=== PATIENT | female | born 1960 | race African-American/Black ===

== ENCOUNTER 2020-04-14 15:10 | Outpatient (CLI) | payer OTHER, SELFPAY ==
--- NOTE | ~2020-04-14 | MM_ITS ---
EXAMINATION: MM screening annie LT w susana HISTORY: Screening left mammogram, history of right mastectomy TECHNIQUE: Craniocaudal and mediolateral oblique 3-D tomosynthesis images were obtained and synthetic 2-D images were generated. CAD analysis was submitted and interpreted. COMPARISON: 01/23/2019, 11/23/2017, 11/30/2016 BREAST PARENCHYMAL COMPOSITION: The breasts are almost entirely fatty. FINDINGS: There are scattered stable calcifications of the left breast. Also seen are biopsy markers indicating areas of prior left breast biopsy. There is no evidence of suspicious mass, calcification, or architectural distortion to suggest malignancy in either breast. There has been no suspicious int erval change. IMPRESSION: 1. No mammographic evidence of malignancy. 2. Recommend routine screening mammography in one year. BI-RADS Category 2: Benign finding(s). Reviewed, dictated and finalized at location A.
--- NOTE | ~2020-04-14 | US_ITS ---
US thyroid INDICATION: Thyroid nodule follow-up TECHNIQUE: Real-time sonographic images of the thyroid gland were obtained. COMPARISON: 01/23/2019 FINDINGS: The right thyroid lobe measures 4.9 x 1.9 x 2.2 cm. The left thyroid lobe measures 4.6 x 1 .7 x 2.4 cm. There is an enlarging heterogeneous predominantly hypoechoic mass in the right lobe cira uring 1.6 x 1.4 x 0.9 cm compared with 1.3 x 1.2 x 0.7 cm on prior examination. This mass is solid, w ider than tall, ill-defined margins and no definite calcifications. There are additional nodules cira uring up to 6 mm in the right lobe and 1 cm in the left lobe which are stable and likely benign. IMPRESSION: 1. Enlargement of dominant hypoechoic mass of the right thyroid lobe measuring 1.6 cm, TR 4, moderat ann marie suspicious. Ultrasound-guided fine-needle aspiration biopsy recommended. Reviewed, dictated and finalized at location A. IMPRESSION: 1. Enlargement of dominant hypoechoic mass of the right thyroid lobe measuring 1.6 cm, TR 4, moderately suspicious. Ultrasound-guided fine-needle aspiration biopsy recommended.
== END 2020-04-14 15:11 | disposition home or self-care (01) ==
PROVIDERS: PCP Family Medicine Adolescent Medicine; Visit Provider Nurse Practitioner
DX: Z12.31 Encounter for screening mammogram for malignant neoplasm of breast (principal); E04.2 Nontoxic multinodular goiter
CPT/HCPCS: 76536; 77063; 77067

== ENCOUNTER → 2020-10-08 14:48 | Outpatient (CLI) | payer OTHER, SELFPAY ==
--- NOTE | ~2020-10-08 | US_ITS ---
EXAMINATION: US renal BI EXAM DATE: 10/08/2020 15:31 INDICATION: disorder of kidney and ureter . Abnormal lab. TECHNIQUE: Multiple grayscale and Doppler images of the kidneys were obtained (by a technologist who performed the scan) and subsequently reviewed. There is no prior study for comparison. FINDINGS: Right kidney: There is normal contour and echogenicity. It measures 9.7 x 3.7 x 5.0 centimeters. Th ere are no focal renal lesions identified. There is no hydronephrosis. Left kidney: There is normal contour and echogenicity. It measures 9.8 x 4.4 x 4.6 centimeters. The re are no focal renal lesions identified. There is no hydronephrosis. Bladder unremarkable. IMPRESSION: 1. Sonographically unremarkable kidneys. Reviewed, dictated and finalized at location B. 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
== END ==
PROVIDERS: PCP Family Medicine Adolescent Medicine; Visit Provider Internal Medicine Endocrinology, Diabetes & Metabolism
DX: N28.9 Disorder of kidney and ureter, unspecified (principal)
CPT/HCPCS: 76775

== ENCOUNTER → 2020-12-06 07:56 | Outpatient (CLI) | payer OTHER, SELFPAY ==
--- NOTE | ~2020-12-06 | US_ITS ---
US transvaginal DATE: 12/06/2020 08:35 INDICATION: Pelvic pain TECHNIQUE: Real-time imaging via transvaginal approach COMPARISON: None FINDINGS: The uterus measures 6.6 cm height. Central endometrial echo complex measures up to 9 mm AP dimension. No ovarian or adnexal mass lesion or abnormal pelvic free fluid collection is evident. IMPRESSION: No significant abnormality demonstrated Reviewed, dictated and finalized at Location A. Reviewed, dictated and finalized at location A. ICER
== END ==
PROVIDERS: PCP Family Medicine Adolescent Medicine; Visit Provider Nurse Practitioner
DX: R10.2 Pelvic and perineal pain (principal)
CPT/HCPCS: 76830

== ENCOUNTER → 2020-12-26 02:23 | Outpatient (CLI) | payer OTHER, SELFPAY ==
[2020-12-26 19:28] LABS: SARS-CoV-2 RNA PCR Negative
== END ==
PROVIDERS: PCP Family Medicine Adolescent Medicine; Visit Provider Obstetrics & Gynecology Gynecology
DX: Z01.812 Encounter for preprocedural laboratory examination (principal); Z20.822 Contact with and (suspected) exposure to COVID-19
CPT/HCPCS: C9803; U0003; U0005

== ENCOUNTER 2020-12-29 01:36 | Day surgery (SDC) | payer OTHER, SELFPAY ==
[2020-12-24 08:23] VITALS: BMI 40.4
--- NOTE | 2020-12-26 14:42 | WPDANESEPPF ---
Anes - Initial Pre Proc Eval Procedure: Operation Date: 12/29/20 07:30 Proposed Procedures p Hysteroscopy, Dilation and Curettage, Excision Vaginal Polyps - Brooke Osborn MD Date/Time: 12/26/20 14:42 Surgeon: Brooke Osborn MD Pre Op Diagnosis: thick endometrium, vaginal polyp Patient Data Age: 60 Gender: F Height: 1.66 m Weight: 112 kg Allergies Allergy/AdvReac Type Severity Reaction Status Date / Time No Known Allergies Allergy Mild Unverified 12/24/20 08:26 Home Medications Medication Instructions Recorded Confirmed Type bupropion HCl 300 mg PO DAILY 12/24/20 12/24/20 History ergocalciferol (vitamin D2) 1,250 mcg PO DAILY 12/24/20 12/24/20 History glimepiride 2 mg PO DAILY 12/24/20 12/24/20 History lisinopril 40 mg PO DAILY 12/24/20 12/24/20 History rosuvastatin 20 mg PO DAILY 12/24/20 12/24/20 History venlafaxine 150 mg PO DAILY 12/24/20 12/24/20 History Patient hx anesthesia problems: none Family hx anesthesia problems: none PMFSH Past Medical History Medical History (Updated 12/26/20 @ 14:42 by Jacinto Carreon DO) Anxiety Depression Diabetes type 2, controlled Hyperlipidemia Hypertension Family History Family History (Updated 12/06/16 @ 10:00 by DOCTOR UNKNOWN) Mother Family history of lung cancer Other Cerebrovascular accident Diabetes mellitus Family history of cardiovascular disease Hypertension Social History Social History Smoking packs per day: 0.5 Smoking cigarettes per day: 10.0 Years smoked: 20 Smoking pack-years: 10.00 Smoking status: Never smoker Smoking end date: 10/10/05 Alcohol intake: current Substance use: never Substance use type: does not use Living arrangements: alone Gender identity (if verbalized by the patient): Female Spiritual care concerns: No Anes - Eval Final PreProcedure Day of Procedure 12/26/20 14:42 Patient weight: morbidly obese Heart: regular rate and rhythm Lungs: clear to auscultation and normal air movement Airway: Mallampati scale class II Neurological: alert and oriented Last oral intake: >/= 8 hours ASA classification: III Emergent: no Anesthetic plan: proceed Anesthesia type and monitoring: general GIVS and standard monitoring Informed Consent: The patient's anesthetic plan and its attendant risks and benefits were discussed with the patient/family/POA. Questions were solicited and answers provided to the satisfaction of the patient/family/POA.
--- NOTE | 2020-12-29 05:54 | ECG_ITS ---
Measurements Intervals [place] Rate: 80 P: 40 HI: 211 QRS: -4 QRSD: 92 T: 66 QT: 373 QTc: 432 Interpretive Statements SINUS RHYTHM WITH FIRST DEGREE AV BLOCK LOW QRS VOLTAGE IN PRECORDIAL LEADS BORDERLINE R WAVE PROGRESSION, ANTERIOR LEADS BASELINE ARTIFACT- I, II, III, AVL ABNORMAL ECG Electronically Signed On 12-29-2020 7:57:22 CDT by Chuck Nava D.O.
[2020-12-29 07:00] VITALS: BP 152/87; PULSE 84; RESP 16; TEMP 36.3; O2SAT 100
[2020-12-29] MEDS: ACETAMINOPHEN 500 MG TABLET 1000 MG PO (07:03)
[2020-12-29] MEDS: LACTATED RINGERS 1,000 ML 30 ML IV CONT (07:04)
--- NOTE | 2020-12-29 07:15 | WPDHPUPDATE1 ---
History and Physical Update Update Date/Time: 12/29/20 07:15 History and Physical has been reviewed, including an updated exam of the patient. There are NO changes in the patient's condition. Risks, benefits, and alternatives have been discussed and questions answered. Patient agrees to proceed with procedure.
--- NOTE | 2020-12-29 07:16 | PM.HPGS ---
History of Present Illness History of Present Illness Consent: Risks, benefits, and alternatives have been discussed and questions answered. Patient agrees to proceed with procedure. Chief complaint: thick endometrium, vaginal polyp Narrative: Gena Pierre is a 60 year old female who was seen at her annual exam and was noted to have vaginal polyp on the left and right approximately fci into the vault. In addition the patient had pain on the right on exam so pelvic ultrasound was performed. The ultrasound showed no adnexal masses but did show the endometrial lining at 9mm. The patient has had no bleeding. Due to the location of the polyps it is recommended to remove them in the operating room due to the risk of bleeding. In addition we will evaluate the thickened endometrial lining with D&C hysteroscopy. Risks of infection, bleeding, perforation, and possible pathology were reviewed. Patient questions were answered and patient agrees to proceed. Review of Systems Review of Systems: Narrative: not repeated day of surgery; patient states no changes in status PMFSH Past Medical History Medical History (Updated 12/29/20 @ 07:21 by Brooke Osborn MD) Anxiety Depression Diabetes type 2, controlled Hyperlipidemia Hypertension Status post hysteroscopy 2004 Surgical History Surgical History (Updated 12/29/20 @ 07:19 by Brooke Osborn MD) S/P right mastectomy s/p chemo Family History Family History (Updated 12/06/16 @ 10:00 by DOCTOR UNKNOWN) Mother Family history of lung cancer Other Cerebrovascular accident Diabetes mellitus Family history of cardiovascular disease Hypertension Social History Social History Smoking packs per day: 0.5 Smoking cigarettes per day: 10.0 Years smoked: 20 Smoking pack-years: 10.00 Smoking status: Never smoker Smoking end date: 10/10/05 Alcohol intake: current Substance use: never Substance use type: does not use Living arrangements: alone Gender identity (if verbalized by the patient): Female Spiritual care concerns: No Meds Home Medications and Allergies Home Medications Medication Instructions Recorded Confirmed Type bupropion HCl 300 mg PO DAILY 12/24/20 12/24/20 History ergocalciferol (vitamin D2) 1,250 mcg PO DAILY 12/24/20 12/24/20 History glimepiride 2 mg PO DAILY 12/24/20 12/24/20 History lisinopril 40 mg PO DAILY 12/24/20 12/24/20 History rosuvastatin 20 mg PO DAILY 12/24/20 12/24/20 History venlafaxine 150 mg PO DAILY 12/24/20 12/24/20 History Allergies Allergy/AdvReac Type Severity Reaction Status Date / Time No Known Allergies Allergy Mild Unverified 12/24/20 08:26 Exam Const: General: healthy appearing and alert Orientation/consciousness: patient oriented x3 Resp: Effort & Inspection: normal respiratory effort Auscultation: clear to auscultation bilaterally Cardio: Rate: regular rate Rhythm: regular rhythm GI: GI Palp: Yes Soft to palpation, No Tenderness to palpation present (GI) and No Palpable mass present : External Female Exam: normal external appearance Speculum Exam - Vagina: normal appearance of the vagina, normal vaginal discharge and other (1.5 cm polyp on left and .5 cm polyp on right wall) Speculum Exam - Cervix: normal appearance of the cervix Bimanual exam- vagina & uterus: uterine size normal and consistency normal Bimanual Exam- Adnexa, other: normal adnexae and No adnexal tenderness (tender on right-mild) Neuro: General: patient oriented x3 Assessment and Plan Assessment and plan (1) Vaginal polyp: Code(s): N84.2 - Polyp of vagina Status: Acute Assessment and Plan: plan excision (2) Thickened endometrium: Code(s): R93.89 - Abnormal findings on diagnostic imaging of other specified body structures Status: Acute Assessment and Plan: plan D&C hysteroscopy
[2020-12-29 07:18] LABS: Glucose Point of Care 157 (65-105)
--- NOTE | 2020-12-29 07:50 | SUR.PREOP ---
BMP SPECIMEN HEMOLYZED; TEST WAIVED BY DR. LERMA. PT BEDSIDE GLUCOSE 157. 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
[2020-12-29 08:12] VITALS: BP 137/74; PULSE 88; RESP 16; O2SAT 92
--- NOTE | 2020-12-29 08:17 | P.OP_ITS ---
Procedure Note - Detailed Date of procedure: 12/29/20 Pre-op diagnosis: thick endometrium, vaginal polyp Post-op diagnosis: same Procedure performed: excision of vaginal polyps x 2; D&C hysteroscopy Description of procedure: The patient was taken to the operating room and placed in the dorsal lithotomy position under anesthesia. She was prepped and draped in usual sterile fashion. [place] speculum was placed in the vagina. The right vaginal polyp was grasped with a pickup and excised using Bovie cautery. The left vaginal polyp was grasped with forceps and excised using Bovie cautery. Good hemostasis was noted at both sites. The cervix was grasped on the anterior lip with a tenaculum. The sound was placed and not able to enter past 3cm. The os Finders are opened and used to open the internal cervical os. The cervix is serially dilated with Hegar. The uterus is sounded to 8cm. The hysteroscope was placed with no abnormalities noted. A medium sharp curette was used to sharply curette until a good uterine cry was noted in all areas. Minimal material was obtained consistent with the atrophic appearance. All instruments are removed and the patient is awakened from anesthesia. She was taken to recovery in stable condition. Sponge, needle, and instrument counts are correct per the OR staff. Anesthesia: MAC and local Surgeon: Brooke Osborn MD Estimated blood loss (mL): 5 Drains: No Packing: No Pathology: yes (polyps-larger from right; endometrial curettings) Complications: No immediate complications Condition: stable Disposition: PACU Findings: papillary polyp Right vaginal sidewall; flat polyp left vaginal sidewall; cervix very stenotic; no abnomalities on hysteroscopy
[2020-12-29 08:33] LABS: Glucose Point of Care 139 (65-105)
[2020-12-29 08:40] VITALS: BP 134/77; PULSE 83; RESP 16; O2SAT 95
[2020-12-29] MEDS: oxyCODONE HCL (*CRX) 5 MG TAB IR PO (08:40)
[2020-12-29 09:10] VITALS: BP 143/69; PULSE 79; RESP 16
== END 2020-12-29 09:17 | disposition home or self-care (01) ==
PROVIDERS: PCP Family Medicine Adolescent Medicine; Visit Provider Obstetrics & Gynecology Gynecology
PROC: 0U5B8ZZ Destruction of Endometrium, Via Natural or Artificial Opening Endoscopic (ICD-10-PCS; CPT 58563; principal; 2020-12-29 07:30)
DX: N84.2 Polyp of vagina (principal); I10 Essential (primary) hypertension; E78.5 Hyperlipidemia, unspecified; E11.9 Type 2 diabetes mellitus without complications; F41.8 Other specified anxiety disorders; Z87.891 Personal history of nicotine dependence; E66.01 Morbid (severe) obesity due to excess calories; Z68.39 Body mass index [BMI] 39.0-39.9, adult; Z79.84 Long term (current) use of oral hypoglycemic drugs
CPT/HCPCS: 58558; 57135; 36415; 82948; 88305; 93005; A9270; C9803; J2704; J3010; J7030; J7120; U0003; U0005

== ENCOUNTER → 2021-01-10 11:20 | Outpatient (CLI) | payer OTHER, SELFPAY ==
--- NOTE | ~2021-01-10 | US_ITS ---
EXAMINATION: US renal BI DATE: 01/10/2021 11:40 INDICATION: Chronic kidney disease stage III. TECHNIQUE: Multiple ultrasound grayscale images of the kidneys were obtained. COMPARISON: Ultrasound 10/08/2020 FINDINGS: The right kidney measures 9.0 x 4.2 x 5.0 cm. The left kidney measures 9.2 x 4.9 x 5.0 cm. The kidney s demonstrate normal parenchymal echogenicity. There is no hydronephrosis. The bladder is normal. IMPRESSION: 1. Normal kidneys. No hydronephrosis. Reviewed, dictated and finalized at location A.
== END ==
PROVIDERS: PCP Family Medicine Adolescent Medicine; Visit Provider Specialist
DX: N18.30 Chronic kidney disease, stage 3 unspecified (principal)
CPT/HCPCS: 76775

== ENCOUNTER → 2021-04-25 10:20 | Outpatient (CLI) | payer OTHER, SELFPAY ==
--- NOTE | ~2021-04-25 | MM_ITS ---
EXAMINATION: MM screening annie LT w susana HISTORY: Screening left mammogram, history of right mastectomy TECHNIQUE: Craniocaudal and mediolateral oblique 3-D tomosynthesis images were obtained and synthetic 2-D images were generated. CAD analysis was submitted and interpreted. COMPARISON: 04/14/2020, 01/23/2019, 11/23/2017 BREAST PARENCHYMAL COMPOSITION: The breasts are almost entirely fatty. FINDINGS: Scattered benign-appearing calcifications are present. There is no evidence of suspicious m ass, calcification, or architectural distortion to suggest malignancy in either breast. There has bee n no suspicious interval change. IMPRESSION: 1. No mammographic evidence of malignancy. 2. Recommend routine screening mammography in one year. BI-RADS Category 2: Benign finding(s). Reviewed, dictated and finalized at location A.
== END ==
PROVIDERS: PCP Family Medicine Adolescent Medicine; Visit Provider Nurse Practitioner
DX: Z12.31 Encounter for screening mammogram for malignant neoplasm of breast (principal)
CPT/HCPCS: 77063; 77067

== ENCOUNTER → 2022-05-01 07:50 | Outpatient (CLI) | payer OTHER, SELFPAY ==
--- NOTE | ~2022-05-01 | MM_ITS ---
EXAMINATION: MM screening annie LT w susana HISTORY: Screening TECHNIQUE: Craniocaudal and mediolateral oblique 3-D tomosynthesis images were obtained and synthetic 2-D images were generated. CAD analysis was submitted and interpreted. COMPARISON: Comparison to multiple prior studies sequentially, with oldest reviewed study dated 11/23. BREAST PARENCHYMAL COMPOSITION: Breast composed of scattered areas of fibroglandular density FINDINGS: Left breast asymmetries are unchanged. There are tissue markers from previous benign biopsi es. There is no evidence of suspicious mass, calcification, or architectural distortion to suggest ma lignancy in either breast. There has been no suspicious interval change. IMPRESSION: 1. No mammographic evidence of malignancy. 2. Recommend routine screening mammography in one year. BI-RADS Category 2: Benign finding(s). Reviewed, dictated and finalized at location A.
== END ==
PROVIDERS: PCP Family Medicine Adolescent Medicine; Visit Provider Nurse Practitioner
DX: Z12.31 Encounter for screening mammogram for malignant neoplasm of breast (principal)
CPT/HCPCS: 77063; 77067

== ENCOUNTER 2022-06-04 08:01 | Outpatient (CLI) | payer OTHER, SELFPAY ==
--- NOTE | ~2022-06-04 | NM_ITS ---
EXAMINATION: NM parathyroid w imaging DATE: 06/04/2022 12:17 INDICATION: Primary hyperparathyroidism. TECHNIQUE: 21.5 mCi Tc99m sestamibi was administered intravenously. Anterior images of the neck were obtained immediately and at 2 hours. SPECT images of the neck were obtained. COMPARISON: None. FINDINGS: There is no focus of persistent activity in the area of the thyroid or mediastinum to sugge st parathyroid adenoma. IMPRESSION: 1. No evidence of a parathyroid adenoma. Reviewed, dictated and finalized at location A.
== END 2022-06-04 08:02 | disposition home or self-care (01) ==
PROVIDERS: PCP Family Medicine Adolescent Medicine; Visit Provider Internal Medicine Nephrology
DX: E21.0 Primary hyperparathyroidism (principal)
CPT/HCPCS: 78070; A9500

== ENCOUNTER → 2022-09-10 15:00 | Outpatient (CLI) | payer OTHER, SELFPAY ==
--- NOTE | ~2022-09-10 | DEXA_ITS ---
Bone Density Report Name: LIAM VILLAFANA Age: 62 Sex: Female Ethnicity: Black Date of : 1960 Indication: postmenopausal; screening for osteoporosis; Referring Provider: Tami He Study: Bone densitometry was performed. Exam Date: September 10, 2022 Accession number: [id number] Bone Density: Region BMD T-score Z-score Classification AP Spine (L1-L4) 1.119 0.7 1.5 Normal Femoral Neck (Left) 0.741 -1.0 -0.3 Normal Total Hip (Left) 0.933 -0.1 0.3 Normal Femoral Neck (Right) 0.715 -1.2 -0.5 Osteopenia Total Hip (Right) 0.959 0.1 0.4 Normal Total Hip Mean 0.946 0.0 0.4 Normal World Health Organization criteria for BMD impression classify patients as: Normal (T-score at or above -1.0), Osteopenia (T-score between -1.0 and -2.5), or Osteoporosis (T-score at or below -2.5). 10-year Fracture Risk(1): Major Osteoporotic Fracture 3.2% Hip Fracture 0.2% Reported Risk Factors: [place] (Black), Neck BMD=0.715, BMI=39.1 (1) FRAX(R) Version 3.08. Fracture probability calculated for an untreated patient. Fracture probability may be lower if the patient has received treatment. Previous Exams: Region Exam Age BMD T-score BMD Change BMD Change Date g/cm2 vs Baseline vs Previous AP Spine(L1-L4) 09/10/2022 62 1.119 0.7 -0.132* -0.104* 01/23/2019 58 1.223 1.6 -0.029* -0.035* 11/15/2014 54 1.258 1.9 0.006 -0.012 08/21/2012 51 1.269 2.0 0.018 0.018 02/23/2008 47 1.251 1.9 Total Hip(Left) 09/10/2022 62 0.933 -0.1 -0.090* -0.094* 01/23/2019 58 1.027 0.7 0.004 -0.084* 11/15/2014 54 1.111 1.4 0.088* -0.004 08/21/2012 51 1.115 1.4 0.092* 0.092* 02/23/2008 47 1.023 0.7 Total Hip(Right) 09/10/2022 62 0.959 0.1 -0.052* -0.090* 01/23/2019 58 1.049 0.9 0.039* -0.058* 11/15/2014 54 1.107 1.4 0.097* 0.013 08/21/2012 51 1.094 1.2 0.084* 0.084* 02/23/2008 47 1.010 0.6 *Denotes significance at 95% confidence level, LSC for AP Spine = 0.022 g/cm2, LSC for Total Hip = 0.027 g/cm2 Clinical Information Provided by Patient: Has used the following medications: Vitamin D Patient maximum height was 65.5 Menopause Age: 48 No regular weight bearing exercise Does not regularly consume dairy products Onset of menses at age 10 Number
--- NOTE | ~2022-09-10 | US_ITS ---
US thyroid INDICATION: Nontoxic thyroid goiter TECHNIQUE: Real-time sonographic images of the thyroid gland were obtained. COMPARISON: Ultrasound dated 04/14/2020 FINDINGS: The right thyroid lobe measures 4.6 x 2.2 x 2.5 cm. The left thyroid lobe measures 5.2 x 2 x 2 cm. There is diffusely heterogeneous thyroid echotexture with bilateral thyroid nodules. Largest dominant nodule in the right lobe measures 1.9 x 1.5 x 1.8 cm is mixed solid and cystic, hypoechoic, wider than tall, smoothly marginated without internal echogenic foci, TR 3, mildly suspicious. This does not meet sonographic criteria for biopsy. Recommend follow-up ultrasound in 12 months. Isthmus m easures 9 mm. In the left lobe there is a solid hypoechoic mass which is wider than tall, irregular m argins measuring 10 x 7 x 8 mm, TR 4. This does not meet sonographic criteria for biopsy. Recommend f ollow-up ultrasound. IMPRESSION: 1. Multiple bilateral thyroid nodules which do not meet sonographic criteria for biopsy. Recommend f ollow-up ultrasound in 6-12 months to assess stability. 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 Multiple bilateral thyroid nodules which do not meet sonographic criteria f or biopsy. Recommend follow-up ultrasound in 6-12 months to assess stability.
== END ==
PROVIDERS: PCP Family Medicine Adolescent Medicine; Visit Provider Internal Medicine Endocrinology, Diabetes & Metabolism
DX: E21.0 Primary hyperparathyroidism (principal); E04.2 Nontoxic multinodular goiter; M85.851 Other specified disorders of bone density and structure, right thigh
CPT/HCPCS: 76536; 77080

== ENCOUNTER 2023-03-30 16:58 | Inpatient (IN) | payer OTHER, SELFPAY ==
[2023-03-30] VITALS (9 sets, daily range): BP systolic 157–187; BP diastolic 74–107; PULSE 91–109; RESP 15–21; TEMP 36.3–37.3; O2SAT 99–100; BMI 37.2
--- NOTE | ~2023-03-30 | CT_ITS ---
EXAMINATION: CT brain wo con DATE: 03/30/2023 19:07 INDICATION: fall, head trauma . TECHNIQUE: Computed tomography (CT) of the head was performed without intravenous contrast. The mA wa s adjusted according to patient size. Iterative reconstruction technique was employed. The dose-lengt h product was 605.33 mGy-cm. COMPARISON: None. FINDINGS: No acute intracranial hemorrhage or extra-axial fluid collection. No hydrocephalus, mass, or herniation. No acute ischemic infarct. Unremarkable dural venous sinus attenuation. No acute osseous abnormality. The aerated spaces are clear. Mild atrophy and moderate chronic white matter change. Atherosclerotic intracranial calcification. Ol d left basal ganglia lacunar infarct. IMPRESSION: No acute intracranial process. Reviewed, dictated and finalized at location K.
--- NOTE | ~2023-03-30 | XR_ITS ---
EXAMINATION: XR chest 2V Exam Date/Time: 03/30/2023 19:05 CDT HISTORY: falls, SAYS SHE HAS BEEN FALLING ALOT LATELY WITH LEG Comparison: . RESULT: Lines, tubes, and devices: Right axillary clips. Lungs and pleura: Clear. Cardiomediastinal silhouette: Unremarkable. Other: Mild anterior wedge deformity of multiple mid thoracic vertebral bodies. No acute upper abdom inal finding. Right mastectomy. IMPRESSION: No acute cardiopulmonary process. Very mild anterior wedge deformity of multiple mid thoracic vertebr al bodies, presumably chronic, unless accompanied by acute pain/tenderness. Reviewed, dictated and finalized at location K. IMPRESSION: No acute cardiopulmonary process. Very mild anterior wedge deformity of multipl e mid thoracic vertebral bodies, presumably chronic, unless accompanied by acut e pain/tenderness.
--- NOTE | ~2023-03-30 | XR_ITS ---
Portable chest x-ray Comparison: 04/01/2023 Clinical History: Acute renal sufficiency Findings: Lungs are clear, without focal consolidation or pleural effusion. Cardiomediastinal silho uette is stable. Bones and soft tissues are unremarkable. Impression: Normal chest. Reviewed, dictated and finalized at location . Impression: Normal chest.
--- NOTE | ~2023-03-30 | XR_ITS ---
XR chest port-a-cath/central DATE: 04/13/2023 16:33 INDICATION: Insertion of Duraflow permacath TECHNIQUE: Portable supine AP view on 04/13/2023 at 1610 hours COMPARISON: 04/13/2023 chest Port-A-Cath FINDINGS: Right internal jugular dual-lumen catheter, lower tip overlying superior vena cava. No evid ence of pneumothorax. There is cardiomegaly. Is pulmonary vascular congestion. Mild bilateral predominantly central pulmona ry infiltrates suggesting pulmonary edema. Mild prominence of the minor fissure suggesting subpleural edema. There is left lower lobe infiltrate or atelectasis, minimal right basilar infiltrate or atele ctasis. There is minimal if any pleural effusion. Surgical clips overlie the right axillary area; the right breast shadow is not seen. IMPRESSION: Right internal jugular Duraflow catheter placement, lower tip overlying superior vena cav a Cardiomegaly, congestive changes Reviewed, dictated and finalized at Location A. Reviewed, dictated and finalized at location A. IMPRESSION: Right internal jugular Duraflow catheter placement, lower tip overl osmin superior vena cava Cardiomegaly, congestive changes
--- NOTE | ~2023-03-30 | MR_ITS ---
EXAMINATION: MR shoulder LT wo con DATE: 03/31/2023 16:09 INDICATION: Left shoulder pain, weakness and decreased range of motion TECHNIQUE: Magnetic resonance imaging (MRI) of the left shoulder was performed without intravenous co ntrast. Sequences included axial PD-weighted FS FSE, coronal oblique PD-weighted FS FSE, coronal obli que T2-weighted FS FSE, sagittal PD-weighted FS FSE, and sagittal T1-weighted SE. COMPARISON: Left shoulder radiograph dated 03/30/2023 FINDINGS: Evaluation mildly limited by varying amounts of motion artifact or blurring on multiple sequences. Coracoacromial arch: The acromion undersurface is curved in morphology (type II). Small to moderate-sized anterior subacro mial spur at the acromial insertion of the otherwise normal coracoacromial ligament. Moderate acromio clavicular osteoarthritis. Rotator cuff: Mild supraspinatus tendinopathy without discrete tear. The subscapularis, infraspinatus and teres min or tendons are normal. There is subtle patchy increased fluid signal throughout the rotator cuff musc ulature, the deltoid muscle and at the short head of the biceps brachii. Biceps tendon, glenoid labrum and glenohumeral cartilage: Long head of the biceps tendon is normal. The glenoid labrum and glenohumeral cartilage are normal.. Fluid: Physiologic amount of fluid in the glenohumeral joint and biceps tendon sheath. No loose osteochondr al bodies. Small amount of fluid in the subacromial/subdeltoid bursa suboptimal due to mild bursitis or reactive fluid related to the adjacent muscular edema of the underlying rotator cuff musculature. Bones: Normal marrow signal with no edema, fracture or abnormal marrow replacing process. IMPRESSION: 1. Nonspecific subtle patchy increased fluid signal in the musculature of the right shoulder girdle w hich has a wide differential. The reported history of an extended period of being down post fall resu lting possibility of rhabdomyolysis. Differential would include post traumatic muscle strain, contusi on or other nonspecific myositis. 2. Mild supraspinatus tendinopathy without discrete tear. 3. Increased fluid in the subacromial/subdeltoid bursa which could be due to mild bursitis or reactiv e fluid related to the underlying myopathy. 4. Moderate acromioclavicular osteoarthritis. Reviewed, dictated and finalized at location A. IMPRESSION: 1. Nonspecific subtle patchy increased fluid signal in the musculature of the r ight shoulder girdle which has a wide differential. The reported history of an extended period of being down post fall resulting possibility of rhabdomyolysis . Differential would include post traumatic muscle strain, contusion or other n onspecific myositis. 2. Mild supraspinatus tendinopathy without discrete tear. 3. Increased fluid in the subacromial/subdeltoid bursa which could be due to mi ld bursitis or reactive fluid related to the underlying myopathy. 4. Moderate acromioclavicular osteoarthritis.
--- NOTE | ~2023-03-30 | MR_ITS ---
EXAMINATION: MR brain/brain stem wo con DATE: 04/10/2023 07:42 INDICATION: 8 hours of unconsciousness TECHNIQUE: Magnetic resonance imaging (MRI) of the brain and brainstem was performed without intraven ous contrast. Sequences included sagittal and axial T1-weighted SE, axial diffusion-weighted FS SE, a xial 3D SWAN, axial T2-weighted FLAIR, and axial T2-weighted FSE. Apparent diffusion coefficient (ADC ) maps were created. COMPARISON: Head CT dated 03/30/2023 FINDINGS: There are no areas of restricted diffusion to suggest acute infarction. No intracranial hemorrhage or abnormal intracranial mass lesion. There are scattered areas of nonspecific increased T2-weighted si gnal intensity in the cerebral and pontine white matter, predominantly involving the deep and periven tricular white matter. There are no intraparenchymal signal abnormalities seen on the other pulse seq uences. The ventricles are symmetric and normal in size. There are no abnormal extra-axial fluid flora ections. Flow voids are seen in the cerebral arteries on the T2-weighted sequences consistent with th eir expected patency. Visualized orbits and soft tissues are unremarkable. IMPRESSION: 1. Moderate scattered nonspecific periventricular predominant white matter T2 hyperintensity likely r elated to chronic small vessel ischemic disease. No other acute intracranial process. Reviewed, dictated and finalized at location A. IMPRESSION: 1. Moderate scattered nonspecific periventricular predominant white matter T2 h yperintensity likely related to chronic small vessel ischemic disease. No other acute intracranial process.
--- NOTE | ~2023-03-30 | US_ITS ---
US renal BI 03/31/2023 16:21 Procedure: Realtime transabdominal ultrasound of the kidneys and bladder. Indication: Acute renal insufficiency Comparison: 01/11/2020 Findings: Renal echotexture is normal bilaterally without hydronephrosis, contour deforming mass or r enal calculus. The right kidney measures 10.4 cm and left kidney measures 10 cm. Bladder is decompres sed by [place] catheter. Impression: 1: Unremarkable renal ultrasound. No stones, masses or hydronephrosis. Reviewed, dictated and finalized at location L. Impression: 1: Unremarkable renal ultrasound. No stones, masses or hydronephrosis.
--- NOTE | ~2023-03-30 | XR_ITS ---
EXAMINATION: XR fl guide central line place DATE: 04/03/2023 INDICATION: Hemodialysis catheter insertion TECHNIQUE: Single fluoroscopic image of the lateral chest was obtained during procedure performed by Dr. Man. Radiologist was not present for the imaging or procedure. The amount of fluoroscopy time us ed during this procedure was 0.1 minutes. COMPARISON: None. FINDINGS/IMPRESSION: RIGHT central venous access with a catheter or wire advanced to the right atrium. Reviewed, dictated and finalized at location A.
--- NOTE | ~2023-03-30 | XR_ITS ---
Portable chest x-ray Comparison: 04/02/2023 Clinical History: Line placement Findings: Right-sided central venous line is in satisfactory position. No pneumothorax. Probable pb cified right upper lobe granulomas. Lungs are otherwise clear, without focal consolidation or pleural effusion. Cardiomediastinal silhouette is stable. Bones and soft tissues are unremarkable. Impression: Right-sided support line in satisfactory position, as above. No pneumothorax. Essentially clear lungs. Reviewed, dictated and finalized at location M. Impression: Right-sided support line in satisfactory position, as above. No pneumothorax. Essentially clear lungs.
--- NOTE | ~2023-03-30 | XR_ITS ---
EXAMINATION: XR chest 1V portable 04/01/2023 08:57 INDICATION: Acute renal insufficiency PROCEDURE: AP portable chest COMPARISON: 03/31/2023 FINDINGS: The lungs are clear. The cardiomediastinal silhouette is within normal limits. There are no pleural effusions. There is no pneumothorax suspected. There are surgical clips consistent with right axillary lymph node dissection. IMPRESSION: 1: NO ACUTE CARDIOPULMONARY DISEASE. Reviewed, dictated and finalized at location []
--- NOTE | ~2023-03-30 | XR_ITS ---
EXAMINATION: XR fl guide central line place DATE: 04/13/2023 15:14 INDICATION: Central line placement. TECHNIQUE: 2 intraoperative fluoroscopic views of the chest were obtained. I was not present. Fluoros copy exposure time was 8 seconds. COMPARISON: Chest single view 04/03/2023 FINDINGS: There is a right internal jugular central venous catheter with tip at superior cavoatrial j unction. There are surgical clips in right axilla. IMPRESSION: 1. Central line tip at superior cavoatrial junction. Reviewed, dictated and finalized at location A.
--- NOTE | ~2023-03-30 | XR_ITS ---
EXAMINATION: XR chest 1V 03/31/2023 16:07 INDICATION: Acute renal insufficiency PROCEDURE: 2 view chest COMPARISON: 03/30/2023 FINDINGS: The lungs are clear. The cardiomediastinal silhouette is within normal limits. There are no pleural effusions. There is no pneumothorax suspected. There are surgical clips in the right axi lla. IMPRESSION: 1: NO ACUTE CARDIOPULMONARY DISEASE. Reviewed, dictated and finalized at location L.
--- NOTE | ~2023-03-30 | XR_ITS ---
EXAM: XR shoulder LT min 2V DATE: 03/30/2023 21:09 HISTORY: left pain/weakness . COMPARISON: None available. FINDINGS: Decreased mineralization. No fracture or dislocation. No lytic or blastic lesion. Moderate AC joint and mild glenohumeral joint osteoarthritis. No erosion or periosteal change. Soft tissues w ithin normal limits. IMPRESSION: No acute osseous finding in the left shoulder. Reviewed, dictated and finalized at location K.
--- NOTE | ~2023-03-30 | CT_ITS ---
EXAMINATION: CT cervical spine wo con DATE: 03/30/2023 19:23 INDICATION: fall TECHNIQUE: Computed tomography (CT) of the cervical spine was performed without intravenous contrast. Automated exposure control and iterative reconstruction technique were employed. The dose-length pro duct was 330.26 mGy-cm. COMPARISON: None. FINDINGS: Vertebral Body Alignment: Intact. Craniocervical and atlantoaxial alignment: Moderate degenerative change. Alignment intact. Osseous structures/fracture: No evidence of a lytic or blastic process in the visualized spine. No e vidence of acute fracture. . Cervical soft tissues: The paraspinal soft tissues planes are maintained. Degenerative changes: Degenerative changes, without severe neural foraminal or central canal narrowin g. IMPRESSION: No acute fracture or traumatic malalignment in the cervical spine. Multiple sub-6 mm pulmonary nodule s, recommend nonemergent outpatient low-dose noncontrast CT of the chest to evaluate the lungs in the ir entirety. Reviewed, dictated and finalized at location K. IMPRESSION: No acute fracture or traumatic malalignment in the cervical spine. Multiple sub -6 mm pulmonary nodules, recommend nonemergent outpatient low-dose noncontrast CT of the chest to evaluate the lungs in their entirety.
--- NOTE | 2023-03-30 17:52 | ECG_ITS ---
Measurements Intervals [place] Rate: 103 P: 44 SC: 184 QRS: 3 QRSD: 92 T: 80 QT: 325 QTc: 427 Interpretive Statements SINUS TACHYCARDIA POSSIBLE LEFT ATRIAL ENLARGEMENT [-0.1mV P-WAVE IN V1/V2] NONSPECIFIC ST & T-WAVE ABNORMALITY ABNORMAL RHYTHM ECG COMPARED TO ECG 12/29/2020 07:30:41 SINUS TACHYCARDIA NOW PRESENT T-WAVE ABNORMALITY NOW PRESENT Electronically Signed On 03-30-2023 20:01:56 CDT by Bethany Lugo M.D.
--- NOTE | 2023-03-30 18:10 | ED.WEAKNESS ---
HPI - Weakness General Chief complaint: Weakness Stated complaint: Unable to stand and walk. Time Seen by Provider: 03/30/23 18:10 History of Present Illness HPI Narrative: Patient is a 62-year-old female with a history of hypertension, diabetes, hyperlipidemia, CKD presenting after a couple of falls. Patient lives at home alone. Her family is at bedside who is assisting with the history. States that she had a fall 2 days ago and she did strike her head. States that she lost consciousness at this time. Patient then had another fall yesterday afternoon. States that she was leaning down to bulk picker some ice when she lost her balance. States that she fell to the floor and she was unable to get up due to weakness. States she was able to drag herself to her couch and was eventually able to send a text to her family approximately 18 hours after falling. Patient states that she feels very thirsty. She denies headache, vision changes, focal numbness or weakness, chest pain, shortness of breath, cough, abdominal pain, nausea or vomiting, diarrhea, dysuria, leg swelling. Related Data Home Medications Medication Instructions Recorded Confirmed labetalol 200 mg tablet 200 mg PO Q12H 08/26/22 03/30/23 Allergies Allergy/AdvReac Type Severity Reaction Status Date / Time niacin AdvReac Unknown flushing Verified 03/30/23 18:33 Review of Systems Review of Systems: All systems reviewed & are unremarkable except as noted in HPI and below PMFSH Past Medical History Medical History Anxiety Depression HX: breast cancer (2004) 2004 Hypertension Normal colonoscopy 07/20 Vaginal polyp Surgical History Surgical History History of hysteroscopy 2020 S/P right mastectomy s/p chemo Family History Family History Mother Family history of lung cancer Hypertension Grandparent Cerebrovascular accident Diabetes mellitus Hypertension Son Family history of cardiovascular disease Heart disease Hypertension Father Hypertension Social History Social History Smoking packs per day: 0.5 Smoking cigarettes per day: 10.0 Years smoked: 20 Smoking pack-years: 10.00 Smoking status: Former smoker Tobacco type: cigarettes Second hand tobacco smoke exposure: Yes Smoking end date: 10/10/05 Alcohol intake: never Alcohol use details: Very seldom Substance use: never Substance use type: does not use Lack of Transportation: No Lack of Food: Never True Current Housing: I Have Housing Concerned About Future Housing: No Difficulty Paying Gas/Electric Bills: No Difficulty Paying for Meds: No Currently Unemployed: No Education: High School Diploma/GED Difficulty w/ Childcare or Family Care: No Living arrangements: alone Occupation/Education: occupation Gender identity (if verbalized by the patient): Female Sexual Orientation (if Verbalized by the Patient): Straight or Heterosexual Spiritual care concerns: No Agree to blood products: Yes Exam Narrative: GENERAL: Well-appearing, well-nourished, and in no acute distress. Pleasant and cooperative HEAD: Normocephalic, atraumatic. EYES: PERRLA and EOMI. ENT: Nares clear, no rhinorrhea or epistaxis. Mucous membranes dry NECK: Supple. CHEST: Clear to auscultation. No respiratory distress. HEART: Tachycardic, regular rhythm, normal peripheral pulses ABDOMEN: Soft, nontender, nondistended EXTREMITIES: Normal range of motion. No edema. SKIN: Warm, dry, no rash. NEURO: No focal deficits. Alert and oriented x3. 5 out of 5 strength in all extremities, no sensory deficits, no facial droop, no dysarthria or aphasia PSYCH: Normal mood and affect. Course Vital Signs Vital signs: Vital Signs Tempera
[2023-03-30 18:35] LABS: Hemoglobin 14.4 g/dL (12.0-15.0); Mean Corpuscular Hemoglobin 28.8 pg (26-34); Mean Platelet Volume 10.4 fl (7.4-10.4); Platelet Count Result 287 k/mm3 (150-375); Red Cell Distribution Width 13.9 % (11.5-14.5); White Blood Count 21.6 K/mm3 (4.5-10.0)
[2023-03-30 18:48] LABS: Appearance Urine Cloudy (Clear); Bacteria Urine None Seen /hpf; Bilirubin Urine Negative (Negative); Blood Urine 3+ (Negative); Color Urine Dark Yellow (Yellow); Glucose Urine UA Trace mg/dL (Negative); Hyaline Casts Urine Present /lpf; Ketones Urine Trace mg/dL (Negative); Leukocyte Esterase Ur Trace LEU/UL (Negative); Nitrate Urine Negative (Negative); Protein Urine 3+ mg/dL (Negative); RBC Urine 0-2 /hpf (0-2); Specific Grav Ur 1.014 (1.001-1.035); Squamous Epithelial Cell Urine Few /hpf (Few); WBC Urine 0-5 /hpf; pH Urine 5.5 (5.0-9.0)
[2023-03-30 18:49] LABS: Add Urine Microscopic? YES
[2023-03-30] MEDS: SODIUM CHLORIDE 0.9% IV 1,000 ML 999 ML IV CONT ×2 (19:00→19:32)
[2023-03-30 19:05] LABS: Band Neutrophils Percent 2 % (0-6); Lymphocytes Absolute Manual 0.86 K/mm3 (1.1-4.5); Neutrophils Absolute Manual 20.73 K/mm3 (1.7-7.2); Neutrophils Percent Manual 94 % (46-73); Total Cells Counted 100
[2023-03-30 19:06] LABS: Platelet Estimate Adequate (Adequate); Schistocytes None Seen (NORMAL)
[2023-03-30 19:09] LABS: Alanine Aminotransferase 244 U/L (6-35); Albumin Level 4.6 g/dL (3.5-5.1); Alkaline Phosphatase 93 U/L (38-126); Anion Gap 12 mmol/L (8-16); Blood Urea Nitrogen 44 mg/dL (7-17); Calcium 11.5 mg/dL (8.4-10.2); Carbon Dioxide 19 mmol/L (22-30); Chloride 106 mmol/L (98-107); Estimated CRCL calculation 15 ml/min; Estimated Glomerular Filt Rate 13; Glucose 270 mg/dL (65-110); Potassium 4.4 mmol/L (3.4-5.0); Sodium 137 mmol/L (137-145)
[2023-03-30 19:18] LABS: Prothrombin Time 13.6 Seconds (11.1-14.7)
[2023-03-30 19:25] LABS: Lactic Acid Reflex 1.9 mmol/L (0.7-2.0)
[2023-03-30 19:28] LABS: Aspartate Amino Transferase 835 U/L (14-36)
[2023-03-30 19:28] LABS: Lipase 73 U/L (23-300); Magnesium 2.6 mg/dL (1.6-2.3)
[2023-03-30 19:45] LABS: Troponin I 0.055 ng/mL (0.000-0.034)
[2023-03-30] MEDS: LABETALOL HCL INJ 100 MG/20 ML VIAL 20 MG IV PUSH ×2 (19:50→20:51)
[2023-03-30 20:00] LABS: Creatine Kinase > 16000 U/L (30-135)
--- NOTE | 2023-03-30 22:10 | ADMGEN ---
This patient, Gena Pierre, was admitted to IMU Room 209-. Patient/family oriented to hospital policies and general routines including ID bracelet, bed and alarms, visiting hours, pain management, procedures, bathroom and other care routines, personal items, smoking policy, room service/diet, and visiting hours. Information on how to activate the Rapid Response Team has been discussed. Patient/Family are encouraged to report perceived risks to care and to ask questions if they do not understand what they are told or what they should do.
--- NOTE | 2023-03-30 22:11 | PM.IMHP ---
H&P: HPI History of Present Illness Date/Time: 03/30/23 22:11 Chief Complaint: Loss of consciousness and weakness Narrative: Patient is a 62-year-old female with past medical history of hypertension and diabetes coming in for loss of consciousness and weakness of 1 day duration. Patient said that on Tuesday patient had loss of consciousness. Patient remembers waking up in the morning and when she came to it was already at night. She does not remember any events leading to her loss of consciousness. She denies any headache, fever, chest pain, abdominal pain, bladder or bowel incontinence. She denies any history of seizures in the past. She does not remember any tonic clonic activity. Patient said that on Tuesday morning when she woke up she tried to reach for something but fell on the floor and was unable to get up. She used her arms to scoot on the floor and ask for help. Patient says she has diabetes but does not usually check her blood sugars. She does not recall any recent hypoglycemic episodes. She said she takes her blood pressure medications regularly although her blood pressure was elevated to 186 on initial presentation to the ER. She said she is still able to urinate without difficulty. She has no known focal deficits. In the ER patient had imaging of her head which was negative for any acute lesions. She had creatinine over 4 which is new, her last creatinine was 1.5 in December 2021. She denies any chest pain, numbness, focal deficits, or any known sick contacts. She denies any tobacco, alcohol or drug use. She said she stopped smoking about 20 years ago. Review of Systems Review of Systems: no fever or weight loss no vision changes, no eye discharge no throat pain, no hoarseness, no lymphadenopathy no chest pain, no palpitations no coughing, no wheezing no abdominal pain, no diarrhea, no nausea, no vomiting no dysuria, no vaginal discharge no leg swelling, no edema no suicidal or homicidal ideation PMFSH Past Medical History Medical History Anxiety Depression HX: breast cancer (2004) 2004 Hypertension Normal colonoscopy 07/20 Vaginal polyp Surgical History Surgical History History of hysteroscopy 2020 S/P right mastectomy s/p chemo Family History Family History Mother Family history of lung cancer Hypertension Grandparent Cerebrovascular accident Diabetes mellitus Hypertension Son Family history of cardiovascular disease Heart disease Hypertension Father Hypertension Social History Social History Smoking packs per day: 0.5 Smoking cigarettes per day: 10.0 Years smoked: 20 Smoking pack-years: 10.00 Smoking status: Never smoker Tobacco type: cigarettes Second hand tobacco smoke exposure: Yes Smoking end date: 10/10/05 Alcohol intake: current Alcohol use details: Very seldom Substance use: never Substance use type: does not use Living arrangements: alone Occupation/Education: occupation Gender identity (if verbalized by the patient): Female Sexual Orientation (if Verbalized by the Patient): Straight or Heterosexual Spiritual care concerns: No Agree to blood products: Yes Meds Home Medications and Allergies Home Medications Medication Instructions Recorded Confirmed Type labetalol 200 mg tablet 200 mg PO Q12H 08/26/22 03/30/23 History bupropion HCl 300 mg 24 hr tablet, 300 mg PO DAILY #90 tabs 12/06/22 03/30/23 Rx extended release verapamil 240 mg 24 hr 240 mg PO DAILY #90 caps 12/06/22 03/30/23 Rx capsule,extended release glimepiride 2 mg tablet 2 mg PO BID #180 tabs 01/27/23 03/30/23 Rx lisinopril 40 mg tablet 40 mg PO DAILY #90 tabs 02/28/23 03/30/23 Rx rosuvastatin 20 mg tablet 20 mg PO DAILY #90 tab
[2023-03-30 22:41] LABS: Troponin I 0.052 ng/mL (0.000-0.034)
[2023-03-30] MEDS: SODIUM CHLORIDE 0.9% IV 1,000 ML 100 ML IV CONT (23:02)
[2023-03-30] MEDS: HEPARIN SODIUM 5,000 UNITS/ML VIAL 5000 UNITS SUB-Q (23:02)
[2023-03-30] MEDS: LABETALOL HCL 100 MG TABLET 200 MG PO (23:16)
[2023-03-30 23:26] LABS: Anion Gap 11 mmol/L (8-16); Blood Urea Nitrogen 47 mg/dL (7-17); Calcium 10.7 mg/dL (8.4-10.2); Carbon Dioxide 21 mmol/L (22-30); Chloride 105 mmol/L (98-107); Estimated CRCL calculation 14 ml/min; Estimated Glomerular Filt Rate 12; Glucose 315 mg/dL (65-110); Magnesium 2.6 mg/dL (1.6-2.3); Potassium 4.4 mmol/L (3.4-5.0); Sodium 137 mmol/L (137-145)
[2023-03-30 23:44] LABS: Free T4 Free Thyroxine 1.19 ng/mL (0.78-2.19)
[2023-03-30 23:52] LABS: Creatine Kinase > 16000 U/L (30-135)
[2023-03-31] VITALS (14 sets, daily range): BP systolic 144–174; BP diastolic 68–76; PULSE 69–98; RESP 16–18; TEMP 36.2–36.6; O2SAT 100
[2023-03-31 01:33] LABS: Basophils Absolute Auto 0.1 K/mm3 (0.0-0.1); Basophils Percent Auto 0.3 % (0.2-1.2); Hematocrit 38.5 % (37.0-47.0); Hemoglobin 12.3 g/dL (12.0-15.0); Immature Granulocyte Absolute 0.08 K/mm3 (0.00-0.031); Immature Granulocyte Percent A 0.4 % (0-0.5); Lymphocytes Absolute Auto 1.72 K/mm3 (0.9-3.2); Lymphocytes Percent Auto 9.2 % (18.3-44.2); Mean Corpuscular HGB Conc 31.9 g/dl (32-36); Mean Corpuscular Hemoglobin 29.2 pg (26-34); Mean Corpuscular Volume 91.4 fl (80-100); Mean Platelet Volume 10.5 fl (7.4-10.4); Monocytes Absolute Auto 1.5 K/mm3 (0.1-0.6); Monocytes Percent Auto 8.2 % (2.6-8.5); Neutrophils Absolute Auto 15.3 K/mm3 (1.3-6.7); Neutrophils Percent Auto 81.9 % (45.5-73.1); Platelet Count Result 234 k/mm3 (150-375); Red Blood Count 4.21 M/mm3 (4.2-5.4); White Blood Count 18.7 K/mm3 (4.5-10.0)
[2023-03-31 01:45] LABS: Hemoglobin A1C 5.6 % (<5.7)
[2023-03-31 02:03] LABS: Troponin I 0.047 ng/mL (0.000-0.034)
[2023-03-31 08:14] LABS: Glucose Point of Care 174 mg/dl (65-105)
[2023-03-31 08:59] LABS: Alanine Aminotransferase 233 U/L (6-35); Albumin Level 3.6 g/dL (3.5-5.1); Alkaline Phosphatase 75 U/L (38-126); Anion Gap 8 mmol/L (8-16); Aspartate Amino Transferase 594 U/L (14-36); Bilirubin,Total 0.6 mg/dL (0.2-1.3); Blood Urea Nitrogen 52 mg/dL (7-17); Calcium 9.9 mg/dL (8.4-10.2); Carbon Dioxide 21 mmol/L (22-30); Chloride 109 mmol/L (98-107); Estimated CRCL calculation 12 ml/min; Estimated Glomerular Filt Rate 10; Glucose 162 mg/dL (65-110); Potassium 4.2 mmol/L (3.4-5.0); Sodium 138 mmol/L (137-145)
[2023-03-31] MEDS: HEPARIN SODIUM 5,000 UNITS/ML VIAL 5000 UNITS SUB-Q ×2 (09:04→20:42)
[2023-03-31] MEDS: LABETALOL HCL 100 MG TABLET 200 MG PO ×2 (09:04→20:42)
[2023-03-31] MEDS: SODIUM CHLORIDE 0.9% IV 1,000 ML 100 ML IV CONT (09:05)
[2023-03-31 12:20] LABS: Glucose Point of Care 205 mg/dl (65-105)
[2023-03-31] MEDS: INSULIN ASPART (*BKC) 100 UNITS/ML SUB-Q (12:21)
[2023-03-31] MEDS: VERAPAMIL HCL ER 240 MG TABLET.ER PO (12:21)
--- NOTE | 2023-03-31 13:27 | PM.IMPN ---
Progress Note: A&P Assessment and Plan (1) Rhabdomyolysis: Qualifiers: Rhabdomyolysis type: non-traumatic Qualified Code(s): M62.82 - Rhabdomyolysis Code(s): M62.82 - Rhabdomyolysis Status: Acute Assessment and Plan: Patient with prolonged loss of consciousness on Tuesday with fall on Tuesday resulting in inability to get up-lab tests show CPK of over 16,000 - continue hydration with normal saline -fall precaution -physical therapy consult (2) SAEID (acute kidney injury): Code(s): N17.9 - Acute kidney failure, unspecified Status: Acute Assessment and Plan: Patient with baseline creatinine of 1.5 on December 2021, now elevated to over 5 -has evidence of rhabdomyolysis with elevated CPK levels, will continue with IV fluid hydration -avoid nephrotoxins, will hold metformin as well as lisinopril -check ultrasound kidneys -insert [place] catheter to rule out obstruction - will check urine sodium and creatinine to check FENA Will consult nephrology (3) Loss of consciousness: Code(s): R40.20 - Unspecified coma Status: Acute Assessment and Plan: -patient with loss of consciousness on Tuesday, not associated with any headache, fever, bladder or bowel incontinence, tonic-clonic activity, chest pain. Patient denies any history of seizure disorder as well. -unknown if patient had hypoglycemic episode causing this, with the increase in levels due to acute SAEID. Will monitor blood glucose levels q.6 hours. -CT head negative for any acute lesions -patient's neurological exam is nonfocal (4) Shoulder pain, left: Code(s): M25.512 - Pain in left shoulder Status: Acute Assessment and Plan: x-ray is normal but patient has loss of range of motion and tenderness. Get an MRI of the left shoulder to rule out rotator cuff tear (5) Transaminitis: Code(s): R74.01 - Elevation of levels of liver transaminase levels Status: Acute Assessment and Plan: trending down. Etiology unclear. Likely secondary to rhabdomyolysis. Monitor CMP Plan Abnormal ct spine- multiple sub 6 mm pulmonary nodules- will need dedicated ct chest on a nonemergent basis Subjective Date/time seen: 03/31/23 13:27 Interval history: patient has no complaints at this time other than left shoulder pain Review of Systems Review of Systems: no fever or weight loss no vision changes, no eye discharge no throat pain, no hoarseness, no lymphadenopathy no chest pain, no palpitations no coughing, no wheezing no abdominal pain, no diarrhea, no nausea, no vomiting no dysuria, no vaginal discharge no leg swelling, no edema no suicidal or homicidal ideation Exam Narrative: general- awake, alert, oriented, no distress heent- perrl, no nystagmus, no throat swelling, no dicharge chest- clear breath sounds, no wheezes, rales, no crackles heart- s1, s2, regular rate and rhythm, no gallops or murmurs abdomen- soft, bowel sounds heard, no rebound or tenderness extremities- no edema or cyanosis, range of motion limited in left shoulder, tenderness at the deltoid region psych- no suicidal or homicidal ideation neuro- moves all extremities, no focal neurologic deficit, mentation intact Objective Data Vital Signs Vital Signs: Vital Signs - 24 hr 03/30/23 17:52 03/30/23 18:01 03/30/23 18:45 Temperature 99.2 F Pulse Rate 109 H 103 H 109 H Respiratory Rate 21 H 18 15 Blood Pressure 187/107 H Pulse Oximetry 99 100 100 Oxygen Delivery Room Air 03/30/23 21:33 03/30/23 22:00 03/30/23 22:30 Temperature Pulse Rate 91 96 96 Respiratory Rate 16 16 Blood Pressure 157/84 H Pulse Oximetry 100 100 Oxygen Delivery Room Air 03/30/23 21:48 03/30/23 23:16 03/30/23 23:30 Temperature 97.4 F L 97.4 F L Pulse Rate 95 100 95 Respiratory Rate 18 18 Blood Pressure 173/74 H 173/74 H Pulse Oximetry 100 100 Oxygen Delivery 03/31/23 00:00 03/31/23 02:03
--- NOTE | 2023-03-31 15:05 | PM.CNNEP ---
Assessment and Plan Assessment and plan (1) SAEID (acute kidney injury): Code(s): N17.9 - Acute kidney failure, unspecified Status: Acute Assessment and Plan: significant decline by admission labs likey secondary to rhabdomyolysis given elevated CPK on presentation agree with IVF hydration follow-up on renal ultrasound and urine studies holding THOM-I and metformin dependng on urine output and volume status, may need force diuresis remains at risk of BLUNGER/dialysis follow trend of repeat labs and UOP (2) Stage 3b chronic kidney disease: Code(s): N18.32 - Chronic kidney disease, stage 3b Status: Chronic Assessment and Plan: baseline creatinine runs ~ 1.6 - 1.9mg/dl based on outpatient evaluation, thought to be due to diabtes, hypertension, and possibly vascular disease follows with Dr. Colmenares for CKD management (3) Rhabdomyolysis: Qualifiers: Rhabdomyolysis type: non-traumatic Qualified Code(s): M62.82 - Rhabdomyolysis Code(s): M62.82 - Rhabdomyolysis Status: Acute Assessment and Plan: presumably due to prolonged down time on floor (~18 hours) following loss of consciousness follow trend of CPK continue IVF hydration as tolerated fall precautions (4) Loss of consciousness: Code(s): R40.20 - Unspecified coma Status: Acute Assessment and Plan: etiology? CT of head normal no focal deficits no reported seizure activity continue supportive therapy (5) Hypertension: Code(s): I10 - Essential (primary) hypertension Status: Chronic Assessment and Plan: reasonable control at this time THOM-I on hold follow trend of hemodynamics Long and extensive discussion (> 25 minutes) with patinent regarding her renal dysfunction (with the presumed cause being rhabdomyolysis) and current intervention/therapies in an effort to hopefully get her kidney function back to baseline. I will continue to follow the patient with you while she remains hospitalized and make further recommendations as deemed necessary. Thank you for allowing me to participate in the care of this patient. History of Present Illness Reason for Consult Consult date: 03/31/23 Chief Complaint Chief complaint: Weakness,UTI,Acute Hypercapnia History of Present Illness Narrative: The patient is a 62-year-old female with a past medical history as outlined below presented to [facility] Emergency room following an episode of loss of consciousness and associated weakness. Apparently, on Tuesday of this week, the patient had what she described as a loss of consciousness. The patient apparently remembers waking up in the morning but then the next thing she recalls is waking up again when was already in the evening. She does not remember the events leading to her passing out. She reports no headaches, fevers, chills, nausea, vomiting, chest pain, shortness of breath abdominal pain, bladder / bowel incontinence or any history of seizures. She does not recall any type of tonic-clonic activity either. When she did regain consciousness, she tried to reach for something then fell on the floor and was unable to get up. She subsequently crawled on the floor until she was able to get her cell phone and called/text family and friends for assistance. This subsequently led to her transfer to the emergency room for further assessment. Workup and evaluation in the emergency room demonstrated the patient to be hemodynamically stable (if not hypertensive ) and in no acute distress. Routine labs demonstrated a marked decline in her kidney function with a creatinine of 4.1 with no critical electrolyte abnormalities but with an elevated CPK consistent with rhabdomyolysis. Her head CT demonstrated no acute intracranial pathology. EKG and troponins were not consistent with any type of acute coronary syndrome. Given her acute kidney injury on to
--- NOTE | 2023-03-31 15:47 | PCOTNOTE ---
Attempted to see pt. for occupational therapy evaluation. Pt. away from room for MRI at this time.
[2023-03-31 16:14] LABS: Creatine Kinase > 16000 U/L (30-135)
[2023-03-31] MEDS: SODIUM CHLORIDE 0.9% IV 1,000 ML 300 ML IV CONT ×2 (16:43→21:50)
[2023-03-31] MEDS: ALBUMIN HUMAN 25% 25 GM/100 ML 100 ML IVPB (16:44)
[2023-03-31 17:06] LABS: Anion Gap 7 mmol/L (8-16); Blood Urea Nitrogen 58 mg/dL (7-17); Calcium 9.5 mg/dL (8.4-10.2); Carbon Dioxide 17 mmol/L (22-30); Chloride 111 mmol/L (98-107); Estimated CRCL calculation 11 ml/min; Estimated Glomerular Filt Rate 9; Glucose 155 mg/dL (65-110); Potassium 3.9 mmol/L (3.4-5.0); Sodium 135 mmol/L (137-145)
[2023-03-31 17:16] LABS: Glucose Point of Care 115 mg/dl (65-105)
--- NOTE | 2023-03-31 18:52 | PC.NURSE ---
[place] emptied this am, 0900, and 25 ml urine noted. [place] flushed, without results. Bladder scan obtained, with 17 ml of urine noted in bladder. Dr. Garcia notified. Nephrology consult obtained. Will continue to monitor closely.
[2023-03-31 19:01] LABS: Creatinine Urine 97.2 mg/dL
[2023-03-31 19:09] LABS: Sodium Urine Random 56 meq/L
[2023-03-31 20:20] LABS: Glucose Point of Care 174 mg/dl (65-105)
[2023-03-31] MEDS: SODIUM CHLORIDE 0.9% IV 1,000 ML 75 ML IV CONT (22:40)
--- NOTE | 2023-03-31 22:52 | PC.NURSE ---
Dr. Sow notified of no morning labs ordered for patient besides a CMP. Repeat CK and CBC ordered per MD. MD asked about fluid resuscitation and expressed concern about current rate of 300 mL/hr and received orders to discontinue fluids. Dr. Brambila notified and this RN received orders to decrease NS rate to 75 mL/hr and monitor for volume overload due to decreased urine output. If patient starts to decompensate, Dr. Brambila requested to be notified and will implement diuretic therapy. Will continue to monitor.
[2023-03-31 23:31] LABS: Ammonia < 9 umol/L (9-30)
[2023-03-31 23:31] LABS: Albumin Level 3.3 g/dL (3.5-5.1); Anion Gap 9 mmol/L (8-16); Blood Urea Nitrogen 62 mg/dL (7-17); Calcium 9.3 mg/dL (8.4-10.2); Carbon Dioxide 18 mmol/L (22-30); Chloride 109 mmol/L (98-107); Estimated CRCL calculation 10 ml/min; Estimated Glomerular Filt Rate 8; Glucose 131 mg/dL (65-110); Phosphorus 4.5 mg/dL (2.5-4.5); Potassium 4.1 mmol/L (3.4-5.0); Sodium 136 mmol/L (137-145)
[2023-04-01] VITALS (13 sets, daily range): BP systolic 144–170; BP diastolic 62–80; PULSE 63–91; RESP 17–21; TEMP 36.3–36.6; O2SAT 100
[2023-04-01 05:38] LABS: Hematocrit 36.7 % (37.0-47.0); Hemoglobin 11.6 g/dL (12.0-15.0); Mean Corpuscular HGB Conc 31.6 g/dl (32-36); Mean Corpuscular Hemoglobin 29.1 pg (26-34); Mean Platelet Volume 10.1 fl (7.4-10.4); Platelet Count Result 200 k/mm3 (150-375); Red Blood Count 3.99 M/mm3 (4.2-5.4); White Blood Count 13.7 K/mm3 (4.5-10.0)
[2023-04-01 05:48] LABS: Alanine Aminotransferase 206 U/L (6-35); Albumin Level 3.3 g/dL (3.5-5.1); Alkaline Phosphatase 63 U/L (38-126); Anion Gap 7 mmol/L (8-16); Aspartate Amino Transferase 498 U/L (14-36); Bilirubin,Total 0.6 mg/dL (0.2-1.3); Blood Urea Nitrogen 63 mg/dL (7-17); Calcium 9.6 mg/dL (8.4-10.2); Carbon Dioxide 19 mmol/L (22-30); Chloride 110 mmol/L (98-107); Estimated CRCL calculation 9 ml/min; Estimated Glomerular Filt Rate 7; Glucose 77 mg/dL (65-110); Potassium 4.4 mmol/L (3.4-5.0); Sodium 136 mmol/L (137-145)
[2023-04-01 08:41] LABS: Glucose Point of Care 78 mg/dl (65-105)
[2023-04-01 09:12] LABS: Creatine Kinase > 16000 U/L (30-135)
--- NOTE | 2023-04-01 10:10 | PM.IMPN ---
Progress Note: A&P Assessment and Plan (1) Rhabdomyolysis: Qualifiers: Rhabdomyolysis type: non-traumatic Qualified Code(s): M62.82 - Rhabdomyolysis Code(s): M62.82 - Rhabdomyolysis Status: Acute Assessment and Plan: - continue hydration with normal saline -fall precaution (2) SAEID (acute kidney injury): Code(s): N17.9 - Acute kidney failure, unspecified Status: Acute Assessment and Plan: Patient with baseline creatinine of 1.5 on December 2021, now elevated to over 6 -has evidence of rhabdomyolysis with elevated CPK levels, will continue with IV fluid hydration -avoid nephrotoxins, will hold metformin as well as lisinopril - ultrasound kidneys unremarkable - FENA suggestive of intrinsic renal pathology, likely ATN from rhabdomyolysis nephrology on board (3) Loss of consciousness: Code(s): R40.20 - Unspecified coma Status: Acute Assessment and Plan: -patient with loss of consciousness on Tuesday, not associated with any headache, fever, bladder or bowel incontinence, tonic-clonic activity, chest pain. Patient denies any history of seizure disorder as well. -unknown if patient had hypoglycemic episode causing this, with the increase in levels due to acute SAEID. Will monitor blood glucose levels q.6 hours. -CT head negative for any acute lesions -patient's neurological exam is nonfocal (4) Shoulder pain, left: Code(s): M25.512 - Pain in left shoulder Status: Acute Assessment and Plan: MRI left shoulder: 1. Nonspecific subtle patchy increased fluid signal in the musculature of the right shoulder girdle which has a wide differential. The reported history of an extended period of being down post fall resulting possibility of rhabdomyolysis. Differential would include post traumatic muscle strain, contusion or other nonspecific myositis. 2. Mild supraspinatus tendinopathy without discrete tear. 3. Increased fluid in the subacromial/subdeltoid bursa which could be due to mild bursitis or reactive fluid related to the underlying myopathy. 4. Moderate acromioclavicular osteoarthritis. continue pain control (5) Transaminitis: Code(s): R74.01 - Elevation of levels of liver transaminase levels Status: Acute Assessment and Plan: trending down. Etiology unclear. Likely secondary to rhabdomyolysis. Monitor CMP Plan Abnormal ct spine- multiple sub 6 mm pulmonary nodules- will need dedicated ct chest on a nonemergent basis Subjective Date/time seen: 04/01/23 10:10 Interval history: patient has no chest pain shortness of breath or any other symptoms Review of Systems Review of Systems: As per HPI. Exam Narrative: general- awake, alert, oriented, no distress heent- perrl, no nystagmus, no throat swelling, no dicharge chest- clear breath sounds, no wheezes, rales, no crackles heart- s1, s2, regular rate and rhythm, no gallops or murmurs abdomen- soft, bowel sounds heard, no rebound or tenderness extremities- no edema or cyanosis, range of motion limited in left shoulder, tenderness at the deltoid region psych- no suicidal or homicidal ideation neuro- moves all extremities, no focal neurologic deficit, mentation intact Objective Data Vital Signs Vital Signs: Vital Signs - 24 hr 03/31/23 12:00 03/31/23 12:00 03/31/23 12:00 Temperature 98 F Pulse Rate 84 83 Respiratory Rate 16 Blood Pressure 144/72 H Pulse Oximetry 100 Oxygen Delivery Room Air Fraction of Inspired Oxygen 03/31/23 14:00 03/31/23 16:00 03/31/23 16:00 Temperature 98 F Pulse Rate 78 78 80 Respiratory Rate 18 Blood Pressure 174/73 H Pulse Oximetry 100 Oxygen Delivery Fraction of Inspired Oxygen 03/31/23 20:39 03/31/23 20:42 03/31/23 20:00 Temperature 97.1 F L Pulse Rate 80 91 91 Respiratory Rate 18 18 Blood Pressure 150/68 H Pulse Oximetry 100 100 Oxygen Delivery Room Air Fract
[2023-04-01] MEDS: HEPARIN SODIUM 5,000 UNITS/ML VIAL 5000 UNITS SUB-Q ×2 (11:16→20:56)
[2023-04-01] MEDS: LABETALOL HCL 100 MG TABLET 200 MG PO ×2 (11:16→20:46)
[2023-04-01] MEDS: VERAPAMIL HCL ER 240 MG TABLET.ER PO (11:16)
[2023-04-01] MEDS: SODIUM CHLORIDE 0.9% IV 1,000 ML 100 ML IV CONT ×2 (11:18→20:56)
--- NOTE | 2023-04-01 12:08 | P.PNNP_ITS ---
Progress Note: A&P Assessment and Plan (1) SAEID (acute kidney injury): Code(s): N17.9 - Acute kidney failure, unspecified Status: Acute Assessment and Plan: * significant decline by admission labs (and ongoing worsening...) * likey secondary to rhabdomyolysis given elevated CPK and resultant ATN * continue with IVF hydration as tolerated * evaluation to date: * renal ultrasound okay * CPK remains quite elevated * urine electrolytes non-prenal * no evidence of infection * holding THOM-I and metformin * minimal urine output - will give a trial of IV diuretics today * remains at risk of LENS POLISHER HAND/dialysis * follow trend of repeat labs and UOP (2) Stage 3b chronic kidney disease: Code(s): N18.32 - Chronic kidney disease, stage 3b Status: Chronic Assessment and Plan: * baseline creatinine runs ~ 1.6 - 1.9mg/dl * based on outpatient evaluation, thought to be due to diabtes, hypertension, and possibly vascular disease * follows with Dr. Colmenares for CKD management (3) Rhabdomyolysis: Qualifiers: Rhabdomyolysis type: non-traumatic Qualified Code(s): M62.82 - Rhabdomyolysis Code(s): M62.82 - Rhabdomyolysis Status: Acute Assessment and Plan: * presumably due to prolonged down time on floor (~18 hours) following loss of consciousness * follow trend of CPK - remains quite elevated * continue IVF hydration but monitor respiratory/volume status * fall precautions (4) Loss of consciousness: Code(s): R40.20 - Unspecified coma Status: Acute Assessment and Plan: * etiology? * CT of head normal * no focal deficits * no reported seizure activity * EKG and troponins noted * continue supportive therapy (5) Hypertension: Code(s): I10 - Essential (primary) hypertension Status: Chronic Assessment and Plan: * reasonable control at this time * THOM-I on hold * follow trend of hemodynamics Long and extensive discussion (> 25 minutes) with patinent regarding her renal dysfunction (with the presumed cause being rhabdomyolysis) and current intervention/therapies in an effort to hopefully get her kidney function back to baseline; I also discussed with the patient the possible need for dialysis if her renal function continues to deteriorate or if she has issues with critical electrolytes, volume overload, uremia, or persistent metabolic acidosis; she appeared to voice understanding. Will continue to follow. Subjective Date/time seen: 04/01/23 12:08 Interval history: Follow-up for acute kidney injury/acute renal failure on chronic kidney disease and rhabdomyolysis. She appears to be in no apparent distress at the time of my visit; renal function continues to deteriorate in association with an elevated CPK (CPK does not appear to be down-trending); still not making much urine output but electrolytes and volume status stable. Exam Narrative: General: WD/WN AA female in NAD Heart: normal S1 and S2; no rub Lungs: clear to auscultation Abdomen: soft, nontender, nondistended, positive bowel sounds Extremities: no cyanosis or clubbing; no edema Skin: warm and dry Objective Data Vital Signs Vital Signs: Vital Signs Temp Pulse Resp BP Pulse Ox O2 Del Method FiO2 04/01/23 11:16 80 04/01/23 08:49 97.3 F L 85 20 170/75 H 100 04/01/23 04:00 85
--- NOTE | 2023-04-01 12:08 | PM.PNNEP ---
Progress Note: A&P Assessment and Plan (1) SAEID (acute kidney injury): Code(s): N17.9 - Acute kidney failure, unspecified Status: Acute Assessment and Plan: significant decline by admission labs (and ongoing worsening...) likey secondary to rhabdomyolysis given elevated CPK and resultant ATN continue with IVF hydration as tolerated evaluation to date: renal ultrasound okay CPK remains quite elevated urine electrolytes non-prenal no evidence of infection holding THOM-I and metformin minimal urine output - will give a trial of IV diuretics today remains at risk of WINCH STRIPPER/dialysis follow trend of repeat labs and UOP (2) Stage 3b chronic kidney disease: Code(s): N18.32 - Chronic kidney disease, stage 3b Status: Chronic Assessment and Plan: baseline creatinine runs ~ 1.6 - 1.9mg/dl based on outpatient evaluation, thought to be due to diabtes, hypertension, and possibly vascular disease follows with Dr. Colmenares for CKD management (3) Rhabdomyolysis: Qualifiers: Rhabdomyolysis type: non-traumatic Qualified Code(s): M62.82 - Rhabdomyolysis Code(s): M62.82 - Rhabdomyolysis Status: Acute Assessment and Plan: presumably due to prolonged down time on floor (~18 hours) following loss of consciousness follow trend of CPK - remains quite elevated continue IVF hydration but monitor respiratory/volume status fall precautions (4) Loss of consciousness: Code(s): R40.20 - Unspecified coma Status: Acute Assessment and Plan: etiology? CT of head normal no focal deficits no reported seizure activity EKG and troponins noted continue supportive therapy (5) Hypertension: Code(s): I10 - Essential (primary) hypertension Status: Chronic Assessment and Plan: reasonable control at this time THOM-I on hold follow trend of hemodynamics Long and extensive discussion (> 25 minutes) with patinent regarding her renal dysfunction (with the presumed cause being rhabdomyolysis) and current intervention/therapies in an effort to hopefully get her kidney function back to baseline; I also discussed with the patient the possible need for dialysis if her renal function continues to deteriorate or if she has issues with critical electrolytes, volume overload, uremia, or persistent metabolic acidosis; she appeared to voice understanding. Will continue to follow. Subjective Date/time seen: 04/01/23 12:08 Interval history: Follow-up for acute kidney injury/acute renal failure on chronic kidney disease and rhabdomyolysis. She appears to be in no apparent distress at the time of my visit; renal function continues to deteriorate in association with an elevated CPK (CPK does not appear to be down-trending); still not making much urine output but electrolytes and volume status stable. Exam Narrative: General: WD/WN AA female in NAD Heart: normal S1 and S2; no rub Lungs: clear to auscultation Abdomen: soft, nontender, nondistended, positive bowel sounds Extremities: no cyanosis or clubbing; no edema Skin: warm and dry Objective Data Vital Signs Vital Signs: Vital Signs Temp Pulse Resp BP Pulse Ox O2 Del Method FiO2 04/01/23 11:16 80 04/01/23 08:49 97.3 F L 85 20 170/75 H 100 04/01/23 04:00 85 04/01/23 00:00 81 04/01/23 00:13 81 100 Room Air 21 03/31/23 23:47 97.6 F 80 18 154/72 H 100 03/31/23 20:00 81 03/31/23 20:00 91 18 100 Room Air 03/31/23 20:42 91 03/31/23 20:39 97.1 F L 80 18 150/68 H 100 03/31/23 16:00 80 03/31/23 16:00 98 F 78 18 174/73 H 100 03/31/23 14:00 78 Intake/Output Intake/Output: Intake & Output 03/29/23 03/30/23 03/31/23 04/01/23 23:59 23:59 23:59 23:59 Intake Total 4150 1440 Output Total 100 100 250 Balance -100 4050 1190 Meds/Results Medications: Active Me
[2023-04-01 12:10] LABS: Glucose Point of Care 193 mg/dl (65-105)
--- NOTE | 2023-04-01 15:02 | PC.NURSE ---
This patient, Gena Pierre, was received from IMU on 04/01/23 at 1504. Patient/family oriented to unit policies and routines. Report received from Jovanna DUGGAN
--- NOTE | 2023-04-01 15:05 | PC.NURSE ---
This patient, Gena Pierre, was transferred to [[facility] ] on 04/01/23 at 14:53. Personal belongings sent with patient. Report given to [Jes ]. Appropriate documentation sent with patient.
[2023-04-01 17:12] LABS: Glucose Point of Care 145 mg/dl (65-105)
[2023-04-01] MEDS: INSULIN ASPART (*BKC) 100 UNITS/ML SUB-Q (17:15)
[2023-04-01] MEDS: BUMETANIDE INJ 1 MG/4 ML VIAL IV PUSH (17:15)
[2023-04-01 21:07] LABS: Glucose Point of Care 136 mg/dl (65-105)
[2023-04-02] VITALS (12 sets, daily range): BP systolic 150–169; BP diastolic 68–83; PULSE 61–90; RESP 16–21; TEMP 36.2–36.4; O2SAT 97–100
[2023-04-02 06:07] LABS: Alanine Aminotransferase 170 U/L (6-35); Alkaline Phosphatase 66 U/L (38-126); Anion Gap 9 mmol/L (8-16); Aspartate Amino Transferase 237 U/L (14-36); Bilirubin,Total 0.5 mg/dL (0.2-1.3); Blood Urea Nitrogen 70 mg/dL (7-17); Calcium 9.2 mg/dL (8.4-10.2); Carbon Dioxide 16 mmol/L (22-30); Chloride 109 mmol/L (98-107); Estimated CRCL calculation 7 ml/min; Estimated Glomerular Filt Rate 5; Glucose 100 mg/dL (65-110); Phosphorus 5.5 mg/dL (2.5-4.5); Potassium 4.4 mmol/L (3.4-5.0); Sodium 134 mmol/L (137-145)
[2023-04-02] MEDS: hydrALAZINE HCL 20 MG/ML VIAL IV PUSH (06:21)
[2023-04-02 07:27] LABS: Creatine Kinase > 16000 U/L (30-135)
[2023-04-02 08:42] LABS: Glucose Point of Care 96 mg/dl (65-105)
[2023-04-02] MEDS: VERAPAMIL HCL ER 240 MG TABLET.ER PO (08:44)
[2023-04-02] MEDS: HEPARIN SODIUM 5,000 UNITS/ML VIAL 5000 UNITS SUB-Q ×2 (08:44→21:18)
[2023-04-02] MEDS: LABETALOL HCL 100 MG TABLET 200 MG PO ×2 (08:44→21:18)
[2023-04-02] MEDS: SODIUM CHLORIDE 0.9% IV 1,000 ML 100 ML IV CONT (08:49)
--- NOTE | 2023-04-02 10:53 | PC.NURSE ---
Gave Dr. Brambila patient's sibling Adry phone number, sibling has questions for provider
[2023-04-02 12:05] LABS: Glucose Point of Care 159 mg/dl (65-105)
[2023-04-02] MEDS: INSULIN ASPART (*BKC) 100 UNITS/ML SUB-Q ×2 (12:09→17:37)
--- NOTE | 2023-04-02 12:26 | PM.IMPN ---
Progress Note: A&P Assessment and Plan (1) Rhabdomyolysis: Qualifiers: Rhabdomyolysis type: non-traumatic Qualified Code(s): M62.82 - Rhabdomyolysis Code(s): M62.82 - Rhabdomyolysis Status: Acute Assessment and Plan: - continue hydration with normal saline (2) SAEID (acute kidney injury): Code(s): N17.9 - Acute kidney failure, unspecified Status: Acute Assessment and Plan: Patient with baseline creatinine of 1.5 on December 2021, now elevated to over 6 -has evidence of rhabdomyolysis with elevated CPK levels, will continue with IV fluid hydration -avoid nephrotoxins, will hold metformin as well as lisinopril - ultrasound kidneys unremarkable - FENA suggestive of intrinsic renal pathology, likely ATN from rhabdomyolysis nephrology on board - 04/02/23 Creatinine 8.9 and in need of dialysis (3) Loss of consciousness: Code(s): R40.20 - Unspecified coma Status: Acute Assessment and Plan: -patient with loss of consciousness on Tuesday, not associated with any headache, fever, bladder or bowel incontinence, tonic-clonic activity, chest pain. Patient denies any history of seizure disorder as well. -unknown if patient had hypoglycemic episode causing this, with the increase in levels due to acute SAEID. Will monitor blood glucose levels q.6 hours. -CT head negative for any acute lesions -neuro nonfocal (4) Shoulder pain, left: Code(s): M25.512 - Pain in left shoulder Status: Acute Assessment and Plan: MRI left shoulder: 1. Nonspecific subtle patchy increased fluid signal in the musculature of the right shoulder girdle which has a wide differential. The reported history of an extended period of being down post fall resulting possibility of rhabdomyolysis. Differential would include post traumatic muscle strain, contusion or other nonspecific myositis. 2. Mild supraspinatus tendinopathy without discrete tear. 3. Increased fluid in the subacromial/subdeltoid bursa which could be due to mild bursitis or reactive fluid related to the underlying myopathy. 4. Moderate acromioclavicular osteoarthritis. continue analgiesics prn (5) Transaminitis: Code(s): R74.01 - Elevation of levels of liver transaminase levels Status: Acute Assessment and Plan: trending down. Etiology unclear. Likely secondary to rhabdomyolysis. Monitor CMP Plan Abnormal ct spine- multiple sub 6 mm pulmonary nodules- will need dedicated ct chest on a nonemergent basis Subjective Date/time seen: 04/02/23 12:26 Interval history: Poor appetite. Mild puffiness of extremities. Denied chest pain or shortness of breath. Denied GI or changes. Denied abnormal bleeding. Denied focal weakness or numbness. Does require assist for transfers. Experiencing generalized weakness. Review of Systems Review of Systems: All systems reviewed & are unremarkable except as noted in HPI and below Exam Narrative: HEENT: PERRL, sclerae nonicteric, pharyngeal mucosa pink and intact NECK: No JVD, adenopathy, or thyromegaly CHEST: Clear to auscultation. Normal effort. HEART: NL S1/S2, regular, no murmur ABDOMEN: BS+, soft, nontender, no mass, no bruits EXTREMITIES: Mild nonpitting edema of extremities NEUROLOGIC: CN intact and symmetric to inspection. MUSCULOSKELETAL: Tone and strength symmetric. PSYCH: Alert. Oriented to person, place, and time. Objective Data Vital Signs Vital Signs: Vital Signs - 24 hr 04/01/23 15:40 04/01/23 16:00 04/01/23 17:16 Temperature 97.4 F L Pulse Rate 79 80 Respiratory Rate 17 Blood Pressure 154/67 H 162/80 H Pulse Oximetry 100 Oxygen Delivery 04/01/23 20:46 04/01/23 22:15 04/01/23 20:00 Temperature 97.9 F Pulse Rate 68 65 Respiratory Rate 21 H Blood Pressure 144/62 H Pulse Oximetry 100 Oxygen Delivery Room Air 04/01/23 20:00 04/02/23 00:00 04/02/23 04:00 Temperature Pulse Rate
--- NOTE | 2023-04-02 12:32 | PM.PNNEP ---
Progress Note: A&P Assessment and Plan (1) SAEID (acute kidney injury): Code(s): N17.9 - Acute kidney failure, unspecified Status: Acute Assessment and Plan: significant decline by admission labs (and with ongoing worsening...) likey secondary to rhabdomyolysis given elevated CPK and resultant ATN continue with IVF hydration as tolerated - add bicarb to IVFs evaluation to date: renal ultrasound okay CPK remains quite elevated urine electrolytes non-prenal no evidence of infection holding THOM-I and metformin minimal urine output - no significant response to trial of IV diuretics yesterday follow trend of repeat labs and UOP given ongoing worsening of renal function with questionable signs of uremia and the developement of fluid retention, I think we should start dialysis sooner than later (see discussion below) (2) Stage 3b chronic kidney disease: Code(s): N18.32 - Chronic kidney disease, stage 3b Status: Chronic Assessment and Plan: baseline creatinine runs ~ 1.6 - 1.9mg/dl based on outpatient evaluation, thought to be due to diabtes, hypertension, and possibly vascular disease follows with Dr. Colmenares for CKD management (3) Rhabdomyolysis: Qualifiers: Rhabdomyolysis type: non-traumatic Qualified Code(s): M62.82 - Rhabdomyolysis Code(s): M62.82 - Rhabdomyolysis Status: Acute Assessment and Plan: presumably due to prolonged down time on floor (~18 hours) following loss of consciousness follow trend of CPK - remains quite elevated continue IVF hydration (will change to KVO) but monitor respiratory/volume status fall precautions (4) Loss of consciousness: Code(s): R40.20 - Unspecified coma Status: Acute Assessment and Plan: etiology? CT of head normal no focal deficits no reported seizure activity EKG and troponins noted continue supportive therapy (5) Hypertension: Code(s): I10 - Essential (primary) hypertension Status: Chronic Assessment and Plan: reasonable control at this time THOM-I on hold follow trend of hemodynamics Long and extensive discussion (> 25 minutes) with patient's sister (Adry) regarding the patient SAEID/ARF secondary to rhabdomyolysis and the lack of improvement with conservative therapy to date. She also informed me that the patient's mentation seems a bit off from baseline as well (possible uremia) in association with fluid retention as well. I discussed with her my concerns that I think the patient will likely need renal replacement therapy given her ongoing deterioration in kidney function (in association with acidosis, fluid retention, diminished urine output, and questionable uremia) and she seemed to voice understanding. No emergent indications for dialysis at this moment but will consult Surgery for HD catheter placement and initiate therapy after catheter is placed. Will continue to follow. Subjective Date/time seen: 04/02/23 12:32 Interval history: Follow-up for acute kidney injury/acute renal failure on chronic kidney disease and rhabdomyolysis. Unfortunately, renal function continues to deteriorate with no improvement in CPK; unresponsive to diuretic trial yesterday as urine output remains quite low; nursing and family report some apparent mental status issues (possible hallucinations) as well. Exam Narrative: General: WD/WN AA female in NAD Heart: normal S1 and S2; no rub Lungs: clear to auscultation Abdomen: soft, nontender, nondistended, positive bowel sounds Extremities: no cyanosis or clubbing; trace - 1+ edema Skin: warm and intact Objective Data Vital Signs Vital Signs: Vital Signs Temp Pulse Resp BP Pulse Ox O2 Del Method 04/02/23 12:00 69 04/02/23 08:50 Room Air 04/02/23 08:00 90 04/02/23 08:44 86 04/02/23 08:43 97.4 F L 88 16 154/70 H 98 04/02/23 06:00 97.6 F 87 20 169/
--- NOTE | 2023-04-02 12:32 | P.PNNP_ITS ---
Progress Note: A&P Assessment and Plan (1) SAEID (acute kidney injury): Code(s): N17.9 - Acute kidney failure, unspecified Status: Acute Assessment and Plan: * significant decline by admission labs (and with ongoing worsening...) * likey secondary to rhabdomyolysis given elevated CPK and resultant ATN * continue with IVF hydration as tolerated - add bicarb to IVFs * evaluation to date: * renal ultrasound okay * CPK remains quite elevated * urine electrolytes non-prenal * no evidence of infection * holding THOM-I and metformin * minimal urine output - no significant response to trial of IV diuretics yesterday * follow trend of repeat labs and UOP * given ongoing worsening of renal function with questionable signs of uremia and the developement of fluid retention, I think we should start dialysis sooner than later (see discussion below) (2) Stage 3b chronic kidney disease: Code(s): N18.32 - Chronic kidney disease, stage 3b Status: Chronic Assessment and Plan: * baseline creatinine runs ~ 1.6 - 1.9mg/dl * based on outpatient evaluation, thought to be due to diabtes, hypertension, and possibly vascular disease * follows with Dr. Colmenares for CKD management (3) Rhabdomyolysis: Qualifiers: Rhabdomyolysis type: non-traumatic Qualified Code(s): M62.82 - Rhabdomyolysis Code(s): M62.82 - Rhabdomyolysis Status: Acute Assessment and Plan: * presumably due to prolonged down time on floor (~18 hours) following loss of consciousness * follow trend of CPK - remains quite elevated * continue IVF hydration (will change to KVO) but monitor respiratory/volume status * fall precautions (4) Loss of consciousness: Code(s): R40.20 - Unspecified coma Status: Acute Assessment and Plan: * etiology? * CT of head normal * no focal deficits * no reported seizure activity * EKG and troponins noted * continue supportive therapy (5) Hypertension: Code(s): I10 - Essential (primary) hypertension Status: Chronic Assessment and Plan: * reasonable control at this time * THOM-I on hold * follow trend of hemodynamics Long and extensive discussion (> 25 minutes) with patient's sister (Adry) regarding the patient SAEID/ARF secondary to rhabdomyolysis and the lack of improvement with conservative therapy to date. She also informed me that the patient's mentation seems a bit off from baseline as well (possible uremia) in association with fluid retention as well. I discussed with her my concerns that I think the patient will likely need renal replacement therapy given her ongoing deterioration in kidney function (in association with acidosis, fluid retention, diminished urine output, and questionable uremia) and she seemed to voice understanding. No emergent indications for dialysis at this moment but will consult Surgery for HD catheter placement and initiate therapy after catheter is placed. Will continue to follow. Subjective Date/time seen: 04/02/23 12:32 Interval history: Follow-up for acute kidney injury/acute renal failure on chronic kidney disease and rhabdomyolysis. Unfortunately, renal function continues to deteriorate with no improvement in CPK; unresponsive to diuretic trial yesterday as urine output remains quite low; nursing and family report some apparent mental status issues (possible hallucinations) as well. Exam Narrative: General: WD/WN AA female in NAD Heart: normal S1 and S2; no rub Lungs: clear to auscultat
--- NOTE | 2023-04-02 12:48 | WPDCN ---
Assessment and Plan Assessment and plan (1) Rhabdomyolysis: Qualifiers: Rhabdomyolysis type: non-traumatic Qualified Code(s): M62.82 - Rhabdomyolysis Code(s): M62.82 - Rhabdomyolysis Status: Acute Assessment and Plan: Patient is undergoing treatment with hydration and supportive management. Unfortunately she has developed acute renal failure and needs hemodialysis access for least had temporary hemodialysis. We will plan on placement of a non tunneled temporary hemodialysis catheter later today or tomorrow. Risks, benefits, indications, and expected outcomes were discussed in detail with the patient and/or family. They understand and I have answered all other questions. They wished to proceed with surgery as outlined above. Specific risk of bleeding complications and iatrogenic pneumothorax was discussed with the patient and possible need for placement of a chest tube. She understands and agrees to proceed. (2) SAEID (acute kidney injury): Code(s): N17.9 - Acute kidney failure, unspecified Status: Acute Assessment and Plan: As above. HPI Data of Consult Date/Time: 04/02/23 12:48 Requesting Physician: Eliel Garcia MD Primary Care Provider: Monster Garza MD Consult Narrative Reason for consult: Acute renal failure, need for hemodialysis access Narrative: Gena Pierre is a 62 year old female who was admitted [facility] for rhabdomyolysis. This has caused her to go into acute renal failure. Creatinine has increased to 8 today. I have been asked to place a temporary hemodialysis catheter for access. She denies have any any issues with bleeding. Platelet count is normal. Denies prior hemodialysis catheter or central line in the upper chest or neck area. Denies having fractured her clavicle. Denies any breathing or lung problems. Review of Systems Review of Systems: The remainder of the review of systems to include constitutional, HEENT, cardiovascular, respiratory, GI, , integumentary, musculoskeletal, endocrine, immunologic, hematologic, psychiatric, and neurologic are all negative except for which is mentioned above in the HPI. [facility] Past Medical History Medical History Anxiety Depression HX: breast cancer (2004) 2004 Hypertension Normal colonoscopy 07/20 Vaginal polyp Surgical History Surgical History History of hysteroscopy 2020 S/P right mastectomy s/p chemo Family History Family History Mother Family history of lung cancer Hypertension Grandparent Cerebrovascular accident Diabetes mellitus Hypertension Son Family history of cardiovascular disease Heart disease Hypertension Father Hypertension Social History Social History Smoking packs per day: 0.5 Smoking cigarettes per day: 10.0 Years smoked: 20 Smoking pack-years: 10.00 Smoking status: Former smoker Tobacco type: cigarettes Second hand tobacco smoke exposure: Yes Smoking end date: 10/10/05 Alcohol intake: never Alcohol use details: Very seldom Substance use: never Substance use type: does not use Lack of Transportation: No Lack of Food: Never True Current Housing: I Have Housing Concerned About Future Housing: No Difficulty Paying Gas/Electric Bills: No Difficulty Paying for Meds: No Currently Unemployed: No Education: High School Diploma/GED Difficulty w/ Childcare or Family Care: No Living arrangements: alone Occupation/Education: occupation Gender identity (if verbalized by the patient): Female Sexual Orientation (if Verbalized by the Patient): Straight or Heterosexual Spiritual care concerns: No Agree to blood products: Yes Meds Home Medications and Allergies Home Medic
[2023-04-02] MEDS: SODIUM BICARBONATE 8.4% 75 MEQ in SODIUM CHLORIDE 0.45% 1,000 ML 30 MEQ IV CONT (13:18)
--- NOTE | 2023-04-02 14:45 | PC.NURSE ---
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 One will return later and try again. Pt agreeable
[2023-04-02 17:24] LABS: Hepatitis B Surface Antigen Negative (Negative)
[2023-04-02 17:30] LABS: Glucose Point of Care 114 mg/dl (65-105)
--- NOTE | 2023-04-02 19:36 | PC.NURSE ---
tried to contact Dr. Man through exchange, unable to get through. Left message and call back number with cell phone to clarify dose of heparin needed for dialysis cath insertion tomorrow
[2023-04-02 21:26] LABS: Glucose Point of Care 70 mg/dl (65-105)
[2023-04-02] MEDS: GLUCOSE ORAL GEL 15 GM OF GLUCSE IN 37.5 GM TUBE PO (22:16)
[2023-04-02 22:24] LABS: Glucose Point of Care 58 mg/dl (65-105)
[2023-04-02 22:38] LABS: Glucose Point of Care 81 mg/dl (65-105)
[2023-04-02 23:09] LABS: Glucose Point of Care 118 mg/dl (65-105)
[2023-04-03] VITALS (28 sets, daily range): BP systolic 146–184; BP diastolic 62–93; PULSE 79–98; RESP 16–21; TEMP 35.1–36.8; O2SAT 95–100
[2023-04-03 08:21] LABS: Glucose Point of Care 103 mg/dl (65-105)
[2023-04-03 11:57] LABS: Glucose Point of Care 98 mg/dl (65-105)
--- NOTE | 2023-04-03 12:04 | PM.IMPN ---
Progress Note: A&P Assessment and Plan (1) Rhabdomyolysis: Qualifiers: Rhabdomyolysis type: non-traumatic Qualified Code(s): M62.82 - Rhabdomyolysis Code(s): M62.82 - Rhabdomyolysis Status: Acute Assessment and Plan: - continue hydration with normal saline (2) SAEID (acute kidney injury): Code(s): N17.9 - Acute kidney failure, unspecified Status: Acute Assessment and Plan: Patient with baseline creatinine of 1.5 on December 2021, now elevated to over 6 -has evidence of rhabdomyolysis with elevated CPK levels, will continue with IV fluid hydration -avoid nephrotoxins, will hold metformin as well as lisinopril - ultrasound kidneys unremarkable - FENA suggestive of intrinsic renal pathology, likely ATN from rhabdomyolysis nephrology on board - 04/02/23 Creatinine 8.9 and in need of dialysis - 04/03/23 Dialysis catheter insertion at 2:30 PM (3) Loss of consciousness: Code(s): R40.20 - Unspecified coma Status: Acute Assessment and Plan: -patient with loss of consciousness on Tuesday, not associated with any headache, fever, bladder or bowel incontinence, tonic-clonic activity, chest pain. Patient denies any history of seizure disorder as well. -unknown if patient had hypoglycemic episode causing this, with the increase in levels due to acute SAEID. Will monitor blood glucose levels q.6 hours. -CT head negative for any acute lesions -neuro nonfocal (4) Shoulder pain, left: Code(s): M25.512 - Pain in left shoulder Status: Acute Assessment and Plan: MRI left shoulder: 1. Nonspecific subtle patchy increased fluid signal in the musculature of the right shoulder girdle which has a wide differential. The reported history of an extended period of being down post fall resulting possibility of rhabdomyolysis. Differential would include post traumatic muscle strain, contusion or other nonspecific myositis. 2. Mild supraspinatus tendinopathy without discrete tear. 3. Increased fluid in the subacromial/subdeltoid bursa which could be due to mild bursitis or reactive fluid related to the underlying myopathy. 4. Moderate acromioclavicular osteoarthritis. continue analgiesics prn, PT/OT (5) Transaminitis: Code(s): R74.01 - Elevation of levels of liver transaminase levels Status: Acute Assessment and Plan: Trending down. Etiology unclear. Likely secondary to rhabdomyolysis. Monitor CMP 04/03 labs late due to inability to obtain blood peripherally Plan Abnormal ct spine- multiple sub 6 mm pulmonary nodules- will need dedicated ct chest on a nonemergent basis Subjective Date/time seen: 04/03/23 12:04 Interval history: Only complaint is thirst. Generalized weakness. But did well with PT/OT today. Denied chest pain or shortness of breath. Denied abd pain. No abnl bleeding. No focal weakness. Review of Systems Review of Systems: All systems reviewed & are unremarkable except as noted in HPI and below Exam Narrative: HEENT: PERRL, sclerae nonicteric, pharyngeal mucosa pink and intact NECK: No JVD, adenopathy, or thyromegaly CHEST: Clear to auscultation. Normal effort. HEART: NL S1/S2, regular, no murmur ABDOMEN: BS+, soft, nontender, no mass, no bruits EXTREMITIES: Mild nonpitting edema of extremities NEUROLOGIC: CN intact and symmetric to inspection. MUSCULOSKELETAL: Tone and strength symmetric. PSYCH: Alert. Oriented to person, place, and time. Objective Data Vital Signs Vital Signs: Vital Signs - 24 hr 04/02/23 16:00 04/02/23 16:00 04/02/23 21:18 Temperature 97.6 F Pulse Rate 86 61 76 Respiratory Rate 16 Blood Pressure 150/68 H Pulse Oximetry 97 Oxygen Delivery 04/02/23 22:58 04/02/23 21:00 04/02/23 21:10 Temperature 97.2 F L Pulse Rate 70 Respiratory Rate 21 H Blood Pressure 151/79 H Pulse Oximetry 98 100 Oxygen Delivery Room Air Room Air 04/02/23 20:00 04/03/23 00
--- NOTE | 2023-04-03 12:04 | WPDANESEPP ---
Anes - Eval Pre Procedure Procedure: Insertion Dialysis Catheter Date/Time: 04/03/23 12:04 Surgeon: Donovan Pre Op Diagnosis: Weakness,UTI,Acute Hypercapnia Patient Data Age: 62 Gender: F Height: 1.65 m Weight: 117.4 kg Last Vital Signs Temp 97.3 F L 04/03/23 09:19 Pulse 90 04/03/23 09:30 Resp 17 04/03/23 09:19 BP 147/72 H 04/03/23 09:19 Pulse Ox 100 04/03/23 09:19 O2 Del Method Room Air 04/03/23 09:30 FiO2 21 04/01/23 00:13 Allergies Allergy/AdvReac Type Severity Reaction Status Date / Time niacin AdvReac Unknown flushing Verified 03/30/23 18:33 Home Medications Medication Instructions Recorded Confirmed Type labetalol 200 mg tablet 200 mg PO Q12H 08/26/22 03/30/23 History bupropion HCl 300 mg 24 hr tablet, 300 mg PO DAILY #90 tabs 12/06/22 03/30/23 Rx extended release verapamil 240 mg 24 hr 240 mg PO DAILY #90 caps 12/06/22 03/30/23 Rx capsule,extended release glimepiride 2 mg tablet 2 mg PO BID #180 tabs 01/27/23 03/30/23 Rx lisinopril 40 mg tablet 40 mg PO DAILY #90 tabs 02/28/23 03/30/23 Rx rosuvastatin 20 mg tablet 20 mg PO DAILY #90 tabs 02/28/23 03/30/23 Rx metformin 500 mg tablet,extended 500 mg PO DAILY #90 tabs 03/28/23 03/30/23 Rx release 24 hr sodium bicarbonate 650 mg tablet See Rx Instructions .Route 03/28/23 03/30/23 Rx .COMPLEX #180 tabs venlafaxine 150 mg 150 mg PO DAILY #90 caps 03/28/23 03/30/23 Rx capsule,extended release 24 hr Laboratory Tests 04/02/23 04/02/23 04/02/23 05:18 12:01 17:21 POC Capillary Glucose 159 H mg/dl 114 H mg/dl (65-105) (65-105) Hep Bs Antigen Negative (Negative) 04/02/23 04/02/23 04/02/23 21:14 22:12 22:30 POC Capillary Glucose 70 mg/dl 58 L* mg/dl 81 mg/dl (65-105) (65-105) (65-105) Hep Bs Antigen 04/02/23 04/03/23 04/03/23 23:04 08:11 11:51 POC Capillary Glucose 118 H mg/dl 103 mg/dl 98 mg/dl (65-105) (65-105) (65-105) Hep Bs Antigen ECG: ntervals? [place]? Rate: ? 103? P:? 44 [place]: ? 184? QRS:? 3 QRSD: ? 92 ? T:? 80 QT: ? 325? QTc:? 427? Interpretive Statements SINUS TACHYCARDIA POSSIBLE LEFT ATRIAL ENLARGEMENT? [-0.1mV P-WAVE IN V1/V2] NONSPECIFIC ST & T-WAVE ABNORMALITY ABNORMAL RHYTHM ECG COMPARED TO ECG 12/29/2020 07:30:41 SINUS TACHYCARDIA NOW PRESENT T-WAVE ABNORMALITY NOW PRESENT Electronically Signed On 03-30-2023 20:01:56 CDT by Bethany Lugo M.D. Dictated By:? Bethany Lugo MD? 03/30/232000 Signed By:? ? <Electronically signed by? Bethany Lugo MD in OV> 03/30/232001 Patient hx anesthesia problems: none Family hx anesthesia problems: none Results Review: All pre-operative results and documents have been reviewed as part of the pre-operative evaluation. [facility] Past Medical History Medical History Anxiety Depression HX: breast cancer (2004) 2004 Hypertension Normal colonoscopy 07/20 Vaginal polyp Surgical History Surgical History History of hysteroscopy 2020 S/P right mastectomy s/p chemo Family History Family History Mother Family history of lung cancer Hypertension Grandparent Cerebrovascular accident Diabetes mellitus Hypertension Son Family history of cardiovascular disease Heart disease Hypertension Father Hypertension Social History Social History Smoking packs per day: 0.5 Smoking cigarettes per day: 10.0 Years smoked: 20 Smoking pack-years: 10.00 Smoking status: Red
--- NOTE | 2023-04-03 12:43 | PM.PNNEP ---
Progress Note: A&P Assessment and Plan (1) SAEID (acute kidney injury): Code(s): N17.9 - Acute kidney failure, unspecified Status: Acute Assessment and Plan: significant decline by admission labs (and with ongoing worsening...) likey secondary to rhabdomyolysis given elevated CPK and resultant ATN continue with IVF hydration as tolerated - added bicarb to IVFs evaluation to date: renal ultrasound okay CPK remains quite elevated urine electrolytes non-prerenal no evidence of infection holding THOM-I and metformin minimal urine output - no significant response to trial of IV diuretics follow trend of repeat labs and UOP given ongoing worsening of renal function with questionable signs of uremia and the development of fluid retention, paln to start dialysis today following HD catheter placement will check AM labs that were unable to be done with dialysis today (2) Stage 3b chronic kidney disease: Code(s): N18.32 - Chronic kidney disease, stage 3b Status: Chronic Assessment and Plan: baseline creatinine runs ~ 1.6 - 1.9mg/dl based on outpatient evaluation, thought to be due to diabetes, hypertension, and possibly vascular disease follows with Dr. Colmenares for CKD management (3) Rhabdomyolysis: Qualifiers: Rhabdomyolysis type: non-traumatic Qualified Code(s): M62.82 - Rhabdomyolysis Code(s): M62.82 - Rhabdomyolysis Status: Acute Assessment and Plan: presumably due to prolonged down time on floor (~18 hours) following loss of consciousness follow trend of CPK - remains quite elevated continue IVF hydration (will change to KVO) but monitor respiratory/volume status fall precautions (4) Loss of consciousness: Code(s): R40.20 - Unspecified coma Status: Acute Assessment and Plan: etiology? CT of head normal no focal deficits no reported seizure activity EKG and troponins noted continue supportive therapy (5) Hypertension: Code(s): I10 - Essential (primary) hypertension Status: Chronic Assessment and Plan: reasonable control at this time THOM-I on hold follow trend of hemodynamics Will continue to follow Subjective Date/time seen: 04/03/23 12:43 Interval history: Follow-up for acute kidney injury/acute renal failure on chronic kidney disease and rhabdomyolysis. Waiting on planned HD catheter placement today followed by dialysis; unable to get AM labs done today; sitting up in chair in no apparent distress; only real major complaint is that she is thirsty (currently NPO); sister at bedside and we discussed the case; making a little bit more urine (but remains oliguric). Exam Narrative: General: WD/WN AA female in NAD Heart: normal S1 and S2; no rub Lungs: clear to auscultation Abdomen: soft, nontender, nondistended, positive bowel sounds Extremities: no cyanosis or clubbing; trace - 1+ edema Skin: no rash Objective Data Vital Signs Vital Signs: Vital Signs Temp Pulse Resp BP Pulse Ox O2 Del Method 04/03/23 12:00 83 04/03/23 09:30 Room Air 04/03/23 09:30 90 04/03/23 09:19 97.3 F L 88 17 147/72 H 100 04/03/23 08:00 87 04/03/23 06:00 97.4 F L 86 21 H 171/69 H 100 04/03/23 04:00 83 04/03/23 00:00 79 04/02/23 20:00 71 04/02/23 21:10 Room Air 04/02/23 21:00 97.2 F L 70 21 H 151/79 H 100 04/02/23 22:58 98 Room Air 04/02/23 21:18 76 04/02/23 16:00 61 04/02/23 16:00 97.6 F 86 16 150/68 H 97 Intake/Output Intake/Output: Intake & Output 03/31/23 04/01/23 04/02/23 04/03/23 23:59 23:59 23:59 23:59 Intake Total 4150 3410 2560 550 Output Total 100 325 300 200 Balance 4050 3085 2260 350 Meds/Results Medications: Active Medications Generic Name Dose Route Start Last Admin Trade Name Freq PRN Reason Stop Dose Admin Acetaminophen 650 mg
--- NOTE | 2023-04-03 12:43 | P.PNNP_ITS ---
Progress Note: A&P Assessment and Plan (1) SAEID (acute kidney injury): Code(s): N17.9 - Acute kidney failure, unspecified Status: Acute Assessment and Plan: * significant decline by admission labs (and with ongoing worsening...) * likey secondary to rhabdomyolysis given elevated CPK and resultant ATN * continue with IVF hydration as tolerated - added bicarb to IVFs * evaluation to date: * renal ultrasound okay * CPK remains quite elevated * urine electrolytes non-prerenal * no evidence of infection * holding THOM-I and metformin * minimal urine output - no significant response to trial of IV diuretics * follow trend of repeat labs and UOP * given ongoing worsening of renal function with questionable signs of uremia and the development of fluid retention, paln to start dialysis today following HD catheter placement * will check AM labs that were unable to be done with dialysis today (2) Stage 3b chronic kidney disease: Code(s): N18.32 - Chronic kidney disease, stage 3b Status: Chronic Assessment and Plan: * baseline creatinine runs ~ 1.6 - 1.9mg/dl * based on outpatient evaluation, thought to be due to diabetes, hypertension, and possibly vascular disease * follows with Dr. Colmenares for CKD management (3) Rhabdomyolysis: Qualifiers: Rhabdomyolysis type: non-traumatic Qualified Code(s): M62.82 - Rhabdomyolysis Code(s): M62.82 - Rhabdomyolysis Status: Acute Assessment and Plan: * presumably due to prolonged down time on floor (~18 hours) following loss of consciousness * follow trend of CPK - remains quite elevated * continue IVF hydration (will change to KVO) but monitor respiratory/volume status * fall precautions (4) Loss of consciousness: Code(s): R40.20 - Unspecified coma Status: Acute Assessment and Plan: * etiology? * CT of head normal * no focal deficits * no reported seizure activity * EKG and troponins noted * continue supportive therapy (5) Hypertension: Code(s): I10 - Essential (primary) hypertension Status: Chronic Assessment and Plan: * reasonable control at this time * THOM-I on hold * follow trend of hemodynamics Will continue to follow Subjective Date/time seen: 04/03/23 12:43 Interval history: Follow-up for acute kidney injury/acute renal failure on chronic kidney disease and rhabdomyolysis. Waiting on planned HD catheter placement today followed by dialysis; unable to get AM labs done today; sitting up in chair in no apparent distress; only real major complaint is that she is thirsty (currently NPO); sister at bedside and we discussed the case; making a little bit more urine (but remains oliguric). Exam Narrative: General: WD/WN AA female in NAD Heart: normal S1 and S2; no rub Lungs: clear to auscultation Abdomen: soft, nontender, nondistended, positive bowel sounds Extremities: no cyanosis or clubbing; trace - 1+ edema Skin: no rash Objective Data Vital Signs Vital Signs: Vital Signs Temp Pulse Resp BP Pulse Ox O2 Del Method 04/03/23 12:00 83 04/03/23 09:30 Room Air 04/03/23 09:30 90 04/03/23 09:19 97.3 F L 88 17 147/72 H 100 04/03/23 08:00 87 04/03/23 06:00 97.4 F L 86 21 H 171/69 H 100 04/03/23 04:00 83
--- NOTE | 2023-04-03 14:46 | P.PNAN_ITS ---
Anes - Eval Final PreProcedure Day of Procedure 04/03/23 14:46 Patient weight: morbidly obese Heart: regular rate and rhythm Lungs: clear to auscultation Neurological: alert and oriented Last oral intake: >/= 8 hours ASA classification: IV Emergent: no Anesthetic plan: proceed Anesthesia type and monitoring: general GIVS and standard monitoring Results Review: All pre-operative results and documents have been reviewed as part of the pre- operative evaluation. Informed Consent: The patient's anesthetic plan and its attendant risks and benefits were discussed with the patient/family/POA. Questions were solicited and answers provided to the satisfaction of the patient/family/POA.
[2023-04-03] MEDS: ceFAZolin 2 GM/D5W 50 ML 2 GM/50 ML BAG IVPB (14:53)
--- NOTE | 2023-04-03 14:55 | WPDHPUPDATE1 ---
History and Physical Update Update Date/Time: 04/03/23 14:55 History and Physical has been reviewed, including an updated exam of the patient. There are NO changes in the patient's condition. Risks, benefits, and alternatives have been discussed and questions answered. Patient agrees to proceed with procedure.
[2023-04-03] MEDS: LIDO 1%/EPINEPHRINE 1:100,000 50 ML VIAL INFILTRATE (15:17)
[2023-04-03] MEDS: BUPivacaine HCL 0.5% 10 ML AMP 30 ML INFILTRATE (15:20)
[2023-04-03] MEDS: SODIUM CHLORIDE 0.9% IV 500 ML 30 ML IV CONT (15:31)
--- NOTE | 2023-04-03 15:42 | P.OP_ITS ---
Procedure Note - Detailed Date of Procedure 04/03/23 Pre-op Diagnosis Weakness,UTI,Acute Hypercapnia, acute renal failure Post-op Diagnosis Same Procedure Performed Placement of right subclavian vein non tunneled Hen[place] hemodialysis catheter with intraoperative fluoroscopy Surgeon Siddharth Man MD Milk Delivery Driver Carlitos Mac, EMS COORDINATOR Anesthesia MAC Indications Patient is a 62-year-old female who was admitted to the hospital with rhabdomyolysis. Unfortunately she is has caused her to have acute renal failure. She is in need of placement of a hemodialysis catheter for urgent temporary hemodialysis. She presents now for placement of a Hen[place] hemodialysis catheter. Findings None significant. Description of Procedure After informed consent was obtained from the patient was then brought to the operating room she is placed in the supine position and then IV sedation was administered by anesthesia. The bilateral upper anterior neck and chest was then prepped and draped in usual sterile fashion. 1% lidocaine mixed with 0.5% Marcaine was injected just below the medial 3rd of the right clavicle. With the patient the head-down Trendelenburg position I then used a long 18gauge needle to cannulate the right subclavian vein on the 1st pass without any difficulty. There was prompt return of dark venous appearing blood. A guidewire was advanced through the needle into the right subclavian vein and subsequently down into the superior vena cava. Intraoperative fluoroscopy was then used to visualize the guidewire and it was in the proper position. I then enlarged the skin incision at the guidewire entrance site with a scalpel and then advanced dilators over the guidewire to enlarge to be non me. Lastly a non tunneled Hen[place] hemodialysis catheter with a 3rd pigtail port was advanced over the guidewire into the right subclavian vein and subsequently down into the superior vena cava. The guidewire was then removed leaving the catheter in place. The catheter was advanced to a distance 16cm in the tip at the skin level. I then secured the catheter placed some 3-0 nylon sutures at the skin. All 3 ports the catheter was then aspirated the darnell back blood easily and were flushed with heparinized saline solution. There was cleaned and a sterile dressing was applied. The patient tolerated the procedure well no complications. All sponges, needles, and instrument counts were correct at the end procedure. EBL was _ 10 __cc. The patient was awakened and taken to recovery in stable and satisfactory condition. Postprocedure chest x-ray is pending at time of this dictation. Implants Non tunneled Hen[place] hemodialysis catheter with 3rd pigtail port Estimated Blood Loss 10 Urine Output 0 Drains No Packing No Pathology None sent Complications No immediate complications Condition Stable Disposition PACU [facility] Billing Surgery - Charge Forward: Surgery Billing
[2023-04-03 15:54] LABS: Glucose Point of Care 103 mg/dl (65-105)
[2023-04-03 16:27] LABS: Glucose Point of Care 99 mg/dl (65-105)
[2023-04-03] MEDS: hydrALAZINE HCL 20 MG/ML VIAL IV PUSH (16:41)
[2023-04-03 19:05] LABS: Alanine Aminotransferase 137 U/L (6-35); Albumin Level 3.1 g/dL (3.5-5.1); Alkaline Phosphatase 68 U/L (38-126); Anion Gap 10 mmol/L (8-16); Aspartate Amino Transferase 121 U/L (14-36); Bilirubin,Total 0.4 mg/dL (0.2-1.3); Blood Urea Nitrogen 78 mg/dL (7-17); Calcium 9.7 mg/dL (8.4-10.2); Carbon Dioxide 15 mmol/L (22-30); Chloride 106 mmol/L (98-107); Estimated CRCL calculation 6 ml/min; Estimated Glomerular Filt Rate 4; Glucose 109 mg/dL (65-110); Phosphorus 5.4 mg/dL (2.5-4.5); Potassium 4.5 mmol/L (3.4-5.0); Sodium 131 mmol/L (137-145)
[2023-04-03 19:13] LABS: Creatine Kinase 7606 U/L (30-135)
[2023-04-03 20:35] LABS: Hepatitis B Surface Antigen Negative (Negative)
[2023-04-03 20:41] LABS: HAV RESULT Negative (Negative); Hepatitis B Core IgM Result Negative (Negative)
[2023-04-03 20:52] LABS: Hepatitis C Virus Antibody Negative (Negative)
[2023-04-03 20:54] LABS: Hepatitis B Surface Anti Res Negative
--- NOTE | 2023-04-03 21:35 | PC.NURSE ---
Patient back to room from dialysis at 2129
[2023-04-03] MEDS: HEPARIN SODIUM 5,000 UNITS/ML VIAL 5000 UNITS SUB-Q (21:45)
[2023-04-03] MEDS: LABETALOL HCL 100 MG TABLET 200 MG PO (21:45)
[2023-04-04] VITALS (21 sets, daily range): BP systolic 148–195; BP diastolic 65–101; PULSE 81–97; RESP 18–20; TEMP 36–36.7; O2SAT 95–98
[2023-04-04 05:48] LABS: Alanine Aminotransferase 103 U/L (6-35); Albumin Level 2.9 g/dL (3.5-5.1); Alkaline Phosphatase 57 U/L (38-126); Anion Gap 7 mmol/L (8-16); Aspartate Amino Transferase 89 U/L (14-36); Bilirubin,Total 0.5 mg/dL (0.2-1.3); Blood Urea Nitrogen 52 mg/dL (7-17); Calcium 8.9 mg/dL (8.4-10.2); Carbon Dioxide 22 mmol/L (22-30); Chloride 104 mmol/L (98-107); Estimated CRCL calculation 9 ml/min; Estimated Glomerular Filt Rate 6; Glucose 69 mg/dL (65-110); Phosphorus 4.5 mg/dL (2.5-4.5); Potassium 4.2 mmol/L (3.4-5.0); Sodium 133 mmol/L (137-145)
[2023-04-04 06:06] LABS: Creatine Kinase 4529 U/L (30-135)
[2023-04-04 08:34] LABS: Glucose Point of Care 128 mg/dl (65-105)
[2023-04-04] MEDS: SODIUM BICARBONATE 8.4% 75 MEQ in SODIUM CHLORIDE 0.45% 1,000 ML 30 MEQ IV CONT (09:06)
[2023-04-04] MEDS: HEPARIN SODIUM 5,000 UNITS/ML VIAL 5000 UNITS SUB-Q ×2 (09:07→21:41)
--- NOTE | 2023-04-04 09:55 | WPDANESPN ---
Anes - Prog Note Post-Op Date/Time: 04/04/23 09:55 Vital Signs: Last Vital Signs Temp 36.7 C 04/04/23 06:00 Pulse 94 04/04/23 06:00 Resp 20 04/04/23 06:00 BP 148/65 H 04/04/23 06:00 Pulse Ox 98 04/04/23 06:00 O2 Del Method Room Air 04/03/23 20:00 FiO2 21 04/01/23 00:13 Pain Score (VAS): 0 I/O: Intake & Output 04/03/23 04/04/23 04/04/23 23:59 07:59 15:59 Intake Total 340 1575 360 Output Total 1160 100 Balance -820 1475 360 Laboratory Tests 04/01/23 05:31 04/04/23 04:44 04/03/23 04/03/23 04/03/23 11:51 15:51 16:25 Sodium Potassium Chloride Carbon Dioxide Anion Gap BUN Creatinine Estim Creat Clear Calc Estimated GFR Glucose POC Capillary Glucose 98 103 99 Calcium Phosphorus Total Bilirubin AST ALT Alkaline Phosphatase Total Creatine Kinase Total Protein Albumin Hepatitis A IgM Ab Hep Bs Antigen Hep Bs Antibody Hep B Core Total Ab Hep B Core IgM Ab Hepatitis C Ab Screen 04/03/23 04/04/23 04/04/23 18:29 04:44 08:21 Sodium 131 L 133 L Potassium 4.5 4.2 Chloride 106 104 Carbon Dioxide 15 L 22 Anion Gap 10 7 L BUN 78 H 52 H D Creatinine 10.90 H 8.00 H Estim Creat Clear Calc 6 9 Estimated GFR 4 L 6 L Glucose 109 69 POC Capillary Glucose 128 H Calcium 9.7 8.9 Phosphorus 5.4 H 4.5 Total Bilirubin 0.4 0.5 AST 121 H 89 H ALT 137 H 103 H Alkaline Phosphatase 68 57 Total Creatine Kinase 7606 H 4529 H Total Protein 6.0 L 5.0 L Albumin 3.1 L 2.9 L Hepatitis A IgM Ab Negative Hep Bs Antigen Negative Hep Bs Antibody Negative Hep B Core Total Ab Pending Hep B Core IgM Ab Negative Hepatitis C Ab Screen Negative Patient Feedback: Patient satisfied with anesthetic care.
--- NOTE | 2023-04-04 09:59 | PCPTNOTE ---
The patient is out the room for dialysis at this time. Will continue per PT plan of care.
--- NOTE | 2023-04-04 10:30 | P.PNNP_ITS ---
Progress Note: A&P Assessment and Plan (1) SAEID (acute kidney injury): Code(s): N17.9 - Acute kidney failure, unspecified Status: Acute Assessment and Plan: * significant decline by admission labs (and with ongoing worsening...) * likey secondary to rhabdomyolysis given elevated CPK with bresultant ATN * continue with IVF hydration as tolerated - added bicarb to IVFs * evaluation to date: * renal ultrasound okay * CPK remains quite elevated * urine electrolytes non-prerenal * no evidence of infection * holding THOM-I and metformin * minimal urine output - no significant response to trial of IV diuretics * follow trend of repeat labs and UOP * given ongoing worsening of renal function with questionable signs of uremia and the development of fluid retention, initiated on hemodialysis * HD yesterday and today (2) Stage 3b chronic kidney disease: Code(s): N18.32 - Chronic kidney disease, stage 3b Status: Chronic Assessment and Plan: * baseline creatinine runs ~ 1.6 - 1.9mg/dl * based on outpatient evaluation, thought to be due to diabetes, hypertension, and possibly vascular disease * follows with Dr. Colmenares for CKD management (3) Rhabdomyolysis: Qualifiers: Rhabdomyolysis type: non-traumatic Qualified Code(s): M62.82 - Rhabd omyolysis Code(s): M62.82 - Rhabdomyolysis Status: Acute Assessment and Plan: * presumably due to prolonged down time on floor (~18 hours) following loss of consciousness * follow trend of CPK - remains quite elevated * fall precautions (4) Loss of consciousness: Code(s): R40.20 - Unspecified coma Status: Acute Assessment and Plan: * etiology? * CT of head normal * no focal deficits * no reported seizure activity * EKG and troponins noted * continue supportive therapy (5) Hypertension: Code(s): I10 - Essential (primary) hypertension Status: Chronic Assessment and Plan: * reasonable control at this time * THOM-I on hold * follow trend of hemodynamics Will continue to follow Subjective Date/time seen: 04/04/23 10:30 Interval history: Follow-up for acute kidney injury/acute renal failure on chronic kidney disease and rhabdomyolysis. S/P temporary HD catheter placement yesterday followed by dialysis -- tolerated both procedures reasonably well; tolerating dialysis at the time of my visit (seen at 10:20A) but HD catheter flow rates are poor at this time; no apparent distress noted. Exam Narrative: General: WD/WN AA female in NAD Heart: normal S1 and S2; no rub Lungs: clear to auscultation Abdomen: soft, nontender, nondistended, positive bowel sounds Extremities: no cyanosis or clubbing; trace edema Skin: no nodules Objective Data Vital Signs Vital Signs: Vital Signs Temp Pulse Resp BP Pulse Ox O2 Del Method FiO2 04/04/23 08:00 88 20 95 Room Air 21 04/04/23 11:33 98.0 F 90 20 194/92 H 96 04/04/23 11:27 90 195/97 H 04/04/23 11:20 88 193/101 H 04/04/23 11:00 88 189/94 H 04/04/23 10:40 85 195/97 H 04/04/23 10:20 85 194/90 H 04/04/23 10:00 85 189/93 H 04/04/23 09:40 83 178/90 H 04/04/23 11:06 88 04/04/23 09:31 86 185/90 H 04/04/23 09:22 98.0 F 86 20
--- NOTE | 2023-04-04 10:30 | PM.PNNEP ---
Progress Note: A&P Assessment and Plan (1) SAEID (acute kidney injury): Code(s): N17.9 - Acute kidney failure, unspecified Status: Acute Assessment and Plan: significant decline by admission labs (and with ongoing worsening...) likey secondary to rhabdomyolysis given elevated CPK with bresultant ATN continue with IVF hydration as tolerated - added bicarb to IVFs evaluation to date: renal ultrasound okay CPK remains quite elevated urine electrolytes non-prerenal no evidence of infection holding THOM-I and metformin minimal urine output - no significant response to trial of IV diuretics follow trend of repeat labs and UOP given ongoing worsening of renal function with questionable signs of uremia and the development of fluid retention, initiated on hemodialysis HD yesterday and today (2) Stage 3b chronic kidney disease: Code(s): N18.32 - Chronic kidney disease, stage 3b Status: Chronic Assessment and Plan: baseline creatinine runs ~ 1.6 - 1.9mg/dl based on outpatient evaluation, thought to be due to diabetes, hypertension, and possibly vascular disease follows with Dr. Colmenares for CKD management (3) Rhabdomyolysis: Qualifiers: Rhabdomyolysis type: non-traumatic Qualified Code(s): M62.82 - Rhabdomyolysis Code(s): M62.82 - Rhabdomyolysis Status: Acute Assessment and Plan: presumably due to prolonged down time on floor (~18 hours) following loss of consciousness follow trend of CPK - remains quite elevated fall precautions (4) Loss of consciousness: Code(s): R40.20 - Unspecified coma Status: Acute Assessment and Plan: etiology? CT of head normal no focal deficits no reported seizure activity EKG and troponins noted continue supportive therapy (5) Hypertension: Code(s): I10 - Essential (primary) hypertension Status: Chronic Assessment and Plan: reasonable control at this time THOM-I on hold follow trend of hemodynamics Will continue to follow Subjective Date/time seen: 04/04/23 10:30 Interval history: Follow-up for acute kidney injury/acute renal failure on chronic kidney disease and rhabdomyolysis. S/P temporary HD catheter placement yesterday followed by dialysis -- tolerated both procedures reasonably well; tolerating dialysis at the time of my visit (seen at 10:20A) but HD catheter flow rates are poor at this time; no apparent distress noted. Exam Narrative: General: WD/WN AA female in NAD Heart: normal S1 and S2; no rub Lungs: clear to auscultation Abdomen: soft, nontender, nondistended, positive bowel sounds Extremities: no cyanosis or clubbing; trace edema Skin: no nodules Objective Data Vital Signs Vital Signs: Vital Signs Temp Pulse Resp BP Pulse Ox O2 Del Method FiO2 04/04/23 08:00 88 20 95 Room Air 21 04/04/23 11:33 98.0 F 90 20 194/92 H 96 04/04/23 11:27 90 195/97 H 04/04/23 11:20 88 193/101 H 04/04/23 11:00 88 189/94 H 04/04/23 10:40 85 195/97 H 04/04/23 10:20 85 194/90 H 04/04/23 10:00 85 189/93 H 04/04/23 09:40 83 178/90 H 04/04/23 11:06 88 04/04/23 09:31 86 185/90 H 04/04/23 09:22 98.0 F 86 20 176/84 H 95 04/04/23 06:00 98.1 F 94 20 148/65 H 98 04/04/23 04:00 95 04/04/23 00:00 97 04/03/23 20:00 95 04/03/23 20:00 Room Air 04/03/23 21:46 98.3 F 97 16 153/79 H 95 04/03/23 21:45 97 04/03/23 21:31 98.1 F 98 17 183/83 H 04/03/23 21:01 95 181/93 H 04/03/23 20:40 94 175/86 H 04/03/23 20:20 96 183/89 H 04/03/23 20:00 94 182/85 H 04/03/23 19:40 98 176/90 H 04/03/23 19:20 98 184/87 H 04/03/23 19:00 96 172/85 H 04/03/23 18:40 94 172/83 H 04/03/23 18:20 92 176/83 H 04/03/23 17:57 90 182/87 H 04/03/23 17
--- NOTE | 2023-04-04 10:55 | PM.IMPN ---
Progress Note: A&P Assessment and Plan (1) Rhabdomyolysis: Qualifiers: Rhabdomyolysis type: non-traumatic Qualified Code(s): M62.82 - Rhabdomyolysis Code(s): M62.82 - Rhabdomyolysis Status: Acute Assessment and Plan: - continue hydration with normal saline (2) SAEID (acute kidney injury): Code(s): N17.9 - Acute kidney failure, unspecified Status: Acute Assessment and Plan: Worsening. patient with baseline creatinine of 1.5 on December 2021, now elevated to over 6 -has evidence of rhabdomyolysis with elevated CPK levels, will continue with IV fluid hydration -avoid nephrotoxins, will hold metformin as well as lisinopril - ultrasound kidneys unremarkable - FENA suggestive of intrinsic renal pathology, likely ATN from rhabdomyolysis nephrology on board -patient started on dialysis (3) Loss of consciousness: Code(s): R40.20 - Unspecified coma Status: Acute Assessment and Plan: -patient with loss of consciousness on Tuesday, not associated with any headache, fever, bladder or bowel incontinence, tonic-clonic activity, chest pain. Patient denies any history of seizure disorder as well. -unknown if patient had hypoglycemic episode causing this, with the increase in levels due to acute SAEID. Will monitor blood glucose levels q.6 hours. -CT head negative for any acute lesions -neuro nonfocal (4) Shoulder pain, left: Code(s): M25.512 - Pain in left shoulder Status: Acute Assessment and Plan: MRI left shoulder: 1. Nonspecific subtle patchy increased fluid signal in the musculature of the right shoulder girdle which has a wide differential. The reported history of an extended period of being down post fall resulting possibility of rhabdomyolysis. Differential would include post traumatic muscle strain, contusion or other nonspecific myositis. 2. Mild supraspinatus tendinopathy without discrete tear. 3. Increased fluid in the subacromial/subdeltoid bursa which could be due to mild bursitis or reactive fluid related to the underlying myopathy. 4. Moderate acromioclavicular osteoarthritis. continue analgiesics prn, PT/OT Plan Abnormal ct spine- multiple sub 6 mm pulmonary nodules- will need dedicated ct chest on a nonemergent basis Subjective Date/time seen: 04/04/23 10:55 Interval history: Stable Review of Systems Review of Systems: All systems reviewed & are unremarkable except as noted in HPI and below Exam Narrative: HEENT: PERRL, sclerae nonicteric, pharyngeal mucosa pink and intact NECK: No JVD, adenopathy, or thyromegaly CHEST: Clear to auscultation. Normal effort. HEART: NL S1/S2, regular, no murmur ABDOMEN: BS+, soft, nontender, no mass, no bruits EXTREMITIES: Mild nonpitting edema of extremities NEUROLOGIC: CN intact and symmetric to inspection. MUSCULOSKELETAL: Tone and strength symmetric. PSYCH: Alert. Oriented to person, place, and time. Objective Data Vital Signs Vital Signs: Vital Signs - 24 hr 04/03/23 12:00 04/03/23 15:31 04/03/23 15:45 Temperature 98.0 F Pulse Rate 83 98 87 Respiratory Rate 18 18 Blood Pressure 155/77 H 162/84 H Pulse Oximetry 100 100 Oxygen Delivery Room Air Room Air 04/03/23 16:00 04/03/23 16:05 04/03/23 16:32 Temperature Pulse Rate 84 87 86 Respiratory Rate 16 16 Blood Pressure 159/78 H 170/80 H Pulse Oximetry 98 98 Oxygen Delivery Room Air Room Air 04/03/23 16:36 04/03/23 17:24 04/03/23 17:49 Temperature 96.8 F L 97.6 F Pulse Rate 85 90 91 Respiratory Rate 16 16 Blood Pressure 177/79 H 146/62 H 178/83 H Pulse Oximetry 100 Oxygen Delivery 04/03/23 17:57 04/03/23 18:20 04/03/23 18:40 Temperature Pulse Rate 90 92 94 Respiratory Rate Blood Pressure 182/87 H 176/83 H 172/83 H Pulse Oximetry Oxygen Delivery 04/03/23 19:00 04/03/23 19:20 04/03/23 19:40 Temperature Pulse Rate 96 98 98 Respiratory Rate Blood Pres
[2023-04-04] MEDS: LABETALOL HCL 100 MG TABLET 200 MG PO ×2 (11:06→21:40)
[2023-04-04] MEDS: VERAPAMIL HCL ER 240 MG TABLET.ER PO (11:06)
--- NOTE | 2023-04-04 11:43 | PCOTNOTE ---
The patient treatment was not able to be completed on 04/04/2023 due to Patient having dialysis. Will plan to continue treatment per plan of care.
--- NOTE | 2023-04-04 12:11 | PM.PNGS ---
Progress Note: A&P Assessment and Plan (1) SAEID (acute kidney injury): Code(s): N17.9 - Acute kidney failure, unspecified Status: Acute Assessment and Plan: Status post placement of non tunneled temporary hemodialysis catheter. It worked very well last evening she got a full course of hemodialysis. Today they are having problems with flows and she was only able to get a half session in. Catheter is not appear to be changed position from the operating room. Wound looks okay and there was no bleeding. Will see with nephrology wants to have done Subjective Subjective Date/Time Seen: 04/04/23 12:11 Interval history: Patient currently in hemodialysis. She was able to have a full session of hemodialysis last evening after placement of the non tunneled temporary hemodialysis catheter. This morning she was only able to get half a treatment due to low flows the catheter. It is unclear why catheter is not working well. Is in good position in the distal superior vena cava. BUN is decreased from 70 down the 50. Creatinine is decreased from 10 down 8. She does feel better. Exam Skin: Other: Right upper anterior chest hemodialysis catheter non tunneled in place. No redness or drainage or bleeding. Catheter does not appear to be kinked at the skin. Objective Data Vital Signs Vital Signs: Vital Signs - 24 hr 04/03/23 15:31 04/03/23 15:45 04/03/23 16:00 Temperature 36.7 C Pulse Rate 98 87 84 Respiratory Rate 18 18 16 Blood Pressure 155/77 H 162/84 H 159/78 H Pulse Oximetry 100 100 98 Oxygen Delivery Room Air Room Air Room Air Fraction of Inspired Oxygen 04/03/23 16:05 04/03/23 16:32 04/03/23 16:36 Temperature 36.0 C L Pulse Rate 87 86 85 Respiratory Rate 16 16 Blood Pressure 170/80 H 177/79 H Pulse Oximetry 98 100 Oxygen Delivery Room Air Fraction of Inspired Oxygen 04/03/23 17:24 04/03/23 17:49 04/03/23 17:57 Temperature 36.4 C Pulse Rate 90 91 90 Respiratory Rate 16 Blood Pressure 146/62 H 178/83 H 182/87 H Pulse Oximetry Oxygen Delivery Fraction of Inspired Oxygen 04/03/23 18:20 04/03/23 18:40 04/03/23 19:00 Temperature Pulse Rate 92 94 96 Respiratory Rate Blood Pressure 176/83 H 172/83 H 172/85 H Pulse Oximetry Oxygen Delivery Fraction of Inspired Oxygen 04/03/23 19:20 04/03/23 19:40 04/03/23 20:00 Temperature Pulse Rate 98 98 94 Respiratory Rate Blood Pressure 184/87 H 176/90 H 182/85 H Pulse Oximetry Oxygen Delivery Fraction of Inspired Oxygen 04/03/23 20:20 04/03/23 20:40 04/03/23 21:01 Temperature Pulse Rate 96 94 95 Respiratory Rate Blood Pressure 183/89 H 175/86 H 181/93 H Pulse Oximetry Oxygen Delivery Fraction of Inspired Oxygen 04/03/23 21:31 04/03/23 21:45 04/03/23 21:46 Temperature 36.7 C 36.8 C Pulse Rate 98 97 97 Respiratory Rate 17 16 Blood Pressure 183/83 H 153/79 H Pulse Oximetry 95 Oxygen Delivery Fraction of Inspired Oxygen 04/03/23 20:00 04/03/23 20:00 04/04/23 00:00 Temperature Pulse Rate 95 97 Respiratory Rate Blood Pressure Pulse Oximetry Oxygen Delivery Room Air Fraction of Inspired Oxygen 04/04/23 04:00 04/04/23 06:00 04/04/23 09:22 Temperature 36.7 C 36.7 C Pulse Rate 95 94 86 Respiratory Rate 20 20 Blood Pressure 148/65 H 176/84 H Pulse Oximetry 98 95 Oxygen Delivery Fraction of Inspired Oxygen 04/04/23 09:31 04/04/23 11:06 04/04/23 09:40 Temperature Pulse Rate 86 88 83 Respiratory Rate Blood Pressure 185/90 H 178/90 H Pulse Oximetry Oxygen Delivery Fraction of Inspired Oxygen 04/04/23 10:00 04/04/23 10:20 04/04/23 10:40 Temperature Pulse Rate 85 85 85 Respiratory Rate Blood Pressure 189/93 H 194/90 H 195/97 H Pulse Oximetry Oxygen Delivery Fraction of Inspired Oxygen 04/04/23 08:00 Temperature Pulse Rate 88 Respiratory Rate 20 Bl
[2023-04-04 12:26] LABS: Glucose Point of Care 97 mg/dl (65-105)
[2023-04-04 17:34] LABS: Glucose Point of Care 91 mg/dl (65-105)
[2023-04-05] VITALS (11 sets, daily range): BP systolic 146–168; BP diastolic 62–80; PULSE 73–89; RESP 18; TEMP 36.1–36.4; O2SAT 97–100
[2023-04-05 05:44] LABS: Hematocrit 30.8 % (37.0-47.0); Hemoglobin 9.7 g/dL (12.0-15.0); Immature Platelet Fraction Pct 8.5 % (0.9-11.2); Mean Corpuscular HGB Conc 31.5 g/dl (32-36); Mean Corpuscular Hemoglobin 29.1 pg (26-34); Mean Corpuscular Volume 92.5 fl (80-100); Mean Platelet Volume 11.4 fl (7.4-10.4); Platelet Count Result 144 k/mm3 (150-375); Red Blood Count 3.33 M/mm3 (4.2-5.4); Red Cell Distribution Width 14.4 % (11.5-14.5); White Blood Count 8.7 K/mm3 (4.5-10.0)
[2023-04-05 05:55] LABS: Alanine Aminotransferase 64 U/L (6-35); Albumin Level 2.8 g/dL (3.5-5.1); Alkaline Phosphatase 47 U/L (38-126); Anion Gap 6 mmol/L (8-16); Aspartate Amino Transferase 68 U/L (14-36); Bilirubin,Total 0.6 mg/dL (0.2-1.3); Blood Urea Nitrogen 47 mg/dL (7-17); Calcium 9.1 mg/dL (8.4-10.2); Carbon Dioxide 25 mmol/L (22-30); Chloride 100 mmol/L (98-107); Creatine Kinase 1544 U/L (30-135); Estimated CRCL calculation 9 ml/min; Estimated Glomerular Filt Rate 7; Glucose 61 mg/dL (65-110); Phosphorus 4.8 mg/dL (2.5-4.5); Potassium 3.8 mmol/L (3.4-5.0); Sodium 131 mmol/L (137-145)
[2023-04-05] MEDS: GLUCOSE ORAL GEL 15 GM OF GLUCSE IN 37.5 GM TUBE PO (07:50)
[2023-04-05 07:51] LABS: Glucose Point of Care 60 mg/dl (65-105)
[2023-04-05] MEDS: hydrALAZINE HCL 25 MG TABLET PO ×4 (08:07→20:40)
[2023-04-05] MEDS: LABETALOL HCL 100 MG TABLET 200 MG PO ×2 (08:07→20:40)
[2023-04-05] MEDS: HEPARIN SODIUM 5,000 UNITS/ML VIAL 5000 UNITS SUB-Q ×2 (08:07→20:40)
[2023-04-05] MEDS: VERAPAMIL HCL ER 240 MG TABLET.ER PO (08:08)
[2023-04-05 08:22] LABS: Glucose Point of Care 110 mg/dl (65-105)
--- NOTE | 2023-04-05 09:31 | PM.PNGS ---
Progress Note: A&P Assessment and Plan (1) SAEID (acute kidney injury): Code(s): N17.9 - Acute kidney failure, unspecified Status: Acute Assessment and Plan: Creatinine seems to be slowly decreasing. Today is 7.4. This could be due to hemodialysis yesterday. The catheter seems to be malfunctioning to a certain extent as she was only able to get half of the treatment yesterday due to poor flows. Could try to pull back the catheter a little bit to see if it is into deep and causing obstruction with aspiration. The catheter did work the 1st night without any problems. If the patient needs longer hemodialysis on an outpatient basis then can place a new catheter on the left side or convert the existing 1 to a tunneled Perma catheter. Await nephrology evaluation and plans. Subjective Subjective Date/Time Seen: 04/05/23 09:31 Interval history: Patient is sitting up in chair. She states she feels pretty good. She does not know whether she is getting another and hemodialysis treatment today. Yesterday she was only able to give 1 have her hemodialysis treatment due to poor flows in the [place] hemodialysis catheter. She was able to get a full treatment the night before and the catheter worked fine. Exam Skin: Other: Right upper anterior chest wall catheter site is dry with some old blood on the dressing. There is no hematoma or redness. Objective Data Vital Signs Vital Signs: Vital Signs - 24 hr 04/04/23 11:06 04/04/23 09:40 04/04/23 10:00 Temperature Pulse Rate 88 83 85 Respiratory Rate Blood Pressure 178/90 H 189/93 H Pulse Oximetry Oxygen Delivery 04/04/23 10:20 04/04/23 10:40 04/04/23 11:00 Temperature Pulse Rate 85 85 88 Respiratory Rate Blood Pressure 194/90 H 195/97 H 189/94 H Pulse Oximetry Oxygen Delivery 04/04/23 11:20 04/04/23 11:27 04/04/23 11:33 Temperature 36.7 C Pulse Rate 88 90 90 Respiratory Rate 20 Blood Pressure 193/101 H 195/97 H 194/92 H Pulse Oximetry 96 Oxygen Delivery 04/04/23 12:00 04/04/23 16:00 04/04/23 20:14 Temperature 36.7 C Pulse Rate 87 81 82 Respiratory Rate 18 Blood Pressure 163/76 H Pulse Oximetry 96 Oxygen Delivery 04/04/23 21:40 04/04/23 20:00 04/05/23 05:19 Temperature 36.1 C L Pulse Rate 82 84 Respiratory Rate 18 Blood Pressure 168/80 H Pulse Oximetry 100 Oxygen Delivery Room Air 04/04/23 20:00 04/05/23 00:00 04/05/23 04:00 Temperature Pulse Rate 82 89 87 Respiratory Rate Blood Pressure Pulse Oximetry Oxygen Delivery Intake/Output Intake/Output: Intake & Output 04/02/23 04/03/23 04/04/23 04/05/23 23:59 23:59 23:59 23:59 Intake Total 2560 890 2665 510 Output Total 300 1360 755 300 Balance 2260 -470 1910 210 Meds/Results Medications: Active Medications Generic Name Dose Route Start Last Admin Trade Name Freq PRN Reason Stop Dose Admin Acetaminophen 650 mg 03/30/23 22:24 Acetaminophen 325 Mg Tablet PO Q4H PRN Mild Pain (1-3) or Fever Dextrose 12.5 gm 03/30/23 22:24 Dextrose 50% 25 Gm/50 Ml Syringe IV PUSH PRN PRN Hypoglycemia Protocol Fentanyl Citrate 25 mcg 04/03/23 14:35 Fentanyl Citrate Inj (*Crx) 100 Mcg/2 Ml Vial IV PUSH Q2M PRN Pain Fentanyl Citrate 25 mcg 04/03/23 14:47 Fentanyl Citrate Inj (*Crx) 100 Mcg/2 Ml Vial IV PUSH Q2M PRN Pain Glucagon 1 mg 03/30/23 22:24 Glucagon For Inj 1 Mg Vial IM PRN PRN Hypoglycemia Protocol Glucose 15 gm 03/30/23 22:24 04/05/23 07:50 Glucose Oral Gel 15 Gm Of Glucse In 37.5 Gm Tube PO 15 gm PRN PRN Administration Hypoglycemia Protocol Heparin Sodium (Porcine) 5,000 units 03/30/23 22:40 04/05/23 08:07 Heparin Sodium 5,000 Units/Ml Vial SUB-Q 5,000 units Q12HR RAVI Administration Hydralazine HCl 25 mg 04/05/23 09:00 04/05/23 08:07 Hydralazine Hcl 25
--- NOTE | 2023-04-05 09:40 | PM.IMPN ---
Progress Note: A&P Assessment and Plan (1) Rhabdomyolysis: Qualifiers: Rhabdomyolysis type: non-traumatic Qualified Code(s): M62.82 - Rhabdomyolysis Code(s): M62.82 - Rhabdomyolysis Status: Acute Assessment and Plan: - continue hydration with normal saline Patient now on hemodialysis (2) SAEID (acute kidney injury): Code(s): N17.9 - Acute kidney failure, unspecified Status: Acute Assessment and Plan: patient with baseline creatinine of 1.5 on December 2021 -has evidence of rhabdomyolysis with elevated CPK levels, will continue with IV fluid hydration -avoid nephrotoxins, will hold metformin as well as lisinopril - ultrasound kidneys unremarkable - FENA suggestive of intrinsic renal pathology, likely ATN from rhabdomyolysis nephrology on board -patient started on hemodialysis (3) Loss of consciousness: Code(s): R40.20 - Unspecified coma Status: Acute Assessment and Plan: -resolved -CT head negative for any acute lesions -neuro nonfocal (4) Shoulder pain, left: Code(s): M25.512 - Pain in left shoulder Status: Acute Assessment and Plan: MRI left shoulder: 1. Nonspecific subtle patchy increased fluid signal in the musculature of the right shoulder girdle which has a wide differential. The reported history of an extended period of being down post fall resulting possibility of rhabdomyolysis. Differential would include post traumatic muscle strain, contusion or other nonspecific myositis. 2. Mild supraspinatus tendinopathy without discrete tear. 3. Increased fluid in the subacromial/subdeltoid bursa which could be due to mild bursitis or reactive fluid related to the underlying myopathy. 4. Moderate acromioclavicular osteoarthritis. continue analgiesics prn, PT/OT Plan Abnormal ct spine- multiple sub 6 mm pulmonary nodules- will need dedicated ct chest on a nonemergent basis Subjective Date/time seen: 04/05/23 09:40 Interval history: Asymptomatic Review of Systems Review of Systems: All systems reviewed & are unremarkable except as noted in HPI and below Exam Narrative: HEENT: PERRL, sclerae nonicteric, pharyngeal mucosa pink and intact NECK: No JVD, adenopathy, or thyromegaly CHEST: Clear to auscultation. Normal effort. HEART: NL S1/S2, regular, no murmur ABDOMEN: BS+, soft, nontender, no mass, no bruits EXTREMITIES: Mild nonpitting edema of extremities NEUROLOGIC: CN intact and symmetric to inspection. MUSCULOSKELETAL: Tone and strength symmetric. PSYCH: Alert. Oriented to person, place, and time. Objective Data Vital Signs Vital Signs: Vital Signs - 24 hr 04/04/23 11:06 04/04/23 10:00 04/04/23 10:20 Temperature Pulse Rate 88 85 85 Respiratory Rate Blood Pressure 189/93 H 194/90 H Pulse Oximetry Oxygen Delivery 04/04/23 10:40 04/04/23 11:00 04/04/23 11:20 Temperature Pulse Rate 85 88 88 Respiratory Rate Blood Pressure 195/97 H 189/94 H 193/101 H Pulse Oximetry Oxygen Delivery 04/04/23 11:27 04/04/23 11:33 04/04/23 12:00 Temperature 98.0 F Pulse Rate 90 90 87 Respiratory Rate 20 Blood Pressure 195/97 H 194/92 H Pulse Oximetry 96 Oxygen Delivery 04/04/23 16:00 04/04/23 20:14 04/04/23 21:40 Temperature 98.1 F Pulse Rate 81 82 82 Respiratory Rate 18 Blood Pressure 163/76 H Pulse Oximetry 96 Oxygen Delivery 04/04/23 20:00 04/05/23 05:19 04/04/23 20:00 Temperature 97 F L Pulse Rate 84 82 Respiratory Rate 18 Blood Pressure 168/80 H Pulse Oximetry 100 Oxygen Delivery Room Air 04/05/23 00:00 04/05/23 04:00 Temperature Pulse Rate 89 87 Respiratory Rate Blood Pressure Pulse Oximetry Oxygen Delivery Intake/Output Intake/Output: Intake & Output 04/02/23 04/03/23 04/04/23 04/05/23 23:59 23:59 23:59 23:59 Intake Total 2560 / 2560 890 / 890 2665 / 2665 510 / 510 Output Total 300 / 300 136
--- NOTE | 2023-04-05 10:16 | P.PNNP_ITS ---
Progress Note: A&P Assessment and Plan (1) SAEID (acute kidney injury): Code(s): N17.9 - Acute kidney failure, unspecified Status: Acute Assessment and Plan: * significant decline by admission labs (and with ongoing worsening...) * likely secondary to rhabdomyolysis given elevated CPK with resultant ATN * evaluation to date: * renal ultrasound okay * CPK elevated on admission (but trending down now) * urine electrolytes non-prerenal * no evidence of infection * holding THOM-I and metformin * initially minimal urine output - no significant response to trial of IV diuretics * some improvement in UOP in the last 24 hours * follow trend of repeat labs and UOP * given ongoing worsening of renal function with questionable signs of uremia and the development of fluid retention, initiated on hemodialysis * HD yesterday but suboptimal treatment * plan HD today (depending on HD nurse availability and if no other urgent treatment needed today) versus tomorrow (2) Stage 3b chronic kidney disease: Code(s): N18.32 - Chronic kidney disease, stage 3b Status: Chronic Assessment and Plan: * baseline creatinine runs ~ 1.6 - 1.9mg/dl * based on outpatient evaluation, thought to be due to diabetes, hypertension, and possibly vascular disease * follows with Dr. Colmenares for CKD management (3) Rhabdomyolysis: Qualifiers: Rhabdomyolysis type: non-traumatic Qualified Code(s): M62.82 - Rhabdomyolysis Code(s): M62.82 - Rhabdomyolysis Status: Acute Assessment and Plan: * presumably due to prolonged down time on floor (~18 hours) following loss of consciousness * follow trend of CPK - remains quite elevated * fall precautions (4) Loss of consciousness: Code(s): R40.20 - Unspecified coma Status: Acute Assessment and Plan: * etiology? * CT of head normal * no focal deficits * no reported seizure activity * EKG and troponins noted * continue supportive therapy (5) Hypertension: Code(s): I10 - Essential (primary) hypertension Status: Chronic Assessment and Plan: * reasonable control at this time * THOM-I on hold * follow trend of hemodynamics Will continue to follow Subjective Date/time seen: 04/05/23 10:16 Interval history: Follow-up for acute kidney injury/acute renal failure on chronic kidney disease and rhabdomyolysis. Only received about an hour of dialysis yesterday due to suboptimal blood flows with dialysis catheter; however, she reports that she is feeling reasoably well; CPK levels trending down and appears to be making a bit more urine in the last 24 - 48 hours; no apparent distress noted at the time of my visit. Exam Narrative: General: WD/WN AA female in NAD Heart: normal S1 and S2; no rub Lungs: clear to auscultation Abdomen: soft, nontender, nondistended, positive bowel sounds Extremities: no cyanosis or clubbing; trace edema Skin: warm and dry Objective Data Vital Signs Vital Signs: Vital Signs Temp Pulse Resp BP Pulse Ox O2 Del Method 04/05/23 10:15 73 154/68 H 04/05/23 04:00 87 04/05/23 00:00 89 04/04/23 20:00 82 04/05/23 05:19 97 F L 84 18 168/80 H 100 04/04/23 20:00 Room Air 04/04/23 21:40 82 04/04/23 20:14 98.1 F 82 18 163/76 H 96
--- NOTE | 2023-04-05 10:16 | PM.PNNEP ---
Progress Note: A&P Assessment and Plan (1) SAEID (acute kidney injury): Code(s): N17.9 - Acute kidney failure, unspecified Status: Acute Assessment and Plan: significant decline by admission labs (and with ongoing worsening...) likely secondary to rhabdomyolysis given elevated CPK with resultant ATN evaluation to date: renal ultrasound okay CPK elevated on admission (but trending down now) urine electrolytes non-prerenal no evidence of infection holding THOM-I and metformin initially minimal urine output - no significant response to trial of IV diuretics some improvement in UOP in the last 24 hours follow trend of repeat labs and UOP given ongoing worsening of renal function with questionable signs of uremia and the development of fluid retention, initiated on hemodialysis HD yesterday but suboptimal treatment plan HD today (depending on HD nurse availability and if no other urgent treatment needed today) versus tomorrow (2) Stage 3b chronic kidney disease: Code(s): N18.32 - Chronic kidney disease, stage 3b Status: Chronic Assessment and Plan: baseline creatinine runs ~ 1.6 - 1.9mg/dl based on outpatient evaluation, thought to be due to diabetes, hypertension, and possibly vascular disease follows with Dr. Colmenares for CKD management (3) Rhabdomyolysis: Qualifiers: Rhabdomyolysis type: non-traumatic Qualified Code(s): M62.82 - Rhabdomyolysis Code(s): M62.82 - Rhabdomyolysis Status: Acute Assessment and Plan: presumably due to prolonged down time on floor (~18 hours) following loss of consciousness follow trend of CPK - remains quite elevated fall precautions (4) Loss of consciousness: Code(s): R40.20 - Unspecified coma Status: Acute Assessment and Plan: etiology? CT of head normal no focal deficits no reported seizure activity EKG and troponins noted continue supportive therapy (5) Hypertension: Code(s): I10 - Essential (primary) hypertension Status: Chronic Assessment and Plan: reasonable control at this time THOM-I on hold follow trend of hemodynamics Will continue to follow Subjective Date/time seen: 04/05/23 10:16 Interval history: Follow-up for acute kidney injury/acute renal failure on chronic kidney disease and rhabdomyolysis. Only received about an hour of dialysis yesterday due to suboptimal blood flows with dialysis catheter; however, she reports that she is feeling reasoably well; CPK levels trending down and appears to be making a bit more urine in the last 24 - 48 hours; no apparent distress noted at the time of my visit. Exam Narrative: General: WD/WN AA female in NAD Heart: normal S1 and S2; no rub Lungs: clear to auscultation Abdomen: soft, nontender, nondistended, positive bowel sounds Extremities: no cyanosis or clubbing; trace edema Skin: warm and dry Objective Data Vital Signs Vital Signs: Vital Signs Temp Pulse Resp BP Pulse Ox O2 Del Method 04/05/23 10:15 73 154/68 H 04/05/23 04:00 87 04/05/23 00:00 89 04/04/23 20:00 82 04/05/23 05:19 97 F L 84 18 168/80 H 100 04/04/23 20:00 Room Air 04/04/23 21:40 82 04/04/23 20:14 98.1 F 82 18 163/76 H 96 04/04/23 16:00 81 Intake/Output Intake/Output: Intake & Output 04/02/23 04/03/23 04/04/23 04/05/23 23:59 23:59 23:59 23:59 Intake Total 2560 890 2665 960 Output Total 300 1360 755 300 Balance 2260 -470 1910 660 Meds/Results Medications: Active Medications Generic Name Dose Route Start Last Admin Trade Name Freq PRN Reason Stop Dose Admin Acetaminophen 650 mg 03/30/23 22:24 Acetaminophen 325 Mg Tablet PO Q4H PRN Mild Pain (1-3) or Fever Dextrose 12.5 gm 03/30/23 22:24 Dextrose 50% 25 Gm/50 Ml Syringe IV PUSH PRN PRN Hypoglycemia Protocol Epoetin Isac-epbx 10,0
[2023-04-05 12:34] LABS: Glucose Point of Care 159 mg/dl (65-105)
[2023-04-05 17:39] LABS: Glucose Point of Care 106 mg/dl (65-105)
[2023-04-06] VITALS (26 sets, daily range): BP systolic 142–192; BP diastolic 62–92; PULSE 70–92; RESP 18–21; TEMP 36–36.9; O2SAT 92–100
[2023-04-06 05:58] LABS: Alanine Aminotransferase 44 U/L (6-35); Albumin Level 2.9 g/dL (3.5-5.1); Alkaline Phosphatase 62 U/L (38-126); Anion Gap 5 mmol/L (8-16); Aspartate Amino Transferase 52 U/L (14-36); Bilirubin,Total 0.5 mg/dL (0.2-1.3); Blood Urea Nitrogen 52 mg/dL (7-17); Calcium 9.5 mg/dL (8.4-10.2); Carbon Dioxide 26 mmol/L (22-30); Chloride 99 mmol/L (98-107); Creatine Kinase 896 U/L (30-135); Estimated CRCL calculation 8 ml/min; Estimated Glomerular Filt Rate 5; Glucose 84 mg/dL (65-110); Phosphorus 4.4 mg/dL (2.5-4.5); Potassium 3.8 mmol/L (3.4-5.0); Sodium 130 mmol/L (137-145)
[2023-04-06 08:24] LABS: Glucose Point of Care 98 mg/dl (65-105)
[2023-04-06] MEDS: LABETALOL HCL 100 MG TABLET 200 MG PO ×2 (08:49→21:10)
[2023-04-06] MEDS: VERAPAMIL HCL ER 240 MG TABLET.ER PO (08:50)
[2023-04-06] MEDS: hydrALAZINE HCL 25 MG TABLET PO ×4 (08:50→21:10)
[2023-04-06] MEDS: HEPARIN SODIUM 5,000 UNITS/ML VIAL 5000 UNITS SUB-Q ×2 (08:50→21:10)
--- NOTE | 2023-04-06 10:24 | PCPTNOTE ---
The patient treatment was not able to be completed this morning on 04/06/2023 due to patient out of room for dialysis. Will plan to continue treatment per plan of care.
[2023-04-06] MEDS: EPOETIN ALFA-EPBX 10,000 UNITS/ML VIAL 10000 UNITS IV PUSH (12:26)
--- NOTE | 2023-04-06 12:58 | P.PNNP_ITS ---
Progress Note: A&P Assessment and Plan (1) SAEID (acute kidney injury): Code(s): N17.9 - Acute kidney failure, unspecified Status: Acute Assessment and Plan: * significant decline as noted by admission labs * likely secondary to rhabdomyolysis given elevated CPK with resultant ATN * evaluation to date: * renal ultrasound okay * CPK elevated on admission (but trending down now) * urine electrolytes non-prerenal * no evidence of infection * holding THOM-I and metformin * initially minimal urine output - no significant response to trial of IV diuretics * some improvement in UOP in the last 24 - 48 hours * follow trend of repeat labs and UOP * given ongoing worsening of renal function with questionable signs of uremia and the development of fluid retention, initiated on hemodialysis * HD today (2) Stage 3b chronic kidney disease: Code(s): N18.32 - Chronic kidney disease, stage 3b Status: Chronic Assessment and Plan: * baseline creatinine runs ~ 1.6 - 1.9mg/dl * based on outpatient evaluation, thought to be due to diabetes, hypertension, and possibly vascular disease * follows with Dr. Colmenares for CKD management (3) Rhabdomyolysis: Qualifiers: Rhabdomyolysis type: non-traumatic Qualified Code(s): M62.82 - Rhabdomyolysis Code(s): M62.82 - Rhabdomyolysis Status: Acute Assessment and Plan: * presumably due to prolonged down time on floor (~18 hours) following loss of consciousness * follow trend of CPK - remains quite elevated * fall precautions (4) Loss of consciousness: Code(s): R40.20 - Unspecified coma Status: Acute Assessment and Plan: * etiology? * CT of head normal * no focal deficits * no reported seizure activity * EKG and troponins noted * continue supportive therapy (5) Hypertension: Code(s): I10 - Essential (primary) hypertension Status: Chronic Assessment and Plan: * reasonable control at this time * THOM-I on hold * follow trend of hemodynamics Will continue to follow Subjective Date/time seen: 04/06/23 12:58 Interval history: Follow-up for acute kidney injury/acute renal failure on chronic kidney disease and rhabdomyolysis. Tolerating hemodialysis treatment at the time of my visit (seen on HD at 12:48PM); better blood flows with HD catheter today (~ 300cc/min); she states she is feeling reasonably well; slow and steady improvement in urine output noted; no apparent distress voiced. Exam Narrative: General: WD/WN AA female in NAD Heart: normal S1 and S2; no rub Lungs: clear to auscultation Abdomen: soft, nontender, nondistended, positive bowel sounds Extremities: no cyanosis or clubbing; trace edema Skin: warm and intact Objective Data Vital Signs Vital Signs: Vital Signs Temp Pulse Resp BP Pulse Ox O2 Del Method 04/06/23 12:40 75 168/85 H 04/06/23 12:20 75 172/85 H 04/06/23 12:00 74 166/84 H 04/06/23 11:40 77 166/87 H 04/06/23 11:20 78 164/90 H 04/06/23 11:00 81 166/89 H 04/06/23 10:40 81 186/87 H 04/06/23 10:20 80 181/92 H 04/06/23 10:00 81 169/82 H 04/06/23 09:40 84 182/92 H 04/06/23 09:34 87 192/85 H 04/06/23 09:20 98.4 F 85 20 176/84 H 95
--- NOTE | 2023-04-06 12:58 | PM.PNNEP ---
Progress Note: A&P Assessment and Plan (1) SAEID (acute kidney injury): Code(s): N17.9 - Acute kidney failure, unspecified Status: Acute Assessment and Plan: significant decline as noted by admission labs likely secondary to rhabdomyolysis given elevated CPK with resultant ATN evaluation to date: renal ultrasound okay CPK elevated on admission (but trending down now) urine electrolytes non-prerenal no evidence of infection holding THOM-I and metformin initially minimal urine output - no significant response to trial of IV diuretics some improvement in UOP in the last 24 - 48 hours follow trend of repeat labs and UOP given ongoing worsening of renal function with questionable signs of uremia and the development of fluid retention, initiated on hemodialysis HD today (2) Stage 3b chronic kidney disease: Code(s): N18.32 - Chronic kidney disease, stage 3b Status: Chronic Assessment and Plan: baseline creatinine runs ~ 1.6 - 1.9mg/dl based on outpatient evaluation, thought to be due to diabetes, hypertension, and possibly vascular disease follows with Dr. Colmenares for CKD management (3) Rhabdomyolysis: Qualifiers: Rhabdomyolysis type: non-traumatic Qualified Code(s): M62.82 - Rhabdomyolysis Code(s): M62.82 - Rhabdomyolysis Status: Acute Assessment and Plan: presumably due to prolonged down time on floor (~18 hours) following loss of consciousness follow trend of CPK - remains quite elevated fall precautions (4) Loss of consciousness: Code(s): R40.20 - Unspecified coma Status: Acute Assessment and Plan: etiology? CT of head normal no focal deficits no reported seizure activity EKG and troponins noted continue supportive therapy (5) Hypertension: Code(s): I10 - Essential (primary) hypertension Status: Chronic Assessment and Plan: reasonable control at this time THOM-I on hold follow trend of hemodynamics Will continue to follow Subjective Date/time seen: 04/06/23 12:58 Interval history: Follow-up for acute kidney injury/acute renal failure on chronic kidney disease and rhabdomyolysis. Tolerating hemodialysis treatment at the time of my visit (seen on HD at 12:48PM); better blood flows with HD catheter today (~ 300cc/min); she states she is feeling reasonably well; slow and steady improvement in urine output noted; no apparent distress voiced. Exam Narrative: General: WD/WN AA female in NAD Heart: normal S1 and S2; no rub Lungs: clear to auscultation Abdomen: soft, nontender, nondistended, positive bowel sounds Extremities: no cyanosis or clubbing; trace edema Skin: warm and intact Objective Data Vital Signs Vital Signs: Vital Signs Temp Pulse Resp BP Pulse Ox O2 Del Method 04/06/23 12:40 75 168/85 H 04/06/23 12:20 75 172/85 H 04/06/23 12:00 74 166/84 H 04/06/23 11:40 77 166/87 H 04/06/23 11:20 78 164/90 H 04/06/23 11:00 81 166/89 H 04/06/23 10:40 81 186/87 H 04/06/23 10:20 80 181/92 H 04/06/23 10:00 81 169/82 H 04/06/23 09:40 84 182/92 H 04/06/23 09:34 87 192/85 H 04/06/23 09:20 98.4 F 85 20 176/84 H 95 04/06/23 08:00 89 04/06/23 08:00 Room Air 04/06/23 08:49 85 04/06/23 04:00 90 04/06/23 00:00 87 04/05/23 20:00 80 04/06/23 04:53 97.4 F L 92 18 167/77 H 92 04/05/23 20:40 83 04/05/23 20:00 Room Air 04/05/23 19:36 97.4 F L 83 18 155/70 H 97 04/05/23 16:00 81 04/05/23 13:56 97.6 F 82 18 146/62 H 100 Intake/Output Intake/Output: Intake & Output 04/03/23 04/04/23 04/05/23 04/06/23 23:59 23:59 23:59 23:59 Intake Total 890 2665 1520 610 Output Total 1360 755 550 300 Balance -470 1910 970 310 Meds/Results Medications: Active Medications Generic Name Dose Route Start
--- NOTE | 2023-04-06 13:29 | PCPTNOTE ---
Second attempt to see patient for PT, however patient was out of the room for dialysis.
--- NOTE | 2023-04-06 13:30 | PM.IMPN ---
Progress Note: A&P Assessment and Plan (1) Rhabdomyolysis: Qualifiers: Rhabdomyolysis type: non-traumatic Qualified Code(s): M62.82 - Rhabdomyolysis Code(s): M62.82 - Rhabdomyolysis Status: Acute Assessment and Plan: - patient now on hemodialysis (2) SAEID (acute kidney injury): Code(s): N17.9 - Acute kidney failure, unspecified Status: Acute Assessment and Plan: -patient with baseline creatinine of 1.5 on December 2021 - has evidence of rhabdomyolysis with elevated CPK levels - watch ck (3) Loss of consciousness: Code(s): R40.20 - Unspecified coma Status: Acute Assessment and Plan: -resolved -CT head negative for any acute lesions -neuro nonfocal (4) Shoulder pain, left: Code(s): M25.512 - Pain in left shoulder Status: Acute Assessment and Plan: MRI left shoulder: 1. Nonspecific subtle patchy increased fluid signal in the musculature of the right shoulder girdle which has a wide differential. The reported history of an extended period of being down post fall resulting possibility of rhabdomyolysis. Differential would include post traumatic muscle strain, contusion or other nonspecific myositis. 2. Mild supraspinatus tendinopathy without discrete tear. 3. Increased fluid in the subacromial/subdeltoid bursa which could be due to mild bursitis or reactive fluid related to the underlying myopathy. 4. Moderate acromioclavicular osteoarthritis. continue analgiesics prn, PT/OT Plan Abnormal ct spine- multiple sub 6 mm pulmonary nodules- will need dedicated ct chest on a nonemergent basis Subjective Date/time seen: 04/06/23 13:30 Interval history: Follow-up for acute kidney injury/acute renal failure on chronic kidney disease and rhabdomyolysis. Pt going for dialysis today Review of Systems Review of Systems: NO complaints Exam Narrative: HEENT: PERRL, sclerae nonicteric, pharyngeal mucosa pink and intact NECK: No JVD, adenopathy, or thyromegaly CHEST: Clear to auscultation. Normal effort. HEART: NL S1/S2, regular, no murmur ABDOMEN: BS+, soft, nontender, no mass, no bruits EXTREMITIES: Mild nonpitting edema of extremities NEUROLOGIC: CN intact and symmetric to inspection. MUSCULOSKELETAL: Tone and strength symmetric. PSYCH: Alert. Oriented to person, place, and time. Objective Data Vital Signs Vital Signs: Vital Signs - 24 hr 04/05/23 13:56 04/05/23 16:00 04/05/23 19:36 Temperature 36.4 C 36.3 C L Pulse Rate 82 81 83 Respiratory Rate 18 18 Blood Pressure 146/62 H 155/70 H Pulse Oximetry 100 97 Oxygen Delivery 04/05/23 20:00 04/05/23 20:40 04/06/23 04:53 Temperature 36.3 C L Pulse Rate 83 92 Respiratory Rate 18 Blood Pressure 167/77 H Pulse Oximetry 92 Oxygen Delivery Room Air 04/05/23 20:00 04/06/23 00:00 04/06/23 04:00 Temperature Pulse Rate 80 87 90 Respiratory Rate Blood Pressure Pulse Oximetry Oxygen Delivery 04/06/23 08:49 04/06/23 08:00 04/06/23 08:00 Temperature Pulse Rate 85 89 Respiratory Rate Blood Pressure Pulse Oximetry Oxygen Delivery Room Air 04/06/23 09:20 04/06/23 09:34 04/06/23 09:40 Temperature 36.9 C Pulse Rate 85 87 84 Respiratory Rate 20 Blood Pressure 176/84 H 192/85 H 182/92 H Pulse Oximetry 95 Oxygen Delivery 04/06/23 10:00 04/06/23 10:20 04/06/23 10:40 Temperature Pulse Rate 81 80 81 Respiratory Rate Blood Pressure 169/82 H 181/92 H 186/87 H Pulse Oximetry Oxygen Delivery 04/06/23 11:00 04/06/23 11:20 04/06/23 11:40 Temperature Pulse Rate 81 78 77 Respiratory Rate Blood Pressure 166/89 H 164/90 H 166/87 H Pulse Oximetry Oxygen Delivery 04/06/23 12:00 04/06/23 12:20 04/06/23 12:40 Temperature Pulse Rate 74 75 75 Respiratory Rate Blood Pressure 166/84 H 172/85 H 168/85 H Pulse Oximetry Oxygen Delivery 04/06/23
--- NOTE | 2023-04-06 13:57 | PCNWS ---
Weekly nutritional screen. Patient is tolerating current Renal dialysis diet with adequate intake 10-80%, improving the last 2 days. No weight loss reported. No nutritional needs at this time.
[2023-04-06 14:00] LABS: Glucose Point of Care 124 mg/dl (65-105)
--- NOTE | 2023-04-06 14:45 | PCOTNOTE ---
The patient treatment was not able to be completed on April 06 2023 due to Patient got back from dialysis and was on the phone with her family. Will plan to continue treatment per plan of care tomorrow.
[2023-04-06 16:58] LABS: Glucose Point of Care 96 mg/dl (65-105)
[2023-04-06] MEDS: ACETAMINOPHEN 325 MG TABLET 650 MG PO (21:10)
[2023-04-06 21:32] LABS: Glucose Point of Care 145 mg/dl (65-105)
[2023-04-07] VITALS (12 sets, daily range): BP systolic 141–187; BP diastolic 70–96; PULSE 71–94; RESP 18–21; TEMP 36.3–36.9; O2SAT 100
[2023-04-07 07:23] LABS: Anion Gap 4 mmol/L (8-16); Blood Urea Nitrogen 30 mg/dL (7-17); Calcium 9.3 mg/dL (8.4-10.2); Carbon Dioxide 27 mmol/L (22-30); Chloride 101 mmol/L (98-107); Creatine Kinase 541 U/L (30-135); Estimated CRCL calculation 11 ml/min; Estimated Glomerular Filt Rate 8; Glucose 93 mg/dL (65-110); Sodium 132 mmol/L (137-145)
[2023-04-07 08:32] LABS: Glucose Point of Care 108 mg/dl (65-105)
[2023-04-07] MEDS: LABETALOL HCL 100 MG TABLET 200 MG PO ×2 (09:33→20:24)
[2023-04-07] MEDS: VERAPAMIL HCL ER 240 MG TABLET.ER PO (09:33)
[2023-04-07] MEDS: hydrALAZINE HCL 25 MG TABLET PO ×3 (09:33→20:24)
[2023-04-07 09:34] LABS: Hematocrit 30.3 % (37.0-47.0); Hemoglobin 9.7 g/dL (12.0-15.0); Mean Corpuscular Hemoglobin 29.1 pg (26-34); Mean Platelet Volume 10.6 fl (7.4-10.4); Platelet Count Result 224 k/mm3 (150-375); Red Blood Count 3.33 M/mm3 (4.2-5.4); Red Cell Distribution Width 14.6 % (11.5-14.5); White Blood Count 9.4 K/mm3 (4.5-10.0)
[2023-04-07] MEDS: HEPARIN SODIUM 5,000 UNITS/ML VIAL 5000 UNITS SUB-Q ×2 (09:46→20:24)
[2023-04-07 11:35] LABS: Appearance Urine Clear (Clear); Bacteria Urine None Seen /hpf; Bilirubin Urine Negative (Negative); Blood Urine 3+ (Negative); Color Urine Yellow (Yellow); Glucose Urine UA Negative (Negative); Ketones Urine Negative (Negative); Leukocyte Esterase Ur 2+ LEU/UL (Negative); Need Manual Microscopic Reviewed; Nitrate Urine Negative (Negative); Non Pathogenic Casts 0-2; Protein Urine 1+ mg/dL (Negative); RBC Urine 21-50 /hpf (0-2); Specific Grav Ur 1.005 (1.001-1.035); Squamous Epithelial Cell Urine None seen /hpf (Few); Urobilinogen Urine 0.2 mg/dL (<2.0); pH Urine 7.5 (5.0-9.0)
[2023-04-07 11:47] LABS: Add Urine Microscopic? YES
[2023-04-07 12:02] LABS: Glucose Point of Care 172 mg/dl (65-105)
--- NOTE | 2023-04-07 12:08 | PM.IMPN ---
Progress Note: A&P Assessment and Plan (1) Rhabdomyolysis: Qualifiers: Rhabdomyolysis type: non-traumatic Qualified Code(s): M62.82 - Rhabdomyolysis Code(s): M62.82 - Rhabdomyolysis Status: Acute Assessment and Plan: - pt requiring emergent dialysis for severe SAEID - patient now on hemodialysis (2) SAEID (acute kidney injury): Code(s): N17.9 - Acute kidney failure, unspecified Status: Acute Assessment and Plan: -patient with baseline creatinine of 1.5 on December 2021 - has evidence of rhabdomyolysis with elevated CPK levels - watch kidney function daily - pt will catheter bag in situ - pt having dialysis next due on Tuesday - nephrology rounding (3) Loss of consciousness: Code(s): R40.20 - Unspecified coma Status: Acute Assessment and Plan: -resolved -CT head negative for any acute lesions -neuro nonfocal (4) Shoulder pain, left: Code(s): M25.512 - Pain in left shoulder Status: Acute Assessment and Plan: MRI left shoulder: 1. Nonspecific subtle patchy increased fluid signal in the musculature of the right shoulder girdle which has a wide differential. The reported history of an extended period of being down post fall resulting possibility of rhabdomyolysis. Differential would include post traumatic muscle strain, contusion or other nonspecific myositis. 2. Mild supraspinatus tendinopathy without discrete tear. 3. Increased fluid in the subacromial/subdeltoid bursa which could be due to mild bursitis or reactive fluid related to the underlying myopathy. 4. Moderate acromioclavicular osteoarthritis. continue analgiesics prn, PT/OT Plan Abnormal ct spine- multiple sub 6 mm pulmonary nodules- will need dedicated ct chest on a nonemergent basis Elevated wcc - likely stress reaction wcc has normalized since will order UA to rule out UTI Subjective Date/time seen: 04/07/23 12:08 Interval history: Follow-up for acute kidney injury/acute renal failure on chronic kidney disease and rhabdomyolysis. Pt going for dialysis on tuesday Pt is new patient to dialysis creat improving slowly creat around 6 No other specific complaints Review of Systems Review of Systems: No complaints All systems reviewed & are unremarkable except as noted in HPI and below Exam Narrative: HEENT: PERRL, sclerae nonicteric, pharyngeal mucosa pink and intact NECK: No JVD, adenopathy, or thyromegaly CHEST: Clear to auscultation. Normal effort. HEART: NL S1/S2, regular, no murmur ABDOMEN: BS+, soft, nontender, no mass, no bruits EXTREMITIES: Mild nonpitting edema of extremities NEUROLOGIC: CN intact and symmetric to inspection. MUSCULOSKELETAL: Tone and strength symmetric. PSYCH: Alert. Oriented to person, place, and time. Objective Data Vital Signs Vital Signs: Vital Signs - 24 hr 04/06/23 12:20 04/06/23 12:40 04/06/23 13:00 Temperature Pulse Rate 75 75 70 Respiratory Rate Blood Pressure 172/85 H 168/85 H 155/84 H Pulse Oximetry Oxygen Delivery 04/06/23 13:47 04/06/23 13:07 04/06/23 13:15 Temperature 36.7 C Pulse Rate 71 73 73 Respiratory Rate 18 18 Blood Pressure 142/62 H 167/82 H 163/81 H Pulse Oximetry 95 Oxygen Delivery 04/06/23 16:00 04/06/23 21:10 04/06/23 20:00 Temperature Pulse Rate 76 86 Respiratory Rate Blood Pressure Pulse Oximetry Oxygen Delivery Room Air 04/06/23 22:00 04/06/23 20:00 04/07/23 00:00 Temperature 36.4 C L Pulse Rate 82 84 87 Respiratory Rate 21 H Blood Pressure 153/76 H Pulse Oximetry 100 Oxygen Delivery 04/07/23 04:00 04/07/23 05:57 04/07/23 08:29 Temperature 36.3 C L Pulse Rate 89 89 92 Respiratory Rate 21 H Blood Pressure 153/79 H 159/96 H Pulse Oximetry 100 100 Oxygen Delivery 04/07/23 09:33 04/07/23 09:30 04/07/23 08:00 Temperature Pulse Rate 86 94 Respiratory Rate Blood Pressure Pu
--- NOTE | 2023-04-07 14:22 | P.PNNP_ITS ---
Progress Note: A&P Assessment and Plan (1) SAEID (acute kidney injury): Code(s): N17.9 - Acute kidney failure, unspecified Status: Acute Assessment and Plan: * significant decline as noted by admission labs * likely secondary to rhabdomyolysis given elevated CPK with resultant ATN * evaluation to date: * renal ultrasound okay * CPK elevated on admission (but trending down now) * urine electrolytes non-prerenal * no evidence of infection * holding THOM-I and metformin * initially minimal urine output - no significant response to trial of IV diuretics * improvement in UOP in the last 24 - 48 hours * follow trend of repeat labs and UOP * given ongoing worsening of renal function with questionable signs of uremia and the development of fluid retention, initiated on hemodialysis * hold HD today -- possible HD tomorrow depending on labs and UOP (2) Stage 3b chronic kidney disease: Code(s): N18.32 - Chronic kidney disease, stage 3b Status: Chronic Assessment and Plan: * baseline creatinine runs ~ 1.6 - 1.9mg/dl * based on outpatient evaluation, thought to be due to diabetes, hypertension, and possibly vascular disease * follows with Dr. Colmenares for CKD management (3) Rhabdomyolysis: Qualifiers: Rhabdomyolysis type: non-traumatic Qualified Code(s): M62.82 - Rhabdomyolysis Code(s): M62.82 - Rhabdomyolysis Status: Acute Assessment and Plan: * presumably due to prolonged down time on floor (~18 hours) following loss of consciousness * follow trend of CPK - improving * fall precautions (4) Loss of consciousness: Code(s): R40.20 - Unspecified coma Status: Acute Assessment and Plan: * etiology? * CT of head normal * no focal deficits * no reported seizure activity * EKG and troponins noted * continue supportive therapy (5) Hypertension: Code(s): I10 - Essential (primary) hypertension Status: Chronic Assessment and Plan: * reasonable control at this time * THOM-I on hold * follow trend of hemodynamics Will continue to follow Subjective Date/time seen: 04/07/23 14:22 Interval history: Follow-up for acute kidney injury/acute renal failure on chronic kidney disease and rhabdomyolysis. Tolerated dialysis treatment yesterday without any issues or problems; impro vement in urine output noted in the last 24 hours; no issues/events overnight or earlier this AM; CPK continues to down trend as well; no apparent distress voiced. Exam Narrative: General: WD/WN AA female in NAD Heart: normal S1 and S2; no rub Lungs: clear to auscultation Abdomen: soft, nontender, nondistended, positive bowel sounds Extremities: no cyanosis or clubbing; trace edema Skin: warm and intact Objective Data Vital Signs Vital Signs: Vital Signs Temp Pulse Resp BP Pulse Ox O2 Del Method 04/07/23 14:12 97.7 F 89 18 141/70 H 100 04/07/23 08:00 94 04/07/23 09:30 Room Air 04/07/23 09:33 86 04/07/23 08:29 92 159/96 H 100 04/07/23 05:57 97.4 F L 89 21 H 153/79 H 100 04/07/23 04:00 89 04/07/23 00:00 87 04/06/23 20:00 84 04/06/23 22:00 97.5 F L 82 21 H 153/76 H 100 04/06/23 20:00 Room Air 04/06/23 21:10 86
--- NOTE | 2023-04-07 14:22 | PM.PNNEP ---
Progress Note: A&P Assessment and Plan (1) SAEID (acute kidney injury): Code(s): N17.9 - Acute kidney failure, unspecified Status: Acute Assessment and Plan: significant decline as noted by admission labs likely secondary to rhabdomyolysis given elevated CPK with resultant ATN evaluation to date: renal ultrasound okay CPK elevated on admission (but trending down now) urine electrolytes non-prerenal no evidence of infection holding THOM-I and metformin initially minimal urine output - no significant response to trial of IV diuretics improvement in UOP in the last 24 - 48 hours follow trend of repeat labs and UOP given ongoing worsening of renal function with questionable signs of uremia and the development of fluid retention, initiated on hemodialysis hold HD today -- possible HD tomorrow depending on labs and UOP (2) Stage 3b chronic kidney disease: Code(s): N18.32 - Chronic kidney disease, stage 3b Status: Chronic Assessment and Plan: baseline creatinine runs ~ 1.6 - 1.9mg/dl based on outpatient evaluation, thought to be due to diabetes, hypertension, and possibly vascular disease follows with Dr. Colmenares for CKD management (3) Rhabdomyolysis: Qualifiers: Rhabdomyolysis type: non-traumatic Qualified Code(s): M62.82 - Rhabdomyolysis Code(s): M62.82 - Rhabdomyolysis Status: Acute Assessment and Plan: presumably due to prolonged down time on floor (~18 hours) following loss of consciousness follow trend of CPK - improving fall precautions (4) Loss of consciousness: Code(s): R40.20 - Unspecified coma Status: Acute Assessment and Plan: etiology? CT of head normal no focal deficits no reported seizure activity EKG and troponins noted continue supportive therapy (5) Hypertension: Code(s): I10 - Essential (primary) hypertension Status: Chronic Assessment and Plan: reasonable control at this time THOM-I on hold follow trend of hemodynamics Will continue to follow Subjective Date/time seen: 04/07/23 14:22 Interval history: Follow-up for acute kidney injury/acute renal failure on chronic kidney disease and rhabdomyolysis. Tolerated dialysis treatment yesterday without any issues or problems; improvement in urine output noted in the last 24 hours; no issues/events overnight or earlier this AM; CPK continues to down trend as well; no apparent distress voiced. Exam Narrative: General: WD/WN AA female in NAD Heart: normal S1 and S2; no rub Lungs: clear to auscultation Abdomen: soft, nontender, nondistended, positive bowel sounds Extremities: no cyanosis or clubbing; trace edema Skin: warm and intact Objective Data Vital Signs Vital Signs: Vital Signs Temp Pulse Resp BP Pulse Ox O2 Del Method 04/07/23 14:12 97.7 F 89 18 141/70 H 100 04/07/23 08:00 94 04/07/23 09:30 Room Air 04/07/23 09:33 86 04/07/23 08:29 92 159/96 H 100 04/07/23 05:57 97.4 F L 89 21 H 153/79 H 100 04/07/23 04:00 89 04/07/23 00:00 87 04/06/23 20:00 84 04/06/23 22:00 97.5 F L 82 21 H 153/76 H 100 04/06/23 20:00 Room Air 04/06/23 21:10 86 04/06/23 16:00 76 Intake/Output Intake/Output: Intake & Output 04/04/23 04/05/23 04/06/23 04/07/23 23:59 23:59 23:59 23:59 Intake Total 2665 1520 1700 1260 Output Total 755 550 750 300 Balance 1910 970 950 960 Meds/Results Medications: Active Medications Generic Name Dose Route Start Last Admin Trade Name Freq PRN Reason Stop Dose Admin Acetaminophen 650 mg 03/30/23 22:24 04/06/23 21:10 Acetaminophen 325 Mg Tablet PO 650 mg Q4H PRN Administration Mild Pain (1-3) or Fever Dextrose 12.5 gm 03/30/23 22:24 Dextrose 50% 25 Gm/50 Ml Syringe IV PUSH PRN PRN Hypoglycemia Protocol Fentanyl Citrate 25 mcg 04/03
[2023-04-07 17:23] LABS: Glucose Point of Care 113 mg/dl (65-105)
[2023-04-07 21:49] LABS: Glucose Point of Care 139 mg/dl (65-105)
[2023-04-08] VITALS (27 sets, daily range): BP systolic 141–210; BP diastolic 65–102; PULSE 84–95; RESP 16–21; TEMP 36–36.9; O2SAT 95–100
[2023-04-08 05:32] LABS: Hemoglobin 9.6 g/dL (12.0-15.0); Mean Corpuscular Hemoglobin 29.2 pg (26-34); Mean Corpuscular Volume 91.2 fl (80-100); Mean Platelet Volume 9.9 fl (7.4-10.4); Platelet Count Result 239 k/mm3 (150-375); Red Blood Count 3.29 M/mm3 (4.2-5.4); Red Cell Distribution Width 14.5 % (11.5-14.5); White Blood Count 10.9 K/mm3 (4.5-10.0)
[2023-04-08 05:37] LABS: Anion Gap 5 mmol/L (8-16); Blood Urea Nitrogen 36 mg/dL (7-17); Calcium 9.6 mg/dL (8.4-10.2); Carbon Dioxide 25 mmol/L (22-30); Chloride 101 mmol/L (98-107); Estimated CRCL calculation 9 ml/min; Estimated Glomerular Filt Rate 6; Glucose 103 mg/dL (65-110); Phosphorus 4.6 mg/dL (2.5-4.5); Potassium 3.9 mmol/L (3.4-5.0); Sodium 131 mmol/L (137-145)
[2023-04-08 06:27] LABS: Hepatitis B Core Ab Total Nonreactive (Nonreactive)
--- NOTE | 2023-04-08 08:03 | PM.IMPN ---
Progress Note: A&P Assessment and Plan (1) Rhabdomyolysis: Code(s): M62.82 - Rhabdomyolysis Status: Acute Assessment and Plan: - pt requiring emergent dialysis for severe SAEID - patient now on hemodialysis (2) SAEID (acute kidney injury): Code(s): N17.9 - Acute kidney failure, unspecified Status: Acute Assessment and Plan: -patient with baseline creatinine of 1.5 on December 2021 - has evidence of rhabdomyolysis with elevated CPK levels - watch kidney function daily - pt will catheter bag in situ - pt having dialysis next due on Tuesday - nephrology rounding (3) Loss of consciousness: Code(s): R40.20 - Unspecified coma Status: Acute Assessment and Plan: -resolved -CT head negative for any acute lesions -neuro nonfocal (4) Shoulder pain, left: Code(s): M25.512 - Pain in left shoulder Status: Acute Assessment and Plan: MRI left shoulder showed mild supraspinatus tendinopathy with swelling concerning for myopathy versus bursitis, likely secondary to rhabdomyolysis, also noted AC osteoarthritis Continue analgesics prn, PT/OT Plan Abnormal CT spine- multiple sub 6 mm pulmonary nodules- will need dedicated ct chest on a nonemergent basis Elevated leuk - likely stress reaction wcc has normalized since will order UA to rule out UTI, follow-up urine culture DVT prophylaxis with SCDs GI prophylaxis not indicated Code status full code Subjective Date/time seen: 04/08/23 08:03 Interval history: No overnight events noted. No chest pain or shortness of breath. No nausea, vomiting or diarrhea. No fevers or chills. Being dialyzed Tuesday, Tuesday, Tuesday. Review of Systems Review of Systems: 12 point review of systems was assessed and was negative except as noted in the HPI Exam Narrative: General: No acute distress, alert and oriented per baseline HEENT: Atraumatic, normocephalic, mucous membranes moist CV: Regular rate and rhythm, S1, S2 Lungs: Clear to auscultation bilaterally, no rales or crackles noted, no wheezes, good air entry Abdomen: Soft, nontender, nondistended Extremities: Normal to inspection Skin: No rashes noted, no lesions or wounds seen Psych: Euthymic, normal affect Objective Data Vital Signs Vital Signs: Vital Signs - 24 hr 04/07/23 08:29 04/07/23 09:33 04/07/23 09:30 Temperature Pulse Rate 92 86 Respiratory Rate Blood Pressure 159/96 H Pulse Oximetry 100 Oxygen Delivery Room Air 04/07/23 14:12 04/07/23 12:00 04/07/23 16:00 Temperature 97.7 F Pulse Rate 89 71 86 Respiratory Rate 18 Blood Pressure 141/70 H Pulse Oximetry 100 Oxygen Delivery 04/07/23 20:20 04/07/23 20:24 04/07/23 20:00 Temperature Pulse Rate 90 Respiratory Rate Blood Pressure 187/81 H Pulse Oximetry Oxygen Delivery Room Air 04/07/23 20:00 04/08/23 00:00 04/08/23 04:00 Temperature Pulse Rate 93 89 90 Respiratory Rate Blood Pressure Pulse Oximetry Oxygen Delivery 04/08/23 06:25 04/07/23 20:20 Temperature 98.4 F 98.4 F Pulse Rate 89 89 Respiratory Rate 21 H 21 H Blood Pressure 153/65 H 187/81 H Pulse Oximetry 100 100 Oxygen Delivery Intake/Output Intake/Output: Intake & Output 04/05/23 04/06/23 04/07/23 04/08/23 23:59 23:59 23:59 23:59 Intake Total 1520 1700 2580 400 Output Total 550 750 575 200 Balance 607 156 5045 200 Meds/Results Medications: Active Medications Generic Name Dose Route Start Last Admin Trade Name Freq PRN Reason Stop Dose Admin Acetaminophen 650 mg 03/30/23 22:24 04/06/23 21:10 Acetaminophen 325 Mg Tablet PO 650 mg Q4H PRN Administration Mild Pain (1-3) or Fever Dextrose 12.5 gm 03/30/23 22:24 Dextrose 50% 25 Gm/50 Ml Syringe IV PUSH PRN PRN Hypoglycemia Protocol Epoetin Isac-epbx 10,000 units 04/08/23 20:11 Epoetin Isac-Epbx 10,000 Units/Ml
[2023-04-08 08:21] LABS: Glucose Point of Care 103 mg/dl (65-105)
--- NOTE | 2023-04-08 09:35 | PCPTNOTE ---
Treatment not completed at this time due to patient out of the room for dialysis. Will check back in the PM per PT plan of care.
[2023-04-08] MEDS: EPOETIN ALFA-EPBX 10,000 UNITS/ML VIAL 10000 UNITS IV PUSH (10:17)
[2023-04-08] MEDS: LABETALOL HCL 100 MG TABLET 200 MG PO (11:18)
[2023-04-08] MEDS: hydrALAZINE HCL 25 MG TABLET PO ×3 (11:20→20:33)
[2023-04-08] MEDS: VERAPAMIL HCL ER 240 MG TABLET.ER PO (11:20)
--- NOTE | 2023-04-08 12:05 | PM.PNNEP ---
Progress Note: A&P Assessment and Plan (1) SAEID (acute kidney injury): Code(s): N17.9 - Acute kidney failure, unspecified Status: Acute Assessment and Plan: significant decline as noted by admission labs likely secondary to rhabdomyolysis given elevated CPK resulting in ATN evaluation to date: renal ultrasound okay CPK elevated on admission (but trending down now) urine electrolytes non-prerenal no evidence of infection holding THOM-I and metformin initially minimal urine output - no significant response to trial of IV diuretics improvement in UOP in the last 24 - 48 hours follow trend of repeat labs and UOP given ongoing worsening of renal function with questionable signs of uremia and the development of fluid retention, initiated on hemodialysis (on 04/03/23) HD today -- plan to hold HD over the weekend (2) Stage 3b chronic kidney disease: Code(s): N18.32 - Chronic kidney disease, stage 3b Status: Chronic Assessment and Plan: baseline creatinine runs ~ 1.6 - 1.9mg/dl based on outpatient evaluation, thought to be due to diabetes, hypertension, and possibly vascular disease follows with Dr. Colmenares for CKD management (3) Rhabdomyolysis: Code(s): M62.82 - Rhabdomyolysis Status: Acute Assessment and Plan: presumably due to prolonged down time on floor (~18 hours) following loss of consciousness follow trend of CPK - improving fall precautions (4) Loss of consciousness: Code(s): R40.20 - Unspecified coma Status: Acute Assessment and Plan: etiology? CT of head normal no focal deficits no reported seizure activity EKG and troponins noted continue supportive therapy (5) Hypertension: Code(s): I10 - Essential (primary) hypertension Status: Chronic Assessment and Plan: running high THOM-I on hold will increase labetalol dosage follow trend of hemodynamics Will continue to follow Subjective Date/time seen: 04/08/23 12:05 Interval history: Follow-up for acute kidney injury/acute renal failure on chronic kidney disease and rhabdomyolysis. Tolerating dialysis at the time of my visit (seen on HD at 11:55AM); increasing urine output noted in the last 24 - 48 hours; BP running high (although BP medications were held this AM due to planned HD treatment); no other acute issues/problems voiced; no events overnight or earlier this morning. Exam Narrative: General: WD/WN AA female in NAD Heart: normal S1 and S2; no rub Lungs: clear to auscultation Abdomen: soft, nontender, nondistended, positive bowel sounds Extremities: no cyanosis or clubbing; trace edema Skin: no rash Objective Data Vital Signs Vital Signs: Vital Signs Temp Pulse Resp BP Pulse Ox O2 Del Method 04/08/23 12:00 90 174/88 H 04/08/23 12:00 87 04/08/23 08:00 90 04/08/23 11:40 88 200/98 H 04/08/23 11:20 90 197/96 H 04/08/23 11:18 92 04/08/23 11:00 89 210/94 H 04/08/23 10:40 89 199/102 H 04/08/23 10:20 88 200/98 H 04/08/23 10:00 91 204/88 H 04/08/23 08:00 Room Air 04/08/23 09:40 88 187/92 H 04/08/23 09:20 87 184/96 H 04/08/23 09:00 87 193/96 H 04/08/23 08:46 87 190/93 H 04/08/23 08:41 98.1 F 90 20 191/89 H 04/07/23 20:20 98.4 F 89 21 H 187/81 H 100 04/08/23 06:25 98.4 F 89 21 H 153/65 H 100 04/08/23 04:00 90 04/08/23 00:00 89 04/07/23 20:00 93 04/07/23 20:00 Room Air 04/07/23 20:24 90 04/07/23 20:20 187/81 H 04/07/23 16:00 86 04/07/23 14:12 97.7 F 89 18 141/70 H 100 Intake/Output Intake/Output: Intake & Output 04/05/23 04/06/23 04/07/23 04/08/23 23:59 23:59 23:59 23:59 Intake Total 1520 1700 2580 400 Output Total 550 750 575 200 Balance 126 725 9819 200 Meds/Results Medications: Active Medications Generic
--- NOTE | 2023-04-08 12:05 | P.PNNP_ITS ---
Progress Note: A&P Assessment and Plan (1) SAEID (acute kidney injury): Code(s): N17.9 - Acute kidney failure, unspecified Status: Acute Assessment and Plan: * significant decline as noted by admission labs * likely secondary to rhabdomyolysis given elevated CPK resulting in ATN * evaluation to date: * renal ultrasound okay * CPK elevated on admission (but trending down now) * urine electrolytes non-prerenal * no evidence of infection * holding THOM-I and metformin * initially minimal urine output - no significant response to trial of IV diuretics * improvement in UOP in the last 24 - 48 hours * follow trend of repeat labs and UOP * given ongoing worsening of renal function with questionable signs of uremia a nd the development of fluid retention, initiated on hemodialysis (on 04/03/23) * HD today -- plan to hold HD over the weekend (2) Stage 3b chronic kidney disease: Code(s): N18.32 - Chronic kidney disease, stage 3b Status: Chronic Assessment and Plan: * baseline creatinine runs ~ 1.6 - 1.9mg/dl * based on outpatient evaluation, thought to be due to diabetes, hypertension, and possibly vascular disease * follows with Dr. Colmenares for CKD management (3) Rhabdomyolysis: Code(s): M62.82 - Rhabdomyolysis Status: Acute Assessment and Plan: * presumably due to prolonged down time on floor (~18 hours) following loss of consciousness * follow trend of CPK - improving * fall precautions (4) Loss of consciousness: Code(s): R40.20 - Unspecified coma Status: Acute Assessment and Plan: * etiology? * CT of head normal * no focal deficits * no reported seizure activity * EKG and troponins noted * continue supportive therapy (5) Hypertension: Code(s): I10 - Essential (primary) hypertension Status: Chronic Assessment and Plan: * running high * THOM-I on hold * will increase labetalol dosage * follow trend of hemodynamics Will continue to follow Subjective Date/time seen: 04/08/23 12:05 Interval history: Follow-up for acute kidney injury/acute renal failure on chronic kidney disease and rhabdomyolysis. Tolerating dialysis at the time of my visit (seen on HD at 11:55AM); increasing urine output noted in the last 24 - 48 hours; BP running high (although BP medications were held this AM due to planned HD treatment); no other acute issues/problems voiced; no events overnight or earlier this morning. Exam Narrative: General: WD/WN AA female in NAD Heart: normal S1 and S2; no rub Lungs: clear to auscultation Abdomen: soft, nontender, nondistended, positive bowel sounds Extremities: no cyanosis or clubbing; trace edema Skin: no rash Objective Data Vital Signs Vital Signs: Vital Signs Temp Pulse Resp BP Pulse Ox O2 Del Method 04/08/23 12:00 90 174/88 H 04/08/23 12:00 87 04/08/23 08:00 90 04/08/23 11:40 88 200/98 H 04/08/23 11:20 90 197/96 H 04/08/23 11:18 92 04/08/23 11:00 89 210/94 H 04/08/23 10:40 89 199/102 H 04/08/23 10:20 88 200/98 H 04/08/23 10:00 91 204/88 H 04/08/23 08:00 Room Air 04/08/23 09:40 88 187/92 H 04/08/23 09:20 87 184/96 H 04/08/23 09:00 87 193/96 H
--- NOTE | 2023-04-08 12:51 | PCOTNOTE ---
The patient treatment was not able to be completed on 04/08 due to patient being at dialysis. Will plan to continue treatment per plan of care.
[2023-04-08 13:16] LABS: Glucose Point of Care 128 mg/dl (65-105)
--- NOTE | 2023-04-08 13:30 | PCOTNOTE ---
Attempted to see Patient this afternoon. Patient was unavailable this A.M. due to being in dialysis. Patient has returned to her room and finished eating lunch. Patient refused to perform treatment this date due to feeling tired after having dialysis. Patient requested to start over in the morning and perform a shower.
[2023-04-08] MEDS: HEPARIN SODIUM 5,000 UNITS/ML VIAL 5000 UNITS SUB-Q ×2 (15:44→20:32)
[2023-04-08 16:54] LABS: Glucose Point of Care 126 mg/dl (65-105)
[2023-04-08] MEDS: LABETALOL HCL 100 MG TABLET 300 MG PO (20:32)
[2023-04-08 22:25] LABS: Glucose Point of Care 125 mg/dl (65-105)
[2023-04-09] VITALS (13 sets, daily range): BP systolic 100–169; BP diastolic 52–74; PULSE 64–98; RESP 16–18; TEMP 36.4–36.9; O2SAT 98–100
[2023-04-09 05:25] LABS: Albumin Level 2.9 g/dL (3.5-5.1); Anion Gap 5 mmol/L (8-16); Blood Urea Nitrogen 24 mg/dL (7-17); Calcium 9.3 mg/dL (8.4-10.2); Carbon Dioxide 26 mmol/L (22-30); Chloride 103 mmol/L (98-107); Estimated CRCL calculation 12 ml/min; Estimated Glomerular Filt Rate 9; Glucose 100 mg/dL (65-110); Phosphorus 3.9 mg/dL (2.5-4.5); Sodium 134 mmol/L (137-145)
--- NOTE | 2023-04-09 07:47 | PM.IMPN ---
Progress Note: A&P Assessment and Plan (1) Rhabdomyolysis: Code(s): M62.82 - Rhabdomyolysis Status: Acute Assessment and Plan: pt requiring emergent dialysis for severe SAEID patient now on hemodialysis improving, hold HD over weekend, reassess April 15 Urine output is increasing (2) SAEID (acute kidney injury): Code(s): N17.9 - Acute kidney failure, unspecified Status: Acute Assessment and Plan: patient with baseline creatinine of 1.5 on December 2021 has evidence of rhabdomyolysis with elevated CPK levels watch kidney function daily appreciate nephrology consultation (3) Loss of consciousness: Code(s): R40.20 - Unspecified coma Status: Acute Assessment and Plan: resolved CT head negative for any acute lesions neuro nonfocal (4) Shoulder pain, left: Code(s): M25.512 - Pain in left shoulder Status: Acute Assessment and Plan: MRI left shoulder showed mild supraspinatus tendinopathy with swelling concerning for myopathy versus bursitis, likely secondary to rhabdomyolysis, also noted AC osteoarthritis Continue analgesics prn, PT/OT Plan Abnormal CT spine - multiple sub 6 mm pulmonary nodules- will need dedicated ct chest on a nonemergent basis Elevated leuk - likely stress reaction, has normalized since will order UA to rule out UTI, urine cx neg DVT prophylaxis with SCDs GI prophylaxis not indicated Code status full code Subjective Date/time seen: 04/09/23 07:47 Interval history: No overnight events noted. No chest pain or shortness of breath. No nausea, vomiting or diarrhea. No fevers or chills. Patient states she feels great and is having more urine output. Being dialyzed Tuesday, Tuesday, Tuesday. Review of Systems Review of Systems: 12 point review of systems was assessed and was negative except as noted in the HPI Exam Narrative: General: No acute distress, alert and oriented per baseline HEENT: Atraumatic, normocephalic, mucous membranes moist CV: Regular rate and rhythm, S1, S2 Lungs: Clear to auscultation bilaterally, no rales or crackles noted, no wheezes, good air entry Abdomen: Soft, nontender, nondistended Extremities: Normal to inspection Skin: No rashes noted, no lesions or wounds seen Psych: Euthymic, normal affect Objective Data Vital Signs Vital Signs: Vital Signs - 24 hr 04/08/23 08:41 04/08/23 08:46 04/08/23 09:00 Temperature 98.1 F Pulse Rate 90 87 87 Respiratory Rate 20 Blood Pressure 191/89 H 190/93 H 193/96 H Pulse Oximetry Oxygen Delivery Fraction of Inspired Oxygen 04/08/23 09:20 04/08/23 09:40 04/08/23 08:00 Temperature Pulse Rate 87 88 Respiratory Rate Blood Pressure 184/96 H 187/92 H Pulse Oximetry Oxygen Delivery Room Air Fraction of Inspired Oxygen 04/08/23 10:00 04/08/23 10:20 04/08/23 10:40 Temperature Pulse Rate 91 88 89 Respiratory Rate Blood Pressure 204/88 H 200/98 H 199/102 H Pulse Oximetry Oxygen Delivery Fraction of Inspired Oxygen 04/08/23 11:00 04/08/23 11:18 04/08/23 11:20 Temperature Pulse Rate 89 92 90 Respiratory Rate Blood Pressure 210/94 H 197/96 H Pulse Oximetry Oxygen Delivery Fraction of Inspired Oxygen 04/08/23 11:40 04/08/23 08:00 04/08/23 12:00 Temperature Pulse Rate 88 90 87 Respiratory Rate Blood Pressure 200/98 H Pulse Oximetry Oxygen Delivery Fraction of Inspired Oxygen 04/08/23 12:00 04/08/23 12:20 04/08/23 12:39 Temperature Pulse Rate 90 91 88 Respiratory Rate Blood Pressure 174/88 H 191/96 H 197/89 H Pulse Oximetry Oxygen Delivery Fraction of Inspired Oxygen 04/08/23 12:40 04/08/23 14:29 04/08/23 15:42 Temperature 98.1 F 98.2 F Pulse Rate 89 88 93 Respiratory Rate 20 19 Blood Pressure 188/92 H 148/68 H 159/66 H Pulse Oximetry 99 Oxygen Delivery Fraction of Inspired Oxyg
[2023-04-09 08:23] LABS: Glucose Point of Care 100 mg/dl (65-105)
[2023-04-09 08:49] LABS: Alanine Aminotransferase 56 U/L (6-35); Albumin Level 2.9 g/dL (3.5-5.1); Alkaline Phosphatase 65 U/L (38-126); Anion Gap 6 mmol/L (8-16); Aspartate Amino Transferase 47 U/L (14-36); Bilirubin,Total 0.5 mg/dL (0.2-1.3); Blood Urea Nitrogen 25 mg/dL (7-17); Calcium 9.4 mg/dL (8.4-10.2); Carbon Dioxide 25 mmol/L (22-30); Chloride 103 mmol/L (98-107); Estimated CRCL calculation 11 ml/min; Estimated Glomerular Filt Rate 9; Glucose 97 mg/dL (65-110); Sodium 134 mmol/L (137-145)
[2023-04-09 08:58] LABS: Creatine Kinase 213 U/L (30-135)
[2023-04-09 09:16] LABS: Basophils Absolute Auto 0.1 K/mm3 (0.0-0.1); Basophils Percent Auto 0.5 % (0.2-1.2); Eosinophils Absolute Auto 0.5 K/mm3 (0-0.3); Eosinophils Percent Auto 4.2 % (0-4.4); Hematocrit 29.4 % (37.0-47.0); Hemoglobin 9.2 g/dL (12.0-15.0); Immature Granulocyte Percent A 0.9 % (0-0.5); Lymphocytes Absolute Auto 2.19 K/mm3 (0.9-3.2); Lymphocytes Percent Auto 18.7 % (18.3-44.2); Mean Corpuscular HGB Conc 31.3 g/dl (32-36); Mean Corpuscular Hemoglobin 29.1 pg (26-34); Mean Platelet Volume 10.3 fl (7.4-10.4); Monocytes Absolute Auto 1.5 K/mm3 (0.1-0.6); Monocytes Percent Auto 12.6 % (2.6-8.5); Neutrophils Absolute Auto 7.4 K/mm3 (1.3-6.7); Neutrophils Percent Auto 63.1 % (45.5-73.1); Nucleated Red Blood Cells Absolute Auto 0.1 K/mm3 (0.0-0.012); Nucleated Red Blood Cells Perc 0.5 % (0.0-0.2); Platelet Count Result 260 k/mm3 (150-375); Red Blood Count 3.16 M/mm3 (4.2-5.4); Red Cell Distribution Width 14.8 % (11.5-14.5); White Blood Count 11.7 K/mm3 (4.5-10.0)
[2023-04-09] MEDS: VERAPAMIL HCL ER 240 MG TABLET.ER PO (09:40)
[2023-04-09] MEDS: hydrALAZINE HCL 25 MG TABLET PO ×3 (09:40→20:42)
[2023-04-09] MEDS: LABETALOL HCL 100 MG TABLET 300 MG PO ×2 (09:41→20:42)
[2023-04-09] MEDS: HEPARIN SODIUM 5,000 UNITS/ML VIAL 5000 UNITS SUB-Q ×2 (09:41→20:42)
[2023-04-09 12:06] LABS: Glucose Point of Care 168 mg/dl (65-105)
--- NOTE | 2023-04-09 14:44 | P.PNNP_ITS ---
Progress Note: A&P Assessment and Plan (1) SAEID (acute kidney injury): Code(s): N17.9 - Acute kidney failure, unspecified Status: Acute Assessment and Plan: * significant decline as noted by admission labs * evaluation to date: * renal ultrasound okay * CPK elevated on admission (but trending down now) * urine electrolytes non-prerenal * no evidence of infection * Etiology unclear. She did have an elevated CK from lying on the floor for 12hours but all that happened within 24hours of admission so it is unlikely that her creatinine taya from 2-4.5 in [id number]. So I think that she might have had something else going on. Possibly she was dehydrated. She said she was not eating and drinking well for a few days before all that happened. * She had dialysis and the numbers are better now. She is making more urine and may have improvement in renal function. * Will check another creatinine tomorrow on Tuesday and decide about dialysis on on Tuesday. (2) Stage 3b chronic kidney disease: Code(s): N18.32 - Chronic kidney disease, stage 3b Status: Chronic Assessment and Plan: * baseline creatinine runs ~ 1.6 - 1.9mg/dl * based on outpatient evaluation, thought to be due to diabetes, hypertension, and possibly vascular disease * follows with Dr. Colmenares for CKD management (3) Rhabdomyolysis: Code(s): M62.82 - Rhabdomyolysis Status: Acute Assessment and Plan: * presumably due to prolonged down time on floor (~18 hours) following loss of consciousness * follow trend of CPK - improving * fall precautions (4) Loss of consciousness: Code(s): R40.20 - Unspecified coma Status: Acute Assessment and Plan: * etiology? * CT of head normal * no focal deficits * no reported seizure activity * EKG and troponins noted * Consider seizures etc.. She was completely unconscious for 8hours. * Check a MRI brain * continue supportive therapy (5) Hypertension: Code(s): I10 - Essential (primary) hypertension Status: Chronic Assessment and Plan: * Better today with a systolic between 101 40 * On labetalol Subjective Date/time seen: 04/09/23 14:44 Interval history: Patient is alert. She is feeling better. No aches or pains. She had dialysis yesterday and did well. Exam Narrative: General: WD/WN AA female in NAD Heart: normal S1 and S2; no rub or gallop Lungs: clear Abdomen: soft, nontender, nondistended, positive bowel sounds Extremities: no cyanosis or clubbing; trace edema Skin: no rash or subQ nodules Objective Data Vital Signs Vital Signs: Vital Signs - 24 hr 04/08/23 15:42 04/08/23 16:00 04/08/23 19:30 Temperature 98.5 F Pulse Rate 93 92 95 Respiratory Rate 16 Blood Pressure 159/66 H 156/70 H Pulse Oximetry 95 Oxygen Delivery Fraction of Inspired Oxygen 04/08/23 23:50 04/08/23 20:00 04/08/23 20:00 Temperature 98.5 F Pulse Rate 90 84 90 Respiratory Rate 16 16 Blood Pressure 141/66 H Pulse Oximetry 97 97 Oxygen Delivery Room Air Fraction of Inspired Oxygen 21 04/09/23 00:00 04/09/23 04:00 04/09/23 04:00 Temperature 98.5 F Pulse Rate 90 96 91 Respirator
--- NOTE | 2023-04-09 14:44 | PM.PNNEP ---
Progress Note: A&P Assessment and Plan (1) SAEID (acute kidney injury): Code(s): N17.9 - Acute kidney failure, unspecified Status: Acute Assessment and Plan: significant decline as noted by admission labs evaluation to date: renal ultrasound okay CPK elevated on admission (but trending down now) urine electrolytes non-prerenal no evidence of infection Etiology unclear. She did have an elevated CK from lying on the floor for 12hours but all that happened within 24hours of admission so it is unlikely that her creatinine taya from 2-4.5 in [id number]. So I think that she might have had something else going on. Possibly she was dehydrated. She said she was not eating and drinking well for a few days before all that happened. She had dialysis and the numbers are better now. She is making more urine and may have improvement in renal function. Will check another creatinine tomorrow on Tuesday and decide about dialysis on on Tuesday. (2) Stage 3b chronic kidney disease: Code(s): N18.32 - Chronic kidney disease, stage 3b Status: Chronic Assessment and Plan: baseline creatinine runs ~ 1.6 - 1.9mg/dl based on outpatient evaluation, thought to be due to diabetes, hypertension, and possibly vascular disease follows with Dr. Colmenares for CKD management (3) Rhabdomyolysis: Code(s): M62.82 - Rhabdomyolysis Status: Acute Assessment and Plan: presumably due to prolonged down time on floor (~18 hours) following loss of consciousness follow trend of CPK - improving fall precautions (4) Loss of consciousness: Code(s): R40.20 - Unspecified coma Status: Acute Assessment and Plan: etiology? CT of head normal no focal deficits no reported seizure activity EKG and troponins noted Consider seizures etc.. She was completely unconscious for 8hours. Check a MRI brain continue supportive therapy (5) Hypertension: Code(s): I10 - Essential (primary) hypertension Status: Chronic Assessment and Plan: Better today with a systolic between 101 40 On labetalol Subjective Date/time seen: 04/09/23 14:44 Interval history: Patient is alert. She is feeling better. No aches or pains. She had dialysis yesterday and did well. Exam Narrative: General: WD/WN AA female in NAD Heart: normal S1 and S2; no rub or gallop Lungs: clear Abdomen: soft, nontender, nondistended, positive bowel sounds Extremities: no cyanosis or clubbing; trace edema Skin: no rash or subQ nodules Objective Data Vital Signs Vital Signs: Vital Signs - 24 hr 04/08/23 15:42 04/08/23 16:00 04/08/23 19:30 Temperature 98.5 F Pulse Rate 93 92 95 Respiratory Rate 16 Blood Pressure 159/66 H 156/70 H Pulse Oximetry 95 Oxygen Delivery Fraction of Inspired Oxygen 04/08/23 23:50 04/08/23 20:00 04/08/23 20:00 Temperature 98.5 F Pulse Rate 90 84 90 Respiratory Rate 16 16 Blood Pressure 141/66 H Pulse Oximetry 97 97 Oxygen Delivery Room Air Fraction of Inspired Oxygen 21 04/09/23 00:00 04/09/23 04:00 04/09/23 04:00 Temperature 98.5 F Pulse Rate 90 96 91 Respiratory Rate 16 Blood Pressure 169/74 H Pulse Oximetry 98 Oxygen Delivery Fraction of Inspired Oxygen 04/09/23 09:38 04/09/23 09:41 04/09/23 08:00 Temperature 98.1 F Pulse Rate 98 92 95 Respiratory Rate 17 Blood Pressure 158/72 H Pulse Oximetry 99 Oxygen Delivery Fraction of Inspired Oxygen 04/09/23 09:40 04/09/23 11:10 04/09/23 12:00 Temperature 97.6 F Pulse Rate 83 75 Respiratory Rate 16 Blood Pressure 140/63 Pulse Oximetry 99 Oxygen Delivery Room Air Fraction of Inspired Oxygen 04/09/23 13:45 Temperature 97.7 F Pulse Rate 64 Respiratory Rate 17 Blood Pressure 100/52 L Pulse Oximetry 100 Oxygen Delivery Fraction of Inspired Oxygen Intake/Output Intake/Output: Intake &
[2023-04-09 17:42] LABS: Glucose Point of Care 145 mg/dl (65-105)
[2023-04-09 20:32] LABS: Glucose Point of Care 134 mg/dl (65-105)
[2023-04-10] VITALS (12 sets, daily range): BP systolic 99–176; BP diastolic 50–74; PULSE 64–90; RESP 14–18; TEMP 36.5–36.9; O2SAT 99–100
[2023-04-10 05:15] LABS: Basophils Absolute Auto 0.1 K/mm3 (0.0-0.1); Basophils Percent Auto 0.5 % (0.2-1.2); Eosinophils Absolute Auto 0.4 K/mm3 (0-0.3); Eosinophils Percent Auto 3.2 % (0-4.4); Hematocrit 27.3 % (37.0-47.0); Hemoglobin 8.7 g/dL (12.0-15.0); Immature Granulocyte Absolute 0.07 K/mm3 (0.00-0.031); Immature Granulocyte Percent A 0.6 % (0-0.5); Lymphocytes Absolute Auto 1.76 K/mm3 (0.9-3.2); Lymphocytes Percent Auto 13.9 % (18.3-44.2); Mean Corpuscular HGB Conc 31.9 g/dl (32-36); Mean Corpuscular Hemoglobin 29.6 pg (26-34); Mean Corpuscular Volume 92.9 fl (80-100); Mean Platelet Volume 9.7 fl (7.4-10.4); Monocytes Absolute Auto 1.4 K/mm3 (0.1-0.6); Monocytes Percent Auto 11.4 % (2.6-8.5); Neutrophils Absolute Auto 8.9 K/mm3 (1.3-6.7); Neutrophils Percent Auto 70.4 % (45.5-73.1); Nucleated Red Blood Cells Perc 0.2 % (0.0-0.2); Platelet Count Result 270 k/mm3 (150-375); Red Blood Count 2.94 M/mm3 (4.2-5.4); White Blood Count 12.6 K/mm3 (4.5-10.0)
[2023-04-10 05:30] LABS: Alanine Aminotransferase 33 U/L (6-35); Albumin Level 2.9 g/dL (3.5-5.1); Alkaline Phosphatase 65 U/L (38-126); Anion Gap 5 mmol/L (8-16); Aspartate Amino Transferase 32 U/L (14-36); Bilirubin,Total 0.5 mg/dL (0.2-1.3); Blood Urea Nitrogen 28 mg/dL (7-17); Calcium 9.7 mg/dL (8.4-10.2); Carbon Dioxide 28 mmol/L (22-30); Chloride 100 mmol/L (98-107); Estimated CRCL calculation 9 ml/min; Estimated Glomerular Filt Rate 7; Glucose 102 mg/dL (65-110); Potassium 4.2 mmol/L (3.4-5.0); Sodium 133 mmol/L (137-145)
[2023-04-10 08:07] LABS: Glucose Point of Care 110 mg/dl (65-105)
[2023-04-10] MEDS: LABETALOL HCL 100 MG TABLET 300 MG PO (08:39)
[2023-04-10] MEDS: HEPARIN SODIUM 5,000 UNITS/ML VIAL 5000 UNITS SUB-Q ×2 (08:40→20:34)
[2023-04-10] MEDS: VERAPAMIL HCL ER 240 MG TABLET.ER PO (08:40)
[2023-04-10] MEDS: hydrALAZINE HCL 25 MG TABLET PO ×2 (08:40→17:22)
--- NOTE | 2023-04-10 12:23 | P.PNNP_ITS ---
Progress Note: A&P Assessment and Plan (1) SAEID (acute kidney injury): Code(s): N17.9 - Acute kidney failure, unspecified Status: Acute Assessment and Plan: * Acute on chronic renal insufficiency. * evaluation to date: * renal ultrasound okay * CPK very high on admission and * urine electrolytes non-prerenal * no evidence of infection * Etiology unclear. She did have an elevated CK from lying on the floor for 12hours but all that happened within 24hours of admission so it is unlikely that her creatinine taya from 2-4.5 in [id number]. So I think that she might have had something else going on. Possibly she was dehydrated. She said she was not eating and drinking well for a few days before all that happened. * She had dialysis and the numbers are better now. She is making more urine and may have improvement in renal function. * CK has come down to 213. * check another tomorrow. * Will check another rfp tomorrow and Dr Brown can decide if she needs dialysis tomorrow or can wait. (2) Stage 3b chronic kidney disease: Code(s): N18.32 - Chronic kidney disease, stage 3b Status: Chronic Assessment and Plan: * baseline creatinine runs ~ 1.6 - 1.9mg/dl * based on outpatient evaluation, thought to be due to diabetes, hypertension, and possibly vascular disease (3) Rhabdomyolysis: Code(s): M62.82 - Rhabdomyolysis Status: Acute Assessment and Plan: * presumably due to prolonged down time on floor (~18 hours) following loss of consciousness * follow trend of CPK - improving * fall precautions (4) Loss of consciousness: Code(s): R40.20 - Unspecified coma Status: Acute Assessment and Plan: * etiology? * CT of head normal * no focal deficits * no reported seizure activity * Brain MRI is pending * EKG and troponins noted * continue supportive therapy (5) Hypertension: Code(s): I10 - Essential (primary) hypertension Status: Chronic Assessment and Plan: * Better today with a systolic between 100 and 160 * 99 this am * On labetalol Subjective Date/time seen: 04/10/23 12:23 Interval history: Patient is alert. She is up in a chair. Cousin is in the room. Patient and I discussed the case and I answered her questions. Exam Narrative: General: WD/WN AA female in NAD Heart: normal S1 and S2; no rub Lungs: clear bilaterally Abdomen: soft, nontender, nondistended, positive bowel sounds Extremities: no cyanosis or clubbing; trace edema Skin: no rash Objective Data Vital Signs Vital Signs: Vital Signs - 24 hr 04/09/23 13:45 04/09/23 16:00 04/09/23 17:06 Temperature 97.7 F 97.9 F Pulse Rate 64 67 78 Respiratory Rate 17 18 Blood Pressure 100/52 L 141/68 H Pulse Oximetry 100 100 Oxygen Delivery Fraction of Inspired Oxygen 04/09/23 19:56 04/09/23 20:00 04/09/23 20:00 Temperature 97.7 F Pulse Rate 85 86 86 Respiratory Rate 16 16 Blood Pressure 153/67 H Pulse Oximetry 99 99 Oxygen Delivery Room Air Fraction of Inspired Oxygen 21 04/09/23 23:53 04/10/23 00:00 04/10/23 04:00 Temperature 98.1 F 98.3 F Pulse Rate 87 87 89 Respiratory Rate 16 14
--- NOTE | 2023-04-10 12:23 | PM.PNNEP ---
Progress Note: A&P Assessment and Plan (1) SAEID (acute kidney injury): Code(s): N17.9 - Acute kidney failure, unspecified Status: Acute Assessment and Plan: Acute on chronic renal insufficiency. evaluation to date: renal ultrasound okay CPK very high on admission and urine electrolytes non-prerenal no evidence of infection Etiology unclear. She did have an elevated CK from lying on the floor for 12hours but all that happened within 24hours of admission so it is unlikely that her creatinine taya from 2-4.5 in [id number]. So I think that she might have had something else going on. Possibly she was dehydrated. She said she was not eating and drinking well for a few days before all that happened. She had dialysis and the numbers are better now. She is making more urine and may have improvement in renal function. CK has come down to 213. check another tomorrow. Will check another rfp tomorrow and Dr Brown can decide if she needs dialysis tomorrow or can wait. (2) Stage 3b chronic kidney disease: Code(s): N18.32 - Chronic kidney disease, stage 3b Status: Chronic Assessment and Plan: baseline creatinine runs ~ 1.6 - 1.9mg/dl based on outpatient evaluation, thought to be due to diabetes, hypertension, and possibly vascular disease (3) Rhabdomyolysis: Code(s): M62.82 - Rhabdomyolysis Status: Acute Assessment and Plan: presumably due to prolonged down time on floor (~18 hours) following loss of consciousness follow trend of CPK - improving fall precautions (4) Loss of consciousness: Code(s): R40.20 - Unspecified coma Status: Acute Assessment and Plan: etiology? CT of head normal no focal deficits no reported seizure activity Brain MRI is pending EKG and troponins noted continue supportive therapy (5) Hypertension: Code(s): I10 - Essential (primary) hypertension Status: Chronic Assessment and Plan: Better today with a systolic between 100 and 160 99 this am On labetalol Subjective Date/time seen: 04/10/23 12:23 Interval history: Patient is alert. She is up in a chair. Cousin is in the room. Patient and I discussed the case and I answered her questions. Exam Narrative: General: WD/WN AA female in NAD Heart: normal S1 and S2; no rub Lungs: clear bilaterally Abdomen: soft, nontender, nondistended, positive bowel sounds Extremities: no cyanosis or clubbing; trace edema Skin: no rash Objective Data Vital Signs Vital Signs: Vital Signs - 24 hr 04/09/23 13:45 04/09/23 16:00 04/09/23 17:06 Temperature 97.7 F 97.9 F Pulse Rate 64 67 78 Respiratory Rate 17 18 Blood Pressure 100/52 L 141/68 H Pulse Oximetry 100 100 Oxygen Delivery Fraction of Inspired Oxygen 04/09/23 19:56 04/09/23 20:00 04/09/23 20:00 Temperature 97.7 F Pulse Rate 85 86 86 Respiratory Rate 16 16 Blood Pressure 153/67 H Pulse Oximetry 99 99 Oxygen Delivery Room Air Fraction of Inspired Oxygen 21 04/09/23 23:53 04/10/23 00:00 04/10/23 04:00 Temperature 98.1 F 98.3 F Pulse Rate 87 87 89 Respiratory Rate 16 14 Blood Pressure 155/59 H 160/64 H Pulse Oximetry 98 100 Oxygen Delivery Fraction of Inspired Oxygen 04/10/23 04:00 04/10/23 07:41 04/10/23 08:39 Temperature 98.1 F Pulse Rate 90 89 80 Respiratory Rate 17 Blood Pressure 176/73 H Pulse Oximetry 99 Oxygen Delivery Fraction of Inspired Oxygen 04/10/23 08:00 04/10/23 08:45 Temperature Pulse Rate 88 Respiratory Rate Blood Pressure Pulse Oximetry Oxygen Delivery Room Air Fraction of Inspired Oxygen Intake/Output Intake/Output: Intake & Output 04/07/23 04/08/23 04/09/23 04/10/23 23:59 23:59 23:59 23:59 Intake Total 2670 2830 770 120 Output Total 570 700 425 750 Balance [phone] -751 Meds/Results Medications: Active Medications Gen
[2023-04-10 12:32] LABS: Glucose Point of Care 155 mg/dl (65-105)
--- NOTE | 2023-04-10 14:27 | WPDPN ---
Progress Note: A&P Assessment and Plan (1) Rhabdomyolysis: Code(s): M62.82 - Rhabdomyolysis Status: Acute Assessment and Plan: pt requiring emergent dialysis for severe SAEID patient now on hemodialysis improving, hold HD over weekend, reassess April 15 Urine output is increasing 04/10/2023 interval history: patient acute severe SAEID requiring HD and seen by life sciences teacher her uirne out put is improving, however her Scr is still elevated will need HD, currently sitting in the chair stats feeling much better her daughter present in the room, will continue PT/OT and monitor. (2) SAEID (acute kidney injury): Code(s): N17.9 - Acute kidney failure, unspecified Status: Acute Assessment and Plan: patient with baseline creatinine of 1.5 on December 2021 has evidence of rhabdomyolysis with elevated CPK levels watch kidney function daily appreciate nephrology consultation (3) Loss of consciousness: Code(s): R40.20 - Unspecified coma Status: Acute Assessment and Plan: resolved CT head negative for any acute lesions neuro nonfocal (4) Shoulder pain, left: Code(s): M25.512 - Pain in left shoulder Status: Acute Assessment and Plan: MRI left shoulder showed mild supraspinatus tendinopathy with swelling concerning for myopathy versus bursitis, likely secondary to rhabdomyolysis, also noted AC osteoarthritis Continue analgesics prn, PT/OT Plan Abnormal CT spine - multiple sub 6 mm pulmonary nodules- will need dedicated ct chest on a nonemergent basis Elevated leuk - likely stress reaction, has normalized since will order UA to rule out UTI, urine cx neg DVT prophylaxis with SCDs GI prophylaxis not indicated Code status full code Subjective Date/time seen: 04/10/23 14:27 Interval history: 04/10/2023 interval history: patient acute severe SAEID requiring HD and seen by life sciences teacher her uirne out put is improving, however her Scr is still elevated will need HD, currently sitting in the chair stats feeling much better her daughter present in the room, will continue PT/OT and monitor. Review of Systems Review of Systems: 12 point review of systems was assessed and was negative except as noted in the HPI Objective Data Vital Signs Vital Signs: Vital Signs - 24 hr 04/09/23 16:00 04/09/23 17:06 04/09/23 19:56 Temperature 97.9 F 97.7 F Pulse Rate 67 78 85 Respiratory Rate 18 16 Blood Pressure 141/68 H 153/67 H Pulse Oximetry 100 99 Oxygen Delivery Fraction of Inspired Oxygen 04/09/23 20:00 04/09/23 20:00 04/09/23 23:53 Temperature 98.1 F Pulse Rate 86 86 87 Respiratory Rate 16 16 Blood Pressure 155/59 H Pulse Oximetry 99 98 Oxygen Delivery Room Air Fraction of Inspired Oxygen 21 04/10/23 00:00 04/10/23 04:00 04/10/23 04:00 Temperature 98.3 F Pulse Rate 87 89 90 Respiratory Rate 14 Blood Pressure 160/64 H Pulse Oximetry 100 Oxygen Delivery Fraction of Inspired Oxygen 04/10/23 07:41 04/10/23 08:39 04/10/23 08:00 Temperature 98.1 F Pulse Rate 89 80 88 Respiratory Rate 17 Blood Pressure 176/73 H Pulse Oximetry 99 Oxygen Delivery Fraction of Inspired Oxygen 04/10/23 08:45 04/10/23 12:00 04/10/23 12:36 Temperature 97.7 F Pulse Rate 65 64 Respiratory Rate 18 Blood Pressure 99/50 L Pulse Oximetry 100 Oxygen Delivery Room Air Fraction of Inspired Oxygen Intake/Output Intake/Output: Intake & Output 04/07/23 04/08/23 04/09/23 04/10/23 23:59 23:59 23:59 23:59 Intake Total 2580 2830 770 360 Output Total 575 700 425 750 Balance 2004 8900 345 -390 Meds/Results Medications: Active Medications Generic Name Dose Route Start Last Admin Trade Name Freq PRN Reason Stop Dose Admin Acetaminophen 650 mg 03/30/23 22:24 04/06/23 21:10 Acetaminophen 325 Mg Tablet PO 650 mg Q4H PRN Administration Mild Pain (1-3) or Fever Dext
[2023-04-10 17:11] LABS: Glucose Point of Care 139 mg/dl (65-105)
[2023-04-10 20:32] LABS: Glucose Point of Care 158 mg/dl (65-105)
[2023-04-10] MEDS: LABETALOL HCL 100 MG TABLET PO (20:34)
[2023-04-11] VITALS (13 sets, daily range): BP systolic 141–157; BP diastolic 63–82; PULSE 73–93; RESP 16–17; TEMP 36.4–37; O2SAT 95–100
[2023-04-11 05:38] LABS: Basophils Absolute Auto 0.1 K/mm3 (0.0-0.1); Basophils Percent Auto 0.4 % (0.2-1.2); Eosinophils Absolute Auto 0.4 K/mm3 (0-0.3); Eosinophils Percent Auto 3.3 % (0-4.4); Hematocrit 27.5 % (37.0-47.0); Hemoglobin 8.6 g/dL (12.0-15.0); Immature Granulocyte Absolute 0.07 K/mm3 (0.00-0.031); Immature Granulocyte Percent A 0.5 % (0-0.5); Lymphocytes Absolute Auto 1.81 K/mm3 (0.9-3.2); Lymphocytes Percent Auto 13.7 % (18.3-44.2); Mean Corpuscular HGB Conc 31.3 g/dl (32-36); Mean Corpuscular Hemoglobin 29.1 pg (26-34); Mean Corpuscular Volume 92.9 fl (80-100); Mean Platelet Volume 9.6 fl (7.4-10.4); Monocytes Absolute Auto 1.5 K/mm3 (0.1-0.6); Neutrophils Absolute Auto 9.4 K/mm3 (1.3-6.7); Neutrophils Percent Auto 71.1 % (45.5-73.1); Nucleated Red Blood Cells Perc 0.2 % (0.0-0.2); Platelet Count Result 291 k/mm3 (150-375); Red Blood Count 2.96 M/mm3 (4.2-5.4); Red Cell Distribution Width 14.9 % (11.5-14.5); White Blood Count 13.2 K/mm3 (4.5-10.0)
[2023-04-11 05:53] LABS: Alanine Aminotransferase 28 U/L (6-35); Alkaline Phosphatase 56 U/L (38-126); Anion Gap 7 mmol/L (8-16); Aspartate Amino Transferase 27 U/L (14-36); Bilirubin,Total 0.7 mg/dL (0.2-1.3); Blood Urea Nitrogen 38 mg/dL (7-17); Calcium 9.3 mg/dL (8.4-10.2); Carbon Dioxide 26 mmol/L (22-30); Chloride 98 mmol/L (98-107); Estimated CRCL calculation 8 ml/min; Estimated Glomerular Filt Rate 6; Glucose 91 mg/dL (65-110); Phosphorus 5.2 mg/dL (2.5-4.5); Potassium 4.3 mmol/L (3.4-5.0); Sodium 131 mmol/L (137-145)
[2023-04-11 08:02] LABS: Glucose Point of Care 105 mg/dl (65-105)
[2023-04-11] MEDS: HEPARIN SODIUM 5,000 UNITS/ML VIAL 5000 UNITS SUB-Q ×2 (09:30→21:37)
[2023-04-11] MEDS: LABETALOL HCL 100 MG TABLET PO ×2 (09:30→21:37)
--- NOTE | 2023-04-11 09:31 | PCPTNOTE ---
Attempted to see patient for PT, however patient was leaving room to go to dialysis.
--- NOTE | 2023-04-11 10:33 | P.PNNP_ITS ---
Progress Note: A&P Assessment and Plan (1) SAEID (acute kidney injury): Code(s): N17.9 - Acute kidney failure, unspecified Status: Acute Assessment and Plan: * presumably due to rhabdomyolysis + prerenal factors leading to ATN * evaluation to date: * renal ultrasound okay * CPK very high on admission and * urine electrolytes non-prerenal * no evidence of infection * making more urine but renal function worsens in-between dialysis treatments * suspect she will need outpatient dialysis until her renal function recovers * consult Surgery for PermCath placement (2) Stage 3b chronic kidney disease: Code(s): N18.32 - Chronic kidney disease, stage 3b Status: Chronic Assessment and Plan: * baseline creatinine runs ~ 1.6 - 1.9mg/dl * based on outpatient evaluation, thought to be due to diabetes, hypertension, and possibly vascular disease (3) Rhabdomyolysis: Code(s): M62.82 - Rhabdomyolysis Status: Acute Assessment and Plan: * presumably due to prolonged down time on floor (~18 hours) following loss of consciousness * follow trend of CPK - improving * fall precautions (4) Loss of consciousness: Code(s): R40.20 - Unspecified coma Status: Acute Assessment and Plan: * etiology? * CT of head normal * no focal deficits * no reported seizure activity * Brain MRI results reviewed * EKG and troponins noted * continue supportive therapy (5) Anemia: Code(s): D64.9 - Anemia, unspecified Status: Acute Assessment and Plan: * presumably related to SAEID, CKD, and acute illness * Epogen with HD * follow trend of H/H (6) Hypertension: Code(s): I10 - Essential (primary) hypertension Status: Chronic Assessment and Plan: * reasonable control at this time * continue current medications * follow trend of hemodynamics Will continue to follow. Subjective Date/time seen: 04/11/23 10:35 Interval history: Follow-up for acute kidney injury/acute renal failure on chronic kidney disease and rhabdomyolysis. Continue to make reasonable urine output but BUN and creatinine continue to rise quite a bit in-between dialysis treatments; dialysis being attempted now but HD catheter not functioning very well so will try alteplase; no apparent distress noted; no issues/events overnight to report. Exam Narrative: General: WD/WN AA female in NAD Heart: normal S1 and S2; no rub Lungs: clear bilaterally Abdomen: soft, nontender, nondistended, positive bowel sounds Extremities: no cyanosis or clubbing; trace edema Skin: no rash Objective Data Vital Signs Vital Signs: Vital Signs Temp Pulse Resp BP Pulse Ox O2 Del Method FiO2 04/11/23 09:30 93 04/11/23 08:50 98.1 F 91 17 141/82 H 100 04/11/23 04:00 88 04/11/23 03:49 98.0 F 91 17 157/65 H 97 04/11/23 00:00 80 04/10/23 23:34 98.4 F 87 18 152/64 H 100 04/10/23 20:00 97.8 F 85 17 144/74 H 99 04/10/23 20:00 97.9 F 79 18 114/64 98 04/10/23 20:00 81 04/10/23 19:42 75 17 100 Room Air 21 04/10/23 17:13 98.0 F 75 17 137/72 100 04/10/23 16:00 69 04/10/23 12:36 97.7 F 64 18 99/50 L 100 04/10/23 12:00 65
--- NOTE | 2023-04-11 10:33 | PM.PNNEP ---
Progress Note: A&P Assessment and Plan (1) SAEID (acute kidney injury): Code(s): N17.9 - Acute kidney failure, unspecified Status: Acute Assessment and Plan: presumably due to rhabdomyolysis + prerenal factors leading to ATN evaluation to date: renal ultrasound okay CPK very high on admission and urine electrolytes non-prerenal no evidence of infection making more urine but renal function worsens in-between dialysis treatments suspect she will need outpatient dialysis until her renal function recovers consult Surgery for PermCath placement (2) Stage 3b chronic kidney disease: Code(s): N18.32 - Chronic kidney disease, stage 3b Status: Chronic Assessment and Plan: baseline creatinine runs ~ 1.6 - 1.9mg/dl based on outpatient evaluation, thought to be due to diabetes, hypertension, and possibly vascular disease (3) Rhabdomyolysis: Code(s): M62.82 - Rhabdomyolysis Status: Acute Assessment and Plan: presumably due to prolonged down time on floor (~18 hours) following loss of consciousness follow trend of CPK - improving fall precautions (4) Loss of consciousness: Code(s): R40.20 - Unspecified coma Status: Acute Assessment and Plan: etiology? CT of head normal no focal deficits no reported seizure activity Brain MRI results reviewed EKG and troponins noted continue supportive therapy (5) Anemia: Code(s): D64.9 - Anemia, unspecified Status: Acute Assessment and Plan: presumably related to SAEID, CKD, and acute illness Epogen with HD follow trend of H/H (6) Hypertension: Code(s): I10 - Essential (primary) hypertension Status: Chronic Assessment and Plan: reasonable control at this time continue current medications follow trend of hemodynamics Will continue to follow. Subjective Date/time seen: 04/11/23 10:35 Interval history: Follow-up for acute kidney injury/acute renal failure on chronic kidney disease and rhabdomyolysis. Continue to make reasonable urine output but BUN and creatinine continue to rise quite a bit in-between dialysis treatments; dialysis being attempted now but HD catheter not functioning very well so will try alteplase; no apparent distress noted; no issues/events overnight to report. Exam Narrative: General: WD/WN AA female in NAD Heart: normal S1 and S2; no rub Lungs: clear bilaterally Abdomen: soft, nontender, nondistended, positive bowel sounds Extremities: no cyanosis or clubbing; trace edema Skin: no rash Objective Data Vital Signs Vital Signs: Vital Signs Temp Pulse Resp BP Pulse Ox O2 Del Method FiO2 04/11/23 09:30 93 04/11/23 08:50 98.1 F 91 17 141/82 H 100 04/11/23 04:00 88 04/11/23 03:49 98.0 F 91 17 157/65 H 97 04/11/23 00:00 80 04/10/23 23:34 98.4 F 87 18 152/64 H 100 04/10/23 20:00 97.8 F 85 17 144/74 H 99 04/10/23 20:00 97.9 F 79 18 114/64 98 04/10/23 20:00 81 04/10/23 19:42 75 17 100 Room Air 21 04/10/23 17:13 98.0 F 75 17 137/72 100 04/10/23 16:00 69 04/10/23 12:36 97.7 F 64 18 99/50 L 100 04/10/23 12:00 65 Intake/Output Intake/Output: Intake & Output 04/08/23 04/09/23 04/10/23 04/11/23 23:59 23:59 23:59 23:59 Intake Total 2830 770 875 120 Output Total 062 777 7583 550 Balance 2130 327 -628 -867 Meds/Results Medications: Active Medications Generic Name Dose Route Start Last Admin Trade Name Freq PRN Reason Stop Dose Admin Acetaminophen 650 mg 03/30/23 22:24 04/06/23 21:10 Acetaminophen 325 Mg Tablet PO 650 mg Q4H PRN Administration Mild Pain (1-3) or Fever Dextrose 12.5 gm 03/30/23 22:24 Dextrose 50% 25 Gm/50 Ml Syringe IV PUSH PRN PRN Hypoglycemia Protocol Epoetin Isac-epbx 10,000 units 04/11/23 19:00 Epoetin Isac-Epbx 10,0
[2023-04-11] MEDS: ALTEPLASE 2 MG VIAL (CATHFLO) IV PUSH (11:13)
--- NOTE | 2023-04-11 11:40 | PC.NURSE ---
Per Dr. Silverman, keep patient NPO starting now for possible tunneled catheter procedure.
[2023-04-11] MEDS: VERAPAMIL HCL ER 240 MG TABLET.ER PO (12:19)
[2023-04-11 12:25] LABS: Glucose Point of Care 123 mg/dl (65-105)
--- NOTE | 2023-04-11 14:56 | PM.PNGS ---
Progress Note: A&P Assessment and Plan (1) Stage 3b chronic kidney disease: Code(s): N18.32 - Chronic kidney disease, stage 3b Status: Chronic Assessment and Plan: Patient in need of more permanent dialysis access. She had already eaten breakfast at 9:30 this AM, and anesthesia requires 6-8 hours of no solid food before IV sedation procedure. Will have to schedule this for Tuesday. Discussed with patient. Will make NPO after midnight tomorrow night and plan for Tunneled dialysis catheter placement and removal of Henok dialysis catheter on Tuesday. (2) Hypertension: Code(s): I10 - Essential (primary) hypertension Status: Chronic Subjective Subjective Date/Time Seen: 04/11/23 14:56 Interval history: Patient in need of tunneled dialysis catheter. Unfortunately patient had already eaten breakfast this morning. Exam Chest: Other: right sublcavian Henok dialysis catheter in place. Objective Data Vital Signs Vital Signs: Vital Signs - 24 hr 04/10/23 16:00 04/10/23 17:13 04/10/23 19:42 Temperature 36.7 C Pulse Rate 69 75 75 Respiratory Rate 17 17 Blood Pressure 137/72 Pulse Oximetry 100 100 Oxygen Delivery Room Air Fraction of Inspired Oxygen 21 04/10/23 20:00 04/10/23 20:00 04/10/23 20:00 Temperature 36.6 C 36.6 C Pulse Rate 81 79 85 Respiratory Rate 18 17 Blood Pressure 114/64 144/74 H Pulse Oximetry 98 99 Oxygen Delivery Fraction of Inspired Oxygen 04/10/23 23:34 04/11/23 00:00 04/11/23 03:49 Temperature 36.9 C 36.7 C Pulse Rate 87 80 91 Respiratory Rate 18 17 Blood Pressure 152/64 H 157/65 H Pulse Oximetry 100 97 Oxygen Delivery Fraction of Inspired Oxygen 04/11/23 04:00 04/11/23 08:50 04/11/23 09:30 Temperature 36.7 C Pulse Rate 88 91 93 Respiratory Rate 17 Blood Pressure 141/82 H Pulse Oximetry 100 Oxygen Delivery Fraction of Inspired Oxygen 04/11/23 12:30 Temperature 36.4 C L Pulse Rate 83 Respiratory Rate 16 Blood Pressure 149/79 H Pulse Oximetry 98 Oxygen Delivery Fraction of Inspired Oxygen Intake/Output Intake/Output: Intake & Output 04/08/23 04/09/23 04/10/2304/11/23 23:59 23:59 23:59 23:59 Intake Total 2830 770 875 360 Output Total 456 113 0856 550 Balance 2139 541 -902 -284 Meds/Results Medications: Active Medications Generic Name Dose Route Start Last Admin Trade Name Freq PRN Reason Stop Dose Admin Acetaminophen 650 mg 03/30/23 22:24 04/06/23 21:10 Acetaminophen 325 Mg Tablet PO 650 mg Q4H PRN Administration Mild Pain (1-3) or Fever Alteplase, Recombinant 2 mg 04/11/23 10:40 04/11/23 11:13 Alteplase 2 Mg Vial (Cathflo) IV PUSH 2 mg ONCE PRN Administration Line Occlusion Alteplase, Recombinant 2 mg 04/11/23 10:45 Alteplase 2 Mg Vial (Cathflo) IV PUSH ONCE PRN Line Occlusion Dextrose 12.5 gm 03/30/23 22:24 Dextrose 50% 25 Gm/50 Ml Syringe IV PUSH PRN PRN Hypoglycemia Protocol Epoetin Isac-epbx 10,000 units 04/11/23 19:00 Epoetin Isac-Epbx 10,000 Units/Ml Vial IV PUSH 04/11/23 19:01 ONCE ONE Fentanyl Citrate 25 mcg 04/03/23 14:35 Fentanyl Citrate Inj (*Crx) 100 Mcg/2 Ml Vial IV PUSH Q2M PRN Pain Fentanyl Citrate 25 mcg 04/03/23 14:47 Fentanyl Citrate Inj (*Crx) 100 Mcg/2 Ml Vial IV PUSH Q2M PRN Pain Glucagon 1 mg 03/30/23 22:24 Glucagon For Inj 1 Mg Vial IM PRN PRN Hypoglycemia Protocol Glucose 15 gm 03/30/23 22:24 04/05/23 07:50 Glucose Oral Gel 15 Gm Of Glucse In 37.5 Gm Tube PO 15 gm PRN PRN Administration Hypoglycemia Protocol Heparin Sodium (Porcine) 5,000 units 03/30/23 22:40 04/11/23 09:30 Heparin Sodium 5,000 Units/Ml Vial SUB-Q 5,000 units Q12HR RAVI Administration Hydralazine HCl 25 mg 04/10/23 17:00 04/11/23 11:41 Hydralazine Hcl 25 Mg Tablet PO Not Given
--- NOTE | 2023-04-11 15:09 | WPDPN ---
Progress Note: A&P Assessment and Plan (1) Rhabdomyolysis: Code(s): M62.82 - Rhabdomyolysis Status: Acute Assessment and Plan: pt requiring emergent dialysis for severe SAEID patient now on hemodialysis improving, hold HD over weekend, reassess April 15 Urine output is increasing 04/11/2023 interval history:?patient acute severe SAEID requiring HD and seen by civil celebrant her uirne out put is improving, however her Scr is still elevated will need HD, patient today patient ellen catherter is malfunctiong will need removal and replacement, seen by general surgeon patient ate today so unable to do it today and tomorrow is holiday, will have surgery on Tuesday, currently laying in the bed, stats feeling much better, and she is urinating, will continue PT/OT and monitor. (2) SAEID (acute kidney injury): Code(s): N17.9 - Acute kidney failure, unspecified Status: Acute Assessment and Plan: patient with baseline creatinine of 1.5 on December 2021 has evidence of rhabdomyolysis with elevated CPK levels watch kidney function daily appreciate nephrology consultation (3) Loss of consciousness: Code(s): R40.20 - Unspecified coma Status: Acute Assessment and Plan: resolved CT head negative for any acute lesions neuro nonfocal (4) Shoulder pain, left: Code(s): M25.512 - Pain in left shoulder Status: Acute Assessment and Plan: MRI left shoulder showed mild supraspinatus tendinopathy with swelling concerning for myopathy versus bursitis, likely secondary to rhabdomyolysis, also noted AC osteoarthritis Continue analgesics prn, PT/OT Plan Abnormal CT spine - multiple sub 6 mm pulmonary nodules- will need dedicated ct chest on a nonemergent basis Elevated leuk - likely stress reaction, has normalized since will order UA to rule out UTI, urine cx neg DVT prophylaxis with SCDs GI prophylaxis not indicated Code status full code Subjective Date/time seen: 04/11/23 15:09 Interval history: pt requiring emergent dialysis for severe SAEID patient now on hemodialysis improving, hold HD over weekend, reassess April 15 Urine output is increasing 04/11/2023 interval history:?patient acute severe SAEID requiring HD and seen by civil celebrant her uirne out put is improving, however her Scr is still elevated will need HD, patient today patient ellen catherter is malfunctiong will need removal and replacement, seen by general surgeon patient ate today so unable to do it today and tomorrow is , will have surgery on Tuesday, currently laying in the bed, stats feeling much better, and she is urinating, will continue PT/OT and monitor. Review of Systems Review of Systems: 12 point review of systems was assessed and was negative except as noted in the HPI Objective Data Vital Signs Vital Signs: Vital Signs - 24 hr 04/10/23 16:00 04/10/23 17:13 04/10/23 19:42 Temperature 98.0 F Pulse Rate 69 75 75 Respiratory Rate 17 17 Blood Pressure 137/72 Pulse Oximetry 100 100 Oxygen Delivery Room Air Fraction of Inspired Oxygen 21 04/10/23 20:00 04/10/23 20:00 04/10/23 20:00 Temperature 97.9 F 97.8 F Pulse Rate 81 79 85 Respiratory Rate 18 17 Blood Pressure 114/64 144/74 H Pulse Oximetry 98 99 Oxygen Delivery Fraction of Inspired Oxygen 04/10/23 23:34 04/11/23 00:00 04/11/23 03:49 Temperature 98.4 F 98.0 F Pulse Rate 87 80 91 Respiratory Rate 18 17 Blood Pressure 152/64 H 157/65 H Pulse Oximetry 100 97 Oxygen Delivery Fraction of Inspired Oxygen 04/11/23 04:00 04/11/23 08:50 04/11/23 09:30 Temperature 98.1 F Pulse Rate 88 91 93 Respiratory Rate 17 Blood Pressure 141/82 H Pulse Oximetry 100 Oxygen Delivery Fraction of Inspired Oxygen 04/11/23 12:30 Temperature 97.5 F L Pulse Rate 83 Respiratory Rate 16 Blood Pressure 149/79 H Pulse Oximetry 98 Oxygen Delivery
[2023-04-11 17:30] LABS: Glucose Point of Care 182 mg/dl (65-105)
[2023-04-11] MEDS: hydrALAZINE HCL 25 MG TABLET PO (18:07)
[2023-04-11 20:05] LABS: Glucose Point of Care 156 mg/dl (65-105)
[2023-04-12] VITALS (13 sets, daily range): BP systolic 141–161; BP diastolic 64–75; PULSE 73–93; RESP 16–18; TEMP 36.6–37; O2SAT 95–98
[2023-04-12 06:07] LABS: Basophils Percent Auto 0.3 % (0.2-1.2); Eosinophils Absolute Auto 0.4 K/mm3 (0-0.3); Eosinophils Percent Auto 3.2 % (0-4.4); Hematocrit 26.9 % (37.0-47.0); Hemoglobin 8.3 g/dL (12.0-15.0); Immature Granulocyte Absolute 0.05 K/mm3 (0.00-0.031); Immature Granulocyte Percent A 0.4 % (0-0.5); Lymphocytes Absolute Auto 1.53 K/mm3 (0.9-3.2); Lymphocytes Percent Auto 12.2 % (18.3-44.2); Mean Corpuscular HGB Conc 30.9 g/dl (32-36); Mean Corpuscular Hemoglobin 28.7 pg (26-34); Mean Corpuscular Volume 93.1 fl (80-100); Mean Platelet Volume 9.8 fl (7.4-10.4); Monocytes Absolute Auto 1.4 K/mm3 (0.1-0.6); Monocytes Percent Auto 10.8 % (2.6-8.5); Neutrophils Absolute Auto 9.2 K/mm3 (1.3-6.7); Neutrophils Percent Auto 73.1 % (45.5-73.1); Platelet Count Result 313 k/mm3 (150-375); Red Blood Count 2.89 M/mm3 (4.2-5.4); White Blood Count 12.6 K/mm3 (4.5-10.0)
[2023-04-12 06:21] LABS: Alanine Aminotransferase 25 U/L (6-35); Alkaline Phosphatase 75 U/L (38-126); Anion Gap 7 mmol/L (8-16); Aspartate Amino Transferase 23 U/L (14-36); Bilirubin,Total 0.6 mg/dL (0.2-1.3); Blood Urea Nitrogen 41 mg/dL (7-17); Calcium 9.4 mg/dL (8.4-10.2); Carbon Dioxide 24 mmol/L (22-30); Chloride 101 mmol/L (98-107); Estimated CRCL calculation 7 ml/min; Estimated Glomerular Filt Rate 5; Glucose 95 mg/dL (65-110); Phosphorus 4.7 mg/dL (2.5-4.5); Potassium 4.1 mmol/L (3.4-5.0); Sodium 132 mmol/L (137-145)
[2023-04-12 08:37] LABS: Glucose Point of Care 109 mg/dl (65-105)
[2023-04-12] MEDS: LABETALOL HCL 100 MG TABLET PO ×2 (09:05→20:40)
[2023-04-12] MEDS: hydrALAZINE HCL 25 MG TABLET PO ×2 (09:05→17:01)
[2023-04-12] MEDS: VERAPAMIL HCL ER 240 MG TABLET.ER PO (09:05)
[2023-04-12] MEDS: HEPARIN SODIUM 5,000 UNITS/ML VIAL 5000 UNITS SUB-Q ×2 (09:05→20:41)
--- NOTE | 2023-04-12 11:08 | P.PNNP_ITS ---
Progress Note: A&P Assessment and Plan (1) SAEID (acute kidney injury): Code(s): N17.9 - Acute kidney failure, unspecified Status: Acute Assessment and Plan: * presumably due to rhabdomyolysis + prerenal factors leading to ATN * evaluation to date: * renal ultrasound okay * CPK very high on admission and * urine electrolytes non-prerenal * no evidence of infection * making more urine but renal function worsens in-between dialysis treatments * suspect she will need outpatient dialysis until her renal function recovers * Surgery folowing for PermCath placement -- tentatively scheduled for tomorrow (2) Stage 3b chronic kidney disease: Code(s): N18.32 - Chronic kidney disease, stage 3b Status: Chronic Assessment and Plan: * baseline creatinine runs ~ 1.6 - 1.9mg/dl * based on outpatient evaluation, thought to be due to diabetes, hypertension, and possibly vascular disease (3) Rhabdomyolysis: Code(s): M62.82 - Rhabdomyolysis Status: Acute Assessment and Plan: * presumably due to prolonged down time on floor (~18 hours) following loss of consciousness * follow trend of CPK - improving * fall precautions (4) Loss of consciousness: Code(s): R40.20 - Unspecified coma Status: Acute Assessment and Plan: * etiology? * CT of head normal * no focal deficits * no reported seizure activity * Brain MRI results reviewed * EKG and troponins noted * continue supportive therapy (5) Anemia: Code(s): D64.9 - Anemia, unspecified Status: Acute Assessment and Plan: * presumably related to SAEID, CKD, and acute illness * Epogen with HD * follow trend of H/H (6) Hypertension: Code(s): I10 - Essential (primary) hypertension Status: Chronic Assessment and Plan: * reasonable control at this time * continue current medications * follow trend of hemodynamics Will continue to follow. Subjective Date/time seen: 04/12/23 11:08 Interval history: Follow-up for acute kidney injury/acute renal failure on chronic kidney disease and rhabdomyolysis. Unable to received dialysis treatment yesterday due to HD catheter dysfunction despite mulitple interventions by HD nurses including use of cathflo/activase; however, no critical electrolytes yesterday or today and contiues to make reasonable urine output at this time. Exam Narrative: General: WD/WN AA female in NAD Heart: normal S1 and S2; no rub Lungs: clear to ausculation Abdomen: soft, nontender, nondistended, positive bowel sounds Extremities: no cyanosis or clubbing; trace edema Skin: warm and dry Objective Data Vital Signs Vital Signs: Vital Signs Temp Pulse Resp BP Pulse Ox O2 Del Method 04/12/23 09:00 Room Air 04/12/23 09:00 92 04/12/23 09:05 92 04/12/23 09:01 92 161/75 H 97 04/12/23 04:00 88 04/12/23 00:00 85 04/11/23 20:00 81 04/12/23 04:00 98.6 F 93 18 155/70 H 98 04/11/23 23:33 97.9 F 87 17 156/63 H 95 04/11/23 21:37 82 04/11/23 19:49 98.6 F 82 16 151/67 H 97 04/11/23 16:00 73 04/11/23 12:00 82 04/11/23 17:07 98.1 F 76 17 148/66 H 99 04/11/23 12:30 97.5 F L 83 16 149/79 H 98
--- NOTE | 2023-04-12 11:08 | PM.PNNEP ---
Progress Note: A&P Assessment and Plan (1) SAEID (acute kidney injury): Code(s): N17.9 - Acute kidney failure, unspecified Status: Acute Assessment and Plan: presumably due to rhabdomyolysis + prerenal factors leading to ATN evaluation to date: renal ultrasound okay CPK very high on admission and urine electrolytes non-prerenal no evidence of infection making more urine but renal function worsens in-between dialysis treatments suspect she will need outpatient dialysis until her renal function recovers Surgery folowing for PermCath placement -- tentatively scheduled for tomorrow (2) Stage 3b chronic kidney disease: Code(s): N18.32 - Chronic kidney disease, stage 3b Status: Chronic Assessment and Plan: baseline creatinine runs ~ 1.6 - 1.9mg/dl based on outpatient evaluation, thought to be due to diabetes, hypertension, and possibly vascular disease (3) Rhabdomyolysis: Code(s): M62.82 - Rhabdomyolysis Status: Acute Assessment and Plan: presumably due to prolonged down time on floor (~18 hours) following loss of consciousness follow trend of CPK - improving fall precautions (4) Loss of consciousness: Code(s): R40.20 - Unspecified coma Status: Acute Assessment and Plan: etiology? CT of head normal no focal deficits no reported seizure activity Brain MRI results reviewed EKG and troponins noted continue supportive therapy (5) Anemia: Code(s): D64.9 - Anemia, unspecified Status: Acute Assessment and Plan: presumably related to SAEID, CKD, and acute illness Epogen with HD follow trend of H/H (6) Hypertension: Code(s): I10 - Essential (primary) hypertension Status: Chronic Assessment and Plan: reasonable control at this time continue current medications follow trend of hemodynamics Will continue to follow. Subjective Date/time seen: 04/12/23 11:08 Interval history: Follow-up for acute kidney injury/acute renal failure on chronic kidney disease and rhabdomyolysis. Unable to received dialysis treatment yesterday due to HD catheter dysfunction despite mulitple interventions by HD nurses including use of cathflo/activase; however, no critical electrolytes yesterday or today and contiues to make reasonable urine output at this time. Exam Narrative: General: WD/WN AA female in NAD Heart: normal S1 and S2; no rub Lungs: clear to ausculation Abdomen: soft, nontender, nondistended, positive bowel sounds Extremities: no cyanosis or clubbing; trace edema Skin: warm and dry Objective Data Vital Signs Vital Signs: Vital Signs Temp Pulse Resp BP Pulse Ox O2 Del Method 04/12/23 09:00 Room Air 04/12/23 09:00 92 04/12/23 09:05 92 04/12/23 09:01 92 161/75 H 97 04/12/23 04:00 88 04/12/23 00:00 85 04/11/23 20:00 81 04/12/23 04:00 98.6 F 93 18 155/70 H 98 04/11/23 23:33 97.9 F 87 17 156/63 H 95 04/11/23 21:37 82 04/11/23 19:49 98.6 F 82 16 151/67 H 97 04/11/23 16:00 73 04/11/23 12:00 82 04/11/23 17:07 98.1 F 76 17 148/66 H 99 04/11/23 12:30 97.5 F L 83 16 149/79 H 98 Intake/Output Intake/Output: Intake & Output 04/09/23 04/10/23 04/11/23 04/12/23 23:59 23:59 23:59 23:59 Intake Total 198 824 6681 270 Output Total 425 1150 1350 800 Balance 345 -275 350 -530 Meds/Results Medications: Active Medications Generic Name Dose Route Start Last Admin Trade Name Freq PRN Reason Stop Dose Admin Acetaminophen 650 mg 03/30/23 22:24 04/06/23 21:10 Acetaminophen 325 Mg Tablet PO 650 mg Q4H PRN Administration Mild Pain (1-3) or Fever Alteplase, Recombinant 2 mg 04/11/23 10:40 04/11/23 11:13 Alteplase 2 Mg Vial (Cathflo) IV PUSH 2 mg ONCE PRN Administration Line Occlusion Alteplase, Recombinant 2 mg 04/11/23 10:45
[2023-04-12 12:32] LABS: Glucose Point of Care 124 mg/dl (65-105)
--- NOTE | 2023-04-12 12:36 | WPDPN ---
Progress Note: A&P Assessment and Plan (1) Rhabdomyolysis: Code(s): M62.82 - Rhabdomyolysis Status: Acute Assessment and Plan: pt requiring emergent dialysis for severe SAEID patient now on hemodialysis improving, hold HD over weekend, reassess April 15 Urine output is increasing 04/12/2023 interval history:?patient acute severe SAEID requiring HD and seen by nurse manager her uirne out put is improving, however her Scr is still elevated will need HD, on 04/11 patient ellen catherter was malfunctioning will need removal and replacement, seen by general surgeon so unable to do it on 04/11 as patient had eaten, and tomorrow is holiday, will have surgery on Tuesday, currently laying in the bed, stats feeling much better, and she is urinating, her Scr is elevated but her potassium in close to normal, will continue PT/OT and monitor. (2) SAEID (acute kidney injury): Code(s): N17.9 - Acute kidney failure, unspecified Status: Acute Assessment and Plan: patient with baseline creatinine of 1.5 on December 2021 has evidence of rhabdomyolysis with elevated CPK levels watch kidney function daily appreciate nephrology consultation (3) Loss of consciousness: Code(s): R40.20 - Unspecified coma Status: Acute Assessment and Plan: resolved CT head negative for any acute lesions neuro nonfocal (4) Shoulder pain, left: Code(s): M25.512 - Pain in left shoulder Status: Acute Assessment and Plan: MRI left shoulder showed mild supraspinatus tendinopathy with swelling concerning for myopathy versus bursitis, likely secondary to rhabdomyolysis, also noted AC osteoarthritis Continue analgesics prn, PT/OT Plan Abnormal CT spine - multiple sub 6 mm pulmonary nodules- will need dedicated ct chest on a nonemergent basis Elevated leuk - likely stress reaction, has normalized since will order UA to rule out UTI, urine cx neg DVT prophylaxis with SCDs GI prophylaxis not indicated Code status full code Subjective Date/time seen: 04/12/23 12:36 Interval history: pt requiring emergent dialysis for severe SAEID patient now on hemodialysis improving, hold HD over weekend, reassess April 15 Urine output is increasing 04/12/2023 interval history:?patient acute severe SAEID requiring HD and seen by nurse manager her uirne out put is improving, however her Scr is still elevated will need HD, on 04/11 patient ellen catherter was malfunctioning will need removal and replacement, seen by general surgeon so unable to do it on 04/11 as patient had eaten, and tomorrow is holiday, will have surgery on Tuesday, currently laying in the bed, stats feeling much better, and she is urinating, her Scr is elevated but her potassium in close to normal, will continue PT/OT and monitor. Review of Systems Review of Systems: 12 point review of systems was assessed and was negative except as noted in the HPI All systems reviewed & are unremarkable except as noted in HPI and below Objective Data Vital Signs Vital Signs: Vital Signs - 24 hr 04/11/23 17:07 04/11/23 16:00 04/11/23 19:49 Temperature 98.1 F 98.6 F Pulse Rate 76 73 82 Respiratory Rate 17 16 Blood Pressure 148/66 H 151/67 H Pulse Oximetry 99 97 Oxygen Delivery 04/11/23 21:37 04/11/23 23:33 04/12/23 04:00 Temperature 97.9 F 98.6 F Pulse Rate 82 87 93 Respiratory Rate 17 18 Blood Pressure 156/63 H 155/70 H Pulse Oximetry 95 98 Oxygen Delivery 04/11/23 20:00 04/12/23 00:00 04/12/23 04:00 Temperature Pulse Rate 81 85 88 Respiratory Rate Blood Pressure Pulse Oximetry Oxygen Delivery 04/12/23 09:01 04/12/23 09:05 04/12/23 09:00 Temperature Pulse Rate 92 92 92 Respiratory Rate Blood Pressure 161/75 H Pulse Oximetry 97 Oxygen Delivery 04/12/23 09:00 Temperature Pulse Rate Respiratory Rate Blood Pressure Pulse Oximetry Oxygen Delivery
[2023-04-12 16:55] LABS: Glucose Point of Care 122 mg/dl (65-105)
[2023-04-12 21:29] LABS: Glucose Point of Care 158 mg/dl (65-105)
[2023-04-13] VITALS (33 sets, daily range): BP systolic 104–190; BP diastolic 52–95; PULSE 69–100; RESP 14–20; TEMP 36–36.7; O2SAT 91–100
[2023-04-13 05:02] LABS: Basophils Absolute Auto 0.1 K/mm3 (0.0-0.1); Basophils Percent Auto 0.4 % (0.2-1.2); Eosinophils Absolute Auto 0.3 K/mm3 (0-0.3); Eosinophils Percent Auto 2.4 % (0-4.4); Hemoglobin 8.6 g/dL (12.0-15.0); Immature Granulocyte Absolute 0.04 K/mm3 (0.00-0.031); Immature Granulocyte Percent A 0.3 % (0-0.5); Lymphocytes Absolute Auto 1.29 K/mm3 (0.9-3.2); Lymphocytes Percent Auto 10.2 % (18.3-44.2); Mean Corpuscular HGB Conc 31.9 g/dl (32-36); Mean Corpuscular Hemoglobin 29.5 pg (26-34); Mean Corpuscular Volume 92.5 fl (80-100); Mean Platelet Volume 9.3 fl (7.4-10.4); Monocytes Absolute Auto 1.4 K/mm3 (0.1-0.6); Monocytes Percent Auto 10.9 % (2.6-8.5); Neutrophils Absolute Auto 9.6 K/mm3 (1.3-6.7); Neutrophils Percent Auto 75.8 % (45.5-73.1); Platelet Count Result 325 k/mm3 (150-375); Red Blood Count 2.92 M/mm3 (4.2-5.4); White Blood Count 12.7 K/mm3 (4.5-10.0)
[2023-04-13 05:15] LABS: Alanine Aminotransferase 22 U/L (6-35); Albumin Level 3.1 g/dL (3.5-5.1); Alkaline Phosphatase 73 U/L (38-126); Anion Gap 8 mmol/L (8-16); Aspartate Amino Transferase 22 U/L (14-36); Bilirubin,Total 0.6 mg/dL (0.2-1.3); Blood Urea Nitrogen 47 mg/dL (7-17); Calcium 9.6 mg/dL (8.4-10.2); Carbon Dioxide 24 mmol/L (22-30); Chloride 101 mmol/L (98-107); Estimated CRCL calculation 7 ml/min; Estimated Glomerular Filt Rate 5; Glucose 112 mg/dL (65-110); Potassium 4.4 mmol/L (3.4-5.0); Sodium 133 mmol/L (137-145)
--- NOTE | 2023-04-13 07:59 | PCOTNOTE ---
The patient treatment was not able to be completed on this morning due to patient reported not being able to sleep and has a procedure around 3 (per patient report). Will plan to continue treatment per plan of care.
[2023-04-13 08:33] LABS: Glucose Point of Care 104 mg/dl (65-105)
[2023-04-13 09:05] LABS: Anti Glomerular Basement Memb <1.0 AI (<1.0)
[2023-04-13] MEDS: LABETALOL HCL 100 MG TABLET PO ×2 (10:37→23:29)
[2023-04-13] MEDS: VERAPAMIL HCL ER 240 MG TABLET.ER PO (10:38)
--- NOTE | 2023-04-13 10:50 | PCNWS ---
Weekly nutritional screen. Patient is tolerating current diet with adequate intake. No weight loss reported. NPO today for Henok catheter replacement. No nutritional needs at this time.
--- NOTE | 2023-04-13 11:17 | WPDPN ---
Progress Note: A&P Assessment and Plan (1) Rhabdomyolysis: Code(s): M62.82 - Rhabdomyolysis Status: Acute Assessment and Plan: pt requiring emergent dialysis for severe SAEID patient now on hemodialysis improving, hold HD over weekend, reassess April 15 Urine output is increasing 04/13/2023 interval history:?patient acute severe SAEID requiring HD and seen by seater grinder her uirne out put is improving, however her Scr is still elevated will need HD, on 04/11? patient ellen catherter was malfunctioning will need removal and replacement, seen by general surgeon was unable to do it on 04/11 as patient had eaten, and yesterday was holiday, Patient is scheduled have replacement of her dialysis catheter today and after that she will have HD today, currently she is sitting in the chair, ? stats feeling much better, and she is urinating, her Scr is elevated but her potassium in close to normal, will continue PT/OT and monitor. (2) SAEID (acute kidney injury): Code(s): N17.9 - Acute kidney failure, unspecified Status: Acute Assessment and Plan: patient with baseline creatinine of 1.5 on December 2021 has evidence of rhabdomyolysis with elevated CPK levels watch kidney function daily appreciate nephrology consultation (3) Loss of consciousness: Code(s): R40.20 - Unspecified coma Status: Acute Assessment and Plan: resolved CT head negative for any acute lesions neuro nonfocal (4) Shoulder pain, left: Code(s): M25.512 - Pain in left shoulder Status: Acute Assessment and Plan: MRI left shoulder showed mild supraspinatus tendinopathy with swelling concerning for myopathy versus bursitis, likely secondary to rhabdomyolysis, also noted AC osteoarthritis Continue analgesics prn, PT/OT Plan Abnormal CT spine - multiple sub 6 mm pulmonary nodules- will need dedicated ct chest on a nonemergent basis Elevated leuk - likely stress reaction, has normalized since will order UA to rule out UTI, urine cx neg DVT prophylaxis with SCDs GI prophylaxis not indicated Code status full code Subjective Date/time seen: 04/13/23 11:17 Interval history: Interval history: pt requiring emergent dialysis for severe SAEID patient now on hemodialysis improving, hold HD over weekend, reassess April 15 Urine output is increasing 04/13/2023 interval history:?patient acute severe SAEID requiring HD and seen by seater grinder her uirne out put is improving, however her Scr is still elevated will need HD, on 04/11? patient ellen brock was malfunctioning will need removal and replacement, seen by general surgeon was unable to do it on 04/11 as patient had eaten, and yesterday was holiday, Patient is scheduled have replacement of her dialysis catheter today and after that she will have HD today, currently she is sitting in the chair, ? stats feeling much better, and she is urinating, her Scr is elevated but her potassium in close to normal, will continue PT/OT and monitor. Review of Systems Review of Systems: 12 point review of systems was assessed and was negative except as noted in the HPI Exam Narrative: Morbidly obese Patient is comfortable, NAD HEENT: eyes are clear and none icteric LUNGS: Normal respiratory effort ABD: Distended Lower extremities: no edema SKIN: nonjaundiced Neuro: grossly intact. Objective Data Vital Signs Vital Signs: Vital Signs - 24 hr 04/12/23 12:00 04/12/23 16:00 04/12/23 17:01 Temperature Pulse Rate 73 78 83 Respiratory Rate Blood Pressure 141/67 H Pulse Oximetry Oxygen Delivery Fraction of Inspired Oxygen 04/12/23 16:05 04/12/23 20:06 04/12/23 20:40 Temperature 97.8 F 98.4 F Pulse Rate 83 89 90 Respiratory Rate 18 16 Blood Pressure 141/68 H 141/64 H Pulse Oximetry 98 95 Oxygen Delivery Fraction of Inspired Oxygen 04/12/23 20:00 04/12/23 22:59 04/13/23 00:00 Temper
[2023-04-13 11:47] LABS: Glucose Point of Care 107 mg/dl (65-105)
--- NOTE | 2023-04-13 12:47 | WPDHPUPDATE1 ---
History and Physical Update Update Date/Time: 04/13/23 12:47 History and Physical has been reviewed, including an updated exam of the patient. There are NO changes in the patient's condition. Risks, benefits, and alternatives have been discussed and questions answered. Patient agrees to proceed with procedure.
--- NOTE | 2023-04-13 13:23 | WPDANESEPPF ---
Anes - Initial Pre Proc Eval Procedure: Operation Date: 04/03/23 15:00 Proposed Procedures p Insertion Duraflow Permacath Dialysis - Siddharth Man MD Operation Date: 04/13/23 15:00 Proposed Procedures p Insertion Duraflow Permacath Dialysis Tunneled Dialysis Catheter - John Silverman DO Date/Time: 04/13/23 13:23 Surgeon: Eliel Garcia MD Pre Op Diagnosis: Weakness,UTI,Acute Hypercapnia Patient Data Age: 62 Gender: F Height: 1.65 m Weight: 121.9 kg Last Vital Signs Temp 36.3 C L 04/13/23 09:48 Pulse 78 04/13/23 12:00 Resp 18 04/13/23 09:48 BP 158/79 H 04/13/23 10:32 Pulse Ox 100 04/13/23 09:48 O2 Del Method Room Air 04/13/23 10:30 FiO2 21 04/12/23 22:59 Allergies Allergy/AdvReac Type Severity Reaction Status Date / Time niacin AdvReac Unknown flushing Verified 03/30/23 18:33 Home Medications Medication Instructions Recorded Confirmed Type labetalol 200 mg tablet 200 mg PO Q12H 08/26/22 03/30/23 History bupropion HCl 300 mg 24 hr tablet, 300 mg PO DAILY #90 tabs 12/06/22 03/30/23 Rx extended release verapamil 240 mg 24 hr 240 mg PO DAILY #90 caps 12/06/22 03/30/23 Rx capsule,extended release glimepiride 2 mg tablet 2 mg PO BID #180 tabs 01/27/23 03/30/23 Rx lisinopril 40 mg tablet 40 mg PO DAILY #90 tabs 02/28/23 03/30/23 Rx rosuvastatin 20 mg tablet 20 mg PO DAILY #90 tabs 02/28/23 03/30/23 Rx metformin 500 mg tablet,extended 500 mg PO DAILY #90 tabs 03/28/23 03/30/23 Rx release 24 hr sodium bicarbonate 650 mg tablet See Rx Instructions .Route 03/28/23 03/30/23 Rx .COMPLEX #180 tabs venlafaxine 150 mg 150 mg PO DAILY #90 caps 03/28/23 03/30/23 Rx capsule,extended release 24 hr Laboratory Tests 04/09/23 04/12/23 04/12/23 04:47 16:51 20:02 WBC RBC Hgb Hct MCV MCH MCHC RDW Plt Count MPV Immature Gran % (Auto) Neut % (Auto) Lymph % (Auto) Bonner % (Auto) Eos % (Auto) Baso % (Auto) Lymph # (Auto) Bonner # (Auto) Eos # (Auto) Baso # (Auto) Abs Immat Gran (auto) Absolute Neuts (auto) Absolute Nucleated RBC Nucleated RBC % Sodium Potassium Chloride Carbon Dioxide Anion Gap BUN Creatinine Estim Creat Clear Calc Estimated GFR Glucose POC Capillary Glucose 122 H mg/dl 158 H mg/dl (65-105) (65-105) Calcium Magnesium Total Bilirubin AST ALT Alkaline Phosphatase Total Protein Albumin Glomerular Base Memb Ab <1.0 AI (<1.0) 04/13/23 04/13/23 04/13/23 04:52 08:28 11:44 WBC 12.7 H K/mm3 (4.5-10.0) RBC 2.92 L M/mm3 (4.2-5.4) Hgb 8.6 L g/dL (12.0-15.0) Hct 27.0 L % (37.0-47.0) MCV 92.5 fl (80-100) MCH 29.5 pg (26-34) MCHC 31.9 L g/dl (32-36) RDW 15.0 H % (11.5-14.5) Plt Count 325 k/mm3 (150-375) MPV 9.3 fl (7.4-10.4) Immature Gran % (Auto) 0.3 % (0-0.5) Neut % (Auto) 75.8 H % (45.5-73.1) Lymph % (Auto) 10.2 L % (18.3-44.2) Bonner % (Auto) 10.9 H % (2.6-8.5) Eos % (Auto) 2.4 % (0-4.4) Baso % (Auto) 0.4 % (0.2-1.2) Lymph # (Auto) 1.29 K/mm3 (0.9-3.2) Bonner # (Auto) 1.4 H K/mm3 (0.1-0.6) Eos # (Auto) 0.3 K/mm3 (0-0.3) Baso # (Auto) 0.1 K/mm3 (0.0-0.1) Abs Immat Gran (auto) 0.04 H K/mm3 (0.00-0.031) Absolute Neuts (auto) 9.6 H K/mm3 (1.3-6.7) Absolute Nucleated RBC
[2023-04-13] MEDS: ceFAZolin 3 GM/D5W 100 ML 100 ML IVPB ×2 (14:36)
[2023-04-13] MEDS: LIDO 1%/EPINEPHRINE 1:100,000 20 ML VIAL INFILTRATE (14:44)
--- NOTE | 2023-04-13 15:18 | W.PM.PROC2 ---
Procedure Note - Detailed Date of Procedure 04/13/23 Pre-op Diagnosis Acute kidney injury, chronic kidney disease stage 3, rhabdomyolysis Post-op Diagnosis Same Procedure Performed 1. Right internal jugular tunneled dialysis catheter placement using ultrasound and fluoroscopic guidance 2. Removal of right subclavian Henok dialysis catheter Surgeon John Silverman, Anesthesia General and Local (1% lidocaine with epinephrine) Indications This is a 62-year-old woman with acute on chronic kidney failure. She has a history of hypertension and stage 3 chronic kidney disease. She recently had a fall and developed rhabdomyolysis which has contributed to worsening kidney function. She was initiated on hemodialysis with a right subclavian temporary Henok dialysis catheter. She now is in need of a tunneled dialysis catheter to continue hemodialysis at this time. Discussions were made with the patient about treatment options and decision was made to proceed with tunneled dialysis catheter placement with removal of right subclavian Henok dialysis catheter. Findings Ultrasound guidance was used to identify the right internal jugular vein. This was visualized as a compressible vessel just lateral to the pulsatile carotid artery. The vein was accessed under ultrasound guidance. Fluoroscopy was then used to guide advancement of the guidewire followed by the dilator and sheath. Once access was gained with a guidewire the subclavian temporary dialysis catheter was removed. Pressure was held for several minutes. A 15.5 Khmer 24 cm dual lumen hemodialysis catheter was then placed with the tip in the distal SVC. The final fluoroscopic images demonstrated the catheter in proper position with no kinks along its path. Description of Procedure Procedure as well as risks, benefits, and alternatives were discussed with patient. Written consent was obtained and placed in chart prior to procedure. Patient was brought back to surgical suite. Placed supine on operating table. Time-out was done confirm patient procedure. IV sedation was then administered by the Anesthesia Department. Her right chest and neck area was prepped and draped in sterile fashion using chlorhexidine prep. Patient was placed in Trendelenburg position. SonoSite ultrasound was used to identify the right internal jugular vein. It was visualized as a compressible vessel just lateral to the carotid artery. 1% lidocaine with epinephrine was infiltrated directly over the vessel under ultrasound guidance. An 18 gauge introducer needle was then advanced under ultrasound guidance directly into the right internal jugular vein. Dark nonpulsatile blood was aspirated. A 0.035 in guidewire was then advanced through the needle under fluoroscopic guidance. The guidewire was visualized advancing all the way down into the superior vena cava. The sutures were then removed on the right subclavian dialysis catheter and the catheter was gently removed and pressure was applied for several minutes. No bleeding was noted at the exit site and the tip of the catheter was intact. 1% lidocaine with epinephrine was then infiltrated on the right anterior chest and along the tract up to the guidewire insertion site. A 5 mm incision was made with a 15 blade scalpel. A small jessica incision was then also made at the insertion site at the neck. The tunneler was then advanced from the chest incision up to the neck incision and the catheter tubing was brought up through this tract. The dilator and sheath were then advanced over the guidewire under fluoroscopic visualization. The dilator and guidewire were then removed leaving the sheath in place. The catheter tubing was then advanced through the sheath under fluoroscopic guidance. The sheath was unsnapped and carefully peeled away. The catheter tubing was released underneath the neck incision. Fluoroscopy was used to confirm proper placement of the catheter tubing and no kinks al
[2023-04-13] MEDS: SODIUM CHLORIDE 0.9% IV 500 ML 30 ML IV CONT (15:22)
[2023-04-13 15:34] LABS: Glucose Point of Care 119 mg/dl (65-105)
[2023-04-13 17:03] LABS: Glucose Point of Care 109 mg/dl (65-105)
--- NOTE | 2023-04-13 19:54 | PC.NURSE ---
PT TO DIALYSIS PER BED. VOICES NO C/O
[2023-04-13 20:20] LABS: Glucose Point of Care 146 mg/dl (65-105)
[2023-04-13] MEDS: EPOETIN ALFA-EPBX 10,000 UNITS/ML VIAL 10000 UNITS IV PUSH (21:49)
--- NOTE | 2023-04-13 23:27 | PC.NURSE ---
BACK FROM DIALYSIS. VOICES NO C/O
[2023-04-13] MEDS: hydrALAZINE HCL 25 MG TABLET PO (23:34)
[2023-04-13] MEDS: HYDROcodone/acetaminophen (*CRX) 7.5-325 MG TABLET 1 TAB PO (23:38)
[2023-04-14] VITALS (25 sets, daily range): BP systolic 121–187; BP diastolic 57–98; PULSE 75–98; RESP 14–19; TEMP 36–36.9; O2SAT 93–99
[2023-04-14 05:08] LABS: Basophils Percent Auto 0.3 % (0.2-1.2); Eosinophils Absolute Auto 0.2 K/mm3 (0-0.3); Eosinophils Percent Auto 1.7 % (0-4.4); Hematocrit 27.9 % (37.0-47.0); Hemoglobin 8.9 g/dL (12.0-15.0); Immature Granulocyte Absolute 0.03 K/mm3 (0.00-0.031); Immature Granulocyte Percent A 0.3 % (0-0.5); Lymphocytes Absolute Auto 1.08 K/mm3 (0.9-3.2); Lymphocytes Percent Auto 9.4 % (18.3-44.2); Mean Corpuscular HGB Conc 31.9 g/dl (32-36); Mean Corpuscular Hemoglobin 29.5 pg (26-34); Mean Corpuscular Volume 92.4 fl (80-100); Mean Platelet Volume 9.2 fl (7.4-10.4); Monocytes Absolute Auto 1.4 K/mm3 (0.1-0.6); Monocytes Percent Auto 12.5 % (2.6-8.5); Neutrophils Absolute Auto 8.7 K/mm3 (1.3-6.7); Neutrophils Percent Auto 75.8 % (45.5-73.1); Platelet Count Result 293 k/mm3 (150-375); Red Blood Count 3.02 M/mm3 (4.2-5.4); Red Cell Distribution Width 15.1 % (11.5-14.5); White Blood Count 11.5 K/mm3 (4.5-10.0)
[2023-04-14 05:30] LABS: Alanine Aminotransferase 19 U/L (6-35); Albumin Level 3.2 g/dL (3.5-5.1); Alkaline Phosphatase 78 U/L (38-126); Anion Gap 7 mmol/L (8-16); Aspartate Amino Transferase 24 U/L (14-36); Bilirubin,Total 0.6 mg/dL (0.2-1.3); Blood Urea Nitrogen 30 mg/dL (7-17); Calcium 9.4 mg/dL (8.4-10.2); Carbon Dioxide 27 mmol/L (22-30); Chloride 104 mmol/L (98-107); Estimated CRCL calculation 9 ml/min; Estimated Glomerular Filt Rate 7; Glucose 109 mg/dL (65-110); Magnesium 1.9 mg/dL (1.6-2.3); Potassium 4.4 mmol/L (3.4-5.0); Sodium 138 mmol/L (137-145)
[2023-04-14 08:22] LABS: Glucose Point of Care 107 mg/dl (65-105)
[2023-04-14] MEDS: LABETALOL HCL 100 MG TABLET PO ×2 (08:45→20:47)
[2023-04-14] MEDS: VERAPAMIL HCL ER 240 MG TABLET.ER PO (08:45)
[2023-04-14] MEDS: hydrALAZINE HCL 25 MG TABLET PO (08:46)
--- NOTE | 2023-04-14 11:48 | PCPTNOTE ---
Patient refused treatment this session due to patient not feeling well this date.
[2023-04-14 12:15] LABS: Glucose Point of Care 207 mg/dl (65-105)
--- NOTE | 2023-04-14 12:25 | WPDPN ---
Progress Note: A&P Assessment and Plan (1) Rhabdomyolysis: Code(s): M62.82 - Rhabdomyolysis Status: Acute Assessment and Plan: pt requiring emergent dialysis for severe SAEID patient now on hemodialysis improving, hold HD over weekend, reassess April 15 Urine output is increasing 04/14/2023 interval history:?patient acute severe SAEID requiring HD and seen by ict security specialist her uirne out put is improving, however her Scr is still elevated will need HD, on 04/11? patient ellen catherter was malfunctioning will need removal and replacement, seen by general surgeon was unable to do it on 04/11 as patient had eaten, and yesterday was holiday, on04/13 Patient had replacement of her dialysis catheter and after that she will have HD, today patient stats feels little tired, patient is scheduled to have HD today, she is urinating, her Scr has improved after HD yesterday, will continue PT/OT and monitor. (2) SAEID (acute kidney injury): Code(s): N17.9 - Acute kidney failure, unspecified Status: Acute Assessment and Plan: patient with baseline creatinine of 1.5 on December 2021 has evidence of rhabdomyolysis with elevated CPK levels watch kidney function daily appreciate nephrology consultation (3) Loss of consciousness: Code(s): R40.20 - Unspecified coma Status: Acute Assessment and Plan: resolved CT head negative for any acute lesions neuro nonfocal (4) Shoulder pain, left: Code(s): M25.512 - Pain in left shoulder Status: Acute Assessment and Plan: MRI left shoulder showed mild supraspinatus tendinopathy with swelling concerning for myopathy versus bursitis, likely secondary to rhabdomyolysis, also noted AC osteoarthritis Continue analgesics prn, PT/OT Plan Abnormal CT spine - multiple sub 6 mm pulmonary nodules- will need dedicated ct chest on a nonemergent basis Elevated leuk - likely stress reaction, has normalized since will order UA to rule out UTI, urine cx neg DVT prophylaxis with SCDs GI prophylaxis not indicated Code status full code Subjective Date/time seen: 04/14/23 12:25 Interval history: Interval history: pt requiring emergent dialysis for severe SAEID patient now on hemodialysis improving, hold HD over weekend, reassess April 15 Urine output is increasing 04/14/2023 interval history:?patient acute severe SAEID requiring HD and seen by ict security specialist her uirne out put is improving, however her Scr is still elevated will need HD, on 04/11? patient ellen brock was malfunctioning will need removal and replacement, seen by general surgeon was unable to do it on 04/11 as patient had eaten, and yesterday was holiday, Patient had replacement of her dialysis catheter and after that she will have HD, today patient stats feels little tired, patient is scheduled to have HD today, she is urinating, her Scr has improved after HD yesterday, will continue PT/OT and monitor. Review of Systems Review of Systems: 12 point review of systems was assessed and was negative except as noted in the HPI Exam Narrative: Morbidly obese Patient is comfortable, NAD HEENT: eyes are clear and none icteric LUNGS: Normal respiratory effort ABD: Distended Lower extremities: no edema SKIN: nonjaundiced Neuro: grossly intact. Objective Data Vital Signs Vital Signs: Vital Signs - 24 hr 04/13/23 13:24 04/13/23 15:22 04/13/23 15:35 Temperature 97.0 F L Pulse Rate 76 69 72 Respiratory Rate 20 20 18 Blood Pressure 155/70 H 104/52 L 115/56 L Pulse Oximetry 98 96 95 Oxygen Delivery Room Air Simple Face Mask Simple Face Mask Oxygen Flow Rate 6 6 04/13/23 15:50 04/13/23 16:05 04/13/23 16:20 Temperature Pulse Rate 72 73 73 Respiratory Rate 16 16 16 Blood Pressure 128/62 133/57 L 128/63 Pulse Oximetry 98 98 92 Oxygen Delivery Simple Face Mask Room Air Room Air Oxygen Flow Rate 6 04/13/23 16:35 04/13/23
[2023-04-14] MEDS: INSULIN ASPART (*BKC) 100 UNITS/ML SUB-Q (12:52)
--- NOTE | 2023-04-14 14:03 | PCPTNOTE ---
Attempted to see patient for PT, however patient refused. Patient reported she is waiting to go to dialysis and that she doesn't feel like doing therapy today.
[2023-04-14 17:53] LABS: Glucose Point of Care 94 mg/dl (65-105)
--- NOTE | 2023-04-14 18:12 | P.PNNP_ITS ---
Progress Note: A&P Assessment and Plan (1) SAEID (acute kidney injury): Code(s): N17.9 - Acute kidney failure, unspecified Status: Acute Assessment and Plan: * presumably due to rhabdomyolysis + prerenal factors leading to ATN * evaluation to date: * renal ultrasound okay * CPK very high on admission and * urine electrolytes non-prerenal * no evidence of infection * making more urine but renal function worsens in-between dialysis treatments * she will need outpatient dialysis until her renal function recovers * s/p PermCath placement * HD today and continue T/T/S schedule (2) Stage 3b chronic kidney disease: Code(s): N18.32 - Chronic kidney disease, stage 3b Status: Chronic Assessment and Plan: * baseline creatinine runs ~ 1.6 - 1.9mg/dl * based on outpatient evaluation, thought to be due to diabetes, hypertension, and possibly vascular disease (3) Rhabdomyolysis: Code(s): M62.82 - Rhabdomyolysis Status: Acute Assessment and Plan: * presumably due to prolonged down time on floor (~18 hours) following loss of consciousness * follow trend of CPK - improving * fall precautions (4) Loss of consciousness: Code(s): R40.20 - Unspecified coma Status: Acute Assessment and Plan: * etiology? * CT of head normal * no focal deficits * no reported seizure activity * Brain MRI results reviewed * EKG and troponins noted * continue supportive therapy (5) Anemia: Code(s): D64.9 - Anemia, unspecified Status: Acute Assessment and Plan: * presumably related to SAEID, CKD, and acute illness * Epogen with HD * follow trend of H/H (6) Hypertension: Code(s): I10 - Essential (primary) hypertension Status: Chronic Assessment and Plan: * reasonable control at this time * continue current medications * follow trend of hemodynamics Not opposed to discharge tomorrow but I am not sure outpatient dialysis will take a new patient on Tuesday -- if this is the case, then would tentatively plan discharge on Tuesday following inpatient dialysis treatment. Will continue to follow. Subjective Date/time seen: 04/14/23 18:12 Interval history: Follow-up for acute kidney injury/acute renal failure on chronic kidney disease and rhabdomyolysis. Unable to see yesterday as was out of room and in OR for procedure; tolerated dialysis yesterday evening and tolerating dialysis at the time of my visit (seen on HD at 6:00PM); tolerated PermCath placement yesterday afternoon; no apparent distress; continues to make reasonable urine. Exam Narrative: General: WD/WN AA female in NAD Heart: normal S1 and S2; no rub Lungs: clear to ausculation Abdomen: soft, nontender, nondistended, positive bowel sounds Extremities: no cyanosis or clubbing; trace edema Skin: warm and intact Objective Data Vital Signs Vital Signs: Vital Signs Temp Pulse Resp BP Pulse Ox O2 Del Method 04/14/23 16:00 84 04/14/23 12:00 79 04/14/23 14:12 98.1 F 84 18 144/57 H 99 04/14/23 08:00 88 04/14/23 08:45 Room Air 04/14/23 10:47 97.6 F 75 18 121/58 L 98 04/14/23 08:47 90 14 157/80 H 97 04/14/23 08:45 90 04/14/23 04:00 98.1 F 96 18 162/72 H 97 04/14/23 04:00 95
--- NOTE | 2023-04-14 18:12 | PM.PNNEP ---
Progress Note: A&P Assessment and Plan (1) SAEID (acute kidney injury): Code(s): N17.9 - Acute kidney failure, unspecified Status: Acute Assessment and Plan: presumably due to rhabdomyolysis + prerenal factors leading to ATN evaluation to date: renal ultrasound okay CPK very high on admission and urine electrolytes non-prerenal no evidence of infection making more urine but renal function worsens in-between dialysis treatments she will need outpatient dialysis until her renal function recovers s/p PermCath placement HD today and continue T/T/S schedule (2) Stage 3b chronic kidney disease: Code(s): N18.32 - Chronic kidney disease, stage 3b Status: Chronic Assessment and Plan: baseline creatinine runs ~ 1.6 - 1.9mg/dl based on outpatient evaluation, thought to be due to diabetes, hypertension, and possibly vascular disease (3) Rhabdomyolysis: Code(s): M62.82 - Rhabdomyolysis Status: Acute Assessment and Plan: presumably due to prolonged down time on floor (~18 hours) following loss of consciousness follow trend of CPK - improving fall precautions (4) Loss of consciousness: Code(s): R40.20 - Unspecified coma Status: Acute Assessment and Plan: etiology? CT of head normal no focal deficits no reported seizure activity Brain MRI results reviewed EKG and troponins noted continue supportive therapy (5) Anemia: Code(s): D64.9 - Anemia, unspecified Status: Acute Assessment and Plan: presumably related to SAEID, CKD, and acute illness Epogen with HD follow trend of H/H (6) Hypertension: Code(s): I10 - Essential (primary) hypertension Status: Chronic Assessment and Plan: reasonable control at this time continue current medications follow trend of hemodynamics Not opposed to discharge tomorrow but I am not sure outpatient dialysis will take a new patient on Tuesday -- if this is the case, then would tentatively plan discharge on Tuesday following inpatient dialysis treatment. Will continue to follow. Subjective Date/time seen: 04/14/23 18:12 Interval history: Follow-up for acute kidney injury/acute renal failure on chronic kidney disease and rhabdomyolysis. Unable to see yesterday as was out of room and in OR for procedure; tolerated dialysis yesterday evening and tolerating dialysis at the time of my visit (seen on HD at 6:00PM); tolerated PermCath placement yesterday afternoon; no apparent distress; continues to make reasonable urine. Exam Narrative: General: WD/WN AA female in NAD Heart: normal S1 and S2; no rub Lungs: clear to ausculation Abdomen: soft, nontender, nondistended, positive bowel sounds Extremities: no cyanosis or clubbing; trace edema Skin: warm and intact Objective Data Vital Signs Vital Signs: Vital Signs Temp Pulse Resp BP Pulse Ox O2 Del Method 04/14/23 16:00 84 04/14/23 12:00 79 04/14/23 14:12 98.1 F 84 18 144/57 H 99 04/14/23 08:00 88 04/14/23 08:45 Room Air 04/14/23 10:47 97.6 F 75 18 121/58 L 98 04/14/23 08:47 90 14 157/80 H 97 04/14/23 08:45 90 04/14/23 04:00 98.1 F 96 18 162/72 H 97 04/14/23 04:00 95 04/14/23 00:00 94 04/14/23 01:32 98.2 F 98 19 158/68 H 93 04/13/23 23:39 97.3 F L 98 18 190/81 H 91 04/13/23 23:29 100 04/13/23 23:33 98.0 F 94 16 183/95 H 04/13/23 23:00 92 179/92 H 04/13/23 22:40 94 182/91 H 04/13/23 22:20 95 187/92 H 04/13/23 22:00 87 184/91 H 04/13/23 20:00 80 04/13/23 21:40 86 176/83 H 04/13/23 21:20 84 172/86 H 04/13/23 21:00 83 178/90 H 04/13/23 20:40 82 179/88 H 04/13/23 20:20 81 167/74 H 04/13/23 20:00 81 171/83 H 04/13/23 19:50 97.8 F 81 16 158/76 H 04/13/23 19:32 97.4 F L 78 18 150/70 H 97 0
[2023-04-14] MEDS: EPOETIN ALFA-EPBX 4,000 UNITS/ML VIAL 8000 UNITS IV PUSH (19:26)
[2023-04-14] MEDS: EPOETIN ALFA-EPBX 2,000 UNITS/ML VIAL 2000 UNITS IV PUSH (19:28)
--- NOTE | 2023-04-14 20:40 | PC.NURSE ---
Pt returned from dialysis
[2023-04-14 21:05] LABS: Glucose Point of Care 77 mg/dl (65-105)
[2023-04-15] VITALS: PULSE 94
[2023-04-15 04:00] VITALS: BP 160/71; PULSE 92; PULSE 95; RESP 17; TEMP 36.6; O2SAT 98
[2023-04-15 05:06] LABS: Basophils Percent Auto 0.4 % (0.2-1.2); Eosinophils Absolute Auto 0.3 K/mm3 (0-0.3); Eosinophils Percent Auto 2.9 % (0-4.4); Hematocrit 25.6 % (37.0-47.0); Immature Granulocyte Absolute 0.05 K/mm3 (0.00-0.031); Immature Granulocyte Percent A 0.5 % (0-0.5); Mean Corpuscular HGB Conc 31.3 g/dl (32-36); Mean Corpuscular Hemoglobin 29.4 pg (26-34); Mean Corpuscular Volume 94.1 fl (80-100); Mean Platelet Volume 9.4 fl (7.4-10.4); Monocytes Absolute Auto 1.5 K/mm3 (0.1-0.6); Monocytes Percent Auto 15.9 % (2.6-8.5); Neutrophils Absolute Auto 5.9 K/mm3 (1.3-6.7); Neutrophils Percent Auto 62.3 % (45.5-73.1); Platelet Count Result 279 k/mm3 (150-375); Red Blood Count 2.72 M/mm3 (4.2-5.4); Red Cell Distribution Width 15.2 % (11.5-14.5); White Blood Count 9.5 K/mm3 (4.5-10.0)
[2023-04-15 05:19] LABS: Alanine Aminotransferase 15 U/L (6-35); Alkaline Phosphatase 75 U/L (38-126); Anion Gap 4 mmol/L (8-16); Aspartate Amino Transferase 20 U/L (14-36); Bilirubin,Total 0.5 mg/dL (0.2-1.3); Blood Urea Nitrogen 16 mg/dL (7-17); Calcium 9.3 mg/dL (8.4-10.2); Carbon Dioxide 29 mmol/L (22-30); Chloride 106 mmol/L (98-107); Estimated CRCL calculation 15 ml/min; Estimated Glomerular Filt Rate 12; Glucose 108 mg/dL (65-110); Magnesium 1.9 mg/dL (1.6-2.3); Potassium 3.9 mmol/L (3.4-5.0); Sodium 139 mmol/L (137-145)
[2023-04-15 08:00] VITALS: PULSE 90
[2023-04-15 08:22] VITALS: BP 170/72; PULSE 88; RESP 16; TEMP 36.6; O2SAT 100
[2023-04-15 08:26] LABS: Glucose Point of Care 120 mg/dl (65-105)
[2023-04-15 09:12] VITALS: PULSE 95
[2023-04-15] MEDS: hydrALAZINE HCL 25 MG TABLET PO (09:12)
[2023-04-15] MEDS: LABETALOL HCL 100 MG TABLET PO (09:12)
[2023-04-15] MEDS: VERAPAMIL HCL ER 240 MG TABLET.ER PO (09:12)
--- NOTE | 2023-04-15 11:03 | P.PNNP_ITS ---
Progress Note: A&P Assessment and Plan (1) SAEID (acute kidney injury): Code(s): N17.9 - Acute kidney failure, unspecified Status: Acute Assessment and Plan: * presumably due to rhabdomyolysis + prerenal factors leading to ATN * evaluation to date: * renal ultrasound okay * CPK very high on admission and * urine electrolytes non-prerenal * no evidence of infection * LEX and AntiGBM-ab negative; ANCA pending * making more urine but renal function worsens in-between dialysis treatments * she will need outpatient dialysis until her renal function recovers * s/p PermCath placement * HD tomorrow and continue T/T/S schedule (as this will be her outpatient schedule) (2) Stage 3b chronic kidney disease: Code(s): N18.32 - Chronic kidney disease, stage 3b Status: Chronic Assessment and Plan: * baseline creatinine runs ~ 1.6 - 1.9mg/dl * based on outpatient evaluation, thought to be due to diabetes, hypertension, and possibly vascular disease (3) Rhabdomyolysis: Code(s): M62.82 - Rhabdomyolysis Status: Acute Assessment and Plan: * presumably due to prolonged down time on floor (~18 hours) following loss of consciousness * follow trend of CPK - improving/normalized * fall precautions (4) Loss of consciousness: Code(s): R40.20 - Unspecified coma Status: Acute Assessment and Plan: * etiology? * CT of head normal * no focal deficits * no reported seizure activity * Brain MRI results reviewed * EKG and troponins noted * continue supportive therapy (5) Anemia: Code(s): D64.9 - Anemia, unspecified Status: Acute Assessment and Plan: * presumably related to SAEID, CKD, and acute illness * Epogen with HD * follow trend of H/H (6) Hypertension: Code(s): I10 - Essential (primary) hypertension Status: Chronic Assessment and Plan: * reasonable control at this time * continue current medications * follow trend of hemodynamics Not opposed to discharge today if otherwise medically stable along with outpatient dialysis schedule finalized and able to get outpatient dialysis treatment on Tuesday. Will continue to follow. Subjective Date/time seen: 04/15/23 11:03 Interval history: Follow-up for acute kidney injury/acute renal failure on chronic kidney disease and rhabdomyolysis. Tolerated dialysis yesterday afternoon/evening without any issues or problems; no apparent distress noted at this time; no issues/events overnight or earlier this morning; continues to make reasonable urine in spite of rising creatinine in between dialysis treatments. Exam Narrative: General: WD/WN AA female in NAD Heart: normal S1 and S2; no rub Lungs: clear to ausculation Abdomen: soft, nontender, nondistended, positive bowel sounds Extremities: no cyanosis or clubbing; trace edema Skin: no rash or nodules Objective Data Vital Signs Vital Signs: Vital Signs Temp Pulse Resp BP Pulse Ox O2 Del Method 04/15/23 08:00 90 04/15/23 08:00 Room Air 04/15/23 09:50 Room Air 04/15/23 09:18 Room Air 04/15/23 09:12 95 04/15/23 08:22 97.9 F 88 16 170/72 H 100 04/15/23 04:00 98 F 95 17 160/71 H 98 04/15/23 04:00 92 04/15/23 00:00 94
--- NOTE | 2023-04-15 11:03 | PM.PNNEP ---
Progress Note: A&P Assessment and Plan (1) SAEID (acute kidney injury): Code(s): N17.9 - Acute kidney failure, unspecified Status: Acute Assessment and Plan: presumably due to rhabdomyolysis + prerenal factors leading to ATN evaluation to date: renal ultrasound okay CPK very high on admission and urine electrolytes non-prerenal no evidence of infection LEX and AntiGBM-ab negative; ANCA pending making more urine but renal function worsens in-between dialysis treatments she will need outpatient dialysis until her renal function recovers s/p PermCath placement HD tomorrow and continue T/T/S schedule (as this will be her outpatient schedule) (2) Stage 3b chronic kidney disease: Code(s): N18.32 - Chronic kidney disease, stage 3b Status: Chronic Assessment and Plan: baseline creatinine runs ~ 1.6 - 1.9mg/dl based on outpatient evaluation, thought to be due to diabetes, hypertension, and possibly vascular disease (3) Rhabdomyolysis: Code(s): M62.82 - Rhabdomyolysis Status: Acute Assessment and Plan: presumably due to prolonged down time on floor (~18 hours) following loss of consciousness follow trend of CPK - improving/normalized fall precautions (4) Loss of consciousness: Code(s): R40.20 - Unspecified coma Status: Acute Assessment and Plan: etiology? CT of head normal no focal deficits no reported seizure activity Brain MRI results reviewed EKG and troponins noted continue supportive therapy (5) Anemia: Code(s): D64.9 - Anemia, unspecified Status: Acute Assessment and Plan: presumably related to SAEID, CKD, and acute illness Epogen with HD follow trend of H/H (6) Hypertension: Code(s): I10 - Essential (primary) hypertension Status: Chronic Assessment and Plan: reasonable control at this time continue current medications follow trend of hemodynamics Not opposed to discharge today if otherwise medically stable along with outpatient dialysis schedule finalized and able to get outpatient dialysis treatment on Tuesday. Will continue to follow. Subjective Date/time seen: 04/15/23 11:03 Interval history: Follow-up for acute kidney injury/acute renal failure on chronic kidney disease and rhabdomyolysis. Tolerated dialysis yesterday afternoon/evening without any issues or problems; no apparent distress noted at this time; no issues/events overnight or earlier this morning; continues to make reasonable urine in spite of rising creatinine in between dialysis treatments. Exam Narrative: General: WD/WN AA female in NAD Heart: normal S1 and S2; no rub Lungs: clear to ausculation Abdomen: soft, nontender, nondistended, positive bowel sounds Extremities: no cyanosis or clubbing; trace edema Skin: no rash or nodules Objective Data Vital Signs Vital Signs: Vital Signs Temp Pulse Resp BP Pulse Ox O2 Del Method 04/15/23 08:00 90 04/15/23 08:00 Room Air 04/15/23 09:50 Room Air 04/15/23 09:18 Room Air 04/15/23 09:12 95 04/15/23 08:22 97.9 F 88 16 170/72 H 100 04/15/23 04:00 98 F 95 17 160/71 H 98 04/15/23 04:00 92 04/15/23 00:00 94 04/14/23 20:00 87 04/14/23 22:49 98.5 F 92 18 148/67 H 96 04/14/23 20:47 87 04/14/23 20:28 98.1 F 93 17 178/88 H 04/14/23 20:14 89 186/98 H 04/14/23 20:00 87 179/87 H 04/14/23 19:40 89 183/92 H 04/14/23 19:20 89 184/91 H 04/14/23 19:00 87 176/90 H 04/14/23 18:40 88 187/89 H 04/14/23 18:20 87 183/91 H 04/14/23 18:00 85 183/86 H 04/14/23 17:40 83 175/86 H 04/14/23 17:20 84 185/91 H 04/14/23 17:13 84 171/88 H 04/14/23 17:03 98.2 F 87 16 180/91 H 04/14/23 16:00 84 Intake/Output Intake/Output: Intake & Output 04/12/23 04/13/23 04/14/23 0
--- NOTE | 2023-04-15 11:19 | PM.DS ---
DS: Admitting Diagnosis Discharge Date 04/15/2023 Admitting Diagnosis Loss of consciousness and weakness DS: Discharge Diagnosis Discharge Diagnosis (1) Rhabdomyolysis: Code(s): M62.82 - Rhabdomyolysis Status: Acute Assessment and Plan: pt requiring emergent dialysis for severe SAEID patient now on hemodialysis improving, hold HD over weekend, reassess April 15 Urine output is increasing 04/14/2023 interval history:?patient acute severe SAEID requiring HD and seen by bakery and deli sales manager her uirne out put is improving, however her Scr is still elevated will need HD, on 04/11? patient ellen catherter was malfunctioning will need removal and replacement, seen by general surgeon was unable to do it on 04/11 as patient had eaten, and yesterday was holiday, Patient had replacement of her dialysis catheter and after that she will have HD, today patient stats feels little tired, patient is scheduled to have HD today, she is urinating, her Scr has improved after HD yesterday, will continue PT/OT and monitor. (2) SAEID (acute kidney injury): Code(s): N17.9 - Acute kidney failure, unspecified Status: Acute Assessment and Plan: patient with baseline creatinine of 1.5 on December 2021 has evidence of rhabdomyolysis with elevated CPK levels watch kidney function daily appreciate nephrology consultation (3) Loss of consciousness: Code(s): R40.20 - Unspecified coma Status: Acute Assessment and Plan: resolved CT head negative for any acute lesions neuro nonfocal (4) Shoulder pain, left: Code(s): M25.512 - Pain in left shoulder Status: Acute Assessment and Plan: MRI left shoulder showed mild supraspinatus tendinopathy with swelling concerning for myopathy versus bursitis, likely secondary to rhabdomyolysis, also noted AC osteoarthritis Continue analgesics prn, PT/OT Plan Abnormal CT spine - multiple sub 6 mm pulmonary nodules- will need dedicated ct chest on a nonemergent basis Elevated leuk - likely stress reaction, has normalized since will order UA to rule out UTI, urine cx neg DVT prophylaxis with SCDs GI prophylaxis not indicated Code status full code DS: Summary Hospital Course Reason for hospitalization: Loss of consciousness and weakness Narrative: Patient is a 62-year-old female with past medical history of hypertension and diabetes coming in for loss of consciousness and weakness of 1 day duration.? Patient said that on Tuesday patient had loss of consciousness.? Patient remembers waking up in the morning and when she came to it was already at night.? She does not remember any events leading to her loss of consciousness.? She denies any headache, fever, chest pain, abdominal pain, bladder or bowel incontinence.? She denies any history of seizures in the past.? She does not remember any tonic clonic activity.? Patient said that on Tuesday morning when she woke up she tried to reach for something but fell on the floor and was unable to get up.? She used her arms to scoot on the floor and ask for help. Patient says she has diabetes but does not usually check her blood sugars.? She does not recall any recent hypoglycemic episodes.? She said she takes her blood pressure medications regularly although her blood pressure was elevated to 186 on initial presentation to the ER.? She said she is still able to urinate without difficulty.? She has no known focal deficits. In the ER patient had imaging of her head which was negative for any acute lesions.? She had creatinine over 4 which is new, her last creatinine was 1.5 in December 2021.? She denies any chest pain, numbness, focal deficits, or any known sick contacts. She denies any tobacco, alcohol or drug use.? She said she stopped smoking about 20 years ago. Hospital Course: ?patient acute severe SAEID requiring HD and seen by bakery and deli sales manager her uirne out put is improving, however her Scr is still elevated will need
--- NOTE | 2023-04-15 11:31 | PCPTNOTE ---
On 04/15/23, the student, [Soraida Resendez], provided care and completed [facility] documentation on this patient. I have reviewed the student's documentation and agree with the findings.
[2023-04-15 12:06] LABS: Glucose Point of Care 164 mg/dl (65-105)
[2023-04-15 12:51] VITALS: BP 164/72; PULSE 84; RESP 16; TEMP 36.4; O2SAT 100
[2023-04-16 01:42] LABS: ANCA Screen Negative (Negative)
== END 2023-04-15 16:50 | disposition home or self-care (01) | DRG 674 ==
LOC: ANHED 20:12 → ANHIMU 21:15 → ANH2MED 04-01 14:55
PROVIDERS: Family Medicine; Hospitalist; Internal Medicine Nephrology; Student in an Organized Health Care Education/Training Program; Surgery; Admitting Provider Internal Medicine; Emergency Provider Emergency Medicine; PCP Family Medicine Adolescent Medicine; Visit Provider Family Medicine
PROC: 02HV33Z Insertion of Infusion Device into Superior Vena Cava, Percutaneous Approach (ICD-10-PCS; CPT 36908; principal; 2023-04-03 15:00)
PROC: 0JH63XZ Insertion of Tunneled Vascular Access Device into Chest Subcutaneous Tissue and Fascia, Percutaneous Approach (ICD-10-PCS; CPT 36908; principal; 2023-04-13 15:00)
DX: N17.0 Acute kidney failure with tubular necrosis (principal); M62.82 Rhabdomyolysis; T83.018A Breakdown (mechanical) of other urinary catheter, initial encounter; W19.XXXA Unspecified fall, initial encounter; R55 Syncope and collapse; E11.22 Type 2 diabetes mellitus with diabetic chronic kidney disease; E78.5 Hyperlipidemia, unspecified; F41.9 Anxiety disorder, unspecified; F32.A Depression, unspecified; I12.9 Hypertensive chronic kidney disease with stage 1 through stage 4 chronic kidney disease, or unspecified chronic kidney disease; M19.012 Primary osteoarthritis, left shoulder; M77.8 Other enthesopathies, not elsewhere classified; N18.32 Chronic kidney disease, stage 3b; R77.8 Other specified abnormalities of plasma proteins; R00.0 Tachycardia, unspecified; R91.8 Other nonspecific abnormal finding of lung field; R74.01 Elevation of levels of liver transaminase levels; R06.89 Other abnormalities of breathing; Z79.84 Long term (current) use of oral hypoglycemic drugs; Z85.3 Personal history of malignant neoplasm of breast; Z87.891 Personal history of nicotine dependence
CPT/HCPCS: 36415; 70450; 70551; 71045; 71046; 72125; 73030; 73221; 76775; 77001; 80048; 80053; 80069; 80074; 81001; 82140; 82550; 82570; 82948; 83036; 83520; 83605; 83690; 83735; 84100; 84300; 84439; 84484; 85025; 85027; 85055; 85610; 85730; 86036; 86038; 86704; 86706; 87040; 87086; 87340; 93005; 96374; 96375; 97110; 97116; 97161; 97164; 97165; 97530; 97535; 99285; A9270; C1750; C1752; G0257; J0360; J0690; J1644; J1815; J2001; J2250; J2704; J2997; J3010; J7030; J7040; P9047; Q5105

== ENCOUNTER 2023-04-18 00:14 | Inpatient (IN) | payer OTHER, SELFPAY ==
[2023-04-18] VITALS (26 sets, daily range): BP systolic 114–186; BP diastolic 55–87; PULSE 76–100; RESP 13–20; TEMP 36.2–37.2; O2SAT 96–100; BMI 40.5
--- NOTE | ~2023-04-18 | XR_ITS ---
Portable chest x-ray Comparison: 04/13/2023 Clinical History: Hypoglycemia Findings: Stable right-sided central venous line. There is small left pleural effusion with mild lef t basilar haziness. Right lung clear. Cardiomediastinal silhouette is stable. Bones and soft tissues are unremarkable. Impression: Small left pleural effusion with left basilar pulmonary edema/atelectasis versus pneumonia. Correlate clinically. Stable support line. Reviewed, dictated and finalized at location . Impression: Small left pleural effusion with left basilar pulmonary edema/atelectasis versu s pneumonia. Correlate clinically. Stable support line.
[2023-04-18 00:30] LABS: Glucose Point of Care 32 mg/dl (65-105)
[2023-04-18] MEDS: DEXTROSE 50% 25 GM/50 ML SYRINGE IV PUSH ×8 (00:32→23:12)
--- NOTE | 2023-04-18 00:33 | PC.NURSE ---
This RN administered 50% dextrose via IV per EDP verbal order read back by EDP Dr. Melton. Pt blood glucose read 31 on bedside glucose device.
--- NOTE | 2023-04-18 00:46 | ED.GENADULT ---
HPI - General Adult General Chief complaint: Recheck/Abnormal Lab/Rx Stated complaint: Low BG Time Seen by Provider: 04/18/23 00:24 Source: patient and family Mode of arrival: ambulatory Limitations: no limitations History of Present Illness HPI narrative: This is a 62-year-old female with PMH of ESRD, DM type II, recent SAEID, HTN, anemia who presents to the ED with chief complaint of low blood sugars. Patient was recently discharged 2 days ago from the hospital after having an SAEID that prompted emergent dialysis. She is now scheduled to run dialysis on Tuesdays, , Saturdays. States she went to her dialysis run yesterday. Patient states that Tuesday and Tuesday she was feeling fine. She states this morning she ate oatmeal and drink water. She had a nap in the afternoon and then woke up confused according to family members who are supplementing history. They report that her blood sugar at that time was 21. Reports EMS was called and she received some kind of fluids to help. Reports they were checking the blood sugars after this occurred and they kept going down despite her eating food. Denies chest pain, shortness of breath, fevers, chills, nausea, vomiting. Patient states that she is talking me she is feeling much better. States she has been taking her reguar dosing of glimepiride and metformin. She does not take insulin. States her previous A1c's were in the 6-7 range. Related Data Home Medications Medication Instructions Recorded Confirmed labetalol 200 mg tablet 200 mg PO Q12H 08/26/22 03/30/23 Allergies Allergy/AdvReac Type Severity Reaction Status Date / Time niacin AdvReac Unknown flushing Verified 03/30/23 18:33 PMFSH Past Medical History Medical History Anxiety Depression HX: breast cancer (2004) 2004 Hypertension Normal colonoscopy 07/20 Vaginal polyp Surgical History Surgical History History of hysteroscopy 2020 S/P right mastectomy s/p chemo Family History Family History Mother Family history of lung cancer Hypertension Grandparent Cerebrovascular accident Diabetes mellitus Hypertension Son Family history of cardiovascular disease Heart disease Hypertension Father Hypertension Social History Social History Smoking packs per day: 0.5 Smoking cigarettes per day: 10.0 Years smoked: 20 Smoking pack-years: 10.00 Smoking status: Former smoker Tobacco type: cigarettes Second hand tobacco smoke exposure: Yes Smoking end date: 10/10/05 Alcohol intake: never Alcohol use details: Very seldom Substance use: never Substance use type: does not use Lack of Transportation: No Lack of Food: Never True Current Housing: I Have Housing Concerned About Future Housing: No Difficulty Paying Gas/Electric Bills: No Difficulty Paying for Meds: No Currently Unemployed: No Education: High School Diploma/GED Difficulty w/ Childcare or Family Care: No Living arrangements: alone Occupation/Education: occupation Gender identity (if verbalized by the patient): Female Sexual Orientation (if Verbalized by the Patient): Straight or Heterosexual Spiritual care concerns: No Agree to blood products: Yes Exam Narrative: GENERAL: Well-appearing, well-nourished, and in no acute distress. Pleasant and conversational. HEAD: Normocephalic, atraumatic. EYES: PERRLA and EOMI. ENT: Nares clear, no rhinorrhea or epistaxis. Mucous membranes moist. Oropharynx without tonsillar hypertrophy exudate or other lesions. NECK: Supple. No adenopathy or masses. CHEST: HD cath in place in the right chest. No respiratory distress. Clear to auscultation. No wheezes rales or rhonchi HEART: Regular rate and rhythm. No murmur
--- NOTE | 2023-04-18 00:51 | ECG_ITS ---
Measurements Intervals [place] Rate: 89 P: 53 ND: 206 QRS: 26 QRSD: 97 T: 56 QT: 376 QTc: 459 Interpretive Statements SINUS RHYTHM NONSPECIFIC T-WAVE ABNORMALITY- HIGH LATERAL LEADS BASELINE ARTIFACT- V6 BORDERLINE ECG COMPARED TO ECG 03/30/2023 18:05:31 SINUS RHYTHM NOW PRESENT Electronically Signed On 04-18-2023 6:56:34 CDT by Chuck Nava D.O.
[2023-04-18 00:55] LABS: Glucose Point of Care 116 mg/dl (65-105)
[2023-04-18 00:58] LABS: Anion Gap 2 mmol/L (8-16); Blood Urea Nitrogen 22 mg/dL (7-17); Calcium 9.9 mg/dL (8.4-10.2); Carbon Dioxide 30 mmol/L (22-30); Chloride 104 mmol/L (98-107); Estimated CRCL calculation 12 ml/min; Estimated Glomerular Filt Rate 9; Glucose 32 mg/dL (65-110); Potassium 3.8 mmol/L (3.4-5.0); Sodium 136 mmol/L (137-145)
[2023-04-18 01:21] LABS: Alanine Aminotransferase 17 U/L (6-35); Albumin Level 3.5 g/dL (3.5-5.1); Alkaline Phosphatase 77 U/L (38-126); Aspartate Amino Transferase 25 U/L (14-36); Bilirubin,Total 0.5 mg/dL (0.2-1.3)
[2023-04-18 01:23] LABS: Basophils Absolute Auto 0.1 K/mm3 (0.0-0.1); Basophils Percent Auto 0.7 % (0.2-1.2); Eosinophils Absolute Auto 0.2 K/mm3 (0-0.3); Eosinophils Percent Auto 2.1 % (0-4.4); Hematocrit 27.5 % (37.0-47.0); Hemoglobin 8.4 g/dL (12.0-15.0); Immature Granulocyte Absolute 0.03 K/mm3 (0.00-0.031); Immature Granulocyte Percent A 0.3 % (0-0.5); Lymphocytes Absolute Auto 1.84 K/mm3 (0.9-3.2); Lymphocytes Percent Auto 17.2 % (18.3-44.2); Mean Corpuscular HGB Conc 30.5 g/dl (32-36); Mean Corpuscular Hemoglobin 29.5 pg (26-34); Mean Corpuscular Volume 96.5 fl (80-100); Monocytes Absolute Auto 1.3 K/mm3 (0.1-0.6); Neutrophils Absolute Auto 7.3 K/mm3 (1.3-6.7); Neutrophils Percent Auto 67.7 % (45.5-73.1); Platelet Count Result 351 k/mm3 (150-375); Red Blood Count 2.85 M/mm3 (4.2-5.4); Red Cell Distribution Width 15.5 % (11.5-14.5); White Blood Count 10.7 K/mm3 (4.5-10.0)
[2023-04-18 01:48] LABS: Glucose Point of Care 61 mg/dl (65-105)
[2023-04-18] MEDS: DEXTROSE 5%/0.9% SOD CHL 1,000 ML 100 ML IV CONT (01:56)
[2023-04-18 02:02] LABS: Appearance Urine Clear (Clear); Bacteria Urine None Seen /hpf; Bilirubin Urine Negative (Negative); Blood Urine Trace (Negative); Color Urine Yellow (Yellow); Glucose Urine UA Negative (Negative); Ketones Urine Negative (Negative); Leukocyte Esterase Ur Trace LEU/UL (Negative); Nitrate Urine Negative (Negative); Non Pathogenic Casts 0-2; Protein Urine 1+ mg/dL (Negative); RBC Urine 0-2 /hpf (0-2); Specific Grav Ur 1.005 (1.001-1.035); Squamous Epithelial Cell Urine None seen /hpf (Few)
[2023-04-18 02:08] LABS: Glucose Point of Care 41 mg/dl (65-105)
[2023-04-18 02:09] LABS: Add Urine Microscopic? YES
[2023-04-18 02:29] LABS: Glucose Point of Care 151 mg/dl (65-105)
--- NOTE | 2023-04-18 02:50 | PC.NURSE ---
discontinuing D5 and initiating D10 per hospitalist Dr. Weiner.
--- NOTE | 2023-04-18 02:50 | PM.IMHP ---
H&P: HPI History of Present Illness Date/Time: 04/18/23 02:50 Chief Complaint: Low blood sugars Narrative: 62-year-old female with a past medical history of essential hypertension, type 2 diabetes mellitus, and end-stage renal disease recently started on hemodialysis 04/03/2023 who presented to the ER with hypoglycemia. The patient has been admitted to the hospital 03/30/2023 through 04/15/2023 for acute on chronic renal failure due to rhabdomyolysis from fall and immobility after a fall. During the hospitalization she had a right subclavian non tunneled Henok catheter placed on the which was subsequently removed on the 13 of April and she had a and right internal jugular tunneled dialysis catheter placed. She was discharged home on the . She reports that she was feeling well and having no complaints. She went home with her cousin so that she could have some assistance for couple of days. She was planning to return home to her own home this week. However when she woke on the morning of the she was confused. Her cousin checked her Accu-Chek inter glucose was low. EMS was called. In the EMS gave her an amp of D50. She did eat something and her glucoses kept dropping. She could not eat enough to keep her glucoses up. She decided to come into the ER. Her glucose when EMS was at her house and was 21. She reports that she has not really been checking her blood sugars at home. She only intermittently checked on before her last hospitalization. Her A1c during her last hospitalization was 5.6%. She was not rate requiring her hypoglycemic agents while in the hospital. When she was discharged from the hospital her metformin and glimepiride were continued. She has skipped her dose of glimepiride and metformin when she had dialysis on Tuesday but took them that evening when she got home. She also took her morning doses on Tuesday. She went took a nap and when she got up is when she is hypoglycemic. She denies any nausea or vomiting. She was not aware that she was hypoglycemic in the only reason that she knew she was confused was because her cousin told her she was. She denies ever having hypoglycemic symptoms prior. She denies any sweating or fatigue. She does note that her legs have been more swollen recently. Her legs will improve if she keeps them elevated. She denies any shortness of breath chest pain or palpitations. She is still producing urine. She reports that most the time she feels as if she has to urinate more at night and has to get up multiple times a night to pee. She denies any dysuria or hematuria. She does not have as many episodes of having a urinate during the day. The patient does snore and has daytime fatigue. She has never had a sleep study. Review of Systems Review of Systems: 12 systems were reviewed with pertinent positives and negatives per HPI. Except as documented in the HPI, all other systems were reviewed and are negative. [facility] Past Medical History Medical History (Updated 04/18/23 @ 09:15 by Merle Weiner DO) Anxiety Breast cancer (~2004) Right breast Depression Diabetic peripheral neuropathy End-stage renal disease on hemodialysis Chronic kidney disease due to hypertension and diabetes with final insult kidneys with severe rhabdomyolysis March 2023. Started hemodialysis March 2023 Essential hypertension Normal colonoscopy 07/20 Obesity (BMI 30-39.9) Primary hyperparathyroidism (11/2020) Type 2 diabetes mellitus Vaginal polyp Vitamin D deficiency Surgical History Surgical History (Updated 04/18/23 @ 03:13 by Merle Weiner DO) History of hysteroscopy 2020 S/P dialysis catheter insertion Right IJ 04/13/2023 S/P right mastectomy s/p chemo Family History Family History (Updated 04/18/23 @ 09:06 by Merle Weiner DO) Mother Family history of lung cancer Hypertension Grandparent Cerebrovascular accident Diabetes mellitus Hypertension Son Family hi
[2023-04-18] MEDS: DEXTROSE 10% 1,000 ML 50 ML IV CONT (02:54)
[2023-04-18 03:06] LABS: Glucose Point of Care 89 mg/dl (65-105)
--- NOTE | 2023-04-18 03:21 | PC.NURSE ---
100mL of 5% dextrose with normal saline was infused to patient before discontinuing per hospitalist Dr. Weiner.
--- NOTE | 2023-04-18 04:00 | ADMGEN ---
This patient, Gena Pierre, was admitted to IMU Room 210-01. Patient/family oriented to hospital policies and general routines including ID bracelet, bed and alarms, visiting hours, pain management, procedures, bathroom and other care routines, personal items, smoking policy, room service/diet, and visiting hours. Information on how to activate the Rapid Response Team has been discussed. Patient/Family are encouraged to report perceived risks to care and to ask questions if they do not understand what they are told or what they should do.
[2023-04-18 04:09] LABS: Glucose Point of Care 54 mg/dl (65-105)
[2023-04-18 05:35] LABS: Glucose Point of Care 121 mg/dl (65-105)
[2023-04-18 05:35] LABS: Glucose Point of Care 54 mg/dl (65-105)
[2023-04-18] MEDS: GLUCAGON FOR INJ 1 MG VIAL IM ×2 (05:45→23:16)
[2023-04-18 06:07] LABS: Glucose Point of Care 114 mg/dl (65-105)
[2023-04-18 06:34] LABS: Glucose Point of Care 107 mg/dl (65-105)
[2023-04-18 07:51] LABS: Glucose Point of Care 74 mg/dl (65-105)
[2023-04-18] MEDS: HEPARIN SODIUM 5,000 UNITS/ML VIAL 5000 UNITS SUB-Q ×2 (08:54→20:03)
[2023-04-18] MEDS: VERAPAMIL HCL ER 240 MG TABLET.ER PO (08:54)
[2023-04-18] MEDS: buPROPion HCL XL (24 HR) 150 MG TABCR 300 MG PO (08:54)
[2023-04-18] MEDS: VENLAFAXINE HCL XR 75 MG CAP.ER.24H 150 MG PO (08:54)
[2023-04-18] MEDS: ROSUVASTATIN 10 MG TABLET 20 MG PO (08:54)
[2023-04-18] MEDS: LABETALOL HCL 100 MG TABLET PO ×2 (08:54→20:03)
[2023-04-18] MEDS: SODIUM BICARBONATE TAB 650 MG TABLET PO ×2 (08:54→17:52)
[2023-04-18 09:42] LABS: Glucose Point of Care 54 mg/dl (65-105)
--- NOTE | 2023-04-18 09:45 | PM.CNNEP ---
Assessment and Plan Assessment and plan (1) SAEID (acute kidney injury): Code(s): N17.9 - Acute kidney failure, unspecified Status: Acute Assessment and Plan: presumably due to rhabdomyolysis + prerenal factors leading to ATN previous evaluation noted: renal ultrasound okay urine electrolytes non-prerenal no evidence of infection negative serologies good urine output but renal function/creatinine rises/worsens in-between dialysis treatments continue T/T/S outpatient dialysis schedule follow trend of labs for possible renal recovery (2) Stage 3b chronic kidney disease: Code(s): N18.32 - Chronic kidney disease, stage 3b Status: Inactive Assessment and Plan: baseline creatinine runs ~ 1.6 - 1.9mg/dl based on outpatient evaluation, thought to be due to diabtes, hypertension, and possibly vascular disease (3) Hypoglycemia: Code(s): E16.2 - Hypoglycemia, unspecified Status: Acute Assessment and Plan: as noted on presentation presumably secondary to medications (metformin + glimepiride) was not taking these medications during last/recent hospitalization however, these meds were continued on discharge on dextrose IVFs follow accu-checks awaiting clearance of oral hypoglycemics (4) Hypertension: Qualifiers: Hypertension type: secondary to other renal disorders Qualified Code(s): I15.1 - Hypertension secondary to other renal disorders; N28.89 - Other specified disorders of kidney and ureter Code(s): I10 - Essential (primary) hypertension Status: Chronic Assessment and Plan: reasonable control at this time follow trend of hemodynamics (5) Anemia: Code(s): D64.9 - Anemia, unspecified Status: Acute Assessment and Plan: presumably related to SAEID and CKD Epogen with HD follow trend of H/H (6) Type 2 diabetes mellitus with diabetic chronic kidney disease: Code(s): E11.22 - Type 2 diabetes mellitus with diabetic chronic kidney disease Status: Chronic Assessment and Plan: reasonable control by last A1c glycemic control per hospitalists see #3 I will continue to follow the patient with you while she remains hospitalized and make further recommendations as deemed necessary. Thank you for allowing me to participate in the care of this patient. History of Present Illness Reason for Consult Consult date: 04/18/23 Reason for consult: acute renal failure (on chronic kidney disease [requiring dialysis]) Chief Complaint Chief complaint: Acute Hypoglycemia/Type II DM History of Present Illness Narrative: The patient is a 62-year-old female with a past medical history as outlined below who presented to [facility] Emergency room for further evaluation of hypoglycemia. The patient was just recently discharged from [facility] after being hospitalized for acute renal failure/acute kidney injury on top of her baseline chronic kidney disease thought to be secondary to severe/significant rhabdomyolysis that required initiation of renal replacement therapy /dialysis. Unfortunately, her renal function did not recover despite ongoing aggressive medical therapy /care and it was felt that recovery would eventually occur but she would require renal replacement therapy on discharge. Since her discharge, she had been doing reasonably well up until the day prior to admission when she woke up somewhat confused. Her cousin checked on her and noted that her blood sugar was quite low. Due to this, EMS was called and on their arrival that confirmed her hypoglycemia and she received an amp of D50. She did eat something however her blood sugar continued to remain low if not worsened. Despite ongoing attempts to optimize her blood sugar, all conservative therapy failed and she was subsequently brought to the emergency room for further assessment. Workup and evaluation in
--- NOTE | 2023-04-18 09:45 | P.CONNP_ITS ---
Assessment and Plan Assessment and plan (1) SAEID (acute kidney injury): Code(s): N17.9 - Acute kidney failure, unspecified Status: Acute Assessment and Plan: * presumably due to rhabdomyolysis + prerenal factors leading to ATN * previous evaluation noted: * renal ultrasound okay * urine electrolytes non-prerenal * no evidence of infection * negative serologies * good urine output but renal function/creatinine rises/worsens in-between dialysis treatments * continue T/T/S outpatient dialysis schedule * follow trend of labs for possible renal recovery (2) Stage 3b chronic kidney disease: Code(s): N18.32 - Chronic kidney disease, stage 3b Status: Inactive Assessment and Plan: * baseline creatinine runs ~ 1.6 - 1.9mg/dl * based on outpatient evaluation, thought to be due to diabtes, hypertension, and possibly vascular disease (3) Hypoglycemia: Code(s): E16.2 - Hypoglycemia, unspecified Status: Acute Assessment and Plan: * as noted on presentation * presumably secondary to medications (metformin + glimepiride) * was not taking these medications during last/recent hospitalization * however, these meds were continued on discharge * on dextrose IVFs * follow accu-checks * awaiting clearance of oral hypoglycemics (4) Hypertension: Qualifiers: Hypertension type: secondary to other renal disorders Qualified Code(s): I15.1 - Hypertension secondary to other renal disorders; N28.89 - Other specified disorders of kidney and ureter Code(s): I10 - Essential (primary) hypertension Status: Chronic Assessment and Plan: * reasonable control at this time * follow trend of hemodynamics (5) Anemia: Code(s): D64.9 - Anemia, unspecified Status: Acute Assessment and Plan: * presumably related to SAEID and CKD * Epogen with HD * follow trend of H/H (6) Type 2 diabetes mellitus with diabetic chronic kidney disease: Code(s): E11.22 - Type 2 diabetes mellitus with diabetic chronic kidney disease Status: Chronic Assessment and Plan: * reasonable control by last A1c * glycemic control per hospitalists * see #3 I will continue to follow the patient with you while she remains hospitalized and make further recommendations as deemed necessary. Thank you for allowing me to participate in the care of this patient. History of Present Illness Reason for Consult Consult date: 04/18/23 Reason for consult: acute renal failure (on chronic kidney disease [requiring dialysis]) Chief Complaint Chief complaint: Acute Hypoglycemia/Type II DM History of Present Illness Narrative: The patient is a 62-year-old female with a past medical history as outlined below who presented to [facility] Emergency room for further evaluation of hypoglycemia. The patient was just recently discharged from [facility] after being hospitalized for acute renal failure/acute kidney injury on top of her baseline chronic kidney disease thought to be secondary to severe/significant rhabdomyolysis that required initiation of renal replacement therapy /dialysis. Unfortunately, her renal function did not recover despite ongoing aggressive medical therapy /care and it was felt that recovery would eventually occur but she would require renal replacement therapy on discharge. Since her discharge, she had been doing reasonably well up until the day prior to admission when she woke up somewhat confused. Her cousin checked on her and noted that h
--- NOTE | 2023-04-18 09:47 | PM.IMPN ---
Progress Note: A&P Assessment and Plan (1) Hypoglycemia: Code(s): E16.2 - Hypoglycemia, unspecified Status: Acute Assessment and Plan: Patient presents with confusion due to severe hypoglycemia due to metformin and glimepiride in the setting of ESRD. She was hospitalized here 03/30-04/15 and was off these medications but were restarted at discharge. She took Amaryl BID for 2 days prior to admission resulting in the hypoglycemia. Patient started on D5 but advanced to D10 at 100mL/hr. Glucose soft but stable. Will continue q.1 hour Accu-Cheks until the patient's glucoses are persistently above 100 x 2 values. Then will change Accu-Cheks to q.2 hours in do a sequential distancing of Accu-Cheks based on glucoses. Given that the patient's hemoglobin A1c was 5.6 prior to her requiring hemodialysis she will not likely need to be continued on any hypoglycemic agents in the near future. It may take a few days for her to clear Amaryl. (2) Type 2 diabetes mellitus with diabetic chronic kidney disease: Code(s): E11.22 - Type 2 diabetes mellitus with diabetic chronic kidney disease Status: Acute Assessment and Plan: A1c 5.6. As above. Wean off D10 wean able. (3) Hypertension: Qualifiers: Hypertension type: secondary to other renal disorders Qualified Code(s): I15.1 - Hypertension secondary to other renal disorders; N28.89 - Other specified disorders of kidney and ureter Code(s): I10 - Essential (primary) hypertension Status: Chronic Assessment and Plan: Patient's blood pressure was reviewed on 04/18 Blood pressure elevated. Will resume hydralazine, Verapamil and Labetalol. She was not on lisnopril last admission but added at discharge. Will continue to follow. Resume lisinopril if BP requires (4) End-stage renal disease on hemodialysis: Code(s): N18.6 - End stage renal disease; Z99.2 - Dependence on renal dialysis Status: Acute Assessment and Plan: Patient is euvolemic clinically. She is on hemodialysis Tuesday- -Tuesday days. Consult nephrology for plan dialysis tomorrow. Subjective Date/time seen: 04/18/23 09:47 Interval history: 62yo female with ESRD, DM and HTN here for hypoglycemia. Patient took Amaryl b.i.d. on 04/16 and 04/17. She has been taking her lisinopril at home and her BP has been stable. She denies CP or SOB. No n/v. She is eating normally. HD is on //Tue. Exam Narrative: AF 98.2 176/77 100 18 99% ra Gen - NARD Chest - CTA bilaterally, nml RR. Tunneled HD catheter right upper chest CV - RRR S1/S2.Tele showing no significant dysrhythmias Abd - Soft, obese, NT, Positive BS Ext - No pedal edema Psych - Nml mood and affect Skin - Warm and dry Objective Data Vital Signs Vital Signs: Vital Signs - 24 hr 04/18/23 00:17 04/18/23 00:31 04/18/23 00:46 Temperature 97.4 F L Pulse Rate 97 94 92 Respiratory Rate 20 16 18 Blood Pressure 186/87 H 173/79 H 163/73 H Pulse Oximetry 97 100 100 Oxygen Delivery Room Air 04/18/23 01:01 04/18/23 01:16 04/18/23 01:31 Temperature Pulse Rate 91 86 86 Respiratory Rate 15 13 13 Blood Pressure 174/72 H 162/72 H 165/74 H Pulse Oximetry 100 100 100 Oxygen Delivery 04/18/23 02:00 04/18/23 02:15 04/18/23 02:30 Temperature Pulse Rate 89 92 93 Respiratory Rate 14 18 18 Blood Pressure Pulse Oximetry 100 100 100 Oxygen Delivery 04/18/23 02:45 04/18/23 03:00 04/18/23 04:09 Temperature 97.2 F L Pulse Rate 89 91 91 Respiratory Rate 18 17 20 Blood Pressure 174/73 H Pulse Oximetry 100 100 100 Oxygen Delivery 04/18/23 04:15 04/18/23 04:02 04/18/23 06:00 Temperature Pulse Rate 93 93 Respiratory Rate Blood Pressure Pulse Oximetry Oxygen Delivery Room Air 04/18/23 07:48 04/18/23 08:54 04/18/23 08:00 Temperature 98.2 F Pulse Rate 96 100 93 Respiratory Rate 18 Blood Pressure 176/77 H Pulse Oximetry 99
[2023-04-18 10:13] LABS: Glucose Point of Care 98 mg/dl (65-105)
[2023-04-18 11:02] LABS: Glucose Point of Care 92 mg/dl (65-105)
[2023-04-18 11:25] LABS: Glucose Point of Care 98 mg/dl (65-105)
[2023-04-18] MEDS: hydrALAZINE HCL 25 MG TABLET PO ×2 (12:10→17:52)
[2023-04-18 12:29] LABS: Glucose Point of Care 68 mg/dl (65-105)
[2023-04-18 12:40] LABS: Glucose Point of Care 85 mg/dl (65-105)
[2023-04-18 12:52] LABS: Glucose Point of Care 55 mg/dl (65-105)
[2023-04-18] MEDS: DEXTROSE 10% 1,000 ML 125 ML IV CONT ×2 (13:12→21:25)
[2023-04-18 14:10] LABS: Glucose Point of Care 72 mg/dl (65-105)
[2023-04-18 15:17] LABS: Glucose Point of Care 72 mg/dl (65-105)
[2023-04-18 16:18] LABS: Glucose Point of Care 76 mg/dl (65-105)
[2023-04-18 17:55] LABS: Glucose Point of Care 82 mg/dl (65-105)
[2023-04-18 19:56] LABS: Glucose Point of Care 68 mg/dl (65-105)
[2023-04-18 20:00] LABS: Glucose Point of Care 57 mg/dl (65-105)
[2023-04-18 21:29] LABS: Glucose Point of Care 133 mg/dl (65-105)
[2023-04-18 21:29] LABS: Glucose Point of Care 86 mg/dl (65-105)
[2023-04-18 22:05] LABS: Glucose Point of Care 66 mg/dl (65-105)
[2023-04-18 22:39] LABS: Glucose Point of Care 86 mg/dl (65-105)
[2023-04-18 23:41] LABS: Glucose Point of Care 63 mg/dl (65-105)
[2023-04-18 23:41] LABS: Glucose Point of Care 169 mg/dl (65-105)
[2023-04-19] VITALS (27 sets, daily range): BP systolic 141–191; BP diastolic 65–98; PULSE 83–102; RESP 16–20; TEMP 36–36.9; O2SAT 96–99
[2023-04-19 00:12] LABS: Glucose Point of Care 147 mg/dl (65-105)
[2023-04-19 01:07] LABS: Glucose Point of Care 112 mg/dl (65-105)
[2023-04-19 02:12] LABS: Glucose Point of Care 87 mg/dl (65-105)
[2023-04-19] MEDS: DEXTROSE 50% 25 GM/50 ML SYRINGE IV PUSH (03:04)
[2023-04-19 03:08] LABS: Glucose Point of Care 73 mg/dl (65-105)
[2023-04-19 04:04] LABS: Glucose Point of Care 118 mg/dl (65-105)
[2023-04-19 05:04] LABS: Glucose Point of Care 98 mg/dl (65-105)
[2023-04-19] MEDS: DEXTROSE 10% 1,000 ML 125 ML IV CONT ×2 (05:25→13:58)
[2023-04-19 06:08] LABS: Glucose Point of Care 72 mg/dl (65-105)
[2023-04-19 06:56] LABS: Glucose Point of Care 76 mg/dl (65-105)
[2023-04-19 07:03] LABS: Basophils Absolute Auto 0.1 K/mm3 (0.0-0.1); Basophils Percent Auto 0.5 % (0.2-1.2); Eosinophils Absolute Auto 0.4 K/mm3 (0-0.3); Eosinophils Percent Auto 3.7 % (0-4.4); Hematocrit 25.7 % (37.0-47.0); Hemoglobin 7.7 g/dL (12.0-15.0); Immature Granulocyte Absolute 0.03 K/mm3 (0.00-0.031); Immature Granulocyte Percent A 0.3 % (0-0.5); Lymphocytes Absolute Auto 1.82 K/mm3 (0.9-3.2); Lymphocytes Percent Auto 17.9 % (18.3-44.2); Mean Corpuscular Hemoglobin 29.1 pg (26-34); Mean Platelet Volume 9.3 fl (7.4-10.4); Monocytes Absolute Auto 1.2 K/mm3 (0.1-0.6); Monocytes Percent Auto 11.8 % (2.6-8.5); Neutrophils Absolute Auto 6.7 K/mm3 (1.3-6.7); Neutrophils Percent Auto 65.8 % (45.5-73.1); Platelet Count Result 312 k/mm3 (150-375); Red Blood Count 2.65 M/mm3 (4.2-5.4); Red Cell Distribution Width 15.5 % (11.5-14.5); White Blood Count 10.2 K/mm3 (4.5-10.0)
[2023-04-19 07:15] LABS: Alanine Aminotransferase 15 U/L (6-35); Albumin Level 3.2 g/dL (3.5-5.1); Alkaline Phosphatase 62 U/L (38-126); Anion Gap 6 mmol/L (8-16); Aspartate Amino Transferase 23 U/L (14-36); Bilirubin,Total 0.5 mg/dL (0.2-1.3); Blood Urea Nitrogen 23 mg/dL (7-17); Calcium 9.4 mg/dL (8.4-10.2); Carbon Dioxide 28 mmol/L (22-30); Chloride 99 mmol/L (98-107); Estimated CRCL calculation 10 ml/min; Estimated Glomerular Filt Rate 8; Glucose 85 mg/dL (65-110); Phosphorus 3.9 mg/dL (2.5-4.5); Potassium 3.5 mmol/L (3.4-5.0); Sodium 133 mmol/L (137-145)
[2023-04-19 07:51] LABS: Hepatitis B Surface Antigen Negative (Negative)
[2023-04-19 08:05] LABS: Glucose Point of Care 86 mg/dl (65-105)
[2023-04-19 08:06] LABS: Hepatitis B Surface Anti Res Negative
[2023-04-19] MEDS: SODIUM BICARBONATE TAB 650 MG TABLET PO (08:32)
[2023-04-19] MEDS: VENLAFAXINE HCL XR 75 MG CAP.ER.24H 150 MG PO (08:32)
[2023-04-19] MEDS: ROSUVASTATIN 10 MG TABLET 20 MG PO (08:32)
[2023-04-19] MEDS: buPROPion HCL XL (24 HR) 150 MG TABCR 300 MG PO (08:32)
--- NOTE | 2023-04-19 08:35 | PC.NURSE ---
Pt to dialysis via bed. D10 infusing
[2023-04-19 08:36] LABS: Glucose Point of Care 83 mg/dl (65-105)
--- NOTE | 2023-04-19 09:10 | PM.IMPN ---
Progress Note: A&P Assessment and Plan (1) Hypoglycemia: Code(s): E16.2 - Hypoglycemia, unspecified Status: Acute Assessment and Plan: Patient presents with confusion due to severe hypoglycemia due to metformin and glimepiride in the setting of ESRD. She was hospitalized here 03/30-04/15 and was off these medications but were restarted at discharge. She took Amaryl 2mg BID for 2 days prior to admission resulting in the hypoglycemia. Patient started on D5 but advanced to D10 at 100mL/hr. Glucose was soft but stable intially but D10 increased to 125mL/hr due to persistent hypoglycemia. She is receiving doses of Dextrose overnight. Will continue q.1 hour Accu-Cheks until the patient's glucoses are more stable. Given that the patient's hemoglobin A1c was 5.6 prior to her requiring hemodialysis she will not need to be continued on any hypoglycemic agents. It may take a few days for her to clear Amaryl. She is mildly confused when waking her up - repeat glucose ordered. (2) Type 2 diabetes mellitus with diabetic chronic kidney disease: Code(s): E11.22 - Type 2 diabetes mellitus with diabetic chronic kidney disease Status: Acute Assessment and Plan: A1c 5.6. As above. Wean off D10 wean able. (3) Hypertension: Qualifiers: Hypertension type: secondary to other renal disorders Qualified Code(s): I15.1 - Hypertension secondary to other renal disorders; N28.89 - Other specified disorders of kidney and ureter Code(s): I10 - Essential (primary) hypertension Status: Chronic Assessment and Plan: Patient's blood pressure was reviewed on 04/19 Blood pressure stable. We have resumed hydralazine, Verapamil and Labetalol. She was not on lisnopril last admission but added at discharge. Will continue to follow. Continue current medical regiment; resume lisinopril if BP requires (4) End-stage renal disease on hemodialysis: Code(s): N18.6 - End stage renal disease; Z99.2 - Dependence on renal dialysis Status: Acute Assessment and Plan: Patient is euvolemic clinically. She has hemodialysis Tuesday- -Tuesday. She is on 125mL/hr of IV fluids so need to watch fluid status carefully. Wean off IV fluids as glucose tolerates. Nephrology consulted and appreciate their input (5) Anemia: Code(s): D64.9 - Anemia, unspecified Status: Acute Assessment and Plan: Hemoglobin dropped to 7.7 today. This is probably dilutional from the IV fluids. She does have chronic anemia related to her end-stage renal disease. She is on EPO. No b12 or iron studies on the chart. Continue to monitor H&H. Transfuse as necessary. Check baseline anemia studies. Subjective Date/time seen: 04/19/23 09:10 Interval history: 62yo female with ESRD, DM and HTN here for hypoglycemia. She had a 'rough nite' last night due to frequent glucose checks and glucose dropping. She did receive dextrose 3x overnight. She is eating well. No chest pain or shortness of breath. She is currently undergoing hemodialysis. Exam Narrative: AF 98.4 148/70 90 20 96% ra Gen - NARD currently undergoing HD Chest - CTA bilaterally, nml RR. Tunneled HD catheter accessed in the right upper chest CV - RRR S1/S2.Tele showing no significant dysrhythmias Abd - Soft, obese, NT, Positive BS Ext - No pedal edema Psych - patient was awoken from sleep and she was confused momentarily. she quickly became oriented. Skin - Warm and dry Objective Data Vital Signs Vital Signs: Vital Signs - 24 hr 04/18/23 10:00 04/18/23 12:00 04/18/23 12:00 Temperature 98.8 F Pulse Rate 90 76 76 Respiratory Rate 14 Blood Pressure 114/55 L Pulse Oximetry 96 Oxygen Delivery 04/18/23 12:00 04/18/23 16:00 04/18/23 14:00 Temperature 98.9 F Pulse Rate 89 86 Respiratory Rate 14 Blood Pressure 144/62 H Pulse Oximetry 99 Oxygen Delivery Room Air 04/18/23 16:00 04/18/23 16
[2023-04-19 09:26] LABS: Glucose Point of Care 106 mg/dl (65-105)
[2023-04-19 10:05] LABS: Glucose Point of Care 109 mg/dl (65-105)
--- NOTE | 2023-04-19 10:10 | P.PNNP_ITS ---
Progress Note: A&P Assessment and Plan (1) SAEID (acute kidney injury): Code(s): N17.9 - Acute kidney failure, unspecified Status: Acute Assessment and Plan: * presumably due to rhabdomyolysis + prerenal factors leading to ATN * previous evaluation noted: * renal ultrasound okay * urine electrolytes non-prerenal * no evidence of infection * negative serologies * good urine output but renal function/creatinine rises/worsens in-between dialysis treatments * continue T/T/S outpatient dialysis schedule * follow trend of labs for possible renal recovery (2) Stage 3b chronic kidney disease: Code(s): N18.32 - Chronic kidney disease, stage 3b Status: Chronic Assessment and Plan: * baseline creatinine runs ~ 1.6 - 1.9mg/dl * based on outpatient evaluation, thought to be due to diabetes, hypertension, and possibly vascular disease (3) Hypoglycemia: Code(s): E16.2 - Hypoglycemia, unspecified Status: Acute Assessment and Plan: * as noted on presentation * presumably secondary to medications (metformin + glimepiride) * was not taking these medications during last/recent hospitalization * however, these meds were continued on discharge * on dextrose IVFs + IV pushes of dextrose * follow accu-checks * awaiting clearance of oral hypoglycemics * dialysis may help with this (4) Anemia: Code(s): D64.9 - Anemia, unspecified Status: Acute Assessment and Plan: * presumably related to SAEID and CKD * Epogen with HD * follow trend of H/H (5) Hypertension: Qualifiers: Hypertension type: secondary to other renal disorders Qualified Code(s): I15.1 - Hypertension secondary to other renal disorders; N28.89 - Other specified disorders of kidney and ureter Code(s): I10 - Essential (primary) hypertension Status: Chronic Assessment and Plan: * reasonable control at this time * continue current medications * follow trend of hemodynamics (6) Type 2 diabetes mellitus with diabetic chronic kidney disease: Code(s): E11.22 - Type 2 diabetes mellitus with diabetic chronic kidney disease Status: Chronic Assessment and Plan: * reasonable control by last A1c * glycemic control per hospitalists * see #3 Will continue to follow. Subjective Date/time seen: 04/19/23 10:10 Interval history: Follow-up for acute kidney injury on chronic kidney disease requiring hemodialysis. Tolerated dialysis treatment at the time of my visit (seen on HD at 10:00AM); ongoing issues with hypoglycemia overnight requiring IV pushes of IV dextrose; otherwise, no apparent distress noted. Exam Narrative: General: WD/WN AA female in NAD Heart: normal S1 and S2; no rub Lungs: clear to auscultation Abdomen: soft, nontender, nondistended, positive bowel sounds Extremities: no cyanosis or clubbing; no edema Skin: warm and dry Objective Data Vital Signs Vital Signs: Vital Signs Temp Pulse Resp BP Pulse Ox O2 Del Method 04/19/23 10:00 88 04/19/23 08:00 90 04/19/23 08:00 96 Room Air 04/19/23 08:00 98.4 F 90 20 148/70 H 96 04/19/23 06:00 88 04/19/23 04:00 88 04/19/23 04:00 Room Air 04/19/23 03:16 97.6 F 87 20 147/69 H 98 04/19/23 02:00 92
--- NOTE | 2023-04-19 10:10 | PM.PNNEP ---
Progress Note: A&P Assessment and Plan (1) SAEID (acute kidney injury): Code(s): N17.9 - Acute kidney failure, unspecified Status: Acute Assessment and Plan: presumably due to rhabdomyolysis + prerenal factors leading to ATN previous evaluation noted: renal ultrasound okay urine electrolytes non-prerenal no evidence of infection negative serologies good urine output but renal function/creatinine rises/worsens in-between dialysis treatments continue T/T/S outpatient dialysis schedule follow trend of labs for possible renal recovery (2) Stage 3b chronic kidney disease: Code(s): N18.32 - Chronic kidney disease, stage 3b Status: Chronic Assessment and Plan: baseline creatinine runs ~ 1.6 - 1.9mg/dl based on outpatient evaluation, thought to be due to diabetes, hypertension, and possibly vascular disease (3) Hypoglycemia: Code(s): E16.2 - Hypoglycemia, unspecified Status: Acute Assessment and Plan: as noted on presentation presumably secondary to medications (metformin + glimepiride) was not taking these medications during last/recent hospitalization however, these meds were continued on discharge on dextrose IVFs + IV pushes of dextrose follow accu-checks awaiting clearance of oral hypoglycemics dialysis may help with this (4) Anemia: Code(s): D64.9 - Anemia, unspecified Status: Acute Assessment and Plan: presumably related to SAEID and CKD Epogen with HD follow trend of H/H (5) Hypertension: Qualifiers: Hypertension type: secondary to other renal disorders Qualified Code(s): I15.1 - Hypertension secondary to other renal disorders; N28.89 - Other specified disorders of kidney and ureter Code(s): I10 - Essential (primary) hypertension Status: Chronic Assessment and Plan: reasonable control at this time continue current medications follow trend of hemodynamics (6) Type 2 diabetes mellitus with diabetic chronic kidney disease: Code(s): E11.22 - Type 2 diabetes mellitus with diabetic chronic kidney disease Status: Chronic Assessment and Plan: reasonable control by last A1c glycemic control per hospitalists see #3 Will continue to follow. Subjective Date/time seen: 04/19/23 10:10 Interval history: Follow-up for acute kidney injury on chronic kidney disease requiring hemodialysis. Tolerated dialysis treatment at the time of my visit (seen on HD at 10:00AM); ongoing issues with hypoglycemia overnight requiring IV pushes of IV dextrose; otherwise, no apparent distress noted. Exam Narrative: General: WD/WN AA female in NAD Heart: normal S1 and S2; no rub Lungs: clear to auscultation Abdomen: soft, nontender, nondistended, positive bowel sounds Extremities: no cyanosis or clubbing; no edema Skin: warm and dry Objective Data Vital Signs Vital Signs: Vital Signs Temp Pulse Resp BP Pulse Ox O2 Del Method 04/19/23 10:00 88 04/19/23 08:00 90 04/19/23 08:00 96 Room Air 04/19/23 08:00 98.4 F 90 20 148/70 H 96 04/19/23 06:00 88 04/19/23 04:00 88 04/19/23 04:00 Room Air 04/19/23 03:16 97.6 F 87 20 147/69 H 98 04/19/23 02:00 92 04/19/23 00:00 Room Air 04/19/23 00:00 88 04/18/23 23:47 97.6 F 88 20 153/71 H 99 04/18/23 22:00 91 04/18/23 20:00 Room Air 04/18/23 20:00 91 04/18/23 20:00 97.7 F 93 20 157/69 H 97 04/18/23 20:03 94 04/18/23 18:00 89 04/18/23 16:00 88 04/18/23 16:00 Room Air 04/18/23 14:00 86 04/18/23 16:00 98.9 F 89 14 144/62 H 99 Intake/Output Intake/Output: Intake & Output 04/16/23 04/17/23 04/18/23 04/19/23 23:59 23:59 23:59 23:59 Intake Total 2930 1240 Output Total 2300 1225 Balance 630 15 Meds/Results Medications: Active Medications Generic N
[2023-04-19] MEDS: EPOETIN ALFA-EPBX 2,000 UNITS/ML VIAL 2000 UNITS IV PUSH (11:28)
[2023-04-19] MEDS: EPOETIN ALFA-EPBX 4,000 UNITS/ML VIAL 8000 UNITS IV PUSH (11:28)
[2023-04-19 11:47] LABS: Glucose Point of Care 112 mg/dl (65-105)
--- NOTE | 2023-04-19 13:05 | PC.NURSE ---
Pt returned from dialysis via bed with D10 infusing. No issues noted
[2023-04-19 13:16] LABS: Glucose Point of Care 103 mg/dl (65-105)
[2023-04-19] MEDS: LABETALOL HCL 100 MG TABLET PO ×2 (13:54→20:38)
[2023-04-19] MEDS: VERAPAMIL HCL ER 240 MG TABLET.ER PO (13:54)
[2023-04-19] MEDS: hydrALAZINE HCL 25 MG TABLET PO ×2 (13:55→16:46)
[2023-04-19 14:27] LABS: Glucose Point of Care 126 mg/dl (65-105)
[2023-04-19 16:27] LABS: Glucose Point of Care 146 mg/dl (65-105)
[2023-04-19 18:09] LABS: Glucose Point of Care 181 mg/dl (65-105)
[2023-04-19 20:01] LABS: Glucose Point of Care 197 mg/dl (65-105)
[2023-04-19] MEDS: HEPARIN SODIUM 5,000 UNITS/ML VIAL 5000 UNITS SUB-Q (20:38)
[2023-04-20] VITALS (7 sets, daily range): BP systolic 137–180; BP diastolic 55–75; PULSE 66–98; RESP 16–20; TEMP 36.5–36.6; O2SAT 94–100
[2023-04-20 00:23] LABS: Glucose Point of Care 84 mg/dl (65-105)
[2023-04-20] MEDS: DEXTROSE 10% 1,000 ML 75 ML IV CONT (02:00)
[2023-04-20 04:20] LABS: Glucose Point of Care 102 mg/dl (65-105)
[2023-04-20 05:18] LABS: Hematocrit 25.6 % (37.0-47.0); Hemoglobin 7.8 g/dL (12.0-15.0); Mean Corpuscular HGB Conc 30.5 g/dl (32-36); Mean Corpuscular Hemoglobin 29.7 pg (26-34); Mean Corpuscular Volume 97.3 fl (80-100); Mean Platelet Volume 9.6 fl (7.4-10.4); Platelet Count Result 242 k/mm3 (150-375); Red Blood Count 2.63 M/mm3 (4.2-5.4); Red Cell Distribution Width 15.6 % (11.5-14.5); White Blood Count 7.8 K/mm3 (4.5-10.0)
[2023-04-20 05:36] LABS: Albumin Level 3.1 g/dL (3.5-5.1); Anion Gap 2 mmol/L (8-16); Blood Urea Nitrogen 13 mg/dL (7-17); Calcium 9.4 mg/dL (8.4-10.2); Carbon Dioxide 30 mmol/L (22-30); Chloride 106 mmol/L (98-107); Estimated CRCL calculation 16 ml/min; Estimated Glomerular Filt Rate 13; Glucose 101 mg/dL (65-110); Phosphorus 3.4 mg/dL (2.5-4.5); Sodium 138 mmol/L (137-145)
[2023-04-20 05:48] LABS: Iron 51 ug/dL (37-170)
[2023-04-20 05:58] LABS: Percent Iron Saturation 22 % (20-50)
[2023-04-20 06:39] LABS: Folic Acid 3.4 ng/mL (2.76->20)
[2023-04-20] MEDS: buPROPion HCL XL (24 HR) 150 MG TABCR 300 MG PO (08:42)
[2023-04-20] MEDS: LABETALOL HCL 100 MG TABLET PO (08:42)
[2023-04-20] MEDS: ROSUVASTATIN 20 MG TABLET PO (08:43)
[2023-04-20] MEDS: VENLAFAXINE HCL XR 75 MG CAP.ER.24H 150 MG PO (08:43)
[2023-04-20] MEDS: hydrALAZINE HCL 25 MG TABLET PO (08:43)
[2023-04-20] MEDS: HEPARIN SODIUM 5,000 UNITS/ML VIAL 5000 UNITS SUB-Q (08:43)
[2023-04-20] MEDS: VERAPAMIL HCL ER 240 MG TABLET.ER PO (08:43)
[2023-04-20 11:37] LABS: Glucose Point of Care 119 mg/dl (65-105)
[2023-04-20 12:15] LABS: Hemoglobin A1C 5.4 % (<5.7)
--- NOTE | 2023-04-20 12:34 | PM.PNNEP ---
Progress Note: A&P Assessment and Plan (1) SAEID (acute kidney injury): Code(s): N17.9 - Acute kidney failure, unspecified Status: Acute Assessment and Plan: presumably due to rhabdomyolysis + prerenal factors leading to ATN previous evaluation noted: renal ultrasound okay urine electrolytes non-prerenal no evidence of infection negative serologies good urine output but renal function/creatinine rises/worsens in-between dialysis treatments continue T/T/S outpatient dialysis schedule follow trend of labs for possible renal recovery (2) Stage 3b chronic kidney disease: Code(s): N18.32 - Chronic kidney disease, stage 3b Status: Chronic Assessment and Plan: baseline creatinine runs ~ 1.6 - 1.9mg/dl based on outpatient evaluation, thought to be due to diabetes, hypertension, and possibly vascular disease (3) Hypoglycemia: Code(s): E16.2 - Hypoglycemia, unspecified Status: Acute Assessment and Plan: as noted on presentation presumably secondary to medications (metformin + glimepiride) was not taking these medications during last/recent hospitalization however, these meds were continued on discharge s/p dextrose IVFs + IV pushes of dextrose follow accu-checks (4) Anemia: Code(s): D64.9 - Anemia, unspecified Status: Acute Assessment and Plan: presumably related to SAEID and CKD Epogen with HD follow trend of H/H (5) Hypertension: Qualifiers: Hypertension type: secondary to other renal disorders Qualified Code(s): I15.1 - Hypertension secondary to other renal disorders; N28.89 - Other specified disorders of kidney and ureter Code(s): I10 - Essential (primary) hypertension Status: Chronic Assessment and Plan: reasonable control at this time continue current medications follow trend of hemodynamics (6) Type 2 diabetes mellitus with diabetic chronic kidney disease: Code(s): E11.22 - Type 2 diabetes mellitus with diabetic chronic kidney disease Status: Chronic Assessment and Plan: reasonable control by last A1c glycemic control per hospitalists see #3 Will continue to follow. Subjective Date/time seen: 04/20/23 12:34 Interval history: Follow-up for acute kidney injury on chronic kidney disease requiring hemodialysis. Tolerated dialysis treatment yesterday without any issues or problems; blood sugars appear to be relatively stable off dextrose IVFs, no apparent issues/events overnight or earlier this AM. Exam Narrative: General: WD/WN AA female in NAD Heart: normal S1 and S2; no rub Lungs: clear to auscultation Abdomen: soft, nontender, nondistended, positive bowel sounds Extremities: no cyanosis or clubbing; no edema Skin: warm and intact Objective Data Vital Signs Vital Signs: Vital Signs Temp Pulse Resp BP Pulse Ox O2 Del Method 04/20/23 10:00 66 04/20/23 08:00 91 04/20/23 08:00 94 Room Air 04/20/23 08:42 94 04/20/23 08:00 98 F 91 16 180/55 H 100 04/20/23 06:00 91 04/20/23 04:00 Room Air 04/20/23 04:00 96 04/20/23 04:00 97.7 F 98 18 137/67 98 04/20/23 02:00 94 04/20/23 00:00 93 04/20/23 00:00 97.9 F 94 20 148/75 H 100 04/20/23 00:00 Room Air 04/19/23 20:00 Room Air 04/19/23 22:00 95 04/19/23 20:00 97 04/19/23 20:38 99 04/19/23 20:00 97 F L 100 20 160/67 H 99 04/19/23 18:00 102 H 04/19/23 16:00 96 04/19/23 16:00 99 Room Air 04/19/23 16:00 98.1 F 92 16 141/65 H 99 Intake/Output Intake/Output: Intake & Output 04/17/23 04/18/23 04/19/23 04/20/23 23:59 23:59 23:59 23:59 Intake Total 2930 2720 860 Output Total 2300 2075 2350 Balance 630 871 -6728 Meds/Results Medications: Active Medications Generic Name Dose Route Start Last Admin Trade Name Freq PRN Re
--- NOTE | 2023-04-20 12:34 | P.PNNP_ITS ---
Progress Note: A&P Assessment and Plan (1) SAEID (acute kidney injury): Code(s): N17.9 - Acute kidney failure, unspecified Status: Acute Assessment and Plan: * presumably due to rhabdomyolysis + prerenal factors leading to ATN * previous evaluation noted: * renal ultrasound okay * urine electrolytes non-prerenal * no evidence of infection * negative serologies * good urine output but renal function/creatinine rises/worsens in-between dialysis treatments * continue T/T/S outpatient dialysis schedule * follow trend of labs for possible renal recovery (2) Stage 3b chronic kidney disease: Code(s): N18.32 - Chronic kidney disease, stage 3b Status: Chronic Assessment and Plan: * baseline creatinine runs ~ 1.6 - 1.9mg/dl * based on outpatient evaluation, thought to be due to diabetes, hypertension, and possibly vascular disease (3) Hypoglycemia: Code(s): E16.2 - Hypoglycemia, unspecified Status: Acute Assessment and Plan: * as noted on presentation * presumably secondary to medications (metformin + glimepiride) * was not taking these medications during last/recent hospitalization * however, these meds were continued on discharge * s/p dextrose IVFs + IV pushes of dextrose * follow accu-checks (4) Anemia: Code(s): D64.9 - Anemia, unspecified Status: Acute Assessment and Plan: * presumably related to SAEID and CKD * Epogen with HD * follow trend of H/H (5) Hypertension: Qualifiers: Hypertension type: secondary to other renal disorders Qualified Code(s): I15.1 - Hypertension secondary to other renal disorders; N28.89 - Other specified disorders of kidney and ureter Code(s): I10 - Essential (primary) hypertension Status: Chronic Assessment and Plan: * reasonable control at this time * continue current medications * follow trend of hemodynamics (6) Type 2 diabetes mellitus with diabetic chronic kidney disease: Code(s): E11.22 - Type 2 diabetes mellitus with diabetic chronic kidney disease Status: Chronic Assessment and Plan: * reasonable control by last A1c * glycemic control per hospitalists * see #3 Will continue to follow. Subjective Date/time seen: 04/20/23 12:34 Interval history: Follow-up for acute kidney injury on chronic kidney disease requiring hemodialysis. Tolerated dialysis treatment yesterday without any issues or problems; blood sugars appear to be relatively stable off dextrose IVFs, no apparent issues/events overnight or earlier this AM. Exam Narrative: General: WD/WN AA female in NAD Heart: normal S1 and S2; no rub Lungs: clear to auscultation Abdomen: soft, nontender, nondistended, positive bowel sounds Extremities: no cyanosis or clubbing; no edema Skin: warm and intact Objective Data Vital Signs Vital Signs: Vital Signs Temp Pulse Resp BP Pulse Ox O2 Del Method 04/20/23 10:00 66 04/20/23 08:00 91 04/20/23 08:00 94 Room Air 04/20/23 08:42 94 04/20/23 08:00 98 F 91 16 180/55 H 100 04/20/23 06:00 91 04/20/23 04:00 Room Air 04/20/23 04:00 96 04/20/23 04:00 97.7 F 98 18 137/67 98 04/20/23 02:00 94 04/20/23 00:00 93 04/20/23 00:0
[2023-04-20 12:45] LABS: Glucose Point of Care 181 mg/dl (65-105)
[2023-04-20 14:15] LABS: Glucose Point of Care 158 mg/dl (65-105)
--- NOTE | 2023-04-20 15:11 | PM.DS ---
DS: Admitting Diagnosis Discharge Date 04/20/23 Admitting Diagnosis hypoglycemia DS: Discharge Diagnosis Discharge Diagnosis (1) Hypoglycemia: Code(s): E16.2 - Hypoglycemia, unspecified Status: Acute Assessment and Plan: Patient presents with confusion due to severe hypoglycemia due to metformin and glimepiride in the setting of ESRD. She was hospitalized here 03/30-04/15 and was off these medications but were restarted at discharge. She took Amaryl 2mg BID for 2 days prior to admission resulting in the hypoglycemia. Patient started on D5 but advanced to D10 at 100mL/hr. Glucose was soft but stable intially but D10 increased to 125mL/hr due to persistent hypoglycemia. She is receiving doses of Dextrose overnight. Will continue q.1 hour Accu-Cheks until the patient's glucoses are more stable. Given that the patient's hemoglobin A1c was 5.6 prior to her requiring hemodialysis she will not need to be continued on any hypoglycemic agents. It may take a few days for her to clear Amaryl. She is mildly confused when waking her up - repeat glucose ordered. (2) Type 2 diabetes mellitus with diabetic chronic kidney disease: Code(s): E11.22 - Type 2 diabetes mellitus with diabetic chronic kidney disease Status: Chronic Assessment and Plan: A1c 5.6. As above. Wean off D10 wean able. (3) Hypertension: Qualifiers: Hypertension type: secondary to other renal disorders Qualified Code(s): I15.1 - Hypertension secondary to other renal disorders; N28.89 - Other specified disorders of kidney and ureter Code(s): I10 - Essential (primary) hypertension Status: Chronic Assessment and Plan: Patient's blood pressure was reviewed on 04/19 Blood pressure stable. We have resumed hydralazine, Verapamil and Labetalol. She was not on lisnopril last admission but added at discharge. Will continue to follow. Continue current medical regiment; resume lisinopril if BP requires (4) End-stage renal disease on hemodialysis: Code(s): N18.6 - End stage renal disease; Z99.2 - Dependence on renal dialysis Status: Acute Assessment and Plan: Patient is euvolemic clinically. She has hemodialysis Tuesday- -Tuesday. She is on 125mL/hr of IV fluids so need to watch fluid status carefully. Wean off IV fluids as glucose tolerates. Nephrology consulted and appreciate their input (5) Anemia: Code(s): D64.9 - Anemia, unspecified Status: Acute Assessment and Plan: Hemoglobin dropped to 7.7 today. This is probably dilutional from the IV fluids. She does have chronic anemia related to her end-stage renal disease. She is on EPO. No b12 or iron studies on the chart. Continue to monitor H&H. Transfuse as necessary. Check baseline anemia studies. DS: Summary Hospital Course Hospital Course: 62yo female with ESRD, DM and HTN here for hypoglycemia. Patient was quite hypoglycemic after being on sulfonylureas. She required D10 administration for awhile. This able to be weaned off on her blood sugars remained stable. A1c was quite low, patient was discharged on no oral anti diabetic medications. Please see above and med rec for details. Time Spent with Patient Time attestation: Total time spent providing and/or coordinating discharge services: Exam Narrative: AF 98.4 148/70 90 20 96% ra Gen - NARD currently undergoing HD Chest - CTA bilaterally, nml RR. Tunneled HD catheter accessed in the right upper chest CV - RRR S1/S2.Tele showing no significant dysrhythmias Abd - Soft, obese, NT, Positive BS Ext - No pedal edema Psych - patient was awoken from sleep and she was confused momentarily. she quickly became oriented. Skin - Warm and dry DS: Data Data Completed and Pending Labs on day of discharge: Labs from last 24 hours 04/20/23 04/20/23 04/20/23 14:11 12:23 07:59 WBC RBC Hgb Hct MCV MCH MCHC RDW Plt
--- NOTE | 2023-04-25 14:19 | PC.NURSE ---
Received call from pt stating her fasting BS was 203. She states she is to keep it under 200. Spoke to Dr. Matthews regarding pt BS. Called and spoke with pt regarding keeping her BS below 200. Instructed pt that this is a usp goal for control. Keep following diet, take meds, follow up with Dr. Garza, and to call PCP as needed. Pt states agreement and understanding.
== END 2023-04-20 15:49 | disposition home or self-care (01) | DRG 639 ==
LOC: ANHED 03:10 → ANHIMU 03:49
PROVIDERS: Internal Medicine; Internal Medicine Nephrology; Admitting Provider Internal Medicine; Emergency Provider Physician Assistant; PCP Family Medicine Adolescent Medicine; Visit Provider Student in an Organized Health Care Education/Training Program
DX: E11.649 Type 2 diabetes mellitus with hypoglycemia without coma (principal); I12.9 Hypertensive chronic kidney disease with stage 1 through stage 4 chronic kidney disease, or unspecified chronic kidney disease; T38.3X5A Adverse effect of insulin and oral hypoglycemic [antidiabetic] drugs, initial encounter; N17.9 Acute kidney failure, unspecified; N18.32 Chronic kidney disease, stage 3b; E11.22 Type 2 diabetes mellitus with diabetic chronic kidney disease; E66.01 Morbid (severe) obesity due to excess calories; F41.9 Anxiety disorder, unspecified; F32.A Depression, unspecified; Z79.84 Long term (current) use of oral hypoglycemic drugs; Z68.39 Body mass index [BMI] 39.0-39.9, adult; Z85.3 Personal history of malignant neoplasm of breast; Z87.891 Personal history of nicotine dependence
CPT/HCPCS: 36415; 71045; 80048; 80053; 80069; 80076; 81001; 82607; 82728; 82746; 82948; 83036; 83540; 83550; 84100; 84443; 85025; 85027; 86706; 87086; 87340; 93005; 96361; 96365; 96366; 96372; 96374; 96375; 96376; 99285; A9270; G0257; G0378; J1610; J1644; J7030; J7042; Q5105

== ENCOUNTER 2024-05-02 17:21 | Inpatient (IN) | payer OTHER, SELFPAY ==
--- NOTE | ~2024-05-02 | US_ITS ---
EXAMINATION: US renal BI DATE: 05/02/2024 20:37 INDICATION: acute kidney injury TECHNIQUE: Multiple grayscale and Doppler ultrasound images of the kidneys were obtained. COMPARISON: 03/31/2023, 01/10/2021, 10/08/2020 FINDINGS: The right kidney measures 8.6 x 4.0 x 4.1 cm. The left kidney measures 6.7 x 4.6 x 4.4 cm. The kidney s demonstrate normal parenchymal echogenicity. There is no hydronephrosis. The bladder is normal. IMPRESSION: The left kidney measures smaller than in prior examinations, which may be an artifact of measurement or represent interval atrophy. Otherwise normal renal sonogram findings. Reviewed, dictated and finalized at location K. IMPRESSION: The left kidney measures smaller than in prior examinations, which may be an ar tifact of measurement or represent interval atrophy. Otherwise normal renal son ogram findings.
--- NOTE | 2024-05-02 16:00 | ADMGEN ---
This patient, Gena Pierre, was admitted to Medical Room 341-01. Patient/family oriented to hospital policies and general routines including ID bracelet, bed and alarms, visiting hours, pain management, procedures, bathroom and other care routines, personal items, smoking policy, room service/diet, and visiting hours. Information on how to activate the Rapid Response Team has been discussed. Patient/Family are encouraged to report perceived risks to care and to ask questions if they do not understand what they are told or what they should do.
--- NOTE | 2024-05-02 18:40 | PM.IMHP ---
H&P: HPI History of Present Illness Date/Time: 05/02/24 17:30 Chief Complaint: Acute kidney injury. Narrative: This is a very pleasant 63-year-old female with history of acute kidney injury related to rhabdomyolysis requiring temporary dialysis starting in March 2023, diet-controlled type 2 diabetes mellitus, hypertension, breast cancer, and anxiety who is being directly admitted from Dr. Colmenares's for further workup after she was found to have evidence of acute kidney injury on labs. The patient provides the following history. She recently vacationed to [facility] and returned 16 days ago. Two days later she developed URI symptoms to include sore throat and fever. Those symptoms improved however she then developed upper abdominal pain with nausea which seemed to be worse after eating. She had a couple episodes of emesis, some loose stools, and her appetite has not been great. She saw her primary care physician and was given a prescription for pantoprazole for suspected gastritis and a right upper quadrant abdominal ultrasound was ordered to rule out cholecystitis which has yet to be done. Today she had a follow-up appointment with Dr. Colmenares and was found to have a markedly elevated creatinine and she is being admitted in this setting for further evaluation. She has no complaints at the time my evaluation and denies current fever, syncope, near syncope, chest pain, shortness of breath, edema, decreased urine output, and dysuria. Review of Systems Review of Systems: 12 systems were reviewed and are negative except for as per HPI. [facility] Past Medical History Medical History (Updated 05/02/24 @ 23:54 by Kika Demarco PA-C) Anemia Anxiety Cancer of right breast (2004) Status post chemotherapy and mastectomy. Depression Diabetic peripheral neuropathy End-stage renal disease on hemodialysis Chronic kidney disease due to hypertension and diabetes with final insult kidneys with severe rhabdomyolysis March 2023. Essential hypertension Normal colonoscopy (07/2011) Obesity (BMI 30-39.9) Primary hyperparathyroidism (11/2020) Type 2 diabetes mellitus Vaginal polyp Vitamin D deficiency Surgical History Surgical History (Updated 05/02/24 @ 23:51 by Kika Demarco PA-C) History of hysteroscopy (2020) History of right mastectomy Family History Family History Mother Family history of lung cancer Hypertension Grandparent Cerebrovascular accident Diabetes mellitus Hypertension Son Family history of cardiovascular disease Heart disease Hypertension Father Unknown family medical history Social History Social History (Updated 05/02/24 @ 23:51 by Kika Demarco PA-C) Social History: Surrogate decision maker: Adry Smith (sister). Code status: Full code. Smoking packs per day: 0.5 Smoking cigarettes per day: 10.0 Years smoked: 20 Smoking pack-years: 10.00 Smoking status: Former smoker Second hand tobacco smoke exposure: Yes Alcohol intake: never Alcohol use details: Very seldom Substance use: never Substance use type: does not use Do You Feel Safe in your Home?: Yes Lack of Transportation: No Lack of Food: Never True Current Housing: I Have Housing Concerned About Future Housing: No Difficulty Paying Gas/Electric Bills: No Difficulty Paying for Meds: No Currently Unemployed: No Education: High School Diploma/GED Difficulty w/ Childcare or Family Care: No Additional living arrangements comments: Lives in [place]. Additional occupation/education comments: Retired. Sexual Orientation (if Verbalized by the Patient): Straight or Heterosexual Spiritual care concerns: No Agree to blood products: Yes Meds Home Medications and Allergies Home Medications Medication Instructions Recorded Confirmed Type carvedilol 12.5 mg tablet 12.5 mg PO Q12H 08/24/23 05/02/24 History sodium b
[2024-05-02 19:20] LABS: CRP < 0.5 mg/dL (<1.0)
[2024-05-02 19:34] LABS: Alanine Aminotransferase 10 U/L (6-35); Albumin Level 2.5 g/dL (3.5-5.1); Alkaline Phosphatase 109 U/L (38-126); Anion Gap 14 mmol/L (4-12); Aspartate Amino Transferase 18 U/L (14-36); Bilirubin,Total 0.6 mg/dL (0.2-1.3); Blood Urea Nitrogen 81 mg/dL (7-17); Calcium 8.5 mg/dL (8.4-10.2); Carbon Dioxide 19 mmol/L (22-30); Chloride 101 mmol/L (98-107); Estimated Glomerular Filt Rate 4; Glucose 120 mg/dL (65-110); Sodium 134 mmol/L (137-145)
--- NOTE | 2024-05-02 20:47 | PC.NURSE ---
Kika aware patient does not have IV access at this time, unable to place IV, patient hard stick, multiple nurses have attempted. Waiting for another nurse to attempt IV.
[2024-05-02 20:57] VITALS: BP 164/78; PULSE 70; RESP 16; TEMP 36.8; O2SAT 100
[2024-05-02 21:13] LABS: Glucose Point of Care 113 mg/dl (65-105)
[2024-05-02 22:21] LABS: Appearance Urine Cloudy (Clear); Bacteria Urine 1+ /hpf; Bilirubin Urine Negative (Negative); Blood Urine 1+ (Negative); Color Urine Yellow (Yellow); Glucose Urine UA 1+ mg/dL (Negative); Ketones Urine 1+ mg/dL (Negative); Leukocyte Esterase Ur Trace LEU/UL (Negative); Nitrate Urine Negative (Negative); Protein Urine 4+ mg/dL (Negative); RBC Urine 0-2 /hpf (0-2); Specific Grav Ur 1.017 (1.001-1.035); Squamous Epithelial Cell Urine Few /hpf (Few); Urobilinogen Urine 0.2 mg/dL (<2.0); WBC Urine 21-50 /hpf (0-3)
[2024-05-02 22:23] LABS: Potassium Urine Random 22.4 meq/L; Sodium Urine Random 46 meq/L
[2024-05-02 23:16] LABS: Eosinophil Urine None Seen % (None Seen); Urine Eos QC 2nd Tech Confirmed
[2024-05-03] VITALS (7 sets, daily range): BP systolic 71–166; BP diastolic 44–89; PULSE 68–79; RESP 16–18; TEMP 36.4–37; O2SAT 100
[2024-05-03 00:04] LABS: Creatine Kinase 97 U/L (30-135)
[2024-05-03 01:04] LABS: Erythrocyte Sedimentation Rate > 140 mm/hr (0-20)
[2024-05-03] MEDS: SODIUM CHLORIDE 0.9% IV 1,000 ML 150 ML IV CONT ×3 (07:25→22:48)
[2024-05-03 09:15] LABS: Hematocrit 29.8 % (37.0-47.0); Hemoglobin 9.3 g/dL (12.0-15.0); Mean Corpuscular HGB Conc 31.2 g/dl (32-36); Mean Corpuscular Hemoglobin 29.2 pg (26-34); Mean Corpuscular Volume 93.4 fl (80-100); Mean Platelet Volume 11.5 fl (7.4-10.4); Platelet Count Result 160 k/mm3 (150-375); Red Blood Count 3.19 M/mm3 (4.2-5.4); Red Cell Distribution Width 13.2 % (11.5-14.5)
[2024-05-03] MEDS: SODIUM BICARBONATE TAB 650 MG TABLET PO ×2 (09:19→17:21)
[2024-05-03 09:28] LABS: Alanine Aminotransferase 10 U/L (6-35); Albumin Level 2.3 g/dL (3.5-5.1); Alkaline Phosphatase 108 U/L (38-126); Anion Gap 13 mmol/L (4-12); Aspartate Amino Transferase 17 U/L (14-36); Bilirubin,Total 0.4 mg/dL (0.2-1.3); Blood Urea Nitrogen 76 mg/dL (7-17); Calcium 8.3 mg/dL (8.4-10.2); Carbon Dioxide 20 mmol/L (22-30); Chloride 100 mmol/L (98-107); Estimated CRCL calculation 5 ml/min; Estimated Glomerular Filt Rate 4; Glucose 80 mg/dL (65-110); Magnesium 1.5 mg/dL (1.6-2.3); Phosphorus 8.1 mg/dL (2.5-4.5); Sodium 133 mmol/L (137-145)
--- NOTE | 2024-05-03 11:38 | PM.CNNEP ---
Assessment and Plan Assessment and plan (1) Acute kidney injury: Code(s): N17.9 - Acute kidney failure, unspecified Status: Acute Assessment and Plan: Gena has acute kidney injury. Her baseline GFR was 11 and the GFR with this high creatinine is only 2. She has significant uremic symptoms. Urinalysis shows blood and white cells. Urine electrolytes are non pre renal. I am not sure her kidneys are good enough to drive her urine sodium down. CPK is normal Renal ultrasound shows small kidneys no hydro. I suspect that the patient had an upper respiratory infection and stopped eating then became dehydrated then developed lower GFR and she stopped eating because of the uremic symptoms which made the GFR drop even more. She does have substantial chronic kidney disease, but I am still hoping that if we give her IV fluids the GFR will improve enough for her to stay off dialysis. (2) Chronic kidney disease, stage 4 (severe): Code(s): N18.4 - Chronic kidney disease, stage 4 (severe) Status: Acute Assessment and Plan: The patient had an acute kidney injury several years ago due to rhabdomyolysis. She had a very slow recovery but eventually got off dialysis a couple of years ago. GFR had been stable in the teens. The patient will need a fistula down the line. Hopefully she can recover enough renal function to enable this to be done before she starts dialysis. (3) RUQ abdominal pain: Code(s): R10.11 - Right upper quadrant pain Status: Acute Assessment and Plan: This may be uremia. Follow this along as we hydrate (4) Diet-controlled type 2 diabetes mellitus: Code(s): E11.9 - Type 2 diabetes mellitus without complications Status: Acute Assessment and Plan: The patient is on Accu-Cheks (5) Secondary hyperparathyroidism, not elsewhere classified: Code(s): E21.1 - Secondary hyperparathyroidism, not elsewhere classified Status: Acute Assessment and Plan: Will check a phosphorus in the (6) Hypertension: Qualifiers: Hypertension type: secondary to other renal disorders Qualified Code(s): I15.1 - Hypertension secondary to other renal disorders; N28.89 - Other specified disorders of kidney and ureter Code(s): I10 - Essential (primary) hypertension Status: Chronic Assessment and Plan: Blood pressure is a little soft. She is off her blood pressure meds (7) Pure hypercholesterolemia, unspecified: Code(s): E78.00 - Pure hypercholesterolemia, unspecified Status: Acute Assessment and Plan: She has not been on a statin History of Present Illness Reason for Consult Consult date: 05/03/24 Chief Complaint Chief complaint: SAEID History of Present Illness Narrative: Gena is a very pleasant 63-year-old lady who has multiple medical problems including chronic kidney disease left over is from an episode of SAEID from rhabdomyolysis in the past, with a baseline GFR of around 15. She also has history of cancer of the breast status post chemo and mastectomy but no evidence of disease, depression, diabetes, hypertension, he vitamin-D deficiency, anxiety, anemia, renal osteodystrophy. The patient has been seeing me in the office since she had her last dialysis which was almost 2 years ago I believe. Her GFR has been in the teens since then. She dropped a little bit last visit in November so I sent her for a fistula but [facility] told her she was not insured with them and that is all that happened. I also asked her to sign up for a kidney transplant. She says that she went to [facility]. After she came back a few weeks ago the patient had URI symptoms. She saw her PCP and they just diagnosed upper respiratory infection and gave her symptomatic treatment. She got better after weak. One week later she started getting epigastric discomfort and nausea. This persisted until today. She visited the PCP 1 more time a couple
--- NOTE | 2024-05-03 15:07 | PM.IMPN ---
Progress Note: A&P Assessment and Plan (1) Acute kidney injury: Code(s): N17.9 - Acute kidney failure, unspecified Status: Acute Assessment and Plan: Patient presented as a direct admit from Dr. Colmenares's office for a creatinine of 12.9. Current creatinine 12.3 Nephrology currently on board Renal ultrasound shows normal kidneys Chronic kidney disease stage 4 Most likely related to dehydration Avoid nephrotoxic medications Renal adjust medications as appropriate (2) Diet-controlled type 2 diabetes mellitus: Code(s): E11.9 - Type 2 diabetes mellitus without complications Status: Acute Assessment and Plan: Glucose is stable at 80 A1c 6.0 05/02/2024 diet controlled Hypoglycemia protocol Trend glucose Adjust therapy as indicated (3) Hypertension: Qualifiers: Hypertension type: secondary to other renal disorders Qualified Code(s): I15.1 - Hypertension secondary to other renal disorders; N28.89 - Other specified disorders of kidney and ureter Code(s): I10 - Essential (primary) hypertension Status: Chronic Assessment and Plan: Current BP 165/77 No home medications Trend Blood pressure Adjust therapy as indicated (4) Chronic kidney disease, stage 4 (severe): Code(s): N18.4 - Chronic kidney disease, stage 4 (severe) Status: Acute Assessment and Plan: Creatinine elevated at 12.90 on arrival is current 12.30 Baseline creatinine 4.0-6.0 Continue to trend labs Nephrology consulted Avoid nephrotoxic medications Time Spent With Patient Time: 58 minutes Time with patient: Greater than 35 minutes Subjective Date/time seen: 05/03/24 15:07 Interval history: 05/02/24 17:30 This is a very pleasant 63-year-old female with history of acute kidney injury related to rhabdomyolysis requiring temporary dialysis starting in March 2023, diet-controlled type 2 diabetes mellitus, hypertension, breast cancer, and anxiety who is being directly admitted from Dr. Colmenares's for further workup after she was found to have evidence of acute kidney injury on labs. The patient provides the following history. She recently vacationed to [facility] and returned 16 days ago. Two days later she developed URI symptoms to include sore throat and fever. Those symptoms improved however she then developed upper abdominal pain with nausea which seemed to be worse after eating. She had a couple episodes of emesis, some loose stools, and her appetite has not been great. She saw her primary care physician and was given a prescription for pantoprazole for suspected gastritis and a right upper quadrant abdominal ultrasound was ordered to rule out cholecystitis which has yet to be done. Today she had a follow-up appointment with Dr. Colmenares and was found to have a markedly elevated creatinine and she is being admitted in this setting for further evaluation. She has no complaints at the time my evaluation and denies current fever, syncope, near syncope, chest pain, shortness of breath, edema, decreased urine output, and dysuria. 05/03/2024 0945 Patient states she is doing well today. She denies any current chest pain, shortness a breath, nausea, vomiting, diarrhea constipation. Creatinine slightly better at 12.30. Review of Systems Review of Systems: 12 systems were reviewed and are negative except for as per HPI. All systems reviewed & are unremarkable except as noted in HPI and below Exam Narrative: General: well-nourished, well-appearing 76-year-old female, sitting up in bed, comfortable, NARD Neuro: awake, alert and oriented x4, speech clear, no focal neuro deficits noted HEENMT: normocephalic, atraumatic, EOMI, sclerae anicteric, moist oral mucosa Respiratory: Clear to auscultation bilaterally without crackles, rhonchi or wheezes, nonlabored breathing Cardio: regular rate, regular rhythm with S1-S2 Abdomen: nondistended, normo
[2024-05-03] MEDS: POTASSIUM CHLORIDE 20 MEQ ER TABLET 40 MEQ PO ×2 (15:44→17:21)
[2024-05-03] MEDS: PANTOPRAZOLE 40 MG TABLET PO (15:44)
[2024-05-03 21:02] LABS: Glucose Point of Care 122 mg/dl (65-105)
[2024-05-04 03:59] LABS: Protein, Total 4.1 g/dL (6.1-8.1)
[2024-05-04 05:00] VITALS: BP 158/76; PULSE 78; RESP 16; TEMP 36.5; O2SAT 100
[2024-05-04] MEDS: SODIUM CHLORIDE 0.9% IV 1,000 ML 150 ML IV CONT (05:04)
[2024-05-04 06:49] LABS: Basophils Percent Auto 0.5 % (0.2-1.2); Eosinophils Absolute Auto 0.3 K/mm3 (0-0.3); Eosinophils Percent Auto 4.3 % (0-4.4); Hemoglobin 9.2 g/dL (12.0-15.0); Immature Granulocyte Absolute 0.02 K/mm3 (0.00-0.031); Immature Granulocyte Percent A 0.3 % (0-0.5); Lymphocytes Absolute Auto 1.63 K/mm3 (0.9-3.2); Lymphocytes Percent Auto 22.1 % (18.3-44.2); Mean Corpuscular HGB Conc 30.7 g/dl (32-36); Mean Corpuscular Hemoglobin 29.2 pg (26-34); Mean Corpuscular Volume 95.2 fl (80-100); Mean Platelet Volume 11.9 fl (7.4-10.4); Monocytes Absolute Auto 0.7 K/mm3 (0.1-0.6); Monocytes Percent Auto 9.9 % (2.6-8.5); Neutrophils Absolute Auto 4.6 K/mm3 (1.3-6.7); Neutrophils Percent Auto 62.9 % (45.5-73.1); Platelet Count Result 141 k/mm3 (150-375); Red Blood Count 3.15 M/mm3 (4.2-5.4); Red Cell Distribution Width 13.2 % (11.5-14.5); White Blood Count 7.4 K/mm3 (4.5-10.0)
[2024-05-04 06:54] LABS: Alanine Aminotransferase 9 U/L (6-35); Albumin Level 2.1 g/dL (3.5-5.1); Alkaline Phosphatase 95 U/L (38-126); Anion Gap 10 mmol/L (4-12); Aspartate Amino Transferase 18 U/L (14-36); Bilirubin,Total 0.3 mg/dL (0.2-1.3); Blood Urea Nitrogen 66 mg/dL (7-17); Carbon Dioxide 15 mmol/L (22-30); Chloride 108 mmol/L (98-107); Estimated CRCL calculation 6 ml/min; Estimated Glomerular Filt Rate 5; Glucose 75 mg/dL (65-110); Magnesium 1.6 mg/dL (1.6-2.3); Phosphorus 6.7 mg/dL (2.5-4.5); Sodium 133 mmol/L (137-145)
[2024-05-04 08:47] LABS: Glucose Point of Care 75 mg/dl (65-105)
[2024-05-04] MEDS: SODIUM BICARBONATE TAB 650 MG TABLET PO ×2 (09:27→16:57)
[2024-05-04] MEDS: PANTOPRAZOLE 40 MG TABLET PO (09:27)
[2024-05-04] MEDS: VENLAFAXINE HCL XR 75 MG CAP.ER.24H 150 MG PO (09:27)
--- NOTE | 2024-05-04 10:29 | PM.PNNEP ---
Progress Note: A&P Assessment and Plan (1) Acute kidney injury: Code(s): N17.9 - Acute kidney failure, unspecified Status: Acute Assessment and Plan: Gena has acute kidney injury. Her baseline GFR was 11 and the GFR with this high creatinine is only 2. She has significant uremic symptoms. Urinalysis shows blood and white cells. Urine electrolytes are non pre renal. I am not sure her kidneys are good enough to drive her urine sodium down. CPK is normal Renal ultrasound shows small kidneys no hydro. SAEID due to dehydration She is getting IV fluids. Her creatinine has come down to from 15 to 12 and now 10. Will continue IV fluids. I encouraged the patient to get up into a chair (2) Chronic kidney disease, stage 4 (severe): Code(s): N18.4 - Chronic kidney disease, stage 4 (severe) Status: Acute Assessment and Plan: The patient had an acute kidney injury several years ago due to rhabdomyolysis. She had a very slow recovery but eventually got off dialysis a couple of years ago. GFR had been stable in the teens. The patient will need a fistula down the line. Hopefully she can recover enough renal function to enable this to be done before she starts dialysis. (3) RUQ abdominal pain: Code(s): R10.11 - Right upper quadrant pain Status: Acute Assessment and Plan: This is much improved (4) Diet-controlled type 2 diabetes mellitus: Code(s): E11.9 - Type 2 diabetes mellitus without complications Status: Acute Assessment and Plan: The patient is on Accu-Cheks (5) Secondary hyperparathyroidism, not elsewhere classified: Code(s): E21.1 - Secondary hyperparathyroidism, not elsewhere classified Status: Acute Assessment and Plan: Phosphorus level is high. Will add calcium acetate. (6) Hypertension: Qualifiers: Hypertension type: secondary to other renal disorders Qualified Code(s): I15.1 - Hypertension secondary to other renal disorders; N28.89 - Other specified disorders of kidney and ureter Code(s): I10 - Essential (primary) hypertension Status: Chronic Assessment and Plan: Blood pressure drop with standing yesterday. Will do another orthostatic test today. (7) Pure hypercholesterolemia, unspecified: Code(s): E78.00 - Pure hypercholesterolemia, unspecified Status: Acute Assessment and Plan: She has not been on a statin Subjective Date/time seen: 05/04/24 10:29 Interval history: Gena is feeling better. belly is better, but KCL did make it a bit worse. Review of Systems Cardiovascular: Cardiovascular: Reports no additional cardiovascular complaints Respiratory: Respiratory: Reports no additional respiratory complaints Gastrointestinal: Gastrointestinal: Reports no additional gastrointestinal complaints Genitourinary: Genitourinary: Reports no additional female genitourinary complaints Exam Narrative: WDWN in NAD skin no rash head ncat lungs clear cor reg no rub abd BS+ nontender and soft ext no edema. Objective Data Vital Signs Vital Signs: Vital Signs - 24 hr 05/03/24 14:00 05/03/24 19:55 05/03/24 20:00 Temperature 98.6 F 97.5 F L Pulse Rate 79 76 Respiratory Rate 18 18 Blood Pressure 165/77 H 166/89 H Pulse Oximetry 100 100 Oxygen Delivery Room Air 05/04/24 05:00 Temperature 97.7 F Pulse Rate 78 Respiratory Rate 16 Blood Pressure 158/76 H Pulse Oximetry 100 Oxygen Delivery Intake/Output Intake/Output: Intake & Output 05/01/24 05/02/24 05/03/24 05/04/24 23:59 23:59 23:59 23:59 Intake Total 225 3680 1380 Output Total 300 1350 800 Balance -75 2330 580 Meds/Results Medications: Active Medications Generic Name Dose Route Start Last Admin Trade Name Freq PRN Reason Stop Dose Admin Acetaminophen 650 mg 05/02/24 18:35 Acetaminophen 325 Mg Tablet PO Q6H PRN Mild Pain (1-3) or Fever
[2024-05-04] MEDS: SODIUM CHLORIDE 0.9% IV 1,000 ML 100 ML IV CONT (11:49)
--- NOTE | 2024-05-04 12:07 | P.PNIM_ITS ---
Progress Note: A&P Assessment and Plan (1) SAEID (acute kidney injury): Code(s): N17.9 - Acute kidney failure, unspecified Status: Acute Plan SAEID on CKD Patient has history of CKD stage IV now patient is at the stage of end-stage renal disease Possible due to dehydration Continue normal saline IV per fitness plan coordinator Renal shown shows kidney atrophy Avoid nephrotoxin medication No sign of fluid overload Metabolic acidosis Sodium bicarbonate 15, trending down Resulting from acute renal failure Increase sodium bicarbonate 650 mg t.i.d. p.o. Hatchery Man on board, follow recommendation Hypokalemia Start potassium chloride 20 mEq b.i.d. p.o. Follow-up BMP Diet-controlled type 2 diabetes mellitus: Code(s): Type 2 diabetes mellitus without complications Status: Acute Assessment and Plan: * Glucose is stable at 80 * A1c 6.0 05/02/2024 * diet controlled * Hypoglycemia protocol * Trend glucose * Adjust therapy as indicated Uncontrolled hypertension No home medication Start amlodipine 10 mg daily p.o. Adjust medication accordingly Subjective Date/time seen: 05/04/24 12:07 Interval history: I saw examined patient today, patient feels better, patient denies short of breath, nausea, abdomen pain, dysuria. Blood pressure stable, afebrile, pulse ox 100% on room air Exam Narrative: GENERAL: Pleasant, in no acute distress. Well-nourished. - EYES: EOMI. Anicteric. - HENT: Moist mucous membranes. - LUNGS: Clear to auscultation bilateral ly, no wheezing, rhonchi, or rales. - CARDIOVASCULAR: Regular rate and rhyth m. No murmur. No JVD. - ABDOMEN: Soft, non-tender and non-dist ended. No palpable masses. - EXTREMITIES: No edema. Peripheral puls es 2+. Non-tender. - NEUROLOGIC: No focal neurological defi cits. CN II-XII grossly intact. - PSYCHIATRIC: Awake, Alert and oriented x 3. Appropriate mood and affect. - SKIN: No rashes or lesions. Warm. - LYMPH: No cervical lymphadenopathy. Objective Data Vital Signs Vital Signs: Vital Signs - 24 hr 05/03/24 14:00 05/03/24 19:55 05/03/24 20:00 Temperature 98.6 F 97.5 F L Pulse Rate 79 76 Respiratory Rate 18 18 Blood Pressure 165/77 H 166/89 H Pulse Oximetry 100 100 Oxygen Delivery Room Air 05/04/24 05:00 Temperature 97.7 F Pulse Rate 78 Respiratory Rate 16 Blood Pressure 158/76 H Pulse Oximetry 100 Oxygen Delivery Intake/Output Intake/Output: Intake & Output 05/01/24 05/02/24 05/03/24 05/04/24 23:59 23:59 23:59 23:59 Intake Total 225 3680 2368.3 Output Total 300 1350 800 Balance -75 2330 1568.3 Meds/Results Medications: Active Medications Generic Name Dose Route Start Last Admin Trade Name Freq PRN Reason Stop Dose Admin
--- NOTE | 2024-05-04 12:07 | PM.IMPN ---
Progress Note: A&P Assessment and Plan (1) SAEID (acute kidney injury): Code(s): N17.9 - Acute kidney failure, unspecified Status: Acute Plan SAEID on CKD Patient has history of CKD stage IV now patient is at the stage of end-stage renal disease Possible due to dehydration Continue normal saline IV per medical unit secretary Renal shown shows kidney atrophy Avoid nephrotoxin medication No sign of fluid overload Metabolic acidosis Sodium bicarbonate 15, trending down Resulting from acute renal failure Increase sodium bicarbonate 650 mg t.i.d. p.o. Sleeve Ironer on board, follow recommendation Hypokalemia Start potassium chloride 20 mEq b.i.d. p.o. Follow-up BMP Diet-controlled type 2 diabetes mellitus: Code(s): Type 2 diabetes mellitus without complications Status: Acute Assessment and Plan: Glucose is stable at 80 A1c 6.0 05/02/2024 diet controlled Hypoglycemia protocol Trend glucose Adjust therapy as indicated Uncontrolled hypertension No home medication Start amlodipine 10 mg daily p.o. Adjust medication accordingly Subjective Date/time seen: 05/04/24 12:07 Interval history: I saw examined patient today, patient feels better, patient denies short of breath, nausea, abdomen pain, dysuria. Blood pressure stable, afebrile, pulse ox 100% on room air Exam Narrative: GENERAL: Pleasant, in no acute distress. Well-nourished. - EYES: EOMI. Anicteric. - HENT: Moist mucous membranes. - LUNGS: Clear to auscultation bilaterally, no wheezing, rhonchi, or rales. - CARDIOVASCULAR: Regular rate and rhythm. No murmur. No JVD. - ABDOMEN: Soft, non-tender and non-distended. No palpable masses. - EXTREMITIES: No edema. Peripheral pulses 2+. Non-tender. - NEUROLOGIC: No focal neurological deficits. CN II-XII grossly intact. - PSYCHIATRIC: Awake, Alert and oriented x 3. Appropriate mood and affect. - SKIN: No rashes or lesions. Warm. - LYMPH: No cervical lymphadenopathy. Objective Data Vital Signs Vital Signs: Vital Signs - 24 hr 05/03/24 14:00 05/03/24 19:55 05/03/24 20:00 Temperature 98.6 F 97.5 F L Pulse Rate 79 76 Respiratory Rate 18 18 Blood Pressure 165/77 H 166/89 H Pulse Oximetry 100 100 Oxygen Delivery Room Air 05/04/24 05:00 Temperature 97.7 F Pulse Rate 78 Respiratory Rate 16 Blood Pressure 158/76 H Pulse Oximetry 100 Oxygen Delivery Intake/Output Intake/Output: Intake & Output 05/01/24 05/02/24 05/03/24 05/04/24 23:59 23:59 23:59 23:59 Intake Total 225 3680 2368.3 Output Total 300 1350 800 Balance -75 2330 1568.3 Meds/Results Medications: Active Medications Generic Name Dose Route Start Last Admin Trade Name Freq PRN Reason Stop Dose Admin Acetaminophen 650 mg 05/02/24 18:35 Acetaminophen 325 Mg Tablet PO Q6H PRN Mild Pain (1-3) or Fever Calcium Acetate 667 mg 05/04/24 13:00 Calcium Acetate 667 Mg Tablet PO TID RAVI Sodium Chloride 1,000 mls @ 100 mls/hr 05/02/24 18:35 05/04/24 11:49 Normal Saline Iv IV CONT 100 mls/hr .Q10H RAVI Administration Pantoprazole Sodium 40 mg 05/03/24 13:10 05/04/24 09:27 Pantoprazole 40 Mg Tablet PO 40 mg QAM RAVI Administration Sodium Bicarbonate 650 mg 05/03/24 09:00 05/04/24 09:27 Sodium Bicarbonate Tab 650 Mg Tablet PO 650 mg BID RAVI Administration Venlafaxine HCl 150 mg 05/04/24 08:00 05/04/24 09:27 Venlafaxine Hcl Xr 75 Mg Cap.Er.24h PO 150 mg DAILY@0800 RAVI Administration Radiology Results: ITS Impressions Renal Ultrasound 05/02/24 20:59 IMPRESSION: The left kidney measures smaller than in prior examinations, which may be an artifact of measurement or represent interval atrophy. Otherwise normal renal sonogram findings. Labs Labs: Laboratory Results - last 24 hr 05/03/24 05/03/24 05/04/24 00:10 19:59 05:26 WBC 7.4 RBC 3.15 L Hgb 9.2 L Hct 30.0 L MCV 95.2
[2024-05-04 12:13] LABS: Glucose Point of Care 189 mg/dl (65-105)
[2024-05-04 12:28] LABS: Anti Streptolysin O Screen <20 IU/mL (<200)
[2024-05-04] MEDS: CALCIUM ACETATE 667 MG TABLET PO ×2 (12:42→16:57)
[2024-05-04 14:14] VITALS: BP 152/79; PULSE 85; RESP 16; TEMP 36.2; O2SAT 100
[2024-05-04 15:08] LABS: Albumin 2.1 g/dL (3.8-4.8); Alpha 1 Globulin 0.2 g/dL (0.2-0.3); Alpha 2 Globulin 0.8 g/dL (0.5-0.9); Beta 1 Globulin 0.2 g/dL (0.4-0.6); Gamma Globulin 0.6 g/dL (0.8-1.7)
--- NOTE | 2024-05-04 17:03 | PC.NURSE ---
Noc Engineer spoke with Dr Castellanos will he was on the floor regarding pts positive orthostatics 05/03/2024. His order for Amlodipine will be decreased. See Mar
[2024-05-04 17:22] LABS: Glucose Point of Care 116 mg/dl (65-105)
[2024-05-04 17:24] VITALS: BP 173/77
[2024-05-04] MEDS: amLODIPine BESYLATE 5 MG TABLET PO (17:26)
[2024-05-04 17:59] LABS: Chloride Rand Ur 30 mmol/L (32-290); Chloride/Creatinine Rand Ur 21 (38-318); Creatinine Random Urine 145 mg/dL (20-275)
[2024-05-04 22:00] VITALS: BP 149/72; PULSE 87; RESP 20; TEMP 36.2; O2SAT 100
[2024-05-05] VITALS (9 sets, daily range): BP systolic 100–172; BP diastolic 57–98; PULSE 78–108; RESP 16–20; TEMP 36.1–36.4; O2SAT 100
[2024-05-05 06:07] LABS: Basophils Percent Auto 0.5 % (0.2-1.2); Eosinophils Absolute Auto 0.5 K/mm3 (0-0.3); Eosinophils Percent Auto 5.4 % (0-4.4); Hematocrit 30.9 % (37.0-47.0); Hemoglobin 9.4 g/dL (12.0-15.0); Immature Granulocyte Absolute 0.03 K/mm3 (0.00-0.031); Immature Granulocyte Percent A 0.4 % (0-0.5); Lymphocytes Absolute Auto 1.84 K/mm3 (0.9-3.2); Lymphocytes Percent Auto 21.9 % (18.3-44.2); Mean Corpuscular HGB Conc 30.4 g/dl (32-36); Mean Corpuscular Hemoglobin 29.1 pg (26-34); Mean Corpuscular Volume 95.7 fl (80-100); Mean Platelet Volume 11.4 fl (7.4-10.4); Monocytes Absolute Auto 0.9 K/mm3 (0.1-0.6); Monocytes Percent Auto 10.9 % (2.6-8.5); Neutrophils Absolute Auto 5.1 K/mm3 (1.3-6.7); Neutrophils Percent Auto 60.9 % (45.5-73.1); Platelet Count Result 149 k/mm3 (150-375); Red Blood Count 3.23 M/mm3 (4.2-5.4); Red Cell Distribution Width 13.2 % (11.5-14.5); White Blood Count 8.4 K/mm3 (4.5-10.0)
[2024-05-05 06:26] LABS: Albumin Level 1.9 g/dL (3.5-5.1); Anion Gap 10 mmol/L (4-12); Blood Urea Nitrogen 59 mg/dL (7-17); Calcium 8.9 mg/dL (8.4-10.2); Carbon Dioxide 16 mmol/L (22-30); Chloride 110 mmol/L (98-107); Estimated CRCL calculation 7 ml/min; Estimated Glomerular Filt Rate 5; Glucose 94 mg/dL (65-110); Phosphorus 6.1 mg/dL (2.5-4.5); Sodium 136 mmol/L (137-145)
[2024-05-05 06:37] LABS: Glucose Point of Care 155 mg/dl (65-105)
[2024-05-05 08:21] LABS: Glucose Point of Care 90 mg/dl (65-105)
[2024-05-05] MEDS: CALCIUM ACETATE 667 MG TABLET PO ×3 (08:44→18:08)
[2024-05-05] MEDS: SODIUM BICARBONATE TAB 650 MG TABLET PO (08:44)
[2024-05-05] MEDS: VENLAFAXINE HCL XR 75 MG CAP.ER.24H 150 MG PO (08:44)
[2024-05-05] MEDS: PANTOPRAZOLE 40 MG TABLET PO (08:44)
--- NOTE | 2024-05-05 09:22 | PM.PNNEP ---
Progress Note: A&P Assessment and Plan (1) Acute kidney injury: Code(s): N17.9 - Acute kidney failure, unspecified Status: Acute Assessment and Plan: Gena has acute kidney injury. Her baseline GFR was 11 and the GFR with this high creatinine is only 2. She has significant uremic symptoms. Urinalysis shows blood and white cells. Urine electrolytes are non pre renal. I am not sure her kidneys are good enough to drive her urine sodium down. CPK is normal Renal ultrasound shows small kidneys no hydro. SAEID due to dehydration She is getting IV fluids. The IV fluids time doubt last evening. Will restart some With a lower bicarb will add a little bicarb to the IV fluids because more saline will just dilute the bicarb. Her creatinine has come down to from 15 to 12 to 10 and now 9.3 Ideally the hope is to get the GFR back up to where it was before. The improvement is starting to plateau however. Hopefully we can at least get the GFR above 7.. Will continue IV fluids. (2) Chronic kidney disease, stage 4 (severe): Code(s): N18.4 - Chronic kidney disease, stage 4 (severe) Status: Acute Assessment and Plan: The patient had an acute kidney injury several years ago due to rhabdomyolysis. She had a very slow recovery but eventually got off dialysis a couple of years ago. GFR had been stable in the teens. The patient will need a fistula down the line. Hopefully she can recover enough renal function to enable this to be done before she starts dialysis. (3) RUQ abdominal pain: Code(s): R10.11 - Right upper quadrant pain Status: Acute Assessment and Plan: This is much improved (4) Diet-controlled type 2 diabetes mellitus: Code(s): E11.9 - Type 2 diabetes mellitus without complications Status: Acute Assessment and Plan: The patient is on Accu-Cheks (5) Secondary hyperparathyroidism, not elsewhere classified: Code(s): E21.1 - Secondary hyperparathyroidism, not elsewhere classified Status: Acute Assessment and Plan: Phosphorus level is 6.1. PhosLo added yesterday (6) Hypertension: Qualifiers: Hypertension type: secondary to other renal disorders Qualified Code(s): I15.1 - Hypertension secondary to other renal disorders; N28.89 - Other specified disorders of kidney and ureter Code(s): I10 - Essential (primary) hypertension Status: Chronic Assessment and Plan: Blood pressure still drops with standing. It started at 153 and dropped to 100 with standing. Will check B12 folate cortisol and SPEP to evaluate this. On amlodipine and with its long half life and minimal effect on the nervous system this seems like a good medicine for her. (7) Pure hypercholesterolemia, unspecified: Code(s): E78.00 - Pure hypercholesterolemia, unspecified Status: Acute Assessment and Plan: She has not been on a statin (8) Erythropoietin deficiency anemia: Code(s): D63.1 - Anemia in chronic kidney disease Status: Acute Assessment and Plan: Will been stable in the 9s Subjective Date/time seen: 05/05/24 09:22 Interval history: Patient slept okay. She is more hungry She denies shortness of breath or swelling Exam Narrative: WDWN in NAD skin no rash head ncat lungs clear cor reg no rub or gallop abd BS+ nontender and soft ext no edema or cyanosis. Objective Data Vital Signs Vital Signs: Vital Signs - 24 hr 05/04/24 14:14 05/04/24 17:24 05/04/24 20:00 Temperature 97.1 F L Pulse Rate 85 Respiratory Rate 16 Blood Pressure 152/79 H 173/77 H Pulse Oximetry 100 Oxygen Delivery Room Air 05/04/24 22:00 05/05/24 06:00 05/05/24 06:00 Temperature 97.2 F L 97.0 F L 97.0 F L Pulse Rate 87 89 89 Respiratory Rate 20 20 20 Blood Pressure 149/72 H 153/78 H 153/78 H Pulse Oximetry 100 100 100 Oxygen Delivery 05/05/24 06:05 05/05/24 06:10 T
--- NOTE | 2024-05-05 09:26 | PM.IMPN ---
Progress Note: A&P Assessment and Plan (1) SAEID (acute kidney injury): Code(s): N17.9 - Acute kidney failure, unspecified Status: Acute Plan SAEID on CKD History of stage IV CKD, kidney function is worse to the level of end-stage of renal disease Possible due to dehydration Continue normal saline IV per dock boss Renal shown shows kidney atrophy Avoid nephrotoxin medication No sign of fluid overload Creatinine is trending down slowly Metabolic acidosis Sodium bicarbonate 15, 05/04 Resulting from acute renal failure Increase sodium bicarbonate 650 mg t.i.d. p.o. Casino Enforcement Agent on board, follow recommendation bicarbonate carbonate is still low, start sodium bicarbonate IV per dock boss Hypokalemia Start potassium chloride 20 mEq b.i.d. p.o. Follow-up BMP Type 2 diabetes Stable Diet controlled Uncontrolled hypertension No home medication Start amlodipine 10 mg daily p.o. Adjust medication accordingly Subjective Date/time seen: 05/05/24 09:26 Interval history: I saw examined patient today, no new issue even over the night,, patient denies short of breath, nausea, abdomen pain, dysuria. Blood pressure stable, afebrile, pulse ox 100% on room air Exam Narrative: GENERAL: Pleasant, in no acute distress. Well-nourished. - EYES: EOMI. Anicteric. - HENT: Moist mucous membranes. - LUNGS: Clear to auscultation bilaterally, no wheezing, rhonchi, or rales. - CARDIOVASCULAR: Regular rate and rhythm. No murmur. No JVD. - ABDOMEN: Soft, non-tender and non-distended. No palpable masses. - EXTREMITIES: No edema. Peripheral pulses 2+. Non-tender. - NEUROLOGIC: No focal neurological deficits. CN II-XII grossly intact. - PSYCHIATRIC: Awake, Alert and oriented x 3. Appropriate mood and affect. - SKIN: No rashes or lesions. Warm. - LYMPH: No cervical lymphadenopathy. Objective Data Vital Signs Vital Signs: Vital Signs - 24 hr 05/04/24 14:14 05/04/24 17:24 05/04/24 20:00 Temperature 97.1 F L Pulse Rate 85 Respiratory Rate 16 Blood Pressure 152/79 H 173/77 H Pulse Oximetry 100 Oxygen Delivery Room Air 05/04/24 22:00 05/05/24 06:00 05/05/24 06:00 Temperature 97.2 F L 97.0 F L 97.0 F L Pulse Rate 87 89 89 Respiratory Rate 20 20 20 Blood Pressure 149/72 H 153/78 H 153/78 H Pulse Oximetry 100 100 100 Oxygen Delivery 05/05/24 06:05 05/05/24 06:10 Temperature 97.6 F 97.3 F L Pulse Rate 98 108 H Respiratory Rate 20 20 Blood Pressure 138/69 100/57 L Pulse Oximetry 100 100 Oxygen Delivery Intake/Output Intake/Output: Intake & Output 05/02/24 05/03/24 05/04/24 05/05/24 23:59 23:59 23:59 23:59 Intake Total 225 3680 2908.3 840 Output Total 300 1350 2600 2000 Balance -75 2330 308.3 -1160 Meds/Results Medications: Active Medications Generic Name Dose Route Start Last Admin Trade Name Freq PRN Reason Stop Dose Admin Acetaminophen 650 mg 05/02/24 18:35 Acetaminophen 325 Mg Tablet PO Q6H PRN Mild Pain (1-3) or Fever Amlodipine Besylate 5 mg 05/05/24 09:00 05/05/24 08:45 Amlodipine Besylate 5 Mg Tablet PO Not Given DAILY [facility] Calcium Acetate 667 mg 05/04/24 13:00 05/05/24 08:44 Calcium Acetate 667 Mg Tablet PO 667 mg TID [facility] Administration Sodium Bicarbonate 75 meq/ 1,075 mls @ 100 mls/hr 05/05/24 09:45 Sodium Chloride IV CONT .[id number] [facility] Miscellaneous Information 1 each 05/05/24 00:01 Iv Bicarb Drip Started. D/C Oral Tablets? XX 06/04/24 00:00 CLARIFY [facility] Pantoprazole Sodium 40 mg 05/03/24 13:10 05/05/24 08:44 Pantoprazole 40 Mg Tablet PO 40 mg QAM RAVI Administration Sodium Bicarbonate 650 mg 05/04/24 17:00 05/05/24 08:44 Sodium Bicarbonate Tab 650 Mg Tablet PO 650 mg TID RAVI Administration Venlafaxine HCl 150 mg 05/04/24 08:00 05/05/24 08:44 Venlafaxine Hcl Xr 75 Mg Cap.Er.24h PO 150 mg DAILY@0800 RAVI Administration Radiology Results: I
[2024-05-05] MEDS: SODIUM BICARBONATE 8.4% 75 MEQ in SODIUM CHLORIDE 0.45% 1,000 ML 100 MEQ IV CONT (10:24)
[2024-05-05] MEDS: POTASSIUM CHLORIDE 20 MEQ ER TABLET 40 MEQ PO (10:25)
[2024-05-05 12:07] LABS: Glucose Point of Care 83 mg/dl (65-105)
--- NOTE | 2024-05-05 13:36 | PC.NURSE ---
Verbal Ok to DC sodium bicarb tablets per Dr Castellanos. Pt is receiving IV Bicarb.
[2024-05-05 16:46] LABS: Glucose Point of Care 123 mg/dl (65-105)
--- NOTE | 2024-05-05 17:48 | PC.NURSE ---
Pt notiefied promotion writer of IV leaking. Two attempts were made to gain new access. Dr Castellanos notified by phone and order was placed for a midline. [place] notified
[2024-05-05] MEDS: POTASSIUM CHLORIDE 20 MEQ PACKET (FOR LIQUID) PO (18:08)
[2024-05-05 18:42] LABS: Creatinine, Random Urine 121 mg/dL (20-275); Total Protein/Creatinine Ratio 6347 mg/g creat (24-184)
[2024-05-06] VITALS (7 sets, daily range): BP systolic 100–150; BP diastolic 65–92; PULSE 80–127; RESP 20; TEMP 36.1–36.4; O2SAT 99–100
[2024-05-06] MEDS: SODIUM BICARBONATE 8.4% 75 MEQ in SODIUM CHLORIDE 0.45% 1,000 ML 100 MEQ IV CONT (03:02)
[2024-05-06 05:30] LABS: Glucose Point of Care 150 mg/dl (65-105)
[2024-05-06 06:44] LABS: Albumin Level 2.1 g/dL (3.5-5.1); Anion Gap 5 mmol/L (4-12); Blood Urea Nitrogen 51 mg/dL (7-17); Calcium 8.5 mg/dL (8.4-10.2); Carbon Dioxide 22 mmol/L (22-30); Chloride 111 mmol/L (98-107); Estimated CRCL calculation 8 ml/min; Estimated Glomerular Filt Rate 6; Glucose 80 mg/dL (65-110); Phosphorus 4.9 mg/dL (2.5-4.5); Sodium 138 mmol/L (137-145)
[2024-05-06 07:46] LABS: Folic Acid 5.3 ng/mL (2.76->20)
[2024-05-06 08:11] LABS: Glucose Point of Care 77 mg/dl (65-105)
[2024-05-06] MEDS: POTASSIUM CHLORIDE 20 MEQ ER TABLET PO ×2 (08:50→16:59)
[2024-05-06] MEDS: VENLAFAXINE HCL XR 75 MG CAP.ER.24H 150 MG PO (08:50)
[2024-05-06] MEDS: SODIUM CHLORIDE 0.9% IV 1,000 ML 75 ML IV CONT ×2 (08:50→20:36)
[2024-05-06] MEDS: amLODIPine BESYLATE 5 MG TABLET PO (08:50)
[2024-05-06] MEDS: PANTOPRAZOLE 40 MG TABLET PO (08:51)
[2024-05-06] MEDS: COSYNTROPIN 0.25 MG/ML VIAL IV PUSH (08:51)
--- NOTE | 2024-05-06 08:59 | PM.PNNEP ---
Progress Note: A&P Assessment and Plan (1) Acute kidney injury: Code(s): N17.9 - Acute kidney failure, unspecified Status: Acute Assessment and Plan: Gena has acute kidney injury. Her baseline GFR was 11 and the GFR with this high creatinine is only 2. She has significant uremic symptoms. Urinalysis shows blood and white cells. Urine electrolytes are non pre renal. I am not sure her kidneys are good enough to drive her urine sodium down. CPK is normal Renal ultrasound shows small kidneys no hydro. SAEID due to dehydration She is getting IV fluids. Her creatinine has improved to 8.3 so GFR is up to 6 Her bicarb is up to 22 Potassium is only 3 Will change fluids to normal saline at 75 and continue hydration She does not like the potassium chloride liquid so will switch back to pills. She did really take much potassium chloride yesterday so in changing the pills back will give her potassium supplements starting today. Taking away the bicarb in the fluid will help keep her potassium from dropping as well. Dr. Russell just changed her potassium to pills (2) Chronic kidney disease, stage 4 (severe): Code(s): N18.4 - Chronic kidney disease, stage 4 (severe) Status: Acute Assessment and Plan: The patient had an acute kidney injury several years ago due to rhabdomyolysis. She had a very slow recovery but eventually got off dialysis a couple of years ago. GFR had been stable in the teens. The patient will need a fistula down the line. I will have my office schedule her for I a consult at [facility] (3) RUQ abdominal pain: Code(s): R10.11 - Right upper quadrant pain Status: Acute Assessment and Plan: This is much improved (4) Diet-controlled type 2 diabetes mellitus: Code(s): E11.9 - Type 2 diabetes mellitus without complications Status: Acute Assessment and Plan: The patient is on Accu-Cheks (5) Secondary hyperparathyroidism, not elsewhere classified: Code(s): E21.1 - Secondary hyperparathyroidism, not elsewhere classified Status: Acute Assessment and Plan: Phosphorus level is down to 4.9 She is on a lot of pills so will cut out the calcium acetate and follow the phosphorus (6) Hypertension: Qualifiers: Hypertension type: secondary to other renal disorders Qualified Code(s): I15.1 - Hypertension secondary to other renal disorders; N28.89 - Other specified disorders of kidney and ureter Code(s): I10 - Essential (primary) hypertension Status: Chronic Assessment and Plan: Blood pressure is better this morning. Orthostatics are pending will continue same medications (7) Pure hypercholesterolemia, unspecified: Code(s): E78.00 - Pure hypercholesterolemia, unspecified Status: Acute Assessment and Plan: She has not been on a statin (8) Erythropoietin deficiency anemia: Code(s): D63.1 - Anemia in chronic kidney disease Status: Acute Assessment and Plan: Will been stable in the 9s Will check another tomorrow Subjective Date/time seen: 05/06/24 08:59 Interval history: Gena feels better. She is eating okay. Belly is better Exam Narrative: WDWN in NAD skin no rash or subQ nodules head ncat lungs clear to auscultation cor reg no rub or gallop abd BS+ nontender and soft ext no edema Objective Data Vital Signs Vital Signs: Vital Signs - 24 hr 05/05/24 09:45 05/05/24 09:45 05/05/24 09:46 Temperature Pulse Rate 83 78 106 H Respiratory Rate Blood Pressure 147/72 H 147/80 H 108/64 Pulse Oximetry Oxygen Delivery 05/05/24 15:00 05/05/24 22:00 05/05/24 22:00 Temperature 97.1 F L 97.4 F L 97.4 F L Pulse Rate 88 84 84 Respiratory Rate 16 20 20 Blood Pressure 172/82 H 167/87 H 167/87 H Pulse Oximetry 100 100 100 Oxygen Delivery 05/05/24 22:05 05/05/24 22:10 05/05/24 20:00 Temperature
--- NOTE | 2024-05-06 09:36 | PM.IMPN ---
Progress Note: A&P Assessment and Plan (1) SAEID (acute kidney injury): Code(s): N17.9 - Acute kidney failure, unspecified Status: Acute Plan SAEID on CKD History of stage IV CKD, kidney function is worse to the level of end-stage of renal disease Possible due to dehydration Continue normal saline IV per final coat sprayer Renal shown shows kidney atrophy Avoid nephrotoxin medication No sign of fluid overload Creatinine is trending down slowly Corn Picker considers dialysis catheter placement Metabolic acidosis Sodium bicarbonate 15, 05/04 Resulting from acute renal failure Increase sodium bicarbonate 650 mg t.i.d. p.o. Corn Picker on board, follow recommendation bicarbonate carbonate low, started sodium bicarbonate IV per final coat sprayer Bicarbonate 22 today, discontinue bicarbonate IV Hypokalemia Start potassium chloride 20 mEq b.i.d. p.o. Follow-up BMP Type 2 diabetes Stable Diet controlled Uncontrolled hypertension No home medication Start amlodipine 10 mg daily p.o. Adjust medication accordingly Subjective Date/time seen: 05/06/24 09:36 Interval history: I saw examined patient today, patient feels better today, denies chest pain shortness breast, abdomen pain, nausea vomiting focal weakness. Labs reviewed, metabolic acidosis is corrected, patient is afebrile, blood pressure stable Exam Narrative: GENERAL: Pleasant, in no acute distress. Well-nourished. - EYES: EOMI. Anicteric. - HENT: Moist mucous membranes. - LUNGS: Clear to auscultation bilaterally, no wheezing, rhonchi, or rales. - CARDIOVASCULAR: Regular rate and rhythm. No murmur. No JVD. - ABDOMEN: Soft, non-tender and non-distended. No palpable masses. - EXTREMITIES: No edema. Peripheral pulses 2+. Non-tender. - NEUROLOGIC: No focal neurological deficits. CN II-XII grossly intact. - PSYCHIATRIC: Awake, Alert and oriented x 3. Appropriate mood and affect. - SKIN: No rashes or lesions. Warm. - LYMPH: No cervical lymphadenopathy. Objective Data Vital Signs Vital Signs: Vital Signs - 24 hr 05/05/24 09:45 05/05/24 09:45 05/05/24 09:46 Temperature Pulse Rate 83 78 106 H Respiratory Rate Blood Pressure 147/72 H 147/80 H 108/64 Pulse Oximetry Oxygen Delivery 05/05/24 15:00 05/05/24 22:00 05/05/24 22:00 Temperature 97.1 F L 97.4 F L 97.4 F L Pulse Rate 88 84 84 Respiratory Rate 16 20 20 Blood Pressure 172/82 H 167/87 H 167/87 H Pulse Oximetry 100 100 100 Oxygen Delivery 05/05/24 22:05 05/05/24 22:10 05/05/24 20:00 Temperature 97.0 F L 97.2 F L Pulse Rate 93 96 Respiratory Rate 20 20 Blood Pressure 151/96 H 150/98 H Pulse Oximetry 100 100 Oxygen Delivery Room Air 05/06/24 06:00 Temperature 97.6 F Pulse Rate 87 Respiratory Rate 20 Blood Pressure 139/76 Pulse Oximetry 100 Oxygen Delivery Intake/Output Intake/Output: Intake & Output 05/03/24 05/04/24 05/05/24 05/06/24 23:59 23:59 23:59 23:59 Intake Total 3680 2908.3 2188.3 886.7 Output Total 1350 2600 3200 1800 Balance 2330 308.3 -1011.7 -913.3 Meds/Results Medications: Active Medications Generic Name Dose Route Start Last Admin Trade Name Freq PRN Reason Stop Dose Admin Acetaminophen 650 mg 05/02/24 18:35 Acetaminophen 325 Mg Tablet PO Q6H PRN Mild Pain (1-3) or Fever Amlodipine Besylate 5 mg 05/05/24 09:00 05/06/24 08:50 Amlodipine Besylate 5 Mg Tablet PO 5 mg DAILY RAVI Administration Sodium Chloride 1,000 mls @ 75 mls/hr 05/06/24 08:25 05/06/24 08:50 Normal Saline Iv IV CONT 75 mls/hr .[id number] RAVI Administration Pantoprazole Sodium 40 mg 05/03/24 13:10 05/06/24 08:51 Pantoprazole 40 Mg Tablet PO 40 mg QAM RAVI Administration Potassium Chloride 20 meq 05/06/24 09:00 05/06/24 08:50 Potassium Chloride 20 Meq Er Tablet PO 20 meq BID RAVI Administration Sodium Chloride 10 ml 05/06/24 14:00 Saline Lock Flush IV PUSH Q8HR RAVI
[2024-05-06] MEDS: POTASSIUM CHLORIDE 20 MEQ ER TABLET 40 MEQ PO (11:22)
[2024-05-06 11:31] LABS: Glucose Point of Care 130 mg/dl (65-105)
[2024-05-06] MEDS: SALINE LOCK FLUSH 10 ML IV PUSH ×2 (14:32→20:36)
[2024-05-06 16:45] LABS: Glucose Point of Care 144 mg/dl (65-105)
[2024-05-06 21:32] LABS: Glucose Point of Care 119 mg/dl (65-105)
[2024-05-07 05:34] LABS: Hematocrit 27.8 % (37.0-47.0); Hemoglobin 8.7 g/dL (12.0-15.0); Mean Corpuscular HGB Conc 31.3 g/dl (32-36); Mean Corpuscular Hemoglobin 29.6 pg (26-34); Mean Corpuscular Volume 94.6 fl (80-100); Mean Platelet Volume 11.3 fl (7.4-10.4); Platelet Count Result 150 k/mm3 (150-375); Red Blood Count 2.94 M/mm3 (4.2-5.4); Red Cell Distribution Width 13.7 % (11.5-14.5); White Blood Count 8.6 K/mm3 (4.5-10.0)
[2024-05-07 05:49] LABS: Albumin Level 2.1 g/dL (3.5-5.1); Anion Gap 5 mmol/L (4-12); Blood Urea Nitrogen 44 mg/dL (7-17); Calcium 8.5 mg/dL (8.4-10.2); Carbon Dioxide 20 mmol/L (22-30); Chloride 114 mmol/L (98-107); Estimated CRCL calculation 8 ml/min; Estimated Glomerular Filt Rate 7; Glucose 78 mg/dL (65-110); Phosphorus 4.3 mg/dL (2.5-4.5); Potassium 3.4 mmol/L (3.4-5.0); Sodium 139 mmol/L (137-145)
[2024-05-07 06:00] VITALS: BP 150/83; PULSE 90; RESP 20; TEMP 36.4; O2SAT 100
[2024-05-07] MEDS: SODIUM CHLORIDE 0.9% IV 1,000 ML 75 ML IV CONT ×2 (09:03→21:18)
[2024-05-07] MEDS: POTASSIUM CHLORIDE 20 MEQ ER TABLET PO ×2 (09:03→17:47)
[2024-05-07] MEDS: PANTOPRAZOLE 40 MG TABLET PO (09:03)
[2024-05-07] MEDS: amLODIPine BESYLATE 5 MG TABLET PO (09:03)
[2024-05-07] MEDS: VENLAFAXINE HCL XR 75 MG CAP.ER.24H 150 MG PO (09:04)
--- NOTE | 2024-05-07 09:31 | PM.IMPN ---
Progress Note: A&P Assessment and Plan (1) SAEID (acute kidney injury): Code(s): N17.9 - Acute kidney failure, unspecified Status: Acute Plan SAEID on CKD History of stage IV CKD, kidney function is worse to the level of end-stage of renal disease Possible due to dehydration Continue normal saline IV per bag hanger Renal shown shows kidney atrophy Avoid nephrotoxin medication No sign of fluid overload Creatinine is trending down slowly Metabolic acidosis Sodium bicarbonate 15, 05/04 Resulting from acute renal failure Increase sodium bicarbonate 650 mg t.i.d. p.o. 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 p.o. Follow-up BMP Corrected Type 2 diabetes Stable Diet controlled Uncontrolled hypertension No home medication Start amlodipine 10 mg daily p.o. Adjust medication accordingly We discharge patient tomorrow if condition continue to improve Subjective Date/time seen: 05/07/24 09:31 Interval history: I saw examined patient today, patient feels better today, denies chest pain shortness breast, abdomen pain, nausea vomiting focal weakness. Labs reviewed, kidney function continue to improve. Patient is afebrile, blood pressure stable Exam Narrative: GENERAL: Pleasant, in no acute distress. Well-nourished. - EYES: EOMI. Anicteric. - HENT: Moist mucous membranes. - LUNGS: Clear to auscultation bilaterally, no wheezing, rhonchi, or rales. - CARDIOVASCULAR: Regular rate and rhythm. No murmur. No JVD. - ABDOMEN: Soft, non-tender and non-distended. No palpable masses. - EXTREMITIES: No edema. Peripheral pulses 2+. Non-tender. - NEUROLOGIC: No focal neurological deficits. CN II-XII grossly intact. - PSYCHIATRIC: Awake, Alert and oriented x 3. Appropriate mood and affect. - SKIN: No rashes or lesions. Warm. - LYMPH: No cervical lymphadenopathy. Objective Data Vital Signs Vital Signs: Vital Signs - 24 hr 05/06/24 14:00 05/06/24 14:00 05/06/24 14:02 Temperature 97.5 F L 97.5 F L Pulse Rate 80 95 103 H Respiratory Rate 20 20 Blood Pressure 100/87 147/65 H 150/76 H Pulse Oximetry 100 99 Oxygen Delivery 07/28/24 14:04 05/06/24 20:00 05/06/24 22:00 Temperature 97.1 F L Pulse Rate 112 H 100 Respiratory Rate 20 Blood Pressure 132/87 150/85 H Pulse Oximetry 100 Oxygen Delivery Room Air 05/06/24 22:00 05/06/24 22:05 05/06/24 22:15 Temperature 97.1 F L 97.0 F L 97.0 F L Pulse Rate 100 100 127 H Respiratory Rate 20 20 20 Blood Pressure 150/85 H 150/92 H 139/91 H Pulse Oximetry 100 100 100 Oxygen Delivery 05/07/24 06:00 Temperature 97.5 F L Pulse Rate 90 Respiratory Rate 20 Blood Pressure 150/83 H Pulse Oximetry 100 Oxygen Delivery Intake/Output Intake/Output: Intake & Output 05/04/24 05/05/24 05/06/24 05/07/24 23:59 23:59 23:59 23:59 Intake Total 2908.3 2188.3 2999.2 1590 Output Total 2600 3200 3050 1400 Balance 308.3 -1011.7 -50.8 190 Meds/Results Medications: Active Medications Generic Name Dose Route Start Last Admin Trade Name Freq PRN Reason Stop Dose Admin Acetaminophen 650 mg 05/02/24 18:35 Acetaminophen 325 Mg Tablet PO Q6H PRN Mild Pain (1-3) or Fever Amlodipine Besylate 5 mg 05/05/24 09:00 05/07/24 09:03 Amlodipine Besylate 5 Mg Tablet PO 5 mg DAILY RAVI Administration Sodium Chloride 1,000 mls @ 75 mls/hr 05/06/24 08:25 05/07/24 09:03 Normal Saline Iv IV CONT 75 mls/hr .[id number] RAVI Administration Pantoprazole Sodium 40 mg 05/03/24 13:10 05/07/24 09:03 Pantoprazole 40 Mg Tablet PO 40 mg QAM RAVI Administration Potassium Chloride 20 meq 05/06/24 09:00 05/07/24 09:03 Potassium Chloride 20 Meq Er Tablet PO 20 meq BID RAVI Administration Sodium Chloride 10 ml 05/06/24 14:
[2024-05-07 10:11] VITALS: BP 158/81
[2024-05-07 10:13] VITALS: BP 142/89; BP 154/82
[2024-05-07] MEDS: ACETAMINOPHEN 325 MG TABLET 650 MG PO (12:31)
[2024-05-07] MEDS: SALINE LOCK FLUSH 10 ML IV PUSH ×2 (12:32→21:20)
--- NOTE | 2024-05-07 13:28 | PM.PNNEP ---
Progress Note: A&P Assessment and Plan (1) Acute kidney injury: Code(s): N17.9 - Acute kidney failure, unspecified Status: Acute Assessment and Plan: Gena has acute kidney injury. Her baseline GFR was 11 and the GFR with this high creatinine is only 2. She has significant uremic symptoms. Urinalysis shows blood and white cells. Urine electrolytes are non pre renal. I am not sure her kidneys are good enough to drive her urine sodium down. CPK is normal Renal ultrasound shows small kidneys no hydro. SAEID due to dehydration. She has been getting IV fluids. Her creatinine has improved to 7.5. GFR is up to 7 now he Her bicarb is up to 20 will add sodium bicarbonate. Potassium is up to 3.4 continue fluids 1 more day. If things like this or better then I think we can get her discharged. (2) Chronic kidney disease, stage 4 (severe): Code(s): N18.4 - Chronic kidney disease, stage 4 (severe) Status: Acute Assessment and Plan: The patient had an acute kidney injury several years ago due to rhabdomyolysis. She had a very slow recovery but eventually got off dialysis a couple of years ago. GFR had been stable in the teens. The patient will need a fistula down the line. I will have my office schedule her for a consult at [facility] (3) RUQ abdominal pain: Code(s): R10.11 - Right upper quadrant pain Status: Acute Assessment and Plan: This is much improved (4) Diet-controlled type 2 diabetes mellitus: Code(s): E11.9 - Type 2 diabetes mellitus without complications Status: Acute Assessment and Plan: The patient is on Accu-Cheks (5) Secondary hyperparathyroidism, not elsewhere classified: Code(s): E21.1 - Secondary hyperparathyroidism, not elsewhere classified Status: Acute Assessment and Plan: Phosphorus level is down to 4.3 She is on a lot of pills so will cut out the calcium acetate and follow the phosphorus Since the GFR is better she may not need the binders. (6) Hypertension: Qualifiers: Hypertension type: secondary to other renal disorders Qualified Code(s): I15.1 - Hypertension secondary to other renal disorders; N28.89 - Other specified disorders of kidney and ureter Code(s): I10 - Essential (primary) hypertension Status: Chronic Assessment and Plan: Blood pressure is better this morning. Orthostatics are pending will continue same medications (7) Pure hypercholesterolemia, unspecified: Code(s): E78.00 - Pure hypercholesterolemia, unspecified Status: Acute Assessment and Plan: She has not been on a statin (8) Erythropoietin deficiency anemia: Code(s): D63.1 - Anemia in chronic kidney disease Status: Acute Assessment and Plan: Will been Down a bit to 8.7. Will give a dose of EPO Subjective Date/time seen: 05/07/24 13:28 Interval history: Gena is feeling okay. No chest pain or shortness of breath. No nausea. Exam Narrative: WDWN in NAD skin no rash or subQ nodules head ncat lungs clear to auscultation cor reg no rub or gallop abd BS+ nontender and soft ext no edema or cyanosis Objective Data Vital Signs Vital Signs: Vital Signs - 24 hr 05/06/24 14:00 05/06/24 14:00 05/06/24 14:02 Temperature 97.5 F L 97.5 F L Pulse Rate 80 95 103 H Respiratory Rate 20 20 Blood Pressure 100/87 147/65 H 150/76 H Pulse Oximetry 100 99 Oxygen Delivery 05/06/24 14:04 05/06/24 20:00 05/06/24 22:00 Temperature 97.1 F L Pulse Rate 112 H 100 Respiratory Rate 20 Blood Pressure 132/87 150/85 H Pulse Oximetry 100 Oxygen Delivery Room Air 05/06/24 22:00 05/06/24 22:05 05/06/24 22:15 Temperature 97.1 F L 97.0 F L 97.0 F L Pulse Rate 100 100 127 H Respiratory Rate 20 20 20 Blood Pressure 150/85 H 150/92 H 139/91 H Pulse Oximetry 100 100 100 Oxygen Delivery
[2024-05-07 15:19] VITALS: BP 148/76; PULSE 98; RESP 18; TEMP 36.2; O2SAT 97
[2024-05-07] MEDS: EPOETIN ALFA-EPBX 10,000 UNITS/ML VIAL 10000 UNITS SUB-Q (16:22)
[2024-05-07] MEDS: SODIUM BICARBONATE TAB 650 MG TABLET 1300 MG PO (17:47)
[2024-05-07 18:23] LABS: Immunofixation, Serum Normal pattern.
[2024-05-07 21:28] VITALS: BP 151/83; PULSE 94; RESP 18; TEMP 36.2; O2SAT 100
[2024-05-08 01:49] LABS: Protein, Total 3.9 g/dL (6.1-8.1)
[2024-05-08 01:54] LABS: Glucose Point of Care 174 mg/dl (65-105)
[2024-05-08 06:00] VITALS: BP 153/81; PULSE 93; RESP 16; TEMP 36.4; O2SAT 100
[2024-05-08 07:22] LABS: Anion Gap 4 mmol/L (4-12); Blood Urea Nitrogen 38 mg/dL (7-17); Calcium 8.8 mg/dL (8.4-10.2); Carbon Dioxide 20 mmol/L (22-30); Chloride 115 mmol/L (98-107); Estimated CRCL calculation 9 ml/min; Estimated Glomerular Filt Rate 7; Glucose 79 mg/dL (65-110); Phosphorus 4.5 mg/dL (2.5-4.5); Potassium 3.4 mmol/L (3.4-5.0); Sodium 139 mmol/L (137-145)
[2024-05-08] MEDS: POTASSIUM CHLORIDE 20 MEQ ER TABLET PO (08:30)
[2024-05-08] MEDS: PANTOPRAZOLE 40 MG TABLET PO (08:30)
[2024-05-08] MEDS: VENLAFAXINE HCL XR 75 MG CAP.ER.24H 150 MG PO (08:30)
[2024-05-08] MEDS: amLODIPine BESYLATE 5 MG TABLET PO (08:30)
[2024-05-08] MEDS: SODIUM BICARBONATE TAB 650 MG TABLET 1300 MG PO (08:32)
--- NOTE | 2024-05-08 08:44 | P.PNIM_ITS ---
Progress Note: A&P Assessment and Plan (1) SAEID (acute kidney injury): Code(s): N17.9 - Acute kidney failure, unspecified Status: Acute Plan SAEID on CKD History of stage IV CKD, kidney function is worse to the level of end-stage of renal disease, creatinine 12.8 upon arrival in the ED Possible due to dehydration Continue normal saline IV per occupancy specialist Renal shown shows kidney atrophy Avoid nephrotoxin medication No sign of fluid overload Creatinine is trending down slowly creatinine 6.8 today Metabolic acidosis Sodium bicarbonate 15, 05/04 Resulting from acute renal failure Ged Instructor on board, follow recommendation bicarbonate carbonate low, started sodium bicarbonate IV per occupancy specialist Partially corrected, discontinue bicarbonate IV on sodium bicarbonate 1300 mg t.i.d. p.o. Hypokalemia Start potassium chloride 20 mEq b.i.d. p.o. Follow-up BMP Corrected Chronic anemia Stable Resulting from CKD No obvious GI bleeding Management per occupancy specialist Type 2 diabetes Stable Diet controlled Uncontrolled hypertension No home medication Start amlodipine mg daily p.o. Adjust medication accordingly per PCP in office Patient condition stable, occupancy specialist approved to discharge patient today Subjective Date/time seen: 05/08/24 08:44 Interval history: I saw examined patient today, patient feels comfortable, has no new issue or events over the night, she denies chest pain shortness breast, abdomen pain, n ausea vomiting focal weakness. Labs reviewed, kidney function continue to improve. Patient is afebrile, blood pressure stable Exam Narrative: GENERAL: Pleasant, in no acute distress. Well-nourished. - EYES: EOMI. Anicteric. - HENT: Moist mucous membranes. - LUNGS: Clear to auscultation bilateral ly, no wheezing, rhonchi, or rales. - CARDIOVASCULAR: Regular rate and rhyth m. No murmur. No JVD. - ABDOMEN: Soft, non-tender and non-dist ended. No palpable masses. - EXTREMITIES: No edema. Peripheral puls es 2+. Non-tender. - NEUROLOGIC: No focal neurological defi cits. CN II-XII grossly intact. - PSYCHIATRIC: Awake, Alert and oriented x 3. Appropriate mood and affect. - SKIN: No rashes or lesions. Warm. - LYMPH: No cervical lymphadenopathy. Objective Data Vital Signs Vital Signs: Vital Signs - 24 hr 05/07/24 10:11 05/07/24 10:13 05/07/24 10:13 Temperature Pulse Rate Respiratory Rate Blood Pressure 158/81 H 154/82 H 142/89 H Pulse Oximetry Oxygen Delivery 05/07/24 09:03 05/07/24 15:19 05/07/24 21:28 Temperature 97.2 F L 97.1 F L Pulse Rate 98 94 Respiratory Rate 18 18 Blood Pressure 148/76 H 151/83 H Pulse Oximetry 97 100 Oxygen Delivery Room Air 05/07/24 20:00 05/08/24 06:00 Temperature 97.6 F Pulse Rate 93 Respiratory Rate 16 Blood Pressure 153/81 H Pulse Oximetry 100
--- NOTE | 2024-05-08 08:44 | PM.IMPN ---
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 p.o. Hypokalemia Start potassium chloride 20 mEq b.i.d. p.o. Follow-up BMP Corrected Chronic anemia Stable Resulting from CKD No obvious GI bleeding Management per rubber chemist Type 2 diabetes Stable Diet controlled Uncontrolled hypertension No home medication Start amlodipine mg daily p.o. Adjust medication accordingly per PCP in office Patient condition stable, rubber chemist approved to discharge patient today Subjective Date/time seen: 05/08/24 08:44 Interval history: I saw examined patient today, patient feels comfortable, has no new issue or events over the night, she denies chest pain shortness breast, abdomen pain, nausea vomiting focal weakness. Labs reviewed, kidney function continue to improve. Patient is afebrile, blood pressure stable Exam Narrative: GENERAL: Pleasant, in no acute distress. Well-nourished. - EYES: EOMI. Anicteric. - HENT: Moist mucous membranes. - LUNGS: Clear to auscultation bilaterally, no wheezing, rhonchi, or rales. - CARDIOVASCULAR: Regular rate and rhythm. No murmur. No JVD. - ABDOMEN: Soft, non-tender and non-distended. No palpable masses. - EXTREMITIES: No edema. Peripheral pulses 2+. Non-tender. - NEUROLOGIC: No focal neurological deficits. CN II-XII grossly intact. - PSYCHIATRIC: Awake, Alert and oriented x 3. Appropriate mood and affect. - SKIN: No rashes or lesions. Warm. - LYMPH: No cervical lymphadenopathy. Objective Data Vital Signs Vital Signs: Vital Signs - 24 hr 05/07/24 10:11 05/07/24 10:13 05/07/24 10:13 Temperature Pulse Rate Respiratory Rate Blood Pressure 158/81 H 154/82 H 142/89 H Pulse Oximetry Oxygen Delivery 05/07/24 09:03 05/07/24 15:19 05/07/24 21:28 Temperature 97.2 F L 97.1 F L Pulse Rate 98 94 Respiratory Rate 18 18 Blood Pressure 148/76 H 151/83 H Pulse Oximetry 97 100 Oxygen Delivery Room Air 05/07/24 20:00 05/08/24 06:00 Temperature 97.6 F Pulse Rate 93 Respiratory Rate 16 Blood Pressure 153/81 H Pulse Oximetry 100 Oxygen Delivery Room Air Intake/Output Intake/Output: Intake & Output 05/05/24 05/06/24 05/07/24 05/08/24 23:59 23:59 23:59 23:59 Intake Total 2188.3 2999.2 3538.8 250 Output Total 3200 3050 3100 Balance -1011.7 -50.8 438.8 250 Meds/Results Medications: Active Medications Generic Name Dose Route Start Last Admin Trade Name Freq PRN Reason Stop Dose Admin Acetaminophen 650 mg 05/02/24 18:35 05/07/24 12:31 Acetaminophen 325 Mg Tablet PO 650 mg Q6H PRN Administration Mild Pain (1-3) or Fever Amlodipine Besylate 5 mg 05/05/24 09:00 05/08/24 08:30 Amlodipine Besylate 5 Mg Tablet PO 5 mg DAILY RAVI Administration Epoetin Isac-epbx 10,000 units 05/07/24 13:35 05/07/24 16:22 Epoetin Isac-Epbx 10,000 Units/Ml Vial SUB-Q 10,000 units MOWEFR@09 RAVI Administration Sodium Chloride 1,000 mls @ 75 mls/hr 05/06/24 08:25 05/07/24 21:18 Normal Saline Iv IV CONT 75 mls/hr .[id number] RAVI Administration Pantoprazole Sodium 40 mg 05/03/24 13:10 05/08/24 08:30 Pantoprazole 40 Mg Tablet PO 40 mg QAM RAVI
--- NOTE | 2024-05-08 09:03 | P.PNNP_ITS ---
Progress Note: A&P Assessment and Plan (1) Acute kidney injury: Code(s): N17.9 - Acute kidney failure, unspecified Status: Acute Assessment and Plan: * slow and steady improvement noted * as noted on outpatient and admission labs * GFR acutely dropped to 2cc/min with associated creatinine of 15 (on outpatient labs) * creatinine noted to 12.8mg/dl on admission * complicated by uremic symptoms * evaluation to date: * UA with blood and white cells * Urine electrolytes non pre renal * CPK normal * renal ultrasound shows small kidneys but hydro/obstruction * suspected etiology due to dehydration/volume depletion * improvement in creatinine noted with IVFs * continue supportive therapy (2) Chronic kidney disease, stage 4 (severe): Code(s): N18.4 - Chronic kidney disease, stage 4 (severe) Status: Chronic Assessment and Plan: * known advanced CKD due to left over from SAEID/ARF from severe rhabdomyolysis * had a very slow recovery but eventually got off dialysis a couple of years ago * GFR had been running in the high teens with creatinine in the range of 3.0 - 3.5mg/dl * will eventually need PSYCHIATRIC THERAPIST/dialysis in the near future * tentatively plan AVF as an outpatient (3) Hypertension: Qualifiers: Hypertension type: secondary to other renal disorders Qualified Code(s): I15.1 - Hypertension secondary to other renal disorders; N28.89 - Other specified disorders of kidney and ureter Code(s): I10 - Essential (primary) hypertension Status: Chronic Assessment and Plan: * reasonable control * given advanced CKD, would try to avoid overcontrol * follow trend of hemodynamics (4) Erythropoietin deficiency anemia: Code(s): D63.1 - Anemia in chronic kidney disease Status: Chronic Assessment and Plan: * presumably due to CKD * dosed with Epogen while hospitalized * follow trend of H/H (5) Diet-controlled type 2 diabetes mellitus: Code(s): E11.9 - Type 2 diabetes mellitus without complications Status: Chronic Assessment and Plan: * follow accu-cheks * glycemic control per hospitalists Not opposed to discharge from renal perspective - she can follow-up with Dr. Colmenares as scheduled Will continue to follow. Subjective Date/time seen: 05/08/24 09:03 Interval history: Follow-up for acute kidney injury on chronic kidney disease. Chart reviewed -- assuming care from Dr. Dedra; no apparent distress voiced at the time of my visit; renal function continues to slowly improve as noted by trend of labs; no other acute complaints to report; no events overnight or e arlier this morning. Exam Narrative: General: WD/WN female in NAD Heart: normal S1 and S2; no rub Lungs: clear to auscultation Abdomen: soft, nontender, nondistended, positive bowel sounds Extremities: no cyanosis or clubbing; no edema Skin: warm and dry Objective Data Vital Signs Vital Signs: Vital Signs Temp Pulse Resp BP Pulse Ox O2 Del Method 05/08/24 06:00 97.6 F 93 16 153/81 H 100 05/07/24 20:00 Room Air 05/07/24 21:28 97.1 F L 94 18 151/83 H 100 05/07/24 15:19 97.2 F L 98 18 148/76 H 97 05/07/24 10:13 142/89 H 05/07/24 10:13 154/82 H 05/07/24 10:11 158/81 H Intake/O
--- NOTE | 2024-05-08 09:03 | PM.PNNEP ---
Progress Note: A&P Assessment and Plan (1) Acute kidney injury: Code(s): N17.9 - Acute kidney failure, unspecified Status: Acute Assessment and Plan: slow and steady improvement noted as noted on outpatient and admission labs GFR acutely dropped to 2cc/min with associated creatinine of 15 (on outpatient labs) creatinine noted to 12.8mg/dl on admission complicated by uremic symptoms evaluation to date: UA with blood and white cells Urine electrolytes non pre renal CPK normal renal ultrasound shows small kidneys but hydro/obstruction suspected etiology due to dehydration/volume depletion improvement in creatinine noted with IVFs continue supportive therapy (2) Chronic kidney disease, stage 4 (severe): Code(s): N18.4 - Chronic kidney disease, stage 4 (severe) Status: Chronic Assessment and Plan: known advanced CKD due to left over from SAEID/ARF from severe rhabdomyolysis had a very slow recovery but eventually got off dialysis a couple of years ago GFR had been running in the high teens with creatinine in the range of 3.0 - 3.5mg/dl will eventually need SENIOR TRAINER/dialysis in the near future tentatively plan AVF as an outpatient (3) Hypertension: Qualifiers: Hypertension type: secondary to other renal disorders Qualified Code(s): I15.1 - Hypertension secondary to other renal disorders; N28.89 - Other specified disorders of kidney and ureter Code(s): I10 - Essential (primary) hypertension Status: Chronic Assessment and Plan: reasonable control given advanced CKD, would try to avoid overcontrol follow trend of hemodynamics (4) Erythropoietin deficiency anemia: Code(s): D63.1 - Anemia in chronic kidney disease Status: Chronic Assessment and Plan: presumably due to CKD dosed with Epogen while hospitalized follow trend of H/H (5) Diet-controlled type 2 diabetes mellitus: Code(s): E11.9 - Type 2 diabetes mellitus without complications Status: Chronic Assessment and Plan: follow accu-cheks glycemic control per hospitalists Not opposed to discharge from renal perspective - she can follow-up with Dr. Colmenares as scheduled Will continue to follow. Subjective Date/time seen: 05/08/24 09:03 Interval history: Follow-up for acute kidney injury on chronic kidney disease. Chart reviewed -- assuming care from Dr. Colmenares; no apparent distress voiced at the time of my visit; renal function continues to slowly improve as noted by trend of labs; no other acute complaints to report; no events overnight or earlier this morning. Exam Narrative: General: WD/WN female in NAD Heart: normal S1 and S2; no rub Lungs: clear to auscultation Abdomen: soft, nontender, nondistended, positive bowel sounds Extremities: no cyanosis or clubbing; no edema Skin: warm and dry Objective Data Vital Signs Vital Signs: Vital Signs Temp Pulse Resp BP Pulse Ox O2 Del Method 05/08/24 06:00 97.6 F 93 16 153/81 H 100 05/07/24 20:00 Room Air 05/07/24 21:28 97.1 F L 94 18 151/83 H 100 05/07/24 15:19 97.2 F L 98 18 148/76 H 97 05/07/24 10:13 142/89 H 05/07/24 10:13 154/82 H 05/07/24 10:11 158/81 H Intake/Output Intake/Output: Intake & Output 05/05/24 05/06/24 05/07/24 05/08/24 23:59 23:59 23:59 23:59 Intake Total 2188.3 2999.2 3538.8 490 Output Total 3200 3050 3100 Balance -1011.7 -50.8 438.8 490 Meds/Results Medications: Active Medications Generic Name Dose Route Start Last Admin Trade Name Freq PRN Reason Stop Dose Admin Acetaminophen 650 mg 05/02/24 18:35 05/07/24 12:31 Acetaminophen 325 Mg Tablet PO 650 mg Q6H PRN Administration Mild Pain (1-3) or Fever Amlodipine Besylate 5 mg 05/05/24 09:00 05/08/24 08:30 Amlodipine Besylate 5 Mg Tablet PO 5 mg DAILY RAVI Administration Epoetin
--- NOTE | 2024-05-08 09:46 | PM.DS ---
DS: Admitting Diagnosis Discharge Date 05/08 Admitting Diagnosis SAEID on CKD Chronic anemia Diabetes DS: Discharge Diagnosis Discharge Diagnosis (1) SAEID (acute kidney injury): Code(s): N17.9 - Acute kidney failure, unspecified Status: Acute DS: Summary Hospital Course Hospital Course: This is a very pleasant 63-year-old female with history of acute kidney injury related to rhabdomyolysis requiring temporary dialysis starting in March 2023, diet-controlled type 2 diabetes mellitus, hypertension, breast cancer, and anxiety who is being directly admitted from Dr. Colmenares'yaneli for further workup after she was found to have evidence of acute kidney injury on labs. The patient provides the following history. She recently vacationed to [facility] and returned 16 days ago. Two days later she developed URI symptoms to include sore throat and fever. Those symptoms improved however she then developed upper abdominal pain with nausea which seemed to be worse after eating. She had a couple episodes of emesis, some loose stools, and her appetite has not been great. The following med issues have been addressed during hospitalization SAEID on CKD History of stage IV CKD, kidney function is worse to the level of end-stage of renal disease, creatinine 12.8 upon arrival in the ED Possible due to dehydration Received normal saline IV per solar maintenance technician Renal shown shows kidney atrophy Avoid nephrotoxin medication No sign of fluid overload Creatinine is trending down slowly creatinine 6.8 today Metabolic acidosis Sodium bicarbonate 15, 05/04 Resulting from acute renal failure Baggage Screener on board, follow recommendation bicarbonate carbonate low, started sodium bicarbonate IV per solar maintenance technician Partially corrected, discontinue bicarbonate IV on sodium bicarbonate 1300 mg t.i.d. p.o. Hypokalemia Start potassium chloride 20 mEq b.i.d. p.o. Follow-up BMP Corrected Chronic anemia Stable Resulting from CKD No obvious GI bleeding Management per solar maintenance technician Type 2 diabetes Stable Diet controlled Uncontrolled hypertension No home medication Start amlodipine mg daily p.o. Adjust medication accordingly per PCP in office Patient condition stable, solar maintenance technician approved to discharge patient today Time Spent with Patient Time attestation: Total time spent providing and/or coordinating discharge services: Exam Narrative: GENERAL: Pleasant, in no acute distress. Well-nourished. - EYES: EOMI. Anicteric. - HENT: Moist mucous membranes. - LUNGS: Clear to auscultation bilaterally, no wheezing, rhonchi, or rales. - CARDIOVASCULAR: Regular rate and rhythm. No murmur. No JVD. - ABDOMEN: Soft, non-tender and non-distended. No palpable masses. - EXTREMITIES: No edema. Peripheral pulses 2+. Non-tender. - NEUROLOGIC: No focal neurological deficits. CN II-XII grossly intact. - PSYCHIATRIC: Awake, Alert and oriented x 3. Appropriate mood and affect. - SKIN: No rashes or lesions. Warm. - LYMPH: No cervical lymphadenopathy. DS: Data Data Completed and Pending Labs on day of discharge: Labs from last 24 hours 05/08/24 05/07/24 05/06/24 06:58 21:32 06:09 Sodium 139 Potassium 3.4 Chloride 115 H Carbon Dioxide 20 L Anion Gap 4 BUN 38 H Creatinine 6.80 H Estim Creat Clear Calc 9 Estimated GFR 7 L Glucose 79 POC Capillary Glucose 174 H Calcium 8.8 Phosphorus 4.5 Total Protein 3.9 L Albumin 2.0 L Abnorm Protein Band 1 Abnorm Protein Band 3 Serum Immunofixation 05/03/24 05/03/24 00:11 00:10 Sodium Potassium Chloride Carbon Dioxide Anion Gap BUN Creatinine Estim Creat Clear Calc Estimated GFR Glucose POC Capillary Glucose Calcium Phosphorus Total Protein Albumin Abnorm Protein Band 1 Not Reportable Abnorm Protein Band 3 Not Reportable Serum Immunofixation Normal pattern. Discharge Plan Discharge Atte
--- NOTE | 2024-05-08 10:06 | PC.NURSE ---
RN spoke with Dr Brambila outside patient's room and he okayed discharge for 341.
[2024-05-08] MEDS: NEOMYCIN/POLYMYXIN/BACITRACIN OINTMENT PACKET 1 PACKET (11:40)
[2024-05-09 09:29] LABS: Albumin 1.9 g/dL (3.8-4.8); Alpha 1 Globulin 0.2 g/dL (0.2-0.3); Alpha 2 Globulin 0.7 g/dL (0.5-0.9); Beta 1 Globulin 0.2 g/dL (0.4-0.6); Gamma Globulin 0.6 g/dL (0.8-1.7)
[2024-05-16 13:55] LABS: Add Urine Microscopic? YES
== END 2024-05-08 12:25 | disposition home or self-care (01) | DRG 640 ==
PROVIDERS: Internal Medicine Nephrology; Nurse Practitioner; Physician Assistant; Admitting Provider General Practice; PCP Family Medicine Adolescent Medicine; Visit Provider Hospitalist
DX: E86.0 Dehydration (principal); N18.6 End stage renal disease; N17.9 Acute kidney failure, unspecified; I12.0 Hypertensive chronic kidney disease with stage 5 chronic kidney disease or end stage renal disease; D63.1 Anemia in chronic kidney disease; E11.22 Type 2 diabetes mellitus with diabetic chronic kidney disease; E11.42 Type 2 diabetes mellitus with diabetic polyneuropathy; E78.00 Pure hypercholesterolemia, unspecified; E21.1 Secondary hyperparathyroidism, not elsewhere classified; E87.6 Hypokalemia; E55.9 Vitamin D deficiency, unspecified; F41.9 Anxiety disorder, unspecified; R80.9 Proteinuria, unspecified; Z85.3 Personal history of malignant neoplasm of breast; Z90.11 Acquired absence of right breast and nipple; Z92.21 Personal history of antineoplastic chemotherapy; Z87.891 Personal history of nicotine dependence
CPT/HCPCS: 36415; 36569; 76775; 80053; 80069; 81001; 82436; 82533; 82550; 82570; 82607; 82746; 82948; 83036; 83735; 84100; 84133; 84155; 84156; 84165; 84166; 84300; 85025; 85027; 85652; 85999; 86060; 86140; 86334; 87086; A9270; C1751; J0834; J7030; Q5105

== ENCOUNTER 2025-04-03 12:48 | Inpatient (IN) | payer MEDICARE, OTHER, SELFPAY ==
[2025-04-03] VITALS (27 sets, daily range): BP systolic 161–217; BP diastolic 67–119; PULSE 76–112; RESP 10–26; TEMP 36.8–36.9; O2SAT 95–100; BMI 28.8
--- NOTE | ~2025-04-03 | MR_ITS ---
EXAMINATION: MR brain/brain stem wo/w con DATE: 04/04/2025 11:55 INDICATION: New stroke seen on CT. TECHNIQUE: Magnetic resonance imaging (MRI) of the brain and brainstem was performed without and with 15 mL Multihance intravenous contrast. Sequences included sagittal and axial T1-weighted SE, axial d iffusion-weighted FS SE, axial 3D SWAN, axial T2-weighted FLAIR, and axial T2-weighted FSE. Postcontr ast axial and coronal T1-weighted SE was obtained. Apparent diffusion coefficient (ADC) maps were cre ated. COMPARISON: CT dated 04/03/2025 and brain MR dated 04/10/2023 FINDINGS: Small region of encephalomalacia in the right parietal occipital region consistent with sequela of ol d infarct. Mild serpiginous increased T1 signal along the region of encephalomalacia consistent with laminar necrosis. There is a small focus of restricted diffusion along the lateral margin of the margaux on of infarct suggesting recurrent acute infarct. Additional small focus of restricted diffusion cons istent acute lacunar infarct in the right thalamus. There are couple additional small old lacunar inf arcts in the left frontal lobe shin radiata. No intracranial hemorrhage, abnormal intracranial mass lesion or abnormally enhancing brain lesions. Moderate scattered areas of nonspecific increased T2-w eighted signal intensity in the cerebral white matter, predominantly involving the deep and periventr icular white matter. There are no intraparenchymal signal abnormalities seen on the other pulse seque nces. The ventricles are symmetric and normal in size. There are no abnormal extra-axial fluid collec tions. Flow voids are seen in the cerebral arteries on the T2-weighted sequences consistent with thei r expected patency. Small bilateral mastoid effusions. Visualized orbits and soft tissues are unremar kable. There is diffuse decreased T1 signal throughout the diploic space of the skull corresponding t o the increased sclerosis with innumerable tiny lytic lesions with [id number] appearance on prio r CT most suggestive of hyperparathyroidism or renal osteodystrophy. IMPRESSION: 1. Small acute infarcts at the right thalamus and in the right parieto-occipital region along the mar gins of a small region of encephalomalacia consistent with a prior, now chronic infarct. 2. Couple additional small old lacunar infarcts in the left frontal lobe white matter. 3. Moderate diffuse periventricular predominant nonspecific white matter T2 hyperintensity consistent with chronic small vessel ischemic disease. 4. Decreased T1 fat signal throughout the diploic space of the calvarium with corresponding solid and pepper appearance to the calvarium on prior CT most suggestive of sequela of hyperparathyroidism or renal osteodystrophy. Reviewed, dictated and finalized at location A. IMPRESSION: 1. Small acute infarcts at the right thalamus and in the right parieto-occipita l region along the margins of a small region of encephalomalacia consistent wit h a prior, now chronic infarct. 2. Couple additional small old lacunar infarcts in the left frontal lobe white matter. 3. Moderate diffuse periventricular predominant nonspecific white matter T2 hyp erintensity consistent with chronic small vessel ischemic disease. 4. Decreased T1 fat signal throughout the diploic space of the calvarium with c orresponding solid and pepper appearance to the calvarium on prior CT most sugg estive of sequela of hyperparathyroidism or renal osteodystrophy.
--- NOTE | ~2025-04-03 | MR_ITS ---
EXAMINATION: MRA brain wo con DATE: 04/05/2025 11:23 INDICATION: Brainstem stroke TECHNIQUE: Magnetic resonance angiography (MRA) of the brain was performed without intravenous contrast by the 3 D [id number] technique. COMPARISON: None. FINDINGS: Evaluation mildly limited by some motion artifact. There is normal flow related signal seen within th e vertebral, basilar and internal carotid arteries. The bilateral extracranial vertebral arteries are codominant. There is a moderate 50-70% stenosis of the intracranial right vertebral artery traverses following the takeoff of the right posterior inferior cerebellar artery. The intracranial left verte bral artery is diminutive following the takeoff of the significantly larger caliber left posterior in ferior cerebellar artery is unclear whether this is developmental or due to an additional moderate st enosis. Mild nonhemodynamically significant plaque along the bilateral carotid siphons. The basilar a rtery is small and gives rise to a tiny right P1 segment. It is unclear whether there is a diminutive contralateral left P1 segment. The majority of flow to the right posterior cerebral artery and the m ajority if not entire supply to the left posterior cerebral artery are supplied from the internal car otid arteries and patent bilateral posterior communicating arteries which are both significantly larg er than the basilar artery. Bilateral A1 segments are patent. There are no aneurysms identified. Franck w in the more peripheral cerebral arteries is symmetric. There is subtle increased signal in the ante rior left frontal lobe, the right thalamus and at the right parieto-occipital region corresponding to sites of restricted diffusion on prior MRI and consistent with luxury perfusion secondary to the inf arcts. IMPRESSION: 1. Moderate stenosis at the intracranial right vertebral artery and diminutive distal left vertebral artery and basilar artery, bladder to which could be developmental with majority vascular flow to the bilateral posterior cerebral arteries supplied via a significantly larger caliber patent bilateral p osterior commuting arteries. 2. Small region of flow to reperfusion associated with acute infarcts in the left frontal lobe, right thalamus and right parieto-occipital region. Reviewed, dictated and finalized at location A. IMPRESSION: 1. Moderate stenosis at the intracranial right vertebral artery and diminutive distal left vertebral artery and basilar artery, bladder to which could be deve lopmental with majority vascular flow to the bilateral posterior cerebral arter ies supplied via a significantly larger caliber patent bilateral posterior comm uting arteries. 2. Small region of flow to reperfusion associated with acute infarcts in the le ft frontal lobe, right thalamus and right parieto-occipital region.
--- NOTE | ~2025-04-03 | US_ITS ---
EXAM: RENAL ULTRASOUND HISTORY: SAEID superimposed on CKD COMPARISON: 05/02/2024 FINDINGS: RIGHT KIDNEY: 8.2 x 3.6 x 3.8 cm. The parenchyma of the right kidney is markedly increased in echogenicity. No hydronephrosis or renal calculi. LEFT KIDNEY: 8.0 x 5.5 x 3.8 cm No hydronephrosis or renal calculi. The parenchyma of the left kidney is markedly increased in echogenicity. BLADDER: The bladder is minimally distended, and otherwise unremarkable. IMPRESSION: No hydronephrosis or renal calculi. Findings suggesting medical renal disease. Reviewed, dictated and finalized at location A.
--- NOTE | ~2025-04-03 | CT_ITS ---
History: Altered mental status PROCEDURE: CT head without contrast. COMPARISON: 04/03/2025 TECHNIQUE: Axial imaging of the head performed from the skull base to the vertex without IV contrast. Sagittal a nd coronal reformations obtained. DLP: 681 mGy-cm FINDINGS: The ventricles are enlarged. The dilatation of the ventricles is proportional to the degree of sulcal prominence, not uncommon in the senescent brain. Redemonstration of decreased attenuation within the distribution of the right posterior cerebral verónica ry consistent with prior cerebral infarction, unchanged from prior. Decreased attenuation is identified within the periventricular white matter, likely secondary to micr ovascular ischemic disease, in a patient of this age. There is no mass, mass effect or midline shift. There is no abnormal extra-axial fluid collection or intracranial hemorrhage. Visualized paranasal sinuses are clear. Partial opacification of the left sided mastoid air cells. No acute displaced fractures within the overlying cranium. Impression: No acute intracranial hemorrhage or suspicious mass effect. Reviewed, dictated and finalized at location A. Impression: No acute intracranial hemorrhage or suspicious mass effect.
--- NOTE | ~2025-04-03 | CT_ITS ---
EXAMINATION: CT brain wo con DATE: 04/03/2025 13:40 INDICATION: Altered mental status. Falls. TECHNIQUE: Computed tomography (CT) of the head was performed without intravenous contrast. Sagittal and coronal reconstructions were performed. The mA was adjusted according to patient size. Iterative reconstruction technique was employed. The dose-length product was 681.00 mGy-cm. COMPARISON: head CT dated 03/30/2023 and MRI dated 04/10/2023 FINDINGS: No fracture. Moderate-sized region of encephalomalacia at the right parieto-occipital region consiste nt with sequela of old infarct. No acute intracranial hemorrhage, acute infarction or abnormal extra axial fluid collection. 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 Ventricles are normal and symmetric. No mass/mass effect. Small bi lateral mastoid effusions. The orbitsand paranasal sinuses normal. Salt and pepper appearance to the skull with numerous tiny lucent lesions which can be seen with hyperparathyroidism or renal osteodyst rophy. IMPRESSION: 1. No fracture or acute intracranial process. 2. Moderate-sized region of encephalomalacia in the right parieto-occipital region consistent with se quela of old infarct. 3. Moderate scattered nonspecific white matter hypoattenuation consistent with chronic small vessel i schemic disease. 4. Interval development of a salt and pepper appearance to the skull typical of hyperparathyroidism o r renal osteodystrophy. Reviewed, dictated and finalized at location A. IMPRESSION: 1. No fracture or acute intracranial process. 2. Moderate-sized region of encephalomalacia in the right parieto-occipital reg ion consistent with sequela of old infarct. 3. Moderate scattered nonspecific white matter hypoattenuation consistent with chronic small vessel ischemic disease. 4. Interval development of a salt and pepper appearance to the skull typical of hyperparathyroidism or renal osteodystrophy.
--- NOTE | ~2025-04-03 | XR_ITS ---
EXAM/PROCEDURE: XR chest 2V - 04/03/2025 13:39 CDT HISTORY: 64 years old Female with weakness TECHNIQUE: Two view(s) of the chest. COMPARISON: None available. FINDINGS: LUNGS/ PLEURA: No focal consolidation. No appreciable pneumothorax or large pleural effusion. HEART/ MEDIASTINUM: Heart appears normal in size. BONES: Degenerative changes. OTHER: Visualized upper abdomen is unremarkable. Surgical clips are seen in the right axilla. IMPRESSION: No acute process. Reviewed, dictated and finalized at location A. IMPRESSION: No acute process.
--- NOTE | ~2025-04-03 | XR_ITS ---
EXAM/ PROCEDURE: XR shoulder RT min 2V - 04/05/2025 11:12 CDT HISTORY: 64 years old Female with right shoulder pain COMPARISON: None available TECHNIQUE: Three view(s) FINDINGS/ IMPRESSION: There are no fractures or dislocations.Joint space narrowing, subchondral sclerosis, subchondral cyst formation and osteophyte formation, compatible with moderate to severe osteoarthritis, worse in the glenohumeral compartment. Surgical clips are seen. Reviewed, dictated and finalized at location A.
--- NOTE | ~2025-04-03 | XR_ITS ---
EXAMINATION: XR fl guide central line place DATE: 04/08/2025 15:45 INDICATION: Tunneled dialysis catheter placement TECHNIQUE: 4 fluoroscopic images of the right chest were obtained during procedure performed by Dr. Dominik bruno. Radiologist was not present for the imaging or procedure. The amount of fluoroscopy time used during this procedure was 0.6 minutes. Total DAP was 0.0822 mGym^2. COMPARISON: None. FINDINGS: Large-bore dual-lumen likely tunneled right internal jugular central venous catheter with distal tip projecting over the right atrium. There are multiple surgical clips the right axilla. Visualized port ion of the right lung are clear. IMPRESSION: 1. Fluoroscopy utilized during placement of a likely tunneled right internal jugular central venous c atheter with distal tip at the right atrium. See procedure note for further detail. Reviewed, dictated and finalized at location B. IMPRESSION: 1. Fluoroscopy utilized during placement of a likely tunneled right internal ju gular central venous catheter with distal tip at the right atrium. See procedur e note for further detail.
--- NOTE | ~2025-04-03 | US_ITS ---
CAROTID ULTRASOUND Ordering provider: Hilario Estevez MD History: . stroke . Comparison: None. Technique: Grayscale and color Doppler ultrasound examination of the carotid and vertebral artery sys tems bilaterally. Maximum peak systolic velocity (PSV) / end diastolic velocity (EDV) measurements we re obtained. FINDINGS: RIGHT: --COMMON CAROTID ARTERY: PSV is 62.5 cm/s. --EXTERNAL CAROTID ARTERY: PSV is 83.8 cm/s. --INTERNAL CAROTID ARTERY DISTAL: PSV is 66.9 cm/s. EDV is 24.1 cm/s. --VERTEBRAL ARTERY: . Antegrade flow with normal waveform. --SYSTOLIC ICA/CCA: 1.1 --ATHEROMATOUS DISEASE: Mild. LEFT: --COMMON CAROTID ARTERY: PSV is 50 cm/s. --EXTERNAL CAROTID ARTERY: PSV is 85.8 cm/s. --INTERNAL CAROTID ARTERY DISTAL: PSV is 58.1 cm/s. EDV is 16.2 cm/s. --VERTEBRAL ARTERY: Antegrade flow with normal waveform. --SYSTOLIC ICA/CCA: 1.2 --ATHEROMATOUS DISEASE: Mild. --OTHER: None. IMPRESSION: 1. No significant stenosis. 2. Antegrade flow demonstrated within both vertebral arteries. Reviewed, dictated and finalized at location A.
--- NOTE | ~2025-04-03 | XR_ITS ---
EXAMINATION: XR chest port-a-cath/central DATE: 04/08/2025 15:50 INDICATION: Tunneled dialysis catheter placement TECHNIQUE: frontal view of the chest was obtained. COMPARISON: Chest radiograph dated 04/03/2025 FINDINGS: Interval placement of a large-bore dual-lumen likely tunneled right internal jugular central venous c atheter with distal tip in the right atrium. Bandlike opacity medial left lower lung zone most consis tent with atelectasis. No other airspace opacities, pulmonary edema, pleural effusion or pneumothorax . Heart size is normal. IMPRESSION: 1. Likely tunneled right internal jugular central venous catheter with distal tip in the right atrium . 2. Bandlike opacity medial left lower lung zone and favor atelectasis over pneumonia. Reviewed, dictated and finalized at location B. IMPRESSION: 1. Likely tunneled right internal jugular central venous catheter with distal t ip in the right atrium. 2. Bandlike opacity medial left lower lung zone and favor atelectasis over pneu monia.
--- NOTE | 2025-04-03 12:57 | ECG_ITS ---
Test Date: 2025-04-03 13:16:21 Measurements Intervals [place] Rate: 106 P: 0 ID: 0 QRS: -5 QRSD: 96 T: 63 QT: 331 QTc: 441 Interpretive Statements SINUS TACHYCARDIA LEFT VENTRICULAR HYPERTROPHY WITH ST-T CHANGE ABNORMAL ECG No previous ECG available for comparison Electronically Signed On 04-03-2025 14:28:16 CDT by Chuck Nava D.O.
[2025-04-03 13:29] LABS: Hematocrit 31.0 % (37.0-47.0); Hemoglobin 9.2 g/dL (12.0-15.0); Immature Granulocyte Percent A 0.3 % (0-0.5); Lymphocytes Absolute Auto 1.26 K/mm3 (0.9-3.2); Mean Corpuscular HGB Conc 29.7 g/dl (32-36); Mean Corpuscular Hemoglobin 28.5 pg (26-34); Mean Corpuscular Volume 96.0 fl (80-100); Nucleated Red Blood Cells Absolute Auto 0.000 K/mm3 (0.0-0.012); Nucleated Red Blood Cells Perc 0.0 % (0.0-0.2); Platelet Count Result 203 k/mm3 (150-375); Red Blood Count 3.23 M/mm3 (4.2-5.4); White Blood Count 11.1 K/mm3 (4.5-10.0)
[2025-04-03 13:39] LABS: Alanine Aminotransferase 12 U/L (6-35); Albumin Level 3.7 g/dL (3.5-5.1); Alkaline Phosphatase 232 U/L (38-126); Anion Gap 11 mmol/L (4-12); Aspartate Amino Transferase 23 U/L (14-36); Bilirubin,Total 0.7 mg/dL (0.2-1.3); Blood Urea Nitrogen 39 mg/dL (7-17); Calcium 11.2 mg/dL (8.4-10.2); Carbon Dioxide 14 mmol/L (22-30); Chloride 117 mmol/L (98-107); Estimated CRCL calculation 6 ml/min; Estimated Glomerular Filt Rate 5; Glucose 128 mg/dL (65-110); Potassium 3.9 mmol/L (3.4-5.0); Sodium 142 mmol/L (137-145); Total Protein 7.1 g/dL (6.3-8.2)
[2025-04-03 14:03] LABS: Anisocytosis 1+; Hypochromasia 1+; Ovalocytes 1+; Schistocytes None Seen
[2025-04-03 14:11] LABS: Creatine Kinase 168 U/L (30-135)
[2025-04-03 14:50] LABS: Add Urine Microscopic? YES; Appearance Urine Clear (Clear); Glucose Urine UA Trace mg/dL (Negative); Leukocyte Esterase Ur Negative LEU/UL (Negative); Need Manual Microscopic Reviewed; Nitrate Urine Negative (Negative); Specific Grav Ur 1.016 (1.001-1.035)
--- NOTE | 2025-04-03 15:23 | ED_ITS ---
HPI - Fall General Chief Complaint: Fall Stated Complaint: increased falls, anxiety Time Seen by Provider: 04/03/25 13:16 History of Present Illness HPI Narrative: Patient is a 64-year-old female who presents ER after family became concerned that patient is having increasing number falls and is more weak and intermittently confused. Patient had a fall last night and had trouble getting up off the floor. She is a poor historian about her medical care. She does report she did not take her blood pressure medicine this morning. No chest pain or chest pressure. Reports previous fall has family concerned because of resulted in her being diagnosed with rhabdomyolysis as well as kidney failure and she required dialysis. She has not followed with her life science teacher and she is no longer on dialysis. Related Data Allergies Allergy/AdvReac Type Severity Reaction Status Date / Time No Known Allergies Allergy Verified 10/08/24 08:04 Review of Systems 2 Review of Systems: All systems reviewed & are unremarkable except as noted in HPI and below Constitutional: Constitutional: Reports no additional constitutional complaints ENT: Reports system reviewed and no additional complaints, except as documented Cardiovascular: Cardiovascular: Reports no additional cardiovascular complaints Respiratory: Respiratory: Reports no additional respiratory complaints Gastrointestinal: Gastrointestinal: Reports no additional gastrointestinal complaints Neurologic: Reports system reviewed and no additional complaints, except as documented [facility] Past Medical History Medical History Cancer of right breast (2004) Status post chemotherapy and mastectomy. Diabetic peripheral neuropathy Obesity (BMI 30-39.9) Essential hypertension End-stage renal disease on hemodialysis Chronic kidney disease due to hypertension and diabetes with final insult kidneys with severe rhabdomyolysis March 2023. Vitamin D deficiency Type 2 diabetes mellitus Anemia Normal colonoscopy (07/2011) Primary hyperparathyroidism (11/2020) Vaginal polyp Depression Anxiety Surgical History Surgical History History of right mastectomy History of hysteroscopy (2020) Family History Family History Mother Family history of lung cancer Hypertension Grandparent Cerebrovascular accident Diabetes mellitus Hypertension Son Family history of cardiovascular disease Heart disease Hypertension Father Unknown family medical history Social History Social History Social History: Surrogate decision maker: Adry Smith (sister). Code status: Full code. Smoking packs per day: 0.5 Smoking cigarettes per day: 10.0 Years smoked: 20 Smoking pack-years: 10.00 Smoking status: Former smoker Tobacco type: cigarettes Second hand tobacco smoke exposure: Yes Alcohol intake: never Alcohol use details: Very seldom Substance use: never Substance use type: does not use Do You Feel Safe in your Home?: Yes Lack of Transportation: No Lack of Food: Never True Current Housing: I Have Housing Concerned About Future Housing: No Difficulty Paying Gas/Electric Bills: No Difficulty Paying for Meds: No Currently Unemployed: No Education: High School Diploma/GED Difficulty w/ Childcare or Family Care: No Additional living arrangements comments: Lives in [place]. Additional occupation/education comments: Retired. Sexual Orientation (if Verbalized by the Patient): Straight or Heterosexual Spiritual care concerns: No Agree to blood products: Yes Exam 2 Narrative: GENERAL: Well-appearing, well-nourished, and in no acute distress. HEAD: Normocephalic, atraumatic ENT: Mucous membranes moist. NECK: Supple. CHEST: Clear to auscultation. No respiratory distress. HEART: Regular rate and rhythm. Normal peripheral pulses. ABDOMEN: Soft, nontender, nondistended. EXTREMITIES: Normal range of motion. No edema. SKIN: Warm, dry, no rash. NEURO: No focal deficits. Alert and oriented x3. PSYCH: Normal mood and affect. Course Course Emergency Course: Patient resting comfortably. Informed of lab and imaging results as were her sisters. Discussed case with Nephrology. Admit to hospitalist service. Concern patient's and has mobility issues related to this remote stroke with encephalomalacia. Also history is that patient's kidney significantly improved however patient clearly has advanced disease. Vital Signs Vital signs: Vital Signs Temperature 98.2 F 04/03/25 12:52 Pulse Rate 112 H 04/03/25 12:52 Respiratory Rate 13 04/03/25 12:52 Blood Pressure 205/102 H 04/03/25 12:52 Pulse Oximetry 100 04/03/25 12:52 Temperature 98.2 F 04/03/25 18:25 Pulse Rate 93 04/03/25 18:25 Respiratory Rate 18 04/03/25 18:25 Blood Pressure 187/90 H 04/03/25 18:25 Pulse Oximetry 100 04/03/25 18:25 Oxygen Delivery Room Air 04/03/25 18:51 MDM - Fall Lab Data 04/03/25 13:23 04/03/25 13:23 Labs: Lab Results 04/03/25 04/03/25 Range/Units 13:23 14:11 WBC 11.1 H (4.5-10.0) K/mm3 RBC 3.23 L (4.2-5.4) M/mm3 Hgb 9.2 L (12.0-15.0) g/dL Hct 31.0 L (37.0-47.0) % MCV 96.0 (80-100) fl MCH 28.5 (26-34) pg MCHC 29.7 L (32-36) g/dl RDW 14.5 (11.5-14.5) % Plt Count 203 (150-375) k/mm3 MPV 10.8 H (7.4-10.4) fl Immature Gran % (Auto) 0.3 (0-0.5) % Neut % (Auto) 79.6 H (45.5-73.1) % Lymph % (Auto) 11.4 L (18.3-44.2) % [place] % (Auto) 7.7 (2.6-8.5) % Eos % (Auto) 0.4 (0-4.4) % Baso % (Auto) 0.6 (0.2-1.2) % Lymph # (Auto) 1.26 (0.9-3.2) K/mm3 [place] # (Auto) 0.9 H (0.1-0.6) K/mm3 Eos # (Auto) 0.0 (0-0.3) K/mm3 Baso # (Auto) 0.1 (0.0-0.1) K/mm3 Abs Immat Gran (auto) 0.03 (0.00-0.031) K/mm3 Absolute Neuts (auto) 8.8 H (1.3-6.7) K/mm3 Absolute Nucleated RBC 0.000 (0.0-0.012) K/mm3 Band Neutrophils % Not Reportable Nucleated RBC % 0.0 (0.0-0.2) % Platelet Estimate Adequate (Adequate) Hypochromasia 1+ Anisocytosis 1+ Ovalocytes 1+ Schistocytes None seen Sodium 142 (137-145) mmol/L Potassium 3.9 (3.4-5.0) mmol/L Chloride 117 H (98-107) mmol/L Carbon Dioxide 14 L (22-30) mmol/L Anion Gap 11 (4-12) mmol/L BUN 39 H (7-17) mg/dL Creatinine 8.70 H (0.7-1.0) mg/dL Estim Creat Clear Calc 6 ml/min Estimated GFR 5 L (59 - ) Glucose 128 H (65-110) mg/dL Calcium 11.2 H (8.4-10.2) mg/dL Total Bilirubin 0.7 (0.2-1.3) mg/dL AST 23 (14-36) U/L ALT 12 (6-35) U/L Alkaline Phosphatase 232 H (38-126) U/L Total Creatine Kinase 168 H (30-135) U/L Total Protein 7.1 (6.3-8.2) g/dL Albumin 3.7 (3.5-5.1) g/dL Urine Color Yellow (Yellow) Urine Appearance Clear (Clear) Urine pH 6.0 (5.0-9.0) Ur Specific [place] 1.016 (1.001-1.035) Urine Protein 4+ H (Negative) mg/dL Urine Glucose (UA) Trace H (Negative) mg/dL Urine Ketones 1+ H (Negative) mg/dL Ur Blood (Man) 2+ H (Negative) Urine Nitrate Negative (Negative) Urine Bilirubin Negative (Negative) Urine Urobilinogen 1.0 (<2.0) mg/dL Add Ur Microanalysis Reviewed Leukocyte Esterase Rfl Negative (Negative) RAJI/UL Urine RBC 0-2 (0-2) /hpf Urine WBC 0-5 (0-3) /hpf Ur Squamous Epith Cells None seen (Few) /hpf Urine Bacteria None seen /hpf Urine Casts 11-20 Imaging Data Radiologist's impression: ITS Impressions Head CT 04/03/25 13:41 IMPRESSION: 1. No fracture or acute intracranial process. 2. Moderate-sized region of encephalomalacia in the right parieto-occipital region consistent with sequela of old infarct. 3. Moderate scattered nonspecific white matter hypoattenuation consistent with chronic small vessel ischemic disease. 4. Interval development of a salt and pepper appearance to the skull typical of hyperparathyroidism or renal osteodystrophy. Chest X-Ray 04/03/25 13:54 IMPRESSION: No acute process. ECG Data EKG #1: ECG completion date: 04/03/25 ECG completion time: 13:16 EKG Interpretation: tachycardia (106) and atrial fibrillation Discharge Plan Discharge Clinical Impression: Hypertension, uncontrolled, CKD (chronic kidney disease) Patient Disposition: Still a Patient Condition: Stable
--- NOTE | 2025-04-03 18:07 | PM.IMHP ---
H&P: HPI History of Present Illness Date/Time: 04/03/25 18:07 Chief Complaint: Frequent Falls, Generalized Weakness Narrative: 64 y/o F with PMH of CKD, SAEID requiring temporary dialysis, chronic anemia, type 2 diabetes, breast cancer s/p chemotherapy mastectomy, and hypertension presents here with frequent falls and generalized weakness. The patient presents here from home via EMS for further evaluation of frequent falls and generalized weakness. She reports this has been ongoing for the past week. Initially started with a slip which turned into a fall. Patient reports she had a big fall last night which is what prompted her to seek care. States she has tended to fall to the right resulting in her falling onto her right shoulder which she reports is tender. She reports her left knee tends to give her trouble and shakes she attributed this to arthritis. She denies any focal numbness, focal weakness, changes in vision, changes in speech, dizziness, headache, chest pain, palpitations, or shortness of breath. She does report she has been more forgetful lately, states her family may say its been going on for some time but she feels it has been worse in the last week. She has no known hx of stroke. She has a hx of rhabdomyolysis resulting in a significant SAEID requiring transient dialysis for a couple months. She has been off dialysis for approx 1 year. She last saw a property and equipment clerk in April of 2024, has no scheduled appt. She reports her urine output is unchanged. Initial VS at presentation: 98.2? F, HR 112, RR 13, 205/102, and 100% on RA. ED workup showed: No leukocytosis, hemoglobin 9.2 (9.2 in 2023), creatinine 8.7, BUN 39, GFR 5 (6.8, BUN 35 of, and GFR 9 in June of 2024), calcium 11.2 in the setting of normal a few min, CK 168, alk-phos 232, glucose 128. UA showed 4+ protein, trace glucose, 1+ ketones, 2+ blood. Head CT showed no fracture or acute intracranial process, moderate size region of encephalomalacia in the right parieto-occipital region consistent with sequela of old infarct, moderate scattered nonspecific white matter hypoattenuation consistent with chronic small-vessel ischemic disease, interval development of a salt and pepper appearance of the skull typical of hyperparathyroidism or renal osteodystrophy. EKG showed sinus tachycardia, LVH with ST-T change. Review of Systems Review of Systems: All systems reviewed & are unremarkable except as noted in HPI and below PMFSH Past Medical History Medical History Cancer of right breast (2004) Status post chemotherapy and mastectomy. Diabetic peripheral neuropathy Obesity (BMI 30-39.9) Essential hypertension End-stage renal disease on hemodialysis Chronic kidney disease due to hypertension and diabetes with final insult kidneys with severe rhabdomyolysis March 2023. Vitamin D deficiency Type 2 diabetes mellitus Anemia Normal colonoscopy (07/2011) Primary hyperparathyroidism (11/2020) Vaginal polyp Depression Anxiety Surgical History Surgical History History of right mastectomy History of hysteroscopy (2020) Family History Family History Mother Family history of lung cancer Hypertension Grandparent Cerebrovascular accident Diabetes mellitus Hypertension Son Family history of cardiovascular disease Heart disease Hypertension Father Unknown family medical history Social History Social History Social History: Surrogate decision maker: Adry Smith (sister). Code status: Full code. Smoking packs per day: 0.5 Smoking cigarettes per day: 10.0 Years smoked: 20 Smoking pack-years: 10.00 Smoking status: Former smoker Tobacco type: cigarettes Second hand tobacco smoke exposure: Yes Alcohol intake: never Alcohol use details: Very seldom Substance use: never Substance use type: does not use Do You Feel Safe in your Home?: Yes Lack of Transportation: No Lack of Food: Never True Current Housing: I Have Housing Concerned About Future Housing: No Difficulty Paying Gas/Electric Bills: No Difficulty Paying for Meds: No Currently Unemployed: No Education: High School Diploma/GED Difficulty w/ Childcare or Family Care: No Additional living arrangements comments: Lives in [place]. Additional occupation/education comments: Retired. Sexual Orientation (if Verbalized by the Patient): Straight or Heterosexual Spiritual care concerns: No Agree to blood products: Yes Meds Home Medications and Allergies Home Medications ?Medication ?Instructions ?Recorded ?Confirmed ?Type sodium bicarbonate 650 mg tablet 1,300 mg (2 x 650 mg) PO BIDPC #60 05/08/24 04/03/25 Rx tabs carvedilol 12.5 mg tablet 12.5 mg PO Q12H #180 tabs 08/01/24 04/03/25 Rx venlafaxine 150 mg See Rx Instructions .Route 12/04/24 04/03/25 Rx capsule,extended release 24 hr .COMPLEX #90 caps Allergies Allergy/AdvReac Type Severity Reaction Status Date / Time No Known Allergies Allergy Verified 10/08/24 08:04 Vital Signs Vital Signs - 24 hr 04/03/25 12:52 04/03/25 15:43 04/03/25 15:45 Temperature 98.2 F Pulse Rate 112 H 91 93 Respiratory Rate 13 15 10 L Blood Pressure 205/102 H Pulse Oximetry 100 04/03/25 15:47 04/03/25 16:00 04/03/25 16:02 Temperature Pulse Rate 94 92 93 Respiratory Rate 13 13 14 Blood Pressure 190/97 H 180/85 H Pulse Oximetry 04/03/25 16:18 04/03/25 16:20 04/03/25 16:30 Temperature Pulse Rate 103 H 91 88 Respiratory Rate 26 H 13 14 Blood Pressure 217/99 H Pulse Oximetry 100 100 100 04/03/25 16:32 04/03/25 16:45 04/03/25 16:48 Temperature Pulse Rate 89 94 93 Respiratory Rate 13 18 12 Blood Pressure 189/96 H 207/94 H Pulse Oximetry 100 100 100 04/03/25 16:52 04/03/25 17:00 04/03/25 17:02 Temperature Pulse Rate 93 93 92 Respiratory Rate 13 15 Blood Pressure 199/119 H Pulse Oximetry 100 100 04/03/25 17:15 04/03/25 17:17 04/03/25 17:18 Temperature Pulse Rate 91 90 89 Respiratory Rate 17 20 22 H Blood Pressure 189/81 H Pulse Oximetry 100 100 100 04/03/25 17:30 04/03/25 17:32 04/03/25 17:48 Temperature Pulse Rate 87 88 88 Respiratory Rate 14 18 18 Blood Pressure 183/91 H 193/87 H Pulse Oximetry 100 100 100 Exam Const: General: comfortable and no acute distress Other: , female, nontoxic appearance HENMT: Face/Nose/Sinus: Normal nares present Mouth: Yes moist mucous membranes Eyes: General: appearance normal, both eyes and all related structures Sclera: sclerae normal Pupils: Equal, round and reactive pupils present EOM: EOMs intact bilaterally Resp: Effort & Inspection: normal respiratory effort Auscultation: clear to auscultation bilaterally Cardio: Rate: regular rate Rhythm: regular rhythm Other: S1-S2 present without murmur, rub, ectopy GI: Other: Abdomen soft, nondistended, nontender. Normoactive bowel sounds in all quadrants. Skin: General skin exam: normal color and no rashes or lesions noted Wounds: no wounds Neuro: Speech: normal speech Motor exam (neuro): 5/5 motor strength present throughout Sensory Exam: normal sensation Other: A&O x4, no facial droop or dysarthria appreciated. No gaze palsy. Extrem: General: normal to inspection Psych: Mental Status: mental status grossly normal Affect: normal affect Other: Good insight and judgment, pleasant H&P: Results Labs Labs: Short CBC 04/03/25 Range/Units 13:23 WBC 11.1 H (4.5-10.0) K/mm3 Hgb 9.2 L (12.0-15.0) g/dL Hct 31.0 L (37.0-47.0) % Plt Count 203 (150-375) k/mm3 BMP 04/03/25 13:23 Sodium 142 Potassium 3.9 Chloride 117 H Carbon Dioxide 14 L BUN 39 H Creatinine 8.70 H Glucose 128 H Calcium 11.2 H Cardiac Enzymes 04/03/25 Range/Units 13:23 Total Creatine Kinase 168 H (30-135) U/L Liver Function 04/03/25 Range/Units 13:23 Total Bilirubin 0.7 (0.2-1.3) mg/dL AST 23 (14-36) U/L ALT 12 (6-35) U/L Alkaline Phosphatase 232 H (38-126) U/L Albumin 3.7 (3.5-5.1) g/dL Urine 04/03/25 Range/Units 14:11 Urine Color Yellow (Yellow) Urine Appearance Clear (Clear) Urine pH 6.0 (5.0-9.0) Ur Specific [place] 1.016 (1.001-1.035) Urine Protein 4+ H (Negative) mg/dL Urine Glucose (UA) Trace H (Negative) mg/dL Assessment and Plan Assessment and plan (1) Chronic kidney disease, stage 5: Code(s): N18.5 - Chronic kidney disease, stage 5 Status: Acute Assessment and Plan: - previous history of SAEID/rhabdomyolysis resulting in need for temporary dialysis. Per last Nephrology note in June of 2024, patient had been off dialysis. - creatinine 8.7, BUN 39, GFR 5. Previously 5.0, BUN 35, GFR 9 in June of 2024. - nephrology consulted - monitor electrolyte - renal diet - check renal ultrasound, CK, urine creatinine, urine sodium, total protein/creatinine, urea, Mag, phos - continue home sodium bicarbonate p.o. - trend renal function (2) Fall: Qualifiers: Encounter type: initial encounter Qualified Code(s): W19.XXXA - Unspecified fall, initial encounter Code(s): W19.XXXA - Unspecified fall, initial encounter Status: Acute Assessment and Plan: - reported frequent falls for the past week - new CVA seen on CT, not previously appreciated on brain MRI that was completed in April of 2023. Will check MR brain with/without to better assess. - PT/OT evaluation for rehab services - will hold off on care coordination consultation, await PT/OT recommendations - fall precaution - UA and CXR negative for findings for infection (3) Anemia: Qualifiers: Anemia type: due to chronic kidney disease Chronic kidney disease stage: stage 5 (GFR < 15), not on chronic dialysis Qualified Code(s): N18.5 - Chronic kidney disease, stage 5; D63.1 - Anemia in chronic kidney disease Code(s): D64.9 - Anemia, unspecified Status: Acute Assessment and Plan: - Hgb 9.2, previously 9.2 in June 2024 - Hx of CKD stage 4, anemia in setting of chronic disease - transfuse if <7 - trend CBC (4) Hypertension: Qualifiers: Hypertension type: secondary to other renal disorders Qualified Code(s): I15.1 - Hypertension secondary to other renal disorders; N28.89 - Other specified disorders of kidney and ureter Code(s): I10 - Essential (primary) hypertension Status: Chronic Assessment and Plan: - chronic, previously not well controlled. Arrived 205/102. Currently a /. - continue home medications: Carvedilol - monitor (5) Diet-controlled type 2 diabetes mellitus: Code(s): E11.9 - Type 2 diabetes mellitus without complications Status: Chronic Assessment and Plan: - not currently on any diabetic medications, diet controlled - initial glucose 128 - A1c 6.0 on 05/02/2024, update Plan Diet: Renal GI Prophylaxis: Not currently indicated DVT Prophylaxis: SCDs IV fluids: None Lines/Tubes: Peripheral IV Code Status: Full code Quality VTE Prophylaxis VTE prophylaxis: mechanical ordered Hospitalist MIPS Advance Care Plan I have confirmed that the patient's Advanced Care Plan is present, code status is documented, or surrogate decision maker is listed in patient medical record.: Yes Medication Reconciliation I have utilized all available resources to obtain, update and review the patients current medications (includes all prescriptions, OTC, herbals, cannabis, and nutritional supplements).: Yes
--- NOTE | 2025-04-03 18:22 | ADMGEN ---
This patient, Gena Pierre, was admitted to IMU Room 206-02 at 1753. Patient/family oriented to hospital policies and general routines including ID bracelet, bed and alarms, visiting hours, pain management, procedures, bathroom and other care routines, personal items, smoking policy, room service/diet, and visiting hours. Information on how to activate the Rapid Response Team has been discussed. Patient/Family are encouraged to report perceived risks to care and to ask questions if they do not understand what they are told or what they should do.
[2025-04-03] MEDS: SODIUM BICARBONATE TAB 650 MG TABLET 1300 MG PO (20:22)
[2025-04-04] VITALS (11 sets, daily range): BP systolic 143–179; BP diastolic 73–79; PULSE 75–87; RESP 16–18; TEMP 36.7–37; O2SAT 100
[2025-04-04 00:12] LABS: Urea Random Urine 332 MG/DL
[2025-04-04 02:20] LABS: Total Protein Urine Random > 600 mg/dL; Ur Ttl Prot Creatinine Ratio > 5.85 mg/mg (0-0.20)
[2025-04-04 02:55] LABS: Urine Eos QC 2nd Tech Confirmed
[2025-04-04 04:27] LABS: Hematocrit 26.9 % (37.0-47.0); Hemoglobin 8.0 g/dL (12.0-15.0); Immature Granulocyte Percent A 0.3 % (0-0.5); Lymphocytes Absolute Auto 1.86 K/mm3 (0.9-3.2); Mean Corpuscular HGB Conc 29.7 g/dl (32-36); Mean Corpuscular Hemoglobin 28.5 pg (26-34); Mean Corpuscular Volume 95.7 fl (80-100); Nucleated Red Blood Cells Absolute Auto 0.000 K/mm3 (0.0-0.012); Nucleated Red Blood Cells Perc 0.0 % (0.0-0.2); Platelet Count Result 177 k/mm3 (150-375); Red Blood Count 2.81 M/mm3 (4.2-5.4); White Blood Count 9.4 K/mm3 (4.5-10.0)
[2025-04-04 04:42] LABS: Alanine Aminotransferase 8 U/L (6-35); Albumin Level 3.1 g/dL (3.5-5.1); Alkaline Phosphatase 191 U/L (38-126); Anion Gap 9 mmol/L (4-12); Aspartate Amino Transferase 19 U/L (14-36); Bilirubin,Total 0.6 mg/dL (0.2-1.3); Blood Urea Nitrogen 40 mg/dL (7-17); Calcium 10.5 mg/dL (8.4-10.2); Carbon Dioxide 16 mmol/L (22-30); Chloride 114 mmol/L (98-107); Estimated CRCL calculation 7 ml/min; Estimated Glomerular Filt Rate 5; Glucose 92 mg/dL (65-110); Magnesium 2.2 mg/dL (1.6-2.3); Potassium 3.2 mmol/L (3.4-5.0); Sodium 139 mmol/L (137-145); Total Protein 6.0 g/dL (6.3-8.2)
[2025-04-04 08:35] LABS: Iron 60 ug/dL (37-170)
[2025-04-04 08:50] LABS: Percent Iron Saturation 35 % (20-50)
[2025-04-04] MEDS: VENLAFAXINE HCL XR 75 MG CAP.ER.24H 150 MG PO (09:01)
[2025-04-04] MEDS: SODIUM BICARBONATE TAB 650 MG TABLET 1300 MG PO ×2 (09:02→17:46)
[2025-04-04 09:13] LABS: Ferritin 516.00 ng/mL (11.1-264)
--- NOTE | 2025-04-04 11:37 | PC.NURSE ---
arrived back from MRI. Very weak, assist times 2 up with cane back to walker. Patient is forgetful and this forgetfulness appears to get in the way of how well she transitions from one position to the next including standing up. She questioned if she was in the right room also when she returned as well. Reassured her that she is infact in the right room.
--- NOTE | 2025-04-04 12:45 | P.CONNP_ITS ---
Assessment and Plan Assessment and plan (1) Stage 5 chronic kidney disease: Code(s): N18.5 - Chronic kidney disease, stage 5 Status: Acute Assessment and Plan: * suspect progression of disease rather than an acute insult * last creatinine was 5.0mg/dl (with a GFR of 9cc/min) in June 2024 * was scheduled for AV access placement in anticipation of SO[employer]EDER/hemodialysis but this never occurred due to insurance issues * she also did not follow-up with Dr. Colmenares after her June 2024 appointment... 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 several years ago * testing noted on this admission: * renal ultrasound c/w medical renal disease * urine eosinophils negative * nephrotic range proteinuria * urine electrolytes non-prerenal * no urgent need for SO[employer]ER/dialysis at this time but she will need in the near future * follow trend of repeat labs and UOP (2) Fall: Qualifiers: Encounter type: initial encounter Qualified Code(s): W19.XXXA - Unspecified fall, initial encounter Code(s): W19.XXXA - Unspecified fall, initial encounter Status: Acute Assessment and Plan: * frequent falls x 1 week prior to admission * CT of head noted: * no fracture or acute intracranial process * moderate-sized region of encephalomalacia in the right parieto-occipital region consistent with sequela of old infarct * moderate scattered nonspecific white matter hypoattenuation consistent with chronic small vessel ischemic disease * interval development of a salt and pepper appearance to the skull typical of hyperparathyroidism or renal osteodystrophy * MRI of brain ordered * consider Neurology consultation * fall precautions * PT/OT evaluation (3) Hypertension: Qualifiers: Hypertension type: secondary to other renal disorders Qualified Code(s): I15.1 - Hypertension secondary to other renal disorders; N28.89 - Other specified disorders of kidney and ureter Code(s): I10 - Essential (primary) hypertension Status: Chronic Assessment and Plan: * poor control on admission * resumed on home medications with improvement * given advanced CKD, would avoid over control of BP * follow trend of hemodynamics (4) Metabolic acidosis: Code(s): E87.20 - Acidosis, unspecified Status: Acute Assessment and Plan: * secondary to advanced CKD * on oral sodium bicarbonate to compensate (5) Anemia: Qualifiers: Anemia type: due to chronic kidney disease Chronic kidney disease stage: stage 5 (GFR < 15), not on chronic dialysis Qualified Code(s): N18.5 - Chronic kidney disease, stage 5; D63.1 - Anemia in chronic kidney disease Code(s): D64.9 - Anemia, unspecified Status: Acute Assessment and Plan: * likely related advanced CKD * anemia studies with adequate iron stores * consider empiric MARCO while hospitalized * PRBC transfusion per protocol * follow trend of H/H (6) Hypercalcemia: Code(s): E83.52 - Hypercalcemia Status: Acute Assessment and Plan: * elevated on admission but better currently * extensive outpatient work-up reviewed: * 24 hour urine immunofixation with assymetrical beta and gamma regions * 24hr urine calcium + creatinine suggestive of primary or secondary hyperparathyroidism * Vitamin A, THOM level, and PTHrp okay * Nuc Med Parathyroid scan negative * suspect a combination of primary mixed with secondary hyperparathyroidism * follow trend of calcium level (7) Diet-controlled type 2 diabetes mellitus: Code(s): E11.9 - Type 2 diabetes mellitus without complications Status: Chronic Assessment and Plan: * follow accu-cheks * not currently on any diabetic medications I will continue to follow the patient with you while he remains hospitalized and make further recommendations as deemed necessary. Thank you for allowing me to participate in the care of this patient. L History of Present Illness Reason for Consult Consult date: 04/04/25 Reason for consult: chronic renal failure Chief Complaint Chief complaint: uncontrolled htn,chronic kidney disease History of Present Illness Narrative: The patient is a 62-year-old female with a past medical history as outlined below who presented to [facility] Emergency room for frequent falls. The patient presents here from home via EMS for further evaluation of frequent falls and generalized weakness. She reports this has been ongoing for the past week. Initially started with a slip which turned into a fall. Patient reports she had a big fall last night which is what prompted her to seek care. States she has tended to fall to the right resulting in her falling onto her right shoulder which she reports is tender. She reports her left knee tends to give her trouble and shakes she attributed this to arthritis. She denies any focal numbness, focal weakness, changes in vision, changes in speech, dizziness, headache, chest pain, palpitations, or shortness of breath. She does report she has been more forgetful lately, states her family may say its been going on for some time but she feels it has been worse in the last week. She has no known hx of stroke. She presented to the ER for further assessment. Initial VS at presentation: 98.2? F, HR 112, RR 13, 205/102, and 100% on RA. ED workup showed: No leukocytosis, hemoglobin 9.2 (9.2 in 2023), creatinine 8.7, BUN 39, GFR 5 (6.8, BUN 35 of, and GFR 9 in June of 2024), calcium 11.2 in the setting of normal a few min, CK 168, alk-phos 232, glucose 128. UA showed 4+ protein, trace glucose, 1+ ketones, 2+ blood. Head CT showed no fracture or acute intracranial process, moderate size region of encephalomalacia in the right parieto-occipital region consistent with sequela of old infarct, moderate scattered nonspecific white matter hypoattenuation consistent with chronic small-vessel ischemic disease, interval development of a salt and pepper appearance of the skull typical of hyperparathyroidism or renal osteodystrophy. EKG showed sinus tachycardia, LVH with ST-T change. Renal consultation was requested due to her chronic kidney disease requiring renal replacement therapy/dialysis. The patient is well known to me as I took care of her during her previous hospitalizations which required the initiation of renal replacement therapy / dialysis thought to be secondary to her severe rhabdomyolysis. she recovered from this acute illness but had left over chronic kidney disease and is being managed by Dr. Colmenares. She last saw him in the office in June of 2024 and given the ongoing progressive decline in her kidney function, it was felt that she would eventually require renal replacement therapy again. She was referred for outpatient AV access placement but apparently this did not occur due to insurance issues. Furthermore, it would seem that she was lost to follow up with him in the office as well. Her labs on admission show evidence of disease progression of her kidney disease although she has no critical electrolyte abnormalities or evidence of volume overload but does have a mild metabolic acidosis which was present even in the past. Currently, at the time my visit, she appears in no acute distress.. Review of Systems 2 Review of Systems: As per HPI. [facility] Past Medical History Medical History (Updated 04/04/25 @ 18:39 by James Millan MD) Fall Acute right arterial ischemic stroke, MCA (middle cerebral artery) Chronic kidney disease, stage 5 Cancer of right breast (2004) Status post chemotherapy and mastectomy. Diabetic peripheral neuropathy Obesity (BMI 30-39.9) Essential hypertension End-stage renal disease on hemodialysis Chronic kidney disease due to hypertension and diabetes with final insult kidneys with severe rhabdomyolysis March 2023. Vitamin D deficiency Type 2 diabetes mellitus Anemia Normal colonoscopy (07/2011) Primary hyperparathyroidism (11/2020) Vaginal polyp Depression Anxiety Surgical History Surgical History History of right mastectomy History of hysteroscopy (2020) Family History Family History Mother Family history of lung cancer Hypertension Grandparent Cerebrovascular accident Diabetes mellitus Hypertension Son Family history of cardiovascular disease Heart disease Hypertension Father Unknown family medical history Social History Social History Social History: Surrogate decision maker: Adry Smith (sister). Code status: Full code. Smoking packs per day: 0.5 Smoking cigarettes per day: 10.0 Years smoked: 20 Smoking pack-years: 10.00 Smoking status: Former smoker Tobacco type: cigarettes Second hand tobacco smoke exposure: Yes Alcohol intake: never Alcohol use details: Very seldom Substance use: never Substance use type: does not use Do You Feel Safe in your Home?: Yes Lack of Transportation: No Lack of Food: Never True Current Housing: I Have Housing Concerned About Future Housing: No Difficulty Paying Gas/Electric Bills: No Difficulty Paying for Meds: No Currently Unemployed: No Education: High School Diploma/GED Difficulty w/ Childcare or Family Care: No Additional living arrangements comments: Lives in [place]. Additional occupation/education comments: Retired. Sexual Orientation (if Verbalized by the Patient): Straight or Heterosexual Spiritual care concerns: No Agree to blood products: Yes Meds Home Medications and Allergies Home Medications ?Medication ?Instructions ?Recorded ?Confirmed ?Type sodium bicarbonate 650 mg tablet 1,300 mg (2 x 650 mg) PO BIDPC #60 05/08/24 04/03/25 Rx tabs carvedilol 12.5 mg tablet 12.5 mg PO Q12H #180 tabs 08/01/24 04/03/25 Rx venlafaxine 150 mg See Rx Instructions .Route 12/04/24 04/03/25 Rx capsule,extended release 24 hr .COMPLEX #90 caps Allergies Allergy/AdvReac Type Severity Reaction Status Date / Time No Known Allergies Allergy Verified 10/08/24 08:04 Vital Signs Vital Signs Temp Pulse Resp BP Pulse Ox O2 Del Method FiO2 04/04/25 12:00 98.1 F 87 16 148/76 H 100 04/04/25 10:00 79 04/04/25 09:02 80 04/04/25 08:00 87 04/04/25 08:00 80 16 100 Room Air 21 04/04/25 08:00 98.6 F 77 16 173/77 H 100 04/04/25 06:00 75 04/04/25 04:00 98.1 F 78 16 179/79 H 100 04/04/25 04:00 85 04/04/25 04:00 Room Air 04/04/25 02:00 83 04/04/25 00:00 78 04/04/25 00:00 Room Air 04/03/25 23:51 98.3 F 84 16 161/67 H 100 04/03/25 22:00 83 04/03/25 22:00 167/83 H 04/03/25 21:23 80 20 95 Room Air 21 04/03/25 20:22 83 04/03/25 20:00 77 04/03/25 20:00 98.4 F 76 15 191/88 H 100 04/03/25 18:51 Room Air 04/03/25 18:25 98.2 F 93 18 187/90 H 100 04/03/25 17:48 88 18 193/87 H 100 04/03/25 17:32 88 18 183/91 H 100 04/03/25 17:30 87 14 100 Exam 2 Narrative: GENERAL APPEARANCE: elderly but well developed well nourished female in no acute distress HEENT: normocephalic, atraumatic, normal conjunctiva and sclera, nares patient NECK: no lymphadenopathy, thyromegaly, or JVD MOUTH: normal lips, teeth, and gums CARDIOVASCULAR: RRR, normal S1 and S2, no rub RESPIRATORY: clear to auscultation ABDOMEN: soft, nontender, nondistended, positive bowel sounds present EXTREMITIES: no evidence of cyanosis, clubbing, or edema NEUROLOGICAL: alert and oriented x 3; CN II - XII intact bilaterally; no focal deficits noted Results Lab Results 04/05/25 04:49 04/05/25 04:49 Lab results: Most recent lab results Calcium 10.5 mg/dL (8.4-10.2) H 04/04/25 04:17 Phosphorus 3.9 mg/dL (2.5-4.5) 04/04/25 04:17 Magnesium 2.2 mg/dL (1.6-2.3) 04/04/25 04:17 Urine Creatinine 102.5 mg/dL 04/03/25 23:52 Urine Creatinine 104.7 mg/dL 04/03/25 23:52
--- NOTE | 2025-04-04 16:23 | PM.IMPN ---
Progress Note: A&P Assessment and Plan (1) Chronic kidney disease, stage 5: Code(s): N18.5 - Chronic kidney disease, stage 5 Status: Acute Assessment and Plan: - previous history of SAEID/rhabdomyolysis resulting in need for temporary dialysis. Per last Nephrology note in June of 2024, patient had been off dialysis. - creatinine 8.7, BUN 39, GFR 5. Previously 5.0, BUN 35, GFR 9 in June of 2024. Cr 8.06, us renal normal patient noted she was once on dialysis about a year ago Nephrology consulted (2) Fall: Qualifiers: Encounter type: initial encounter Qualified Code(s): W19.XXXA - Unspecified fall, initial encounter Code(s): W19.XXXA - Unspecified fall, initial encounter Status: Acute Assessment and Plan: - reported frequent falls for the past week - new CVA seen on CT, not previously appreciated on brain MRI that was completed in April of 2023. Will check MR brain with/without to better assess. - PT/OT evaluation for rehab services - will hold off on care coordination consultation, await PT/OT recommendations - fall precaution - UA and CXR negative for findings for infection (3) Anemia: Qualifiers: Anemia type: due to chronic kidney disease Chronic kidney disease stage: stage 5 (GFR < 15), not on chronic dialysis Qualified Code(s): N18.5 - Chronic kidney disease, stage 5; D63.1 - Anemia in chronic kidney disease Code(s): D64.9 - Anemia, unspecified Status: Acute Assessment and Plan: - Hgb 9.2, previously 9.2 in June 2024 - Hx of CKD stage 4, anemia in setting of chronic disease - transfuse if <7 - trend CBC (4) Hypertension: Qualifiers: Hypertension type: secondary to other renal disorders Qualified Code(s): I15.1 - Hypertension secondary to other renal disorders; N28.89 - Other specified disorders of kidney and ureter Code(s): I10 - Essential (primary) hypertension Status: Chronic Assessment and Plan: - chronic, previously not well controlled. Arrived . Currently a 187/90. - continue home medications: Carvedilol - monitor (5) Diet-controlled type 2 diabetes mellitus: Code(s): E11.9 - Type 2 diabetes mellitus without complications Status: Chronic Assessment and Plan: - not currently on any diabetic medications, diet controlled - initial glucose 128 - A1c 6.0 on 05/02/2024, update Plan Acute stroke patient presented after a fall MRI showed acute right thalamus infarct Carotid doppler, ECHO , A1c adn lipid profile PT/OT/ST Neurology consulted Aspirin and Plavix ordered Diet: Renal DVT Prophylaxis: Sq heparin Code Status: Full code Subjective Date/time seen: 04/04/25 16:23 Interval history: Comfortable at bedside MRI brain showed acute stroke Review of Systems Review of Systems: All systems reviewed & are unremarkable except as noted in HPI and below Exam Const: General: comfortable and no acute distress Other: , female, nontoxic appearance HENMT: Face/Nose/Sinus: Normal nares present Mouth: Yes moist mucous membranes Eyes: General: appearance normal, both eyes and all related structures Sclera: sclerae normal Pupils: Equal, round and reactive pupils present EOM: EOMs intact bilaterally Resp: Effort & Inspection: normal respiratory effort Auscultation: clear to auscultation bilaterally Cardio: Rate: regular rate Rhythm: regular rhythm Other: S1-S2 present without murmur, rub, ectopy GI: Other: Abdomen soft, nondistended, nontender. Normoactive bowel sounds in all quadrants. Skin: General skin exam: normal color and no rashes or lesions noted Wounds: no wounds Neuro: Cranial nerves: Yes Equal, round and reactive pupils present Speech: normal speech Motor exam (neuro): 5/5 motor strength present throughout Sensory Exam: normal sensation Other: A&O x4, no facial droop or dysarthria appreciated. No gaze palsy. Extrem: General: normal to inspection Psych: Mental Status: mental status grossly normal Affect: normal affect Other: Good insight and judgment, pleasant Objective Data Vital Signs Vital Signs: Vital Signs - 24 hr 04/03/25 16:30 04/03/25 16:32 04/03/25 16:45 Temperature Pulse Rate 88 89 94 Respiratory Rate 14 13 18 Blood Pressure 189/96 H Pulse Oximetry 100 100 100 Oxygen Delivery Fraction of Inspired Oxygen 04/03/25 16:48 04/03/25 16:52 04/03/25 17:00 Temperature Pulse Rate 93 93 93 Respiratory Rate 12 13 Blood Pressure 207/94 H Pulse Oximetry 100 100 Oxygen Delivery Fraction of Inspired Oxygen 04/03/25 17:02 04/03/25 17:15 04/03/25 17:17 Temperature Pulse Rate 92 91 90 Respiratory Rate 15 17 20 Blood Pressure 199/119 H 189/81 H Pulse Oximetry 100 100 100 Oxygen Delivery Fraction of Inspired Oxygen 04/03/25 17:18 04/03/25 17:30 04/03/25 17:32 Temperature Pulse Rate 89 87 88 Respiratory Rate 22 H 14 18 Blood Pressure 183/91 H Pulse Oximetry 100 100 100 Oxygen Delivery Fraction of Inspired Oxygen 04/03/25 17:48 04/03/25 18:25 04/03/25 18:51 Temperature 98.2 F Pulse Rate 88 93 Respiratory Rate 18 18 Blood Pressure 193/87 H 187/90 H Pulse Oximetry 100 100 Oxygen Delivery Room Air Fraction of Inspired Oxygen 04/03/25 20:00 04/03/25 20:00 04/03/25 20:22 Temperature 98.4 F Pulse Rate 76 77 83 Respiratory Rate 15 Blood Pressure 191/88 H Pulse Oximetry 100 Oxygen Delivery Fraction of Inspired Oxygen 04/03/25 21:23 04/03/25 22:00 04/03/25 22:00 Temperature Pulse Rate 80 83 Respiratory Rate 20 Blood Pressure 167/83 H Pulse Oximetry 95 Oxygen Delivery Room Air Fraction of Inspired Oxygen 04/03/25 23:51 04/04/25 00:00 04/04/25 00:00 Temperature 98.3 F Pulse Rate 84 78 Respiratory Rate 16 Blood Pressure 161/67 H Pulse Oximetry 100 Oxygen Delivery Room Air Fraction of Inspired Oxygen 04/04/25 02:00 04/04/25 04:00 04/04/25 04:00 Temperature Pulse Rate 83 85 Respiratory Rate Blood Pressure Pulse Oximetry Oxygen Delivery Room Air Fraction of Inspired Oxygen 04/04/25 04:00 04/04/25 06:00 04/04/25 08:00 Temperature 98.1 F 98.6 F Pulse Rate 78 75 77 Respiratory Rate 16 16 Blood Pressure 179/79 H 173/77 H Pulse Oximetry 100 100 Oxygen Delivery Fraction of Inspired Oxygen 04/04/25 08:00 04/04/25 08:00 04/04/25 09:02 Temperature Pulse Rate 80 87 80 Respiratory Rate 16 Blood Pressure Pulse Oximetry 100 Oxygen Delivery Room Air Fraction of Inspired Oxygen 21 04/04/25 10:00 04/04/25 12:00 04/04/25 12:00 Temperature 98.1 F Pulse Rate 79 87 78 Respiratory Rate 16 Blood Pressure 148/76 H Pulse Oximetry 100 Oxygen Delivery Fraction of Inspired Oxygen 04/04/25 14:35 Temperature Pulse Rate Respiratory Rate Blood Pressure Pulse Oximetry Oxygen Delivery Room Air Fraction of Inspired Oxygen Intake/Output Intake/Output: Intake & Output 04/01/25 04/02/25 04/03/25 04/04/25 23:59 23:59 23:59 23:59 Intake Total 1320 Output Total 55 Balance -55 1320 Meds/Results Medications: Active Medications Generic Name Dose Route Start Last Admin Trade Name Freq PRN Reason Stop Dose Admin Acetaminophen 650 mg 04/03/25 16:59 Acetaminophen 325 Mg Tablet PO Q4H PRN Mild Pain (1-3) or Fever Hydrocodone Bitart/Acetaminophen 1 tab 04/03/25 16:59 Hydrocodone/Acetaminophen (*Crx) 5-325 Mg Tablet PO Q4H PRN Pain Rated 4-6 Carvedilol 12.5 mg 04/03/25 21:00 04/04/25 09:02 Carvedilol 12.5 Mg Tablet PO 12.5 mg Q12HR RAVI Administration Hydralazine HCl 10 mg 04/03/25 17:04 04/03/25 20:27 Hydralazine Hcl 20 Mg/Ml Vial IV PUSH 10 mg Q8H PRN Administration Blood Pressure - High Ondansetron HCl 4 mg 04/03/25 16:59 Ondansetron Inj 4 Mg/2 Ml Vial IV PUSH Q4H PRN Nausea Perflutren Lipid Microsphere 0 ml 04/04/25 16:22 Perflutren Lipid Microspheres 1.5 Ml Vial Diluted To 10 Ml Total Volume IV PUSH 04/07/25 16:22 ONCE PRN adequate visualization Protocol Sodium Bicarbonate 1,300 mg 04/03/25 18:50 04/04/25 09:02 Sodium Bicarbonate Tab 650 Mg Tablet PO 1,300 mg BIDPC RAVI Administration Trazodone HCl 50 mg 04/04/25 01:38 04/04/25 01:44 Trazodone Hcl 50 Mg Tablet PO 50 mg HS PRN Administration Insomnia Venlafaxine HCl 150 mg 04/04/25 09:00 04/04/25 09:01 Venlafaxine Hcl Xr 75 Mg Cap.Er.24h PO 150 mg DAILY RAVI Administration Radiology Results: ITS Impressions Head CT 04/03/25 13:41 IMPRESSION: 1. No fracture or acute intracranial process. 2. Moderate-sized region of encephalomalacia in the right parieto-occipital region consistent with sequela of old infarct. 3. Moderate scattered nonspecific white matter hypoattenuation consistent with chronic small vessel ischemic disease. 4. Interval development of a salt and pepper appearance to the skull typical of hyperparathyroidism or renal osteodystrophy. Chest X-Ray 04/03/25 13:54 IMPRESSION: No acute process. Renal Ultrasound 04/03/25 20:52 IMPRESSION: No hydronephrosis or renal calculi. Findings suggesting medical renal disease. Brain MRI 04/04/25 11:59 IMPRESSION: 1. Small acute infarcts at the right thalamus and in the right parieto-occipital region along the margins of a small region of encephalomalacia consistent with a prior, now chronic infarct. 2. Couple additional small old lacunar infarcts in the left frontal lobe white matter. 3. Moderate diffuse periventricular predominant nonspecific white matter T2 hyperintensity consistent with chronic small vessel ischemic disease. 4. Decreased T1 fat signal throughout the diploic space of the calvarium with corresponding solid and pepper appearance to the calvarium on prior CT most suggestive of sequela of hyperparathyroidism or renal osteodystrophy. Labs Labs: Laboratory Results - last 24 hr 04/03/25 04/03/25 04/03/25 19:48 23:52 23:52 WBC RBC Hgb Hct MCV MCH MCHC RDW Plt Count MPV Immature Gran % (Auto) Neut % (Auto) Lymph % (Auto) [place] % (Auto) Eos % (Auto) Baso % (Auto) Lymph # (Auto) [place] # (Auto) Eos # (Auto) Baso # (Auto) Abs Immat Gran (auto) Absolute Neuts (auto) Absolute Nucleated RBC Nucleated RBC % Sodium Potassium Chloride Carbon Dioxide Anion Gap BUN Creatinine Estim Creat Clear Calc Estimated GFR Glucose POC Capillary Glucose 142 H Calcium Phosphorus Magnesium Iron TIBC % Saturation Ferritin Total Bilirubin AST ALT Alkaline Phosphatase Total Protein Albumin Urine Eosinophils None seen U Random Total Protein > 600 Ur Random Sodium 79 Ur Random Urea 332 Urine Creatinine 104.7 102.5 Protein/Creat Ratio 2 > 5.85 H 04/04/25 04/04/25 04:16 04:17 WBC 9.4 RBC 2.81 L Hgb 8.0 L Hct 26.9 L MCV 95.7 MCH 28.5 MCHC 29.7 L RDW 14.4 Plt Count 177 MPV 11.2 H Immature Gran % (Auto) 0.3 Neut % (Auto) 68.5 Lymph % (Auto) 19.9 [place] % (Auto) 9.2 H Eos % (Auto) 1.4 Baso % (Auto) 0.7 Lymph # (Auto) 1.86 [place] # (Auto) 0.9 H Eos # (Auto) 0.1 Baso # (Auto) 0.1 Abs Immat Gran (auto) 0.03 Absolute Neuts (auto) 6.4 Absolute Nucleated RBC 0.000 Nucleated RBC % 0.0 Sodium 139 Potassium 3.2 L Chloride 114 H Carbon Dioxide 16 L Anion Gap 9 BUN 40 H Creatinine 8.06 H Estim Creat Clear Calc 7 Estimated GFR 5 L Glucose 92 POC Capillary Glucose Calcium 10.5 H Phosphorus 3.9 Magnesium 2.2 Iron 60 TIBC 171 L % Saturation 35 Ferritin 516.00 H Total Bilirubin 0.6 AST 19 ALT 8 Alkaline Phosphatase 191 H Total Protein 6.0 L Albumin 3.1 L Urine Eosinophils U Random Total Protein Ur Random Sodium Ur Random Urea Urine Creatinine Protein/Creat Ratio 2 Quality VTE Prophylaxis VTE prophylaxis: mechanical ordered
--- NOTE | 2025-04-04 18:30 | P.CONNEU_ITS ---
Assessment and Plan Assessment and plan (1) Acute right arterial ischemic stroke, MCA (middle cerebral artery): Code(s): I63.511 - Cerebral infarction due to unspecified occlusion or stenosis of right middle cerebral artery Status: Acute Assessment and Plan: The patient is a has a left homonymous hemianopsia. It is difficult to tell whether it is new or old. The infarct in the right parieto-occipital area does show some enhancement at the periphery of what could be an old infarct but there is a small infarct in the right thalamic area which probably is coincidental. At any rate the patient has been falling a lot and this could be on account of increasing the diabetic peripheral neuropathy and other metabolic problems that she faces. I have advised the patient that she cannot drive until there is improvement in the left homonymous hemianopsia. She should have a Joshua visual field by cleaning supervisor or dough cutting machine operator after discharge and follow it. Patient lives by herself and hence safety will be also an issue. (2) Rhabdomyolysis: Code(s): M62.82 - Rhabdomyolysis Status: Acute (3) Fall: Code(s): W19.XXXA - Unspecified fall, initial encounter Status: Acute Assessment and Plan: she will require physical therapy in view of the multiple falls. This could be on account of peripheral neuropathy and of course the left homonymous hemianopsia the duration of which is not entirely clear. The family has noted that she has been having increasing falls. Hence it could be the pre-existing condition that may also make her prone to fall. (4) Peripheral neuropathy: Code(s): G62.9 - Polyneuropathy, unspecified Status: Acute (5) Hypertension: Qualifiers: Hypertension type: secondary to other renal disorders Qualified Code(s): I15.1 - Hypertension secondary to other renal disorders; N28.89 - Other specified disorders of kidney and ureter Code(s): I10 - Essential (primary) hypertension Status: Chronic (6) Type 2 diabetes mellitus with diabetic chronic kidney disease: Code(s): E11.22 - Type 2 diabetes mellitus with diabetic chronic kidney disease Status: Chronic (7) Stage 5 chronic kidney disease: Code(s): N18.5 - Chronic kidney disease, stage 5 Status: Acute (8) Fall: Qualifiers: Encounter type: initial encounter Qualified Code(s): W19.XXXA - Unspecified fall, initial encounter Code(s): W19.XXXA - Unspecified fall, initial encounter Status: Acute Plan The patient has been evaluated by a property clerk and appropriate action will be taken since her creatinine has gone up significantly. CPK was slightly high. I will suggest a carotid Doppler study and MR angiogram of the head since he has kidney failure and who defer angiogram. The patient should be treated with dual antiplatelets and statin for now for. Time approximately 3 months and after that she can switch to a single anti-platelet. She should also eye examination and Joshua visual field charting after discharge and follow up studies depending upon the progress. She should not drive until the hemianopia improved. An echocardiogram is also recommended Consult date: 04/04/25 HPI: Gena Pierre is a 64 year old female with history of diabetes mellitus and a chronic kidney disease vented to the hospital with having had a fall and there was a lapse in her awareness but there was no eye witness account to what happened. family became concerned since he is having increasing number of falls and is more weak and intermittently confused. She had trouble getting up from the floor. The patient denies any headache or difficulty speech or swallowing. No history of prior stroke. She had a CT scan of brain done in the emergency room that did not shows a moderate-sized encephalomalacia in the right parieto-occipital region thought to be old infarct. In addition moderate scattered white matter changes were noted. An MRI of the brain was performed today which shows evidence of a recent stroke in right thalamus and right occipital parietal area. Patient denies any weakness in upper lower limbs. She has history of diabetes for more than 10 years. Review of Systems 2 Review of Systems: No diplopia or loss of vision. She denies any weakness in upper lower limbs. No other symptoms reported. [facility] Past Medical History Medical History (Updated 04/04/25 @ 18:39 by James Millan MD) Fall Acute right arterial ischemic stroke, MCA (middle cerebral artery) Chronic kidney disease, stage 5 Cancer of right breast (2004) Status post chemotherapy and mastectomy. Diabetic peripheral neuropathy Obesity (BMI 30-39.9) Essential hypertension End-stage renal disease on hemodialysis Chronic kidney disease due to hypertension and diabetes with final insult kidneys with severe rhabdomyolysis March 2023. Vitamin D deficiency Type 2 diabetes mellitus Anemia Normal colonoscopy (07/2011) Primary hyperparathyroidism (11/2020) Vaginal polyp Depression Anxiety Surgical History Surgical History History of right mastectomy History of hysteroscopy (2020) Family History Family History Mother Family history of lung cancer Hypertension Grandparent Cerebrovascular accident Diabetes mellitus Hypertension Son Family history of cardiovascular disease Heart disease Hypertension Father Unknown family medical history Social History Social History Social History: Surrogate decision maker: Adry Smith (sister). Code status: Full code. Smoking packs per day: 0.5 Smoking cigarettes per day: 10.0 Years smoked: 20 Smoking pack-years: 10.00 Smoking status: Former smoker Tobacco type: cigarettes Second hand tobacco smoke exposure: Yes Alcohol intake: never Alcohol use details: Very seldom Substance use: never Substance use type: does not use Do You Feel Safe in your Home?: Yes Lack of Transportation: No Lack of Food: Never True Current Housing: I Have Housing Concerned About Future Housing: No Difficulty Paying Gas/Electric Bills: No Difficulty Paying for Meds: No Currently Unemployed: No Education: High School Diploma/GED Difficulty w/ Childcare or Family Care: No Additional living arrangements comments: Lives in [place]. Additional occupation/education comments: Retired. Sexual Orientation (if Verbalized by the Patient): Straight or Heterosexual Spiritual care concerns: No Agree to blood products: Yes Meds Home Medications and Allergies Home Medications ?Medication ?Instructions ?Recorded ?Confirmed ?Type sodium bicarbonate 650 mg tablet 1,300 mg (2 x 650 mg) PO BIDPC #60 05/08/24 04/03/25 Rx tabs carvedilol 12.5 mg tablet 12.5 mg PO Q12H #180 tabs 08/01/24 04/03/25 Rx venlafaxine 150 mg See Rx Instructions .Route 12/04/24 04/03/25 Rx capsule,extended release 24 hr .COMPLEX #90 caps Allergies Allergy/AdvReac Type Severity Reaction Status Date / Time No Known Allergies Allergy Verified 10/08/24 08:04 Vital Signs Vital Signs - 24 hr 04/03/25 18:51 04/03/25 20:00 04/03/25 20:00 Temperature 98.4 F Pulse Rate 76 77 Respiratory Rate 15 Blood Pressure 191/88 H Pulse Oximetry 100 Oxygen Delivery Room Air Fraction of Inspired Oxygen 04/03/25 20:22 04/03/25 21:23 04/03/25 22:00 Temperature Pulse Rate 83 80 Respiratory Rate 20 Blood Pressure 167/83 H Pulse Oximetry 95 Oxygen Delivery Room Air Fraction of Inspired Oxygen 21 04/03/25 22:00 04/03/25 23:51 04/04/25 00:00 Temperature 98.3 F Pulse Rate 83 84 Respiratory Rate 16 Blood Pressure 161/67 H Pulse Oximetry 100 Oxygen Delivery Room Air Fraction of Inspired Oxygen 04/04/25 00:00 04/04/25 02:00 04/04/25 04:00 Temperature Pulse Rate 78 83 Respiratory Rate Blood Pressure Pulse Oximetry Oxygen Delivery Room Air Fraction of Inspired Oxygen 04/04/25 04:00 04/04/25 04:00 04/04/25 06:00 Temperature 98.1 F Pulse Rate 85 78 75 Respiratory Rate 16 Blood Pressure 179/79 H Pulse Oximetry 100 Oxygen Delivery Fraction of Inspired Oxygen 04/04/25 08:00 04/04/25 08:00 04/04/25 08:00 Temperature 98.6 F Pulse Rate 77 80 87 Respiratory Rate 16 16 Blood Pressure 173/77 H Pulse Oximetry 100 100 Oxygen Delivery Room Air Fraction of Inspired Oxygen 21 04/04/25 09:02 04/04/25 10:00 04/04/25 12:00 Temperature 98.1 F Pulse Rate 80 79 87 Respiratory Rate 16 Blood Pressure 148/76 H Pulse Oximetry 100 Oxygen Delivery Fraction of Inspired Oxygen 04/04/25 12:00 04/04/25 14:35 04/04/25 16:00 Temperature 98.2 F Pulse Rate 78 78 Respiratory Rate 18 Blood Pressure 163/76 H Pulse Oximetry 100 Oxygen Delivery Room Air Fraction of Inspired Oxygen Exam 2 Narrative: Fully conscious alert oriented to self time place and person. No aphasia or dysarthria. Examination head and neck shows no evidence of external trauma. Cranial nerves in your testing shows there is a left homonymous hemianopsia. This is only evident when each eye is were tested separately. There is no facial weakness. Facial sensation intact. Tongue was midline other cranials were normal limits. Motor system normal power and tone in both upper and lower limbs. Deep tendon reflexes were generally decreased in lower limbs and no asymmetry noted on the left or right side. No involuntary movements seen. No cogwheeling or tremor. Sensory examination is grossly unremarkable. no sensory loss in the face or trunk or Left right upper lower limbs when both sides were compared. Results Labs 04/04/25 04:17 04/04/25 04:17 Labs: Short CBC 04/04/25 Range/Units 04:17 WBC 9.4 (4.5-10.0) K/mm3 Hgb 8.0 L (12.0-15.0) g/dL Hct 26.9 L (37.0-47.0) % Plt Count 177 (150-375) k/mm3 BMP 04/04/25 04:17 Sodium 139 Potassium 3.2 L Chloride 114 H Carbon Dioxide 16 L BUN 40 H Creatinine 8.06 H Glucose 92 Calcium 10.5 H Liver Function 04/04/25 Range/Units 04:17 Total Bilirubin 0.6 (0.2-1.3) mg/dL AST 19 (14-36) U/L ALT 8 (6-35) U/L Alkaline Phosphatase 191 H (38-126) U/L Albumin 3.1 L (3.5-5.1) g/dL EXAMINATION: MR brain/brain stem wo/w con DATE: 04/04/2025 11:55 INDICATION: New stroke seen on CT. TECHNIQUE: Magnetic resonance imaging (MRI) of the brain and brainstem was performed without and with 15 mL Multihance intravenous contrast. Sequences included sagittal and axial T1-weighted SE, axial diffusion-weighted FS SE, axial 3D SWAN, axial T2-weighted FLAIR, and axial T2-weighted FSE. Postcontrast axial and coronal T1-weighted SE was obtained. Apparent diffusion coefficient (ADC) maps were created. COMPARISON: CT dated 04/03/2025 and brain MR dated 04/10/2023 FINDINGS: Small region of encephalomalacia in the right parietal occipital region consistent with sequela of old infarct. Mild serpiginous increased T1 signal along the region of encephalomalacia consistent with laminar necrosis. There is a small focus of restricted diffusion along the lateral margin of the region of infarct suggesting recurrent acute infarct. Additional small focus of restricted diffusion consistent acute lacunar infarct in the right thalamus. There are couple additional small old lacunar infarcts in the left frontal lobe shin radiata. No intracranial hemorrhage, abnormal intracranial mass lesion or abnormally enhancing brain lesions. Moderate scattered areas of nonspecific increased T2-weighted signal intensity in the cerebral white matter, predominantly involving the deep and periventricular white matter. There are no intraparenchymal signal abnormalities seen on the other pulse sequences. The ventricles are symmetric and normal in size. There are no abnormal extra-axial fluid collections. Flow voids are seen in the cerebral arteries on the T2- weighted sequences consistent with their expected patency. Small bilateral mastoid effusions. Visualized orbits and soft tissues are unremarkable. There is diffuse decreased T1 signal throughout the diploic space of the skull corresponding to the increased sclerosis with innumerable tiny lytic lesions with [id number] appearance on prior CT most suggestive of hyperparathyroidism or renal osteodystrophy. IMPRESSION: 1. Small acute infarcts at the right thalamus and in the right parieto-occipital region along the margins of a small region of encephalomalacia consistent with a prior, now chronic infarct. 2. Couple additional small old lacunar infarcts in the left frontal lobe white matter. 3. Moderate diffuse periventricular predominant nonspecific white matter T2 hyperintensity consistent with chronic small vessel ischemic disease. 4. Decreased T1 fat signal throughout the diploic space of the calvarium with corresponding solid and pepper appearance to the calvarium on prior CT most suggestive of sequela of hyperparathyroidism or renal osteodystrophy. Imaging Attestation: I personally reviewed and interpreted this imaging study as follows: ( MRI of the brain) My impression: small right thalamic infarct and area of infarct in the right parietal occipital area with some enhancement on DWI sequence around the edges Radiologist's impression: same as above
[2025-04-04 19:31] LABS: HDL Direct 42 mg/dL; Triglycerides 210 mg/dL (<150)
[2025-04-04 20:25] LABS: Cholesterol 379 mg/dL (0-200)
[2025-04-04 20:41] LABS: Vitamin B12 434.0 pg/mL (239-931)
[2025-04-05] VITALS (9 sets, daily range): BP systolic 133–165; BP diastolic 66–83; PULSE 70–90; RESP 16–18; TEMP 36.4–36.9; O2SAT 100
--- NOTE | 2025-04-05 | ECHO_ITS ---
Patient Info Name: Gena Pierre Age: 64 years : 1960 Gender: Female Ht: 65 in Wt: 178 lbs BSA: 1.95 m2 HR: 71 bpm BP: 133 / 66 mmHg Technical Quality: Fair Exam Date: 04/05/2025 3:13 PM Patient Status: I Admit Date: 04/05/2025 Exam Type: CA echo dop color flow w con Complete two-dimensional, color flow and Doppler transthoracic echocardiogram is performed with contrast to opacify the left ventricle and to improve the deliniation of the left ventricle endocardial borders. Staff Referring Physician: Dee Barnett Refractive Surgeon: Mackenzie Bernstein Attending Provider: Hilario Estevez Contrast/Agitated Saline Contrast/Ag. Saline: Definity Amount: 4.00 ml Administered By: Mackenzie Bernstein Existing IV Access: Yes IV Access Condition: evidence of infiltration New IV Access: Left and Inner Forearm Summary 1. Definity contrast administered improved wall motion interpretation. 2. Left ventricular chamber dimension is normal. 3. Left ventricular systolic function is normal, estimated at 55-60. 4. There is mild concentric increased left ventricular wall thickness. 5. The left ventricular diastolic function is grade I diastolic dysfunction. 6. E/e' 13 is mildly elevated. 7. Left atrial chamber dimension is mildly enlarged. 8. There is mild mitral valve regurgitation. Left Ventricle E/e' 13 is mildly elevated. Left ventricular chamber dimension is normal. Left ventricular systolic function is normal, estimated at 55-60. There is mild concentric increased left ventricular wall thickness. The left ventricular diastolic function is grade I diastolic dysfunction. Definity contrast administered improved wall motion interpretation. Right Ventricle Right ventricular chamber dimension is normal. Right ventricular systolic function is normal. Left Atria Left atrial chamber dimension is mildly enlarged. Right Atria Right atrial chamber dimension is normal. Aortic Valve The aortic valve is trileaflet. There is no aortic valve stenosis. There is no aortic valve regurgitation. Pulmonic Valve There is no pulmonic regurgitation. Mitral Valve There is no mitral valve stenosis. There is mild mitral valve regurgitation. Tricuspid Valve There is no tricuspid valve regurgitation. Pericardium/Pleural There is no pericardial effusion. Inferior Vena Cava Normal inferior vena cava with >50% collapse upon inspiration consistent with normal right atrial pressure, 5 mmHg. Aorta The aortic root size at the sinus of Valsalva is normal. Left Ventricular Outflow Tract Name Value Normal LVOT 2D LVOT Diameter 2.0 cm LVOT Doppler LVOT Peak Velocity 110 cm/s LVOT Peak Gradient 5 mmHg LVOT Mean Gradient 2 mmHg LVOT VTI 23 cm LVOT Stroke Volume 74 ml LVOT CO 5.3 l/min LVOT CI 2.7 l/min/m2 Pulmonic Valve Name Value Normal RVOT Doppler RVOT Peak Velocity 97 cm/s RVOT Peak Gradient 4 mmHg PV Doppler PV Peak Velocity 138 cm/s PV Peak Gradient 8 mmHg Mitral Valve Name Value Normal MV Diastolic Function MV E Peak Velocity 59 cm/s MV A Peak Velocity 105 cm/s MV E/A 0.6 MV Decel Time (PW) 317 ms MV Annular TDI MV E/e' (Septal) 13.8 MV E/e' (Lateral) 13.8 MV E/e' (Average) 13.8 Tricuspid Valve Name Value Normal Estimated PAP/RSVP RA Pressure 5 mmHg <=5 Aortic Valve Name Value Normal AV Doppler AV Peak Velocity 148 cm/s AV Peak Gradient 9 mmHg AV Area (Cont Eq Malcom) 2.4 cm2 AV DI (Malcom) 0.75 AV Regurgitation 2D LVOT Area 3.2 cm2 Ventricles Name Value Normal LV Dimensions 2D/MM IVS Diastolic Thickness (2D) 1.0 cm 0.6-1.0 LVID Diastole (2D) 4.2 cm 3.8-5.2 LVIW Diastolic Thickness (2D) 1.3 cm 0.6-0.9 LVID Systole (2D) 3.0 cm 2.2-3.5 LVOT Diameter 2.0 cm LV Mass (2D Cubed) 161.86 g 67.00-162.00 LV Mass Index (2D Cubed) 83 g/m2 43-95 Relative Wall Thickness (2D) 0.62 <=0.42 LV Fractional Shortening/Ejection Fraction 2D/MM LV Fractional Shortening (2D) 29 % 27-45 LV EF (2D Teichholz) 56 % LV Diastolic Volume (4C MOD) 131 ml LV EF (4C MOD) 56 % LV Diastolic Volume (2C MOD) 100 ml LV EF (2C MOD) 52 % LV Diastolic Volume (BP MOD) 116 ml 46-106 LV Diastolic Volume Index (BP MOD) 59 ml/m2 29-61 LV Systolic Volume (BP MOD) 52 ml 14-42 LV Systolic Volume Index (BP MOD) 27 ml/m2 8-24 LV EF (BP MOD) 55 % 54-74 LV Diastolic Length (4C) 8.5 cm LV Systolic Length (4C) 7.4 cm LV Stroke Volume (4C MOD) 74 ml Atria Name Value Normal LA Dimensions LA Volume (4C A-L) 49 ml RA Dimensions RA Systolic [place] Length (4C) 4.8 cm 2.2-2.8 RA Area (4C) 10.5 cm2 <=18.0 Report Signatures
[2025-04-05 04:55] LABS: Hematocrit 25.9 % (37.0-47.0); Hemoglobin 8.0 g/dL (12.0-15.0); Immature Granulocyte Percent A 0.2 % (0-0.5); Lymphocytes Absolute Auto 2.01 K/mm3 (0.9-3.2); Mean Corpuscular HGB Conc 30.9 g/dl (32-36); Mean Corpuscular Hemoglobin 29.1 pg (26-34); Mean Corpuscular Volume 94.2 fl (80-100); Nucleated Red Blood Cells Absolute Auto 0.000 K/mm3 (0.0-0.012); Nucleated Red Blood Cells Perc 0.0 % (0.0-0.2); Platelet Count Result 175 k/mm3 (150-375); Red Blood Count 2.75 M/mm3 (4.2-5.4); White Blood Count 8.6 K/mm3 (4.5-10.0)
[2025-04-05 05:08] LABS: Alanine Aminotransferase 8 U/L (6-35); Albumin Level 3.0 g/dL (3.5-5.1); Alkaline Phosphatase 195 U/L (38-126); Anion Gap 9 mmol/L (4-12); Aspartate Amino Transferase 18 U/L (14-36); Bilirubin,Total 0.4 mg/dL (0.2-1.3); Blood Urea Nitrogen 42 mg/dL (7-17); Calcium 10.3 mg/dL (8.4-10.2); Carbon Dioxide 17 mmol/L (22-30); Chloride 110 mmol/L (98-107); Estimated CRCL calculation 7 ml/min; Estimated Glomerular Filt Rate 5; Glucose 80 mg/dL (65-110); HDL Direct 40 mg/dL; Magnesium 2.4 mg/dL (1.6-2.3); Potassium 3.1 mmol/L (3.4-5.0); Sodium 136 mmol/L (137-145); Total Protein 5.8 g/dL (6.3-8.2); Triglycerides 203 mg/dL (<150)
[2025-04-05 05:14] LABS: Hemoglobin A1C 4.6 % (<5.7)
[2025-04-05 05:25] LABS: Cholesterol 353 mg/dL (0-200)
[2025-04-05] MEDS: VENLAFAXINE HCL XR 75 MG CAP.ER.24H 150 MG PO (08:46)
[2025-04-05] MEDS: SODIUM BICARBONATE TAB 650 MG TABLET 1300 MG PO ×2 (08:46→17:50)
[2025-04-05] MEDS: ATORVASTATIN 40 MG TABLET PO (08:46)
[2025-04-05] MEDS: CLOPIDOGREL BISULFATE 75 MG TABLET PO (08:46)
[2025-04-05] MEDS: ASPIRIN 81 MG ENTERIC TABLET PO (08:46)
--- NOTE | 2025-04-05 10:11 | P.PNNP_ITS ---
Progress Note: A&P Assessment and Plan (1) Stage 5 chronic kidney disease: Code(s): N18.5 - Chronic kidney disease, stage 5 Status: Acute Assessment and Plan: * suspect progression of disease rather than an acute insult * last creatinine was 5.0mg/dl (with a GFR of 9cc/min) in June 2024 * was scheduled for AV access placement in anticipation of [employer]/hemodialysis but this never occurred due to insurance issues * she also did not follow-up with Dr. Colmenares after her June 2024 appointment... 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 several years ago * testing noted on this admission: * renal ultrasound c/w medical renal disease * urine eosinophils negative * nephrotic range proteinuria * urine electrolytes non-prerenal * Long conversation with the patient. She does not have any nausea or vomiting. What happened on evening is unclear but it is hard to rule out that the very poor kidney function may have had something to do with this. Perhaps a wave of uremia? In any case, I see no reason to delay dialysis. The patient has been trying to get a fistula as an outpatient for a long time. And even if we did a fistula today it would be months before it would be ready to use and I am not comfortable waiting months to start dialysis so I think we ought to go ahead and put a tunneled dialysis catheter in and start dialysis once it is in. We discussed the risks benefits alternatives and process of dialysis. She remembers all of this because she was already on dialysis a couple of years ago. She agrees to proceed. * Will consult surgery for a tunneled dialysis catheter. * Will get hepatitis studies (2) Fall: Qualifiers: Encounter type: initial encounter Qualified Code(s): W19.XXXA - Unspecified fall, initial encounter Code(s): W19.XXXA - Unspecified fall, initial encounter Status: Acute Assessment and Plan: * frequent falls x 1 week prior to admission * CT of head noted: * no fracture or acute intracranial process * moderate-sized region of encephalomalacia in the right parieto-occipital region consistent with sequela of old infarct * moderate scattered nonspecific white matter hypoattenuation consistent with chronic small vessel ischemic disease * interval development of a salt and pepper appearance to the skull typical of hyperparathyroidism or renal osteodystrophy * MRI of brain ordered * Neurology consultation underway. * fall precautions * PT/OT evaluation * Will order a parathyroid hormone. * Will check a vitamin-D level. * Check a phosphorus level. (3) Hypertension: Qualifiers: Hypertension type: secondary to other renal disorders Qualified Code(s): I15.1 - Hypertension secondary to other renal disorders; N28.89 - Other specified disorders of kidney and ureter Code(s): I10 - Essential (primary) hypertension Status: Chronic Assessment and Plan: * poor control on admission * resumed on home medications with improvement * Currently on carvedilol and p.r.n. hydralazine. * Systolic in the 130s to 160s since yesterday at noon. Will follow going forward for trending. (4) Metabolic acidosis: Code(s): E87.20 - Acidosis, unspecified Status: Acute Assessment and Plan: * secondary to advanced CKD * on oral sodium bicarbonate 1300mg twice a day to compensate (5) Anemia: Qualifiers: Anemia type: due to chronic kidney disease Chronic kidney disease stage: stage 5 (GFR < 15), not on chronic dialysis Qualified Code(s): N18.5 - Chronic kidney disease, stage 5; D63.1 - Anemia in chronic kidney disease Code(s): D64.9 - Anemia, unspecified Status: Acute Assessment and Plan: * likely related advanced CKD * anemia studies with adequate iron stores * consider empiric MARCO while hospitalized. Will wait for blood pressure to drop a little bit more. * Hemoglobin the same today as yesterday at 8.0. (6) Hypercalcemia: Code(s): E83.52 - Hypercalcemia Status: Acute Assessment and Plan: * elevated on admission but better currently * extensive outpatient work-up reviewed: * 24 hour urine immunofixation with assymetrical beta and gamma regions * 24hr urine calcium + creatinine suggestive of primary or tertiary hyperparathyroidism * Vitamin A, THOM level, and PTHrp okay * Nuc Med Parathyroid scan negative * suspect a combination of primary mixed with secondary hyperparathyroidism * Calcium level is a little bit better. Consider starting cinacalcet will see what the PTH a (7) Diet-controlled type 2 diabetes mellitus: Code(s): E11.9 - Type 2 diabetes mellitus without complications Status: Chronic Assessment and Plan: * follow accu-cheks * not currently on any diabetic medications Subjective Date/time seen: 04/05/25 10:11 Interval history: Gena is feeling better today. No more lightheaded episodes. No nausea. She is eating pretty well. Review of Systems Cardiovascular: Cardiovascular: Reports no additional cardiovascular complaints Respiratory: Respiratory: Reports no additional respiratory complaints Gastrointestinal: Gastrointestinal: Reports no additional gastrointestinal complaints Genitourinary: Genitourinary: Reports no additional female genitourinary complaints Exam Narrative: WDWN in NAD skin no rash head ncat lungs clear cor reg no rub abd BS+ nontender and soft ext no edema. Objective Data Vital Signs Vital Signs: Vital Signs - 24 hr 04/04/25 12:00 04/04/25 12:00 04/04/25 14:35 Temperature 98.1 F Pulse Rate 87 78 Respiratory Rate 16 Blood Pressure 148/76 H Pulse Oximetry 100 Oxygen Delivery Room Air 04/04/25 16:00 04/04/25 16:00 04/04/25 20:00 Temperature 98.2 F 98.2 F Pulse Rate 78 86 84 Respiratory Rate 18 16 Blood Pressure 163/76 H 143/73 H Pulse Oximetry 100 100 Oxygen Delivery 04/04/25 20:00 04/04/25 21:28 04/05/25 00:00 Temperature 98.3 F Pulse Rate 83 82 87 Respiratory Rate 16 Blood Pressure 133/66 Pulse Oximetry 100 Oxygen Delivery 04/05/25 00:00 04/05/25 04:00 04/05/25 08:00 Temperature 97.5 F L Pulse Rate 83 78 79 Respiratory Rate 18 Blood Pressure 165/83 H Pulse Oximetry 100 Oxygen Delivery 04/05/25 08:46 Temperature Pulse Rate 81 Respiratory Rate Blood Pressure Pulse Oximetry Oxygen Delivery Intake/Output Intake/Output: Intake & Output 04/02/25 04/03/25 04/04/25 04/05/25 23:59 23:59 23:59 23:59 Intake Total 1440 440 Output Total 55 300 Balance -55 1440 140 Meds/Results Medications: Active Medications Generic Name Dose Route Start Last Admin Trade Name Freq PRN Reason Stop Dose Admin Acetaminophen 650 mg 04/03/25 16:59 Acetaminophen 325 Mg Tablet PO Q4H PRN Mild Pain (1-3) or Fever Hydrocodone Bitart/Acetaminophen 1 tab 04/03/25 16:59 Hydrocodone/Acetaminophen (*Crx) 5-325 Mg Tablet PO Q4H PRN Pain Rated 4-6 Aspirin 81 mg 04/05/25 09:00 04/05/25 08:46 Aspirin 81 Mg Enteric Tablet PO 81 mg QAM RAVI Administration Atorvastatin Calcium 40 mg 04/05/25 09:00 04/05/25 08:46 Atorvastatin 40 Mg Tablet PO 40 mg DAILY RAVI Administration Carvedilol 12.5 mg 04/03/25 21:00 04/05/25 08:46 Carvedilol 12.5 Mg Tablet PO 12.5 mg Q12HR RAVI Administration Clopidogrel Bisulfate 75 mg 04/05/25 09:00 04/05/25 08:46 Clopidogrel Bisulfate 75 Mg Tablet PO 75 mg QAM [facility] Administration Ergocalciferol 1,250 mcg 04/05/25 09:40 Ergocalciferol (Vitamin D2) 1,250 Mcg (50,000 Units) Capsule PO Fr@0900 [facility] Heparin Sodium (Porcine) 5,000 units 04/04/25 22:00 04/05/25 08:49 Heparin Sodium 5,000 Units/Ml Vial SUB-Q 5,000 units Q8HR RAVI Administration Hydralazine HCl 10 mg 04/03/25 17:04 04/03/25 20:27 Hydralazine Hcl 20 Mg/Ml Vial IV PUSH 10 mg Q8H PRN Administration Blood Pressure - High Ondansetron HCl 4 mg 04/03/25 16:59 Ondansetron Inj 4 Mg/2 Ml Vial IV PUSH Q4H PRN Nausea Perflutren Lipid Microsphere 0 ml 04/04/25 16:22 Perflutren Lipid Microspheres 1.5 Ml Vial Diluted To 10 Ml Total Volume IV PUSH 04/07/25 16:22 ONCE PRN adequate visualization Protocol Sodium Bicarbonate 1,300 mg 04/03/25 18:50 04/05/25 08:46 Sodium Bicarbonate Tab 650 Mg Tablet PO 1,300 mg BIDPC RAVI Administration Trazodone HCl 50 mg 04/04/25 01:38 04/04/25 01:44 Trazodone Hcl 50 Mg Tablet PO 50 mg HS PRN Administration Insomnia Venlafaxine HCl 150 mg 04/04/25 09:00 04/05/25 08:46 Venlafaxine Hcl Xr 75 Mg Cap.Er.24h PO 150 mg DAILY RAVI Administration Radiology Results: ITS Impressions Head CT 04/03/25 13:41 IMPRESSION: 1. No fracture or acute intracranial process. 2. Moderate-sized region of encephalomalacia in the right parieto-occipital region consistent with sequela of old infarct. 3. Moderate scattered nonspecific white matter hypoattenuation consistent with chronic small vessel ischemic disease. 4. Interval development of a salt and pepper appearance to the skull typical of hyperparathyroidism or renal osteodystrophy. Chest X-Ray 04/03/25 13:54 IMPRESSION: No acute process. Renal Ultrasound 04/03/25 20:52 IMPRESSION: No hydronephrosis or renal calculi. Findings suggesting medical renal disease. Brain MRI 04/04/25 11:59 IMPRESSION: 1. Small acute infarcts at the right thalamus and in the right parieto-occipital region along the margins of a small region of encephalomalacia consistent with a prior, now chronic infarct. 2. Couple additional small old lacunar infarcts in the left frontal lobe white matter. 3. Moderate diffuse periventricular predominant nonspecific white matter T2 hyperintensity consistent with chronic small vessel ischemic disease. 4. Decreased T1 fat signal throughout the diploic space of the calvarium with corresponding solid and pepper appearance to the calvarium on prior CT most suggestive of sequela of hyperparathyroidism or renal osteodystrophy. Labs Labs: Laboratory Results - last 24 hr 04/04/25 04/05/25 19:13 04:49 WBC 8.6 RBC 2.75 L Hgb 8.0 L Hct 25.9 L MCV 94.2 MCH 29.1 MCHC 30.9 L RDW 14.3 Plt Count 175 MPV 11.0 H Immature Gran % (Auto) 0.2 Neut % (Auto) 64.8 Lymph % (Auto) 23.3 [place] % (Auto) 8.7 H Eos % (Auto) 2.5 Baso % (Auto) 0.5 Lymph # (Auto) 2.01 [place] # (Auto) 0.8 H Eos # (Auto) 0.2 Baso # (Auto) 0.0 Abs Immat Gran (auto) 0.02 Absolute Neuts (auto) 5.6 Absolute Nucleated RBC 0.000 Nucleated RBC % 0.0 Sodium 136 L Potassium 3.1 L Chloride 110 H Carbon Dioxide 17 L Anion Gap 9 BUN 42 H Creatinine 7.86 H Estim Creat Clear Calc 7 Estimated GFR 5 L Glucose 80 Hemoglobin A1c 4.6 Calcium 10.3 H Magnesium 2.4 H Total Bilirubin 0.4 AST 18 ALT 8 Alkaline Phosphatase 195 H Total Protein 5.8 L Albumin 3.0 L Triglycerides 210 H 203 H Cholesterol 379 H 353 H LDL Cholesterol Direct 203 172 HDL Direct 42 40 Vitamin B12 434.0 Vitamin D 25-Hydroxy < 12.8 Folate 7.5
[2025-04-05] MEDS: ERGOCALCIFEROL (VITAMIN D2) 1,250 MCG (50,000 UNITS) CAPSULE 1250 MCG PO (10:18)
[2025-04-05 11:34] LABS: Parathyroid Intact 2436.0 pg/mL (14.5-75.2)
--- NOTE | 2025-04-05 12:39 | PM.CNGS ---
Assessment and Plan Assessment and plan (1) Chronic kidney disease, stage 5: Code(s): N18.5 - Chronic kidney disease, stage 5 Status: Acute Assessment and Plan: Patient has chronic kidney disease that previously required tunneled dialysis catheter 2 years ago. She was scheduled for AV fistula but due to insurance issues she was unable to obtain this. She had last seen Dr. Colmenares in his office in June 2024. She now has a creatinine level of 7.86, BUN 42, GFR 5. She is requiring tunneled dialysis catheter placement. She is scheduled for surgery with Dr. Silverman on Sunday 04/08 at 2:00 p.m. Patient can resume a renal dialysis diet. NPO diet at midnight Tuesday night before surgery. (2) Fall: Qualifiers: Encounter type: initial encounter Qualified Code(s): W19.XXXA - Unspecified fall, initial encounter Code(s): W19.XXXA - Unspecified fall, initial encounter Status: Acute Plan Discussed patient's case and plan of care with Dr. Silverman. History of Present Illness Consult details Consult date: 04/05/25 Reason for consult: other (Placement tunneled dialysis catheter) Requesting physician: Praful Colmenares MD Narrative: Patient is a 64-year-old female with history of CKD, previously on hemodialysis who we have been asked to see in surgical consultation for placement of a tunneled dialysis catheter. Patient 1st presented to the ED 04/03 after family expressed concern for increasing number of falls with associated weakness and intermittent confusion. Patient was last seen in Dr. Colmenares's office on 07/09/2024 and creatinine was 5.0. Dr. Colmenares has seen her today and suspects that her CKD is a progression of the disease rather than an acute insult. Upon admission her creatinine was 8.70, now down to 7.86. Estimated GFR is 5. CK was 168on 04/03/25.Patient previously had tunneled dialysis catheter placed by Dr. Silvreman on 04/13/2023 after having a fall on developing rhabdomyolysis which contributed to worsening kidney function. She had a tunneled dialysis catheter removed and was scheduled for AV access placement in anticipation of RT/hemodialysis but due to insurance issues she was unable to obtain this. Patient did not follow-up after June 2020 for appointment. She is now requiring tunneled dialysis catheter for management of stage 5 CKD. PMFSH Past Medical History Medical History (Updated 04/04/25 @ 18:39 by James Millan MD) Fall Acute right arterial ischemic stroke, MCA (middle cerebral artery) Chronic kidney disease, stage 5 Cancer of right breast (2004) Status post chemotherapy and mastectomy. Diabetic peripheral neuropathy Obesity (BMI 30-39.9) Essential hypertension End-stage renal disease on hemodialysis Chronic kidney disease due to hypertension and diabetes with final insult kidneys with severe rhabdomyolysis March 2023. Vitamin D deficiency Type 2 diabetes mellitus Anemia Normal colonoscopy (07/2011) Primary hyperparathyroidism (11/2020) Vaginal polyp Depression Anxiety Surgical History Surgical History History of right mastectomy History of hysteroscopy (2020) Family History Family History Mother Family history of lung cancer Hypertension Grandparent Cerebrovascular accident Diabetes mellitus Hypertension Son Family history of cardiovascular disease Heart disease Hypertension Father Unknown family medical history Social History Social History Social History: Surrogate decision maker: Adry Luis (sister). Code status: Full code. Smoking packs per day: 0.5 Smoking cigarettes per day: 10.0 Years smoked: 20 Smoking pack-years: 10.00 Smoking status: Former smoker Tobacco type: cigarettes Second hand tobacco smoke exposure: Yes Alcohol intake: never Alcohol use details: Very seldom Substance use: never Substance use type: does not use Do You Feel Safe in your Home?: Yes Lack of Transportation: No Lack of Food: Never True Current Housing: I Have Housing Concerned About Future Housing: No Difficulty Paying Gas/Electric Bills: No Difficulty Paying for Meds: No Currently Unemployed: No Education: High School Diploma/GED Difficulty w/ Childcare or Family Care: No Additional living arrangements comments: Lives in [place]. Additional occupation/education comments: Retired. Sexual Orientation (if Verbalized by the Patient): Straight or Heterosexual Spiritual care concerns: No Agree to blood products: Yes Meds Home Medications and Allergies Home Medications ?Medication ?Instructions ?Recorded ?Confirmed ?Type sodium bicarbonate 650 mg tablet 1,300 mg (2 x 650 mg) PO BIDPC #60 05/08/24 04/03/25 Rx tabs carvedilol 12.5 mg tablet 12.5 mg PO Q12H #180 tabs 08/01/24 04/03/25 Rx venlafaxine 150 mg See Rx Instructions .Route 12/04/24 04/03/25 Rx capsule,extended release 24 hr .COMPLEX #90 caps Allergies Allergy/AdvReac Type Severity Reaction Status Date / Time No Known Allergies Allergy Verified 10/08/24 08:04 Vital Signs Vital Signs - 24 hr 04/04/25 14:35 04/04/25 16:00 04/04/25 16:00 Temperature 98.2 F Pulse Rate 78 86 Respiratory Rate 18 Blood Pressure 163/76 H Pulse Oximetry 100 Oxygen Delivery Room Air 04/04/25 20:00 04/04/25 20:00 04/04/25 20:00 Temperature 98.2 F Pulse Rate 84 83 83 Respiratory Rate 16 Blood Pressure 143/73 H Pulse Oximetry 100 Oxygen Delivery Room Air 04/04/25 21:28 04/05/25 00:00 04/05/25 00:00 Temperature 98.3 F Pulse Rate 82 87 83 Respiratory Rate 16 Blood Pressure 133/66 Pulse Oximetry 100 Oxygen Delivery 04/05/25 04:00 04/05/25 08:00 04/05/25 08:46 Temperature 97.5 F L Pulse Rate 78 79 81 Respiratory Rate 18 Blood Pressure 165/83 H Pulse Oximetry 100 Oxygen Delivery Exam Const: General: comfortable and no acute distress HENMT: Mouth: Yes moist mucous membranes Eyes: General: appearance normal, both eyes and all related structures Neck: Neck: supple Resp: Effort & Inspection: normal respiratory effort Cardio: Rate: regular rate Skin: General skin exam: normal color and no rashes or lesions noted Neuro: Speech: normal speech Extrem: General: normal to inspection Psych: Mental Status: mental status grossly normal Results Labs 04/05/25 04:49 04/05/25 04:49 Labs: Abnormal lab results 04/04/25 04/05/25 04/05/25 Range/Units 19:13 04:34 04:49 RBC 2.75 L (4.2-5.4) M/mm3 Hgb 8.0 L (12.0-15.0) g/dL Hct 25.9 L (37.0-47.0) % MCHC 30.9 L (32-36) g/dl MPV 11.0 H (7.4-10.4) fl [place] % (Auto) 8.7 H (2.6-8.5) % [place] # (Auto) 0.8 H (0.1-0.6) K/mm3 Sodium 136 L (137-145) mmol/L Potassium 3.1 L (3.4-5.0) mmol/L Chloride 110 H (98-107) mmol/L Carbon Dioxide 17 L (22-30) mmol/L BUN 42 H (7-17) mg/dL Creatinine 7.86 H (0.7-1.0) mg/dL Estimated GFR 5 L (59 - ) Calcium 10.3 H (8.4-10.2) mg/dL Magnesium 2.4 H (1.6-2.3) mg/dL Alkaline Phosphatase 195 H (38-126) U/L Total Protein 5.8 L (6.3-8.2) g/dL Albumin 3.0 L (3.5-5.1) g/dL Triglycerides 210 H 203 H (<150) mg/dL Cholesterol 379 H 353 H (0-200) mg/dL PTH Intact 2436.0 H (14.5-75.2) pg/mL Diabetes panel 04/04/25 04/05/25 Range/Units 19:13 04:49 Sodium 136 L (137-145) mmol/L Potassium 3.1 L (3.4-5.0) mmol/L Chloride 110 H (98-107) mmol/L Carbon Dioxide 17 L (22-30) mmol/L BUN 42 H (7-17) mg/dL Creatinine 7.86 H (0.7-1.0) mg/dL Glucose 80 (65-110) mg/dL Hemoglobin A1c 4.6 (<5.7) % Calcium 10.3 H (8.4-10.2) mg/dL AST 18 (14-36) U/L ALT 8 (6-35) U/L Alkaline Phosphatase 195 H (38-126) U/L Total Protein 5.8 L (6.3-8.2) g/dL Albumin 3.0 L (3.5-5.1) g/dL Triglycerides 210 H 203 H (<150) mg/dL Calcium panel 04/05/25 Range/Units 04:49 Calcium 10.3 H (8.4-10.2) mg/dL Albumin 3.0 L (3.5-5.1) g/dL Pituitary panel 04/05/25 Range/Units 04:49 Sodium 136 L (137-145) mmol/L Potassium 3.1 L (3.4-5.0) mmol/L Chloride 110 H (98-107) mmol/L Carbon Dioxide 17 L (22-30) mmol/L BUN 42 H (7-17) mg/dL Creatinine 7.86 H (0.7-1.0) mg/dL Glucose 80 (65-110) mg/dL Calcium 10.3 H (8.4-10.2) mg/dL Adrenal panel 04/05/25 Range/Units 04:49 Sodium 136 L (137-145) mmol/L Potassium 3.1 L (3.4-5.0) mmol/L Chloride 110 H (98-107) mmol/L Carbon Dioxide 17 L (22-30) mmol/L BUN 42 H (7-17) mg/dL Creatinine 7.86 H (0.7-1.0) mg/dL Glucose 80 (65-110) mg/dL Calcium 10.3 H (8.4-10.2) mg/dL Total Bilirubin 0.4 (0.2-1.3) mg/dL AST 18 (14-36) U/L ALT 8 (6-35) U/L Alkaline Phosphatase 195 H (38-126) U/L Total Protein 5.8 L (6.3-8.2) g/dL Albumin 3.0 L (3.5-5.1) g/dL All other labs normal.
[2025-04-05 13:42] LABS: Hepatitis B Surface Antigen Negative (Negative)
[2025-04-05 14:01] LABS: Hepatitis B Surface Anti Res Positive
[2025-04-05] MEDS: PERFLUTREN LIPID MICROSPHERES 1.5 ML VIAL DILUTED TO 10 ML TOTAL VOLUME IV PUSH (15:50)
--- NOTE | 2025-04-05 16:14 | IVDEFINITY ---
Prior to administration of IV Definity the patient was educated on the risks and benefits of the imaging enhancing agent including potential adverse side effects. The patient verbalized understanding. Allergies were verified. No exclusion criteria were identified and at least one of the following inclusion criteria were met: 1) physician request, 2) patient technically difficult to image (per the [place] [employer] guidelines of two or more segments not discernable within the apical view), or 3) questionable left ventricular function. ?
--- NOTE | 2025-04-05 17:02 | PM.IMPN ---
Progress Note: A&P Assessment and Plan (1) Chronic kidney disease, stage 5: Code(s): N18.5 - Chronic kidney disease, stage 5 Status: Acute Assessment and Plan: - previous history of SAEID/rhabdomyolysis resulting in need for temporary dialysis. Per last Nephrology note in June of 2024 - creatinine 8.7, BUN 39, GFR 5. Previously 5.0, BUN 35, GFR 9 in June of 2024. Cr 8.06, us renal normal patient noted she was once on dialysis about a year ago GEn surgery consulted for dialysis catheter placement Nephrology following (2) Fall: Qualifiers: Encounter type: initial encounter Qualified Code(s): W19.XXXA - Unspecified fall, initial encounter Code(s): W19.XXXA - Unspecified fall, initial encounter Status: Acute Assessment and Plan: - reported frequent falls for the past week - new CVA seen on CT, not previously appreciated on brain MRI that was completed in April of 2023. Will check MR brain with/without to better assess. - PT/OT evaluation for rehab services - will hold off on care coordination consultation, await PT/OT recommendations - fall precaution - UA and CXR negative for findings for infection (3) Anemia: Qualifiers: Anemia type: due to chronic kidney disease Chronic kidney disease stage: stage 5 (GFR < 15), not on chronic dialysis Qualified Code(s): N18.5 - Chronic kidney disease, stage 5; D63.1 - Anemia in chronic kidney disease Code(s): D64.9 - Anemia, unspecified Status: Acute Assessment and Plan: - Hgb 9.2, previously 9.2 in June 2024 - Hx of CKD stage 4, anemia in setting of chronic disease - transfuse if <7 - trend CBC (4) Hypertension: Qualifiers: Hypertension type: secondary to other renal disorders Qualified Code(s): I15.1 - Hypertension secondary to other renal disorders; N28.89 - Other specified disorders of kidney and ureter Code(s): I10 - Essential (primary) hypertension Status: Chronic Assessment and Plan: - chronic, previously not well controlled. Arrived . Currently a 187/90. - continue home medications: Carvedilol - monitor (5) Diet-controlled type 2 diabetes mellitus: Code(s): E11.9 - Type 2 diabetes mellitus without complications Status: Chronic Assessment and Plan: - not currently on any diabetic medications, diet controlled - initial glucose 128 - A1c 6.0 on 05/02/2024, update Plan Acute stroke patient presented after a fall MRI showed acute right thalamus infarct ECHo showed EF 55-60% with grade I diastolic dysfunction MRA no significant stenosis A1c 4.6, LDL 172 PT/OT/ST Neurology following Aspirin and Plavix Vit D deficiency stared on replacement 50k units weeks x 8 weeks Monitor Diet: Renal DVT Prophylaxis: Sq heparin Code Status: Full code Subjective Date/time seen: 04/05/25 17:02 Interval history: Comfortable at bedside Review of Systems Review of Systems: All systems reviewed & are unremarkable except as noted in HPI and below Exam Const: General: comfortable and no acute distress Other: , female, nontoxic appearance HENMT: Face/Nose/Sinus: Normal nares present Mouth: Yes moist mucous membranes Eyes: General: appearance normal, both eyes and all related structures Sclera: sclerae normal Pupils: Equal, round and reactive pupils present EOM: EOMs intact bilaterally Resp: Effort & Inspection: normal respiratory effort Auscultation: clear to auscultation bilaterally Cardio: Rate: regular rate Rhythm: regular rhythm Other: S1-S2 present without murmur, rub, ectopy GI: Other: Abdomen soft, nondistended, nontender. Normoactive bowel sounds in all quadrants. Skin: General skin exam: normal color and no rashes or lesions noted Wounds: no wounds Neuro: Cranial nerves: Yes Equal, round and reactive pupils present Speech: normal speech Motor exam (neuro): 5/5 motor strength present throughout Sensory Exam: normal sensation Other: A&O x4, no facial droop or dysarthria appreciated. No gaze palsy. Extrem: General: normal to inspection Psych: Mental Status: mental status grossly normal Affect: normal affect Other: Good insight and judgment, pleasant Objective Data Vital Signs Vital Signs: Vital Signs - 24 hr 04/04/25 20:00 04/04/25 20:00 04/04/25 20:00 Temperature 98.2 F Pulse Rate 84 83 83 Respiratory Rate 16 Blood Pressure 143/73 H Pulse Oximetry 100 Oxygen Delivery Room Air 04/04/25 21:28 04/05/25 00:00 04/05/25 00:00 Temperature 98.3 F Pulse Rate 82 87 83 Respiratory Rate 16 Blood Pressure 133/66 Pulse Oximetry 100 Oxygen Delivery 04/05/25 04:00 04/05/25 08:00 04/05/25 08:00 Temperature 97.5 F L Pulse Rate 78 79 Respiratory Rate 18 Blood Pressure 165/83 H Pulse Oximetry 100 100 Oxygen Delivery Room Air 04/05/25 08:00 04/05/25 08:46 04/05/25 12:00 Temperature Pulse Rate 85 81 78 Respiratory Rate Blood Pressure Pulse Oximetry Oxygen Delivery 04/05/25 13:43 04/05/25 16:00 Temperature Pulse Rate 70 Respiratory Rate Blood Pressure Pulse Oximetry Oxygen Delivery Room Air Intake/Output Intake/Output: Intake & Output 04/02/25 04/03/25 04/04/25 04/05/25 23:59 23:59 23:59 23:59 Intake Total 1440 440 Output Total 55 600 Balance -55 1440 -160 Meds/Results Medications: Active Medications Generic Name Dose Route Start Last Admin Trade Name Freq PRN Reason Stop Dose Admin Acetaminophen 650 mg 04/03/25 16:59 Acetaminophen 325 Mg Tablet PO Q4H PRN Mild Pain (1-3) or Fever Hydrocodone Bitart/Acetaminophen 1 tab 04/03/25 16:59 Hydrocodone/Acetaminophen (*Crx) 5-325 Mg Tablet PO Q4H PRN Pain Rated 4-6 Aspirin 81 mg 04/05/25 09:00 04/05/25 08:46 Aspirin 81 Mg Enteric Tablet PO 81 mg QAM RAVI Administration Atorvastatin Calcium 40 mg 04/05/25 09:00 04/05/25 08:46 Atorvastatin 40 Mg Tablet PO 40 mg DAILY RAVI Administration Carvedilol 12.5 mg 04/03/25 21:00 04/05/25 08:46 Carvedilol 12.5 Mg Tablet PO 12.5 mg Q12HR RAVI Administration Clopidogrel Bisulfate 75 mg 04/05/25 09:00 04/05/25 08:46 Clopidogrel Bisulfate 75 Mg Tablet PO 75 mg QAM RAVI Administration Ergocalciferol 1,250 mcg 04/05/25 09:40 04/05/25 10:18 Ergocalciferol (Vitamin D2) 1,250 Mcg (50,000 Units) Capsule PO 1,250 mcg Fr@0900 RAVI Administration Heparin Sodium (Porcine) 5,000 units 04/04/25 22:00 04/05/25 08:49 Heparin Sodium 5,000 Units/Ml Vial SUB-Q 5,000 units Q8HR RAVI Administration Hydralazine HCl 10 mg 04/03/25 17:04 04/03/25 20:27 Hydralazine Hcl 20 Mg/Ml Vial IV PUSH 10 mg Q8H PRN Administration Blood Pressure - High Albumin Human 50 mls @ 999 mls/hr 04/05/25 10:20 Albutein IVPB 04/06/25 10:19 Q10M PRN HYPOTENSION Ondansetron HCl 4 mg 04/03/25 16:59 Ondansetron Inj 4 Mg/2 Ml Vial IV PUSH Q4H PRN Nausea Sodium Bicarbonate 1,300 mg 04/03/25 18:50 04/05/25 08:46 Sodium Bicarbonate Tab 650 Mg Tablet PO 1,300 mg BIDPC RAVI Administration Trazodone HCl 50 mg 04/04/25 01:38 04/04/25 01:44 Trazodone Hcl 50 Mg Tablet PO 50 mg HS PRN Administration Insomnia Venlafaxine HCl 150 mg 04/04/25 09:00 04/05/25 08:46 Venlafaxine Hcl Xr 75 Mg Cap.Er.24h PO 150 mg DAILY RAVI Administration Radiology Results: ITS Impressions Head CT 04/03/25 13:41 IMPRESSION: 1. No fracture or acute intracranial process. 2. Moderate-sized region of encephalomalacia in the right parieto-occipital region consistent with sequela of old infarct. 3. Moderate scattered nonspecific white matter hypoattenuation consistent with chronic small vessel ischemic disease. 4. Interval development of a salt and pepper appearance to the skull typical of hyperparathyroidism or renal osteodystrophy. Chest X-Ray 04/03/25 13:54 IMPRESSION: No acute process. Renal Ultrasound 04/03/25 20:52 IMPRESSION: No hydronephrosis or renal calculi. Findings suggesting medical renal disease. Brain MRI 04/04/25 11:59 IMPRESSION: 1. Small acute infarcts at the right thalamus and in the right parieto-occipital region along the margins of a small region of encephalomalacia consistent with a prior, now chronic infarct. 2. Couple additional small old lacunar infarcts in the left frontal lobe white matter. 3. Moderate diffuse periventricular predominant nonspecific white matter T2 hyperintensity consistent with chronic small vessel ischemic disease. 4. Decreased T1 fat signal throughout the diploic space of the calvarium with corresponding solid and pepper appearance to the calvarium on prior CT most suggestive of sequela of hyperparathyroidism or renal osteodystrophy. ADDENDUM: 04/05/25 1324 ADDENDUM: Note there is an additional small region of restricted diffusion consistent with acute infarct in the anterior left frontal lobe. Carotid Doppler Study 04/05/25 10:07 IMPRESSION: 1. No significant stenosis. 2. Antegrade flow demonstrated within both vertebral arteries. Brain MRA 04/05/25 13:04 IMPRESSION: 1. Moderate stenosis at the intracranial right vertebral artery and diminutive distal left vertebral artery and basilar artery, bladder to which could be developmental with majority vascular flow to the bilateral posterior cerebral arteries supplied via a significantly larger caliber patent bilateral posterior commuting arteries. 2. Small region of flow to reperfusion associated with acute infarcts in the left frontal lobe, right thalamus and right parieto-occipital region. Labs Labs: Laboratory Results - last 24 hr 04/04/25 04/05/25 04/05/25 19:13 04:34 04:48 WBC RBC Hgb Hct MCV MCH MCHC RDW Plt Count MPV Immature Gran % (Auto) Neut % (Auto) Lymph % (Auto) [place] % (Auto) Eos % (Auto) Baso % (Auto) Lymph # (Auto) [place] # (Auto) Eos # (Auto) Baso # (Auto) Abs Immat Gran (auto) Absolute Neuts (auto) Absolute Nucleated RBC Nucleated RBC % Sodium Potassium Chloride Carbon Dioxide Anion Gap BUN Creatinine Estim Creat Clear Calc Estimated GFR Glucose Hemoglobin A1c Calcium Magnesium Total Bilirubin AST ALT Alkaline Phosphatase Total Protein Albumin Triglycerides 210 H Cholesterol 379 H LDL Cholesterol Direct 203 HDL Direct 42 Vitamin B12 434.0 Vitamin D 25-Hydroxy < 12.8 < 12.8 Folate 7.5 PTH Intact 2436.0 H Hep Bs Antigen Negative Hep Bs Antibody Positive Hepatitis C Ab Screen Negative 04/05/25 04:49 WBC 8.6 RBC 2.75 L Hgb 8.0 L Hct 25.9 L MCV 94.2 MCH 29.1 MCHC 30.9 L RDW 14.3 Plt Count 175 MPV 11.0 H Immature Gran % (Auto) 0.2 Neut % (Auto) 64.8 Lymph % (Auto) 23.3 [place] % (Auto) 8.7 H Eos % (Auto) 2.5 Baso % (Auto) 0.5 Lymph # (Auto) 2.01 [place] # (Auto) 0.8 H Eos # (Auto) 0.2 Baso # (Auto) 0.0 Abs Immat Gran (auto) 0.02 Absolute Neuts (auto) 5.6 Absolute Nucleated RBC 0.000 Nucleated RBC % 0.0 Sodium 136 L Potassium 3.1 L Chloride 110 H Carbon Dioxide 17 L Anion Gap 9 BUN 42 H Creatinine 7.86 H Estim Creat Clear Calc 7 Estimated GFR 5 L Glucose 80 Hemoglobin A1c 4.6 Calcium 10.3 H Magnesium 2.4 H Total Bilirubin 0.4 AST 18 ALT 8 Alkaline Phosphatase 195 H Total Protein 5.8 L Albumin 3.0 L Triglycerides 203 H Cholesterol 353 H LDL Cholesterol Direct 172 HDL Direct 40 Vitamin B12 Vitamin D 25-Hydroxy Folate PTH Intact Hep Bs Antigen Hep Bs Antibody Hepatitis C Ab Screen Quality VTE Prophylaxis VTE prophylaxis: mechanical ordered
[2025-04-06] VITALS (10 sets, daily range): BP systolic 133–145; BP diastolic 62–73; PULSE 76–92; RESP 16–20; TEMP 36.7–37; O2SAT 97–100
[2025-04-06 05:10] LABS: Hematocrit 27.8 % (37.0-47.0); Hemoglobin 8.2 g/dL (12.0-15.0); Immature Granulocyte Percent A 0.6 % (0-0.5); Lymphocytes Absolute Auto 0.64 K/mm3 (0.9-3.2); Mean Corpuscular HGB Conc 29.5 g/dl (32-36); Mean Corpuscular Hemoglobin 28.6 pg (26-34); Mean Corpuscular Volume 96.9 fl (80-100); Nucleated Red Blood Cells Absolute Auto 0.000 K/mm3 (0.0-0.012); Nucleated Red Blood Cells Perc 0.0 % (0.0-0.2); Platelet Count Result 173 k/mm3 (150-375); Red Blood Count 2.87 M/mm3 (4.2-5.4); White Blood Count 7.2 K/mm3 (4.5-10.0)
[2025-04-06 05:27] LABS: Alanine Aminotransferase 9 U/L (6-35); Albumin Level 3.1 g/dL (3.5-5.1); Alkaline Phosphatase 190 U/L (38-126); Anion Gap 9 mmol/L (4-12); Aspartate Amino Transferase 20 U/L (14-36); Bilirubin,Total 0.4 mg/dL (0.2-1.3); Blood Urea Nitrogen 45 mg/dL (7-17); Calcium 9.7 mg/dL (8.4-10.2); Carbon Dioxide 18 mmol/L (22-30); Chloride 109 mmol/L (98-107); Estimated CRCL calculation 7 ml/min; Estimated Glomerular Filt Rate 5; Glucose 73 mg/dL (65-110); Magnesium 2.4 mg/dL (1.6-2.3); Potassium 2.9 mmol/L (3.4-5.0); Sodium 136 mmol/L (137-145); Total Protein 5.9 g/dL (6.3-8.2)
[2025-04-06] MEDS: VENLAFAXINE HCL XR 75 MG CAP.ER.24H 150 MG PO (09:05)
[2025-04-06] MEDS: ASPIRIN 81 MG ENTERIC TABLET PO (09:06)
[2025-04-06] MEDS: ATORVASTATIN 40 MG TABLET PO (09:06)
[2025-04-06] MEDS: SODIUM BICARBONATE TAB 650 MG TABLET 1300 MG PO ×2 (09:06→16:38)
[2025-04-06] MEDS: POTASSIUM CHLORIDE 20 MEQ ER TABLET 40 MEQ PO (09:06)
[2025-04-06] MEDS: CLOPIDOGREL BISULFATE 75 MG TABLET PO (09:07)
[2025-04-06] MEDS: ACETAMINOPHEN 325 MG TABLET 650 MG PO (09:07)
[2025-04-06] MEDS: ONDANSETRON INJ 4 MG/2 ML VIAL IV PUSH (09:16)
--- NOTE | 2025-04-06 09:30 | PC.NURSE ---
This RN gave report to ed RNMarie. Patient transferred to room 349 @ 0930.
--- NOTE | 2025-04-06 10:30 | P.PNNP_ITS ---
Progress Note: A&P Assessment and Plan (1) Stage 5 chronic kidney disease: Code(s): N18.5 - Chronic kidney disease, stage 5 Status: Acute Assessment and Plan: * suspect progression of disease rather than an acute insult * last creatinine was 5.0mg/dl (with a GFR of 9cc/min) in June 2024 * was scheduled for AV access placement in anticipation of [employer]/hemodialysis but this never occurred due to insurance issues * she also did not follow-up with Dr. Colmenares after her June 2024 appointment... 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 several years ago * testing noted on this admission: * renal ultrasound c/w medical renal disease * urine eosinophils negative * nephrotic range proteinuria * urine electrolytes non-prerenal * I do not think that the nausea was uremia necessarily but if it continues then it might make it more likely. * Will start pantoprazole * Surgery saw the patient and the tunneled dialysis catheter will happen on Tuesday. * hepatitis studies pending (2) Fall: Qualifiers: Encounter type: initial encounter Qualified Code(s): W19.XXXA - Unspecified fall, initial encounter Code(s): W19.XXXA - Unspecified fall, initial encounter Status: Acute Assessment and Plan: * frequent falls x 1 week prior to admission * CT of head noted: * no fracture or acute intracranial process * moderate-sized region of encephalomalacia in the right parieto-occipital region consistent with sequela of old infarct * moderate scattered nonspecific white matter hypoattenuation consistent with chronic small vessel ischemic disease * interval development of a salt and pepper appearance to the skull typical of hyperparathyroidism or renal osteodystrophy * MRI of brain noted. * Neurology consultation underway. * fall precautions * PT/OT evaluation * Treat with atorvastatin (3) Hypertension: Qualifiers: Hypertension type: secondary to other renal disorders Qualified Code(s): I15.1 - Hypertension secondary to other renal disorders; N28.89 - Other specified disorders of kidney and ureter Code(s): I10 - Essential (primary) hypertension Status: Chronic Assessment and Plan: * poor control on admission * resumed on home medications with improvement * Currently on carvedilol and p.r.n. hydralazine. * Systolic in the 130s to 160s since yesterday at noon. Will follow going forward for trending. (4) Metabolic acidosis: Code(s): E87.20 - Acidosis, unspecified Status: Acute Assessment and Plan: * secondary to advanced CKD * on oral sodium bicarbonate 1300mg twice a day to compensate (5) Anemia: Qualifiers: Anemia type: due to chronic kidney disease Chronic kidney disease stage: stage 5 (GFR < 15), not on chronic dialysis Qualified Code(s): N18.5 - Chronic kidney disease, stage 5; D63.1 - Anemia in chronic kidney disease Code(s): D64.9 - Anemia, unspecified Status: Acute Assessment and Plan: * likely related advanced CKD * anemia studies with adequate iron stores * consider empiric MARCO while hospitalized. Will wait for blood pressure to drop a little bit more. * Hemoglobin the same today as yesterday at 8.0. (6) Hypercalcemia: Code(s): E83.52 - Hypercalcemia Status: Acute Assessment and Plan: * elevated on admission but better currently * extensive outpatient work-up reviewed: * 24 hour urine immunofixation with assymetrical beta and gamma regions * 24hr urine calcium + creatinine suggestive of primary or tertiary hyperparathyroidism * Vitamin A, THOM level, and PTHrp okay * Nuc Med Parathyroid scan negative * suspect a combination of primary mixed with secondary hyperparathyroidism * Calcium level is a little bit better. Consider starting cinacalcet will see what the PTH a (7) Diet-controlled type 2 diabetes mellitus: Code(s): E11.9 - Type 2 diabetes mellitus without complications Status: Chronic Assessment and Plan: * follow accu-cheks * not currently on any diabetic medications (8) Renal osteodystrophy: Code(s): N25.0 - Renal osteodystrophy Status: Acute Assessment and Plan: PTH is very high. Vitamin-D is low. Calcium is generous. This may be tertiary hyperparathyroidism Will treat with vitamin-D and also with cinacalcet. Will see if we can get the PTH under better control with medicine alone Subjective Date/time seen: 04/06/25 10:30 Interval history: Gena had some nausea this morning. She was given ondansetron it feels better. No shortness of breath. No more dizzy/spacey episodes. Exam Narrative: WDWN in NAD skin no rash or subcu nodule head ncat lungs clear cor reg no rub or gallop abd BS+ nontender and soft ext no edema. Objective Data Vital Signs Vital Signs: Vital Signs - 24 hr 04/05/25 12:00 04/05/25 13:43 04/05/25 16:00 Temperature Pulse Rate 78 70 Respiratory Rate Blood Pressure Pulse Oximetry Oxygen Delivery Room Air 04/05/25 16:00 04/05/25 20:00 04/05/25 20:00 Temperature 97.7 F 98.4 F Pulse Rate 72 82 81 Respiratory Rate 18 16 Blood Pressure 159/66 H 156/68 H Pulse Oximetry 100 100 Oxygen Delivery 04/05/25 20:40 04/05/25 21:19 04/06/25 00:00 Temperature 98.6 F Pulse Rate 82 90 81 Respiratory Rate 16 16 Blood Pressure 142/68 H Pulse Oximetry 100 100 Oxygen Delivery Room Air 04/06/25 00:00 04/06/25 04:00 04/06/25 08:00 Temperature 98.1 F Pulse Rate 76 82 86 Respiratory Rate 16 Blood Pressure 145/67 H Pulse Oximetry 100 Oxygen Delivery 04/06/25 08:00 04/06/25 08:00 04/06/25 09:06 Temperature Pulse Rate 82 80 Respiratory Rate Blood Pressure Pulse Oximetry 100 Oxygen Delivery Room Air Intake/Output Intake/Output: Intake & Output 04/03/25 04/04/25 04/05/25 04/06/25 23:59 23:59 23:59 23:59 Intake Total 1440 1160 180 Output Total 55 1200 Balance -55 1440 -40 180 Meds/Results Medications: Active Medications Generic Name Dose Route Start Last Admin Trade Name Freq PRN Reason Stop Dose Admin Acetaminophen 650 mg 04/03/25 16:59 04/06/25 09:07 Acetaminophen 325 Mg Tablet PO 650 mg Q4H PRN Administration Mild Pain (1-3) or Fever Hydrocodone Bitart/Acetaminophen 1 tab 04/03/25 16:59 Hydrocodone/Acetaminophen (*Crx) 5-325 Mg Tablet PO Q4H PRN Pain Rated 4-6 Aspirin 81 mg 04/05/25 09:00 04/06/25 09:06 Aspirin 81 Mg Enteric Tablet PO 81 mg QAM [facility] Administration Atorvastatin Calcium 40 mg 04/05/25 09:00 04/06/25 09:06 Atorvastatin 40 Mg Tablet PO 40 mg DAILY RAVI Administration Carvedilol 12.5 mg 04/03/25 21:00 04/06/25 09:06 Carvedilol 12.5 Mg Tablet PO 12.5 mg Q12HR [facility] Administration Clopidogrel Bisulfate 75 mg 04/05/25 09:00 04/06/25 09:07 Clopidogrel Bisulfate 75 Mg Tablet PO 75 mg QAM [facility] Administration Docusate Sodium 100 mg 04/06/25 21:00 Docusate Sodium 100 Mg Capsule PO Q12HR [facility] Ergocalciferol 1,250 mcg 04/05/25 09:40 04/05/25 10:18 Ergocalciferol (Vitamin D2) 1,250 Mcg (50,000 Units) Capsule PO 1,250 mcg Fr@0900 [facility] Administration Heparin Sodium (Porcine) 5,000 units 04/04/25 22:00 04/05/25 08:49 Heparin Sodium 5,000 Units/Ml Vial SUB-Q 5,000 units Q8HR [facility] Administration Hydralazine HCl 10 mg 04/03/25 17:04 04/03/25 20:27 Hydralazine Hcl 20 Mg/Ml Vial IV PUSH 10 mg Q8H PRN Administration Blood Pressure - High Ondansetron HCl 4 mg 04/03/25 16:59 04/06/25 09:16 Ondansetron Inj 4 Mg/2 Ml Vial IV PUSH 4 mg Q4H PRN Administration Nausea Polyethylene Glycol 17 gm 04/06/25 09:25 04/06/25 09:29 Polyethylene Glycol 3350 17 Gm Powd.Pack PO 17 gm QAM RAVI Administration Sodium Bicarbonate 1,300 mg 04/03/25 18:50 04/06/25 09:06 Sodium Bicarbonate Tab 650 Mg Tablet PO 1,300 mg BIDPC RAVI Administration Trazodone HCl 50 mg 04/04/25 01:38 04/05/25 21:19 Trazodone Hcl 50 Mg Tablet PO 50 mg HS PRN Administration Insomnia Venlafaxine HCl 150 mg 04/04/25 09:00 04/06/25 09:05 Venlafaxine Hcl Xr 75 Mg Cap.Er.24h PO 150 mg DAILY RAVI Administration Radiology Results: ITS Impressions Head CT 04/03/25 13:41 IMPRESSION: 1. No fracture or acute intracranial process. 2. Moderate-sized region of encephalomalacia in the right parieto-occipital region consistent with sequela of old infarct. 3. Moderate scattered nonspecific white matter hypoattenuation consistent with chronic small vessel ischemic disease. 4. Interval development of a salt and pepper appearance to the skull typical of hyperparathyroidism or renal osteodystrophy. Chest X-Ray 04/03/25 13:54 IMPRESSION: No acute process. Renal Ultrasound 04/03/25 20:52 IMPRESSION: No hydronephrosis or renal calculi. Findings suggesting medical renal disease. Brain MRI 04/04/25 11:59 IMPRESSION: 1. Small acute infarcts at the right thalamus and in the right parieto-occipital region along the margins of a small region of encephalomalacia consistent with a prior, now chronic infarct. 2. Couple additional small old lacunar infarcts in the left frontal lobe white matter. 3. Moderate diffuse periventricular predominant nonspecific white matter T2 hyperintensity consistent with chronic small vessel ischemic disease. 4. Decreased T1 fat signal throughout the diploic space of the calvarium with corresponding solid and pepper appearance to the calvarium on prior CT most suggestive of sequela of hyperparathyroidism or renal osteodystrophy. ADDENDUM: 04/05/25 1324 ADDENDUM: Note there is an additional small region of restricted diffusion consistent with acute infarct in the anterior left frontal lobe. Carotid Doppler Study 04/05/25 10:07 IMPRESSION: 1. No significant stenosis. 2. Antegrade flow demonstrated within both vertebral arteries. Brain MRA 04/05/25 13:04 IMPRESSION: 1. Moderate stenosis at the intracranial right vertebral artery and diminutive distal left vertebral artery and basilar artery, bladder to which could be developmental with majority vascular flow to the bilateral posterior cerebral arteries supplied via a significantly larger caliber patent bilateral posterior commuting arteries. 2. Small region of flow to reperfusion associated with acute infarcts in the left frontal lobe, right thalamus and right parieto-occipital region. Labs Labs: Laboratory Results - last 24 hr 04/05/25 04/05/25 04/06/25 04:34 04:48 04:23 WBC 7.2 RBC 2.87 L Hgb 8.2 L Hct 27.8 L MCV 96.9 MCH 28.6 MCHC 29.5 L RDW 14.2 Plt Count 173 MPV 11.9 H Immature Gran % (Auto) 0.6 H Neut % (Auto) 80.8 H Lymph % (Auto) 8.9 L [place] % (Auto) 5.3 Eos % (Auto) 4.0 Baso % (Auto) 0.4 Lymph # (Auto) 0.64 L [place] # (Auto) 0.4 Eos # (Auto) 0.3 Baso # (Auto) 0.0 Abs Immat Gran (auto) 0.04 H Absolute Neuts (auto) 5.8 Absolute Nucleated RBC 0.000 Nucleated RBC % 0.0 Sodium 136 L Potassium 2.9 L Chloride 109 H Carbon Dioxide 18 L Anion Gap 9 BUN 45 H Creatinine 7.95 H Estim Creat Clear Calc 7 Estimated GFR 5 L Glucose 73 Calcium 9.7 Phosphorus 4.7 H Magnesium 2.4 H Total Bilirubin 0.4 AST 20 ALT 9 Alkaline Phosphatase 190 H Total Protein 5.9 L Albumin 3.1 L Vitamin D 25-Hydroxy < 12.8 PTH Intact 2436.0 H Hep Bs Antigen Negative Hep Bs Antibody Positive Hepatitis C Ab Screen Negative
[2025-04-06] MEDS: PANTOPRAZOLE SOD SESQUIHYDRATE 20 MG TAB PO (12:07)
--- NOTE | 2025-04-06 12:49 | PM.IMPN ---
Progress Note: A&P Assessment and Plan (1) Chronic kidney disease, stage 5: Code(s): N18.5 - Chronic kidney disease, stage 5 Status: Acute Assessment and Plan: - previous history of SAEID/rhabdomyolysis resulting in need for temporary dialysis. Per last Nephrology note in June of 2024 - creatinine 8.7, BUN 39, GFR 5. Previously 5.0, BUN 35, GFR 9 in June of 2024. Cr 8.2, us renal normal patient noted she was once on dialysis about a year ago GEn surgery consulted for dialysis catheter placement Nephrology following (2) Fall: Qualifiers: Encounter type: initial encounter Qualified Code(s): W19.XXXA - Unspecified fall, initial encounter Code(s): W19.XXXA - Unspecified fall, initial encounter Status: Acute Assessment and Plan: - reported frequent falls for the past week - new CVA seen on CT, not previously appreciated on brain MRI that was completed in April of 2023. Will check MR brain with/without to better assess. - PT/OT evaluation for rehab services - will hold off on care coordination consultation, await PT/OT recommendations - fall precaution - UA and CXR negative for findings for infection (3) Anemia: Qualifiers: Anemia type: due to chronic kidney disease Chronic kidney disease stage: stage 5 (GFR < 15), not on chronic dialysis Qualified Code(s): N18.5 - Chronic kidney disease, stage 5; D63.1 - Anemia in chronic kidney disease Code(s): D64.9 - Anemia, unspecified Status: Acute Assessment and Plan: - Hgb 9.2, previously 9.2 in June 2024 - Hx of CKD stage 4, anemia in setting of chronic disease - transfuse if <7 - trend CBC (4) Hypertension: Qualifiers: Hypertension type: secondary to other renal disorders Qualified Code(s): I15.1 - Hypertension secondary to other renal disorders; N28.89 - Other specified disorders of kidney and ureter Code(s): I10 - Essential (primary) hypertension Status: Chronic Assessment and Plan: - chronic, previously not well controlled. Arrived . Currently a 187/. - continue home medications: Carvedilol - monitor (5) Diet-controlled type 2 diabetes mellitus: Code(s): E11.9 - Type 2 diabetes mellitus without complications Status: Chronic Assessment and Plan: - not currently on any diabetic medications, diet controlled - initial glucose 128 - A1c 6.0 on 05/02/2024, update Plan Acute stroke patient presented after a fall MRI showed acute right thalamus infarct ECHo showed EF 55-60% with grade I diastolic dysfunction MRA no significant stenosis A1c 4.6, LDL 172 PT/OT/ST Neurology following Aspirin and Plavix Vit D deficiency stared on replacement 50k units weeks x 8 weeks Monitor Diet: Renal DVT Prophylaxis: Sq heparin Code Status: Full code Subjective Date/time seen: 04/06/25 12:49 Interval history: Comfortable at bedisde For dialysis catheter on Tuesday and possibel dialysis Review of Systems Review of Systems: All systems reviewed & are unremarkable except as noted in HPI and below Exam Const: General: comfortable and no acute distress Other: , female, nontoxic appearance HENMT: Face/Nose/Sinus: Normal nares present Mouth: Yes moist mucous membranes Eyes: General: appearance normal, both eyes and all related structures Sclera: sclerae normal Pupils: Equal, round and reactive pupils present EOM: EOMs intact bilaterally Resp: Effort & Inspection: normal respiratory effort Auscultation: clear to auscultation bilaterally Cardio: Rate: regular rate Rhythm: regular rhythm Other: S1-S2 present without murmur, rub, ectopy GI: Other: Abdomen soft, nondistended, nontender. Normoactive bowel sounds in all quadrants. Skin: General skin exam: normal color and no rashes or lesions noted Wounds: no wounds Neuro: Cranial nerves: Yes Equal, round and reactive pupils present Speech: normal speech Motor exam (neuro): 5/5 motor strength present throughout Sensory Exam: normal sensation Other: A&O x4, no facial droop or dysarthria appreciated. No gaze palsy. Extrem: General: normal to inspection Psych: Mental Status: mental status grossly normal Affect: normal affect Other: Good insight and judgment, pleasant Objective Data Vital Signs Vital Signs: Vital Signs - 24 hr 04/05/25 13:43 04/05/25 16:00 04/05/25 16:00 Temperature 97.7 F Pulse Rate 70 72 Respiratory Rate 18 Blood Pressure 159/66 H Pulse Oximetry 100 Oxygen Delivery Room Air 04/05/25 20:00 04/05/25 20:00 04/05/25 20:40 Temperature 98.4 F Pulse Rate 82 81 82 Respiratory Rate 16 16 Blood Pressure 156/68 H Pulse Oximetry 100 100 Oxygen Delivery Room Air 04/05/25 21:19 04/06/25 00:00 04/06/25 00:00 Temperature 98.6 F Pulse Rate 90 81 76 Respiratory Rate 16 Blood Pressure 142/68 H Pulse Oximetry 100 Oxygen Delivery 04/06/25 04:00 04/06/25 08:00 04/06/25 08:00 Temperature 98.1 F Pulse Rate 82 86 Respiratory Rate 16 Blood Pressure 145/67 H Pulse Oximetry 100 100 Oxygen Delivery Room Air 04/06/25 08:00 04/06/25 09:06 Temperature Pulse Rate 82 80 Respiratory Rate Blood Pressure Pulse Oximetry Oxygen Delivery Intake/Output Intake/Output: Intake & Output 04/03/25 04/04/25 04/05/25 04/06/25 23:59 23:59 23:59 23:59 Intake Total 1440 1160 420 Output Total 55 1200 Balance -55 1440 -40 420 Meds/Results Medications: Active Medications Generic Name Dose Route Start Last Admin Trade Name Freq PRN Reason Stop Dose Admin Acetaminophen 650 mg 04/03/25 16:59 04/06/25 09:07 Acetaminophen 325 Mg Tablet PO 650 mg Q4H PRN Administration Mild Pain (1-3) or Fever Hydrocodone Bitart/Acetaminophen 1 tab 04/03/25 16:59 Hydrocodone/Acetaminophen (*Crx) 5-325 Mg Tablet PO Q4H PRN Pain Rated 4-6 Aspirin 81 mg 04/05/25 09:00 04/06/25 09:06 Aspirin 81 Mg Enteric Tablet PO 81 mg QAM RAVI Administration Atorvastatin Calcium 40 mg 04/05/25 09:00 04/06/25 09:06 Atorvastatin 40 Mg Tablet PO 40 mg DAILY RAVI Administration Carvedilol 12.5 mg 04/03/25 21:00 04/06/25 09:06 Carvedilol 12.5 Mg Tablet PO 12.5 mg Q12HR RAVI Administration Cinacalcet 30 mg 04/06/25 17:00 Cinacalcet 30 Mg Tablet PO Q24H RAVI Clopidogrel Bisulfate 75 mg 04/05/25 09:00 04/06/25 09:07 Clopidogrel Bisulfate 75 Mg Tablet PO 75 mg QAM RAVI Administration Docusate Sodium 100 mg 04/06/25 21:00 Docusate Sodium 100 Mg Capsule PO Q12HR RAVI Ergocalciferol 1,250 mcg 04/05/25 09:40 04/05/25 10:18 Ergocalciferol (Vitamin D2) 1,250 Mcg (50,000 Units) Capsule PO 1,250 mcg Fr@0900 RAVI Administration Heparin Sodium (Porcine) 5,000 units 04/04/25 22:00 04/05/25 08:49 Heparin Sodium 5,000 Units/Ml Vial SUB-Q 5,000 units Q8HR RAVI Administration Hydralazine HCl 10 mg 04/03/25 17:04 04/03/25 20:27 Hydralazine Hcl 20 Mg/Ml Vial IV PUSH 10 mg Q8H PRN Administration Blood Pressure - High Ondansetron HCl 4 mg 04/03/25 16:59 04/06/25 09:16 Ondansetron Inj 4 Mg/2 Ml Vial IV PUSH 4 mg Q4H PRN Administration Nausea Pantoprazole Sodium 20 mg 04/06/25 10:35 04/06/25 12:07 Pantoprazole Sod Sesquihydrate 20 Mg Tab PO 20 mg QAM RAVI Administration Polyethylene Glycol 17 gm 04/06/25 09:25 04/06/25 09:29 Polyethylene Glycol 3350 17 Gm Powd.Pack PO 17 gm QAM RAVI Administration Sodium Bicarbonate 1,300 mg 04/03/25 18:50 04/06/25 09:06 Sodium Bicarbonate Tab 650 Mg Tablet PO 1,300 mg BIDPC RAVI Administration Trazodone HCl 50 mg 04/04/25 01:38 04/05/25 21:19 Trazodone Hcl 50 Mg Tablet PO 50 mg HS PRN Administration Insomnia Venlafaxine HCl 150 mg 04/04/25 09:00 04/06/25 09:05 Venlafaxine Hcl Xr 75 Mg Cap.Er.24h PO 150 mg DAILY RAVI Administration Radiology Results: ITS Impressions Head CT 04/03/25 13:41 IMPRESSION: 1. No fracture or acute intracranial process. 2. Moderate-sized region of encephalomalacia in the right parieto-occipital region consistent with sequela of old infarct. 3. Moderate scattered nonspecific white matter hypoattenuation consistent with chronic small vessel ischemic disease. 4. Interval development of a salt and pepper appearance to the skull typical of hyperparathyroidism or renal osteodystrophy. Chest X-Ray 04/03/25 13:54 IMPRESSION: No acute process. Renal Ultrasound 04/03/25 20:52 IMPRESSION: No hydronephrosis or renal calculi. Findings suggesting medical renal disease. Brain MRI 04/04/25 11:59 IMPRESSION: 1. Small acute infarcts at the right thalamus and in the right parieto-occipital region along the margins of a small region of encephalomalacia consistent with a prior, now chronic infarct. 2. Couple additional small old lacunar infarcts in the left frontal lobe white matter. 3. Moderate diffuse periventricular predominant nonspecific white matter T2 hyperintensity consistent with chronic small vessel ischemic disease. 4. Decreased T1 fat signal throughout the diploic space of the calvarium with corresponding solid and pepper appearance to the calvarium on prior CT most suggestive of sequela of hyperparathyroidism or renal osteodystrophy. ADDENDUM: 04/05/25 1324 ADDENDUM: Note there is an additional small region of restricted diffusion consistent with acute infarct in the anterior left frontal lobe. Carotid Doppler Study 04/05/25 10:07 IMPRESSION: 1. No significant stenosis. 2. Antegrade flow demonstrated within both vertebral arteries. Brain MRA 04/05/25 13:04 IMPRESSION: 1. Moderate stenosis at the intracranial right vertebral artery and diminutive distal left vertebral artery and basilar artery, bladder to which could be developmental with majority vascular flow to the bilateral posterior cerebral arteries supplied via a significantly larger caliber patent bilateral posterior commuting arteries. 2. Small region of flow to reperfusion associated with acute infarcts in the left frontal lobe, right thalamus and right parieto-occipital region. Labs Labs: Laboratory Results - last 24 hr 04/05/25 04/06/25 04:48 04:23 WBC 7.2 RBC 2.87 L Hgb 8.2 L Hct 27.8 L MCV 96.9 MCH 28.6 MCHC 29.5 L RDW 14.2 Plt Count 173 MPV 11.9 H Immature Gran % (Auto) 0.6 H Neut % (Auto) 80.8 H Lymph % (Auto) 8.9 L Sutton % (Auto) 5.3 Eos % (Auto) 4.0 Baso % (Auto) 0.4 Lymph # (Auto) 0.64 L [place] # (Auto) 0.4 Eos # (Auto) 0.3 Baso # (Auto) 0.0 Abs Immat Gran (auto) 0.04 H Absolute Neuts (auto) 5.8 Absolute Nucleated RBC 0.000 Nucleated RBC % 0.0 Sodium 136 L Potassium 2.9 L Chloride 109 H Carbon Dioxide 18 L Anion Gap 9 BUN 45 H Creatinine 7.95 H Estim Creat Clear Calc 7 Estimated GFR 5 L Glucose 73 Calcium 9.7 Phosphorus 4.7 H Magnesium 2.4 H Total Bilirubin 0.4 AST 20 ALT 9 Alkaline Phosphatase 190 H Total Protein 5.9 L Albumin 3.1 L Vitamin D 25-Hydroxy < 12.8 Hep Bs Antigen Negative Hep Bs Antibody Positive Hepatitis C Ab Screen Negative Quality VTE Prophylaxis VTE prophylaxis: mechanical ordered
--- NOTE | 2025-04-06 15:10 | P.CONGS_ITS ---
Assessment and Plan Assessment and plan (1) Stage 5 chronic kidney disease: Code(s): N18.5 - Chronic kidney disease, stage 5 Status: Acute Assessment and Plan: * Patient is in need of dialysis access. She has had a tunneled dialysis catheter in place in the past but this has since been removed. Will plan to proceed with tunneled dialysis catheter placement on Tuesday. Discussed that catheter placement can be more difficult due to prior access of these vessels. If there is any significant difficulty with cannulating either of the internal jugular veins, then she could require referral to a vascular surgeon for definitive access. I have discussed the procedure, risks, benefits, and alternatives. Questions were answered. Patient is currently on Plavix for her recent CVA. Will likely have to continue this with the slight increased risks of bleeding because risks of worsening infarct if Plavix were held would be far worse. (2) Type 2 diabetes mellitus with diabetic chronic kidney disease: Code(s): E11.22 - Type 2 diabetes mellitus with diabetic chronic kidney disease Status: Chronic (3) Acute right arterial ischemic stroke, MCA (middle cerebral artery): Code(s): I63.511 - Cerebral infarction due to unspecified occlusion or stenosis of right middle cerebral artery Status: Acute History of Present Illness Consult details Consult date: 04/06/25 Reason for consult: other (dialysis access) Requesting physician: Praful Colmenares MD Narrative: this is a 64-year-old woman who I am asked to see for placement of a tunneled dialysis catheter. She has worsening chronic renal failure and is in need of hemodialysis in the near future. She was admitted on 04/03/2025 for frequent falls and generalized weakness. She was found have evidence of CVA. She has chronic renal failure and has been on hemodialysis in the past. She was being evaluated for AV fistula placement but has not undergone the procedure yet. She will likely need hemodialysis sooner than it would take to heal from an AV fistula surgery. Dialysis catheter placement has been requested during this hospitalization. Review of Systems 2 Review of Systems: All systems reviewed & are unremarkable except as noted in HPI and below Eyes: Eyes: Denies change in vision ENT: Denies hearing loss, Denies neck pain and Denies sore throat Cardiovascular: Cardiovascular: Denies chest pain and Denies dyspnea Respiratory: Respiratory: Denies cough, Denies dyspnea and Denies wheezing Genitourinary: Genitourinary: Denies hematuria and Denies dysuria Musculoskeletal: Musculoskeletal: Denies arthralgias, Denies joint swelling and Denies neck pain Allergic/Immunologic: Allergic/Immunologic: Denies wheezing PMFSH Past Medical History Medical History (Updated 04/06/25 @ 10:35 by Praful Colmenares MD) Fall Acute right arterial ischemic stroke, MCA (middle cerebral artery) Chronic kidney disease, stage 5 Cancer of right breast (2004) Status post chemotherapy and mastectomy. Diabetic peripheral neuropathy Obesity (BMI 30-39.9) Essential hypertension End-stage renal disease on hemodialysis Chronic kidney disease due to hypertension and diabetes with final insult kidneys with severe rhabdomyolysis March 2023. Vitamin D deficiency Type 2 diabetes mellitus Anemia Normal colonoscopy (07/2011) Primary hyperparathyroidism (11/2020) Vaginal polyp Depression Anxiety Surgical History Surgical History History of right mastectomy History of hysteroscopy (2020) Family History Family History Mother Family history of lung cancer Hypertension Grandparent Cerebrovascular accident Diabetes mellitus Hypertension Son Family history of cardiovascular disease Heart disease Hypertension Father Unknown family medical history Social History Social History Social History: Surrogate decision maker: Adry Smith (sister). Code status: Full code. Smoking packs per day: 0.5 Smoking cigarettes per day: 10.0 Years smoked: 20 Smoking pack-years: 10.00 Smoking status: Former smoker Tobacco type: cigarettes Second hand tobacco smoke exposure: Yes Alcohol intake: never Alcohol use details: Very seldom Substance use: never Substance use type: does not use Do You Feel Safe in your Home?: Yes Lack of Transportation: No Lack of Food: Never True Current Housing: I Have Housing Concerned About Future Housing: No Difficulty Paying Gas/Electric Bills: No Difficulty Paying for Meds: No Currently Unemployed: No Education: High School Diploma/GED Difficulty w/ Childcare or Family Care: No Additional living arrangements comments: Lives in [place]. Additional occupation/education comments: Retired. Sexual Orientation (if Verbalized by the Patient): Straight or Heterosexual Spiritual care concerns: No Agree to blood products: Yes Meds Home Medications and Allergies Home Medications ?Medication ?Instructions ?Recorded ?Confirmed ?Type sodium bicarbonate 650 mg tablet 1,300 mg (2 x 650 mg) PO BIDPC #60 05/08/24 04/03/25 Rx tabs carvedilol 12.5 mg tablet 12.5 mg PO Q12H #180 tabs 08/01/24 04/03/25 Rx venlafaxine 150 mg See Rx Instructions .Route 12/04/24 04/03/25 Rx capsule,extended release 24 hr .COMPLEX #90 caps Allergies Allergy/AdvReac Type Severity Reaction Status Date / Time lactose AdvReac Mild Gastrointestinal Verified 04/06/25 13:09 Upset Vital Signs Vital Signs - 24 hr 04/05/25 16:00 04/05/25 16:00 04/05/25 20:00 Temperature 97.7 F 98.4 F Pulse Rate 70 72 82 Respiratory Rate 18 16 Blood Pressure 159/66 H 156/68 H Pulse Oximetry 100 100 Oxygen Delivery 04/05/25 20:00 04/05/25 20:40 04/05/25 21:19 Temperature Pulse Rate 81 82 90 Respiratory Rate 16 Blood Pressure Pulse Oximetry 100 Oxygen Delivery Room Air 04/06/25 00:00 04/06/25 00:00 04/06/25 04:00 Temperature 98.6 F Pulse Rate 81 76 82 Respiratory Rate 16 Blood Pressure 142/68 H Pulse Oximetry 100 Oxygen Delivery 04/06/25 08:00 04/06/25 08:00 04/06/25 08:00 Temperature 98.1 F Pulse Rate 86 82 Respiratory Rate 16 Blood Pressure 145/67 H Pulse Oximetry 100 100 Oxygen Delivery Room Air 04/06/25 09:06 04/06/25 12:00 Temperature Pulse Rate 80 80 Respiratory Rate Blood Pressure Pulse Oximetry Oxygen Delivery Exam 2 Const: General: alert; No acute distress Orientation/consciousness: patient oriented x3 Limitations: no limitations HENMT: Head: normocephalic and atraumatic Ears: hearing grossly normal bilaterally Face/Nose/Sinus: Normal external nose present and Normal nares present Mouth: Yes Normal oral and palatal mucosa present and Yes moist mucous membranes Eyes: General: appearance normal, both eyes and all related structures C onjunctivae: conjunctivae normal Sclera: sclerae normal Pupils: Equal, round and reactive pupils present EOM: EOMs intact bilaterally Neck: Neck: normal visual inspection, full ROM, no lymphadenopathy, supple and no JVD Lymphatic: no lymphadenopathy noted Chest: Chest palpation & inspection: normal inspection of the chest Resp: Effort & Inspection: normal respiratory effort and able to speak in complete sentences Auscultation: clear to auscultation bilaterally P ercussion: percussion normal Cardio: Jugular venous distension: no JVD Rate: regular rate Rhythm: r egular rhythm Heart sounds: S1 normal heart sound present and S2 normal heart sound present Peripheral pulses: Peripheral pulses 2+ throughout GI: Inspection: normal to inspection Auscultation: normal bowel sounds : General: Yes no CVA tenderness Back/Spine/Pelvis: Back: no CVA tenderness Skin: General skin exam: normal color and dry skin Neuro: General: patient oriented x3, gait normal, moves all extremities, no focal motor deficits and CN's II-XI intact bilaterally Cranial nerves: Yes Equal, round and reactive pupils present Speech: normal speech Extrem: General: normal to inspection and capillary refill normal Results Labs 04/06/25 04:23 04/06/25 04:23 Labs: Abnormal lab results 04/06/25 Range/Units 04:23 RBC 2.87 L (4.2-5.4) M/mm3 Hgb 8.2 L (12.0-15.0) g/dL Hct 27.8 L (37.0-47.0) % MCHC 29.5 L (32-36) g/dl MPV 11.9 H (7.4-10.4) fl Immature Gran % (Auto) 0.6 H (0-0.5) % Neut % (Auto) 80.8 H (45.5-73.1) % Lymph % (Auto) 8.9 L (18.3-44.2) % Lymph # (Auto) 0.64 L (0.9-3.2) K/mm3 Abs Immat Gran (auto) 0.04 H (0.00-0.031) K/mm3 Sodium 136 L (137-145) mmol/L Potassium 2.9 L (3.4-5.0) mmol/L Chloride 109 H (98-107) mmol/L Carbon Dioxide 18 L (22-30) mmol/L BUN 45 H (7-17) mg/dL Creatinine 7.95 H (0.7-1.0) mg/dL Estimated GFR 5 L (59 - ) Phosphorus 4.7 H (2.5-4.5) mg/dL Magnesium 2.4 H (1.6-2.3) mg/dL Alkaline Phosphatase 190 H (38-126) U/L Total Protein 5.9 L (6.3-8.2) g/dL Albumin 3.1 L (3.5-5.1) g/dL Diabetes panel 04/06/25 Range/Units 04:23 Sodium 136 L (137-145) mmol/L Potassium 2.9 L (3.4-5.0) mmol/L Chloride 109 H (98-107) mmol/L Carbon Dioxide 18 L (22-30) mmol/L BUN 45 H (7-17) mg/dL Creatinine 7.95 H (0.7-1.0) mg/dL Glucose 73 (65-110) mg/dL Calcium 9.7 (8.4-10.2) mg/dL AST 20 (14-36) U/L ALT 9 (6-35) U/L Alkaline Phosphatase 190 H (38-126) U/L Total Protein 5.9 L (6.3-8.2) g/dL Albumin 3.1 L (3.5-5.1) g/dL Calcium panel 04/06/25 Range/Units 04:23 Calcium 9.7 (8.4-10.2) mg/dL Phosphorus 4.7 H (2.5-4.5) mg/dL Albumin 3.1 L (3.5-5.1) g/dL Pituitary panel 04/06/25 Range/Units 04:23 Sodium 136 L (137-145) mmol/L Potassium 2.9 L (3.4-5.0) mmol/L Chloride 109 H (98-107) mmol/L Carbon Dioxide 18 L (22-30) mmol/L BUN 45 H (7-17) mg/dL Creatinine 7.95 H (0.7-1.0) mg/dL Glucose 73 (65-110) mg/dL Calcium 9.7 (8.4-10.2) mg/dL Adrenal panel 04/06/25 Range/Units 04:23 Sodium 136 L (137-145) mmol/L Potassium 2.9 L (3.4-5.0) mmol/L Chloride 109 H (98-107) mmol/L Carbon Dioxide 18 L (22-30) mmol/L BUN 45 H (7-17) mg/dL Creatinine 7.95 H (0.7-1.0) mg/dL Glucose 73 (65-110) mg/dL Calcium 9.7 (8.4-10.2) mg/dL Total Bilirubin 0.4 (0.2-1.3) mg/dL AST 20 (14-36) U/L ALT 9 (6-35) U/L Alkaline Phosphatase 190 H (38-126) U/L Total Protein 5.9 L (6.3-8.2) g/dL Albumin 3.1 L (3.5-5.1) g/dL All other labs normal. Imaging Additional studies: ITS Impressions Head CT 04/03/25 13:41 IMPRESSION: 1. No fracture or acute intracranial process. 2. Moderate-sized region of encephalomalacia in the right parieto-occipital region consistent with sequela of old infarct. 3. Moderate scattered nonspecific white matter hypoattenuation consistent with chronic small vessel ischemic disease. 4. Interval development of a salt and pepper appearance to the skull typical of hyperparathyroidism or renal osteodystrophy. Chest X-Ray 04/03/25 13:54 IMPRESSION: No acute process. Renal Ultrasound 04/03/25 20:52 IMPRESSION: No hydronephrosis or renal calculi. Findings suggesting medical renal disease. Brain MRI 04/04/25 11:59 IMPRESSION: 1. Small acute infarcts at the right thalamus and in the right parieto-occipital region along the margins of a small region of encephalomalacia consistent with a prior, now chronic infarct. 2. Couple additional small old lacunar infarcts in the left frontal lobe white matter. 3. Moderate diffuse periventricular predominant nonspecific white matter T2 hyperintensity consistent with chronic small vessel ischemic disease. 4. Decreased T1 fat signal throughout the diploic space of the calvarium with corresponding solid and pepper appearance to the calvarium on prior CT most suggestive of sequela of hyperparathyroidism or renal osteodystrophy. ADDENDUM: 04/05/25 [id number] ADDENDUM: Note there is an additional small region of restricted diffusion consistent with acute infarct in the anterior left frontal lobe. Carotid Doppler Study 04/05/25 10:07 IMPRESSION: 1. No significant stenosis. 2. Antegrade flow demonstrated within both vertebral arteries. Brain MRA 04/05/25 13:04 IMPRESSION: 1. Moderate stenosis at the intracranial right vertebral artery and diminutive distal left vertebral artery and basilar artery, bladder to which could be developmental with majority vascular flow to the bilateral posterior cerebral arteries supplied via a significantly larger caliber patent bilateral posterior commuting arteries. 2. Small region of flow to reperfusion associated with acute infarcts in the left frontal lobe, right thalamus and right parieto-occipital region.
[2025-04-06] MEDS: CINACALCET 30 MG TABLET PO (16:38)
[2025-04-06 17:54] LABS: Anion Gap 10 mmol/L (4-12); Blood Urea Nitrogen 48 mg/dL (7-17); Calcium 9.8 mg/dL (8.4-10.2); Carbon Dioxide 20 mmol/L (22-30); Chloride 107 mmol/L (98-107); Estimated CRCL calculation 7 ml/min; Estimated Glomerular Filt Rate 5; Glucose 97 mg/dL (65-110); Potassium 3.7 mmol/L (3.4-5.0); Sodium 137 mmol/L (137-145)
[2025-04-06] MEDS: DOCUSATE SODIUM 100 MG CAPSULE PO (21:22)
[2025-04-07] VITALS (10 sets, daily range): BP systolic 121–152; BP diastolic 74–88; PULSE 67–86; RESP 16–20; TEMP 36.6–37; O2SAT 100
[2025-04-07 07:16] LABS: Hematocrit 27.2 % (37.0-47.0); Hemoglobin 8.2 g/dL (12.0-15.0); Immature Granulocyte Percent A 0.8 % (0-0.5); Lymphocytes Absolute Auto 0.91 K/mm3 (0.9-3.2); Mean Corpuscular HGB Conc 30.1 g/dl (32-36); Mean Corpuscular Hemoglobin 29.2 pg (26-34); Mean Corpuscular Volume 96.8 fl (80-100); Nucleated Red Blood Cells Absolute Auto 0.000 K/mm3 (0.0-0.012); Nucleated Red Blood Cells Perc 0.0 % (0.0-0.2); Platelet Count Result 188 k/mm3 (150-375); Red Blood Count 2.81 M/mm3 (4.2-5.4); White Blood Count 6.4 K/mm3 (4.5-10.0)
[2025-04-07 07:29] LABS: Alanine Aminotransferase 8 U/L (6-35); Albumin Level 2.8 g/dL (3.5-5.1); Alkaline Phosphatase 183 U/L (38-126); Anion Gap 7 mmol/L (4-12); Aspartate Amino Transferase 18 U/L (14-36); Bilirubin,Total 0.3 mg/dL (0.2-1.3); Blood Urea Nitrogen 47 mg/dL (7-17); Calcium 9.1 mg/dL (8.4-10.2); Carbon Dioxide 21 mmol/L (22-30); Chloride 110 mmol/L (98-107); Estimated CRCL calculation 7 ml/min; Estimated Glomerular Filt Rate 5; Glucose 82 mg/dL (65-110); Magnesium 2.4 mg/dL (1.6-2.3); Potassium 3.6 mmol/L (3.4-5.0); Sodium 138 mmol/L (137-145); Total Protein 5.6 g/dL (6.3-8.2)
[2025-04-07] MEDS: SODIUM BICARBONATE TAB 650 MG TABLET 1300 MG PO ×2 (08:24→18:02)
[2025-04-07] MEDS: DOCUSATE SODIUM 100 MG CAPSULE PO ×2 (08:25→20:50)
[2025-04-07] MEDS: PANTOPRAZOLE SOD SESQUIHYDRATE 20 MG TAB PO (08:25)
[2025-04-07] MEDS: CLOPIDOGREL BISULFATE 75 MG TABLET PO (08:25)
[2025-04-07] MEDS: ASPIRIN 81 MG ENTERIC TABLET PO (08:25)
[2025-04-07] MEDS: ATORVASTATIN 40 MG TABLET PO (08:25)
[2025-04-07] MEDS: VENLAFAXINE HCL XR 75 MG CAP.ER.24H 150 MG PO (08:25)
--- NOTE | 2025-04-07 08:47 | P.PNNP_ITS ---
Progress Note: A&P Assessment and Plan (1) Stage 5 chronic kidney disease: Code(s): N18.5 - Chronic kidney disease, stage 5 Status: Acute Assessment and Plan: * suspect progression of disease rather than an acute insult * last creatinine was 5.0mg/dl (with a GFR of 9cc/min) in June 2024 * was scheduled for AV access placement in anticipation of [employer]/hemodialysis but this never occurred due to insurance issues * she also did not follow-up with Dr. Colmenares after her June 2024 appointment... 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 several years ago * testing noted on this admission: * renal ultrasound c/w medical renal disease * urine eosinophils negative * nephrotic range proteinuria * urine electrolytes non-prerenal * nausea is better * tunneled dialysis catheter tomorrow * hepatitis studies show immunity to hepatitis-B So far. Hepatitis-B core antibody is pending. (2) Fall: Qualifiers: Encounter type: initial encounter Qualified Code(s): W19.XXXA - Unspecified fall, initial encounter Code(s): W19.XXXA - Unspecified fall, initial encounter Status: Acute Assessment and Plan: * frequent falls x 1 week prior to admission * CT of head noted: * no fracture or acute intracranial process * moderate-sized region of encephalomalacia in the right parieto-occipital region consistent with sequela of old infarct * moderate scattered nonspecific white matter hypoattenuation consistent with chronic small vessel ischemic disease * interval development of a salt and pepper appearance to the skull typical of hyperparathyroidism or renal osteodystrophy * MRI of brain noted. * Neurology consultation underway. * fall precautions * PT/OT evaluation * Treating with atorvastatin (3) Hypertension: Qualifiers: Hypertension type: secondary to other renal disorders Qualified Code( s): I15.1 - Hypertension secondary to other renal disorders; N28.89 - Other specified disorders of kidney and ureter Code(s): I10 - Essential (primary) hypertension Status: Chronic Assessment and Plan: * poor control on admission * Systolic running in the 130s to 150s * Currently on carvedilol and p.r.n. hydralazine. * we can start lisinopril Tuesday since she is going to get dialysis starting tomorrow (4) Metabolic acidosis: Code(s): E87.20 - Acidosis, unspecified Status: Acute Assessment and Plan: * secondary to advanced CKD * CO2 is coming up. * on oral sodium bicarbonate 1300mg twice a day (5) Anemia: Qualifiers: Anemia type: due to chronic kidney disease Chronic kidney disease stage: stage 5 (GFR < 15), not on chronic dialysis Qualified Code(s): N18.5 - Chronic kidney disease, stage 5; D63.1 - Anemia in chronic kidney disease Code(s): D64.9 - Anemia, unspecified Status: Acute Assessment and Plan: * likely related advanced CKD * anemia studies with adequate iron stores Hemoglobin 8.2 today. * Will start Epogen tomorrow * (6) Hypercalcemia: Code(s): E83.52 - Hypercalcemia Status: Acute Assessment and Plan: * elevated on admission but better currently * extensive outpatient work-up reviewed: * 24 hour urine immunofixation with assymetrical beta and gamma regions * 24hr urine calcium + creatinine suggestive of primary or tertiary hyperparathyroidism * Vitamin A, THOM level, and PTHrp okay * Nuc Med Parathyroid scan negative * suspect a combination of primary mixed with secondary hyperparathyroidism * Calcium level is a little bit better. * with very high PTH will start cinacalcet today (7) Diet-controlled type 2 diabetes mellitus: Code(s): E11.9 - Type 2 diabetes mellitus without complications Status: Chronic Assessment and Plan: * follow accu-cheks * not currently on any diabetic medications (8) Renal osteodystrophy: Code(s): N25.0 - Renal osteodystrophy Status: Acute Assessment and Plan: PTH is very high. Vitamin-D is low. Calcium is generous. This may be tertiary hyperparathyroidism Will treat with vitamin-D and also with cinacalcet. Will see if we can get the PTH under better control with medicine alone Subjective Date/time seen: 04/07/25 08:47 Interval history: patient feels okay. Slept well last night Exam Narrative: WDWN in NAD skin no rash or subcu nodule head ncat lungs clear bilaterally cor reg no rub or gallop abd BS+ nontender and soft ext no edema or cyanosis Objective Data Vital Signs Vital Signs: Vital Signs - 24 hr 04/06/25 09:06 04/06/25 12:00 04/06/25 16:00 Temperature 98.2 F Pulse Rate 80 80 80 Respiratory Rate 16 Blood Pressure 133/62 Pulse Oximetry 100 Oxygen Delivery Fraction of Inspired Oxygen 04/06/25 16:00 04/06/25 20:00 04/06/25 20:00 Temperature Pulse Rate 81 92 Respiratory Rate Blood Pressure Pulse Oximetry Oxygen Delivery Room Air Fraction of Inspired Oxygen 04/06/25 20:12 04/06/25 21:22 04/06/25 22:17 Temperature 98.3 F Pulse Rate 79 79 88 Respiratory Rate 20 20 Blood Pressure 142/73 H Pulse Oximetry 97 100 Oxygen Delivery Room Air Fraction of Inspired Oxygen 21 04/07/25 00:00 04/07/25 04:00 04/07/25 06:00 Temperature 98.0 F Pulse Rate 82 78 79 Respiratory Rate 20 Blood Pressure 152/74 H Pulse Oximetry 100 Oxygen Delivery Fraction of Inspired Oxygen 04/07/25 08:24 04/07/25 08:36 Temperature Pulse Rate 74 Respiratory Rate Blood Pressure Pulse Oximetry Oxygen Delivery Room Air Fraction of Inspired Oxygen Intake/Output Intake/Output: Intake & Output 04/04/25 04/05/25 04/06/25 04/07/25 23:59 23:59 23:59 23:59 Intake Total 1440 1160 1020 400 Output Total 1200 Balance 1440 -40 1020 400 Meds/Results Medications: Active Medications Generic Name Dose Route Start Last Admin Trade Name Freq PRN Reason Stop Dose Admin Acetaminophen 650 mg 04/03/25 16:59 04/06/25 09:07 Acetaminophen 325 Mg Tablet PO 650 mg Q4H PRN Administration Mild Pain (1-3) or Fever Hydrocodone Bitart/Acetaminophen 1 tab 04/03/25 16:59 Hydrocodone/Acetaminophen (*Crx) 5-325 Mg Tablet PO Q4H PRN Pain Rated 4-6 Aspirin 81 mg 04/05/25 09:00 04/07/25 08:25 Aspirin 81 Mg Enteric Tablet PO 81 mg QAM RAVI Administration Atorvastatin Calcium 40 mg 04/05/25 09:00 04/07/25 08:25 Atorvastatin 40 Mg Tablet PO 40 mg DAILY RAVI Administration Carvedilol 12.5 mg 04/03/25 21:00 04/07/25 08:24 Carvedilol 12.5 Mg Tablet PO 12.5 mg Q12HR RAVI Administration Cinacalcet 30 mg 04/06/25 17:00 04/06/25 16:38 Cinacalcet 30 Mg Tablet PO 30 mg Q24H RAVI Administration Clopidogrel Bisulfate 75 mg 04/05/25 09:00 04/07/25 08:25 Clopidogrel Bisulfate 75 Mg Tablet PO 75 mg QAM RAVI Administration Docusate Sodium 100 mg 04/06/25 21:00 04/07/25 08:25 Docusate Sodium 100 Mg Capsule PO 100 mg Q12HR RAVI Administration Ergocalciferol 1,250 mcg 04/05/25 09:40 04/05/25 10:18 Ergocalciferol (Vitamin D2) 1,250 Mcg (50,000 Units) Capsule PO 1,250 mcg Fr@0900 [facility] Administration Heparin Sodium (Porcine) 5,000 units 04/04/25 22:00 04/05/25 08:49 Heparin Sodium 5,000 Units/Ml Vial SUB-Q 5,000 units Q8HR RAVI Administration Hydralazine HCl 10 mg 04/03/25 17:04 04/03/25 20:27 Hydralazine Hcl 20 Mg/Ml Vial IV PUSH 10 mg Q8H PRN Administration Blood Pressure - High Ondansetron HCl 4 mg 04/03/25 16:59 04/06/25 09:16 Ondansetron Inj 4 Mg/2 Ml Vial IV PUSH 4 mg Q4H PRN Administration Nausea Pantoprazole Sodium 20 mg 04/06/25 10:35 04/07/25 08:25 Pantoprazole Sod Sesquihydrate 20 Mg Tab PO 20 mg QAM RAVI Administration Polyethylene Glycol 17 gm 04/06/25 09:25 04/07/25 08:25 Polyethylene Glycol 3350 17 Gm Powd.Pack PO 17 gm QAM RAVI Administration Sodium Bicarbonate 1,300 mg 04/03/25 18:50 04/07/25 08:24 Sodium Bicarbonate Tab 650 Mg Tablet PO 1,300 mg BIDPC RAVI Administration Trazodone HCl 50 mg 04/04/25 01:38 04/06/25 21:29 Trazodone Hcl 50 Mg Tablet PO 50 mg HS PRN Administration Insomnia Venlafaxine HCl 150 mg 04/04/25 09:00 04/07/25 08:25 Venlafaxine Hcl Xr 75 Mg Cap.Er.24h PO 150 mg DAILY RAVI Administration Radiology Results: ITS Impressions Head CT 04/03/25 13:41 IMPRESSION: 1. No fracture or acute intracranial process. 2. Moderate-sized region of encephalomalacia in the right parieto-occipital region consistent with sequela of old infarct. 3. Moderate scattered nonspecific white matter hypoattenuation consistent with chronic small vessel ischemic disease. 4. Interval development of a salt and pepper appearance to the skull typical of hyperparathyroidism or renal osteodystrophy. Chest X-Ray 04/03/25 13:54 IMPRESSION: No acute process. Renal Ultrasound 04/03/25 20:52 IMPRESSION: No hydronephrosis or renal calculi. Findings suggesting medical renal disease. Brain MRI 04/04/25 11:59 IMPRESSION: 1. Small acute infarcts at the right thalamus and in the right parieto-occipital region along the margins of a small region of encephalomalacia consistent with a prior, now chronic infarct. 2. Couple additional small old lacunar infarcts in the left frontal lobe white matter. 3. Moderate diffuse periventricular predominant nonspecific white matter T2 hyperintensity consistent with chronic small vessel ischemic disease. 4. Decreased T1 fat signal throughout the diploic space of the calvarium with corresponding solid and pepper appearance to the calvarium on prior CT most suggestive of sequela of hyperparathyroidism or renal osteodystrophy. ADDENDUM: 04/05/25 1324 ADDENDUM: Note there is an additional small region of restricted diffusion consistent with acute infarct in the anterior left frontal lobe. Carotid Doppler Study 04/05/25 10:07 IMPRESSION: 1. No significant stenosis. 2. Antegrade flow demonstrated within both vertebral arteries. Brain MRA 04/05/25 13:04 IMPRESSION: 1. Moderate stenosis at the intracranial right vertebral artery and diminutive distal left vertebral artery and basilar artery, bladder to which could be developmental with majority vascular flow to the bilateral posterior cerebral arteries supplied via a significantly larger caliber patent bilateral posterior commuting arteries. 2. Small region of flow to reperfusion associated with acute infarcts in the left frontal lobe, right thalamus and right parieto-occipital region. Labs Labs: Laboratory Results - last 24 hr 04/06/25 04/07/25 17:29 07:06 WBC 6.4 RBC 2.81 L Hgb 8.2 L Hct 27.2 L MCV 96.8 MCH 29.2 MCHC 30.1 L RDW 14.4 Plt Count 188 MPV 11.2 H Immature Gran % (Auto) 0.8 H Neut % (Auto) 64.3 Lymph % (Auto) 14.3 L [place] % (Auto) 11.6 H Eos % (Auto) 8.2 H Baso % (Auto) 0.8 Lymph # (Auto) 0.91 [place] # (Auto) 0.7 H Eos # (Auto) 0.5 H Baso # (Auto) 0.1 Abs Immat Gran (auto) 0.05 H Absolute Neuts (auto) 4.1 Absolute Nucleated RBC 0.000 Nucleated RBC % 0.0 Sodium 137 138 Potassium 3.7 3.6 Chloride 107 110 H Carbon Dioxide 20 L 21 L Anion Gap 10 7 BUN 48 H 47 H Creatinine 7.90 H 8.23 H Estim Creat Clear Calc 7 7 Estimated GFR 5 L 5 L Glucose 97 82 Calcium 9.8 9.1 Phosphorus 3.9 Magnesium 2.4 H Total Bilirubin 0.3 AST 18 ALT 8 Alkaline Phosphatase 183 H Total Protein 5.6 L Albumin 2.8 L
--- NOTE | 2025-04-07 11:36 | P.PNIM_ITS ---
Progress Note: A&P Assessment and Plan (1) Chronic kidney disease, stage 5: Code(s): N18.5 - Chronic kidney disease, stage 5 Status: Acute Assessment and Plan: - previous history of SAEID/rhabdomyolysis resulting in need for temporary dialysis. Per last Nephrology note in June of 2024 - creatinine 8.7, BUN 39, GFR 5. Previously 5.0, BUN 35, GFR 9 in June of 2024. Cr 8.2, us renal normal patient noted she was once on dialysis about a year ago Gen surgery consulted for dialysis catheter placement Nephrology following (2) Fall: Qualifiers: Encounter type: initial encounter Qualified Code(s): W19.XXXA - Unspecified fall, initial encounter Code(s): W19.XXXA - Unspecified fall, initial encounter Status: Acute Assessment and Plan: - reported frequent falls for the past week - new CVA seen on CT, not previously appreciated on brain MRI that was completed in April of 2023. Will check MR brain with/without to better assess. - PT/OT evaluation for rehab services - will hold off on care coordination consultation, await PT/OT recommendations - fall precaution - UA and CXR negative for findings for infection (3) Anemia: Qualifiers: Anemia type: due to chronic kidney disease Chronic kidney disease stage: stage 5 (GFR < 15), not on chronic dialysis Qualified Code(s): N18.5 - Chronic kidney disease, stage 5; D63.1 - Anemia in chronic kidney disease Code(s): D64.9 - Anemia, unspecified Status: Acute Assessment and Plan: - Hgb 8.2, previously 9.2 in June 2024 - Hx of CKD stage 4, anemia in setting of chronic disease - transfuse if <7 - trend CBC (4) Hypertension: Qualifiers: Hypertension type: secondary to other renal disorders Qualified Code(s): I15.1 - Hypertension secondary to other renal disorders; N28.89 - Other specified disorders of kidney and ureter Code(s): I10 - Essential (primary) hypertension Status: Chronic Assessment and Plan: - chronic, previously not well controlled. Arrived . Currently a 187/. - continue home medications: Carvedilol - monitor (5) Diet-controlled type 2 diabetes mellitus: Code(s): E11.9 - Type 2 diabetes mellitus without complications Status: Chronic Assessment and Plan: - not currently on any diabetic medications, diet controlled - initial glucose 128 - A1c 6.0 on 05/02/2024, update Plan Acute stroke patient presented after a fall MRI showed acute right thalamus infarct ECHo showed EF 55-60% with grade I diastolic dysfunction MRA no significant stenosis A1c 4.6, LDL 172 PT/OT/ST Neurology following Aspirin, Plavix and Lipitor Vit D deficiency stared on replacement 50k units weeks x 8 weeks Monitor Diet: Renal DVT Prophylaxis: Sq heparin Code Status: Full code Subjective Date/time seen: 04/07/25 11:37 Interval history: Comfortable at bedside for dialysis catheter placement and dialysis tomorrow Review of Systems Review of Systems: All systems reviewed & are unremarkable except as noted in HPI and below Exam Const: General: comfortable and no acute distress Other: , female, nontoxic appearance HENMT: Face/Nose/Sinus: Normal nares present Mouth: Yes moist mucous membranes Eyes: General: appearance normal, both eyes and all related structures Sclera: sclerae normal Pupils: Equal, round and reactive pupils present EOM: EOMs intact bilaterally Resp: Effort & Inspection: normal respiratory effort Auscultation: clear to auscultation bilaterally Cardio: Rate: regular rate Rhythm: regular rhythm Other: S1-S2 present without murmur, rub, ectopy GI: Other: Abdomen soft, nondistended, nontender. Normoactive bowel sounds in all quadrants. Skin: General skin exam: normal color and no rashes or lesions noted Wounds: no wounds Neuro: Cranial nerves: Yes Equal, round and reactive pupils present Speech: normal speech Motor exam (neuro): 5/5 motor strength present throughout Sensory Exam: normal sensation Other: A&O x4, no facial droop or dysarthria appreciated. No gaze palsy. Extrem: General: normal to inspection Psych: Mental Status: mental status grossly normal Affect: normal affect Other: Good insight and judgment, pleasant Objective Data Vital Signs Vital Signs: Vital Signs - 24 hr 04/06/25 12:00 04/06/25 16:00 04/06/25 16:00 Temperature 98.2 F Pulse Rate 80 80 81 Respiratory Rate 16 Blood Pressure 133/62 Pulse Oximetry 100 Oxygen Delivery Fraction of Inspired Oxygen 04/06/25 20:00 04/06/25 20:00 04/06/25 20:12 Temperature Pulse Rate 92 79 Respiratory Rate 20 Blood Pressure Pulse Oximetry 97 Oxygen Delivery Room Air Room Air Fraction of Inspired Oxygen 21 04/06/25 21:22 04/06/25 22:17 04/07/25 00:00 Temperature 98.3 F Pulse Rate 79 88 82 Respiratory Rate 20 Blood Pressure 142/73 H Pulse Oximetry 100 Oxygen Delivery Fraction of Inspired Oxygen 04/07/25 04:00 04/07/25 06:00 04/07/25 08:24 Temperature 98.0 F Pulse Rate 78 79 74 Respiratory Rate 20 Blood Pressure 152/74 H Pulse Oximetry 100 Oxygen Delivery Fraction of Inspired Oxygen 04/07/25 08:36 Temperature Pulse Rate Respiratory Rate Blood Pressure Pulse Oximetry Oxygen Delivery Room Air Fraction of Inspired Oxygen Intake/Output Intake/Output: Intake & Output 04/04/25 04/05/25 04/06/25 04/07/25 23:59 23:59 23:59 23:59 Intake Total 1440 1160 1020 400 Output Total 1200 Balance 1440 -40 1020 400 Meds/Results Medications: Active Medications Generic Name Dose Route Start Last Admin Trade Name Freq PRN Reason Stop Dose Admin Acetaminophen 650 mg 04/03/25 16:59 04/06/25 09:07 Acetaminophen 325 Mg Tablet PO 650 mg Q4H PRN Administration Mild Pain (1-3) or Fever Hydrocodone Bitart/Acetaminophen 1 tab 04/03/25 16:59 Hydrocodone/Acetaminophen (*Crx) 5-325 Mg Tablet PO Q4H PRN Pain Rated 4-6 Aspirin 81 mg 04/05/25 09:00 04/07/25 08:25 Aspirin 81 Mg Enteric Tablet PO 81 mg QAM RAVI Administration Atorvastatin Calcium 40 mg 04/05/25 09:00 04/07/25 08:25 Atorvastatin 40 Mg Tablet PO 40 mg DAILY RAVI Administration Carvedilol 12.5 mg 04/03/25 21:00 04/07/25 08:24 Carvedilol 12.5 Mg Tablet PO 12.5 mg Q12HR RAVI Administration Cinacalcet 30 mg 04/06/25 17:00 04/06/25 16:38 Cinacalcet 30 Mg Tablet PO 30 mg Q24H RAVI Administration Clopidogrel Bisulfate 75 mg 04/05/25 09:00 04/07/25 08:25 Clopidogrel Bisulfate 75 Mg Tablet PO 75 mg QAM RAVI Administration Docusate Sodium 100 mg 04/06/25 21:00 04/07/25 08:25 Docusate Sodium 100 Mg Capsule PO 100 mg Q12HR RAVI Administration Epoetin Isac-epbx 10,000 units 04/08/25 09:00 Epoetin Isac-Epbx 10,000 Units/Ml Vial IV PUSH MOWEFR@09 RAVI Ergocalciferol 1,250 mcg 04/05/25 09:40 04/05/25 10:18 Ergocalciferol (Vitamin D2) 1,250 Mcg (50,000 Units) Capsule PO 1,250 mcg Fr@0900 RAVI Administration Heparin Sodium (Porcine) 5,000 units 04/04/25 22:00 04/05/25 08:49 Heparin Sodium 5,000 Units/Ml Vial SUB-Q 5,000 units Q8HR RAVI Administration Hydralazine HCl 10 mg 04/03/25 17:04 04/03/25 20:27 Hydralazine Hcl 20 Mg/Ml Vial IV PUSH 10 mg Q8H PRN Administration Blood Pressure - High Lisinopril 20 mg 04/09/25 09:00 Lisinopril 20 Mg Tablet PO QAM RAVI Ondansetron HCl 4 mg 04/03/25 16:59 04/06/25 09:16 Ondansetron Inj 4 Mg/2 Ml Vial IV PUSH 4 mg Q4H PRN Administration Nausea Pantoprazole Sodium 20 mg 04/06/25 10:35 04/07/25 08:25 Pantoprazole Sod Sesquihydrate 20 Mg Tab PO 20 mg QAM [facility] Administration Polyethylene Glycol 17 gm 04/06/25 09:25 04/07/25 08:25 Polyethylene Glycol 3350 17 Gm Powd.Pack PO 17 gm QAM [facility] Administration Sodium Bicarbonate 1,300 mg 04/03/25 18:50 04/07/25 08:24 Sodium Bicarbonate Tab 650 Mg Tablet PO 1,300 mg BIDPC RAVI Administration Trazodone HCl 50 mg 04/04/25 01:38 04/06/25 21:29 Trazodone Hcl 50 Mg Tablet PO 50 mg HS PRN Administration Insomnia Venlafaxine HCl 150 mg 04/04/25 09:00 04/07/25 08:25 Venlafaxine Hcl Xr 75 Mg Cap.Er.24h PO 150 mg DAILY RAVI Administration Radiology Results: ITS Impressions Head CT 04/03/25 13:41 IMPRESSION: 1. No fracture or acute intracranial process. 2. Moderate-sized region of encephalomalacia in the right parieto-occipital region consistent with sequela of old infarct. 3. Moderate scattered nonspecific white matter hypoattenuation consistent with chronic small vessel ischemic disease. 4. Interval development of a salt and pepper appearance to the skull typical of hyperparathyroidism or renal osteodystrophy. Chest X-Ray 04/03/25 13:54 IMPRESSION: No acute process. Renal Ultrasound 04/03/25 20:52 IMPRESSION: No hydronephrosis or renal calculi. Findings suggesting medical renal disease. Brain MRI 04/04/25 11:59 IMPRESSION: 1. Small acute infarcts at the right thalamus and in the right parieto-occipital region along the margins of a small region of encephalomalacia consistent with a prior, now chronic infarct. 2. Couple additional small old lacunar infarcts in the left frontal lobe white matter. 3. Moderate diffuse periventricular predominant nonspecific white matter T2 hyperintensity consistent with chronic small vessel ischemic disease. 4. Decreased T1 fat signal throughout the diploic space of the calvarium with corresponding solid and pepper appearance to the calvarium on prior CT most suggestive of sequela of hyperparathyroidism or renal osteodystrophy. ADDENDUM: 04/05/25 1324 ADDENDUM: Note there is an additional small region of restricted diffusion consistent with acute infarct in the anterior left frontal lobe. Carotid Doppler Study 04/05/25 10:07 IMPRESSION: 1. No significant stenosis. 2. Antegrade flow demonstrated within both vertebral arteries. Brain MRA 04/05/25 13:04 IMPRESSION: 1. Moderate stenosis at the intracranial right vertebral artery and diminutive distal left vertebral artery and basilar artery, bladder to which could be developmental with majority vascular flow to the bilateral posterior cerebral arteries supplied via a significantly larger caliber patent bilateral posterior commuting arteries. 2. Small region of flow to reperfusion associated with acute infarcts in the left frontal lobe, right thalamus and right parieto-occipital region. Labs Labs: Laboratory Results - last 24 hr 04/05/25 04/06/25 04/07/25 04:48 17:29 07:06 WBC 6.4 RBC 2.81 L Hgb 8.2 L Hct 27.2 L MCV 96.8 MCH 29.2 MCHC 30.1 L RDW 14.4 Plt Count 188 MPV 11.2 H Immature Gran % (Auto) 0.8 H Neut % (Auto) 64.3 Lymph % (Auto) 14.3 L [place] % (Auto) 11.6 H Eos % (Auto) 8.2 H Baso % (Auto) 0.8 Lymph # (Auto) 0.91 [place] # (Auto) 0.7 H Eos # (Auto) 0.5 H Baso # (Auto) 0.1 Abs Immat Gran (auto) 0.05 H Absolute Neuts (auto) 4.1 Absolute Nucleated RBC 0.000 Nucleated RBC % 0.0 Sodium 137 138 Potassium 3.7 3.6 Chloride 107 110 H Carbon Dioxide 20 L 21 L Anion Gap 10 7 BUN 48 H 47 H Creatinine 7.90 H 8.23 H Estim Creat Clear Calc 7 7 Estimated GFR 5 L 5 L Glucose 97 82 Calcium 9.8 9.1 Phosphorus 3.9 Magnesium 2.4 H Total Bilirubin 0.3 AST 18 ALT 8 Alkaline Phosphatase 183 H Total Protein 5.6 L Albumin 2.8 L Hep B Core Total Ab Non-reactive Quality VTE Prophylaxis VTE prophylaxis: mechanical ordered
[2025-04-07] MEDS: CINACALCET 30 MG TABLET PO (18:02)
[2025-04-08] VITALS (27 sets, daily range): BP systolic 137–201; BP diastolic 65–100; PULSE 69–98; RESP 12–20; TEMP 36.2–37; O2SAT 96–100
[2025-04-08 06:28] LABS: Hematocrit 27.3 % (37.0-47.0); Hemoglobin 8.2 g/dL (12.0-15.0); Immature Granulocyte Percent A 0.3 % (0-0.5); Lymphocytes Absolute Auto 1.48 K/mm3 (0.9-3.2); Mean Corpuscular HGB Conc 30.0 g/dl (32-36); Mean Corpuscular Hemoglobin 28.7 pg (26-34); Mean Corpuscular Volume 95.5 fl (80-100); Nucleated Red Blood Cells Absolute Auto 0.000 K/mm3 (0.0-0.012); Nucleated Red Blood Cells Perc 0.0 % (0.0-0.2); Platelet Count Result 205 k/mm3 (150-375); Red Blood Count 2.86 M/mm3 (4.2-5.4); White Blood Count 7.3 K/mm3 (4.5-10.0)
[2025-04-08 06:46] LABS: Alanine Aminotransferase 9 U/L (6-35); Albumin Level 2.9 g/dL (3.5-5.1); Alkaline Phosphatase 195 U/L (38-126); Anion Gap 7 mmol/L (4-12); Aspartate Amino Transferase 18 U/L (14-36); Bilirubin,Total 0.3 mg/dL (0.2-1.3); Blood Urea Nitrogen 53 mg/dL (7-17); Calcium 8.9 mg/dL (8.4-10.2); Carbon Dioxide 23 mmol/L (22-30); Chloride 108 mmol/L (98-107); Estimated CRCL calculation 7 ml/min; Estimated Glomerular Filt Rate 5; Glucose 81 mg/dL (65-110); Magnesium 2.3 mg/dL (1.6-2.3); Potassium 3.4 mmol/L (3.4-5.0); Sodium 138 mmol/L (137-145); Total Protein 5.7 g/dL (6.3-8.2)
--- NOTE | 2025-04-08 12:48 | PCOTNOTE ---
The patient treatment was not able to be completed. Patient out of the room. Will plan to continue treatment per plan of care.
--- NOTE | 2025-04-08 13:08 | PC.NURSE ---
Patient off of unit to surgery
--- NOTE | 2025-04-08 13:58 | PCOTNOTE ---
Patient out of the room at this time. Patient down having a port placed.
--- NOTE | 2025-04-08 14:08 | WPDHPUPDATE1 ---
History and Physical Update Update Date/Time: 04/08/25 14:08 History and Physical has been reviewed, including an updated exam of the patient. There are NO changes in the patient's condition. Risks, benefits, and alternatives have been discussed and questions answered. Patient agrees to proceed with procedure.
--- NOTE | 2025-04-08 14:23 | WPDANESEPPF ---
Anes - Initial Pre Proc Eval Procedure: Operation Date: 04/08/25 14:00 Proposed Procedures p Placement Tunneled Dialysis Catheter - John Silverman DO Date/Time: 04/08/25 14:23 Surgeon: Hilario Estevez MD Pre Op Diagnosis: uncontrolled htn,chronic kidney disease Patient Data Age: 64 Gender: F Height: 1.65 m Weight: 83.1 kg Last Vital Signs Temp 36.7 C 04/08/25 12:55 Pulse 80 04/08/25 12:55 Resp 16 04/08/25 12:55 BP 155/78 H 04/08/25 12:55 Pulse Ox 100 04/08/25 12:55 O2 Del Method Room Air 04/08/25 12:55 FiO2 21 04/06/25 20:12 Allergies Allergy/AdvReac Type Severity Reaction Status Date / Time lactose AdvReac Mild Gastrointestinal Verified 04/08/25 13:28 Upset Home Medications ?Medication ?Instructions ?Recorded ?Confirmed ?Type sodium bicarbonate 650 mg tablet 1,300 mg (2 x 650 mg) PO BIDPC #60 05/08/24 04/03/25 Rx tabs carvedilol 12.5 mg tablet 12.5 mg PO Q12H #180 tabs 08/01/24 04/03/25 Rx venlafaxine 150 mg See Rx Instructions .Route 12/04/24 04/03/25 Rx capsule,extended release 24 hr .COMPLEX #90 caps Laboratory Tests 04/08/25 04/08/25 04/08/25 05:22 05:23 13:23 WBC 7.3 K/mm3 (4.5-10.0) RBC 2.86 L M/mm3 (4.2-5.4) Hgb 8.2 L g/dL (12.0-15.0) Hct 27.3 L % (37.0-47.0) MCV 95.5 fl (80-100) MCH 28.7 pg (26-34) MCHC 30.0 L g/dl (32-36) RDW 14.5 % (11.5-14.5) Plt Count 205 k/mm3 (150-375) MPV 11.9 H fl (7.4-10.4) Immature Gran % (Auto) 0.3 % (0-0.5) Neut % (Auto) 58.2 % (45.5-73.1) Lymph % (Auto) 20.2 % (18.3-44.2) [place] % (Auto) 12.6 H % (2.6-8.5) Eos % (Auto) 7.9 H % (0-4.4) Baso % (Auto) 0.8 % (0.2-1.2) Lymph # (Auto) 1.48 K/mm3 (0.9-3.2) [place] # (Auto) 0.9 H K/mm3 (0.1-0.6) Eos # (Auto) 0.6 H K/mm3 (0-0.3) Baso # (Auto) 0.1 K/mm3 (0.0-0.1) Abs Immat Gran (auto) 0.02 K/mm3 (0.00-0.031) Absolute Neuts (auto) 4.3 K/mm3 (1.3-6.7) Absolute Nucleated RBC 0.000 K/mm3 (0.0-0.012) Nucleated RBC % 0.0 % (0.0-0.2) Sodium 138 mmol/L (137-145) Potassium 3.4 mmol/L (3.4-5.0) Chloride 108 H mmol/L (98-107) Carbon Dioxide 23 mmol/L (22-30) Anion Gap 7 mmol/L (4-12) BUN 53 H mg/dL (7-17) Creatinine 8.10 H mg/dL (0.7-1.0) Estim Creat Clear Calc 7 ml/min Estimated GFR 5 L (59 - ) Glucose 81 mg/dL (65-110) POC Capillary Glucose 70 mg/dl (65-105) Calcium 8.9 mg/dL (8.4-10.2) Magnesium 2.3 mg/dL (1.6-2.3) Total Bilirubin 0.3 mg/dL (0.2-1.3) AST 18 U/L (14-36) ALT 9 U/L (6-35) Alkaline Phosphatase 195 H U/L (38-126) Total Protein 5.7 L g/dL (6.3-8.2) Albumin 2.9 L g/dL (3.5-5.1) Patient hx anesthesia problems: none Family hx anesthesia problems: none Results Review: All pre-operative results and documents have been reviewed as part of the pre-operative evaluation. [facility] Past Medical History Medical History Fall Acute right arterial ischemic stroke, MCA (middle cerebral artery) Chronic kidney disease, stage 5 Cancer of right breast (2004) Status post chemotherapy and mastectomy. Diabetic peripheral neuropathy Obesity (BMI 30-39.9) Essential hypertension End-stage renal disease on hemodialysis Chronic kidney disease due to hypertension and diabetes with final insult kidneys with severe rhabdomyolysis March 2023. Vitamin D deficiency Type 2 diabetes mellitus Anemia Normal colonoscopy (07/2011) Primary hyperparathyroidism (11/2020) Vaginal polyp Depression Anxiety Surgical History Surgical History History of right mastectomy History of hysteroscopy (2020) Family History Family History Mother Family history of lung cancer Hypertension Grandparent Cerebrovascular accident Diabetes mellitus Hypertension Son Family history of cardiovascular disease Heart disease Hypertension Father Unknown family medical history Social History Social History Social History: Surrogate decision maker: Adry Smith (sister). Code status: Full code. Smoking packs per day: 0.5 Smoking cigarettes per day: 10.0 Years smoked: 20 Smoking pack-years: 10.00 Smoking status: Former smoker Tobacco type: cigarettes Second hand tobacco smoke exposure: Yes Alcohol intake: never Alcohol use details: Very seldom Substance use: never Substance use type: does not use Do You Feel Safe in your Home?: Yes Lack of Transportation: No Lack of Food: Never True Current Housing: I Have Housing Concerned About Future Housing: No Difficulty Paying Gas/Electric Bills: No Difficulty Paying for Meds: No Currently Unemployed: No Education: High School Diploma/GED Difficulty w/ Childcare or Family Care: No Additional living arrangements comments: Lives in [place]. Additional occupation/education comments: Retired. Sexual Orientation (if Verbalized by the Patient): Straight or Heterosexual Spiritual care concerns: No Agree to blood products: Yes Anes - Eval Final PreProcedure Day of Procedure 04/08/25 14:23 Patient weight: obese Heart: regular rate and rhythm Lungs: clear to auscultation Airway: Mallampati scale class II Neurological: alert and oriented Last oral intake: >/= 8 hours ASA classification: IV Emergent: no Anesthetic plan: proceed Anesthesia type and monitoring: general GIVS and standard monitoring Results Review: All pre-operative results and documents have been reviewed as part of the pre-operative evaluation. Informed Consent: The patient's anesthetic plan and its attendant risks and benefits were discussed with the patient/family/POA. Questions were solicited and answers provided to the satisfaction of the patient/family/POA.
--- NOTE | 2025-04-08 14:34 | P.PNIM_ITS ---
Progress Note: A&P Assessment and Plan (1) Chronic kidney disease, stage 5: Code(s): N18.5 - Chronic kidney disease, stage 5 Status: Acute Assessment and Plan: - previous history of SAEID/rhabdomyolysis resulting in need for temporary dialysis. Per last Nephrology note in June of 2024 - creatinine 8.7, BUN 39, GFR 5. Previously 5.0, BUN 35, GFR 9 in June of 2024. Cr 8.1, us renal normal patient noted she was once on dialysis about a year ago Gen surgery consulted for dialysis catheter placement Nephrology following (2) Fall: Qualifiers: Encounter type: initial encounter Qualified Code(s): W19.XXXA - Unspecified fall, initial encounter Code(s): W19.XXXA - Unspecified fall, initial encounter Status: Acute Assessment and Plan: - reported frequent falls for the past week - new CVA seen on CT, not previously appreciated on brain MRI that was completed in April of 2023. Will check MR brain with/without to better assess. - PT/OT evaluation for rehab services - will hold off on care coordination consultation, await PT/OT recommendations - fall precaution - UA and CXR negative for findings for infection (3) Anemia: Qualifiers: Anemia type: due to chronic kidney disease Chronic kidney disease stage: stage 5 (GFR < 15), not on chronic dialysis Qualified Code(s): N18.5 - Chronic kidney disease, stage 5; D63.1 - Anemia in chronic kidney disease Code(s): D64.9 - Anemia, unspecified Status: Acute Assessment and Plan: - Hgb 8.2, previously 9.2 in June 2024 - Hx of CKD stage 4, anemia in setting of chronic disease - transfuse if <7 - trend CBC (4) Hypertension: Qualifiers: Hypertension type: secondary to other renal disorders Qualified Code(s): I15.1 - Hypertension secondary to other renal disorders; N28.89 - Other specified disorders of kidney and ureter Code(s): I10 - Essential (primary) hypertension Status: Chronic Assessment and Plan: - chronic, previously not well controlled. Arrived . Currently a 187/90. - continue home medications: Carvedilol - monitor (5) Diet-controlled type 2 diabetes mellitus: Code(s): E11.9 - Type 2 diabetes mellitus without complications Status: Chronic Assessment and Plan: - not currently on any diabetic medications, diet controlled - initial glucose 128 - A1c 6.0 on 05/02/2024, update Plan Acute stroke patient presented after a fall MRI showed acute right thalamus infarct ECHo showed EF 55-60% with grade I diastolic dysfunction MRA no significant stenosis A1c 4.6, LDL 172 PT/OT/ST Neurology following Aspirin, Plavix and Lipitor Vit D deficiency stared on replacement 50k units weeks x 8 weeks, then maintenance Monitor Diet: Renal DVT Prophylaxis: Sq heparin Code Status: Full code Subjective Date/time seen: 04/08/25 14:34 Interval history: Comfortable at bedside for dialysis catheter placement and dialysis tomday Review of Systems Review of Systems: All systems reviewed & are unremarkable except as noted in HPI and below Exam Const: General: comfortable and no acute distress Other: , female, nontoxic appearance HENMT: Face/Nose/Sinus: Normal nares present Mouth: Yes moist mucous membr anes Eyes: General: appearance normal, both eyes and all related structures Sclera: sclerae normal Pupils: Equal, round and reactive pupils present EOM: EOMs intact bilaterally Resp: Effort & Inspection: normal respiratory effort Auscultation: clear to auscultation bilaterally Cardio: Rate: regular rate Rhythm: regular rhythm Other: S1-S2 present without murmur, rub, ectopy GI: Other: Abdomen soft, nondistended, nontender. Normoactive bowel sounds in all quadrants. Skin: General skin exam: normal color and no rashes or lesions noted Wounds: no wounds Neuro: Cranial nerves: Yes Equal, round and reactive pupils present Speech: normal speech Motor exam (neuro): 5/5 motor strength present throughout Sensory Exam: normal sensation Other: A&O x4, no facial droop or dysarthria appreciated. No gaze palsy. Extrem: General: normal to inspection Psych: Mental Status: mental status grossly normal Affect: normal affect Other: Good insight and judgment, pleasant Objective Data Vital Signs Vital Signs: Vital Signs - 24 hr 04/07/25 16:00 04/07/25 20:00 04/07/25 20:00 Temperature Pulse Rate 67 77 Respiratory Rate Blood Pressure Pulse Oximetry Oxygen Delivery Room Air 04/07/25 22:09 04/08/25 00:00 04/08/25 04:00 Temperature 98.6 F Pulse Rate 81 84 78 Respiratory Rate 20 Blood Pressure 152/88 H Pulse Oximetry 100 Oxygen Delivery 04/08/25 06:00 04/08/25 08:00 04/08/25 08:00 Temperature 98.6 F Pulse Rate 76 72 Respiratory Rate 18 Blood Pressure 137/65 Pulse Oximetry 100 Oxygen Delivery Room Air 04/08/25 12:00 04/08/25 12:55 Temperature 98.1 F Pulse Rate 83 80 Respiratory Rate 16 Blood Pressure 155/78 H Pulse Oximetry 100 Oxygen Delivery Room Air Intake/Output Intake/Output: Intake & Output 04/05/25 04/06/25 04/07/25 04/08/25 23:59 23:59 23:59 23:59 Intake Total 1160 1020 1520 Output Total 1200 400 550 Balance -40 1020 1120 -550 Meds/Results Medications: Active Medications Generic Name Dose Route Start Last Admin Trade Name Freq PRN Reason Stop Dose Admin Acetaminophen 650 mg 04/03/25 16:59 04/06/25 09:07 Acetaminophen 325 Mg Tablet PO 650 mg Q4H PRN Administration Mild Pain (1-3) or Fever Hydrocodone Bitart/Acetaminophen 1 tab 04/03/25 16:59 Hydrocodone/Acetaminophen (*Crx) 5-325 Mg Tablet PO Q4H PRN Pain Rated 4-6 Aspirin 81 mg 04/05/25 09:00 04/08/25 11:21 Aspirin 81 Mg Enteric Tablet PO Not Given QAM [facility] Atorvastatin Calcium 40 mg 04/05/25 09:00 04/08/25 11:21 Atorvastatin 40 Mg Tablet PO Not Given DAILY [facility] Carvedilol 12.5 mg 04/03/25 21:00 04/08/25 11:21 Carvedilol 12.5 Mg Tablet PO Not Given Q12HR [facility] Cinacalcet 30 mg 04/06/25 17:00 04/07/25 18:02 Cinacalcet 30 Mg Tablet PO 30 mg Q24H [facility] Administration Clopidogrel Bisulfate 75 mg 04/05/25 09:00 04/08/25 11:22 Clopidogrel Bisulfate 75 Mg Tablet PO Not Given QAM [facility] Docusate Sodium 100 mg 04/06/25 21:00 04/08/25 11:22 Docusate Sodium 100 Mg Capsule PO Not Given Q12HR [facility] Epoetin Isac-epbx 10,000 units 04/08/25 09:00 Epoetin Isac-Epbx 10,000 Units/Ml Vial IV PUSH MOWEFR@09 [facility] Ergocalciferol 1,250 mcg 04/05/25 09:40 04/05/25 10:18 Ergocalciferol (Vitamin D2) 1,250 Mcg (50,000 Units) Capsule PO 1,250 mcg Fr@0900 [facility] Administration Fentanyl Citrate 25 mcg 04/08/25 14:24 Fentanyl Citrate Inj (*Crx) 100 Mcg/2 Ml Vial IV PUSH Q2M PRN Pain Heparin Sodium (Porcine) 5,000 units 04/04/25 22:00 04/05/25 08:49 Heparin Sodium 5,000 Units/Ml Vial SUB-Q 5,000 units Q8HR [facility] Administration Hydralazine HCl 10 mg 04/03/25 17:04 04/03/25 20:27 Hydralazine Hcl 20 Mg/Ml Vial IV PUSH 10 mg Q8H PRN Administration Blood Pressure - High Cefazolin Sodium 2 gm in 50 mls @ 100 mls/hr 04/08/25 14:12 Ancef 2 Gm/D5w 50 Ml IVPB 04/08/25 14:41 ONCE ONE Sodium Chloride 500 mls @ 30 mls/hr 04/08/25 14:25 Normal Saline Iv IV CONT .[id number] [facility] Sodium Chloride 500 mls @ 30 mls/hr 04/08/25 14:25 Normal Saline Iv IV CONT .[id number] [facility] Lisinopril 20 mg 04/09/25 09:00 Lisinopril 20 Mg Tablet PO QAM [facility] Ondansetron HCl 4 mg 04/03/25 16:59 04/06/25 09:16 Ondansetron Inj 4 Mg/2 Ml Vial IV PUSH 4 mg Q4H PRN Administration Nausea Ondansetron HCl 4 mg 04/08/25 14:24 Ondansetron Inj 4 Mg/2 Ml Vial IV PUSH ONCE PRN Nausea Pantoprazole Sodium 20 mg 04/06/25 10:35 04/08/25 11:22 Pantoprazole Sod Sesquihydrate 20 Mg Tab PO Not Given QAM [facility] Polyethylene Glycol 17 gm 04/06/25 09:25 04/08/25 11:22 Polyethylene Glycol 3350 17 Gm Powd.Pack PO Not Given QAM [facility] Sodium Bicarbonate 1,300 mg 04/03/25 18:50 04/08/25 11:22 Sodium Bicarbonate Tab 650 Mg Tablet PO Not Given BIDPC [facility] Trazodone HCl 50 mg 04/04/25 01:38 04/07/25 20:50 Trazodone Hcl 50 Mg Tablet PO 50 mg HS PRN Administration Insomnia Venlafaxine HCl 150 mg 04/04/25 09:00 04/08/25 11:22 Venlafaxine Hcl Xr 75 Mg Cap.Er.24h PO Not Given DAILY [facility] Radiology Results: ITS Impressions Head CT 04/03/25 13:41 IMPRESSION: 1. No fracture or acute intracranial process. 2. Moderate-sized region of encephalomalacia in the right parieto-occipital region consistent with sequela of old infarct. 3. Moderate scattered nonspecific white matter hypoattenuation consistent with chronic small vessel ischemic disease. 4. Interval development of a salt and pepper appearance to the skull typical of hyperparathyroidism or renal osteodystrophy. Chest X-Ray 04/03/25 13:54 IMPRESSION: No acute process. Renal Ultrasound 04/03/25 20:52 IMPRESSION: No hydronephrosis or renal calculi. Findings suggesting medical renal disease. Brain MRI 04/04/25 11:59 IMPRESSION: 1. Small acute infarcts at the right thalamus and in the right parieto-occipital region along the margins of a small region of encephalomalacia consistent with a prior, now chronic infarct. 2. Couple additional small old lacunar infarcts in the left frontal lobe white matter. 3. Moderate diffuse periventricular predominant nonspecific white matter T2 hyperintensity consistent with chronic small vessel ischemic disease. 4. Decreased T1 fat signal throughout the diploic space of the calvarium with corresponding solid and pepper appearance to the calvarium on prior CT most suggestive of sequela of hyperparathyroidism or renal osteodystrophy. ADDENDUM: 04/05/25 1324 ADDENDUM: Note there is an additional small region of restricted diffusion consistent with acute infarct in the anterior left frontal lobe. Carotid Doppler Study 04/05/25 10:07 IMPRESSION: 1. No significant stenosis. 2. Antegrade flow demonstrated within both vertebral arteries. Brain MRA 04/05/25 13:04 IMPRESSION: 1. Moderate stenosis at the intracranial right vertebral artery and diminutive distal left vertebral artery and basilar artery, bladder to which could be developmental with majority vascular flow to the bilateral posterior cerebral arteries supplied via a significantly larger caliber patent bilateral posterior commuting arteries. 2. Small region of flow to reperfusion associated with acute infarcts in the left frontal lobe, right thalamus and right parieto-occipital region. Labs Labs: Laboratory Results - last 24 hr 04/08/25 04/08/25 04/08/25 05:22 05:23 13:23 WBC 7.3 RBC 2.86 L Hgb 8.2 L Hct 27.3 L MCV 95.5 MCH 28.7 MCHC 30.0 L RDW 14.5 Plt Count 205 MPV 11.9 H Immature Gran % (Auto) 0.3 Neut % (Auto) 58.2 Lymph % (Auto) 20.2 [place] % (Auto) 12.6 H Eos % (Auto) 7.9 H Baso % (Auto) 0.8 Lymph # (Auto) 1.48 [place] # (Auto) 0.9 H Eos # (Auto) 0.6 H Baso # (Auto) 0.1 Abs Immat Gran (auto) 0.02 Absolute Neuts (auto) 4.3 Absolute Nucleated RBC 0.000 Nucleated RBC % 0.0 Sodium 138 Potassium 3.4 Chloride 108 H Carbon Dioxide 23 Anion Gap 7 BUN 53 H Creatinine 8.10 H Estim Creat Clear Calc 7 Estimated GFR 5 L Glucose 81 POC Capillary Glucose 70 Calcium 8.9 Magnesium 2.3 Total Bilirubin 0.3 AST 18 ALT 9 Alkaline Phosphatase 195 H Total Protein 5.7 L Albumin 2.9 L Quality VTE Prophylaxis VTE prophylaxis: mechanical ordered
[2025-04-08] MEDS: HEPARIN SODIUM, PORCINE 10,000 UNITS/10 ML VIAL 4000 UNITS IRRIGATION (14:44)
[2025-04-08] MEDS: ceFAZolin 2 GM/D5W 50 ML 2 GM/50 ML BAG IVPB (14:44)
[2025-04-08 15:13] LABS: Vitamin B1. 9 nmol/L (8-30)
[2025-04-08] MEDS: LIDO 1%/EPINEPHRINE 1:100,000 50 ML VIAL 30 ML INFILTRATE (15:19)
[2025-04-08] MEDS: SODIUM CHLORIDE 0.9% IV 500 ML 30 ML IV CONT (15:37)
--- NOTE | 2025-04-08 15:37 | W.PM.PROC2 ---
Procedure Note - Detailed Date of Procedure 04/08/25 Pre-op Diagnosis Stage 5 chronic kidney disease Post-op Diagnosis Same Procedure Performed Right internal jugular tunneled dialysis catheter placement using ultrasound and fluoroscopic guidance Surgeon John Silverman, DO Anesthesia MAC and Local (1% lidocaine with epinephrine) Indications Stage 5 chronic kidney disease Findings SonoSite ultrasound was used to identify the right internal jugular vein. This was visualized as a compressible vessel just lateral to the pulsatile carotid artery. The right internal jugular vein was accessed with an 18 gauge introducer needle under ultrasound guidance. Dark nonpulsatile blood was aspirated. Fluoroscopy was then used to guide advancement of the guidewire followed by the dilators and sheath. The final fluoroscopic images demonstrated the catheter tip in the distal SVC and no kinks along its path. Description of Procedure Procedure as well as risks, benefits, and alternatives were discussed with patient. Written consent was obtained and placed in chart prior to procedure. Patient was brought back to surgical suite. Placed supine on operating table. Time-out was done confirm patient procedure. IV sedation was then administered by the Anesthesia Department. Her chest and neck area was prepped and draped in sterile fashion using chlorhexidine prep. Patient was placed in Trendelenburg position. SonoSite ultrasound was used to identify the right internal jugular vein. It was visualized as a compressible vessel just lateral to the carotid artery. 1% lidocaine with epinephrine was infiltrated directly over the vessel under ultrasound guidance. An 18 gauge introducer needle was then advanced under ultrasound guidance directly into the right internal jugular vein. Dark nonpulsatile blood was aspirated. A 0.035 in guidewire was then advanced through the needle under fluoroscopic guidance. The guidewire was visualized advancing all the way down into the superior vena cava. 1% lidocaine with epinephrine was then infiltrated on the right anterior chest and along the tract up to the guidewire insertion site. A 5 mm incision was made with a 15 blade scalpel. A small jessica incision was then also made at the insertion site at the neck. The tunneler was then advanced from the chest incision up to the neck incision and the catheter tubing was brought up through this tract. The dilator and sheath were then advanced over the guidewire under fluoroscopic visualization. The dilator and guidewire were then removed leaving the sheath in place. The catheter tubing was then advanced through the sheath under fluoroscopic guidance. The sheath was unsnapped and carefully peeled away. The catheter tubing was released underneath the neck incision. Fluoroscopy was used to confirm proper placement of the catheter tubing and no kinks along its path. The catheter was then hep-locked with Hep-Lock solution. The skin of the incisions was then approximated using 4-0 Monocryl subcuticular suture. Exofin glue was then applied at the neck incision and 2x2 gauze and Tegaderm drassing applied at the chest. The patient was then awakened from anesthesia and transferred to recovery. Implants 24 cm DuraFlow2 dialysis catheter Estimated Blood Loss 5 Urine Output 150 Complications No immediate complications Condition Stable Disposition Floor [facility] - Charge Forward: Surgery [facility]
--- NOTE | 2025-04-08 15:50 | PCPTNOTE ---
Pt is out for testing and then going to Dialysis.
--- NOTE | 2025-04-08 17:08 | PC.NURSE ---
RN received report from Megan DUGGAN in recovery via telephone in regards to patient's status. Patient will be transferred from surgery to dialysis.
--- NOTE | 2025-04-08 18:15 | P.PNNP_ITS ---
Progress Note: A&P Assessment and Plan (1) End stage renal disease: Code(s): N18.6 - End stage renal disease Status: Chronic Assessment and Plan: * due progression of disease * was scheduled for AV access placement in anticipation of [employer]/hemodialysis but this never occurred due to insurance issues * she also did not follow-up with Dr. Colmenares after her June 2024 appointment... 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 several years ago * testing noted on this admission: * renal ultrasound c/w medical renal disease * urine eosinophils negative * nephrotic range proteinuria * urine electrolytes non-prerenal * s/p tunneled HD catheter placement (04/08) * HD today (2) Acute cerebrovascular accident (CVA): Code(s): I63.9 - Cerebral infarction, unspecified Status: Acute Assessment and Plan: * etiology of falls(?) * as noted by MRI/MRA brain: * small acute infarcts at the right thalamus and in the right parieto- occipital region along the margins of a small region of encephalomalacia consistent with a prior, now chronic infarct * couple additional small old lacunar infarcts in the left frontal lobe white matter * moderate stenosis at the intracranial right vertebral artery and diminutive distal left vertebral artery and basilar artery, bladder to which could be developmental with majority vascular flow to the bilateral posterior cerebral arteries supplied via a significantly larger caliber patent bilateral posterior commuting arteries * small region of flow to reperfusion associated with acute infarcts in the left frontal lobe, right thalamus and right parieto-occipital region. * carotid dopplers: No significant stenosis. Antegrade flow demonstrated within both vertebral arteries. * head CT: No fracture or acute intracranial process. * on statin/plavix/ASA * Neurology following (3) Fall: Qualifiers: Encounter type: initial encounter Qualified Code(s): W19.XXXA - Unspecified fall, initial encounter Code(s): W19.XXXA - Unspecified fall, initial encounter Status: Acute Assessment and Plan: * frequent falls x 1 week prior to admission * CT of head noted: * no fracture or acute intracranial process * moderate-sized region of encephalomalacia in the right parieto-occipital region consistent with sequela of old infarct * moderate scattered nonspecific white matter hypoattenuation consistent with chronic small vessel ischemic disease * interval development of a salt and pepper appearance to the skull typical of hyperparathyroidism or renal osteodystrophy * MRI of brain noted as well * fall precautions * ongoing PT/OT (4) Hypertension: Qualifiers: Hypertension type: secondary to other renal disorders Qualified Code(s): I15.1 - Hypertension secondary to other renal disorders; N28.89 - Other specified disorders of kidney and ureter Code(s): I10 - Essential (primary) hypertension Status: Chronic Assessment and Plan: * poor control on admission * better control at this time * will start lisinopril tomorrow * follow trend of hemodynamics (5) Metabolic acidosis: Code(s): E87.20 - Acidosis, unspecified Status: Acute Assessment and Plan: * secondary to advanced CKD * CO2 improving with oral sodium bicarbonate therapy * dialysis should continue to correct * d/c oral sodium bicarbonate with dialysis initiation (6) Anemia: Qualifiers: Anemia type: due to chronic kidney disease Chronic kidney disease stage: stage 5 (GFR < 15), not on chronic dialysis Qualified Code(s): N18.5 - Chronic kidney disease, stage 5; D63.1 - Anemia in chronic kidney disease Code(s): D64.9 - Anemia, unspecified Status: Acute Assessment and Plan: * likely related advanced CKD * anemia studies with adequate iron stores * EPogen with dialysis * follow trend of H/H (7) Hypercalcemia: Code(s): E83.52 - Hypercalcemia Status: Acute Assessment and Plan: * elevated on admission but better currently * extensive outpatient work-up reviewed: * 24 hour urine immunofixation with assymetrical beta and gamma regions * 24hr urine calcium + creatinine suggestive of primary or tertiary hyperparathyroidism * Vitamin A, THOM level, and PTHrp okay * Nuc Med Parathyroid scan negative * suspect a combination of primary mixed with secondary hyperparathyroidism * given elevated PTH and associated renal osteodystrophy, started on sensipar and Vitamin D * follow trend (8) Diet-controlled type 2 diabetes mellitus: Code(s): E11.9 - Type 2 diabetes mellitus without complications Status: Chronic Assessment and Plan: * follow accu-cheks * not currently on any diabetic medications Will continue to follow. L Subjective Date/time seen: 04/08/25 18:15 Interval history: Follow-up for end stage renal disease on hemodialysis. Chart reviewed since last seen -- s/p tunneled HD catheter placement earlier this afternoon and tolerating dialysis treatment at the time of my visit (seen on HD at 6:05pm); no apparent distress noted; no events overnight or earlier this morning. Exam 2 Narrative: General: elderly but WD/WN female in NAD Heart: normal S1 and S2; no rub Lungs: clear to auscultation Abdomen: soft, nontender, nondistended, positive bowel sounds Extremities: no cyanosis or clubbing; no edema Skin: warm and dry Objective Data Vital Signs Vital Signs: Vital Signs Temp Pulse Resp BP Pulse Ox O2 Del Method O2 Flow Rate 04/08/25 18:15 69 201/97 H 04/08/25 18:00 70 184/70 H 04/08/25 17:45 73 200/93 H 04/08/25 17:31 75 194/100 H 04/08/25 17:22 97.9 F 81 16 197/97 H 04/08/25 16:50 71 14 172/77 H 97 Room Air 04/08/25 16:35 71 12 181/85 H 96 Room Air 04/08/25 16:20 71 14 182/85 H 100 Room Air 04/08/25 16:05 77 12 174/80 H 100 Room Air 04/08/25 15:50 74 12 154/78 H 100 Simple Face Mask 8 04/08/25 15:40 78 12 99 Simple Face Mask 8 04/08/25 15:37 97.1 F L 72 15 165/74 H 100 Simple Face Mask 6 04/08/25 12:55 98.1 F 80 16 155/78 H 100 Room Air 04/08/25 12:00 83 04/08/25 08:00 72 04/08/25 08:00 Room Air 04/08/25 06:00 98.6 F 76 18 137/65 100 04/08/25 04:00 78 04/08/25 00:00 84 04/07/25 22:09 98.6 F 81 20 152/88 H 100 04/07/25 20:00 77 04/07/25 20:00 Room Air Intake/Output Intake/Output: Intake & Output 04/05/25 04/06/25 04/07/25 04/08/25 23:59 23:59 23:59 23:59 Intake Total 1160 1020 1520 450 Output Total 1200 400 700 Balance -40 1020 1120 -250 Meds/Results Medications: Active Medications Generic Name Dose Route Start Last Admin Trade Name Freq PRN Reason Stop Dose Admin Acetaminophen 650 mg 04/03/25 16:59 04/06/25 09:07 Acetaminophen 325 Mg Tablet PO 650 mg Q4H PRN Administration Mild Pain (1-3) or Fever Hydrocodone Bitart/Acetaminophen 1 tab 04/03/25 16:59 Hydrocodone/Acetaminophen (*Crx) 5-325 Mg Tablet PO Q4H PRN Pain Rated 4-6 Aspirin 81 mg 04/05/25 09:00 04/08/25 11:21 Aspirin 81 Mg Enteric Tablet PO Not Given QAM [facility] Atorvastatin Calcium 40 mg 04/05/25 09:00 04/08/25 11:21 Atorvastatin 40 Mg Tablet PO Not Given DAILY [facility] Carvedilol 12.5 mg 04/03/25 21:00 04/08/25 11:21 Carvedilol 12.5 Mg Tablet PO Not Given Q12HR [facility] Cinacalcet 30 mg 04/06/25 17:00 04/08/25 16:49 Cinacalcet 30 Mg Tablet PO Not Given Q24H [facility] Clopidogrel Bisulfate 75 mg 04/05/25 09:00 04/08/25 11:22 Clopidogrel Bisulfate 75 Mg Tablet PO Not Given QAM [facility] Docusate Sodium 100 mg 04/06/25 21:00 04/08/25 11:22 Docusate Sodium 100 Mg Capsule PO Not Given Q12HR [facility] Epoetin Isac-epbx 10,000 units 04/08/25 09:00 04/08/25 18:23 Epoetin Isac-Epbx 10,000 Units/Ml Vial IV PUSH 10,000 units MOWEFR@09 [facility] Administration Ergocalciferol 1,250 mcg 04/05/25 09:40 04/05/25 10:18 Ergocalciferol (Vitamin D2) 1,250 Mcg (50,000 Units) Capsule PO 1,250 mcg Fr@0900 [facility] Administration Heparin Sodium (Porcine) 5,000 units 04/04/25 22:00 04/05/25 08:49 Heparin Sodium 5,000 Units/Ml Vial SUB-Q 5,000 units Q8HR [facility] Administration Hydralazine HCl 10 mg 04/03/25 17:04 04/03/25 20:27 Hydralazine Hcl 20 Mg/Ml Vial IV PUSH 10 mg Q8H PRN Administration Blood Pressure - High Lisinopril 20 mg 04/09/25 09:00 Lisinopril 20 Mg Tablet PO QAM [facility]AVI Ondansetron HCl 4 mg 04/03/25 16:59 04/06/25 09:16 Ondansetron Inj 4 Mg/2 Ml Vial IV PUSH 4 mg Q4H PRN Administration Nausea Pantoprazole Sodium 20 mg 04/06/25 10:35 04/08/25 11:22 Pantoprazole Sod Sesquihydrate 20 Mg Tab PO Not Given QAM [facility]I Polyethylene Glycol 17 gm 04/06/25 09:25 04/08/25 11:22 Polyethylene Glycol 3350 17 Gm Powd.Pack PO Not Given QAM RAVI Sodium Bicarbonate 1,300 mg 04/03/25 18:50 04/08/25 16:49 Sodium Bicarbonate Tab 650 Mg Tablet PO Not Given BIDPC RAVI Trazodone HCl 50 mg 04/04/25 01:38 04/07/25 20:50 Trazodone Hcl 50 Mg Tablet PO 50 mg HS PRN Administration Insomnia Venlafaxine HCl 150 mg 04/04/25 09:00 04/08/25 11:22 Venlafaxine Hcl Xr 75 Mg Cap.Er.24h PO Not Given DAILY [facility] Radiology Results: ITS Impressions Head CT 04/03/25 13:41 IMPRESSION: 1. No fracture or acute intracranial process. 2. Moderate-sized region of encephalomalacia in the right parieto-occipital region consistent with sequela of old infarct. 3. Moderate scattered nonspecific white matter hypoattenuation consistent with chronic small vessel ischemic disease. 4. Interval development of a salt and pepper appearance to the skull typical of hyperparathyroidism or renal osteodystrophy. Renal Ultrasound 04/03/25 20:52 IMPRESSION: No hydronephrosis or renal calculi. Findings suggesting medical renal disease. Brain MRI 04/04/25 11:59 IMPRESSION: 1. Small acute infarcts at the right thalamus and in the right parieto-occipital region along the margins of a small region of encephalomalacia consistent with a prior, now chronic infarct. 2. Couple additional small old lacunar infarcts in the left frontal lobe white matter. 3. Moderate diffuse periventricular predominant nonspecific white matter T2 hyperintensity consistent with chronic small vessel ischemic disease. 4. Decreased T1 fat signal throughout the diploic space of the calvarium with corresponding solid and pepper appearance to the calvarium on prior CT most suggestive of sequela of hyperparathyroidism or renal osteodystrophy. ADDENDUM: 04/05/25 1324 ADDENDUM: Note there is an additional small region of restricted diffusion consistent with acute infarct in the anterior left frontal lobe. Carotid Doppler Study 04/05/25 10:07 IMPRESSION: 1. No significant stenosis. 2. Antegrade flow demonstrated within both vertebral arteries. Brain MRA 04/05/25 13:04 IMPRESSION: 1. Moderate stenosis at the intracranial right vertebral artery and diminutive distal left vertebral artery and basilar artery, bladder to which could be developmental with majority vascular flow to the bilateral posterior cerebral arteries supplied via a significantly larger caliber patent bilateral posterior commuting arteries. 2. Small region of flow to reperfusion associated with acute infarcts in the left frontal lobe, right thalamus and right parieto-occipital region. Central Venous Line 04/08/25 16:00 IMPRESSION: 1. Fluoroscopy utilized during placement of a likely tunneled right internal jugular central venous catheter with distal tip at the right atrium. See procedure note for further detail. Chest X-Ray 04/08/25 16:02 IMPRESSION: 1. Likely tunneled right internal jugular central venous catheter with distal tip in the right atrium. 2. Bandlike opacity medial left lower lung zone and favor atelectasis over pneumonia. Labs Labs: Laboratory Tests 04/08/25 05:23 04/08/25 05:22 Calcium 8.9 Magnesium 2.3 Total Bilirubin 0.3 AST 18 ALT 9 Alkaline Phosphatase 195 H Total Protein 5.7 L Albumin 2.9 L
[2025-04-08] MEDS: EPOETIN ALFA-EPBX 10,000 UNITS/ML VIAL 10000 UNITS IV PUSH (18:23)
[2025-04-08] MEDS: DOCUSATE SODIUM 100 MG CAPSULE PO (21:03)
--- NOTE | 2025-04-08 22:30 | PC.NURSE ---
Pt having blood and serous fluid coming from new Dialysis site. Call placed to Dr Shore and new order to apply pressure received and monitor. ABD applied on top of current dressing and pressure applied to site for 15 min. ABd half saturated and then changed and will evaluate.
[2025-04-09] VITALS (24 sets, daily range): BP systolic 101–180; BP diastolic 56–92; PULSE 82–107; RESP 12–20; TEMP 36.3–37.2; O2SAT 96–100
[2025-04-09 05:40] LABS: Hematocrit 28.3 % (37.0-47.0); Hemoglobin 8.5 g/dL (12.0-15.0); Immature Granulocyte Percent A 0.4 % (0-0.5); Lymphocytes Absolute Auto 1.35 K/mm3 (0.9-3.2); Mean Corpuscular HGB Conc 30.0 g/dl (32-36); Mean Corpuscular Hemoglobin 28.5 pg (26-34); Mean Corpuscular Volume 95.0 fl (80-100); Nucleated Red Blood Cells Absolute Auto 0.000 K/mm3 (0.0-0.012); Nucleated Red Blood Cells Perc 0.0 % (0.0-0.2); Platelet Count Result 209 k/mm3 (150-375); Red Blood Count 2.98 M/mm3 (4.2-5.4); White Blood Count 8.1 K/mm3 (4.5-10.0)
--- NOTE | 2025-04-09 06:38 | PC.NURSE ---
Received patient from dialysis with a dialysis cath, Pt stable, with elevated blood pressure of 191/88. Hydralazine 10mg given PRN. Dressing saturated and bleeding noted from the site, MD made aware and ordered pressure dressing with ABD pad which was applied and improvement noted from the dressing site.
--- NOTE | 2025-04-09 07:33 | PC.NURSE ---
To dialysis via bed.
[2025-04-09 07:54] LABS: Alanine Aminotransferase 8 U/L (6-35); Albumin Level 2.9 g/dL (3.5-5.1); Alkaline Phosphatase 190 U/L (38-126); Anion Gap 8 mmol/L (4-12); Aspartate Amino Transferase 20 U/L (14-36); Bilirubin,Total 0.4 mg/dL (0.2-1.3); Blood Urea Nitrogen 32 mg/dL (7-17); Calcium 9.2 mg/dL (8.4-10.2); Carbon Dioxide 24 mmol/L (22-30); Chloride 106 mmol/L (98-107); Estimated CRCL calculation 10 ml/min; Estimated Glomerular Filt Rate 8; Glucose 91 mg/dL (65-110); Magnesium 2.0 mg/dL (1.6-2.3); Potassium 3.4 mmol/L (3.4-5.0); Sodium 138 mmol/L (137-145); Total Protein 5.7 g/dL (6.3-8.2)
--- NOTE | 2025-04-09 08:09 | P.PNIM_ITS ---
Progress Note: A&P Assessment and Plan (1) Chronic kidney disease, stage 5: Code(s): N18.5 - Chronic kidney disease, stage 5 Status: Acute Assessment and Plan: - previous history of SAEID/rhabdomyolysis resulting in need for temporary dialysis. Per last Nephrology note in June of 2024, patient had been off dialysis. - creatinine 8.7, BUN 39, GFR 5 on admission. Previously 5.0, BUN 35, GFR 9 in June of 2024. - monitor electrolyte - renal diet - continue home sodium bicarbonate p.o. 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 Removed prior to dialysis and bleeding has subsided. H/H remains stable. Continue to monitor. Surgery aware. Patient had dialysis today. Tolerated well. (2) Acute right arterial ischemic stroke, MCA (middle cerebral artery): Code(s): I63.511 - Cerebral infarction due to unspecified occlusion or stenosis of right middle cerebral artery Status: Acute Assessment and Plan: - Lipid panel: elevated - Carotid dopplers: No significant stenosis. Antegrade flow demonstrated within both vertebral arteries. - Head CT: No fracture or acute intracranial process. - MRI: Small acute infarcts at the right thalamus and in the right parieto- occipital region along the margins of a small region of encephalomalacia consistent with a prior, now chronic infarct. Couple additional small old lacunar infarcts in the left frontal lobe white matter. - MRA: Moderate stenosis at the intracranial right vertebral artery and diminutive distal left vertebral artery and basilar artery, bladder to which could be developmental with majority vascular flow to the bilateral posterior cerebral arteries supplied via a significantly larger caliber patent bilateral posterior commuting arteries. Small region of flow to reperfusion associated with acute infarcts in the left frontal lobe, right thalamus and right parieto- occipital region. - Echo: LVEF 55-60% with grade I diastolic dysfunction - High-intensity statin: Atorvastatin 40 mg daily - Dual antiplatelet: Plavix 75 mg and aspirin 81 mg daily - Monitor CBC, CMP, magnesium, troponin, and lipid profile - Monitor blood pressure, allow for permissive hypertension. - Telemetry monitoring - Monitor blood glucose - PT/OT eval and treat - Neurology consulted (3) Fall: Qualifiers: Encounter type: initial encounter Qualified Code(s): W19.XXXA - Unspecified fall, initial encounter Code(s): W19.XXXA - Unspecified fall, initial encounter Status: Acute Assessment and Plan: - reported frequent falls for the past week - new CVA see plan above. - Shoulder XR unremarkable - UA and CXR negative for findings for infection - PT/OT evaluation for rehab services, recommending SNF. Care coordination following. - fall precaution (4) Anemia: Qualifiers: Anemia type: due to chronic kidney disease Chronic kidney disease stage: stage 5 (GFR < 15), not on chronic dialysis Qualified Code(s): N18.5 - Chronic kidney disease, stage 5; D63.1 - Anemia in chronic kidney disease Code(s): D64.9 - Anemia, unspecified Status: Acute Assessment and Plan: - H/H remains stable - Hx of CKD stage 4, anemia in setting of chronic disease - transfuse if <7 - trend CBC Per RN patient developed bleeding overnight at the catheter site requiring pressure dressing. Removed prior to dialysis and bleeding has subsided. H/H remains stable. Continue to monitor. Surgery aware. (5) Hypertension: Qualifiers: Hypertension type: secondary to other renal disorders Qualified Code(s): I15.1 - Hypertension secondary to other renal disorders; N28.89 - Other specified disorders of kidney and ureter Code(s): I10 - Essential (primary) hypertension Status: Chronic Assessment and Plan: - chronic, previously not well controlled. Arrived 205/102. - continue home medications: Carvedilol 12.5 mg BID and PRN hydralazine - blood pressures 141/65. Continue to monitor (6) Diet-controlled type 2 diabetes mellitus: Code(s): E11.9 - Type 2 diabetes mellitus without complications Status: Chronic Assessment and Plan: - not currently on any diabetic medications, diet controlled - A1c 4.6 Time Spent With Patient Time with patient: 25 - 35 minutes Subjective Date/time seen: 04/09/25 08:09 Interval history: 64 year old female with past medical history of CKD, SAEID requiring temporary dialysis, chronic anemia, type 2 DM, breast cancer s/p chemotherapy mastectomy, and hypertension presents to the hospital with frequent falls and generalized weakness. Patient is pleasant sitting up comfortably in her chair working with therapy. She has no complaints at this time denying any chest pain, shortness a breath, palpitations, nausea/vomiting, and abdominal pain. She stated that she tolerated dialysis well. Discussed patient with her RN who states that she developed bleeding overnight in a pressure dressing was used on the dialysis catheter. This was removed prior to dialysis and no rebleeding has occurred. Patient's H&H remains stable. Review of Systems Review of Systems: All systems reviewed & are unremarkable except as noted in HPI and below Exam Narrative: AF HR 87 RR 12 SpO2 100 BP 141/65 General: female in no acute respiratory distress who is nontoxic appearing, lying semi recumbent in bed. HEENT: Normocephalic. Atraumatic. Extraocular movement intact. Sclera clear and anicteric. No facial asymmetry. Chest: Lungs are clear to auscultation bilaterally. No wheezes or crackles. Dialysis catheter in place with clean/dry/intact dressing. CV: Heart was regular rate and rhythm. S1-S2. No murmurs, gallops, or rubs. Abd: Abdomen was soft. Nontender. Nondistended. Positive bowel sounds. Ext: No clubbing, cyanosis, or edema. DP pulses bilaterally. Neuro: Patient is alert and oriented x4. Strength is 5/5 in both upper and lower extremities. Speech is clear. Objective Data Vital Signs Vital Signs: Vital Signs - 24 hr 04/08/25 12:00 04/08/25 12:55 04/08/25 15:37 Temperature 98.1 F 97.1 F L Pulse Rate 83 80 72 Respiratory Rate 16 15 Blood Pressure 155/78 H 165/74 H Pulse Oximetry 100 100 Oxygen Delivery Room Air Simple Face Mask Oxygen Flow Rate 6 Fraction of Inspired Oxygen 04/08/25 15:40 04/08/25 15:50 04/08/25 16:05 Temperature Pulse Rate 78 74 77 Respiratory Rate 12 12 12 Blood Pressure 154/78 H 174/80 H Pulse Oximetry 99 100 100 Oxygen Delivery Simple Face Mask Simple Face Mask Room Air Oxygen Flow Rate 8 8 Fraction of Inspired Oxygen 04/08/25 16:20 04/08/25 16:35 04/08/25 16:50 Temperature Pulse Rate 71 71 71 Respiratory Rate 14 12 14 Blood Pressure 182/85 H 181/85 H 172/77 H Pulse Oximetry 100 96 97 Oxygen Delivery Room Air Room Air Room Air Oxygen Flow Rate Fraction of Inspired Oxygen 04/08/25 17:22 04/08/25 17:31 04/08/25 17:45 Temperature 97.9 F Pulse Rate 81 75 73 Respiratory Rate 16 Blood Pressure 197/97 H 194/100 H 200/93 H Pulse Oximetry Oxygen Delivery Oxygen Flow Rate Fraction of Inspired Oxygen 04/08/25 18:00 04/08/25 18:15 04/08/25 18:30 Temperature Pulse Rate 70 69 69 Respiratory Rate Blood Pressure 184/70 H 201/97 H 198/91 H Pulse Oximetry Oxygen Delivery Oxygen Flow Rate Fraction of Inspired Oxygen 04/08/25 18:45 04/08/25 19:00 04/08/25 19:15 Temperature Pulse Rate 71 91 71 Respiratory Rate Blood Pressure 184/88 H 181/96 H 194/97 H Pulse Oximetry Oxygen Delivery Oxygen Flow Rate Fraction of Inspired Oxygen 04/08/25 19:30 04/08/25 19:39 04/08/25 19:50 Temperature 98.1 F Pulse Rate 71 73 82 Respiratory Rate 16 Blood Pressure 189/96 H 186/96 H 191/88 H Pulse Oximetry Oxygen Delivery Oxygen Flow Rate Fraction of Inspired Oxygen 04/08/25 20:00 04/08/25 22:24 04/09/25 00:00 Temperature 97.9 F Pulse Rate 98 81 97 Respiratory Rate 20 20 Blood Pressure 186/82 H Pulse Oximetry 100 100 Oxygen Delivery Room Air Oxygen Flow Rate Fraction of Inspired Oxygen 21 04/09/25 02:50 04/09/25 04:00 04/09/25 06:47 Temperature 98.8 F 99.0 F Pulse Rate 98 88 88 Respiratory Rate 20 20 Blood Pressure 146/74 H 144/65 H Pulse Oximetry 100 100 Oxygen Delivery Oxygen Flow Rate Fraction of Inspired Oxygen Intake/Output Intake/Output: Intake & Output 04/06/25 04/07/25 04/08/25 04/09/25 23:59 23:59 23:59 23:59 Intake Total 1020 1520 450 300 Output Total 400 700 Balance 1020 1120 -250 300 Meds/Results Medications: Active Medications Generic Name Dose Route Start Last Admin Trade Name Freq PRN Reason Stop Dose Admin Acetaminophen 650 mg 04/03/25 16:59 04/06/25 09:07 Acetaminophen 325 Mg Tablet PO 650 mg Q4H PRN Administration Mild Pain (1-3) or Fever Hydrocodone Bitart/Acetaminophen 1 tab 04/03/25 16:59 Hydrocodone/Acetaminophen (*Crx) 5-325 Mg Tablet PO Q4H PRN Pain Rated 4-6 Aspirin 81 mg 04/05/25 09:00 04/08/25 11:21 Aspirin 81 Mg Enteric Tablet PO Not Given QAM RAVI Atorvastatin Calcium 40 mg 04/05/25 09:00 04/08/25 11:21 Atorvastatin 40 Mg Tablet PO Not Given DAILY RAVI Carvedilol 12.5 mg 04/03/25 21:00 04/08/25 21:03 Carvedilol 12.5 Mg Tablet PO 12.5 mg Q12HR RAVI Administration Cinacalcet 30 mg 04/06/25 17:00 04/08/25 16:49 Cinacalcet 30 Mg Tablet PO Not Given Q24H RAVI Clopidogrel Bisulfate 75 mg 04/05/25 09:00 04/08/25 11:22 Clopidogrel Bisulfate 75 Mg Tablet PO Not Given QAM RAVI Docusate Sodium 100 mg 04/06/25 21:00 04/08/25 21:03 Docusate Sodium 100 Mg Capsule PO 100 mg Q12HR RAVI Administration Epoetin Isac-epbx 10,000 units 04/09/25 18:18 Epoetin Isac-Epbx 10,000 Units/Ml Vial IV PUSH 04/09/25 18:19 ONCE ONE Ergocalciferol 1,250 mcg 04/05/25 09:40 04/05/25 10:18 Ergocalciferol (Vitamin D2) 1,250 Mcg (50,000 Units) Capsule PO 1,250 mcg Fr@0900 RAIV Administration Heparin Sodium (Porcine) 5,000 units 04/04/25 22:00 04/08/25 21:08 Heparin Sodium 5,000 Units/Ml Vial SUB-Q 5,000 units Q8HR RAVI Administration Hydralazine HCl 10 mg 04/03/25 17:04 04/08/25 21:07 Hydralazine Hcl 20 Mg/Ml Vial IV PUSH 10 mg Q8H PRN Administration Blood Pressure - High Albumin Human 50 mls @ 999 mls/hr 04/09/25 06:15 Albutein IVPB 05/09/25 06:14 Q10M PRN HYPOTENSION Lisinopril 20 mg 04/09/25 09:00 Lisinopril 20 Mg Tablet PO QAM RAVI Ondansetron HCl 4 mg 04/03/25 16:59 04/06/25 09:16 Ondansetron Inj 4 Mg/2 Ml Vial IV PUSH 4 mg Q4H PRN Administration Nausea Pantoprazole Sodium 20 mg 04/06/25 10:35 04/08/25 11:22 Pantoprazole Sod Sesquihydrate 20 Mg Tab PO Not Given QAM RAVI Polyethylene Glycol 17 gm 04/06/25 09:25 04/08/25 11:22 Polyethylene Glycol 3350 17 Gm Powd.Pack PO Not Given QAM RAVI Sodium Bicarbonate 1,300 mg 04/03/25 18:50 04/08/25 16:49 Sodium Bicarbonate Tab 650 Mg Tablet PO Not Given BIDPC RAVI Trazodone HCl 50 mg 04/04/25 01:38 04/08/25 21:03 Trazodone Hcl 50 Mg Tablet PO 50 mg HS PRN Administration Insomnia Venlafaxine HCl 150 mg 04/04/25 09:00 04/08/25 11:22 Venlafaxine Hcl Xr 75 Mg Cap.Er.24h PO Not Given DAILY RAVI Radiology Results: ITS Impressions Head CT 04/03/25 13:41 IMPRESSION: 1. No fracture or acute intracranial process. 2. Moderate-sized region of encephalomalacia in the right parieto-occipital region consistent with sequela of old infarct. 3. Moderate scattered nonspecific white matter hypoattenuation consistent with chronic small vessel ischemic disease. 4. Interval development of a salt and pepper appearance to the skull typical of hyperparathyroidism or renal osteodystrophy. Renal Ultrasound 04/03/25 20:52 IMPRESSION: No hydronephrosis or renal calculi. Findings suggesting medical renal disease. Brain MRI 04/04/25 11:59 IMPRESSION: 1. Small acute infarcts at the right thalamus and in the right parieto-occipital region along the margins of a small region of encephalomalacia consistent with a prior, now chronic infarct. 2. Couple additional small old lacunar infarcts in the left frontal lobe white matter. 3. Moderate diffuse periventricular predominant nonspecific white matter T2 hyperintensity consistent with chronic small vessel ischemic disease. 4. Decreased T1 fat signal throughout the diploic space of the calvarium with corresponding solid and pepper appearance to the calvarium on prior CT most suggestive of sequela of hyperparathyroidism or renal osteodystrophy. ADDENDUM: 04/05/25 1324 ADDENDUM: Note there is an additional small region of restricted diffusion consistent with acute infarct in the anterior left frontal lobe. Carotid Doppler Study 04/05/25 10:07 IMPRESSION: 1. No significant stenosis. 2. Antegrade flow demonstrated within both vertebral arteries. Brain MRA 04/05/25 13:04 IMPRESSION: 1. Moderate stenosis at the intracranial right vertebral artery and diminutive distal left vertebral artery and basilar artery, bladder to which could be developmental with majority vascular flow to the bilateral posterior cerebral arteries supplied via a significantly larger caliber patent bilateral posterior commuting arteries. 2. Small region of flow to reperfusion associated with acute infarcts in the left frontal lobe, right thalamus and right parieto-occipital region. Central Venous Line 04/08/25 16:00 IMPRESSION: 1. Fluoroscopy utilized during placement of a likely tunneled right internal jugular central venous catheter with distal tip at the right atrium. See procedure note for further detail. Chest X-Ray 04/08/25 16:02 IMPRESSION: 1. Likely tunneled right internal jugular central venous catheter with distal tip in the right atrium. 2. Bandlike opacity medial left lower lung zone and favor atelectasis over pneumonia. Labs Labs: Laboratory Results - last 24 hr 04/04/25 04/08/25 04/08/25 19:13 13:23 16:00 WBC RBC Hgb Hct MCV MCH MCHC RDW Plt Count MPV Immature Gran % (Auto) Neut % (Auto) Lymph % (Auto) [place] % (Auto) Eos % (Auto) Baso % (Auto) Lymph # (Auto) [place] # (Auto) Eos # (Auto) Baso # (Auto) Abs Immat Gran (auto) Absolute Neuts (auto) Absolute Nucleated RBC Nucleated RBC % Sodium Potassium Chloride Carbon Dioxide Anion Gap BUN Creatinine Estim Creat Clear Calc Estimated GFR Glucose POC Capillary Glucose 70 71 Calcium Magnesium Total Bilirubin AST ALT Alkaline Phosphatase Total Protein Albumin Vitamin B1 9 04/09/25 05:13 WBC 8.1 RBC 2.98 L Hgb 8.5 L Hct 28.3 L MCV 95.0 MCH 28.5 MCHC 30.0 L RDW 14.2 Plt Count 209 MPV 11.3 H Immature Gran % (Auto) 0.4 Neut % (Auto) 64.4 Lymph % (Auto) 16.7 L [place] % (Auto) 13.8 H Eos % (Auto) 3.8 Baso % (Auto) 0.9 Lymph # (Auto) 1.35 [place] # (Auto) 1.1 H Eos # (Auto) 0.3 Baso # (Auto) 0.1 Abs Immat Gran (auto) 0.03 Absolute Neuts (auto) 5.2 Absolute Nucleated RBC 0.000 Nucleated RBC % 0.0 Sodium 138 Potassium 3.4 Chloride 106 Carbon Dioxide 24 Anion Gap 8 BUN 32 H D Creatinine 5.43 H Estim Creat Clear Calc 10 Estimated GFR 8 L Glucose 91 POC Capillary Glucose Calcium 9.2 Magnesium 2.0 Total Bilirubin 0.4 AST 20 ALT 8 Alkaline Phosphatase 190 H Total Protein 5.7 L Albumin 2.9 L Vitamin B1 Quality VTE Prophylaxis VTE prophylaxis: pharmacologic ordered
--- NOTE | 2025-04-09 08:51 | WPDANESPN ---
Anes - Prog Note Post-Op Date/Time: 04/09/25 08:51 Cardiovascular status: normal Respiratory status: normal Airway patency: baseline Mental status: baseline Post-Op hydration status: normal Vital Signs: Last Vital Signs Temp 36.4 C L 04/09/25 08:00 Pulse 83 04/09/25 08:30 Resp 14 04/09/25 08:00 BP 171/90 H 04/09/25 08:30 Pulse Ox 96 04/09/25 08:00 O2 Del Method Room Air 04/08/25 20:00 O2 Flow Rate 8 04/08/25 15:50 FiO2 21 04/08/25 20:00 Pain Score (VAS): 2 I/O: Intake & Output 04/08/25 04/09/25 04/09/25 23:59 07:59 15:59 Intake Total 400 300 Output Total 0 Balance 400 300 Laboratory Tests 04/09/25 05:13 04/09/25 05:13 04/04/25 04/08/25 04/08/25 19:13 13:23 16:00 WBC RBC Hgb Hct MCV MCH MCHC RDW Plt Count MPV Immature Gran % (Auto) Neut % (Auto) Lymph % (Auto) [place] % (Auto) Eos % (Auto) Baso % (Auto) Lymph # (Auto) [place] # (Auto) Eos # (Auto) Baso # (Auto) Abs Immat Gran (auto) Absolute Neuts (auto) Absolute Nucleated RBC Nucleated RBC % Sodium Potassium Chloride Carbon Dioxide Anion Gap BUN Creatinine Estim Creat Clear Calc Estimated GFR Glucose POC Capillary Glucose 70 71 Calcium Magnesium Total Bilirubin AST ALT Alkaline Phosphatase Total Protein Albumin Vitamin B1 9 04/09/25 05:13 WBC 8.1 RBC 2.98 L Hgb 8.5 L Hct 28.3 L MCV 95.0 MCH 28.5 MCHC 30.0 L RDW 14.2 Plt Count 209 MPV 11.3 H Immature Gran % (Auto) 0.4 Neut % (Auto) 64.4 Lymph % (Auto) 16.7 L [place] % (Auto) 13.8 H Eos % (Auto) 3.8 Baso % (Auto) 0.9 Lymph # (Auto) 1.35 [place] # (Auto) 1.1 H Eos # (Auto) 0.3 Baso # (Auto) 0.1 Abs Immat Gran (auto) 0.03 Absolute Neuts (auto) 5.2 Absolute Nucleated RBC 0.000 Nucleated RBC % 0.0 Sodium 138 Potassium 3.4 Chloride 106 Carbon Dioxide 24 Anion Gap 8 BUN 32 H D Creatinine 5.43 H Estim Creat Clear Calc 10 Estimated GFR 8 L Glucose 91 POC Capillary Glucose Calcium 9.2 Magnesium 2.0 Total Bilirubin 0.4 AST 20 ALT 8 Alkaline Phosphatase 190 H Total Protein 5.7 L Albumin 2.9 L Vitamin B1 Post-procedural complaints: none Patient Feedback: Patient satisfied with anesthetic care.
--- NOTE | 2025-04-09 09:45 | P.PNNP_ITS ---
Progress Note: A&P Assessment and Plan (1) End stage renal disease: Code(s): N18.6 - End stage renal disease Status: Chronic Assessment and Plan: * due progression of disease * was scheduled for AV access placement in anticipation of [employer]/hemodialysis but this never occurred due to insurance issues * she also did not follow-up with Dr. Colmenares after her June 2024 appointment... 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 several years ago * testing noted on this admission: * renal ultrasound c/w medical renal disease * urine eosinophils negative * nephrotic range proteinuria * urine electrolytes non-prerenal * s/p tunneled HD catheter placement (04/08) * HD yesterday * HD today (2) Acute cerebrovascular accident (CVA): Code(s): I63.9 - Cerebral infarction, unspecified Status: Acute Assessment and Plan: * etiology of falls(?) * as noted by MRI/MRA brain: * small acute infarcts at the right thalamus and in the right parieto- occipital region along the margins of a small region of encephalomalacia consistent with a prior, now chronic infarct * couple additional small old lacunar infarcts in the left frontal lobe white matter * moderate stenosis at the intracranial right vertebral artery and diminutive distal left vertebral artery and basilar artery, bladder to which could be developmental with majority vascular flow to the bilateral posterior cerebral arteries supplied via a significantly larger caliber patent bilateral posterior commuting arteries * small region of flow to reperfusion associated with acute infarcts in the left frontal lobe, right thalamus and right parieto-occipital region. * carotid dopplers: No significant stenosis. Antegrade flow demonstrated within both vertebral arteries. * head CT: No fracture or acute intracranial process. * on statin/plavix/ASA * Neurology following (3) Fall: Qualifiers: Encounter type: initial encounter Qualified Code(s): W19.XXXA - Unspecified fall, initial encounter Code(s): W19.XXXA - Unspecified fall, initial encounter Status: Acute Assessment and Plan: * frequent falls x 1 week prior to admission * CT of head noted: * no fracture or acute intracranial process * moderate-sized region of encephalomalacia in the right parieto-occipital region consistent with sequela of old infarct * moderate scattered nonspecific white matter hypoattenuation consistent with chronic small vessel ischemic disease * interval development of a salt and pepper appearance to the skull typical of hyperparathyroidism or renal osteodystrophy * MRI of brain noted as well * fall precautions * ongoing PT/OT (4) Hypertension: Qualifiers: Hypertension type: secondary to other renal disorders Qualified Code(s): I15.1 - Hypertension secondary to other renal disorders; N28.89 - Other specified disorders of kidney and ureter Code(s): I10 - Essential (primary) hypertension Status: Chronic Assessment and Plan: * poor control on admission * better control at this time * lisinopril added * follow trend of hemodynamics (5) Metabolic acidosis: Code(s): E87.20 - Acidosis, unspecified Status: Acute Assessment and Plan: * secondary to advanced CKD * CO2 improving with oral sodium bicarbonate therapy * dialysis should continue to correct/stabilize * d/c oral sodium bicarbonate with dialysis initiation (6) Anemia: Qualifiers: Anemia type: due to chronic kidney disease Chronic kidney disease stage: stage 5 (GFR < 15), not on chronic dialysis Qualified Code(s): N18.5 - Chronic kidney disease, stage 5; D63.1 - Anemia in chronic kidney disease Code(s): D64.9 - Anemia, unspecified Status: Acute Assessment and Plan: * likely related advanced CKD * anemia studies with adequate iron stores * EPogen with dialysis * follow trend of H/H (7) Hypercalcemia: Code(s): E83.52 - Hypercalcemia Status: Acute Assessment and Plan: * elevated on admission but better currently * extensive outpatient work-up reviewed: * 24 hour urine immunofixation with assymetrical beta and gamma regions * 24hr urine calcium + creatinine suggestive of primary or tertiary hyperparathyroidism * Vitamin A, THOM level, and PTHrp okay * Nuc Med Parathyroid scan negative * suspect a combination of primary mixed with secondary hyperparathyroidism * given elevated PTH and associated renal osteodystrophy, started on sensipar and Vitamin D * follow trend (8) Diet-controlled type 2 diabetes mellitus: Code(s): E11.9 - Type 2 diabetes mellitus without complications Status: Chronic Assessment and Plan: * follow accu-cheks * not currently on any diabetic medications Will continue to follow. L Subjective Date/time seen: 04/09/25 09:45 Interval history: Follow-up for chronic kidney disease with progression to end stage renal disease. Status post tunneled HD catheter placement yesterday afternoon followed by dialysis treatment -- tolerated both procedures reasonably well; tolerating dialysis treatment at the time of my visit (seen on HD at 9:35AM); no other acute issues or problems voiced; no events overnight or earlier this morning. Exam 2 Narrative: General: elderly but WD/WN female in NAD Heart: normal S1 and S2; no rub Lungs: clear to auscultation Abdomen: soft, nontender, nondistended, positive bowel sounds Extremities: no cyanosis or clubbing; no edema Skin: warm and intact Objective Data Vital Signs Vital Signs: Vital Signs Temp Pulse Resp BP Pulse Ox O2 Del Method O2 Flow Rate 04/09/25 09:45 88 167/89 H 04/09/25 09:30 83 101/90 04/09/25 09:15 85 180/85 H 04/09/25 09:00 86 163/90 H 04/09/25 08:45 83 160/88 H 04/09/25 08:30 83 171/90 H 04/09/25 08:08 86 157/81 H 04/09/25 08:00 16 97 Room Air 04/09/25 08:00 97.5 F L 86 14 157/81 H 96 04/09/25 06:47 99.0 F 88 20 144/65 H 100 04/09/25 04:00 88 04/09/25 02:50 98.8 F 98 20 146/74 H 100 04/09/25 00:00 97 04/08/25 22:24 97.9 F 81 20 186/82 H 100 04/08/25 20:00 98 20 100 Room Air 04/08/25 19:50 98.1 F 82 16 191/88 H 04/08/25 19:39 73 186/96 H 04/08/25 19:30 71 189/96 H 04/08/25 19:15 71 194/97 H 04/08/25 19:00 91 181/96 H 04/08/25 18:45 71 184/88 H 04/08/25 18:30 69 198/91 H 04/08/25 18:15 69 201/97 H 04/08/25 18:00 70 184/70 H 04/08/25 17:45 73 200/93 H 04/08/25 17:31 75 194/100 H 04/08/25 17:22 97.9 F 81 16 197/97 H 04/08/25 16:50 71 14 172/77 H 97 Room Air 04/08/25 16:35 71 12 181/85 H 96 Room Air 04/08/25 16:20 71 14 182/85 H 100 Room Air 04/08/25 16:05 77 12 174/80 H 100 Room Air 04/08/25 15:50 74 12 154/78 H 100 Simple Face Mask 8 04/08/25 15:40 78 12 99 Simple Face Mask 8 04/08/25 15:37 97.1 F L 72 15 165/74 H 100 Simple Face Mask 6 04/08/25 12:55 98.1 F 80 16 155/78 H 100 Room Air Intake/Output Intake/Output: Intake & Output 04/06/25 04/07/25 04/08/25 04/09/25 23:59 23:59 23:59 23:59 Intake Total 1020 1520 450 300 Output Total 400 700 0 Balance 1020 1120 -250 300 Meds/Results Medications: Active Medications Generic Name Dose Route Start Last Admin Trade Name Freq PRN Reason Stop Dose Admin Acetaminophen 650 mg 04/03/25 16:59 04/06/25 09:07 Acetaminophen 325 Mg Tablet PO 650 mg Q4H PRN Administration Mild Pain (1-3) or Fever Hydrocodone Bitart/Acetaminophen 1 tab 04/03/25 16:59 Hydrocodone/Acetaminophen (*Crx) 5-325 Mg Tablet PO Q4H PRN Pain Rated 4-6 Aspirin 81 mg 04/05/25 09:00 04/09/25 11:40 Aspirin 81 Mg Enteric Tablet PO Not Given QAM [facility] Atorvastatin Calcium 40 mg 04/05/25 09:00 04/09/25 11:22 Atorvastatin 40 Mg Tablet PO 40 mg DAILY RAVI Administration Carvedilol 12.5 mg 04/03/25 21:00 04/09/25 11:22 Carvedilol 12.5 Mg Tablet PO 12.5 mg Q12HR RAVI Administration Cinacalcet 30 mg 04/06/25 17:00 04/08/25 16:49 Cinacalcet 30 Mg Tablet PO Not Given Q24H RAVI Clopidogrel Bisulfate 75 mg 04/05/25 09:00 04/09/25 11:40 Clopidogrel Bisulfate 75 Mg Tablet PO Not Given QAM RAVI Docusate Sodium 100 mg 04/06/25 21:00 04/09/25 11:23 Docusate Sodium 100 Mg Capsule PO 100 mg Q12HR RAVI Administration Epoetin Isac-epbx 10,000 units 04/09/25 18:18 04/09/25 09:52 Epoetin Isac-Epbx 10,000 Units/Ml Vial IV PUSH 04/09/25 18:19 10,000 units ONCE ONE Administration Ergocalciferol 1,250 mcg 04/05/25 09:40 04/05/25 10:18 Ergocalciferol (Vitamin D2) 1,250 Mcg (50,000 Units) Capsule PO 1,250 mcg Fr@0900 RAVI Administration Heparin Sodium (Porcine) 5,000 units 04/09/25 21:00 Heparin Sodium 5,000 Units/Ml Vial SUB-Q Q12HR RAVI Hydralazine HCl 10 mg 04/03/25 17:04 04/08/25 21:07 Hydralazine Hcl 20 Mg/Ml Vial IV PUSH 10 mg Q8H PRN Administration Blood Pressure - High Albumin Human 50 mls @ 999 mls/hr 04/09/25 06:15 Albutein IVPB 05/09/25 06:14 Q10M PRN HYPOTENSION Lisinopril 20 mg 04/09/25 09:00 04/09/25 11:23 Lisinopril 20 Mg Tablet PO 20 mg QAM RAVI Administration Ondansetron HCl 4 mg 04/03/25 16:59 04/06/25 09:16 Ondansetron Inj 4 Mg/2 Ml Vial IV PUSH 4 mg Q4H PRN Administration Nausea Pantoprazole Sodium 20 mg 04/06/25 10:35 04/09/25 11:22 Pantoprazole Sod Sesquihydrate 20 Mg Tab PO 20 mg QAM RAVI Administration Polyethylene Glycol 17 gm 04/06/25 09:25 04/09/25 11:21 Polyethylene Glycol 3350 17 Gm Powd.Pack PO 17 gm QAM RAVI Administration Sodium Bicarbonate 1,300 mg 04/03/25 18:50 04/09/25 11:24 Sodium Bicarbonate Tab 650 Mg Tablet PO 1,300 mg BIDPC RAVI Administration Trazodone HCl 50 mg 04/04/25 01:38 04/08/25 21:03 Trazodone Hcl 50 Mg Tablet PO 50 mg HS PRN Administration Insomnia Venlafaxine HCl 150 mg 04/04/25 09:00 04/09/25 11:22 Venlafaxine Hcl Xr 75 Mg Cap.Er.24h PO 150 mg DAILY RAVI Administration Radiology Results: ITS Impressions Head CT 04/03/25 13:41 IMPRESSION: 1. No fracture or acute intracranial process. 2. Moderate-sized region of encephalomalacia in the right parieto-occipital region consistent with sequela of old infarct. 3. Moderate scattered nonspecific white matter hypoattenuation consistent with chronic small vessel ischemic disease. 4. Interval development of a salt and pepper appearance to the skull typical of hyperparathyroidism or renal osteodystrophy. Renal Ultrasound 04/03/25 20:52 IMPRESSION: No hydronephrosis or renal calculi. Findings suggesting medical renal disease. Brain MRI 04/04/25 11:59 IMPRESSION: 1. Small acute infarcts at the right thalamus and in the right parieto-occipital region along the margins of a small region of encephalomalacia consistent with a prior, now chronic infarct. 2. Couple additional small old lacunar infarcts in the left frontal lobe white matter. 3. Moderate diffuse periventricular predominant nonspecific white matter T2 hyperintensity consistent with chronic small vessel ischemic disease. 4. Decreased T1 fat signal throughout the diploic space of the calvarium with corresponding solid and pepper appearance to the calvarium on prior CT most suggestive of sequela of hyperparathyroidism or renal osteodystrophy. ADDENDUM: 04/05/25 1324 ADDENDUM: Note there is an additional small region of restricted diffusion consistent with acute infarct in the anterior left frontal lobe. Carotid Doppler Study 04/05/25 10:07 IMPRESSION: 1. No significant stenosis. 2. Antegrade flow demonstrated within both vertebral arteries. Brain MRA 04/05/25 13:04 IMPRESSION: 1. Moderate stenosis at the intracranial right vertebral artery and diminutive distal left vertebral artery and basilar artery, bladder to which could be developmental with majority vascular flow to the bilateral posterior cerebral arteries supplied via a significantly larger caliber patent bilateral posterior commuting arteries. 2. Small region of flow to reperfusion associated with acute infarcts in the left frontal lobe, right thalamus and right parieto-occipital region. Central Venous Line 04/08/25 16:00 IMPRESSION: 1. Fluoroscopy utilized during placement of a likely tunneled right internal jugular central venous catheter with distal tip at the right atrium. See procedure note for further detail. Chest X-Ray 04/08/25 16:02 IMPRESSION: 1. Likely tunneled right internal jugular central venous catheter with distal tip in the right atrium. 2. Bandlike opacity medial left lower lung zone and favor atelectasis over pneumonia. Labs Labs: Laboratory Tests 04/09/25 05:13 04/09/25 05:13 Calcium 9.2 Magnesium 2.0 Total Bilirubin 0.4 AST 20 ALT 8 Alkaline Phosphatase 190 H Total Protein 5.7 L Albumin 2.9 L
[2025-04-09] MEDS: EPOETIN ALFA-EPBX 10,000 UNITS/ML VIAL 10000 UNITS IV PUSH (09:52)
[2025-04-09] MEDS: SODIUM CHLORIDE 0.9% IV 1,000 ML 999 ML IV CONT (09:54)
--- NOTE | 2025-04-09 11:10 | PC.NURSE ---
Returned from dialysis via bed.
[2025-04-09] MEDS: VENLAFAXINE HCL XR 75 MG CAP.ER.24H 150 MG PO (11:22)
[2025-04-09] MEDS: PANTOPRAZOLE SOD SESQUIHYDRATE 20 MG TAB PO (11:22)
[2025-04-09] MEDS: ATORVASTATIN 40 MG TABLET PO (11:22)
[2025-04-09] MEDS: DOCUSATE SODIUM 100 MG CAPSULE PO ×2 (11:23→21:32)
[2025-04-09] MEDS: SODIUM BICARBONATE TAB 650 MG TABLET 1300 MG PO ×2 (11:24→17:13)
[2025-04-09 11:43] LABS: Vitamin B6. 9.5 ng/mL (2.1-21.7)
[2025-04-09] MEDS: CINACALCET 30 MG TABLET PO (16:40)
[2025-04-10] VITALS (24 sets, daily range): BP systolic 112–145; BP diastolic 52–72; PULSE 78–94; RESP 14–18; TEMP 36–37.2; O2SAT 100
[2025-04-10 07:43] LABS: Hematocrit 26.8 % (37.0-47.0); Hemoglobin 7.8 g/dL (12.0-15.0); Mean Corpuscular HGB Conc 29.1 g/dl (32-36); Mean Corpuscular Hemoglobin 29.3 pg (26-34); Mean Corpuscular Volume 100.8 fl (80-100); Platelet Count Result 198 k/mm3 (150-375); Red Blood Count 2.66 M/mm3 (4.2-5.4); White Blood Count 8.0 K/mm3 (4.5-10.0)
[2025-04-10 08:05] LABS: Albumin Level 2.9 g/dL (3.5-5.1); Anion Gap 6 mmol/L (4-12); Blood Urea Nitrogen 22 mg/dL (7-17); Calcium 9.4 mg/dL (8.4-10.2); Carbon Dioxide 27 mmol/L (22-30); Chloride 100 mmol/L (98-107); Estimated CRCL calculation 13 ml/min; Estimated Glomerular Filt Rate 10; Glucose 96 mg/dL (65-110); Potassium 3.7 mmol/L (3.4-5.0); Sodium 133 mmol/L (137-145)
[2025-04-10] MEDS: SODIUM CHLORIDE 0.9% IV 1,000 ML 999 ML IV CONT (08:12)
[2025-04-10] MEDS: EPOETIN ALFA-EPBX 10,000 UNITS/ML VIAL 10000 UNITS IV PUSH (08:12)
--- NOTE | 2025-04-10 10:13 | PCOTNOTE ---
Patient out of the room at this time. Patient is in dialysis.
--- NOTE | 2025-04-10 10:14 | P.PNNP_ITS ---
Progress Note: A&P Assessment and Plan (1) End stage renal disease: Code(s): N18.6 - End stage renal disease Status: Chronic Assessment and Plan: * due progression of disease * was scheduled for AV access placement in anticipation of [employer]/hemodialysis but this never occurred due to insurance issues * she also did not follow-up with Dr. Colmenares after her June 2024 appointment... 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 several years ago * testing noted on this admission: * renal ultrasound c/w medical renal disease * urine eosinophils negative * nephrotic range proteinuria * urine electrolytes non-prerenal * s/p tunneled HD catheter placement (04/08) * HD day before yesterday (04/08) * HD yesterday (04/09) * HD today (04/10) * outpatient dialysis schedule/unit being finalized (2) Acute cerebrovascular accident (CVA): Code(s): I63.9 - Cerebral infarction, unspecified Status: Acute Assessment and Plan: * etiology of falls(?) * as noted by MRI/MRA brain: * small acute infarcts at the right thalamus and in the right parieto- occipital region along the margins of a small region of encephalomalacia consistent with a prior, now chronic infarct * couple additional small old lacunar infarcts in the left frontal lobe white matter * moderate stenosis at the intracranial right vertebral artery and diminutive distal left vertebral artery and basilar artery, bladder to which could be developmental with majority vascular flow to the bilateral posterior cerebral arteries supplied via a significantly larger caliber patent bilateral posterior commuting arteries * small region of flow to reperfusion associated with acute infarcts in the left frontal lobe, right thalamus and right parieto-occipital region. * carotid dopplers: No significant stenosis. Antegrade flow demonstrated within both vertebral arteries. * head CT: No fracture or acute intracranial process. * on statin/plavix/ASA * Neurology following (3) Fall: Qualifiers: Encounter type: initial encounter Qualified Code(s): W19.XXXA - Unspecified fall, initial encounter Code(s): W19.XXXA - Unspecified fall, initial encounter Status: Acute Assessment and Plan: * frequent falls x 1 week prior to admission * CT of head noted: * no fracture or acute intracranial process * moderate-sized region of encephalomalacia in the right parieto-occipital region consistent with sequela of old infarct * moderate scattered nonspecific white matter hypoattenuation consistent with chronic small vessel ischemic disease * interval development of a salt and pepper appearance to the skull typical of hyperparathyroidism or renal osteodystrophy * MRI of brain noted as well * fall precautions * ongoing PT/OT (4) Hypertension: Qualifiers: Hypertension type: secondary to other renal disorders Qualified Code(s): I15.1 - Hypertension secondary to other renal disorders; N28.89 - Other specified disorders of kidney and ureter Code(s): I10 - Essential (primary) hypertension Status: Chronic Assessment and Plan: * poor control on admission * better control at this time * lisinopril added * follow trend of hemodynamics (5) Metabolic acidosis: Code(s): E87.20 - Acidosis, unspecified Status: Acute Assessment and Plan: * secondary to advanced CKD * CO2 improving with oral sodium bicarbonate therapy * dialysis should continue to correct/stabilize * d/c oral sodium bicarbonate with dialysis initiation (6) Anemia: Qualifiers: Anemia type: due to chronic kidney disease Chronic kidney disease stage: stage 5 (GFR < 15), not on chronic dialysis Qualified Code(s): N18.5 - Chronic kidney disease, stage 5; D63.1 - Anemia in chronic kidney disease Code(s): D64.9 - Anemia, unspecified Status: Acute Assessment and Plan: * likely related advanced CKD * anemia studies with adequate iron stores * Epogen with dialysis * follow trend of H/H (7) Hypercalcemia: Code(s): E83.52 - Hypercalcemia Status: Acute Assessment and Plan: * elevated on admission but better currently * extensive outpatient work-up reviewed: * 24 hour urine immunofixation with assymetrical beta and gamma regions * 24hr urine calcium + creatinine suggestive of primary or tertiary hyperparathyroidism * Vitamin A, THOM level, and PTHrp okay * Nuc Med Parathyroid scan negative * suspect a combination of primary mixed with secondary hyperparathyroidism * given elevated PTH and associated renal osteodystrophy, started on sensipar and Vitamin D * follow trend (8) Diet-controlled type 2 diabetes mellitus: Code(s): E11.9 - Type 2 diabetes mellitus without complications Status: Chronic Assessment and Plan: * follow accu-cheks * not currently on any diabetic medications Will continue to follow. L Subjective Date/time seen: 04/10/25 10:14 Interval history: Follow-up for end stage renal disease on hemodialysis. Tolerating dialysis at the time of my visit (seen on HD at 10:05AM) -- tolerated dialysis yesterday as well as the day before without any issues or problems; no apparent distress noted when seen; no other acute complaints voiced. Exam 2 Narrative: General: elderly but WD/WN female in NAD Heart: normal S1 and S2; no rub Lungs: clear to auscultation Abdomen: soft, nontender, nondistended, positive bowel sounds Extremities: no cyanosis or clubbing; no edema Skin: no rash Objective Data Vital Signs Vital Signs: Vital Signs Temp Pulse Resp BP Pulse Ox O2 Del Method 04/10/25 10:00 88 139/72 04/10/25 09:45 89 144/67 H 04/10/25 09:30 84 127/72 04/10/25 09:15 85 132/66 04/10/25 09:00 80 132/68 04/10/25 08:45 80 140/60 04/10/25 08:30 86 145/70 H 04/10/25 08:15 79 140/68 04/10/25 08:00 83 04/10/25 08:00 Room Air 04/10/25 08:00 78 126/63 04/10/25 07:48 82 125/64 04/10/25 07:40 99.0 F 85 14 122/63 100 04/10/25 04:00 79 04/10/25 00:00 84 04/09/25 21:20 97.3 F L 88 16 111/56 L 97 04/09/25 20:00 89 04/09/25 20:00 Room Air Intake/Output Intake/Output: Intake & Output 04/07/25 04/08/25 04/09/25 04/10/25 23:59 23:59 23:59 23:59 Intake Total 1520 450 660 0 Output Total 400 700 200 500 Balance 1120 -250 460 -500 Meds/Results Medications: Active Medications Generic Name Dose Route Start Last Admin Trade Name Freq PRN Reason Stop Dose Admin Acetaminophen 650 mg 04/03/25 16:59 04/06/25 09:07 Acetaminophen 325 Mg Tablet PO 650 mg Q4H PRN Administration Mild Pain (1-3) or Fever Hydrocodone Bitart/Acetaminophen 1 tab 04/03/25 16:59 Hydrocodone/Acetaminophen (*Crx) 5-325 Mg Tablet PO Q4H PRN Pain Rated 4-6 Aspirin 81 mg 04/05/25 09:00 04/10/25 11:38 Aspirin 81 Mg Enteric Tablet PO 81 mg QAM RAVI Administration Atorvastatin Calcium 40 mg 04/05/25 09:00 04/10/25 11:38 Atorvastatin 40 Mg Tablet PO 40 mg DAILY RAVI Administration Carvedilol 12.5 mg 04/03/25 21:00 04/10/25 11:38 Carvedilol 12.5 Mg Tablet PO 12.5 mg Q12HR RAVI Administration Cinacalcet 30 mg 04/06/25 17:00 04/09/25 16:40 Cinacalcet 30 Mg Tablet PO 30 mg Q24H RAVI Administration Clopidogrel Bisulfate 75 mg 04/05/25 09:00 04/10/25 11:38 Clopidogrel Bisulfate 75 Mg Tablet PO 75 mg QAM [facility] Administration Docusate Sodium 100 mg 04/06/25 21:00 04/10/25 11:39 Docusate Sodium 100 Mg Capsule PO 100 mg Q12HR RAVI Administration Epoetin Isac-epbx 10,000 units 04/10/25 18:13 04/10/25 08:12 Epoetin Isac-Epbx 10,000 Units/Ml Vial IV PUSH 04/10/25 18:14 10,000 units ONCE ONE Administration Ergocalciferol 1,250 mcg 04/05/25 09:40 04/05/25 10:18 Ergocalciferol (Vitamin D2) 1,250 Mcg (50,000 Units) Capsule PO 1,250 mcg Fr@0900 [facility] Administration Heparin Sodium (Porcine) 5,000 units 04/09/25 21:00 04/10/25 11:48 Heparin Sodium 5,000 Units/Ml Vial SUB-Q Not Given Q12HR [facility] Hydralazine HCl 10 mg 04/03/25 17:04 04/08/25 21:07 Hydralazine Hcl 20 Mg/Ml Vial IV PUSH 10 mg Q8H PRN Administration Blood Pressure - High Albumin Human 50 mls @ 999 mls/hr 04/09/25 06:15 Albutein IVPB 05/09/25 06:14 Q10M PRN HYPOTENSION Lisinopril 20 mg 04/09/25 09:00 04/10/25 11:38 Lisinopril 20 Mg Tablet PO 20 mg QAM RAVI Administration Ondansetron HCl 4 mg 04/03/25 16:59 04/06/25 09:16 Ondansetron Inj 4 Mg/2 Ml Vial IV PUSH 4 mg Q4H PRN Administration Nausea Pantoprazole Sodium 20 mg 04/06/25 10:35 04/10/25 11:39 Pantoprazole Sod Sesquihydrate 20 Mg Tab PO 20 mg QAM [facility]AVI Administration Polyethylene Glycol 17 gm 04/06/25 09:25 04/10/25 11:38 Polyethylene Glycol 3350 17 Gm Powd.Pack PO 17 gm QAM RAVI Administration Sodium Bicarbonate 1,300 mg 04/03/25 18:50 04/10/25 11:38 Sodium Bicarbonate Tab 650 Mg Tablet PO 1,300 mg BIDPC RAVI Administration Trazodone HCl 50 mg 04/04/25 01:38 04/09/25 21:32 Trazodone Hcl 50 Mg Tablet PO 50 mg HS PRN Administration Insomnia Venlafaxine HCl 150 mg 04/04/25 09:00 04/10/25 11:38 Venlafaxine Hcl Xr 75 Mg Cap.Er.24h PO 150 mg DAILY RAVI Administration Radiology Results: ITS Impressions Head CT 04/03/25 13:41 IMPRESSION: 1. No fracture or acute intracranial process. 2. Moderate-sized region of encephalomalacia in the right parieto-occipital region consistent with sequela of old infarct. 3. Moderate scattered nonspecific white matter hypoattenuation consistent with chronic small vessel ischemic disease. 4. Interval development of a salt and pepper appearance to the skull typical of hyperparathyroidism or renal osteodystrophy. Renal Ultrasound 04/03/25 20:52 IMPRESSION: No hydronephrosis or renal calculi. Findings suggesting medical renal disease. Brain MRI 04/04/25 11:59 IMPRESSION: 1. Small acute infarcts at the right thalamus and in the right parieto-occipital region along the margins of a small region of encephalomalacia consistent with a prior, now chronic infarct. 2. Couple additional small old lacunar infarcts in the left frontal lobe white matter. 3. Moderate diffuse periventricular predominant nonspecific white matter T2 hyperintensity consistent with chronic small vessel ischemic disease. 4. Decreased T1 fat signal throughout the diploic space of the calvarium with corresponding solid and pepper appearance to the calvarium on prior CT most suggestive of sequela of hyperparathyroidism or renal osteodystrophy. ADDENDUM: 04/05/25 1324 ADDENDUM: Note there is an additional small region of restricted diffusion consistent with acute infarct in the anterior left frontal lobe. Carotid Doppler Study 04/05/25 10:07 IMPRESSION: 1. No significant stenosis. 2. Antegrade flow demonstrated within both vertebral arteries. Brain MRA 04/05/25 13:04 IMPRESSION: 1. Moderate stenosis at the intracranial right vertebral artery and diminutive distal left vertebral artery and basilar artery, bladder to which could be developmental with majority vascular flow to the bilateral posterior cerebral arteries supplied via a significantly larger caliber patent bilateral posterior commuting arteries. 2. Small region of flow to reperfusion associated with acute infarcts in the left frontal lobe, right thalamus and right parieto-occipital region. Central Venous Line 04/08/25 16:00 IMPRESSION: 1. Fluoroscopy utilized during placement of a likely tunneled right internal jugular central venous catheter with distal tip at the right atrium. See procedure note for further detail. Chest X-Ray 04/08/25 16:02 IMPRESSION: 1. Likely tunneled right internal jugular central venous catheter with distal tip in the right atrium. 2. Bandlike opacity medial left lower lung zone and favor atelectasis over pneumonia. Labs Labs: Laboratory Tests 04/10/25 07:36 04/10/25 07:36 Calcium 9.4 Phosphorus 4.0 Albumin 2.9 L
[2025-04-10] MEDS: SODIUM BICARBONATE TAB 650 MG TABLET 1300 MG PO (11:38)
[2025-04-10] MEDS: VENLAFAXINE HCL XR 75 MG CAP.ER.24H 150 MG PO (11:38)
[2025-04-10] MEDS: ASPIRIN 81 MG ENTERIC TABLET PO (11:38)
[2025-04-10] MEDS: ATORVASTATIN 40 MG TABLET PO (11:38)
[2025-04-10] MEDS: CLOPIDOGREL BISULFATE 75 MG TABLET PO (11:38)
[2025-04-10] MEDS: DOCUSATE SODIUM 100 MG CAPSULE PO ×2 (11:39→21:06)
[2025-04-10] MEDS: PANTOPRAZOLE SOD SESQUIHYDRATE 20 MG TAB PO (11:39)
--- NOTE | 2025-04-10 12:09 | P.PNIM_ITS ---
Progress Note: A&P Assessment and Plan (1) Chronic kidney disease, stage 5: Code(s): N18.5 - Chronic kidney disease, stage 5 Status: Acute Assessment and Plan: - previous history of SAEID/rhabdomyolysis resulting in need for temporary dialysis. Per last Nephrology note in June of 2024, patient had been off dialysis. - creatinine 8.7, BUN 39, GFR 5 on admission. Previously 5.0, BUN 35, GFR 9 in June of 2024. - monitor electrolyte - renal diet - continue home sodium bicarbonate p.o. 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 Removed prior to dialysis and bleeding has subsided. H/H remains stable. Continue to monitor. Surgery aware. Patient had dialysis today. Tolerated well. will get another session on Tuesday -insurance coverage start on Tuesday for dialysis working with care coordination (2) Acute right arterial ischemic stroke, MCA (middle cerebral artery): Code(s): I63.511 - Cerebral infarction due to unspecified occlusion or stenosis of right middle cerebral artery Status: Acute Assessment and Plan: - Lipid panel: elevated - Carotid dopplers: No significant stenosis. Antegrade flow demonstrated within both vertebral arteries. - Head CT: No fracture or acute intracranial process. - MRI: Small acute infarcts at the right thalamus and in the right parieto- occipital region along the margins of a small region of encephalomalacia consistent with a prior, now chronic infarct. Couple additional small old lacunar infarcts in the left frontal lobe white matter. - MRA: Moderate stenosis at the intracranial right vertebral artery and diminutive distal left vertebral artery and basilar artery, bladder to which could be developmental with majority vascular flow to the bilateral posterior cerebral arteries supplied via a significantly larger caliber patent bilateral posterior commuting arteries. Small region of flow to reperfusion associated with acute infarcts in the left frontal lobe, right thalamus and right parieto- occipital region. - Echo: LVEF 55-60% with grade I diastolic dysfunction - High-intensity statin: Atorvastatin 40 mg daily - Dual antiplatelet: Plavix 75 mg and aspirin 81 mg daily - Monitor CBC, CMP, magnesium, troponin, and lipid profile - Monitor blood pressure, allow for permissive hypertension. - Telemetry monitoring - Monitor blood glucose - PT/OT eval and treat - Neurology consulted neurology was consulted neurologically stable so far (3) Fall: Qualifiers: Encounter type: initial encounter Qualified Code(s): W19.XXXA - Unspecified fall, initial encounter Code(s): W19.XXXA - Unspecified fall, initial encounter Status: Acute Assessment and Plan: - reported frequent falls for the past week - new CVA see plan above. - Shoulder XR unremarkable - UA and CXR negative for findings for infection - PT/OT evaluation for rehab services, recommending SNF. Care coordination following. - fall precaution (4) Anemia: Qualifiers: Anemia type: due to chronic kidney disease Chronic kidney disease stage: stage 5 (GFR < 15), not on chronic dialysis Qualified Code(s): N18.5 - Chronic kidney disease, stage 5; D63.1 - Anemia in chronic kidney disease Code(s): D64.9 - Anemia, unspecified Status: Acute Assessment and Plan: - H/H remains stable - Hx of CKD stage 4, anemia in setting of chronic disease - transfuse if <7 - trend CBC Per RN patient developed bleeding overnight at the catheter site requiring pressure dressing. Removed prior to dialysis and bleeding has subsided. H/H remains stable. Continue to monitor. Surgery aware. (5) Hypertension: Qualifiers: Hypertension type: secondary to other renal disorders Qualified Code(s): I15.1 - Hypertension secondary to other renal disorders; N28.89 - Other specified disorders of kidney and ureter Code(s): I10 - Essential (primary) hypertension Status: Chronic Assessment and Plan: - chronic, previously not well controlled. Arrived 205/102. - continue home medications: Carvedilol 12.5 mg BID and PRN hydralazine - blood pressures 141/65. Continue to monitor (6) Diet-controlled type 2 diabetes mellitus: Code(s): E11.9 - Type 2 diabetes mellitus without complications Status: Chronic Assessment and Plan: - not currently on any diabetic medications, diet controlled - A1c 4.6 Time Spent With Patient Time with patient: 25 - 35 minutes Subjective Date/time seen: 04/10/25 12:09 Interval history: 64 year old female with past medical history of CKD, SAEID requiring temporary dialysis, chronic anemia, type 2 DM, breast cancer s/p chemotherapy mastectomy, and hypertension presents to the hospital with frequent falls and generalized weakness. Patient is pleasant, in bed, just returned from dialysis. She has no complaints at this time denying any chest pain, shortness a breath, palpitations, nausea/vomiting, and abdominal pain. She tolerated dialysis well. Patient's H&H remains stable. Review of Systems Review of Systems: All systems reviewed & are unremarkable except as noted in HPI and below Exam Narrative: AF HR 87 RR 12 SpO2 100 BP 141/65 General: female in no acute respiratory distress who is nontoxic appearing, lying semi recumbent in bed. HEENT: Normocephalic. Atraumatic. Extraocular movement intact. Sclera clear and anicteric. No facial asymmetry. Chest: Lungs are clear to auscultation bilaterally. No wheezes or crackles. Dialysis catheter in place with clean/dry/intact dressing. CV: Heart was regular rate and rhythm. S1-S2. No murmurs, gallops, or rubs. Abd: Abdomen was soft. Nontender. Nondistended. Positive bowel sounds. Ext: No clubbing, cyanosis, or edema. DP pulses bilaterally. Neuro: Patient is alert and oriented x4. Strength is 5/5 in both upper and lower extremities. Speech is clear. Const: General: comfortable and no acute distress Other: , female, nontoxic appearance HENMT: Face/Nose/Sinus: Normal nares present Mouth: Yes moist mucous membranes Eyes: General: appearance normal, both eyes and all related structures Sclera: sclerae normal Pupils: Equal, round and reactive pupils present EOM: EOMs intact bilaterally Resp: Effort & Inspection: normal respiratory effort Auscultation: clear to auscultation bilaterally Cardio: Rate: regular rate Rhythm: regular rhythm Other: S1-S2 present without murmur, rub, ectopy GI: Other: Abdomen soft, nondistended, nontender. Normoactive bowel sounds in all quadrants. Skin: General skin exam: normal color and no rashes or lesions noted Wounds: no wounds Neuro: Cranial nerves: Yes Equal, round and reactive pupils present Speech: normal speech Motor exam (neuro): 5/5 motor strength present throughout Sensory Exam: normal sensation Other: A&O x4, no facial droop or dysarthria appreciated. No gaze palsy. Extrem: General: normal to inspection Psych: Mental Status: mental status grossly normal Affect: normal affect Other: Good insight and judgment, pleasant Objective Data Vital Signs Vital Signs: Vital Signs - 24 hr 04/09/25 14:00 04/09/25 14:47 04/09/25 16:05 Temperature 97.4 F L 97.4 F L Pulse Rate 87 87 82 Respiratory Rate 12 12 Blood Pressure 141/65 H 141/65 H Pulse Oximetry 100 100 Oxygen Delivery 04/09/25 20:00 04/09/25 20:00 04/09/25 21:20 Temperature 97.3 F L Pulse Rate 89 88 Respiratory Rate 16 Blood Pressure 111/56 L Pulse Oximetry 97 Oxygen Delivery Room Air 04/10/25 00:00 04/10/25 04:00 04/10/25 07:40 Temperature 99.0 F Pulse Rate 84 79 85 Respiratory Rate 14 Blood Pressure 122/63 Pulse Oximetry 100 Oxygen Delivery 04/10/25 07:48 04/10/25 08:00 04/10/25 08:15 Temperature Pulse Rate 82 78 79 Respiratory Rate Blood Pressure 125/64 126/63 140/68 Pulse Oximetry Oxygen Delivery 04/10/25 08:30 04/10/25 08:45 04/10/25 09:00 Temperature Pulse Rate 86 80 80 Respiratory Rate Blood Pressure 145/70 H 140/60 132/68 Pulse Oximetry Oxygen Delivery 04/10/25 09:15 04/10/25 09:30 04/10/25 09:45 Temperature Pulse Rate 85 84 89 Respiratory Rate Blood Pressure 132/66 127/72 144/67 H Pulse Oximetry Oxygen Delivery 04/10/25 10:00 04/10/25 10:18 04/10/25 10:34 Temperature Pulse Rate 88 88 82 Respiratory Rate Blood Pressure 139/72 141/53 H 141/52 H Pulse Oximetry Oxygen Delivery 04/10/25 10:49 04/10/25 11:00 04/10/25 11:38 Temperature 98.6 F Pulse Rate 87 85 89 Respiratory Rate 16 Blood Pressure 130/71 122/63 Pulse Oximetry 100 Oxygen Delivery Intake/Output Intake/Output: Intake & Output 04/07/25 04/08/25 04/09/25 04/10/25 23:59 23:59 23:59 23:59 Intake Total 1520 450 660 Output Total 400 700 200 500 Balance 1120 -250 460 -500 Meds/Results Medications: Active Medications Generic Name Dose Route Start Last Admin Trade Name Freq PRN Reason Stop Dose Admin Acetaminophen 650 mg 04/03/25 16:59 04/06/25 09:07 Acetaminophen 325 Mg Tablet PO 650 mg Q4H PRN Administration Mild Pain (1-3) or Fever Hydrocodone Bitart/Acetaminophen 1 tab 04/03/25 16:59 Hydrocodone/Acetaminophen (*Crx) 5-325 Mg Tablet PO Q4H PRN Pain Rated 4-6 Aspirin 81 mg 04/05/25 09:00 04/10/25 11:38 Aspirin 81 Mg Enteric Tablet PO 81 mg QAM RAVI Administration Atorvastatin Calcium 40 mg 04/05/25 09:00 04/10/25 11:38 Atorvastatin 40 Mg Tablet PO 40 mg DAILY RVAI Administration Carvedilol 12.5 mg 04/03/25 21:00 04/10/25 11:38 Carvedilol 12.5 Mg Tablet PO 12.5 mg Q12HR RAVI Administration Cinacalcet 30 mg 04/06/25 17:00 04/09/25 16:40 Cinacalcet 30 Mg Tablet PO 30 mg Q24H RAVI Administration Clopidogrel Bisulfate 75 mg 04/05/25 09:00 04/10/25 11:38 Clopidogrel Bisulfate 75 Mg Tablet PO 75 mg QAM RAVI Administration Docusate Sodium 100 mg 04/06/25 21:00 04/10/25 11:39 Docusate Sodium 100 Mg Capsule PO 100 mg Q12HR RAVI Administration Epoetin Isac-epbx 10,000 units 04/10/25 18:13 04/10/25 08:12 Epoetin Isac-Epbx 10,000 Units/Ml Vial IV PUSH 04/10/25 18:14 10,000 units ONCE ONE Administration Ergocalciferol 1,250 mcg 04/05/25 09:40 04/05/25 10:18 Ergocalciferol (Vitamin D2) 1,250 Mcg (50,000 Units) Capsule PO 1,250 mcg Fr@0900 RAVI Administration Heparin Sodium (Porcine) 5,000 units 04/09/25 21:00 04/10/25 11:48 Heparin Sodium 5,000 Units/Ml Vial SUB-Q Not Given Q12HR RAVI Hydralazine HCl 10 mg 04/03/25 17:04 04/08/25 21:07 Hydralazine Hcl 20 Mg/Ml Vial IV PUSH 10 mg Q8H PRN Administration Blood Pressure - High Albumin Human 50 mls @ 999 mls/hr 04/09/25 06:15 Albutein IVPB 05/09/25 06:14 Q10M PRN HYPOTENSION Lisinopril 20 mg 04/09/25 09:00 04/10/25 11:38 Lisinopril 20 Mg Tablet PO 20 mg QAM RAVI Administration Ondansetron HCl 4 mg 04/03/25 16:59 04/06/25 09:16 Ondansetron Inj 4 Mg/2 Ml Vial IV PUSH 4 mg Q4H PRN Administration Nausea Pantoprazole Sodium 20 mg 04/06/25 10:35 04/10/25 11:39 Pantoprazole Sod Sesquihydrate 20 Mg Tab PO 20 mg QAM RAVI Administration Polyethylene Glycol 17 gm 04/06/25 09:25 04/10/25 11:38 Polyethylene Glycol 3350 17 Gm Powd.Pack PO 17 gm QAM RAVI Administration Sodium Bicarbonate 1,300 mg 04/03/25 18:50 04/10/25 11:38 Sodium Bicarbonate Tab 650 Mg Tablet PO 1,300 mg BIDPC RAVI Administration Trazodone HCl 50 mg 04/04/25 01:38 04/09/25 21:32 Trazodone Hcl 50 Mg Tablet PO 50 mg HS PRN Administration Insomnia Venlafaxine HCl 150 mg 04/04/25 09:00 04/10/25 11:38 Venlafaxine Hcl Xr 75 Mg Cap.Er.24h PO 150 mg DAILY RAVI Administration Radiology Results: ITS Impressions Head CT 04/03/25 13:41 IMPRESSION: 1. No fracture or acute intracranial process. 2. Moderate-sized region of encephalomalacia in the right parieto-occipital region consistent with sequela of old infarct. 3. Moderate scattered nonspecific white matter hypoattenuation consistent with chronic small vessel ischemic disease. 4. Interval development of a salt and pepper appearance to the skull typical of hyperparathyroidism or renal osteodystrophy. Renal Ultrasound 04/03/25 20:52 IMPRESSION: No hydronephrosis or renal calculi. Findings suggesting medical renal disease. Brain MRI 04/04/25 11:59 IMPRESSION: 1. Small acute infarcts at the right thalamus and in the right parieto-occipital region along the margins of a small region of encephalomalacia consistent with a prior, now chronic infarct. 2. Couple additional small old lacunar infarcts in the left frontal lobe white matter. 3. Moderate diffuse periventricular predominant nonspecific white matter T2 hyperintensity consistent with chronic small vessel ischemic disease. 4. Decreased T1 fat signal throughout the diploic space of the calvarium with corresponding solid and pepper appearance to the calvarium on prior CT most suggestive of sequela of hyperparathyroidism or renal osteodystrophy. ADDENDUM: 04/05/25 1324 ADDENDUM: Note there is an additional small region of restricted diffusion consistent with acute infarct in the anterior left frontal lobe. Carotid Doppler Study 04/05/25 10:07 IMPRESSION: 1. No significant stenosis. 2. Antegrade flow demonstrated within both vertebral arteries. Brain MRA 04/05/25 13:04 IMPRESSION: 1. Moderate stenosis at the intracranial right vertebral artery and diminutive distal left vertebral artery and basilar artery, bladder to which could be developmental with majority vascular flow to the bilateral posterior cerebral arteries supplied via a significantly larger caliber patent bilateral posterior commuting arteries. 2. Small region of flow to reperfusion associated with acute infarcts in the left frontal lobe, right thalamus and right parieto-occipital region. Central Venous Line 04/08/25 16:00 IMPRESSION: 1. Fluoroscopy utilized during placement of a likely tunneled right internal jugular central venous catheter with distal tip at the right atrium. See procedure note for further detail. Chest X-Ray 04/08/25 16:02 IMPRESSION: 1. Likely tunneled right internal jugular central venous catheter with distal tip in the right atrium. 2. Bandlike opacity medial left lower lung zone and favor atelectasis over pneumonia. Labs Labs: Laboratory Results - last 24 hr 04/10/25 07:36 WBC 8.0 RBC 2.66 L Hgb 7.8 L Hct 26.8 L MCV 100.8 H D MCH 29.3 MCHC 29.1 L RDW 14.6 H Plt Count 198 MPV 10.9 H Sodium 133 L Potassium 3.7 Chloride 100 Carbon Dioxide 27 Anion Gap 6 BUN 22 H D Creatinine 4.49 H Estim Creat Clear Calc 13 Estimated GFR 10 L Glucose 96 Calcium 9.4 Phosphorus 4.0 Albumin 2.9 L Quality VTE Prophylaxis VTE prophylaxis: pharmacologic ordered
--- NOTE | 2025-04-10 13:04 | PCNWS ---
Weekly nutritional screen. Patient is tolerating current renal diet with varied intake, 10-80%. No weight loss reported. No nutritional needs at this time. Awaiting placement.
--- NOTE | 2025-04-10 15:33 | PCCCNOTE ---
1533-Adry Smith called and gained an update on the requested information of where the pt was to be discharged-[facility] and no orders noted to release from IP status today. CM updated.-jesus
[2025-04-10] MEDS: CINACALCET 30 MG TABLET PO (17:29)
[2025-04-11] VITALS (8 sets, daily range): BP systolic 136–151; BP diastolic 57–78; PULSE 81–99; RESP 12–20; TEMP 36.5–36.8; O2SAT 98–100
[2025-04-11] MEDS: CLOPIDOGREL BISULFATE 75 MG TABLET PO (08:18)
[2025-04-11] MEDS: DOCUSATE SODIUM 100 MG CAPSULE PO ×2 (08:18→20:42)
[2025-04-11] MEDS: ATORVASTATIN 40 MG TABLET PO (08:18)
[2025-04-11] MEDS: ASPIRIN 81 MG ENTERIC TABLET PO (08:19)
[2025-04-11] MEDS: VENLAFAXINE HCL XR 75 MG CAP.ER.24H 150 MG PO (08:19)
[2025-04-11] MEDS: PANTOPRAZOLE SOD SESQUIHYDRATE 20 MG TAB PO (08:19)
[2025-04-11 08:27] LABS: Hematocrit 25.5 % (37.0-47.0); Hemoglobin 7.6 g/dL (12.0-15.0); Mean Corpuscular HGB Conc 29.8 g/dl (32-36); Mean Corpuscular Hemoglobin 29.0 pg (26-34); Mean Corpuscular Volume 97.3 fl (80-100); Platelet Count Result 213 k/mm3 (150-375); Red Blood Count 2.62 M/mm3 (4.2-5.4); White Blood Count 7.1 K/mm3 (4.5-10.0)
[2025-04-11 08:42] LABS: Alanine Aminotransferase 8 U/L (6-35); Albumin Level 3.0 g/dL (3.5-5.1); Alkaline Phosphatase 176 U/L (38-126); Anion Gap 5 mmol/L (4-12); Aspartate Amino Transferase 22 U/L (14-36); Bilirubin,Total 0.5 mg/dL (0.2-1.3); Blood Urea Nitrogen 13 mg/dL (7-17); Calcium 9.2 mg/dL (8.4-10.2); Carbon Dioxide 30 mmol/L (22-30); Chloride 101 mmol/L (98-107); Estimated CRCL calculation 13 ml/min; Estimated Glomerular Filt Rate 11; Glucose 75 mg/dL (65-110); Potassium 3.5 mmol/L (3.4-5.0); Sodium 136 mmol/L (137-145); Total Protein 5.7 g/dL (6.3-8.2)
--- NOTE | 2025-04-11 11:40 | P.PNNP_ITS ---
Progress Note: A&P Assessment and Plan (1) End stage renal disease: Code(s): N18.6 - End stage renal disease Status: Chronic Assessment and Plan: * due progression of disease * was scheduled for AV access placement in anticipation of CADDY/hemodialysis but this never occurred due to insurance issues * she also did not follow-up with Dr. Colmenares after her June 2024 appointment... 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 several years ago * testing noted on this admission: * renal ultrasound c/w medical renal disease * urine eosinophils negative * nephrotic range proteinuria * urine electrolytes non-prerenal * s/p tunneled HD catheter placement (04/08) * HD 04/08, 04/09, and 04/10 * plan next HD session of 04/12 * outpatient dialysis schedule/unit being finalized (2) Acute cerebrovascular accident (CVA): Code(s): I63.9 - Cerebral infarction, unspecified Status: Acute Assessment and Plan: * etiology of falls(?) * as noted by MRI/MRA brain: * small acute infarcts at the right thalamus and in the right parieto- occipital region along the margins of a small region of encephalomalacia consistent with a prior, now chronic infarct * couple additional small old lacunar infarcts in the left frontal lobe white matter * moderate stenosis at the intracranial right vertebral artery and diminutive distal left vertebral artery and basilar artery, bladder to which could be developmental with majority vascular flow to the bilateral posterior cerebral arteries supplied via a significantly larger caliber patent bilateral posterior commuting arteries * small region of flow to reperfusion associated with acute infarcts in the left frontal lobe, right thalamus and right parieto-occipital region. * carotid dopplers: No significant stenosis. Antegrade flow demonstrated within both vertebral arteries. * head CT: No fracture or acute intracranial process. * on statin/plavix/ASA * Neurology following (3) Fall: Qualifiers: Encounter type: initial encounter Qualified Code(s): W19.XXXA - Unspecified fall, initial encounter Code(s): W19.XXXA - Unspecified fall, initial encounter Status: Acute Assessment and Plan: * frequent falls x 1 week prior to admission * CT of head noted: * no fracture or acute intracranial process * moderate-sized region of encephalomalacia in the right parieto-occipital region consistent with sequela of old infarct * moderate scattered nonspecific white matter hypoattenuation consistent with chronic small vessel ischemic disease * interval development of a salt and pepper appearance to the skull typical of hyperparathyroidism or renal osteodystrophy * MRI of brain noted as well * fall precautions * ongoing PT/OT (4) Hypertension: Qualifiers: Hypertension type: secondary to other renal disorders Qualified Code(s): I15.1 - Hypertension secondary to other renal disorders; N28.89 - Other specified disorders of kidney and ureter Code(s): I10 - Essential (primary) hypertension Status: Chronic Assessment and Plan: * poor control on admission * better control at this time * lisinopril added * follow trend of hemodynamics (5) Metabolic acidosis: Code(s): E87.20 - Acidosis, unspecified Status: Acute Assessment and Plan: * secondary to advanced CKD * CO2 improving with oral sodium bicarbonate therapy * dialysis should continue to correct/stabilize * d/c oral sodium bicarbonate with dialysis initiation (6) Anemia: Qualifiers: Anemia type: due to chronic kidney disease Chronic kidney disease stage: stage 5 (GFR < 15), not on chronic dialysis Qualified Code(s): N18.5 - Chronic kidney disease, stage 5; D63.1 - Anemia in chronic kidney disease Code(s): D64.9 - Anemia, unspecified Status: Acute Assessment and Plan: * likely related advanced CKD * anemia studies with adequate iron stores * Epogen with dialysis * follow trend of H/H (7) Hypercalcemia: Code(s): E83.52 - Hypercalcemia Status: Acute Assessment and Plan: * elevated on admission but better currently * extensive outpatient work-up reviewed: * 24 hour urine immunofixation with assymetrical beta and gamma regions * 24hr urine calcium + creatinine suggestive of primary or tertiary hyperparathyroidism * Vitamin A, THOM level, and PTHrp okay * Nuc Med Parathyroid scan negative * suspect a combination of primary mixed with secondary hyperparathyroidism * given elevated PTH and associated renal osteodystrophy, started on sensipar and Vitamin D * follow trend (8) Diet-controlled type 2 diabetes mellitus: Code(s): E11.9 - Type 2 diabetes mellitus without complications Status: Chronic Assessment and Plan: * follow accu-cheks * not currently on any diabetic medications Will continue to follow. L Subjective Date/time seen: 04/11/25 11:40 Interval history: Follow-up for end stage renal disease on hemodialysis. Tolerated dialysis treatments for the last 3 days without any issue of problems; no apparent distress noted at the time of my visit; feels reasonably well; no other events overnight or earlier this morning. Exam 2 Narrative: General: elderly but WD/WN female in NAD Heart: normal S1 and S2; no rub Lungs: clear to auscultation Abdomen: soft, nontender, nondistended, positive bowel sounds Extremities: no cyanosis or clubbing; no edema Skin: no nodules Objective Data Vital Signs Vital Signs: Vital Signs Temp Pulse Resp BP Pulse Ox O2 Del Method 04/11/25 11:35 98.0 F 99 12 148/76 H 100 04/11/25 08:18 85 04/11/25 08:00 82 04/11/25 08:00 Room Air 04/11/25 06:00 98.3 F 86 18 136/57 L 99 04/11/25 04:00 81 04/11/25 00:00 91 04/10/25 22:00 98.3 F 80 18 145/57 H 100 04/10/25 21:05 89 04/10/25 20:00 94 04/10/25 20:00 Room Air Intake/Output Intake/Output: Intake & Output 04/08/25 04/09/25 04/10/25 04/11/25 23:59 23:59 23:59 23:59 Intake Total 450 660 360 15 Output Total 700 200 500 0 Balance -250 460 -140 15 Meds/Results Medications: Active Medications Generic Name Dose Route Start Last Admin Trade Name Freq PRN Reason Stop Dose Admin Acetaminophen 650 mg 04/03/25 16:59 04/06/25 09:07 Acetaminophen 325 Mg Tablet PO 650 mg Q4H PRN Administration Mild Pain (1-3) or Fever Hydrocodone Bitart/Acetaminophen 1 tab 04/03/25 16:59 Hydrocodone/Acetaminophen (*Crx) 5-325 Mg Tablet PO Q4H PRN Pain Rated 4-6 Aspirin 81 mg 04/05/25 09:00 04/11/25 08:19 Aspirin 81 Mg Enteric Tablet PO 81 mg QAM RAVI Administration Atorvastatin Calcium 40 mg 04/05/25 09:00 04/11/25 08:18 Atorvastatin 40 Mg Tablet PO 40 mg DAILY RAVI Administration Carvedilol 12.5 mg 04/03/25 21:00 04/11/25 08:18 Carvedilol 12.5 Mg Tablet PO 12.5 mg Q12HR RAVI Administration Cinacalcet 30 mg 04/06/25 17:00 04/10/25 17:29 Cinacalcet 30 Mg Tablet PO 30 mg Q24H RAVI Administration Clopidogrel Bisulfate 75 mg 04/05/25 09:00 04/11/25 08:18 Clopidogrel Bisulfate 75 Mg Tablet PO 75 mg QAM RAVI Administration Docusate Sodium 100 mg 04/06/25 21:00 04/11/25 08:18 Docusate Sodium 100 Mg Capsule PO 100 mg Q12HR RAVI Administration Ergocalciferol 1,250 mcg 04/05/25 09:40 04/05/25 10:18 Ergocalciferol (Vitamin D2) 1,250 Mcg (50,000 Units) Capsule PO 1,250 mcg Fr@0900 [facility] Administration Heparin Sodium (Porcine) 5,000 units 04/09/25 21:00 04/11/25 08:19 Heparin Sodium 5,000 Units/Ml Vial SUB-Q 5,000 units Q12HR RAVI Administration Hydralazine HCl 10 mg 04/03/25 17:04 04/08/25 21:07 Hydralazine Hcl 20 Mg/Ml Vial IV PUSH 10 mg Q8H PRN Administration Blood Pressure - High Albumin Human 50 mls @ 999 mls/hr 04/09/25 06:15 Albutein IVPB 05/09/25 06:14 Q10M PRN HYPOTENSION Lisinopril 20 mg 04/09/25 09:00 04/11/25 08:19 Lisinopril 20 Mg Tablet PO 20 mg QAM [facility] Administration Ondansetron HCl 4 mg 04/03/25 16:59 04/06/25 09:16 Ondansetron Inj 4 Mg/2 Ml Vial IV PUSH 4 mg Q4H PRN Administration Nausea Pantoprazole Sodium 20 mg 04/06/25 10:35 04/11/25 08:19 Pantoprazole Sod Sesquihydrate 20 Mg Tab PO 20 mg QAM [facility] Administration Polyethylene Glycol 17 gm 04/06/25 09:25 04/11/25 08:19 Polyethylene Glycol 3350 17 Gm Powd.Pack PO 17 gm QAM [facility] Administration Trazodone HCl 50 mg 04/04/25 01:38 04/09/25 21:32 Trazodone Hcl 50 Mg Tablet PO 50 mg HS PRN Administration Insomnia Venlafaxine HCl 150 mg 04/04/25 09:00 04/11/25 08:19 Venlafaxine Hcl Xr 75 Mg Cap.Er.24h PO 150 mg DAILY RAVI Administration Radiology Results: ITS Impressions Renal Ultrasound 04/03/25 20:52 IMPRESSION: No hydronephrosis or renal calculi. Findings suggesting medical renal disease. Brain MRI 04/04/25 11:59 IMPRESSION: 1. Small acute infarcts at the right thalamus and in the right parieto-occipital region along the margins of a small region of encephalomalacia consistent with a prior, now chronic infarct. 2. Couple additional small old lacunar infarcts in the left frontal lobe white matter. 3. Moderate diffuse periventricular predominant nonspecific white matter T2 hyperintensity consistent with chronic small vessel ischemic disease. 4. Decreased T1 fat signal throughout the diploic space of the calvarium with corresponding solid and pepper appearance to the calvarium on prior CT most suggestive of sequela of hyperparathyroidism or renal osteodystrophy. ADDENDUM: 04/05/25 1324 ADDENDUM: Note there is an additional small region of restricted diffusion consistent with acute infarct in the anterior left frontal lobe. Carotid Doppler Study 04/05/25 10:07 IMPRESSION: 1. No significant stenosis. 2. Antegrade flow demonstrated within both vertebral arteries. Brain MRA 04/05/25 13:04 IMPRESSION: 1. Moderate stenosis at the intracranial right vertebral artery and diminutive distal left vertebral artery and basilar artery, bladder to which could be developmental with majority vascular flow to the bilateral posterior cerebral arteries supplied via a significantly larger caliber patent bilateral posterior commuting arteries. 2. Small region of flow to reperfusion associated with acute infarcts in the left frontal lobe, right thalamus and right parieto-occipital region. Central Venous Line 04/08/25 16:00 IMPRESSION: 1. Fluoroscopy utilized during placement of a likely tunneled right internal jugular central venous catheter with distal tip at the right atrium. See procedure note for further detail. Chest X-Ray 04/08/25 16:02 IMPRESSION: 1. Likely tunneled right internal jugular central venous catheter with distal tip in the right atrium. 2. Bandlike opacity medial left lower lung zone and favor atelectasis over pneumonia. Head CT 04/11/25 15:43 Impression: No acute intracranial hemorrhage or suspicious mass effect. Labs Labs: Laboratory Tests 04/11/25 07:43 04/11/25 07:43 Calcium 9.2 Total Bilirubin 0.5 AST 22 ALT 8 Alkaline Phosphatase 176 H Total Protein 5.7 L Albumin 3.0 L
--- NOTE | 2025-04-11 12:21 | P.PNIM_ITS ---
Progress Note: A&P Assessment and Plan (1) Chronic kidney disease, stage 5: Code(s): N18.5 - Chronic kidney disease, stage 5 <Georgette Cui APRN - Last Filed: 04/11/25 15:35> Status: Acute <Georgette Cui APRN - Last Filed: 04/11/25 15:35> Assessment and Plan: - previous history of SAEID/rhabdomyolysis resulting in need for temporary dialysis. Per last Nephrology note in June of 2024, patient had been off dialysis. - creatinine 8.7, BUN 39, GFR 5 on admission. Previously 5.0, BUN 35, GFR 9 in June of 2024. - monitor electrolyte - renal diet - continue home sodium bicarbonate p.o. 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 Removed prior to dialysis and bleeding has subsided. H/H remains stable. Continue to monitor. Surgery aware. Patient had dialysis today. Tolerated well. will get another session on Tuesday -insurance coverage start on Tuesday for dialysis working with care coordination 04/11: Dialysis plan for tomorrow, Tuesday04/13/25. Port sight appears normal without concerns for infection., no bleeding. <Georgette Cui APRN - Last Filed: 04/11/25 15:35> - previous history of SAEID/rhabdomyolysis resulting in need for temporary dialysis. Per last Nephrology note in June of 2024, patient had been off dialysis. - creatinine 8.7, BUN 39, GFR 5 on admission. Previously 5.0, BUN 35, GFR 9 in June of 2024. - monitor electrolyte - renal diet - continue home sodium bicarbonate p.o. 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 Removed prior to dialysis and bleeding has subsided. H/H remains stable. Continue to monitor. Surgery aware. Patient had dialysis today. Tolerated well. will get another session on Tuesday -insurance coverage start on Tuesday for dialysis working with care coordination 04/11: Dialysis plan for tomorrow, Tuesday04/13/25. Port sight appears normal without concerns for infection. <Adam Anglin, Student - Last Filed: 04/11/25 15:22> (2) Acute right arterial ischemic stroke, MCA (middle cerebral artery): Code(s): I63.511 - Cerebral infarction due to unspecified occlusion or stenosis of right middle cerebral artery <Georgette Cui APRN - Last Filed: 04/11/25 15:35> Status: Acute <Georgette Cui APRN - Last Filed: 04/11/25 15:35> Assessment and Plan: - Lipid panel: elevated - Carotid dopplers: No significant stenosis. Antegrade flow demonstrated within both vertebral arteries. - Head CT: No fracture or acute intracranial process. - MRI: Small acute infarcts at the right thalamus and in the right parieto- occipital region along the margins of a small region of encephalomalacia consistent with a prior, now chronic infarct. Couple additional small old lacunar infarcts in the left frontal lobe white matter. - MRA: Moderate stenosis at the intracranial right vertebral artery and diminutive distal left vertebral artery and basilar artery, bladder to which could be developmental with majority vascular flow to the bilateral posterior cerebral arteries supplied via a significantly larger caliber patent bilateral posterior commuting arteries. Small region of flow to reperfusion associated with acute infarcts in the left frontal lobe, right thalamus and right parieto- occipital region. - Echo: LVEF 55-60% with grade I diastolic dysfunction - High-intensity statin: Atorvastatin 40 mg daily - Dual antiplatelet: Plavix 75 mg and aspirin 81 mg daily - Monitor CBC, CMP, magnesium, troponin, and lipid profile - Monitor blood pressure, allow for permissive hypertension. - Telemetry monitoring - Monitor blood glucose - PT/OT eval and treat - Neurology consulted neurology was consulted neurologically stable so far 04/11: intermittent concerns for AMS. Ordered stat Head CT w/o will call Neurology to re visit this pt <Georgette Cui, TRAFFIC PERSONNEL SUPERVISOR - Last Filed: 04/11/25 15:35> - Lipid panel: elevated - Carotid dopplers: No significant stenosis. Antegrade flow demonstrated within both vertebral arteries. - Head CT: No fracture or acute intracranial process. - MRI: Small acute infarcts at the right thalamus and in the right parieto- occipital region along the margins of a small region of encephalomalacia consistent with a prior, now chronic infarct. Couple additional small old lacunar infarcts in the left frontal lobe white matter. - MRA: Moderate stenosis at the intracranial right vertebral artery and diminutive distal left vertebral artery and basilar artery, bladder to which could be developmental with majority vascular flow to the bilateral posterior cerebral arteries supplied via a significantly larger caliber patent bilateral posterior commuting arteries. Small region of flow to reperfusion associated with acute infarcts in the left frontal lobe, right thalamus and right parieto- occipital region. - Echo: LVEF 55-60% with grade I diastolic dysfunction - High-intensity statin: Atorvastatin 40 mg daily - Dual antiplatelet: Plavix 75 mg and aspirin 81 mg daily - Monitor CBC, CMP, magnesium, troponin, and lipid profile - Monitor blood pressure, allow for permissive hypertension. - Telemetry monitoring - Monitor blood glucose - PT/OT eval and treat - Neurology consulted neurology was consulted neurologically stable so far 04/11: intermittent concerns for AMS. See HPI for further detail. Ordered stat Head CT w/o Possible Neurology consult <Aquilino Becerra - Last Filed: 04/11/25 15:22> (3) Fall: Qualifiers: Encounter type: initial encounter Qualified Code(s): W19.XXXA - Unspecified fall, initial encounter <Georgette Cui TRAFFIC PERSONNEL SUPERVISOR - Last Filed: 04/11/25 15:35> Code(s): W19.XXXA - Unspecified fall, initial encounter <Georgette Cui TRAFFIC PERSONNEL SUPERVISOR - Last Filed: 04/11/25 15:35> Status: Acute <Georgette Cui TRAFFIC PERSONNEL SUPERVISOR - Last Filed: 04/11/25 15:35> Assessment and Plan: - reported frequent falls for the past week - new CVA see plan above. - Shoulder XR unremarkable - UA and CXR negative for findings for infection - PT/OT evaluation for rehab services, recommending SNF. Care coordination following. - fall precaution <Georgette Cui TRAFFIC PERSONNEL SUPERVISOR - Last Filed: 04/11/25 15:35> - reported frequent falls for the past week - new CVA see plan above. - Shoulder XR unremarkable - UA and CXR negative for findings for infection - PT/OT evaluation for rehab services, recommending SNF. Care coordination following. - fall precaution 04/11: continue Fall precautions Continue PT/OT <Aquilino Becerra - Last Filed: 04/11/25 15:22> (4) Anemia: Qualifiers: Anemia type: due to chronic kidney disease Chronic kidney disease stage: stage 5 (GFR < 15), not on chronic dialysis Qualified Code(s): N18.5 - Chronic kidney disease, stage 5; D63.1 - Anemia in chronic kidney di sease <Georgette Cui TRAFFIC PERSONNEL SUPERVISOR - Last Filed: 04/11/25 15:35> Code(s): D64.9 - Anemia, unspecified <Georgette Cui TRAFFIC PERSONNEL SUPERVISOR - Last Filed: 04/11/25 15:35> Status: Acute <Georgette Cui TRAFFIC PERSONNEL SUPERVISOR - Last Filed: 04/11/25 15:35> Assessment and Plan: - H/H remains stable - Hx of CKD stage 4, anemia in setting of chronic disease - transfuse if <7 - trend CBC Per RN patient developed bleeding overnight at the catheter site requiring pressure dressing. Removed prior to dialysis and bleeding has subsided. H/H remains stable. Continue to monitor. Surgery aware. <Georgette Cui TRAFFIC PERSONNEL SUPERVISOR - Last Filed: 04/11/25 15:35> - H/H remains stable - Hx of CKD stage 4, anemia in setting of chronic disease - transfuse if <7 - trend CBC Per RN patient developed bleeding overnight at the catheter site requiring pressure dressing. Removed prior to dialysis and bleeding has subsided. H/H remains stable. Continue to monitor. Surgery aware. 7/3: H/H is 7.6/25.5. Transfusion if <7 continue to trend CBC <Adam Anglin, Student - Last Filed: 04/11/25 15:22> (5) Hypertension: Qualifiers: Hypertension type: secondary to other renal disorders Qualified Code(s): I15.1 - Hypertension secondary to other renal disorders; N28.89 - Other specified disorders of kidney and ureter <Georgette Cui APRN - Last Filed: 04/11/25 15:35> Code(s): I10 - Essential (primary) hypertension <Georgette Cui TRAFFIC PERSONNEL SUPERVISOR - Last Filed: 04/11/25 15:35> Status: Chronic <Georgette Cui TRAFFIC PERSONNEL SUPERVISOR - Last Filed: 04/11/25 15:35> Assessment and Plan: - chronic, previously not well controlled. Arrived 205/102. - continue home medications: Carvedilol 12.5 mg BID and PRN hydralazine - blood pressures 141/65. Continue to monitor <Georgette Cui APRN - Last Filed: 04/11/25 15:35> - chronic, previously not well controlled. Arrived 205/102. - continue home medications: Carvedilol 12.5 mg BID and PRN hydralazine - blood pressures 141/65. Continue to monitor 04/11: 136/57 today. Continue to monitor <Adam Anglin, Student - Last Filed: 04/11/25 15:22> (6) Diet-controlled type 2 diabetes mellitus: Code(s): E11.9 - Type 2 diabetes mellitus without complications <Georgette Cui TRAFFIC PERSONNEL SUPERVISOR - Last Filed: 04/11/25 15:35> Status: Chronic <Georgette Cui TRAFFIC PERSONNEL SUPERVISOR - Last Filed: 04/11/25 15:35> Assessment and Plan: - not currently on any diabetic medications, diet controlled - A1c 4.6 <Georgette Cui TRAFFIC PERSONNEL SUPERVISOR - Last Filed: 04/11/25 15:35> Time Spent With Patient Time with patient: 25 - 35 minutes <Georgette Cui TRAFFIC PERSONNEL SUPERVISOR - Last Filed: 04/11/25 15:35> Subjective Date/time seen: 04/11/25 12:21 <Georgette Cui TRAFFIC PERSONNEL SUPERVISOR - Last Filed: 04/11/25 15:35> Interval history: Follow-up for end stage renal disease on hemodialysis. Tolerating dialysis at the time of my visit (seen on HD at 10:05AM) -- tolerated dialysis yesterday as well as the day before without any issues or problems; no apparent distress noted when seen; no other acute complaints voiced. <Georgette Cui TRAFFIC PERSONNEL SUPERVISOR - Last Filed: 04/11/25 15:35> Follow-up for end stage renal disease on hemodialysis. Tolerating dialysis at the time of my visit (seen on HD at 10:05AM) -- tolerated dialysis yesterday as well as the day before without any issues or problems; no apparent distress noted when seen; no other acute complaints voiced. 04/11: Patient was seen at approx. 1330 today. A&O to person, place, and time. tolerating dialysis and plan is for another treatment tomorrow (04/12/25). Noted worsened fatigue since admission and starting dialysis but that her fatigue levels have remained the same. Pt does not feel fatigue has worsened since admission. Endorses decrease in appetite. Denies chest pain, dyspnea, N/V, abdominal pain, lightheaded, changes in vision, dizziness, pain or abnormalities with urination or bowel movements. On exam, patient is seated, slouched and has head hanging forward. Patient states she can hold up her head (this was demonstrated by her) and does not feel weak, but continues to stay in this position. Patient was seen again at approx 1430. at this time patient was unable to answer questions appropriately and responded with incoherent words. Recent concerns for intermittent changes in mental status. Noticeable weakness with trunk stability & L>R upper extremities while seated. <Adam Anglin, Student - Last Filed: 04/11/25 15:22> Review of Systems Review of Systems: All systems reviewed & are unremarkable except as noted in HPI and below <Georgette Cui APRN - Last Filed: 04/11/25 15:35> Exam Narrative: AF HR 87 RR 12 SpO2 100 BP 141/65 General: female in no acute respiratory distress who is nontoxic appearing, lying semi recumbent in bed. HEENT: Normocephalic. Atraumatic. Extraocular movement intact. Sclera clear and anicteric. No facial asymmetry. Chest: Lungs are clear to auscultation bilaterally. No wheezes or crackles. Dialysis catheter in place with clean/dry/intact dressing. CV: Heart was regular rate and rhythm. S1-S2. No murmurs, gallops, or rubs. Abd: Abdomen was soft. Nontender. Nondistended. Positive bowel sounds. Ext: No clubbing, cyanosis, or edema. DP pulses bilaterally. Neuro: Patient is alert and oriented x4. Strength is 5/5 in both upper and lower extremities. Speech is clear. <Georgette Cui APRN - Last Filed: 04/11/25 15:35> Const: General: comfortable and no acute distress <Georgette Cui APRN - Last Filed: 04/11/25 15:35> Other: , female, nontoxic appearance <Georgette Cui APRN - Last Filed: 04/11/25 15:35> HENMT: Face/Nose/Sinus: Normal nares present <Georgette Goldman SeeRAJENDRAN - Last Filed: 04/11/25 15:35> Mouth: Yes moist mucous membranes <Georgette Jones See TRAFFIC PERSONNEL SUPERVISOR - Last Filed: 04/11/25 15:35> Eyes: General: appearance normal, both eyes and all related structures <Georgette Goldman See TRAFFIC PERSONNEL SUPERVISOR - Last Filed: 04/11/25 15:35> Sclera: sclerae normal <Georgettejoselo Goldman See TRAFFIC PERSONNEL SUPERVISOR - Last Filed: 04/11/25 15:35> Pupils: Equal, round and reactive pupils present <Georgette Cui TRAFFIC PERSONNEL SUPERVISOR - Last Filed: 04/11/25 15:35> EOM: EOMs intact bilaterally <Georgettejoselo Goldman See TRAFFIC PERSONNEL SUPERVISOR - Last Filed: 04/11/25 15:35> Resp: Effort & Inspection: normal respiratory effort <Georgette Goldman See TRAFFIC PERSONNEL SUPERVISOR - Last Filed: 04/11/25 15:35> Auscultation: clear to auscultation bilaterally <Georgette Jones See TRAFFIC PERSONNEL SUPERVISOR - Last Filed: 04/11/25 15:35> Cardio: Rate: regular rate <Georgette Goldman See TRAFFIC PERSONNEL SUPERVISOR - Last Filed: 04/11/25 15:35> Rhythm: regular rhythm <Georgette Jones See TRAFFIC PERSONNEL SUPERVISOR - Last Filed: 04/11/25 15:35> Other: S1-S2 present without murmur, rub, ectopy <Georgette Goldman See TRAFFIC PERSONNEL SUPERVISOR - Last Filed: 04/11/25 15:35> GI: Other: Abdomen soft, nondistended, nontender. Normoactive bowel sounds in all quadrants. <Georgette Goldman See TRAFFIC PERSONNEL SUPERVISOR - Last Filed: 04/11/25 15:35> Skin: General skin exam: normal color and no rashes or lesions noted <Georgette Cui TRAFFIC PERSONNEL SUPERVISOR - Last Filed: 04/11/25 15:35> Wounds: no wounds <Georgette Cui TRAFFIC PERSONNEL SUPERVISOR - Last Filed: 04/11/25 15:35> Neuro: Cranial nerves: Yes Equal, round and reactive pupils present <Georgette Cui APRN - Last Filed: 04/11/25 15:35> Speech: normal speech <Georgette Cui APRN - Last Filed: 04/11/25 15:35> Motor exam (neuro): 5/5 motor strength present throughout <Georgette Cui APRN - Last Filed: 04/11/25 15:35> Sensory Exam: normal sensation <Georgette Cui APRN - Last Filed: 04/11/25 15:35> Other: A&O x4, no facial droop or dysarthria appreciated. No gaze palsy. <Georgette Cui APRN - Last Filed: 04/11/25 15:35> Extrem: General: normal to inspection <Georgette Cui APRN - Last Filed: 04/11/25 15:35> Psych: Mental Status: mental status grossly normal <Georgette Cui APRN - Last Filed: 04/11/25 15:35> Affect: normal affect <Georgette Cui APRN - Last Filed: 04/11/25 15:35> Other: Good insight and judgment, pleasant <Georgette Cui APRN - Last Filed: 04/11/25 15:35> Objective Data Vital Signs Vital Signs: Vital Signs - 24 hr 04/10/25 14:00 04/10/25 16:00 04/10/25 20:00 Temperature 96.8 F L Pulse Rate 94 91 Respiratory Rate 16 Blood Pressure 112/65 Pulse Oximetry 100 Oxygen Delivery Room Air 04/10/25 20:00 04/10/25 21:05 04/10/25 22:00 Temperature 98.3 F Pulse Rate 94 89 80 Respiratory Rate 18 Blood Pressure 145/57 H Pulse Oximetry 100 Oxygen Delivery 04/11/25 00:00 04/11/25 04:00 04/11/25 06:00 Temperature 98.3 F Pulse Rate 91 81 86 Respiratory Rate 18 Blood Pressure 136/57 L Pulse Oximetry 99 Oxygen Delivery 04/11/25 08:00 04/11/25 08:00 04/11/25 08:18 Temperature Pulse Rate 82 85 Respiratory Rate Blood Pressure Pulse Oximetry Oxygen Delivery Room Air <Georgette Cui APRN - Last Filed: 04/11/25 15:35> Intake/Output Intake/Output: Intake & Output 04/08/25 04/09/25 04/10/25 04/11/25 23:59 23:59 23:59 23:59 Intake Total 450 660 360 15 Output Total 700 200 500 0 Balance -250 460 -140 15 <Georgette Cui, TRAFFIC PERSONNEL SUPERVISOR - Last Filed: 04/11/25 15:35> Meds/Results Medications: Active Medications Generic Name Dose Route Start Last Admin Trade Name Freq PRN Reason Stop Dose Admin Acetaminophen 650 mg 04/03/25 16:59 04/06/25 09:07 Acetaminophen 325 Mg Tablet PO 650 mg Q4H PRN Administration Mild Pain (1-3) or Fever Hydrocodone Bitart/Acetaminophen 1 tab 04/03/25 16:59 Hydrocodone/Acetaminophen (*Crx) 5-325 Mg Tablet PO Q4H PRN Pain Rated 4-6 Aspirin 81 mg 04/05/25 09:00 04/11/25 08:19 Aspirin 81 Mg Enteric Tablet PO 81 mg QAM RAVI Administration Atorvastatin Calcium 40 mg 04/05/25 09:00 04/11/25 08:18 Atorvastatin 40 Mg Tablet PO 40 mg DAILY RAVI Administration Carvedilol 12.5 mg 04/03/25 21:00 04/11/25 08:18 Carvedilol 12.5 Mg Tablet PO 12.5 mg Q12HR RAVI Administration Cinacalcet 30 mg 04/06/25 17:00 04/10/25 17:29 Cinacalcet 30 Mg Tablet PO 30 mg Q24H RAVI Administration Clopidogrel Bisulfate 75 mg 04/05/25 09:00 04/11/25 08:18 Clopidogrel Bisulfate 75 Mg Tablet PO 75 mg QAM RAVI Administration Docusate Sodium 100 mg 04/06/25 21:00 04/11/25 08:18 Docusate Sodium 100 Mg Capsule PO 100 mg Q12HR RAVI Administration Ergocalciferol 1,250 mcg 04/05/25 09:40 04/05/25 10:18 Ergocalciferol (Vitamin D2) 1,250 Mcg (50,000 Units) Capsule PO 1,250 mcg Fr@0900 RAVI Administration Heparin Sodium (Porcine) 5,000 units 04/09/25 21:00 04/11/25 08:19 Heparin Sodium 5,000 Units/Ml Vial SUB-Q 5,000 units Q12HR RAVI Administration Hydralazine HCl 10 mg 04/03/25 17:04 04/08/25 21:07 Hydralazine Hcl 20 Mg/Ml Vial IV PUSH 10 mg Q8H PRN Administration Blood Pressure - High Albumin Human 50 mls @ 999 mls/hr 04/09/25 06:15 Albutein IVPB 05/09/25 06:14 Q10M PRN HYPOTENSION Lisinopril 20 mg 04/09/25 09:00 04/11/25 08:19 Lisinopril 20 Mg Tablet PO 20 mg QAM RAVI Administration Ondansetron HCl 4 mg 04/03/25 16:59 04/06/25 09:16 Ondansetron Inj 4 Mg/2 Ml Vial IV PUSH 4 mg Q4H PRN Administration Nausea Pantoprazole Sodium 20 mg 04/06/25 10:35 04/11/25 08:19 Pantoprazole Sod Sesquihydrate 20 Mg Tab PO 20 mg QAM RAVI Administration Polyethylene Glycol 17 gm 04/06/25 09:25 04/11/25 08:19 Polyethylene Glycol 3350 17 Gm Powd.Pack PO 17 gm QAM RAVI Administration Trazodone HCl 50 mg 04/04/25 01:38 04/09/25 21:32 Trazodone Hcl 50 Mg Tablet PO 50 mg HS PRN Administration Insomnia Venlafaxine HCl 150 mg 04/04/25 09:00 04/11/25 08:19 Venlafaxine Hcl Xr 75 Mg Cap.Er.24h PO 150 mg DAILY RAVI Administration <Georgette Cui, TRAFFIC PERSONNEL SUPERVISOR - Last Filed: 04/11/25 15:35> Radiology Results: ITS Impressions Head CT 04/03/25 13:41 IMPRESSION: 1. No fracture or acute intracranial process. 2. Moderate-sized region of encephalomalacia in the right parieto-occipital region consistent with sequela of old infarct. 3. Moderate scattered nonspecific white matter hypoattenuation consistent with chronic small vessel ischemic disease. 4. Interval development of a salt and pepper appearance to the skull typical of hyperparathyroidism or renal osteodystrophy. Renal Ultrasound 04/03/25 20:52 IMPRESSION: No hydronephrosis or renal calculi. Findings suggesting medical renal disease. Brain MRI 04/04/25 11:59 IMPRESSION: 1. Small acute infarcts at the right thalamus and in the right parieto-occipital region along the margins of a small region of encephalomalacia consistent with a prior, now chronic infarct. 2. Couple additional small old lacunar infarcts in the left frontal lobe white matter. 3. Moderate diffuse periventricular predominant nonspecific white matter T2 hyperintensity consistent with chronic small vessel ischemic disease. 4. Decreased T1 fat signal throughout the diploic space of the calvarium with co rresponding solid and pepper appearance to the calvarium on prior CT most suggestive of sequela of hyperparathyroidism or renal osteodystrophy. ADDENDUM: 04/05/25 1324 ADDENDUM: Note there is an additional small region of restricted diffusion consistent with acute infarct in the anterior left frontal lobe. Carotid Doppler Study 04/05/25 10:07 IMPRESSION: 1. No significant stenosis. 2. Antegrade flow demonstrated within both vertebral arteries. Brain MRA 04/05/25 13:04 IMPRESSION: 1. Moderate stenosis at the intracranial right vertebral artery and diminutive distal left vertebral artery and basilar artery, bladder to which could be developmental with majority vascular flow to the bilateral posterior cerebral arteries supplied via a significantly larger caliber patent bilateral posterior commuting arteries. 2. Small region of flow to reperfusion associated with acute infarcts in the left frontal lobe, right thalamus and right parieto-occipital region. Central Venous Line 04/08/25 16:00 IMPRESSION: 1. Fluoroscopy utilized during placement of a likely tunneled right internal jugular central venous catheter with distal tip at the right atrium. See procedure note for further detail. Chest X-Ray 04/08/25 16:02 IMPRESSION: 1. Likely tunneled right internal jugular central venous catheter with distal tip in the right atrium. 2. Bandlike opacity medial left lower lung zone and favor atelectasis over pneumonia. <Georgette Cui, TRAFFIC PERSONNEL SUPERVISOR - Last Filed: 04/11/25 15:35> Labs Labs: Laboratory Results - last 24 hr 04/11/25 07:43 WBC 7.1 RBC 2.62 L Hgb 7.6 L Hct 25.5 L MCV 97.3 MCH 29.0 MCHC 29.8 L RDW 14.6 H Plt Count 213 MPV 10.9 H Sodium 136 L Potassium 3.5 Chloride 101 Carbon Dioxide 30 Anion Gap 5 BUN 13 D Creatinine 4.12 H Estim Creat Clear Calc 13 Estimated GFR 11 L Glucose 75 Calcium 9.2 Total Bilirubin 0.5 AST 22 ALT 8 Alkaline Phosphatase 176 H Total Protein 5.7 L Albumin 3.0 L <Georgette Cui APRN - Last Filed: 04/11/25 15:35> Quality VTE Prophylaxis VTE prophylaxis: pharmacologic ordered <Georgette Cui APRN - Last Filed: 04/11/25 15:35>
--- NOTE | 2025-04-11 15:07 | PCOTNOTE ---
Attempted to see Patient at this time. Patient having increased confusion, difficulty expressing herself, Patient seems to be having increased Left side weakness with less awareness on this side. Patient refused to participate in any tasks at this time. RNEZ notified and aware. RN verbalized she spoke with the doctor about Patient's activity.
[2025-04-11] MEDS: LORazepam INJ (*CRX) 2 MG/ML VIAL 0.5 MG IV PUSH (15:24)
[2025-04-12] VITALS (23 sets, daily range): BP systolic 138–178; BP diastolic 64–85; PULSE 76–92; RESP 14–20; TEMP 36.4–37.1; O2SAT 99–100
[2025-04-12 08:18] LABS: Hematocrit 24.4 % (37.0-47.0); Hemoglobin 7.4 g/dL (12.0-15.0); Mean Corpuscular HGB Conc 30.3 g/dl (32-36); Mean Corpuscular Hemoglobin 29.5 pg (26-34); Mean Corpuscular Volume 97.2 fl (80-100); Platelet Count Result 231 k/mm3 (150-375); Red Blood Count 2.51 M/mm3 (4.2-5.4); White Blood Count 7.4 K/mm3 (4.5-10.0)
[2025-04-12] MEDS: SODIUM CHLORIDE 0.9% IV 1,000 ML 999 ML IV CONT (08:35)
[2025-04-12] MEDS: EPOETIN ALFA-EPBX 20,000 UNITS/ML VIAL 20000 UNITS IV PUSH (08:35)
[2025-04-12] MEDS: DOCUSATE SODIUM 100 MG CAPSULE PO ×2 (11:06→20:47)
[2025-04-12] MEDS: ATORVASTATIN 40 MG TABLET PO (11:06)
[2025-04-12] MEDS: CLOPIDOGREL BISULFATE 75 MG TABLET PO (11:06)
[2025-04-12] MEDS: ASPIRIN 81 MG ENTERIC TABLET PO (11:06)
[2025-04-12] MEDS: VENLAFAXINE HCL XR 75 MG CAP.ER.24H 150 MG PO (11:07)
[2025-04-12] MEDS: PANTOPRAZOLE SOD SESQUIHYDRATE 20 MG TAB PO (11:07)
[2025-04-12] MEDS: ERGOCALCIFEROL (VITAMIN D2) 1,250 MCG (50,000 UNITS) CAPSULE 1250 MCG PO (11:12)
--- NOTE | 2025-04-12 11:45 | P.PNIM_ITS ---
Progress Note: A&P Assessment and Plan (1) Chronic kidney disease, stage 5: Code(s): N18.5 - Chronic kidney disease, stage 5 Status: Acute Assessment and Plan: - previous history of SAEID/rhabdomyolysis resulting in need for temporary dialysis. Per last Nephrology note in June of 2024, patient had been off dialysis. - creatinine 8.7, BUN 39, GFR 5 on admission. Previously 5.0, BUN 35, GFR 9 in June of 2024. - monitor electrolyte - renal diet - continue home sodium bicarbonate p.o. 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 Removed prior to dialysis and bleeding has subsided. H/H remains stable. Continue to monitor. Surgery aware. Patient had dialysis today. Tolerated well. will get another session on Tuesday -insurance coverage start on Tuesday for dialysis working with care coordination 04/11: Dialysis plan for tomorrow, Tuesday04/13/25. Port sight appears normal without concerns for infection., no bleeding. 04/12 dialysis this morning. doing better after treatment, less fatigued, alert, oriented. (2) Acute right arterial ischemic stroke, MCA (middle cerebral artery): Code(s): I63.511 - Cerebral infarction due to unspecified occlusion or stenosis of right middle cerebral artery Status: Acute Assessment and Plan: - Lipid panel: elevated - Carotid dopplers: No significant stenosis. Antegrade flow demonstrated within both vertebral arteries. - Head CT: No fracture or acute intracranial process. - MRI: Small acute infarcts at the right thalamus and in the right parieto- occipital region along the margins of a small region of encephalomalacia consistent with a prior, now chronic infarct. Couple additional small old lacunar infarcts in the left frontal lobe white matter. - MRA: Moderate stenosis at the intracranial right vertebral artery and diminutive distal left vertebral artery and basilar artery, bladder to which could be developmental with majority vascular flow to the bilateral posterior cerebral arteries supplied via a significantly larger caliber patent bilateral posterior commuting arteries. Small region of flow to reperfusion associated with acute infarcts in the left frontal lobe, right thalamus and right parieto- occipital region. - Echo: LVEF 55-60% with grade I diastolic dysfunction - High-intensity statin: Atorvastatin 40 mg daily - Dual antiplatelet: Plavix 75 mg and aspirin 81 mg daily - Monitor CBC, CMP, magnesium, troponin, and lipid profile - Monitor blood pressure, allow for permissive hypertension. - Telemetry monitoring - Monitor blood glucose - PT/OT eval and treat - Neurology consulted neurology was consulted neurologically stable so far 04/11: intermittent concerns for AMS. Ordered stat Head CT w/o 04/12- head CT yesterday- No acute intracranial hemorrhage or suspicious mass effect. this morning pt is alert and oriented and appropriate. no neurological deficit. (3) Fall: Qualifiers: Encounter type: initial encounter Qualified Code(s): W19.XXXA - Unspecified fall, initial encounter Code(s): W19.XXXA - Unspecified fall, initial encounter Status: Acute Assessment and Plan: - reported frequent falls for the past week - new CVA see plan above. - Shoulder XR unremarkable - UA and CXR negative for findings for infection - PT/OT evaluation for rehab services, recommending SNF. Care coordination following. - fall precaution 04/11: continue Fall precautions Continue PT/OT (4) Anemia: Qualifiers: Anemia type: due to chronic kidney disease Chronic kidney disease stage: stage 5 (GFR < 15), not on chronic dialysis Qualified Code(s): N18.5 - Chronic kidney disease, stage 5; D63.1 - Anemia in chronic kidney disease Code(s): D64.9 - Anemia, unspecified Status: Acute Assessment and Plan: - H/H remains stable - Hx of CKD stage 4, anemia in setting of chronic disease - transfuse if <7 - trend CBC Per RN patient developed bleeding overnight at the catheter site requiring pressure dressing. Removed prior to dialysis and bleeding has subsided. H/H remains stable. Continue to monitor. Surgery aware. 04/11: H/H is 7.6/25.5. Transfusion if <7 continue to trend CBC 04/12-stable (5) Hypertension: Qualifiers: Hypertension type: secondary to other renal disorders Qualified Code(s): I15.1 - Hypertension secondary to other renal disorders; N28.89 - Other specified disorders of kidney and ureter Code(s): I10 - Essential (primary) hypertension Status: Chronic Assessment and Plan: - chronic, previously not well controlled. Arrived 205/102. - continue home medications: Carvedilol 12.5 mg BID and PRN hydralazine - blood pressures 141/65. Continue to monitor reviewed and stable Continue to monitor (6) Diet-controlled type 2 diabetes mellitus: Code(s): E11.9 - Type 2 diabetes mellitus without complications Status: Chronic Assessment and Plan: - not currently on any diabetic medications, diet controlled - A1c 4.6 Time Spent With Patient Time with patient: 25 - 35 minutes Subjective Date/time seen: 04/12/25 11:45 Interval history: Follow-up for end stage renal disease on hemodialysis. Tolerating dialysis at the time of my visit (seen on HD at 10:05AM) -- tolerated dialysis yesterday as well as the day before without any issues or problems; no apparent distress noted when seen; no other acute complaints voiced. 04/11: Patient was seen at approx. 1330 today. A&O to person, place, and time. tolerating dialysis and plan is for another treatment tomorrow (04/12/25). Noted worsened fatigue since admission and starting dialysis but that her fatigue levels have remained the same. Pt does not feel fatigue has worsened since admission. Endorses decrease in appetite. Denies chest pain, dyspnea, N/V, abdominal pain, lightheaded, changes in vision, dizziness, pain or abnormalities with urination or bowel movements. On exam, patient is seated, slouched and has head hanging forward. Patient states she can hold up her head (this was demonstrated by her) and does not feel weak, but continues to stay in this position. Patient was seen again at approx 1430. at this time patient was unable to answer questions appropriately and responded with incoherent words. Recent concerns for intermittent changes in mental status. Noticeable weakness with trunk stability & L>R upper extremities while seated. / pt is alert today and appropriate. doensot remember that she was confused yesterday. eating ok, just came back from dialysis. Review of Systems Review of Systems: All systems reviewed & are unremarkable except as noted in HPI and below Exam Narrative: General: female in no acute respiratory distress who is nontoxic appearing, lying semi recumbent in bed. HEENT: Normocephalic. Atraumatic. Extraocular movement intact. Sclera clear and anicteric. No facial asymmetry. Chest: Lungs are clear to auscultation bilaterally. No wheezes or crackles. Dialysis catheter in place with clean/dry/intact dressing. CV: Heart was regular rate and rhythm. S1-S2. No murmurs, gallops, or rubs. Abd: Abdomen was soft. Nontender. Nondistended. Positive bowel sounds. Ext: No clubbing, cyanosis, or edema. DP pulses bilaterally. Neuro: Patient is alert and oriented x4. Strength is 5/5 in both upper and lower extremities. Speech is clear. Const: General: comfortable and no acute distress Other: , female, nontoxic appearance HENMT: Face/Nose/Sinus: Normal nares present Mouth: Yes moist mucous membranes Eyes: General: appearance normal, both eyes and all related structures Sclera: sclerae normal Pupils: Equal, round and reactive pupils present EOM: EOMs intact bilaterally Resp: Effort & Inspection: normal respiratory effort Auscultation: clear to auscultation bilaterally Cardio: Rate: regular rate Rhythm: regular rhythm Other: S1-S2 present without murmur, rub, ectopy GI: Other: Abdomen soft, nondistended, nontender. Normoactive bowel sounds in all quadrants. Skin: General skin exam: normal color and no rashes or lesions noted Wounds: no wounds Neuro: Cranial nerves: Yes Equal, round and reactive pupils present Speech: normal speech Motor exam (neuro): 5/5 motor strength present throughout Sensory Exam: normal sensation Other: A&O x4, no facial droop or dysarthria appreciated. No gaze palsy. Extrem: General: normal to inspection Psych: Mental Status: mental status grossly normal Affect: normal affect Other: Good insight and judgment, pleasant Objective Data Vital Signs Vital Signs: Vital Signs - 24 hr 04/11/25 16:35 04/11/25 19:45 04/11/25 20:00 Temperature 98.0 F Pulse Rate 99 90 Respiratory Rate 12 20 Blood Pressure 148/76 H Pulse Oximetry 100 98 Oxygen Delivery Room Air Room Air Fraction of Inspired Oxygen 21 04/11/25 22:00 04/12/25 06:00 04/12/25 07:00 Temperature 97.7 F 97.5 F L 98.4 F Pulse Rate 99 86 83 Respiratory Rate 20 20 14 Blood Pressure 151/78 H 148/66 H 155/73 H Pulse Oximetry 100 100 99 Oxygen Delivery Fraction of Inspired Oxygen 04/12/25 07:12 04/12/25 07:27 04/12/25 07:45 Temperature Pulse Rate 81 80 77 Respiratory Rate Blood Pressure 156/80 H 167/85 H 154/75 H Pulse Oximetry Oxygen Delivery Fraction of Inspired Oxygen 04/12/25 08:00 04/12/25 08:15 04/12/25 08:30 Temperature Pulse Rate 80 80 78 Respiratory Rate Blood Pressure 149/72 H 147/81 H 150/82 H Pulse Oximetry Oxygen Delivery Fraction of Inspired Oxygen 04/12/25 08:45 04/12/25 09:00 04/12/25 09:15 Temperature Pulse Rate 78 76 76 Respiratory Rate Blood Pressure 138/74 161/72 H 170/84 H Pulse Oximetry Oxygen Delivery Fraction of Inspired Oxygen 04/12/25 09:30 04/12/25 09:45 04/12/25 10:00 Temperature Pulse Rate 82 92 78 Respiratory Rate Blood Pressure 148/64 H 149/80 H 169/74 H Pulse Oximetry Oxygen Delivery Fraction of Inspired Oxygen 04/12/25 10:15 04/12/25 10:30 04/12/25 10:43 Temperature Pulse Rate 79 79 85 Respiratory Rate Blood Pressure 158/70 H 158/70 H 158/79 H Pulse Oximetry Oxygen Delivery Fraction of Inspired Oxygen 04/12/25 10:53 04/12/25 11:06 Temperature 98.1 F Pulse Rate 89 80 Respiratory Rate 14 Blood Pressure 178/81 H Pulse Oximetry 99 Oxygen Delivery Fraction of Inspired Oxygen Intake/Output Intake/Output: Intake & Output 04/09/25 04/10/25 04/11/25 04/12/25 23:59 23:59 23:59 23:59 Intake Total 660 360 15 200 Output Total 200 500 0 1000 Balance 460 -140 15 -800 Meds/Results Medications: Active Medications Generic Name Dose Route Start Last Admin Trade Name Freq PRN Reason Stop Dose Admin Acetaminophen 650 mg 04/03/25 16:59 04/06/25 09:07 Acetaminophen 325 Mg Tablet PO 650 mg Q4H PRN Administration Mild Pain (1-3) or Fever Hydrocodone Bitart/Acetaminophen 1 tab 04/03/25 16:59 Hydrocodone/Acetaminophen (*Crx) 5-325 Mg Tablet PO Q4H PRN Pain Rated 4-6 Aspirin 81 mg 04/05/25 09:00 04/12/25 11:06 Aspirin 81 Mg Enteric Tablet PO 81 mg QAM RAVI Administration Atorvastatin Calcium 40 mg 04/05/25 09:00 04/12/25 11:06 Atorvastatin 40 Mg Tablet PO 40 mg DAILY [facility] Administration Carvedilol 12.5 mg 04/03/25 21:00 04/12/25 11:06 Carvedilol 12.5 Mg Tablet PO 12.5 mg Q12HR RAVI Administration Cinacalcet 30 mg 04/06/25 17:00 04/11/25 18:22 Cinacalcet 30 Mg Tablet PO Not Given Q24H [facility] Clopidogrel Bisulfate 75 mg 04/05/25 09:00 04/12/25 11:06 Clopidogrel Bisulfate 75 Mg Tablet PO 75 mg QAM [facility] Administration Docusate Sodium 100 mg 04/06/25 21:00 04/12/25 11:06 Docusate Sodium 100 Mg Capsule PO 100 mg Q12HR RAVI Administration Ergocalciferol 1,250 mcg 04/05/25 09:40 04/12/25 11:12 Ergocalciferol (Vitamin D2) 1,250 Mcg (50,000 Units) Capsule PO 1,250 mcg Fr@0900 RAVI Administration Heparin Sodium (Porcine) 5,000 units 04/09/25 21:00 04/12/25 11:07 Heparin Sodium 5,000 Units/Ml Vial SUB-Q Not Given Q12HR RAVI Hydralazine HCl 10 mg 04/03/25 17:04 04/08/25 21:07 Hydralazine Hcl 20 Mg/Ml Vial IV PUSH 10 mg Q8H PRN Administration Blood Pressure - High Albumin Human 50 mls @ 999 mls/hr 04/09/25 06:15 Albutein IVPB 05/09/25 06:14 Q10M PRN HYPOTENSION Lisinopril 20 mg 04/09/25 09:00 04/12/25 11:07 Lisinopril 20 Mg Tablet PO 20 mg QAM RAVI Administration Ondansetron HCl 4 mg 04/03/25 16:59 04/06/25 09:16 Ondansetron Inj 4 Mg/2 Ml Vial IV PUSH 4 mg Q4H PRN Administration Nausea Pantoprazole Sodium 20 mg 04/06/25 10:35 04/12/25 11:07 Pantoprazole Sod Sesquihydrate 20 Mg Tab PO 20 mg QAM RAVI Administration Polyethylene Glycol 17 gm 04/06/25 09:25 04/12/25 11:07 Polyethylene Glycol 3350 17 Gm Powd.Pack PO 17 gm QAM RAVI Administration Trazodone HCl 50 mg 04/04/25 01:38 04/09/25 21:32 Trazodone Hcl 50 Mg Tablet PO 50 mg HS PRN Administration Insomnia Venlafaxine HCl 150 mg 04/04/25 09:00 04/12/25 11:07 Venlafaxine Hcl Xr 75 Mg Cap.Er.24h PO 150 mg DAILY RAVI Administration Radiology Results: ITS Impressions Renal Ultrasound 04/03/25 20:52 IMPRESSION: No hydronephrosis or renal calculi. Findings suggesting medical renal disease. Brain MRI 04/04/25 11:59 IMPRESSION: 1. Small acute infarcts at the right thalamus and in the right parieto-occipital region along the margins of a small region of encephalomalacia consistent with a prior, now chronic infarct. 2. Couple additional small old lacunar infarcts in the left frontal lobe white matter. 3. Moderate diffuse periventricular predominant nonspecific white matter T2 hyperintensity consistent with chronic small vessel ischemic disease. 4. Decreased T1 fat signal throughout the diploic space of the calvarium with corresponding solid and pepper appearance to the calvarium on prior CT most suggestive of sequela of hyperparathyroidism or renal osteodystrophy. ADDENDUM: 04/05/25 1324 ADDENDUM: Note there is an additional small region of restricted diffusion consistent with acute infarct in the anterior left frontal lobe. Carotid Doppler Study 04/05/25 10:07 IMPRESSION: 1. No significant stenosis. 2. Antegrade flow demonstrated within both vertebral arteries. Brain MRA 04/05/25 13:04 IMPRESSION: 1. Moderate stenosis at the intracranial right vertebral artery and diminutive distal left vertebral artery and basilar artery, bladder to which could be developmental with majority vascular flow to the bilateral posterior cerebral arteries supplied via a significantly larger caliber patent bilateral posterior commuting arteries. 2. Small region of flow to reperfusion associated with acute infarcts in the left frontal lobe, right thalamus and right parieto-occipital region. Central Venous Line 04/08/25 16:00 IMPRESSION: 1. Fluoroscopy utilized during placement of a likely tunneled right internal jugular central venous catheter with distal tip at the right atrium. See procedure note for further detail. Chest X-Ray 04/08/25 16:02 IMPRESSION: 1. Likely tunneled right internal jugular central venous catheter with distal tip in the right atrium. 2. Bandlike opacity medial left lower lung zone and favor atelectasis over pneumonia. Head CT 04/11/25 15:43 Impression: No acute intracranial hemorrhage or suspicious mass effect. Labs Labs: Laboratory Results - last 24 hr 04/12/25 07:52 WBC 7.4 RBC 2.51 L Hgb 7.4 L Hct 24.4 L MCV 97.2 MCH 29.5 MCHC 30.3 L RDW 14.2 Plt Count 231 MPV 10.8 H Quality VTE Prophylaxis VTE prophylaxis: pharmacologic ordered
--- NOTE | 2025-04-12 11:46 | P.PNNP_ITS ---
Progress Note: A&P Assessment and Plan (1) End stage renal disease: Code(s): N18.6 - End stage renal disease Status: Chronic Assessment and Plan: * due progression of disease * was scheduled for AV access placement in anticipation of SENIOR CUSTOMER SERVICE REPRESENTATIVE/hemodialysis but this never occurred due to insurance issues * she also did not follow-up with Dr. Colmenares after her June 2024 appointment... 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 several years ago * testing noted on this admission: * renal ultrasound c/w medical renal disease * urine eosinophils negative * nephrotic range proteinuria * urine electrolytes non-prerenal * s/p tunneled HD catheter placement (04/08) * HD 04/08, 04/09, and 04/10 * HD today * outpatient dialysis schedule/unit being finalized (2) Acute cerebrovascular accident (CVA): Code(s): I63.9 - Cerebral infarction, unspecified Status: Acute Assessment and Plan: * etiology of falls(?) * as noted by MRI/MRA brain: * small acute infarcts at the right thalamus and in the right parieto- occipital region along the margins of a small region of encephalomalacia consistent with a prior, now chronic infarct * couple additional small old lacunar infarcts in the left frontal lobe white matter * moderate stenosis at the intracranial right vertebral artery and diminutive distal left vertebral artery and basilar artery, bladder to which could be developmental with majority vascular flow to the bilateral posterior cerebral arteries supplied via a significantly larger caliber patent bilateral posterior commuting arteries * small region of flow to reperfusion associated with acute infarcts in the left frontal lobe, right thalamus and right parieto-occipital region. * carotid dopplers: No significant stenosis. Antegrade flow demonstrated within both vertebral arteries. * head CT: No fracture or acute intracranial process. * on statin/plavix/ASA * Neurology following (3) Fall: Qualifiers: Encounter type: initial encounter Qualified Code(s): W19.XXXA - Unspecified fall, initial encounter Code(s): W19.XXXA - Unspecified fall, initial encounter Status: Acute Assessment and Plan: * frequent falls x 1 week prior to admission * CT of head noted: * no fracture or acute intracranial process * moderate-sized region of encephalomalacia in the right parieto-occipital region consistent with sequela of old infarct * moderate scattered nonspecific white matter hypoattenuation consistent with chronic small vessel ischemic disease * interval development of a salt and pepper appearance to the skull typical of hyperparathyroidism or renal osteodystrophy * MRI of brain noted as well * fall precautions * ongoing PT/OT (4) Hypertension: Qualifiers: Hypertension type: secondary to other renal disorders Qualified Code(s): I15.1 - Hypertension secondary to other renal disorders; N28.89 - Other specified disorders of kidney and ureter Code(s): I10 - Essential (primary) hypertension Status: Chronic Assessment and Plan: * poor control on admission * better control at this time * lisinopril added * follow trend of hemodynamics (5) Metabolic acidosis: Code(s): E87.20 - Acidosis, unspecified Status: Acute Assessment and Plan: * secondary to advanced CKD * CO2 improving with oral sodium bicarbonate therapy * dialysis should continue to correct/stabilize * d/c oral sodium bicarbonate with dialysis initiation (6) Anemia: Qualifiers: Anemia type: due to chronic kidney disease Chronic kidney disease st age: stage 5 (GFR < 15), not on chronic dialysis Qualified Code(s): N18.5 - Chronic kidney disease, stage 5; D63.1 - Anemia in chronic kidney disease Code(s): D64.9 - Anemia, unspecified Status: Acute Assessment and Plan: * likely related advanced CKD * anemia studies with adequate iron stores * Epogen with dialysis * follow trend of H/H (7) Hypercalcemia: Code(s): E83.52 - Hypercalcemia Status: Acute Assessment and Plan: * elevated on admission but better currently * extensive outpatient work-up reviewed: * 24 hour urine immunofixation with assymetrical beta and gamma regions * 24hr urine calcium + creatinine suggestive of primary or tertiary hyperparathyroidism * Vitamin A, THOM level, and PTHrp okay * Nuc Med Parathyroid scan negative * suspect a combination of primary mixed with secondary hyperparathyroidism * given elevated PTH and associated renal osteodystrophy, started on sensipar and Vitamin D * follow trend (8) Diet-controlled type 2 diabetes mellitus: Code(s): E11.9 - Type 2 diabetes mellitus without complications Status: Chronic Assessment and Plan: * follow accu-cheks * not currently on any diabetic medications Not opposed to discharge from renal perspective if otherwise medically stable and outpatient dialysis unit & schedule has been finalized. Will continue to follow. Subjective Date/time seen: 04/12/25 11:46 Interval history: Follow-up for end stage renal disease on hemodialysis. Tolerated dialysis treatment earlier this morning without any issue or problems; fluctuating mental status noted yesterday afternoon but seems to be back to baseline at the time of my visit (repeat CT of head negative yesterday as well); no apparent distress or other acute complaints voiced when seen. Exam Narrative: General: elderly but WD/WN female in NAD Heart: normal S1 and S2; no rub Lungs: clear to auscultation Abdomen: soft, nontender, nondistended, positive bowel sounds Extremities: no cyanosis or clubbing; no edema Skin: warm and dry Objective Data Vital Signs Vital Signs: Vital Signs Temp Pulse Resp BP Pulse Ox O2 Del Method FiO2 04/12/25 11:06 80 Room Air 04/12/25 10:53 98.1 F 89 14 178/81 H 99 04/12/25 10:43 85 158/79 H 04/12/25 10:30 79 158/70 H 04/12/25 10:15 79 158/70 H 04/12/25 10:00 78 169/74 H 04/12/25 09:45 92 149/80 H 04/12/25 09:30 82 148/64 H 04/12/25 09:15 76 170/84 H 04/12/25 09:00 76 161/72 H 04/12/25 08:45 78 138/74 04/12/25 08:30 78 150/82 H 04/12/25 08:15 80 147/81 H 04/12/25 08:00 80 149/72 H 04/12/25 07:45 77 154/75 H 04/12/25 07:27 80 167/85 H 04/12/25 07:12 81 156/80 H 04/12/25 07:00 98.4 F 83 14 155/73 H 99 04/12/25 06:00 97.5 F L 86 20 148/66 H 100 04/11/25 22:00 97.7 F 99 20 151/78 H 100 04/11/25 20:00 Room Air 04/11/25 19:45 90 20 98 Room Air 21 Intake/Output Intake/Output: Intake & Output 04/09/25 04/10/25 04/11/25 04/12/25 23:59 23:59 23:59 23:59 Intake Total 660 360 15 311 Output Total 200 500 0 1000 Balance 460 -140 15 -689 Meds/Results Medications: Active Medications Generic Name Dose Route Start Last Admin Trade Name Freq PRN Reason Stop Dose Admin Acetaminophen 650 mg 04/03/25 16:59 04/06/25 09:07 Acetaminophen 325 Mg Tablet PO 650 mg Q4H PRN Administration Mild Pain (1-3) or Fever Hydrocodone Bitart/Acetaminophen 1 tab 04/03/25 16:59 Hydrocodone/Acetaminophen (*Crx) 5-325 Mg Tablet PO Q4H PRN Pain Rated 4-6 Aspirin 81 mg 04/05/25 09:00 04/12/25 11:06 Aspirin 81 Mg Enteric Tablet PO 81 mg QAM RAVI Administration Atorvastatin Calcium 40 mg 04/05/25 09:00 04/12/25 11:06 Atorvastatin 40 Mg Tablet PO 40 mg DAILY RAVI Administration Carvedilol 12.5 mg 04/03/25 21:00 04/12/25 11:06 Carvedilol 12.5 Mg Tablet PO 12.5 mg Q12HR RAVI Administration Cinacalcet 30 mg 04/06/25 17:00 04/11/25 18:22 Cinacalcet 30 Mg Tablet PO Not Given Q24H RAVI Clopidogrel Bisulfate 75 mg 04/05/25 09:00 04/12/25 11:06 Clopidogrel Bisulfate 75 Mg Tablet PO 75 mg QAM RAVI Administration Docusate Sodium 100 mg 04/06/25 21:00 04/12/25 11:06 Docusate Sodium 100 Mg Capsule PO 100 mg Q12HR RAVI Administration Ergocalciferol 1,250 mcg 04/05/25 09:40 04/12/25 11:12 Ergocalciferol (Vitamin D2) 1,250 Mcg (50,000 Units) Capsule PO 1,250 mcg Fr@0900 RAVI Administration Heparin Sodium (Porcine) 5,000 units 04/09/25 21:00 04/12/25 11:07 Heparin Sodium 5,000 Units/Ml Vial SUB-Q Not Given Q12HR RAVI Hydralazine HCl 10 mg 04/03/25 17:04 04/08/25 21:07 Hydralazine Hcl 20 Mg/Ml Vial IV PUSH 10 mg Q8H PRN Administration Blood Pressure - High Albumin Human 50 mls @ 999 mls/hr 04/09/25 06:15 Albutein IVPB 05/09/25 06:14 Q10M PRN HYPOTENSION Lisinopril 20 mg 04/09/25 09:00 04/12/25 11:07 Lisinopril 20 Mg Tablet PO 20 mg QAM RAVI Administration Miscellaneous Information 1 each 04/12/25 00:01 Please Renew [place]. Per [employer] Procedure, It Will Discontinue If Not Renewed XX 05/12/25 00:00 CLARIFY RAVI Ondansetron HCl 4 mg 04/03/25 16:59 04/06/25 09:16 Ondansetron Inj 4 Mg/2 Ml Vial IV PUSH 4 mg Q4H PRN Administration Nausea Pantoprazole Sodium 20 mg 04/06/25 10:35 04/12/25 11:07 Pantoprazole Sod Sesquihydrate 20 Mg Tab PO 20 mg QAM RAVI Administration Polyethylene Glycol 17 gm 04/06/25 09:25 04/12/25 11:07 Polyethylene Glycol 3350 17 Gm Powd.Pack PO 17 gm QAM RAVI Administration Trazodone HCl 50 mg 04/04/25 01:38 04/09/25 21:32 Trazodone Hcl 50 Mg Tablet PO 50 mg HS PRN Administration Insomnia Venlafaxine HCl 150 mg 04/04/25 09:00 04/12/25 11:07 Venlafaxine Hcl Xr 75 Mg Cap.Er.24h PO 150 mg DAILY RAVI Administration Radiology Results: ITS Impressions Renal Ultrasound 04/03/25 20:52 IMPRESSION: No hydronephrosis or renal calculi. Findings suggesting medical renal disease. Brain MRI 04/04/25 11:59 IMPRESSION: 1. Small acute infarcts at the right thalamus and in the right parieto-occipital region along the margins of a small region of encephalomalacia consistent with a prior, now chronic infarct. 2. Couple additional small old lacunar infarcts in the left frontal lobe white matter. 3. Moderate diffuse periventricular predominant nonspecific white matter T2 hyperintensity consistent with chronic small vessel ischemic disease. 4. Decreased T1 fat signal throughout the diploic space of the calvarium with corresponding solid and pepper appearance to the calvarium on prior CT most sug gestive of sequela of hyperparathyroidism or renal osteodystrophy. ADDENDUM: 04/05/25 1324 ADDENDUM: Note there is an additional small region of restricted diffusion consistent with acute infarct in the anterior left frontal lobe. Carotid Doppler Study 04/05/25 10:07 IMPRESSION: 1. No significant stenosis. 2. Antegrade flow demonstrated within both vertebral arteries. Brain MRA 04/05/25 13:04 IMPRESSION: 1. Moderate stenosis at the intracranial right vertebral artery and diminutive distal left vertebral artery and basilar artery, bladder to which could be developmental with majority vascular flow to the bilateral posterior cerebral arteries supplied via a significantly larger caliber patent bilateral posterior commuting arteries. 2. Small region of flow to reperfusion associated with acute infarcts in the left frontal lobe, right thalamus and right parieto-occipital region. Central Venous Line 04/08/25 16:00 IMPRESSION: 1. Fluoroscopy utilized during placement of a likely tunneled right internal jugular central venous catheter with distal tip at the right atrium. See procedure note for further detail. Chest X-Ray 04/08/25 16:02 IMPRESSION: 1. Likely tunneled right internal jugular central venous catheter with distal tip in the right atrium. 2. Bandlike opacity medial left lower lung zone and favor atelectasis over pneumonia. Head CT 04/11/25 15:43 Impression: No acute intracranial hemorrhage or suspicious mass effect. Labs Labs: Laboratory Results - last 24 hr 04/12/25 04/12/25 07:52 14:19 WBC 7.4 RBC 2.51 L Hgb 7.4 L Hct 24.4 L MCV 97.2 MCH 29.5 MCHC 30.3 L RDW 14.2 Plt Count 231 MPV 10.8 H Sodium 137 Potassium 3.8 Chloride 103 Carbon Dioxide 30 Anion Gap 4 BUN 4 L D Creatinine 2.54 H Estim Creat Clear Calc 21 Estimated GFR 19 L Glucose 88 Calcium 10.3 H Phosphorus 2.5 Albumin 3.2 L
[2025-04-12 14:47] LABS: Albumin Level 3.2 g/dL (3.5-5.1); Anion Gap 4 mmol/L (4-12); Blood Urea Nitrogen 4 mg/dL (7-17); Calcium 10.3 mg/dL (8.4-10.2); Carbon Dioxide 30 mmol/L (22-30); Chloride 103 mmol/L (98-107); Estimated CRCL calculation 21 ml/min; Estimated Glomerular Filt Rate 19; Glucose 88 mg/dL (65-110); Potassium 3.8 mmol/L (3.4-5.0); Sodium 137 mmol/L (137-145)
[2025-04-12] MEDS: CINACALCET 30 MG TABLET PO (17:54)
[2025-04-13 04:50] VITALS: BP 154/61; PULSE 76; RESP 18; TEMP 36.8; O2SAT 100
[2025-04-13 09:03] VITALS: PULSE 83
[2025-04-13] MEDS: CLOPIDOGREL BISULFATE 75 MG TABLET PO (09:03)
[2025-04-13] MEDS: ASPIRIN 81 MG ENTERIC TABLET PO (09:03)
[2025-04-13] MEDS: PANTOPRAZOLE SOD SESQUIHYDRATE 20 MG TAB PO (09:03)
[2025-04-13] MEDS: VENLAFAXINE HCL XR 75 MG CAP.ER.24H 150 MG PO (09:03)
[2025-04-13] MEDS: ATORVASTATIN 40 MG TABLET PO (09:03)
[2025-04-13] MEDS: DOCUSATE SODIUM 100 MG CAPSULE PO (09:03)
--- NOTE | 2025-04-13 12:12 | P.DS_ITS ---
DS: Admitting Diagnosis Discharge Date 04/13 Admitting Diagnosis weakness, saeid/ckd DS: Discharge Diagnosis Discharge Diagnosis (1) Chronic kidney disease, stage 5: Code(s): N18.5 - Chronic kidney disease, stage 5 Status: Acute (2) Acute right arterial ischemic stroke, MCA (middle cerebral artery): Code(s): I63.511 - Cerebral infarction due to unspecified occlusion or stenosis of right middle cerebral artery Status: Acute (3) Fall: Qualifiers: Encounter type: initial encounter Qualified Code(s): W19.XXXA - Unspecified fall, initial encounter Code(s): W19.XXXA - Unspecified fall, initial encounter Status: Acute (4) Anemia: Qualifiers: Anemia type: due to chronic kidney disease Chronic kidney disease stage: stage 5 (GFR < 15), not on chronic dialysis Qualified Code(s): N18.5 - Chronic kidney disease, stage 5; D63.1 - Anemia in chronic kidney disease Code(s): D64.9 - Anemia, unspecified Status: Acute (5) Hypertension: Qualifiers: Hypertension type: secondary to other renal disorders Qualified Code(s): I15.1 - Hypertension secondary to other renal disorders; N28.89 - Other specified disorders of kidney and ureter Code(s): I10 - Essential (primary) hypertension Status: Chronic (6) Diet-controlled type 2 diabetes mellitus: Code(s): E11.9 - Type 2 diabetes mellitus without complications Status: Chronic DS: Summary Hospital Course Hospital Course: 64 year old female with past medical history of CKD, SAEID requiring temporary dialysis, chronic anemia, type 2 DM, breast cancer s/p chemotherapy mastectomy, and hypertension presents to the hospital with frequent falls and generalized weakness. # CKD stage 5 - previous history of SAEID/rhabdomyolysis resulting in need for temporary dialysis. Per last Nephrology note in June of 2024, patient had been off dialysis. - creatinine 8.7, BUN 39, GFR 5 on admission. Previously 5.0, BUN 35, GFR 9 in S eptember of 2023. known advanced CKD due to left overs from severe SAEID/ARF from severe rhabdomyolysis several years ago renal US c/w medical renal disease urine eosinophils negative nephrotic range proteinuria urine electrolytes non-prerenal - Surgery consulted s/p right internal jugular tunneled dialysis catheter placement using US and fluoroscopic guidance (inserted on 04/08) -patient developed bleeding overnight at the catheter site requiring pressure dressing. Surgery was aware. Pressure dressing, heparin SQ was held. Bleeding stopped and pt had no issues since. Dressing is now c/d/i. NO erythema noted to site. Patient had dialysis tuesday Tolerated well. Next session is for tuesday. # Acute right arterial ischemic stroke, MCA (middle cerebral artery): - Lipid panel: elevated - Carotid dopplers: No significant stenosis. Antegrade flow demonstrated within both vertebral arteries. - Head CT: No fracture or acute intracranial process. - MRI: Small acute infarcts at the right thalamus and in the right parieto- occipital region along the margins of a small region of encephalomalacia consistent with a prior, now chronic infarct. Couple additional small old lacunar infarcts in the left frontal lobe white matter. - MRA: Moderate stenosis at the intracranial right vertebral artery and diminutive distal left vertebral artery and basilar artery, bladder to which could be developmental with majority vascular flow to the bilateral posterior cerebral arteries supplied via a significantly larger caliber patent bilateral posterior commuting arteries. Small region of flow to reperfusion associated with acute infarcts in the left frontal lobe, right thalamus and right parieto- occipital region. - Echo: LVEF 55-60% with grade I diastolic dysfunction - High-intensity statin: Atorvastatin 40 mg daily - Dual antiplatelet: Plavix 75 mg and aspirin 81 mg daily - Neurology consulted 04/11: intermittent concerns for AMS. Ordered stat Head CT completed 04/12- head CT yesterday- No acute intracranial hemorrhage or suspicious mass effect. this morning pt is alert and oriented and appropriate. no neurological deficit. 04/13 pt is alert and appropriate today. # anemia - H/H remains stable - Hx of CKD stage 4, anemia in setting of chronic disease - transfuse if <7 - trend CBC Per RN patient developed bleeding overnight at the catheter site requiring pressure dressing. Removed prior to dialysis and bleeding has subsided. H/H remains stable. Continue to monitor. Surgery aware. 04/11: H/H is 7.6/25.5. Transfusion if <7 continue to trend CBC 04/12-stable # t2dm Diet-controlled type 2 diabetes mellitus - not currently on any diabetic medications, diet controlled - A1c 4.6 # HTN - chronic, previously not well controlled. Arrived 205/102. - continue home medications: Carvedilol 12.5 mg BID - added lisinopril per nephrology - blood pressures 141/65. Continue to monitor - continue BP regimen Status at Discharge Functional status at discharge: wheelchair bound Overall status at discharge: patient is progressing back to baseline Time Spent with Patient Time attestation: Total time spent providing and/or coordinating discharge services: Time spent: Greater than 30 minutes Exam Narrative: General: female in no acute respiratory distress who is nontoxic appearing, lying semi recumbent in bed. HEENT: Normocephalic. Atraumatic. Extraocular movement intact. Sclera clear and anicteric. No facial asymmetry. Chest: Lungs are clear to auscultation bilaterally. No wheezes or crackles. Dialysis catheter in place with clean/dry/intact dressing. CV: Heart was regular rate and rhythm. S1-S2. No murmurs, gallops, or rubs. Abd: Abdomen was soft. Nontender. Nondistended. Positive bowel sounds. Ext: No clubbing, cyanosis, or edema. DP pulses bilaterally. Neuro: Patient is alert and oriented x4. Strength is 5/5 in both upper and lower extremities. Speech is clear. she is at times forgetful but a lot more alert today Const: General: comfortable and no acute distress Other: , female, nontoxic appearance HENMT: Face/Nose/Sinus: Normal nares present Mouth: Yes moist mucous membranes Eyes: General: appearance normal, both eyes and all related structures Sclera: sclerae normal Pupils: Equal, round and reactive pupils present EOM: EOMs intact bilaterally Resp: Effort & Inspection: normal respiratory effort Auscultation: clear to auscultation bilaterally Cardio: Rate: regular rate Rhythm: regular rhythm Other: S1-S2 present without murmur, rub, ectopy GI: Other: Abdomen soft, nondistended, nontender. Normoactive bowel sounds in all quadrants. Skin: General skin exam: normal color and no rashes or lesions noted Wounds: no wounds Neuro: Cranial nerves: Yes Equal, round and reactive pupils present Speech: normal speech Motor exam (neuro): 5/5 motor strength present throughout Sensory Exam: normal sensation Other: A&O x4, no facial droop or dysarthria appreciated. No gaze palsy. Extrem: General: normal to inspection Psych: Mental Status: mental status grossly normal Affect: normal affect Other: Good insight and judgment, pleasant DS: Data Data Completed and Pending Completed studies during hospitalization: chest xray, head ct, brain. carotid Doppler Labs on day of discharge: Labs from last 24 hours 04/12/25 14:19 Sodium 137 Potassium 3.8 Chloride 103 Carbon Dioxide 30 Anion Gap 4 BUN 4 L D Creatinine 2.54 H Estim Creat Clear Calc 21 Estimated GFR 19 L Glucose 88 Calcium 10.3 H Phosphorus 2.5 Albumin 3.2 L Discharge Plan Discharge Attending physician on discharge: Devon Holguin Consulting providers: Shirley rBambila; James Millan Discharging Clinician: Georgette Cui Patient Disposition: SNF Activity: may shower and other - see discharge instructions Diet: renal Discharge Instructions: Pt has Tunneled dialysis catheter. she is going to shower, it needs to be well covered. Pt is to have a dialysis session on tuesday. close f/u with nephrology. Patient Language: Thai Stand Alone Forms: General Discharge Information Discharge Medications: New atorvastatin 40 mg Tablet 40 mg PO DAILY Qty: 30 0RF clopidogrel 75 mg Tablet 75 mg PO QAM Qty: 30 0RF aspirin 81 mg Tablet,Delayed Release (Dr/Ec) 81 mg PO QAM Qty: 30 0RF cinacalcet [Sensipar] 30 mg Tablet 30 mg PO Q24H Qty: 30 0RF lisinopril 20 mg Tablet 20 mg PO QAM Qty: 30 0RF Continued sodium bicarbonate 650 mg Tablet 1,300 mg PO BIDPC Qty: 60 0RF carvedilol 12.5 mg tablet 12.5 mg PO Q12H Qty: 180 3RF Rx Instructions: must administer with a meal/food venlafaxine 150 mg capsule,extended release 24hr See Rx Instructions .ROUTE .COMPLEX Qty: 90 1RF Dose Instruction: TAKE 1 CAPSULE BY MOUTH DAILY Rx Instructions: TAKE 1 CAPSULE BY MOUTH DAILY Date of admission: 04/05/25 12:18 Primary Care Provider: Monster Garza Admitting Provider: Hilario Estevez Attending physician on admission: Jones,Lady L. Condition: Stable Quality VTE Prophylaxis VTE prophylaxis: pharmacologic ordered Hospitalist MIPS Heart Failure (Exclusion) Patient has history of Heart Transplant or Left Ventricular Assistive Device?: No IF YES, STOP HERE Heart Failure (Qualifier) Patient has current or prior documentation of LVEF less than or equal to 40%, or mod/servere depressed LVSF?: No IF NO, STOP HERE
[2025-04-13 13:50] LABS: SARS-CoV-2 RNA PCR Negative (Negative)
== END 2025-04-13 15:00 | DRG 673 ==
LOC: ANHED 14:04 → ANHIMU 17:34 → ANH3MED 04-06 09:35
PROVIDERS: Internal Medicine Nephrology; Psychiatry & Neurology Neurology; Student in an Organized Health Care Education/Training Program; Surgery; Admitting Provider Internal Medicine; Emergency Provider Emergency Medicine; PCP Family Medicine Adolescent Medicine; Visit Provider Nurse Practitioner
PROC: 0JH63XZ Insertion of Tunneled Vascular Access Device into Chest Subcutaneous Tissue and Fascia, Percutaneous Approach (ICD-10-PCS; CPT 36908; principal; 2025-04-08 14:00)
DX: I12.0 Hypertensive chronic kidney disease with stage 5 chronic kidney disease or end stage renal disease (principal); I63.9 Cerebral infarction, unspecified; N17.9 Acute kidney failure, unspecified; E87.21 Acute metabolic acidosis; M62.82 Rhabdomyolysis; N25.81 Secondary hyperparathyroidism of renal origin; N18.5 Chronic kidney disease, stage 5; E11.22 Type 2 diabetes mellitus with diabetic chronic kidney disease; E11.42 Type 2 diabetes mellitus with diabetic polyneuropathy; W19.XXXA Unspecified fall, initial encounter; D63.1 Anemia in chronic kidney disease; F41.9 Anxiety disorder, unspecified; N25.0 Renal osteodystrophy; E83.52 Hypercalcemia; Z85.3 Personal history of malignant neoplasm of breast; Z87.891 Personal history of nicotine dependence; Z86.73 Personal history of transient ischemic attack (TIA), and cerebral infarction without residual deficits; Z99.2 Dependence on renal dialysis
CPT/HCPCS: 36415; 70450; 70544; 70553; 71046; 73030; 76775; 77001; 80048; 80053; 80061; 80069; 81001; 82306; 82550; 82570; 82607; 82728; 82746; 82948; 83036; 83540; 83550; 83735; 83970; 84100; 84156; 84207; 84300; 84425; 84540; 85025; 85027; 85999; 86704; 86706; 86803; 87340; 87635; 92523; 93005; 93880; 96372; 96374; 96375; 97110; 97116; 97161; 97167; 97530; 97535; 99285; A9270; A9577; C1750; C8929; G0257; G0378; J0360; J0690; J1644; J2003; J2004; J2060; J2405; J2704; J3010; J7030; J7040; Q5105; Q9957

== ENCOUNTER 2025-04-19 12:47 | Emergency (ER) | payer MEDICARE, SELFPAY ==
--- NOTE | ~2025-04-19 | XR_ITS ---
EXAM/PROCEDURE: XR chest 2V - 04/19/2025 14:00 CDT HISTORY: 64 years old Female with syncope TECHNIQUE: Two view(s) of the chest. COMPARISON: None available. FINDINGS: LUNGS/ PLEURA: No focal consolidation. No appreciable pneumothorax or large pleural effusion. HEART/ MEDIASTINUM: Heart appears normal in size. BONES: Degenerative changes. OTHER: Visualized upper abdomen is unremarkable. Tip of the dialysis catheter is in the midright atri um. Postsurgical changes are seen in the right axilla IMPRESSION: No acute process. Reviewed, dictated and finalized at location A. IMPRESSION: No acute process.
--- OUTSIDE RECORDS SUMMARY | 2025-04-19 12:50 | XMS_ITS | Referral Summary ---
Author Organization [facility] Office [address] [place] [id number] Care Team Providers Care Irrigating Pump Operator Name Role Phone Monster Garza MD Primary Care Prov ider Allergies No known active allergies Medications carvediloL (COREG) 12.5 mg tablet Take 1 tablet (12.5 mg total) by mouth 2 (two) times a day 06/26/2024 Active sodium bicarbonate 650 mg tablet Take 1 tablet (650 mg total) by mouth 2 (two) times a day 05/24/2024 Active venlafaxine XR (EFFEXOR-XR) 150 mg 24 hr capsule Take 1 capsule (150 mg total) by mouth daily Active Active Problems Problem Noted Date Diagnosed Date CKD (chronic kidney disease) stage 5, GFR less than 15 ml/min 07/10/2024 Assessment & Plan (07/10/2024 10:56 AM CDT): As patient, right-hand dominant, is requiring permanent dialysis access, with a history of breast cancer status post right breast mastectomy, mild to moderate right upper extremity edema, will proceed with creation of left AV fistula versus graft. Risks of the procedure including but not limited to bleeding, infection, nerve injury, stroke, OR, communicated the patient with full understanding. She wished to proceed Social History Tobacco Use Types Packs/Day Years Used Date Smoking Tobacco: Former Cigarettes 2 - 1970 Smokeless Tobacco: Never Tobacco Cessation:Counseling Given: Not Answered AUDIT-C Answer Date Recorded Q1: How often do you have a drink containing alc ohol? Never 07/11/2024 Average Number of Drinks Not on file 024 Frequency of Binge Drinking Not on file 11/2023 Personal Safety Answer Date Recorded Have you ever been in or are you currently in a harmful physical or emotional relationship or is someone making you feel afraid or unsafe? Denies 07/11/2024 Comments Unknown Sex and Gender Information Value Date Recorded Sex Assigned at Not on file Legal Sex Female 8:20 AM CDT Gender Identity Not on file Sexual Orientation Not on file Last Filed Vital Signs Vital Sign Reading Time Taken Comments Blood Pressure 166/84 07/12/2024 12:53 PM CDT lt lower arm Pulse 87 07/12/2024 12:53 PM CDT Temperature 36.8 C (98.3 F) 07/12/2024 12:53 PM CDT Respiratory Rate 14 07/12/2024 12:5 3 PM CDT Oxygen Saturation 100% 07/12/2024 12: 53 PM CDT Inhaled Oxygen Concentration - - Weight 100.5 kg (221 lb 9.6 oz) 07/12/2024 12:53 PM CDT Height 165.1 cm (5' 5) 07/12/2024 12:5 3 PM CDT Body Mass Index 36.88 07/12/2024 12:53 PM CDT Plan of Treatment Not on file Insurance [facility] [place] Care Teams Irrigating Pump Operator Relationship Specialty Start Date End Date Monster Garza MD [address] [place] [address] PCP - General Family Medicine 12/16/23
--- OUTSIDE RECORDS SUMMARY | 2025-04-19 12:50 | XMS_ITS | Clinical Summary ---
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 Gender Identity Not on file Sexual Orientation Not on file Plan of Treatment Health Maintenance Due Date Last Done Comments Colorectal Cancer Screening Colonoscopy (10 Years) 1959 Hepatitis C 1977 DTaP, Tdap and Td Vaccines ( 1 - Tdap) 1978 Mammogram Screening 1999 Pneumococcal Vaccine: 50+ Years (1 of 1 - PCV) 2009 Zoster Vaccines (1 of 2) 2009 COVID-19 Vaccine (4 - 2023-2 5 season) 2024 08/19/2022, 02/06/2021, 01/09/2021 Dexa Scan (General) 2024 RSV Immunization or 60+ Years (1 - 1-dose 75+ series) 2034 Meningococcal B Vaccine Aged Out No l onger eligible based on patient's age to complete this topic Meningococcal Vaccine Aged Out No clarisa lance eligible based on patient's age to complete this topic RSV Immunizations Under 20 Months Aged Out No longer eligible b ased on patient's age to complete this topic Insurance [facility] Care Teams Ranch Supervisor Relationship Specialty Start Date End Date Monster Garza MD [address] [address] PCP - General FAMILY PRACTICE 11/01/23
--- OUTSIDE RECORDS SUMMARY | 2025-04-19 12:50 | XMS_ITS | Clinical Summary ---
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 Gender Identity Not on file Sexual Orientation Not on file Plan of Treatment Health Maintenance Due Date Last Done Comments DEXA Bone Density 1959 Hepatitis C Virus (HCV) Screening 1959 TdaP Immunization 1959 Pap Smear 1980 Cervical Cancer Screening (CCS) 1989 HPV/Cotest 1989 Colonoscopy 2004 Colorectal Cancer Screening 2004 Cologuard 2009 Immunochemical Fecal Occult Blood 2009 Mammogram 2009 Pneumococcal Immunization (5 0+ years) (1 of 1 - PCV) 2009 Zoster Immunization (1 of 2) 2009 Influenza Immunization (#1) 2024 SARS-COV-2 Immunization ( season) 2024 02/06/2021, 01/09/2021 Respiratory Syncytial Virus (RSV) Immunization (Adult) (1 - 1-dose 75+ series) 2034 Hepatitis B Immunization Aged Out No longer eligible based on patient's age to complete this topic Meningococcal Immunization (ACWY) Aged Out No longer eligible b ased on patient's age to complete this topic Pneumococcal Immunization Combined Aged Out No longer eligible b ased on patient's age to complete this topic Rotavirus Immunization Aged Out No lo nger eligible based on patient's age to complete this topic
--- OUTSIDE RECORDS SUMMARY | 2025-04-19 12:50 | XMS_ITS | Clinical Summary ---
Author Organization [facility] Address [address] [facility] [place] [address] Care Team Providers Care Emerging Solutions Executive Name Role Phone Monster Garza MD Primary Care Provider + Source Comments [facility],non-owned Affiliates and Associated Physician Practices is amultiple site organization consisting of ambulatory clinics and hospital sitesin [place], [place], [place] and [place]. This disclosure is being madepursuant to the Care Everywhere program and may not contain all information available regarding this patient. Last updated 18.[facility] [employer] Allergies No known active allergies Social History Tobacco Use Types Packs/Day Years Used Date Smoking Tobacco: Never Assessed Comments Unknown Sex and Gender Information Value Date Recorded Sex Assigned at Not on file Legal Sex Female 9:52 AM CDT Gender Identity Not on file Sexual Orientation Not on file Plan of Treatment Health Maintenance Due Date Last Done Comments BONE DENSITY TESTING 1959 COLOGUARD (AGES 45-75) - COL ON CA SCREENING 1959 COLON MONITORING 1959 COLONOSCOPY - COLON CA SCREENING 1959 CT COLONOGRAPHY - COLON CA SCREENING 1959 Colorectal Cancer Screening 1959 FIT - COLON CA SCREENING 1959 FLEX SIG - COLON CA SCREENING 1959 MAMMOGRAM 1959 HIV SCREENING 1974 DTAP/TDAP/TD VACCINES (1 - Tdap) 1978 PNEUMOCOCCAL VACCINE 50+ (1 of 2 - PCV) 1978 HEPATITIS B VACCINE (1 of 3 - Risk Dialysis 4-dose series) 1979 PAP SMEAR 1980 ZOSTER VACCINE (1 of 2) 2009 COVID-19 VACCINE (2023-2 5 season) 2024 DEPRESSION SCREENING 10/10/2024 INFLUENZA VACCINE (#1) 2025 LIPID TESTING 06/02/2028 06/02/2023 Respiratory Syncytial Virus (RSV) Vaccine Pt: or over 60 yrs (1 - 1-dose 75+ series) 2034 HEPATITIS C SCREENING Completed 06/02/2023 HIB VACCINE Aged Out No longer eligi ble based on patient's age to complete this topic HPV VACCINE Aged Out No longer eligi ble based on patient's age to complete this topic MENINGOCOCCAL (Group B) VACC INE SHARED DECISION-MAKING Aged Out No longer eligibl e based on patient's age to complete this topic MENINGOCOCCAL GROUPS A/C/Y/W VACCINE Aged Out No longer eligible b ased on patient's age to complete this topic Insurance [facility] Care Teams Emerging Solutions Executive Relationship Specialty Start Date End Date Monster Garza MD [address] [place] [address] [address] [place] [address] PCP - General 12/30/20
--- OUTSIDE RECORDS SUMMARY | 2025-04-19 12:50 | XMS_ITS | Clinical Summary ---
Author Organization [facility] Address [address] [place] [address] Phone Care Team Providers Care Magician/Illusionist Name Role Phone Monster Rocha MD Primary Care Provider +1- [phone] Allergies No known active allergies Medications metFORMIN XR 500 MG 24 hr tablet Take 500 mg by mouth 1 (one) time each day 01/04/2022 Active buPROPion XL (WELLBUTRIN XL) 300 MG 24 hr tablet Take 300 mg by mouth 1 (one) time each day 11/16/2021 Active glimepiride (AMARYL) 2 MG tablet Take 2 mg by mouth 2 (two) times a day 12/01/2021 Active rosuvastatin (CRESTOR) 20 MG tablet Take 20 mg by mouth 1 (one) time each day 11/15/2021 Active venlafaxine XR (EFFEXOR-XR) 150 MG 24 hr capsule Take 150 mg by mouth 1 (one) time each day 01/04/2022 Active verapamil ER (VERELAN) 240 MG 24 hr capsule Take 240 mg by mouth 1 (one) time each day 11/17/2021 Active lisinopril (PRINIVIL) 40 MG tablet Take 40 mg by mouth 1 (one) time each day 11/07/2021 Active cloNIDine (CATAPRES) 0.1 MG tablet Take 1 tablet (0.1 mg total) by mouth every night 30 tablet 2 03/09/2022 Active labetalol (NORMODYNE) 200 MG tablet Take 1 tablet (200 mg total) by mouth in the morning and 1 tablet (200 mg total) in the evening. 60 tablet 11 08/12/2022 Active Active Problems Problem Noted Date Diagnosed Date Chronic kidney disease stage 3B 01/11/2022 Hypercalcemia 01/11/2022 Resolved Problems Problem Noted Date Diagnosed Date Resolved Date Nonspecific abnormal results of function study of kidney 10/09/2020 01/11/2022 Family History Medical History Relation Comments Kidney disease Neg Hx Social History Tobacco Use Types Packs/Day Years Used Date Smoking Tobacco: Former Smokeless Tobacco: Never Tobacco Cessation:Counseling Given: Not Answered Alcohol Use Standard Drinks/Week Comments Yes 0 (1 standard drink = 0.6 oz pur e alcohol) occasionally Comments Unknown Sex and Gender Information Value Date Recorded Sex Assigned at Not on file Legal Sex Female 8:00 AM MST Gender Identity Not on file Sexual Orientation Not on file Last Filed Vital Signs Vital Sign Reading Time Taken Comments Blood Pressure 142/70 08/12/2022 10:43 AM CDT Pulse 72 08/12/2022 10:43 AM CDT Temperature 35.9 C (96.6 F) 08/12/2022 10:43 AM CDT Respiratory Rate - - Oxygen Saturation - - Inhaled Oxygen Concentration - - Weight 109 kg (241 lb) 08/12/2022 10:43 AM CDT Height 165.1 cm (5' 5) 08/12/2022 10:43 AM CDT Body Mass Index 40.1 08/12/2022 10:43 AM CDT Plan of Treatment Health Maintenance Due Date Last Done Comments Pneumococcal PPSV23/PCV13 65 + Years / Low and Medium Risk (1 of 2 - PCV) 2009 Influenza Vaccine (#1) 2025 Insurance [facility] [address] Care Teams Magician/Illusionist Relationship Specialty Start Date End Date Monster Rocha MD [address] [address] PCP - General Family Medicine 08/19/20
--- OUTSIDE RECORDS SUMMARY | 2025-04-19 12:50 | XMS_ITS | Clinical Summary ---
Author Organization [facility] [address] [place] [address] Care Team Providers Care Outbound Call Center Representative Name Role Phone Monster Garza MD Primary [...] limited to bleeding, infection, nerve injury, stroke, [place], communicated the patient with full understanding. She wished to proceed Surgical History Surgery Date Site/Laterality Comments MASTECTOMY 10/10/2003 - 10/09/2004 Right OTHER SURGICAL HISTORY 08/10/2023 - 2023 Removal RIJ permacath OTHER SURGICAL HISTORY RIJ permacath placement Medical History Medical History Date Comments Breast cancer (HCC) 2003 Right Diabetes mellitus (HCC) Hypertension Chronic kidney disease (CKD) , stage V (HCC) 07/11/2024 Not yet on dialysis. GERD (gastroesophageal reflux disease) Type 2 diabetes mellitus (HCC) P er pt states is controlled, and takes no meds for. History of chemotherapy 2003 Last menstrual period (LMP) > 10 days ago 2003 History of renal dialysis Pt sta ingrid required temporary dialysis in the past, but was able to remain off for about a year. Family History Medical History Relation Name Comments Diabetes Maternal Grandmother COPD Mother Cancer Mother Cancer Mother's Sister Relation Name Status Comments Father Maternal Grandmother Mother Mother's Sister Social History Tobacco Use Types Packs/Day Years Used Date Smoking Tobacco: Former Cigarettes - 1969 Smokeless Tobacco: Never Tobacco Cessation:Counseling Given: Not Answered AUDIT-C Answer Date Recorded Q1: How often do you have a drink containing alc ohol? Never 07/11/2024 Average Number of Drinks Not on file Frequency of Binge Drinking Not on file [...] on file Sexual Orientation Not on file Obstetrics History Last Filed Vital Signs Vital Sign Reading [...] 07/12/2024 12:53 PM CDT Plan of Treatment Health Maintenance Due Date Last Done Comments Breast Cancer Screening-Mammogram 1959 Cervical Cancer Screening 1959 Colon Cancer Screening-Colonoscopy 1959 Depression Screening 1959 Hepatitis C Screening 1959 Osteoporosis Screening-Bone Density Scan 1959 DTaP/Tdap/Td Vaccine (1 - Tdap) 1970 Hepatitis B Screening 1977 Pneumococcal vaccine 65+ (1 of 1 - PCV) 2009 Zoster Vaccine (1 of 2) 2009 Covid-19 Vaccine ( - season) 2024 08/19/2022, 02/06/2021, 01/09/2021 Well Visit 65+ 2024 Influenza Vaccine (Season Ended) 2025 08/19/20, 09/11/2013 Fall Risk Assessment 07/11/2025 07/11/2024 Insurance [id number] [employer] [address] [place] [id number] [facility] [employer] Care Teams Outbound Call Center Representative Relationship Specialty Start Date End Date Monster Garza MD [address] [place] [address] PCP - General Family Medicine 12/16/23
[2025-04-19 12:51] VITALS: BP 120/65; PULSE 80; RESP 16; TEMP 37; O2SAT 100
--- NOTE | 2025-04-19 12:51 | ECG_ITS ---
Test Date: 2025-04-19 13:22:41 Measurements Intervals [place] Rate: 76 P: 48 MA: 198 QRS: -5 QRSD: 108 T: 51 QT: 406 QTc: 459 Interpretive Statements SINUS RHYTHM MINIMAL VOLTAGE CRITERIA FOR LVH, CONSIDER NORMAL VARIANT [MEETS CRITERIA IN ONE OF: R(aVL), S(V1), R(V5), R(V5/V6)+S(V1)] Compared to ECG 04/03/2025 13:16:21 Sinus tachycardia no longer present ST (T wave) deviation no longer present Electronically Signed On 04-19-2025 22:32:37 CDT by Miguelangel Argueta M.D.
[2025-04-19 14:02] LABS: Hematocrit 29.1 % (37.0-47.0); Hemoglobin 8.8 g/dL (12.0-15.0); Immature Granulocyte Percent A 0.5 % (0-0.5); Lymphocytes Absolute Auto 1.25 K/mm3 (0.9-3.2); Mean Corpuscular HGB Conc 30.2 g/dl (32-36); Mean Corpuscular Hemoglobin 29.1 pg (26-34); Mean Corpuscular Volume 96.4 fl (80-100); Nucleated Red Blood Cells Absolute Auto 0.000 K/mm3 (0.0-0.012); Nucleated Red Blood Cells Perc 0.0 % (0.0-0.2); Platelet Count Result 208 k/mm3 (150-375); Red Blood Count 3.02 M/mm3 (4.2-5.4); White Blood Count 7.4 K/mm3 (4.5-10.0)
[2025-04-19 14:23] LABS: Alanine Aminotransferase 13 U/L (6-35); Albumin Level 3.4 g/dL (3.5-5.1); Alkaline Phosphatase 245 U/L (38-126); Anion Gap 9 mmol/L (4-12); Aspartate Amino Transferase 32 U/L (14-36); Bilirubin,Total 1.0 mg/dL (0.2-1.3); Blood Urea Nitrogen 22 mg/dL (7-17); Calcium 9.1 mg/dL (8.4-10.2); Carbon Dioxide 30 mmol/L (22-30); Chloride 94 mmol/L (98-107); Estimated Glomerular Filt Rate 5; Glucose 100 mg/dL (65-110); Potassium 3.5 mmol/L (3.4-5.0); Sodium 133 mmol/L (137-145); Total Protein 6.5 g/dL (6.3-8.2)
--- OUTSIDE RECORDS SUMMARY | 2025-04-19 14:50 | XMS_ITS | Clinical Summary ---
Author Organization [facility] Address [address] [place] [address] Care Team Providers Care Private Inquiry Agent Name Role Phone Monster Garza MD Primary Care Provider + Source Comments [facility],non-owned Affiliates and Associated Physician Practices is amultiple site organization consisting of ambulatory clinics and hospital sitesin [place], [place], [place] and [place]. This disclosure is being madepursuant to the Care Everywhere program and may not contain all information available regarding this patient. Last updated 18.[facility] Allergies No known active allergies Social History [...] patient's age to complete this topic Insurance [facility] Care Teams Private Inquiry Agent Relationship Specialty Start Date End Date Monster Garza MD [address] [place] [address] [address] [place] [address] PCP - General 12/30/20
--- OUTSIDE RECORDS SUMMARY | 2025-04-19 14:50 | XMS_ITS | Data Portability ---
Author Organization [place] [facility] Address [address] [place] [address] Assessment Encounter Date Assessment Date Assessment LastModified by Organization Details LastModified Time 06/01/2023 06/01/2023 Patient sent to ER due to: Severe MEDICAL Complexity (out-patient management NOT appropriate) with potential Life or body function threat Medical System involved: Other Not available 06/01/2023 11:16:35 Plan of Treatment Reminders Order Date Submit Date Provider Last Modified By Organization Details Last Modified Time Details Appointments None recorded. Lab None recorded. Referral None recorded. Procedures None recorded. Surgeries None recorded. Imaging None recorded. Medication Orders ondansetron 8 mg disintegrat ing tablet 2022 023 [email or web address] Not available 17:25:58 ondansetron 8 mg disintegrat ing tablet 2022 023 [email or web address] Not available 12:20:18 Patient TargetsNo targets recorded. Patient Instructions Encounter Date Encounter Id Patient Instructions Last Modified By Organization Details Last Modified Time 06/01/2023 [id number] A healthy lifestyle: care instructions [email or web address] Not available 06/01/2023 12:20:18 GO TO ER IMMEDIATELY You have presented with a condition that would be best served by proceeding immediately to an emergency room (ER). Please proceed there now without delay. 62 y/o female w/ pmhx of diabetes, high cholesterol, hypertensive disorder, and hx of kidney failure presents 7 days of vomiting, hypotension with 4 drugs anti-hypertensive regime, normal EKG, better with zofran, but still needing additional work up to access for other causes of her present symptoms. VITALS: Pulse : 76 bpm T : 97.8 F (36.56 C) RR : 16 O2Sat : 99 % BP : First: 79 / 51 Second: 88 / 58 Not available 06/01/2023 11:35:40 Reason for Referral None Reported. Results Created Date Observation Date Name Description Value Unit Range Abnormal Flag Note LastModifiedBy Organization Detail LastModifiedTime 06/01/20 elect huber diogr am No observ ation record ed. [email or web address] Not Available 05/11 11:40:58 Result Notes None recorded. Problems Name Problem SNOMED Code Status Onset Date Resolution Date Notes Provider Name and Address Organization Details Recorded Time Hypertensive disorder 32432469 Active 2022 COURTNEY Oakley - [facility] 10:54:02 Hypercholestero lemia 90714419 Active 2022 RadhaCOURTNEY Vides - .[facility] 10:54:26 Diabetes mellitus 76366238 Active 2022 COURTNEY Oakley - .[facility] 10:55:12 Notes:hx of kidney failure Problem Notes None recorded. Procedures Surgical History Date Name Laterality Status Provider Name and Address Organization Details Recorded Time 023 Electrocardiogram ( EKG / ECG) completed Radha VALDEZ [facility] 06/01/2023 11:34:18 023 . Sent To ER completed Radha VALDEZ [facility] 06/01/2023 11:09:29 Imaging Results None recorded. Procedure Notes None recorded. Medical Equipment None Reported. Allergies No known drug allergies Medications Name Sig Start Date Stop Date Status Note LastModified by Organization Details LastModified Time venlafaxin e ER 150 mg capsule,ex tended release 24 hr Take 1 capsule every day by oral route. active venlafaxi ne hydrochlo ride ER 150mg Not Available Not Available Not Available hydralazin e 25 mg tablet Take 1 tablet twice a day by oral route. active Not Available Not Available No t Available ondansetro n 8 mg disinte[address] ting tablet Place 1 tablet on the tongue and allow to dissolve once every 8 hours as needed 2022 active Not Available Not Available Not Avai lable bupropion HCl XL 300 mg 24 hr tablet, extended release Take 1 tablet every day by oral route. active Not Available Not Available No t Available sodium bicarbonat e active Not Available Not Available Not Available lisinopril active Not Available Not Av ailable Not Available verapamil active Not Available Not Kelly ilable Not Available labetalol active Not Available Not Kelly ilable Not Available rosuvastat in active Not Available Not Available Not Available Vitals Date Recorded Heart rate Body temperature Respiratory rate Oxygen saturation Oxygen saturation in Arterial blood by Pulse oximetry Body height Body mass index (BMI) Body weight Systolic And Diastolic Systolic And Diastolic Provider Name and Address Organization Details Last Updated DateTime 3 76 /min 97.8 [degF] 16 /min 99 % 99 % 166.37 cm 37.7 kg/m2 846056. 25 g 79/51 mm[Hg] 88/58 mm[Hg] Radha Lewis [place] - .[facility] 3 11:05:20 Social History None recorded. Functional Status None recorded. Mental Status None recorded. Family History Nothing Reported. Medical History No medical history recorded. Gynecological HistoryNo gynecological history recorded. Obstetrics History GPAL:G 0 P 0 0 0 0 Past Encounters Encounter ID Performer Location Encounter Start Date Encounter Closed Date Diagnosis/Indication Diagnosis SNOMED-CT Code Diagnosis ICD10 Code Diagnosis Note [id number] Omar Suleiman [facility] [address] [place] [address] 06/01/2023 10:28:44 06/01/2023 11:36:20 Nausea and vomiting 72996895 R11.2 Low blood pressure 02537 003 I95.9 Health Concerns Section Related Observation LastModified by Organization Detai ls LastModified Time None Recorded Concern Status LastModified by Organization Details LastModified Time None Recorded Advance Directives Directive None Recorded Payers Insurance Date Sequence Insurance Name Policy Number Policy Doran Covered Member ID Doran Member ID Guarantor Name 07/15/2023 1 [employer] (O) [place]ON[place] Gena Pierre [id number] Gena Pierre Notes Date Note Type Note Provider Name and Address Organization Details Recorded Time 06/01/2023 text/html Syncope - cmdReported bypatient.Patient presents for an episode ofsyncope which happened(3 days ago) Pertinent findings:No shortness of breath; No headache; No fever; No diarrhea; No heavy menses;(+) nausea/vomiting;(+ ) dizziness with standing up Chronic conditions considered and addressed:DM (diabetes mellitus); HTN (hypertension)Vomi ting (without diarrhea) - cmdReported bypatient.Patient presents with:Vomiting (without diarrhea) which began(7 days ago) Menstrual history:not menstruating Pertinent findings:No fever; No sweats; No headache; No vomiting blood; No diarrhea; No bloody stool; No possible ingestion of tainted food; No recent travel; No sick contacts; No prior abdominal surgery; No dysuria; No flank pain; No chest pain; No shortness of breath Chronic conditions considered and addressed:DM (diabetes mellitus); HTN (hypertension) 62 y/o female w/ pmhx of kidney failure, hypertensive disorder, high cholesterol, and diabetes ran out of verapamil, skipped about 3 days - started having nausea, falling over, dizziness when standing up, fainting 2-3 times (last time earlier today), coughing. Notes vomiting once a day for the past 7 days after eating. Pt vomited in-office. Denies diarrhea, recent travel, or sick contacts. No hx of heart attacks. COURTNEY Vazquez - .[facility] 06/01/2023 14:05:46 OBGyn Episode No OBEpisode recorded.
--- OUTSIDE RECORDS SUMMARY | 2025-04-19 14:50 | XMS_ITS | Clinical Summary ---
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
--- OUTSIDE RECORDS SUMMARY | 2025-04-19 14:50 | XMS_ITS | Clinical Summary ---
Author Organization [facility] [address] [place] [address] Care Team Providers Care Extension Service Specialist In Charge Name Role Phone Monster Garza MD Primary [...] limited to bleeding, infection, nerve injury, stroke, [place], communicated the patient with full understanding. She [...] 09/11/2013 Fall Risk Assessment 07/11/2025 07/11/2024 Insurance Care Teams Extension Service Specialist In Charge Relationship Specialty Start Date End Date Monster Garza MD [address] [place] [address] PCP - General Family Medicine 12/16/23
--- OUTSIDE RECORDS SUMMARY | 2025-04-19 14:50 | XMS_ITS | Clinical Summary ---
Author Organization [facility] Care Team Providers Care Reconciliation Machine Operator Name Role Phone Unavailable Primary Care Provider Unavailabl e Social History Tobacco Use Types Packs/Day Years Used Date Smoking Tobacco: Never Assessed Comments Unknown Sex and Gender Information Value Date Recorded Sex Assigned at Not on file Legal Sex Female 3:08 PM EGG TRAYER Gender Identity Not on file Sexual Orientation [...]
--- OUTSIDE RECORDS SUMMARY | 2025-04-19 14:50 | XMS_ITS | Clinical Summary ---
Author Organization [facility] Address [address] [place] [address] Phone Care Team Providers Care Foxpro Developer Name Role Phone Monster Rocha MD Primary Care Provider +1- [phone] Allergies No known active allergies Medications metFORMIN [...] PCV) 2009 Influenza Vaccine (#1) 2025 Insurance [facility] Care Teams Foxpro Developer Relationship Specialty Start Date End Date Monster Rocha MD [address] [address] PCP - General Family Medicine 08/19/20
--- OUTSIDE RECORDS SUMMARY | 2025-04-19 14:50 | XMS_ITS | Referral Summary ---
Author Organization [facility] [address] [place] [address] Care Team Providers Care Cloud Engineer Name Role Phone Monster Garza MD Primary [...] limited to bleeding, infection, nerve injury, stroke, [place], communicated the patient with full understanding. She [...] Plan of Treatment Not on file Insurance [facility] [employer] [place] Care Teams Cloud Engineer Relationship Specialty Start Date End Date Monster Garza MD [address] [place] [address] PCP - General Family Medicine 12/16/23
--- NOTE | 2025-04-19 15:21 | ED_ITS ---
HPI - General Adult General Chief complaint: Syncope Stated complaint: syncope? Time Seen by Provider: 04/19/25 13:15 History of Present Illness HPI narrative: This is a 64-year-old female with a recent stroke resulting severely decreased cognitive function and left-sided weakness and neglect presenting for a possible syncopal episode. She had gone to her dialysis unit today and while where she all a her eyes rolled back in her head and she started to slide on the wheelchair. She did not fall to the ground. They then sent her to the ER for evaluation. Adry Luis (cousin / power of structural biologist) is at bedside. We discussed goals of care and given the patient's very poor quality of life, significantly decreased cognitive status, and neurologic deficits. Family notes that her cognitive status is continuing to decline since initial stroke in late March. She no longer has the mental status to converse with them normally they do not feel that this is family member that they grew up with. The power of structural biologist does not believe that she would want aggressive medical care to prolong her life. Patient has been made comfort measures. Related Data Allergies Allergy/AdvReac Type Severity Reaction Status Date / Time lactose AdvReac Mild Gastrointestinal Verified 04/08/25 13:28 Upset PMFSH Past Medical History Medical History Fall Acute right arterial ischemic stroke, MCA (middle cerebral artery) Chronic kidney disease, stage 5 Cancer of right breast (2004) Status post chemotherapy and mastectomy. Diabetic peripheral neuropathy Obesity (BMI 30-39.9) Essential hypertension End-stage renal disease on hemodialysis Chronic kidney disease due to hypertension and diabetes with final insult kidneys with severe rhabdomyolysis March 2023. Vitamin D deficiency Type 2 diabetes mellitus Anemia Normal colonoscopy (07/2011) Primary hyperparathyroidism (11/2020) Vaginal polyp Depression Anxiety Surgical History Surgical History History of right mastectomy History of hysteroscopy (2020) Family History Family History Mother Family history of lung cancer Hypertension Grandparent Cerebrovascular accident Diabetes mellitus Hypertension Son Family history of cardiovascular disease Heart disease Hypertension Father Unknown family medical history Social History Social History Social History: Surrogate decision maker: Adry Smith (sister). Code status: Full code. Smoking packs per day: 0.5 Smoking cigarettes per day: 10.0 Years smoked: 20 Smoking pack-years: 10.00 Smoking status: Former smoker Tobacco type: cigarettes Second hand tobacco smoke exposure: Yes Alcohol intake: never Alcohol use details: Very seldom Substance use: never Substance use type: does not use Do You Feel Safe in your Home?: Yes Lack of Transportation: No Lack of Food: Never True Current Housing: I Have Housing Concerned About Future Housing: No Difficulty Paying Gas/Electric Bills: No Difficulty Paying for Meds: No Currently Unemployed: No Education: High School Diploma/GED Difficulty w/ Childcare or Family Care: No Additional living arrangements comments: Lives in [place]. Additional occupation/education comments: Retired. Sexual Orientation (if Verbalized by the Patient): Straight or Heterosexual Spiritual care concerns: No Agree to blood products: Yes Exam 2 Narrative: APPEARANCE: No apparent distress. A&O times 1-2, answers are inconsistent with poor insight into her condition Head: atraumatic. EYES: EOMI, left eye is blind NOSE: Atraumatic NECK: Trachea midline RESPIRATORY: No increased rate of breathing CTAB CARDIOVASCULAR: RRR, no peripheral edema ABDOMINAL: Non-distended MUSCULOSKELETAl: No obvious deformities NEURO: Alert. Left-sided neglect, left-sided weakness of the left arm left leg, right arm and right leg with normal function SKIN:: Warm, dry. Normal color PSYCHIATRIC: Normal affect Course Vital Signs Vital signs: Vital Signs Temperature 98.6 F 04/19/25 12:51 Pulse Rate 80 04/19/25 12:51 Respiratory Rate 16 04/19/25 12:51 Blood Pressure 120/65 04/19/25 12:51 Pulse Oximetry 100 04/19/25 12:51 Oxygen Delivery Room Air 04/19/25 12:51 Temperature 98.6 F 04/19/25 12:51 Pulse Rate 80 04/19/25 12:51 Respiratory Rate 16 04/19/25 12:51 Blood Pressure 120/65 04/19/25 12:51 Pulse Oximetry 100 04/19/25 12:51 Oxygen Delivery Room Air 04/19/25 12:51 Medical Decision Making MDM Narrative Medical decision making narrative: -Course: 64-year-old female with severe showed symptoms presenting after a syncopal event. Goals of breath care were discussed with the family and power structural biologist. They do not want aggressive treatment. We discussed hospice care and had a that is what they are leaning towards although they wish to discuss things more with family for arriving tomorrow. Patient will be discharged back to the [facility]. They can return if they wish to pursue more medical care. Screening lab work was ordered per nursing protocol. Read demonstrated her end- stage renal disease. No emergent need for dialysis and she can obtain dialysis at her appointment on Tuesday. She should return if she develops any new or worsening symptoms and they would like to treat them. -DDX includes but is not limited to: Cardiac syncope, dehydration sepsis pneumonia UTI CVA Vital Signs Vital Signs: Vital Signs Temperature 98.6 F 04/19/25 12:51 Pulse Rate 80 04/19/25 12:51 Respiratory Rate 16 04/19/25 12:51 Blood Pressure 120/65 04/19/25 12:51 Pulse Oximetry 100 04/19/25 12:51 Oxygen Delivery Room Air 04/19/25 12:51 Temperature 98.6 F 04/19/25 12:51 Pulse Rate 80 04/19/25 12:51 Respiratory Rate 16 04/19/25 12:51 Blood Pressure 120/65 04/19/25 12:51 Pulse Oximetry 100 04/19/25 12:51 Oxygen Delivery Room Air 04/19/25 12:51 Lab Data 04/19/25 13:51 04/19/25 13:51 Labs: Lab Results 04/19/25 Range/Units 13:51 WBC 7.4 (4.5-10.0) K/mm3 RBC 3.02 L (4.2-5.4) M/mm3 Hgb 8.8 L (12.0-15.0) g/dL Hct 29.1 L (37.0-47.0) % MCV 96.4 (80-100) fl MCH 29.1 (26-34) pg MCHC 30.2 L (32-36) g/dl RDW 14.9 H (11.5-14.5) % Plt Count 208 (150-375) k/mm3 MPV 10.7 H (7.4-10.4) fl Immature Gran % (Auto) 0.5 (0-0.5) % Neut % (Auto) 67.0 (45.5-73.1) % Lymph % (Auto) 16.8 L (18.3-44.2) % [place] % (Auto) 12.0 H (2.6-8.5) % Eos % (Auto) 2.8 (0-4.4) % Baso % (Auto) 0.9 (0.2-1.2) % Lymph # (Auto) 1.25 (0.9-3.2) K/mm3 [place] # (Auto) 0.9 H (0.1-0.6) K/mm3 Eos # (Auto) 0.2 (0-0.3) K/mm3 Baso # (Auto) 0.1 (0.0-0.1) K/mm3 Abs Immat Gran (auto) 0.04 H (0.00-0.031) K/mm3 Absolute Neuts (auto) 5.0 (1.3-6.7) K/mm3 Absolute Nucleated RBC 0.000 (0.0-0.012) K/mm3 Nucleated RBC % 0.0 (0.0-0.2) % Sodium 133 L (137-145) mmol/L Potassium 3.5 (3.4-5.0) mmol/L Chloride 94 L (98-107) mmol/L Carbon Dioxide 30 (22-30) mmol/L Anion Gap 9 (4-12) mmol/L BUN 22 H D (7-17) mg/dL Creatinine 7.75 H (0.7-1.0) mg/dL Estim Creat Clear Calc Not Reportable Estimated GFR 5 L (59 - ) Glucose 100 (65-110) mg/dL Calcium 9.1 (8.4-10.2) mg/dL Total Bilirubin 1.0 (0.2-1.3) mg/dL AST 32 (14-36) U/L ALT 13 (6-35) U/L Alkaline Phosphatase 245 H (38-126) U/L Total Protein 6.5 (6.3-8.2) g/dL Albumin 3.4 L (3.5-5.1) g/dL Discharge Plan Discharge Clinical Impression: Syncope, CVA (cerebral vascular accident), Hemiplegia Patient Disposition: Home Condition: Stable Instructions: Antibiotic Form, Syncope (DC) Additional Instructions: Gena was seen in the ED after syncopal event. After discussing matters with her family and power of structural biologist they do not want to a pursue aggressive care. They would like to pursue hospice measures. They will discuss this further with her family tomorrow. If she develops any new or worsening symptoms or they would like further medical treatment they should return to the ED for re- evaluation. Patient Language: Citizen Of [place] Prescriptions: No Action atorvastatin 40 mg Tablet 40 mg PO DAILY Qty: 30 0RF clopidogrel 75 mg Tablet 75 mg PO QAM Qty: 30 0RF aspirin 81 mg Tablet,Delayed Release (Dr/Ec) 81 mg PO QAM Qty: 30 0RF cinacalcet [Sensipar] 30 mg Tablet 30 mg PO Q24H Qty: 30 0RF lisinopril 20 mg Tablet 20 mg PO QAM Qty: 30 0RF sodium bicarbonate 650 mg Tablet 1,300 mg PO BIDPC Qty: 60 0RF carvedilol 12.5 mg tablet 12.5 mg PO Q12H Qty: 180 3RF Rx Instructions: must administer with a meal/food venlafaxine 150 mg capsule,extended release 24hr See Rx Instructions .ROUTE .COMPLEX Qty: 90 1RF Dose Instruction: TAKE 1 CAPSULE BY MOUTH DAILY Rx Instructions: TAKE 1 CAPSULE BY MOUTH DAILY Follow-up/Referrals: Monster Garza MD [Primary Care Provider] -
--- NOTE | 2025-04-19 18:34 | PCCCNOTE ---
Called to the ED to speak with pt and family about hospice care. Pt niece is her POA and is at bedside. Pt resides at [facility] rehab at this time. The decision was made to send pt back to [facility] until the family can decide if they are ready for hospice or not. I gave them the list of Hospice providers. No further questions at this time.
== END 2025-04-19 16:55 ==
PROVIDERS: Emergency Medicine; Emergency Provider Emergency Medicine; PCP Family Medicine Adolescent Medicine
DX: R55 Syncope and collapse (principal); I69.354 Hemiplegia and hemiparesis following cerebral infarction affecting left non-dominant side; I69.319 Unspecified symptoms and signs involving cognitive functions following cerebral infarction; E11.22 Type 2 diabetes mellitus with diabetic chronic kidney disease; I12.0 Hypertensive chronic kidney disease with stage 5 chronic kidney disease or end stage renal disease; N18.6 End stage renal disease; Z99.2 Dependence on renal dialysis; E11.42 Type 2 diabetes mellitus with diabetic polyneuropathy; E21.3 Hyperparathyroidism, unspecified; E55.9 Vitamin D deficiency, unspecified; F41.9 Anxiety disorder, unspecified; F32.A Depression, unspecified; Z85.3 Personal history of malignant neoplasm of breast; Z92.21 Personal history of antineoplastic chemotherapy; Z87.891 Personal history of nicotine dependence; Z90.11 Acquired absence of right breast and nipple; Z79.82 Long term (current) use of aspirin; Z79.899 Other long term (current) drug therapy; Z79.02 Long term (current) use of antithrombotics/antiplatelets
CPT/HCPCS: 36415; 71046; 80053; 85025; 93005; 99284

== ENCOUNTER 2025-04-27 18:45 | Emergency (ER) | payer MEDICARE, SELFPAY ==
--- NOTE | ~2025-04-27 | CT_ITS ---
CT head without contrast Indication: Status post fall COMPARISON: 04/11/2025 Technique: Serial scans were obtained through the brain without the administration of contrast. Dose reduction technique was used on this scan by utilizing automated exposure control and iterative recon struction technique. The dose-length product (DLP) was 605.33 mGy-cm. Findings: Suspected tiny amount of acute subarachnoid hemorrhage in the superior left frontal lobe re gion.. Stable focal encephalomalacia at the right parietal lobe. The ventricles and subarachnoid spac es are dilated, consistent with mild atrophy. Low attenuation regions are seen within the periventri cular white matter bilaterally, likely representing changes from chronic microvascular ischemic disea se. There is no evidence of edema, mass effect or midline shift. The visualized paranasal sinuses a nd mastoid air cells are clear. Impression: Suspected tiny amount of acute subarachnoid hemorrhage in the superior left frontal lobe region. Stable encephalomalacia right parietal lobe. Atrophy and chronic white matter changes, as above. Reviewed, dictated and finalized at location . Impression: Suspected tiny amount of acute subarachnoid hemorrhage in the superior left fro ntal lobe region. Stable encephalomalacia right parietal lobe. Atrophy and chronic white matter changes, as above.
--- OUTSIDE RECORDS SUMMARY | 2025-04-27 18:47 | XMS_ITS | Clinical Summary ---
Author Organization [facility] [address] [place] [id number] Care Team Providers Care Financial Aid Advisor Name Role Phone Monster Garza MD Primary [...] limited to bleeding, infection, nerve injury, stroke, CA, communicated the patient with full understanding. She wished to proceed Encounters Date Type Department Care Team Description 04/25/2025 Telephone [facility] [address] [facility] [address] [place] [address] [place] [address] Gurwinder Centeno MD PhD from Last 3 Months Surgical History Surgery Date Site/Laterality Comments MASTECTOMY [...] Vaccine (1 of 2) 2009 Covid-19 Vaccine (4 - season) 2024 08/19/2022, 02/06/2021, 01/09/2021 Well Visit 65+ 2024 Influenza Vaccine (#1) 2025 08/19/2022, 2012 Fall Risk Assessment 07/11/2025 07/11/2024 Insurance [facility] Care Teams Financial Aid Advisor Relationship Specialty Start Date End Date Monster Garza MD [address] [place] [address] PCP - General Family Medicine 12/16/23
--- OUTSIDE RECORDS SUMMARY | 2025-04-27 18:47 | XMS_ITS | Clinical Summary ---
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
--- OUTSIDE RECORDS SUMMARY | 2025-04-27 18:47 | XMS_ITS ---
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 Ordering Clinician Indication Dosage Frequency Signature (SIG) Comments Components Mircera 04-19 18:08: 52 Yes [id number] Number of Repeats Allowed: Frequency: MARCO dosing, every two weeks Venofer 04-19 18:08: 24 Yes [id number] Number of Repeats Allowed: Frequency: One time a weekDosesO rdered: Maintenanc e Dose 50 Milligram Route: Intravenou s Oxygen 04-10 20:03: 16 Yes [id number] Number of Repeats Allowed: Frequency: As needed ondansetron hydrochlori de 04-10 20:02: 56 Yes [id number] Number of Repeats Allowed: Frequency: Every 4 hours as needed Insta-Gluco se 04-10 20:02: 26 Yes [id number] Number of Repeats Allowed: Frequency: Every 30 minutes as needed diphenhydra mine hydrochlori de 04-10 20:01: 27 Yes [id number] Number of Repeats Allowed: Frequency: Every 30 minutes as needed Antacid Extra Strength 04-10 19:49: 53 Yes [id number] Number of Repeats Allowed: Frequency: Every 4 hours as needed acetaminoph en 04-10 19:49: 20 Yes [id number] Number of Repeats Allowed: Frequency: Every 4 hours as needed heparin sodium, porcine 04-10 19:48: 04 Yes [id number] Number of Repeats Allowed: Frequency: Every Dialysis TreatmentD osesOrdere d: Hourly Dose 500 Units/Hr 1:1000 Units/mLRo devante: Intravenou s heparin sodium, porcine 04-10 19:48: 04 Yes [id number] Number of Repeats Allowed: Frequency: Every Dialysis TreatmentD osesOrdere d: Loading Dose 1000 Units 1:1000 Units/mLRo devante: Intravenou s Problems This patient has no known problems. Procedures Procedure Date / Time Performed Performing Clinician Chelita ce Details Central Venous Catheter (CVC) 2023-04-15 05:00:00 Access Site Chest (Left) Access Use Start Date 2023-04-15 05:00:0 0 Access Use End Date 2023-05-10 05:00:00 Central Venous Catheter (CVC)2023-04-13 05:00:00 Access Site Chest (Right) Access Use Start Date 2023-04-13 05:00:0 0 DIALYSIS TREATMENT INFORMATION Conventional Hemodialysis Date Type Treatment Start Date Treatment End Date Pre-Treatment Vitals Post-Treatment Vitals Weight Gain BFR DFR Actual UF Dialysis Access April 26, 2025 In-Ce nter Hemod ialys is Treat ment 2025-04-26 T17:48:30. 000Z 2025-04-26 T21:18:30. 000Z BP Sitting (Pre-Dialysis) 118/60 mmHg BP Sitting (Post-D ialysis ) 137/ 69 mmHg Sitting Heart Rate Pre-Dialysis 78 BPM Sitting H eart Rate Post-Dialysis 66 BPM Temperature Pre-Dialysis 97.8 degF Temperature Post -Dialysis 97.1 degF April 24, 2025 In-Center Hemodialysis Treatment 8843-04-22C07:06:12.000Z 3330-89-73W28:36:37.000Z BP Sitting (Pre-Dialysis) 127/49 mmHg BP Sitting (Post-Dialysis) 167/88 mmHg Concurrent Access: falseCentral Venous Catheter (CVC) Chest (Right) Arterial Sitting Heart Rate Pre-Dialysis 65 BPM Sitting H eart Rate Post-Dialysis 74 BPM Temperature Pre-Dialysis 97.5 degF Temperature Post -Dialysis 97.6 degF April 22, 2025 In-Center Hemodialysis Treatment 6718-21-45V25:52:49.000Z 0621-38-24Y95:22:49.000Z BP Sitting (Pre-Dialysis) 150/77 mmHg BP Sitting (Post-Dialysis) 193/89 mmHg Concurrent Access: falseCentral Venous Catheter (CVC) Chest (Right) Arterial Sitting Heart Rate Pre-Dialysis 76 BPM Sitting H eart Rate Post-Dialysis 75 BPM Temperature Pre-Dialysis 97.2 degF Temperature Post -Dialysis 97.7 degF April 17, 2025 In-Center Hemodialysis Treatment 7822-90-80Z28:43:34.000Z 6989-78-66F04:13:34.000Z BP Sitting (Pre-Dialysis) 142/77 mmHg BP Sitting (Post-Dialysis) 186/71 mmHg Concurrent Access: falseCentral Venous Catheter (CVC) Chest (Right) Arterial Sitting Heart Rate Pre-Dialysis 77 BPM Sitting H eart Rate Post-Dialysis 75 BPM Temperature Pre-Dialysis 97.3 degF Temperature Post -Dialysis 97.2 degF April 15, 2025 In-Center Hemodialysis Treatment [id number]:58:01.000Z 4402-56-06B06:25:31.000Z BP Sitting (Pre-Dialysis) 143/80 mmHg BP Sitting (Post-Dialysis) 160/87 mmHg Concurrent Access: falseCentral Venous Catheter (CVC) Chest (Right) Arterial Sitting Heart Rate Pre-Dialysis 82 BPM Sitting H eart Rate Post-Dialysis 87 BPM Temperature Pre-Dialysis 97.9 degF Temperature Post -Dialysis 98.2 degF August 02, 2023 In-Center Hemodialysis Treatment 9400-23-54F92:36:05.000Z 6464-63-00Y19:26:55.000Z BP Sitting (Pre-Dialysis) 184/98 mmHg BP Sitting (Post-Dialysis) 162/100 mmHg Concurrent Access: falseCentral Venous Catheter (CVC) Chest (Right) Arterial BP Standing (Pre-Dialysis) 157/92 mmHg BP Standing (P ost-Dialysis) 144/89 mmHg Sitting Heart Rate Pre-Dialysis 84 BPM Sitting Heart Rate Post-Dialysis 78 BPM Standing Heart Rate Pre-Dialysis 95 BPM Standing Heart Rate Post-Dialysis 88 BPM Temperature Pre-Dialysis 98.1 degF Temperature Post -Dialysis 97.8 degF July 28, 2023 In-Center Hemodialysis Treatment 7013-70-97Y31:14:59.000Z 7252-71-60C03:44:34.000Z BP Sitting (Pre-Dialysis) 177/90 mmHg BP Sitting (Post-Dialysis) 157/89 mmHg Concurrent Access: falseCentral Venous Catheter (CVC) Chest (Right) Arterial BP Standing (Pre-Dialysis) 123/68 mmHg BP Standing (P ost-Dialysis) 148/70 mmHg Sitting Heart Rate Pre-Dialysis 89 BPM Sitting Heart Rate Post-Dialysis 82 BPM Standing Heart Rate Pre-Dialysis 102 BPM Standing Heart Rate Post-Dialysis 96 BPM Temperature Pre-Dialysis 97 degF Temperature Post -Dialysis 97.6 degF July 26, 2023 In-Center Hemodialysis Treatment 6125-10-07I63:04:00.000Z 7201-76-27O78:38:49.000Z BP Sitting (Pre-Dialysis) 169/86 mmHg BP Sitting (Post-Dialysis) 172/85 mmHg Concurrent Access: falseCentral Venous Catheter (CVC) Chest (Right) Arterial BP Standing (Pre-Dialysis) 159/85 mmHg BP Standing (P ost-Dialysis) 136/104 mmHg Sitting Heart Rate Pre-Dialysis 83 BPM Sitting Heart Rate Post-Dialysis 78 BPM Standing Heart Rate Pre-Dialysis 94 BPM Standing Heart Rate Post-Dialysis 99 BPM Temperature Pre-Dialysis 98.2 degF Temperature Post -Dialysis 98 degF July 23, 2023 In-Center Hemodialysis Treatment 2548-73-86L77:11:38.000Z 6563-11-42P84:41:38.000Z BP Sitting (Pre-Dialysis) 239/107 mmHg BP Sitting (Post-Dialysis) 175/88 mmHg Concurrent Access: falseCentral Venous Catheter (CVC) Chest (Right) Arterial BP Standing (Pre-Dialysis) 226/108 mmHg BP Standing (P ost-Dialysis) 121/93 mmHg Sitting Heart Rate Pre-Dialysis 117 BPM Sitting Heart Rate Post-Dialysis 107 BPM Standing Heart Rate Pre-Dialysis 129 BPM Standing Heart Rate Post-Dialysis 145 BPM Temperature Pre-Dialysis 98.2 degF Temperature Post -Dialysis 97.3 degF July 21, 2023 In-Center Hemodialysis Treatment 2828-59-03N58:14:34.000Z 2769-24-86Q05:44:09.000Z BP Sitting (Pre-Dialysis) 177/67 mmHg BP Sitting (Post-Dialysis) 153/81 mmHg Concurrent Access: falseCentral Venous Catheter (CVC) Chest (Right) Arterial Sitting Heart Rate Pre-Dialysis 128 BPM BP Standing (Post-Dialysis) 143/91 mmHg Temperature Pre-Dialysis 97.5 degF Sitting Heart Ra te Post-Dialysis 105 BPM Standing Heart Rate Post-Felecia lysis 115 BPM Temperature Post-Dialysis 97 .2 degF July 19, 2023 In-Center Hemodialysis Treatment 8679-57-23Z74:13:00.000Z 6590-79-48A41:48:17.000Z BP Sitting (Pre-Dialysis) 186/96 mmHg BP Sitting (Post-Dialysis) 152/86 mmHg Concurrent Access: falseCentral Venous Catheter (CVC) Chest (Right) Arterial BP Standing (Pre-Dialysis) 175/91 mmHg BP Standing (P ost-Dialysis) 146/81 mmHg Sitting Heart Rate Pre-Dialysis 114 BPM Sitting Heart Rate Post-Dialysis 105 BPM Standing Heart Rate Pre-Dialysis 120 BPM Standing Heart Rate Post-Dialysis 119 BPM Temperature Pre-Dialysis 98.1 degF Temperature Post -Dialysis 97.6 degF July 16, 2023 In-Center Hemodialysis Treatment 0082-79-00A68:01:00.000Z 2073-68-30O13:39:19.000Z BP Sitting (Pre-Dialysis) 197/103 mmHg BP Sitting (Post-Dialysis) 176/93 mmHg Concurrent Access: falseCentral Venous Catheter (CVC) Chest (Right) Arterial BP Standing (Pre-Dialysis) 173/105 mmHg BP Standing (P ost-Dialysis) 156/82 mmHg Sitting Heart Rate Pre-Dialysis 111 BPM Sitting Heart Rate Post-Dialysis 107 BPM Standing Heart Rate Pre-Dialysis 130 BPM Standing Heart Rate Post-Dialysis 121 BPM Temperature Pre-Dialysis 97.9 degF Temperature Post -Dialysis 98 degF July 14, 2023 In-Center Hemodialysis Treatment 4185-27-71U02:40:59.000Z 8502-05-69W43:10:59.000Z BP Sitting (Pre-Dialysis) 200/101 mmHg BP Sitting (Post-Dialysis) 197/70 mmHg Concurrent Access: falseCentral Venous Catheter (CVC) Chest (Right) Arterial BP Standing (Pre-Dialysis) 182/103 mmHg BP Standing (P ost-Dialysis) 133/81 mmHg Sitting Heart Rate Pre-Dialysis 115 BPM Sitting Heart Rate Post-Dialysis 106 BPM Standing Heart Rate Pre-Dialysis 132 BPM Standing Heart Rate Post-Dialysis 127 BPM Temperature Pre-Dialysis 97.7 degF Temperature Post -Dialysis 97.6 degF July 12, 2023 In-Center Hemodialysis Treatment 9929-09-24B86:33:00.000Z 0122-02-72N10:02:58.000Z BP Sitting (Pre-Dialysis) 180/94 mmHg BP Sitting (Post-Dialysis) 158/99 mmHg Concurrent Access: falseCentral Venous Catheter (CVC) Chest (Right) ArterialCentral Venous Catheter (CVC) Chest (Left) Venous BP Standing (Pre-Dialysis) 167/88 mmHg BP Standing (P ost-Dialysis) 147/77 mmHg Sitting Heart Rate Pre-Dialysis 113 BPM Sitting Heart Rate Post-Dialysis 110 BPM Standing Heart Rate Pre-Dialysis 123 BPM Standing Heart Rate Post-Dialysis 119 BPM Temperature Pre-Dialysis 97.9 degF Temperature Post -Dialysis 98 degF May 10, 2023 In-Center Hemodialysis Treatment 7431-91-24E39:15:00.000Z 7372-89-28T03:51:26.000Z BP Sitting (Pre-Dialysis) 134/63 mmHg BP Sitting (Post-Dialysis) 108/58 mmHg Concurrent Access: falseCentral Venous Catheter (CVC) Chest (Right) ArterialCentral Venous Catheter (CVC) Chest (Left) Venous BP Standing (Pre-Dialysis) 112/54 mmHg Sitti ng Heart Rate Post-Dialysis 76 BPM Sitting Heart Rate Pre-Dialysis 81 BPM Temperatu re Post-Dialysis 97.8 degF Standing Heart Rate Pre-Dialysis 83 BPM Temperature Pre-Dialysis 97.6 degF May 07, 2023 In-Center Hemodialysis Treatment 5070-44-95J39:02:00.000Z 5057-38-53C70:16:36.000Z BP Sitting (Pre-Dialysis) 128/58 mmHg BP Sitting (Post-Dialysis) 142/66 mmHg Concurrent Access: falseCentral Venous Catheter (CVC) Chest (Right) ArterialCentral Venous Catheter (CVC) Chest (Left) Venous Sitting Heart Rate Pre-Dialysis 75 BPM BP Standing (Post-Dialysis) 103/59 mmHg Temperature Pre-Dialysis 97.2 degF Sitting Heart Ra te Post-Dialysis 80 BPM Standing Heart Rate Post-Felecia lysis 83 BPM Temperature Post-Dialysis 97 .6 degF May 05, 2023 In-Center Hemodialysis Treatment 1372-77-30Y19:25:00.000Z 0071-16-59Y15:57:36.000Z BP Sitting (Pre-Dialysis) 161/78 mmHg BP Sitting (Post-Dialysis) 134/72 mmHg Concurrent Access: falseCentral Venous Catheter (CVC) Chest (Right) ArterialCentral Venous Catheter (CVC) Chest (Left) Venous BP Standing (Pre-Dialysis) 112/58 mmHg BP Standing (P ost-Dialysis) 107/59 mmHg Sitting Heart Rate Pre-Dialysis 87 BPM Sitting Heart Rate Post-Dialysis 82 BPM Standing Heart Rate Pre-Dialysis 92 BPM Standing Heart Rate Post-Dialysis 92 BPM Temperature Pre-Dialysis 97.6 degF Temperature Post -Dialysis 97.8 degF May 03, 2023 In-Center Hemodialysis Treatment 9578-12-42V71:50:00.000Z 7307-07-69W14:22:20.000Z BP Sitting (Pre-Dialysis) 142/68 mmHg BP Sitting (Post-Dialysis) 128/65 mmHg Concurrent Access: falseCentral Venous Catheter (CVC) Chest (Right) ArterialCentral Venous Catheter (CVC) Chest (Left) Venous BP Standing (Pre-Dialysis) 121/52 mmHg BP Standing (P ost-Dialysis) 99/72 mmHg Sitting Heart Rate Pre-Dialysis 86 BPM Sitting Heart Rate Post-Dialysis 76 BPM Standing Heart Rate Pre-Dialysis 86 BPM Standing Heart Rate Post-Dialysis 79 BPM Temperature Pre-Dialysis 97.8 degF Temperature Post -Dialysis 97.3 degF April 30, 2023 In-Center Hemodialysis Treatment 0772-37-80O52:54:00.000Z 2040-83-33P86:40:49.000Z BP Sitting (Pre-Dialysis) 181/94 mmHg BP Sitting (Post-Dialysis) 185/90 mmHg Concurrent Access: falseCentral Venous Catheter (CVC) Chest (Right) ArterialCentral Venous Catheter (CVC) Chest (Left) Venous BP Standing (Pre-Dialysis) 172/90 mmHg BP Standing (P ost-Dialysis) 168/94 mmHg Sitting Heart Rate Pre-Dialysis 97 BPM Sitting Heart Rate Post-Dialysis 88 BPM Standing Heart Rate Pre-Dialysis 103 BPM Standing Heart Rate Post-Dialysis 98 BPM Temperature Pre-Dialysis 98 degF Temperature Post -Dialysis 97.1 degF April 28, 2023 In-Center Hemodialysis Treatment 0489-84-22J66:09:35.000Z 2985-22-70C32:54:35.000Z BP Sitting (Pre-Dialysis) 156/81 mmHg BP Sitting (Post-Dialysis) 142/72 mmHg Concurrent Access: falseCentral Venous Catheter (CVC) Chest (Right) ArterialCentral Venous Catheter (CVC) Chest (Left) Venous BP Standing (Pre-Dialysis) 130/72 mmHg BP Standing (P ost-Dialysis) 122/69 mmHg Sitting Heart Rate Pre-Dialysis 98 BPM Sitting Heart Rate Post-Dialysis 75 BPM Standing Heart Rate Pre-Dialysis 99 BPM Standing Heart Rate Post-Dialysis 83 BPM Temperature Pre-Dialysis 98.3 degF Temperature Post -Dialysis 97.2 degF April 26, 2023 In-Center Hemodialysis Treatment 6883-67-58V55:04:00.000Z 3568-07-32Z54:46:33.000Z BP Sitting (Pre-Dialysis) 168/81 mmHg BP Sitting (Post-Dialysis) 154/73 mmHg Concurrent Access: falseCentral Venous Catheter (CVC) Chest (Right) ArterialCentral Venous Catheter (CVC) Chest (Left) Venous BP Standing (Pre-Dialysis) 150/78 mmHg BP Standing (P ost-Dialysis) 111/59 mmHg Sitting Heart Rate Pre-Dialysis 96 BPM Sitting Heart Rate Post-Dialysis 80 BPM Standing Heart Rate Pre-Dialysis 97 BPM Standing Heart Rate Post-Dialysis 81 BPM Temperature Pre-Dialysis 98.1 degF Temperature Post -Dialysis 98 degF April 23, 2023 In-Center Hemodialysis Treatment [id number]:59:18.000Z 6300-84-37D20:59:18.000Z BP Sitting (Pre-Dialysis) 161/75 mmHg BP Sitting (Post-Dialysis) 169/76 mmHg Concurrent Access: falseCentral Venous Catheter (CVC) Chest (Right) ArterialCentral Venous Catheter (CVC) Chest (Left) Venous BP Standing (Pre-Dialysis) 155/63 mmHg BP Standing (P ost-Dialysis) 167/78 mmHg Sitting Heart Rate Pre-Dialysis 89 BPM Sitting Heart Rate Post-Dialysis 76 BPM Standing Heart Rate Pre-Dialysis 91 BPM Standing Heart Rate Post-Dialysis 76 BPM Temperature Pre-Dialysis 97.4 degF Temperature Post -Dialysis 97.6 degF April 21, 2023 In-Center Hemodialysis Treatment 0133-57-52J86:53:01.000Z 7964-88-47Z72:47:00.000Z BP Sitting (Pre-Dialysis) 187/89 mmHg BP Sitting (Post-Dialysis) 169/73 mmHg Concurrent Access: falseCentral Venous Catheter (CVC) Chest (Right) ArterialCentral Venous Catheter (CVC) Chest (Left) Venous BP Standing (Pre-Dialysis) 195/96 mmHg BP Standing (P ost-Dialysis) 98/64 mmHg Sitting Heart Rate Pre-Dialysis 106 BPM Sitting Heart Rate Post-Dialysis 96 BPM Standing Heart Rate Pre-Dialysis 107 BPM Standing Heart Rate Post-Dialysis 99 BPM Temperature Pre-Dialysis 97.9 degF Temperature Post -Dialysis 97.6 degF April 16, 2023 In-Center Hemodialysis Treatment [id number]:03:00.000Z 3199-52-65R18:35:27.000Z BP Sitting (Pre-Dialysis) 231/104 mmHg BP Sitting (Post-Dialysis) 177/86 mmHg Concurrent Access: falseCentral Venous Catheter (CVC) Chest (Left) ArterialCentral Venous Catheter (CVC) Chest (Right) Venous BP Standing (Pre-Dialysis) 191/113 mmHg BP Standing (P ost-Dialysis) 154/90 mmHg Sitting Heart Rate Pre-Dialysis 101 BPM Sitting Heart Rate Post-Dialysis 84 BPM Standing Heart Rate Pre-Dialysis 103 BPM Standing Heart Rate Post-Dialysis 99 BPM Temperature Pre-Dialysis 97.9 degF Temperature Post -Dialysis 97.6 degF DIALYSIS ORDER Dialysis Procedure Orders Type of Dialysis Procedure Order Order Date/Time Observations In-Center Hemodialysis Treatment April Target Weight 76.5 kg Dialysate Flow Rate 500 mL/min Blood Flow Rate 400 mL/min Treatment Time 210 min(total) Max UF Rate 13 mL/kg/hr Base Sodium Dialysate Base Sodium 138 mE q/L dialysate_temp 37 C BiCarb Dialysate BiCarbonate 38 meq/L Access Concurrent No Arterial Access Central Venous [place] [facility] (CVC) (Chest (Right)) Venous Access Central Venous [place] [address] (CVC) (Chest (Right)) Dialyzer Eulalia Toney 15H 126 4 treatment_bath_[email or web address] Dialysate Bath Potassium Potassium 3 mEq /L Dialysate Bath Calcium Calcium 2.5 mEq/L Results Adequacy Description Draw Date Result/Unit Status Ref Range Result Comments Creatinine [Mass/volume] in Serum or Plasma 2025-04-25 13:01:30 F Recollect - Shipping temp out of range,Recollect - Shipping temp out of range Total Kt/V 2025-04-16 21:09:54 1.6 F PRESCRIBED DAYS/WEEK 2025-04-16 21:09:54 3 Day/Wk F VT (KT/V TX VOL) 2025-04-16 21:09:54 34.9 L F nPCR 2025-04-16 21:09:54 0.28 G/KG/D F Std Renal KT/V 2025-04-16 21:09:54 N/A F VM (KT/V MEAN VOL) 2025-04-16 21:09:54 34.9 F TBW (Hernandez) 2025-04-16 21:09:54 34.47 Liters F DIALYZER FLOW-QD 2025-04-16 21:09:54 500 mL/min F eKt/V 2025-04-16 21:09:54 1.35 F TOTAL HOURS/WEEK DIALYSIS 2025-04-16 21:09:54 3 hrs F stdKt/V (DIAL) 2025-04-16 21:09:54 N/A F PATIENT AGE 2025-04-16 21:09:54 64 Years F Dialyzer CHING 2025-04-16 21:09:54 1264 Calc F BSA ANIRUDH 2025-04-16 21:09:54 1.9 sq m F stdKT/V Total 2025-04-16 21:09:54 N/A F WEIGHT - POST DAY 1 2025-04-16 21:09:54 76.7 kg F URR% 2025-04-16 21:09:54 78 % F CURRENT KRU 2025-04-16 21:09:54 F Unable to calculate: Post BUN lab result is unknown WEIGHT (KG) 2025-04-16 21:09:54 83 kg F spKt/V 2025-04-16 21:09:54 1.6 F KT/V PRESCRIBED 2025-04-16 21:09:54 1.87 F HEIGHT IN INCHES 2025-04-16 21:09:54 65 Inches F Residual kt/v 2025-04-16 21:09:54 F Unable to calculate: Post BUN lab result is unknown BLOOD FLOW-QWB 2025-04-16 21:09:54 399 F WEIGHT - PRE DAY 1 2025-04-16 21:09:54 77.3 kg F LENGTH OF DIALYSIS 2025-04-16 21:09:54 207 min F AMPUTATE FACTOR 2025-04-16 21:09:54 0 F Urea nitrogen [Mass/volume] in Serum or Plasma --post dialysis 2025-04-16 20:59:17 5 mg/dL F 9.0-23.0 CRE CLR UR/BSA 2025-04-16 17:12:07 0 mL/min F 75.0-115.0 BUN/CREAT 2025-04-16 17:12:07 3.1 Calc F 8.2-46.0 Urea nitrogen [Mass/volume] in Serum or Plasma 2025-04-16 17:11:21 23 mg/dL F 9.0-23.0 Creatinine [Mass/volume] in Serum or Plasma 2025-04-16 17:11:21 7.37 mg/dL F 0.55-1.02 BODY WEIGHT (LBS) 2025-04-15 21:30:57 182 lbs F Anemia Description Draw Date Result/Unit Status Ref Range Result Comments IRON SATURATION 2025-04-17 07:18:06 18 % F 16.0-46.0 TIBC 2025-04-17 07:18:06 182 ug/dL F 250.0-425.0 Iron binding capacity.unsaturated [Mass/volume] in Serum or Plasma 2025-04-17 07:08:48 149 ug/dL F 80.0-375.0 Iron [Mass/volume] in Serum or Plasma 2025-04-17 07:08:48 33 ug/dL F 50.0-170.0 Ferritin [Mass/volume] in Serum or Plasma 2025-04-16 22:25:21 551 ng/mL F 10.0-291.0 HCT CALC HGBX3 2025-04-16 20:24:07 29.1 % F 37.0-47.0 Hemoglobin [Mass/volume] in Blood 2025-04-16 20:23:15 9.7 g/dL F 12.0-16.0 FluidBP Description Draw Date Result/Unit Status Ref Range Result Comments Sodium [Moles/volume] in Serum or Plasma 2025-04-17 07:08:48 144 mEq/L F 136.0-145.0 General Description Draw Date Result/Unit Status Ref Range Result Comments Chloride [Moles/volume] in Serum or Plasma 2025-04-17 07:08:48 103 mEq/L F 98.0-107.0 Aluminum [Mass/volume] in Serum or Plasma 2025-04-16 18:24:45 10 ug/L F 0.0-9.0 Alanine aminotransferase [Enzymatic activity/volume] in Serum or Plasma 2025-04-16 17:11:21 7 U/L F 10.0-49.0 MineralBone Disorder Description Draw Date Result/Unit Status Ref Range Result Comments CA CORRECTED 2025-04-17 07:19:27 9.5 mg/dL F CA/PHOS PRODUCT 2025-04-17 07:18:06 40.9 Calc F 21.0-53.0 CA*PO4 CORRCTD 2025-04-17 07:18:06 41.6 Calc F 21.0-53.0 Calcium [Mass/volume] in Serum or Plasma 2025-04-17 07:08:48 9.3 mg/dL F 8.7-10.4 Parathyrin.intact [Mass/volume] in Serum or Plasma 2025-04-16 22:25:21 1851 pg/mL F 18.0-80.0 Phosphate [Mass/volume] in Serum or Plasma 2025-04-16 17:11:21 4.4 mg/dL F 2.4-5.1 Nutrition Description Draw Date Result/Unit Status Ref Range Result Comments Potassium [Moles/volume] in Serum or Plasma 2025-04-25 13:01:30 F Recollect - Shipping temp out of range,Recollect - Shipping temp out of range Potassium [Moles/volume] in Serum or Plasma 2025-04-17 07:08:48 4.2 mEq/L F 3.5-5.1 Bicarbonate [Moles/volume] in Serum or Plasma 2025-04-16 17:11:21 26 mEq/L F 20.0-31.0 Albumin [Mass/volume] in Serum or Plasma by Bromocresol green (BCG) dye binding method 2025-04-16 17:11:21 3.8 g/dL F 3.2-4.8 Encounters No encounter information to report Immunizations Ordered Immunization Name Filled Immunization Name Date Status Comments Refusal Reason TST-PPD intradermal 2025-04-17 18:01:00 Pneumococcal conjugate PCV20, polysaccharide [id number] conjugate, adjuvant, PF 2025-04-17 18:00:00 pneumococcal polysaccharide PPV23 2023-08-02 17:35:00 Hep B, adult 2023-07-28 18:48:00 Hepatitis B Vaccination 2023-05-17 05:00:00 TST-PPD intradermal 2023-04-26 18:49:00 Covid-19 Vaccination 2022-08-19 06:00:00 Influenza Vaccination 2022-08-19 06:00:00 Covid-19 Vaccination 2021-02-06 05:00:00 Covid-19 Vaccination 2021-01-09 05:00:00 Plan of Treatment Planned Activity Provider Planned Date Details Commen ts Future Scheduled Test [facility] 2025-10-10 06:00:00 Aluminum [Mass/volume] in Serum or Plasma [code = 5574-9] [facility] [place] 2025-05-10 06:26:55 Ferritin [Mass/volume] in Serum or Plasma [code = 2276-4] [facility] [place] 2025-05-10 05:00:00 Parathyrin.intact [Mass/volume] in Serum or Plasma [code = 2731-8] [facility] 2025-05-10 05:00:00 Alanine aminotransferase [Enzymatic activity/volume] in Serum or Plasma [code = 1742-6] [facility] [place] 2025-04-28 05:00:00 Hemoglobin [Mass/volume] in Blood [code = 718-7] [facility] [place] 2025-05-10 05:00:00 Albumin [Mass/volume] in Serum or Plasma by Bromocresol green (BCG) dye binding method [code = 54007-7] Diagnostic Test Pending [facility] 2025-04-16 18:12:28 Potassium [Moles/volume] in Serum or Plasma [code = 2823-3] [facility] [place] 2025-05-10 05:00:00 Sodium [Moles/volume] in Serum or Plasma [code = 2951-2] Diagnostic Test Pending [facility] 2025-04-21 05:00:00 Creatinine [Mass/volume] in Serum or Plasma [code = 2160-0] Diagnostic Test Pending [facility] 2025-04-19 15:27:12 In-Center Hemodialysis Treatment [code = SJM543] Medication [facility] Colmenares 2025-05-01 05:00:00 Tubersol [code = 479890]
--- OUTSIDE RECORDS SUMMARY | 2025-04-27 18:47 | XMS_ITS | Clinical Summary ---
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
--- OUTSIDE RECORDS SUMMARY | 2025-04-27 18:47 | XMS_ITS | Clinical Summary ---
Author Organization [facility] Address [address] [place] [address] Care Team Providers Care Senior Net Developer Name Role Phone Monster Garza MD Primary Care Provider + Source Comments [facility],non-owned Affiliates and Associated Physician Practices is amultiple site organization consisting of ambulatory clinics and hospital sitesin [place], [place], [place] and [place]. This disclosure is being madepursuant to the Care Everywhere program and may not contain all information available regarding this patient. Last updated 18.[facility] [employer] Allergies No known active allergies Social History [...] patient's age to complete this topic Insurance [facility] Care Teams Senior Net Developer Relationship Specialty Start Date End Date Monster Garza MD [address] [place] [address] [address] [place] [address] PCP - General 12/30/20
--- OUTSIDE RECORDS SUMMARY | 2025-04-27 18:47 | XMS_ITS | Data Portability ---
Author Organization [place] - .[facility] [place] Address [address] [place] [address] Assessment Encounter Date Assessment Date Assessment LastModified [...] By Organization Details Last Modified Time 06/01/2023 [id number] A healthy lifestyle: care instructions [email or web address] Not available 06/01/2023 12:20:18 GO TO ER [...] Address Organization Details Recorded Time Hypertensive disorder 79006189 Active 2022 COURTNEY Oakley - .[facility] 10:54:02 Hypercholestero lemia 39857082 Active 2022 RadhaCOURTNEY Vides - .[facility] 10:54:26 Diabetes mellitus 18357448 Active 2022 COURTNEY Oakley - .[facility] 10:55:12 Notes:hx of kidney failure Problem Notes None recorded. Procedures Surgical History Date Name Laterality Status Provider Name and Address Organization Details Recorded Time 023 Electrocardiogram ( EKG / ECG) completed Radha VALDEZ [facility] 06/01/2023 11:34:18 023 . Sent To ER completed Radha VALDEZ [facility] 06/01/2023 11:09:29 Imaging Results None recorded. Procedure [...] % 99 % 166.37 cm 37.7 kg/m2 977702. 25 g 79/51 mm[Hg] 88/58 mm[Hg] Radha Lewis [place] - .[facility] 3 11:05:20 Social History None recorded. Functional Status None recorded. Mental Status None recorded. Family History Nothing Reported. Medical History No medical history recorded. Gynecological HistoryNo gynecological history recorded. Obstetrics History GPAL:G 0 P 0 0 0 0 Past Encounters Encounter ID Performer Location Encounter Start Date Encounter Closed Date Diagnosis/Indication Diagnosis SNOMED-CT Code Diagnosis ICD10 Code Diagnosis Note [id number] Omar Suleiman [facility] [address] [place] [address] 06/01/2023 10:28:44 06/01/2023 11:36:20 Nausea and vomiting 11343081 R11.2 Low blood pressure 02285 003 I95.9 Health Concerns Section Related Observation LastModified by Organization Detai ls LastModified Time None Recorded Concern Status LastModified by Organization Details LastModified Time None Recorded Advance Directives Directive None Recorded Payers Insurance Date Sequence Insurance Name Policy Number Policy Doran Covered Member ID Doran Member ID Guarantor Name 07/15/2023 1 [employer] (O) [employer] Gena Pierre [id number] Gena Pierre Notes Date Note Type Note [...] sick contacts. No hx of heart attacks. CORUTNEY Vazquez - .[facility] 06/01/2023 14:05:46 OBGyn Episode No OBEpisode recorded.
--- OUTSIDE RECORDS SUMMARY | 2025-04-27 18:47 | XMS_ITS | Clinical Summary ---
Author Organization [facility] Address [address] [place] [address] Phone Care Team Providers Care Water Pump Assembler Name Role Phone Monster Rocha MD Primary Care Provider +1- [phone] Allergies No known active allergies Medications metFORMIN [...] PCV) 2009 Influenza Vaccine (#1) 2025 Insurance [facility] Care Teams Water Pump Assembler Relationship Specialty Start Date End Date Monster Rocha MD [address] [address] PCP - General Family Medicine 08/19/20
--- OUTSIDE RECORDS SUMMARY | 2025-04-27 18:47 | XMS_ITS | Referral Summary ---
Author Organization [facility] [address] [place] [address] Care Team Providers Care Fire Supervisor Name Role Phone Monster Garza MD Primary Care Prov ider Encounters Date Type Department Care Team Description 04/25/2025 Telephone [facility] Surgery [address] [facility] 12th [place] [address] [place] [phone] Gurwinder Centeno MD PhD from Last 3 Months Allergies No known active allergies Medications carvediloL [...] limited to bleeding, infection, nerve injury, stroke, [place], communicated the patient with full understanding. She wished to proceed Social History Tobacco Use Types Packs/Day Years Used Date Smoking Tobacco: Former Cigarettes 2 - 1969 Smokeless Tobacco: Never Tobacco Cessation:Counseling [...] Plan of Treatment Not on file Insurance [address] [place] [address] [employer] MED[employer]ARE [facility] Care Teams Fire Supervisor Relationship Specialty Start Date End Date Monster Garza MD [address] [place] [address] PCP - General Family Medicine 12/16/23
[2025-04-27 18:50] VITALS: BP 115/61; PULSE 103; RESP 20; TEMP 36.6; O2SAT 100
[2025-04-27 20:31] VITALS: BP 132/71; PULSE 107; RESP 18; O2SAT 100
--- NOTE | 2025-04-27 21:05 | ED_ITS ---
HPI - Fall General Chief Complaint: Fall Stated Complaint: fall, HI Time Seen by Provider: 04/27/25 20:33 Source: patient, family and RN notes reviewed Mode of arrival: EMS Limitations: no limitations History of Present Illness HPI Narrative: 64 y/o AAF in the ED via EMS from [place] s/p fall out of bed. Pt hit her head on a bedside table, no LOC per EMS or pt. Pt A+OX2-3, aware of herself and year. Pt on Plavix and 81mg ASA currently and at rehab/[place] s/p previous CVA. Pt has previous left-sided weakness from old stroke. Pt denies VILLANUEVA, vision issues, dizziness, CP, SOB. Pt endorses left shoulder pain, but states it is chronic. Related Data Allergies Allergy/AdvReac Type Severity Reaction Status Date / Time lactose AdvReac Mild Gastrointestinal Verified 04/27/25 20:35 Upset Review of Systems 2 Review of Systems: CONSTITUTIONAL: Denies fever, chills, or sweats. EYES: Denies visual changes, redness, or discharge. ENT: Denies rhinorrhea, congestion, sore throat, or otalgia. CARDIOVASCULAR: Denies chest pain, palpitations, or edema. RESPIRATORY: Denies cough or dyspnea. GASTROINTESTINAL: Denies abdominal pain, nausea, vomiting, or diarrhea. GENITOURINARY: Denies dysuria or hematuria. SKIN: Denies rash or itching. MUSCULOSKELETAL: Endorses left shoulder pain, states it is chronic. Denies back pain, joint pain, or myalgia. NEUROLOGIC: Denies headache, numbness, or weakness. PSYCHIATRIC: Denies anxiety or depression. [facility] Past Medical History Medical History Fall Acute right arterial ischemic stroke, MCA (middle cerebral artery) Chronic kidney disease, stage 5 Cancer of right breast (2004) Status post chemotherapy and mastectomy. Diabetic peripheral neuropathy Obesity (BMI 30-39.9) Essential hypertension End-stage renal disease on hemodialysis Chronic kidney disease due to hypertension and diabetes with final insult kidneys with severe rhabdomyolysis March 2023. Vitamin D deficiency Type 2 diabetes mellitus Anemia Normal colonoscopy (07/2011) Primary hyperparathyroidism (11/2020) Vaginal polyp Depression Anxiety Surgical History Surgical History History of right mastectomy History of hysteroscopy (2020) Family History Family History Mother Family history of lung cancer Hypertension Grandparent Cerebrovascular accident Diabetes mellitus Hypertension Son Family history of cardiovascular disease Heart disease Hypertension Father Unknown family medical history Social History Social History Social History: Surrogate decision maker: Adry Smith (sister). Code status: Full code. Smoking packs per day: 0.5 Smoking cigarettes per day: 10.0 Years smoked: 20 Smoking pack-years: 10.00 Smoking status: Former smoker Tobacco type: cigarettes Second hand tobacco smoke exposure: Yes Alcohol intake: never Alcohol use details: Very seldom Substance use: never Substance use type: does not use Do You Feel Safe in your Home?: Yes Lack of Transportation: No Lack of Food: Never True Current Housing: I Have Housing Concerned About Future Housing: No Difficulty Paying Gas/Electric Bills: No Difficulty Paying for Meds: No Currently Unemployed: No Education: High School Diploma/GED Difficulty w/ Childcare or Family Care: No Additional living arrangements comments: Lives in [place]. Additional occupation/education comments: Retired. Sexual Orientation (if Verbalized by the Patient): Straight or Heterosexual Spiritual care concerns: No Agree to blood products: Yes Exam 2 Const: General: healthy appearing, no acute distress, alert and confusion N utritional Appearance: well nourished Limitations: altered mental status HENMT: Head: normal to inspection Ears: external ears normal F jordan/Nose/Sinus: Normal external nose present Face and sinus: normal facial exam Mouth: Yes Normal oral and palatal mucosa present Eyes: Pupils: Equal, round and reactive pupils present EOM: EOMs intact bilaterally Neck: Neck: normal visual inspection Chest: Chest palpation & inspection: normal inspection of the chest Resp: Effort & Inspection: normal respiratory effort Auscultation: clear to auscultation bilaterally Cardio: Rate: regular rate Rhythm: regular rhythm GI: Auscultation: normal bowel sounds : General: Yes bladder normal to palpation Back/Spine/Pelvis: Back: no CVA tenderness Skin: General skin exam: normal color Rashes: no rashes Wounds: no wounds Neuro: General: moves all extremities Speech: normal speech Extrem: General: normal to inspection Other: Left-sided weakness Psych: Mental Status: mental status grossly normal Affect: normal affect Attitude: cooperative Course Vital Signs Vital signs: Vital Signs Temperature 36.6 C 04/27/25 18:50 Pulse Rate 103 H 04/27/25 18:50 Respiratory Rate 20 04/27/25 18:50 Blood Pressure 115/61 04/27/25 18:50 Pulse Oximetry 100 04/27/25 18:50 Oxygen Delivery Room Air 04/27/25 18:50 Temperature 36.7 C 04/27/25 23:43 Pulse Rate 87 04/27/25 23:43 Respiratory Rate 18 04/27/25 23:43 Blood Pressure 102/57 L 04/27/25 23:43 Pulse Oximetry 99 04/27/25 23:43 Oxygen Delivery Room Air 04/27/25 20:31 MDM - Fall MDM Narrative Medical decision making narrative: Currently in Rehab for CVA treatment, [facility] in [place]. Has not been home since. Noted acute subarachnoid hemorrhage on CT per radiologist read. After discussion with Adry, patient's sibling, and patient, patient be transferred to [facility] Emergency Room for further care. [facility] access line contacted, spoke with Dr. Walter and patient was accepted. Consent obtained over the phone from sister Adry, and patient will be transferred by ALS ambulance. Differential Diagnosis Differential diagnosis: Likely syncope, concussion with loss of consciousness, concussion without loss of consciousness and other (Subarachnoid hemorrhage) Medical Records Attestation: I reviewed the patient's medical records. Lab Data 04/27/25 21:45 04/27/25 21:45 Labs: Lab Results 04/27/25 Range/Units 21:45 WBC 11.8 H (4.5-10.0) K/mm3 RBC 2.94 L (4.2-5.4) M/mm3 Hgb 8.5 L (12.0-15.0) g/dL Hct 27.9 L (37.0-47.0) % MCV 94.9 (80-100) fl MCH 28.9 (26-34) pg MCHC 30.5 L (32-36) g/dl RDW 14.3 (11.5-14.5) % Plt Count 331 D (150-375) k/mm3 MPV 10.7 H (7.4-10.4) fl Immature Gran % (Auto) 0.3 (0-0.5) % Neut % (Auto) 70.9 (45.5-73.1) % Lymph % (Auto) 14.8 L (18.3-44.2) % [place] % (Auto) 10.4 H (2.6-8.5) % Eos % (Auto) 2.8 (0-4.4) % Baso % (Auto) 0.8 (0.2-1.2) % Lymph # (Auto) 1.75 (0.9-3.2) K/mm3 [place] # (Auto) 1.2 H (0.1-0.6) K/mm3 Eos # (Auto) 0.3 (0-0.3) K/mm3 Baso # (Auto) 0.1 (0.0-0.1) K/mm3 Abs Immat Gran (auto) 0.04 H (0.00-0.031) K/mm3 Absolute Neuts (auto) 8.4 H (1.3-6.7) K/mm3 Absolute Nucleated RBC 0.000 (0.0-0.012) K/mm3 Nucleated RBC % 0.0 (0.0-0.2) % Sodium 130 L (137-145) mmol/L Potassium 3.3 L (3.4-5.0) mmol/L Chloride 93 L (98-107) mmol/L Carbon Dioxide 30 (22-30) mmol/L Anion Gap 7 (4-12) mmol/L BUN 16 (7-17) mg/dL Creatinine 6.01 H (0.7-1.0) mg/dL Estim Creat Clear Calc 9 ml/min Estimated GFR 7 L (59 - ) Glucose 104 (65-110) mg/dL Calcium 8.7 (8.4-10.2) mg/dL Total Bilirubin 0.6 (0.2-1.3) mg/dL AST 44 H (14-36) U/L ALT 28 (6-35) U/L Alkaline Phosphatase 215 H (38-126) U/L Total Protein 6.2 L (6.3-8.2) g/dL Albumin 3.3 L (3.5-5.1) g/dL Imaging Data Radiologist's impression: ITS Impressions Head CT 04/27/25 20:24 Impression: Suspected tiny amount of acute subarachnoid hemorrhage in the superior left frontal lobe region. Stable encephalomalacia right parietal lobe. Atrophy and chronic white matter changes, as above. Discharge Plan Discharge Clinical Impression: Subarachnoid hemorrhage following injury Patient Disposition: Acute Care Hospital Condition: Serious Patient Language: Algerian Prescriptions: No Action atorvastatin 40 mg Tablet 40 mg PO DAILY Qty: 30 0RF clopidogrel 75 mg Tablet 75 mg PO QAM Qty: 30 0RF aspirin 81 mg Tablet,Delayed Release (Dr/Ec) 81 mg PO QAM Qty: 30 0RF cinacalcet [Sensipar] 30 mg Tablet 30 mg PO Q24H Qty: 30 0RF lisinopril 20 mg Tablet 20 mg PO QAM Qty: 30 0RF sodium bicarbonate 650 mg Tablet 1,300 mg PO BIDPC Qty: 60 0RF carvedilol 12.5 mg tablet 12.5 mg PO Q12H Qty: 180 3RF Rx Instructions: must administer with a meal/food venlafaxine 150 mg capsule,extended release 24hr See Rx Instructions .ROUTE .COMPLEX Qty: 90 1RF Dose Instruction: TAKE 1 CAPSULE BY MOUTH DAILY Rx Instructions: TAKE 1 CAPSULE BY MOUTH DAILY Follow-up/Referrals: Monster Garza MD [Primary Care Provider] -
--- OUTSIDE RECORDS SUMMARY | 2025-04-27 21:29 | XMS_ITS | Clinical Summary ---
Author Organization [facility] Address [address] [place] [address] Care Team Providers Care Project Leader Name Role Phone Monster Garza MD Primary Care Provider +1- [phone] Social History Tobacco Use Types Packs/Day Years Used Date Smoking Tobacco: Never Assessed Comments Unknown Sex and Gender Information Value Date Recorded Sex Assigned at Not on file Legal Sex Female 9:33 AM TROMMEL TENDER Gender Identity Not on file Sexual Orientation [...] Insurance [facility] Care Teams Project Leader Relationship Specialty Start Date End Date Monster Garza MD [address] [address] PCP - General FAMILY PRACTICE 11/01/23
--- OUTSIDE RECORDS SUMMARY | 2025-04-27 21:29 | XMS_ITS | Clinical Summary ---
Author Organization [facility] Address [address] [place] [address] Care Team Providers Care Aircraft Motor Mechanic Name Role Phone Monster Garza MD Primary Care Provider + Source Comments [facility],non-owned Affiliates and Associated Physician Practices is amultiple site organization consisting of ambulatory clinics and hospital sitesin [place], [place], [place] and [place]. This disclosure is being madepursuant to the Care Everywhere program and may not contain all information available regarding this patient. Last updated 18.[facility] [facility] Allergies No known active allergies Social History [...] patient's age to complete this topic Insurance [facility] Address: [address] [address] Care Teams Aircraft Motor Mechanic Relationship Specialty Start Date End Date Monster Garza MD [address] [place] [address] [address] [place] [address] PCP - General 12/30/20
--- OUTSIDE RECORDS SUMMARY | 2025-04-27 21:29 | XMS_ITS | Clinical Summary ---
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
--- OUTSIDE RECORDS SUMMARY | 2025-04-27 21:29 | XMS_ITS | Clinical Summary ---
Author Organization [facility] Address [address] [place] [address] Phone Care Team Providers Care Sexual Assault Nurse Name Role Phone Monster Rocha MD Primary Care Provider +1- [phone] Allergies No known active allergies Medications metFORMIN [...] PCV) 2009 Influenza Vaccine (#1) 2025 Insurance [facility] Care Teams Sexual Assault Nurse Relationship Specialty Start Date End Date Monster Rocha MD [address] [address] PCP - General Family Medicine 08/19/20
--- OUTSIDE RECORDS SUMMARY | 2025-04-27 21:29 | XMS_ITS | Clinical Summary ---
Author Organization [facility] [address] [place] [address] Care Team Providers Care Language Pathologist Name Role Phone Monster Garza MD Primary [...] limited to bleeding, infection, nerve injury, stroke, [place], communicated the patient with full understanding. She wished to proceed Encounters Date Type Department Care Team Description 04/25/[address] [facility] Surgery [address] [facility] [address]th [place] [address] [place] [address] Gurwinder Centeno MD PhD from [...] 2012 Fall Risk Assessment 07/11/2025 07/11/2024 Insurance [facility] Care Teams Language Pathologist Relationship Specialty Start Date End Date Monster Garza MD [address] [place] [address] PCP - General Family Medicine 12/16/23
--- OUTSIDE RECORDS SUMMARY | 2025-04-27 21:29 | XMS_ITS | Referral Summary ---
Author Organization [facility] [address] [place] [address] Care Team Providers Care Blower Insulator Name Role Phone Monster Garza MD Primary Care Prov ider Encounters Date Type Department Care Team Description 04/25/2025 Telephone [facility] Surgery [address] [facility] 12th [place] [address] [place] [phone] Gurwinder Centeno MD PhD from Last 3 [...] limited to bleeding, infection, nerve injury, stroke, [place], communicated the patient with full understanding. She [...] Treatment Not on file Insurance [address] [place] [address] [employer] MED[employer]ARE [employer] [facility] Care Teams Blower Insulator Relationship Specialty Start Date End Date Monster Garza MD [address] [place] [address] PCP - General Family Medicine 12/16/23
[2025-04-27 21:47] VITALS: BP 119/67; PULSE 99; RESP 18; O2SAT 100
[2025-04-27 21:50] LABS: Hematocrit 27.9 % (37.0-47.0); Hemoglobin 8.5 g/dL (12.0-15.0); Immature Granulocyte Percent A 0.3 % (0-0.5); Lymphocytes Absolute Auto 1.75 K/mm3 (0.9-3.2); Mean Corpuscular HGB Conc 30.5 g/dl (32-36); Mean Corpuscular Hemoglobin 28.9 pg (26-34); Mean Corpuscular Volume 94.9 fl (80-100); Nucleated Red Blood Cells Absolute Auto 0.000 K/mm3 (0.0-0.012); Nucleated Red Blood Cells Perc 0.0 % (0.0-0.2); Platelet Count Result 331 k/mm3 (150-375); Red Blood Count 2.94 M/mm3 (4.2-5.4); White Blood Count 11.8 K/mm3 (4.5-10.0)
--- NOTE | 2025-04-27 22:02 | PC.NURSE ---
Called [facility] to inform them that pt will be transferred to [facility]
[2025-04-27 22:05] LABS: Alanine Aminotransferase 28 U/L (6-35); Albumin Level 3.3 g/dL (3.5-5.1); Alkaline Phosphatase 215 U/L (38-126); Anion Gap 7 mmol/L (4-12); Aspartate Amino Transferase 44 U/L (14-36); Bilirubin,Total 0.6 mg/dL (0.2-1.3); Blood Urea Nitrogen 16 mg/dL (7-17); Calcium 8.7 mg/dL (8.4-10.2); Carbon Dioxide 30 mmol/L (22-30); Chloride 93 mmol/L (98-107); Estimated CRCL calculation 9 ml/min; Estimated Glomerular Filt Rate 7; Glucose 104 mg/dL (65-110); Potassium 3.3 mmol/L (3.4-5.0); Sodium 130 mmol/L (137-145); Total Protein 6.2 g/dL (6.3-8.2)
[2025-04-27 23:01] VITALS: BP 128/73; PULSE 94; RESP 18; TEMP 36.7; O2SAT 100
[2025-04-27 23:43] VITALS: BP 102/57; PULSE 87; RESP 18; TEMP 36.7; O2SAT 99
== END 2025-04-27 23:45 | disposition short-term general hospital (02) ==
LOC: ANHED 21:28
PROVIDERS: Emergency Provider Registered Nurse Emergency; PCP Family Medicine Adolescent Medicine
DX: S06.6X0A Traumatic subarachnoid hemorrhage without loss of consciousness, initial encounter (principal); I69.354 Hemiplegia and hemiparesis following cerebral infarction affecting left non-dominant side; E11.22 Type 2 diabetes mellitus with diabetic chronic kidney disease; I12.0 Hypertensive chronic kidney disease with stage 5 chronic kidney disease or end stage renal disease; N18.6 End stage renal disease; Z99.2 Dependence on renal dialysis; Z85.3 Personal history of malignant neoplasm of breast; E11.42 Type 2 diabetes mellitus with diabetic polyneuropathy; E55.9 Vitamin D deficiency, unspecified; E21.0 Primary hyperparathyroidism; F41.9 Anxiety disorder, unspecified; F32.A Depression, unspecified; Z87.891 Personal history of nicotine dependence; Z90.11 Acquired absence of right breast and nipple; Z79.02 Long term (current) use of antithrombotics/antiplatelets; Z79.82 Long term (current) use of aspirin; Z79.899 Other long term (current) drug therapy; W06.XXXA Fall from bed, initial encounter
CPT/HCPCS: 36415; 70450; 80053; 85025; 99285

== ENCOUNTER 2025-09-10 11:51 | Emergency (ER) | payer MEDICARE, MEDICAID, SELFPAY ==
--- OUTSIDE RECORDS SUMMARY | 2025-09-08 15:38 | XMS_ITS | Encounter Summary ---
Author Organization [facility] Healthcare Address [address] [place] [address] Care Team Providers Care Benefits Counselor Name Role Phone Monster Garza MD Primary Care Prov ider Encounter Details Date Type Department Care Team (Latest Contact Info) Description 2025 3:38 PM COMMUNICATIONS TOWER TECHNICIAN - 2025 11:59 PM COMMUNICATIONS TOWER TECHNICIAN Hospital Encounter [address] [id number] Discharge Disposition: Discharge to home or self care Social History Tobacco Use Types Packs/Day Years Used Date Smoking Tobacco: Former Cigarettes 2 - 1969 Smokeless Tobacco: Never AUDIT-C Answer Date Recorded Q1: How often [...] on file Sexual Orientation Not on file documented as of this encounter Medications at Time of Discharge carvediloL (COREG) 12.5 mg tablet Take 1 tablet (12.5 mg total) by mouth 2 (two) times a day 06/26/2024 sodium bicarbonate 650 mg tablet Take 1 tablet (650 mg total) by mouth 2 (two) times a day 05/24/2024 venlafaxine XR (EFFEXOR-XR) 150 mg 24 hr capsule Take 1 capsule (150 mg total) by mouth daily documented as of this encounter Discharge Disposition Disposition Code Departure Means Destination Discharge to home or self care documented in this encounter Plan of Treatment Not on file documented as of this encounter Procedures Procedure Name Priority Date/Time Associated Diagnosis Comments EGFR Routine 2025 1:39 PM COMMUNICATIONS TOWER TECHNICIAN DIFFERENTIAL AUTO Routine 2025 1:3 9 PM COMMUNICATIONS TOWER TECHNICIAN CBC WITH AUTO DIFFERENTIAL Routine 2025 1:39 PM COMMUNICATIONS TOWER TECHNICIAN COMPREHENSIVE METABOLIC PANEL Routine 2025 1:39 PM COMMUNICATIONS TOWER TECHNICIAN documented in this encounter Results * (ABNORMAL) eGFR (2025 1:39 PM COMMUNICATIONS TOWER TECHNICIAN) eGFR 4(L) >=60 mL/min/1. 73 m2 Comment: Interpretive Data Reference Interval Normal >/= 90 mL/min/1.73m2 Mildly decreased* 60 - 89 mL/min/1.73m2 Mildly to moderately decreased 45 - 59 mL/min/1.73m2 Moderately to severely decreased 30 - 44 mL/min/1.73m2 Severely decreased 15 - 29 mL/min/1.73m2 Kidney Failure < 15 mL/min/1.73m2 *Relative to young adult level Estimated glomerular filtration rate is determined by the 2020 CKD-EPI equation recommended by the National Kid[employer] Foundation (A Unifying Approach to GFR Estimation: Recommendations of the NKF-ASK Task Force on Reassessing the Inclusion of Race in Diagnosing Kidney Disease, JASN 2020). The CKD-EPI equation should not be used for patients with unstable renal function and has not been validated in children and those over 70. Current interpretive data was last reviewed 2021. Blood 2025 1:39 PM COMMUNICATIONS TOWER TECHNICIAN 2025 4:54 PM COMMUNICATIONS TOWER TECHNICIAN us Caitie Castro DO LAB BLOOD ORDERABLES F inal Result DOUGIE [address] [facility] Department [place] [address] * (ABNORMAL) Differential, auto (2025 1:39 PM COMMUNICATIONS TOWER TECHNICIAN) Neutrophil abs 5.75 1.50 - 6.50 K/cumm Imm gran abs 0.03 0.00 - 0.10 K/cumm [facility] Lymphocyte abs 2.12 0.80 - 3.30 K/cumm [facility] Monocyte abs 0.90(H) 0.20 - 0.80 K/cumm [facility] Eosinophil abs 0.55(H) 0.00 - 0.50 K/cumm [facility] Basophil abs 0.08 0.00 - 0.10 K/cumm [facility] Neutrophil pct 61.1 % [facility] Comment: Interpretive Data Percent cell count reference ranges are not reported, since discordance with absolute values may lead to misinterpretation of CBC data. Current Interpretive Data was last revised on 2018. Imm gran pct 0.3 % [facility] Comment: Interpretive Data Percent cell count reference ranges are not reported, since discordance with absolute values may lead to misinterpretation of CBC data. Current Interpretive Data was last revised on 2018. Lymphocyte pct 22.5 % [facility] Comment: Interpretive Data Percent cell count reference ranges are not reported, since discordance with absolute values may lead to misinterpretation of CBC data. Current Interpretive Data was last revised on 2018. Monocyte pct 9.5 % [facility] Comment: Interpretive Data Percent cell count reference ranges are not reported, since discordance with absolute values may lead to misinterpretation of CBC data. Current Interpretive Data was last revised on 2018. Eosinophil pct 5.8 % [facility] Comment: Interpretive Data Percent cell count reference ranges are not reported, since discordance with absolute values may lead to misinterpretation of CBC data. Current Interpretive Data was last revised on 2018. Basophil pct 0.8 % [facility] Comment: Interpretive Data Percent cell count reference ranges are not reported, since discordance with absolute values may lead to misinterpretation of CBC data. Current Interpretive Data was last revised on 2018. Blood 2025 1:39 PM COMMUNICATIONS TOWER TECHNICIAN 2025 4:54 PM COMMUNICATIONS TOWER TECHNICIAN Caitie Castro LAB BLOOD ORDERABLES F inal Result Performing Organization Address [facility] Co de Phone Number DOUGIE GARCIA [phone] [place] [address] * (ABNORMAL) CBC with auto differential (2025 1:39 PM COMMUNICATIONS TOWER TECHNICIAN) Pathologist [facility] WBC 9.43 3.80 - 9.90 K/cumm Hgb 12.2 11.9 - 15.5 g/dL [facility] Hct 39.6 35.6 - 45.5 % [facility] Plt 369 150 - 400 K/cumm [facility] MPV 10.0 9.1 - 12.3 fL [facility] RBC 4.24 3.90 - 5.20 M/cumm [facility] MCV 93.4 81.3 - 96.4 fL [facility] MCH 28.8 27.1 - 33.3 pg [facility] MCHC 30.8(L) 32.3 - 35.7 g/dL [facility] RDW CV 15.5(H) 11.1 - 14.9 % [facility] RDW SD 52.5(H) 35.7 - 48.1 fL [facility] NRBC abs 0.00 0.00 - 0.01 K/cumm [facility] Blood 2025 1:39 PM COMMUNICATIONS TOWER TECHNICIAN 2025 4:54 PM COMMUNICATIONS TOWER TECHNICIAN Caitie Guevarayaneli Gloria LAB BLOOD ORDERABLES F inal Result Performing Organization Address [facility] Co de Phone Number DOUGIE GARCIA [address] [place] [address] * (ABNORMAL) Comprehensive metabolic panel (2025 1:39 PM COMMUNICATIONS TOWER TECHNICIAN) Pathologist [facility] Sodium 141 135 - 145 mmol/L Potassium, pl 5.2(H) 3.3 - 4.9 mmol/L [facility] Chloride 95(L) 97 - 110 mmol/L [facility] CO2 25 22 - 32 mmol/L [facility] Anion gap 21(H) 2 - 15 mmol/L [facility] BUN 63(H) 6 - 25 mg/dL [facility] Creatinine 8.93(H) 0.60 - 1.10 mg/dL [facility] Glucose 94 70 - 199 mg/dL [facility] Comment: Interpretive Data Fasting glucose >/= 126 mg/dl is diagnostic for diabetes. Fasting is defined as no caloric intake for at least 8 hours. Fasting glucose between 100 mg/dl to 125 mg/dl is diagnostic of prediabetes. In a patient with classic symptoms of hyperglycemia or hyperglycemic crisis, a random glucose >/= 200 mg/dl is diagnostic for diabetes. In the absence of unequivocal hyperglycemia, results should be confirmed by repeat testing. The classification and Diagnosis of Diabetes Diabetes Care 2021; 46: S19-S40. Current interpretive data was last revised 2022. Calcium 9.8 8.5 - 10.3 mg/dL [facility] Bilirubin, total 0.3 0.1 - 1.2 mg/dL [facility] Protein, pl 6.5 6.5 - 8.5 g/dL [facility] Albumin 3.7 3.5 - 5.0 g/dL [facility] Alk phos 159(H) 40 - 130 Units/L [facility] ALT 10 7 - 45 Units/L [facility] AST 15 10 - 45 Units/L [facility] Blood 2025 1:39 PM COMMUNICATIONS TOWER TECHNICIAN 2025 4:54 PM COMMUNICATIONS TOWER TECHNICIAN Caitie Castro DO LAB BLOOD ORDERABLES F inal Result DOUGIE [address] Department of Laboratories [place], [place] [id number] documented in this encounter Visit Diagnoses Not on filedocumented in this encounter Care Teams Benefits Counselor Relationship Specialty Start Date End Date Monster Garza MD PCP - General Family Medicine 12/16/23 documented as of this encounter
--- NOTE | ~2025-09-10 | CT_ITS ---
EXAMINATION: CT brain wo con DATE: 09/10/2025 13:31 INDICATION: Altered mental status TECHNIQUE: Computed tomography (CT) of the head was performed without intravenous contrast. The dose-length product was 529.67 mGy-cm. Automated exposure control and iterative reconstruction technique were employed. COMPARISON: CT dated 04/27/2025 FINDINGS: There is a large chronic right parietal infarction. There is a chronic left frontal lobe infarction. There are scattered severe periventricular and subcortical white matter changes, most likely related to small vessel ischemic disease (microangiopathy). No ventriculomegaly or midline shift. There is intracranial atherosclerosis. There is mucosal thickening of the maxillary, ethmoid, sphenoid and frontal sinuses. Mastoids are pneumatized. No depressed skull fractures. IMPRESSION: 1. No acute intracranial abnormality. 2: Chronic left frontal and right parietal lobe infarctions. 3: Pansinusitis. 4: Chronic age-related findings. Reviewed, dictated and finalized at location I. 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
--- NOTE | ~2025-09-10 | XR_ITS ---
EXAMINATION: XR chest 1V portable 09/10/2025 14:44 INDICATION: Cough. Altered mental status. PROCEDURE: AP portable chest COMPARISON: 04/19/2025 FINDINGS: Subtle opacification right apex obscured by overlying osseous structures and central venous catheter. Cannot exclude underlying pneumonia. The cardiomediastinal silhouette is within normal limits. There are no pleural effusions. There is no pneumothorax suspected. Central venous catheter tips in the SVC. IMPRESSION: 1: Possible right upper lobe airspace disease, suspicious for pneumonia. Reviewed, dictated and finalized at location I. COORDINATOR
--- NOTE | 2025-09-10 11:47 | ECG_ITS ---
Test Date: 2025-09-10 12:05:50 Measurements Intervals [place] Rate: 79 P: 39 RI: 188 QRS: -11 QRSD: 83 T: 52 QT: 366 QTc: 422 Interpretive Statements SINUS RHYTHM POSSIBLE ANTERIOR MYOCARDIAL INFARCTION , OF INDETERMINATE AGE BASELINE ARTIFACT- I, III, AVR, AVL, AVF, V2 ABNORMAL ECG No previous ECG available for comparison Electronically Signed On 09-10-2025 12:49:28 [employer] by Chuck Nava D.O.
[2025-09-10 11:48] VITALS: BP 142/80; PULSE 80; RESP 16; TEMP 36.7; O2SAT 100
[2025-09-10 12:17] LABS: Hematocrit 37.6 % (37.0-47.0); Hemoglobin 11.8 g/dL (12.0-15.0); Immature Granulocyte Percent A 0.2 % (0-0.5); Lymphocytes Absolute Auto 2.17 K/mm3 (0.9-3.2); Mean Corpuscular HGB Conc 31.4 g/dl (32-36); Mean Corpuscular Hemoglobin 29.1 pg (26-34); Mean Corpuscular Volume 92.6 fl (80-100); Nucleated Red Blood Cells Absolute Auto 0.000 K/mm3 (0.0-0.012); Nucleated Red Blood Cells Perc 0.0 % (0.0-0.2); Platelet Count Result 351 k/mm3 (150-375); Red Blood Count 4.06 M/mm3 (4.2-5.4); White Blood Count 9.5 K/mm3 (4.5-10.0)
[2025-09-10 12:28] LABS: Alanine Aminotransferase 9 U/L (6-35); Albumin Level 4.1 g/dL (3.5-5.1); Alkaline Phosphatase 135 U/L (38-126); Anion Gap 7 mmol/L (4-12); Aspartate Amino Transferase 22 U/L (14-36); Bilirubin,Total 0.6 mg/dL (0.2-1.3); Blood Urea Nitrogen 47 mg/dL (7-17); Calcium 10.8 mg/dL (8.4-10.2); Carbon Dioxide 30 mmol/L (22-30); Chloride 98 mmol/L (98-107); Estimated Glomerular Filt Rate 5; Glucose 87 mg/dL (65-110); Potassium 5.5 mmol/L (3.4-5.0); Sodium 135 mmol/L (137-145); Total Protein 7.8 g/dL (6.3-8.2)
[2025-09-10 12:33] LABS: INR 1.1; Prothrombin Time 13.9 Seconds (11.1-14.7)
[2025-09-10 12:34] LABS: Partial Thromboplastin Time 31.1 Seconds (22.3-36.8)
[2025-09-10 12:42] LABS: Add Urine Microscopic? YES; Appearance Urine Clear (Clear); Glucose Urine UA Negative (Negative); Leukocyte Esterase Ur 3+ LEU/UL (Negative); Nitrate Urine Negative (Negative); Non Pathogenic Casts 0-2; Specific Grav Ur 1.008 (1.001-1.035)
[2025-09-10 13:19] VITALS: PULSE 81; RESP 14; O2SAT 99
--- NOTE | 2025-09-10 13:23 | PC.NURSE ---
pt to CT at this time
[2025-09-10 13:45] VITALS: PULSE 81; RESP 16; O2SAT 97
[2025-09-10] MEDS: cefTRIAXone 1 GM in SODIUM CHLORIDE 0.9% IV 50 ML 100 ML IVPB (13:45)
--- NOTE | 2025-09-10 13:49 | PC.NURSE ---
Update provided to pt. nurse at [facility].
--- OUTSIDE RECORDS SUMMARY | 2025-09-10 14:06 | XMS_ITS | Clinical Summary ---
Author Organization [facility] Address [facility] [place] [address] Care Team Providers Care Cabinet Assembler Name Role Phone Monster Garza MD Primary Care Provider [phone] Social History Tobacco Use Types Packs/Day Years Used Date Smoking Tobacco: Never Assessed Comments Unknown Sex and Gender Information Value Date Recorded Sex Assigned at Not on file Legal Sex Female 9:33 AM NEGOTIATOR Gender Identity Not on file Sexual Orientation Not on file Plan of Treatment Health Maintenance Due Date Last Done Comments Colorectal Cancer Screening Colonoscopy (10 Years) 1959 Hepatitis C 1977 DTaP, Tdap and Td Vaccines ( 1 - Tdap) 1978 Mammogram Screening 1999 Pneumococcal Vaccine: 50+ Years (1 of 1 - PCV) 2009 Zoster Vaccines (1 of 2) 2009 Dexa Scan (General) 2024 COVID-19 Vaccine (4 - 2024-2 6 season) 2025 08/19/2022, 02/06/2021, 01/09/2021 Influenza Adult (#1) 2025 08/19/2022 RSV Immunization or 60+ Years (1 - 1-dose 75+ series) 2034 Hepatitis A Vaccines Aged Out No long er eligible based on patient's age to complete this topic Meningococcal B Vaccine Aged Out No l onger eligible based on patient's age to complete this topic Meningococcal Vaccine Aged Out No clarisa lance eligible based on patient's age to complete this topic RSV Immunizations Under 20 Months Aged Out No longer eligible b ased on patient's age to complete this topic Insurance [facility] Care Teams Cabinet Assembler Relationship Specialty Start Date End Date Monster Garza MD [address] [facility] [address] [place] [address] PCP - General FAMILY PRACTICE 11/01/23
--- OUTSIDE RECORDS SUMMARY | 2025-09-10 14:06 | XMS_ITS | Clinical Summary ---
Author Organization [facility] Address [address] [address] Care Team Providers Care Shank Sorter Name Role Phone Monster Garza MD Primary Care Provider + Source Comments [facility],non-owned Affiliates and Associated Physician Practices is amultiple site organization consisting of ambulatory clinics and hospital sitesin [place] and [place]. This disclosure is being madepursuant to the Care Everywhere program and may not contain all information available regarding this patient. Last updated 18.[facility] Allergies Active Allergy Reactions Criticality Noted Date Comments Lactose GI Discomfort Low 04/27/2025 Medications * Be aware that medications may not be up to date on this document. Alwaysverify current medications with the patient. OneTouch Verio test strip Use 1 (one) strip 4 times daily 3 Active acetaminophen (Tylenol) 325 MG tablet Take 2 (two) tablets by mouth every 6 hours as needed Maximum allowable Acetaminophen amount = 4 Grams (4000 mg) / 24 hours. 5 Active aspirin (Aspirin) 81 MG chew tablet Take 1 (one) tablet by mouth once daily (chew and swallow) 5 Active venlafaxine XR 24hr (Effexor XR) 150 MG capsule Take 1 (one) capsule by mouth daily with dinner 5 Active atorvastatin (Lipitor) 40 MG tablet Take 1 (one) tablet by mouth at bedtime 5 Active carvedilol (Coreg) 12.5 MG tablet Take 1 (one) tablet by mouth 2 times daily with morning and evening meal 5 Active folic acid (Folvite) 1 MG tablet Take 1 (one) tablet by mouth once daily 5 Active cinacalcet (Sensipar) 30 MG tablet Take 1 (one) tablet by mouth daily with breakfast 5 Active clopidogrel (plaVIX) 75 MG tablet Take 1 (one) tablet by mouth once daily 5 Active Active Problems Problem Noted Date Diagnosed Date Secondary hyperparathyroidism 08/07/2025 Cerebrovascular accident (CV A) due to embolism of right middle cerebral artery 05/08/2025 Assessment & Plan (05/13/2025 9:27 PM CDT): Encephalopathy Syncope with abnormal neurologic exam / Acute encephalopathy: Likely related to underlying cerebrovascular disease; improving with supportive care. Continue frequent neuro checks and delirium precautions. Acute Ischemic Stroke (Right MCA territory) with additional small embolic infarcts (bilateral hemispheres)-MRI (04/28): Subacute infarct in right frontoparietal lobes (R MCA). Multiple chvcd-sf-[id number] small infarcts in left centrum semiovale and shin radiata (embolic pattern). CTA Head/Neck: Multifocal, severe intracranial arterial stenoses involving bilateral anterior, middle, posterior cerebral arteries and vertebrobasilar system. 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 RADHA: LVEF 55%, mild MR/AR, no MIL thrombus or intracardiac shunt. NSGY consulted--no discrete brain mass; no indication for biopsy. Current Management: s/p RADHA (normal) and loop recorder placement. Continue dual antiplatelet therapy (DAPT) per Neurology recommendation. Continue atorvastatin 40 mg daily.Monitor telemetry for arrhythmia; review loop recorder data when available. Concern for metastatic lesions in the brain and osseous metastases involving calvarium, axial, and appendicular skeleton. PET Scan: -Focal FDG activity in the right frontal region--suspicious for metastasis. -NSGY consulted for possible brain mass--no discrete lesion on MRI; no indication for biopsy. -Bulky uterus with possible fibroid and intense metabolic activity--suspicious for malignancy. -No FDG-avid lesion in the right mastectomy bed; no FDG-avid lymph nodes. CTA Head/Neck: -Skeletal lesions could also be from hyperparathyroidism. She has h/o breast cancer about 20 years ago. -CSF, Cytology (A): - Specimen consists of RBCs, lymphocytes and monocytes. Assessment & Plan (05/12/2025 3:01 PM CDT): Encephalopathy Syncope with abnormal neurologic exam / Acute encephalopathy: Likely related to underlying cerebrovascular disease; improving with supportive care. Continue frequent neuro checks and delirium precautions. Acute Ischemic Stroke (Right MCA territory) with additional small embolic infarcts (bilateral hemispheres)-MRI (04/28): Subacute infarct in right frontoparietal lobes (R MCA). Multiple wdrgp-ug-hhtfofwp small infarcts in left centrum semiovale and shin radiata (embolic pattern). CTA Head/Neck: Multifocal, severe intracranial arterial stenoses involving bilateral anterior, middle, posterior cerebral arteries and vertebrobasilar system. 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 RADHA: LVEF 55%, mild MR/AR, no MIL thrombus or intracardiac shunt. NSGY consulted--no discrete brain mass; no indication for biopsy. Current Management: s/p RADHA (normal) and loop recorder placement. Continue dual antiplatelet therapy (DAPT) per Neurology recommendation. Continue atorvastatin 40 mg daily.Monitor telemetry for arrhythmia; review loop recorder data when available. Concern for metastatic lesions in the brain and osseous metastases involving calvarium, axial, and appendicular skeleton. PET Scan: -Focal FDG activity in the right frontal region--suspicious for metastasis. -NSGY consulted for possible brain mass--no discrete lesion on MRI; no indication for biopsy. -Bulky uterus with possible fibroid and intense metabolic activity--suspicious for malignancy. -No FDG-avid lesion in the right mastectomy bed; no FDG-avid lymph nodes. CTA Head/Neck: -Skeletal lesions could also be from hyperparathyroidism. She has h/o breast cancer about 20 years ago. -CSF, Cytology (A): - Specimen consists of RBCs, lymphocytes and monocytes. Assessment & Plan (05/11/2025 4:41 PM CDT): Encephalopathy Syncope with abnormal neurologic exam / Acute encephalopathy: Likely related to underlying cerebrovascular disease; improving with supportive care. Continue frequent neuro checks and delirium precautions. Acute Ischemic Stroke (Right MCA territory) with additional small embolic infarcts (bilateral hemispheres)-MRI (04/28): Subacute infarct in right frontoparietal lobes (R MCA). Multiple xruga-ij-rlrfpiam small infarcts in left centrum semiovale and shin radiata (embolic pattern). CTA Head/Neck: Multifocal, severe intracranial arterial stenoses involving bilateral anterior, middle, posterior cerebral arteries and vertebrobasilar system. 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 RADHA: LVEF 55%, mild MR/AR, no MIL thrombus or intracardiac shunt. NSGY consulted--no discrete brain mass; no indication for biopsy. Current Management: s/p RADHA and loop recorder placement. Continue dual antiplatelet therapy (DAPT) per Neurology recommendation. Continue atorvastatin 40 mg daily.Monitor telemetry for arrhythmia; review loop recorder data when available. Concern for metastatic lesions in the brain and osseous metastases involving calvarium, axial, and appendicular skeleton. PET Scan: -Focal FDG activity in the right frontal region--suspicious for metastasis. -NSGY consulted for possible brain mass--no discrete lesion on MRI; no indication for biopsy. -Bulky uterus with possible fibroid and intense metabolic activity--suspicious for malignancy. -No FDG-avid lesion in the right mastectomy bed; no FDG-avid lymph nodes. CTA Head/Neck: -Skeletal lesions could also be from hyperparathyroidism. She has h/o breast cancer about 20 years ago. -CSF, Cytology (A): - Specimen consists of RBCs, lymphocytes and monocytes. Assessment & Plan (05/10/2025 8:50 PM CDT): Encephalopathy Syncope with abnormal neurologic exam / Acute encephalopathy: Likely related to underlying cerebrovascular disease; improving with supportive care. Continue frequent neuro checks and delirium precautions. Acute Ischemic Stroke (Right MCA territory) with additional small embolic infarcts (bilateral hemispheres)-MRI (04/28): Subacute infarct in right frontoparietal lobes (R MCA). Multiple srygt-ii-pdebcrjk small infarcts in left centrum semiovale and shin radiata (embolic pattern). CTA Head/Neck: Multifocal, severe intracranial arterial stenoses involving bilateral anterior, middle, posterior cerebral arteries and vertebrobasilar system. 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 RADHA: LVEF 55%, mild MR/AR, no MIL thrombus or intracardiac shunt. NSGY consulted--no discrete brain mass; no indication for biopsy. Current Management: s/p RADHA and loop recorder placement. Continue dual antiplatelet therapy (DAPT) per Neurology recommendation. Continue atorvastatin 40 mg daily.Monitor telemetry for arrhythmia; review loop recorder data when available. Concern for metastatic lesions in the brain and osseous metastases involving calvarium, axial, and appendicular skeleton. PET Scan: -Focal FDG activity in the right frontal region--suspicious for metastasis. -NSGY consulted for possible brain mass--no discrete lesion on MRI; no indication for biopsy. -Bulky uterus with possible fibroid and intense metabolic activity--suspicious for malignancy. -No FDG-avid lesion in the right mastectomy bed; no FDG-avid lymph nodes. CTA Head/Neck: -Skeletal lesions could also be from hyperparathyroidism. She has h/o breast cancer about 20 years ago. -CSF, Cytology (A): - Specimen consists of RBCs, lymphocytes and monocytes. Assessment & Plan (05/09/2025 7:34 PM CDT): Encephalopathy / Stroke Workup to Date: MRI Brain (04/28/25): -Subacute infarction in the right frontoparietal lobes (R MCA territory) with some restricted diffusion concerning for acute infarction. -Multiple cehbw-vy-rlwxxzfg small infarcts scattered in the left centrum semiovale and shin radiata, concerning for embolic stroke. -CT Head and Neck with multifocal irregular up to severe stenosis of the bilateral anterior, middle and posterior cerebral arteries, more pronounced in the right MCA, and up to severe irregular stenosis of the V4 segments of the vertebral arteries and the entire basilar artery. There was concern for CHILD ADOLESCENT PSYCHIATRIST vasculitis, however LP CSF studies are not c/w vasculitis. Rheumatology evaluated and signed off NSGY consulted for possible brain mass--no discrete lesion on MRI; no indication for biopsy. Additional Studies / Interventions: TTE: EF 55%, no intracardiac shunt. LEX negative; ANCA <1:20, PR3 = 0, MPO = 0; SPEP negative Neurology/Stroke Team recommended: - RADHA and Loop recorder; contacted cardiology and scheduled RADHA for tomorrow - Continue DAPT in the meantime -Continue atorvastatin 40 mg daily. Concern for metastatic lesions in the brain and osseous metastases involving calvarium, axial, and appendicular skeleton. PET Scan: -Focal FDG activity in the right frontal region--suspicious for metastasis. -NSGY consulted for possible brain mass--no discrete lesion on MRI; no indication for biopsy. -Bulky uterus with possible fibroid and intense metabolic activity--suspicious for malignancy. -No FDG-avid lesion in the right mastectomy bed; no FDG-avid lymph nodes. CTA Head/Neck: -Skeletal lesions could also be from hyperparathyroidism. She has h/o breast cancer about 20 years ago. -CSF cytology pending Assessment & Plan (05/08/2025 8:39 PM CDT): Encephalopathy / Stroke Workup to Date: MRI Brain (04/28/25): -Subacute infarction in the right frontoparietal lobes (R MCA territory) with some restricted diffusion concerning for acute infarction. -Multiple jpkpj-af-duynxvby small infarcts scattered in the left centrum semiovale and shin radiata, concerning for embolic stroke. -CT Head and Neck with multifocal irregular up to severe stenosis of the bilateral anterior, middle and posterior cerebral arteries, more pronounced in the right MCA, and up to severe irregular stenosis of the V4 segments of the vertebral arteries and the entire basilar artery. There was concern for CHILD ADOLESCENT PSYCHIATRIST vasculitis, however LP CSF studies. Rheumatology evaluated and signed off NSGY consulted for possible brain mass--no discrete lesion on MRI; no indication for biopsy. Additional Studies / Interventions: TTE: EF 55%, no intracardiac shunt. LEX negative; ANCA <1:20, PR3 = 0, MPO = 0. Neurology/Stroke Team today recommended: - RADHA and Loop recorder - Continue DAPT in the meantime -Continue atorvastatin 40 mg daily. Concern for metastatic lesions in the brain and osseous metastases involving calvarium, axial, and appendicular skeleton. PET Scan: -Focal FDG activity in the right frontal region--suspicious for metastasis. -Bulky uterus with possible fibroid and intense metabolic activity--suspicious for malignancy. -No FDG-avid lesion in the right mastectomy bed; no FDG-avid lymph nodes. CTA Head/Neck: -Skeletal lesions could also be from hyperparathyroidism. She has h/o breast cancer about 20 years ago. Acute ischemic left MCA stroke 05/08/2025 Assessment & Plan (05/13/2025 9:27 PM CDT): Encephalopathy Syncope with abnormal neurologic exam / Acute encephalopathy: Likely related to underlying cerebrovascular disease; improving with supportive care. Continue frequent neuro checks and delirium precautions. Acute Ischemic Stroke (Right MCA territory) with additional small embolic infarcts (bilateral hemispheres)-MRI (04/28): Subacute infarct in right frontoparietal lobes (R MCA). Multiple kutvo-fn-bbhmqcqh small infarcts in left centrum semiovale and shin radiata (embolic pattern). CTA Head/Neck: Multifocal, severe intracranial arterial stenoses involving bilateral anterior, middle, posterior cerebral arteries and vertebrobasilar system. 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 RADHA: LVEF 55%, mild MR/AR, no MIL thrombus or intracardiac shunt. NSGY consulted--no discrete brain mass; no indication for biopsy. Current Management: s/p RADHA (normal) and loop recorder placement. Continue dual antiplatelet therapy (DAPT) per Neurology recommendation. Continue atorvastatin 40 mg daily.Monitor telemetry for arrhythmia; review loop recorder data when available. Concern for metastatic lesions in the brain and osseous metastases involving calvarium, axial, and appendicular skeleton. PET Scan: -Focal FDG activity in the right frontal region--suspicious for metastasis. -NSGY consulted for possible brain mass--no discrete lesion on MRI; no indication for biopsy. -Bulky uterus with possible fibroid and intense metabolic activity--suspicious for malignancy. -No FDG-avid lesion in the right mastectomy bed; no FDG-avid lymph nodes. CTA Head/Neck: -Skeletal lesions could also be from hyperparathyroidism. She has h/o breast cancer about 20 years ago. -CSF, Cytology (A): - Specimen consists of RBCs, lymphocytes and monocytes. Assessment & Plan (05/12/2025 3:01 PM CDT): Encephalopathy Syncope with abnormal neurologic exam / Acute encephalopathy: Likely related to underlying cerebrovascular disease; improving with supportive care. Continue frequent neuro checks and delirium precautions. Acute Ischemic Stroke (Right MCA territory) with additional small embolic infarcts (bilateral hemispheres)-MRI (04/28): Subacute infarct in right frontoparietal lobes (R MCA). Multiple yqmjz-uu-nnroaxdd small infarcts in left centrum semiovale and shin radiata (embolic pattern). CTA Head/Neck: Multifocal, severe intracranial arterial stenoses involving bilateral anterior, middle, posterior cerebral arteries and vertebrobasilar system. 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 RADHA: LVEF 55%, mild MR/AR, no MIL thrombus or intracardiac shunt. NSGY consulted--no discrete brain mass; no indication for biopsy. Current Management: s/p RADHA (normal) and loop recorder placement. Continue dual antiplatelet therapy (DAPT) per Neurology recommendation. Continue atorvastatin 40 mg daily.Monitor telemetry for arrhythmia; review loop recorder data when available. Concern for metastatic lesions in the brain and osseous metastases involving calvarium, axial, and appendicular skeleton. PET Scan: -Focal FDG activity in the right frontal region--suspicious for metastasis. -NSGY consulted for possible brain mass--no discrete lesion on MRI; no indication for biopsy. -Bulky uterus with possible fibroid and intense metabolic activity--suspicious for malignancy. -No FDG-avid lesion in the right mastectomy bed; no FDG-avid lymph nodes. CTA Head/Neck: -Skeletal lesions could also be from hyperparathyroidism. She has h/o breast cancer about 20 years ago. -CSF, Cytology (A): - Specimen consists of RBCs, lymphocytes and monocytes. Assessment & Plan (05/11/2025 4:41 PM CDT): Encephalopathy Syncope with abnormal neurologic exam / Acute encephalopathy: Likely related to underlying cerebrovascular disease; improving with supportive care. Continue frequent neuro checks and delirium precautions. Acute Ischemic Stroke (Right MCA territory) with additional small embolic infarcts (bilateral hemispheres)-MRI (04/28): Subacute infarct in right frontoparietal lobes (R MCA). Multiple jywoi-vo-hkrvipgj small infarcts in left centrum semiovale and shin radiata (embolic pattern). CTA Head/Neck: Multifocal, severe intracranial arterial stenoses involving bilateral anterior, middle, posterior cerebral arteries and vertebrobasilar system. 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 RADHA: LVEF 55%, mild MR/AR, no MIL thrombus or intracardiac shunt. NSGY consulted--no discrete brain mass; no indication for biopsy. Current Management: s/p RADHA and loop recorder placement. Continue dual antiplatelet therapy (DAPT) per Neurology recommendation. Continue atorvastatin 40 mg daily.Monitor telemetry for arrhythmia; review loop recorder data when available. Concern for metastatic lesions in the brain and osseous metastases involving calvarium, axial, and appendicular skeleton. PET Scan: -Focal FDG activity in the right frontal region--suspicious for metastasis. -NSGY consulted for possible brain mass--no discrete lesion on MRI; no indication for biopsy. -Bulky uterus with possible fibroid and intense metabolic activity--suspicious for malignancy. -No FDG-avid lesion in the right mastectomy bed; no FDG-avid lymph nodes. CTA Head/Neck: -Skeletal lesions could also be from hyperparathyroidism. She has h/o breast cancer about 20 years ago. -CSF, Cytology (A): - Specimen consists of RBCs, lymphocytes and monocytes. Assessment & Plan (05/10/2025 8:50 PM CDT): Encephalopathy Syncope with abnormal neurologic exam / Acute encephalopathy: Likely related to underlying cerebrovascular disease; improving with supportive care. Continue frequent neuro checks and delirium precautions. Acute Ischemic Stroke (Right MCA territory) with additional small embolic infarcts (bilateral hemispheres)-MRI (04/28): Subacute infarct in right frontoparietal lobes (R MCA). Multiple zgjfx-vm-gaqcwqhw small infarcts in left centrum semiovale and shin radiata (embolic pattern). CTA Head/Neck: Multifocal, severe intracranial arterial stenoses involving bilateral anterior, middle, posterior cerebral arteries and vertebrobasilar system. 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 RADHA: LVEF 55%, mild MR/AR, no MIL thrombus or intracardiac shunt. NSGY consulted--no discrete brain mass; no indication for biopsy. Current Management: s/p RADHA and loop recorder placement. Continue dual antiplatelet therapy (DAPT) per Neurology recommendation. Continue atorvastatin 40 mg daily.Monitor telemetry for arrhythmia; review loop recorder data when available. Concern for metastatic lesions in the brain and osseous metastases involving calvarium, axial, and appendicular skeleton. PET Scan: -Focal FDG activity in the right frontal region--suspicious for metastasis. -NSGY consulted for possible brain mass--no discrete lesion on MRI; no indication for biopsy. -Bulky uterus with possible fibroid and intense metabolic activity--suspicious for malignancy. -No FDG-avid lesion in the right mastectomy bed; no FDG-avid lymph nodes. CTA Head/Neck: -Skeletal lesions could also be from hyperparathyroidism. She has h/o breast cancer about 20 years ago. -CSF, Cytology (A): - Specimen consists of RBCs, lymphocytes and monocytes. Assessment & Plan (05/09/2025 7:34 PM CDT): Encephalopathy / Stroke Workup to Date: MRI Brain (04/28/25): -Subacute infarction in the right frontoparietal lobes (R MCA territory) with some restricted diffusion concerning for acute infarction. -Multiple wnycs-vg-lcgvlmte small infarcts scattered in the left centrum semiovale and shin radiata, concerning for embolic stroke. -CT Head and Neck with multifocal irregular up to severe stenosis of the bilateral anterior, middle and posterior cerebral arteries, more pronounced in the right MCA, and up to severe irregular stenosis of the V4 segments of the vertebral arteries and the entire basilar artery. There was concern for CHILD ADOLESCENT PSYCHIATRIST vasculitis, however LP CSF studies are not c/w vasculitis. Rheumatology evaluated and signed off NSGY consulted for possible brain mass--no discrete lesion on MRI; no indication for biopsy. Additional Studies / Interventions: TTE: EF 55%, no intracardiac shunt. LEX negative; ANCA <1:20, PR3 = 0, MPO = 0; SPEP negative Neurology/Stroke Team recommended: - RADHA and Loop recorder; contacted cardiology and scheduled RADHA for tomorrow - Continue DAPT in the meantime -Continue atorvastatin 40 mg daily. Concern for metastatic lesions in the brain and osseous metastases involving calvarium, axial, and appendicular skeleton. PET Scan: -Focal FDG activity in the right frontal region--suspicious for metastasis. -NSGY consulted for possible brain mass--no discrete lesion on MRI; no indication for biopsy. -Bulky uterus with possible fibroid and intense metabolic activity--suspicious for malignancy. -No FDG-avid lesion in the right mastectomy bed; no FDG-avid lymph nodes. CTA Head/Neck: -Skeletal lesions could also be from hyperparathyroidism. She has h/o breast cancer about 20 years ago. -CSF cytology pending Assessment & Plan (05/08/2025 8:39 PM CDT): Encephalopathy / Stroke Workup to Date: MRI Brain (04/28/25): -Subacute infarction in the right frontoparietal lobes (R MCA territory) with some restricted diffusion concerning for acute infarction. -Multiple kqnyf-re-ewhuieyi small infarcts scattered in the left centrum semiovale and shin radiata, concerning for embolic stroke. -CT Head and Neck with multifocal irregular up to severe stenosis of the bilateral anterior, middle and posterior cerebral arteries, more pronounced in the right MCA, and up to severe irregular stenosis of the V4 segments of the vertebral arteries and the entire basilar artery. There was concern for CHILD ADOLESCENT PSYCHIATRIST vasculitis, however LP CSF studies. Rheumatology evaluated and signed off NSGY consulted for possible brain mass--no discrete lesion on MRI; no indication for biopsy. Additional Studies / Interventions: TTE: EF 55%, no intracardiac shunt. LEX negative; ANCA <1:20, PR3 = 0, MPO = 0. Neurology/Stroke Team today recommended: - RADHA and Loop recorder - Continue DAPT in the meantime -Continue atorvastatin 40 mg daily. Concern for metastatic lesions in the brain and osseous metastases involving calvarium, axial, and appendicular skeleton. PET Scan: -Focal FDG activity in the right frontal region--suspicious for metastasis. -Bulky uterus with possible fibroid and intense metabolic activity--suspicious for malignancy. -No FDG-avid lesion in the right mastectomy bed; no FDG-avid lymph nodes. CTA Head/Neck: -Skeletal lesions could also be from hyperparathyroidism. She has h/o breast cancer about 20 years ago. Vaginal bleeding 05/04/2025 Assessment & Plan (05/07/2025 9:11 PM CDT): Admitted with Hgb 6.8 g/dL, normocytic (normal MCV). Differential diagnosis included iron deficiency, B12/folate deficiency, and hemolysis. Ferritin elevated at 1497 with normal iron levels, suggestive of anemia of chronic disease. Plan: Transfused 2 units PRBC. Patient hemodynamically stable; continue monitoring with CBC every 24 hours. Nursing noted vaginal bleeding; patient is postmenopausal. PET scan concerning for uterine mass. TVUS performed on 05/07. OBGYN evaluated on 05/06 and attempted bedside endometrial biopsy (EMB), but procedure aborted due to resistance at internal os and patient intolerance to further advancement. Assessment & Plan (05/06/2025 3:34 PM CDT): Pt has Hgb of 6.8, normal MCV. Deferential diagnosis including iron deficiency, b12, b9, and hemolytic. Ct was negative for bleeding -Ferritin 1497 with normal iron, likely indicated anemia of chronic disease Plan: - two blood units has been transfused - Patient HDS. CTM with q24 CBC - Patient noted to have vaginal bleeding by nursing. Pt is post menopausal. - Obtain TVUS (PET noted c/f uterine mass), OBGYN consulted - tentative plans to evaluate today, poss endometrial biopsy Assessment & Plan (05/05/2025 12:11 PM CDT): Pt has Hgb of 6.8, normal MCV. Deferential diagnosis including iron deficiency, b12, b9, and hemolytic. Ct was negative for bleeding -Ferritin 1497 with normal iron, likely indicated anemia of chronic disease Plan: - two blood units has been transfused - Patient HDS. CTM with q24 CBC - Patient noted to have vaginal bleeding by nursing. Pt is post menopausal. - Obtain TVUS (PET noted c/f uterine mass), will d/w OBGYN once TVUS results or if having significant bleeding Assessment & Plan (05/04/2025 1:17 PM CDT): Pt has Hgb of 6.8, normal MCV. Deferential diagnosis including iron deficiency, b12, b9, and hemolytic. Ct was negative for bleeding -Ferritin 1497 with normal iron, likely indicated anemia of chronic disease Plan: - two blood units has been transfused - Patient HDS. CTM with q24 CBC - Patient noted to have vaginal bleeding by nursing. - Obtain TVUS and OBGYN consulted, no response at this time. Uterine mass 05/04/2025 Assessment & Plan (06/20/2025 1:28 PM CDT): Referral to MFM and pt provided with the scheduling phone number Assessment & Plan (05/13/2025 9:27 PM CDT): Encephalopathy Syncope with abnormal neurologic exam / Acute encephalopathy: Likely related to underlying cerebrovascular disease; improving with supportive care. Continue frequent neuro checks and delirium precautions. Acute Ischemic Stroke (Right MCA territory) with additional small embolic infarcts (bilateral hemispheres)-MRI (04/28): Subacute infarct in right frontoparietal lobes (R MCA). Multiple swtov-mv-vfumqagm small infarcts in left centrum semiovale and shin radiata (embolic pattern). CTA Head/Neck: Multifocal, severe intracranial arterial stenoses involving bilateral anterior, middle, posterior cerebral arteries and vertebrobasilar system. 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 RADHA: LVEF 55%, mild MR/AR, no MIL thrombus or intracardiac shunt. NSGY consulted--no discrete brain mass; no indication for biopsy. Current Management: s/p RADHA (normal) and loop recorder placement. Continue dual antiplatelet therapy (DAPT) per Neurology recommendation. Continue atorvastatin 40 mg daily.Monitor telemetry for arrhythmia; review loop recorder data when available. Concern for metastatic lesions in the brain and osseous metastases involving calvarium, axial, and appendicular skeleton. PET Scan: -Focal FDG activity in the right frontal region--suspicious for metastasis. -NSGY consulted for possible brain mass--no discrete lesion on MRI; no indication for biopsy. -Bulky uterus with possible fibroid and intense metabolic activity--suspicious for malignancy. -No FDG-avid lesion in the right mastectomy bed; no FDG-avid lymph nodes. CTA Head/Neck: -Skeletal lesions could also be from hyperparathyroidism. She has h/o breast cancer about 20 years ago. -CSF, Cytology (A): - Specimen consists of RBCs, lymphocytes and monocytes. Assessment & Plan (05/12/2025 3:01 PM CDT): Encephalopathy Syncope with abnormal neurologic exam / Acute encephalopathy: Likely related to underlying cerebrovascular disease; improving with supportive care. Continue frequent neuro checks and delirium precautions. Acute Ischemic Stroke (Right MCA territory) with additional small embolic infarcts (bilateral hemispheres)-MRI (04/28): Subacute infarct in right frontoparietal lobes (R MCA). Multiple yiozm-ul-tvdxbhzn small infarcts in left centrum semiovale and shin radiata (embolic pattern). CTA Head/Neck: Multifocal, severe intracranial arterial stenoses involving bilateral anterior, middle, posterior cerebral arteries and vertebrobasilar system. 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 RADHA: LVEF 55%, mild MR/AR, no MIL thrombus or intracardiac shunt. NSGY consulted--no discrete brain mass; no indication for biopsy. Current Management: s/p RADHA (normal) and loop recorder placement. Continue dual antiplatelet therapy (DAPT) per Neurology recommendation. Continue atorvastatin 40 mg daily.Monitor telemetry for arrhythmia; review loop recorder data when available. Concern for metastatic lesions in the brain and osseous metastases involving calvarium, axial, and appendicular skeleton. PET Scan: -Focal FDG activity in the right frontal region--suspicious for metastasis. -NSGY consulted for possible brain mass--no discrete lesion on MRI; no indication for biopsy. -Bulky uterus with possible fibroid and intense metabolic activity--suspicious for malignancy. -No FDG-avid lesion in the right mastectomy bed; no FDG-avid lymph nodes. CTA Head/Neck: -Skeletal lesions could also be from hyperparathyroidism. She has h/o breast cancer about 20 years ago. -CSF, Cytology (A): - Specimen consists of RBCs, lymphocytes and monocytes. Assessment & Plan (05/11/2025 4:41 PM CDT): Encephalopathy Syncope with abnormal neurologic exam / Acute encephalopathy: Likely related to underlying cerebrovascular disease; improving with supportive care. Continue frequent neuro checks and delirium precautions. Acute Ischemic Stroke (Right MCA territory) with additional small embolic infarcts (bilateral hemispheres)-MRI (04/28): Subacute infarct in right frontoparietal lobes (R MCA). Multiple sntrs-lq-dijycekt small infarcts in left centrum semiovale and shin radiata (embolic pattern). CTA Head/Neck: Multifocal, severe intracranial arterial stenoses involving bilateral anterior, middle, posterior cerebral arteries and vertebrobasilar system. 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 RADHA: LVEF 55%, mild MR/AR, no MIL thrombus or intracardiac shunt. NSGY consulted--no discrete brain mass; no indication for biopsy. Current Management: s/p RADHA and loop recorder placement. Continue dual antiplatelet therapy (DAPT) per Neurology recommendation. Continue atorvastatin 40 mg daily.Monitor telemetry for arrhythmia; review loop recorder data when available. Concern for metastatic lesions in the brain and osseous metastases involving calvarium, axial, and appendicular skeleton. PET Scan: -Focal FDG activity in the right frontal region--suspicious for metastasis. -NSGY consulted for possible brain mass--no discrete lesion on MRI; no indication for biopsy. -Bulky uterus with possible fibroid and intense metabolic activity--suspicious for malignancy. -No FDG-avid lesion in the right mastectomy bed; no FDG-avid lymph nodes. CTA Head/Neck: -Skeletal lesions could also be from hyperparathyroidism. She has h/o breast cancer about 20 years ago. -CSF, Cytology (A): - Specimen consists of RBCs, lymphocytes and monocytes. Assessment & Plan (05/10/2025 8:50 PM CDT): Encephalopathy Syncope with abnormal neurologic exam / Acute encephalopathy: Likely related to underlying cerebrovascular disease; improving with supportive care. Continue frequent neuro checks and delirium precautions. Acute Ischemic Stroke (Right MCA territory) with additional small embolic infarcts (bilateral hemispheres)-MRI (04/28): Subacute infarct in right frontoparietal lobes (R MCA). Multiple mvbny-zr-znbhjuhb small infarcts in left centrum semiovale and shin radiata (embolic pattern). CTA Head/Neck: Multifocal, severe intracranial arterial stenoses involving bilateral anterior, middle, posterior cerebral arteries and vertebrobasilar system. 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 RADHA: LVEF 55%, mild MR/AR, no MIL thrombus or intracardiac shunt. NSGY consulted--no discrete brain mass; no indication for biopsy. Current Management: s/p RADHA and loop recorder placement. Continue dual antiplatelet therapy (DAPT) per Neurology recommendation. Continue atorvastatin 40 mg daily.Monitor telemetry for arrhythmia; review loop recorder data when available. Concern for metastatic lesions in the brain and osseous metastases involving calvarium, axial, and appendicular skeleton. PET Scan: -Focal FDG activity in the right frontal region--suspicious for metastasis. -NSGY consulted for possible brain mass--no discrete lesion on MRI; no indication for biopsy. -Bulky uterus with possible fibroid and intense metabolic activity--suspicious for malignancy. -No FDG-avid lesion in the right mastectomy bed; no FDG-avid lymph nodes. CTA Head/Neck: -Skeletal lesions could also be from hyperparathyroidism. She has h/o breast cancer about 20 years ago. -CSF, Cytology (A): - Specimen consists of RBCs, lymphocytes and monocytes. Assessment & Plan (05/09/2025 7:34 PM CDT): Encephalopathy / Stroke Workup to Date: MRI Brain (04/28/25): -Subacute infarction in the right frontoparietal lobes (R MCA territory) with some restricted diffusion concerning for acute infarction. -Multiple inbcq-pl-fvxfzuhf small infarcts scattered in the left centrum semiovale and shin radiata, concerning for embolic stroke. -CT Head and Neck with multifocal irregular up to severe stenosis of the bilateral anterior, middle and posterior cerebral arteries, more pronounced in the right MCA, and up to severe irregular stenosis of the V4 segments of the vertebral arteries and the entire basilar artery. There was concern for CHILD ADOLESCENT PSYCHIATRIST vasculitis, however LP CSF studies are not c/w vasculitis. Rheumatology evaluated and signed off NSGY consulted for possible brain mass--no discrete lesion on MRI; no indication for biopsy. Additional Studies / Interventions: TTE: EF 55%, no intracardiac shunt. LEX negative; ANCA <1:20, PR3 = 0, MPO = 0; SPEP negative Neurology/Stroke Team recommended: - RADHA and Loop recorder; contacted cardiology and scheduled RADHA for tomorrow - Continue DAPT in the meantime -Continue atorvastatin 40 mg daily. Concern for metastatic lesions in the brain and osseous metastases involving calvarium, axial, and appendicular skeleton. PET Scan: -Focal FDG activity in the right frontal region--suspicious for metastasis. -NSGY consulted for possible brain mass--no discrete lesion on MRI; no indication for biopsy. -Bulky uterus with possible fibroid and intense metabolic activity--suspicious for malignancy. -No FDG-avid lesion in the right mastectomy bed; no FDG-avid lymph nodes. CTA Head/Neck: -Skeletal lesions could also be from hyperparathyroidism. She has h/o breast cancer about 20 years ago. -CSF cytology pending Assessment & Plan (05/08/2025 8:39 PM CDT): Encephalopathy / Stroke Workup to Date: MRI Brain (04/28/25): -Subacute infarction in the right frontoparietal lobes (R MCA territory) with some restricted diffusion concerning for acute infarction. -Multiple zotcc-jj-ksfsrplx small infarcts scattered in the left centrum semiovale and shin radiata, concerning for embolic stroke. -CT Head and Neck with multifocal irregular up to severe stenosis of the bilateral anterior, middle and posterior cerebral arteries, more pronounced in the right MCA, and up to severe irregular stenosis of the V4 segments of the vertebral arteries and the entire basilar artery. There was concern for CHILD ADOLESCENT PSYCHIATRIST vasculitis, however LP CSF studies. Rheumatology evaluated and signed off NSGY consulted for possible brain mass--no discrete lesion on MRI; no indication for biopsy. Additional Studies / Interventions: TTE: EF 55%, no intracardiac shunt. LEX negative; ANCA <1:20, PR3 = 0, MPO = 0. Neurology/Stroke Team today recommended: - RADHA and Loop recorder - Continue DAPT in the meantime -Continue atorvastatin 40 mg daily. Concern for metastatic lesions in the brain and osseous metastases involving calvarium, axial, and appendicular skeleton. PET Scan: -Focal FDG activity in the right frontal region--suspicious for metastasis. -Bulky uterus with possible fibroid and intense metabolic activity--suspicious for malignancy. -No FDG-avid lesion in the right mastectomy bed; no FDG-avid lymph nodes. CTA Head/Neck: -Skeletal lesions could also be from hyperparathyroidism. She has h/o breast cancer about 20 years ago. Assessment & Plan (05/07/2025 9:11 PM CDT): Admitted with Hgb 6.8 g/dL, normocytic (normal MCV). Differential diagnosis included iron deficiency, B12/folate deficiency, and hemolysis. Ferritin elevated at 1497 with normal iron levels, suggestive of anemia of chronic disease. Plan: Transfused 2 units PRBC. Patient hemodynamically stable; continue monitoring with CBC every 24 hours. Nursing noted vaginal bleeding; patient is postmenopausal. PET scan concerning for uterine mass. TVUS performed on 05/07. OBGYN evaluated on 05/06 and attempted bedside endometrial biopsy (EMB), but procedure aborted due to resistance at internal os and patient intolerance to further advancement. Assessment & Plan (05/06/2025 3:34 PM CDT): Pt has Hgb of 6.8, normal MCV. Deferential diagnosis including iron deficiency, b12, b9, and hemolytic. Ct was negative for bleeding -Ferritin 1497 with normal iron, likely indicated anemia of chronic disease Plan: - two blood units has been transfused - Patient HDS. CTM with q24 CBC - Patient noted to have vaginal bleeding by nursing. Pt is post menopausal. - Obtain TVUS (PET noted c/f uterine mass), OBGYN consulted - tentative plans to evaluate today, poss endometrial biopsy Assessment & Plan (05/05/2025 12:11 PM CDT): Pt has Hgb of 6.8, normal MCV. Deferential diagnosis including iron deficiency, b12, b9, and hemolytic. Ct was negative for bleeding -Ferritin 1497 with normal iron, likely indicated anemia of chronic disease Plan: - two blood units has been transfused - Patient HDS. CTM with q24 CBC - Patient noted to have vaginal bleeding by nursing. Pt is post menopausal. - Obtain TVUS (PET noted c/f uterine mass), will d/w OBGYN once TVUS results or if having significant bleeding Assessment & Plan (05/04/2025 1:17 PM CDT): Pt has Hgb of 6.8, normal MCV. Deferential diagnosis including iron deficiency, b12, b9, and hemolytic. Ct was negative for bleeding -Ferritin 1497 with normal iron, likely indicated anemia of chronic disease Plan: - two blood units has been transfused - Patient HDS. CTM with q24 CBC - Patient noted to have vaginal bleeding by nursing. - Obtain TVUS and OBGYN consulted, no response at this time. Hypocalcemia 05/01/2025 Assessment & Plan (05/07/2025 9:11 PM CDT): Labs: PTH 1633.6 pg/mL; TSH 1.328 IU/mL. Imaging: CT CAP (04/28/25): 1.7 cm discrete nodule posterior to the right lobe of the thyroid--possible thyroid vs parathyroid adenoma. Thyroid Ultrasound: 1.4 cm hypoechoic lesion in the posterior lateral aspect of the left thyroid and 1.6 cm hypoechoic lesion posterior to the right thyroid, most consistent with parathyroid adenomas. Calcium: Within normal limits when adjusted, but ionized calcium is low (hypocalcemic). Plan: SPEP negative (patient is anuric, so UPEP not feasible). Continue home cinacalcet. Start vitamin D 50,000 units weekly for 6 weeks. Sestamibi Scan: Suggestive of two parathyroid adenomas. ENT consulted; will discuss with parathyroid specialists. No urgent surgical intervention indicated at this time. Awaiting goals of care discussion given concurrent malignancy and vasculitis workup. Will re-engage ENT if decision made to pursue surgery. Assessment & Plan (05/06/2025 3:34 PM CDT): -PTH level 1633.6 and TSH level 1.328 -CT CAP 04/28/25: 1.7 cm discrete nodule posterior to the R lobe of the thyroid, could potentially represent thyroid vs parathyroid adenoma -Thyroid US: Shows 1.4 cm hypoechoic lesion in the posterior lateral aspect of the left thyroid and a 1.6 cm hypoechoic lesion posterior to the right thyroid most consistent with parathyroid adenomas. -Calcium WNL when adjusted, however hypocalcemic with ical. Plan: -Obtain SPEP, patient anuric so will unable to get UPEP -Continue home cinacalcet -Start on vitamin D 48480 units q7 days for 6 weeks. -Sestamibi scan-shows potential 2 adenomas present, consulted ENT - will d/w parathyroid specialists but no urgent operative intervention. Pending goals of care in background of malignancy and vasculitis workup. Reach out to ENT if decision made to pursue surgery. Assessment & Plan (05/05/2025 12:11 PM CDT): -PTH level 1633.6 and TSH level 1.328 -CT CAP 04/28/25: 1.7 cm discrete nodule posterior to the R lobe of the thyroid, could potentially represent thyroid vs parathyroid adenoma -Thyroid US: Shows 1.4 cm hypoechoic lesion in the posterior lateral aspect of the left thyroid and a 1.6 cm hypoechoic lesion posterior to the right thyroid most consistent with parathyroid adenomas. -Calcium WNL when adjusted, however hypocalcemic with ical. Plan: -Obtain SPEP, patient anuric so will unable to get UPEP -Continue home cinacalcet -Start on vitamin D 18254 units q7 days for 6 weeks. -Sestamibi scan-shows potential 2 adenomas present, consulted ENT - will d/w parathyroid specialists but no urgent operative intervention. Pending goals of care in background of malignancy and vasculitis workup. Reach out to ENT if decision made to pursue surgery. Assessment & Plan (05/04/2025 1:51 PM CDT): -PTH level 1633.6 and TSH level 1.328 -CT CAP 04/28/25: 1.7 cm discrete nodule posterior to the R lobe of the thyroid, could potentially represent thyroid vs parathyroid adenoma -Thyroid US: Shows 1.4 cm hypoechoic lesion in the posterior lateral aspect of the left thyroid and a 1.6 cm hypoechoic lesion posterior to the right thyroid most consistent with parathyroid adenomas. -Calcium WNL when adjusted, however hypocalcemic with ical. Plan: -Obtain SPEP, patient anuric so will unable to get UPEP -Continue home cinacalcet -Start on vitamin D 99727 units q7 days for 6 weeks. -Sestamibi scan-shows potential 2 adenomas present, Will consult ENT, appreciate recs Assessment & Plan (05/03/2025 11:14 AM CDT): -PTH level 1633.6 and TSH level 1.328 -CT CAP 04/28/25: 1.7 cm discrete nodule posterior to the R lobe of the thyroid, could potentially represent thyroid vs parathyroid adenoma -Thyroid US: Shows 1.4 cm hypoechoic lesion in the posterior lateral aspect of the left thyroid and a 1.6 cm hypoechoic lesion posterior to the right thyroid most consistent with parathyroid adenomas. -Calcium WNL when adjusted, however hypocalcemic with ical. Plan: -Obtain SPEP, patient anuric so will unable to get UPEP -Continue home cinacalcet -Start on vitamin D 70979 units q7 days for 6 weeks. -Sestamibi scan pending read Assessment & Plan (05/02/2025 1:40 PM CDT): -PTH level 1633.6 and TSH level 1.328 -CT CAP 04/28/25: 1.7 cm discrete nodule posterior to the R lobe of the thyroid, could potentially represent thyroid vs parathyroid adenoma -Thyroid US: Shows 1.4 cm hypoechoic lesion in the posterior lateral aspect of the left thyroid and a 1.6 cm hypoechoic lesion posterior to the right thyroid most consistent with parathyroid adenomas. -Calcium WNL when adjusted, however hypocalcemic with ical. Plan: -Obtain SPEP, patient anuric so will unable to get UPEP -Continue home cinacalcet -Start on vitamin D 73429 units q7 days for 6 weeks. -Sestamibi scan ordered Assessment & Plan (05/01/2025 3:32 PM CDT): -PTH level 1633.6 and TSH level 1.328 -CT CAP 04/28/25: 1.7 cm discrete nodule posterior to the R lobe of the thyroid, could potentially represent thyroid vs parathyroid adenoma -Thyroid US: Shows 1.4 cm hypoechoic lesion in the posterior lateral aspect of the left thyroid and a 1.6 cm hypoechoic lesion posterior to the right thyroid most consistent with parathyroid adenomas. -Calcium WNL when adjusted, however hypocalcemic with ical. Plan: -Obtain SPEP, patient anuric so will unable to get UPEP -Continue home cinacalcet -Start on vitamin D 67699 units q7 days for 6 weeks. -Sestamibi scan ordered Syncope with abnormal neurologic examination Assessment & Plan (05/13/2025 9:27 PM CDT): Encephalopathy Syncope with abnormal neurologic exam / Acute encephalopathy: Likely related to underlying cerebrovascular disease; improving with supportive care. Continue frequent neuro checks and delirium precautions. Acute Ischemic Stroke (Right MCA territory) with additional small embolic infarcts (bilateral hemispheres)-MRI (04/28): Subacute infarct in right frontoparietal lobes (R MCA). Multiple vjupz-hh-usvzpbfj small infarcts in left centrum semiovale and shin radiata (embolic pattern). CTA Head/Neck: Multifocal, severe intracranial arterial stenoses involving bilateral anterior, middle, posterior cerebral arteries and vertebrobasilar system. 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 RADHA: LVEF 55%, mild MR/AR, no MIL thrombus or intracardiac shunt. NSGY consulted--no discrete brain mass; no indication for biopsy. Current Management: s/p RADHA (normal) and loop recorder placement. Continue dual antiplatelet therapy (DAPT) per Neurology recommendation. Continue atorvastatin 40 mg daily.Monitor telemetry for arrhythmia; review loop recorder data when available. Concern for metastatic lesions in the brain and osseous metastases involving calvarium, axial, and appendicular skeleton. PET Scan: -Focal FDG activity in the right frontal region--suspicious for metastasis. -NSGY consulted for possible brain mass--no discrete lesion on MRI; no indication for biopsy. -Bulky uterus with possible fibroid and intense metabolic activity--suspicious for malignancy. -No FDG-avid lesion in the right mastectomy bed; no FDG-avid lymph nodes. CTA Head/Neck: -Skeletal lesions could also be from hyperparathyroidism. She has h/o breast cancer about 20 years ago. -CSF, Cytology (A): - Specimen consists of RBCs, lymphocytes and monocytes. Assessment & Plan (05/12/2025 3:01 PM CDT): Encephalopathy Syncope with abnormal neurologic exam / Acute encephalopathy: Likely related to underlying cerebrovascular disease; improving with supportive care. Continue frequent neuro checks and delirium precautions. Acute Ischemic Stroke (Right MCA territory) with additional small embolic infarcts (bilateral hemispheres)-MRI (04/28): Subacute infarct in right frontoparietal lobes (R MCA). Multiple faayp-[id number]-fdtuxlxp small infarcts in left centrum semiovale and shin radiata (embolic pattern). CTA Head/Neck: Multifocal, severe intracranial arterial stenoses involving bilateral anterior, middle, posterior cerebral arteries and vertebrobasilar system. 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 RADHA: LVEF 55%, mild MR/AR, no MIL thrombus or intracardiac shunt. NSGY consulted--no discrete brain mass; no indication for biopsy. Current Management: s/p RADHA (normal) and loop recorder placement. Continue dual antiplatelet therapy (DAPT) per Neurology recommendation. Continue atorvastatin 40 mg daily.Monitor telemetry for arrhythmia; review loop recorder data when available. Concern for metastatic lesions in the brain and osseous metastases involving calvarium, axial, and appendicular skeleton. PET Scan: -Focal FDG activity in the right frontal region--suspicious for metastasis. -NSGY consulted for possible brain mass--no discrete lesion on MRI; no indication for biopsy. -Bulky uterus with possible fibroid and intense metabolic activity--suspicious for malignancy. -No FDG-avid lesion in the right mastectomy bed; no FDG-avid lymph nodes. CTA Head/Neck: -Skeletal lesions could also be from hyperparathyroidism. She has h/o breast cancer about 20 years ago. -CSF, Cytology (A): - Specimen consists of RBCs, lymphocytes and monocytes. Assessment & Plan (05/11/2025 4:41 PM CDT): Encephalopathy Syncope with abnormal neurologic exam / Acute encephalopathy: Likely related to underlying cerebrovascular disease; improving with supportive care. Continue frequent neuro checks and delirium precautions. Acute Ischemic Stroke (Right MCA territory) with additional small embolic infarcts (bilateral hemispheres)-MRI (04/28): Subacute infarct in right frontoparietal lobes (R MCA). Multiple kecov-[id number] small infarcts in left centrum semiovale and shin radiata (embolic pattern). CTA Head/Neck: Multifocal, severe intracranial arterial stenoses involving bilateral anterior, middle, posterior cerebral arteries and vertebrobasilar system. 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 RADHA: LVEF 55%, mild MR/AR, no MIL thrombus or intracardiac shunt. NSGY consulted--no discrete brain mass; no indication for biopsy. Current Management: s/p RADHA and loop recorder placement. Continue dual antiplatelet therapy (DAPT) per Neurology recommendation. Continue atorvastatin 40 mg daily.Monitor telemetry for arrhythmia; review loop recorder data when available. Concern for metastatic lesions in the brain and osseous metastases involving calvarium, axial, and appendicular skeleton. PET Scan: -Focal FDG activity in the right frontal region--suspicious for metastasis. -NSGY consulted for possible brain mass--no discrete lesion on MRI; no indication for biopsy. -Bulky uterus with possible fibroid and intense metabolic activity--suspicious for malignancy. -No FDG-avid lesion in the right mastectomy bed; no FDG-avid lymph nodes. CTA Head/Neck: -Skeletal lesions could also be from hyperparathyroidism. She has h/o breast cancer about 20 years ago. -CSF, Cytology (A): - Specimen consists of RBCs, lymphocytes and monocytes. Assessment & Plan (05/10/2025 8:50 PM CDT): Encephalopathy Syncope with abnormal neurologic exam / Acute encephalopathy: Likely related to underlying cerebrovascular disease; improving with supportive care. Continue frequent neuro checks and delirium precautions. Acute Ischemic Stroke (Right MCA territory) with additional small embolic infarcts (bilateral hemispheres)-MRI (04/28): Subacute infarct in right frontoparietal lobes (R MCA). Multiple wozpw-[id number] small infarcts in left centrum semiovale and shin radiata (embolic pattern). CTA Head/Neck: Multifocal, severe intracranial arterial stenoses involving bilateral anterior, middle, posterior cerebral arteries and vertebrobasilar system. 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 RADHA: LVEF 55%, mild MR/AR, no MIL thrombus or intracardiac shunt. NSGY consulted--no discrete brain mass; no indication for biopsy. Current Management: s/p RADHA and loop recorder placement. Continue dual antiplatelet therapy (DAPT) per Neurology recommendation. Continue atorvastatin 40 mg daily.Monitor telemetry for arrhythmia; review loop recorder data when available. Concern for metastatic lesions in the brain and osseous metastases involving calvarium, axial, and appendicular skeleton. PET Scan: -Focal FDG activity in the right frontal region--suspicious for metastasis. -NSGY consulted for possible brain mass--no discrete lesion on MRI; no indication for biopsy. -Bulky uterus with possible fibroid and intense metabolic activity--suspicious for malignancy. -No FDG-avid lesion in the right mastectomy bed; no FDG-avid lymph nodes. CTA Head/Neck: -Skeletal lesions could also be from hyperparathyroidism. She has h/o breast cancer about 20 years ago. -CSF, Cytology (A): - Specimen consists of RBCs, lymphocytes and monocytes. Assessment & Plan (05/09/2025 7:34 PM CDT): Encephalopathy / Stroke Workup to Date: MRI Brain (04/28/25): -Subacute infarction in the right frontoparietal lobes (R MCA territory) with some restricted diffusion concerning for acute infarction. -Multiple txwfv-vu-wwjzgnab small infarcts scattered in the left centrum semiovale and shin radiata, concerning for embolic stroke. -CT Head and Neck with multifocal irregular up to severe stenosis of the bilateral anterior, middle and posterior cerebral arteries, more pronounced in the right MCA, and up to severe irregular stenosis of the V4 segments of the vertebral arteries and the entire basilar artery. There was concern for CHILD ADOLESCENT PSYCHIATRIST vasculitis, however LP CSF studies are not c/w vasculitis. Rheumatology evaluated and signed off NSGY consulted for possible brain mass--no discrete lesion on MRI; no indication for biopsy. Additional Studies / Interventions: TTE: EF 55%, no intracardiac shunt. LEX negative; ANCA <1:20, PR3 = 0, MPO = 0; SPEP negative Neurology/Stroke Team recommended: - RADHA and Loop recorder; contacted cardiology and scheduled RADHA for tomorrow - Continue DAPT in the meantime -Continue atorvastatin 40 mg daily. Concern for metastatic lesions in the brain and osseous metastases involving calvarium, axial, and appendicular skeleton. PET Scan: -Focal FDG activity in the right frontal region--suspicious for metastasis. -NSGY consulted for possible brain mass--no discrete lesion on MRI; no indication for biopsy. -Bulky uterus with possible fibroid and intense metabolic activity--suspicious for malignancy. -No FDG-avid lesion in the right mastectomy bed; no FDG-avid lymph nodes. CTA Head/Neck: -Skeletal lesions could also be from hyperparathyroidism. She has h/o breast cancer about 20 years ago. -CSF cytology pending Assessment & Plan (05/08/2025 8:39 PM CDT): Encephalopathy / Stroke Workup to Date: MRI Brain (04/28/25): -Subacute infarction in the right frontoparietal lobes (R MCA territory) with some restricted diffusion concerning for acute infarction. -Multiple jmeth-ce-ccmgeqlv small infarcts scattered in the left centrum semiovale and shin radiata, concerning for embolic stroke. -CT Head and Neck with multifocal irregular up to severe stenosis of the bilateral anterior, middle and posterior cerebral arteries, more pronounced in the right MCA, and up to severe irregular stenosis of the V4 segments of the vertebral arteries and the entire basilar artery. There was concern for CHILD ADOLESCENT PSYCHIATRIST vasculitis, however LP CSF studies. Rheumatology evaluated and signed off NSGY consulted for possible brain mass--no discrete lesion on MRI; no indication for biopsy. Additional Studies / Interventions: TTE: EF 55%, no intracardiac shunt. LEX negative; ANCA <1:20, PR3 = 0, MPO = 0. Neurology/Stroke Team today recommended: - RADHA and Loop recorder - Continue DAPT in the meantime -Continue atorvastatin 40 mg daily. Concern for metastatic lesions in the brain and osseous metastases involving calvarium, axial, and appendicular skeleton. PET Scan: -Focal FDG activity in the right frontal region--suspicious for metastasis. -Bulky uterus with possible fibroid and intense metabolic activity--suspicious for malignancy. -No FDG-avid lesion in the right mastectomy bed; no FDG-avid lymph nodes. CTA Head/Neck: -Skeletal lesions could also be from hyperparathyroidism. She has h/o breast cancer about 20 years ago. Assessment & Plan (05/07/2025 9:11 PM CDT): Encephalopathy / Stroke Workup to Date: Infectious/Metabolic: HIV negative, RPR negative, B12 and TSH within normal limits. MRI Brain (04/28/25): -Subacute infarction in the right frontoparietal lobes (R MCA territory) with some restricted diffusion concerning for acute infarction. -Multiple tivut-tx-pcbypqkt small infarcts scattered in the left centrum semiovale and shin radiata, concerning for embolic stroke. -Concern for metastatic lesions in the brain and osseous metastases involving calvarium, axial, and appendicular skeleton. PET Scan: -Focal FDG activity in the right frontal region--suspicious for metastasis. -Bulky uterus with possible fibroid and intense metabolic activity--suspicious for malignancy. -No FDG-avid lesion in the right mastectomy bed; no FDG-avid lymph nodes. CTA Head/Neck: -Multifocal, irregular stenosis (up to severe) of bilateral anterior, middle, and posterior cerebral arteries--most pronounced in the right MCA. 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 Additional Studies / Interventions: TTE: EF 55%, no intracardiac shunt. LEX negative; ANCA <1:20, PR3 = 0, MPO = 0. LP performed by Neuroradiology on 05/07; CSF studies pending. NSGY consulted for possible brain mass--no discrete lesion on MRI; no indication for biopsy. Records requested from [facility]; no relevant data received. Plan: Resume aspirin 81 mg daily and clopidogrel 75 mg daily after 6 hours post-LP (05/07). Continue atorvastatin 40 mg daily. Vasculitis workup in progress; appreciate Rheumatology recommendations. Goals of Care documented in ACP note. Neurology to determine need for DSA or further evaluation following LP results. Assessment & Plan (05/06/2025 3:34 PM CDT): -Ordered further encephalopathy workup: HIV-neg, RPR-neg, B12, WNL, TSH WNL -MRI brain 04/28/25: shows subacute infarction of the R frontoparietal lobs in R MCA territory, some concern for acute infarction due to restricted diffusion. Multiple acute to subacute small foci of infarction scattered within the L centrum semiovale and the L shin radiata. Concerning for embolic stroke -Concern for metastatic lesions noted in the brain and osseous metastasis involving calvarium and axial + appendicular skeleton-- PET scan ordered -PET scan: Focal areas of FDG activity in the R frontal region, suspicious for metastasis, bulky uterus with possible fibroid within the R lateral aspect with an intense increased metabolic activity, suspicious for malignancy. No FDG avid lesion in the R mastectomy bed to suggest local recurrence, no lymph nodes FDG active. -CTA shows multifocal irregular up to severe stenosis of the bilateral anterior, middle and posterior cerebral arteries, more pronounced in the R MCA and up to severe irregular stenosis in the V4 segments of the verteral arteries and the entire basilar artery. 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 Plan: -Obtained records from [facility], no relevant materials were provided unfortunately. -GOC as seen on ACP note -Neurology consulted, appreciate recs -- unsuccessful attempt bedside LP 05/02 - stroke service will follow up once LP performed by radiology to determine need for DSA or additional workup -NSGY consulted due to brain mass, not concerned for brain mass as not seen in MRI, no obvious lesion to biopsy. -TTE ordered for embolic workup-No shunt, EF of 55% -Hold home aspirin 81 mg daily and plavix 75 mg daily for potential LP on 05/07 with radiology -Continue atorvastatin 40 mg daily -Vasculitis workup still pending, appreciate rheum recs. -LEX neg -ANCA<1:20, PR3-0, MPO-0 Assessment & Plan (05/05/2025 12:11 PM CDT): -Ordered further encephalopathy workup: HIV-neg, RPR-neg, B12, WNL, TSH WNL -MRI brain 04/28/25: shows subacute infarction of the R frontoparietal lobs in R MCA territory, some concern for acute infarction due to restricted diffusion. Multiple acute to subacute small foci of infarction scattered within the L centrum semiovale and the L shin radiata. Concerning for embolic stroke -Concern for metastatic lesions noted in the brain and osseous metastasis involving calvarium and axial + appendicular skeleton-- PET scan ordered -PET scan: Focal areas of FDG activity in the R frontal region, suspicious for metastasis, bulky uterus with possible fibroid within the R lateral aspect with an intense increased metabolic activity, suspicious for malignancy. No FDG avid lesion in the R mastectomy bed to suggest local recurrence, no lymph nodes FDG active. -CTA shows multifocal irregular up to severe stenosis of the bilateral anterior, middle and posterior cerebral arteries, more pronounced in the R MCA and up to severe irregular stenosis in the V4 segments of the verteral arteries and the entire basilar artery. 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 Plan: -Obtained records from [facility], no relevant materials were provided unfortunately. -GOC as seen on ACP note -Neurology consulted, appreciate recs -- unsuccessful attempt bedside LP 05/02 - stroke service will follow up once LP performed by radiology to determine need for DSA or additional workup -NSGY consulted due to brain mass, not concerned for brain mass as not seen in MRI, no obvious lesion to biopsy. -TTE ordered for embolic workup-No shunt, EF of 55% -Hold home aspirin 81 mg daily and plavix 75 mg daily for potential LP on 05/06 vs 05/07 with radiology -Continue atorvastatin 40 mg daily -Vasculitis workup still pending, appreciate rheum recs. -LEX neg -ANCA<1:20, PR3-0, MPO-0 Assessment & Plan (05/04/2025 1:17 PM CDT): -Ordered further encephalopathy workup: HIV-neg, RPR-neg, B12, WNL, TSH WNL -MRI brain 04/28/25: shows subacute infarction of the R frontoparietal lobs in R MCA territory, some concern for acute infarction due to restricted diffusion. Multiple acute to subacute small foci of infarction scattered within the L centrum semiovale and the L shin radiata. Concerning for embolic stroke -Concern for metastatic lesions noted in the brain and osseous metastasis involving calvarium and axial + appendicular skeleton-- PET scan ordered -PET scan: Focal areas of FDG activity in the R frontal region, suspicious for metastasis, bulky uterus with possible fibroid within the R lateral aspect with an intense increased metabolic activity, suspicious for malignancy. No FDG avid lesion in the R mastectomy bed to suggest local recurrence, no lymph nodes FDG active. -CTA shows multifocal irregular up to severe stenosis of the bilateral anterior, middle and posterior cerebral arteries, more pronounced in the R MCA and up to severe irregular stenosis in the V4 segments of the verteral arteries and the entire basilar artery. 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 Plan: -Obtained records from [facility], no relevant materials were provided unfortunately. -GOC as seen on ACP note -Neurology consulted, appreciate recs -NSGY consulted due to brain mass, not concerned for brain mass as not seen in MRI, no obvious lesion to biopsy. -TTE ordered for embolic workup-No shunt, EF of 55% -Hold home aspirin 81 mg daily and plavix 75 mg daily for potential LP on 05/06 vs 05/07 with radiology -Continue atorvastatin 40 mg daily -Vasculitis workup still pending, appreciate rheum recs. -LEX neg -ANCA<1:20, PR3-0, MPO-0 Assessment & Plan (05/03/2025 11:14 AM CDT): -Ordered further encephalopathy workup: HIV-neg, RPR-neg, B12, WNL, TSH WNL -MRI brain 04/28/25: shows subacute infarction of the R frontoparietal lobs in R MCA territory, some concern for acute infarction due to restricted diffusion. Multiple acute to subacute small foci of infarction scattered within the L centrum semiovale and the L shin radiata. Concerning for embolic stroke -Concern for metastatic lesions noted in the brain and osseous metastasis involving calvarium and axial + appendicular skeleton-- PET scan ordered -PET scan: Focal areas of FDG activity in the R frontal region, suspicious for metastasis, bulky uterus with possible fibroid within the R lateral aspect with an intense increased metabolic activity, suspicious for malignancy. No FDG avid lesion in the R mastectomy bed to suggest local recurrence, no lymph nodes FDG active. -CTA shows multifocal irregular up to severe stenosis of the bilateral anterior, middle and posterior cerebral arteries, more pronounced in the R MCA and up to severe irregular stenosis in the V4 segments of the verteral arteries and the entire basilar artery. 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 Plan: -Obtained records from [facility], no relevant materials were provided unfortunately. -Will have GOC discussion with patient and POA this PM. -Neurology consulted, appreciate recs -NSGY consulted due to brain mass, not concerned for brain mass as not seen in MRI, no obvious lesion to biopsy. -TTE ordered for embolic workup -Hold home aspirin 81 mg daily and plavix 75 mg daily for potential LP on 05/02 -Continue atorvastatin 40 mg daily -Vasculitis workup still pending, will consult Rheumatology at this time. Assessment & Plan (05/02/2025 1:40 PM CDT): -Ordered further encephalopathy workup: HIV-neg, RPR-neg, B12, WNL, TSH WNL -MRI brain 04/28/25: shows subacute infarction of the R frontoparietal lobs in R MCA territory, some concern for acute infarction due to restricted diffusion. Multiple acute to subacute small foci of infarction scattered within the L centrum semiovale and the L shin radiata. Concerning for embolic stroke -Concern for metastatic lesions noted in the brain and osseous metastasis involving calvarium and axial + appendicular skeleton-- PET scan ordered -PET scan: Focal areas of FDG activity in the R frontal region, suspicious for metastasis, bulky uterus with possible fibroid within the R lateral aspect with an intense increased metabolic activity, suspicious for malignancy. No FDG avid lesion in the R mastectomy bed to suggest local recurrence, no lymph nodes FDG active. -CTA shows multifocal irregular up to severe stenosis of the bilateral anterior, middle and posterior cerebral arteries, more pronounced in the R MCA and up to severe irregular stenosis in the V4 segments of the verteral arteries and the entire basilar artery. 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 Plan: -Obtained records from [facility], no relevant materials were provided unfortunately. -Will have [facility] discussion with patient and POA this PM. -Neurology consulted, appreciate recs -NSGY consulted due to brain mass, not concerned for brain mass as not seen in MRI, no obvious lesion to biopsy. -TTE ordered for embolic workup -Hold home aspirin 81 mg daily and plavix 75 mg daily for potential LP on 05/02 -Continue atorvastatin 40 mg daily -Vasculitis workup still pending, will consult Rheumatology at this time. Assessment & Plan (05/01/2025 3:32 PM CDT): -Ordered further encephalopathy workup: HIV-neg, RPR-neg, B12, WNL, TSH WNL -MRI brain 04/28/25: shows subacute infarction of the R frontoparietal lobs in R MCA territory, some concern for acute infarction due to restricted diffusion. Multiple acute to subacute small foci of infarction scattered within the L centrum semiovale and the L shin radiata. Concerning for embolic stroke -Concern for metastatic lesions noted in the brain and osseous metastasis involving calvarium and axial + appendicular skeleton-- PET scan ordered -PET scan: Focal areas of FDG activity in the R frontal region, suspicious for metastasis, bulky uterus with possible fibroid within the R lateral aspect with an intense increased metabolic activity, suspicious for malignancy. No FDG avid lesion in the R mastectomy bed to suggest local recurrence, no lymph nodes FDG active. Plan: -Will attempt to obtain records from [facility] to further clarify patient's breast cancer Hx -Will defer palliative consultation as etiology of lytic lesions are unknown at this time. Will discuss with POA this PM -Neurology consulted, appreciate recs -NSGY consulted due to brain mass, not concerned for brain mass as not seen in MRI, no obvious lesion to biopsy. -TTE ordered for embolic workup -Hold home aspirin 81 mg daily and plavix 75 mg daily for potential LP on 05/02 -Continue atorvastatin 40 mg daily Trauma 04/29/2025 Assessment & Plan (05/13/2025 9:27 PM CDT): -Presented as an OSH transfer s/p unwitnessed fall at rehab facility for small SAH. No concern for SAH on repeat imaging here. -Non acute T9 compression fracture s/p recurrent falls -Upright spine plain films ordered-shows no subluxation -Orthopedic spine consulted, appreciate recs -No surgical interventions recommended by trauma and orthopedics Plan: -Pain control -PT/OT evaluation- SNF Assessment & Plan (05/12/2025 3:01 PM CDT): -Presented as an OSH transfer s/p unwitnessed fall at rehab facility for small SAH. No concern for SAH on repeat imaging here. -Non acute T9 compression fracture s/p recurrent falls -Upright spine plain films ordered-shows no subluxation -Orthopedic spine consulted, appreciate recs -No surgical interventions recommended by trauma and orthopedics Plan: -Pain control -PT/OT evaluation- SNF Assessment & Plan (05/11/2025 4:41 PM CDT): -Presented as an OSH transfer s/p unwitnessed fall at rehab facility for small SAH. No concern for SAH on repeat imaging here. -Non acute T9 compression fracture s/p recurrent falls -Upright spine plain films ordered-shows no subluxation -Orthopedic spine consulted, appreciate recs -No surgical interventions recommended by trauma and orthopedics Plan: -Pain control -PT/OT evaluation- SNF Assessment & Plan (05/10/2025 8:50 PM CDT): -Presented as an OSH transfer s/p unwitnessed fall at rehab facility for small SAH. No concern for SAH on repeat imaging here. -Non acute T9 compression fracture s/p recurrent falls -Upright spine plain films ordered-shows no subluxation -Orthopedic spine consulted, appreciate recs -No surgical interventions recommended by trauma and orthopedics Plan: -Pain control -PT/OT evaluation- SNF Assessment & Plan (05/09/2025 7:34 PM CDT): -Presented as an OSH transfer s/p unwitnessed fall at rehab facility for small SAH. No concern for SAH on repeat imaging here. -Non acute T9 compression fracture s/p recurrent falls -Upright spine plain films ordered-shows no subluxation -Orthopedic spine consulted, appreciate recs -No surgical interventions recommended by trauma and orthopedics Plan: -Pain control -PT/OT evaluation- SNF Assessment & Plan (05/08/2025 7:15 PM CDT): -Presented as an OSH transfer s/p unwitnessed fall at rehab facility for small SAH. No concern for SAH on repeat imaging here. -Non acute T9 compression fracture s/p recurrent falls -Upright spine plain films ordered-shows no subluxation -Orthopedic spine consulted, appreciate recs -No surgical interventions recommended by trauma and orthopedics Plan: -Pain control -PT/OT evaluation- SNF Assessment & Plan (05/07/2025 9:11 PM CDT): -Presented as an OSH transfer s/p unwitnessed fall at rehab facility for small SAH. No concern for SAH on repeat imaging here. -Non acute T9 compression fracture s/p recurrent falls -Upright spine plain films ordered-shows no subluxation -Orthopedic spine consulted, appreciate recs -No surgical interventions recommended by trauma and orthopedics Plan: -Pain control -PT/OT evaluation- SNF Assessment & Plan (05/06/2025 3:34 PM CDT): -Presented as an OSH transfer s/p unwitnessed fall at rehab facility for small SAH. No concern for SAH on repeat imaging here. -No surgical interventions recommended by trauma and orthopedics Plan: -Pain control -PT/OT evaluation- SNF Assessment & Plan (05/05/2025 12:11 PM CDT): -Presented as an OSH transfer s/p unwitnessed fall at rehab facility for small SAH. No concern for SAH on repeat imaging here. -No surgical interventions recommended by trauma and orthopedics Plan: -Pain control -PT/OT evaluation- SNF Assessment & Plan (05/04/2025 1:17 PM CDT): -Presented as an OSH transfer s/p unwitnessed fall at rehab facility for small SAH. No concern for SAH on repeat imaging here. -No surgical interventions recommended by trauma and orthopedics Plan: -Pain control -PT/OT evaluation-Recommends multidisciplinary therapy Assessment & Plan (05/03/2025 11:14 AM CDT): -Presented as an OSH transfer s/p unwitnessed fall at rehab facility for small SAH. No concern for SAH on repeat imaging here. -No surgical interventions recommended by trauma and orthopedics Plan: -Pain control -PT/OT evaluation-Recommends multidisciplinary therapy Assessment & Plan (05/02/2025 1:40 PM CDT): -Presented as an OSH transfer s/p unwitnessed fall at rehab facility for small SAH. No concern for SAH on repeat imaging here. -No surgical interventions recommended by trauma and orthopedics Plan: -Pain control -PT/OT evaluation-Recommends multidisciplinary therapy Assessment & Plan (05/01/2025 3:32 PM CDT): -Presented as an OSH transfer s/p unwitnessed fall at rehab facility for small SAH. No concern for SAH on repeat imaging here. -No surgical interventions recommended by trauma and orthopedics Plan: -Pain control -PT/OT evaluation-Recommends multidisciplinary therapy Assessment & Plan (04/30/2025 10:30 AM CDT): -Presented as an OSH transfer s/p unwitnessed fall at rehab facility for small SAH. No concern for SAH on repeat imaging here. -No surgical interventions recommended by trauma and orthopedics Plan: -OK to resume antiplatelet agents per surgical consultants -Pain control -PT/OT evaluation-Recommends multidisciplinary therapy Assessment & Plan (04/29/2025 3:05 PM CDT): -Presented as an OSH transfer s/p unwitnessed fall at rehab facility for small SAH. No concern for SAH on repeat imaging here. -No surgical interventions recommended by trauma and orthopedics Plan: -OK to resume antiplatelet agents per surgical consultants -Pain control -PT/OT evaluation-Recommends multidisciplinary therapy Assessment & Plan (04/29/2025 2:22 PM CDT): -Presented as an OSH transfer s/p unwitnessed fall at rehab facility for small SAH. No concern for SAH on repeat imaging here. -No surgical interventions recommended by trauma and orthopedics Plan: -OK to resume antiplatelet agents per surgical consultants -Pain control -PT/OT evaluation Acute encephalopathy 04/29/2025 Assessment & Plan (05/13/2025 9:27 PM CDT): Encephalopathy Syncope with abnormal neurologic exam / Acute encephalopathy: Likely related to underlying cerebrovascular disease; improving with supportive care. Continue frequent neuro checks and delirium precautions. Acute Ischemic Stroke (Right MCA territory) with additional small embolic infarcts (bilateral hemispheres)-MRI (04/28): Subacute infarct in right frontoparietal lobes (R MCA). Multiple lqrss-sl-[id number] small infarcts in left centrum semiovale and shin radiata (embolic pattern). CTA Head/Neck: Multifocal, severe intracranial arterial stenoses involving bilateral anterior, middle, posterior cerebral arteries and vertebrobasilar system. 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 RADHA: LVEF 55%, mild MR/AR, no MIL thrombus or intracardiac shunt. NSGY consulted--no discrete brain mass; no indication for biopsy. Current Management: s/p RADHA (normal) and loop recorder placement. Continue dual antiplatelet therapy (DAPT) per Neurology recommendation. Continue atorvastatin 40 mg daily.Monitor telemetry for arrhythmia; review loop recorder data when available. Concern for metastatic lesions in the brain and osseous metastases involving calvarium, axial, and appendicular skeleton. PET Scan: -Focal FDG activity in the right frontal region--suspicious for metastasis. -NSGY consulted for possible brain mass--no discrete lesion on MRI; no indication for biopsy. -Bulky uterus with possible fibroid and intense metabolic activity--suspicious for malignancy. -No FDG-avid lesion in the right mastectomy bed; no FDG-avid lymph nodes. CTA Head/Neck: -Skeletal lesions could also be from hyperparathyroidism. She has h/o breast cancer about 20 years ago. -CSF, Cytology (A): - Specimen consists of RBCs, lymphocytes and monocytes. Assessment & Plan (05/12/2025 3:01 PM CDT): Encephalopathy Syncope with abnormal neurologic exam / Acute encephalopathy: Likely related to underlying cerebrovascular disease; improving with supportive care. Continue frequent neuro checks and delirium precautions. Acute Ischemic Stroke (Right MCA territory) with additional small embolic infarcts (bilateral hemispheres)-MRI (04/28): Subacute infarct in right frontoparietal lobes (R MCA). Multiple oluaf-zq-vbpazzlx small infarcts in left centrum semiovale and shin radiata (embolic pattern). CTA Head/Neck: Multifocal, severe intracranial arterial stenoses involving bilateral anterior, middle, posterior cerebral arteries and vertebrobasilar system. 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 RADHA: LVEF 55%, mild MR/AR, no MIL thrombus or intracardiac shunt. NSGY consulted--no discrete brain mass; no indication for biopsy. Current Management: s/p RADHA (normal) and loop recorder placement. Continue dual antiplatelet therapy (DAPT) per Neurology recommendation. Continue atorvastatin 40 mg daily.Monitor telemetry for arrhythmia; review loop recorder data when available. Concern for metastatic lesions in the brain and osseous metastases involving calvarium, axial, and appendicular skeleton. PET Scan: -Focal FDG activity in the right frontal region--suspicious for metastasis. -NSGY consulted for possible brain mass--no discrete lesion on MRI; no indication for biopsy. -Bulky uterus with possible fibroid and intense metabolic activity--suspicious for malignancy. -No FDG-avid lesion in the right mastectomy bed; no FDG-avid lymph nodes. CTA Head/Neck: -Skeletal lesions could also be from hyperparathyroidism. She has h/o breast cancer about 20 years ago. -CSF, Cytology (A): - Specimen consists of RBCs, lymphocytes and monocytes. Assessment & Plan (05/11/2025 4:41 PM CDT): Encephalopathy Syncope with abnormal neurologic exam / Acute encephalopathy: Likely related to underlying cerebrovascular disease; improving with supportive care. Continue frequent neuro checks and delirium precautions. Acute Ischemic Stroke (Right MCA territory) with additional small embolic infarcts (bilateral hemispheres)-MRI (04/28): Subacute infarct in right frontoparietal lobes (R MCA). Multiple mdamd-ic-knlbolei small infarcts in left centrum semiovale and shin radiata (embolic pattern). CTA Head/Neck: Multifocal, severe intracranial arterial stenoses involving bilateral anterior, middle, posterior cerebral arteries and vertebrobasilar system. 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 RADHA: LVEF 55%, mild MR/AR, no MIL thrombus or intracardiac shunt. NSGY consulted--no discrete brain mass; no indication for biopsy. Current Management: s/p RADHA and loop recorder placement. Continue dual antiplatelet therapy (DAPT) per Neurology recommendation. Continue atorvastatin 40 mg daily.Monitor telemetry for arrhythmia; review loop recorder data when available. Concern for metastatic lesions in the brain and osseous metastases involving calvarium, axial, and appendicular skeleton. PET Scan: -Focal FDG activity in the right frontal region--suspicious for metastasis. -NSGY consulted for possible brain mass--no discrete lesion on MRI; no indication for biopsy. -Bulky uterus with possible fibroid and intense metabolic activity--suspicious for malignancy. -No FDG-avid lesion in the right mastectomy bed; no FDG-avid lymph nodes. CTA Head/Neck: -Skeletal lesions could also be from hyperparathyroidism. She has h/o breast cancer about 20 years ago. -CSF, Cytology (A): - Specimen consists of RBCs, lymphocytes and monocytes. Assessment & Plan (05/10/2025 8:50 PM CDT): Encephalopathy Syncope with abnormal neurologic exam / Acute encephalopathy: Likely related to underlying cerebrovascular disease; improving with supportive care. Continue frequent neuro checks and delirium precautions. Acute Ischemic Stroke (Right MCA territory) with additional small embolic infarcts (bilateral hemispheres)-MRI (04/28): Subacute infarct in right frontoparietal lobes (R MCA). Multiple nlrrv-yr-xxqhgmrw small infarcts in left centrum semiovale and shin radiata (embolic pattern). CTA Head/Neck: Multifocal, severe intracranial arterial stenoses involving bilateral anterior, middle, posterior cerebral arteries and vertebrobasilar system. 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 RADHA: LVEF 55%, mild MR/AR, no MIL thrombus or intracardiac shunt. NSGY consulted--no discrete brain mass; no indication for biopsy. Current Management: s/p RADHA and loop recorder placement. Continue dual antiplatelet therapy (DAPT) per Neurology recommendation. Continue atorvastatin 40 mg daily.Monitor telemetry for arrhythmia; review loop recorder data when available. Concern for metastatic lesions in the brain and osseous metastases involving calvarium, axial, and appendicular skeleton. PET Scan: -Focal FDG activity in the right frontal region--suspicious for metastasis. -NSGY consulted for possible brain mass--no discrete lesion on MRI; no indication for biopsy. -Bulky uterus with possible fibroid and intense metabolic activity--suspicious for malignancy. -No FDG-avid lesion in the right mastectomy bed; no FDG-avid lymph nodes. CTA Head/Neck: -Skeletal lesions could also be from hyperparathyroidism. She has h/o breast cancer about 20 years ago. -CSF, Cytology (A): - Specimen consists of RBCs, lymphocytes and monocytes. Assessment & Plan (05/09/2025 7:34 PM CDT): Encephalopathy / Stroke Workup to Date: MRI Brain (04/28/25): -Subacute infarction in the right frontoparietal lobes (R MCA territory) with some restricted diffusion concerning for acute infarction. -Multiple yqanv-dc-spizxnjh small infarcts scattered in the left centrum semiovale and shin radiata, concerning for embolic stroke. -CT Head and Neck with multifocal irregular up to severe stenosis of the bilateral anterior, middle and posterior cerebral arteries, more pronounced in the right MCA, and up to severe irregular stenosis of the V4 segments of the vertebral arteries and the entire basilar artery. There was concern for CHILD ADOLESCENT PSYCHIATRIST vasculitis, however LP CSF studies are not c/w vasculitis. Rheumatology evaluated and signed off NSGY consulted for possible brain mass--no discrete lesion on MRI; no indication for biopsy. Additional Studies / Interventions: TTE: EF 55%, no intracardiac shunt. LEX negative; ANCA <1:20, PR3 = 0, MPO = 0; SPEP negative Neurology/Stroke Team recommended: - RADHA and Loop recorder; contacted cardiology and scheduled RADHA for tomorrow - Continue DAPT in the meantime -Continue atorvastatin 40 mg daily. Concern for metastatic lesions in the brain and osseous metastases involving calvarium, axial, and appendicular skeleton. PET Scan: -Focal FDG activity in the right frontal region--suspicious for metastasis. -NSGY consulted for possible brain mass--no discrete lesion on MRI; no indication for biopsy. -Bulky uterus with possible fibroid and intense metabolic activity--suspicious for malignancy. -No FDG-avid lesion in the right mastectomy bed; no FDG-avid lymph nodes. CTA Head/Neck: -Skeletal lesions could also be from hyperparathyroidism. She has h/o breast cancer about 20 years ago. -CSF cytology pending Assessment & Plan (05/08/2025 8:39 PM CDT): Encephalopathy / Stroke Workup to Date: MRI Brain (04/28/25): -Subacute infarction in the right frontoparietal lobes (R MCA territory) with some restricted diffusion concerning for acute infarction. -Multiple rtkgp-ef-tauvvuov small infarcts scattered in the left centrum semiovale and shin radiata, concerning for embolic stroke. -CT Head and Neck with multifocal irregular up to severe stenosis of the bilateral anterior, middle and posterior cerebral arteries, more pronounced in the right MCA, and up to severe irregular stenosis of the V4 segments of the vertebral arteries and the entire basilar artery. There was concern for CHILD ADOLESCENT PSYCHIATRIST vasculitis, however LP CSF studies. Rheumatology evaluated and signed off NSGY consulted for possible brain mass--no discrete lesion on MRI; no indication for biopsy. Additional Studies / Interventions: TTE: EF 55%, no intracardiac shunt. LEX negative; ANCA <1:20, PR3 = 0, MPO = 0. Neurology/Stroke Team today recommended: - RADHA and Loop recorder - Continue DAPT in the meantime -Continue atorvastatin 40 mg daily. Concern for metastatic lesions in the brain and osseous metastases involving calvarium, axial, and appendicular skeleton. PET Scan: -Focal FDG activity in the right frontal region--suspicious for metastasis. -Bulky uterus with possible fibroid and intense metabolic activity--suspicious for malignancy. -No FDG-avid lesion in the right mastectomy bed; no FDG-avid lymph nodes. CTA Head/Neck: -Skeletal lesions could also be from hyperparathyroidism. She has h/o breast cancer about 20 years ago. Assessment & Plan (05/07/2025 9:11 PM CDT): Encephalopathy / Stroke Workup to Date: Infectious/Metabolic: HIV negative, RPR negative, B12 and TSH within normal limits. MRI Brain (04/28/25): -Subacute infarction in the right frontoparietal lobes (R MCA territory) with some restricted diffusion concerning for acute infarction. -Multiple vetdl-tb-rrhbmzed small infarcts scattered in the left centrum semiovale and shin radiata, concerning for embolic stroke. -Concern for metastatic lesions in the brain and osseous metastases involving calvarium, axial, and appendicular skeleton. PET Scan: -Focal FDG activity in the right frontal region--suspicious for metastasis. -Bulky uterus with possible fibroid and intense metabolic activity--suspicious for malignancy. -No FDG-avid lesion in the right mastectomy bed; no FDG-avid lymph nodes. CTA Head/Neck: -Multifocal, irregular stenosis (up to severe) of bilateral anterior, middle, and posterior cerebral arteries--most pronounced in the right MCA. 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 Additional Studies / Interventions: TTE: EF 55%, no intracardiac shunt. LEX negative; ANCA <1:20, PR3 = 0, MPO = 0. LP performed by Neuroradiology on 05/07; CSF studies pending. NSGY consulted for possible brain mass--no discrete lesion on MRI; no indication for biopsy. Records requested from [facility]; no relevant data received. Plan: Resume aspirin 81 mg daily and clopidogrel 75 mg daily after 6 hours post-LP (05/07). Continue atorvastatin 40 mg daily. Vasculitis workup in progress; appreciate Rheumatology recommendations. Goals of Care documented in ACP note. Neurology to determine need for DSA or further evaluation following LP results. Assessment & Plan (05/06/2025 3:34 PM CDT): -Ordered further encephalopathy workup: HIV-neg, RPR-neg, B12, WNL, TSH WNL -MRI brain 04/28/25: shows subacute infarction of the R frontoparietal lobs in R MCA territory, some concern for acute infarction due to restricted diffusion. Multiple acute to subacute small foci of infarction scattered within the L centrum semiovale and the L shin radiata. Concerning for embolic stroke -Concern for metastatic lesions noted in the brain and osseous metastasis involving calvarium and axial + appendicular skeleton-- PET scan ordered -PET scan: Focal areas of FDG activity in the R frontal region, suspicious for metastasis, bulky uterus with possible fibroid within the R lateral aspect with an intense increased metabolic activity, suspicious for malignancy. No FDG avid lesion in the R mastectomy bed to suggest local recurrence, no lymph nodes FDG active. -CTA shows multifocal irregular up to severe stenosis of the bilateral anterior, middle and posterior cerebral arteries, more pronounced in the R MCA and up to severe irregular stenosis in the V4 segments of the verteral arteries and the entire basilar artery. 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 Plan: -Obtained records from [facility], no relevant materials were provided unfortunately. -GOC as seen on ACP note -Neurology consulted, appreciate recs -- unsuccessful attempt bedside LP 05/02 - stroke service will follow up once LP performed by radiology to determine need for DSA or additional workup -NSGY consulted due to brain mass, not concerned for brain mass as not seen in MRI, no obvious lesion to biopsy. -TTE ordered for embolic workup-No shunt, EF of 55% -Hold home aspirin 81 mg daily and plavix 75 mg daily for potential LP on 05/07 with radiology -Continue atorvastatin 40 mg daily -Vasculitis workup still pending, appreciate rheum recs. -LEX neg -ANCA<1:20, PR3-0, MPO-0 Assessment & Plan (05/05/2025 12:11 PM CDT): -Ordered further encephalopathy workup: HIV-neg, RPR-neg, B12, WNL, TSH WNL -MRI brain 04/28/25: shows subacute infarction of the R frontoparietal lobs in R MCA territory, some concern for acute infarction due to restricted diffusion. Multiple acute to subacute small foci of infarction scattered within the L centrum semiovale and the L shin radiata. Concerning for embolic stroke -Concern for metastatic lesions noted in the brain and osseous metastasis involving calvarium and axial + appendicular skeleton-- PET scan ordered -PET scan: Focal areas of FDG activity in the R frontal region, suspicious for metastasis, bulky uterus with possible fibroid within the R lateral aspect with an intense increased metabolic activity, suspicious for malignancy. No FDG avid lesion in the R mastectomy bed to suggest local recurrence, no lymph nodes FDG active. -CTA shows multifocal irregular up to severe stenosis of the bilateral anterior, middle and posterior cerebral arteries, more pronounced in the R MCA and up to severe irregular stenosis in the V4 segments of the verteral arteries and the entire basilar artery. 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 Plan: -Obtained records from [facility], no relevant materials were provided unfortunately. -GOC as seen on ACP note -Neurology consulted, appreciate recs -- unsuccessful attempt bedside LP 05/02 - stroke service will follow up once LP performed by radiology to determine need for DSA or additional workup -NSGY consulted due to brain mass, not concerned for brain mass as not seen in MRI, no obvious lesion to biopsy. -TTE ordered for embolic workup-No shunt, EF of 55% -Hold home aspirin 81 mg daily and plavix 75 mg daily for potential LP on 05/06 vs 05/07 with radiology -Continue atorvastatin 40 mg daily -Vasculitis workup still pending, appreciate rheum recs. -LEX neg -ANCA<1:20, PR3-0, MPO-0 Assessment & Plan (05/04/2025 1:17 PM CDT): -Ordered further encephalopathy workup: HIV-neg, RPR-neg, B12, WNL, TSH WNL -MRI brain 04/28/25: shows subacute infarction of the R frontoparietal lobs in R MCA territory, some concern for acute infarction due to restricted diffusion. Multiple acute to subacute small foci of infarction scattered within the L centrum semiovale and the L shin radiata. Concerning for embolic stroke -Concern for metastatic lesions noted in the brain and osseous metastasis involving calvarium and axial + appendicular skeleton-- PET scan ordered -PET scan: Focal areas of FDG activity in the R frontal region, suspicious for metastasis, bulky uterus with possible fibroid within the R lateral aspect with an intense increased metabolic activity, suspicious for malignancy. No FDG avid lesion in the R mastectomy bed to suggest local recurrence, no lymph nodes FDG active. -CTA shows multifocal irregular up to severe stenosis of the bilateral anterior, middle and posterior cerebral arteries, more pronounced in the R MCA and up to severe irregular stenosis in the V4 segments of the verteral arteries and the entire basilar artery. 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 Plan: -Obtained records from [facility], no relevant materials were provided unfortunately. -GOC as seen on ACP note -Neurology consulted, appreciate recs -NSGY consulted due to brain mass, not concerned for brain mass as not seen in MRI, no obvious lesion to biopsy. -TTE ordered for embolic workup-No shunt, EF of 55% -Hold home aspirin 81 mg daily and plavix 75 mg daily for potential LP on 05/06 vs 05/07 with radiology -Continue atorvastatin 40 mg daily -Vasculitis workup still pending, appreciate rheum recs. -LEX neg -ANCA<1:20, PR3-0, MPO-0 Assessment & Plan (05/03/2025 11:14 AM CDT): -Ordered further encephalopathy workup: HIV-neg, RPR-neg, B12, WNL, TSH WNL -MRI brain 04/28/25: shows subacute infarction of the R frontoparietal lobs in R MCA territory, some concern for acute infarction due to restricted diffusion. Multiple acute to subacute small foci of infarction scattered within the L centrum semiovale and the L shin radiata. Concerning for embolic stroke -Concern for metastatic lesions noted in the brain and osseous metastasis involving calvarium and axial + appendicular skeleton-- PET scan ordered -PET scan: Focal areas of FDG activity in the R frontal region, suspicious for metastasis, bulky uterus with possible fibroid within the R lateral aspect with an intense increased metabolic activity, suspicious for malignancy. No FDG avid lesion in the R mastectomy bed to suggest local recurrence, no lymph nodes FDG active. -CTA shows multifocal irregular up to severe stenosis of the bilateral anterior, middle and posterior cerebral arteries, more pronounced in the R MCA and up to severe irregular stenosis in the V4 segments of the verteral arteries and the entire basilar artery. 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 Plan: -Obtained records from [facility], no relevant materials were provided unfortunately. -Will have GOC discussion with patient and POA this PM. -Neurology consulted, appreciate recs -NSGY consulted due to brain mass, not concerned for brain mass as not seen in MRI, no obvious lesion to biopsy. -TTE ordered for embolic workup -Hold home aspirin 81 mg daily and plavix 75 mg daily for potential LP on 05/02 -Continue atorvastatin 40 mg daily -Vasculitis workup still pending, will consult Rheumatology at this time. Assessment & Plan (05/02/2025 1:40 PM CDT): -Ordered further encephalopathy workup: HIV-neg, RPR-neg, B12, WNL, TSH WNL -MRI brain 04/28/25: shows subacute infarction of the R frontoparietal lobs in R MCA territory, some concern for acute infarction due to restricted diffusion. Multiple acute to subacute small foci of infarction scattered within the L centrum semiovale and the L shin radiata. Concerning for embolic stroke -Concern for metastatic lesions noted in the brain and osseous metastasis involving calvarium and axial + appendicular skeleton-- PET scan ordered -PET scan: Focal areas of FDG activity in the R frontal region, suspicious for metastasis, bulky uterus with possible fibroid within the R lateral aspect with an intense increased metabolic activity, suspicious for malignancy. No FDG avid lesion in the R mastectomy bed to suggest local recurrence, no lymph nodes FDG active. -CTA shows multifocal irregular up to severe stenosis of the bilateral anterior, middle and posterior cerebral arteries, more pronounced in the R MCA and up to severe irregular stenosis in the V4 segments of the verteral arteries and the entire basilar artery. 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 Plan: -Obtained records from [facility], no relevant materials were provided unfortunately. -Will have [facility] discussion with patient and POA this PM. -Neurology consulted, appreciate recs -NSGY consulted due to brain mass, not concerned for brain mass as not seen in MRI, no obvious lesion to biopsy. -TTE ordered for embolic workup -Hold home aspirin 81 mg daily and plavix 75 mg daily for potential LP on 05/02 -Continue atorvastatin 40 mg daily -Vasculitis workup still pending, will consult Rheumatology at this time. Assessment & Plan (05/01/2025 3:32 PM CDT): -Ordered further encephalopathy workup: HIV-neg, RPR-neg, B12, WNL, TSH WNL -MRI brain 04/28/25: shows subacute infarction of the R frontoparietal lobs in R MCA territory, some concern for acute infarction due to restricted diffusion. Multiple acute to subacute small foci of infarction scattered within the L centrum semiovale and the L shin radiata. Concerning for embolic stroke -Concern for metastatic lesions noted in the brain and osseous metastasis involving calvarium and axial + appendicular skeleton-- PET scan ordered -PET scan: Focal areas of FDG activity in the R frontal region, suspicious for metastasis, bulky uterus with possible fibroid within the R lateral aspect with an intense increased metabolic activity, suspicious for malignancy. No FDG avid lesion in the R mastectomy bed to suggest local recurrence, no lymph nodes FDG active. Plan: -Will attempt to obtain records from [facility] to further clarify patient's breast cancer Hx -Will defer palliative consultation as etiology of lytic lesions are unknown at this time. Will discuss with POA this PM -Neurology consulted, appreciate recs -NSGY consulted due to brain mass, not concerned for brain mass as not seen in MRI, no obvious lesion to biopsy. -TTE ordered for embolic workup -Hold home aspirin 81 mg daily and plavix 75 mg daily for potential LP on 05/02 -Continue atorvastatin 40 mg daily Assessment & Plan (04/30/2025 11:43 AM CDT): -Ordered further encephalopathy workup: HIV-neg, RPR-neg, B12, WNL, TSH WNL -MRI brain 04/28/25: shows subacute infarction of the R frontoparietal lobs in R MCA territory, some concern for acute infarction due to restricted diffusion. Multiple acute to subacute small foci of infarction scattered within the L centrum semiovale and the L shin radiata. Concerning for embolic stroke -Concern for metastatic lesions noted in the brain and osseous metastasis involving calvarium and axial + appendicular skeleton-- PET scan ordered -PTH level 1633.6 and TSH level 1.328 -CT CAP 04/28/25: 1.7 cm discrete nodule posterior to the R lobe of the thyroid, could potentially represent thyroid vs parathyroid adenoma Plan: -US of neck ordered -PET scan ordered -Will attempt to obtain records from [facility] to further clarify patient's breast cancer Hx -Will defer palliative consultation as etiology of lytic lesions are unknown at this time -Obtain SPEP, patient anuric so will unable to get UPEP -Neurology consulted, appreciate recs -TTE ordered -Restart home aspirin 81 mg daily and plavix 75 mg daily -Continue atorvastatin 40 mg daily -Continue home cinacalcet -Start on vitamin D 69531 units q7 days for 6 weeks. Assessment & Plan (04/29/2025 3:06 PM CDT): -Ordered further encephalopathy workup: HIV-neg, RPR-neg, B12, WNL, TSH WNL -MRI brain 04/28/25: shows subacute infarction of the R frontoparietal lobs in R MCA territory, some concern for acute infarction due to restricted diffusion. Multiple acute to subacute small foci of infarction scattered within the L centrum semiovale and the L shin radiata. Concerning for embolic stroke -Concern for metastatic lesions noted in the brain and osseous metastasis involving calvarium and axial + appendicular skeleton-- PET scan ordered -PTH level 1633.6 and TSH level 1.328 -CT CAP 04/28/25: 1.7 cm discrete nodule posterior to the R lobe of the thyroid, could potentially represent thyroid vs parathyroid adenoma Plan: -US of neck ordered -PET scan ordered Will attempt to obtain records from [facility] to further clarify patient's breast cancer Hx -Will defer palliative consultation as etiology of lytic lesions are unknown at this time -Obtain SPEP/UPEP -Neurology consulted, appreciate recs -TTE ordered -Restart home aspirin 81 mg daily and plavix 75 mg daily -Continue atorvastatin 40 mg daily Assessment & Plan (04/29/2025 2:23 PM CDT): -Ordered further encephalopathy workup: HIV, RPR >F/u B12 >TSH WNL -Restart home aspirin 81 mg daily and plavix 75 mg daily (may be able to transition to aspirin monotherapy for secondary stroke prevention as prior stroke was ~1 month ago) -Continue atorvastatin 40 mg daily -Concern for metastatic lesions noted in the brain and osseous metastasis involving calvarium and axial + appendicular skeleton-- ordered MRI brain wwo contrast tumor protocol and consider PET/CT scan for further evaluation >Will attempt to obtain records from [facility] to further clarify patient's breast cancer Hx >Consider inpatient oncology consultation -Consult palliative care tomorrow for further GOC discussion (see ACP note) History of ischemic right MCA stroke 04/29/2025 Assessment & Plan (05/07/2025 9:11 PM CDT): Encephalopathy / Stroke Workup to Date: Infectious/Metabolic: HIV negative, RPR negative, B12 and TSH within normal limits. MRI Brain (04/28/25): -Subacute infarction in the right frontoparietal lobes (R MCA territory) with some restricted diffusion concerning for acute infarction. -Multiple [id number] small infarcts scattered in the left centrum semiovale and shin radiata, concerning for embolic stroke. -Concern for metastatic lesions in the brain and osseous metastases involving calvarium, axial, and appendicular skeleton. PET Scan: -Focal FDG activity in the right frontal region--suspicious for metastasis. -Bulky uterus with possible fibroid and intense metabolic activity--suspicious for malignancy. -No FDG-avid lesion in the right mastectomy bed; no FDG-avid lymph nodes. CTA Head/Neck: -Multifocal, irregular stenosis (up to severe) of bilateral anterior, middle, and posterior cerebral arteries--most pronounced in the right MCA. 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 Additional Studies / Interventions: TTE: EF 55%, no intracardiac shunt. LEX negative; ANCA <1:20, PR3 = 0, MPO = 0. LP performed by Neuroradiology on 05/07; CSF studies pending. NSGY consulted for possible brain mass--no discrete lesion on MRI; no indication for biopsy. Records requested from [facility]; no relevant data received. Plan: Resume aspirin 81 mg daily and clopidogrel 75 mg daily after 6 hours post-LP (05/07). Continue atorvastatin 40 mg daily. Vasculitis workup in progress; appreciate Rheumatology recommendations. Goals of Care documented in ACP note. Neurology to determine need for DSA or further evaluation following LP results. Assessment & Plan (05/06/2025 3:34 PM CDT): -Ordered further encephalopathy workup: HIV-neg, RPR-neg, B12, WNL, TSH WNL -MRI brain 04/28/25: shows subacute infarction of the R frontoparietal lobs in R MCA territory, some concern for acute infarction due to restricted diffusion. Multiple acute to subacute small foci of infarction scattered within the L centrum semiovale and the L shin radiata. Concerning for embolic stroke -Concern for metastatic lesions noted in the brain and osseous metastasis involving calvarium and axial + appendicular skeleton-- PET scan ordered -PET scan: Focal areas of FDG activity in the R frontal region, suspicious for metastasis, bulky uterus with possible fibroid within the R lateral aspect with an intense increased metabolic activity, suspicious for malignancy. No FDG avid lesion in the R mastectomy bed to suggest local recurrence, no lymph nodes FDG active. -CTA shows multifocal irregular up to severe stenosis of the bilateral anterior, middle and posterior cerebral arteries, more pronounced in the R MCA and up to severe irregular stenosis in the V4 segments of the verteral arteries and the entire basilar artery. 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 Plan: -Obtained records from [facility], no relevant materials were provided unfortunately. -GOC as seen on ACP note -Neurology consulted, appreciate recs -- unsuccessful attempt bedside LP 05/02 - stroke service will follow up once LP performed by radiology to determine need for DSA or additional workup -NSGY consulted due to brain mass, not concerned for brain mass as not seen in MRI, no obvious lesion to biopsy. -TTE ordered for embolic workup-No shunt, EF of 55% -Hold home aspirin 81 mg daily and plavix 75 mg daily for potential LP on 05/07 with radiology -Continue atorvastatin 40 mg daily -Vasculitis workup still pending, appreciate rheum recs. -LEX neg -ANCA<1:20, PR3-0, MPO-0 Assessment & Plan (05/05/2025 12:11 PM CDT): -Ordered further encephalopathy workup: HIV-neg, RPR-neg, B12, WNL, TSH WNL -MRI brain 04/28/25: shows subacute infarction of the R frontoparietal lobs in R MCA territory, some concern for acute infarction due to restricted diffusion. Multiple acute to subacute small foci of infarction scattered within the L centrum semiovale and the L shin radiata. Concerning for embolic stroke -Concern for metastatic lesions noted in the brain and osseous metastasis involving calvarium and axial + appendicular skeleton-- PET scan ordered -PET scan: Focal areas of FDG activity in the R frontal region, suspicious for metastasis, bulky uterus with possible fibroid within the R lateral aspect with an intense increased metabolic activity, suspicious for malignancy. No FDG avid lesion in the R mastectomy bed to suggest local recurrence, no lymph nodes FDG active. -CTA shows multifocal irregular up to severe stenosis of the bilateral anterior, middle and posterior cerebral arteries, more pronounced in the R MCA and up to severe irregular stenosis in the V4 segments of the verteral arteries and the entire basilar artery. 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 Plan: -Obtained records from [facility], no relevant materials were provided unfortunately. -GOC as seen on ACP note -Neurology consulted, appreciate recs -- unsuccessful attempt bedside LP 05/02 - stroke service will follow up once LP performed by radiology to determine need for DSA or additional workup -NSGY consulted due to brain mass, not concerned for brain mass as not seen in MRI, no obvious lesion to biopsy. -TTE ordered for embolic workup-No shunt, EF of 55% -Hold home aspirin 81 mg daily and plavix 75 mg daily for potential LP on 05/06 vs 05/07 with radiology -Continue atorvastatin 40 mg daily -Vasculitis workup still pending, appreciate rheum recs. -LEX neg -ANCA<1:20, PR3-0, MPO-0 Assessment & Plan (05/04/2025 1:17 PM CDT): -Ordered further encephalopathy workup: HIV-neg, RPR-neg, B12, WNL, TSH WNL -MRI brain 04/28/25: shows subacute infarction of the R frontoparietal lobs in R MCA territory, some concern for acute infarction due to restricted diffusion. Multiple acute to subacute small foci of infarction scattered within the L centrum semiovale and the L shin radiata. Concerning for embolic stroke -Concern for metastatic lesions noted in the brain and osseous metastasis involving calvarium and axial + appendicular skeleton-- PET scan ordered -PET scan: Focal areas of FDG activity in the R frontal region, suspicious for metastasis, bulky uterus with possible fibroid within the R lateral aspect with an intense increased metabolic activity, suspicious for malignancy. No FDG avid lesion in the R mastectomy bed to suggest local recurrence, no lymph nodes FDG active. -CTA shows multifocal irregular up to severe stenosis of the bilateral anterior, middle and posterior cerebral arteries, more pronounced in the R MCA and up to severe irregular stenosis in the V4 segments of the verteral arteries and the entire basilar artery. 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 Plan: -Obtained records from [facility], no relevant materials were provided unfortunately. -GOC as seen on ACP note -Neurology consulted, appreciate recs -NSGY consulted due to brain mass, not concerned for brain mass as not seen in MRI, no obvious lesion to biopsy. -TTE ordered for embolic workup-No shunt, EF of 55% -Hold home aspirin 81 mg daily and plavix 75 mg daily for potential LP on 05/06 vs 05/07 with radiology -Continue atorvastatin 40 mg daily -Vasculitis workup still pending, appreciate rheum recs. -LEX neg -ANCA<1:20, PR3-0, MPO-0 Assessment & Plan (05/03/2025 11:14 AM CDT): -Ordered further encephalopathy workup: HIV-neg, RPR-neg, B12, WNL, TSH WNL -MRI brain 04/28/25: shows subacute infarction of the R frontoparietal lobs in R MCA territory, some concern for acute infarction due to restricted diffusion. Multiple acute to subacute small foci of infarction scattered within the L centrum semiovale and the L shin radiata. Concerning for embolic stroke -Concern for metastatic lesions noted in the brain and osseous metastasis involving calvarium and axial + appendicular skeleton-- PET scan ordered -PET scan: Focal areas of FDG activity in the R frontal region, suspicious for metastasis, bulky uterus with possible fibroid within the R lateral aspect with an intense increased metabolic activity, suspicious for malignancy. No FDG avid lesion in the R mastectomy bed to suggest local recurrence, no lymph nodes FDG active. -CTA shows multifocal irregular up to severe stenosis of the bilateral anterior, middle and posterior cerebral arteries, more pronounced in the R MCA and up to severe irregular stenosis in the V4 segments of the verteral arteries and the entire basilar artery. 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 Plan: -Obtained records from [facility], no relevant materials were provided unfortunately. -Will have GOC discussion with patient and POA this PM. -Neurology consulted, appreciate recs -NSGY consulted due to brain mass, not concerned for brain mass as not seen in MRI, no obvious lesion to biopsy. -TTE ordered for embolic workup -Hold home aspirin 81 mg daily and plavix 75 mg daily for potential LP on 05/02 -Continue atorvastatin 40 mg daily -Vasculitis workup still pending, will consult Rheumatology at this time. Assessment & Plan (05/02/2025 1:40 PM CDT): -Ordered further encephalopathy workup: HIV-neg, RPR-neg, B12, WNL, TSH WNL -MRI brain 04/28/25: shows subacute infarction of the R frontoparietal lobs in R MCA territory, some concern for acute infarction due to restricted diffusion. Multiple acute to subacute small foci of infarction scattered within the L centrum semiovale and the L shin radiata. Concerning for embolic stroke -Concern for metastatic lesions noted in the brain and osseous metastasis involving calvarium and axial + appendicular skeleton-- PET scan ordered -PET scan: Focal areas of FDG activity in the R frontal region, suspicious for metastasis, bulky uterus with possible fibroid within the R lateral aspect with an intense increased metabolic activity, suspicious for malignancy. No FDG avid lesion in the R mastectomy bed to suggest local recurrence, no lymph nodes FDG active. -CTA shows multifocal irregular up to severe stenosis of the bilateral anterior, middle and posterior cerebral arteries, more pronounced in the R MCA and up to severe irregular stenosis in the V4 segments of the verteral arteries and the entire basilar artery. 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 Plan: -Obtained records from [facility], no relevant materials were provided unfortunately. -Will have GOC discussion with patient and POA this PM. -Neurology consulted, appreciate recs -NSGY consulted due to brain mass, not concerned for brain mass as not seen in MRI, no obvious lesion to biopsy. -TTE ordered for embolic workup -Hold home aspirin 81 mg daily and plavix 75 mg daily for potential LP on 05/02 -Continue atorvastatin 40 mg daily -Vasculitis workup still pending, will consult Rheumatology at this time. Assessment & Plan (05/01/2025 3:32 PM CDT): -Ordered further encephalopathy workup: HIV-neg, RPR-neg, B12, WNL, TSH WNL -MRI brain 04/28/25: shows subacute infarction of the R frontoparietal lobs in R MCA territory, some concern for acute infarction due to restricted diffusion. Multiple acute to subacute small foci of infarction scattered within the L centrum semiovale and the L shin radiata. Concerning for embolic stroke -Concern for metastatic lesions noted in the brain and osseous metastasis involving calvarium and axial + appendicular skeleton-- PET scan ordered -PET scan: Focal areas of FDG activity in the R frontal region, suspicious for metastasis, bulky uterus with possible fibroid within the R lateral aspect with an intense increased metabolic activity, suspicious for malignancy. No FDG avid lesion in the R mastectomy bed to suggest local recurrence, no lymph nodes FDG active. Plan: -Will attempt to obtain records from [facility] to further clarify patient's breast cancer Hx -Will defer palliative consultation as etiology of lytic lesions are unknown at this time. Will discuss with POA this PM -Neurology consulted, appreciate recs -NSGY consulted due to brain mass, not concerned for brain mass as not seen in MRI, no obvious lesion to biopsy. -TTE ordered for embolic workup -Hold home aspirin 81 mg daily and plavix 75 mg daily for potential LP on 05/02 -Continue atorvastatin 40 mg daily Assessment & Plan (04/30/2025 11:43 AM CDT): -Ordered further encephalopathy workup: HIV-neg, RPR-neg, B12, WNL, TSH WNL -MRI brain 04/28/25: shows subacute infarction of the R frontoparietal lobs in R MCA territory, some concern for acute infarction due to restricted diffusion. Multiple acute to subacute small foci of infarction scattered within the L centrum semiovale and the L shin radiata. Concerning for embolic stroke -Concern for metastatic lesions noted in the brain and osseous metastasis involving calvarium and axial + appendicular skeleton-- PET scan ordered -PTH level 1633.6 and TSH level 1.328 -CT CAP 04/28/25: 1.7 cm discrete nodule posterior to the R lobe of the thyroid, could potentially represent thyroid vs parathyroid adenoma Plan: -US of neck ordered -PET scan ordered -Will attempt to obtain records from [facility] to further clarify patient's breast cancer Hx -Will defer palliative consultation as etiology of lytic lesions are unknown at this time -Obtain SPEP, patient anuric so will unable to get UPEP -Neurology consulted, appreciate recs -TTE ordered -Restart home aspirin 81 mg daily and plavix 75 mg daily -Continue atorvastatin 40 mg daily -Continue home cinacalcet -Start on vitamin D 28015 units q7 days for 6 weeks. Assessment & Plan (04/29/2025 3:06 PM CDT): -Ordered further encephalopathy workup: HIV-neg, RPR-neg, B12, WNL, TSH WNL -MRI brain 04/28/25: shows subacute infarction of the R frontoparietal lobs in R MCA territory, some concern for acute infarction due to restricted diffusion. Multiple acute to subacute small foci of infarction scattered within the L centrum semiovale and the L shin radiata. Concerning for embolic stroke -Concern for metastatic lesions noted in the brain and osseous metastasis involving calvarium and axial + appendicular skeleton-- PET scan ordered -PTH level 1633.6 and TSH level 1.328 -CT CAP 04/28/25: 1.7 cm discrete nodule posterior to the R lobe of the thyroid, could potentially represent thyroid vs parathyroid adenoma Plan: -US of neck ordered -PET scan ordered Will attempt to obtain records from [facility] to further clarify patient's breast cancer Hx -Will defer palliative consultation as etiology of lytic lesions are unknown at this time -Obtain SPEP/UPEP -Neurology consulted, appreciate recs -TTE ordered -Restart home aspirin 81 mg daily and plavix 75 mg daily -Continue atorvastatin 40 mg daily Malignant neoplasm of right breast 04/29/2025 Assessment & Plan (05/07/2025 9:11 PM CDT): Encephalopathy / Stroke Workup to Date: Infectious/Metabolic: HIV negative, RPR negative, B12 and TSH within normal limits. MRI Brain (04/28/25): -Subacute infarction in the right frontoparietal lobes (R MCA territory) with some restricted diffusion concerning for acute infarction. -Multiple [id number] small infarcts scattered in the left centrum semiovale and shin radiata, concerning for embolic stroke. -Concern for metastatic lesions in the brain and osseous metastases involving calvarium, axial, and appendicular skeleton. PET Scan: -Focal FDG activity in the right frontal region--suspicious for metastasis. -Bulky uterus with possible fibroid and intense metabolic activity--suspicious for malignancy. -No FDG-avid lesion in the right mastectomy bed; no FDG-avid lymph nodes. CTA Head/Neck: -Multifocal, irregular stenosis (up to severe) of bilateral anterior, middle, and posterior cerebral arteries--most pronounced in the right MCA. 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 Additional Studies / Interventions: TTE: EF 55%, no intracardiac shunt. LEX negative; ANCA <1:20, PR3 = 0, MPO = 0. LP performed by Neuroradiology on 05/07; CSF studies pending. NSGY consulted for possible brain mass--no discrete lesion on MRI; no indication for biopsy. Records requested from [facility]; no relevant data received. Plan: Resume aspirin 81 mg daily and clopidogrel 75 mg daily after 6 hours post-LP (05/07). Continue atorvastatin 40 mg daily. Vasculitis workup in progress; appreciate Rheumatology recommendations. Goals of Care documented in ACP note. Neurology to determine need for DSA or further evaluation following LP results. Assessment & Plan (05/06/2025 3:34 PM CDT): -Ordered further encephalopathy workup: HIV-neg, RPR-neg, B12, WNL, TSH WNL -MRI brain 04/28/25: shows subacute infarction of the R frontoparietal lobs in R MCA territory, some concern for acute infarction due to restricted diffusion. Multiple acute to subacute small foci of infarction scattered within the L centrum semiovale and the L shin radiata. Concerning for embolic stroke -Concern for metastatic lesions noted in the brain and osseous metastasis involving calvarium and axial + appendicular skeleton-- PET scan ordered -PET scan: Focal areas of FDG activity in the R frontal region, suspicious for metastasis, bulky uterus with possible fibroid within the R lateral aspect with an intense increased metabolic activity, suspicious for malignancy. No FDG avid lesion in the R mastectomy bed to suggest local recurrence, no lymph nodes FDG active. -CTA shows multifocal irregular up to severe stenosis of the bilateral anterior, middle and posterior cerebral arteries, more pronounced in the R MCA and up to severe irregular stenosis in the V4 segments of the verteral arteries and the entire basilar artery. 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 Plan: -Obtained records from [facility], no relevant materials were provided unfortunately. -GOC as seen on ACP note -Neurology consulted, appreciate recs -- unsuccessful attempt bedside LP 05/02 - stroke service will follow up once LP performed by radiology to determine need for DSA or additional workup -NSGY consulted due to brain mass, not concerned for brain mass as not seen in MRI, no obvious lesion to biopsy. -TTE ordered for embolic workup-No shunt, EF of 55% -Hold home aspirin 81 mg daily and plavix 75 mg daily for potential LP on 05/07 with radiology -Continue atorvastatin 40 mg daily -Vasculitis workup still pending, appreciate rheum recs. -LEX neg -ANCA<1:20, PR3-0, MPO-0 Assessment & Plan (05/05/2025 12:11 PM CDT): -Ordered further encephalopathy workup: HIV-neg, RPR-neg, B12, WNL, TSH WNL -MRI brain 04/28/25: shows subacute infarction of the R frontoparietal lobs in R MCA territory, some concern for acute infarction due to restricted diffusion. Multiple acute to subacute small foci of infarction scattered within the L centrum semiovale and the L shin radiata. Concerning for embolic stroke -Concern for metastatic lesions noted in the brain and osseous metastasis involving calvarium and axial + appendicular skeleton-- PET scan ordered -PET scan: Focal areas of FDG activity in the R frontal region, suspicious for metastasis, bulky uterus with possible fibroid within the R lateral aspect with an intense increased metabolic activity, suspicious for malignancy. No FDG avid lesion in the R mastectomy bed to suggest local recurrence, no lymph nodes FDG active. -CTA shows multifocal irregular up to severe stenosis of the bilateral anterior, middle and posterior cerebral arteries, more pronounced in the R MCA and up to severe irregular stenosis in the V4 segments of the verteral arteries and the entire basilar artery. 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 Plan: -Obtained records from [facility], no relevant materials were provided unfortunately. -GOC as seen on ACP note -Neurology consulted, appreciate recs -- unsuccessful attempt bedside LP 05/02 - stroke service will follow up once LP performed by radiology to determine need for DSA or additional workup -NSGY consulted due to brain mass, not concerned for brain mass as not seen in MRI, no obvious lesion to biopsy. -TTE ordered for embolic workup-No shunt, EF of 55% -Hold home aspirin 81 mg daily and plavix 75 mg daily for potential LP on 05/06 vs 05/07 with radiology -Continue atorvastatin 40 mg daily -Vasculitis workup still pending, appreciate rheum recs. -LEX neg -ANCA<1:20, PR3-0, MPO-0 Assessment & Plan (05/04/2025 1:17 PM CDT): -Ordered further encephalopathy workup: HIV-neg, RPR-neg, B12, WNL, TSH WNL -MRI brain 04/28/25: shows subacute infarction of the R frontoparietal lobs in R MCA territory, some concern for acute infarction due to restricted diffusion. Multiple acute to subacute small foci of infarction scattered within the L centrum semiovale and the L shin radiata. Concerning for embolic stroke -Concern for metastatic lesions noted in the brain and osseous metastasis involving calvarium and axial + appendicular skeleton-- PET scan ordered -PET scan: Focal areas of FDG activity in the R frontal region, suspicious for metastasis, bulky uterus with possible fibroid within the R lateral aspect with an intense increased metabolic activity, suspicious for malignancy. No FDG avid lesion in the R mastectomy bed to suggest local recurrence, no lymph nodes FDG active. -CTA shows multifocal irregular up to severe stenosis of the bilateral anterior, middle and posterior cerebral arteries, more pronounced in the R MCA and up to severe irregular stenosis in the V4 segments of the verteral arteries and the entire basilar artery. 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 Plan: -Obtained records from [facility], no relevant materials were provided unfortunately. -GOC as seen on ACP note -Neurology consulted, appreciate recs -NSGY consulted due to brain mass, not concerned for brain mass as not seen in MRI, no obvious lesion to biopsy. -TTE ordered for embolic workup-No shunt, EF of 55% -Hold home aspirin 81 mg daily and plavix 75 mg daily for potential LP on 05/06 vs 05/07 with radiology -Continue atorvastatin 40 mg daily -Vasculitis workup still pending, appreciate rheum recs. -LEX neg -ANCA<1:20, PR3-0, MPO-0 Assessment & Plan (05/03/2025 11:14 AM CDT): -Ordered further encephalopathy workup: HIV-neg, RPR-neg, B12, WNL, TSH WNL -MRI brain 04/28/25: shows subacute infarction of the R frontoparietal lobs in R MCA territory, some concern for acute infarction due to restricted diffusion. Multiple acute to subacute small foci of infarction scattered within the L centrum semiovale and the L shin radiata. Concerning for embolic stroke -Concern for metastatic lesions noted in the brain and osseous metastasis involving calvarium and axial + appendicular skeleton-- PET scan ordered -PET scan: Focal areas of FDG activity in the R frontal region, suspicious for metastasis, bulky uterus with possible fibroid within the R lateral aspect with an intense increased metabolic activity, suspicious for malignancy. No FDG avid lesion in the R mastectomy bed to suggest local recurrence, no lymph nodes FDG active. -CTA shows multifocal irregular up to severe stenosis of the bilateral anterior, middle and posterior cerebral arteries, more pronounced in the R MCA and up to severe irregular stenosis in the V4 segments of the verteral arteries and the entire basilar artery. 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 Plan: -Obtained records from [facility], no relevant materials were provided unfortunately. -Will have [facility] discussion with patient and POA this PM. -Neurology consulted, appreciate recs -NSGY consulted due to brain mass, not concerned for brain mass as not seen in MRI, no obvious lesion to biopsy. -TTE ordered for embolic workup -Hold home aspirin 81 mg daily and plavix 75 mg daily for potential LP on 05/02 -Continue atorvastatin 40 mg daily -Vasculitis workup still pending, will consult Rheumatology at this time. Assessment & Plan (05/02/2025 1:40 PM CDT): -Ordered further encephalopathy workup: HIV-neg, RPR-neg, B12, WNL, TSH WNL -MRI brain 04/28/25: shows subacute infarction of the R frontoparietal lobs in R MCA territory, some concern for acute infarction due to restricted diffusion. Multiple acute to subacute small foci of infarction scattered within the L centrum semiovale and the L shin radiata. Concerning for embolic stroke -Concern for metastatic lesions noted in the brain and osseous metastasis involving calvarium and axial + appendicular skeleton-- PET scan ordered -PET scan: Focal areas of FDG activity in the R frontal region, suspicious for metastasis, bulky uterus with possible fibroid within the R lateral aspect with an intense increased metabolic activity, suspicious for malignancy. No FDG avid lesion in the R mastectomy bed to suggest local recurrence, no lymph nodes FDG active. -CTA shows multifocal irregular up to severe stenosis of the bilateral anterior, middle and posterior cerebral arteries, more pronounced in the R MCA and up to severe irregular stenosis in the V4 segments of the verteral arteries and the entire basilar artery. 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 Plan: -Obtained records from [facility], no relevant materials were provided unfortunately. -Will have C discussion with patient and POA this PM. -Neurology consulted, appreciate recs -NSGY consulted due to brain mass, not concerned for brain mass as not seen in MRI, no obvious lesion to biopsy. -TTE ordered for embolic workup -Hold home aspirin 81 mg daily and plavix 75 mg daily for potential LP on 05/02 -Continue atorvastatin 40 mg daily -Vasculitis workup still pending, will consult Rheumatology at this time. Assessment & Plan (05/01/2025 3:32 PM CDT): -Ordered further encephalopathy workup: HIV-neg, RPR-neg, B12, WNL, TSH WNL -MRI brain 04/28/25: shows subacute infarction of the R frontoparietal lobs in R MCA territory, some concern for acute infarction due to restricted diffusion. Multiple acute to subacute small foci of infarction scattered within the L centrum semiovale and the L shin radiata. Concerning for embolic stroke -Concern for metastatic lesions noted in the brain and osseous metastasis involving calvarium and axial + appendicular skeleton-- PET scan ordered -PET scan: Focal areas of FDG activity in the R frontal region, suspicious for metastasis, bulky uterus with possible fibroid within the R lateral aspect with an intense increased metabolic activity, suspicious for malignancy. No FDG avid lesion in the R mastectomy bed to suggest local recurrence, no lymph nodes FDG active. Plan: -Will attempt to obtain records from [facility] to further clarify patient's breast cancer Hx -Will defer palliative consultation as etiology of lytic lesions are unknown at this time. Will discuss with POA this PM -Neurology consulted, appreciate recs -NSGY consulted due to brain mass, not concerned for brain mass as not seen in MRI, no obvious lesion to biopsy. -TTE ordered for embolic workup -Hold home aspirin 81 mg daily and plavix 75 mg daily for potential LP on 05/02 -Continue atorvastatin 40 mg daily Assessment & Plan (04/30/2025 11:43 AM CDT): -Ordered further encephalopathy workup: HIV-neg, RPR-neg, B12, WNL, TSH WNL -MRI brain 04/28/25: shows subacute infarction of the R frontoparietal lobs in R MCA territory, some concern for acute infarction due to restricted diffusion. Multiple acute to subacute small foci of infarction scattered within the L centrum semiovale and the L shin radiata. Concerning for embolic stroke -Concern for metastatic lesions noted in the brain and osseous metastasis involving calvarium and axial + appendicular skeleton-- PET scan ordered -PTH level 1633.6 and TSH level 1.328 -CT CAP 04/28/25: 1.7 cm discrete nodule posterior to the R lobe of the thyroid, could potentially represent thyroid vs parathyroid adenoma Plan: -US of neck ordered -PET scan ordered -Will attempt to obtain records from [facility] to further clarify patient's breast cancer Hx -Will defer palliative consultation as etiology of lytic lesions are unknown at this time -Obtain SPEP, patient anuric so will unable to get UPEP -Neurology consulted, appreciate recs -TTE ordered -Restart home aspirin 81 mg daily and plavix 75 mg daily -Continue atorvastatin 40 mg daily -Continue home cinacalcet -Start on vitamin D 37113 units q7 days for 6 weeks. Assessment & Plan (04/29/2025 3:06 PM CDT): -Ordered further encephalopathy workup: HIV-neg, RPR-neg, B12, WNL, TSH WNL -MRI brain 04/28/25: shows subacute infarction of the R frontoparietal lobs in R MCA territory, some concern for acute infarction due to restricted diffusion. Multiple acute to subacute small foci of infarction scattered within the L centrum semiovale and the L shin radiata. Concerning for embolic stroke -Concern for metastatic lesions noted in the brain and osseous metastasis involving calvarium and axial + appendicular skeleton-- PET scan ordered -PTH level 1633.6 and TSH level 1.328 -CT CAP 04/28/25: 1.7 cm discrete nodule posterior to the R lobe of the thyroid, could potentially represent thyroid vs parathyroid adenoma Plan: -US of neck ordered -PET scan ordered Will attempt to obtain records from [facility] to further clarify patient's breast cancer Hx -Will defer palliative consultation as etiology of lytic lesions are unknown at this time -Obtain SPEP/UPEP -Neurology consulted, appreciate recs -TTE ordered -Restart home aspirin 81 mg daily and plavix 75 mg daily -Continue atorvastatin 40 mg daily Assessment & Plan (04/29/2025 2:25 PM CDT): -Ordered further encephalopathy workup: HIV, RPR >F/u B12 >TSH WNL -Restart home aspirin 81 mg daily and plavix 75 mg daily (may be able to transition to aspirin monotherapy for secondary stroke prevention as prior stroke was ~1 month ago) -Continue atorvastatin 40 mg daily -Concern for metastatic lesions noted in the brain and osseous metastasis involving calvarium and axial + appendicular skeleton-- ordered MRI brain wwo contrast tumor protocol and consider PET/CT scan for further evaluation >Will attempt to obtain records from [facility] to further clarify patient's breast cancer Hx >Consider inpatient oncology consultation -Consult palliative care tomorrow for further GOC discussion (see ACP note) Falls, initial encounter 04/29/2025 Assessment & Plan (05/13/2025 9:27 PM CDT): -Presented as an OSH transfer s/p unwitnessed fall at rehab facility for small SAH. No concern for SAH on repeat imaging here. -Non acute T9 compression fracture s/p recurrent falls -Upright spine plain films ordered-shows no subluxation -Orthopedic spine consulted, appreciate recs -No surgical interventions recommended by trauma and orthopedics Plan: -Pain control -PT/OT evaluation- SNF Assessment & Plan (05/12/2025 3:01 PM CDT): -Presented as an OSH transfer s/p unwitnessed fall at rehab facility for small SAH. No concern for SAH on repeat imaging here. -Non acute T9 compression fracture s/p recurrent falls -Upright spine plain films ordered-shows no subluxation -Orthopedic spine consulted, appreciate recs -No surgical interventions recommended by trauma and orthopedics Plan: -Pain control -PT/OT evaluation- SNF Assessment & Plan (05/11/2025 4:41 PM CDT): -Presented as an OSH transfer s/p unwitnessed fall at rehab facility for small SAH. No concern for SAH on repeat imaging here. -Non acute T9 compression fracture s/p recurrent falls -Upright spine plain films ordered-shows no subluxation -Orthopedic spine consulted, appreciate recs -No surgical interventions recommended by trauma and orthopedics Plan: -Pain control -PT/OT evaluation- SNF Assessment & Plan (05/10/2025 8:50 PM CDT): -Presented as an OSH transfer s/p unwitnessed fall at rehab facility for small SAH. No concern for SAH on repeat imaging here. -Non acute T9 compression fracture s/p recurrent falls -Upright spine plain films ordered-shows no subluxation -Orthopedic spine consulted, appreciate recs -No surgical interventions recommended by trauma and orthopedics Plan: -Pain control -PT/OT evaluation- SNF Assessment & Plan (05/09/2025 7:34 PM CDT): -Presented as an OSH transfer s/p unwitnessed fall at rehab facility for small SAH. No concern for SAH on repeat imaging here. -Non acute T9 compression fracture s/p recurrent falls -Upright spine plain films ordered-shows no subluxation -Orthopedic spine consulted, appreciate recs -No surgical interventions recommended by trauma and orthopedics Plan: -Pain control -PT/OT evaluation- SNF Assessment & Plan (05/08/2025 7:15 PM CDT): -Presented as an OSH transfer s/p unwitnessed fall at rehab facility for small SAH. No concern for SAH on repeat imaging here. -Non acute T9 compression fracture s/p recurrent falls -Upright spine plain films ordered-shows no subluxation -Orthopedic spine consulted, appreciate recs -No surgical interventions recommended by trauma and orthopedics Plan: -Pain control -PT/OT evaluation- SNF Assessment & Plan (05/07/2025 9:11 PM CDT): -Presented as an OSH transfer s/p unwitnessed fall at rehab facility for small SAH. No concern for SAH on repeat imaging here. -Non acute T9 compression fracture s/p recurrent falls -Upright spine plain films ordered-shows no subluxation -Orthopedic spine consulted, appreciate recs -No surgical interventions recommended by trauma and orthopedics Plan: -Pain control -PT/OT evaluation- SNF Assessment & Plan (05/06/2025 3:34 PM CDT): -Presented as an OSH transfer s/p unwitnessed fall at rehab facility for small SAH. No concern for SAH on repeat imaging here. -No surgical interventions recommended by trauma and orthopedics Plan: -Pain control -PT/OT evaluation- SNF Assessment & Plan (05/05/2025 12:11 PM CDT): -Presented as an OSH transfer s/p unwitnessed fall at rehab facility for small SAH. No concern for SAH on repeat imaging here. -No surgical interventions recommended by trauma and orthopedics Plan: -Pain control -PT/OT evaluation- SNF Assessment & Plan (05/04/2025 1:17 PM CDT): -Presented as an OSH transfer s/p unwitnessed fall at rehab facility for small SAH. No concern for SAH on repeat imaging here. -No surgical interventions recommended by trauma and orthopedics Plan: -Pain control -PT/OT evaluation-Recommends multidisciplinary therapy Assessment & Plan (05/03/2025 11:14 AM CDT): -Presented as an OSH transfer s/p unwitnessed fall at rehab facility for small SAH. No concern for SAH on repeat imaging here. -No surgical interventions recommended by trauma and orthopedics Plan: -Pain control -PT/OT evaluation-Recommends multidisciplinary therapy Assessment & Plan (05/02/2025 1:40 PM CDT): -Presented as an OSH transfer s/p unwitnessed fall at rehab facility for small SAH. No concern for SAH on repeat imaging here. -No surgical interventions recommended by trauma and orthopedics Plan: -Pain control -PT/OT evaluation-Recommends multidisciplinary therapy Assessment & Plan (05/01/2025 3:32 PM CDT): -Presented as an OSH transfer s/p unwitnessed fall at rehab facility for small SAH. No concern for SAH on repeat imaging here. -No surgical interventions recommended by trauma and orthopedics Plan: -Pain control -PT/OT evaluation-Recommends multidisciplinary therapy Assessment & Plan (04/30/2025 10:30 AM CDT): -Presented as an OSH transfer s/p unwitnessed fall at rehab facility for small SAH. No concern for SAH on repeat imaging here. -No surgical interventions recommended by trauma and orthopedics Plan: -OK to resume antiplatelet agents per surgical consultants -Pain control -PT/OT evaluation-Recommends multidisciplinary therapy Assessment & Plan (04/29/2025 3:05 PM CDT): -Presented as an OSH transfer s/p unwitnessed fall at rehab facility for small SAH. No concern for SAH on repeat imaging here. -No surgical interventions recommended by trauma and orthopedics Plan: -OK to resume antiplatelet agents per surgical consultants -Pain control -PT/OT evaluation-Recommends multidisciplinary therapy Closed wedge compression fracture of T9 vertebra 04/29/2025 Assessment & Plan (05/13/2025 9:27 PM CDT): -Presented as an OSH transfer s/p unwitnessed fall at rehab facility for small SAH. No concern for SAH on repeat imaging here. -Non acute T9 compression fracture s/p recurrent falls -Upright spine plain films ordered-shows no subluxation -Orthopedic spine consulted, appreciate recs -No surgical interventions recommended by trauma and orthopedics Plan: -Pain control -PT/OT evaluation- SNF Assessment & Plan (05/12/2025 3:01 PM CDT): -Presented as an OSH transfer s/p unwitnessed fall at rehab facility for small SAH. No concern for SAH on repeat imaging here. -Non acute T9 compression fracture s/p recurrent falls -Upright spine plain films ordered-shows no subluxation -Orthopedic spine consulted, appreciate recs -No surgical interventions recommended by trauma and orthopedics Plan: -Pain control -PT/OT evaluation- SNF Assessment & Plan (05/11/2025 4:41 PM CDT): -Presented as an OSH transfer s/p unwitnessed fall at rehab facility for small SAH. No concern for SAH on repeat imaging here. -Non acute T9 compression fracture s/p recurrent falls -Upright spine plain films ordered-shows no subluxation -Orthopedic spine consulted, appreciate recs -No surgical interventions recommended by trauma and orthopedics Plan: -Pain control -PT/OT evaluation- SNF Assessment & Plan (05/10/2025 8:50 PM CDT): -Presented as an OSH transfer s/p unwitnessed fall at rehab facility for small SAH. No concern for SAH on repeat imaging here. -Non acute T9 compression fracture s/p recurrent falls -Upright spine plain films ordered-shows no subluxation -Orthopedic spine consulted, appreciate recs -No surgical interventions recommended by trauma and orthopedics Plan: -Pain control -PT/OT evaluation- SNF Assessment & Plan (05/09/2025 7:34 PM CDT): -Presented as an OSH transfer s/p unwitnessed fall at rehab facility for small SAH. No concern for SAH on repeat imaging here. -Non acute T9 compression fracture s/p recurrent falls -Upright spine plain films ordered-shows no subluxation -Orthopedic spine consulted, appreciate recs -No surgical interventions recommended by trauma and orthopedics Plan: -Pain control -PT/OT evaluation- SNF Assessment & Plan (05/08/2025 7:15 PM CDT): -Presented as an OSH transfer s/p unwitnessed fall at rehab facility for small SAH. No concern for SAH on repeat imaging here. -Non acute T9 compression fracture s/p recurrent falls -Upright spine plain films ordered-shows no subluxation -Orthopedic spine consulted, appreciate recs -No surgical interventions recommended by trauma and orthopedics Plan: -Pain control -PT/OT evaluation- SNF Assessment & Plan (05/07/2025 9:11 PM CDT): -Presented as an OSH transfer s/p unwitnessed fall at rehab facility for small SAH. No concern for SAH on repeat imaging here. -Non acute T9 compression fracture s/p recurrent falls -Upright spine plain films ordered-shows no subluxation -Orthopedic spine consulted, appreciate recs -No surgical interventions recommended by trauma and orthopedics Plan: -Pain control -PT/OT evaluation- SNF Assessment & Plan (05/06/2025 3:34 PM CDT): -Non acute T9 compression fracture s/p recurrent falls -Orthopedic spine consulted, appreciate recs Plan: -Activity as tolerated -Okay for anticoagulation from spine perspective -Upright spine plain films ordered-shows no subluxation -PT/OT - SNF Assessment & Plan (05/05/2025 12:11 PM CDT): -Non acute T9 compression fracture s/p recurrent falls -Orthopedic spine consulted, appreciate recs Plan: -Activity as tolerated -Okay for anticoagulation from spine perspective -Upright spine plain films ordered-shows no subluxation -PT/OT - SNF Assessment & Plan (05/04/2025 1:17 PM CDT): -Non acute T9 compression fracture s/p recurrent falls -Orthopedic spine consulted, appreciate recs Plan: -Activity as tolerated -Okay for anticoagulation from spine perspective -Upright spine plain films ordered-shows no subluxation -PT/OT Assessment & Plan (05/03/2025 11:14 AM CDT): -Non acute T9 compression fracture s/p recurrent falls -Orthopedic spine consulted, appreciate recs Plan: -Activity as tolerated -Okay for anticoagulation from spine perspective -Upright spine plain films ordered-shows no subluxation -PT/OT Assessment & Plan (05/02/2025 1:40 PM CDT): -Non acute T9 compression fracture s/p recurrent falls -Orthopedic spine consulted, appreciate recs Plan: -Activity as tolerated -Okay for anticoagulation from spine perspective -Upright spine plain films ordered-shows no subluxation -PT/OT Assessment & Plan (05/01/2025 3:32 PM CDT): -Non acute T9 compression fracture s/p recurrent falls -Orthopedic spine consulted, appreciate recs Plan: -Activity as tolerated -Okay for anticoagulation from spine perspective -Upright spine plain films ordered-awaiting final reads -PT/OT Assessment & Plan (04/30/2025 11:34 AM CDT): -Non acute T9 compression fracture s/p recurrent falls -Orthopedic spine consulted, appreciate recs Plan: -Activity as tolerated -Okay for anticoagulation -Upright spine plain films ordered-awaiting final reads -PT/OT Assessment & Plan (04/29/2025 3:05 PM CDT): -Non acute T9 compression fracture s/p recurrent falls -Orthopedic spine consulted, appreciate recs Plan: -Activity as tolerated -Okay for anticoagulation -Upright spine plain films ordered -PT/OT Thyroid nodule 04/29/2025 Assessment & Plan (05/07/2025 9:11 PM CDT): Labs: PTH 1633.6 pg/mL; TSH 1.328 IU/mL. Imaging: CT CAP (04/28/25): 1.7 cm discrete nodule posterior to the right lobe of the thyroid--possible thyroid vs parathyroid adenoma. Thyroid Ultrasound: 1.4 cm hypoechoic lesion in the posterior lateral aspect of the left thyroid and 1.6 cm hypoechoic lesion posterior to the right thyroid, most consistent with parathyroid adenomas. Calcium: Within normal limits when adjusted, but ionized calcium is low (hypocalcemic). Plan: SPEP negative (patient is anuric, so UPEP not feasible). Continue home cinacalcet. Start vitamin D 50,000 units weekly for 6 weeks. Sestamibi Scan: Suggestive of two parathyroid adenomas. ENT consulted; will discuss with parathyroid specialists. No urgent surgical intervention indicated at this time. Awaiting goals of care discussion given concurrent malignancy and vasculitis workup. Will re-engage ENT if decision made to pursue surgery. Assessment & Plan (05/06/2025 3:34 PM CDT): -PTH level 1633.6 and TSH level 1.328 -CT CAP 04/28/25: 1.7 cm discrete nodule posterior to the R lobe of the thyroid, could potentially represent thyroid vs parathyroid adenoma -Thyroid US: Shows 1.4 cm hypoechoic lesion in the posterior lateral aspect of the left thyroid and a 1.6 cm hypoechoic lesion posterior to the right thyroid most consistent with parathyroid adenomas. -Calcium WNL when adjusted, however hypocalcemic with ical. Plan: -Obtain SPEP, patient anuric so will unable to get UPEP -Continue home cinacalcet -Start on vitamin D 97533 units q7 days for 6 weeks. -Sestamibi scan-shows potential 2 adenomas present, consulted ENT - will d/w parathyroid specialists but no urgent operative intervention. Pending goals of care in background of malignancy and vasculitis workup. Reach out to ENT if decision made to pursue surgery. Assessment & Plan (05/05/2025 12:11 PM CDT): -PTH level 1633.6 and TSH level 1.328 -CT CAP 04/28/25: 1.7 cm discrete nodule posterior to the R lobe of the thyroid, could potentially represent thyroid vs parathyroid adenoma -Thyroid US: Shows 1.4 cm hypoechoic lesion in the posterior lateral aspect of the left thyroid and a 1.6 cm hypoechoic lesion posterior to the right thyroid most consistent with parathyroid adenomas. -Calcium WNL when adjusted, however hypocalcemic with ical. Plan: -Obtain SPEP, patient anuric so will unable to get UPEP -Continue home cinacalcet -Start on vitamin D 70112 units q7 days for 6 weeks. -Sestamibi scan-shows potential 2 adenomas present, consulted ENT - will d/w parathyroid specialists but no urgent operative intervention. Pending goals of care in background of malignancy and vasculitis workup. Reach out to ENT if decision made to pursue surgery. Assessment & Plan (05/04/2025 1:51 PM CDT): -PTH level 1633.6 and TSH level 1.328 -CT CAP 04/28/25: 1.7 cm discrete nodule posterior to the R lobe of the thyroid, could potentially represent thyroid vs parathyroid adenoma -Thyroid US: Shows 1.4 cm hypoechoic lesion in the posterior lateral aspect of the left thyroid and a 1.6 cm hypoechoic lesion posterior to the right thyroid most consistent with parathyroid adenomas. -Calcium WNL when adjusted, however hypocalcemic with ical. Plan: -Obtain SPEP, patient anuric so will unable to get UPEP -Continue home cinacalcet -Start on vitamin D 16155 units q7 days for 6 weeks. -Sestamibi scan-shows potential 2 adenomas present, Will consult ENT, appreciate recs Assessment & Plan (05/03/2025 11:14 AM CDT): -PTH level 1633.6 and TSH level 1.328 -CT CAP 04/28/25: 1.7 cm discrete nodule posterior to the R lobe of the thyroid, could potentially represent thyroid vs parathyroid adenoma -Thyroid US: Shows 1.4 cm hypoechoic lesion in the posterior lateral aspect of the left thyroid and a 1.6 cm hypoechoic lesion posterior to the right thyroid most consistent with parathyroid adenomas. -Calcium WNL when adjusted, however hypocalcemic with ical. Plan: -Obtain SPEP, patient anuric so will unable to get UPEP -Continue home cinacalcet -Start on vitamin D 29768 units q7 days for 6 weeks. -Sestamibi scan pending read Assessment & Plan (05/02/2025 1:40 PM CDT): -PTH level 1633.6 and TSH level 1.328 -CT CAP 04/28/25: 1.7 cm discrete nodule posterior to the R lobe of the thyroid, could potentially represent thyroid vs parathyroid adenoma -Thyroid US: Shows 1.4 cm hypoechoic lesion in the posterior lateral aspect of the left thyroid and a 1.6 cm hypoechoic lesion posterior to the right thyroid most consistent with parathyroid adenomas. -Calcium WNL when adjusted, however hypocalcemic with ical. Plan: -Obtain SPEP, patient anuric so will unable to get UPEP -Continue home cinacalcet -Start on vitamin D 36557 units q7 days for 6 weeks. -Sestamibi scan ordered Assessment & Plan (05/01/2025 3:32 PM CDT): -PTH level 1633.6 and TSH level 1.328 -CT CAP 04/28/25: 1.7 cm discrete nodule posterior to the R lobe of the thyroid, could potentially represent thyroid vs parathyroid adenoma -Thyroid US: Shows 1.4 cm hypoechoic lesion in the posterior lateral aspect of the left thyroid and a 1.6 cm hypoechoic lesion posterior to the right thyroid most consistent with parathyroid adenomas. -Calcium WNL when adjusted, however hypocalcemic with ical. Plan: -Obtain SPEP, patient anuric so will unable to get UPEP -Continue home cinacalcet -Start on vitamin D 47108 units q7 days for 6 weeks. -Sestamibi scan ordered Assessment & Plan (04/30/2025 11:43 AM CDT): -Ordered further encephalopathy workup: HIV-neg, RPR-neg, B12, WNL, TSH WNL -MRI brain 04/28/25: shows subacute infarction of the R frontoparietal lobs in R MCA territory, some concern for acute infarction due to restricted diffusion. Multiple acute to subacute small foci of infarction scattered within the L centrum semiovale and the L shin radiata. Concerning for embolic stroke -Concern for metastatic lesions noted in the brain and osseous metastasis involving calvarium and axial + appendicular skeleton-- PET scan ordered -PTH level 1633.6 and TSH level 1.328 -CT CAP 04/28/25: 1.7 cm discrete nodule posterior to the R lobe of the thyroid, could potentially represent thyroid vs parathyroid adenoma Plan: -US of neck ordered -PET scan ordered -Will attempt to obtain records from [facility] to further clarify patient's breast cancer Hx -Will defer palliative consultation as etiology of lytic lesions are unknown at this time -Obtain SPEP, patient anuric so will unable to get UPEP -Neurology consulted, appreciate recs -TTE ordered -Restart home aspirin 81 mg daily and plavix 75 mg daily -Continue atorvastatin 40 mg daily -Continue home cinacalcet -Start on vitamin D 03251 units q7 days for 6 weeks. Assessment & Plan (04/29/2025 3:06 PM CDT): -Ordered further encephalopathy workup: HIV-neg, RPR-neg, B12, WNL, TSH WNL -MRI brain 04/28/25: shows subacute infarction of the R frontoparietal lobs in R MCA territory, some concern for acute infarction due to restricted diffusion. Multiple acute to subacute small foci of infarction scattered within the L centrum semiovale and the L shin radiata. Concerning for embolic stroke -Concern for metastatic lesions noted in the brain and osseous metastasis involving calvarium and axial + appendicular skeleton-- PET scan ordered -PTH level 1633.6 and TSH level 1.328 -CT CAP 04/28/25: 1.7 cm discrete nodule posterior to the R lobe of the thyroid, could potentially represent thyroid vs parathyroid adenoma Plan: -US of neck ordered -PET scan ordered Will attempt to obtain records from [facility] to further clarify patient's breast cancer Hx -Will defer palliative consultation as etiology of lytic lesions are unknown at this time -Obtain SPEP/UPEP -Neurology consulted, appreciate recs -TTE ordered -Restart home aspirin 81 mg daily and plavix 75 mg daily -Continue atorvastatin 40 mg daily Hyperparathyroidism due to e nd stage renal disease on dialysis 04/29/2025 Assessment & Plan (05/13/2025 9:27 PM CDT): Labs: PTH 1633.6 pg/mL; TSH 1.328 IU/mL. Imaging: CT CAP (04/28/25): 1.7 cm discrete nodule posterior to the right lobe of the thyroid--possible thyroid vs parathyroid adenoma. Thyroid Ultrasound: 1.4 cm hypoechoic lesion in the posterior lateral aspect of the left thyroid and 1.6 cm hypoechoic lesion posterior to the right thyroid, most consistent with parathyroid adenomas. Calcium: Within normal limits when adjusted, but ionized calcium is low (hypocalcemic). Plan: SPEP negative (patient is anuric, so UPEP not feasible). Continue home cinacalcet. Continue vitamin D 50,000 units weekly for 6 weeks. Sestamibi Scan: Suggestive of two parathyroid adenomas. ENT consulted; will discuss with parathyroid specialists. No urgent surgical intervention indicated at this time. Follow up as OP Assessment & Plan (05/12/2025 3:01 PM CDT): Labs: PTH 1633.6 pg/mL; TSH 1.328 IU/mL. Imaging: CT CAP (04/28/25): 1.7 cm discrete nodule posterior to the right lobe of the thyroid--possible thyroid vs parathyroid adenoma. Thyroid Ultrasound: 1.4 cm hypoechoic lesion in the posterior lateral aspect of the left thyroid and 1.6 cm hypoechoic lesion posterior to the right thyroid, most consistent with parathyroid adenomas. Calcium: Within normal limits when adjusted, but ionized calcium is low (hypocalcemic). Plan: SPEP negative (patient is anuric, so UPEP not feasible). Continue home cinacalcet. Continue vitamin D 50,000 units weekly for 6 weeks. Sestamibi Scan: Suggestive of two parathyroid adenomas. ENT consulted; will discuss with parathyroid specialists. No urgent surgical intervention indicated at this time. Follow up as OP Assessment & Plan (05/11/2025 4:41 PM CDT): Labs: PTH 1633.6 pg/mL; TSH 1.328 IU/mL. Imaging: CT CAP (04/28/25): 1.7 cm discrete nodule posterior to the right lobe of the thyroid--possible thyroid vs parathyroid adenoma. Thyroid Ultrasound: 1.4 cm hypoechoic lesion in the posterior lateral aspect of the left thyroid and 1.6 cm hypoechoic lesion posterior to the right thyroid, most consistent with parathyroid adenomas. Calcium: Within normal limits when adjusted, but ionized calcium is low (hypocalcemic). Plan: SPEP negative (patient is anuric, so UPEP not feasible). Continue home cinacalcet. Continue vitamin D 50,000 units weekly for 6 weeks. Sestamibi Scan: Suggestive of two parathyroid adenomas. ENT consulted; will discuss with parathyroid specialists. No urgent surgical intervention indicated at this time. Follow up as OP Assessment & Plan (05/10/2025 8:50 PM CDT): Labs: PTH 1633.6 pg/mL; TSH 1.328 IU/mL. Imaging: CT CAP (04/28/25): 1.7 cm discrete nodule posterior to the right lobe of the thyroid--possible thyroid vs parathyroid adenoma. Thyroid Ultrasound: 1.4 cm hypoechoic lesion in the posterior lateral aspect of the left thyroid and 1.6 cm hypoechoic lesion posterior to the right thyroid, most consistent with parathyroid adenomas. Calcium: Within normal limits when adjusted, but ionized calcium is low (hypocalcemic). Plan: SPEP negative (patient is anuric, so UPEP not feasible). Continue home cinacalcet. Continue vitamin D 50,000 units weekly for 6 weeks. Sestamibi Scan: Suggestive of two parathyroid adenomas. ENT consulted; will discuss with parathyroid specialists. No urgent surgical intervention indicated at this time. Follow up as OP Assessment & Plan (05/09/2025 7:34 PM CDT): Labs: PTH 1633.6 pg/mL; TSH 1.328 IU/mL. Imaging: CT CAP (04/28/25): 1.7 cm discrete nodule posterior to the right lobe of the thyroid--possible thyroid vs parathyroid adenoma. Thyroid Ultrasound: 1.4 cm hypoechoic lesion in the posterior lateral aspect of the left thyroid and 1.6 cm hypoechoic lesion posterior to the right thyroid, most consistent with parathyroid adenomas. Calcium: Within normal limits when adjusted, but ionized calcium is low (hypocalcemic). Plan: SPEP negative (patient is anuric, so UPEP not feasible). Continue home cinacalcet. Continue vitamin D 50,000 units weekly for 6 weeks. Sestamibi Scan: Suggestive of two parathyroid adenomas. ENT consulted; will discuss with parathyroid specialists. No urgent surgical intervention indicated at this time. Awaiting goals of care discussion given concurrent malignancy and vasculitis workup. Will re-engage ENT if decision made to pursue surgery. Assessment & Plan (05/08/2025 8:39 PM CDT): Labs: PTH 1633.6 pg/mL; TSH 1.328 IU/mL. Imaging: CT CAP (04/28/25): 1.7 cm discrete nodule posterior to the right lobe of the thyroid--possible thyroid vs parathyroid adenoma. Thyroid Ultrasound: 1.4 cm hypoechoic lesion in the posterior lateral aspect of the left thyroid and 1.6 cm hypoechoic lesion posterior to the right thyroid, most consistent with parathyroid adenomas. Calcium: Within normal limits when adjusted, but ionized calcium is low (hypocalcemic). Plan: SPEP negative (patient is anuric, so UPEP not feasible). Continue home cinacalcet. Start vitamin D 50,000 units weekly for 6 weeks. Sestamibi Scan: Suggestive of two parathyroid adenomas. ENT consulted; will discuss with parathyroid specialists. No urgent surgical intervention indicated at this time. Awaiting goals of care discussion given concurrent malignancy and vasculitis workup. Will re-engage ENT if decision made to pursue surgery. Assessment & Plan (05/07/2025 9:11 PM CDT): Labs: PTH 1633.6 pg/mL; TSH 1.328 IU/mL. Imaging: CT CAP (04/28/25): 1.7 cm discrete nodule posterior to the right lobe of the thyroid--possible thyroid vs parathyroid adenoma. Thyroid Ultrasound: 1.4 cm hypoechoic lesion in the posterior lateral aspect of the left thyroid and 1.6 cm hypoechoic lesion posterior to the right thyroid, most consistent with parathyroid adenomas. Calcium: Within normal limits when adjusted, but ionized calcium is low (hypocalcemic). Plan: SPEP negative (patient is anuric, so UPEP not feasible). Continue home cinacalcet. Start vitamin D 50,000 units weekly for 6 weeks. Sestamibi Scan: Suggestive of two parathyroid adenomas. ENT consulted; will discuss with parathyroid specialists. No urgent surgical intervention indicated at this time. Awaiting goals of care discussion given concurrent malignancy and vasculitis workup. Will re-engage ENT if decision made to pursue surgery. Assessment & Plan (05/06/2025 3:34 PM CDT): -PTH level 1633.6 and TSH level 1.328 -CT CAP 04/28/25: 1.7 cm discrete nodule posterior to the R lobe of the thyroid, could potentially represent thyroid vs parathyroid adenoma -Thyroid US: Shows 1.4 cm hypoechoic lesion in the posterior lateral aspect of the left thyroid and a 1.6 cm hypoechoic lesion posterior to the right thyroid most consistent with parathyroid adenomas. -Calcium WNL when adjusted, however hypocalcemic with ical. Plan: -Obtain SPEP, patient anuric so will unable to get UPEP -Continue home cinacalcet -Start on vitamin D 63460 units q7 days for 6 weeks. -Sestamibi scan-shows potential 2 adenomas present, consulted ENT - will d/w parathyroid specialists but no urgent operative intervention. Pending goals of care in background of malignancy and vasculitis workup. Reach out to ENT if decision made to pursue surgery. Assessment & Plan (05/05/2025 12:11 PM CDT): -PTH level 1633.6 and TSH level 1.328 -CT CAP 04/28/25: 1.7 cm discrete nodule posterior to the R lobe of the thyroid, could potentially represent thyroid vs parathyroid adenoma -Thyroid US: Shows 1.4 cm hypoechoic lesion in the posterior lateral aspect of the left thyroid and a 1.6 cm hypoechoic lesion posterior to the right thyroid most consistent with parathyroid adenomas. -Calcium WNL when adjusted, however hypocalcemic with ical. Plan: -Obtain SPEP, patient anuric so will unable to get UPEP -Continue home cinacalcet -Start on vitamin D 19396 units q7 days for 6 weeks. -Sestamibi scan-shows potential 2 adenomas present, consulted ENT - will d/w parathyroid specialists but no urgent operative intervention. Pending goals of care in background of malignancy and vasculitis workup. Reach out to ENT if decision made to pursue surgery. Assessment & Plan (05/04/2025 1:51 PM CDT): -PTH level 1633.6 and TSH level 1.328 -CT CAP 04/28/25: 1.7 cm discrete nodule posterior to the R lobe of the thyroid, could potentially represent thyroid vs parathyroid adenoma -Thyroid US: Shows 1.4 cm hypoechoic lesion in the posterior lateral aspect of the left thyroid and a 1.6 cm hypoechoic lesion posterior to the right thyroid most consistent with parathyroid adenomas. -Calcium WNL when adjusted, however hypocalcemic with ical. Plan: -Obtain SPEP, patient anuric so will unable to get UPEP -Continue home cinacalcet -Start on vitamin D 09859 units q7 days for 6 weeks. -Sestamibi scan-shows potential 2 adenomas present, Will consult ENT, appreciate recs Assessment & Plan (05/03/2025 11:14 AM CDT): -PTH level 1633.6 and TSH level 1.328 -CT CAP 04/28/25: 1.7 cm discrete nodule posterior to the R lobe of the thyroid, could potentially represent thyroid vs parathyroid adenoma -Thyroid US: Shows 1.4 cm hypoechoic lesion in the posterior lateral aspect of the left thyroid and a 1.6 cm hypoechoic lesion posterior to the right thyroid most consistent with parathyroid adenomas. -Calcium WNL when adjusted, however hypocalcemic with ical. Plan: -Obtain SPEP, patient anuric so will unable to get UPEP -Continue home cinacalcet -Start on vitamin D 93271 units q7 days for 6 weeks. -Sestamibi scan pending read Assessment & Plan (05/02/2025 1:40 PM CDT): -PTH level 1633.6 and TSH level 1.328 -CT CAP 04/28/25: 1.7 cm discrete nodule posterior to the R lobe of the thyroid, could potentially represent thyroid vs parathyroid adenoma -Thyroid US: Shows 1.4 cm hypoechoic lesion in the posterior lateral aspect of the left thyroid and a 1.6 cm hypoechoic lesion posterior to the right thyroid most consistent with parathyroid adenomas. -Calcium WNL when adjusted, however hypocalcemic with ical. Plan: -Obtain SPEP, patient anuric so will unable to get UPEP -Continue home cinacalcet -Start on vitamin D 87501 units q7 days for 6 weeks. -Sestamibi scan ordered Assessment & Plan (05/01/2025 3:32 PM CDT): -PTH level 1633.6 and TSH level 1.328 -CT CAP 04/28/25: 1.7 cm discrete nodule posterior to the R lobe of the thyroid, could potentially represent thyroid vs parathyroid adenoma -Thyroid US: Shows 1.4 cm hypoechoic lesion in the posterior lateral aspect of the left thyroid and a 1.6 cm hypoechoic lesion posterior to the right thyroid most consistent with parathyroid adenomas. -Calcium WNL when adjusted, however hypocalcemic with ical. Plan: -Obtain SPEP, patient anuric so will unable to get UPEP -Continue home cinacalcet -Start on vitamin D 25167 units q7 days for 6 weeks. -Sestamibi scan ordered Assessment & Plan (04/30/2025 11:43 AM CDT): -Ordered further encephalopathy workup: HIV-neg, RPR-neg, B12, WNL, TSH WNL -MRI brain 04/28/25: shows subacute infarction of the R frontoparietal lobs in R MCA territory, some concern for acute infarction due to restricted diffusion. Multiple acute to subacute small foci of infarction scattered within the L centrum semiovale and the L shin radiata. Concerning for embolic stroke -Concern for metastatic lesions noted in the brain and osseous metastasis involving calvarium and axial + appendicular skeleton-- PET scan ordered -PTH level 1633.6 and TSH level 1.328 -CT CAP 04/28/25: 1.7 cm discrete nodule posterior to the R lobe of the thyroid, could potentially represent thyroid vs parathyroid adenoma Plan: -US of neck ordered -PET scan ordered -Will attempt to obtain records from [facility] to further clarify patient's breast cancer Hx -Will defer palliative consultation as etiology of lytic lesions are unknown at this time -Obtain SPEP, patient anuric so will unable to get UPEP -Neurology consulted, appreciate recs -TTE ordered -Restart home aspirin 81 mg daily and plavix 75 mg daily -Continue atorvastatin 40 mg daily -Continue home cinacalcet -Start on vitamin D 84930 units q7 days for 6 weeks. Assessment & Plan (04/29/2025 3:06 PM CDT): -Ordered further encephalopathy workup: HIV-neg, RPR-neg, B12, WNL, TSH WNL -MRI brain 04/28/25: shows subacute infarction of the R frontoparietal lobs in R MCA territory, some concern for acute infarction due to restricted diffusion. Multiple acute to subacute small foci of infarction scattered within the L centrum semiovale and the L shin radiata. Concerning for embolic stroke -Concern for metastatic lesions noted in the brain and osseous metastasis involving calvarium and axial + appendicular skeleton-- PET scan ordered -PTH level 1633.6 and TSH level 1.328 -CT CAP 04/28/25: 1.7 cm discrete nodule posterior to the R lobe of the thyroid, could potentially represent thyroid vs parathyroid adenoma Plan: -US of neck ordered -PET scan ordered Will attempt to obtain records from [facility] to further clarify patient's breast cancer Hx -Will defer palliative consultation as etiology of lytic lesions are unknown at this time -Obtain SPEP/UPEP -Neurology consulted, appreciate recs -TTE ordered -Restart home aspirin 81 mg daily and plavix 75 mg daily -Continue atorvastatin 40 mg daily ESRD (end stage renal disease) 04/29/2025 Assessment & Plan (05/13/2025 9:27 PM CDT): -nephro followed for HD MWF -Holding home sodium bicarb 1300 mg BID given mild alkalosis that was POA -Continue home cinacalcet 30 mg daily -Access: [facility] tunneled dialysis line Assessment & Plan (05/12/2025 3:01 PM CDT): -nephro following for HD MWF -Holding home sodium bicarb 1300 mg BID given mild alkalosis that was POA -Continue home cinacalcet 30 mg daily -Access: [facility] tunneled dialysis line Assessment & Plan (05/11/2025 4:41 PM CDT): -nephro following for HD MWF -Holding home sodium bicarb 1300 mg BID given mild alkalosis that was POA -Continue home cinacalcet 30 mg daily -Access: [facility] tunneled dialysis line Assessment & Plan (05/10/2025 8:50 PM CDT): -nephro following for HD MWF -Holding home sodium bicarb 1300 mg BID given mild alkalosis that was POA -Continue home cinacalcet 30 mg daily -Access: [facility] tunneled dialysis line Assessment & Plan (05/09/2025 7:34 PM CDT): -nephro following for HD MWF -Holding home sodium bicarb 1300 mg BID given mild alkalosis that was POA -Continue home cinacalcet 30 mg daily -Access: [facility] tunneled dialysis line Assessment & Plan (05/08/2025 7:15 PM CDT): -nephro following for HD MWF -Hold home sodium bicarb 1300 mg BID given mild alkalosis that was POA -Continue home cinacalcet 30 mg daily -Access: [facility] tunneled dialysis line Assessment & Plan (05/07/2025 9:11 PM CDT): -nephro following for HD MWF -Hold home sodium bicarb 1300 mg BID given mild alkalosis that was POA -Continue home cinacalcet 30 mg daily -Access: [facility] tunneled dialysis line Assessment & Plan (05/06/2025 3:34 PM CDT): -Consulted nephro for HD MWF -Hold home sodium bicarb 1300 mg BID given mild alkalosis that was POA -Continue home cinacalcet 30 mg daily -Access: [facility] tunneled dialysis line Assessment & Plan (05/05/2025 12:11 PM CDT): -Consulted nephro for HD MWF -Hold home sodium bicarb 1300 mg BID given mild alkalosis that was POA -Continue home cinacalcet 30 mg daily -Access: [facility] tunneled dialysis line Assessment & Plan (05/04/2025 1:17 PM CDT): [facility] Quick Recap - Optional: Managed by nephrology -Consulted nephro to resume HD MWF (last HD session Thursday 04/26 per rehab facility) >No urgent HD needs at this time, plan on regular MWF time -Hold home sodium bicarb 1300 mg BID given mild alkalosis that has developed -Continue home cinacalcet 30 mg daily -CTM daily RFP -Access: [facility] tunneled dialysis line Assessment & Plan (05/03/2025 11:14 AM CDT): [facility] Quick Recap - Optional: Managed by nephrology -Consulted nephro to resume HD MWF (last HD session Thursday 04/26 per rehab facility) >No urgent HD needs at this time, plan on regular MWF time -Hold home sodium bicarb 1300 mg BID given mild alkalosis that has developed -Continue home cinacalcet 30 mg daily -CTM daily RFP -Access: [facility] tunneled dialysis line Assessment & Plan (05/02/2025 1:40 PM CDT): [facility] Quick Recap - Optional: Managed by nephrology -Consulted nephro to resume HD MWF (last HD session Thursday 04/26 per rehab facility) >No urgent HD needs at this time, plan on regular MWF time -Hold home sodium bicarb 1300 mg BID given mild alkalosis that has developed -Continue home cinacalcet 30 mg daily -CTM daily RFP -Access: [facility] tunneled dialysis line Assessment & Plan (05/01/2025 2:51 PM CDT): [facility] Quick Recap - Optional: Managed by nephrology -Consulted nephro to resume HD MWF (last HD session Thursday 04/26 per rehab facility) >No urgent HD needs at this time, plan on regular MWF time -Hold home sodium bicarb 1300 mg BID given mild alkalosis that has developed -Continue home cinacalcet 30 mg daily -CTM daily RFP -Access: [facility] tunneled dialysis line Assessment & Plan (04/30/2025 11:34 AM CDT): [facility] Quick Recap - Optional: Managed by nephrology -Consulted nephro to resume HD MWF (last HD session Thursday 04/26 per rehab facility) >No urgent HD needs at this time, plan on regular MWF time -Hold home sodium bicarb 1300 mg BID given mild alkalosis that has developed -Continue home cinacalcet 30 mg daily -CTM daily RFP -Access: [facility] tunneled dialysis line Assessment & Plan (04/29/2025 3:05 PM CDT): [facility] Quick Recap - Optional: Managed by nephrology -Consulted nephro to resume HD MWF (last HD session Thursday 04/26 per rehab facility) >No urgent HD needs at this time, plan on regular MWF time -Hold home sodium bicarb 1300 mg BID given mild alkalosis that has developed -Continue home cinacalcet 30 mg daily -CTM daily RFP -Access: [facility] tunneled dialysis line Assessment & Plan (04/29/2025 2:52 PM CDT): [facility] Quick Recap - Optional: Managed by nephrology -Consulted nephro to resume HD MWF (last HD session Thursday 04/26 per rehab facility) >No urgent HD needs at this time -Hold home sodium bicarb 1300 mg BID given mild alkalosis that has developed -Continue home cinacalcet 30 mg daily -CTM daily RFP Primary hypertension 04/29/2025 Assessment & Plan (05/13/2025 9:27 PM CDT): Home Regimen: Carvedilol (Coreg) 12.5 mg BID Plan: Resumed carvedilol 12.5 mg BID. Assessment & Plan (05/12/2025 3:01 PM CDT): Home Regimen: Carvedilol (Coreg) 12.5 mg BID; lisinopril 20 mg daily (uncertain). Plan: Resumed carvedilol 12.5 mg BID. Verify home use of lisinopril before resuming. Assessment & Plan (05/11/2025 4:41 PM CDT): Home Regimen: Carvedilol (Coreg) 12.5 mg BID; lisinopril 20 mg daily (uncertain). Plan: Resumed carvedilol 12.5 mg BID. Verify home use of lisinopril before resuming. Assessment & Plan (05/10/2025 8:50 PM CDT): Home Regimen: Carvedilol (Coreg) 12.5 mg BID; lisinopril 20 mg daily (uncertain). Plan: Resumed carvedilol 12.5 mg BID. Verify home use of lisinopril before resuming. Assessment & Plan (05/09/2025 7:34 PM CDT): Home Regimen: Carvedilol (Coreg) 12.5 mg BID; lisinopril 20 mg daily (uncertain). Plan: Resumed carvedilol 12.5 mg BID. Verify home use of lisinopril before resuming. Assessment & Plan (05/08/2025 7:15 PM CDT): Home Regimen: Carvedilol (Coreg) 12.5 mg BID; lisinopril 20 mg daily (uncertain). Plan: Resumed carvedilol 12.5 mg BID. Verify home use of lisinopril before resuming. Assessment & Plan (05/07/2025 9:11 PM CDT): Home Regimen: Carvedilol (Coreg) 12.5 mg BID; lisinopril 20 mg daily (uncertain). Plan: Resumed carvedilol 12.5 mg BID. Verify home use of lisinopril before resuming. Assessment & Plan (05/06/2025 3:34 PM CDT): -Home regimen: lisinopril 20 mg daily?, coreg 12.5 mg BID Plan: -Resume coreg 12.5 mg BID, will evaluate if patient was on lisinopril Assessment & Plan (05/05/2025 12:11 PM CDT): -Home regimen: lisinopril 20 mg daily?, coreg 12.5 mg BID Plan: -Resume coreg 12.5 mg BID, will evaluate if patient was on lisinopril Assessment & Plan (05/04/2025 1:17 PM CDT): -Home regimen: lisinopril 20 mg daily?, coreg 12.5 mg BID Plan: -Resume coreg 12.5 mg BID, will evaluate if patient was on lisinopril Assessment & Plan (05/03/2025 11:14 AM CDT): -Home regimen: lisinopril 20 mg daily?, coreg 12.5 mg BID Plan: -Resume coreg 12.5 mg BID, will evaluate if patient was on lisinopril Assessment & Plan (05/02/2025 1:40 PM CDT): -Home regimen: lisinopril 20 mg daily?, coreg 12.5 mg BID Plan: -Resume coreg 12.5 mg BID, will evaluate if patient was on lisinopril Assessment & Plan (05/01/2025 2:51 PM CDT): -Home regimen: lisinopril 20 mg daily?, coreg 12.5 mg BID Plan: -Resume coreg 12.5 mg BID, will evaluate if patient was on lisinopril Assessment & Plan (04/30/2025 10:30 AM CDT): -Home regimen: lisinopril 20 mg daily?, coreg 12.5 mg BID Plan: -Resume coreg 12.5 mg BID, will evaluate if patient was on lisinopril Assessment & Plan (04/29/2025 3:08 PM CDT): -Home regimen: lisinopril 20 mg daily?, coreg 12.5 mg BID Plan: -Resume coreg 12.5 mg BID, will evaluate if patient was on lisinopril Assessment & Plan (04/29/2025 2:53 PM CDT): -Home regimen: lisinopril 20 mg daily, coreg 12.5 mg BID Plan: -Resume coreg 12.5 mg BID -Hold home lisinopril in setting of normotension, consider restarting tomorrow Type 2 diabetes mellitus with unspecified compli cations 04/29/2025 Assessment & Plan (05/13/2025 9:27 PM CDT): -hypoglycemia--spontaneous likely secondary to decreased p.o. intake in the context of ESRD; intermittent snacks and encourage 3 meals a day and avoid insulin; hypoglycemia workup ordered; hypoglycemia protocol reviewed with RN; hypoglycemia improved with treatment; continue to monitor Accu-Cheks Last A1c 4.5 (04/29/25), diet controlled Assessment & Plan (05/12/2025 3:01 PM CDT): -hypoglycemia--spontaneous likely secondary to decreased p.o. intake in the context of ESRD; intermittent snacks and encourage 3 meals a day and avoid insulin; hypoglycemia workup ordered; hypoglycemia protocol reviewed with RN; hypoglycemia improved with treatment; continue to monitor Accu-Cheks Last A1c 4.5 (04/29/25), diet controlled Assessment & Plan (05/11/2025 4:42 PM CDT): -hypoglycemia--spontaneous likely secondary to decreased p.o. intake in the context of ESRD; intermittent snacks and encourage 3 meals a day and avoid insulin; hypoglycemia workup ordered; hypoglycemia protocol reviewed with RN; hypoglycemia improved with treatment; continue to monitor Accu-Cheks Last A1c 4.5 (04/29/25), diet controlled Assessment & Plan (05/10/2025 8:50 PM CDT): -Last A1c 4.5 (04/29/25), diet controlled Assessment & Plan (05/09/2025 7:34 PM CDT): -Last A1c 4.5 (04/29/25), diet controlled Assessment & Plan (05/08/2025 7:15 PM CDT): -Last A1c 4.5 (04/29/25), diet controlled Assessment & Plan (05/07/2025 9:11 PM CDT): -Last A1c 4.5 (04/29/25), diet controlled Assessment & Plan (05/06/2025 3:34 PM CDT): -Last A1c 4.5 (04/29/25), diet controlled Assessment & Plan (05/05/2025 12:11 PM CDT): -Last A1c 4.5 (04/29/25), diet controlled Assessment & Plan (05/04/2025 1:17 PM CDT): -Last A1c 4.5 (04/29/25) -No reported home diabetic medications per rehab facility -CTM sugar on daily labs Assessment & Plan (05/03/2025 11:14 AM CDT): -Last A1c 4.5 (04/29/25) -No reported home diabetic medications per rehab facility -CTM sugar on daily labs Assessment & Plan (05/02/2025 1:40 PM CDT): -Last A1c 4.5 (04/29/25) -No reported home diabetic medications per rehab facility -CTM sugar on daily labs Assessment & Plan (05/01/2025 2:51 PM CDT): -Last A1c 4.5 (04/29/25) -No reported home diabetic medications per rehab facility -CTM sugar on daily labs Assessment & Plan (04/30/2025 10:30 AM CDT): -Last A1c 4.5 (04/29/25) -No reported home diabetic medications per rehab facility -CTM sugar on daily labs Assessment & Plan (04/29/2025 3:05 PM CDT): -Last A1c 4.5 (04/29/25) -No reported home diabetic medications per rehab facility -CTM sugar on daily labs Assessment & Plan (04/29/2025 2:57 PM CDT): Pt mentioned she has diabetes but mentioned that she does not take any medication for it. Plan: - monitor basal blood glucose and consider insulin SS if needed Anemia of chronic disease 04/28/2025 Assessment & Plan (05/13/2025 9:27 PM CDT): Admitted with Hgb 6.8 g/dL, normocytic (normal MCV). HB is 7.3 today Differential diagnosis included iron deficiency, B12/folate deficiency, and hemolysis. Ferritin elevated at 1497 with normal iron levels, suggestive of anemia of chronic disease. S/O transfusion with 2 units PRBC. Patient hemodynamically stable. Nursing noted vaginal bleeding; patient is postmenopausal. Gynecology evaluation as noted above PET scan concerning for uterine mass. TVUS performed on 05/07. OBGYN evaluated on 05/06 and attempted bedside endometrial biopsy (EMB), but procedure aborted due to resistance at internal os and patient intolerance to further advancement. Pursue as OP after discussion with the family on 05/08/2025. Discussed with Gynecology service on 05/10/2025; follow up as OP after rehab--appointment scheduled Assessment & Plan (05/12/2025 3:01 PM CDT): Admitted with Hgb 6.8 g/dL, normocytic (normal MCV). HB is 8.5 today Differential diagnosis included iron deficiency, B12/folate deficiency, and hemolysis. Ferritin elevated at 1497 with normal iron levels, suggestive of anemia of chronic disease. S/O transfusion with 2 units PRBC. Patient hemodynamically stable. Nursing noted vaginal bleeding; patient is postmenopausal. PET scan concerning for uterine mass. TVUS performed on 05/07. OBGYN evaluated on 05/06 and attempted bedside endometrial biopsy (EMB), but procedure aborted due to resistance at internal os and patient intolerance to further advancement. Pursue as OP after discussion with the family on 05/08/2025. Discussed with Gynecology service on 05/10/2025; follow up as OP after rehab Assessment & Plan (05/11/2025 4:41 PM CDT): Admitted with Hgb 6.8 g/dL, normocytic (normal MCV). HB is 8.5 today Differential diagnosis included iron deficiency, B12/folate deficiency, and hemolysis. Ferritin elevated at 1497 with normal iron levels, suggestive of anemia of chronic disease. S/O transfusion with 2 units PRBC. Patient hemodynamically stable. Nursing noted vaginal bleeding; patient is postmenopausal. PET scan concerning for uterine mass. TVUS performed on 05/07. OBGYN evaluated on 05/06 and attempted bedside endometrial biopsy (EMB), but procedure aborted due to resistance at internal os and patient intolerance to further advancement. Pursue as OP after discussion with the family on 05/08/2025. Discussed with Gynecology service on 05/10/2025; follow up as OP after rehab Assessment & Plan (05/10/2025 8:50 PM CDT): Admitted with Hgb 6.8 g/dL, normocytic (normal MCV). HB is 8.5 today Differential diagnosis included iron deficiency, B12/folate deficiency, and hemolysis. Ferritin elevated at 1497 with normal iron levels, suggestive of anemia of chronic disease. S/O transfusion with 2 units PRBC. Patient hemodynamically stable. Nursing noted vaginal bleeding; patient is postmenopausal. PET scan concerning for uterine mass. TVUS performed on 05/07. OBGYN evaluated on 05/06 and attempted bedside endometrial biopsy (EMB), but procedure aborted due to resistance at internal os and patient intolerance to further advancement. Pursue as OP after discussion with the family on 05/08/2025. Discussed with Gynecology service on 05/10/2025; follow up as OP after rehab Assessment & Plan (05/09/2025 7:34 PM CDT): Admitted with Hgb 6.8 g/dL, normocytic (normal MCV). HB is 8.5 today Differential diagnosis included iron deficiency, B12/folate deficiency, and hemolysis. Ferritin elevated at 1497 with normal iron levels, suggestive of anemia of chronic disease. S/O transfusion with 2 units PRBC. Patient hemodynamically stable. Nursing noted vaginal bleeding; patient is postmenopausal. PET scan concerning for uterine mass. TVUS performed on 05/07. OBGYN evaluated on 05/06 and attempted bedside endometrial biopsy (EMB), but procedure aborted due to resistance at internal os and patient intolerance to further advancement. Pursue as OP after discussion with the family on 05/08/2025 Assessment & Plan (05/08/2025 8:39 PM CDT): Admitted with Hgb 6.8 g/dL, normocytic (normal MCV). Differential diagnosis included iron deficiency, B12/folate deficiency, and hemolysis. Ferritin elevated at 1497 with normal iron levels, suggestive of anemia of chronic disease. Plan: Transfused 2 units PRBC. Patient hemodynamically stable; continue monitoring with CBC every 24 hours. Nursing noted vaginal bleeding; patient is postmenopausal. PET scan concerning for uterine mass. TVUS performed on 05/07. OBGYN evaluated on 05/06 and attempted bedside endometrial biopsy (EMB), but procedure aborted due to resistance at internal os and patient intolerance to further advancement. Pursue as OP after discussion with the family today Assessment & Plan (05/07/2025 9:11 PM CDT): Admitted with Hgb 6.8 g/dL, normocytic (normal MCV). Differential diagnosis included iron deficiency, B12/folate deficiency, and hemolysis. Ferritin elevated at 1497 with normal iron levels, suggestive of anemia of chronic disease. Plan: Transfused 2 units PRBC. Patient hemodynamically stable; continue monitoring with CBC every 24 hours. Nursing noted vaginal bleeding; patient is postmenopausal. PET scan concerning for uterine mass. TVUS performed on 05/07. OBGYN evaluated on 05/06 and attempted bedside endometrial biopsy (EMB), but procedure aborted due to resistance at internal os and patient intolerance to further advancement. Assessment & Plan (05/06/2025 3:34 PM CDT): Pt has Hgb of 6.8, normal MCV. Deferential diagnosis including iron deficiency, b12, b9, and hemolytic. Ct was negative for bleeding -Ferritin 1497 with normal iron, likely indicated anemia of chronic disease Plan: - two blood units has been transfused - Patient HDS. CTM with q24 CBC - Patient noted to have vaginal bleeding by nursing. Pt is post menopausal. - Obtain TVUS (PET noted c/f uterine mass), OBGYN consulted - tentative plans to evaluate today, poss endometrial biopsy Assessment & Plan (05/05/2025 12:11 PM CDT): Pt has Hgb of 6.8, normal MCV. Deferential diagnosis including iron deficiency, b12, b9, and hemolytic. Ct was negative for bleeding -Ferritin 1497 with normal iron, likely indicated anemia of chronic disease Plan: - two blood units has been transfused - Patient HDS. CTM with q24 CBC - Patient noted to have vaginal bleeding by nursing. Pt is post menopausal. - Obtain TVUS (PET noted c/f uterine mass), will d/w OBGYN once TVUS results or if having significant bleeding Assessment & Plan (05/04/2025 1:17 PM CDT): Pt has Hgb of 6.8, normal MCV. Deferential diagnosis including iron deficiency, b12, b9, and hemolytic. Ct was negative for bleeding -Ferritin 1497 with normal iron, likely indicated anemia of chronic disease Plan: - two blood units has been transfused - Patient HDS. CTM with q24 CBC - Patient noted to have vaginal bleeding by nursing. - Obtain TVUS and OBGYN consulted, no response at this time. Assessment & Plan (05/03/2025 11:14 AM CDT): Pt has Hgb of 6.8, normal MCV. Deferential diagnosis including iron deficiency, b12, b9, and hemolytic. Ct was negative for bleeding -Ferritin 1497 with normal iron, likely indicated anemia of chronic disease Plan: - two blood units has been transfused - Patient HDS. CTM with q24 CBC Assessment & Plan (05/02/2025 1:40 PM CDT): Pt has Hgb of 6.8, normal MCV. Deferential diagnosis including iron deficiency, b12, b9, and hemolytic. Ct was negative for bleeding -Ferritin 1497 with normal iron, likely indicated anemia of chronic disease Plan: - two blood units has been transfused - Patient HDS. CTM with q24 CBC Assessment & Plan (05/01/2025 2:51 PM CDT): Pt has Hgb of 6.8, normal MCV. Deferential diagnosis including iron deficiency, b12, b9, and hemolytic. Ct was negative for bleeding -Ferritin 1497 with normal iron, likely indicated anemia of chronic disease Plan: - two blood units has been transfused - Patient HDS. CTM with q24 CBC Assessment & Plan (04/30/2025 2:47 PM CDT): Pt has Hgb of 6.8, normal MCV. Deferential diagnosis including iron deficiency, b12, b9, and hemolytic. Ct was negative for bleeding -Ferritin 1497 with normal iron, likely indicated anemia of chronic disease Plan: - two blood units has been transfused - Patient HDS. CTM with q24 CBC Assessment & Plan (04/29/2025 3:05 PM CDT): Pt has Hgb of 6.8, normal MCV. Deferential diagnosis including iron deficiency, b12, b9, and hemolytic. Ct was negative for bleeding -Ferritin 1497 with normal iron, likely indicated anemia of chronic disease Plan: - two blood units has been transfused - patient HDS. CTM with q12hr CBC, if stable can go to daily CBCs Assessment & Plan (04/28/2025 9:06 AM CDT): Pt has Hgb of 6,8, normal MCV. Deferential diagnosis including iron deficiency, b12, b9, and hemolytic. Ct was negative for bleeding Plan: - two blood units has been transfused - iron, ferritin, TIBC, b12, b9, haptoglobin, LDH labs ordered Encounters Date Type Department Care Team Description 09/03/2025 Telephone [facility]ALUATION UNIT [address] [place] [address] Bethany Juarez Appointment 08/07/2025 10:15 AM CDT [facility] [address] [place] [phone] Carlitos Hobson MD Secondary hyperparathyroidism (HCC) (Primary Dx) 08/07/2025 Telephone [facility] [address] [place] [phone] Carlitos Hobson MD Question 07/19/2025 Telephone [facility] - ENT [address] [place] [phone] Chandrakant Marcum MD Referral 06/20/2025 9:30 AM CDT Office Visit [facility] - Neurology [address] [place] [phone] Debi Carmen PA-C Cerebrovascular accident (CVA), unspecified mechanism (HCC) (Primary Dx); Uterine mass; Benign essential HTN from Last 3 Months Immunizations Immunization Administration Dates Next Due COVID PFIZER BIVALENT 12Y+ 30mcg/0.3ML 2 Covid Pfizer primary monoval ent 12+ yr 0.3mL Purple cap 02/06/2021,01/09/2021 INFLUENZA VACCINE 2021 INFLUENZA VACCINE, CELL CULT URE, QUADR. (FLUCELVAX QUADRIVALENT; 6MO+) (CCIIV4) 08/19/2022 PNEUMOCOCCAL PCV20 CONJ VAC IM 04/17/2025 TDAP (7yrs+) 04/28/2025 Social History Tobacco Use Types Packs/Day Years Used Date Smoking Tobacco: Never Smokeless Tobacco: Never Tobacco Cessation:Counseling Given: Not Answered Alcohol Use Standard Drinks/Week Comments Not Currently 0 (1 standard drink = 0.6 oz pur e alcohol) AUDIT-C Answer Date Recorded Q1: How often do you have a drink containing alcohol? Never 04/30/2025 Q2: How many drinks containi ng alcohol do you have on a typical day when you are drinking? Patient does not drink Q3: How often do you have si x or more drinks on one occasion? Never 04/30/2025 Overall Financial Resource Strain (CARDIA) Answe r Date Recorded How hard is it for you to pa y for the very basics like food, housing, medical care, and heating? Not hard at all 04/30/2025 [facility] - Occupational Stress Questionnaire Answer Date Recorded Do you feel stress - tense, restless, nervous, or anxious, or unable to sleep at night because your mind is troubled all the time - these days? Not at all 04/30/2025 Hunger Vital Sign Answer Date Recorded Within the past 12 months, y ou worried that your food would run out before you got the money to buy more. Never true 04/30/20 25 Within the past 12 months, t he food you bought just didn't last and you didn't have money to get more. Never true 04/30/2025 PRAPARE - Transportation Answer Date Re corded In the past 12 months, has l ack of transportation kept you from medical appointments or from getting medications? No 04/10 In the past 12 months, has l ack of transportation kept you from meetings, work, or from getting things needed for daily living? No 04/30/2025 Housing Stability Vital Sign Answer Estiven e Recorded In the last 12 months, was t here a time when you were not able to pay the mortgage or rent on time? No 04/30/2025 In the past 12 months, how m any times have you moved where you were living? 0 04/30/2025 At any time in the past 12 m [facility], were you homeless or living in a m[facility] (including now)? No 04/30/2025 Comments Unknown Sex and Gender Information Value Date Recorded Sex Assigned at Not on file Legal Sex Female 9:52 AM CDT Gender Identity Not on file Sexual Orientation Not on file Last Filed Vital Signs Vital Sign Reading Time Taken Comments Blood Pressure 133/82 08/07/2025 10:46 AM CDT Pulse 81 08/07/2025 10:46 AM CDT Temperature 36.5 C (97.7 F) 06/20/2025 10:16 AM CDT Respiratory Rate 16 05/13/2025 5:11 AM CDT Oxygen Saturation 98% 06/20/2025 10:16 AM CDT Inhaled Oxygen Concentration - - Weight 78 kg (172 lb) 08/07/2025 10:46 AM CDT Height 165.1 cm (5' 5) 08/07/2025 10:46 AM CDT Body Mass Index 28.62 08/07/2025 10:46 AM CDT Plan of Treatment Upcoming Encounters Date Type Department Care Team (Late st Contact Info) Description 09/26/2025 1:00 AM 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, [address] [phone] 10/31/2025 1:00 AM VEGETABLE PREPARER Clinical Support [facility] - Cardiology [address] [facility], [address] [phone] 11/21/2025 10:30 AM VEGETABLE PREPARER Office Visit [facility] Neurology [address] [facility], [place] [phone] Debi Carmen PA-C [address] [facility] [address] [place] [phone] 12/05/2025 1:00 AM 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, [address] [phone] 01/09/2026 1:00 AM CDT Clinical Support [facility] [address] [facility], [address] [phone] 02/13/2026 1:00 AM CDT Clinical Support [facility] Card[facility] [address], [facility] [address] [place] [address] 03/20/2026 1:00 AM CDT Clinical Support [facility] - [facility]iology [address] [facility], [facility] [address] [place] [phone] Health Maintenance Due Date Last Done Comments BONE DENSITY TESTING 1959 COLOGUARD (AGES 45-75) - COLON CA SCREENING 1959 COLON MONITORING 1959 COLONOSCOPY - COLON CA SCREENING 1959 CT COLONOGRAPHY - COLON CA SCREENING 1959 Colorectal Cancer Screening 1959 FIT - COLON CA SCREENING 1959 FLEX SIG - COLON CA SCREENING 1959 MAMMOGRAM 1959 MEDICARE AWV 12 MONTHS 1959 HEPATITIS B VACCINE (1 of 3 - Risk Dialysis 4-dose series) 1979 Respiratory Syncytial Virus (RSV) Vaccine Pt: or over 60 yrs (1 - Risk 50-74 years 1-dose series) 2009 ZOSTER VACCINE (1 of 2) 2009 DEPRESSION SCREENING 10/10/2024 DIABETES RETINOPATHY SCREENING 04/29/2025 DIABETES-FOOT EXAM WITH MONOFILAMENT 04/29/2025 COVID-19 VACCINE (4 - 2024-2 6 season) 2025 08/19/2022, 02/06/2021, 01/09/2021 INFLUENZA VACCINE (#1) 2025 , 2021 DIABETES-HGB A1C 10/30/2025 04/29/2025 DTAP/TDAP/TD VACCINES (2 - T d or Tdap) 04/28/2035 04/28/2025 PNEUMOCOCCAL VACCINE 50+ Completed 04/17/2025 HEPATITIS C SCREENING Completed 05/03/2025 Cervical Cancer Screening Discontinued PAP SMEAR Discontinued 05/06/2025 PAP with HPV Discontinued 05/06/2025 HIB VACCINE Aged Out No longer eligi ble based on patient's age to complete this topic HPV VACCINE Aged Out No longer eligi ble based on patient's age to complete this topic MENINGOCOCCAL (Group B) VACCINE SHARED DECISION-MAKING Aged Out No longer eligible based on patient's age to complete this topic MENINGOCOCCAL GROUPS A/C/Y/W VACCINE Aged Out No longer eligible based on patient's age to complete this topic Medical Devices Implanted Type Area Recreation Specialist Device Identifier Shelf Expiration Date Model / Serial / Lot Rcdr Crd Linq Ii Ins - [id number] Implanted:Qty: 1 on 05/10/2025 by Maryann Roa MD at [facility] [employer] [id number] 09/07/2026 [id number] / [id number] / [id number] Procedures Procedure Name Priority Date/Time Associated Diagnosis Comments PAP IMAGE-GUIDED W HPV+CT/NG+TRICH STAT 05/06/2025 3:32 PM CDT Vaginal bleeding Uterine mass HPV PANEL STAT 05/06/2025 3:32 PM CDT Vaginal bleeding Uterine mass HEPATITIS C AB SCREEN RFLX NAAT QUANT Routine 05/03/2025 4:28 PM CDT HEMOGLOBIN A1C Routine 04/29/2025 1:15 AM CDT Type 2 diabetes mellitus with other specified complication, 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) from Last 3 Months or Most Recently Relevant to Health Maintenance Results * PAP IMAGE-GUIDED W HPV+CT/NG+TRICH (05/06/2025 3:32 PM CDT) Case Report Gynecologic Cytology Report Case: [id number] Authorizing Provider: Gary Carballo DO Collected: 05/06/2025 03:32 PM Ordering Location: [address] Received: 05/07/2025 12:40 PM First Screen: Amrit Patino CT(ASCP) Specimen: THINPREP - IMAGE GUIDED, Cervix 05/08/2025 11:10 AM CDT [facility] LMP post menopausal 11:10 AM CDT [facility] Menstrual Status Postmenopausal 04/11 11:10 AM CDT [facility] Specimen Adequacy Satisfactory for evaluation, endocervical/trans formation zone component present. 05/08/2025 11:10 AM CDT [facility] Categorization Negative for intraepithelial lesion or malignancy. 05/08/2025 11:10 AM CDT [facility] Interpretation LAST DIPPER Negative for intraepithelial lesion or malignancy. 05/08/2025 11:10 AM CDT [facility] at 1110 CDT Other Inflammation present. 05/08/2025 11:10 AM CDT [facility] Pap Footnote The Pap Smear is a screening test. False positive and false negative results occur. Negative results do not preclude abnormalities, thus clinical correlation is required. This specimen was evaluated by the [employer] along with an additional manual rescreening by a laundry washer and/or pathologist. 05/08/2025 11:10 AM CDT [facility] Embedded Images 11:10 AM CDT [facility] Pathology/Cytolo gy PART OF UTERINE CERVIX / Unknown 05/06/2025 3:32 PM CDT 05/07/2025 12:40 PM CDT Gary Carballo DO LAB - PATHOLOGY/CYTOLOGY ORDERA BLES Final Result Performing Organization Address City/State/[facility] Co de Phone Number [facility] [address] [phone] * HPV PANEL (05/06/2025 3:32 PM CDT) High Risk HPV 16 NEGATIVE NEGATIVE 05/08/2025 5:32 AM CDT [facility] High Risk HPV 18 NEGATIVE NEGATIVE 05/08/2025 5:32 AM CDT [facility] High Risk HPV Other NEGATIVE NEGATIVE 05/08/2025 5:32 AM CDT [facility] Pathology/Cytolo gy PART OF UTERINE CERVIX / Unknown 05/06/2025 3:32 PM CDT 05/07/2025 2:05 PM CDT Narrative [facility] - 05/08/2025 5:32 AM CDT This test performed by Qualitative real-time Polymerase Chain Reaction (PCR). A negative result does not preclude the presence of HPV infection because results depend on adequate specimen collection, absence of inhibitors and sufficient DNA to be detected. Results should be interpreted in conjunction with other available laboratory and clinical data. This test amplifies DNA of HPV16, HPV18 and twelve other high risk types (31, 33, 35, 39, 45, 51, 52, 56, 58, 59, 66, 68) without differentiation. Gary Carballo DO LAB - MICROBIOLOGY ORDERABLES F inal Result [facility] [address] [place] [address], [facility] [phone] * HEPATITIS C AB SCREEN RFLX NAAT QUANT (05/03/2025 4:28 PM CDT) Pathologist [facility] Hepatitis C Antibody Non-react nancy Non-reac tive 05/03/2025 6:39 PM CDT [facility] Comment:Hepatitis C Antibody screen indicates no serologic evidence of past or current infection with Hepatitis C Virus. Patients with unexplained liver disease who are immunocompromised or suspected of having acute Hepatitis C infection may benefit from Nucleic Acid Test (DUSTIN) for Hepatitis C Viral RNA to confirm Hepatitis C status. Blood BLOOD SPECIMEN / Unknown Lab Venipuncture / Unknown 05/03/2025 4:28 PM CDT 05/03/2025 5:45 PM CDT Ayla Inman MD LAB - CHEMISTRY ORD ERABLES Final Result [facility] [address] [place] [address], [place] [phone] * HEMOGLOBIN A1C (04/29/2025 1:15 AM CDT) Hemoglobin A1c 4.5 <=5.6 % 04/29/2025 8:27 AM CDT [facility] Estimated Average Glucose 82 mg/dL 04/29/2025 8:27 AM CDT [facility] Comment: HbA1c Interpretation: Normal : < 5.7% Pre-diabetes: 5.7-6.4% Diabetes: Equal to or greater than 6.5% Test results diagnostic of diabetes should be repeated for confirmation. Treatment target values recommended by ADA and other clinical organizations should be used to evaluate metabolic control in patients. Reference: [place] Diabetes Association, Standards of Care in Diabetes -2020 In patients 70 years and older consider HbA1c target range of 7.0-7.5% (Reference: Yo Steinberg et al. JAMDA. 2012) The Sebia assay for the measurement of HbA1c is a National Glycohemoglobin Standardization Program (NGSP) certified method. Blood BLOOD SPECIMEN / Unknown Lab Venipuncture / Unknown 04/29/2025 1:15 AM CDT 04/29/2025 1:54 AM CDT Ayla Inman MD LAB - CHEMISTRY ORD ERABLES Final Result [facility] [address] [place] [address], [facility] [phone] from Last 3 Months or Most Recently Relevant to Health Maintenance Insurance MEDICARE Advance Directives * LIMITED RESUSCITATION-PRIOR AND AFTER ARREST (Latest Code Status on File) Date Activated Date Inactivated Comments 04/28/2025 6:24 AM 05/13/2025 6:07 PM Question Answer Comments Limited Resuscitation: No Chest Compress ionNo Intubation, No Invasive Ventilation Care Teams Shank Sorter Relationship Specialty Start Date End Date Monster Garza MD [address] [address] PCP - General 12/30/20
--- OUTSIDE RECORDS SUMMARY | 2025-09-10 14:06 | XMS_ITS | Clinical Summary ---
Author Organization [facility] [address] [place] [address] Care Team Providers Care Telegraph Operator Name Role Phone Monster Garza MD [...] limited to bleeding, infection, nerve injury, stroke, MD, communicated the patient with full understanding. She wished to proceed Encounters Date Type Department Care Team Description 2025 3:38 PM AIRPLANE PILOT CHIEF - 2025 11:59 PM AIRPLANE PILOT CHIEF Hospital Encounter [address] [address] Discharge Disposition: Discharge to home or self care 07/19/2025 Telephone [facility] [address] [facility] [address] [place] [address] [place] [address] Gurwinder Centeno MD PhD 07/18/2025 Telephone [facility] [address] [facility] [address]th [place] [address] [place] [address] Gurwinder Centeno MD PhD from Last 3 Months Surgical History Surgery Date Site/Laterality Comments MASTECTOMY 10/10/2003 - 10/09/2004 Right OTHER SURGICAL HISTORY 08/10/2023 - 2023 Removal RIJ permacath OTHER SURGICAL HISTORY RIJ permacath placement Medical History Medical History Date Comments Breast cancer (HCC) 2003 Right Diabetes mellitus Hypertension Chronic kidney disease (CKD) , stage V (HCC) 07/11/2024 Not yet on dialysis. GERD (gastroesophageal reflux disease) Type 2 diabetes mellitus Per pt states is controlled, and takes no [...] Last Done Comments Breast Cancer Screening-Mammogram 1959 Colon Cancer Screening-Colonoscopy 1959 Depression Screening 1959 Hepatitis C Screening 1959 Osteoporosis Screening-Bone Density Scan 1959 DTaP/Tdap/Td Vaccine (1 - Tdap) 1970 Hepatitis B Screening 1977 Pneumococcal vaccine 65+ (1 of 1 - PCV) 2009 Zoster Vaccine (1 of 2) 2009 Well Visit 65+ 2024 Covid-19 Vaccine ( season) 2025 08/19/2022, 02/06/2021, 01/09/2021 Influenza Vaccine (#1) 2025 08/19/2022, 2012 Fall Risk Assessment 07/11/2025 07/11/2024 Procedures Procedure Name Priority Date/Time Associated Diagnosis Comments EGFR Routine 2025 1:39 PM AIRPLANE PILOT CHIEF DIFFERENTIAL AUTO Routine 2025 1:3 9 PM AIRPLANE PILOT CHIEF CBC WITH AUTO DIFFERENTIAL Routine 2025 1:39 PM AIRPLANE PILOT CHIEF COMPREHENSIVE METABOLIC PANEL Routine 2025 1:39 PM AIRPLANE PILOT CHIEF from Last 3 Months Results * (ABNORMAL) eGFR (2025 1:39 PM AIRPLANE PILOT CHIEF) [facility] Signature eGFR 4(L) >=60 mL/min/1. 73 m2 Comment: [...] last reviewed 2021. Blood 2025 1:39 PM AIRPLANE PILOT CHIEF 2025 4:54 PM AIRPLANE PILOT CHIEF us Caitie Srinivasan Castro DO LAB BLOOD ORDERABLES F inal Result [facility] [address] [address] [place] [address] * (ABNORMAL) Differential, auto (2025 1:39 PM AIRPLANE PILOT CHIEF) Neutrophil abs 5.75 1.50 - 6.50 K/cumm Imm gran abs 0.03 0.00 - 0.10 K/cumm [facility] Lymphocyte abs 2.12 0.80 - 3.30 K/cumm [facility] Monocyte abs 0.90(H) 0.20 - 0.80 K/cumm [facility] Eosinophil abs 0.55(H) 0.00 - 0.50 K/cumm [facility] Basophil abs 0.08 0.00 - 0.10 K/cumm [facility] Neutrophil pct 61.1 % [facility] Comment: Interpretive Data Percent cell count reference ranges are not reported, since discordance with absolute values may lead to misinterpretation of CBC data. Current Interpretive Data was last revised on 2018. Imm gran pct 0.3 % [facility] Comment: Interpretive Data Percent cell count reference ranges are not reported, since discordance with absolute values may lead to misinterpretation of CBC data. Current Interpretive Data was last revised on 2018. Lymphocyte pct 22.5 % [facility] Comment: Interpretive Data Percent cell count reference ranges are not reported, since discordance with absolute values may lead to misinterpretation of CBC data. Current Interpretive Data was last revised on 2018. Monocyte pct 9.5 % [facility] Comment: Interpretive Data Percent cell count reference ranges are not reported, since discordance with absolute values may lead to misinterpretation of CBC data. Current Interpretive Data was last revised on 2018. Eosinophil pct 5.8 % [facility] Comment: Interpretive Data Percent cell count reference ranges are not reported, since discordance with absolute values may lead to misinterpretation of CBC data. Current Interpretive Data was last revised on 2018. Basophil pct 0.8 % [facility] Comment: Interpretive Data Percent cell count reference ranges are not reported, since discordance with absolute values may lead to misinterpretation of CBC data. Current Interpretive Data was last revised on 2018. Blood 2025 1:39 PM AIRPLANE PILOT CHIEF 2025 4:54 PM AIRPLANE PILOT CHIEF us Caitie Castro DO LAB BLOOD ORDERABLES F inal Result [facility] [address] [place] [address] * (ABNORMAL) CBC with auto differential (2025 1:39 PM AIRPLANE PILOT CHIEF) WBC 9.43 3.80 - 9.90 K/cumm Hgb 12.2 11.9 - 15.5 g/dL [facility] Hct 39.6 35.6 - 45.5 % [facility] Plt 369 150 - 400 K/cumm [facility] MPV 10.0 9.1 - 12.3 fL [facility] RBC 4.24 3.90 - 5.20 M/cumm [facility] MCV 93.4 81.3 - 96.4 fL [facility] MCH 28.8 27.1 - 33.3 pg [facility] MCHC 30.8(L) 32.3 - 35.7 g/dL [facility] RDW CV 15.5(H) 11.1 - 14.9 % [facility] RDW SD 52.5(H) 35.7 - 48.1 fL [facility] NRBC abs 0.00 0.00 - 0.01 K/cumm [facility] Blood 2025 1:39 PM AIRPLANE PILOT CHIEF 2025 4:54 PM AIRPLANE PILOT CHIEF us Caitie Castro DO LAB BLOOD ORDERABLES F inal Result [facility] [address] [place] [address] * (ABNORMAL) Comprehensive metabolic panel (2025 1:39 PM AIRPLANE PILOT CHIEF) Sodium 141 135 - 145 mmol/L Potassium, pl 5.2(H) 3.3 - 4.9 mmol/L [facility] Chloride 95(L) 97 - 110 mmol/L [facility] CO2 25 22 - 32 mmol/L [facility] Anion gap 21(H) 2 - 15 mmol/L [facility] BUN 63(H) 6 - 25 mg/dL [facility] Creatinine 8.93(H) 0.60 - 1.10 mg/dL [facility] Glucose 94 70 - 199 mg/dL [facility] Comment: Interpretive Data Fasting glucose >/= 126 [...] classification and Diagnosis of Diabetes Diabetes Care 202; 46: S19-S40. Current interpretive data was last [...] Units/L [facility] Blood 2025 1:39 PM AIRPLANE PILOT CHIEF 2025 4:54 PM AIRPLANE PILOT CHIEF us Caitie Srinivasan Castro DO LAB BLOOD ORDERABLES F inal Result [facility] [address] [place] [address] from Last 3 Months Insurance MEDICARE Care Teams Telegraph Operator Relationship Specialty Start Date End Date Monster Garza MD PCP - General Family Medicine 12/16/23
--- OUTSIDE RECORDS SUMMARY | 2025-09-10 14:06 | XMS_ITS | Clinical Summary ---
Author Organization [facility] Care Team Providers Care Corporate Planner Name Role Phone Unavailable Primary Care Provider Unavailabl e Social History Tobacco Use Types Packs/Day Years Used Date Smoking Tobacco: Never Assessed Comments Unknown Sex and Gender Information Value Date Recorded Sex Assigned at Not on file Legal Sex Female 3:08 PM ONLINE PROJECT MANAGER Gender Identity Not on file Sexual Orientation Not on file Plan of Treatment Health Maintenance Due Date Last Done Comments Hepatitis C Virus (HCV) Screening 1959 TdaP Immunization 1959 Pap Smear 1980 Cervical Cancer Screening (CCS) 1989 HPV/Cotest 1989 Cologuard 2004 Colonoscopy 2004 Colorectal Cancer Screening 2004 Immunochemical Fecal Occult Blood 2004 Pneumococcal Immunization (5 0+ years) (1 of 1 - PCV) 2009 Zoster Immunization (1 of 2) 2009 Influenza Immunization (#1) 2025 SARS-COV-2 Immunization ( season) 2025 02/06/2021, 01/09/2021 Respiratory Syncytial Virus (RSV) Immunization (Adult) (1 - 1-dose 75+ series) 2034 Hepatitis B Immunization Aged Out No longer eligible based on patient's age to complete this topic Human Papillomavirus (HPV) Immunization Aged Out No longer eligible b ased on patient's age to complete this topic Meningococcal Immunization (ACWY) Aged Out No longer eligible b ased on patient's age to complete this topic Rotavirus Immunization Aged Out No lo nger eligible based on patient's age to complete this topic
--- OUTSIDE RECORDS SUMMARY | 2025-09-10 14:07 | XMS_ITS | Clinical Summary ---
Author Organization [facility] Address [address] [place] [phone] Phone Care Team Providers Care Silver Recovery Operator Name Role Phone Monster Rocha MD Primary Care Provider [phone] Allergies No known active allergies Medications metFORMIN [...] PCV) 2009 Influenza Vaccine (#1) 2025 Insurance [facility] Care Teams Silver Recovery Operator Relationship Specialty Start Date End Date Monster Rocha MD [address] [address] PCP - General Family Medicine 08/19/20
--- OUTSIDE RECORDS SUMMARY | 2025-09-10 14:07 | XMS_ITS ---
Author Organization [facility] Address [address] [place] [address] Care Team Providers Care Senior Management Consultant Name Role Phone Monster Garza MD Primary Care Provider + Active Problems Problem Noted Date Diagnosed Date [...] in right frontoparietal lobes (R MCA). Multiple hivgt-dm-nzyczghs small infarcts in left centrum semiovale and shin radiata (embolic pattern). CTA Head/Neck: Multifocal, severe intracranial arterial stenoses involving bilateral anterior, middle, posterior cerebral arteries and vertebrobasilar system. Concern for PSYCHIATRIC RN vasculitis--LP and CSF studies not consistent; Rheumatology [...] in right frontoparietal lobes (R MCA). Multiple uaufn-xe-uesxoydz small infarcts in left centrum semiovale and shin radiata (embolic pattern). CTA Head/Neck: Multifocal, severe intracranial arterial stenoses involving bilateral anterior, middle, posterior cerebral arteries and vertebrobasilar system. Concern for PSYCHIATRIC RN vasculitis--LP and CSF studies not consistent; Rheumatology [...] in right frontoparietal lobes (R MCA). Multiple cqcjz-yx-rabugvoj small infarcts in left centrum semiovale and shin radiata (embolic pattern). CTA Head/Neck: Multifocal, severe intracranial arterial stenoses involving bilateral anterior, middle, posterior cerebral arteries and vertebrobasilar system. Concern for PSYCHIATRIC RN vasculitis--LP and CSF studies not consistent; Rheumatology [...] in right frontoparietal lobes (R MCA). Multiple babgb-dn-egagzbmx small infarcts in left centrum semiovale and shin radiata (embolic pattern). CTA Head/Neck: Multifocal, severe intracranial arterial stenoses involving bilateral anterior, middle, posterior cerebral arteries and vertebrobasilar system. Concern for PSYCHIATRIC RN vasculitis--LP and CSF studies not consistent; Rheumatology [...] restricted diffusion concerning for acute infarction. -Multiple cdegn-co-zjejferw small infarcts scattered in the left centrum [...] entire basilar artery. There was concern for PSYCHIATRIC RN vasculitis, however LP CSF studies are not [...] restricted diffusion concerning for acute infarction. -Multiple jcsnh-aa-fvrsenpr small infarcts scattered in the left centrum [...] entire basilar artery. There was concern for PSYCHIATRIC RN vasculitis, however LP CSF studies. Rheumatology evaluated [...] in right frontoparietal lobes (R MCA). Multiple rbxvj-hh-yefljbna small infarcts in left centrum semiovale and shin radiata (embolic pattern). CTA Head/Neck: Multifocal, severe intracranial arterial stenoses involving bilateral anterior, middle, posterior cerebral arteries and vertebrobasilar system. Concern for PSYCHIATRIC RN vasculitis--LP and CSF studies not consistent; Rheumatology [...] in right frontoparietal lobes (R MCA). Multiple xiorm-if-qllfhemb small infarcts in left centrum semiovale and shin radiata (embolic pattern). CTA Head/Neck: Multifocal, severe intracranial arterial stenoses involving bilateral anterior, middle, posterior cerebral arteries and vertebrobasilar system. Concern for PSYCHIATRIC RN vasculitis--LP and CSF studies not consistent; Rheumatology [...] in right frontoparietal lobes (R MCA). Multiple mubcv-ek-xajvcocd small infarcts in left centrum semiovale and shin radiata (embolic pattern). CTA Head/Neck: Multifocal, severe intracranial arterial stenoses involving bilateral anterior, middle, posterior cerebral arteries and vertebrobasilar system. Concern for PSYCHIATRIC RN vasculitis--LP and CSF studies not consistent; Rheumatology [...] in right frontoparietal lobes (R MCA). Multiple cknrf-vo-nbllspot small infarcts in left centrum semiovale and shin radiata (embolic pattern). CTA Head/Neck: Multifocal, severe intracranial arterial stenoses involving bilateral anterior, middle, posterior cerebral arteries and vertebrobasilar system. Concern for PSYCHIATRIC RN vasculitis--LP and CSF studies not consistent; Rheumatology [...] restricted diffusion concerning for acute infarction. -Multiple suajy-ac-tyfcfmsy small infarcts scattered in the left centrum [...] entire basilar artery. There was concern for PSYCHIATRIC RN vasculitis, however LP CSF studies are not [...] restricted diffusion concerning for acute infarction. -Multiple xuixx-fm-zyuhtbbt small infarcts scattered in the left centrum [...] entire basilar artery. There was concern for PSYCHIATRIC RN vasculitis, however LP CSF studies. Rheumatology evaluated [...] in right frontoparietal lobes (R MCA). Multiple upmet-sp-yqabhgbz small infarcts in left centrum semiovale and shin radiata (embolic pattern). CTA Head/Neck: Multifocal, severe intracranial arterial stenoses involving bilateral anterior, middle, posterior cerebral arteries and vertebrobasilar system. Concern for PSYCHIATRIC RN vasculitis--LP and CSF studies not consistent; Rheumatology [...] in right frontoparietal lobes (R MCA). Multiple eueks-vl-tbsejrsp small infarcts in left centrum semiovale and shin radiata (embolic pattern). CTA Head/Neck: Multifocal, severe intracranial arterial stenoses involving bilateral anterior, middle, posterior cerebral arteries and vertebrobasilar system. Concern for PSYCHIATRIC RN vasculitis--LP and CSF studies not consistent; Rheumatology [...] in right frontoparietal lobes (R MCA). Multiple hdpco-vy-rqqsyyzg small infarcts in left centrum semiovale and shin radiata (embolic pattern). CTA Head/Neck: Multifocal, severe intracranial arterial stenoses involving bilateral anterior, middle, posterior cerebral arteries and vertebrobasilar system. Concern for PSYCHIATRIC RN vasculitis--LP and CSF studies not consistent; Rheumatology [...] in right frontoparietal lobes (R MCA). Multiple ezmyd-in-scdzobyr small infarcts in left centrum semiovale and shin radiata (embolic pattern). CTA Head/Neck: Multifocal, severe intracranial arterial stenoses involving bilateral anterior, middle, posterior cerebral arteries and vertebrobasilar system. Concern for PSYCHIATRIC RN vasculitis--LP and CSF studies not consistent; Rheumatology [...] restricted diffusion concerning for acute infarction. -Multiple chxoo-yb-mkspnrer small infarcts scattered in the left centrum [...] entire basilar artery. There was concern for PSYCHIATRIC RN vasculitis, however LP CSF studies are not [...] restricted diffusion concerning for acute infarction. -Multiple ezjob-al-rtsdkafh small infarcts scattered in the left centrum [...] entire basilar artery. There was concern for PSYCHIATRIC RN vasculitis, however LP CSF studies. Rheumatology evaluated [...] -Continue home cinacalcet -Start on vitamin D 87712 units q7 days for 6 weeks. -Sestamibi [...] -Continue home cinacalcet -Start on vitamin D 10351 units q7 days for 6 weeks. -Sestamibi [...] -Continue home cinacalcet -Start on vitamin D 40840 units q7 days for 6 weeks. -Sestamibi [...] -Continue home cinacalcet -Start on vitamin D 34416 units q7 days for 6 weeks. -Sestamibi [...] -Continue home cinacalcet -Start on vitamin D 63158 units q7 days for 6 weeks. -Sestamibi [...] -Continue home cinacalcet -Start on vitamin D 42309 units q7 days for 6 weeks. -Sestamibi [...] in right frontoparietal lobes (R MCA). Multiple xgqkv-hd-dywsydan small infarcts in left centrum semiovale and shin radiata (embolic pattern). CTA Head/Neck: Multifocal, severe intracranial arterial stenoses involving bilateral anterior, middle, posterior cerebral arteries and vertebrobasilar system. Concern for PSYCHIATRIC RN vasculitis--LP and CSF studies not consistent; Rheumatology [...] in right frontoparietal lobes (R MCA). Multiple fpbfy-pq-iorjznyf small infarcts in left centrum semiovale and shin radiata (embolic pattern). CTA Head/Neck: Multifocal, severe intracranial arterial stenoses involving bilateral anterior, middle, posterior cerebral arteries and vertebrobasilar system. Concern for PSYCHIATRIC RN vasculitis--LP and CSF studies not consistent; Rheumatology [...] in right frontoparietal lobes (R MCA). Multiple kmnuk-vs-etdswbyo small infarcts in left centrum semiovale and shin radiata (embolic pattern). CTA Head/Neck: Multifocal, severe intracranial arterial stenoses involving bilateral anterior, middle, posterior cerebral arteries and vertebrobasilar system. Concern for PSYCHIATRIC RN vasculitis--LP and CSF studies not consistent; Rheumatology [...] in right frontoparietal lobes (R MCA). Multiple ummmi-mg-qldsgalp small infarcts in left centrum semiovale and shin radiata (embolic pattern). CTA Head/Neck: Multifocal, severe intracranial arterial stenoses involving bilateral anterior, middle, posterior cerebral arteries and vertebrobasilar system. Concern for PSYCHIATRIC RN vasculitis--LP and CSF studies not consistent; Rheumatology [...] restricted diffusion concerning for acute infarction. -Multiple lqizx-ng-cowuthck small infarcts scattered in the left centrum [...] entire basilar artery. There was concern for PSYCHIATRIC RN vasculitis, however LP CSF studies are not [...] restricted diffusion concerning for acute infarction. -Multiple yalit-ph-zxcimavw small infarcts scattered in the left centrum [...] entire basilar artery. There was concern for PSYCHIATRIC RN vasculitis, however LP CSF studies. Rheumatology evaluated [...] restricted diffusion concerning for acute infarction. -Multiple gvpsl-xq-fuzhkenw small infarcts scattered in the left centrum [...] and entire basilar artery. 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 Additional Studies / Interventions: TTE: EF 55%, no intracardiac shunt. LEX negative; ANCA <1:20, PR3 = 0, MPO = 0. LP performed by Neuroradiology on 05/07; CSF studies pending. NSGY consulted for possible brain mass--no discrete lesion on MRI; no indication for biopsy. Records requested from [facility]; no relevant data received. Plan: Resume [...] the entire basilar artery. Concern for potential PSYCHIATRIC RN vasculitis. Plan: -Obtained records from [facility], no relevant materials were provided unfortunately. [...] the entire basilar artery. Concern for potential PSYCHIATRIC RN vasculitis. Plan: -Obtained records from [facility], no relevant materials were provided unfortunately. [...] the entire basilar artery. Concern for potential PSYCHIATRIC RN vasculitis. Plan: -Obtained records from [facility], no relevant materials were provided unfortunately. [...] the entire basilar artery. Concern for potential PSYCHIATRIC RN vasculitis. Plan: -Obtained records from [facility], no relevant materials were provided unfortunately. [...] the entire basilar artery. Concern for potential PSYCHIATRIC RN vasculitis. Plan: -Obtained records from [facility], no relevant materials were provided unfortunately. [...] in right frontoparietal lobes (R MCA). Multiple whtcw-wf-mytlfmoh small infarcts in left centrum semiovale and shin radiata (embolic pattern). CTA Head/Neck: Multifocal, severe intracranial arterial stenoses involving bilateral anterior, middle, posterior cerebral arteries and vertebrobasilar system. Concern for PSYCHIATRIC RN vasculitis--LP and CSF studies not consistent; Rheumatology [...] in right frontoparietal lobes (R MCA). Multiple uigkk-wa-okbiozaf small infarcts in left centrum semiovale and shin radiata (embolic pattern). CTA Head/Neck: Multifocal, severe intracranial arterial stenoses involving bilateral anterior, middle, posterior cerebral arteries and vertebrobasilar system. Concern for PSYCHIATRIC RN vasculitis--LP and CSF studies not consistent; Rheumatology [...] in right frontoparietal lobes (R MCA). Multiple aqqys-ce-oygnecka small infarcts in left centrum semiovale and shin radiata (embolic pattern). CTA Head/Neck: Multifocal, severe intracranial arterial stenoses involving bilateral anterior, middle, posterior cerebral arteries and vertebrobasilar system. Concern for PSYCHIATRIC RN vasculitis--LP and CSF studies not consistent; Rheumatology [...] in right frontoparietal lobes (R MCA). Multiple ovlmy-kw-kdqhfzcu small infarcts in left centrum semiovale and shin radiata (embolic pattern). CTA Head/Neck: Multifocal, severe intracranial arterial stenoses involving bilateral anterior, middle, posterior cerebral arteries and vertebrobasilar system. Concern for PSYCHIATRIC RN vasculitis--LP and CSF studies not consistent; Rheumatology [...] restricted diffusion concerning for acute infarction. -Multiple cnewh-ah-cglcpduk small infarcts scattered in the left centrum [...] entire basilar artery. There was concern for PSYCHIATRIC RN vasculitis, however LP CSF studies are not [...] restricted diffusion concerning for acute infarction. -Multiple drttk-li-mexhxirr small infarcts scattered in the left centrum [...] entire basilar artery. There was concern for PSYCHIATRIC RN vasculitis, however LP CSF studies. Rheumatology evaluated [...] restricted diffusion concerning for acute infarction. -Multiple xhnlq-xy-ezsijese small infarcts scattered in the left centrum [...] and entire basilar artery. 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 Additional Studies / Interventions: TTE: EF 55%, no intracardiac shunt. LEX negative; ANCA <1:20, PR3 = 0, MPO = 0. LP performed by Neuroradiology on 05/07; CSF studies pending. NSGY consulted for possible brain mass--no discrete lesion on MRI; no indication for biopsy. Records requested from [facility]; no relevant data received. Plan: Resume [...] the entire basilar artery. Concern for potential PSYCHIATRIC RN vasculitis. Plan: -Obtained records from [facility], no relevant materials were provided unfortunately. [...] the entire basilar artery. Concern for potential PSYCHIATRIC RN vasculitis. Plan: -Obtained records from [facility], no relevant materials were provided unfortunately. [...] the entire basilar artery. Concern for potential PSYCHIATRIC RN vasculitis. Plan: -Obtained records from [facility], no relevant materials were provided unfortunately. [...] the entire basilar artery. Concern for potential PSYCHIATRIC RN vasculitis. Plan: -Obtained records from [facility], no relevant materials were provided unfortunately. -Will have [facility] discussion with patient and POA this PM. [...] the entire basilar artery. Concern for potential PSYCHIATRIC RN vasculitis. Plan: -Obtained records from [facility], no relevant materials were provided unfortunately. [...] Plan: -Will attempt to obtain records from [facility] to further clarify patient's breast cancer [...] 75 mg daily for potential LP on 7/24 -Continue atorvastatin 40 mg daily Assessment & [...] -Continue home cinacalcet -Start on vitamin D 42044 units q7 days for 6 weeks. Assessment [...] axial + appendicular skeleton-- ordered MRI brain o contrast tumor protocol and consider PET/CT scan for further evaluation >Will attempt to obtain records from [facility] to further clarify patient's breast cancer [...] restricted diffusion concerning for acute infarction. -Multiple mmsez-yx-ivphfmeh small infarcts scattered in the left centrum [...] and entire basilar artery. 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 Additional Studies / Interventions: TTE: EF 55%, no intracardiac shunt. LEX negative; ANCA <1:20, PR3 = 0, MPO = 0. LP performed by Neuroradiology on 05/07; CSF studies pending. NSGY consulted for possible brain mass--no discrete lesion on MRI; no indication for biopsy. Records requested from [facility]; no relevant data received. Plan: Resume [...] the entire basilar artery. Concern for potential PSYCHIATRIC RN vasculitis. Plan: -Obtained records from [facility], no relevant materials were provided unfortunately. [...] the entire basilar artery. Concern for potential PSYCHIATRIC RN vasculitis. Plan: -Obtained records from [facility], no relevant materials were provided unfortunately. [...] the entire basilar artery. Concern for potential PSYCHIATRIC RN vasculitis. Plan: -Obtained records from [facility], no relevant materials were provided unfortunately. [...] the entire basilar artery. Concern for potential PSYCHIATRIC RN vasculitis. Plan: -Obtained records from [facility], no relevant materials were provided unfortunately. -Will have [facility] discussion with patient and POA this PM. [...] the entire basilar artery. Concern for potential PSYCHIATRIC RN vasculitis. Plan: -Obtained records from [facility], no relevant materials were provided unfortunately. -Will have [facility] discussion with patient and POA this PM. [...] -Continue home cinacalcet -Start on vitamin D 91436 units q7 days for 6 weeks. Assessment [...] restricted diffusion concerning for acute infarction. -Multiple hnmpw-nj-qzwiguca small infarcts scattered in the left centrum [...] and entire basilar artery. 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 Additional Studies / Interventions: TTE: EF 55%, no intracardiac shunt. LEX negative; ANCA <1:20, PR3 = 0, MPO = 0. LP performed by Neuroradiology on 05/07; CSF studies pending. NSGY consulted for possible brain mass--no discrete lesion on MRI; no indication for biopsy. Records requested from [facility]; no relevant data received. Plan: Resume [...] the entire basilar artery. Concern for potential PSYCHIATRIC RN vasculitis. Plan: -Obtained records from [facility], no relevant materials were provided unfortunately. [...] the entire basilar artery. Concern for potential PSYCHIATRIC RN vasculitis. Plan: -Obtained records from [facility], no relevant materials were provided unfortunately. [...] the L centrum semiovale and the L hsin radiata. Concerning for embolic stroke -Concern for [...] the entire basilar artery. Concern for potential PSYCHIATRIC RN vasculitis. Plan: -Obtained records from [facility], no relevant materials were provided unfortunately. [...] the entire basilar artery. Concern for potential PSYCHIATRIC RN vasculitis. Plan: -Obtained records from [facility], no relevant materials were provided unfortunately. [...] the entire basilar artery. Concern for potential PSYCHIATRIC RN vasculitis. Plan: -Obtained records from [facility], no relevant materials were provided unfortunately. -Will have [facility] discussion with patient and POA this PM. [...] -Continue home cinacalcet -Start on vitamin D 56290 units q7 days for 6 weeks. Assessment [...] -Continue home cinacalcet -Start on vitamin D 72726 units q7 days for 6 weeks. -Sestamibi [...] -Continue home cinacalcet -Start on vitamin D 49671 units q7 days for 6 weeks. -Sestamibi [...] -Continue home cinacalcet -Start on vitamin D 91028 units q7 days for 6 weeks. -Sestamibi [...] -Continue home cinacalcet -Start on vitamin D 61786 units q7 days for 6 weeks. -Sestamibi [...] -Continue home cinacalcet -Start on vitamin D 25816 units q7 days for 6 weeks. -Sestamibi [...] -Continue home cinacalcet -Start on vitamin D 25310 units q7 days for 6 weeks. -Sestamibi [...] 1633.6 and TSH level 1.328 -CT CAP 7/20/25: 1.7 cm discrete nodule posterior to the [...] -Continue home cinacalcet -Start on vitamin D 12311 units q7 days for 6 weeks. Assessment [...] -Continue home cinacalcet -Start on vitamin D 58165 units q7 days for 6 weeks. -Sestamibi [...] -Continue home cinacalcet -Start on vitamin D 53430 units q7 days for 6 weeks. -Sestamibi [...] -Continue home cinacalcet -Start on vitamin D 85088 units q7 days for 6 weeks. -Sestamibi [...] -Continue home cinacalcet -Start on vitamin D 85244 units q7 days for 6 weeks. -Sestamibi [...] -Continue home cinacalcet -Start on vitamin D 59302 units q7 days for 6 weeks. -Sestamibi [...] -Continue home cinacalcet -Start on vitamin D 31434 units q7 days for 6 weeks. -Sestamibi [...] -Continue home cinacalcet -Start on vitamin D 15532 units q7 days for 6 weeks. Assessment [...] Assessment & Plan (05/04/2025 1:17 PM CDT): [facility] Quick Recap - Optional: [...] Assessment & Plan (05/03/2025 11:14 AM CDT): [facility] Quick Recap - Optional: Managed by nephrology [...] Assessment & Plan (05/02/2025 1:40 PM CDT): [facility] Quick Recap - Optional: Managed by nephrology [...] Assessment & Plan (05/01/2025 2:51 PM CDT): [facility] Quick Recap - Optional: Managed by nephrology [...] Assessment & Plan (04/30/2025 11:34 AM CDT): [facility] Quick Recap - Optional: Managed by nephrology [...] Assessment & Plan (04/29/2025 3:05 PM CDT): [facility] Quick Recap - Optional: Managed by nephrology [...] Assessment & Plan (04/29/2025 2:52 PM CDT): [facility] Quick Recap - Optional: Managed by nephrology [...] TIBC, b12, b9, haptoglobin, LDH labs ordered Current Treatment and Therapy Plans No current plan information found. Past Treatment and Therapy Plans No past plan information found. Lifetime Dose Tracking * Chemical Lifetime Dose Automatic Entry Manual Entr y Dose Length Product 583 mGy-cm 583 mGy-cm 0 mGy-cm
--- OUTSIDE RECORDS SUMMARY | 2025-09-10 14:07 | XMS_ITS ---
Author Organization [facility] ([facility]) Address [address] [place] [id number] Care Team Providers Care Title I Assistant Name Role Phone Unavailable Unavailable Unavailable Allergies, Adverse Reactions, Alerts Allergy Name Allergy Type Status Severity Reaction(s) Onset Date Inactive Date Treating Clinician Comments Niacin Allergy Active Sensitivity 2023-04 20:31:1 7 Medications Ordered Medication Name Filled Medication Name Start Date Stop Date Current Medication? Ordering Clinician Indication Dosage Frequency Signature (SIG) Comments Components Mircera 2024-10 06:00: 00 Yes [id number] Number of Repeats Allowed: Frequency: MARCO dosing, every two weeks calcitriol 2024-10 01:18: 17 Yes [id number] Number of Repeats Allowed: Frequency: Three times a week Normal Saline Solution 0.9% NaCl 2024-10 0 21:09: 19 Yes [id number] Number of Repeats Allowed: Frequency: As needed ONS [facility] 2024-10 0 05:00: 00 Yes [id number] Number of Repeats Allowed: Frequency: Every Dialysis Treatment Venofer 07-04 05:00: 00 Yes [id number] Number of Repeats Allowed: Frequency: One time a weekDosesO rdered: Maintenanc e Dose 50 Milligram Route: Intravenou s heparin sodium, porcine 05-01 19:33: 08 Yes [id number] Number of Repeats Allowed: Frequency: Every Dialysis TreatmentD osesOrdere d: Hourly Dose 500 Units/Hr 1:1000 Units/mLRo nome: Intravenou s Oxygen 04-10 20:03: 16 Yes [id number] Number of Repeats Allowed: Frequency: As needed ondansetron hydrochlori de 04-10 20:02: 56 Yes [id number] Number of Repeats Allowed: Frequency: Every 4 hours as needed Insta-Gluco se 04-10 20:02: 26 Yes [id number] Number of Repeats Allowed: Frequency: Every 30 minutes as needed diphenhydra mine hydrochlori de 04-10 20:01: 27 Yes [id number] Number of Repeats Allowed: Frequency: Every 30 minutes as needed Antacid Extra Strength 04-10 19:49: 53 Yes [id number] Number of Repeats Allowed: Frequency: Every 4 hours as needed acetaminoph en 04-10 19:49: 20 Yes [id number] Number of Repeats Allowed: Frequency: Every 4 hours as needed heparin sodium, porcine 04-10 19:48: 04 Yes [id number] Number of Repeats Allowed: Frequency: Every Dialysis TreatmentD osesOrdere d: Loading Dose 1000 Units 1:1000 Units/mLRo nome: Intravenou s Problems This patient has no [...] Gain BFR DFR Actual [facility]F Dialysis Access Decem 2024 In-Ce nter Hemod ialys is Treat ment 2025-09-09 T18:51:14. 000Z 2025-09-09 T22:20:49. 000Z BP Sitting (Pre-Dialysis) 175/94 mmHg BP Sitting (Post-D ialysis ) 192/ 102 mmHg Sitting Heart Rate Pre-Dialysis 84 BPM Sitting H eart Rate Post-Dialysis 82 BPM Temperature Pre-Dialysis 97.6 degF Temperature Post -Dialysis 98 degF September 06, 2025 In-Center Hemodialysis Treatment 6879-38-23D20:22:53.000Z 0339-56-92A33:48:43.000Z BP Sitting (Pre-Dialysis) 168/89 mmHg BP Sitting (Post-Dialysis) 165/96 mmHg Concurrent Access: falseCentral Venous Catheter (CVC) Chest (Right) Arterial Sitting Heart Rate Pre-Dialysis 81 BPM Sitting H eart Rate Post-Dialysis 89 BPM Temperature Pre-Dialysis 97.3 degF Temperature Post -Dialysis 98.2 degF September 04, 2025 In-Center Hemodialysis Treatment 8871-12-41V48:41:25.000Z 5136-29-72N79:23:05.000Z BP Sitting (Pre-Dialysis) 174/101 mmHg BP Sitting (Post-Dialysis) 197/104 mmHg Concurrent Access: falseCentral Venous Catheter (CVC) Chest (Right) Arterial Sitting Heart Rate Pre-Dialysis 78 BPM Sitting H eart Rate Post-Dialysis 81 BPM Temperature Pre-Dialysis 97.6 degF Temperature Post -Dialysis 98.2 degF September 02, 2025 In-Center Hemodialysis Treatment 0794-71-26A62:04:00.000Z 4763-95-34A95:25:06.000Z BP Sitting (Pre-Dialysis) 187/96 mmHg BP Sitting (Post-Dialysis) 197/81 mmHg Concurrent Access: falseCentral Venous Catheter (CVC) Chest (Right) Arterial Sitting Heart Rate Pre-Dialysis 73 BPM Sitting H eart Rate Post-Dialysis 75 BPM Temperature Pre-Dialysis 97.8 degF Temperature Post -Dialysis 97.8 degF August 30, 2025 In-Center Hemodialysis Treatment 4769-25-10F69:41:00.000Z 6025-65-32B16:09:59.000Z BP Sitting (Pre-Dialysis) 155/82 mmHg BP Sitting (Post-Dialysis) 167/99 mmHg Concurrent Access: falseCentral Venous Catheter (CVC) Chest (Right) Arterial Sitting Heart Rate Pre-Dialysis 79 BPM Sitting H eart Rate Post-Dialysis 79 BPM Temperature Pre-Dialysis 97 degF Temperature Post -Dialysis 97.6 degF August 28, 2025 In-Center Hemodialysis Treatment 9933-26-67M50:41:00.000Z 0341-30-16C46:06:37.000Z BP Sitting (Pre-Dialysis) 174/95 mmHg BP Sitting (Post-Dialysis) 165/98 mmHg Concurrent Access: falseCentral Venous Catheter (CVC) Chest (Right) Arterial Sitting Heart Rate Pre-Dialysis 76 BPM Sitting H eart Rate Post-Dialysis 80 BPM Temperature Pre-Dialysis 97.3 degF Temperature Post -Dialysis 97.6 degF August 26, 2025 In-Center Hemodialysis Treatment 1563-74-57T55:56:00.000Z 3085-66-30G24:25:44.000Z BP Sitting (Pre-Dialysis) 181/88 mmHg BP Sitting (Post-Dialysis) 188/118 mmHg Concurrent Access: falseCentral Venous Catheter (CVC) Chest (Right) Arterial Sitting Heart Rate Pre-Dialysis 68 BPM Sitting H eart Rate Post-Dialysis 75 BPM Temperature Pre-Dialysis 97.2 degF Temperature Post -Dialysis 97.5 degF August 23, 2025 In-Center Hemodialysis Treatment 6284-88-67J44:30:00.000Z 2320-85-11P78:07:00.000Z BP Sitting (Pre-Dialysis) 175/90 mmHg BP Sitting (Post-Dialysis) 163/107 mmHg Concurrent Access: falseCentral Venous Catheter (CVC) Chest (Right) Arterial Sitting Heart Rate Pre-Dialysis 77 BPM Sitting H eart Rate Post-Dialysis 82 BPM Temperature Pre-Dialysis 97.5 degF Temperature Post -Dialysis 97.1 degF August 21, 2025 In-Center Hemodialysis Treatment 3538-75-24M99:07:00.000Z 5280-96-66V35:27:58.000Z BP Sitting (Pre-Dialysis) 202/105 mmHg BP Sitting (Post-Dialysis) 203/110 mmHg Concurrent Access: falseCentral Venous Catheter (CVC) Chest (Right) Arterial Sitting Heart Rate Pre-Dialysis 71 BPM Sitting H eart Rate Post-Dialysis 76 BPM Temperature Pre-Dialysis 97.7 degF August 19, 2025 In-Center Hemodialysis Treatment 8807-85-79G09:34:00.000Z 4725-42-96W58:10:56.000Z BP Sitting (Pre-Dialysis) 168/92 mmHg BP Sitting (Post-Dialysis) 165/96 mmHg Concurrent Access: falseCentral Venous Catheter (CVC) Chest (Right) Arterial Sitting Heart Rate Pre-Dialysis 77 BPM Sitting H eart Rate Post-Dialysis 85 BPM Temperature Pre-Dialysis 98 degF Temperature Post -Dialysis 97.4 degF August 16, 2025 In-Center Hemodialysis Treatment 4803-06-98S50:06:50.000Z 4028-30-87Q63:43:55.000Z BP Sitting (Pre-Dialysis) 143/74 mmHg BP Sitting (Post-Dialysis) 153/85 mmHg Concurrent Access: falseCentral Venous Catheter (CVC) Chest (Right) Arterial Sitting Heart Rate Pre-Dialysis 77 BPM Sitting H eart Rate Post-Dialysis 73 BPM Temperature Pre-Dialysis 97.2 degF Temperature Post -Dialysis 97.6 degF August 14, 2025 In-Center Hemodialysis Treatment 0838-25-88P93:56:06.000Z 1678-31-53Y68:29:01.000Z BP Sitting (Pre-Dialysis) 144/69 mmHg BP Sitting (Post-Dialysis) 174/81 mmHg Concurrent Access: falseCentral Venous Catheter (CVC) Chest (Right) Arterial Sitting Heart Rate Pre-Dialysis 76 BPM Sitting H eart Rate Post-Dialysis 70 BPM Temperature Pre-Dialysis 97.5 degF Temperature Post -Dialysis 97.5 degF August 12, 2025 In-Center Hemodialysis Treatment 9704-64-73U60:58:25.000Z 5806-36-14W43:28:25.000Z BP Sitting (Pre-Dialysis) 152/85 mmHg BP Sitting (Post-Dialysis) 156/76 mmHg Concurrent Access: falseCentral Venous Catheter (CVC) Chest (Right) Arterial Sitting Heart Rate Pre-Dialysis 76 BPM Sitting H eart Rate Post-Dialysis 77 BPM Temperature Pre-Dialysis 97.6 degF Temperature Post -Dialysis 97.4 degF August 09, 2025 In-Center Hemodialysis Treatment 3386-40-96V91:02:31.000Z 2512-01-06C85:39:11.000Z BP Sitting (Pre-Dialysis) 160/87 mmHg BP Sitting (Post-Dialysis) 163/100 mmHg Concurrent Access: falseCentral Venous Catheter (CVC) Chest (Right) Arterial Sitting Heart Rate Pre-Dialysis 80 BPM Sitting H eart Rate Post-Dialysis 86 BPM Temperature Pre-Dialysis 97.9 degF Temperature Post -Dialysis 97.6 degF August 07, 2025 In-Center Hemodialysis Treatment 3935-12-58D06:31:00.000Z 7964-47-83M79:04:54.000Z BP Sitting (Pre-Dialysis) 175/107 mmHg BP Sitting (Post-Dialysis) 196/86 mmHg Concurrent Access: falseCentral Venous Catheter (CVC) Chest (Right) Arterial Sitting Heart Rate Pre-Dialysis 74 BPM Sitting H eart Rate Post-Dialysis 77 BPM Temperature Pre-Dialysis 98 degF Temperature Post -Dialysis 97.5 degF August 05, 2025 In-Center Hemodialysis Treatment 2140-48-41W49:51:46.000Z 8197-97-27J56:13:01.000Z BP Sitting (Pre-Dialysis) 163/85 mmHg BP Sitting (Post-Dialysis) 164/66 mmHg Concurrent Access: falseCentral Venous Catheter (CVC) Chest (Right) Arterial Sitting Heart Rate Pre-Dialysis 73 BPM Sitting H eart Rate Post-Dialysis 75 BPM Temperature Pre-Dialysis 97.7 degF Temperature Post -Dialysis 97.6 degF August 02, 2025 In-Center Hemodialysis Treatment 7583-43-04S62:28:46.000Z 9538-59-00S02:55:00.000Z BP Sitting (Pre-Dialysis) 170/84 mmHg BP Sitting (Post-Dialysis) 154/98 mmHg Concurrent Access: falseCentral Venous Catheter (CVC) Chest (Right) Arterial Sitting Heart Rate Pre-Dialysis 70 BPM Sitting H eart Rate Post-Dialysis 76 BPM Temperature Pre-Dialysis 97.9 degF Temperature Post -Dialysis 97.4 degF July 31, 2025 In-Center Hemodialysis Treatment 9773-35-15L13:35:21.000Z 3511-05-79D31:08:16.000Z BP Sitting (Pre-Dialysis) 172/97 mmHg BP Sitting (Post-Dialysis) 175/92 mmHg Concurrent Access: falseCentral Venous Catheter (CVC) Chest (Right) Arterial Sitting Heart Rate Pre-Dialysis 74 BPM Sitting H eart Rate Post-Dialysis 86 BPM Temperature Pre-Dialysis 97.5 degF Temperature Post -Dialysis 98.2 degF July 29, 2025 In-Center Hemodialysis Treatment 2106-80-66F84:58:01.000Z 3869-19-91D83:25:56.000Z BP Sitting (Pre-Dialysis) 185/99 mmHg BP Sitting (Post-Dialysis) 168/130 mmHg Concurrent Access: falseCentral Venous Catheter (CVC) Chest (Right) Arterial Sitting Heart Rate Pre-Dialysis 71 BPM Sitting H eart Rate Post-Dialysis 89 BPM Temperature Pre-Dialysis 98 degF Temperature Post -Dialysis 97.7 degF July 26, 2025 In-Center Hemodialysis Treatment 4644-05-75U37:53:03.000Z 8379-67-49O42:46:23.000Z BP Sitting (Pre-Dialysis) 172/86 mmHg BP Sitting (Post-Dialysis) 171/92 mmHg Concurrent Access: falseCentral Venous Catheter (CVC) Chest (Right) Arterial Sitting Heart Rate Pre-Dialysis 73 BPM Sitting H eart Rate Post-Dialysis 83 BPM Temperature Pre-Dialysis 97.5 degF Temperature Post -Dialysis 97.2 degF July 24, 2025 In-Center Hemodialysis Treatment 7835-14-52R44:20:01.000Z 6310-29-27D03:50:01.000Z BP Sitting (Pre-Dialysis) 153/89 mmHg BP Sitting (Post-Dialysis) 190/94 mmHg Concurrent Access: falseCentral Venous Catheter (CVC) Chest (Right) Arterial Sitting Heart Rate Pre-Dialysis 73 BPM Sitting H eart Rate Post-Dialysis 74 BPM Temperature Pre-Dialysis 97.9 degF Temperature Post -Dialysis 97.3 degF July 22, 2025 In-Center Hemodialysis Treatment 6479-75-59D78:50:56.000Z 5469-66-37D58:29:41.000Z BP Sitting (Pre-Dialysis) 129/71 mmHg BP Sitting (Post-Dialysis) 133/76 mmHg Concurrent Access: falseCentral Venous Catheter (CVC) Chest (Right) Arterial Sitting Heart Rate Pre-Dialysis 81 BPM Sitting H eart Rate Post-Dialysis 85 BPM Temperature Pre-Dialysis 97.3 degF Temperature Post -Dialysis 97.2 degF July 19, 2025 In-Center Hemodialysis Treatment 4055-12-20T54:29:35.000Z 9596-69-12Z81:04:35.000Z BP Sitting (Pre-Dialysis) 123/72 mmHg BP Sitting (Post-Dialysis) 145/82 mmHg Concurrent Access: falseCentral Venous Catheter (CVC) Chest (Right) Arterial Sitting Heart Rate Pre-Dialysis 76 BPM Sitting H eart Rate Post-Dialysis 81 BPM Temperature Pre-Dialysis 98 degF Temperature Post -Dialysis 98 degF July 17, 2025 In-Center Hemodialysis Treatment 8595-29-48P22:51:00.000Z 1811-45-76O63:21:50.000Z BP Sitting (Pre-Dialysis) 149/79 mmHg BP Sitting (Post-Dialysis) 157/91 mmHg Concurrent Access: falseCentral Venous Catheter (CVC) Chest (Right) Arterial Sitting Heart Rate Pre-Dialysis 82 BPM Sitting H eart Rate Post-Dialysis 82 BPM Temperature Pre-Dialysis 97.5 degF Temperature Post -Dialysis 97.9 degF July 15, 2025 In-Center Hemodialysis Treatment 2754-38-65N02:32:44.000Z 4634-89-87A67:11:04.000Z BP Sitting (Pre-Dialysis) 141/77 mmHg BP Sitting (Post-Dialysis) 157/92 mmHg Concurrent Access: falseCentral Venous Catheter (CVC) Chest (Right) Arterial Sitting Heart Rate Pre-Dialysis 79 BPM Sitting H eart Rate Post-Dialysis 88 BPM Temperature Pre-Dialysis 97.5 degF Temperature Post -Dialysis 97.6 degF July 12, 2025 In-Center Hemodialysis Treatment 2574-22-93A40:05:21.000Z 3397-31-96V03:35:21.000Z BP Sitting (Pre-Dialysis) 137/57 mmHg BP Sitting (Post-Dialysis) 169/86 mmHg Concurrent Access: falseCentral Venous Catheter (CVC) Chest (Right) Arterial Sitting Heart Rate Pre-Dialysis 82 BPM Sitting H eart Rate Post-Dialysis 92 BPM Temperature Pre-Dialysis 97.6 degF Temperature Post -Dialysis 98.2 degF July 10, 2025 In-Center Hemodialysis Treatment 1511-88-59L98:44:59.000Z 8462-66-25U82:14:34.000Z BP Sitting (Pre-Dialysis) 189/97 mmHg BP Sitting (Post-Dialysis) 139/97 mmHg Concurrent Access: falseCentral Venous Catheter (CVC) Chest (Right) Arterial Sitting Heart Rate Pre-Dialysis 77 BPM Sitting H eart Rate Post-Dialysis 98 BPM Temperature Pre-Dialysis 97.1 degF Temperature Post -Dialysis 98.1 degF July 08, 2025 In-Center Hemodialysis Treatment 1162-76-37F08:21:22.000Z 4707-38-46R60:57:37.000Z BP Sitting (Pre-Dialysis) 143/86 mmHg BP Sitting (Post-Dialysis) 156/91 mmHg Concurrent Access: falseCentral Venous Catheter (CVC) Chest (Right) Arterial Sitting Heart Rate Pre-Dialysis 81 BPM Sitting H eart Rate Post-Dialysis 87 BPM Temperature Pre-Dialysis 97.4 degF Temperature Post -Dialysis 97.7 degF July 05, 2025 In-Center Hemodialysis Treatment 3316-86-79R73:33:45.000Z 9543-01-09Z42:02:30.000Z BP Sitting (Pre-Dialysis) 153/85 mmHg BP Sitting (Post-Dialysis) 161/69 mmHg Concurrent Access: falseCentral Venous Catheter (CVC) Chest (Right) Arterial Sitting Heart Rate Pre-Dialysis 88 BPM Sitting H eart Rate Post-Dialysis 90 BPM Temperature Pre-Dialysis 98.3 degF Temperature Post -Dialysis 97.6 degF July 03, 2025 In-Center Hemodialysis Treatment 5397-38-60R26:41:56.000Z 6167-30-27P39:14:26.000Z BP Sitting (Pre-Dialysis) 171/92 mmHg BP Sitting (Post-Dialysis) 192/117 mmHg Concurrent Access: falseCentral Venous Catheter (CVC) Chest (Right) Arterial Sitting Heart Rate Pre-Dialysis 83 BPM Sitting H eart Rate Post-Dialysis 82 BPM Temperature Pre-Dialysis 97.6 degF Temperature Post -Dialysis 97.7 degF July 01, 2025 In-Center Hemodialysis Treatment 4986-55-26O58:42:58.000Z 2577-09-28F59:12:33.000Z BP Sitting (Pre-Dialysis) 151/83 mmHg BP Sitting (Post-Dialysis) 169/85 mmHg Concurrent Access: falseCentral Venous Catheter (CVC) Chest (Right) Arterial Sitting Heart Rate Pre-Dialysis 74 BPM Sitting H eart Rate Post-Dialysis 87 BPM Temperature Pre-Dialysis 97.5 degF Temperature Post -Dialysis 97.3 degF June 28, 2025 In-Center Hemodialysis Treatment 6735-06-23X42:02:06.000Z 5450-09-56P41:58:21.000Z BP Sitting (Pre-Dialysis) 151/81 mmHg BP Sitting (Post-Dialysis) 187/103 mmHg Concurrent Access: falseCentral Venous Catheter (CVC) Chest (Right) Arterial Sitting Heart Rate Pre-Dialysis 84 BPM Sitting H eart Rate Post-Dialysis 86 BPM Temperature Pre-Dialysis 97.4 degF Temperature Post -Dialysis 97.5 degF June 26, 2025 In-Center Hemodialysis Treatment 4501-34-00S20:46:05.000Z 6950-46-83Y48:31:05.000Z BP Sitting (Pre-Dialysis) 185/81 mmHg BP Sitting (Post-Dialysis) 17/77 mmHg Concurrent Access: falseCentral Venous Catheter (CVC) Chest (Right) Arterial Sitting Heart Rate Pre-Dialysis 81 BPM Sitting H eart Rate Post-Dialysis 87 BPM Temperature Pre-Dialysis 97.5 degF Temperature Post -Dialysis 97.6 degF June 24, 2025 In-Center Hemodialysis Treatment 2180-04-29Z13:16:34.000Z 0698-89-21W10:34:29.000Z BP Sitting (Pre-Dialysis) 151/72 mmHg BP Sitting (Post-Dialysis) 159/85 mmHg Concurrent Access: falseCentral Venous Catheter (CVC) Chest (Right) Arterial Sitting Heart Rate Pre-Dialysis 82 BPM Sitting H eart Rate Post-Dialysis 74 BPM Temperature Pre-Dialysis 97.6 degF Temperature Post -Dialysis 97.8 degF June 21, 2025 In-Center Hemodialysis Treatment 3437-55-48A44:41:32.000Z 7065-28-40R03:09:27.000Z BP Sitting (Pre-Dialysis) 159/81 mmHg BP Sitting (Post-Dialysis) 145/67 mmHg Concurrent Access: falseCentral Venous Catheter (CVC) Chest (Right) Arterial Sitting Heart Rate Pre-Dialysis 82 BPM Sitting H eart Rate Post-Dialysis 80 BPM Temperature Pre-Dialysis 97.5 degF Temperature Post -Dialysis 97.2 degF June 19, 2025 In-Center Hemodialysis Treatment 1753-13-56F32:45:11.000Z 6873-53-31W45:15:11.000Z BP Sitting (Pre-Dialysis) 139/69 mmHg BP Sitting (Post-Dialysis) 180/99 mmHg Concurrent Access: falseCentral Venous Catheter (CVC) Chest (Right) Arterial Sitting Heart Rate Pre-Dialysis 78 BPM Sitting H eart Rate Post-Dialysis 69 BPM Temperature Pre-Dialysis 98.1 degF Temperature Post -Dialysis 97.5 degF June 17, 2025 In-Center Hemodialysis Treatment 2882-67-49H61:35:46.000Z 7235-95-78N46:08:41.000Z BP Sitting (Pre-Dialysis) 131/75 mmHg BP Sitting (Post-Dialysis) 173/91 mmHg Concurrent Access: falseCentral Venous Catheter (CVC) Chest (Right) Arterial Sitting Heart Rate Pre-Dialysis 79 BPM Sitting H eart Rate Post-Dialysis 69 BPM Temperature Pre-Dialysis 98.1 degF Temperature Post -Dialysis 97.1 degF June 14, 2025 In-Center Hemodialysis Treatment 5956-30-45R19:42:15.000Z 0463-41-50X16:24:45.000Z BP Sitting (Pre-Dialysis) 156/82 mmHg BP Sitting (Post-Dialysis) 186/100 mmHg Concurrent Access: falseCentral Venous Catheter (CVC) Chest (Right) Arterial Sitting Heart Rate Pre-Dialysis 77 BPM Sitting H eart Rate Post-Dialysis 81 BPM Temperature Pre-Dialysis 97.2 degF Temperature Post -Dialysis 98 degF June 10, 2025 In-Center Hemodialysis Treatment 9207-90-81T80:24:31.000Z 9117-53-40H86:44:06.000Z BP Sitting (Pre-Dialysis) 145/76 mmHg BP Sitting (Post-Dialysis) 173/87 mmHg Concurrent Access: falseCentral Venous Catheter (CVC) Chest (Right) Arterial Sitting Heart Rate Pre-Dialysis 86 BPM Sitting H eart Rate Post-Dialysis 78 BPM Temperature Pre-Dialysis 97.4 degF Temperature Post -Dialysis 97.6 degF June 07, 2025 In-Center Hemodialysis Treatment 3713-62-68E65:53:34.000Z 5635-20-18T76:23:09.000Z BP Sitting (Pre-Dialysis) 153/88 mmHg BP Sitting (Post-Dialysis) 152/82 mmHg Concurrent Access: falseCentral Venous Catheter (CVC) Chest (Right) Arterial Sitting Heart Rate Pre-Dialysis 82 BPM Sitting H eart Rate Post-Dialysis 85 BPM Temperature Pre-Dialysis 97.1 degF Temperature Post -Dialysis 98 degF June 05, 2025 In-Center Hemodialysis Treatment 8836-29-50I21:43:19.000Z 9106-72-15W25:13:19.000Z BP Sitting (Pre-Dialysis) 122/65 mmHg BP Sitting (Post-Dialysis) 169/92 mmHg Concurrent Access: falseCentral Venous Catheter (CVC) Chest (Right) Arterial Sitting Heart Rate Pre-Dialysis 81 BPM Sitting H eart Rate Post-Dialysis 76 BPM Temperature Pre-Dialysis 98 degF Temperature Post -Dialysis 97.3 degF June 03, 2025 In-Center Hemodialysis Treatment 9038-99-44X26:59:29.000Z 3404-31-68U30:31:09.000Z BP Sitting (Pre-Dialysis) 170/86 mmHg BP Sitting (Post-Dialysis) 165/99 mmHg Concurrent Access: falseCentral Venous Catheter (CVC) Chest (Right) Arterial Sitting Heart Rate Pre-Dialysis 78 BPM Sitting H eart Rate Post-Dialysis 85 BPM Temperature Pre-Dialysis 97.9 degF Temperature Post -Dialysis 97.7 degF May 31, 2025 In-Center Hemodialysis Treatment 1787-36-76T79:44:00.000Z 0814-12-29M82:15:21.000Z BP Sitting (Pre-Dialysis) 129/76 mmHg BP Sitting (Post-Dialysis) 165/91 mmHg Concurrent Access: falseCentral Venous Catheter (CVC) Chest (Right) Arterial Sitting Heart Rate Pre-Dialysis 80 BPM Sitting H eart Rate Post-Dialysis 83 BPM Temperature Pre-Dialysis 97.5 degF Temperature Post -Dialysis 97 degF May 29, 2025 [facility] [facility] Treatment 2218-39-11V64:05:52.000Z 5246-43-07X31:38:47.000Z BP Sitting (Pre-Dialysis) 105/51 mmHg BP Sitting (Post-Dialysis) 121/74 mmHg Concurrent Access: falseCentral Venous Catheter (CVC) Chest (Right) Arterial Sitting Heart Rate Pre-Dialysis 87 BPM Sitting H eart Rate Post-Dialysis 78 BPM Temperature Pre-Dialysis 97.8 degF Temperature Post -Dialysis 97.8 degF May 27, 2025 In-Center Hemodialysis Treatment 6776-12-54R04:02:27.000Z 1754-24-68E52:32:02.000Z BP Sitting (Pre-Dialysis) 143/80 mmHg BP Sitting (Post-Dialysis) 183/96 mmHg Concurrent Access: falseCentral Venous Catheter (CVC) Chest (Right) Arterial Sitting Heart Rate Pre-Dialysis 79 BPM Sitting H eart Rate Post-Dialysis 80 BPM Temperature Pre-Dialysis 97.9 degF Temperature Post -Dialysis 97.2 degF May 24, 2025 In-Center Hemodialysis Treatment 6467-93-37R72:54:05.000Z 7833-99-22K67:30:45.000Z BP Sitting (Pre-Dialysis) 121/61 mmHg BP Sitting (Post-Dialysis) 157/95 mmHg Concurrent Access: falseCentral Venous Catheter (CVC) Chest (Right) Arterial Sitting Heart Rate Pre-Dialysis 90 BPM Sitting H eart Rate Post-Dialysis 89 BPM Temperature Pre-Dialysis 97.5 degF Temperature Post -Dialysis 97.4 degF May 22, 2025 In-Center Hemodialysis Treatment 7310-34-18W50:42:51.000Z 1814-94-68Q05:12:26.000Z BP Sitting (Pre-Dialysis) 155/89 mmHg BP Sitting (Post-Dialysis) 164/91 mmHg Concurrent Access: falseCentral Venous Catheter (CVC) Chest (Right) Arterial Sitting Heart Rate Pre-Dialysis 93 BPM Sitting H eart Rate Post-Dialysis 90 BPM Temperature Pre-Dialysis 97.8 degF Temperature Post -Dialysis 97.6 degF May 20, 2025 In-Center Hemodialysis Treatment 5199-41-69Q55:16:26.000Z 5990-24-35P59:46:26.000Z BP Sitting (Pre-Dialysis) 145/69 mmHg BP Sitting (Post-Dialysis) 196/95 mmHg Concurrent Access: falseCentral Venous Catheter (CVC) Chest (Right) Arterial Sitting Heart Rate Pre-Dialysis 71 BPM Sitting H eart Rate Post-Dialysis 88 BPM Temperature Pre-Dialysis 97.8 degF Temperature Post -Dialysis 97.8 degF May 17, 2025 In-Center Hemodialysis Treatment 8548-91-35X95:40:55.000Z 9001-94-02H37:25:55.000Z BP Sitting (Pre-Dialysis) 125/56 mmHg BP Sitting (Post-Dialysis) 144/74 mmHg Concurrent Access: falseCentral Venous Catheter (CVC) Chest (Right) Arterial Sitting Heart Rate Pre-Dialysis 93 BPM Sitting H eart Rate Post-Dialysis 83 BPM Temperature Pre-Dialysis 97.2 degF Temperature Post -Dialysis 97.2 degF May 15, 2025 In-Center Hemodialysis Treatment 5786-60-10Y38:32:25.000Z 5642-74-21E91:59:05.000Z BP Sitting (Pre-Dialysis) 130/72 mmHg BP Sitting (Post-Dialysis) 171/87 mmHg Concurrent Access: falseCentral Venous Catheter (CVC) Chest (Right) Arterial Sitting Heart Rate Pre-Dialysis 98 BPM Sitting H eart Rate Post-Dialysis 92 BPM Temperature Pre-Dialysis 97.2 degF Temperature Post -Dialysis 97 degF April 26, 2025 In-Center Hemodialysis Treatment 7822-82-44U58:48:30.000Z 8107-54-38K86:18:30.000Z BP Sitting (Pre-Dialysis) 118/60 mmHg BP Sitting (Post-Dialysis) 137/69 mmHg Concurrent Access: falseCentral Venous Catheter (CVC) Chest (Right) Arterial Sitting Heart Rate Pre-Dialysis 78 BPM Sitting H eart Rate Post-Dialysis 66 BPM Temperature Pre-Dialysis 97.8 degF Temperature Post -Dialysis 97.1 degF April 24, 2025 In-Center Hemodialysis Treatment 9667-77-78T82:06:12.000Z 6267-61-88A67:36:37.000Z BP Sitting (Pre-Dialysis) 127/49 mmHg BP Sitting (Post-Dialysis) 167/88 mmHg Concurrent Access: falseCentral Venous Catheter (CVC) Chest (Right) Arterial Sitting Heart Rate Pre-Dialysis 65 BPM Sitting H eart Rate Post-Dialysis 74 BPM Temperature Pre-Dialysis 97.5 degF Temperature Post -Dialysis 97.6 degF April 22, 2025 In-Center Hemodialysis Treatment 3327-36-21D22:52:49.000Z 6972-54-70L34:22:49.000Z BP Sitting (Pre-Dialysis) 150/77 mmHg BP Sitting (Post-Dialysis) 193/89 mmHg Concurrent Access: falseCentral Venous Catheter (CVC) Chest (Right) Arterial Sitting Heart Rate Pre-Dialysis 76 BPM Sitting H eart Rate Post-Dialysis 75 BPM Temperature Pre-Dialysis 97.2 degF Temperature Post -Dialysis 97.7 degF April 17, 2025 In-Center Hemodialysis Treatment 6846-68-16X97:43:34.000Z 4268-74-13Y49:13:34.000Z BP Sitting (Pre-Dialysis) 142/77 mmHg BP Sitting (Post-Dialysis) 186/71 mmHg Concurrent Access: falseCentral Venous Catheter (CVC) Chest (Right) Arterial Sitting Heart Rate Pre-Dialysis 77 BPM Sitting H eart Rate Post-Dialysis 75 BPM Temperature Pre-Dialysis 97.3 degF Temperature Post -Dialysis 97.2 degF April 15, 2025 In-Center Hemodialysis Treatment [id number]:58:01.000Z [id number]:25:31.000Z BP Sitting (Pre-Dialysis) 143/80 mmHg BP Sitting (Post-Dialysis) 160/87 mmHg Concurrent Access: falseCentral Venous Catheter (CVC) Chest (Right) Arterial Sitting Heart Rate Pre-Dialysis 82 BPM Sitting H eart Rate Post-Dialysis 87 BPM Temperature Pre-Dialysis 97.9 degF Temperature Post -Dialysis 98.2 degF August 02, 2023 In-Center Hemodialysis Treatment [id number]:36:05.000Z 2218-88-45U00:26:55.000Z BP Sitting (Pre-Dialysis) 184/98 mmHg BP Sitting [...] degF July 28, 2023 In-Center Hemodialysis Treatment 6614-07-11Q44:14:59.000Z 6885-15-77O35:44:34.000Z BP Sitting (Pre-Dialysis) 177/90 mmHg BP Sitting [...] degF July 26, 2023 In-Center Hemodialysis Treatment 7139-48-93Y33:04:00.000Z 3958-25-47Z52:38:49.000Z BP Sitting (Pre-Dialysis) 169/86 mmHg BP Sitting [...] degF July 23, 2023 In-Center Hemodialysis Treatment 0245-16-59J19:11:38.000Z 9497-26-09L85:41:38.000Z BP Sitting (Pre-Dialysis) 239/107 mmHg BP Sitting [...] degF July 21, 2023 In-Center Hemodialysis Treatment 7898-77-60Z54:14:34.000Z 8005-04-54T91:44:09.000Z BP Sitting (Pre-Dialysis) 177/67 mmHg BP Sitting (Post-Dialysis) 153/81 mmHg Concurrent Access: falseCentral Venous Catheter (CVC) Chest (Right) Arterial Sitting Heart Rate Pre-Dialysis 128 BPM BP Standing (Post-Dialysis) 143/91 mmHg Temperature Pre-Dialysis 97.5 degF Sitting Heart Ra te Post-Dialysis 105 BPM Standing Heart Rate Post-Felecia lysis 115 BPM Temperature Post-Dialysis 97 .2 degF July 19, 2023 In-Center Hemodialysis Treatment [id number]:13:00.000Z 9439-20-92M47:48:17.000Z BP Sitting (Pre-Dialysis) 186/96 mmHg BP Sitting [...] degF July 16, 2023 In-Center Hemodialysis Treatment 7693-14-46D20:01:00.000Z 7218-33-30N38:39:19.000Z BP Sitting (Pre-Dialysis) 197/103 mmHg BP Sitting [...] degF July 14, 2023 In-Center Hemodialysis Treatment 1939-67-19E79:40:59.000Z 2370-45-61G15:10:59.000Z BP Sitting (Pre-Dialysis) 200/101 mmHg BP Sitting [...] degF July 12, 2023 In-Center Hemodialysis Treatment 2025-01-86G34:33:00.000Z 3294-29-30O99:02:58.000Z BP Sitting (Pre-Dialysis) 180/94 mmHg BP Sitting [...] degF May 10, 2023 In-Center Hemodialysis Treatment 4153-59-79J95:15:00.000Z 2318-24-20E51:51:26.000Z BP Sitting (Pre-Dialysis) 134/63 mmHg BP Sitting [...] degF May 07, 2023 In-Center Hemodialysis Treatment 9197-32-48N69:02:00.000Z 5269-98-12Y06:16:36.000Z BP Sitting (Pre-Dialysis) 128/58 mmHg BP Sitting [...] degF May 05, 2023 In-Center Hemodialysis Treatment 6927-33-14H52:25:00.000Z 5748-09-96A07:57:36.000Z BP Sitting (Pre-Dialysis) 161/78 mmHg BP Sitting [...] degF May 03, 2023 In-Center Hemodialysis Treatment [id number]:50:00.000Z 7861-22-99G54:22:20.000Z BP Sitting (Pre-Dialysis) 142/68 mmHg BP Sitting [...] degF April 30, 2023 In-Center Hemodialysis Treatment 9902-13-10U69:54:00.000Z 3257-02-56W94:40:49.000Z BP Sitting (Pre-Dialysis) 181/94 mmHg BP Sitting [...] degF April 28, 2023 In-Center Hemodialysis Treatment 5290-86-78Q49:09:35.000Z 9954-49-66V80:54:35.000Z BP Sitting (Pre-Dialysis) 156/81 mmHg BP Sitting [...] degF April 26, 2023 In-Center Hemodialysis Treatment [id number]:04:00.000Z 2667-88-20C07:46:33.000Z BP Sitting (Pre-Dialysis) 168/81 mmHg BP Sitting [...] degF April 23, 2023 In-Center Hemodialysis Treatment 6724-37-03V49:59:18.000Z 9914-23-48J27:59:18.000Z BP Sitting (Pre-Dialysis) 161/75 mmHg BP Sitting [...] degF April 21, 2023 In-Center Hemodialysis Treatment 8706-24-63P43:53:01.000Z 3854-52-61X84:47:00.000Z BP Sitting (Pre-Dialysis) 187/89 mmHg BP Sitting [...] degF April 16, 2023 In-Center Hemodialysis Treatment [id number]:03:00.000Z [id number]:35:27.000Z BP Sitting (Pre-Dialysis) 231/104 mmHg BP Sitting [...] Order Order Date/Time Observations In-Center Hemodialysis Treatment [facility] 2024 Target Weight 76.5 kg Dialysate Flow Rate 500 mL/min Blood Flow Rate 400 mL/min Treatment Time 210 min(total) Max UF Rate 13 mL/kg/hr dialysate_temp 37 C BiCarb Dialysate BiCarbonate 38 meq/L Access Concurrent No Arterial Access Central Venous [place] [facility] (CVC) (Chest (Right)) Venous Access Central Venous [place] [address] (CVC) (Chest (Right)) Dialyzer Nipro Elisio 15H 126 4 [email or web address] Dialysate Bath Potassium Potassium 3 mEq /L Dialysate Bath Calcium Calcium 2.5 mEq/L Results Adequacy Description Draw Date Result/Unit Status Ref Range Result Comments Creatinine [Mass/volume] in Serum or Plasma 2025-09-03 18:32:16 8.96 mg/dL F 0.55-1.02 Creatinine [Mass/volume] in Serum or Plasma 2025-08-28 18:43:19 8.48 mg/dL F 0.55-1.02 VT (KT/V TX VOL) 2025-08-20 23:09:06 27.4 L F PATIENT AGE 2025-08-20 23:09:06 64 Years F PRESCRIBED DAYS/WEEK 2025-08-20 23:09:06 3 Day/Wk F Residual kt/v 2025-08-20 23:09:06 F Dialyzer CHING 2025-08-20 23:09:06 1264 Calc F WEIGHT - POST DAY 1 2025-08-20 23:09:06 79.9 kg F DIALYZER FLOW-QD 2025-08-20 23:09:06 500 mL/min F nPCR 2025-08-20 23:09:06 0.9 G/KG/D F BLOOD FLOW-QWB 2025-08-20 23:09:06 399 F stdKt/V (DIAL) 2025-08-20 23:09:06 N/A F TOTAL HOURS/WEEK DIALYSIS 2025-08-20 23:09:06 10 hrs F spKt/V 2025-08-20 23:09:06 2.08 F CURRENT KRU 2025-08-20 23:09:06 F HEIGHT IN INCHES 2025-08-20 23:09:06 65 Inches F stdKT/V Total 2025-08-20 23:09:06 N/A F AMPUTATE FACTOR 2025-08-20 23:09:06 0 F Total Kt/V 2025-08-20 23:09:06 2.08 F TBW (Hernandez) 2025-08-20 23:09:06 35.26 Liters F URR% 2025-08-20 23:09:06 85 % F VM (KT/V MEAN VOL) 2025-08-20 23:09:06 32.4 F WEIGHT (KG) 2025-08-20 23:09:06 75 kg F WEIGHT - PRE DAY 1 2025-08-20 23:09:06 79.9 kg F LENGTH OF DIALYSIS 2025-08-20 23:09:06 212 min F BSA ANIRUDH 2025-08-20 23:09:06 1.82 sq m F KT/V PRESCRIBED 2025-08-20 23:09:06 2.03 F eKt/V 2025-08-20 23:09:06 1.75 F Std Renal KT/V 2025-08-20 23:09:06 N/A F Creatinine [Mass/volume] in Serum or Plasma 2025-08-20 23:07:24 7.89 mg/dL F 0.55-1.02 Urea nitrogen [Mass/volume] in Serum or Plasma 2025-08-20 23:07:24 55 mg/dL F 9.0-23.0 Urea nitrogen [Mass/volume] in Serum or Plasma --post dialysis 2025-08-20 21:52:17 8 mg/dL F 9.0-23.0 Creatinine [Mass/volume] in Serum or Plasma 2025-08-13 19:18:14 8.87 mg/dL F 0.55-1.02 Creatinine [Mass/volume] in Serum or Plasma 2025-08-07 02:34:19 8.01 mg/dL F 0.55-1.02 Creatinine [Mass/volume] in Serum or Plasma 2025-07-30 20:25:15 8.35 mg/dL F 0.55-1.02 eKt/V 2025-07-23 18:06:13 1.41 F Residual kt/v 2025-07-23 18:06:13 F Unable to calculate: Post BUN lab result is unknown KT/V PRESCRIBED 2025-07-23 18:06:13 2.04 F HEIGHT IN INCHES 2025-07-23 18:06:13 65 Inches F TBW (Hernandez) 2025-07-23 18:06:13 34.24 Liters F stdKt/V (DIAL) 2025-07-23 18:06:13 N/A F nPCR 2025-07-23 18:06:13 0.87 G/KG/D F WEIGHT - PRE DAY 1 2025-07-23 18:06:13 76.4 kg F Std Renal KT/V 2025-07-23 18:06:13 N/A F BSA ANIRUDH 2025-07-23 18:06:13 1.81 sq m F stdKT/V Total 2025-07-23 18:06:13 N/A F URR% 2025-07-23 18:06:13 78 % F TOTAL HOURS/WEEK DIALYSIS 2025-07-23 18:06:13 10 hrs F LENGTH OF DIALYSIS 2025-07-23 18:06:13 212 min F BLOOD FLOW-QWB 2025-07-23 18:06:13 399 F VM (KT/V MEAN VOL) 2025-07-23 18:06:13 34.1 F WEIGHT - POST DAY 1 2025-07-23 18:06:13 75.8 kg F AMPUTATE FACTOR 2025-07-23 18:06:13 0 F VT (KT/V TX VOL) 2025-07-23 18:06:13 34.3 L F PRESCRIBED DAYS/WEEK 2025-07-23 18:06:13 3 Day/Wk F DIALYZER FLOW-QD 2025-07-23 18:06:13 500 mL/min F CURRENT KRU 2025-07-23 18:06:13 F Unable to calculate: Post BUN lab result is unknown WEIGHT (KG) 2025-07-23 18:06:13 74 kg F spKt/V 2025-07-23 18:06:13 1.66 F PATIENT AGE 2025-07-23 18:06:13 64 Years F Total Kt/V 2025-07-23 18:06:13 1.66 F Dialyzer CHING 2025-07-23 18:06:13 1264 Calc F Urea nitrogen [Mass/volume] in Serum or Plasma --post dialysis 2025-07-23 18:04:19 12 mg/dL F 9.0-23.0 Creatinine [Mass/volume] in Serum or Plasma 2025-07-23 16:16:14 9.72 mg/dL F 0.55-1.02 Urea nitrogen [Mass/volume] in Serum or Plasma 2025-07-23 16:16:14 55 mg/dL F 9.0-23.0 Creatinine [Mass/volume] in Serum or Plasma 2025-07-16 14:48:11 7.82 mg/dL F 0.55-1.02 Creatinine [Mass/volume] in Serum or Plasma 2025-07-09 14:20:14 8.31 mg/dL F 0.55-1.02 BSA ANIRUDH 2025-07-02 14:42:17 1.82 sq m F CRE CLR UR/BSA 2025-07-02 14:42:17 0 mL/min F 75.0-115.0 Creatinine [Mass/volume] in Serum or Plasma 2025-07-02 14:41:26 7.67 mg/dL F 0.55-1.02 BODY WEIGHT (LBS) 2025-07-01 20:58:38 164 lbs F HEIGHT IN INCHES 2025-07-01 20:58:38 65 Inches F Creatinine [Mass/volume] in Serum or Plasma 2025-06-25 17:20:26 7.23 mg/dL F 0.55-1.02 spKt/V 2025-06-18 18:53:26 1.62 F WEIGHT - POST DAY 1 2025-06-18 18:53:26 73.6 kg F stdKt/V (DIAL) 2025-06-18 18:53:26 N/A F Residual kt/v 2025-06-18 18:53:26 F PATIENT AGE 2025-06-18 18:53:26 64 Years F BSA ANIRUDH 2025-06-18 18:53:26 1.81 sq m F PRESCRIBED DAYS/WEEK 2025-06-18 18:53:26 3 Day/Wk F LENGTH OF DIALYSIS 2025-06-18 18:53:26 212 min F TOTAL HOURS/WEEK DIALYSIS 2025-06-18 18:53:26 6 hrs F CURRENT KRU 2025-06-18 18:53:26 F HEIGHT IN INCHES 2025-06-18 18:53:26 65 Inches F VT (KT/V TX VOL) 2025-06-18 18:53:26 35.2 L F TBW (Hernandez) 2025-06-18 18:53:26 33.7 Liters F Total Kt/V 2025-06-18 18:53:26 1.62 F stdKT/V Total 2025-06-18 18:53:26 N/A F BLOOD FLOW-QWB 2025-06-18 18:53:26 399 F WEIGHT (KG) 2025-06-18 18:53:26 74 kg F Std Renal KT/V 2025-06-18 18:53:26 N/A F VM (KT/V MEAN VOL) 2025-06-18 18:53:26 34 F Dialyzer CHING 2025-06-18 18:53:26 1264 Calc F nPCR 2025-06-18 18:53:26 0.51 G/KG/D F eKt/V 2025-06-18 18:53:26 1.37 F DIALYZER FLOW-QD 2025-06-18 18:53:26 500 mL/min F URR% 2025-06-18 18:53:26 77 % F WEIGHT - PRE DAY 1 2025-06-18 18:53:26 75.1 kg F AMPUTATE FACTOR 2025-06-18 18:53:26 0 F KT/V PRESCRIBED 2025-06-18 18:53:26 2.04 F Creatinine [Mass/volume] in Serum or Plasma 2025-06-18 18:51:25 7.7 mg/dL F 0.55-1.02 Urea nitrogen [Mass/volume] in Serum or Plasma 2025-06-18 18:51:25 30 mg/dL F 9.0-23.0 Urea nitrogen [Mass/volume] in Serum or Plasma --post dialysis 2025-06-18 17:40:26 7 mg/dL F 9.0-23.0 Creatinine [Mass/volume] in Serum or Plasma Anemia Description Draw Date Result/Unit Status Ref Range Result Comments IRON SATURATION 2025-09-04 00:31:35 15 % F 16.0-46.0 TIBC 2025-09-04 00:31:35 249 ug/dL F 250.0-425.0 Iron [Mass/volume] in Serum or Plasma 2025-09-04 00:26:06 37 ug/dL F 50.0-170.0 Iron binding capacity.unsaturated [Mass/volume] in Serum or Plasma 2025-09-04 00:26:06 212 ug/dL F 80.0-375.0 HCT CALC HGBX3 2025-09-03 20:39:10 34.5 % F 37.0-47.0 Hemoglobin [Mass/volume] in Blood 2025-09-03 20:38:06 11.5 g/dL F 12.0-16.0 Ferritin [Mass/volume] in Serum or Plasma 2025-09-03 19:57:19 274 ng/mL F 7.0-271.0 HCT CALC HGBX3 2025-08-20 19:29:10 31.8 % F 37.0-47.0 Hemoglobin [Mass/volume] in Blood 2025-08-20 19:28:13 10.6 g/dL F 12.0-16.0 HCT CALC HGBX3 2025-08-06 19:52:11 30.9 % F 37.0-47.0 Hemoglobin [Mass/volume] in Blood 2025-08-06 19:51:11 10.3 g/dL F 12.0-16.0 HCT CALC HGBX3 2025-07-23 15:18:13 30.3 % F 37.0-47.0 Hemoglobin [Mass/volume] in Blood 2025-07-23 15:17:15 10.1 g/dL F 12.0-16.0 IRON SATURATION 2025-07-02 23:07:49 15 % F 16.0-46.0 TIBC 2025-07-02 23:07:49 234 ug/dL F 250.0-425.0 Iron [Mass/volume] in Serum or Plasma 2025-07-02 22:57:22 35 ug/dL F 50.0-170.0 Iron binding capacity.unsaturated [Mass/volume] in Serum or Plasma 2025-07-02 22:57:22 199 ug/dL F 80.0-375.0 HCT CALC HGBX3 2025-07-02 15:16:06 26.1 % F 37.0-47.0 Hemoglobin [Mass/volume] in Blood 2025-07-02 15:15:13 8.7 g/dL F 12.0-16.0 Ferritin [Mass/volume] in Serum or Plasma 2025-07-02 15:08:25 483 ng/mL F 7.0-271.0 HCT CALC HGBX3 2025-06-18 22:45:22 25.8 % F 37.0-47.0 Hemoglobin [Mass/volume] in Blood 2025-06-18 22:44:19 8.6 g/dL F 12.0-16.0 FluidBP Description Draw Date Result/Unit Status Ref Range Result Comments Sodium [Moles/volume] in Serum or Plasma 2025-09-04 00:26:06 139 mEq/L F 136.0-145.0 Sodium [Moles/volume] in Serum or Plasma 2025-08-07 06:01:32 143 mEq/L F 136.0-145.0 Sodium [Moles/volume] in Serum or Plasma 2025-07-02 22:57:22 143 mEq/L F 136.0-145.0 General Description Draw Date Result/Unit Status Ref Range Result Comments Alanine aminotransferase [Enzymatic activity/volume] in Serum or Plasma 2025-09-03 18:32:16 10 U/L F 10.0-49.0 Alanine aminotransferase [Enzymatic activity/volume] in Serum or Plasma 2025-08-07 02:34:19 7 U/L F 10.0-49.0 Alanine aminotransferase [Enzymatic activity/volume] in Serum or Plasma 2025-07-02 14:41:26 13 U/L F 10.0-49.0 MineralBone Disorder Description Draw Date Result/Unit Status Ref Range Result Comments CA CORRECTED 2025-08-21 05:52:56 10 mg/dL F CA*PO4 CORRCTD 2025-08-21 05:49:38 59.1 Calc F 21.0-53.0 CA/PHOS PRODUCT 2025-08-21 05:49:38 57.2 Calc F 21.0-53.0 Calcium [Mass/volume] in Serum or Plasma 2025-08-21 05:32:07 9.7 mg/dL F 8.7-10.4 Phosphate [Mass/volume] in Serum or Plasma 2025-08-20 23:07:26 5.9 mg/dL F 2.4-5.1 Parathyrin.intact [Mass/volume] in Serum or Plasma 2025-08-20 21:05:14 1623 pg/mL F 18.0-80.0 CA CORRECTED 2025-08-07 06:04:36 10.1 mg/dL F Calcium [Mass/volume] in Serum or Plasma 2025-08-07 06:01:32 9.8 mg/dL F 8.7-10.4 CA CORRECTED 2025-07-24 02:01:57 10.5 mg/dL F CA*PO4 CORRCTD 2025-07-24 01:32:40 57.5 Calc F 21.0-53.0 CA/PHOS PRODUCT 2025-07-24 01:32:40 54.5 Calc F 21.0-53.0 Calcium [Mass/volume] in Serum or Plasma 2025-07-24 01:16:55 9.9 mg/dL F 8.7-10.4 Parathyrin.intact [Mass/volume] in Serum or Plasma 2025-07-23 19:33:15 2713 pg/mL F 18.0-80.0 Phosphate [Mass/volume] in Serum or Plasma 2025-07-23 16:16:14 5.5 mg/dL F 2.4-5.1 CA CORRECTED 2025-06-19 07:38:53 9.8 mg/dL F CA*PO4 CORRCTD 2025-06-19 07:36:16 34.2 Calc F 21.0-53.0 CA/PHOS PRODUCT 2025-06-19 07:36:16 32.6 Calc F 21.0-53.0 Calcium [Mass/volume] in Serum or Plasma 2025-06-19 07:03:46 9.3 mg/dL F 8.7-10.4 Parathyrin.intact [Mass/volume] in Serum or Plasma 2025-06-18 20:46:22 1230 pg/mL F 18.0-80.0 Phosphate [Mass/volume] in Serum or Plasma 2025-06-18 18:51:25 3.5 mg/dL F 2.4-5.1 Nutrition Description Draw Date Result/Unit Status Ref Range Result Comments Potassium [Moles/volume] in Serum or Plasma 2025-09-04 00:26:06 5.6 mEq/L F 3.5-5.1 Bicarbonate [Moles/volume] in Serum or Plasma 2025-09-03 18:32:16 25 mEq/L F 20.0-31.0 Albumin [Mass/volume] in Serum or Plasma by Bromocresol green (BCG) dye binding method 2025-09-03 18:32:16 3.8 g/dL F 3.2-4.8 Potassium [Moles/volume] in Serum or Plasma 2025-08-21 05:32:07 6.1 mEq/L F 3.5-5.1 Potassium [Moles/volume] in Serum or Plasma 2025-08-07 06:01:32 5.7 mEq/L F 3.5-5.1 Bicarbonate [Moles/volume] in Serum or Plasma 2025-08-07 02:34:19 27 mEq/L F 20.0-31.0 Albumin [Mass/volume] in Serum or Plasma by Bromocresol green (BCG) dye binding method 2025-08-07 02:34:19 3.6 g/dL F 3.2-4.8 Potassium [Moles/volume] in Serum or Plasma 2025-07-24 01:16:55 4.2 mEq/L F 3.5-5.1 Potassium [Moles/volume] in Serum or Plasma 2025-07-02 22:57:22 4.7 mEq/L F 3.5-5.1 Bicarbonate [Moles/volume] in Serum or Plasma 2025-07-02 14:41:26 29 mEq/L F 20.0-31.0 Albumin [Mass/volume] in Serum or Plasma by Bromocresol green (BCG) dye binding method 2025-07-02 14:41:26 3.3 g/dL F 3.2-4.8 Potassium [Moles/volume] in Serum or Plasma 2025-06-19 07:03:46 3.6 mEq/L F 3.5-5.1 Encounters No encounter information to report Immunizations Ordered Immunization Name Filled Immunization Name Date Status Comments Refusal Reason Influenza Vaccination 2025-06-24 05:00:00 TST-PPD intradermal 2025-05-15 16:47:31 TST-PPD intradermal 2025-04-17 18:01:00 Pneumococcal conjugate PCV20, polysaccharide [id number] conjugate, adjuvant, PF 2025-04-17 18:00:00 pneumococcal polysaccharide PPV23 2023-08-02 17:35:00 Hep B, adult 2023-07-28 18:48:00 Hepatitis B Vaccination 2023-05-17 05:00:00 TST-PPD intradermal 2023-04-26 18:49:00 Covid-19 Vaccination 2022-08-19 06:00:00 Influenza Vaccination 2022-08-19 06:00:00 Covid-19 Vaccination 2021-02-06 05:00:00 Covid-19 Vaccination 2021-01-09 05:00:00 Plan of Treatment Planned Activity Provider Planned Date Details Commen ts Future Scheduled Test Praful Colmenares 2025-10-10 06:00:00 Aluminum [Mass/volume] in Serum or Plasma [code = 5574-9] Diagnostic Test Pending Praful Colmenares 2025-08-10 05:00:00 Ferritin [Mass/volume] in Serum or Plasma [code = 2276-4] Diagnostic Test Pending Praful Colmenares 2025-05-10 05:00:00 Sodium [Moles/volume] in Serum or Plasma [code = 2951-2] Diagnostic Test Pending Praful Colmenares 2025-06-15 18:29:20 Bicarbonate [Moles/volume] in Serum or Plasma [code = 1963-8] Diagnostic Test Pending Praful Jonescell 2025-05-10 05:00:00 Albumin [Mass/volume] in Serum or Plasma by Bromocresol green (BCG) dye binding method [code = 96066-5] Diagnostic Test Pending Praful [facility]cell 2025-04-28 05:00:00 Hemoglobin [Mass/volume] in Blood [code = 718-7] [facility] [place] [facility]25-[facility]-10 05:00:00 Parathyrin.intact [Mass/volume] in Serum or Plasma [code = 2731-8] Diagnostic Test Pending Praful enrike [facility] 2025-05-10 05:00:00 Alanine aminotransferase [Enzymatic activity/volume] in Serum or Plasma [code = 1742-6] [facility] [place] 2025-04-21 05:00:00 Creatinine [Mass/volume] in Serum or Plasma [code = 2160-0] Diagnostic Test Pending Praful Arley [place] 2025-04-16 18:12:28 Potassium [Moles/volume] in Serum or Plasma [code = 2823-3] [facility]16:41 In-Center Hemodialysis Treatment [code = IZN851] [facility] Diet Calorie 30 kcal/kg Fluid Value 1000 mL/d Phosphorus Value 900 mg/d Potassium Value 3000 mg/d Protein Value 1.2 gm/kg Sodium Value 2000 mg/d Calculated Weight 67 kg dietary_diet_modification Carb Controlle d;
--- NOTE | 2025-09-10 15:19 | PC.NURSE ---
This RN spoke with pt. POA. Update provided. All questions answered.
--- NOTE | 2025-09-10 15:37 | PC.NURSE ---
[facility] called to transport pt back to facility ETA 35-40 mins.
[2025-09-10] MEDS: AZITHROMYCIN 500 MG TABLET PO (15:51)
--- NOTE | 2025-09-10 15:55 | ED.AMS ---
HPI - Altered Mental Status General Chief Complaint: Altered Mental Status Stated Complaint: ams Time Seen by Provider: 09/10/25 12:21 History of Present Illness HPI narrative: Patient presents here with potential altered mental status, she is a dialysis patient and last got dialysis yesterday, to me she is denying any complaints. Related Data Allergies Allergy/AdvReac Type Severity Reaction Status Date / Time lactose AdvReac Mild Gastrointestinal Verified 04/27/25 20:35 Upset Review of Systems Review of Systems: All systems reviewed & are unremarkable except as noted in HPI and below PMFSH Past Medical History Medical History Fall Acute right arterial ischemic stroke, MCA (middle cerebral artery) Chronic kidney disease, stage 5 Cancer of right breast (2004) Status post chemotherapy and mastectomy. Diabetic peripheral neuropathy Obesity (BMI 30-39.9) Essential hypertension End-stage renal disease on hemodialysis Chronic kidney disease due to hypertension and diabetes with final insult kidneys with severe rhabdomyolysis March 2023. Vitamin D deficiency Type 2 diabetes mellitus Anemia Normal colonoscopy (07/2011) Primary hyperparathyroidism (11/2020) Vaginal polyp Depression Anxiety Surgical History Surgical History History of right mastectomy History of hysteroscopy (2020) Family History Family History Mother Family history of lung cancer Hypertension Grandparent Cerebrovascular accident Diabetes mellitus Hypertension Son Family history of cardiovascular disease Heart disease Hypertension Father Unknown family medical history Social History Social History Social History: Surrogate decision maker: Adry Smith (sister). Code status: Full code. Smoking packs per day: 0.5 Smoking cigarettes per day: 10.0 Years smoked: 20 Smoking pack-years: 10.00 Smoking status: Former smoker Tobacco type: cigarettes Second hand tobacco smoke exposure: Yes Alcohol intake: never Alcohol use details: Very seldom Substance use: never Substance use type: does not use Lack of Transportation: No Lack of Food: Never True Current Housing: I Have Housing Concerned About Future Housing: No Difficulty Paying Gas/Electric Bills: No Difficulty Paying for Meds: No Currently Unemployed: No Education: High School Diploma/GED Difficulty w/ Childcare or Family Care: No Additional living arrangements comments: Lives in [place]. Additional occupation/education comments: Retired. Sexual Orientation (if Verbalized by the Patient): Straight or Heterosexual Spiritual care concerns: No Agree to blood products: Yes Exam Narrative: EXAMINATION OF ORGAN SYSTEMS/BODY AREAS: Constitutional: Vital signs per nursing GENERAL:[No acute distress, non-toxic appearing.] HEAD: Normal with no signs of head trauma. EYES: EOMI, conjunctiva normal ENT: Hearing grossly intact LUNGS: Nonlabored breathing. Coughing frequently. HEART: [Regular rate and rhythm] ABD: [Soft], [nontender to palpation] EXT: Normal range of motion SKIN: [No rashes or lesions.] NEURO: [Alert. No gross focal sensory or strength deficits.] PSYCH: Normal affect Course Vital Signs Vital signs: Vital Signs Temperature 98.1 F 09/10/25 11:48 Pulse Rate 80 09/10/25 11:48 Respiratory Rate 16 09/10/25 11:48 Blood Pressure 142/80 H 09/10/25 11:48 Pulse Oximetry 100 09/10/25 11:48 Oxygen Delivery Room Air 09/10/25 11:48 Temperature 98.1 F 09/10/25 11:48 Pulse Rate 81 09/10/25 13:45 Respiratory Rate 16 09/10/25 13:45 Blood Pressure 142/80 H 09/10/25 11:48 Pulse Oximetry 97 09/10/25 13:45 Oxygen Delivery Room Air 09/10/25 11:59 MDM MDM Narrative Medical decision making narrative: 65-year-old female ESRD on dialysis presenting here with potential altered mental status, although at baseline she is confused per long term. She is unable to tell me her name or why she is here but she does deny chest pain, shortness of breath, nausea vomiting, headache, or anything else. She is coughing while I am in the room but in no respiratory distress and vital signs are normal. Infectious workup was initiated along with blood work, this shows a good baseline labs, chest x-ray does show possible pneumonia, so I will start her on antibiotics, CT head is unremarkable. Stable for discharge back to her long term with return precautions and follow-up to PCP. Differential Diagnosis Differential Diagnosis: Infection, CVA, dementia Lab Data 09/10/25 12:07 09/10/25 12:07 Labs: Lab Results 09/10/25 09/10/25 Range/Units 12:07 12:27 WBC 9.5 (4.5-10.0) K/mm3 RBC 4.06 L (4.2-5.4) M/mm3 Hgb 11.8 L D (12.0-15.0) g/dL Hct 37.6 (37.0-47.0) % MCV 92.6 (80-100) fl MCH 29.1 (26-34) pg MCHC 31.4 L (32-36) g/dl RDW 15.5 H (11.5-14.5) % Plt Count 351 (150-375) k/mm3 MPV 9.5 (7.4-10.4) fl Immature Gran % (Auto) 0.2 (0-0.5) % Neut % (Auto) 60.5 (45.5-73.1) % Lymph % (Auto) 22.9 (18.3-44.2) % [place] % (Auto) 10.4 H (2.6-8.5) % Eos % (Auto) 5.1 H (0-4.4) % Baso % (Auto) 0.9 (0.2-1.2) % Lymph # (Auto) 2.17 (0.9-3.2) K/mm3 [place] # (Auto) 1.0 H (0.1-0.6) K/mm3 Eos # (Auto) 0.5 H (0-0.3) K/mm3 Baso # (Auto) 0.1 (0.0-0.1) K/mm3 Abs Immat Gran (auto) 0.02 (0.00-0.031) K/mm3 Absolute Neuts (auto) 5.7 (1.3-6.7) K/mm3 Absolute Nucleated RBC 0.000 (0.0-0.012) K/mm3 Nucleated RBC % 0.0 (0.0-0.2) % PT 13.9 (11.1-14.7) Seconds INR 1.1 APTT 31.1 (22.3-36.8) Seconds Sodium 135 L (137-145) mmol/L Potassium 5.5 H (3.4-5.0) mmol/L Chloride 98 (98-107) mmol/L Carbon Dioxide 30 (22-30) mmol/L Anion Gap 7 (4-12) mmol/L BUN 47 H D (7-17) mg/dL Creatinine 8.48 H (0.7-1.0) mg/dL Estim Creat Clear Calc Not Reportable Estimated GFR 5 L (59 - ) Glucose 87 (65-110) mg/dL Calcium 10.8 H (8.4-10.2) mg/dL Total Bilirubin 0.6 (0.2-1.3) mg/dL AST 22 (14-36) U/L ALT 9 (6-35) U/L Alkaline Phosphatase 135 H (38-126) U/L Total Protein 7.8 (6.3-8.2) g/dL Albumin 4.1 (3.5-5.1) g/dL Urine Color Yellow (Yellow) Urine Appearance Clear (Clear) Urine pH 8.5 (5.0-9.0) Ur Specific [place] 1.008 (1.001-1.035) Urine Protein 3+ H (Negative) mg/dL Urine Glucose (UA) Negative (Negative) mg/dL Urine Ketones Negative (Negative) mg/dL Ur Blood (Man) Trace (Negative) Urine Nitrate Negative (Negative) Urine Bilirubin Negative (Negative) Urine Urobilinogen 0.2 (<2.0) mg/dL Leukocyte Esterase Rfl 3+ H (Negative) RAJI/UL Urine RBC 0-2 (0-2) /hpf Urine WBC 51-100 H (0-3) /hpf Ur Squamous Epith Cells None seen (Few) /hpf Urine Bacteria None seen /hpf Urine Casts 0-2 Imaging Data Radiologist's impression: ITS Impressions Head CT 09/10/25 13:38 IMPRESSION: 1. No acute intracranial abnormality. 2: Chronic left frontal and right parietal lobe infarctions. 3: Pansinusitis. 4: Chronic age-related findings. Chest X-Ray 09/10/25 14:45 IMPRESSION: 1: Possible right upper lobe airspace disease, suspicious for pneumonia. Discharge Plan Discharge Clinical Impression: Pneumonia, AMS (altered mental status) Patient Disposition: NH Shelter/Asst Living Condition: Stable Instructions: Antibiotic Form, Altered Mental Status (ED), Pneumonia (ED) Additional Instructions: Please follow up with your doctor; take the antibiotics as prescribed. You can always return for any further issues. Patient Language: Irish Prescriptions: New azithromycin 250 mg tablet 250 mg PO DAILY 4 Days Qty: 4 0RF Rx Instructions: start on day 2 of therapy amoxicillin-pot clavulanate 875-125 mg tablet 1 tablet PO Q12H Qty: 10 0RF No Action atorvastatin 40 mg Tablet 40 mg PO DAILY Qty: 30 0RF clopidogrel 75 mg Tablet 75 mg PO QAM Qty: 30 0RF aspirin 81 mg Tablet,Delayed Release (Dr/Ec) 81 mg PO QAM Qty: 30 0RF cinacalcet [Sensipar] 30 mg Tablet 30 mg PO Q24H Qty: 30 0RF lisinopril 20 mg Tablet 20 mg PO QAM Qty: 30 0RF sodium bicarbonate 650 mg Tablet 1,300 mg PO BIDPC Qty: 60 0RF carvedilol 12.5 mg tablet 12.5 mg PO Q12H Qty: 180 3RF Rx Instructions: must administer with a meal/food venlafaxine 150 mg capsule,extended release 24hr See Rx Instructions .ROUTE .COMPLEX Qty: 90 1RF Dose Instruction: TAKE 1 CAPSULE BY MOUTH DAILY Rx Instructions: TAKE 1 CAPSULE BY MOUTH DAILY Follow-up/Referrals: Monster Garza MD [Primary Care Provider, Family Practice]
--- NOTE | 2025-09-10 16:26 | PC.NURSE ---
Report called to SANEDR Wolf at [facility].
== END 2025-09-10 16:30 ==
PROVIDERS: Emergency Provider Emergency Medicine; PCP Family Medicine Adolescent Medicine
DX: J18.9 Pneumonia, unspecified organism (principal); R41.82 Altered mental status, unspecified; E11.22 Type 2 diabetes mellitus with diabetic chronic kidney disease; I12.0 Hypertensive chronic kidney disease with stage 5 chronic kidney disease or end stage renal disease; N18.6 End stage renal disease; Z99.2 Dependence on renal dialysis; E11.42 Type 2 diabetes mellitus with diabetic polyneuropathy; E55.9 Vitamin D deficiency, unspecified; E21.0 Primary hyperparathyroidism; F32.A Depression, unspecified; F41.9 Anxiety disorder, unspecified; Z85.3 Personal history of malignant neoplasm of breast; Z87.891 Personal history of nicotine dependence; Z86.73 Personal history of transient ischemic attack (TIA), and cerebral infarction without residual deficits; Z90.11 Acquired absence of right breast and nipple; J32.4 Chronic pansinusitis; R94.31 Abnormal electrocardiogram [ECG] [EKG]; Z79.82 Long term (current) use of aspirin; Z79.02 Long term (current) use of antithrombotics/antiplatelets; Z79.899 Other long term (current) drug therapy
CPT/HCPCS: 36415; 70450; 71045; 80053; 81001; 85025; 85610; 85730; 87086; 93005; 96365; 99284; J0696

== ENCOUNTER 2025-09-16 14:48 | Emergency (ER) | payer MEDICARE, MEDICAID, SELFPAY ==
[2025-09-16 14:53] VITALS: BP 140/88; PULSE 88; RESP 16; TEMP 36.8; O2SAT 95
--- NOTE | 2025-09-16 14:54 | ECG_ITS ---
Test Date: 2025-09-16 15:00:36 Measurements Intervals [place] Rate: 87 P: 47 MO: 191 QRS: -17 QRSD: 75 T: 60 QT: 363 QTc: 437 Interpretive Statements SINUS RHYTHM POSSIBLE LEFT ATRIAL ENLARGEMENT ANTEROSEPTAL MYOCARDIAL INFARCTION , PROBABLY OLD BORDERLINE ST-T WAVE ABNORMALITY- HIGH LATERAL LEADS BASELINE ARTIFACT- I, II, AVR, AVL, AVF, V1-V6 ABNORMAL ECG Compared to ECG 09/10/2025 12:05:50 No significant changes Electronically Signed On 09-16-2025 15:15:20 NEUROLOGY PHYSICIAN ASSISTANT by Chuck Nava D.O.
[2025-09-16 15:00] VITALS: PULSE 89
[2025-09-16 15:14] LABS: Hematocrit 39.0 % (37.0-47.0); Hemoglobin 12.5 g/dL (12.0-15.0); Immature Granulocyte Percent A 0.4 % (0-0.5); Lymphocytes Absolute Auto 1.46 K/mm3 (0.9-3.2); Mean Corpuscular HGB Conc 32.1 g/dl (32-36); Mean Corpuscular Hemoglobin 28.9 pg (26-34); Mean Corpuscular Volume 90.1 fl (80-100); Nucleated Red Blood Cells Absolute Auto 0.000 K/mm3 (0.0-0.012); Nucleated Red Blood Cells Perc 0.0 % (0.0-0.2); Platelet Count Result 278 k/mm3 (150-375); Red Blood Count 4.33 M/mm3 (4.2-5.4); White Blood Count 8.5 K/mm3 (4.5-10.0)
[2025-09-16 15:37] LABS: Alanine Aminotransferase 18 U/L (6-35); Albumin Level 4.1 g/dL (3.5-5.1); Alkaline Phosphatase 144 U/L (38-126); Anion Gap 9 mmol/L (4-12); Aspartate Amino Transferase 34 U/L (14-36); Bilirubin,Total 0.8 mg/dL (0.2-1.3); Blood Urea Nitrogen 32 mg/dL (7-17); Calcium 10.4 mg/dL (8.4-10.2); Carbon Dioxide 29 mmol/L (22-30); Chloride 96 mmol/L (98-107); Estimated CRCL calculation 8 ml/min; Estimated Glomerular Filt Rate 6; Glucose 137 mg/dL (65-110); Potassium 3.9 mmol/L (3.4-5.0); Sodium 134 mmol/L (137-145); Total Protein 7.8 g/dL (6.3-8.2)
--- NOTE | 2025-09-16 15:44 | ED_ITS ---
HPI - Altered Mental Status General Chief Complaint: Altered Mental Status Stated Complaint: momentary LOC Time Seen by Provider: 09/16/25 14:54 History of Present Illness HPI narrative: Patient presents here reportedly had a loss of consciousness while she was getting dialysis done, to me she is denying any complaints whatsoever. Related Data Allergies Allergy/AdvReac Type Severity Reaction Status Date / Time lactose AdvReac Mild Gastrointestinal Verified 04/27/25 20:35 Upset Review of Systems 2 Review of Systems: All systems reviewed & are unremarkable except as noted in HPI and below PMFSH Past Medical History Medical History Fall Acute right arterial ischemic stroke, MCA (middle cerebral artery) Chronic kidney disease, stage 5 Cancer of right breast (2004) Status post chemotherapy and mastectomy. Diabetic peripheral neuropathy Obesity (BMI 30-39.9) Essential hypertension End-stage renal disease on hemodialysis Chronic kidney disease due to hypertension and diabetes with final insult kidneys with severe rhabdomyolysis March 2023. Vitamin D deficiency Type 2 diabetes mellitus Anemia Normal colonoscopy (07/2011) Primary hyperparathyroidism (11/2020) Vaginal polyp Depression Anxiety Surgical History Surgical History History of right mastectomy History of hysteroscopy (2020) Family History Family History Mother Family history of lung cancer Hypertension Grandparent Cerebrovascular accident Diabetes mellitus Hypertension Son Family history of cardiovascular disease Heart disease Hypertension Father Unknown family medical history Social History Social History Social History: Surrogate decision maker: Adry Smith (sister). Code status: Full code. Smoking packs per day: 0.5 Smoking cigarettes per day: 10.0 Years smoked: 20 Smoking pack-years: 10.00 Smoking status: Former smoker Tobacco type: cigarettes Second hand tobacco smoke exposure: Yes Alcohol intake: never Alcohol use details: Very seldom Substance use: never Substance use type: does not use Lack of Transportation: No Lack of Food: Never True Current Housing: I Have Housing Concerned About Future Housing: No Difficulty Paying Gas/Electric Bills: No Difficulty Paying for Meds: No Currently Unemployed: No Education: High School Diploma/GED Difficulty w/ Childcare or Family Care: No Additional living arrangements comments: Lives in [place]. Additional occupation/education comments: Retired. Sexual Orientation (if Verbalized by the Patient): Straight or Heterosexual Spiritual care concerns: No Agree to blood products: Yes Exam 2 Narrative: EXAMINATION OF ORGAN SYSTEMS/BODY AREAS: Constitutional: Vital signs per nursing GENERAL:[No acute distress, non-toxic appearing.] HEAD: Normal with no signs of head trauma. EYES: EOMI, conjunctiva normal ENT: Hearing grossly intact LUNGS: Nonlabored breathing. HEART: [Regular rate and rhythm] ABD: [Soft], [nontender to palpation] EXT: Normal range of motion SKIN: [No rashes or lesions.] NEURO: [Alert. No gross focal sensory or strength deficits.] PSYCH: Normal affect Course Vital Signs Vital signs: Vital Signs Temperature 98.3 F 09/16/25 14:53 Pulse Rate 88 09/16/25 14:53 Respiratory Rate 16 09/16/25 14:53 Blood Pressure 140/88 09/16/25 14:53 Pulse Oximetry 95 09/16/25 14:53 Oxygen Delivery Room Air 09/16/25 14:53 Temperature 98.3 F 09/16/25 14:53 Pulse Rate 85 09/16/25 15:45 Respiratory Rate 16 09/16/25 15:45 Blood Pressure 130/75 09/16/25 15:45 Pulse Oximetry 100 09/16/25 15:45 Oxygen Delivery Room Air 09/16/25 14:53 MDM MDM Narrative Medical decision making narrative: Patient presenting here with possible after mental status she versus loss of consciousness while at dialysis. On exam she is very well appearing, vital signs normal, she is answering questions appropriately, and O x1 which is around her baseline and how I had seen her while she was here week ago. Labs within her baseline limits EKG - 12-Lead: Performed at 1500. Interpreted by me. [Sinus rhythm]. Rate 87. [Normal] axis. CT-interval [normal]. QRS duration [normal]. QTc [normal]. [No ST segment elevation or depression]. [T-wave normal]. Impression: No EKG evidence of acute ischemia or dysrhythmia. She has been observed here for several hours without any further issues. Stable for discharge with follow-up to PCP return precautions Differential Diagnosis Differential Diagnosis: Seizure, ischemia or arrhythmia, syncope, etc. Lab Data 09/16/25 15:08 09/16/25 15:08 Labs: Lab Results 09/16/25 09/16/25 Range/Units 14:59 15:08 WBC 8.5 (4.5-10.0) K/mm3 RBC 4.33 (4.2-5.4) M/mm3 Hgb 12.5 (12.0-15.0) g/dL Hct 39.0 (37.0-47.0) % MCV 90.1 (80-100) fl MCH 28.9 (26-34) pg MCHC 32.1 (32-36) g/dl RDW 14.8 H (11.5-14.5) % Plt Count 278 (150-375) k/mm3 MPV 10.0 (7.4-10.4) fl Immature Gran % (Auto) 0.4 (0-0.5) % Neut % (Auto) 71.6 (45.5-73.1) % Lymph % (Auto) 17.1 L (18.3-44.2) % [place] % (Auto) 7.4 (2.6-8.5) % Eos % (Auto) 2.9 (0-4.4) % Baso % (Auto) 0.6 (0.2-1.2) % Lymph # (Auto) 1.46 (0.9-3.2) K/mm3 [place] # (Auto) 0.6 (0.1-0.6) K/mm3 Eos # (Auto) 0.3 (0-0.3) K/mm3 Baso # (Auto) 0.1 (0.0-0.1) K/mm3 Abs Immat Gran (auto) 0.03 (0.00-0.031) K/mm3 Absolute Neuts (auto) 6.1 (1.3-6.7) K/mm3 Absolute Nucleated RBC 0.000 (0.0-0.012) K/mm3 Nucleated RBC % 0.0 (0.0-0.2) % Sodium 134 L (137-145) mmol/L Potassium 3.9 (3.4-5.0) mmol/L Chloride 96 L (98-107) mmol/L Carbon Dioxide 29 (22-30) mmol/L Anion Gap 9 (4-12) mmol/L BUN 32 H D (7-17) mg/dL Creatinine 6.43 H (0.7-1.0) mg/dL Estim Creat Clear Calc 8 ml/min Estimated GFR 6 L (59 - ) Glucose 137 H (65-110) mg/dL POC Capillary Glucose 127 H (65-105) mg/dl Calcium 10.4 H (8.4-10.2) mg/dL Total Bilirubin 0.8 (0.2-1.3) mg/dL AST 34 (14-36) U/L ALT 18 (6-35) U/L Alkaline Phosphatase 144 H (38-126) U/L Total Protein 7.8 (6.3-8.2) g/dL Albumin 4.1 (3.5-5.1) g/dL Discharge Plan Discharge Clinical Impression: Transient alteration of awareness Patient Disposition: NH Penitentiary/Asst Living Condition: Stable Instructions: Syncope (ED) Additional Instructions: Your workup today did not show anything out of the ordinary, thankfully. Please follow-up with your regular doctors and if your symptoms return or worsen, please come back to the emergency room. Patient Language: Danish Prescriptions: No Action atorvastatin 40 mg Tablet 40 mg PO DAILY Qty: 30 0RF clopidogrel 75 mg Tablet 75 mg PO QAM Qty: 30 0RF aspirin 81 mg Tablet,Delayed Release (Dr/Ec) 81 mg PO QAM Qty: 30 0RF cinacalcet [Sensipar] 30 mg Tablet 30 mg PO Q24H Qty: 30 0RF lisinopril 20 mg Tablet 20 mg PO QAM Qty: 30 0RF sodium bicarbonate 650 mg Tablet 1,300 mg PO BIDPC Qty: 60 0RF azithromycin 250 mg tablet 250 mg PO DAILY 4 Days Qty: 4 0RF Rx Instructions: start on day 2 of therapy amoxicillin-pot clavulanate 875-125 mg tablet 1 tablet PO Q12H Qty: 10 0RF carvedilol 12.5 mg tablet 12.5 mg PO Q12H Qty: 180 3RF Rx Instructions: must administer with a meal/food venlafaxine 150 mg capsule,extended release 24hr See Rx Instructions .ROUTE .COMPLEX Qty: 90 1RF Dose Instruction: TAKE 1 CAPSULE BY MOUTH DAILY Rx Instructions: TAKE 1 CAPSULE BY MOUTH DAILY Follow-up/Referrals: Monster Garza MD [Primary Care Provider, Family Practice]
[2025-09-16 15:45] VITALS: BP 130/75; PULSE 85; RESP 16; O2SAT 100
--- NOTE | 2025-09-18 02:07 | PC.NURSE ---
Pt's wheelchair and gait belt found in hallway, along with envelopes containing $4. Phone call placed to [employer] to have someone pickle maker in the morning. Items given to security.
== END 2025-09-16 16:30 ==
LOC: ANHED 15:46
PROVIDERS: Emergency Provider Emergency Medicine; PCP Family Medicine Adolescent Medicine
DX: R40.4 Transient alteration of awareness (principal); I12.0 Hypertensive chronic kidney disease with stage 5 chronic kidney disease or end stage renal disease; E11.22 Type 2 diabetes mellitus with diabetic chronic kidney disease; N18.6 End stage renal disease; Z99.2 Dependence on renal dialysis; E11.42 Type 2 diabetes mellitus with diabetic polyneuropathy; D64.9 Anemia, unspecified; E21.3 Hyperparathyroidism, unspecified; F41.9 Anxiety disorder, unspecified; F32.A Depression, unspecified; Z85.3 Personal history of malignant neoplasm of breast; Z79.82 Long term (current) use of aspirin; Z79.899 Other long term (current) drug therapy; Z79.02 Long term (current) use of antithrombotics/antiplatelets; Z92.21 Personal history of antineoplastic chemotherapy; Z92.3 Personal history of irradiation; Z86.73 Personal history of transient ischemic attack (TIA), and cerebral infarction without residual deficits; Z90.11 Acquired absence of right breast and nipple; R94.31 Abnormal electrocardiogram [ECG] [EKG]
CPT/HCPCS: 36415; 80053; 82948; 85025; 93005; 99283

== ENCOUNTER 2025-10-01 18:24 | Inpatient (IN) | payer MEDICARE, MEDICAID, SELFPAY ==
--- OUTSIDE RECORDS SUMMARY | 2025-09-19 22:05 | XMS_ITS | Encounter Summary ---
Author Organization [facility] Address [address] [place] [address] Care Team Providers Care Clinical Mental Health Counselor Name Role Phone Monster Garza MD Primary Care Provider + Reason for Referral * Evaluate (Routine) - Open Specialty Diagnoses / Procedures Referred By Contact Referred To Contact ENT-Otolaryngology Diagnoses Secondary hyperparathyroidism (HCC) Cherelle Islas DO [address] [place] [address] Phone: tel:[phone] fax:[phone] [facility] [address] [place] [phone] Phone: tel: fax: Referral ID Status Reason Start Date Expiration Date V isits Requested Visits Authorized [id number] Open Specialty Services Required 09/30/2025 09/30/2026 1 1 AL HUMANE AGENT SUPERVISOR * Evaluate & Treat (Routine) - Closed Specialty Diagnoses / Procedures Referred By Rodrigo leon Referred To Contact Nephrology Diagnoses Secondary hyperparathyroidism (HCC) Columba Blanc MD [address] [place] [address] Phone: tel: fax: [facility] [address] [place] [phone] Phone: tel: fax: Referral ID Status Reason Start Date Expiration Date V isits Requested Visits Authorized [id number] Closed Specialty Services Required 09/24/2025 09/24/2026 1 1 AL HUMANE AGENT SUPERVISOR * Evaluate (Routine) - Open Specialty Diagnoses / Procedures Referred By Contact Referred To Contact ENT-Otolaryngology Diagnoses Secondary hyperparathyroidism (HCC) Columba Blanc MD [address] [place] [address] Phone: tel:[phone] fax:[phone] [facility] [address] [place] [phone] Phone: tel: fax: Referral ID Status Reason Start Date Expiration Date V isits Requested Visits Authorized [id number] Open Specialty Services Required 09/24/2025 09/24/2026 1 1 AL HUMANE AGENT SUPERVISOR Reason for Visit * Auth/Cert Specialty Diagnoses / Procedures Referred By Contac t Referred To Contact Diagnoses ischemic stroke Referral ID Status Reason Start Date Expiration Date Visits Re quested Visits Authorized [id number] 1 1 Encounter Details Date Type Department Care Team (Latest Contact Info) Description 09/19/2025 10:05 PM ANIMAL HUMANE AGENT SUPERVISOR - 09/30/2025 9:43 PM ANIMAL HUMANE AGENT SUPERVISOR Hospital Encounter [facility] [address] [place] [id number] Tae Fisehr MD [facility] [place] [address] Columba Blanc MD [address] [place] [address] Cherelle Islas DO [address] [place] [address] Neurology Discharge Disposition: Detention Facility Social History Tobacco Use Types Packs/Day Years Used Date Smoking Tobacco: Never Smokeless Tobacco: Never Alcohol Use Standard Drinks/Week Comments Not Currently [...] and heating? Not hard at all 04/30/2025 [facility] - Occupational Stress Questionnaire Answer Date Recorded [...] any time in the past 12 m [facility], were you homeless or living in a nursing home (including now)? No 04/30/2025 Comments Unknown Sex and Gender Information Value Date Recorded Sex Assigned at Not on file Legal Sex Female 9:52 AM CDT Gender Identity Not on file Sexual Orientation Not on file documented as of this encounter Last Filed Vital Signs Vital Sign Reading Time Taken Comments Blood Pressure 115/76 09/30/2025 8:48 PM ANIMAL HUMANE AGENT SUPERVISOR Pulse 103 09/30/2025 8:48 PM ANIMAL HUMANE AGENT SUPERVISOR Temperature 36.5 C (97.7 F) 09/30/2025 8:48 PM ANIMAL HUMANE AGENT SUPERVISOR Respiratory Rate 16 09/30/2025 8:48 PM ANIMAL HUMANE AGENT SUPERVISOR Oxygen Saturation 99% 09/30/2025 9:12 PM ANIMAL HUMANE AGENT SUPERVISOR Inhaled Oxygen Concentration - - Weight 70 kg (154 lb 6.4 oz) 09/29/2025 11:05 AM ANIMAL HUMANE AGENT SUPERVISOR Height 165.1 cm (5' 5) 09/20/2025 8:00 AM ANIMAL HUMANE AGENT SUPERVISOR Body Mass Index 25.69 09/20/2025 8:00 AM ANIMAL HUMANE AGENT SUPERVISOR documented in this encounter Functional Status * Is person deaf or have serious hearing difficulty? Answer Date of Assessment Author No 04/30/2025 3:07 PM Abril Gaona RN * Is person blind or have serious difficulty seeing? Answer Date of Assessment Author No 04/30/2025 3:07 PM Abril Gaona RN * Does person have serious difficulty walking/climbing stairs? Answer Date of Assessment Author Yes 04/30/2025 3:07 PM Abril Gaona RN * Does person have difficulty dressing/bathing? Answer Date of Assessment Author Yes 04/30/2025 3:07 PM Abril Gaona RN * Does person have difficulty doing errands alone? Answer Date of Assessment Author Yes 04/30/2025 3:07 PM Abril Gaona RN documented as of this encounter Mental Status * Does person have difficulty concentrating/remembering/making decisions? Answer Entry Date Author Yes 04/30/2025 3:07 PM Abril Gaona RN documented in this encounter Discharge Summaries * Cherelle Islas DO - 09/30/2025 1:23 PM CST Images from the original note were not included. [facility] Internal Medicine Discharge Summary Name: Gena Pierre Room/Bed: 9915/1 : 1960 65 year old PCP: Monster Garza MD Admit Date/Time: 09/19/2025 10:05 PM LOS: 11 Date of discharge: 09/30/25 Code status at time of discharge: NO CPR(DNR) NO INTUBATION Patient condition at time of discharge: Stable Discharge Diagnosis History of ischemic right MCA stroke (POA: Yes) ESRD (end stage renal disease) (HCC) (POA: Yes) Primary hypertension (POA: Yes) Type 2 diabetes mellitus with unspecified complications (HCC) (POA: Yes) Secondary hyperparathyroidism (HCC) (POA: Yes) Ischemic stroke (HCC) (POA: Yes) Hx of major depression (POA: Yes) Hospital Course Gena Pierre is a 65-year-old female with a history of end-stage renal disease on hemodialysis, type 2 diabetes mellitus, hypertension, prior right MCA ischemic stroke, hyperparathyroidism, and breast cancer, who was admitted for acute altered mental status and aphasia. On presentation, she was noted to have severe expressive and receptive aphasia, confusion, and chronic left-sided weakness. Initial workup included non-contrast head CT, which showed chronic infarcts but no acute hemorrhage, andMRI brain, which revealed a new left frontal subcortical infarct with evidence of chronic small vessel ischemic changes and prior right parietal infarct. 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 Diagnostic cerebral angiogram showed multiple alternating areas of moderate to severe stenosis with a beading pattern in both anterior and posterior circulations. Rheumatology was consulted, and after multidisciplinary discussion and review of prior negative vasculitis workup, the etiology was determined to be most consistent with multifocal intracranial atherosclerosis rather than primary QUALITY MANAGEMENT NURSE vasculitis; repeat lumbar puncture was not pursued. For secondary stroke prevention, clopidogrel was discontinued and she was transitioned to ticagrelor in addition to aspirin. Atorvastatin was increased to high-intensity dosing. Blood pressure was managed with carvedilol, and amlodipine was discontinued due to adequate control. During her admission, she continued her chronic hemodialysis schedule, with nephrology following for volume and electrolyte management. ENT evaluation and sestamibi scan were recommended for outpatient workup of hyperparathyroidism, ENT outpatient referral placed. At discharge, she was transferred to a senior living facility with a right IJ tunneled dialysis catheter in place, on a regimen of aspirin, ticagrelor, atorvastatin, carvedilol, cinacalcet, and venlafaxine, with ongoing needs for hemodialysis, multidisciplinary rehabilitation, and nutritional support. Problem List/Plan of Care at Time of Discharge History of ischemic right MCA stroke Present on Admission: Yes Ischemic stroke (HCC) Present on Admission: Yes -Initially admitted to stroke team found to have ischemic stroke, continue aspirin 81mg, Brilinta 90 mg started this admission, Lipitor increased from 40 to 80 mg -PT OT recommending SNF ESRD (end stage renal disease) (HCC) Present on Admission: Yes Secondary hyperparathyroidism (HCC) Present on Admission: Yes -Nephrology following for maintenance dialysis Primary hypertension Present on Admission: Yes -Continue Coreg 25 mg twice daily Type 2 diabetes mellitus with unspecified complications (HCC) Present on Admission: Yes -A1c 4.5 -Discontinue Accu-Cheks and sliding scale insulin, will monitor glucose on daily labs Hx of major depression Present on Admission: Yes -Continue home Effexor Severe protein-calorie malnutrition (HCC) Present on Admission: Not yet determined - Nutrition consulted and followed throughout admission Follow-up Summary Future Appointments October 31, 2025 1:00 AM (Arrive by 12:45 AM) Appointment with YULIYA SOTO at [facility] - Cardiology ([phone]) [facility] [address] November 21, 2025 10:30 AM (Arrive by 10:15 AM) Appointment with Debi Carmen at [facility] Physician [facility] - Neurology ([phone]) [address] [address] December 05, 2025 1:00 AM (Arrive by 12:45 AM) Appointment with YULIYA SOTO at [facility] - Cardiology ([phone]) [id number] [facility] [address] January 09, 2026 1:00 AM (Arrive by 12:45 AM) Appointment with YULIYA SMITHLINK at [facility] - Cardiology ([phone]) [address] [facility] [facility] [address] February 13, 2026 1:00 AM (Arrive by 12:45 AM) Appointment with [facility] MARCO CARELINK at [facility] - Cardiology ([phone]) [address] [facility] [place] [address] [facility] [address] March 20, 2026 1:00 AM (Arrive by 12:45 AM) Appointment with [facility] MARCO CARELINK at [facility] Cardiology ([phone]) [address] [facility] [place] [address] [facility] [address] As directed Outpatient Referral: Ref to ENT Otolaryngology - [facility] As directed Outpatient Referral: Ref to Nephrology - [facility] Medication Updates: Plavix transition to Brilinta Atorvastatin increased to 80 mg, Coreg increased to 25 mg, cinacalcet increased to 60 mg Post discharge follow up tasks/Incidental Findings: Follow-up with ENT as an outpatient for workup for possible parathyroidectomy Discharge Destination: Facility. Diet: Current Diet Order Start 09/26/25 0845 DIET RENAL Question Answer Comment Tray Type: SELF SELECT Feeding Instructions ASSIST W/MEALS Sodium (Amount): 2300 MG SODIUM Phosphorus (MG): 1500MG PHOSPHORUS Potassium (MG): 2000MG POTASSIUM 09/24/25 1100 DIETARY NUTRITION SUPPLEMENTS Question Answer Comment Frequency: ONCE DAILY LUNCH Supplement: NEPRO (RENAL SUPPLEMENT) Activity Orders/Mobility Devices at time of discharge: As tolerated Respiratory Device/Setting at Time of Discharge: On Room Air Lines at time of discharge: Puncture Site Radial (Active) Date/Time: 09/20/25 1028 Placed by: Amandeep Hong Orientation: Right Puncture Site Location: Radial Puncture Type: Arterial Number of days: 10 Hemodialysis Tunneled Catheter Subclavian (Active) No placement date or time found. Dialysis Tunneled Catheter Location: Subclavian Hemodialysis Cath Orientation: Right Number of days: Wound Care Instructions: N/A Puncture Site Radial (Active) Date/Time: 09/20/25 1028 Placed by: Amandeep Hong Orientation: Right Puncture Site Location: Radial Puncture Type: Arterial Assessments 09/20/2025 7:27 AM 09/24/2025 8:08 PM Site Assessment WDL WDL Dressing Status -- Clean, Dry, Intact No associated orders. Emergency Contacts: Extended Emergency Contact Information Primary Emergency Contact: Adry Smith Mobile Relation: Cousin Shotgun Shell Reprinting Unit Operator needed? No Secondary Emergency Contact: Alberta Pierre Mobile Relation: Sister Shotgun Shell Reprinting Unit Operator needed? No Discharge Medications Allergies[1] Medication List START taking these medications ticagrelor 90 MG tablet Commonly known as: Brilinta Take 1 (one) tablet by mouth 2 times daily CHANGE how you take these medications atorvastatin 80 MG tablet Commonly known as: Lipitor Take 1 (one) tablet by mouth at bedtime What changed: medication strength how much to take carvedilol 25 MG tablet Commonly known as: Coreg Take 1 (one) tablet by mouth 2 times daily with morning and evening meal What changed: medication strength how much to take cinacalcet 30 MG tablet Commonly known as: Sensipar Take 2 (two) tablets by mouth daily with breakfast What changed: how much to take CONTINUE taking these medications acetaminophen 325 MG tablet Commonly known as: Tylenol Take 2 (two) tablets by mouth every 6 hours as needed Maximum allowable Acetaminophen amount = 4 Grams (4000 mg) / 24 hours. aspirin 81 MG chew tablet Commonly known as: Aspirin Take 1 (one) tablet by mouth once daily (chew and swallow) folic acid 1 MG tablet Commonly known as: Folvite Take 1 (one) tablet by mouth once daily OneTouch Verio test strip Generic drug: blood glucose venlafaxine XR 24hr 150 MG capsule Commonly known as: Effexor XR Take 1 (one) capsule by mouth daily with dinner STOP taking these medications amLODIPine 2.5 MG tablet Commonly known as: Norvasc clopidogrel 75 MG tablet Commonly known as: plaVIX Where to Get Your Medications Information about where to get these medications is not yet available Ask your nurse or doctor about these medications atorvastatin 80 MG tablet carvedilol 25 MG tablet cinacalcet 30 MG tablet ticagrelor 90 MG tablet Physical Exam Recent Vitals: Temp: [97.7 ??F (36.5 ??C)-99 ??F (37.2 ??C)] 97.7 ??F (36.5 ??C) Pulse: [96-121] 121 Resp: [20] 20 BP: (101-118)/(65-83) 113/83 Weight change: Intake/Output Summary (Last 24 hours) at 09/30/2025 1323 Last data filed at 09/29/2025 1800 Gross per 24 hour Intake 100 ml Output -- Net 100 ml Physical Exam: General: NAD, calm HEENT: EOMI; anicteric CV: normal S1, S2; RRR; no m/r/g Pulm: CTAB; no wheezes or crackles Abd: Soft, non-distended, non-tender Neuro: Severe aphasia, does follow commands and answers yes/no questions appropriately Extremities: no LE edema bilaterally Skin: Intact, no rashes, no lesions, no erythema Radiology XR Abdomen Kub Portable Result Date: 09/21/2025 PROCEDURE: XR ABDOMEN KUB PORTABLE, DATE/TIME OF EXAM: 09/20/2025 11:44 PM, LOCATION [facility] INDICATION: I63.9: Ischemic stroke (HCC) ADDITIONAL CLINICAL INFORMATION: Ordering Provider Reason For Exam: NGT placement Technologist Note: Additional: COMPARISON: None. Impression: Nasogastric tube is in the stomach. The visualized bowel gas pattern is normal. The visualized lung bases are clear. No displaced fracture. > Interpreting Provider: Venancio Varela MD on 09/21/2025 11:57 PM IR Carotid Cerebral Angiogram Result Date: 09/20/2025 DATE/TIME OF EXAM: 09/20/2025 10:00 AM Procedure: Diagnostic Catheter Cerebral Angiogram ComparisonStudy: Brain and neck MRA from 09/19/2025 History: 65 yo woman admitted for an acute infarct in left frontal lobe. CTA shows severe multiple areas of stenosis in anterior and posterior circulation. Plan cerebral angiogram for evaluation of severe intracranial vasculopathy. Manual Arts Therapy Teacher: Dr. Jack Casino Floorperson(s): Idris Blanc MD; Santo Hong MD. Vessels: Ultrasound Guided Access of Radial Artery Right Radial Artery Angiogram Left Vertebral Artery Angiogram: Cerebral Left Internal Carotid Artery Angiogram: Cerebral Left External Carotid Artery Angiogram: Cerebral Right Internal Carotid Artery Angiogram: Cerebral Right External Carotid Artery Angiogram: Cerebral Right Subclavian Artery Angiogram: Cerebral Anesthesia: I, Dr. Jack, was present for the entire duration of the procedure. Moderate sedation on this adult patient was ordered by the control tower radio operator, administered intravenously in my presence, and monitored by the procedure nurse as an independent trained observer who was present throughout the procedure. The following parameters were monitored: oxygen saturation, heart rate, blood pressure, and response to care. Intra- service sedation start time was 10:25 and end time was 11:20 during which I was present. Total physician intra-service sedation time was 55 minutes. For details on sedation patient evaluation, please review the evaluation in [facility]. For details on monitored clinical parameters during the intra-service sedation time, please review the procedure nurse documentation in [facility]. Procedural detail: The risks, benefits, and alternatives to procedure were discussed in detail with the patient and his/her family. These included but were not limited to the risk of blood loss, vessel injury, stroke, renal injury, and contrast allergy. The patient was brought to the biplane angiography suite where he/she underwent prep and drape procedures. Limited ultrasound of the right radial artery demonstrated a patent vessel. A roy scale image was documented. The right radial artery was accessed using a micropuncture needle. Following a series of exchanges, a 5 [place] 11 cm Glidesheath slender was placed in the radial artery. A radial angiogram was performed through the sheath. Aspasmolytic cocktail containing 3000u heparin, 2.5mg verapamil, and 200mcg of nitroglycerin was admi nistered. A 5 [place] [employer] Glidecath Rosas 2 diagnostic catheter along with a 0.035 Glidewire was navigated into the aortic arch. The catheter was used to select the brachiocephalic trunk followed by theright common carotid artery, then a roadmap was obtained with subsequent selection of right internal and external artery, and cerebral angiograms were obtained. The catheter was returned to the arch and used to select the left common carotid artery followed by the left internal carotid artery and acerebral angiogram was obtained. The catheter was returned to the left common carotid artery and then used to select the left external carotid artery and a cerebral angiogram was obtained. The catheter then was returned to the arch and used to select the left vertebral artery which have a origin from the arch and a cerebral angiogram was obtained. The catheter was used to select the brachiocephalic trunk followed by the right subclavian artery and a cerebral angiogram was obtained. All catheters and sheaths were removed from the arterial system. Hemostasis was achieved using a [employer] radial band closure device. Hemostasis was immediate at the end of the closure procedure. The right radial artery pulse was palpable at the end of the closure procedure. The patient tolerated the procedure without immediate complications. She was returned to the recovery area in hemodynamically stable condition and neurologically unchanged. The estimated blood loss was less than 10 mL. A total of 20 minutes of fluoroscopic time and 130 ml of Isovue-300 contrast were utilized for the study. Findings: - Left Vertebral artery It reveals a distal V2 - V3 segments with normal course and caliber. The V4 segment has a proximal segment with normal course and caliber, but there is visualization of alternating areas of severe stenosis in distal segment of V4 segment. The left vertebral artery ends in PICA which also has alternating areas of moderate stenosis in its proximal segments, the distal segments have a normal course and caliber. - Left Internal Carotid Artery It reveals a normal course and caliber of the intracranial segments. There is visualization of a prominent caliber posterior communicating artery suggestive of a ELECTRIC RANGE SERVICER variant. The middle cerebral artery has a diffuse decrease caliber of its horizontal segment causing moderate stenosis, the superior and inferior division have somethere is visualization of alternating areas of moderate and severe stenosis following a beading pattern. The anterior cerebral artery has a diffuse decrease caliber of its A1 segment causing moderatestenosis. Cortical branches of the A2 segments such as frontopolar, pericallosal, callosomarginal have alternating areas of moderate and severe stenosis following a beading pattern. The venous phase shows a normal drainage. - Left External Carotid Artery, cerebral angiogram. It reveals a normal course and caliber of the distal branches of middle meningeal artery, occipital and superficial temporal artery. - Right Internal Carotid Artery. It reveals a normal course and caliber of the intracranial segments. There is visualization of a prominent caliber posterior communicating artery suggestive of a ELECTRIC RANGE SERVICER variant. The middle cerebral artery has a normal course and caliber, the rest of the segments have alternating areas of moderate stenosis following a beading pattern. The anterior cerebral artery has a normal course and caliber of its A1 segment, the rest of its segments have alternating areas of moderate and severe stenosis following a beading pattern. The venous phase shows a normal drainage. - Right External Carotid Artery. It reveals a normal course and caliber of the distal branches of middle meningeal artery, occipital and superficial temporal artery. -Right Vertebral artery. It reveals a V4 segment with a distal moderate stenosis. There is not further visualization of the vertebrobasilar junction or basilar artery due due to contrast washout however we cant rule out severe stenosis or occlusion as a selective angiogram of the right vertebra; artery was ot performed. Impression: - Multiple alternating areas of moderate to severe stenosis affecting anterior and posterior circulation following a beading pattern. This could represent severe intracranial atherosclerosis or QUALITY MANAGEMENT NURSE vasculitis, recommend clinical correlation. > Dictated by Special Education Tutor I, MD Nickie have personally reviewed and interpreted this examination/study. > Interpreting Provider: Omar Jack MD on 09/20/2025 3:49 PM XR Chest 1Vw Result Date: 09/20/2025 PROCEDURE: XR CHEST 1VW, DATE/TIME OF EXAM: 09/20/2025 9:10 AM, LOCATION [facility] INDICATION: N18.6: ESRD (end stage renal disease) ([facility]) ADDITIONAL CLINICAL INFORMATION: OrderingProvider Reason For Exam: check tunneled HD cather placement Technologist Note: Additional: COMPARISON: Chest radiograph 04/28/2025 FINDINGS/IMPRESSION: *Right chest wall tunneled hemodialysis catheter with tip terminating in the right atrium *A loop recorder is seen overlying the left lower chest/upper abdomen There is no focal consolidation, pleural effusion, or pneumothorax.Normal pulmonary vasc ulature.The cardiomediastinal silhouette is normal. There is no acute displaced fracture of the bony thorax. > Dictated by Vargas Bach M.D., (cardiac cath lab radiology technologist). > Dictated by Special Education Tutor I, Ghulam Boykin MD have personally reviewed and interpreted this examination/study. > Interpreting Provider: Ghulam Boykin MD on 09/20/2025 11:[address] HEAD WO CONTRAST Result Date: 09/20/2025 PROCEDURE: CT HEAD WO CONTRAST, DATE/TIME OF EXAM: 09/19/2025 11:52 PM, LOCATION [facility] INDICATION: I63.9: Ischemic stroke ([facility]) G93.40: Acute encephalopathy ADDITIONAL CLINICALINFORMATION: Ordering Provider Reason For Exam: cva Technologist Note: Additional: TECHNIQUE: CT ofthe head was performed without contrast according to standard protocol. COMPARISON: CT head 04/30/2025 FINDINGS: No acute intracranial hemorrhage or intra- or extra-axial fluid collections are identified. There is mild cerebral volume loss with associated ex vacuo ventricular dilatation. The basal cisterns are patent. No mass effect or midline shift is seen. Chronic infarct in the right ELECTRIC RANGE SERVICER territo ry. Additional encephalomalacia in the left shin radiata appears new since 04/30/2025. The roy-white matter differentiation otherwise appears normal. Periventricular white matter hypoattenuation kenna nonspecific finding that may be indicative of chronic small vessel ischemic disease. There is atherosclerotic calcification of the carotid siphons. The visualized portions of the orbits, paranasal sinuses, and mastoids appear normal. No acute calvarial fracture is identified. IMPRESSION: 1.No CT evidence of acute hemorrhage, herniation, or large territorial infarct. 2.Please note CT is insensitive to small infarcts particularly in the posterior fossa, if there is continued clinical concern MRI can be obtained. 3.Encephalomalacia in the left shin radiata is new new since 04/30/2025. 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 > Dictated by Alberto David MD, (cardiac cath lab radiology technologist). > Dictated by Alberto David MD 09/19/2025 11:56 PM > Dictated by Special Education Tutor I, Tra Russell MD have personally reviewed and interpreted this examination/study. > InterpretingProvider: Tra Russell MD on 09/20/2025 12:15 AM MRI Angio Neck Wo Contrast Result Date: 09/19/[address] [address] EXAMINATION: MRA head without contrast, MRA neck without contrast [id number] EXAM DATE/TIME: 09/19/2025 3:29 PM REASON FOR EXAM: stroke, altered mental status COMPARISON: Brain MRI 09/18/2025 TECHNIQUE: 3-D ntic-cq-kpsvqr imaging was obtained of the intracranial arterial vasculature without the use of contrast agent. Subsequent 3-D rotational MIP reconstructions of the anterior and posterior circulations are created on separate workstation for review. Additionally, 2D xzba-mp-rbovna imaging obtained of the cervical arterial vasculature. Subsequent 3-D rotational MIP reconstructions of the left and right carotid circulations are created on separate workstation for review. Nocontrast utilized for this study. 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 The superior aspect of the intracranial left vertebral artery also appears occluded. Moderate focal stenosis of the right intracranial vertebral artery. There is nonvisualization of an anteriorleft MCA M2 branch. Remaining left MCA vasculature beyond the M1-M2 bifurcation also appears attenuated. No aneurysm is identified. Neck: No high-grade stenosis or proximal vessel occlusion. IMPRESSION: 1. 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 The superior aspect of the left intracranial vertebral artery also appears occluded. 2. Nonvisualization of an anterior left MCA M2 branch as well as attenuated appearance of the remaining left MCA vasculature beyond the M1-M2 bifurcation. 3. Given impression 1 and 2 above, interventional neurology consultation is recommended. 4. Moderate focal stenosis of the right intracranial vertebral artery. 5. No high-grade stenosis or proximalvessel occlusion in the neck. Impression 1-3 were sent to hospitalist on-call by Dr. Douglas via [employer] Its Kind [employer] at 09/19/2025 6:54 PM (central time). Referred By: Interpreted By: Micheal Douglas MD, 09/19/2025 6:42 PM MRI Angio Brain Art Bill Wo Cont Result Date: 09/19/[address] [address] EXAMINATION: MRA head without contrast, MRA neck without contrast [id number] EXAM DATE/TIME: 09/19/2025 3:29 PM REASON FOR EXAM: stroke, altered mental status COMPARISON: Brain MRI 09/18/2025 TECHNIQUE: 3-D pwwp-vp-qkzufe imaging was obtained of the intracranial arterial vasculature without the use of contrast agent. Subsequent 3-D rotational MIP reconstructions of the anterior and posterior circulations are created on separate workstation for review. Additionally, 2D bnjv-ig-cxkure imaging obtained of the cervical arterial vasculature. Subsequent 3-D rotational MIP reconstructions of the left and right carotid circulations are created on separate workstation for review. Nocontrast utilized for this study. 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 The superior aspect of the intracranial left vertebral artery also appears occluded. Moderate focal stenosis of the right intracranial vertebral artery. There is nonvisualization of an anteriorleft MCA M2 branch. Remaining left MCA vasculature beyond the M1-M2 bifurcation also appears attenuated. No aneurysm is identified. Neck: No high-grade stenosis or proximal vessel occlusion. IMPRESSION: 1. 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 The superior aspect of the left intracranial vertebral artery also appears occluded. 2. Nonvisualization of an anterior left MCA M2 branch as well as attenuated appearance of the remaining left MCA vasculature beyond the M1-M2 bifurcation. 3. Given impression 1 and 2 above, interventional neurology consultation is recommended. 4. Moderate focal stenosis of the right intracranial vertebral artery. 5. No high-grade stenosis or proximalvessel occlusion in the neck. Impression 1-3 were sent to hospitalist on-call by Dr. Douglas via [employer] at 09/19/2025 6:54 PM (central time). Referred By: Interpreted By: Micheal Douglas MD, 09/19/2025 6:42 PM Notable Labs Laboratory Data Recent Labs Component Name 09/28/25184609/27/25182709/26/251822 WBC 10.6 8.0 8.2 HGB 13.6 13.0 12.0 HCT 42.1 40.6 37.2 PLTCOUNT 220 217 250 MCV 92.3 91.0 89.9 Recent Labs Component Name 05/02/25 0100 04/28/25 0940 04/28/25 0029 PT 13.8 14.0 13.7 INR 1.1 1.1 1.1 PTT 75.9* - 30.1 Recent Labs Component Name 09/28/25184609/27/25182709/26/251822 NA 132* 134* 138 POTASSIUM 5.1* 4.3 4.2 CL 98 97* 99 CO2 13* 21* 23 BUN 35* 15 32* CREATININE 8.15* 5.55* 8.82* Recent Labs Component Name 09/28/25184609/27/25182709/26/25 1823 09/21/25 0436 09/20/25 0412 05/13/25 0720 05/12/25 0623 CALCIUM 10.1 9.9 9.9 - 10.7* 10.7* 7.7* 7.8* PHOS - - - - 6.6* 3.2 3.3 - = values in this interval not displayed. Recent Labs Component Name 09/20/25 0412 05/13/25 0720 05/12/25 0623 05/01/25 0032 04/30/25 0044 PROT 7.0 - - - 5.6* ALB 3.5 2.1* 2.2* - 2.7* ALKPHOS 114 - - - - AST 14 - - - - ALT 13 - - - - TBILI 0.5 - - - - - = values in this interval not displayed. No results for input(s): MOE HEATON in the last 20754 hours. Microbiology Results (Displays last 21 days for this encounter ONLY) No results found for the last 504 hours. Patient Discharge Instructions Discharge Instructions NOTE TO FACILITY -Plavix stopped and transitioned to Brilinta for secondary prevention of further strokes -Amlodipine discontinued as it was not needed for blood pressure control -Please ensure patient has transportation to the below appointments if she still at your facility Future Appointments October 31, 2025 1:00 AM (Arrive by 12:45 AM) Appointment with [facility] CARELINK at [facility] - Cardiology ([phone]) [address] [address] November 21, 2025 10:30 AM (Arrive by 10:15 AM) Appointment with Debi Carmen at [facility] - Neurology ([phone]) [address] [facility] [address] December 05, 2025 1:00 AM (Arrive by 12:45 AM) Appointment with [facility] CARELINK at [facility] - Cardiology ([phone]) [address] [address] January 09, 2026 1:00 AM (Arrive by 12:45 AM) Appointment with [facility] CARELINK at [facility] - Cardiology ([phone]) [address] [address] February 13, 2026 1:00 AM (Arrive by 12:45 AM) Appointment with [facility] at [facility] - Cardiology ([phone]) [address] [facility], [place] [address] [facility] [address] March 20, 2026 1:00 AM (Arrive by 12:45 AM) Appointment with [facility] at [facility] - Cardiology ([phone]) [address] [facility], [place] [address] [facility] [address] As directed Outpatient Referral: Ref to ENT Otolaryngology - [facility] As directed Outpatient Referral: Ref to Nephrology - [facility] Acute Ischemic Stroke Disease Education: An acute ischemic injury to the brain is the most common type of stroke. A part of the brain stops receiving blood flow and oxygen for some period of time, which leads to brain injury. Each part of the brain controls a specific part of the body. The brain has 2 major sides, the rightside controls the left side of the body and the left side controls the right side of the body. During the hospital admission, there are tests that are done to best find out the cause of the stroke. After the cause of stroke has been discovered, appropriate medications are usually recommended to help reduce the risk of another stroke, which is called ???secondary stroke prevention.?? Pharmacological Management There are multiple medications used to help prevent stroke recurrence. The following is prescribed for secondary stroke prevention: Aspirin is used to help prevent blockages from forming by preventing cells called platelets (which can cause clots) from coming together. Side effects include bleeding in any area of the body, headache, fever, ringing in your ears, confusion, hallucinations, rapid breathing, seizure. , @BRILINTA@, and Atorvastatin also known as Lipitor, is used to help decrease cholesterol. Side effects include muscle pain, tenderness and weakness. Non-Pharmacological Management We encourage a balanced diet, with more whole foods, vegetables, and fruits for complete nutrition,and minimizing packaged foods as much as possible. We encourage good management of blood sugar, if you have diabetes. We also encourage moderate amounts of exercise within your limits. Staying active 3-4 days a week for 30 minutes or more can be beneficial for mood and overall well-being. We encourage complete smoking cessation, as smoking is a large risk factor for stroke. If you wouldlike resources please see the following: Free resources on how to quit: https://smokefree.gov/ Email Cancercenter@health.[facility] for more information. Personalized smoking cessation consultations are available. [place] residents have access to free online support: https://quityes.org/?utm_source=[employer]_search -Traffic&utm_medium=paidmedia&utm_campaign=ExperiencedHelp&utm_content=flagship& utm_ term=il--&gad_source=5&gclid=VBNu[id number] _BwE [facility] has a smoking cessation program: https://www.[facility].net/practice/[facility]/nzxtwcs-sceogwzde-otzdupn s/ [place] offering free ???quit kits:?? https://dss.mo.gov/mhd/participants/pages/quitsmoke.htm https://health.mo.gov/living/wellness/tobacco/smokingandtobacco/tobaccocontrol.p hp Follow up Plan The plan after discharge is to follow up in stroke clinic. You will be discharged to prison facility Further Resources If you have any questions or concerns, please do not hesitate to call the [facility] Stroke Clinic phone number: [phone] Website: https://www.Aframe/Qompiumucare/services/neurology/rbyrnn-egeqbg-opdoxmopj For more information regarding ischemic strokes, please find this website: https://www.stroke.org/en/about-stroke/ixcjc-ud-gvnbku/hpyrcyzm-kgbpeh-zslzp I spent 45 minutes in addition to direct patient care summarizing this patient's hospital stay, reviewing and updating the inpatient problem list, reviewing discharge medications, instructions, discussing discharge care planand discharge follow up labs/studies/doctor visits with the patient and or POA/family. Cherelle Islas DO [facility] 09/30/2025 1:23 PM [1] Allergies Allergen Reactions ??? Lactose GI Discomfort AL HUMANE AGENT SUPERVISOR AL HUMANE AGENT SUPERVISOR documented in this encounter Discharge Instructions * Discharge Instructions* Cherelle Islas DO - 09/22/2025 9:11 PM ANIMAL HUMANE AGENT SUPERVISOR NOTE TO FACILITY -Plavix stopped and transitioned to Brilinta for secondary prevention of further strokes -Amlodipine discontinued as it was not needed for blood pressure control -Please ensure patient has transportation to the below appointments if she still at your facility Future Appointments October 31, 2025 1:00 AM (Arrive by 12:45 AM) Appointment with [facility] at [facility] - Cardiology ([phone]) [address] [facility] [address] [facility] [address] November 21, 2025 10:30 AM (Arrive by 10:15 AM) Appointment with Debi Camren at [facility] - Neurology ([phone]) [address] [facility], [facility] [address] December 05, 2025 1:00 AM (Arrive by 12:45 AM) Appointment with [facility] at [facility] - Cardiology ([phone]) [address] [facility], [facility] [address] [facility] [address] January 09, 2026 1:00 AM (Arrive by 12:45 AM) Appointment with [facility] at [facility] - Cardiology ([phone]) [address] [facility], [facility] [address] [facility] [address] February 13, 2026 1:00 AM (Arrive by 12:45 AM) Appointment with [facility] at [facility] - Cardiology ([phone]) [address] [facility], [facility] [address] [facility] [address] March 20, 2026 1:00 AM (Arrive by 12:45 AM) Appointment with [facility] at [facility] - Cardiology ([phone]) [address] [facility], [facility] [address] [facility] [address] As directed Outpatient Referral: Ref to ENT Otolaryngology - [facility] As directed Outpatient Referral: Ref to Nephrology - [facility] Acute Ischemic Stroke Disease Education: An acute ischemic injury to the brain is the most common type of stroke. A part of the brain stops receiving blood flow and oxygen for some period of time, which leads to brain injury. Each part of the brain controls a specific part of the body. The brain has 2 major sides, the rightside controls the left side of the body and the left side controls the right side of the body. During the hospital admission, there are tests that are done to best find out the cause of the stroke. After the cause of stroke has been discovered, appropriate medications are usually recommended to help reduce the risk of another stroke, which is called ???secondary stroke prevention.?? Pharmacological Management There are multiple medications used to help prevent stroke recurrence. The following is prescribed for secondary stroke prevention: Aspirin is used to help prevent blockages from forming by preventing cells called platelets (which can cause clots) from coming together. Side effects include bleeding in any area of the body, headache, fever, ringing in your ears, confusion, hallucinations, rapid breathing, seizure. , @BRILINTA@, and Atorvastatin also known as Lipitor, is used to help decrease cholesterol. Side effects include muscle pain, tenderness and weakness. Non-Pharmacological Management We encourage a balanced diet, with more whole foods, vegetables, and fruits for complete nutrition,and minimizing packaged foods as much as possible. We encourage good management of blood sugar, if you have diabetes. We also encourage moderate amounts of exercise within your limits. Staying active 3-4 days a week for 30 minutes or more can be beneficial for mood and overall well-being. We encourage complete smoking cessation, as smoking is a large risk factor for stroke. If you wouldlike resources please see the following: Free resources on how to quit: https://smokefree.gov/ Email Cancercenter@health.[facility] for more information. Personalized smoking cessation consultations are available. [place] residents have access to free online support: https://quityes.org/?utm_source=[employer]_search -Traffic&utm_medium=paidmedia&utm_campaign=ExperiencedHelp&utm_content=flagship& utm_ term=il--&gad_source=5&gclid=R[id number] _BwE [facility] has a smoking cessation program: https://www.[facility].net/practice/[facility]/fnsnjji-zafyjyqof-xpdruwc s/ [place] offering free ???quit kits:?? https://dss.mo.gov/mhd/participants/pages/quitsmoke.htm https://health.mo.gov/living/wellness/tobacco/smokingandtobacco/tobaccocontrol.p hp Follow up Plan The plan after discharge is to follow up in stroke clinic. You will be discharged to prison facility Further Resources If you have any questions or concerns, please do not hesitate to call the [facility] Stroke Clinic phone number: [phone] Website: https://www.The V[employer] Net/Qompiumucare/services/neurology/evrsms-fbyilj-vjnesakka For more information regarding ischemic strokes, please find this website: https://www.stroke.org/en/about-stroke/rqdzs-ud-cmnqik/omhffdei-cwumyt-qamew AL HUMANE AGENT SUPERVISOR AL HUMANE AGENT SUPERVISOR AL HUMANE AGENT SUPERVISOR AL HUMANE AGENT SUPERVISOR documented in this encounter Medications at Time of Discharge acetaminophen (Tylenol) 325 MG tablet Take 2 (two) tablets by mouth every 6 hours as needed Maximum allowable Acetaminophen amount = 4 Grams (4000 mg) / 24 hours. 05/13/2025 aspirin (Aspirin) 81 MG chew tablet Take 1 (one) tablet by mouth once daily (chew and swallow) 05/14/2025 atorvastatin (Lipitor) 80 MG tablet Take 1 (one) tablet by mouth at bedtime 09/23/2025 carvedilol (Coreg) 25 MG tablet Take 1 (one) tablet by mouth 2 times daily with morning and evening meal 09/23/2025 cinacalcet (Sensipar) 30 MG tablet Take 2 (two) tablets by mouth daily with breakfast 09/30/2025 folic acid (Folvite) 1 MG tablet Take 1 (one) tablet by mouth once daily 05/14/2025 OneTouch Verio test strip Use 1 (one) strip 4 times daily 04/28/2023 ticagrelor (Brilinta) 90 MG tablet Take 1 (one) tablet by mouth 2 times daily 09/30/2025 venlafaxine XR 24hr (Effexor XR) 150 MG capsule Take 1 (one) capsule by mouth daily with dinner 05/13/2025 documented as of this encounter Progress Notes * Bonnie Marsh, MALGORZATA - 09/30/2025 2:12 PM CST Facility Transfer Note Level of Care: Actual level of care at discharge: Mcfp - Skilled Facility Facility Name: (include name of person confirming admission): [facility] - Confirmed by facility of admissions [facility] [phone] [place] Made Aware of Special Needs (if applicable): behavioral pediatrician Call Report to:[phone] Fax D/C Orders to:[phone] Transportation (company and number): [email or web address] Certificate of Medical Necessity rationale: FALL RISK, GAIT 0 FEET Date/time of transfer: 09/30/2025 3PM. Accepting MD and contact #: Daniel Completed and Signed [id number] (if applicable): N/A Family/Other Notified of Transfer (name/phone): Extended Emergency Contact Information Primary Emergency Contact: Adry Smith Mobile Relation: Cousin Shotgun Shell Reprinting Unit Operator needed? No Secondary Emergency Contact: Alberta Pierre Mobile Relation: Sister Shotgun Shell Reprinting Unit Operator needed? No Authorization Skilled Care: Authorization for Transportation: Verified Qualifying Stay(Skilled Only): YES Comments: SW met with pt at bedside to discuss dc planning. Pt choice is to go to [facility] for SNF. SW spoke to pt cousin (Adry Smith [phone]) regarding discharge planning. 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 SW has faxed over appropriate paper work including: DC to Facility Orders, and IP After Visit Summary. DC packet has also been made containing the same information, and information concerning facility bed. SW will continue to follow until final dc. Name/Phone number: Bonnie MALGORZATA Marsh [phone] AL HUMANE AGENT SUPERVISOR * Marcus Casas - 09/30/2025 2:11 PM CST Patient Discharge Transportation Arrangements: To: [facility] Date: 09/30/2025 Time: 4:15PM Ambulance Co:[facility] Trip #: [id number] The Medical Necessity for Non-Emergent Ambulance Transportation form has been completed and is available to print with Facility Transfer paperwork. AL HUMANE AGENT SUPERVISOR * Cassie oBo RD/NIKO - 09/30/2025 12:11 PM CST BRIEF SYNOPSIS: Nutrition Risk Identified and meets criteria for Severe Protein Calorie malnutrition. Malnutrition Etiology Malnutrition in the context of: chronic disease (09/30/25 1200) Malnutrition Severity: Severe Protein Calorie (09/30/25 1200) Dietary Intake: Dietary Intake Evaluation Energy Intake: < 75% of estimated energy requirement for > 1 month Weight Change: Weight change Unintended weight change: Severe weight loss Weight Loss: > 10% x 6 months Fat Loss: Muscle Loss: Body mass index is 25.69 kg/m??. GI Concerns: None Nutrition Plan: Current diet order: Renal Standard Current supplement order: Nepro once daily Tube Feeding Recommendations -- if appropriate: Nepro at 55 ml/hr. Provides 2376 kcal, 107 g protein, 213 g carbohydrate, 960 ml free water. +50 ml q 6 hrs free water flush or per MD if on IVF +100 ml q 4 hrs free water flush or per MD if not on additional fluids \ Start at 20ml/hr and increase by 10ml/hr q 4 hrs until at goal Recommendation to Physician: +Code for severe malnutrition, present on admission (E43), please add to active problem list and physician note. + Recommend rechecking serum phosphorus in setting of ESRD. Discharge Needs: Nutritional Supplement at Discharge: Yes CLINICAL NUTRITION ASSESSMENT: Pt scheduled for reassessment. Pt on a renal diet and continues to have poor PO intake at 0% x 48 hrs. 1 Ensure clear documented. Pt on HD. Labs reviewed: elevated K (5.1). Need updated phos check. 1BM this AM. Pt does meet ASPEn criteria for malnutrition at this time. RD will continue to monitor. Med/Surg History and Clinical Diagnoses: Gena Pierre is a 65-year-old female with past medical history of CVA, DM2, ESRD on HD, hyperparathyroidism who presents to the ED for the above. Patient unable to provide any history. When asked her name probably later. RN reports patient has been waxing and waning in her ability to communicate, she was able to state her name and when she does dialysis. Height: 165.1 cm (5' 5) BMI: Body mass index is 25.69 kg/m??. BMI Range: Overweight IBW/lb (Calculated) Female: 125 Recent Weights/Methods 04/28/2025 2018 04/29/2025 0250 05/06/2025 0924 06/20/2025 1016 08/07/2025 1046 09/20/2025 0800 09/29/2025 0713 09/29/2025 1105 Weight: -- 90.7 kg (200 lb) -- 73.5 kg (162 lb) 78 kg (172 lb) 78 kg (172 lb) 71.5 kg (157 lb 9.6 oz) 70 kg (154 lb 6.4 oz) Weight Method : Bed scale Bed scale Other (Comment) -- -- -- Bed scale Bed scale Unintentional weight change: Per EMR, pt has had a 23% wt loss x 5 months which is considered significant. Unintended weight change: Severe weight loss Weight Loss: > 10% x 6 months PO INTAKE Current diet order: Renal Standard Nutrition recommendation: agree with current nutrition order Food Allergies: Other (Comments) (lactose) Last Percent Meal Eaten (%): 0 % (09/30/25 1106) 48 hr PO INTAKE Percent Meal Eaten (%) Av.2 % Min: 0 % Max: 25 % Current supplement order: Nepro once daily Date/Time Dietary Supplement Name Liquid Supplement Consumed (mL) Non-Liquid Supplement Consumed (%) 09/28/25 1409 Ensure Clear 0 ML -- 09/28/25 1850 Ensure Clear 250 ML -- Pain affecting intake: No Chewing/Swallowing: None GI Concerns: None Stools: Unmeasured Stool Occurrence: 1 (09/30/25301) Stool Appearance : Loose (09/30/25301) Skin/Wound: radial puncture site Estimated Needs: KCAL: 4447-1404 (30-35 kcal/kg ABW) Protein (g): 94g (1.2 g/kg ABW) Fluid (ml): (urine output + 500-1000 ml/day) Needs based on: Kcal/kg- (Comment) (ABW of 78kg ESRD on HD) Recommended Access Route: PO Labs: Recent Labs Component Name 09/28/25184609/27/25182709/26/25182209/21/256 09/20/25411 NA 132* 134* 138 - 140 140 POTASSIUM 5.1* 4.3 4.2 - 3.7 3.7 CO2 13* 21* 23 - 29 29 BUN 35* 15 32* - 43* 43* CREATININE 8.15* 5.55* 8.82* - 9.14* 9.14* GLUCOSE 118* 134* 154* - 69* 69* CALCIUM 10.1 9.9 9.9 - 10.7* 10.7* ALT - - - - 13 ALKPHOS - - - - 114 AST - - - - 14 EGFR 5* 8* 5* - 4* 4* - = values in this interval not displayed. Recent Labs Component Name 09/20/2541105/13/2571905/12/25 06 PHOS 6.6* 3.2 3.3 Recent Labs Component Name 09/20/2541105/13/25 0720 05/12/25 0623 MAGNESIUM 2.2 1.9 1.8 Recent Labs Component Name 09/28/25184609/27/25182709/26/251822 HGB 13.6 13.0 12.0 HCT 42.1 40.6 37.2 Recent Labs Component Name 09/20/2541104/29/25 0115 HGBA1C 5.0 4.5 Patient Vitals for the past 30 hrs: Glucose Bedside (mg/dL) 09/29/25 1700 115 mg/dL 09/29/25 1200 146 mg/dL MEDICATIONS FOR CURRENT ENCOUNTER: SCHEDULED MEDICATIONS: Or 0.9% NaCl injection 3 mL, Intracatheter, q8h aspirin chew tablet 81 mg, Oral, QDAY aspirin suppository 300 mg, Rectal, QDAY atorvastatin (Lipitor) tablet 80 mg, Oral, AT BEDTIME carvedilol (Coreg) tablet 25 mg, Oral, BID WC cinacalcet (Sensipar) tablet 60 mg, Oral, QDAY heparin injection 1,000 Units, Intracatheter, post-Dialysis once heparin injection 5,000 Units, Subcutaneous, q8h senna-docusate (Senokot-S) tablet 1 tablet, Oral, QDAY ticagrelor (Brilinta) tablet 90 mg, Oral, BID venlafaxine XR 24hr (Effexor XR) capsule 150 mg, Oral, QDAY WITH DINNER CONTINUOUS MEDICATIONS: PRN MEDICATIONS: Or Or 0.9% NaCl injection 1-10 mL, Intracatheter, PRN acetaminophen (Tylenol) tablet 650 mg, Oral, q6h PRN dextrose IV 12.5 g, Intravenous, PRN dextrose IV 25 g, Intravenous, PRN glucose (Diabetic Use) oral gel, Oral, PRN ondansetron (disintegrating) (Zofran ODT) tablet 4 mg, Oral, q6h PRN ondansetron (Zofran) injection 4 mg, Intravenous, q6h PRN polyethylene glycol 3350 (Miralax) packet 17 g, Oral, QDAY PRN Nutrition Diagnostic Statement: Inadequate protein-energy intake related to:: decreased ability to consume or tolerate adequate food and/or fluids due to illness as evidenced by:: estimated intake insufficient to meet requirements Nutrition Diagnostic Statement Progress: Nutrition problem continues Nutrition Intervention: Medical Food Supplements: Nutrition Diagnostic Statement (2): Malnutrition Nutrition Goal Progress: New goal established Nutrition Intervention: Meals and snacks:;Medical Food Supplements: Education needed: Cardiac Diet Education Provided: Not appropriate (09/24/25 1000) Monitoring: GI, PO intake, WT, labs, medications Monitor per nutrition guidelines. Risk Level: At Risk for Malnutrition Evaluation: Nutrition Goal: Total intake will meet estimated nutrient needs Nutrition Goal Timeframe: Throughout stay Nutrition Goal Progress: Continue with current goal Nutrition Goal: Total intake will meet estimated nutrient needs Nutrition Goal Timeframe: Throughout stay Cassie Boo MS, RD/GERALDON, LD Ascom [phone] AL HUMANE AGENT SUPERVISOR * Aditi Chan SLP - 09/30/2025 10:51 AM CST [facility] Speech/Language Treatment Patient: Gena Pierre [facility] Record Number: [id number] Date of : 1960 Age: [age] year old PPE: gloves Impressions: Pt was seen for therapy re: expressive and receptive language function. Pt continues to produce minimal spontaneous speech and auditory comprehension is impaired for even simple commands. Will continue speech therapy for swallow/speech/language/communicative function. Discharge Recommendation: Patient will benefit from multidisciplinary inpatient therapies. Speech therapy is recommended to improve swallow and communicative function. Subjective: What matters most to this patient? Unable to verbalize goals Mental Status: Alert and responsive Pain: Patient has no indicated pain. Follow-up for pain: No follow-up for pain indicated and patient agreed to proceed with treatment Objective: Expressive Language Automatic speech: Severe impairment, pt is unable to produce any automatic speech Repetition: Vowels: 0/3; Pt occasionally imitated some single words, such as bye Conversational language: Limited to single word, perseverative responses Writing: DNT Receptive Language Simple yes/no ?s: 3/7; Pt mostly perseverates on yes 1-step directives: 2/5 Reading: DNT Speech No impairment Assessment: Behavioral: Alert, Cooperative Speech: No impairment Language: Severe deficits Education: Patient instructed in recommedations and indicated understanding. Goals: Short Term Goals: Patient to demonstrate no clinical signs/symptoms of aspiration or difficulty swallowing with recommended diet. Patient to demonstrate use of strategies for improved expressive communication. Skill Training Program Coordinator Goal(s): Patient to discharge to appropriate next level of inpatient care. If patient is discharged from the facility, this note serves as a discharge note if further speech therapy visits did not occur. AL HUMANE AGENT SUPERVISOR * Alicja Diaz - 09/30/2025 10:29 AM CST Updated progress notes sent to patient's Outpatient Hemodialysis Dialysis center. 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 The patient presented with confusion, expressive aphasia and chronic left-sided weakness from prior stroke in 2024. In ED, blood pressure was 122/69 mmHg, labs were significant for serum sodium 140 mmol/L, potassium-3.7 mmol/L, CO2-29 mmol/L, BUN-43 mg/dL and creatinine- 9.40 mg/dL. CT head was negative for any evidence of acute hemorrhage, herniation or large territorial infarct. 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 INTERVAL HISTORY: - Patient seen on Nursing counter while on restraints. - Got HD session yesterday ( according to Holiday schedule) with UF of 1 L without any intra dialytic hypotension. - No acute event over last 24 hours. ASSESSMENT # ESRD on maintenance hemodialysis MWF -Access: R-IJ Permcath -Last HD on 09/29 -[id number] mmol/L -Electrolytes: Na-139 mmol/L, K-5.1 mmol/L -Volume Status: Euvolemic # Chronic kidney disease-mineral and bone disorder (CKD-MBD) -Ca-10.1 mg/dl, P-6.6 mg/dl -Alb-3.5 g/dl -PTH-1836.5 pg/ml -Vitamin D-17.8 ng/ml -On Sensipar 60 mg daily # Anemia of chronic kidney disease -Hb-12.1 g/dl-at goal -Ferritin-1497 ng/ml, TSAT-84% -Transfuse if Hb < 7 g/dl -No need for MARCO or iron for now # Hypertension -BP-111/65 mmHg -Home medications: Carvedilol 12.5 mg twice daily -Monitor blood pressure, resume home antihypertensives and advance doses as necessary RECOMMENDATIONS - Nephrology following patient HD requirements. - Next HD on 09/30 according to Holiday schedule MWF patients if inpatient. Please refer to the initial nephrology consult note for additional information. Hospital Medications: Medications[1] Medications[2] Physical Exam: Vitals: 09/29/25 1303 09/29/25 1405 09/29/25 1747 09/29/25 2106 BP: 84/45 101/74 118/75 111/65 Pulse: (!) 112 96 103 (!) 115 Resp: 18 20 Temp: 99 ??F (37.2 ??C) SpO2: 98% Weight: Height: Intake/Output Summary (Last 24 hours) at 09/30/2025 0905 Last data filed at 09/29/2025 1800 Gross per 24 hour Intake 100 ml Output 1000 ml Net -900 ml Constitutional: Appearance: Normal appearance. Comments: awake Rate and Rhythm: Normal rate. Heart sounds: Normal heart sounds. Pulmonary: Effort: Pulmonary effort is normal. Breath sounds: Normal breath sounds. Abdominal: Palpations: Abdomen is soft. Musculoskeletal: Right lower leg: No edema. Left lower leg: No edema. Neurological: looks confused during examination. Dialysis access: R-IJ Permcath LABS: Recent Labs Component Name 09/28/25 1847 12/182709/26/25 1823 NA 132* 134* 138 POTASSIUM 5.1* 4.3 4.2 CL 98 97* 99 CO2 13* 21* 23 BUN 35* 15 32* CREATININE 8.15* 5.55* 8.82* Recent Labs Component Name 09/28/25 18409/27/25 1828 09/26/25 1823 09/21/25 0436 09/20/25 0412 05/13/25 0720 05/12/25 0623 CALCIUM 10.1 9.9 9.9 - 10.7* 10.7* 7.7* 7.8* PHOS - - - - 6.6* 3.2 3.3 - = values in this interval not displayed. Recent Labs Component Name 09/20/2541104/29/25 0115 PTHINTACT 1,836.5* 1,633.6* Recent Labs Component Name 09/28/25184609/27/25182709/26/25 182 WBC 10.6 8.0 8.2 HGB 13.6 13.0 12.0 Recent Labs Component Name 04/28/25 0940 IRON 99 TIBC 118* FERRITIN 1,497* Kathy Alvarez MD Nephrology Fellow [1] 0.9% NaCl 3 mL Intracatheter q8h aspirin 81 mg Oral QDAY Or aspirin 300 mg Rectal QDAY atorvastatin 80 mg Oral AT BEDTIME carvedilol 25 mg Oral BID WC cinacalcet 60 mg Oral QDAY heparin 1,000 Units Intracatheter post-Dialysis once heparin 5,000 Units Subcutaneous q8h senna-docusate 1 tablet Oral QDAY ticagrelor 90 mg Oral BID venlafaxine XR 24hr 150 mg Oral QDAY WITH DINNER [2] Cosigned by Jo-Ann Matias MD at 09/30/2025 2:36 PM ANIMAL HUMANE AGENT SUPERVISOR AL HUMANE AGENT SUPERVISOR AL HUMANE AGENT SUPERVISOR Associated attestation - Jo-Ann Matias MD - 09/30/2025 2:36 PM ANIMAL HUMANE AGENT SUPERVISOR I have seen and examined the patient with house-staff on rounds I agree with the house-staff note with the additions/modificiations listed below. Patient sitting at nursing station as needed monitoring for pulling lines out On exam NAD, covered TDC for risk of dislodgement Jo-Ann Matias MD * Queta Renee RN - 09/30/2025 1:42 AM CST Problem: Neurosensory - Adult Goal: Achieves stable or improved neurological status Description: INTERVENTIONS Outcome: Progressing Problem: Respiratory - Adult Goal: Achieves optimal ventilation and oxygenation Description: INTERVENTIONS: Outcome: Progressing Problem: Cardiovascular - Adult Goal: Maintains optimal cardiac output and hemodynamic stability Description: INTERVENTIONS: Outcome: Progressing Problem: Skin/Tissue Integrity - Adult Goal: Skin integrity remains intact Description: INTERVENTIONS: Outcome: Progressing Problem: Neurovascular Musculoskeletal - Adult Goal: Return mobility to safest level of function Description: INTERVENTIONS: Outcome: Progressing Problem: Gastrointestinal - Adult Goal: Minimal or absence of nausea and vomiting Description: INTERVENTIONS: Outcome: Progressing Goal: Maintains or returns to baseline bowel function Description: INTERVENTIONS: Outcome: Progressing Goal: Maintains adequate nutritional intake Description: INTERVENTIONS: Outcome: Progressing Problem: Genitourinary - Adult Goal: Maintains or returns to baseline genitourinary function Description: INTERVENTIONS: Outcome: Progressing Problem: Infection - Adult Goal: Infections are decreased or avoided Description: INTERVENTIONS: Outcome: Progressing Problem: Metabolic/Fluid and Electrolytes - Adult Goal: Electrolytes maintained within normal limits Description: INTERVENTIONS: Outcome: Progressing Problem: Hematologic - Adult Goal: Maintains hematologic stability Description: INTERVENTIONS: Outcome: Progressing Problem: Hemodynamic Status/Cardiac Output Goal: Patient has stable vital signs and fluid balance Outcome: Progressing Problem: Fluid and Electrolyte Imbalance Goal: Fluid and electrolyte balance are achieved/maintained Outcome: Progressing Problem: Infection Goal: Signs and symptoms of infections are decreased or avoided Outcome: Progressing Problem: Fall Risk Goal: Fall risk and fall related injury risk are minimized (interventions related to the fall risk can be found in the flowsheet documentation) Outcome: Progressing AL HUMANE AGENT SUPERVISOR * Mike Rock MD - 09/29/2025 5:28 PM CST NEPHROLOGY ATTENDING PROGRESS NOTE Hospital Day: 10 Brief History: Gena Pierre is a 65 year old female w ESKD on HD MWF via R-IJ Permcath, hypertension, type 2 diabetes mellitus, right-sided breast cancer, compression fraction of T9 vertebra, thyroid nodule, syncope, uterine mass, CVA, who presented with code stroke. CT without acute changes. Subjective/Interval Change: S/p HD toay, no new complaints. Waiting for placement. Medications[1] Examination: BP 101/74 Pulse 96 Temp 98.1 ??F (36.7 ??C) (Axillary) Resp 18 Ht 1.651 m (5' 5) Wt 70 kg (154 lb 6.4 oz) SpO2 91% General: Alert, cooperative, no distress Neck: No JVD Heart: Regular rate and rhythm Lung: Clear to auscultation bilaterally. Abd: Soft, non-tender. Skin: Skin color normal. No rashes or lesions. Ext: No edema Data: Recent Labs Component Name 09/28/25 1847 09/27/25 1828 09/26/25 1823 WBC 10.6 8.0 8.2 HGB 13.6 13.0 12.0 HCT 42.1 40.6 37.2 PLTCOUNT 220 217 250 Recent Labs Component Name 09/28/25 1847 09/21/25 0436 09/20/25 0412 POTASSIUM 5.1* - 3.7 3.7 CO2 13* - 29 29 BUN 35* - 43* 43* CREATININE 8.15* - 9.14* 9.14* CALCIUM 10.1 - 10.7* 10.7* ALT - - 13 AST - - 14 GLUCOSE 118* - 69* 69* - = values in this interval not displayed. The above studies were independently reviewed by me. Assessment/Plan # ESRD on HD Access R IJ TDC Euvolemic on exam. S/p HD this morning. Plan to cont HD on Tue// for holiday schedule this week. # Anemia of CKD Hb 13, no EPO indicated # CKD-MBD # Tertiary hyperparathyroidism Ca 9.9, improving. Cont sensipar 60mg daily Mike Rock MD, 09/29/2025 at 5:28 PM [1] Current Facility-Administered Medications Medication 0.9% NaCl injection 3 mL And 0.9% NaCl injection 1-10 mL acetaminophen (Tylenol) tablet 650 mg aspirin chew tablet 81 mg Or aspirin suppository 300 mg atorvastatin (Lipitor) tablet 80 mg carvedilol (Coreg) tablet 25 mg cinacalcet (Sensipar) tablet 60 mg dextrose IV 12.5 g Or dextrose IV 25 g glucose (Diabetic Use) oral gel heparin injection 1,000 Units heparin injection 5,000 Units ondansetron (disintegrating) (Zofran ODT) tablet 4 mg Or ondansetron (Zofran) injection 4 mg polyethylene glycol 3350 (Miralax) packet 17 g senna-docusate (Senokot-S) tablet 1 tablet ticagrelor (Brilinta) tablet 90 mg venlafaxine XR 24hr (Effexor XR) capsule 150 mg AL HUMANE AGENT SUPERVISOR * Radha Bañuelos RN - 09/29/2025 12:07 PM CST Post-HD Treatment Note: Hemodialysis Progress Note TX Duration: 3.5hrs Status of Access: cvc is patent Status of Dressing: CDI Total UF volume Removed: 1L UF Goal Met: yes Patient tolerance to TX: well Medications administered: Heparin locked lumens Patient Orientation: freddy- pt is aphasic Treatment Complications: none Labs Drawn: no Post-tx vitals: T: 98.1 P: 102 R: 18 BP:96/70 SpO2: 100 Time Report given: 1040 Report given to: Hillary DUGGAN AL HUMANE AGENT SUPERVISOR * Radha Bañuelos RN - 09/29/2025 8:54 AM CST Hemodialysis Pre Treatment Note Hepatitis B Status:Negative 09/21/25 Admitting Diagnosis:Aphasia DATE OF SIGNED DIALYSIS CONSENT: 09/21/25 ORDERED LENGTH OF TREATMENT: 3.5hrs LABS REVIEWED: yes PRE-TREATMENT VITALS: BP: 111/72 HR: 91 RR: 18 SPO2: 100 TEMP: 98.2 UF GOAL: 1L PATIENT ORIENTATION: freddy- pt is aphasic TYPE/LOCATION OF ACCESS:R subclavian cvc DATE OF LAST CVC DRESSING CHANGE: 09/23/25 CVC Caps changed:na PATIENT EDCUATION: yes AL HUMANE AGENT SUPERVISOR * Radha Bañuelos RN - 09/29/2025 8:53 AM CST Problem: Hemodynamic Status/Cardiac Output Goal: Patient has stable vital signs and fluid balance Outcome: Progressing Problem: Fluid and Electrolyte Imbalance Goal: Fluid and electrolyte balance are achieved/maintained Outcome: Progressing Problem: Infection Goal: Signs and symptoms of infections are decreased or avoided Outcome: Progressing AL HUMANE AGENT SUPERVISOR * Cherelle Islas DO - 09/29/2025 7:58 AM CST Images from the original note were not included. [facility] Internal Medicine Progress Note Name: Gena Pierre Room/Bed: [facility] : 1960 65 year old PCP: Monster Garza MD Admit Date/Time: 09/19/2025 10:05 PM LOS: 10 Subjective Patient seen in dialysis, resting comfortably. When asked if she is in pain says no. Objective Temp: [97.7 ??F (36.5 ??C)-99 ??F (37.2 ??C)] 97.7 ??F (36.5 ??C) Pulse: [87-95] 95 Resp: [16-18] 18 BP: (91-114)/(56-77) 106/77 Weight change: Intake/Output Summary (Last 24 hours) at 09/29/2025 0758 Last data filed at 09/28/2025 1850 Gross per 24 hour Intake 700 ml Output -- Net 700 ml Physical Exam: General: NAD, calm HEENT: EOMI; anicteric, normal neck ROM CV: normal S1, S2; RRR; no m/r/g Pulm: CTAB; no wheezes or crackles Abd: Soft, non-distended, non-tender Neuro: Severe aphasia, does follow commands and answers yes/no questions appropriately Extremities: no LE edema bilaterally Skin: Intact, no rashes, no lesions, no erythema Assessment and Plan History of ischemic right MCA stroke Present on Admission: Yes Ischemic stroke (HCC) Present on Admission: Yes -Initially admitted to stroke team found to have ischemic stroke, continue aspirin 81mg, Brilinta 90 mg started this admission, Lipitor increased from 40 to 80 mg -PT OT recommending SNF ESRD (end stage renal disease) (HCC) Present on Admission: Yes Secondary hyperparathyroidism (HCC) Present on Admission: Yes -Nephrology following for maintenance dialysis Primary hypertension Present on Admission: Yes -Continue Coreg 25 mg twice daily Type 2 diabetes mellitus with unspecified complications (HCC) Present on Admission: Yes -A1c 4.5 -Discontinue Accu-Cheks and sliding scale insulin, will monitor glucose on daily labs Hx of major depression Present on Admission: Yes -Continue home Effexor Hospital Acquired Infection Risk Review: Hemodialysis Tunneled Catheter Subclavian (Active) No placement date or time found. Dialysis Tunneled Catheter Location: Subclavian Hemodialysis Cath Orientation: Right Number of days: Incidental findings requiring follow up: N/a Diet: DIETARY NUTRITION SUPPLEMENTS DIET RENAL DVT Prophylaxis: Heparin (DVT Prophylaxis Dose) Code Status: NO CPR(DNR) NO INTUBATION Electronically Signed By: Cherelle Islas DO 09/29/2025 7:58 AM AL HUMANE AGENT SUPERVISOR * Hillary Montalvo RN - 09/29/2025 7:05 AM CST Pt left unit for dialysis 0705 Returned from dialysis 1125 AL HUMANE AGENT SUPERVISOR AL HUMANE AGENT SUPERVISOR * Gilmar Carr RN - 09/29/2025 2:00 AM CST Problem: Neurosensory - Adult Goal: Achieves stable or improved neurological status Description: INTERVENTIONS Outcome: Progressing Problem: Neurosensory - Adult Goal: Remains free of injury related to seizures activity Description: INTERVENTIONS: Outcome: Progressing Problem: Neurosensory - Adult Goal: Achieves maximal functionality and self care Description: INTERVENTIONS: Outcome: Progressing Problem: Respiratory - Adult Goal: Achieves optimal ventilation and oxygenation Description: INTERVENTIONS: Outcome: Progressing Problem: Cardiovascular - Adult Goal: Maintains optimal cardiac output and hemodynamic stability Description: INTERVENTIONS: Outcome: Progressing Problem: Skin/Tissue Integrity - Adult Goal: Skin integrity remains intact Description: INTERVENTIONS: Outcome: Progressing Problem: Fall Risk Goal: Fall risk and fall related injury risk are minimized (interventions related to the fall risk can be found in the flowsheet documentation) Outcome: Progressing AL HUMANE AGENT SUPERVISOR * Losi Ruiz RN - 09/28/2025 2:05 PM CST Problem: Neurosensory - Adult Goal: Achieves stable or improved neurological status Description: INTERVENTIONS Outcome: Progressing Goal: Remains free of injury related to seizures activity Description: INTERVENTIONS: Outcome: Progressing Goal: Achieves maximal functionality and self care Description: INTERVENTIONS: Outcome: Progressing Problem: Skin/Tissue Integrity - Adult Goal: Skin integrity remains intact Description: INTERVENTIONS: Outcome: Progressing Problem: Neurovascular Musculoskeletal - Adult Goal: Return mobility to safest level of function Description: INTERVENTIONS: Outcome: Progressing Goal: Maintain proper alignment of affected body part Description: INTERVENTIONS: Outcome: Progressing Problem: Hematologic - Adult Goal: Maintains hematologic stability Description: INTERVENTIONS: Outcome: Progressing AL HUMANE AGENT SUPERVISOR * Mike Rock MD - 09/28/2025 1:10 PM CST NEPHROLOGY ATTENDING PROGRESS NOTE Hospital Day: 9 Brief History: Gena Pierre is a 65 year old female w ESKD on HD MWF via R-IJ Permcath, hypertension, type 2 diabetes mellitus, right-sided breast cancer, compression fraction of T9 vertebra, thyroid nodule, syncope, uterine mass, CVA, who presented with code stroke. CT without acute changes. Subjective/Interval Change: S/p HD yesterday, no new complaints. Waiting for placement. Medications[1] Examination: BP 110/71 (BP Location: Left arm, Patient Position: Lying) Pulse 88 Temp 97.5 ??F (36.4 ??C) (Axillary) Resp 16 Ht 1.651 m (5' 5) Wt 78 kg (172 lb) SpO2 98% General: Alert, no distress Neck: No JVD Heart: Regular rate and rhythm, S1, S2 normal, no murmur, click, rub or gallop. Lung: Clear to auscultation bilaterally. Ext: No edema I/O ? / 1000ml Data: Recent Labs Component Name 09/27/25 1828 09/26/25 18209/25/25 1849 WBC 8.0 8.2 11.4* HGB 13.0 12.0 12.1 HCT 40.6 37.2 37.8 PLTCOUNT 217 250 252 Recent Labs Component Name 09/27/25 1828 09/21/25 0436 09/20/25 0412 POTASSIUM 4.3 - 3.7 3.7 CO2 21* - 29 29 BUN 15 - 43* 43* CREATININE 5.55* - 9.14* 9.14* CALCIUM 9.9 - 10.7* 10.7* ALT - - 13 AST - - 14 GLUCOSE 134* - 69* 69* - = values in this interval not displayed. The above studies were independently reviewed by me. Assessment/Plan # ESRD on HD Access R IJ TDC Euvolemic on exam Plan to cont HD on Tue// for holiday schedule next week. # Anemia of CKD Hb 13, no EPO indicated # CKD-MBD # Tertiary hyperparathyroidism Ca 9.9, improving. Cont sensipar 60mg daily Mike Rock MD, 09/28/2025 at 1:10 PM [1] Current Facility-Administered Medications Medication 0.9% NaCl injection 3 mL And 0.9% NaCl injection 1-10 mL acetaminophen (Tylenol) tablet 650 mg aspirin chew tablet 81 mg Or aspirin suppository 300 mg atorvastatin (Lipitor) tablet 80 mg carvedilol (Coreg) tablet 25 mg cinacalcet (Sensipar) tablet 60 mg dextrose IV 12.5 g Or dextrose IV 25 g glucose (Diabetic Use) oral gel heparin injection 1,000 Units heparin injection 5,000 Units ondansetron (disintegrating) (Zofran ODT) tablet 4 mg Or ondansetron (Zofran) injection 4 mg polyethylene glycol 3350 (Miralax) packet 17 g senna-docusate (Senokot-S) tablet 1 tablet ticagrelor (Brilinta) tablet 90 mg venlafaxine XR 24hr (Effexor XR) capsule 150 mg AL HUMANE AGENT SUPERVISOR * Lacie Islase, DO - 09/28/2025 8:21 AM CST Images from the original note were not included. [facility] Internal Medicine Progress Note Name: Gena Pierre Room/Bed: 9915 : 1960 65 year old PCP: Monster Garza MD Admit Date/Time: 09/19/2025 10:05 PM LOS: 9 Subjective Patient answers most yes/no questions appropriately. She denies pain today. Will trial off restraints today. Patient is pleasant and not agitated. Objective Temp: [97.5 ??F (36.4 ??C)-98.2 ??F (36.8 ??C)] 97.5 ??F (36.4 ??C) Pulse: [86-111] 88 Resp: [14-17] 16 BP: (84-112)/(60-74) 110/71 Weight change: Intake/Output Summary (Last 24 hours) at 09/28/2025 0821 Last data filed at 09/28/2025 0806 Gross per 24 hour Intake 150 ml Output 1000 ml Net -850 ml Physical Exam: General: NAD, calm HEENT: EOMI; anicteric, normal neck ROM CV: normal S1, S2; RRR; no m/r/g Pulm: CTAB; no wheezes or crackles Abd: Soft, non-distended, non-tender Neuro: Severe aphasia, does follow commands and answers yes/no questions appropriately Extremities: no LE edema bilaterally Skin: Intact, no rashes, no lesions, no erythema Assessment and Plan History of ischemic right MCA stroke Present on Admission: Yes Ischemic stroke (HCC) Present on Admission: Yes -Initially admitted to stroke team found to have ischemic stroke, continue aspirin 81mg, Brilinta 90 mg started this admission, Lipitor increased from 40 to 80 mg -PT OT recommending SNF ESRD (end stage renal disease) (HCC) Present on Admission: Yes Secondary hyperparathyroidism (HCC) Present on Admission: Yes -Nephrology following for maintenance dialysis Primary hypertension Present on Admission: Yes -Continue Coreg 25 mg twice daily Type 2 diabetes mellitus with unspecified complications (HCC) Present on Admission: Yes -A1c 4.5 -Discontinue Accu-Cheks and sliding scale insulin, will monitor glucose on daily labs Hx of major depression Present on Admission: Yes -Continue home [facility] Acquired Infection Risk Review: Hemodialysis Tunneled Catheter Subclavian (Active) No placement date or time found. Dialysis Tunneled Catheter Location: Subclavian Hemodialysis Cath Orientation: Right Number of days: Incidental findings requiring follow up: N/a Diet: DIETARY NUTRITION SUPPLEMENTS DIET RENAL DVT Prophylaxis: Heparin (DVT Prophylaxis Dose) Code Status: NO CPR(DNR) NO INTUBATION Electronically Signed By: Cherelle Islas DO 09/28/2025 8:21 AM AL HUMANE AGENT SUPERVISOR * Marlin Jeter RN - 09/28/2025 2:32 AM CST Problem: Neurosensory - Adult Goal: Achieves stable or improved neurological status Description: INTERVENTIONS Outcome: Progressing Goal: Remains free of injury related to seizures activity Description: INTERVENTIONS: Outcome: Progressing Goal: Achieves maximal functionality and self care Description: INTERVENTIONS: Outcome: Progressing Problem: Respiratory - Adult Goal: Achieves optimal ventilation and oxygenation Description: INTERVENTIONS: Outcome: Progressing Problem: Cardiovascular - Adult Goal: Maintains optimal cardiac output and hemodynamic stability Description: INTERVENTIONS: Outcome: Progressing Goal: Absence of cardiac dysrhythmias or at baseline Description: INTERVENTIONS: Outcome: Progressing Problem: Skin/Tissue Integrity - Adult Goal: Skin integrity remains intact Description: INTERVENTIONS: Outcome: Progressing Goal: Incisions, wounds, or drain sites healing without S/S of infection Description: INFECTIONS: Outcome: Progressing Goal: Oral mucous membranes remain intact Description: INTERVENTIONS: Outcome: Progressing Problem: Neurovascular Musculoskeletal - Adult Goal: Return mobility to safest level of function Description: INTERVENTIONS: Outcome: Progressing Goal: Maintain proper alignment of affected body part Description: INTERVENTIONS: Outcome: Progressing Goal: Return ADL status to a safe level of function Description: INTERVENTIONS: Outcome: Progressing Goal: Absence or reduction of edema Description: INTERVENTIONS Outcome: Progressing Goal: Maintains or improves tissue perfusion Description: INTERVENTIONS Outcome: Progressing Problem: Gastrointestinal - Adult Goal: Minimal or absence of nausea and vomiting Description: INTERVENTIONS: Outcome: Progressing Goal: Maintains or returns to baseline bowel function Description: INTERVENTIONS: Outcome: Progressing Goal: Maintains adequate nutritional intake Description: INTERVENTIONS: Outcome: Progressing Problem: Genitourinary - Adult Goal: Maintains or returns to baseline genitourinary function Description: INTERVENTIONS: Outcome: Progressing Goal: Urinary catheter remains patent Description: INTERVENTIONS: Outcome: Progressing Problem: Infection - Adult Goal: Infections are decreased or avoided Description: INTERVENTIONS: Outcome: Progressing Problem: Metabolic/Fluid and Electrolytes - Adult Goal: Electrolytes maintained within normal limits Description: INTERVENTIONS: Outcome: Progressing Goal: Hemodynamic stability and optimal renal function maintained Description: INTERVENTIONS: Outcome: Progressing Goal: Glucose maintained within prescribed range Description: INTERVENTIONS: Outcome: Progressing Problem: Hematologic - Adult Goal: Maintains hematologic stability Description: INTERVENTIONS: Outcome: Progressing Problem: Activity Tolerance Goal: STG - Pt will demonstrate increased activity tolerance to complete grooming activity Outcome: Progressing Problem: Nutrient: Inadequate protein-energy intake Goal: Total intake will meet estimated nutrient needs Outcome: Progressing Problem: Transfers Goal: LTG - Patient will transfer from one surface to another Outcome: Progressing Problem: Restraint Safety Goal: Free from restraint(s) Description: INTERVENTIONS: Outcome: Progressing Goal: Remains free of injury from restraints Description: INTERVENTIONS: Outcome: Progressing Problem: Communication/Dysarthria Goal: LTG - Patient will improve expressive language skills to allow for communication of wants andneeds in daily activities Outcome: Progressing Goal: LTG - Patient will improve receptive language skills to allow for completion of daily activities Outcome: Progressing Problem: Swallowing Goal: LTG - Patient will tolerate the least restrictive diet consistency to allow for safe consumption of daily meals Outcome: Progressing Problem: Hemodynamic Status/Cardiac Output Goal: Patient has stable vital signs and fluid balance Outcome: Progressing Problem: Fluid and Electrolyte Imbalance Goal: Fluid and electrolyte balance are achieved/maintained Outcome: Progressing Problem: Infection Goal: Signs and symptoms of infections are decreased or avoided Outcome: Progressing Problem: Fall Risk Goal: Fall risk and fall related injury risk are minimized (interventions related to the fall risk can be found in the flowsheet documentation) Outcome: Progressing Problem: Coping Goal: Patient/Healthcare Agent able to verbalize concerns and demonstrate effective coping strategies Description: INTERVENTIONS Outcome: Progressing Problem: Decision Making Goal: Patient/Healthcare Agent able to effectively weigh alternatives and participate in decision making related to treatment and care. Description: INTERVENTIONS Outcome: Progressing Problem: Behavior Goal: Pt/Family maintain appropriate behavior and adhere to behavioral management agreement, if implemented Description: INTERVENTIONS Outcome: Progressing AL HUMANE AGENT SUPERVISOR * Grand LakeBonnie romeroMALGORZATA - 09/27/2025 4:14 PM CST Social Work Progress Note [facility]charge [facility] Transportation: Transportation at discharge: Ambulance Anticipated Discharge Date: 09/30/2025 Contacts: Extended Emergency Contact Information Primary Emergency Contact: Adry Smith Mobile Relation: Cousin Shotgun Shell Reprinting Unit Operator needed? No Secondary Emergency Contact: Alberta Pierre Mobile Relation: Sister Shotgun Shell Reprinting Unit Operator needed? No Comments: Pt continues to have mitten restraints. SW spoke to [facility] transfer coordinator Dolores and pt's facility nurse nurse [phone] who stated they are unsure if they can admit pt with mittens or if there is a 24 hour restraint free policy. They stated they would call SW back once they has an answer from management. Per MDR, pt is appropriate for next level of care. Name/Phone number: Bonnie Marsh PILOT SUPERVISOR [phone] AL HUMANE AGENT SUPERVISOR * Cherelle Islas DO - 09/27/2025 2:09 PM CST Images from the original note were not included. [facility] Internal Medicine Progress Note Name: Gena Pierre Room/Bed: [facility] : 1960 65 year old PCP: Monster Garza MD Admit Date/Time: 09/19/2025 10:05 PM LOS: 8 Subjective Patient answers most yes/no questions appropriately. She denies having much of an appetite and denies any pain today. Patient is quite pleasant and cooperative however whenever her mittens are removed she does have a tendency to try to pull out her dialysis catheter, will continue to try to remove mittens as able. Objective Temp: [97.7 ??F (36.5 ??C)-98.8 ??F (37.1 ??C)] 97.7 ??F (36.5 ??C) Pulse: [76-111] 96 Resp: [14-18] 17 BP: (84-117)/(57-74) 91/61 Weight change: Intake/Output Summary (Last 24 hours) at 09/27/2025 1410 Last data filed at 09/27/2025 1115 Gross per 24 hour Intake 200 ml Output 1000 ml Net -800 ml Physical Exam: General: NAD, calm HEENT: EOMI; anicteric, normal neck ROM CV: normal S1, S2; RRR; no m/r/g Pulm: CTAB; no wheezes or crackles Abd: Soft, non-distended, non-tender Neuro: Severe aphasia, does follow commands and shakes and nods head appropriately to questions Extremities: no LE edema bilaterally Skin: Intact, no rashes, no lesions, no erythema Assessment and Plan History of ischemic right MCA stroke Present on Admission: Yes Ischemic stroke (HCC) Present on Admission: Yes - Initially admitted to stroke team found to have ischemic stroke, continue aspirin 81mg, Brilinta 90 mg started this admission, Lipitor increased from 40 to 80 mg -PT OT recommending SNF ESRD (end stage renal disease) (HCC) Present on Admission: Yes Secondary hyperparathyroidism (HCC) Present on Admission: Yes -Nephrology following for maintenance dialysis Primary hypertension Present on Admission: Yes - Continue Coreg 25 mg twice daily Type 2 diabetes mellitus with unspecified complications (HCC) Present on Admission: Yes -A1c 4.5 -Discontinue Accu-Cheks and sliding scale insulin, will monitor glucose on daily labs Hx of major depression Present on Admission: Yes -Continue home Effexor Hospital Acquired Infection Risk Review: Hemodialysis Tunneled Catheter Subclavian (Active) No placement date or time found. Dialysis Tunneled Catheter Location: Subclavian Hemodialysis Cath Orientation: Right Number of days: Incidental findings requiring follow up: N/a Diet: DIETARY NUTRITION SUPPLEMENTS DIET RENAL DVT Prophylaxis: Heparin (DVT Prophylaxis Dose) Code Status: NO CPR(DNR) NO INTUBATION Electronically Signed By: Cherelle Islas DO 09/27/2025 2:10 PM AL HUMANE AGENT SUPERVISOR * Renetta Croft RN - 09/27/2025 1:38 PM CST Care Coordination Progress Note Expected Discharge Date: 09/30/2025 Discharge Plan: SW working on SNF placement. Pt still requiring soft restraints / mittens to prevent her from pulling at her dialysis line. CM will continue to follow for discharge planning. Family Support (Name and Phone): Extended Emergency Contact Information Primary Emergency Contact: Adry Smith Mobile Relation: Cousin Shotgun Shell Reprinting Unit Operator needed? No Secondary Emergency Contact: Alberta Pierre Mobile Relation: Sister Shotgun Shell Reprinting Unit Operator needed? No Transportation at Discharge: Ambulance: READMISSION RISK SCORE is 17.9 at 1:38 PM 09/27/2025.: Name: Renetta Croft RN AL HUMANE AGENT SUPERVISOR * Peace Randhawa RN - 09/27/2025 12:34 PM CST Talked to pt's sister Alberta and gave updates on pt's care and LTC referrals [facility] as the third option and I let Alberta know that I'll give those referrals to pillowcase turner. AL HUMANE AGENT SUPERVISOR * Ele Damon RN - 09/27/2025 11:20 AM CST Post-HD Treatment Note: Hemodialysis Progress Note TX Duration: 3.5 hrs Status of Access: capped Status of Dressing: CDI Total UF volume Removed: 1L UF Goal Met: yes Patient tolerance to TX: tolerated well Medications administered: no Patient Orientation: oriented to self Treatment Complications: access lines reversed Labs Drawn: no Post-tx vitals: T: 97.7 P: 96 R: 17 BP:91/61 SpO2: 100 RA Time Report given: 1100 Report given to: Mariela DUGGAN AL HUMANE AGENT SUPERVISOR AL HUMANE AGENT SUPERVISOR * Alicja Diaz - 09/27/2025 10:57 AM CST Patient's OP HD clinic will be operating for the next 2 weeks on their holiday schedule. Patient's OP HD schedule will be adjusted. When discharging please be considerate. Lorraine Arcos Fri [place] Kidney Navigator Office:[phone] Ascom: [phone] AL HUMANE AGENT SUPERVISOR * Jennifer Catalan, PT - 09/27/2025 8:56 AM CST [facility] Department of Physical Medicine & Rehabilitation Progress Note Patient: Gena Pierre Med Record Number: [id number] Date of : 1960 Age: [age] year old 09/27/25 0800 Missed Visit Missed Visit Procedure Off Floor Patient off the floor Dialysis AL HUMANE AGENT SUPERVISOR * Ele Damon RN - 09/27/2025 7:45 AM CST Hemodialysis Pre Treatment Note Hepatitis B Status:negative/immune 09/21/25 Admitting Diagnosis:stroke DATE OF SIGNED DIALYSIS CONSENT: 09/21/25 ORDERED LENGTH OF TREATMENT: 3.5 hrs LABS REVIEWED: yes PRE-TREATMENT VITALS: BP: 107/57 HR: 86 RR: 16 SPO2: 100 RA TEMP: 97.7 ax UF GOAL: 1L PATIENT ORIENTATION: oriented to self/confused/non verbal TYPE/LOCATION OF ACCESS:Rt subclavian DATE OF LAST CVC DRESSING CHANGE 09/26/25 CVC Caps changed:today post tx PATIENT EDCUATION: yes AL HUMANE AGENT SUPERVISOR * Ele Damon RN - 09/27/2025 7:43 AM CST Problem: Hemodynamic Status/Cardiac Output Goal: Patient has stable vital signs and fluid balance Outcome: Progressing Problem: Fluid and Electrolyte Imbalance Goal: Fluid and electrolyte balance are achieved/maintained Outcome: Progressing AL HUMANE AGENT SUPERVISOR * Caitlyn Gilbert RN - 09/27/2025 2:16 AM CST Problem: Neurosensory - Adult Goal: Achieves stable or improved neurological status Description: INTERVENTIONS Outcome: Progressing Problem: Neurosensory - Adult Goal: Achieves maximal functionality and self care Description: INTERVENTIONS: Outcome: Progressing Problem: Cardiovascular - Adult Goal: Maintains optimal cardiac output and hemodynamic stability Description: INTERVENTIONS: Outcome: Progressing Problem: Skin/Tissue Integrity - Adult Goal: Skin integrity remains intact Description: INTERVENTIONS: Outcome: Progressing Problem: Neurovascular Musculoskeletal - Adult Goal: Return mobility to safest level of function Description: INTERVENTIONS: Outcome: Progressing Problem: Neurovascular Musculoskeletal - Adult Goal: Return ADL status to a safe level of function Description: INTERVENTIONS: Outcome: Progressing Problem: Genitourinary - Adult Goal: Maintains or returns to baseline genitourinary function Description: INTERVENTIONS: Outcome: Progressing Problem: Infection - Adult Goal: Infections are decreased or avoided Description: INTERVENTIONS: Outcome: Progressing Problem: Metabolic/Fluid and Electrolytes - Adult Goal: Glucose maintained within prescribed range Description: INTERVENTIONS: Outcome: Progressing Problem: Hematologic - Adult Goal: Maintains hematologic stability Description: INTERVENTIONS: Outcome: Progressing Problem: Restraint Safety Goal: Free from restraint(s) Description: INTERVENTIONS: Outcome: Progressing Problem: Fall Risk Goal: Fall risk and fall related injury risk are minimized (interventions related to the fall risk can be found in the flowsheet documentation) Outcome: Progressing AL HUMANE AGENT SUPERVISOR * Yamel Huddleston SLP - 09/26/2025 3:33 PM CST [facility] Speech/Language Treatment Patient: Gena Pierre [facility] Record Number: [id number] Date of : 1960 Age: [age] year old PPE: gloves Impressions: Pt was seen for therapy re: expressive language function. Pt's responses were more accurate when pt was given phonemic cues along with gestures. Pt continues to produce minimal spontaneous speech. Will continue speech therapy for swallow/speech/language/communicative function. Discharge Recommendation: Patient will benefit from multidisciplinary inpatient therapies. Speech therapy is recommended to improve swallow and communicative function. Subjective: What matters most to this patient? Pt produced minimal spontaneous speech. Mental Status: Alert and responsive Pain: Patient has no indicated pain. Follow-up for pain: No follow-up for pain indicated and patient agreed to proceed with treatment Objective: Patient will demonstrate ability to name common objects with cues, complete phrases and produce rote speech tasks. Assessment: Patient did not name pictured objects spontaneously but with phonemic cues, pt named 7/12 items. Pt's accuracy also increased when pt was given visual and verbal cues (e.g. gestured function of objects; verbal description of items). Perseverative responses were noted throughout therapy s ession. Pt answered some yes/no questions with verbalizations. Pt completed common phrases with multiple cues 3/6 trials. Pt also completed rote speech tasks (counting aloud 1-10; stating the days ofthe week) with cues. Encouraged pt to attempt verbal descriptions or use of similar words during word-finding difficulties. Education: Patient instructed in recommedations and indicated understanding. Goals: Short Term Goals: Patient to demonstrate no clinical signs/symptoms of aspiration or difficulty swallowing with recommended diet. Patient to demonstrate use of strategies for improved expressive communication. Skill Training Program Coordinator Goal(s): Patient to discharge to appropriate next level of inpatient care. If patient is discharged from the facility, this note serves as a discharge note if further speech therapy visits did not occur. AL HUMANE AGENT SUPERVISOR * Kathy Sebastian MD - 09/26/2025 11:20 AM CST [facility] Nephrology Progress Note Brief Hospital Course: Gena Pierre is a 65 year old female w/ PMH significant for ESKD on HD MWF via R-IJ Permcath, hypertension, type 2 diabetes mellitus, right-sided breast cancer, compression fraction of T9 vertebra, thyroid nodule, syncope, uterine mass, 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 The patient presented with confusion, expressive aphasia and chronic left-sided weakness from prior stroke in 2024. In ED, blood pressure was 122/69 mmHg, labs were significant for serum sodium 140 mmol/L, potassium-3.7 mmol/L, CO2-29 mmol/L, BUN-43 mg/dL and creatinine- 9.40 mg/dL. CT head was negative for any evidence of acute hemorrhage, herniation or large territorial infarct. 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 INTERVAL HISTORY: - Patient seen in room while on bed without any oxygen and taking breakfast. - Got HD session yesterday with UF of 600 ml due to intra dialytic hypotension. - No acute event over last 24 hours. ASSESSMENT # ESRD on maintenance hemodialysis [facility] -Access: R-IJ Permcath -Last HD on 09/25 -Arpq-dhec-AW4-25 mmol/L -Electrolytes: Na-139 mmol/L, K-3.8 mmol/L -Volume Status: Euvolemic # Chronic kidney disease-mineral and bone disorder (CKD-MBD) -Ca-10.0 mg/dl, P-6.6 mg/dl -Alb-3.5 g/dl -PTH-1836.5 pg/ml -Vitamin D-17.8 ng/ml -On Sensipar 60 mg daily as outpatient # Anemia of chronic kidney disease -Hb-12.1 g/dl-at goal -Ferritin-1497 ng/ml, TSAT-84% -Transfuse if Hb < 7 g/dl -No need for MARCO or iron for now # Hypertension -BP-110/70 mmHg -Home medications: Carvedilol 12.5 mg twice daily -Monitor blood pressure, resume home antihypertensives and advance doses as necessary RECOMMENDATIONS - Nephrology following patient HD requirements. - Resume back on Cinacalcit 60 mg once day - Next HD on 09/27 according to [facility] schedule. Please refer to the initial nephrology consult note for additional information. Hospital Medications: Medications[1] Medications[2] Physical Exam: Vitals: 09/25/25 1939 09/25/25 2338 09/26/25 0412 09/26/25 0809 BP: 113/68 101/61 103/71 110/70 Pulse: 91 99 108 104 Resp: Temp: 99.3 ??F (37.4 ??C) 99.1 ??F (37.3 ??C) 99.5 ??F (37.5 ??C) 99 ??F (37.2 ??C) SpO2: 97% 95% 100% 99% Weight: Height: Intake/Output Summary (Last 24 hours) at 09/26/2025 1121 Last data filed at 09/25/2025 1855 Gross per 24 hour Intake 120 ml Output 600 ml Net -480 ml Constitutional: Appearance: Normal appearance. Comments: awake Rate and Rhythm: Normal rate. Heart sounds: Normal heart sounds. Pulmonary: Effort: Pulmonary effort is normal. Breath sounds: Normal breath sounds. Abdominal: Palpations: Abdomen is soft. Musculoskeletal: Right lower leg: No edema. Left lower leg: No edema. Neurological: looks confused during examination. Dialysis access: R-IJ Permcath LABS: Recent Labs Component Name 09/25/25184809/24/25183609/24/258 NA 139 139 137 POTASSIUM 3.8 4.1 4.0 CL 99 98 99 CO2 24 BUN 16 29* 20 CREATININE 5.50* 8.57* 6.62* Recent Labs Component Name 09/25/25 18409/24/25 18309/24/25 0358 09/21/25 0436 09/20/25 0412 05/13/25 0720 05/12/25 0623 CALCIUM 10.0 10.4* 10.5* - 10.7* 10.7* 7.7* 7.8* PHOS - - - - 6.6* 3.2 3.3 - = values in this interval not displayed. Recent Labs Component Name 09/20/25 04104/29/25 0115 PTHINTACT 1,836.5* 1,633.6* Recent Labs Component Name 09/25/25184809/24/25 18309/24/25 0358 WBC 11.4* 9.3 9.7 HGB 12.1 12.2 12.1 Recent Labs Component Name 04/28/25 0940 IRON 99 TIBC 118* FERRITIN 1,497* Kathy Alvarez MD Nephrology Fellow [1] 0.9% NaCl 3 mL Intracatheter q8h aspirin 81 mg Oral QDAY Or aspirin 300 mg Rectal QDAY atorvastatin 80 mg Oral AT BEDTIME carvedilol 25 mg Oral BID WC cinacalcet 60 mg Oral QDAY heparin 1,000 Units Intracatheter post-Dialysis once heparin 5,000 Units Subcutaneous q8h senna-docusate 1 tablet Oral QDAY ticagrelor 90 mg Oral BID venlafaxine XR 24hr 150 mg Oral QDAY WITH DINNER [2] Cosigned by Mike Rock MD at 09/27/2025 6:31 AM ANIMAL HUMANE AGENT SUPERVISOR AL HUMANE AGENT SUPERVISOR AL HUMANE AGENT SUPERVISOR Associated attestation - Mike Rock MD - 09/27/2025 6:31 AM ANIMAL HUMANE AGENT SUPERVISOR Nephrology Attending Physician I have seen and examined the patient with house-staff on round. I agree with the house-staff note. 09/26/2025 Mike Rock MD Division of Nephrology * Beatrice Thompson, GUI - 09/26/2025 8:40 AM CST [facility] Physical Medicine and Rehabilitation Occupational Therapy Progress Note Patient: Gena Pierre Med Record Number: [id number] Date of : 1960 Age: [age] year old Co-tx with PT 2/2 skilled assist required to progress functional mobility PPE worn by staff: gloves;mask - procedural PPE worn by patient: gown - patient, clean;socks - clean Recommendations: Discharge OT Discharge Recommendations: Patient would benefit from multidisciplinary therapy This recommendation is made due to ongoing OT functional needs: address functional deficits Nurse and Physical Therapist (co-tx) contacted regarding patient status and/or discharge plan. Activity Level: as tolerated SUBJECTIVE: Subjective: Patient presents with aphasia. Agreeable to therapy. PATIENT GOALS / WHAT MATTERS MOST TO THE PATIENT: Patient's Primary Concern: Patient does not state. Pain Assessment: Pain Assessment Pain Scale/Observation: No/denies pain OBJECTIVE: At start of therapy session, patient found in bed and with no alarm General Appearance: NAD Vitals: (*Assess the 3 levels of oxygen saturations both for room air and 02 unless rest on room air is 88% or less). Rest BP: 111/54 (73) HR: 99 Sp02 Sp02 99% Room Air Observations: No s/s distress noted. Mental Status/Cognition: Orientation Level: Disoriented to Place;Disoriented to Situation;Disoriented to Time Attention Span: Difficulty attending to directions Memory: Decreased recall of recent events;Decreased short term memory;Decreased recall of biographical information Following Commands: Follows one step commands consistently (Patient requires tactile and demonstrative cueing 2/2 aphasia.) Safety Judgement: Decreased awareness of need for safety Awareness of Errors: Decreased awareness of deficits;Assistance required to identify errors made;Assistance required to correct errors made Problem Solving: Assistance required to identify errors made;Assistance required to generate solutions;Assistance required to implement solutions Mobility: a gait belt and non-slip socks were used for all out of bed activity this date. Bed Mobility: Supine to Sit: Minimal Assistance with HOB in semi-fowlers position Sit to Supine: Activity Does Not Occur (In bedside chair at end of session.) Transfers: Sit to Stand: Minimal Assistance Stand to Sit: Minimal Assistance Bed to Chair: Minimal Assistance to Right;X 2;Requires Verbal Cues for Safety;Requires Physical Cues for Safety Type of Transfer: Other (Comment) (Stand-step) Transfer Device: Gait belt (B DATA GOVERNANCE CONSULTANT) Functional Ambulation: Patient ambulated 3-4 steps to bedside chair with minimal assist x 2 using B DATA GOVERNANCE CONSULTANT. Balance: Balance Scales/Tests Used: Sitting: Static/Dynamic;Standing: Static/Dynamic Sitting - Static: Good -;Fair +;With Both Upper Extremity's Support Sitting - Dynamic: Good - Standing - Static: Fair +;With Both Upper Extremity's Support Standing - Dynamic: Fair;With Both Upper Extremity's Support Activities of Daily Living: Feeding: Minimal Assistance (Patient requires set-up and cueing to participate in eating breakfast.Therapist assist with positioning and opening containers. Patient requries maximal cueing to attendto L side of body.) Oral Facial Hygiene: Moderate Assistance (Maximal cues to wash L side of face. Patient uses RUE to wash face. Patient declines [id number] to wash face using LUE.) Lower Body Dressing: Maximal Assistance (Requires demonstration and cueing throughout task to don alberto socks.) ACTIVITY TOLERANCE: Activity Tolerance: Requires rest breaks Modified Seminary: Current Modified Seminary Score: 5 AM-PAC 6 Clicks Daily Activity Raw Score:: 12 TREATMENT/INTERVENTIONS: ADL training Cognitive retraining Functional transfer training Endurance training Bed mobility Energy conservation Safety awareness EDUCATION: While performing OT, Patient was instructed in:functional mobility training, self-care training, cognitive retraining, energy conservation, safety awareness/fall precautions , discharge planning, use of call light Presented to patient who demonstrates Questionable understanding of instructions given. INFORMED CONSENT TO TREATMENT: Plan of care is discussed but patient with questionable understanding. ASSESSMENT: Patient continues to benefit from skilled Occupational Therapy to achieve the following functional goals. Short Term Goals: Goal Formation With patient Cognition: 1 step commands and 50% of the time Patient will increase orientation to person, place, time, and situation Patient will perform grooming at edge of bed and with minimal assist Patient will perform supine to/from sit with standby assist (Updated, 09/26) Patient will transfer sit to stand with standby assist (Updated, 09/26) Senior Care Goal(s): Patient to discharge to appropriate next level of inpatient care Plan: Patient continues to benefit from skilled therapy services., Goals updated this date. If patient is discharged from the facility, this note serves as a discharge summary if further occupational therapy visits did not occur. Refer to filed flowsheet for further details. Following therapy session, patient left in patient bedside chair , with waffle seat cushion in place, with chair alarm on and positioned under patient's buttocks , with call light within reach, with Maxwell DUGGAN aware, with fall mats in place, all lines/tubes intact. AL HUMANE AGENT SUPERVISOR * Cherelle Islas DO - 09/26/2025 8:35 AM CST Images from the original note were not included. [facility] Internal Medicine Progress Note Name: Gena Pierre Room/Bed: 9915 : 1960 65 year old PCP: Monster Garza MD Admit Date/Time: 09/19/2025 10:05 PM LOS: 7 Subjective Patient under the dressing over her dialysis catheter several times overnight for which restraints (mittens) were replaced. Will trial off restraints today if possible. Objective Temp: [97.4 ??F (36.3 ??C)-99.5 ??F (37.5 ??C)] 99.5 ??F (37.5 ??C) Pulse: [80-108] 108 Resp: [16-20] 16 BP: (72-113)/(58-72) 103/71 Weight change: Intake/Output Summary (Last 24 hours) at 09/26/2025 0835 Last data filed at 09/25/2025 1855 Gross per 24 hour Intake 120 ml Output 600 ml Net -480 ml Physical Exam: General: NAD, calm HEENT: EOMI; anicteric, normal neck ROM CV: normal S1, S2; RRR; no m/r/g Pulm: CTAB; no wheezes or crackles Abd: Soft, non-distended, non-tender Neuro: Severe aphasia, does follow commands and shakes and nods head appropriately to questions Extremities: no LE edema bilaterally Skin: Intact, no rashes, no lesions, no erythema Assessment and Plan History of ischemic right MCA stroke Present on Admission: Yes Ischemic stroke (HCC) Present on Admission: Yes - Initially admitted to stroke team found to have ischemic stroke, continue aspirin 81mg, Brilinta 90 mg started this admission, Lipitor increased from 40 to 80 mg -PT OT recommending SNF ESRD (end stage renal disease) (HCC) Present on Admission: Yes Secondary hyperparathyroidism (HCC) Present on Admission: Yes -Nephrology following for maintenance dialysis Primary hypertension Present on Admission: Yes - Continue Coreg 25 mg twice daily Type 2 diabetes mellitus with unspecified complications (HCC) Present on Admission: Yes -A1c 4.5 -Discontinue Accu-Cheks and sliding scale insulin, will monitor glucose on daily labs Hx of major depression Present on Admission: Yes -Continue home Effexor Hospital Acquired Infection Risk Review: Hemodialysis Tunneled Catheter Subclavian (Active) No placement date or time found. Dialysis Tunneled Catheter Location: Subclavian Hemodialysis Cath Orientation: Right Number of days: Incidental findings requiring follow up: N/a Diet: DIETARY NUTRITION SUPPLEMENTS DIET RENAL DVT Prophylaxis: Heparin (DVT Prophylaxis Dose) Code Status: NO CPR(DNR) NO INTUBATION Electronically Signed By: Cherelle Islas DO 09/26/2025 8:35 AM AL HUMANE AGENT SUPERVISOR * Pepito Garcia, COMMUNITY PHARMACIST - 09/26/2025 8:02 AM CST [facility] Physical Therapy Progress Note Patient: Gena Pierre Med Record Number: [id number] Date of : 1960 Age: [age] year old Co-treat/co-eval was performed with Occupational Therapy to optimize patient performance and outcomes as requires assist of a second skilled clinician due to complex mobility needs. The co-treatment benefits the patient by providing quality treatments through interdisciplinary methods. PPE worn by staff: gloves;mask - procedural PPE worn by patient: gown - patient, clean;socks - clean Recommendations: Discharge PT Discharge Recommendations: Patient would benefit from multidisciplinary therapy This recommendation is made due to ongoing PT functional needs: address functional deficits Recommended Transportation Method: Stretcher/Ambulance Patient is being recommended for post acute care, therefore DME recommendations will be made at thenext level of care. SUBJECTIVE: Subjective: Pt agreeable to PT with aphasia; Answers yes/no questions Pain Assessment: Pain Assessment Pain Scale/Observation: No/denies pain PRECAUTIONS: Weight Bearing Status: (no restrictions) Activity Level: Activity as Tolerated Other Precautions: Alberto Mittens OBJECTIVE: At start of therapy session, patient found in bed and with bed alarm on General Appearance: 65 y/o F Vitals: (*Assess the 3 levels of oxygen saturations both for room air and 02 unless rest on room air is 88% or less). Rest BP: 111/54 (73) HR: 99 Sp02 99% Room Air Observations: Patient on RA. No signs or symptoms of distress with activity/positional change. Patient denying SOB/lightheadedness/dizziness throughout session. Mental Status/Cognition: Level of Consciousness-Adult: (alert) Orientation Level: Disoriented to Place;Disoriented to Situation;Disoriented to Time (A&O x1; pt with aphasia) Cognition: (cooperative, follows commands) Attention Span: Difficulty attending to directions;Attends with cues to redirect Memory: Decreased recall of recent events Following Commands: Follows one step commands consistently (Patient requires tactile and demonstrative cueing 2/2 aphasia) Safety Judgement: Decreased awareness of need for safety Awareness of Errors: Decreased awareness of deficits Problem Solving: Assistance required to generate solutions;Assistance required to identify errors made;Assistance required to implement solutions Mobility: A gait belt and non-slip socks were used for all out of bed activity this date. Bed Mobility: Supine to Sit: Minimal Assistance with HOB in high fowlers position Sit to Supine: Activity Does Not Occur (pt in chair post session) Transfers: Sit to Stand: Minimal Assistance Stand to Sit: Minimal Assistance Bed to Chair: Minimal Assistance to Right;X 2;Requires Verbal Cues for Safety;Requires Physical Cues for Safety Type of Transfer: Other (Comment) (stand step; pt took 3-4 small lateral steps to the chair) Transfer Device: Gait belt (B DATA GOVERNANCE CONSULTANT) Gait: Weight Bearing Status: (no restrictions) Distance Ambulated (ft): 0 FEET Balance: Balance Scales/Tests Used: Sitting: Static/Dynamic;Standing: Static/Dynamic Sitting - Static: Good -;With Both Upper Extremity's Support Sitting - Dynamic: Good - Standing - Static: Fair +;With Both Upper Extremity's Support Standing - Dynamic: Fair;With Both Upper Extremity's Support ACTIVITY TOLERANCE: Activity Tolerance: Requires rest breaks TREATMENT/INTERVENTIONS: coordination exercises, bed mobility training, and transfer training Modified Seminary: Current Modified Dona Score: 5 AM-PAC 6 Clicks Mobility Raw Score:: 8 EDUCATION: While performing PT, Patient was instructed in:functional mobility training, safety awareness/fall precautions , stroke education and precautions, use of call light Presented to patient who demonstrates Fair understanding of instructions given. ASSESSMENT: Patient would benefit from additional Physical Therapy sessions to achieve the following functionalgoals to enhance independence. Short Term Goals: Goal Formation Patient unable to participate in goal formulation Patient will perform bed mobility with moderate assist Patient will be able to sit edge of bed for 10 minutes with standby assist Skill Training Program Coordinator Goal(s): Patient to discharge to appropriate next level of inpatient care. INFORMED CONSENT TO TREATMENT: Plan of care including recommended therapy, goals and frequency, discussed with patient who understands and agrees to proceed. Equipment Issued: gait belt Plan: Patient continues to benefit from skilled therapy services., Continue with goals as established. If patient is discharged from the facility, this note serves as a discharge summary if further physical therapy visits did not occur. Refer to filed flowsheet for further details. Education provided to patient for Call Don't Fall for fall prevention with safe mobility within room/hallway with RN/PCT staff. Following therapy session, patient left in patient bedside chair , in patient bedside chair withoutpurewick, with waffle seat cushion in place, with chair alarm on and positioned under patient's buttocks , with call light within reach, with RN in room, with RNMaxwell aware, with therapy cues visible on white board, with fall mats in place. AL HUMANE AGENT SUPERVISOR * Caitlyn Gilbert RN - 09/26/2025 1:39 AM CST Problem: Neurosensory - Adult Goal: Achieves stable or improved neurological status Description: INTERVENTIONS Outcome: Progressing Problem: Neurosensory - Adult Goal: Achieves maximal functionality and self care Description: INTERVENTIONS: Outcome: Progressing Problem: Cardiovascular - Adult Goal: Maintains optimal cardiac output and hemodynamic stability Description: INTERVENTIONS: Outcome: Progressing Problem: Skin/Tissue Integrity - Adult Goal: Skin integrity remains intact Description: INTERVENTIONS: Outcome: Progressing Problem: Skin/Tissue Integrity - Adult Goal: Incisions, wounds, or drain sites healing without S/S of infection Description: INFECTIONS: Outcome: Progressing Problem: Neurovascular Musculoskeletal - Adult Goal: Return mobility to safest level of function Description: INTERVENTIONS: Outcome: Progressing Problem: Neurovascular Musculoskeletal - Adult Goal: Return ADL status to a safe level of function Description: INTERVENTIONS: Outcome: Progressing Problem: Genitourinary - Adult Goal: Maintains or returns to baseline genitourinary function Description: INTERVENTIONS: Outcome: Progressing Problem: Infection - Adult Goal: Infections are decreased or avoided Description: INTERVENTIONS: Outcome: Progressing Problem: Metabolic/Fluid and Electrolytes - Adult Goal: Electrolytes maintained within normal limits Description: INTERVENTIONS: Outcome: Progressing Problem: Metabolic/Fluid and Electrolytes - Adult Goal: Glucose maintained within prescribed range Description: INTERVENTIONS: Outcome: Progressing Problem: Hematologic - Adult Goal: Maintains hematologic stability Description: INTERVENTIONS: Outcome: Progressing Problem: Activity Tolerance Goal: STG - Pt will demonstrate increased activity tolerance to complete grooming activity Outcome: Progressing Problem: Restraint Safety Goal: Free from restraint(s) Description: INTERVENTIONS: Outcome: Progressing Problem: Restraint Safety Goal: Remains free of injury from restraints Description: INTERVENTIONS: Outcome: Progressing Problem: Infection Goal: Signs and symptoms of infections are decreased or avoided Outcome: Progressing Problem: Fall Risk Goal: Fall risk and fall related injury risk are minimized (interventions related to the fall risk can be found in the flowsheet documentation) Outcome: Progressing Problem: Decision Making Goal: Patient/Healthcare Agent able to effectively weigh alternatives and participate in decision making related to treatment and care. Description: INTERVENTIONS Outcome: Progressing Problem: Behavior Goal: Pt/Family maintain appropriate behavior and adhere to behavioral management agreement, if implemented Description: INTERVENTIONS Outcome: Progressing AL HUMANE AGENT SUPERVISOR * Jada Aguila RN - 09/25/2025 5:56 PM CST Hemodialysis Progress Note Duration: 3.5 hours Access: CVC Rt IJ Total UF volume: BVP:60.1 Medications administered: none Post-HD Treatment Note: Blood returned, CVC lines flushed and capped. Pt hypotensive during tx, Physicist [place] aware. Pt pulled off CVC dressing twice. Dressing changed again 1715 Primary nurse aware. Post-tx vitals: T:97.9 P:81 R:20 BP:99/61 SpO2:100% Report given to:Laz DUGGAN AL HUMANE AGENT SUPERVISOR * Bonnie Marsh MSW - 09/25/2025 4:05 PM CST Social Work Progress Note Discharge Plan Disposition: SNF Transportation: Transportation at discharge: Ambulance Anticipated Discharge Date: 09/28/2025 Contacts: Extended Emergency Contact Information Primary Emergency Contact: LuisAdry Mobile Relation: Cousin Shotgun Shell Reprinting Unit Operator needed? No Secondary Emergency Contact: Alberta Pierre Mobile Relation: Sister Shotgun Shell Reprinting Unit Operator needed? No Comments: Per MDR, pt is appropriate for next level of care. Restraints removed 09/25/2025. Pt has no accepting facilities at this time. SW sent update clinicals to pending referrals. Name/Phone number: MALGORZATA Almanza [phone] AL HUMANE AGENT SUPERVISOR * Mike Rock MD - 09/25/2025 2:30 PM CST NEPHROLOGY ATTENDING PROGRESS NOTE Hospital Day: 6 Brief History: Gena Pierre is a 65 year old female w ESKD on HD MWF via R-IJ Permcath, hypertension, type 2 diabetes mellitus, right-sided breast cancer, compression fraction of T9 vertebra, thyroid nodule, syncope, uterine mass, CVA, who presented with code stroke. CT without acute changes. Subjective/Interval Change: Today she was lying down comfortably, no new complaints. Waiting for placement according to the primary team. Medications[1] Examination: BP 96/71 (Patient Position: Lying) Pulse 83 Temp 98.2 ??F (36.8 ??C) (Oral) Resp 20 Ht 1.651 m (5' 5) Wt 78 kg (172 lb) SpO2 100% General: Alert, no distress Neck: No JVD Heart: Regular rate and rhythm, S1, S2 normal, no murmur, click, rub or gallop. Lung: Clear to auscultation bilaterally. Ext: No edema Data: Recent Labs Component Name 09/24/25 1837 09/24/25 0358 09/22/25 2339 WBC 9.3 9.7 14.1* HGB 12.2 12.1 10.2* HCT 37.9 37.7 32.0* PLTCOUNT 349 341 349 Recent Labs Component Name 09/24/25 1837 09/21/25 0436 09/20/25 0412 POTASSIUM 4.1 - 3.7 3.7 CO2 26 - 29 29 BUN 29* - 43* 43* CREATININE 8.57* - 9.14* 9.14* CALCIUM 10.4* - 10.7* 10.7* ALT - - 13 AST - - 14 GLUCOSE 131* - 69* 69* - = values in this interval not displayed. The above studies were independently reviewed by me. Assessment/Plan # ESRD on HD Access R IJ TDC Euvolemic on exam Plan to cont HD on M/W/F while in the hospital # Anemia of CKD Hb 12.2, no EPO indicated # CKD-MBD # Tertiary hyperparathyroidism Ca 10.4 today. Cont sensipar 60mg daily Mike Rock MD, 09/25/2025 at 2:30 PM [1] Current Facility-Administered Medications Medication 0.9% NaCl injection 3 mL And 0.9% NaCl injection 1-10 mL acetaminophen (Tylenol) tablet 650 mg aspirin chew tablet 81 mg Or aspirin suppository 300 mg atorvastatin (Lipitor) tablet 80 mg carvedilol (Coreg) tablet 25 mg cinacalcet (Sensipar) tablet 60 mg dextrose IV 12.5 g Or dextrose IV 25 g glucose (Diabetic Use) oral gel heparin injection 1,000 Units heparin injection 5,000 Units labetalol (Normodyne; Trandate) injection 10 mg Or hydrALAZINE (Apresoline) injection 10 mg insulin aspart (NovoLOG) pen 0-12 Units ondansetron (disintegrating) (Zofran ODT) tablet 4 mg Or ondansetron (Zofran) injection 4 mg polyethylene glycol 3350 (Miralax) packet 17 g senna-docusate (Senokot-S) tablet 1 tablet ticagrelor (Brilinta) tablet 90 mg venlafaxine XR 24hr (Effexor XR) capsule 150 mg AL HUMANE AGENT SUPERVISOR * Aditi Chan SLP - 09/25/2025 1:45 PM CST [facility] Department of Physical Medicine & Rehabilitation Progress Note Patient: Gena Pierre Med Record Number: [id number] Date of : 1960 Age: [age] year old 09/25/25 1345 Missed Visit Missed Visit Procedure Off Floor Patient off the floor Dialysis Speech-Language Pathologist AL HUMANE AGENT SUPERVISOR * Jada Aguila RN - 09/25/2025 1:35 PM CST Problem: Hemodynamic Status/Cardiac Output Goal: Patient has stable vital signs and fluid balance Outcome: Progressing Problem: Fluid and Electrolyte Imbalance Goal: Fluid and electrolyte balance are achieved/maintained Outcome: Progressing Problem: Infection Goal: Signs and symptoms of infections are decreased or avoided Outcome: Progressing AL HUMANE AGENT SUPERVISOR * Dee Giraldo, PT - 09/25/2025 1:25 PM CST [facility] Department of Physical Medicine & Rehabilitation Progress Note Patient: Gena Pierre Med Record Number: [id number] Date of : 1960 Age: [age] year old 09/25/25 1325 Missed Visit Missed Visit Procedure Off Floor Patient off the floor Dialysis Pt approached for therapy session, however is off the floor at dialysis at this time. Will attempt back for therapy 09/26 as able. AL HUMANE AGENT SUPERVISOR * Cherelle Islas, - 09/25/2025 1:00 PM CST Images from the original note were not included. [facility] Internal Medicine Progress Note Name: Gena Pierre Room/Bed: [facility] : 1960 65 year old PCP: Monster Garza MD Admit Date/Time: 09/19/2025 10:05 PM LOS: 6 Subjective Patient is alert, she does shake her head yes and no appropriately to questions and follows commands. Discussed that I would like to remove her restraints today for which she nodded and I discussed that if they were removed she needs to not touch her dialysis catheter, will trial off restraints today. Objective Temp: [97.4 ??F (36.3 ??C)-99.1 ??F (37.3 ??C)] 97.4 ??F (36.3 ??C) Pulse: [80-103] 80 Resp: [14-18] 18 BP: (93-125)/(51-74) 112/70 Weight change: Intake/Output Summary (Last 24 hours) at 09/25/2025 1301 Last data filed at 09/24/2025 1816 Gross per 24 hour Intake 120 ml Output 1 ml Net 119 ml Physical Exam: General: NAD, calm HEENT: EOMI; anicteric, normal neck ROM CV: normal S1, S2; RRR; no m/r/g Pulm: CTAB; no wheezes or crackles Abd: Soft, non-distended, non-tender Neuro: Severe aphasia, does follow commands and shakes and nods head appropriately to questions Extremities: no LE edema bilaterally Skin: Intact, no rashes, no lesions, no erythema Assessment and Plan History of ischemic right MCA stroke Present on Admission: Yes Ischemic stroke (HCC) Present on Admission: Yes - Initially admitted to stroke team found to have ischemic stroke, continue aspirin 81mg, Brilinta 90 mg started this admission, Lipitor increased from 40 to 80 mg -PT OT recommending SNF ESRD (end stage renal disease) (HCC) Present on Admission: Yes Secondary hyperparathyroidism (HCC) Present on Admission: Yes -Nephrology following for maintenance dialysis Primary hypertension Present on Admission: Yes - Continue Coreg 25 mg twice daily Type 2 diabetes mellitus with unspecified complications (HCC) Present on Admission: Yes -A1c 4.5 -Discontinue Accu-Cheks and sliding scale insulin, will monitor glucose on daily labs Hx of major depression Present on Admission: Yes -Continue home Effexor Hospital Acquired Infection Risk Review: Hemodialysis Tunneled Catheter Subclavian (Active) No placement date or time found. Dialysis Tunneled Catheter Location: Subclavian Hemodialysis Cath Orientation: Right Number of days: Incidental findings requiring follow up: N/a Diet: DIET CARDIAC DIETARY NUTRITION SUPPLEMENTS DVT Prophylaxis: Heparin (DVT Prophylaxis Dose) Code Status: NO CPR(DNR) NO INTUBATION Electronically Signed By: Cherelle Islas DO 09/25/2025 1:01 PM AL HUMANE AGENT SUPERVISOR * Gilmar Carr RN - 09/24/2025 9:25 PM CST Problem: Restraint Safety Goal: Free from restraint(s) Description: INTERVENTIONS: Outcome: Progressing Problem: Genitourinary - Adult Goal: Urinary catheter remains patent Description: INTERVENTIONS: Outcome: Progressing Problem: Genitourinary - Adult Goal: Maintains or returns to baseline genitourinary function Description: INTERVENTIONS: Outcome: Progressing Problem: Gastrointestinal - Adult Goal: Maintains adequate nutritional intake Description: INTERVENTIONS: Outcome: Progressing Problem: Gastrointestinal - Adult Goal: Maintains or returns to baseline bowel function Description: INTERVENTIONS: Outcome: Progressing Problem: Gastrointestinal - Adult Goal: Minimal or absence of nausea and vomiting Description: INTERVENTIONS: Outcome: Progressing Problem: Skin/Tissue Integrity - Adult Goal: Oral mucous membranes remain intact Description: INTERVENTIONS: Outcome: Progressing Problem: Skin/Tissue Integrity - Adult Goal: Skin integrity remains intact Description: INTERVENTIONS: Outcome: Progressing Problem: Restraint Safety Goal: Remains free of injury from restraints Description: INTERVENTIONS: Outcome: Progressing AL HUMANE AGENT SUPERVISOR * Velma Salcedo MD - 09/24/2025 5:45 PM CST Images from the original note were not included. [facility] Stroke Progress Note Gena Pierre Age: [age] year old Date of : 1960 Date of Admission: 09/19/2025 Hospital Day: 5 Admission history and Hospital course: Gena Pierre is a 65 year old female with past medical history of CVA, DM2, ESRD on HD, hyperparathyroidism who presents to the ED for the above. Patient unable to provide any history. When asked hername probably later. RN reports patient has been waxing and waning in her ability to communicate,she was able to state her name and when she does dialysis. This has been goingon since 08/31 when she had a UTI. RN is questioning whether patient is altered vs uncooperative. Family at bedside earlier reportedly state patient A&O x 4 a week ago. Family and patient reporting in ED dislike toward current rehab facility and do not want to go back there. head without contrast did not show any intracranial bleed. EEG has been normal at OSH. MRI shows a small focus of left frontal lobe subcortical infarct. Echo done in April had shown normal EF, without any evidence of PFO, or left atrial thrombus. Loop recorder in place. MRA showing patchy multifocal stenosis -possibly secondary to atherosclerosis versus vasculitis versus vasospasm. DSA was performed and was concerning for possible QUALITY MANAGEMENT NURSE vasculitis- versus multifocal atherosclerosis. Discussed with rheumatology given extensive prior workup for vasculitis which was all negative, determining that patient's presentation is more likely business development representative of multifocal atherosclerosis. Patient stable to discharge back to SNF today however patient has restraints and needs to be off restraints for 24 hours for SNF and needs a plan to protect his HD cathetar. Subjective (today) Overnight: NGT placement, pulled out and replaced, now in soft restraints and mittens. Patient remained afebrile (Tm Temp (24hrs), Av.4 ??F (36.9 ??C), Min:98.2 ??F (36.8 ??C), Max:98.9 ??F (37.2??C) ) with blood pressures ranging from Systolic (24hrs), Av , Min:104 , Max:134 Nurse concern: None Objective Intake & Output Intake/Output Summary (Last 24 hours) at 09/24/2025 1746 Last data filed at 09/24/2025 1425 Gross per 24 hour Intake 240 ml Output 1 ml Net 239 ml last BM: Unmeasured Stool Occurrence: 1 Exam: General Appearance: Laying in bed, in not acute distress. Mental status: Awake, A&Ox0 Language: Severe aphasia, not responding to questions, intermittently responds to commands such as wiggling her toes or squeezing her fingers Speech: Unable to assess Visual rodriguez: CN II: visual rodriguez grossly intact Neglect: No visual or tactile neglect noted CN 3 - 12:CN III, IV, : PERRLA, EOMI CN V: Responds to touch of V1-3,CN VII: Facial movements symmetric and Notable for left UMN Weakness,Hearing grossly intact to voice, CN IX, X: Pallet elevates symmetrically, CN XI: head turn and shoulder shrug intact based on observation,CN XII: Tongue midline without fasciculations or atrophy and Unable to examine Motor: No tone or movement abnormalities noted Objective strength: Unable to follow commands, moving all extremities to gravity without issue. Muscle Stretch Reflexes BI TRI BR PAT ACH TOES Right 2+ 2+ 2+ 2+ 2+ Down Left 2+ 2+ 2+ 2+ 2+ Down Sensory Responds to light touch in all extremities. Cerebellar Unable to Assess Gait Deferred Investigations Objective Last NIH NIH Total: 9 (09/24/2025 7:34 AM) Assessment Interval: Shift (09/24/2025 7:34 AM) Level of Consciousness: 0 (09/24/2025 11:57 AM) LOC: Questions (Month and Age): 2 (09/24/2025 7:34 AM) LOC: Commands (opens/closes, eyes/fists): 1 (09/24/2025 7:34 AM) Best Gaze: 0 (09/24/2025 7:34 AM) Visual: 0 (09/24/2025 7:34 AM) Facial Palsy: 0 (09/24/2025 7:34 AM) Motor Arm Function - Right: 1 (09/24/2025 7:34 AM) Motor Arm Function - Left: 0 (09/24/2025 7:34 AM) Motor Leg - Right: 0 (09/24/2025 7:34 AM) Motor Leg - Left: 0 (09/24/2025 7:34 AM) Limb Ataxia: 0 (09/24/2025 7:34 AM) Sensory: 1 (09/24/2025 7:34 AM) Best Language: 2 (09/24/2025 7:34 AM) Dysarthria: 2 (09/24/2025 7:34 AM) Extinction and Inattention: 0 (09/24/2025 7:34 AM) Ancillary tests: Brain Imaging: CT Head CT HEAD WO CONTRAST 09/19/2025 Narrative PROCEDURE: CT HEAD WO CONTRAST, DATE/TIME OF EXAM: 09/19/2025 11:52 PM, LOCATION [facility] INDICATION: I63.9: Ischemic stroke (HCC) G93.40: Acute encephalopathy ADDITIONAL CLINICAL INFORMATION: Ordering Provider Reason For Exam: cva Technologist Note: Additional: TECHNIQUE: CT of the head was performed without contrast according to standard protocol. COMPARISON: CT head 04/30/2025 FINDINGS: No acute intracranial hemorrhage or intra- or extra-axial fluid collections are identified. There is mild cerebral volume loss with associated ex vacuo ventricular dilatation. The basal cisterns are patent. No mass effect or midline shift is seen. Chronic infarct in the right ELECTRIC RANGE SERVICER territory. Additional encephalomalacia in the left shin radiata appears new since 04/30/2025. The roy-white matter differentiation otherwise appears normal. Periventricular white matter hypoattenuation is a nonspecific finding that may be indicative of chronic small vessel ischemic disease. There is atherosclerotic calcification of the carotid siphons. The visualized portions of the orbits, paranasal sinuses, and mastoids appear normal. No acute calvarial fracture is identified. Impression : 1.No CT evidence of acute hemorrhage, herniation, or large territorial infarct. 2.Please note CT is insensitive to small infarcts particularly in the posterior fossa, if there is continued clinical concern MRI can be obtained. 3.Encephalomalacia in the left shin radiata is new new since 04/30/2025. 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 > Dictated by Alberto David MD, (cardiac cath lab radiology technologist). > Dictated by Alberto David MD 09/19/2025 11:56 PM > Dictated by Special Education Tutor I, Tra Russell MD have personally reviewed and interpreted this examination/study. > Interpreting Provider: Tra Russell MD on 09/20/2025 12:[address] HEAD WO CONTRAST 09/17 FINDINGS: Periventricular and subcortical white matter hypodensities are seen, which likely represent sequelae of chronic microvascular change. Chronic infarct/encephalomalacia in the right parietal lobe. Chronic infarct/encephalomalacia in the left frontal lobe. No acute intracranial hemorrhage or CT evidence of acute-subacute, large territory infarct. There is no evidence of hydrocephalus, extraaxial fluid collection, mass effect or midline shift. There is no acute displaced calvarial fracture. Right maxillary sinus mucosal thickening, otherwise visualized paranasal sinuses and mastoid air cells are clear. MRI Angio, Brain/Neck 09/19/2025 IMPRESSION: 1. 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 The superior aspect of the left intracranial vertebral artery also appears occluded. 2. Nonvisualization of an anterior left MCA M2 branch as well as attenuated appearance of the remaining left MCA vasculature beyond the M1-M2 bifurcation. 3. Given impression 1 and 2 above, interventional neurology consultation is recommended. 4. Moderate focal stenosis of the right intracranial vertebral artery. 5. No high-grade stenosis or proximal vessel occlusion in the neck. MRI Brain MRI Brain Wo Contrast 09/18/2025 Narrative [facility] [address], [place] [address] Examination: MRI BRAIN WO CON, 09/18/2025 7:41 AM. Technique: Multiplanar multisequence magnetic resonance images of the brain were obtained without intravenous contrast. Clinical history: AMS, hx CVA Comparison: CT head 09/17/2025 Findings: There is focal ovoid restricted diffusion within the subcortical white matter of the left frontal lobe that may be represent an acute infarct. Suggestion of some cortical sparing which is somewhat atypical, therefore recommend MRI brain exam with contrast follow-up in 4-6 weeks unless symptoms warrant sooner characterization. Curvilinear susceptibility along the cortical margin of the right parietal convexity as evidence for cortical laminar necrosis. Scattered subcortical and periventricular white matter T2 FLAIR hyperintensities that are nonspecific but most commonly seen in setting of chronic small vessel ischemic change. Sellar, callosal, pineal, and craniovertebral junction regions appear within normal limits. There is no extra-axial collection. Basal cisterns appear normal. The proximal intracranial arterial flow voids have a normal appearance. Orbital contents appear normal. Paranasal sinuses are well aerated. Trace left mastoid air cell fluid. The right mastoid air cells are well aerated. Impression IMPRESSION: 1. Focal ovoid restricted diffusion within the subcortical white matter of the left frontal lobe that may represent an acute infarct. Suggestion of some cortical sparing which is somewhat atypical, therefore recommend MRI brain exam with contrast follow-up in 4-6 weeks unless symptoms warrant sooner characterization. 2. Mild chronic small vessel ischemic change. 3. 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 Ordered By: DALJIT VELAZCO Interpreted By: Jarod Vega MD, 09/18/2025 9:02 AM Findings delivered to Dr. Esquivel via [employer] secure messaging at the time of dictation. Cerebral Angiogram DATE/TIME OF EXAM: 09/20/2025 10:00 AM Procedure: Diagnostic Catheter Cerebral Angiogram Findings: - Left Vertebral artery It reveals a distal V2 - V3 segments with normal course and caliber. The V4 segment has a proximal segment with normal course and caliber, but there is visualization of alternating areas of severe stenosis in distal segment of V4 segment. The left vertebral artery ends in PICA which also has alternating areas of moderate stenosis in its proximal segments, the distal segments have a normal course and caliber. - Left Internal Carotid Artery It reveals a normal course and caliber of the intracranial segments. There is visualization of a prominent caliber posterior communicating artery suggestive of a ELECTRIC RANGE SERVICER variant. The middle cerebral artery has a diffuse decrease caliber of its horizontal segment causing moderate stenosis, the superior and inferior division have some there is visualization of alternating areas of moderate and severe stenosis following a beading pattern. The anterior cerebral artery has a diffuse decrease caliber of its A1 segment causing moderate stenosis. Cortical branches of the A2 segments such as frontopolar, pericallosal, callosomarginal have alternating areas of moderate and severe stenosis following a beading pattern. The venous phase shows a normal drainage. - Left External Carotid Artery, cerebral angiogram. It reveals a normal course and caliber of the distal branches of middle meningeal artery, occipital and superficial temporal artery. - Right Internal Carotid Artery. It reveals a normal course and caliber of the intracranial segments. There is visualization of a prominent caliber posterior communicating artery suggestive of a ELECTRIC RANGE SERVICER variant. The middle cerebral artery has a normal course and caliber, the rest of the segments have alternating areas of moderate stenosis following a beading pattern. The anterior cerebral artery has a normal course and caliber of its A1 segment, the rest of its segments have alternating areas of moderate and severe stenosis following a beading pattern. The venous phase shows a normal drainage. - Right External Carotid Artery. It reveals a normal course and caliber of the distal branches of middle meningeal artery, occipital and superficial temporal artery. -Right Vertebral artery. It reveals a V4 segment with a distal moderate stenosis. There is not further visualization of the vertebrobasilar junction or basilar artery due due to contrast washout however we cant rule out severe stenosis or occlusion as a selective angiogram of the right vertebra; artery was ot performed. Impression: - Multiple alternating areas of moderate to severe stenosis affecting anterior and posterior circulation following a beading pattern. This could represent severe intracranial atherosclerosis or QUALITY MANAGEMENT NURSE vasculitis, recommend clinical correlation. Cardiac: TTE/RADHA LVEF < 30%: []Yes [x]No (Value:60-65%) Akinesia or Hypokinesia: []Yes [x]No Patent Foramen [place]: []Yes [x]No Comments: ECHO RADHA COMPLETE 05/10/2025 Narrative Summary * Left ventricular systolic function is normal with an estimated ejection fraction of 60-65% by visual estimate. * Intact interatrial septum visualized by 2D and color Doppler imaging. * Agitated saline contrast study at rest and with Valsalva is negative for a shunt. * The left atrial appendage is normal in shape with normal velocity, and there is no thrombus. Patient Info Name: Gena Pierre Age: 64 years : 1960 Gender: Female Ht: 66 in Wt: 200 lb BSA: 2.09 m2 HR: 112 bpm BP: 136 / 79 mmHg Heart Rhythm: Tachycardia Exam Date: 05/10/2025 9:20 AM Patient Status: I/P Study Site: [facility] Primary Location: [facility] EStudy Info Technical Quality: Adequate Exam Type: ECHO RADHA COMPLETE Indications R55 - Syncope with abnormal neurologic examination R29.90 - Syncope with abnormal neurologic examination Contrast/Agitated Saline Contrast / Saline: Agitated Saline Amount: 10.00 ml Reaction to Contrast: no * A transesophageal echocardiogram is performed. Staff Referring Physician: Chintan Caro Ordering Provider: Chintan Caro Attending Physician: Chintan Caro Fellow: Mary Graham Mammography Tech: Rachel Jordan Performing Physician: Maryann Roa MD Mammography Tech: Mary Graham Complications * There were no complications prior to, during or in recovery from the transesophageal echocardiogram. Medications * The posterior pharynx was sprayed with Cetacaine spray and the patient was administered viscous Xylocaine 2% by mouth. * The patient was premedicated with 3.00 mg intravenous Versed. * The patient was premedicated with 75.00 mcg intravenous Fentanyl. Procedure Details The patient arrived in a fasting state after obtaining informed consent. The transesophageal probe was passed without difficulty into the posterior pharynx, mid-esophagus, distal esophagus, and gastric fundus. Imaging was performed at multiple levels. The patient tolerated the procedure well and there were no complications. The patient was transferred out of the examination area in satisfactory condition. Left Ventricle The left ventricle is normal in size. Left ventricular systolic function is normal with an estimated ejection fraction of 60-65% by visual estimate. Right Ventricle Right ventricular chamber dimension is normal in size. Right ventricular systolic function is normal. Ventricular Septum Intact interventricular septum visualized by 2D and color Doppler and agitated saline imaging. Left Atrium The left atrium is normal in size. There is no thrombus visualized in the left atrium. Right Atrium The right atrium is normal in size. An infusion catheter is seen in the right atrium. Atrial Septum Intact interatrial septum visualized by 2D and color Doppler imaging. Agitated saline contrast study at rest and with Valsalva is negative for a shunt. Atrial Appendage The left atrial appendage is normal in shape with normal velocity, and there is no thrombus. Aortic Valve The aortic valve is trileaflet. There is no aortic valve regurgitation. There is no aortic valve stenosis. Mitral Valve Mitral valve is structurally and functionally normal to two-dimensional, color flow Doppler and Doppler interrogation. There is mild mitral valve regurgitation. Tricuspid Valve The tricuspid valve is structurally and functionally normal by two-dimensional, color flow Doppler and Doppler interrogation. There is no tricuspid valve regurgitation. Pulmonary Veins Pulmonary veins are normal by two-dimensional and color flow imaging. Doppler velocity profiles are normal indicating no obstruction of flow, normal left-sided filling pressures. Aorta Minimal plaque in the ascending aorta, aortic arch and descending aorta. Report Signatures Finalized by Maryann Roa MD on 05/10/2025 05:18 PM Reviewed by Fellow Mary Graham on 05/10/2025 04:43 PM Lumbar Puncture Latest Reference Range & Units 05/07/25 12:06 Tube Number TUBE 4 Color CSF COLORLESS Appearance CSF CLEAR Nucleated Cells CSF <=5 x10E6/L 4 RBC CSF 0 - 5 x10E6/L 614 (H) Xanthochromia CSF ABSENT ABSENT Glucose,CSF-STAT 40 - 70 mg/dL 43 Albumin CSF 8.4 - 34.2 mg/dL 14.2 Tlghj-[id number]-Bcqhkwft CSF 0.0 - 5.4 mg/dL 2.4 Beta-Globulin CSF 0.0 - 8.1 mg/dL 3.1 Gamma Globulin CSF 0.0 - 5.4 mg/dL 2.1 Alpha-1 Globulin CSF 0.0 - 3.1 mg/dL 1.3 Angiotensin-Converting Enzyme CSF 0.0 - 2.5 U/L 0.6 IgA CSF 0.0 - 0.7 mg/dL 0.2 Prealbumin CSF 0.0 - 3.1 mg/dL 1.1 Cryptococcus Antigen CSF Negative Negative Protein CSF 15.0 - 45.0 mg/dL 15 - 45 mg/dL 24.2 35 (H): Data is abnormally high Rheumatology Labs Latest Reference Range & Units 05/01/25 00:32 05/07/25 12:06 LEX IgG None Detected None Detected Myelin Basic Protein 0.00 - 5.50 ng/mL 55.00 (H) ANCA Pattern None Detected None Detected ANCA Titer <1:20 <1:20 Myeloperoxidase Antibody 0 - 19 AU/mL 0 Rheumatoid Factor Screen Negative Negative Rheumatoid Factor <30 IU/mL <15 Serine Proteinase 3 IgG 0 - 19 AU/mL 0 (H): Data is abnormally high 09/21-CRP slightly elevated at 0.8 EKG (has Loop Recorder) Date: N/A Sinusal: []Yes [x]No Atrial Fibrillation: []Yes [x]No Telemetry Atrial Fibrillation: []Yes [x]No Labs: Lipid Profile Home Statin use: [x]Yes []No Recent Labs Component Name 09/20/25 0412 CHOL 232* HDL 65 LDLCALC 148* TRIG 95 Endocrinology: T2DM previously diagnosed? [x]Yes []No Wireless Glucose WB/POC (mg/dL) Date/Time Value 09/24/2025 04:04 PM 132 (H) 09/24/2025 12:16 PM 218 (H) 09/24/2025 09:28 AM 116 (H) 09/23/2025 08:29 PM 107 (H) Recent Labs Component Name 09/20/25 0412 04/29/25 0115 HGBA1C 5.0 4.5 Cardiac Enzymes Recent Labs Component Name 09/20/25 0542 09/20/25 0412 TROPIHS 13 13 Recent Labs Component Name 09/20/25 0542 09/20/25 0412 TROPIHS 13 13 Troponin Curve: []Yes [x]No Assessment Gena Pierre is a 65 year old female presenting for confusion, expressive aphasia, chronic left sided weakness from prior stroke in 2024. She has severe intracranial atherosclerosis. She is on DAPT. ESRD on dialysis. CT head without contrast did not show any intracranial bleed. EEG has been normal at OSH. MRI shows a small focus of left frontal lobe subcortical infarct. Echo done in April had shown normal EF, without any evidence of PFO, or left atrial thrombus. Loop recorder in place. MRA showing patchy multifocal stenosis -possibly secondary to atherosclerosis versus vasculitis versus vasospasm. DSA showing alternating areas of severe stenosis in anterior and posterior circulation following a beading pattern-which could be due to vasculitis versus multifocal or atherosclerosis. Discussedwith rheumatology today, given patient's extensive prior workup including prior LP-and comorbid medical conditions including diabetes, hypertension and end-stage renal disease-multifocal atherosclerosis is far more likely than vasculitis, and thus repeat LP is not needed to rule out QUALITY MANAGEMENT NURSE vasculitis. Stroke Type: Ischemic Stroke Mechanism: ICAD Plan Plan: Further workup : Stroke workup complete. Needs plan to remove restraints for 24 hours and to protect her HD catheterso that patient does not pull it and SNF transfer. [facility] today Secondary stroke prevention: Aspirin 81mg Start Brilinta 90 mg Hyperlipidemia: Atorvastatin 80 mg (increased from home 40 mg) (LDL = 148) SBP goal (short term): < 220 To be achieved with: Labetalol 10 mg IV PRN (HR>70), Hydralazine 10 mg IV PRN (HR<70) SBP goal (alf): <120 +/- 10 To be achieved with: Home Coreg 25 mg DVT PPX: Heparin Recovery Plan: Swallow Evaluation/Diet: DIET CARDIAC DIETARY NUTRITION SUPPLEMENTS PT/OT evaluation:PT Discharge Recommendations Recommended Transportation Method: Stretcher/Ambulance PT Discharge Recommendations: Patient would benefit from multidisciplinary therapy Placement: Pending discharge to SNF-family declining returning back to previous patient's previous senior living facility as a did not think it was a good fit for patient, and are hoping to find a new facility -pending social work assistance Checklist: Code Code Status: NO CPR(DNR) NO INTUBATION Access Hemodialysis catheter Bowel Regimen Miralax PRN, Sennakot daily Specialities involved Stroke, Nephrology, Rheumatology Patient/Family updated Cousin and POA updated by phone Additional Hospital Problems: History of ischemic right MCA stroke Present on Admission: Yes Ischemic stroke (HCC) Present on Admission: Yes Primary hypertension Present on Admission: Yes -see above ESRD (end stage renal disease) (HCC) Present on Admission: Yes Secondary hyperparathyroidism (HCC) Present on Admission: Yes ESRD on HD - hemodialysis catheter placement confirmed with CXR 09/20 - dialysis schedule MWF - last dialysis 09/21 Hyperparathyroidism - Vitamin D low (19.9) -DC'd vitamin D supplementation per nephrology due to hypercalcemia, nephrology recommending SestaMIBI scan -Started on send Salit 60 mg daily -Recommending ENT consult for possible 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 Type 2 diabetes mellitus with unspecified complications (HCC) Present on Admission: Yes On SSI Hx of major depression Present on Admission: Yes -Continue home venlafaxine Patient seen and discussed with Attending Physician, Dr. Jayashree Salcedo MD Neurology Resident 09/24/2025 Cosigned by Columba Blanc MD at 09/25/2025 7:19 PM ANIMAL HUMANE AGENT SUPERVISOR AL HUMANE AGENT SUPERVISOR AL HUMANE AGENT SUPERVISOR * Belle White MD - 09/24/2025 4:52 PM CST Patient seen and examined at bedside. Has aphasia present on admission. Tolerating diet,VSS, discussed with nursing, no active issues. Labs changed to PM. AL HUMANE AGENT SUPERVISOR * Zakia Perez, GERALDO/LD - 09/24/2025 10:38 AM CST BRIEF SYNOPSIS: Nutrition Risk Identified and evaluation in progress Nutrition Plan: Current diet order: Cardiac Standard -- will modify to 1:1 assist and non-select meals in setting of AMS +Nepro (425 kcals, 19 g protein, 38 g carbohydrate) once/daily -- appropriate for lactose-intolerance Recommendation to Physician: + Monitor renal lytes (potassium and phosphorus) due to hx of ESRD -- if elevated above normal limits, consider nutrient restricts per specific abnormality CLINICAL NUTRITION ASSESSMENT: Pt scheduled for reassessment. Disoriented x 4 per recent forest products gatherer. Not appropriate for in depth interview. PO intake appears poor since diet advancement; observing 1-2 meals consumed per dayin past 72 hrs. Pt needs updated scaled weight. No recent GI issues noted per charting -- last BM ye sterday. Labs: abnormal Phos levels on 09/20. Recommend rechecking serum phosphorus in setting of ESRD. Nephrology following for inpatient iHD. Will modify diet order to above and send oral nutrition supplement to aid with optimal PO intake during admit. Med/Surg History and Clinical Diagnoses: Gena Pierre is a 65-year-old female with past medical history of CVA, DM2, ESRD on HD, hyperparathyroidism who presents to the ED for the above. Patient unable to provide any history. When asked her name probably later. RN reports patient has been waxing and waning in her ability to communicate, she was able to state her name and when she does dialysis. Height: 165.1 cm (5' 5) BMI: Body mass index is 28.62 kg/m??. BMI Range: Overweight IBW/lb (Calculated) Female: 125 Recent Weights/Methods 04/28/2025 2018 04/29/2025 0250 05/06/2025 0924 06/20/2025 1016 08/07/2025 1046 09/20/2025 0800 Weight: -- 90.7 kg (200 lb) -- 73.5 kg (162 lb) 78 kg (172 lb) 78 kg (172 lb) Weight Method : Bed scale Bed scale Other (Comment) -- -- -- Weight comments: reviewed -- noted 14% weight loss in 5 months, which could be considered significant. However, weight changes cannot be validated due to hx of ESRD on HD. PO INTAKE Current diet order: Cardiac Standard Nutrition recommendation: alter/change nutrition order Food Allergies: Other (Comments) (lactose) Last Percent Meal Eaten (%): 50 % (09/24/25 0800) 48 hr PO INTAKE Percent Meal Eaten (%) Av.5 % Min: 0 % Max: 100 % None Pain affecting intake: No Chewing/Swallowing: None GI Concerns: None Stools: Unmeasured Stool Occurrence: 1 (09/23/25 0000) Skin/Wound: radial puncture site Estimated Needs: KCAL: 5422-3510 (30-35 kcal/kg ABW) Protein (g): 94g (1.2 g/kg ABW) Fluid (ml): (urine output + 500-1000 ml/day) Needs based on: Kcal/kg- (Comment) (ABW of 78kg ESRD on HD) Recommended Access Route: PO Labs: Recent Labs Component Name 09/24/25 0358 09/22/25 2339 09/22/25 0437 09/21/25 0436 09/20/25 0412 NA 137 136 136 - 140 140 POTASSIUM 4.0 3.9 4.4 - 3.7 3.7 CO2 24 24 28 - 29 29 BUN 20 37* 24 - 43* 43* CREATININE 6.62* 8.90* 6.87* - 9.14* 9.14* GLUCOSE 96 139* 113* - 69* 69* CALCIUM 10.5* 10.1 11.7* - 10.7* 10.7* ALT - - - - 13 ALKPHOS - - - - 114 AST - - - - 14 EGFR 6* 5* 6* - 4* 4* - = values in this interval not displayed. Recent Labs Component Name 09/20/25 0412 05/13/25 0720 05/12/25 0623 PHOS 6.6* 3.2 3.3 Recent Labs Component Name 09/20/25 0412 05/13/25 0720 05/12/25 0623 MAGNESIUM 2.2 1.9 1.8 Recent Labs Component Name 09/24/25 0358 09/22/25 2339 09/22/25 0437 HGB 12.1 10.2* 11.5* HCT 37.7 32.0* 36.1 Recent Labs Component Name 09/20/2541104/29/25 0115 HGBA1C 5.0 4.5 Patient Vitals for the past 30 hrs: Glucose Bedside (mg/dL) 09/23/25 1700 113 mg/dL 09/23/25 1100 89 mg/dL MEDICATIONS FOR CURRENT ENCOUNTER: SCHEDULED MEDICATIONS: Or 0.9% NaCl injection 3 mL, Intracatheter, q8h aspirin chew tablet 81 mg, Oral, QDAY aspirin suppository 300 mg, Rectal, QDAY atorvastatin (Lipitor) tablet 80 mg, Oral, AT BEDTIME carvedilol (Coreg) tablet 25 mg, Oral, BID WC heparin injection 1,000 Units, Intracatheter, post-Dialysis once heparin injection 5,000 Units, Subcutaneous, q8h insulin aspart (NovoLOG) pen 0-12 Units, Subcutaneous, TID WC senna-docusate (Senokot-S) tablet 1 tablet, Oral, QDAY ticagrelor (Brilinta) tablet 90 mg, Oral, BID venlafaxine XR 24hr (Effexor XR) capsule 150 mg, Oral, QDAY WITH DINNER [START ON 09/25/2025] cinacalcet (Sensipar) tablet 60 mg, Oral, QDAY CONTINUOUS MEDICATIONS: PRN MEDICATIONS: Or Or Or 0.9% NaCl injection 1-10 mL, Intracatheter, PRN acetaminophen (Tylenol) tablet 650 mg, Oral, q6h PRN dextrose IV 12.5 g, Intravenous, PRN dextrose IV 25 g, Intravenous, PRN glucose (Diabetic Use) oral gel, Oral, PRN hydrALAZINE (Apresoline) injection 10 mg, Intravenous, q20 min PRN labetalol (Normodyne; Trandate) injection 10 mg, Intravenous, q15 min PRN ondansetron (disintegrating) (Zofran ODT) tablet 4 mg, Oral, q6h PRN ondansetron (Zofran) injection 4 mg, Intravenous, q6h PRN polyethylene glycol 3350 (Miralax) packet 17 g, Oral, QDAY PRN Nutrition Diagnostic Statement: Inadequate protein-energy intake related to:: decreased ability to consume or tolerate adequate food and/or fluids due to illness as evidenced by:: estimated intake insufficient to meet requirements Nutrition Diagnostic Statement Progress: Nutrition problem continues Nutrition Intervention: Medical Food Supplements: Education needed: Cardiac Diet Education Provided: Not appropriate (09/24/25 1000) Monitoring: Diet advancement--PO intake I/Os BMs and GI symptoms Weight Labs Medications Evaluation: Nutrition Goal: Total intake will meet estimated nutrient needs Nutrition Goal Timeframe: Throughout stay Nutrition Goal Progress: Progressing toward goal Cassie Boo MS, RD/RDN, LD Ascom [id number] AL HUMANE AGENT SUPERVISOR * Kathy Sebastian MD - 09/24/2025 10:17 AM CST [facility] Nephrology Progress Note Brief Hospital Course: Gena Pierre is a 65 year old female w/ PMH significant for ESKD on HD MWF via R-IJ Permcath, hypertension, type 2 diabetes mellitus, right-sided breast cancer, compression fraction of T9 vertebra, thyroid nodule, syncope, uterine mass, 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 The patient presented with confusion, expressive aphasia and chronic left-sided weakness from prior stroke in 2024. In ED, blood pressure was 122/69 mmHg, labs were significant for serum sodium 140 mmol/L, potassium-3.7 mmol/L, CO2-29 mmol/L, BUN-43 mg/dL and creatinine- 9.40 mg/dL. CT head was negative for any evidence of acute hemorrhage, herniation or large territorial infarct. 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 INTERVAL HISTORY: - Patient seen in room while on bed without any oxygen and while on restrains. - Got HD session yesterday with UF of 1L without any hypotension. - No acute event over last 24 hours. ASSESSMENT # ESRD on maintenance hemodialysis [facility] -Access: R-IJ Permcath -Last HD on 09/23 -[id number] mmol/L -Electrolytes: Na-137 mmol/L, K-4.0 mmol/L -Volume Status: Euvolemic # Chronic kidney disease-mineral and bone disorder (CKD-MBD) -Ca-11.7 mg/dl, P-6.6 mg/dl -Alb-3.5 g/dl -PTH-1836.5 pg/ml -Vitamin D-17.8 ng/ml -On Sensipar 30 mg daily as outpatient # Anemia of chronic kidney disease -Hb-11.4 g/dl-at goal -Ferritin-1497 ng/ml, TSAT-84% -Transfuse if Hb < 7 g/dl -No need for MARCO or iron for now # Hypertension -BP-124/64 mmHg -Home medications: Carvedilol 12.5 mg twice daily -Monitor blood pressure, resume home antihypertensives and advance doses as necessary RECOMMENDATIONS - Nephrology following patient HD requirements. - Resume back on Cinacalcit 60 mg once day - Next HD on 09/25 according to [facility] schedule. Please refer to the initial nephrology consult note for additional information. Hospital Medications: Medications[1] Medications[2] Physical Exam: Vitals: 09/23/25 2031 09/24/25 0110 09/24/25 0440 09/24/25 0930 BP: 120/67 134/75 122/72 116/74 Pulse: 91 77 89 102 Resp: 18 18 18 16 Temp: 98.9 ??F (37.2 ??C) 98.4 ??F (36.9 ??C) 98.3 ??F (36.8 ??C) 98.2 ??F (36.8 ??C) SpO2: 100% 100% 100% 100% Weight: Height: Intake/Output Summary (Last 24 hours) at 09/24/2025 1018 Last data filed at 09/24/2025 0542 Gross per 24 hour Intake 480 ml Output 1000 ml Net -520 ml Constitutional: Appearance: Normal appearance. Comments: awake Rate and Rhythm: Normal rate. Heart sounds: Normal heart sounds. Pulmonary: Effort: Pulmonary effort is normal. Breath sounds: Normal breath sounds. Abdominal: Palpations: Abdomen is soft. Musculoskeletal: Right lower leg: No edema. Left lower leg: No edema. Neurological: Mental Status: She is disoriented. Dialysis access: R-IJ Permcath LABS: Recent Labs Component Name 09/24/2535709/22/25233809/22/25436 NA 137 136 136 POTASSIUM 4.0 3.9 4.4 CL 99 97* 97* CO2 24 24 28 BUN 20 37* 24 CREATININE 6.62* 8.90* 6.87* Recent Labs Component Name 09/24/2535709/22/25233809/22/257 09/21/25 0436 09/20/252 05/13/25 0720 05/12/25 0623 CALCIUM 10.5* 10.1 11.7* - 10.7* 10.7* 7.7* 7.8* PHOS - - - - 6.6* 3.2 3.3 - = values in this interval not displayed. Recent Labs Component Name 09/20/2541104/29/25 0115 PTHINTACT 1,836.5* 1,633.6* Recent Labs Component Name 09/24/2535709/22/25233809/22/25436 WBC 9.7 14.1* 12.2* HGB 12.1 10.2* 11.5* Recent Labs Component Name 04/28/25 0940 IRON 99 TIBC 118* FERRITIN 1,497* Kathy Alvarez MD Nephrology Fellow [1] 0.9% NaCl 3 mL Intracatheter q8h aspirin 81 mg Oral QDAY Or aspirin 300 mg Rectal QDAY atorvastatin 80 mg Oral AT BEDTIME carvedilol 25 mg Oral BID [START ON 09/25/2025] cinacalcet 60 mg Oral QDAY heparin 1,000 Units Intracatheter post-Dialysis once heparin 5,000 Units Subcutaneous q8h insulin aspart 0-12 Units Subcutaneous TID senna-docusate 1 tablet Oral QDAY ticagrelor 90 mg Oral BID venlafaxine XR 24hr 150 mg Oral QDAY WITH DINNER [2] Cosigned by Mike Rock MD at 09/24/2025 7:35 PM ANIMAL HUMANE AGENT SUPERVISOR AL HUMANE AGENT SUPERVISOR AL HUMANE AGENT SUPERVISOR Associated attestation - Mike Rock MD - 09/24/2025 7:35 PM ANIMAL HUMANE AGENT SUPERVISOR Nephrology Attending Physician I have seen and examined the patient with house-staff on round. I agree with the house-staff note. ESRD on HD s/p HD yesterday w 1L. Today pt says she is OK, was not eating lunch though the tray wasin front of her. R IJ TDC, no edema. Increase Cinacalcet back to 60mg. 09/24/25 Mike Rock MD Division of Nephrology * Columba Blanc MD - 09/24/2025 8:31 AM CST Images from the original note were not included. I have seen and examined the patient with the Resident and I agree with the findings and plan of care as documented by the Resident. Please refer to the Resident's note for plans of active problems not discussed in this note. Date of Service: 09/24/2025 Columba Blanc MD, PhD Multidisciplinary rounds were held at 9am and the patient's care and recovery plan were reviewed and developed with the assembled team. 65F with a hx of ICAD and hx of prior stroke. She has been on ASA and Plavix. Now with new aphasia and infarction on CT and evidence of medium and small vessel beading. Vasculitis workup in 04/2025 was negative. Rheum re-consulted and low concern for vasculitis. She has mixed aphasia with mild preservation in comprehension and she is able to follow one-step commands. Stroke mechanism: ICAD - continue ASA + Brillinta - high intensity statin - PT/OT/AUTOMOTIVE BRAKE SPECIALIST eval - Dispo pending Problem List History of ischemic right MCA stroke (POA: Yes) ESRD (end stage renal disease) (HCC) (POA: Yes) Primary hypertension (POA: Yes) Type 2 diabetes mellitus with unspecified complications (HCC) (POA: Yes) Secondary hyperparathyroidism (HCC) (POA: Yes) Ischemic stroke (HCC) (POA: Yes) Hx of major depression (POA: Yes) See Resident note for the remaining problem specific plan. 5 MEDICATIONS FOR CURRENT ENCOUNTER: SCHEDULED MEDICATIONS: Or 0.9% NaCl injection 3 mL, Intracatheter, q8h aspirin chew tablet 81 mg, Oral, QDAY aspirin suppository 300 mg, Rectal, QDAY atorvastatin (Lipitor) tablet 80 mg, Oral, AT BEDTIME carvedilol (Coreg) tablet 25 mg, Oral, BID WC cinacalcet (Sensipar) tablet 30 mg, Oral, QDAY heparin injection 1,000 Units, Intracatheter, post-Dialysis once heparin injection 5,000 Units, Subcutaneous, q8h insulin aspart (NovoLOG) pen 0-12 Units, Subcutaneous, TID senna-docusate (Senokot-S) tablet 1 tablet, Oral, QDAY ticagrelor (Brilinta) tablet 90 mg, Oral, BID venlafaxine XR 24hr (Effexor XR) capsule 150 mg, Oral, QDAY WITH DINNER CONTINUOUS MEDICATIONS: PRN MEDICATIONS: Or Or Or 0.9% NaCl injection 1-10 mL, Intracatheter, PRN acetaminophen (Tylenol) tablet 650 mg, Oral, q6h PRN dextrose IV 12.5 g, Intravenous, PRN dextrose IV 25 g, Intravenous, PRN glucose (Diabetic Use) oral gel, Oral, PRN hydrALAZINE (Apresoline) injection 10 mg, Intravenous, q20 min PRN labetalol (Normodyne; Trandate) injection 10 mg, Intravenous, q15 min PRN ondansetron (disintegrating) (Zofran ODT) tablet 4 mg, Oral, q6h PRN ondansetron (Zofran) injection 4 mg, Intravenous, q6h PRN polyethylene glycol 3350 (Miralax) packet 17 g, Oral, QDAY PRN Patient Vitals for the past 24 hrs: Temp Pulse Resp BP 09/24/25 0440 98.3 ??F (36.8 ??C) 89 18 122/72 09/24/25 0110 98.4 ??F (36.9 ??C) 77 18 134/75 09/23/25 2031 98.9 ??F (37.2 ??C) 91 18 120/67 09/23/25 1621 98.2 ??F (36.8 ??C) 82 -- 130/69 09/23/25 1135 98.1 ??F (36.7 ??C) 82 18 109/65 09/23/25 1115 -- 86 18 98/72 09/23/25 1100 -- 89 18 99/66 09/23/25 1045 -- 91 18 89/64 09/23/25 1030 -- 98 18 85/64 09/23/25 1015 -- 98 18 97/65 09/23/25 1000 -- 94 18 95/63 09/23/25 0945 -- 96 18 103/67 09/23/25 0930 -- 101 18 102/68 09/23/25 0915 -- 92 18 99/67 09/23/25 0900 -- 89 18 101/70 09/23/25 0845 -- 93 18 119/60 Recent Labs Component Name 09/24/25 0358 09/22/25 2339 09/22/25 0437 09/21/25 0436 09/20/25 0412 05/13/25 0720 05/12/25 0623 NA 137 136 136 - 140 140 131* 128* CL 99 97* 97* - 95* 95* 98 94* CO2 24 24 28 - 29 29 24 29 BUN 20 37* 24 - 43* 43* 26 16 CREATININE 6.62* 8.90* 6.87* - 9.14* 9.14* 7.05* 5.41* CALCIUM 10.5* 10.1 11.7* - 10.7* 10.7* 7.7* 7.8* PHOS - - - - 6.6* 3.2 3.3 - = values in this interval not displayed. Recent Labs Component Name 09/24/25 0358 09/22/25 2339 09/22/25 0437 WBC 9.7 14.1* 12.2* RBC 4.18 3.52* 4.05 HGB 12.1 10.2* 11.5* HCT 37.7 32.0* 36.1 Recent Labs Component Name 09/20/25 0412 CHOL 232* TRIG 95 HDL 65 LDLCALC 148* Recent Labs Component Name 09/20/25 0412 04/29/25 0115 HGBA1C 5.0 4.5 EAG 97 82 Recent Labs Component Name 09/24/258 09/22/25233809/22/25 0437 PLTCOUNT [phone] AL HUMANE AGENT SUPERVISOR * Velma Salcedo MD - 09/23/2025 5:03 PM CST Images from the original note were not included. [facility] Stroke Progress Note Gena Pierre Age: [age] year old Date of : 1960 Date of Admission: 09/19/2025 Hospital Day: 4 Admission history and Hospital course: Gena Pierre is a 65 year old female with past medical history of CVA, DM2, ESRD on HD, hyperparathyroidism who presents to the ED for the above. Patient unable to provide any history. When asked hername probably later. RN reports patient has been waxing and waning in her ability to communicate,she was able to state her name and when she does dialysis. This has been goingon since 08/31 when she had a UTI. RN is questioning whether patient is altered vs uncooperative. Family at bedside earlier reportedly state patient A&O x 4 a week ago. Family and patient reporting in ED dislike toward current rehab facility and do not want to go back there. head without contrast did not show any intracranial bleed. EEG has been normal at OSH. MRI shows a small focus of left frontal lobe subcortical infarct. Echo done in April had shown normal EF, without any evidence of PFO, or left atrial thrombus. Loop recorder in place. MRA showing patchy multifocal stenosis -possibly secondary to atherosclerosis versus vasculitis versus vasospasm. DSA was performed and was concerning for possible QUALITY MANAGEMENT NURSE vasculitis- versus multifocal atherosclerosis. Discussed with rheumatology given extensive prior workup for vasculitis which was all negative, determining that patient's presentation is more likely business development representative of multifocal atherosclerosis. Patient stable to discharge back to SNF today however patient has restraints and needs to be off restraints for 24 hours for SNF and needs a plan to protect his HD cathetar. Subjective (today) Overnight: NGT placement, pulled out and replaced, now in soft restraints and mittens. Patient remained afebrile (Tm Temp (24hrs), Av.3 ??F (36.8 ??C), Min:98.1 ??F (36.7 ??C), Max:99.1 ??F (37.3??C) ) with blood pressures ranging from Systolic (24hrs), Av , Min:85 , Max:130 Nurse concern: None Objective Intake & Output Intake/Output Summary (Last 24 hours) at 09/23/2025 1711 Last data filed at 09/23/2025 1237 Gross per 24 hour Intake 480 ml Output 1000 ml Net -520 ml last BM: Unmeasured Stool Occurrence: 1 Exam: General Appearance: Laying in bed, in not acute distress. Mental status: Awake, A&Ox0 Language: Severe aphasia, not responding to questions, intermittently responds to commands such as wiggling her toes or squeezing her fingers Speech: Unable to assess Visual rodriguez: CN II: visual rodriguez grossly intact Neglect: No visual or tactile neglect noted CN 3 - 12:CN III, IV, : PERRLA, EOMI CN V: Responds to touch of V1-3,CN VII: Facial movements symmetric and Notable for left UMN Weakness,Hearing grossly intact to voice, CN IX, X: Pallet elevates symmetrically, CN XI: head turn and shoulder shrug intact based on observation,CN XII: Tongue midline without fasciculations or atrophy and Unable to examine Motor: No tone or movement abnormalities noted Objective strength: Unable to follow commands, moving all extremities to gravity without issue. Muscle Stretch Reflexes BI TRI BR PAT ACH TOES Right 2+ 2+ 2+ 2+ 2+ Down Left 2+ 2+ 2+ 2+ 2+ Down Sensory Responds to light touch in all extremities. Cerebellar Unable to Assess Gait Deferred Investigations Objective Last NIH NIH Total: 12 (09/23/2025 7:07 AM) Assessment Interval: Shift (09/23/2025 7:07 AM) Level of Consciousness: 0 (09/23/2025 7:07 AM) LOC: Questions (Month and Age): 2 (09/23/2025 7:07 AM) LOC: Commands (opens/closes, eyes/fists): 1 (09/23/2025 7:07 AM) Best Gaze: 0 (09/23/2025 7:07 AM) Visual: 0 (09/23/2025 7:07 AM) Facial Palsy: 0 (09/23/2025 7:07 AM) Motor Arm Function - Right: 0 (09/23/2025 7:07 AM) Motor Arm Function - Left: 0 (09/23/2025 7:07 AM) Motor Leg - Right: 1 (09/23/2025 7:07 AM) Motor Leg - Left: 1 (09/23/2025 7:07 AM) Limb Ataxia: 2 (09/23/2025 7:07 AM) Sensory: 1 (09/23/2025 7:07 AM) Best Language: 2 (09/23/2025 7:07 AM) Dysarthria: 2 (09/23/2025 7:07 AM) Extinction and Inattention: 0 (09/23/2025 7:07 AM) Ancillary tests: Brain Imaging: CT Head CT HEAD WO CONTRAST 09/19/2025 Narrative PROCEDURE: CT HEAD WO CONTRAST, DATE/TIME OF EXAM: 09/19/2025 11:52 PM, LOCATION [facility] INDICATION: I63.9: Ischemic stroke (HCC) G93.40: Acute encephalopathy ADDITIONAL CLINICAL INFORMATION: Ordering Provider Reason For Exam: cva Technologist Note: Additional: TECHNIQUE: CT of the head was performed without contrast according to standard protocol. COMPARISON: CT head 04/30/2025 FINDINGS: No acute intracranial hemorrhage or intra- or extra-axial fluid collections are identified. There is mild cerebral volume loss with associated ex vacuo ventricular dilatation. The basal cisterns are patent. No mass effect or midline shift is seen. Chronic infarct in the right ELECTRIC RANGE SERVICER territory. Additional encephalomalacia in the left shin radiata appears new since 04/30/2025. The roy-white matter differentiation otherwise appears normal. Periventricular white matter hypoattenuation is a nonspecific finding that may be indicative of chronic small vessel ischemic disease. There is atherosclerotic calcification of the carotid siphons. The visualized portions of the orbits, paranasal sinuses, and mastoids appear normal. No acute calvarial fracture is identified. Impression : 1.No CT evidence of acute hemorrhage, herniation, or large territorial infarct. 2.Please note CT is insensitive to small infarcts particularly in the posterior fossa, if there is continued clinical concern MRI can be obtained. 3.Encephalomalacia in the left shin radiata is new new since 04/30/2025. 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 > Dictated by Alberto David MD, (cardiac cath lab radiology technologist). > Dictated by Alberto David MD 09/19/2025 11:56 PM > Dictated by Special Education Tutor I, Tra Russell MD have personally reviewed and interpreted this examination/study. > Interpreting Provider: Tra Russell MD on 09/20/2025 12:[address] HEAD WO CONTRAST 09/17 FINDINGS: Periventricular and subcortical white matter hypodensities are seen, which likely represent sequelae of chronic microvascular change. Chronic infarct/encephalomalacia in the right parietal lobe. Chronic infarct/encephalomalacia in the left frontal lobe. No acute intracranial hemorrhage or CT evidence of acute-subacute, large territory infarct. There is no evidence of hydrocephalus, extraaxial fluid collection, mass effect or midline shift. There is no acute displaced calvarial fracture. Right maxillary sinus mucosal thickening, otherwise visualized paranasal sinuses and mastoid air cells are clear. MRI Angio, Brain/Neck 09/19/2025 IMPRESSION: 1. 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 The superior aspect of the left intracranial vertebral artery also appears occluded. 2. Nonvisualization of an anterior left MCA M2 branch as well as attenuated appearance of the remaining left MCA vasculature beyond the M1-M2 bifurcation. 3. Given impression 1 and 2 above, interventional neurology consultation is recommended. 4. Moderate focal stenosis of the right intracranial vertebral artery. 5. No high-grade stenosis or proximal vessel occlusion in the neck. MRI Brain MRI Brain Wo Contrast 09/18/2025 Narrative [facility] [address], [place] [address] Examination: MRI BRAIN WO CON, 09/18/2025 7:41 AM. Technique: Multiplanar multisequence magnetic resonance images of the brain were obtained without intravenous contrast. Clinical history: AMS, hx CVA Comparison: CT head 09/17/2025 Findings: There is focal ovoid restricted diffusion within the subcortical white matter of the left frontal lobe that may be represent an acute infarct. Suggestion of some cortical sparing which is somewhat atypical, therefore recommend MRI brain exam with contrast follow-up in 4-6 weeks unless symptoms warrant sooner characterization. Curvilinear susceptibility along the cortical margin of the right parietal convexity as evidence for cortical laminar necrosis. Scattered subcortical and periventricular white matter T2 FLAIR hyperintensities that are nonspecific but most commonly seen in setting of chronic small vessel ischemic change. Sellar, callosal, pineal, and craniovertebral junction regions appear within normal limits. There is no extra-axial collection. Basal cisterns appear normal. The proximal intracranial arterial flow voids have a normal appearance. Orbital contents appear normal. Paranasal sinuses are well aerated. Trace left mastoid air cell fluid. The right mastoid air cells are well aerated. Impression IMPRESSION: 1. Focal ovoid restricted diffusion within the subcortical white matter of the left frontal lobe that may represent an acute infarct. Suggestion of some cortical sparing which is somewhat atypical, therefore recommend MRI brain exam with contrast follow-up in 4-6 weeks unless symptoms warrant sooner characterization. 2. Mild chronic small vessel ischemic change. 3. 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 Ordered By: DALJIT VELAZCO Interpreted By: Jarod Vega MD, 09/18/2025 9:02 AM Findings delivered to Dr. Esquivel via [employer] secure messaging at the time of dictation. Cerebral Angiogram DATE/TIME OF EXAM: 09/20/2025 10:00 AM Procedure: Diagnostic Catheter Cerebral Angiogram Findings: - Left Vertebral artery It reveals a distal V2 - V3 segments with normal course and caliber. The V4 segment has a proximal segment with normal course and caliber, but there is visualization of alternating areas of severe stenosis in distal segment of V4 segment. The left vertebral artery ends in PICA which also has alternating areas of moderate stenosis in its proximal segments, the distal segments have a normal course and caliber. - Left Internal Carotid Artery It reveals a normal course and caliber of the intracranial segments. There is visualization of a prominent caliber posterior communicating artery suggestive of a ELECTRIC RANGE SERVICER variant. The middle cerebral artery has a diffuse decrease caliber of its horizontal segment causing moderate stenosis, the superior and inferior division have some there is visualization of alternating areas of moderate and severe stenosis following a beading pattern. The anterior cerebral artery has a diffuse decrease caliber of its A1 segment causing moderate stenosis. Cortical branches of the A2 segments such as frontopolar, pericallosal, callosomarginal have alternating areas of moderate and severe stenosis following a beading pattern. The venous phase shows a normal drainage. - Left External Carotid Artery, cerebral angiogram. It reveals a normal course and caliber of the distal branches of middle meningeal artery, occipital and superficial temporal artery. - Right Internal Carotid Artery. It reveals a normal course and caliber of the intracranial segments. There is visualization of a prominent caliber posterior communicating artery suggestive of a ELECTRIC RANGE SERVICER variant. The middle cerebral artery has a normal course and caliber, the rest of the segments have alternating areas of moderate stenosis following a beading pattern. The anterior cerebral artery has a normal course and caliber of its A1 segment, the rest of its segments have alternating areas of moderate and severe stenosis following a beading pattern. The venous phase shows a normal drainage. - Right External Carotid Artery. It reveals a normal course and caliber of the distal branches of middle meningeal artery, occipital and superficial temporal artery. -Right Vertebral artery. It reveals a V4 segment with a distal moderate stenosis. There is not further visualization of the vertebrobasilar junction or basilar artery due due to contrast washout however we cant rule out severe stenosis or occlusion as a selective angiogram of the right vertebra; artery was ot performed. Impression: - Multiple alternating areas of moderate to severe stenosis affecting anterior and posterior circulation following a beading pattern. This could represent severe intracranial atherosclerosis or QUALITY MANAGEMENT NURSE vasculitis, recommend clinical correlation. Cardiac: TTE/RADHA LVEF < 30%: []Yes [x]No (Value:60-65%) Akinesia or Hypokinesia: []Yes [x]No Patent Foramen [place]: []Yes [x]No Comments: ECHO RADHA COMPLETE 05/10/2025 Narrative Summary * Left ventricular systolic function is normal with an estimated ejection fraction of 60-65% by visual estimate. * Intact interatrial septum visualized by 2D and color Doppler imaging. * Agitated saline contrast study at rest and with Valsalva is negative for a shunt. * The left atrial appendage is normal in shape with normal velocity, and there is no thrombus. Patient Info Name: Gena Pierre Age: 64 years : 1960 Gender: Female Ht: 66 in Wt: 200 lb BSA: 2.09 m2 HR: 112 bpm BP: 136 / 79 mmHg Heart Rhythm: Tachycardia Exam Date: 05/10/2025 9:20 AM Patient Status: I/P Study Site: [facility] Primary Location: [facility] EStudy Info Technical Quality: Adequate Exam Type: ECHO RADHA COMPLETE Indications R55 - Syncope with abnormal neurologic examination R29.90 - Syncope with abnormal neurologic examination Contrast/Agitated Saline Contrast / Saline: Agitated Saline Amount: 10.00 ml Reaction to Contrast: no * A transesophageal echocardiogram is performed. Staff Referring Physician: Chintan Caro Ordering Provider: Chintan Caro Attending Physician: Chintan Caro Fellow: Mary Graham Mammography Tech: Rachel Jordan Performing Physician: Maryann Roa MD Mammography Tech: Mary Graham Complications * There were no complications prior to, during or in recovery from the transesophageal echocardiogram. Medications * The posterior pharynx was sprayed with Cetacaine spray and the patient was administered viscous Xylocaine 2% by mouth. * The patient was premedicated with 3.00 mg intravenous Versed. * The patient was premedicated with 75.00 mcg intravenous Fentanyl. Procedure Details The patient arrived in a fasting state after obtaining informed consent. The transesophageal probe was passed without difficulty into the posterior pharynx, mid-esophagus, distal esophagus, and gastric fundus. Imaging was performed at multiple levels. The patient tolerated the procedure well and there were no complications. The patient was transferred out of the examination area in satisfactory condition. Left Ventricle The left ventricle is normal in size. Left ventricular systolic function is normal with an estimated ejection fraction of 60-65% by visual estimate. Right Ventricle Right ventricular chamber dimension is normal in size. Right ventricular systolic function is normal. Ventricular Septum Intact interventricular septum visualized by 2D and color Doppler and agitated saline imaging. Left Atrium The left atrium is normal in size. There is no thrombus visualized in the left atrium. Right Atrium The right atrium is normal in size. An infusion catheter is seen in the right atrium. Atrial Septum Intact interatrial septum visualized by 2D and color Doppler imaging. Agitated saline contrast study at rest and with Valsalva is negative for a shunt. Atrial Appendage The left atrial appendage is normal in shape with normal velocity, and there is no thrombus. Aortic Valve The aortic valve is trileaflet. There is no aortic valve regurgitation. There is no aortic valve stenosis. Mitral Valve Mitral valve is structurally and functionally normal to two-dimensional, color flow Doppler and Doppler interrogation. There is mild mitral valve regurgitation. Tricuspid Valve The tricuspid valve is structurally and functionally normal by two-dimensional, color flow Doppler and Doppler interrogation. There is no tricuspid valve regurgitation. Pulmonary Veins Pulmonary veins are normal by two-dimensional and color flow imaging. Doppler velocity profiles are normal indicating no obstruction of flow, normal left-sided filling pressures. Aorta Minimal plaque in the ascending aorta, aortic arch and descending aorta. Report Signatures Finalized by Maryann Roa MD on 05/10/2025 05:18 PM Reviewed by Fellow Mary Graham on 05/10/2025 04:43 PM Lumbar Puncture Latest Reference Range & Units 05/07/25 12:06 Tube Number TUBE 4 Color CSF COLORLESS Appearance CSF CLEAR Nucleated Cells CSF <=5 x10E6/L 4 RBC CSF 0 - 5 x10E6/L 614 (H) Xanthochromia CSF ABSENT ABSENT Glucose,CSF-STAT 40 - 70 mg/dL 43 Albumin CSF 8.4 - 34.2 mg/dL 14.2 Glyei-4-Pyytyosp CSF 0.0 - 5.4 mg/dL 2.4 Beta-Globulin CSF 0.0 - 8.1 mg/dL 3.1 Gamma Globulin CSF 0.0 - 5.4 mg/dL 2.1 Alpha-1 Globulin CSF 0.0 - 3.1 mg/dL 1.3 Angiotensin-Converting Enzyme CSF 0.0 - 2.5 U/L 0.6 IgA CSF 0.0 - 0.7 mg/dL 0.2 Prealbumin CSF 0.0 - 3.1 mg/dL 1.1 Cryptococcus Antigen CSF Negative Negative Protein CSF 15.0 - 45.0 mg/dL 15 - 45 mg/dL 24.2 35 (H): Data is abnormally high Rheumatology Labs Latest Reference Range & Units 05/01/25 00:32 05/07/25 12:06 LEX IgG None Detected None Detected Myelin Basic Protein 0.00 - 5.50 ng/mL 55.00 (H) ANCA Pattern None Detected None Detected ANCA Titer <1:20 <1:20 Myeloperoxidase Antibody 0 - 19 AU/mL 0 Rheumatoid Factor Screen Negative Negative Rheumatoid Factor <30 IU/mL <15 Serine Proteinase 3 IgG 0 - 19 AU/mL 0 (H): Data is abnormally high 09/21-CRP slightly elevated at 0.8 EKG (has Loop Recorder) Date: N/A Sinusal: []Yes [x]No Atrial Fibrillation: []Yes [x]No Telemetry Atrial Fibrillation: []Yes [x]No Labs: Lipid Profile Home Statin use: [x]Yes []No Recent Labs Component Name 09/20/25 0412 CHOL 232* HDL 65 LDLCALC 148* TRIG 95 Endocrinology: T2DM previously diagnosed? [x]Yes []No Wireless Glucose WB/POC (mg/dL) Date/Time Value 09/23/2025 04:23 PM 113 (H) 09/23/2025 12:31 PM 89 09/22/2025 10:06 PM 200 (H) 09/22/2025 09:09 PM 64 (L) Recent Labs Component Name 09/20/25 0412 04/29/25 0115 HGBA1C 5.0 4.5 Cardiac Enzymes Recent Labs Component Name 09/20/25 0542 09/20/25 0412 TROPIHS 13 13 Recent Labs Component Name 09/20/25 0542 09/20/25 0412 TROPIHS 13 13 Troponin Curve: []Yes [x]No Assessment Gena Pierre is a 65 year old female presenting for confusion, expressive aphasia, chronic left sided weakness from prior stroke in 2024. She has severe intracranial atherosclerosis. She is on DAPT. ESRD on dialysis. CT head without contrast did not show any intracranial bleed. EEG has been normal at OSH. MRI shows a small focus of left frontal lobe subcortical infarct. Echo done in April had shown normal EF, without any evidence of PFO, or left atrial thrombus. Loop recorder in place. MRA showing patchy multifocal stenosis -possibly secondary to atherosclerosis versus vasculitis versus vasospasm. DSA showing alternating areas of severe stenosis in anterior and posterior circulation following a beading pattern-which could be due to vasculitis versus multifocal or atherosclerosis. Discussedwith rheumatology today, given patient's extensive prior workup including prior LP-and comorbid medical conditions including diabetes, hypertension and end-stage renal disease-multifocal atherosclerosis is far more likely than vasculitis, and thus repeat LP is not needed to rule out QUALITY MANAGEMENT NURSE vasculitis. Stroke Type: Ischemic Stroke Mechanism: ICAD Plan Plan: Further workup : Stroke workup complete. Needs plan to remove restraints for 24 hours and to protect her HD catheterso that patient does not pull it and SNF transfer. Will plan on transferring to [facility] in the meantime Secondary stroke prevention: Aspirin 81mg Start Brilinta 90 mg Hyperlipidemia: Atorvastatin 80 mg (increased from home 40 mg) (LDL = 148) SBP goal (short term): < 220 To be achieved with: Labetalol 10 mg IV PRN (HR>70), Hydralazine 10 mg IV PRN (HR<70) SBP goal (alf): <120 +/- 10 To be achieved with: Home Coreg 25 mg DVT PPX: Heparin Recovery Plan: Swallow Evaluation/Diet: DIET CARDIAC PT/OT evaluation:PT Discharge Recommendations Recommended Transportation Method: Stretcher/Ambulance PT Discharge Recommendations: Patient would benefit from multidisciplinary therapy Placement: Pending discharge to SNF-family declining returning back to previous patient's previous senior living facility as a did not think it was a good fit for patient, and are hoping to find a new facility -pending social work assistance Checklist: Code Code Status: NO CPR(DNR) NO INTUBATION Access Hemodialysis catheter Bowel Regimen Miralax PRN, Sennakot daily Specialities involved Stroke, Nephrology, Rheumatology Patient/Family updated Cousin and POA updated by phone Additional Hospital Problems: History of ischemic right MCA stroke Present on Admission: Yes Ischemic stroke (HCC) Present on Admission: Yes Primary hypertension Present on Admission: Yes -see above ESRD (end stage renal disease) (HCC) Present on Admission: Yes Secondary hyperparathyroidism (HCC) Present on Admission: Yes ESRD on HD - hemodialysis catheter placement confirmed with CXR 09/20 - dialysis schedule MWF - last dialysis 09/21 Hyperparathyroidism - Vitamin D low (19.9) -DC'd vitamin D supplementation per nephrology due to hypercalcemia, nephrology recommending SestaMIBI scan -Started on send Salit 60 mg daily -Recommending ENT consult for possible 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 Type 2 diabetes mellitus with unspecified complications (HCC) Present on Admission: Yes On SSI Hx of major depression Present on Admission: Yes -Continue home venlafaxine Patient seen and discussed with Attending Physician, Dr. Jayashree Salcedo MD Neurology Resident 09/23/2025 Cosigned by Columba Blanc MD at 09/25/2025 7:19 PM ANIMAL HUMANE AGENT SUPERVISOR AL HUMANE AGENT SUPERVISOR AL HUMANE AGENT SUPERVISOR AL HUMANE AGENT SUPERVISOR * Velma Salcedo MD - 09/23/2025 4:49 PM CST [facility] Transfer Checklist: Reasons for Transfer to [facility] Patient was awaiting SNF transfer however has mittens on which needs to be off for 24 hours in order for her to be able to go back to her SNF. Will need a plan to remove those restraints and to protect her HD catheter Pertinent PMH: 65 year old female with hx of previous stroke on DAPT (ASA+Plavix) currently admitted with L frontal lobe ischemic stroke. Stroke workup is complete. Mechanism of her stroke is ICAD and failed DAPT. Patient was switched to ASA+Brilinta. On appropriate secondary stroke prevention with DAPT and atorva statin. Vasculitis workup in 04/2025 was negative. Rheum re-consulted and low concern for vasculitis. Home Meds Being Held: None ABx Indications/End Date: None Consult Teams Past and Present: Rheumatology, Nephrology Pending Workup: None Things to Watch: None Disposition Place and Date: SNF when the patient is off restraints for 24 hours To Address Prior to DC: Plan for removing restraints and protecting HD cathetar Follow Up Appointments: (Already arranged and need to arranged) Cardiology - 09/26/25 Neurology - 11/21/25 Needs to be arranged - Nephrology concerned for hypercalcemia and recommending SestaMIBI scan and ENT for outpatient workup of overactive parathyroid glands To Address after DC (F/U etc): None Velma Salcedo MD Neurology Resident AL HUMANE AGENT SUPERVISOR * Danis Mckeon - 09/23/2025 3:12 PM CST introduced pastoral care to patient. Pt was minimally verbal, but indicated that she was doing okay. Finish Repair Worker offered further pastoral care, pt said, That's all. That's all. Finish Repair Worker assured patient that pastoral care is available 02/05. Danis Mckeon CPE Apn Ascom # [phone] On-call Ascom # [phone] AL HUMANE AGENT SUPERVISOR * Ann Lombardi SLP - 09/23/2025 2:03 PM CST [facility] Department of Physical Medicine & Rehabilitation Progress Note Patient: Gena Pierre Med Record Number: [id number] Date of : 1960 Age: [age] year old 09/23/25 1403 Missed Visit Missed Visit Refused (Pt orally defensive when presented with PO trials.) AL HUMANE AGENT SUPERVISOR * Radha Hansen RN - 09/23/2025 11:40 AM CST Hemodialysis Complete Time: 3.5 hours Access: Tunneled HD CVC - RIJ UF: 1,000 ml Blood Processed: 63.3 L Medications: CVC lumens locked with heparin dwell Tolerated: Well, VSS, no c/o with txmt Problem: Hemodynamic Status/Cardiac Output Goal: Patient has stable vital signs and fluid balance Outcome: Progressing Problem: Fluid and Electrolyte Imbalance Goal: Fluid and electrolyte balance are achieved/maintained Outcome: Progressing Problem: Infection Goal: Signs and symptoms of infections are decreased or avoided Outcome: Progressing AL HUMANE AGENT SUPERVISOR * Alicja Diaz - 09/23/2025 10:29 AM CST Updated progress notes sent to patient's Outpatient Hemodialysis Dialysis center. 09/23/2025 2:17 PM Attempted to meet with patient in patient's room. Patient was only able to shake her head when asked if she understood me after introducing my self. Will try back at a later time Alicja Diaz [facility] As[facility]: [phone] Office: [phone] AL HUMANE AGENT SUPERVISOR AL HUMANE AGENT SUPERVISOR * Tylor Covarrubias LCSW - 09/23/2025 9:03 AM CST New Facility Placement Referrals initiated: Continued Care and Services - Admitted Since 09/19/2025 Destination Service Provider Request Status Services Address Referrals Phone Referrals Fax Patient Preferred [facility] Pending - Request Sent Primary: [facility] [address] [facility] [id number] [phone] -- [facility] Pending - Request Sent Primary: [facility] [address] [facility] [phone] -- [facility] Detention Pending - Request Sent Primary: Detention [phone] [facility] [phone] -- Current Availability last updated by Dolores Emanuel on 04/18/2025 1151 All 120 beds are dual certified for Medicare and Medicaid. We take both short- term and long-term patients. Dialysis/Infusion Service Provider Request Status Services Address Referrals Phone Referrals Fax Patient Preferred [facility] Hemodialysis Accepted Primary: Hemodialysis [address] [phone] -- SW met with patient at bedside to confirm that patient was previously with [facility] a LTC resident. SW discussed referrals being sent to other facilities pending determination. Planned DC to return to facility at discharge with family to eventually manage transition to a different LTC. PINA LVM with admissions at patients facility requesting a call back to discuss patients return. Social Work Brien Covarrubias, MPH, BLOW MACHINE TENDER [employer] P: [phone] AL HUMANE AGENT SUPERVISOR * Columba Blanc MD - 09/23/2025 7:33 AM CST Images from the original note were not included. I have seen and examined the patient with the Resident and I agree with the findings and plan of care as documented by the Resident. Please refer to the Resident's note for plans of active problems not discussed in this note. Date of Service: 09/23/2025 Columba Blanc MD, PhD Multidisciplinary rounds were held at 9am and the patient's care and recovery plan were reviewed and developed with the assembled team. 65F with a hx of ICAD and hx of prior stroke. She has been on ASA and Plavix. Now with new aphasia and infarction on CT and evidence of medium and small vessel beading. Vasculitis workup in 04/2025 was negative. Rheum re-consulted and low concern for vasculitis. She has mixed aphasia with mild preservation in comprehension and she is able to follow one-step commands. Stroke mechanism: ICAD - continue ASA + Brillinta - high intensity statin - PT/OT/AUTOMOTIVE BRAKE SPECIALIST eval - Dispo pending Problem List History of ischemic right MCA stroke (POA: Yes) ESRD (end stage renal disease) (HCC) (POA: Yes) Primary hypertension (POA: Yes) Type 2 diabetes mellitus with unspecified complications (HCC) (POA: Yes) Secondary hyperparathyroidism (HCC) (POA: Yes) Ischemic stroke (HCC) (POA: Yes) Hx of major depression (POA: Yes) See Resident note for the remaining problem specific plan. 4 MEDICATIONS FOR CURRENT ENCOUNTER: SCHEDULED MEDICATIONS: Or 0.9% NaCl injection 3 mL, Intracatheter, q8h aspirin chew tablet 81 mg, Oral, QDAY aspirin suppository 300 mg, Rectal, QDAY atorvastatin (Lipitor) tablet 80 mg, Oral, AT BEDTIME carvedilol (Coreg) tablet 25 mg, Oral, BID heparin injection 1,000 Units, Intracatheter, post-Dialysis once heparin injection 5,000 Units, Subcutaneous, q8h insulin aspart (NovoLOG) pen 0-12 Units, Subcutaneous, TID senna-docusate (Senokot-S) tablet 1 tablet, Oral, QDAY ticagrelor (Brilinta) tablet 90 mg, Oral, BID venlafaxine XR 24hr (Effexor XR) capsule 150 mg, Oral, QDAY WITH DINNER [START ON 09/24/2025] cinacalcet (Sensipar) tablet 30 mg, Oral, QDAY CONTINUOUS MEDICATIONS: PRN MEDICATIONS: Or Or Or 0.9% NaCl injection 1-10 mL, Intracatheter, PRN acetaminophen (Tylenol) tablet 650 mg, Oral, q6h PRN dextrose IV 12.5 g, Intravenous, PRN dextrose IV 25 g, Intravenous, PRN glucose (Diabetic Use) oral gel, Oral, PRN hydrALAZINE (Apresoline) injection 10 mg, Intravenous, q20 min PRN labetalol (Normodyne; Trandate) injection 10 mg, Intravenous, q15 min PRN ondansetron (disintegrating) (Zofran ODT) tablet 4 mg, Oral, q6h PRN ondansetron (Zofran) injection 4 mg, Intravenous, q6h PRN polyethylene glycol 3350 (Miralax) packet 17 g, Oral, QDAY PRN Patient Vitals for the past 24 hrs: Temp Pulse Resp BP 09/23/25 1621 98.2 ??F (36.8 ??C) 82 -- 130/69 09/23/25 1135 98.1 ??F (36.7 ??C) 82 18 109/65 09/23/25 1115 -- 86 18 98/72 09/23/25 1100 -- 89 18 99/66 09/23/25 1045 -- 91 18 89/64 09/23/25 1030 -- 98 18 85/64 09/23/25 1015 -- 98 18 97/65 09/23/25 1000 -- 94 18 95/63 09/23/25 0945 -- 96 18 103/67 09/23/25 0930 -- 101 18 102/68 09/23/25 0915 -- 92 18 99/67 09/23/25 0900 -- 89 18 101/70 09/23/25 0845 -- 93 18 119/60 09/23/25 0830 -- 80 18 116/68 09/23/25 0815 -- 76 18 116/67 09/23/25 0800 -- 75 18 115/74 09/23/25 0745 -- 77 18 125/72 09/23/25 0730 98.2 ??F (36.8 ??C) 82 18 103/66 09/23/25 0429 98.1 ??F (36.7 ??C) 84 -- 102/70 09/23/25 0214 98.3 ??F (36.8 ??C) 83 18 100/64 09/22/252111 99.1 ??F (37.3 ??C) 79 18 117/66 09/22/252110 -- 79 -- 11766 Recent Labs Component Name 09/22/25233809/22/2543609/21/256 09/20/25 0412 05/13/25 0720 05/12/25 0623 NA 136 136 140 140 140 131* 128* CL 97* 97* 96* 95* 95* 98 94* CO2 24 28 27 29 29 24 29 BUN 37* 24 51* 43* 43* 26 16 CREATININE 8.90* 6.87* 11.29* 9.14* 9.14* 7.05* 5.41* CALCIUM 10.1 11.7* 11.0* 10.7* 10.7* 7.7* 7.8* PHOS - - - 6.6* 3.2 3.3 Recent Labs Component Name 09/22/25233809/22/2543609/20/25 041 WBC 14.1* 12.2* 8.8 8.8 RBC 3.52* 4.05 4.01 4.01 HGB 10.2* 11.5* 11.4* 11.4* HCT 32.0* 36.1 35.5 35.5 Recent Labs Component Name 09/20/25411 CHOL 232* TRIG 95 HDL 65 LDLCALC 148* Recent Labs Component Name 09/20/25 0412 04/29/25 0115 HGBA1C 5.0 4.5 EAG 97 82 Recent Labs Component Name 09/22/25 2339 09/22/25 0437 09/20/25 0412 PLTCOUNT 349 [phone] AL HUMANE AGENT SUPERVISOR * Radha Hansen RN - 09/23/2025 6:30 AM CST REPORT BEFORE DIALYSIS Diagnosis (SAEID/CRF): ESRD Non-Renal Diagnosis: Ischemic Stroke Hep B Status: 09/21/25 Consent Signed: 09/21/25 Isolation: No active isolations Allergies: Allergies[1] Code Status: No CPR - No Intubation Orientation Status: A&Ox Self, responds to stimuli On telemetry/rhythm: NSR Oxygen: RA Need for pain medications: No Blood pressure issues: No On any drips: No Is patient diabetic: ACHS Any labs to draw: No Any other procedures today: No Any concerns about this patient: Pulling at lines Any medications to be given with dialysis: None Due date of next Central Line Dressing change: 09/29 Access: Tunneled HD CVC - RIJ [1] Allergies Allergen Reactions Lactose GI Discomfort AL HUMANE AGENT SUPERVISOR * Miller Olson RN - 09/23/2025 2:09 AM CST Problem: Swallowing Goal: LTG - Patient will tolerate the least restrictive diet consistency to allow for safe consumption of daily meals Outcome: Progressing Problem: Communication/Dysarthria Goal: LTG - Patient will improve expressive language skills to allow for communication of wants andneeds in daily activities Outcome: Progressing Goal: LTG - Patient will improve receptive language skills to allow for completion of daily activities Outcome: Progressing Problem: Transfers Goal: LTG - Patient will transfer from one surface to another Outcome: Progressing Problem: Respiratory - Adult Goal: Achieves optimal ventilation and oxygenation Description: INTERVENTIONS: Outcome: Progressing AL HUMANE AGENT SUPERVISOR * Lidia Martinez RN - 09/22/2025 5:22 PM CST Care Coordination Progress Note Expected Discharge Date: 09/21/2025 Discharge Plan: LTC. Patient not medically ready for discharge. Pt family request referrals to be send to [facility] per URBAN Price. Referral sent. Pt pending safe discharge plan. CM will continue to follow for any discharge needs. Continued Care and Services - Admitted Since 09/19/2025 Destination Service Provider Request Status Services Address Referrals Phone Referrals Fax Patient Preferred [facility] Pending - Request Sent Primary: [facility] [address] [facility] [address] [phone] -- [facility] Pending - Request Sent Primary: [facility] [address] [facility] [phone] -- Dialysis/Infusion Service Provider Request Status Services Address Referrals Phone Referrals Fax Patient Preferred [facility] Hemodialysis Accepted Primary: Hemodialysis [address] [phone] -- Family Support (Name and Phone): Extended Emergency Contact Information Primary Emergency Contact: Adry Smith Mobile Relation: Cousin Shotgun Shell Reprinting Unit Operator needed? No Secondary Emergency Contact: Alberta Pierre Mobile Relation: Sister Shotgun Shell Reprinting Unit Operator needed? No Transportation at Discharge: : READMISSION RISK SCORE is 17.8 at 5:24 PM 09/22/2025.: Lidia VALENZUELA, RN Weekend Home Help Aide AL HUMANE AGENT SUPERVISOR * Dk Bhardwaj MD - 09/22/2025 4:58 PM CST [facility] Rheumatology Consult Follow-up Interval History: Patient evaluated at bedside today with sister present. At the same time neurology was present and case was discussed. Alerted both neurology team as well as family at bedside that concern for primary QUALITY MANAGEMENT NURSE vasculitis was low. Patient this a.m. was alert and oriented x 0, following commands but only r eplying yes or no answers. Current Medications: Medications[1] Allergies: Lactose Physical Exam: BP 161/99 (BP Location: Left arm, Patient Position: Lying) Pulse 83 Temp 98 ??F (36.7 ??C) (Oral) Resp 20 Ht 1.651 m (5' 5) Wt 78 kg (172 lb) SpO2 100% GENERAL: NAD HEENT/NECK: White sclerae. Ext ears wnl. No oropharyngeal lesions. No palpable masses. CHEST/LUNGS: Normal work of breathing, CTAB. CARDIOVASCULAR: Regular rhythm, crisp S1/S2, no M/R/G. Ext WWP. No PEARL. ABDOMEN: S/ND/NT. SKIN/NAILS: No rashes on exposed skin. PSYCH: Alert, appropriately interactive. NEURO: Responds to commands and tracks around the room however alert and oriented x 0. Muscle strength over bilateral arms is 4 out of 5, left leg 4 out of 5, right leg 3 out of 5, MSK: No synovitis, dactylitis, or enthesitis. Labs: Reviewed, including those as noted below Recent Labs Component Name 09/22/25 0437 09/20/25 0412 05/13/25 0720 05/12/25 0623 05/11/25 0626 WBC 12.2* 8.8 8.8 7.6 7.4 11.8* HGB 11.5* 11.4* 11.4* 7.3* 7.3* 7.8* Recent Labs Component Name 09/22/25 0437 09/21/25 0436 09/20/25 0412 NA 136 140 140 140 CL 97* 96* 95* 95* CO2 28 27 29 29 BUN 24 51* 43* 43* CREATININE 6.87* 11.29* 9.14* 9.14* Recent Labs Component Name 09/20/25 0412 AST 14 ALT 13 ALKPHOS 114 TBILI 0.5 Latest Reference Range & Units 05/01/25 00:32 05/07/25 12:06 LEX IgG None Detected None Detected Myelin Basic Protein 0.00 - 5.50 ng/mL 55.00 (H) ANCA Pattern None Detected None Detected ANCA Titer <1:20 <1:20 Myeloperoxidase Antibody 0 - 19 AU/mL 0 Rheumatoid Factor Screen Negative Negative Rheumatoid Factor <30 IU/mL <15 Serine Proteinase 3 IgG 0 - 19 AU/mL 0 (H): Data is abnormally high Latest Reference Range & Units 05/07/25 12:06 Tube Number TUBE 4 Color CSF COLORLESS Appearance CSF CLEAR Nucleated Cells CSF <=5 x10E6/L 4 RBC CSF 0 - 5 x10E6/L 614 (H) Xanthochromia CSF ABSENT ABSENT Glucose,CSF-STAT 40 - 70 mg/dL 43 Albumin CSF 8.4 - 34.2 mg/dL 14.2 Eqief-8-Apgzpuuj CSF 0.0 - 5.4 mg/dL 2.4 Beta-Globulin CSF 0.0 - 8.1 mg/dL 3.1 Gamma Globulin CSF 0.0 - 5.4 mg/dL 2.1 Alpha-1 Globulin CSF 0.0 - 3.1 mg/dL 1.3 Angiotensin-Converting Enzyme CSF 0.0 - 2.5 U/L 0.6 IgA CSF 0.0 - 0.7 mg/dL 0.2 Prealbumin CSF 0.0 - 3.1 mg/dL 1.1 Cryptococcus Antigen CSF Negative Negative Protein CSF 15.0 - 45.0 mg/dL 15 - 45 mg/dL 24.2 35 (H): Data is abnormally high Other Studies: IR Carotid Cerebral Angiogram Result Date: 09/20/2025 Impression: - Multiple alternating areas of moderate to severe stenosis affecting anterior and posterior circulation following a beading pattern. This could represent severe intracranial atherosclerosis or QUALITY MANAGEMENT NURSE vasculitis, recommend clinical correlation. > Dictated by Special Education Tutor I, MD Nickie have personally reviewed and interpreted this examination/study. > Interpreting Provider: Omar Jack MD on 09/20/2025 3:[address] HEAD WO CONTRAST Result Date: 09/20/2025 IMPRESSION: 1.No CT evidence of acute hemorrhage, herniation, or large territorial infarct. 2.Please note CT is insensitive to small infarcts particularly in the posterior fossa, if there is continued clinical concern MRI can be obtained. 3.Encephalomalacia in the left shin radiata is new new since 04/30/2025. 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 > Dictated by Alberto David MD, (cardiac cath lab radiology technologist). > Dictated by Alberto David MD 09/19/2025 11:56 PM > Dictated by Special Education Tutor I, Tra Russell MD have personally reviewed and interpreted this examination/study. > InterpretingProvider: Tra Russell MD on 09/20/2025 12:15 AM MRI Angio Neck Wo Contrast Result Date: 09/19/2025 IMPRESSION: 1. 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 The superior aspect of the left intracranial vertebral artery also appears occluded. 2. Nonvisualization of an anterior left MCA M2 branch as well as attenuated appearance of the remaining left MCA vasculature beyond the M1-M2 bifurcation. 3. Given impression 1 and 2 above, interventional neurology consultation is recommended. 4. Moderate focal stenosis of the right intracranial vertebral artery. 5. No high-grade stenosis or proximalvessel occlusion in the neck. Impression 1-3 were sent to hospitalist on-call by Dr. Douglas via [employer] at 09/19/2025 6:54 PM (central time). Referred By: Interpreted By: Micheal Douglas MD, 09/19/2025 6:42 PM MRI Angio Brain Art Bill Wo Cont Result Date: 09/19/2025 IMPRESSION: 1. 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 The superior aspect of the left intracranial vertebral artery also appears occluded. 2. Nonvisualization of an anterior left MCA M2 branch as well as attenuated appearance of the remaining left MCA vasculature beyond the M1-M2 bifurcation. 3. Given impression 1 and 2 above, interventional neurology consultation is recommended. 4. Moderate focal stenosis of the right intracranial vertebral artery. 5. No high-grade stenosis or proximalvessel occlusion in the neck. Impression 1-3 were sent to hospitalist on-call by Dr. Douglas via [employer] at 09/19/2025 6:54 PM (central time). Referred By: Interpreted By: Micheal Douglas MD, 09/19/2025 6:42 PM MRI Brain Wo Contrast Result Date: 09/18/2025 IMPRESSION: 1. Focal ovoid restricted diffusion within the subcortical white matter of the left frontal lobe that may represent an acute infarct. Suggestion of some cortical sparing which is somewhatatypical, therefore recommend MRI brain exam with contrast follow-up in 4-6 weeks unless symptoms warrant sooner characterization. 2. Mild chronic small vessel ischemic change. 3. 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 Ordered By: DALJIT VELAZCO Interpreted By: Jarod Vega MD, 09/18/2025 9:02 AM Findings delivered toDr. Esquivel via [employer] secure messaging at the time of dictation. CT Head Wo Contrast Result Date: 09/17/2025 IMPRESSION: 1. No acute intracranial findings. If there is persistent clinical concern for acute ischemia, brain MRI is more sensitive. 2. Chronic microvascular change and multifocal chronic infarct/encephalomalacia as above. Referred By: Interpreted By: Micheal Douglas MD, 09/17/2025 7:39 PM Assessment: #. Concern for QUALITY MANAGEMENT NURSE vasculitis Differential: Severe atherosclerosis versus primary QUALITY MANAGEMENT NURSE vasculitis -This patient with risk factors for vasculopathies including longstanding history of diabetes, hypertension, end-stage renal disease requiring HD, hyperlipidemia. Because of this longstanding historyof atherosclerosis with prior normal lumbar puncture the pretest probability for primary QUALITY MANAGEMENT NURSE vasculitis is low. Case discussed today with neurology that patient's presentation can be attributed to severe atherosclerosis and that lumbar puncture would not be needed to rule out primary QUALITY MANAGEMENT NURSE vasculitis. SUMMARY OF RECOMMENDATIONS - Presentation due to severe atherosclerosis Rheumatology will sign off. Please contact the rheumatology fellow on-call with questions. This patient was seen and staffed with attending Dr. Shea. Dk Garland MD Rheumatology Fellow [facility] [1] Current Facility-Administered Medications Medication Dose Route Frequency Provider Last Rate Last Admin 0.9% NaCl injection 3 mL 3 mL Intracatheter q8h Sahara Garcia MD 3 mL at 09/22/25 1408 And 0.9% NaCl injection 1-10 mL 1-10 mL Intracatheter PRN Sahara Garcia MD acetaminophen (Tylenol) tablet 650 mg 650 mg Oral q6h PRN Sahara Garcia MD aspirin chew tablet 81 mg 81 mg Oral QDAY Kimberley Mukherjee MD 81 mg at 09/22/25 0903 Or aspirin suppository 300 mg 300 mg Rectal QDAY Kimberley Mukherjee MD atorvastatin (Lipitor) tablet 80 mg 80 mg Oral AT BEDTIME Kimberley Mukherjee MD 80 mg at 09/21/252054 carvedilol (Coreg) tablet 25 mg 25 mg Oral BID WC Kimberley Mukherjee MD 25 mg at 09/22/25 09 cinacalcet (Sensipar) tablet 60 mg 60 mg Oral QDAY Kathy Sebastian MD 60 mg at 09/22/25 1218 dextrose IV 12.5 g 12.5 g Intravenous PRN Sahara Garcia MD 12.5 g at 09/20/25 1602 Or dextrose IV 25 g 25 g Intravenous PRN Sahara Garcia MD glucose (Diabetic Use) oral gel Oral PRN Sahara Garcia MD heparin injection 5,000 Units 5,000 Units Subcutaneous q8h Kimberley Mukherjee MD 5,000 Units at 09/22/251417 labetalol (Normodyne; Trandate) injection 10 mg 10 mg Intravenous q15 min PRN Sahara Garcia MD Or hydrALAZINE (Apresoline) injection 10 mg 10 mg Intravenous q20 min PRN Sahara Garcia MD insulin aspart (NovoLOG) pen 0-12 Units 0-12 Units Subcutaneous TID Sahara Garcia MD ondansetron (disintegrating) (Zofran ODT) tablet 4 mg 4 mg Oral q6h PRN Sahara Garcia MD Or ondansetron (Zofran) injection 4 mg 4 mg Intravenous q6h PRN Sahara Garcia MD polyethylene glycol 3350 (Miralax) packet 17 g 17 g Oral QDAY PRN Kimberley Mukherjee MD senna-docusate (Senokot-S) tablet 1 tablet 1 tablet Oral QDAY Kimberley Mukherjee MD 1 tablet at 09/22/25902 ticagrelor (Brilinta) tablet 90 mg 90 mg Oral BID Cecelia Byers MD 90 mg at 09/22/25 141 venlafaxine XR 24hr (Effexor XR) capsule 150 mg 150 mg Oral QDAY WITH DINNER Kimberley Mukherjee MD 150 mg at 12/13/25 2055 Cosigned by Daniel Shea MD at 09/22/2025 9:44 PM ANIMAL HUMANE AGENT SUPERVISOR AL HUMANE AGENT SUPERVISOR AL HUMANE AGENT SUPERVISOR Associated attestation - Daniel Shea MD - 09/22/2025 9:44 PM ANIMAL HUMANE AGENT SUPERVISOR Rheumatology Attending Attestation: I have seen and examined the patient with the fellow and I agree with the findings and plan of careas documented by the fellow. The patient has known severe atherosclerosis which is the most likely etiology of the patient's recurrent strokes. The neurology team asked us if the patient may have comorbid primary angiitis of theCNS, which is a very rare disease. Our suspicion is low, especially considering unremarkable CSF analysis from May 2025. We advised that next step in ruling out primary angiitis of the QUALITY MANAGEMENT NURSE would require repeat LP with CSF analysis. After discussion with neurology team, given that our pretest probabilities for primary angiitis of the QUALITY MANAGEMENT NURSE are low, we decided that risk:benefit ratio for lumbar puncture at this time does not support the procedure. If CSF were to be obtained and concerning for QUALITY MANAGEMENT NURSE in flammation, the subsequent diagnostic study would be a brain biopsy, and again risk:benefit ratio would be challenging and overall patient prognosis would be poor regardless of therapy. After multidisciplinary discussion, lumbar puncture will not be pursued at this time. Rheumatology team will signoff for now. Today???s evaluation to inform management recommendations included review of other providers??? documentation, review of diagnostic studies, reviewing separately obtained history, performing a medically appropriate evaluation, communicating with other health caregivers non medical, documenting clinical information in the health record, independently interpreting results, counseling regarding the patient's medical problems and management plan, and care coordination. Time for these services on the date of encounter: 50+ minutes. Date of Service: 09/22/25. Daniel Shea MD, FACP, FACR Director, Rheumatology Fellowship Program Department of Internal Medicine [facility] * Milena Terry RN - 09/22/2025 3:52 PM CST CM at bedside for discharge planning. Met with patient and sister, Alberta, who is also her financially POA. Cousin, Adry, is not present but is patient's medical POA. Patient currently lives at [facility] but would like to live in LTC at [facility]. CM let them know we are able to put in referrals for this but when she is medically ready, she would need to go back to [facility] and family will need to follow up on the referral. Patient is not medically appropriate for the next level of care as she is restrained and has a mitten to the right hand. Referral placed to: [facility]. Milena Terry RN Weekend Care Coordination AL HUMANE AGENT SUPERVISOR * Kimberley Mukherjee MD - 09/22/2025 1:32 PM CST [facility] Transfer Checklist: Reasons for Transfer to [facility]: Pending Placement to Facility. Anticipating D/C on 09/25 Brief Hospital Course: Gena Pierre is a 65 year old female with past medical history of CVA, DM2, ESRD on HD, hyperparathyroidism who presents to the ED for the above. Patient unable to provide any history. RN reports patient has been waxing and waning in her ability to communicate, she was able to state her name and when she does dialysis. This has been goingon since 08/31 when she had a UTI. Head without contrast did not show any intracranial bleed. EEG has been normal at OSH. MRI shows a small focus of left frontal lobe subcortical infarct. Echo done in April had shown normal EF, without any evidence of PFO, or left atrial thrombus. Loop recorder in place. MRA showing patchy multifocal stenosis -possibly secondary to atherosclerosis versus vasculitis versus vasospasm. DSA was performed and was concerning forpossible QUALITY MANAGEMENT NURSE vasculitis-versus multifocal atherosclerosis. Discussed with rheumatology given extensive prior workup for vasculitis which was all negative, determining that patient's presentation is more likely business development representative of multifocal atherosclerosis. Patient stable to discharge back to SNF today but awaiting placement. Notably labs were notable for hypercalcemia-nephrology continuing workup and recommending a ENT consult. Wound care instructions (if applicable) N/A Home Meds Being Held/Why (if any): none Follow-up Tasks (to be completed prior to/for discharge, e.g. labs, imaging, follow-ups): Stroke workup complete needs ENT consult per Nephrology recs for hypercalcemia Nephrology considering SestaMIBI scan Patient is currently in restraints due to pulling at hemodialysis catheter line- would recommend attempting to DC restraints when safe to help facilitate discharge to facility Pt has follow up with vascular neurology in November Your team's Preferred Contact Information for any potential follow up questions: [facility] [id number] Consultants that need to be Informed Prior to Discharge (especially for follow up appointment scheduling, please include any contact info): Nephrology ENT Checklist Items: [x] Patient and/or family notified of potential transfer to [facility] [x] Patient added to [facility] Transfer List [x] Routine labs updated to 2199 [x] Any specialty specific discharge instructions (wound care, weight bearing status, follow up, etc...) have been typed into the After Visit Summary (AVS) Section of the discharge tab AL HUMANE AGENT SUPERVISOR * Kathy Sebastian MD - 09/22/2025 8:22 AM CST [facility] Nephrology Progress Note Brief Hospital Course: Gena Pierre is a 65 year old female w/ PMH significant for ESKD on HD MWF via R-IJ Permcath, hypertension, type 2 diabetes mellitus, right-sided breast cancer, compression fraction of T9 vertebra, thyroid nodule, syncope, uterine mass, 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 The patient presented with confusion, expressive aphasia and chronic left-sided weakness from prior stroke in 2024. In ED, blood pressure was 122/69 mmHg, labs were significant for serum sodium 140 mmol/L, potassium-3.7 mmol/L, CO2-29 mmol/L, BUN-43 mg/dL and creatinine- 9.40 mg/dL. CT head was negative for any evidence of acute hemorrhage, herniation or large territorial infarct. 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 INTERVAL HISTORY: - Patient seen in room. - Got HD session yesterday with UF of 1L without any hypotension. - No acute event over last 24 hours. ASSESSMENT # ESRD on maintenance hemodialysis [facility] -Access: R-IJ Permcath -Last HD on 09/21 -Vpib-rilv-SY3-28 mmol/L -Electrolytes: Na-136 mmol/L, K-4.4 mmol/L -Volume Status: Euvolemic # Chronic kidney disease-mineral and bone disorder (CKD-MBD) -Ca-11.7 mg/dl, P-6.6 mg/dl -Alb-3.5 g/dl -PTH-1836.5 pg/ml -Vitamin D-17.8 ng/ml -On Sensipar 30 mg daily as outpatient # Anemia of chronic kidney disease -Hb-11.4 g/dl-at goal -Ferritin-1497 ng/ml, TSAT-84% -Transfuse if Hb < 7 g/dl -No need for MARCO or iron for now # Hypertension -BP-124/64 mmHg -Home medications: Carvedilol 12.5 mg twice daily -Monitor blood pressure, resume home antihypertensives and advance doses as necessary RECOMMENDATIONS - nephrology rec to work up for Hypercalcemia. - Get Serum protein Electrophoresis, Serum Free Light Chains. - Stop Vitamin D, sestamibi scan. - Started on Cinacalcit 60 mg once daily - get ENT on board for possible 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. - Will follow daily for iHD assessment. - Next HD on 09/23 according to [facility] schedule. Please refer to the initial nephrology consult note for additional information. Hospital Medications: Medications[1] Medications[2] Physical Exam: Vitals: 09/21/25 1858 09/21/25 1916 09/21/25 2033 09/22/25 0039 BP: 91/59 99/64 134/73 124/64 Pulse: 108 106 101 85 Resp: 20 Temp: 98.4 ??F (36.9 ??C) 98.7 ??F (37.1 ??C) 98.5 ??F (36.9 ??C) SpO2: 100% 100% 100% Weight: Height: Intake/Output Summary (Last 24 hours) at 09/22/2025 0822 Last data filed at 09/22/2025 0330 Gross per 24 hour Intake -- Output 1001 ml Net -1001 ml Constitutional: Appearance: Normal appearance. Comments: Drowsy, arousable with verbal stimuli, disoriented Cardiovascular: Rate and Rhythm: Normal rate. Heart sounds: Normal heart sounds. Pulmonary: Effort: Pulmonary effort is normal. Breath sounds: Normal breath sounds. Abdominal: Palpations: Abdomen is soft. Musculoskeletal: Right lower leg: No edema. Left lower leg: No edema. Neurological: Mental Status: She is disoriented. Dialysis access: R-IJ Permcath LABS: Recent Labs Component Name 09/22/2543609/21/2543509/20/25411 NA 136 140 140 140 POTASSIUM 4.4 4.7* 3.7 3.7 CL 97* 96* 95* 95* CO2 28 27 29 29 BUN 24 51* 43* 43* CREATININE 6.87* 11.29* 9.14* 9.14* Recent Labs Component Name 09/22/2543609/21/2543509/20/2541105/13/25 0720 05/12/25 0623 CALCIUM 11.7* 11.0* 10.7* 10.7* 7.7* 7.8* PHOS - - 6.6* 3.2 3.3 Recent Labs Component Name 09/20/2541104/29/25 0115 PTHINTACT 1,836.5* 1,633.6* Recent Labs Component Name 09/22/2543609/20/2541105/13/25 0720 WBC 12.2* 8.8 8.8 7.6 HGB 11.5* 11.4* 11.4* 7.3* Recent Labs Component Name 04/28/25 0940 IRON 99 TIBC 118* FERRITIN 1,497* Kathy Alvarez MD Nephrology Fellow [1] 0.9% NaCl 3 mL Intracatheter q8h aspirin 81 mg Oral QDAY Or aspirin 300 mg Rectal QDAY atorvastatin 80 mg Oral AT BEDTIME carvedilol 25 mg Oral BID WC heparin 5,000 Units Subcutaneous q8h insulin aspart 0-12 Units Subcutaneous TID WC senna-docusate 1 tablet Oral QDAY venlafaxine XR 24hr 150 mg Oral QDAY WITH DINNER vitamin D3 5,000 Units Oral QDAY [2] Cosigned by Sierra Benson MD at 09/22/2025 8:46 PM ANIMAL HUMANE AGENT SUPERVISOR AL HUMANE AGENT SUPERVISOR AL HUMANE AGENT SUPERVISOR AL HUMANE AGENT SUPERVISOR AL HUMANE AGENT SUPERVISOR Associated attestation - Sierra Benson MD - 09/22/2025 8:46 PM ANIMAL HUMANE AGENT SUPERVISOR The patient was seen and examined with the house staff. Please see further details in the house staff note. I have reviewed the house staff note and agree with its contents and plan of care in addition to what I note below: Hypercalcemia could be contributing to mental status changes , however it is mild . Likely tertiary hyperparathyroidism, D/C vit D and initiate Cinacalcit , SestaMIBI scan R/O other causes of hypercalcemia ENT for parathyroidectomy Could mental status changes is paraneoplastic ? * Columba Blanc MD - 09/22/2025 8:18 AM CST Images from the original note were not included. I have seen and examined the patient with the Resident and I agree with the findings and plan of care as documented by the Resident. Please refer to the Resident's note for plans of active problems not discussed in this note. Date of Service: 09/22/2025 Columba Blanc MD, PhD 65F with a hx of ICAD and hx of prior stroke. She has been on ASA and Plavix. Now with new aphasia and infarction on CT and evidence of medium and small vessel beading. Vasculitis workup in 04/2025 was negative. Rheum re-consulted and low concern for vasculitis. Stroke mechanism: ICAD - resume DAPT with switch to ASA + Brillinta - PT/OT/AUTOMOTIVE BRAKE SPECIALIST eval - Dispo pending Problem List History of ischemic right MCA stroke (POA: Yes) ESRD (end stage renal disease) (HCC) (POA: Yes) Primary hypertension (POA: Yes) Type 2 diabetes mellitus with unspecified complications (HCC) (POA: Yes) Secondary hyperparathyroidism (HCC) (POA: Yes) Ischemic stroke (HCC) (POA: Yes) Hx of major depression (POA: Yes) See Resident note for the remaining problem specific plan. 3 MEDICATIONS FOR CURRENT ENCOUNTER: SCHEDULED MEDICATIONS: Or 0.9% NaCl injection 3 mL, Intracatheter, q8h aspirin chew tablet 81 mg, Oral, QDAY aspirin suppository 300 mg, Rectal, QDAY atorvastatin (Lipitor) tablet 80 mg, Oral, AT BEDTIME carvedilol (Coreg) tablet 25 mg, Oral, BID WC heparin injection 5,000 Units, Subcutaneous, q8h insulin aspart (NovoLOG) pen 0-12 Units, Subcutaneous, TID WC senna-docusate (Senokot-S) tablet 1 tablet, Oral, QDAY venlafaxine XR 24hr (Effexor XR) capsule 150 mg, Oral, QDAY WITH DINNER vitamin D3 (Cholecalciferol) tablet 5,000 Units, Oral, QDAY CONTINUOUS MEDICATIONS: PRN MEDICATIONS: Or Or Or 0.9% NaCl injection 1-10 mL, Intracatheter, PRN acetaminophen (Tylenol) tablet 650 mg, Oral, q6h PRN dextrose IV 12.5 g, Intravenous, PRN dextrose IV 25 g, Intravenous, PRN glucose (Diabetic Use) oral gel, Oral, PRN hydrALAZINE (Apresoline) injection 10 mg, Intravenous, q20 min PRN labetalol (Normodyne; Trandate) injection 10 mg, Intravenous, q15 min PRN ondansetron (disintegrating) (Zofran ODT) tablet 4 mg, Oral, q6h PRN ondansetron (Zofran) injection 4 mg, Intravenous, q6h PRN polyethylene glycol 3350 (Miralax) packet 17 g, Oral, QDAY PRN Patient Vitals for the past 24 hrs: Temp Pulse Resp BP 09/22/25 0039 98.5 ??F (36.9 ??C) 85 -- 124/64 09/21/25 2033 98.7 ??F (37.1 ??C) 101 -- 134/73 09/21/25 1916 98.4 ??F (36.9 ??C) 106 20 99/64 09/21/25 1858 -- 108 -- 91/59 09/21/25 184 -- (!) 112 -- 95/63 09/21/25 1828 -- 108 -- 96/69 09/21/25 181 -- (!) 112 -- 100/69 09/21/25 1758 -- (!) 115 -- 105/71 09/21/25 1743 -- (!) 110 -- 109/70 09/21/25 1728 -- (!) 111 -- 92/70 09/21/25 1713 -- (!) 115 -- 112/79 09/21/25 1658 -- (!) 112 -- 113/76 09/21/25 1649 -- (!) 113 -- 110/75 09/21/25 1643 -- (!) 112 -- 87/73 09/21/25 1628 -- (!) 114 -- 104/71 09/21/25 1613 -- 106 -- 138/90 09/21/25 1558 -- 103 -- 133/77 09/21/25 1543 -- 94 -- 141/75 09/21/25 1516 98.4 ??F (36.9 ??C) 96 -- 149/77 Recent Labs Component Name 09/22/25 0437 09/21/25 0436 09/20/25 0412 05/13/25 0720 05/12/25 0623 NA 136 140 140 140 131* 128* CL 97* 96* 95* 95* 98 94* CO2 28 27 29 29 24 29 BUN 24 51* 43* 43* 26 16 CREATININE 6.87* 11.29* 9.14* 9.14* 7.05* 5.41* CALCIUM 11.7* 11.0* 10.7* 10.7* 7.7* 7.8* PHOS - - 6.6* 3.2 3.3 Recent Labs Component Name 09/22/2543609/20/2541105/13/25 0720 WBC 12.2* 8.8 8.8 7.6 RBC 4.05 4.01 4.01 2.51* HGB 11.5* 11.4* 11.4* 7.3* HCT 36.1 35.5 35.5 22.6* Recent Labs Component Name 09/20/25411 CHOL 232* TRIG 95 HDL 65 LDLCALC 148* Recent Labs Component Name 09/20/2541104/29/25 0115 HGBA1C 5.0 4.5 EAG 97 82 Recent Labs Component Name 09/22/2543609/20/2541105/13/25 0720 PLTCOUNT 349 [id number] AL HUMANE AGENT SUPERVISOR AL HUMANE AGENT SUPERVISOR * Kimberley Mukherjee MD - 09/22/2025 7:28 AM CST Images from the original note were not included. [facility] Stroke Progress Note Gena Pierre Age: [age] year old Date of : 1960 Date of Admission: 09/19/2025 Hospital Day: 3 Admission history and Hospital course: Gena Pierre is a 65 year old female with past medical history of CVA, DM2, ESRD on HD, hyperparathyroidism who presents to the ED for the above. Patient unable to provide any history. When asked hername probably later. RN reports patient has been waxing and waning in her ability to communicate,she was able to state her name and when she does dialysis. This has been goingon since 08/31 when she had a UTI. RN is questioning whether patient is altered vs uncooperative. Family at bedside earlier reportedly state patient A&O x 4 a week ago. Family and patient reporting in ED dislike toward current rehab facility and do not want to go back there. head without contrast did not show any intracranial bleed. EEG has been normal at OSH. MRI shows a small focus of left frontal lobe subcortical infarct. Echo done in April had shown normal EF, without any evidence of PFO, or left atrial thrombus. Loop recorder in place. MRA showing patchy multifocal stenosis -possibly secondary to atherosclerosis versus vasculitis versus vasospasm. DSA was performed and was concerning for possible QUALITY MANAGEMENT NURSE vasculitis- versus multifocal atherosclerosis. Discussed with rheumatology given extensive prior workup for vasculitis which was all negative, determining that patient's presentation is more likely business development representative of multifocal atherosclerosis. Patient stable to discharge back to SNF today but awaiting placement. Subjective (today) Overnight: NGT placement, pulled out and replaced, now in soft restraints and mittens. Patient remained afebrile (Tm Temp (24hrs), Av.2 ??F (36.8 ??C), Min:97 ??F (36.1 ??C), Max:98.7 ??F (37.1 ??C) ) with blood pressures ranging from Systolic (24hrs), Av , Min:87 , Max:169 Nurse concern: None Objective Intake & Output Intake/Output Summary (Last 24 hours) at 09/22/2025 0728 Last data filed at 09/22/2025 0330 Gross per 24 hour Intake -- Output 1001 ml Net -1001 ml last BM: Exam: General Appearance: Laying in bed, in not acute distress. Mental status: Awake, A&Ox0 Language: Severe aphasia, not responding to questions, intermittently responds to commands such as wiggling her toes or squeezing her fingers Speech: Unable to assess Visual rodriguez: CN II: visual rodriguez grossly intact Neglect: No visual or tactile neglect noted CN 3 - 12:CN III, IV, : PERRLA, EOMI CN V: Responds to touch of V1-3,CN VII: Facial movements symmetric and Notable for left UMN Weakness,Hearing grossly intact to voice, CN IX, X: Pallet elevates symmetrically, CN XI: head turn and shoulder shrug intact based on observation,CN XII: Tongue midline without fasciculations or atrophy and Unable to examine Motor: No tone or movement abnormalities noted Objective strength: Unable to follow commands, moving all extremities to gravity without issue. Muscle Stretch Reflexes BI TRI BR PAT ACH TOES Right 2+ 2+ 2+ 2+ 2+ Down Left 2+ 2+ 2+ 2+ 2+ Down Sensory Responds to light touch in all extremities. Cerebellar Unable to Assess Gait Deferred Investigations Objective Last NIH NIH Total: 12 (09/22/2025 7:16 AM) Assessment Interval: Shift (09/22/2025 7:16 AM) Level of Consciousness: 0 (09/22/2025 7:16 AM) LOC: Questions (Month and Age): 2 (09/22/2025 7:16 AM) LOC: Commands (opens/closes, eyes/fists): 1 (09/22/2025 7:16 AM) Best Gaze: 0 (09/22/2025 7:16 AM) Visual: 0 (09/22/2025 7:16 AM) Facial Palsy: 0 (09/22/2025 7:16 AM) Motor Arm Function - Right: 0 (09/22/2025 7:16 AM) Motor Arm Function - Left: 0 (09/22/2025 7:16 AM) Motor Leg - Right: 1 (09/22/2025 7:16 AM) Motor Leg - Left: 1 (09/22/2025 7:16 AM) Limb Ataxia: 2 (09/22/2025 7:16 AM) Sensory: 1 (09/22/2025 7:16 AM) Best Language: 2 (09/22/2025 7:16 AM) Dysarthria: 2 (09/22/2025 7:16 AM) Extinction and Inattention: 0 (09/22/2025 7:16 AM) Ancillary tests: Brain Imaging: CT Head CT HEAD WO CONTRAST 09/19/2025 Narrative PROCEDURE: CT HEAD WO CONTRAST, DATE/TIME OF EXAM: 09/19/2025 11:52 PM, LOCATION [facility] INDICATION: I63.9: Ischemic stroke (HCC) G93.40: Acute encephalopathy ADDITIONAL CLINICAL INFORMATION: Ordering Provider Reason For Exam: cva Technologist Note: Additional: TECHNIQUE: CT of the head was performed without contrast according to standard protocol. COMPARISON: CT head 04/30/2025 FINDINGS: No acute intracranial hemorrhage or intra- or extra-axial fluid collections are identified. There is mild cerebral volume loss with associated ex vacuo ventricular dilatation. The basal cisterns are patent. No mass effect or midline shift is seen. Chronic infarct in the right ELECTRIC RANGE SERVICER territory. Additional encephalomalacia in the left shin radiata appears new since 04/30/2025. The roy-white matter differentiation otherwise appears normal. Periventricular white matter hypoattenuation is a nonspecific finding that may be indicative of chronic small vessel ischemic disease. There is atherosclerotic calcification of the carotid siphons. The visualized portions of the orbits, paranasal sinuses, and mastoids appear normal. No acute calvarial fracture is identified. Impression : 1.No CT evidence of acute hemorrhage, herniation, or large territorial infarct. 2.Please note CT is insensitive to small infarcts particularly in the posterior fossa, if there is continued clinical concern MRI can be obtained. 3.Encephalomalacia in the left shin radiata is new new since 04/30/2025. 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 > Dictated by Alberto David MD, (cardiac cath lab radiology technologist). > Dictated by Alberto David MD 09/19/2025 11:56 PM > Dictated by Special Education Tutor I, Tra Russell MD have personally reviewed and interpreted this examination/study. > Interpreting Provider: Tra Russell MD on 09/20/2025 12:[address] HEAD WO CONTRAST 09/17 FINDINGS: Periventricular and subcortical white matter hypodensities are seen, which likely represent sequelae of chronic microvascular change. Chronic infarct/encephalomalacia in the right parietal lobe. Chronic infarct/encephalomalacia in the left frontal lobe. No acute intracranial hemorrhage or CT evidence of acute-subacute, large territory infarct. There is no evidence of hydrocephalus, extraaxial fluid collection, mass effect or midline shift. There is no acute displaced calvarial fracture. Right maxillary sinus mucosal thickening, otherwise visualized paranasal sinuses and mastoid air cells are clear. MRI Angio, Brain/Neck 09/19/2025 IMPRESSION: 1. 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 The superior aspect of the left intracranial vertebral artery also appears occluded. 2. Nonvisualization of an anterior left MCA M2 branch as well as attenuated appearance of the remaining left MCA vasculature beyond the M1-M2 bifurcation. 3. Given impression 1 and 2 above, interventional neurology consultation is recommended. 4. Moderate focal stenosis of the right intracranial vertebral artery. 5. No high-grade stenosis or proximal vessel occlusion in the neck. MRI Brain MRI Brain Wo Contrast 09/18/2025 Narrative [facility] [address], [place] [address] Examination: MRI BRAIN WO CON, 09/18/2025 7:41 AM. Technique: Multiplanar multisequence magnetic resonance images of the brain were obtained without intravenous contrast. Clinical history: AMS, hx CVA Comparison: CT head 09/17/2025 Findings: There is focal ovoid restricted diffusion within the subcortical white matter of the left frontal lobe that may be represent an acute infarct. Suggestion of some cortical sparing which is somewhat atypical, therefore recommend MRI brain exam with contrast follow-up in 4-6 weeks unless symptoms warrant sooner characterization. Curvilinear susceptibility along the cortical margin of the right parietal convexity as evidence for cortical laminar necrosis. Scattered subcortical and periventricular white matter T2 FLAIR hyperintensities that are nonspecific but most commonly seen in setting of chronic small vessel ischemic change. Sellar, callosal, pineal, and craniovertebral junction regions appear within normal limits. There is no extra-axial collection. Basal cisterns appear normal. The proximal intracranial arterial flow voids have a normal appearance. Orbital contents appear normal. Paranasal sinuses are well aerated. Trace left mastoid air cell fluid. The right mastoid air cells are well aerated. Impression IMPRESSION: 1. Focal ovoid restricted diffusion within the subcortical white matter of the left frontal lobe that may represent an acute infarct. Suggestion of some cortical sparing which is somewhat atypical, therefore recommend MRI brain exam with contrast follow-up in 4-6 weeks unless symptoms warrant sooner characterization. 2. Mild chronic small vessel ischemic change. 3. 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 Ordered By: DALJIT VELAZCO Interpreted By: Jarod Vega MD, 09/18/2025 9:02 AM Findings delivered to Dr. Esquivel via [employer] secure messaging at the time of dictation. Cerebral Angiogram DATE/TIME OF EXAM: 09/20/2025 10:00 AM Procedure: Diagnostic Catheter Cerebral Angiogram Findings: - Left Vertebral artery It reveals a distal V2 - V3 segments with normal course and caliber. The V4 segment has a proximal segment with normal course and caliber, but there is visualization of alternating areas of severe stenosis in distal segment of V4 segment. The left vertebral artery ends in PICA which also has alternating areas of moderate stenosis in its proximal segments, the distal segments have a normal course and caliber. - Left Internal Carotid Artery It reveals a normal course and caliber of the intracranial segments. There is visualization of a prominent caliber posterior communicating artery suggestive of a ELECTRIC RANGE SERVICER variant. The middle cerebral artery has a diffuse decrease caliber of its horizontal segment causing moderate stenosis, the superior and inferior division have some there is visualization of alternating areas of moderate and severe stenosis following a beading pattern. The anterior cerebral artery has a diffuse decrease caliber of its A1 segment causing moderate stenosis. Cortical branches of the A2 segments such as frontopolar, pericallosal, callosomarginal have alternating areas of moderate and severe stenosis following a beading pattern. The venous phase shows a normal drainage. - Left External Carotid Artery, cerebral angiogram. It reveals a normal course and caliber of the distal branches of middle meningeal artery, occipital and superficial temporal artery. - Right Internal Carotid Artery. It reveals a normal course and caliber of the intracranial segments. There is visualization of a prominent caliber posterior communicating artery suggestive of a ELECTRIC RANGE SERVICER variant. The middle cerebral artery has a normal course and caliber, the rest of the segments have alternating areas of moderate stenosis following a beading pattern. The anterior cerebral artery has a normal course and caliber of its A1 segment, the rest of its segments have alternating areas of moderate and severe stenosis following a beading pattern. The venous phase shows a normal drainage. - Right External Carotid Artery. It reveals a normal course and caliber of the distal branches of middle meningeal artery, occipital and superficial temporal artery. -Right Vertebral artery. It reveals a V4 segment with a distal moderate stenosis. There is not further visualization of the vertebrobasilar junction or basilar artery due due to contrast washout however we cant rule out severe stenosis or occlusion as a selective angiogram of the right vertebra; artery was ot performed. Impression: - Multiple alternating areas of moderate to severe stenosis affecting anterior and posterior circulation following a beading pattern. This could represent severe intracranial atherosclerosis or QUALITY MANAGEMENT NURSE vasculitis, recommend clinical correlation. Cardiac: TTE/RADHA LVEF < 30%: []Yes [x]No (Value:60-65%) Akinesia or Hypokinesia: []Yes [x]No Patent Foramen [place]: []Yes [x]No Comments: ECHO RADHA COMPLETE 05/10/2025 Narrative Summary * Left ventricular systolic function is normal with an estimated ejection fraction of 60-65% by visual estimate. * Intact interatrial septum visualized by 2D and color Doppler imaging. * Agitated saline contrast study at rest and with Valsalva is negative for a shunt. * The left atrial appendage is normal in shape with normal velocity, and there is no thrombus. Patient Info Name: Gena Pierre Age: 64 years : 1960 Gender: Female Ht: 66 in Wt: 200 lb BSA: 2.09 m2 HR: 112 bpm BP: 136 / 79 mmHg Heart Rhythm: Tachycardia Exam Date: 05/10/2025 9:20 AM Patient Status: I/P Study Site: [facility] Primary Location: [facility] EStudy Info Technical Quality: Adequate Exam Type: ECHO RADHA COMPLETE Indications R55 - Syncope with abnormal neurologic examination R29.90 - Syncope with abnormal neurologic examination Contrast/Agitated Saline Contrast / Saline: Agitated Saline Amount: 10.00 ml Reaction to Contrast: no * A transesophageal echocardiogram is performed. Staff Referring Physician: Chintan Caro Ordering Provider: Chintan Caro Attending Physician: Chintan Caro Fellow: Mary Graham Mammography Tech: Rachel Jordan Performing Physician: Maryann Roa MD Mammography Tech: Mary Graham Complications * There were no complications prior to, during or in recovery from the transesophageal echocardiogram. Medications * The posterior pharynx was sprayed with Cetacaine spray and the patient was administered viscous Xylocaine 2% by mouth. * The patient was premedicated with 3.00 mg intravenous Versed. * The patient was premedicated with 75.00 mcg intravenous Fentanyl. Procedure Details The patient arrived in a fasting state after obtaining informed consent. The transesophageal probe was passed without difficulty into the posterior pharynx, mid-esophagus, distal esophagus, and gastric fundus. Imaging was performed at multiple levels. The patient tolerated the procedure well and there were no complications. The patient was transferred out of the examination area in satisfactory condition. Left Ventricle The left ventricle is normal in size. Left ventricular systolic function is normal with an estimated ejection fraction of 60-65% by visual estimate. Right Ventricle Right ventricular chamber dimension is normal in size. Right ventricular systolic function is normal. Ventricular Septum Intact interventricular septum visualized by 2D and color Doppler and agitated saline imaging. Left Atrium The left atrium is normal in size. There is no thrombus visualized in the left atrium. Right Atrium The right atrium is normal in size. An infusion catheter is seen in the right atrium. Atrial Septum Intact interatrial septum visualized by 2D and color Doppler imaging. Agitated saline contrast study at rest and with Valsalva is negative for a shunt. Atrial Appendage The left atrial appendage is normal in shape with normal velocity, and there is no thrombus. Aortic Valve The aortic valve is trileaflet. There is no aortic valve regurgitation. There is no aortic valve stenosis. Mitral Valve Mitral valve is structurally and functionally normal to two-dimensional, color flow Doppler and Doppler interrogation. There is mild mitral valve regurgitation. Tricuspid Valve The tricuspid valve is structurally and functionally normal by two-dimensional, color flow Doppler and Doppler interrogation. There is no tricuspid valve regurgitation. Pulmonary Veins Pulmonary veins are normal by two-dimensional and color flow imaging. Doppler velocity profiles are normal indicating no obstruction of flow, normal left-sided filling pressures. Aorta Minimal plaque in the ascending aorta, aortic arch and descending aorta. Report Signatures Finalized by Maryann Roa MD on 05/10/2025 05:18 PM Reviewed by Fellow Mary Graham on 05/10/2025 04:43 PM Lumbar Puncture Latest Reference Range & Units 05/07/25 12:06 Tube Number TUBE 4 Color CSF COLORLESS Appearance CSF CLEAR Nucleated Cells CSF <=5 x10E6/L 4 RBC CSF 0 - 5 x10E6/L 614 (H) Xanthochromia CSF ABSENT ABSENT Glucose,CSF-STAT 40 - 70 mg/dL 43 Albumin CSF 8.4 - 34.2 mg/dL 14.2 Kiyst-2-Upcsondh CSF 0.0 - 5.4 mg/dL 2.4 Beta-Globulin CSF 0.0 - 8.1 mg/dL 3.1 Gamma Globulin CSF 0.0 - 5.4 mg/dL 2.1 Alpha-1 Globulin CSF 0.0 - 3.1 mg/dL 1.3 Angiotensin-Converting Enzyme CSF 0.0 - 2.5 U/L 0.6 IgA CSF 0.0 - 0.7 mg/dL 0.2 Prealbumin CSF 0.0 - 3.1 mg/dL 1.1 Cryptococcus Antigen CSF Negative Negative Protein CSF 15.0 - 45.0 mg/dL 15 - 45 mg/dL 24.2 35 (H): Data is abnormally high Rheumatology Labs Latest Reference Range & Units 05/01/25 00:32 05/07/25 12:06 LEX IgG None Detected None Detected Myelin Basic Protein 0.00 - 5.50 ng/mL 55.00 (H) ANCA Pattern None Detected None Detected ANCA Titer <1:20 <1:20 Myeloperoxidase Antibody 0 - 19 AU/mL 0 Rheumatoid Factor Screen Negative Negative Rheumatoid Factor <30 IU/mL <15 Serine Proteinase 3 IgG 0 - 19 AU/mL 0 (H): Data is abnormally high 09/21-CRP slightly elevated at 0.8 EKG (has Loop Recorder) Date: N/A Sinusal: []Yes [x]No Atrial Fibrillation: []Yes [x]No Telemetry Atrial Fibrillation: []Yes [x]No Labs: Lipid Profile Home Statin use: [x]Yes []No Recent Labs Component Name 09/20/25 0412 CHOL 232* HDL 65 LDLCALC 148* TRIG 95 Endocrinology: T2DM previously diagnosed? [x]Yes []No Wireless Glucose WB/POC (mg/dL) Date/Time Value 09/21/2025 08:34 PM 117 (H) 09/21/2025 12:23 PM 103 (H) 09/21/2025 07:46 AM 98 Recent Labs Component Name 09/20/25 0412 04/29/25 0115 HGBA1C 5.0 4.5 Cardiac Enzymes Recent Labs Component Name 09/20/25 0542 09/20/25 0412 TROPIHS 13 13 Recent Labs Component Name 09/20/25 0542 09/20/25 0412 TROPIHS 13 13 Troponin Curve: []Yes [x]No Assessment Gena Pierre is a 65 year old female presenting for confusion, expressive aphasia, chronic left sided weakness from prior stroke in 2024. She has severe intracranial atherosclerosis. She is on DAPT. ESRD on dialysis. CT head without contrast did not show any intracranial bleed. EEG has been normal at OSH. MRI shows a small focus of left frontal lobe subcortical infarct. Echo done in April had shown normal EF, without any evidence of PFO, or left atrial thrombus. Loop recorder in place. MRA showing patchy multifocal stenosis -possibly secondary to atherosclerosis versus vasculitis versus vasospasm. DSA showing alternating areas of severe stenosis in anterior and posterior circulation following a beading pattern-which could be due to vasculitis versus multifocal or atherosclerosis. Discussedwith rheumatology today, given patient's extensive prior workup including prior LP-and comorbid medical conditions including diabetes, hypertension and end-stage renal disease-multifocal atherosclerosis is far more likely than vasculitis, and thus repeat LP is not needed to rule out QUALITY MANAGEMENT NURSE vasculitis. Stroke Type: Ischemic Stroke Mechanism: Large Artery/flow failure vs Vasculitis Plan Plan: Further workup : Workup complete Secondary stroke prevention: Aspirin 81mg Start Brilinta 90 mg Hyperlipidemia: Atorvastatin 80 mg (increased from home 40 mg) (LDL = 148) SBP goal (short term): < 220 To be achieved with: Labetalol 10 mg IV PRN (HR>70), Hydralazine 10 mg IV PRN (HR<70) SBP goal (alf): <120 +/- 10 To be achieved with: Home Coreg 25 mg DVT PPX: Heparin Recovery Plan: Swallow Evaluation/Diet: DIET CARDIAC PT/OT evaluation:PT Discharge Recommendations Recommended Transportation Method: Stretcher/Ambulance PT Discharge Recommendations: Patient would benefit from multidisciplinary therapy Placement: Pending discharge to SNF-family declining returning back to previous patient's previous senior living facility as a did not think it was a good fit for patient, and are hoping to find a new facility -pending social work assistance Checklist: Code Code Status: NO CPR(DNR) NO INTUBATION Access Hemodialysis catheter Bowel Regimen Miralax PRN, Sennakot daily Specialities involved Stroke, Nephrology, Rheumatology Patient/Family updated Cousin and POA updated by phone Additional Hospital Problems: History of ischemic right MCA stroke Present on Admission: Yes Ischemic stroke (HCC) Present on Admission: Yes Primary hypertension Present on Admission: Yes -see above ESRD (end stage renal disease) (HCC) Present on Admission: Yes Secondary hyperparathyroidism (HCC) Present on Admission: Yes ESRD on HD - hemodialysis catheter placement confirmed with CXR 09/20 - dialysis schedule MWF - last dialysis 09/21 Hyperparathyroidism - Vitamin D low (19.9) -DC'd vitamin D supplementation per nephrology due to hypercalcemia, nephrology recommending SestaMIBI scan -Started on send Salit 60 mg daily -Recommending ENT consult for possible 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 Type 2 diabetes mellitus with unspecified complications (HCC) Present on Admission: Yes On SSI Hx of major depression Present on Admission: Yes -Continue home venlafaxine Hospital course and plan was discussed with patient /family. Patient seen and discussed with Attending Physician, Dr. Blanc Written in collaboration with Nasreen Avendano, MS3 [facility] This note was dictated using speech recognition software. Minor errors in micro photographer may be present. Please notify if questions arise. Kimberley Mukherjee MD Neurology Resident 09/22/2025 Cosigned by Columba Blanc MD at 09/23/2025 2:38 PM ANIMAL HUMANE AGENT SUPERVISOR AL HUMANE AGENT SUPERVISOR AL HUMANE AGENT SUPERVISOR * Brooke Hong RN - 09/21/2025 7:30 PM CST Post-HD Treatment Note: Hemodialysis Progress Note TX Duration: 3 hours.5 minutes Status of Access: heparin locked Status of Dressing: clean, dry and intact Total UF volume Removed: 1L UF Goal Met: yes Patient tolerance to TX: well Medications administered: none Patient Orientation: x0 Treatment Complications: patient pulled off CVC dressing twice. Had to end treatment with 25 minutes left due to constant TMP alarms, able to return blood Labs Drawn: no Post-tx vitals: T: 98.4 P: 106 R: 20 BP:99/64 SpO2: 100 Time Report given: 1934 Report given to: Miller DUGGAN AL HUMANE AGENT SUPERVISOR * Sasha Villalba RN - 09/21/2025 4:26 PM CST Patient pulled out IV and tried to pull out dialysis line. New dressing placed and IV site bandaged. Patient placed in Bilateral mitts and wrist. Patient did not arrive to in restraints. URBAN Baez AL HUMANE AGENT SUPERVISOR * Sasha Villalba RN - 09/21/2025 3:33 PM CST REPORT BEFORE DIALYSIS Diagnosis (SAEID/CKF): CKF Non-Renal Diagnosis: Ischemic Stroke Isolation:No active isolations Does patient have signs or symptoms of respiratory infection (fever, cough, shortness of breath): No Allergies:Allergies[1] Code Status:NO CPR(DNR) NO INTUBATION Orientation Status: A&O x0 On telemetry/Rhythm: Oxygen: room air Given any medications: See MAR Need for pain medications: See MAR Blood pressure issues: No On any drips: No Is patient diabetic: Yes Any labs to draw: No Any other procedures today: No Any concerns about this patient: No Any medications to be given with dialysis: no Due date of next Central Line Dressing change: 09/28/25 Primary RN: URBAN Moeller [1] Allergies Allergen Reactions Lactose GI Discomfort AL HUMANE AGENT SUPERVISOR * Sunni Robles RN - 09/21/2025 10:54 AM CST Present in room to find patients NG tube removed and L mitten lying in the bed. Stroke team notified and awaiting orders. AL HUMANE AGENT SUPERVISOR * Aditi Chan SLP - 09/21/2025 9:22 AM CST [facility] Bedside Swallow Assessment Patient: Gena Pierre Med Record Number: [id number] Date of : 1960 Age: [age] year old Problem List[1] Past Medical History[2] In addition to the 1:1 evaluation of the patient, additional eval time was spent completing the chart review prior to the assessment, completing the multidisciplinary plan of care and education plan post evaluation and communicating results of the eval to other treatment team members. PPE: PPE worn by staff: gloves Impressions: Pt accepted trials of ice chips, purees by spoon, cracker and water with small cough following one sip of thin liquids. All other trials were without overt s/s aspiration. Recommend pt advance to a regular consistency diet w/ strict adherence to swallow guidelines. ST will continue to monitor pt's tolerance for recommended diet. ST also to follow-up for further cognitive-communication assessment given acute deficits. Recommendations: Diet Liquids Recommendation: Thin/ Thin (0) Diet Solids Recommendation: Regular/Regular (7) Recommended Form of Meds: As Tolerated Compensatory Swallowing Strategies: 90 Degrees elevation for all oral intake Recommended Tests/Consults: None Discharge Recommendations: TBD pending medical status Speech therapy is recommended for further assessment of speech/language/cognition. SUBJECTIVE: What matters most to this patient?: No goals stated Pain Assessment: Pain Assessment Pain Scale/Observation: 0-10 Pain Rating Score #1: 0 OBJECTIVE: Level of Consciousness: alert Orientation Level: disoriented x 4 Positioning: Upright in bed R UE soft mitt, L UE soft mitt, R UE soft wrist restraint, and L UE soft wrist restraint in place Respiratory Status: Room air Oral/Motor: Dentition: Normal Oral Hygiene : Within Functional Limits Labial/Facial: Within Functional Limits Vocal Quality: Within Functional Limits Oral Motor Coordination: Impaired (Pt does not follow commands for assessment) Controls Secretions: Yes Swallow Trials: Ice chips: Presentation: Spoon-Assisted Oral: Within Functional Limits Pharyngeal: Within Functional LImits; Apparently strong and timely laryngeal elevation Thin Liquid: Presentation: Straw-Assisted Oral: Within Functional Limits Pharyngeal: (Prompt dry cough X1) Puree: Presentation: Spoon-Assisted Oral: Within Functional Limits Pharyngeal: Within Functional LImits; Apparently strong and timely laryngeal elevation Solid: Presentation: Assisted Oral: Within Normal Limits Pharyngeal: Within Functional Limits; Apparently strong and timely laryngeal elevation Assessment: Risk For Aspiration: Mild Primary Diagnostic Impression - Oral: No dysphagia Primary Diagnostic Impression - Pharyngeal: Mild (vs functional swallow overall) Education/Interventions: While performing AUTOMOTIVE BRAKE SPECIALIST, Patient instructed in: results of swallow evaluation, goals of treatment , and diet/liquid recommendations. Patient demonstrated Questionable understanding of instructions given. Physician and Nurse contacted regarding results of swallow evaluation and recommendations. Guidelines were posted on Pt's whiteboard and head of bed: n/a INFORMED CONSENT TO TREATMENT: Plan of care including recommended therapy, goals and frequency, discussed with patient who understands and agrees to proceed. Short Term Goals Patient will tolerate recommended food and liquid consistencies without clinical signs of aspiration. Senior Care Goal (s): Patient to discharge to appropriate next level of inpatient care. Plan: Dysphagia tx, cognitive-communication assessment as indicated 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) ESRD (end stage renal disease) (HCC) Primary hypertension Type 2 diabetes mellitus with unspecified complications (HCC) Hypocalcemia Syncope with abnormal neurologic examination Vaginal bleeding Uterine mass Cerebrovascular accident (CVA) due to embolism of right middle cerebral artery (HCC) Acute ischemic left MCA stroke (HCC) Secondary hyperparathyroidism (HCC) Ischemic stroke (HCC) Hx of major depression [2] Past Medical History: Diagnosis Date Acute renal failure Anemia CKD (chronic kidney disease) DM (diabetes mellitus), type 2 (HCC) HTN (hypertension) AL HUMANE AGENT SUPERVISOR * Columba Blanc MD - 09/21/2025 8:49 AM CST Images from the original note were not included. I have seen and examined the patient with the Resident and I agree with the findings and plan of care as documented by the Resident. Please refer to the Resident's note for plans of active problems not discussed in this note. Date of Service: 09/21/2025 Columba Blanc MD, PhD 65F with a hx of ICAD and hx of prior stroke. She has been on asa/clopidogrel. Now with new aphasiaand infarction on CT and evidence of medium and small vessel beading. Rheum consulted. - pending LP - if CSF testing is unrevealing will resume DAPT with switch to Brillinta - PT/OT/AUTOMOTIVE BRAKE SPECIALIST eval Problem List History of ischemic right MCA stroke (POA: Yes) ESRD (end stage renal disease) (HCC) (POA: Yes) Primary hypertension (POA: Yes) Type 2 diabetes mellitus with unspecified complications (HCC) (POA: Yes) Secondary hyperparathyroidism (HCC) (POA: Yes) Ischemic stroke (HCC) (POA: Yes) Hx of major depression (POA: Yes) See Resident note for the remaining problem specific plan. 2 MEDICATIONS FOR CURRENT ENCOUNTER: SCHEDULED MEDICATIONS: Or 0.9% NaCl injection 3 mL, Intracatheter, q8h aspirin chew tablet 81 mg, Enteral Tube, QDAY aspirin suppository 300 mg, Rectal, QDAY atorvastatin (Lipitor) tablet 80 mg, Enteral Tube, AT BEDTIME carvedilol (Coreg) tablet 12.5 mg, Enteral Tube, BID WC heparin injection 5,000 Units, Subcutaneous, q8h insulin aspart (NovoLOG) pen 0-12 Units, Subcutaneous, TID WC senna-docusate (Senokot-S) tablet 1 tablet, Enteral Tube, QDAY venlafaxine XR 24hr (Effexor XR) capsule 150 mg, Oral, QDAY WITH DINNER CONTINUOUS MEDICATIONS: PRN MEDICATIONS: Or Or Or 0.9% NaCl injection 1-10 mL, Intracatheter, PRN acetaminophen (Tylenol) tablet 650 mg, Oral, q6h PRN dextrose IV 12.5 g, Intravenous, PRN dextrose IV 25 g, Intravenous, PRN glucose (Diabetic Use) oral gel, Oral, PRN hydrALAZINE (Apresoline) injection 10 mg, Intravenous, q20 min PRN labetalol (Normodyne; Trandate) injection 10 mg, Intravenous, q15 min PRN ondansetron (disintegrating) (Zofran ODT) tablet 4 mg, Oral, q6h PRN ondansetron (Zofran) injection 4 mg, Intravenous, q6h PRN polyethylene glycol 3350 (Miralax) packet 17 g, Oral, QDAY PRN Patient Vitals for the past 24 hrs: Temp Pulse Resp BP 09/21/25 0749 97 ??F (36.1 ??C) 89 -- 169/80 09/21/25 0415 97.8 ??F (36.6 ??C) 85 19 143/72 09/21/25 0011 97.4 ??F (36.3 ??C) 89 19 138/73 09/20/25 1957 98 ??F (36.7 ??C) 71 19 139/73 09/20/25 1554 97.8 ??F (36.6 ??C) 74 18 139/74 09/20/25 1300 -- 75 16 132/69 09/20/25 1230 -- 77 12 139/76 09/20/25 1215 -- 74 15 170/76 09/20/25 1200 -- 78 14 144/71 09/20/25 1145 -- 81 12 143/70 09/20/25 1130 98 ??F (36.7 ??C) 80 17 143/74 09/20/25 1050 -- -- 18 -- 09/20/25 1045 -- -- 15 -- 09/20/25 1035 -- -- 14 -- 09/20/25 1030 -- -- 18 -- 09/20/25 1029 -- -- 14 -- 09/20/25 1020 -- -- 18 -- 09/20/25 1015 -- -- 19 -- Recent Labs Component Name 09/21/25 0436 09/20/25 0412 05/13/25 0720 05/12/25 0623 NA 140 140 140 131* 128* CL 96* 95* 95* 98 94* CO2 27 29 29 24 29 BUN 51* 43* 43* 26 16 CREATININE 11.29* 9.14* 9.14* 7.05* 5.41* CALCIUM 11.0* 10.7* 10.7* 7.7* 7.8* PHOS - 6.6* 3.2 3.3 Recent Labs Component Name 09/20/25 0412 05/13/25 0720 05/12/25 0623 WBC 8.8 8.8 7.6 7.4 RBC 4.01 4.01 2.51* 2.47* HGB 11.4* 11.4* 7.3* 7.3* HCT 35.5 35.5 22.6* 22.8* Recent Labs Component Name 09/20/25 041 CHOL 232* TRIG 95 HDL 65 LDLCALC 148* Recent Labs Component Name 09/20/25 0412 04/29/25 0115 HGBA1C 5.0 4.5 EAG 97 82 Recent Labs Component Name 09/20/25 0412 05/13/25 0720 05/12/25 0623 PLTCOUNT [id number] AL HUMANE AGENT SUPERVISOR AL HUMANE AGENT SUPERVISOR * Kimberley Mukherjee MD - 09/21/2025 8:33 AM CST Images from the original note were not included. [facility] Stroke Progress Note Gena Pierre Age: [age] year old Date of : 1960 Date of Admission: 09/19/2025 Hospital Day: 2 Admission history and Hospital course: Gena Pierre is a 65 year old female with past medical history of CVA, DM2, ESRD on HD, hyperparathyroidism who presents to the ED for the above. Patient unable to provide any history. When asked hername probably later. RN reports patient has been waxing and waning in her ability to communicate,she was able to state her name and when she does dialysis. This has been goingon since 08/31 when she had a UTI. RN is questioning whether patient is altered vs uncooperative. Family at bedside earlier reportedly state patient A&O x 4 a week ago. Family and patient reporting in ED dislike toward current rehab facility and do not want to go back there. head without contrast did not show any intracranial bleed. EEG has been normal at OSH. MRI shows a small focus of left frontal lobe subcortical infarct. Echo done in April had shown normal EF, without any evidence of PFO, or left atrial thrombus. Loop recorder in place. MRA showing patchy multifocal stenosis -possibly secondary to atherosclerosis versus vasculitis versus vasospasm. DSA was performed and was concerning for possible QUALITY MANAGEMENT NURSE vasculitis- pending upcomming LP. Subjective (today) Overnight: NGT placement, pulled out and replaced, now in soft restraints and mittens. Patient remained afebrile (Tm Temp (24hrs), Av.7 ??F (36.5 ??C), Min:97 ??F (36.1 ??C), Max:98 ??F (36.7 ??C) ) with blood pressures ranging from Systolic (24hrs), Av , Min:132 , Max:170 Nurse concern: None Objective Intake & Output Intake/Output Summary (Last 24 hours) at 09/21/2025 0836 Last data filed at 09/20/2025 1555 Gross per 24 hour Intake 18 ml Output 9 ml Net 9 ml last BM: Exam: General Appearance: Laying in bed, in not acute distress. Mental status: Awake, A&Ox0 Language: Severe aphasia, not responding to questions, intermittently responds to commands such as wiggling her toes or squeezing her fingers Speech: Unable to assess Visual rodriguez: CN II: visual rodriguez grossly intact Neglect: No visual or tactile neglect noted CN 3 - 12:CN III, IV, : PERRLA, EOMI CN V: Responds to touch of V1-3,CN VII: Facial movements symmetric and Notable for left UMN Weakness,Hearing grossly intact to voice, CN IX, X: Pallet elevates symmetrically, CN XI: head turn and shoulder shrug intact based on observation,CN XII: Tongue midline without fasciculations or atrophy and Unable to examine Motor: No tone or movement abnormalities noted Objective strength: Unable to follow commands, moving all extremities to gravity without issue. Muscle Stretch Reflexes BI TRI BR PAT ACH TOES Right 2+ 2+ 2+ 2+ 2+ Down Left 2+ 2+ 2+ 2+ 2+ Down Sensory Responds to light touch in all extremities. Cerebellar Unable to Assess Gait Deferred Investigations Objective Last NIH NIH Total: 12 (09/21/2025 8:00 AM) Assessment Interval: Shift (09/21/2025 8:00 AM) Level of Consciousness: 0 (09/21/2025 8:00 AM) LOC: Questions (Month and Age): 2 (09/21/2025 8:00 AM) LOC: Commands (opens/closes, eyes/fists): 1 (09/21/2025 8:00 AM) Best Gaze: 0 (09/21/2025 8:00 AM) Visual: 0 (09/21/2025 8:00 AM) Facial Palsy: 0 (09/21/2025 8:00 AM) Motor Arm Function - Right: 0 (09/21/2025 8:00 AM) Motor Arm Function - Left: 0 (09/21/2025 8:00 AM) Motor Leg - Right: 1 (09/21/2025 8:00 AM) Motor Leg - Left: 1 (09/21/2025 8:00 AM) Limb Ataxia: 2 (09/21/2025 8:00 AM) Sensory: 1 (09/21/2025 8:00 AM) Best Language: 2 (09/21/2025 8:00 AM) Dysarthria: 2 (09/21/2025 8:00 AM) Extinction and Inattention: 0 (09/21/2025 8:00 AM) Ancillary tests: Brain Imaging: CT Head CT HEAD WO CONTRAST 09/19/2025 Narrative PROCEDURE: CT HEAD WO CONTRAST, DATE/TIME OF EXAM: 09/19/2025 11:52 PM, LOCATION [facility] INDICATION: I63.9: Ischemic stroke (HCC) G93.40: Acute encephalopathy ADDITIONAL CLINICAL INFORMATION: Ordering Provider Reason For Exam: cva Technologist Note: Additional: TECHNIQUE: CT of the head was performed without contrast according to standard protocol. COMPARISON: CT head 04/30/2025 FINDINGS: No acute intracranial hemorrhage or intra- or extra-axial fluid collections are identified. There is mild cerebral volume loss with associated ex vacuo ventricular dilatation. The basal cisterns are patent. No mass effect or midline shift is seen. Chronic infarct in the right ELECTRIC RANGE SERVICER territory. Additional encephalomalacia in the left shin radiata appears new since 04/30/2025. The roy-white matter differentiation otherwise appears normal. Periventricular white matter hypoattenuation is a nonspecific finding that may be indicative of chronic small vessel ischemic disease. There is atherosclerotic calcification of the carotid siphons. The visualized portions of the orbits, paranasal sinuses, and mastoids appear normal. No acute calvarial fracture is identified. Impression : 1.No CT evidence of acute hemorrhage, herniation, or large territorial infarct. 2.Please note CT is insensitive to small infarcts particularly in the posterior fossa, if there is continued clinical concern MRI can be obtained. 3.Encephalomalacia in the left shin radiata is new new since 04/30/2025. 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 > Dictated by Alberto David MD, (cardiac cath lab radiology technologist). > Dictated by Alberto David MD 09/19/2025 11:56 PM > Dictated by Special Education Tutor I, Tra Russell MD have personally reviewed and interpreted this examination/study. > Interpreting Provider: Tra Russell MD on 09/20/2025 12:[address] HEAD WO CONTRAST 09/17 FINDINGS: Periventricular and subcortical white matter hypodensities are seen, which likely represent sequelae of chronic microvascular change. Chronic infarct/encephalomalacia in the right parietal lobe. Chronic infarct/encephalomalacia in the left frontal lobe. No acute intracranial hemorrhage or CT evidence of acute-subacute, large territory infarct. There is no evidence of hydrocephalus, extraaxial fluid collection, mass effect or midline shift. There is no acute displaced calvarial fracture. Right maxillary sinus mucosal thickening, otherwise visualized paranasal sinuses and mastoid air cells are clear. MRI Angio, Brain/Neck 09/19/2025 IMPRESSION: 1. 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 The superior aspect of the left intracranial vertebral artery also appears occluded. 2. Nonvisualization of an anterior left MCA M2 branch as well as attenuated appearance of the remaining left MCA vasculature beyond the M1-M2 bifurcation. 3. Given impression 1 and 2 above, interventional neurology consultation is recommended. 4. Moderate focal stenosis of the right intracranial vertebral artery. 5. No high-grade stenosis or proximal vessel occlusion in the neck. MRI Brain MRI Brain Wo Contrast 09/18/[address] [address] Examination: MRI BRAIN WO CON, 09/18/2025 7:41 AM. Technique: Multiplanar multisequence magnetic resonance images of the brain were obtained without intravenous contrast. Clinical history: AMS, hx CVA Comparison: CT head 09/17/2025 Findings: There is focal ovoid restricted diffusion within the subcortical white matter of the left frontal lobe that may be represent an acute infarct. Suggestion of some cortical sparing which is somewhat atypical, therefore recommend MRI brain exam with contrast follow-up in 4-6 weeks unless symptoms warrant sooner characterization. Curvilinear susceptibility along the cortical margin of the right parietal convexity as evidence for cortical laminar necrosis. Scattered subcortical and periventricular white matter T2 FLAIR hyperintensities that are nonspecific but most commonly seen in setting of chronic small vessel ischemic change. Sellar, callosal, pineal, and craniovertebral junction regions appear within normal limits. There is no extra-axial collection. Basal cisterns appear normal. The proximal intracranial arterial flow voids have a normal appearance. Orbital contents appear normal. Paranasal sinuses are well aerated. Trace left mastoid air cell fluid. The right mastoid air cells are well aerated. Impression IMPRESSION: 1. Focal ovoid restricted diffusion within the subcortical white matter of the left frontal lobe that may represent an acute infarct. Suggestion of some cortical sparing which is somewhat atypical, therefore recommend MRI brain exam with contrast follow-up in 4-6 weeks unless symptoms warrant sooner characterization. 2. Mild chronic small vessel ischemic change. 3. 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 Ordered By: DALJIT VELAZCO Interpreted By: Jarod Vega MD, 09/18/2025 9:02 AM Findings delivered to Dr. Esquivel via [employer] secure messaging at the time of dictation. Cerebral Angiogram DATE/TIME OF EXAM: 09/20/2025 10:00 AM Procedure: Diagnostic Catheter Cerebral Angiogram Findings: - Left Vertebral artery It reveals a distal V2 - V3 segments with normal course and caliber. The V4 segment has a proximal segment with normal course and caliber, but there is visualization of alternating areas of severe stenosis in distal segment of V4 segment. The left vertebral artery ends in PICA which also has alternating areas of moderate stenosis in its proximal segments, the distal segments have a normal course and caliber. - Left Internal Carotid Artery It reveals a normal course and caliber of the intracranial segments. There is visualization of a prominent caliber posterior communicating artery suggestive of a ELECTRIC RANGE SERVICER variant. The middle cerebral artery has a diffuse decrease caliber of its horizontal segment causing moderate stenosis, the superior and inferior division have some there is visualization of alternating areas of moderate and severe stenosis following a beading pattern. The anterior cerebral artery has a diffuse decrease caliber of its A1 segment causing moderate stenosis. Cortical branches of the A2 segments such as frontopolar, pericallosal, callosomarginal have alternating areas of moderate and severe stenosis following a beading pattern. The venous phase shows a normal drainage. - Left External Carotid Artery, cerebral angiogram. It reveals a normal course and caliber of the distal branches of middle meningeal artery, occipital and superficial temporal artery. - Right Internal Carotid Artery. It reveals a normal course and caliber of the intracranial segments. There is visualization of a prominent caliber posterior communicating artery suggestive of a ELECTRIC RANGE SERVICER variant. The middle cerebral artery has a normal course and caliber, the rest of the segments have alternating areas of moderate stenosis following a beading pattern. The anterior cerebral artery has a normal course and caliber of its A1 segment, the rest of its segments have alternating areas of moderate and severe stenosis following a beading pattern. The venous phase shows a normal drainage. - Right External Carotid Artery. It reveals a normal course and caliber of the distal branches of middle meningeal artery, occipital and superficial temporal artery. -Right Vertebral artery. It reveals a V4 segment with a distal moderate stenosis. There is not further visualization of the vertebrobasilar junction or basilar artery due due to contrast washout however we cant rule out severe stenosis or occlusion as a selective angiogram of the right vertebra; artery was ot performed. Impression: - Multiple alternating areas of moderate to severe stenosis affecting anterior and posterior circulation following a beading pattern. This could represent severe intracranial atherosclerosis or QUALITY MANAGEMENT NURSE vasculitis, recommend clinical correlation. Cardiac: TTE/RADHA LVEF < 30%: []Yes [x]No (Value:60-65%) Akinesia or Hypokinesia: []Yes [x]No Patent Foramen [place]: []Yes [x]No Comments: ECHO RADHA COMPLETE 05/10/2025 Narrative Summary * Left ventricular systolic function is normal with an estimated ejection fraction of 60-65% by visual estimate. * Intact interatrial septum visualized by 2D and color Doppler imaging. * Agitated saline contrast study at rest and with Valsalva is negative for a shunt. * The left atrial appendage is normal in shape with normal velocity, and there is no thrombus. Patient Info Name: Gena Pierre Age: 64 years : 1960 Gender: Female Ht: 66 in Wt: 200 lb BSA: 2.09 m2 HR: 112 bpm BP: 136 / 79 mmHg Heart Rhythm: Tachycardia Exam Date: 05/10/2025 9:20 AM Patient Status: I/P Study Site: [facility] Primary Location: [facility] EStudy Info Technical Quality: Adequate Exam Type: ECHO RADHA COMPLETE Indications R55 - Syncope with abnormal neurologic examination R29.90 - Syncope with abnormal neurologic examination Contrast/Agitated Saline Contrast / Saline: Agitated Saline Amount: 10.00 ml Reaction to Contrast: no * A transesophageal echocardiogram is performed. Staff Referring Physician: Chintan Caro Ordering Provider: Chintan Caro Attending Physician: Chintan Caro Fellow: Mary Graham Mammography Tech: Rachel Jordan Performing Physician: Maryann Roa MD Mammography Tech: Mary Graham Complications * There were no complications prior to, during or in recovery from the transesophageal echocardiogram. Medications * The posterior pharynx was sprayed with Cetacaine spray and the patient was administered viscous Xylocaine 2% by mouth. * The patient was premedicated with 3.00 mg intravenous Versed. * The patient was premedicated with 75.00 mcg intravenous Fentanyl. Procedure Details The patient arrived in a fasting state after obtaining informed consent. The transesophageal probe was passed without difficulty into the posterior pharynx, mid-esophagus, distal esophagus, and gastric fundus. Imaging was performed at multiple levels. The patient tolerated the procedure well and there were no complications. The patient was transferred out of the examination area in satisfactory condition. Left Ventricle The left ventricle is normal in size. Left ventricular systolic function is normal with an estimated ejection fraction of 60-65% by visual estimate. Right Ventricle Right ventricular chamber dimension is normal in size. Right ventricular systolic function is normal. Ventricular Septum Intact interventricular septum visualized by 2D and color Doppler and agitated saline imaging. Left Atrium The left atrium is normal in size. There is no thrombus visualized in the left atrium. Right Atrium The right atrium is normal in size. An infusion catheter is seen in the right atrium. Atrial Septum Intact interatrial septum visualized by 2D and color Doppler imaging. Agitated saline contrast study at rest and with Valsalva is negative for a shunt. Atrial Appendage The left atrial appendage is normal in shape with normal velocity, and there is no thrombus. Aortic Valve The aortic valve is trileaflet. There is no aortic valve regurgitation. There is no aortic valve stenosis. Mitral Valve Mitral valve is structurally and functionally normal to two-dimensional, color flow Doppler and Doppler interrogation. There is mild mitral valve regurgitation. Tricuspid Valve The tricuspid valve is structurally and functionally normal by two-dimensional, color flow Doppler and Doppler interrogation. There is no tricuspid valve regurgitation. Pulmonary Veins Pulmonary veins are normal by two-dimensional and color flow imaging. Doppler velocity profiles are normal indicating no obstruction of flow, normal left-sided filling pressures. Aorta Minimal plaque in the ascending aorta, aortic arch and descending aorta. Report Signatures Finalized by Maryann Roa MD on 05/10/2025 05:18 PM Reviewed by Fellow Mary Graham on 05/10/2025 04:43 PM Lumbar Puncture Latest Reference Range & Units 05/07/25 12:06 Tube Number TUBE 4 Color CSF COLORLESS Appearance CSF CLEAR Nucleated Cells CSF <=5 x10E6/L 4 RBC CSF 0 - 5 x10E6/L 614 (H) Xanthochromia CSF ABSENT ABSENT Glucose,CSF-STAT 40 - 70 mg/dL 43 Albumin CSF 8.4 - 34.2 mg/dL 14.2 Tryon-4-Qrqnarne CSF 0.0 - 5.4 mg/dL 2.4 Beta-Globulin CSF 0.0 - 8.1 mg/dL 3.1 Gamma Globulin CSF 0.0 - 5.4 mg/dL 2.1 Alpha-1 Globulin CSF 0.0 - 3.1 mg/dL 1.3 Angiotensin-Converting Enzyme CSF 0.0 - 2.5 U/L 0.6 IgA CSF 0.0 - 0.7 mg/dL 0.2 Prealbumin CSF 0.0 - 3.1 mg/dL 1.1 Cryptococcus Antigen CSF Negative Negative Protein CSF 15.0 - 45.0 mg/dL 15 - 45 mg/dL 24.2 35 (H): Data is abnormally high Rheumatology Labs Latest Reference Range & Units 05/01/25 00:32 05/07/25 12:06 LEX IgG None Detected None Detected Myelin Basic Protein 0.00 - 5.50 ng/mL 55.00 (H) ANCA Pattern None Detected None Detected ANCA Titer <1:20 <1:20 Myeloperoxidase Antibody 0 - 19 AU/mL 0 Rheumatoid Factor Screen Negative Negative Rheumatoid Factor <30 IU/mL <15 Serine Proteinase 3 IgG 0 - 19 AU/mL 0 (H): Data is abnormally high EKG (has Loop Recorder) Date: N/A Sinusal: []Yes [x]No Atrial Fibrillation: []Yes [x]No Telemetry Atrial Fibrillation: []Yes [x]No Labs: Lipid Profile Home Statin use: [x]Yes []No Recent Labs Component Name 09/20/25 0412 CHOL 232* HDL 65 LDLCALC 148* TRIG 95 Endocrinology: T2DM previously diagnosed? [x]Yes []No Wireless Glucose WB/POC (mg/dL) Date/Time Value 09/21/2025 07:46 AM 98 09/20/2025 11:06 PM 71 09/20/2025 09:07 PM 62 (L) 09/20/2025 06:24 PM 95 09/20/2025 04:21 PM 133 (H) 09/20/2025 03:51 PM 68 (L) Recent Labs Component Name 09/20/25 0412 04/29/25 0115 HGBA1C 5.0 4.5 Cardiac Enzymes Recent Labs Component Name 09/20/25 0542 09/20/25 0412 TROPIHS 13 13 Recent Labs Component Name 09/20/25 0542 09/20/25 0412 TROPIHS 13 13 Troponin Curve: []Yes []No Assessment Gena Pierre is a 65 year old female presenting for confusion, expressive aphasia, chronic left sided weakness from prior stroke in 2024. She has severe intracranial atherosclerosis. She is on DAPT. ESRD on dialysis. CT head without contrast did not show any intracranial bleed. EEG has been normal at OSH. MRI shows a small focus of left frontal lobe subcortical infarct. Echo done in April had shown normal EF, without any evidence of PFO, or left atrial thrombus. Loop recorder in place. MRA showing patchy multifocal stenosis -possibly secondary to atherosclerosis versus vasculitis versus vasospasm. DSA showing alternating areas of severe stenosis in anterior and posterior circulation following a beading pattern. Stroke Type: Ischemic Stroke Mechanism: Large Artery/flow failure vs Vasculitis Plan Plan: Further workup : TTE and Telemetry LP on Tuesday Vasculitis labs ordered/pending- Rheumatology consulted, appreciate recommendations Secondary stroke prevention: Aspirin 81mg Start Brilinta 90 mg after LP Hyperlipidemia: Atorvastatin 80 mg (increased from home 40 mg) (LDL = 148) SBP goal (short term): < 220 To be achieved with: Labetalol 10 mg IV PRN (HR>70), Hydralazine 10 mg IV PRN (HR<70) SBP goal (rat exterminator): <120 +/- 10 To be achieved with: Home Coreg 25 mg (increased from 12.5 on 09/21) DVT PPX: Heparin Recovery Plan: Swallow Evaluation/Diet: DIET CARDIAC PT/OT evaluation:PT Discharge Recommendations Recommended Transportation Method: Stretcher/Ambulance PT Discharge Recommendations: Patient would benefit from multidisciplinary therapy Pending Placement: Pending Checklist: Code Code Status: NO CPR(DNR) NO INTUBATION Access Hemodialysis catheter Bowel Regimen Miralax PRN, Sennakot daily Specialities involved Stroke, Nephrology, IR Patient/Family updated Cousin and POA updated by phone Additional Hospital Problems: History of ischemic right MCA stroke Present on Admission: Yes Ischemic stroke (HCC) Present on Admission: Yes Primary hypertension Present on Admission: Yes -see above ESRD (end stage renal disease) (HCC) Present on Admission: Yes Secondary hyperparathyroidism (HCC) Present on Admission: Yes ESRD on HD - hemodialysis catheter placement confirmed with CXR 09/20 - dialysis schedule MWF - per nephrology no dialysis F 09/20 Hyperparathyroidism - Nephrology recommending PTHrp, Vitamin D, Ionized Calcium (ordered) - Vitamin D low (19.9) - supplement D3 5000 units Type 2 diabetes mellitus with unspecified complications (HCC) Present on Admission: Yes On SSI Hx of major depression Present on Admission: Yes -Continue home venlafaxine Hospital course and plan was discussed with patient /family. Patient seen and discussed with Attending Physician, Dr. Blanc Written in collaboration with Nasreen Avendano, MS3 [facility] This note was dictated using speech recognition software. Minor errors in micro photographer may be present. Please notify if questions arise. Kimberley Mukherjee MD Neurology Resident 09/21/2025 Cosigned by Columba Blanc MD at 09/21/2025 1:37 PM ANIMAL HUMANE AGENT SUPERVISOR AL HUMANE AGENT SUPERVISOR AL HUMANE AGENT SUPERVISOR AL HUMANE AGENT SUPERVISOR * Carla Vasquez RN - 09/21/2025 12:01 AM CST Ngt inserted per order. Pt unable to redirect on need for ngt with multiple attempts. Wrist restraints applied per order. Patient was able to pull out ngt. Received order for wrist restraints and mittens per order and applied. Cousin Adry on chart notified. Patient without understanding on need for ngt despite education. Ngt applied per order. Bedside Rn notified. Awaiting kub per order to check placement. AL HUMANE AGENT SUPERVISOR * Miller Olson RN - 09/20/2025 8:16 PM CST Problem: Neurosensory - Adult Goal: Achieves stable or improved neurological status Description: INTERVENTIONS Outcome: Progressing Goal: Remains free of injury related to seizures activity Description: INTERVENTIONS: Outcome: Progressing Goal: Achieves maximal functionality and self care Description: INTERVENTIONS: Outcome: Progressing Problem: Skin/Tissue Integrity - Adult Goal: Skin integrity remains intact Description: INTERVENTIONS: Outcome: Progressing Goal: Incisions, wounds, or drain sites healing without S/S of infection Description: INFECTIONS: Outcome: Progressing Goal: Oral mucous membranes remain intact Description: INTERVENTIONS: Outcome: Progressing Problem: Nutrient: Inadequate protein-energy intake Goal: Total intake will meet estimated nutrient needs Outcome: Progressing Problem: Transfers Goal: LTG - Patient will transfer from one surface to another Outcome: Progressing AL HUMANE AGENT SUPERVISOR * Alicja Diaz - 09/20/2025 3:06 PM CST I am aware of this patient's admission, I will be following this dialysis patient for any needs while an inpatient, and keeping their clinic informed of their progress while admitted. Records were forwarded to the clinic for their review. Spoke with Ravinder at [facility] and she was able to confirm patient's OP HD schedule [facility] Days: MWF Time: 115pm Doctor: Dr Colmenares Alicja Diaz [facility] Ascom: [phone] Office: [phone] AL HUMANE AGENT SUPERVISOR * Tylor Covarrubias LCSW - 09/20/2025 1:34 PM CST Care Coordination Initial Assessment Expected Discharge Date: 09/21/2025 Expected Discharge Disposition: SNF vs return to LTC Transportation at Discharge: EMS Prior Level of Care: LTC in [facility] Comments: Lives with: n/a patient is a resident of a LTC facility. Physical Limitations: Patient transitioned from her home address in March following stroke. Home is a 3 story home which patient could no longer navigate following CVA deficits. Requires Assistance With: all ADLS Preferred Pharmacy: [facility] [address] [phone] READMISSION RISK SCORE is 15.5 at 4:01 PM 09/20/2025. Patient was in medical imaging when bedside visit was attempted. Patient sister Krysta was at bedside and SW provided sister with business card. PINA outreached listed contact Adry [phone] who completed assessment with PINA. Family requesting that patient return to facility at discharge unless patient requires an additional level of care prior to returning. Family Support (name and phone): Extended Emergency Contact Information Primary Emergency Contact: Adry Smith Mobile Relation: Cousin Shotgun Shell Reprinting Unit Operator needed? No Patient or business development representative requests care coordination reach out to family or caregiver listed above regarding discharge planning and at time of discharge? Yes Stock Clerk Referral: No Will continue to follow. For any questions or needs please contact: Home Help Aide/Social Work Name/Phone number: Tylor Covarrubias LCSW AL HUMANE AGENT SUPERVISOR * Yamel Huddleston SLP - 09/20/2025 1:23 PM CST [facility] Department of Physical Medicine & Rehabilitation Speech Therapy Progress Note Patient: Gena Pierre Med Record Number: [id number] Date of : 1960 Age: [age] year old 09/20/25 1323 Missed Visit Missed Visit Procedure Off Floor (Pt in OR) AL HUMANE AGENT SUPERVISOR * Oneida Jonas RN - 09/20/2025 11:21 AM CST Interventional Radiology Nursing - End Procedure Note Sedation: Versed: 2 mg, Fentanyl: 100 mcg Sedation start time: 1025 hours Procedure start time: 1027 hours Procedure end time:1120 hours Additional drugs: Radial access cocktail (through intraarterial sheath): 3000 units Heparin, 2.5 mgVerapamil,300 mcg Nitroglycerin Contrast: 130 mL of Isovue-300 Fluoroscopy time: ____ min AL HUMANE AGENT SUPERVISOR * Yamel Huddleston SLP - 09/20/2025 10:12 AM CST [facility] Department of Physical Medicine & Rehabilitation Speech Therapy Progress Note Patient: Gena Pierre Med Record Number: [id number] Date of : 1960 Age: [age] year old 09/20/25 1012 Missed Visit Patient off the floor Medical Imaging AL HUMANE AGENT SUPERVISOR * Oneida Jonas RN - 09/20/2025 9:51 AM CST All medications and fluids verified prior to transfer to sterile field. Consent verified with RUPAL Nelson prior to start of procedure. AL HUMANE AGENT SUPERVISOR AL HUMANE AGENT SUPERVISOR * Nasreen Avendano - 09/20/2025 8:57 AM CST Images from the original note were not included. [facility] Stroke Progress Note Gena Pierre Age: [age] year old Date of : 1960 Date of Admission: 09/19/2025 Hospital Day: 1 This note is for teaching purposes only, please see resident note. Admission history and Hospital course: Gena Pierre is a 65 year old female with PMHx of CVA (04/2025, R MCA territory, ischemic, embolic), DM2, ESRD on HD, and hyperparathyroidism admitted for difficulty with communication. Began 08/31 during which time she had a UTI which they originally thought may have been the cause but then continued after UTI resolution. Per family before this she was A&Ox4. NIHSS on arrival 09/19 at 10:00 pm = 7. Not a TNK or MT candidate given timeline. Imaging on concerning for acute L frontal lobe infarct (L MCA Territory). 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 Repeat CTH on 09/19 showed no evidence of acute hemorrhage. 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 Of note patient has history of R MCA territory stroke 04/2025 characterized at the time as embolic of undetermined source. TTE at the time showed normal ejection fraction (~60%). DSA performed 09/20 with concerns for vasculitis. Subjective (today) Overnight: Pulled at hemodialysis catheter, otherwise no events. Patient remained afebrile (Tm Temp(24hrs), Av.2 ??F (36.8 ??C), Min:98 ??F (36.7 ??C), Max:98.5 ??F (36.9 ??C) ) with blood pressures ranging from Systolic (24hrs), Av , Min:115 , Max:131 Nurse concern: Hemodialysis catheter placement. Objective Intake & Output Intake/Output Summary (Last 24 hours) at 09/20/2025 0909 Last data filed at 09/20/2025 0838 Gross per 24 hour Intake 0 ml Output 0 ml Net 0 ml last BM: Exam: General Appearance: Laying in bed, in not acute distress. Mental status: Asleep, but arouses to voice, A&Ox0 Language: Severe aphasia, answers all questions with [id number] to indicate no Speech: Unable to assess Visual rodriguez: Unable to assess due to patient unwilling or unable to open eyes , Neglect: Unable to assess due to above CN 3 - 12:CN III, IV, : unable to assess due to above. CN V: Responds to touch of V1-3,CN VII: Facial movements symmetric and Notable for left UMN Weakness,Hearing grossly intact to voice, CN IX, X: Unable to Examine,due to aboveCN XI: head turn and shoulder shrug intact based on observation,CN XII: Unable to examine due to above Motor: No tone or movement abnormalities noted Objective strength: Unable to follow commands, moving all extremities to gravity without issue. Muscle Stretch Reflexes BI TRI BR PAT ACH TOES Right 2+ 2+ 2+ 2+ 2+ Down Left 2+ 2+ 2+ 2+ 2+ Down Sensory Responds to light touch in all extremities. Cerebellar Unable to Assess due to above Gait Deferred Investigations Objective Last NIH NIH Total: 13 (09/20/2025 7:27 AM) Assessment Interval: Shift (09/20/2025 7:27 AM) Level of Consciousness: 2 (09/20/2025 7:27 AM) LOC: Questions (Month and Age): 2 (09/20/2025 7:27 AM) LOC: Commands (opens/closes, eyes/fists): 1 (09/20/2025 7:27 AM) Best Gaze: 1 (09/20/2025 7:27 AM) Visual: 1 (09/20/2025 7:27 AM) Facial Palsy: 0 (09/20/2025 7:27 AM) Motor Arm Function - Right: 0 (09/20/2025 7:27 AM) Motor Arm Function - Left: 0 (09/20/2025 7:27 AM) Motor Leg - Right: 0 (09/20/2025 7:27 AM) Motor Leg - Left: 0 (09/20/2025 7:27 AM) Limb Ataxia: 2 (09/20/2025 7:27 AM) Sensory: 0 (09/20/2025 7:27 AM) Best Language: 2 (09/20/2025 7:27 AM) Dysarthria: 2 (09/20/2025 7:27 AM) Extinction and Inattention: 0 (09/20/2025 7:27 AM) Ancillary tests: Brain Imaging: CT Head CT HEAD WO CONTRAST 09/19/2025 Narrative PROCEDURE: CT HEAD WO CONTRAST, DATE/TIME OF EXAM: 09/19/2025 11:52 PM, LOCATION [facility] INDICATION: I63.9: Ischemic stroke (HCC) G93.40: Acute encephalopathy ADDITIONAL CLINICAL INFORMATION: Ordering Provider Reason For Exam: cva Technologist Note: Additional: TECHNIQUE: CT of the head was performed without contrast according to standard protocol. COMPARISON: CT head 04/30/2025 FINDINGS: No acute intracranial hemorrhage or intra- or extra-axial fluid collections are identified. There is mild cerebral volume loss with associated ex vacuo ventricular dilatation. The basal cisterns are patent. No mass effect or midline shift is seen. Chronic infarct in the right ELECTRIC RANGE SERVICER territory. Additional encephalomalacia in the left shin radiata appears new since 04/30/2025. The roy-white matter differentiation otherwise appears normal. Periventricular white matter hypoattenuation is a nonspecific finding that may be indicative of chronic small vessel ischemic disease. There is atherosclerotic calcification of the carotid siphons. The visualized portions of the orbits, paranasal sinuses, and mastoids appear normal. No acute calvarial fracture is identified. Impression : 1.No CT evidence of acute hemorrhage, herniation, or large territorial infarct. 2.Please note CT is insensitive to small infarcts particularly in the posterior fossa, if there is continued clinical concern MRI can be obtained. 3.Encephalomalacia in the left shin radiata is new new since 04/30/2025. 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 > Dictated by Alberto David MD, (cardiac cath lab radiology technologist). > Dictated by Alberto David MD 09/19/2025 11:56 PM > Dictated by Special Education Tutor I, Tra Russell MD have personally reviewed and interpreted this examination/study. > Interpreting Provider: Tra Russell MD on 09/20/2025 12:[address] HEAD WO CONTRAST 09/17 FINDINGS: Periventricular and subcortical white matter hypodensities are seen, which likely represent sequelae of chronic microvascular change. Chronic infarct/encephalomalacia in the right parietal lobe. Chronic infarct/encephalomalacia in the left frontal lobe. No acute intracranial hemorrhage or CT evidence of acute-subacute, large territory infarct. There is no evidence of hydrocephalus, extraaxial fluid collection, mass effect or midline shift. There is no acute displaced calvarial fracture. Right maxillary sinus mucosal thickening, otherwise visualized paranasal sinuses and mastoid air cells are clear. MRI Angio, Brain/Neck 09/19/2025 IMPRESSION: 1. 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 The superior aspect of the left intracranial vertebral artery also appears occluded. 2. Nonvisualization of an anterior left MCA M2 branch as well as attenuated appearance of the remaining left MCA vasculature beyond the M1-M2 bifurcation. 3. Given impression 1 and 2 above, interventional neurology consultation is recommended. 4. Moderate focal stenosis of the right intracranial vertebral artery. 5. No high-grade stenosis or proximal vessel occlusion in the neck. MRI Brain MRI Brain Wo Contrast 09/18/2025 Narrative [facility] [address], [place] [address] Examination: MRI BRAIN WO CON, 09/18/2025 7:41 AM. Technique: Multiplanar multisequence magnetic resonance images of the brain were obtained without intravenous contrast. Clinical history: AMS, hx CVA Comparison: CT head 09/17/2025 Findings: There is focal ovoid restricted diffusion within the subcortical white matter of the left frontal lobe that may be represent an acute infarct. Suggestion of some cortical sparing which is somewhat atypical, therefore recommend MRI brain exam with contrast follow-up in 4-6 weeks unless symptoms warrant sooner characterization. Curvilinear susceptibility along the cortical margin of the right parietal convexity as evidence for cortical laminar necrosis. Scattered subcortical and periventricular white matter T2 FLAIR hyperintensities that are nonspecific but most commonly seen in setting of chronic small vessel ischemic change. Sellar, callosal, pineal, and craniovertebral junction regions appear within normal limits. There is no extra-axial collection. Basal cisterns appear normal. The proximal intracranial arterial flow voids have a normal appearance. Orbital contents appear normal. Paranasal sinuses are well aerated. Trace left mastoid air cell fluid. The right mastoid air cells are well aerated. Impression IMPRESSION: 1. Focal ovoid restricted diffusion within the subcortical white matter of the left frontal lobe that may represent an acute infarct. Suggestion of some cortical sparing which is somewhat atypical, therefore recommend MRI brain exam with contrast follow-up in 4-6 weeks unless symptoms warrant sooner characterization. 2. Mild chronic small vessel ischemic change. 3. 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 Ordered By: DALJIT VELAZCO Interpreted By: Jarod Vega MD, 09/18/2025 9:02 AM Findings delivered to Dr. Esquivel via [employer] secure messaging at the time of dictation. Cardiac: TTE/RADHA LVEF < 30%: []Yes [x]No (Value:60-65%) Akinesia or Hypokinesia: []Yes [x]No Patent Foramen Ovale: []Yes [x]No Comments: ECHO RADHA COMPLETE 05/10/2025 Narrative Summary * Left ventricular systolic function is normal with an estimated ejection fraction of 60-65% by visual estimate. * Intact interatrial septum visualized by 2D and color Doppler imaging. * Agitated saline contrast study at rest and with Valsalva is negative for a shunt. * The left atrial appendage is normal in shape with normal velocity, and there is no thrombus. Patient Info Name: Gena Pierre Age: 64 years : 1960 Gender: Female Ht: 66 in Wt: 200 lb BSA: 2.09 m2 HR: 112 bpm BP: 136 / 79 mmHg Heart Rhythm: Tachycardia Exam Date: 05/10/2025 9:20 AM Patient Status: I/P Study Site: [facility] Primary Location: [facility] EStudy Info Technical Quality: Adequate Exam Type: ECHO RADHA COMPLETE Indications R55 - Syncope with abnormal neurologic examination R29.90 - Syncope with abnormal neurologic examination Contrast/Agitated Saline Contrast / Saline: Agitated Saline Amount: 10.00 ml Reaction to Contrast: no * A transesophageal echocardiogram is performed. Staff Referring Physician: Chintan Caro Ordering Provider: Chintan Caro Attending Physician: Chintan Caro Fellow: Mary Graham Mammography Tech: Rachel Jordan Performing Physician: Maryann Roa MD Mammography Tech: Mary Graham Complications * There were no complications prior to, during or in recovery from the transesophageal echocardiogram. Medications * The posterior pharynx was sprayed with Cetacaine spray and the patient was administered viscous Xylocaine 2% by mouth. * The patient was premedicated with 3.00 mg intravenous Versed. * The patient was premedicated with 75.00 mcg intravenous Fentanyl. Procedure Details The patient arrived in a fasting state after obtaining informed consent. The transesophageal probe was passed without difficulty into the posterior pharynx, mid-esophagus, distal esophagus, and gastric fundus. Imaging was performed at multiple levels. The patient tolerated the procedure well and there were no complications. The patient was transferred out of the examination area in satisfactory condition. Left Ventricle The left ventricle is normal in size. Left ventricular systolic function is normal with an estimated ejection fraction of 60-65% by visual estimate. Right Ventricle Right ventricular chamber dimension is normal in size. Right ventricular systolic function is normal. Ventricular Septum Intact interventricular septum visualized by 2D and color Doppler and agitated saline imaging. Left Atrium The left atrium is normal in size. There is no thrombus visualized in the left atrium. Right Atrium The right atrium is normal in size. An infusion catheter is seen in the right atrium. Atrial Septum Intact interatrial septum visualized by 2D and color Doppler imaging. Agitated saline contrast study at rest and with Valsalva is negative for a shunt. Atrial Appendage The left atrial appendage is normal in shape with normal velocity, and there is no thrombus. Aortic Valve The aortic valve is trileaflet. There is no aortic valve regurgitation. There is no aortic valve stenosis. Mitral Valve Mitral valve is structurally and functionally normal to two-dimensional, color flow Doppler and Doppler interrogation. There is mild mitral valve regurgitation. Tricuspid Valve The tricuspid valve is structurally and functionally normal by two-dimensional, color flow Doppler and Doppler interrogation. There is no tricuspid valve regurgitation. Pulmonary Veins Pulmonary veins are normal by two-dimensional and color flow imaging. Doppler velocity profiles are normal indicating no obstruction of flow, normal left-sided filling pressures. Aorta Minimal plaque in the ascending aorta, aortic arch and descending aorta. Report Signatures Finalized by Maryann Roa MD on 05/10/2025 05:18 PM Reviewed by Fellow Mary Graham on 05/10/2025 04:43 PM EKG (has Loop Recorder) Date: N/A Sinusal: []Yes [x]No Atrial Fibrillation: []Yes [x]No Telemetry Atrial Fibrillation: []Yes [x]No Labs: Lipid Profile Home Statin use: [x]Yes []No Recent Labs Component Name 09/20/25 0412 CHOL 232* HDL 65 LDLCALC 148* TRIG 95 Endocrinology: T2DM previously diagnosed? [x]Yes []No Wireless Glucose WB/POC (mg/dL) Date/Time Value 09/20/2025 08:09 AM 84 Recent Labs Component Name 04/29/25 0115 HGBA1C 4.5 Cardiac Enzymes Recent Labs Component Name 09/20/25 0542 09/20/25 0412 TROPIHS 13 13 Recent Labs Component Name 09/20/25 0542 09/20/25 0412 TROPIHS 13 13 Troponin Curve: []Yes []No Assessment Gena Pierre is a 65 year old female presenting for confusion, expressive aphasia, and chronic leftsided weakness with L facial droop from prior R MCA stroke, taking DAPT at home. History of ESRD onHD. MRI showed left frontal lobe infarct. Underwent DSA showing concerns for vasculitis. Stroke Type: Ischemic Stroke Mechanism: Vasculitis v. Cardioembolic v. Large Artery/flow failure Plan Plan: Further workup : TTE today to reassess heart function Lumbar Puncture Tuesday, > 48 hours off Plavix Vasculitis work up (CRP, ESR< ANCA, SSA/SSB, LEX) Secondary stroke prevention: Aspirin 81mg Start Brilinta 90 mg after LP Hyperlipidemia: Atorvastatin 80 mg (increased from home 40 mg) (LDL = 148) SBP goal (short term): < 220 To be achieved with: Labetalol 10 mg IV PRN (HR>70), Hydralazine 10 mg IV PRN (HR<70) SBP goal (alf): <120 +/- 10 To be achieved with: Home Coreg 12.5 mg DVT PPX: Heparin Recovery Plan: Swallow Evaluation/Diet: DIET NPO Except: NO EXCEPTIONS, SIPS WITH MEDS PT/OT evaluation: Pending Placement: Pending Checklist: Code Code Status: NO CPR(DNR) NO INTUBATION Access Hemodialysis catheter Bowel Regimen Miralax PRN, Sennakot daily Specialities involved Stroke, Nephrology Patient/Family updated Cousin and POA updated by phone Additional Hospital Problems: ESRD on HD - hemodialysis catheter placement confirmed with CXR 09/20 - dialysis schedule MWF - per nephrology no dialysis F 09/20 - history of hypotension/syncope during dialysis, likely secondary to flow failure Hyperparathyroidism - Nephrology recommending PTHrp, Vitamin D, Ionized Calcium (ordered) T2DM - HgbA1c = 5.0 History of ischemic right MCA stroke Present on Admission: Yes Ischemic stroke (HCC) Present on Admission: Yes Primary hypertension Present on Admission: Yes ESRD (end stage renal disease) (HCC) Present on Admission: Yes Type 2 diabetes mellitus with unspecified complications (HCC) Present on Admission: Yes Secondary hyperparathyroidism (HCC) Present on Admission: Yes Hx of major depression Present on Admission: Yes Hospital course and plan was discussed with patient /family. Patient seen and discussed with Attending Physician, Dr. Jayashree Avendano, MS3 [facility] [employer] Cosigned by Columba Blanc MD at 09/23/2025 2:37 PM ANIMAL HUMANE AGENT SUPERVISOR AL HUMANE AGENT SUPERVISOR AL HUMANE AGENT SUPERVISOR AL HUMANE AGENT SUPERVISOR AL HUMANE AGENT SUPERVISOR * Bethany Bundy, PT - 09/20/2025 8:40 AM CST [facility] Physical Therapy Initial Evaluation Note Patient: Gena Pierre Med Record Number: [id number] Date of : 1960 Age: [age] year old PPE worn by staff: gloves PPE worn by patient: gown - patient, clean;socks - clean Co-eval with OT due to unknown tolerance or functional abilities of patient. Recommendations: Discharge PT Discharge Recommendations: Patient would benefit from multidisciplinary therapy This recommendation is made due to ongoing PT functional needs: address functional deficits Recommended Transportation Method: Stretcher/Ambulance In addition to the 1:1 evaluation of the patient, additional eval time was spent completing the chart review prior to the assessment, completing the multidisciplinary plan of care and education plan post evaluation and communicating results of the eval to other treatment team members. Patient is being recommended for post acute care, therefore DME recommendations will be made at thenext level of care. Nurse and Occupational Therapist contacted regarding patient status and/or discharge plan. Consult Specifics: Evaluation and Treat PRECAUTIONS: Weight Bearing Status: (no restrictions) Activity Level: Activity as Tolerated DIAGNOSIS: Problem List[1] Past Medical History[2] SUBJECTIVE: Subjective: Pt with aphasia PATIENT GOALS / WHAT MATTERS MOST TO THE PATIENT: Patient's Primary Concern: none stated Home Situation: Additional Information (PT): pt with aphasia and unable to provide PLOF and home setup; no family present at bedside Prior Level of Functioning: Pain Assessment: Pain Assessment Pain Scale/Observation: Critical Care Pain Observation Tool OBJECTIVE: At start of therapy session, patient found in bed and with bed alarm on. General Appearance: female supine in bed in NAD LDAs: Floor: HD site Edema: no edema noted in bilateral lower extremities Vitals: (*Assess the 3 levels of oxygen saturations both for room air and 02 unless rest on room air is 88% or less). Rest BP: 140/81 (98) HR: 79 Sp02 Sp02 100% Room Air Observations: Vitals monitored throughout session. Pt without any SOB, dizziness, or signs/symptomsof distress. RN notified and aware at end of session. Mental Status/Cognition: Level of Consciousness-Adult: (oriented to self, disoriented to placed, situation and time) Cognition: Unable to follow commands;Poor attention or concentration Attention Span: Difficulty attending to directions Memory: (unable to assess 2/2 to aphasia) Following Commands: (follows < 25% of simple commands with repetition) Safety Judgement: Decreased awareness of need for safety Awareness of Errors: Decreased awareness of deficits;Assistance required to identify errors made;Assistance required to correct errors made Problem Solving: Assistance required to generate solutions;Assistance required to identify errors made;Assistance required to implement solutions ROM: RLE: unable to formally assess 2/2 to command follow, observed to be WFL LLE: unable to formally assess 2/2 to command follow, observed to be WFL Strength: RLE:unable to formally assess 2/2 to command follow, pt spontaneously moves BLE against gravity LLE: unable to formally assess 2/2 to command follow, pt spontaneously moves BLE against gravity Tone: RLE: no abnormal tone noted LLE: no abnormal tone noted Coordination: RLE: not tested LLE: not tested Sensation: RLE: unable to formally assess d/t command follow LLE: unable to formally assess d/t command follow Mobility: A gait belt and non-slip socks were used for all out of bed activity this date. Bed Mobility: Rolling: Maximal Assistance to Right;Maximal Assistance to Left Supine to Sit: Maximum Assistance;X 2;Requires Verbal Cues for Technique;Requires Physical Cues forTechnique with HOB in semi-fowlers position Sit to Supine: Moderate Assistance;Requires Verbal Cues for Technique;Requires Physical Cues for Technique Transfers: Sit to Stand: Activity Does Not Occur (pt impulsively lays back down during session) Gait: Weight Bearing Status: (no restrictions) Distance Ambulated (ft): 0 FEET (deferred as no attempt at standing made this session) Comments: Pt sat at EOB for ~45 sec with SBA for safety. Pt with limited willingness to participatewith therapy this date and impulsively laid back down and brought legs back into bed. Pt with limited command follow and inconsistent following of instructions Balance: Balance Scales/Tests Used: Sitting: Static/Dynamic Sitting - Static: Fair - Sitting - Dynamic: Poor + ACTIVITY TOLERANCE: Activity Tolerance: Tolerates sitting less than 5 minutes (~45 seconds sitting) TREATMENT/INTERVENTIONS: evaluation, bed mobility training, balance activities, monitoring of vitals, and cognitive stimulation Modified Seminary: Current Modified Seminary Score: 5 AM-PAC 6 Clicks Mobility Raw Score:: 8 EDUCATION: While performing PT, Patient was instructed in:functional mobility training, cognitive retraining, energy conservation, safety awareness/fall precautions , use of call light Presented to patient who demonstrates Questionable understanding of instructions given. INFORMED CONSENT TO TREATMENT: Plan of care is discussed but patient with questionable understanding. ASSESSMENT: Patient would benefit from additional Physical Therapy sessions to achieve the following functionalgoals to enhance independence. Short Term Goals: Goal Formation Patient unable to participate in goal formulation Patient will perform bed mobility with moderate assist Patient will be able to sit edge of bed for 10 minutes with standby assist Senior Care Goal(s): Patient to discharge to appropriate next level of inpatient care. Equipment Issued: none Plan: Gait training Transfer training Stair training Assistive device training Endurance training Bed mobility training Balance training Energy conservation techniques Safety awareness Home exercise program training wheelchair mobility If patient is discharged from the facility, this note serves as a discharge summary if further physical therapy visits did not occur. Refer to filed flowsheet for further details. Following therapy session, patient left in bed, with bed alarm on , with call light within reach, with RNFrieda aware, with therapy cues visible on white board, with fall mats in place, all lines/tubes intact. 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) ESRD (end stage renal disease) (HCC) Primary hypertension Type 2 diabetes mellitus with unspecified complications (HCC) Hypocalcemia Syncope with abnormal neurologic examination Vaginal bleeding Uterine mass Cerebrovascular accident (CVA) due to embolism of right middle cerebral artery (HCC) Acute ischemic left MCA stroke (HCC) Secondary hyperparathyroidism (HCC) Ischemic stroke (HCC) Hx of major depression [2] Past Medical History: Diagnosis Date Acute renal failure Anemia CKD (chronic kidney disease) DM (diabetes mellitus), type 2 (HCC) HTN (hypertension) AL HUMANE AGENT SUPERVISOR * Johnny Oscar - 09/20/2025 8:39 AM CST [facility] Occupational Therapy Initial Evaluation Note Patient: Gena Pierre Med Record Number: [id number] Date of : 1960 Age: [age] year old PPE worn by staff: gloves PPE worn by patient: gown - patient, clean;socks - clean Co-Eval with PT d/t medical complexity and treatment efficacy Recommendations: Discharge OT Discharge Recommendations: Patient would benefit from multidisciplinary therapy This recommendation is made due to ongoing OT functional needs: address functional deficits;addresscare for self in the home In addition to the 1:1 evaluation of the patient, additional eval time was spent completing the chart review prior to the assessment, completing the multidisciplinary plan of care and education plan post evaluation and communicating results of the eval to other treatment team members. Nurse contacted regarding patient status and/or discharge plan. Consult Specifics: Evaluation and Treat Activity Level: as tolerated DIAGNOSIS: Problem List[1] Past Medical History[2] SUBJECTIVE: Subjective: Pt aphasic this date and minimally verbal. Pt intermittently responds to questions/commands w one word answers and gestures. PATIENT GOALS / WHAT MATTERS MOST TO THE PATIENT: Patient's Primary Concern: Sleeping Home Situation: Additional Information (OT): pt with aphasia and unable to provide PLOF and home setup; no family present at bedside Pain Assessment: Pain Assessment Pain Scale/Observation: Critical Care Pain Observation Tool - 0 OBJECTIVE: At start of therapy session, patient found in bed General Appearance: 65 y/o F found in NAD LDA: Floor: IVs: Peripheral line Edema: No edema noted Vitals: Rest BP: 140/81 (98) HR: 79 Sp02 100% Room Air Observations: No s/s or c/o SOB, dizziness, or light-headedness during mobility and tx. Mental Status/Cognition: Pt A&O x1 to self. Pt presents with poor safety awareness and poor insight to deficits. Pt able to follow less than 25% of 1 step commands with tactile cueing and increased time. Pt intermittently participatory in conversation this date with gestures and one word answers. Perception: Inattention/Neglect: Appears intact Initiation: Cues to initiate tasks Motor Planning: Appears intact Mobility: A gait belt and non-slip socks were used for all out of bed activity this date. Bed Mobility: Rolling: Maximal Assistance to Right;Maximal Assistance to Left Supine to Sit: Maximum Assistance;X 2;Requires Verbal Cues for Technique;Requires Physical Cues forTechnique with HOB in semi-fowlers position Sit to Supine: Moderate Assistance;Requires Verbal Cues for Technique;Requires Physical Cues for Technique Transfers: Sit to Stand: Activity Does Not Occur (pt impulsively lays back down during session) Balance: Balance Scales/Tests Used: Sitting: Static/Dynamic Sitting - Static: Fair - Sitting - Dynamic: Poor + ACTIVITY TOLERANCE: Activity Tolerance: Tolerates sitting less than 5 minutes Modified Seminary: Current Modified Seminary Score: 5 AM-PAC 6 Clicks Daily Activity Raw Score:: 11 TREATMENT / EDUCATION / INTERVENTIONS: While performing OT, Patient was instructed in:functional mobility training, safety awareness/fall precautions , discharge planning, use of call light Presented to patient who demonstrates Questionable understanding of instructions given. INFORMED CONSENT TO TREATMENT: Plan of care is discussed but patient with questionable understanding. ASSESSMENT: Functional performance limited due to: limited activities of daily living, decreased functional mobility, decreased functional balance, decreased cognition , decreased safety awareness, and decreasedendurance and activity tolerance. Patient continues to benefit from skilled Occupational Therapy toachieve the following functional goals. Short Term Goals: Goal Formation With patient Cognition: 1 step commands and 50% of the time Patient will increase orientation to person, place, time, and situation Patient will perform grooming at edge of bed and with minimal assist Patient will perform supine to/from sit with maximal assist Patient will transfer sit to stand with maximal assist Senior Care Goal(s): Patient to discharge to appropriate next level of inpatient care. Plan: Patient continues to benefit from skilled therapy services. If patient is discharged from the facility, this note serves as a discharge summary if further occupational therapy visits did not occur. Refer to filed flowsheet for further details. Following therapy session, patient left in bed, with call light within reach, with RN in room. 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) ESRD (end stage renal disease) (HCC) Primary hypertension Type 2 diabetes mellitus with unspecified complications (HCC) Hypocalcemia Syncope with abnormal neurologic examination Vaginal bleeding Uterine mass Cerebrovascular accident (CVA) due to embolism of right middle cerebral artery (HCC) Acute ischemic left MCA stroke (HCC) Secondary hyperparathyroidism (HCC) Ischemic stroke (HCC) Hx of major depression [2] Past Medical History: Diagnosis Date Acute renal failure Anemia CKD (chronic kidney disease) DM (diabetes mellitus), type 2 (HCC) HTN (hypertension) Cosigned by Sofie Mclean OT at 09/20/2025 3:14 PM ANIMAL HUMANE AGENT SUPERVISOR AL HUMANE AGENT SUPERVISOR AL HUMANE AGENT SUPERVISOR * Kimberley Mukherjee MD - 09/20/2025 7:29 AM CST Images from the original note were not included. [facility] Stroke Progress Note Gena Pierre Age: [age] year old Date of : 1960 Date of Admission: 09/19/2025 Hospital Day: 1 Admission history and Hospital course: Gena Pierre is a 65-year-old woman with past medical history of CVA, DM2, ESRD on HD, hyperparathyroidism who presents to the ED for the above. Patient unable to provide any history. When asked her name probably later. RN reports patient has been waxing and waning in her ability to communicate, she was able to state her name and when she does dialysis. This has been goingon since 08/31 when she had a UTI. RN is questioning whether patient is altered vs uncooperative. Family at bedside earlier reportedly state patient A&O x 4 a week ago. Family and patient reporting in ED dislike toward current rehab facility and do not want to go back there. Subjective (today) Overnight: Patient had no acute events occur overnight. Patient remained afebrile (Tm Temp (24hrs),Av.2 ??F (36.8 ??C), Min:98 ??F (36.7 ??C), Max:98.5 ??F (36.9 ??C) ) with blood pressures ranging from Systolic (24hrs), Av , Min:115 , Max:131 Nurse concern: Overnight patient pulled the dressing for her hemodialysis catheter, there is a concern that the hemodialysis catheter might be misplaced so checking with IR to ensure it is still usable for hemodialysis. Objective Intake & Output Intake/Output Summary (Last 24 hours) at 09/20/2025 0951 Last data filed at 09/20/2025 0838 Gross per 24 hour Intake 0 ml Output 0 ml Net 0 ml last BM: Exam: General Appearance: Laying in bed, Asleep HD catheter in place Mental status: Asleep, but arouses to touch-but quickly returns to sleep, unable to properly assessorientation says uh-uh for all questions Language: Response to all question with uh-uh intermittently responding to commands such as wiggling her toes or squeezing her fingers Speech: Unable to assess Visual rodriguez: ,CN II: visual rodriguez grossly intact Neglect: No visual or tactile neglect noted CN 3 - 12:CN III, IV, : PERRLA,,CN VII: Facial movements symmetric ,Hearing grossly intact to voice, CN IX, X: Pallet elevates symmetrically,CN XI: head turn and shoulder shrug intact bilaterally,CN XII: Tongue midline without fasciculations or atrophy Motor: No tone or movement abnormalities noted Objective strength: Moves all 4 extremities against gravity-conservation coordinator strength is weak (but possibly confounded by poor effort) Sensory Grossly intact to light touch Cerebellar Unable to assess Gait Deferred Investigations Objective Last NIH NIH Total: 13 (09/20/2025 7:27 AM) Assessment Interval: Shift (09/20/2025 7:27 AM) Level of Consciousness: 2 (09/20/2025 7:27 AM) LOC: Questions (Month and Age): 2 (09/20/2025 7:27 AM) LOC: Commands (opens/closes, eyes/fists): 1 (09/20/2025 7:27 AM) Best Gaze: 1 (09/20/2025 7:27 AM) Visual: 1 (09/20/2025 7:27 AM) Facial Palsy: 0 (09/20/2025 7:27 AM) Motor Arm Function - Right: 0 (09/20/2025 7:27 AM) Motor Arm Function - Left: 0 (09/20/2025 7:27 AM) Motor Leg - Right: 0 (09/20/2025 7:27 AM) Motor Leg - Left: 0 (09/20/2025 7:27 AM) Limb Ataxia: 2 (09/20/2025 7:27 AM) Sensory: 0 (09/20/2025 7:27 AM) Best Language: 2 (09/20/2025 7:27 AM) Dysarthria: 2 (09/20/2025 7:27 AM) Extinction and Inattention: 0 (09/20/2025 7:27 AM) Ancillary tests: Brain Imaging: CT Head CT HEAD WO CONTRAST 09/19/2025 FINDINGS: No acute intracranial hemorrhage or intra- or extra-axial fluid collections are identified. There is mild cerebral volume loss with associated ex vacuo ventricular dilatation. The basal cisterns are patent. No mass effect or midline shift is seen. Chronic infarct in the right ELECTRIC RANGE SERVICER territory. Additional encephalomalacia in the left shin radiata appears new since 04/30/2025. The roy-white matter differentiation otherwise appears normal. Periventricular white matter hypoattenuation is a nonspecific finding that may be indicative of chronic small vessel ischemic disease. There is atherosclerotic calcification of the carotid siphons. The visualized portions of the orbits, paranasal sinuses, and mastoids appear normal. No acute calvarial fracture is identified. Impression 1.No CT evidence of acute hemorrhage, herniation, or large territorial infarct. 2.Please note CT is insensitive to small infarcts particularly in the posterior fossa, if there is continued clinical concern MRI can be obtained. 3.Encephalomalacia in the left shin radiata is new new since 04/30/2025. 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 > Dictated by Alberto David MD, (cardiac cath lab radiology technologist). > Interpreting Provider: Tra Russell MD on 09/20/2025 12:15 AM CTA Head and Neck Extracranial Stenosis: []Yes [x]No (Value:[...]) Intracranial Stenosis: [x]Yes []No (Value:[...]) Impression: 04/30/25 3. Multifocal irregular up to severe stenosis of the bilateral anterior, middle and posterior cerebral arteries, more pronounced in the right MCA, and up to severe irregular stenosis of the V4 segments of the vertebral arteries and the entire basilar artery. Given the only minimal atherosclerotic disease and good patency of the large neck arteries, these findings may represent QUALITY MANAGEMENT NURSE vasculitis, vasculopathy or reversible cerebral vasoconstriction syndrome. Please correlate clinically. A conventional DSA catheter angiogram may be considered to further evaluate. MRI Brain MRI Brain Wo Contrast 09/18/2025 Narrative [facility] [address], [place] [address] Examination: MRI BRAIN WO CON, 09/18/2025 7:41 AM. Technique: Multiplanar multisequence magnetic resonance images of the brain were obtained without intravenous contrast. Clinical history: AMS, hx CVA Comparison: CT head 09/17/2025 Findings: There is focal ovoid restricted diffusion within the subcortical white matter of the left frontal lobe that may be represent an acute infarct. Suggestion of some cortical sparing which is somewhat atypical, therefore recommend MRI brain exam with contrast follow-up in 4-6 weeks unless symptoms warrant sooner characterization. Curvilinear susceptibility along the cortical margin of the right parietal convexity as evidence for cortical laminar necrosis. Scattered subcortical and periventricular white matter T2 FLAIR hyperintensities that are nonspecific but most commonly seen in setting of chronic small vessel ischemic change. Sellar, callosal, pineal, and craniovertebral junction regions appear within normal limits. There is no extra-axial collection. Basal cisterns appear normal. The proximal intracranial arterial flow voids have a normal appearance. Orbital contents appear normal. Paranasal sinuses are well aerated. Trace left mastoid air cell fluid. The right mastoid air cells are well aerated. Impression IMPRESSION: 1. Focal ovoid restricted diffusion within the subcortical white matter of the left frontal lobe that may represent an acute infarct. Suggestion of some cortical sparing which is somewhat atypical, therefore recommend MRI brain exam with contrast follow-up in 4-6 weeks unless symptoms warrant sooner characterization. 2. Mild chronic small vessel ischemic change. 3. 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 Ordered By: DALJIT VELAZCO Interpreted By: Jarod Vega MD, 09/18/2025 9:02 AM Findings delivered to Dr. Esquivel via [employer] secure messaging at the time of dictation. 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 The superior aspect of the intracranial left vertebral artery also appears occluded. Moderate focal stenosis of the right intracranial vertebral artery. There is nonvisualization of an anterior left MCA M2 branch. Remaining left MCA vasculature beyond the M1-M2 bifurcation also appears attenuated. No aneurysm is identified. Neck: No high-grade stenosis or proximal vessel occlusion Duplex Carotids and Vertebrals No results found for this or any previous visit from the past 30 days. Cardiac: TTE/RADHA LVEF < 30%: []Yes [x]No (Value:[...]) Akinesia or Hypokinesia: []Yes [x]No Patent Foramen Ovale: []Yes [x]No (Value:[...]) Comments: ECHO RADHA COMPLETE 05/10/2025 Narrative Summary * Left ventricular systolic function is normal with an estimated ejection fraction of 60-65% by visual estimate. * Intact interatrial septum visualized by 2D and color Doppler imaging. * Agitated saline contrast study at rest and with Valsalva is negative for a shunt. * The left atrial appendage is normal in shape with normal velocity, and there is no thrombus. EKG Date: 04/29 Sinusal: [x]Yes []No Atrial Fibrillation: []Yes [x]No Telemetry Atrial Fibrillation: []Yes []No Labs: Lipid Profile Home Statin use: [x]Yes []No Recent Labs Component Name 09/20/25 0412 CHOL 232* HDL 65 LDLCALC 148* TRIG 95 Endocrinology: T2DM previously diagnosed? []Yes []No Wireless Glucose WB/POC (mg/dL) Date/Time Value 09/20/2025 08:09 AM 84 Recent Labs Component Name 09/20/25 0412 04/29/25 0115 HGBA1C 5.0 4.5 Cardiac Enzymes Recent Labs Component Name 09/20/25 0542 09/20/25 0412 TROPIHS 13 13 Recent Labs Component Name 09/20/25 0542 09/20/25 0412 TROPIHS 13 13 Troponin Curve: []Yes [x]No Assessment Gena Pierre is a 65 year old female presenting for confusion, expressive aphasia, chronic left sided weakness from prior stroke in 2024. She has severe intracranial atherosclerosis. She is on DAPT. ESRD on dialysis. CT head without contrast did not show any intracranial bleed. EEG has been normalat OSH. MRI shows a small focus of left frontal lobe subcortical infarct. Echo done in April had shown normal EF, without any evidence of PFO, or left atrial thrombus. Loop recorder in place. MRA showing patchy multifocal stenosis -possibly secondary to atherosclerosis versus vasculitis versus vasospasm. Stroke Type: Ischemic Stroke Mechanism (As per TOAST Classification): Large Artery / flow failure Plan Plan: Further workup : TTE and Telemetry DSA planned for today Will also consider LP based on DSA results Vasculitis labs ordered/pending Secondary stroke prevention: Plavix 75mg, Aspirin 81mg Hyperlipidemia medication: Atorvastatin 80 SBP goal (short term): < 220 To be achieved with: Labetalol 10 mg IV PRN (HR>70), Hydralazine 10 mg IV PRN (HR<70) SBP goal (alf): <130/90 To be achieved with: Home Coreg DVT PPX: Heparin Recovery Plan: Swallow Evaluation/Diet: DIET NPO Except: NO EXCEPTIONS, SIPS WITH MEDS PT/OT evaluation:PT Discharge Recommendations Recommended Transportation Method: Stretcher/Ambulance PT Discharge Recommendations: Patient would benefit from multidisciplinary therapy Placement:pendng Checklist: Code Code Status: NO CPR(DNR) NO INTUBATION Access Hemodialysis catheter Bowel Regimen Miralax QD PRN/Sennakot daily Specialities involved Stroke team, Nephrology, IR Patient/Family updated Cousin and POA updated By phone Additional Hospital Problems: History of ischemic right MCA stroke Present on Admission: Yes Ischemic stroke (HCC) Present on Admission: Yes Primary hypertension Present on Admission: Yes -see above ESRD (end stage renal disease) (HCC) Present on Admission: Yes Secondary hyperparathyroidism (HCC) Present on Admission: Yes -HD per nephrology Type 2 diabetes mellitus with unspecified complications (HCC) Present on Admission: Yes On SSI Hx of major depression Present on Admission: Yes -Continue home venlafaxine Hospital course and plan was discussed with patient /family. Patient seen and discussed with Stroke fellow Tramaine De La Cruz This note was dictated using speech recognition software. Minor errors in micro photographer may be present. Please notify if questions arise. Kimberley Mukherjee MD Neurology Resident 09/20/2025 Cosigned by Tae Fisher MD at 09/25/2025 10:04 AM ANIMAL HUMANE AGENT SUPERVISOR AL HUMANE AGENT SUPERVISOR AL HUMANE AGENT SUPERVISOR AL HUMANE AGENT SUPERVISOR AL HUMANE AGENT SUPERVISOR * Miller Olson RN - 09/20/2025 4:24 AM CST Problem: Neurosensory - Adult Goal: Achieves stable or improved neurological status Description: INTERVENTIONS Outcome: Progressing Goal: Remains free of injury related to seizures activity Description: INTERVENTIONS: Outcome: Progressing Goal: Achieves maximal functionality and self care Description: INTERVENTIONS: Outcome: Progressing Problem: Skin/Tissue Integrity - Adult Goal: Skin integrity remains intact Description: INTERVENTIONS: Outcome: Progressing Goal: Incisions, wounds, or drain sites healing without S/S of infection Description: INFECTIONS: Outcome: Progressing Goal: Oral mucous membranes remain intact Description: INTERVENTIONS: Outcome: Progressing Problem: Gastrointestinal - Adult Goal: Minimal or absence of nausea and vomiting Description: INTERVENTIONS: Outcome: Progressing Goal: Maintains or returns to baseline bowel function Description: INTERVENTIONS: Outcome: Progressing Goal: Maintains adequate nutritional intake Description: INTERVENTIONS: Outcome: Progressing Problem: Metabolic/Fluid and Electrolytes - Adult Goal: Electrolytes maintained within normal limits Description: INTERVENTIONS: Outcome: Progressing Goal: Hemodynamic stability and optimal renal function maintained Description: INTERVENTIONS: Outcome: Progressing Goal: Glucose maintained within prescribed range Description: INTERVENTIONS: Outcome: Progressing AL HUMANE AGENT SUPERVISOR documented in this encounter H&P Notes * Amandeep Hong MD - 09/20/2025 9:35 AM CST Neuro Intervention H & P Patient Name: Gena Pierre Age: [age] year old Reason for Angiogram: Evaluation of severe ICAD v History: The patient is a 65 year old female presenting with 2 weeks history of aphasia. Brain MR showed a new acute infarct in left frontal lobe. CTA brain and neck from 04/30/25 showed multiple areas of severe stenosis in MCA/ANDREA and basilar arteries. She has been on DAPT but continues having strokes. Physical Examination: Mental Status: Awake, Language: Severe fluency and comprehension impairment. CN: Pupils RTL both sides, right subtle UMN facial palsy Motor: Able to move arms and legs spontaneously. Preference for left extremities. Labs Cr p INR p Plt p Sedation Risk Assessment Any oral intake after midnight? No Time of last oral intake: 09/19/2025 Previous adverse reaction to conscious sedation or other types of anesthesia? No Aspiration risk? No History of substance abuse? No Possibility of ? No History of stridor, snoring, disturbed sleep or obstructive sleep apnea? No History of oropharyngeal surgery? No History of chronic analgesic drugs? No History of gastric outlet obstruction, intestinal obstruction or hiatal hernia? No Mallampati III Pre-procedure mRS (modified dona score)- 4 ASA physical status classification: ASA 3 - Patient with moderate systemic disease with functional limitations Sedation Plan: Moderate sedation The risks and benefits for the procedure were explained in detail to poa (cousing). The risk of contrast reaction, damage to the femoral artery, and stroke were specifically mentioned. Written informed consent was obtained. Assessment/Plan 65 yo woman admitted for an acute infarct in left frontal lobe. CTA shows severe multiple areas of stenosis in anterior and posterior circulation. Plan cerebral angiogram for evaluation of severe intracranial vasculopathy. Discussed with Vascular and Neuro-intervention attending Dr. Guero Bernstein MD 09/20/2025 9:35 AM Cosigned by Omar Jack MD at 09/20/2025 9:50 AM ANIMAL HUMANE AGENT SUPERVISOR AL HUMANE AGENT SUPERVISOR AL HUMANE AGENT SUPERVISOR * Sahara Garcia MD - 09/19/2025 10:19 PM CST Images from the original note were not included. [facility] Stroke History and Physical Gena Pierre Age: [age] year old Date of : 1960 Date of Admission: 09/19/2025 Hospital Day: 0 Subjective History of Present Illness Patient unable to communicate HPI per OSH Gena Pierre is a 65-year-old female with past medical history of CVA, DM2, ESRD on HD, hyperparathyroidism who presents to the ED for the above. Patient unable to provide any history. When asked her name probably later. RN reports patient has been waxing and waning in her ability to communicate, she was able to state her name and when she does dialysis. This has been goingon since 08/31 whenshe had a UTI. RN is questioning whether patient is altered vs uncooperative. Family at bedside earlier reportedly state patient A&O x 4 a week ago. Family and patient reporting in ED dislike toward current rehab facility and do not want to go back there. Past Medical history: Anxiety disorder, unspecified Breast cancer ([facility]) Right side mastectomy Chronic kidney disease, unspecified CVA (cerebral vascular accident) ([facility]) 2024 Dependence on renal dialysis Dysphagia Hypercalcemia Hyperparathyroidism, unspecified ([facility]) Type 2 diabetes mellitus without complications ([facility]) Past Surgical history: Past Surgical History[1] Current medications: Current Outpatient Medications Medication Instructions acetaminophen (TYLENOL) 650 mg, Oral, EVERY 6 HOURS PRN, Maximum allowable Acetaminophen amount = 4Grams (4000 mg) / 24 hours. aspirin (ASPIRIN) 81 mg, Oral, DAILY, (chew and swallow) atorvastatin (LIPITOR) 40 mg, Oral, AT BEDTIME carvedilol (COREG) 12.5 mg, Oral, 2 TIMES DAILY WITH MEALS cinacalcet (SENSIPAR) 30 mg, Oral, DAILY WITH BREAKFAST clopidogrel (PLAVIX) 75 mg, Oral, DAILY folic acid (FOLVITE) 1 mg, Oral, DAILY OneTouch Verio test strip 1 strip, 4 TIMES DAILY venlafaxine XR 24hr (EFFEXOR XR) 150 mg, Oral, DAILY WITH DINNER Allergy Allergies[2] Family History Family History[3] Social History Social History[4] Review of Systems Unable to assess Objective No data found. Exam: Mental status: Awake, alert, Follows commands. Oriented x 0 Language: Fluency intact, comprehension intact, repetition intact. Speech: Intact Visual rodriguez: Intact bilaterally to confrontation. Neglect: No appreciable visual or tactile neglect noted. CN 3 - 12: left facial, chronic Motor: Tone/bulk/Abnormal movements: None. Objective strength: Proximal Upper Distal Upper Proximal Lower Distal Lower Right 5/5 5/5 5/5 5/5 Left 4/5 4/5 4/5 4/5 Sensory LT: unable to assess PP: intact Cerebellar FNF Right Intact Left Intact Gait Deferred Ischemic Stroke Documentation NIHSS Stroke Scale: Interval: Baseline Time: 1030 pm Person Administering Scale: Sahara Garcia MD 1a Level of consciousness 0 = Alert; keenly responsive. 1b LOC questions 2 = Aphasic and stuporous patients who do not comprehend the questions. 1c LOC commands 0 = Performs both tasks correctly. 2 Best gaze 0 = Normal. 3 Visual 0 = No visual loss. 4 Facial Palsy 1 = Minor paralysis (flattened nasolabial fold, asymmetry on smiling). 5a Motor Left Arm 1 = Drift; limb holds 90 (or 45) degrees, but drifts down before full 10 seconds;does not hit bed or other support. 5b Motor Right Arm 0 = No drift; limb holds 90 (or 45) degrees for full 10 seconds. 6a Motor Left Leg 1 = Drift; leg falls by the end of the 5-second period but does not hit the bed. 6b Motor Right Leg 0 = No drift; leg holds 30 degree position for full 5 seconds. 7 Limb Ataxia 0 = Absent. 8 Sensory 0 = Normal; no sensory loss. 9 Best Language 2 = Severe aphasia; all communication is through fragmentary expression; great needfor inference, questioning, and guessing by the listener. Range of information that can be exchanged is limited; listener carries burden of communication. 10 Dysarthria 0 = Normal. 11 Extinction/Inattention 0 = No abnormality. Total - 7 Hospital Problems on Admission: Present on Admission: Ischemic stroke ([facility]) ESRD (end stage renal disease) ([facility]) History of ischemic right MCA stroke Primary hypertension Secondary hyperparathyroidism ([facility]) Type 2 diabetes mellitus with unspecified complications ([facility]) MRI Angio Neck Wo Contrast Result Date: 09/19/2025 IMPRESSION: 1. 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 The superior aspect of the left intracranial vertebral artery also appears occluded. 2. Nonvisualization of an anterior left MCA M2 branch as well as attenuated appearance of the remaining left MCA vasculature beyond the M1-M2 bifurcation. 3. Given impression 1 and 2 above, interventional neurology consultation is recommended. 4. Moderate focal stenosis of the right intracranial vertebral artery. 5. No high-grade stenosis or proximalvessel occlusion in the neck. Impression 1-3 were sent to hospitalist on-call by Dr. Douglas via [employer] at 09/19/2025 6:54 PM (central time). Referred By: Interpreted By: Micheal Douglas MD, 09/19/2025 6:42 PM MRI Angio Brain Art Bill Wo Cont Result Date: 09/19/2025 IMPRESSION: 1. 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 The superior aspect of the left intracranial vertebral artery also appears occluded. 2. Nonvisualization of an anterior left MCA M2 branch as well as attenuated appearance of the remaining left MCA vasculature beyond the M1-M2 bifurcation. 3. Given impression 1 and 2 above, interventional neurology consultation is recommended. 4. Moderate focal stenosis of the right intracranial vertebral artery. 5. No high-grade stenosis or proximalvessel occlusion in the neck. Impression 1-3 were sent to hospitalist on-call by Dr. Douglas via [employer] at 09/19/2025 6:54 PM (central time). Referred By: Interpreted By: Micheal Douglas MD, 09/19/2025 6:42 PM MRI Brain Wo Contrast Result Date: 09/18/2025 IMPRESSION: 1. Focal ovoid restricted diffusion within the subcortical white matter of the left frontal lobe that may represent an acute infarct. Suggestion of some cortical sparing which is somewhatatypical, therefore recommend MRI brain exam with contrast follow-up in 4-6 weeks unless symptoms warrant sooner characterization. 2. Mild chronic small vessel ischemic change. 3. 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 Ordered By: DALJIT VELAZCO Interpreted By: Jarod Vega MD, 09/18/2025 9:02 AM Findings delivered toDr. Esquivel via [employer] secure messaging at the time of dictation. CT Head Wo Contrast Result Date: 09/17/2025 IMPRESSION: 1. No acute intracranial findings. If there is persistent clinical concern for acute ischemia, brain MRI is more sensitive. 2. Chronic microvascular change and multifocal chronic infarct/encephalomalacia as above. Referred By: Interpreted By: Micheal Douglas MD, 09/17/2025 7:39 PM XR Chest 1Vw Portable Result Date: 09/17/2025 IMPRESSION: No acute findings. Ordered By: TRINIDAD MEI Interpreted By: Charbel Izquierdo MD, 09/17/2025 6:45 PM Assessment Gena Pierre is a 65 year old female presenting for confusion, expressive aphasia, chronic left sided weakness from prior stroke in 2024. She has severe intracranial atherosclerosis. She is on DAPT. ESRD on dialysis. CT head without contrast did not show any intracranial bleed. EEG has been normalat OSH. MRI shows a small focus of left frontal lobe subcortical infarct. Echo done in April had shown normal EF, without any evidence of PFO, or left atrial thrombus. Loop recorder in place. Stroke Type: Ischemic Stroke Mechanism (As per TOAST Classification): Large Artery / flow failure Plan Left frontal subcortical infarct Stroke Workup; active - Admit to Inpatient - CTH - TTE and Telemetry; if TTE negative, consider RADHA - HbA1C, Lipid Panel, Cardiac Enzymes - UA and UDS - NPO until passes swallow - q4h vitals and neurological checks - PT OT - speech therapy Blood Pressure Goals: Short term BP goal: Stroke/TIA without tnk < 220/120 To be achieved with: PRN: IV hydralazine 10 mg q20m (if HR <60bpm) or IV labetalol 10 mg q15m (if HR >60bpm) terminal worker BP goal: Normotension SBP 120 +/- 10 mmHg ESRD On HD MWF HTN Continue coreg 12.5 BID Core Measures tnk administration: no Anti-thrombotic: asa plavix Statin: y DVT prophylaxis: scd Swallow Evaluation: pending PT/OT Evaluation: pending Smoking cessation; will application counselor: pending Individual Modifiable Risk Factors Hypertension: yes Hyperlipidemia: yes Diabetes: yes Atrial Fibrillation: no Tobacco: no Sahara Garcia MD Neurology Resident. [facility]. [1] Past Surgical History: Procedure Laterality Date ELECTROPHYSIOLOGIC STUDY N/A 05/10/2025 N/A; Loop Recorder Implant ENDOMETRIAL BIOPSY 05/06/2025 [2] Allergies Allergen Reactions Lactose GI Discomfort [3] No family history on file. [4] Social History Socioeconomic History Marital status: Single Tobacco Use Smoking status: Never Smokeless tobacco: Never Vaping Use Vaping status: Never Used Substance and Sexual Activity Alcohol use: Not Currently Drug use: Never Cosigned by Tae Fisher MD at 09/20/2025 9:26 AM ANIMAL HUMANE AGENT SUPERVISOR AL HUMANE AGENT SUPERVISOR AL HUMANE AGENT SUPERVISOR Associated attestation - Tae Fisher MD - 09/20/2025 9:26 AM ANIMAL HUMANE AGENT SUPERVISOR I have seen and examined the patient with the resident and I agree with the findings and plan of care as documented by the reisident. Date of Service: 09/20/2025 Tae Fisher MD Multidisciplinary rounds were held at 9am and the patient's care and recovery plan were reviewed and developed with the assembled team. Gena Pierre is a 65 year old female with a hx of ICAD and hx of prior stroke. She has been on asa/clopidogrel. Now with new aphasia and infarction on CT. Switching clopidogrel to Brillinta. Cath angio for consideration of intracranial stenting. Problem List History of ischemic right MCA stroke (POA: Yes) ESRD (end stage renal disease) (HCC) (POA: Yes) Primary hypertension (POA: Yes) Type 2 diabetes mellitus with unspecified complications (HCC) (POA: Yes) Secondary hyperparathyroidism (HCC) (POA: Yes) Ischemic stroke (HCC) (POA: Yes) Hx of major depression (POA: Yes) See Resident note for the remaining problem specific plan. 1 MEDICATIONS FOR CURRENT ENCOUNTER: SCHEDULED MEDICATIONS: 0.9% NaCl injection 3 mL, Intracatheter, q8h aspirin chew tablet 81 mg, Oral, QDAY atorvastatin (Lipitor) tablet 80 mg, Oral, AT BEDTIME carvedilol (Coreg) tablet 12.5 mg, Oral, BID WC heparin injection 5,000 Units, Subcutaneous, q8h insulin aspart (NovoLOG) pen 0-12 Units, Subcutaneous, TID WC senna-docusate (Senokot-S) tablet 1 tablet, Oral, QDAY ticagrelor (Brilinta) tablet 90 mg, Oral, BID venlafaxine XR 24hr (Effexor XR) capsule 150 mg, Oral, QDAY WITH DINNER CONTINUOUS MEDICATIONS: PRN MEDICATIONS: Or Or Or 0.9% NaCl injection 1-10 mL, Intracatheter, PRN acetaminophen (Tylenol) tablet 650 mg, Oral, q6h PRN dextrose IV 12.5 g, Intravenous, PRN dextrose IV 25 g, Intravenous, PRN glucose (Diabetic Use) oral gel, Oral, PRN hydrALAZINE (Apresoline) injection 10 mg, Intravenous, q20 min PRN labetalol (Normodyne; Trandate) injection 10 mg, Intravenous, q15 min PRN ondansetron (disintegrating) (Zofran ODT) tablet 4 mg, Oral, q6h PRN ondansetron (Zofran) injection 4 mg, Intravenous, q6h PRN polyethylene glycol 3350 (Miralax) packet 17 g, Oral, QDAY PRN Patient Vitals for the past 24 hrs: Temp Pulse Resp BP 09/20/25 0345 98.1 ??F (36.7 ??C) 85 18 131/66 09/20/25 0014 98.5 ??F (36.9 ??C) 85 19 115/58 09/19/25 2219 98 ??F (36.7 ??C) 83 18 122/69 Recent Labs Component Name 09/20/2541105/13/2571905/12/25 0623 NA 140 140 131* 128* CL 95* 95* 98 94* CO2 29 29 24 29 BUN 43* 43* 26 16 CREATININE 9.14* 9.14* 7.05* 5.41* CALCIUM 10.7* 10.7* 7.7* 7.8* PHOS 6.6* 3.2 3.3 Recent Labs Component Name 09/20/2541105/13/25 0720 05/12/25 0623 WBC 8.8 8.8 7.6 7.4 RBC 4.01 4.01 2.51* 2.47* HGB 11.4* 11.4* 7.3* 7.3* HCT 35.5 35.5 22.6* 22.8* Recent Labs Component Name 09/20/25411 CHOL 232* TRIG 95 HDL 65 LDLCALC 148* Recent Labs Component Name 09/20/25 0412 04/29/25 0115 HGBA1C 5.0 4.5 EAG 97 82 Recent Labs Component Name 09/20/25 0412 05/13/25 0720 05/12/25 0623 PLTCOUNT 312 312 232 207 documented in this encounter Procedure Notes * Mike Rock MD - 09/27/2025 8:12 PM CST Procedure: Hemodialysis Indication: ESRD. This patient was seen and examined by me during dialysis today at 9:40am. BP 103/71. No edema. Tolerating the treatment well. Date of service: 09/27/2025 Mike Rock MD Division of Nephrology AL HUMANE AGENT SUPERVISOR * Mike Rock MD - 09/23/2025 2:55 PM CST Procedure: Hemodialysis Indication: ESRD. This patient was seen and examined by me during dialysis today at 9:35am. BP 102/60, trace edema, no complaints. Tolerated UF 1L/d. Serum Ca improved from 11.7 to 10.1 by Cinacalcet 60mg once. Ok to reduce Cinacalcet to 30mg daily. Date of service: 09/23/2025 Mike Rock MD Division of Nephrology AL HUMANE AGENT SUPERVISOR * Sierra Benson MD - 09/21/2025 3:17 PM CST Procedure: Hemodialysis Indication: ESRD. This patient was seen and examined by me during dialysis today. 09/21/2025 Rt IJ TDC Alert but no meaningful communication . No UF Restrains 3 k bath , Qb 350 ml/min , Qd 700ml/min AL HUMANE AGENT SUPERVISOR documented in this encounter Consult Notes * Mary Oleary LCSW - 09/29/2025 2:45 PM CSTAssociated Order(s): IP CONSULT TO CASE MANAGEMENT FOR ABUSE No signs of abuse. Consult addressed by SW on 09-29-25. Mary Oleary LCSW, PILOT SUPERVISOR Care Coordination Stock Clerk AL HUMANE AGENT SUPERVISOR * Mary Oleary LCSW - 09/29/2025 2:37 PM CSTAssociated Order(s): IP CONSULT TO DIE MAKER TRIM Consult addressed. No abuse noted. Patient is from the [facility] and she is to return on disposition. Patient admitted on 09-19-25 and SW answering EASI consult placed on 09/28 and answered on 09-29. Per medical team which has seen and worked with patients, patient is aphasic.No suspected abuse noted. Mary Oleary LCSW, PILOT SUPERVISOR Care Coordination Stock Clerk AL HUMANE AGENT SUPERVISOR * Dk Bhardwaj MD - 09/20/2025 3:36 PM CSTAssociated Order(s): IP CONSULT TO RHEUMATOLOGY Rheumatology Inpatient Consultation Note Patient: Gena Pierre ( , 1960, 65 year old female) Encounter Date: 09/19/2025 Consult requested by: Dr. Blanc Primary service: Stroke Reason for Admission: AMS Reason for Consultation: QUALITY MANAGEMENT NURSE vasculitis Subjective History of Present Illness: Ms. Pierre is a 64 year old with past medical history of breast cancer, hypertension, diabetes who we were consulted for evaluation of potential QUALITY MANAGEMENT NURSE vasculitis. Patient is altered and minimally responsive however sister is at bedside to provide additional history. According to recollection per sister her disease course for started around 1999 when she was diagnosed with breast cancer. She received chemo and radiation and surgery and told she was in remission. She had been following with oncology according to sister until around 2014 where she was lost to follow-up. 2014: This is the best estimated time that the sister cannot state when this patient developed hypertension and diabetes. According to nephrology notes they reference that her hypertension initially had poor control however her diabetes initially had better control with A1c's ranging from 8-9. According to sister she has been compliant with medications however unclear compliance with follow-up. 2022: From nephrology notes at this time and sisters history it appears that patient had worsening kidney function and severe decline in kidney function requiring dialysis initiation at this time. Per nephrology notes it appears that she had had decline in kidney function over the course of 2021 aswell. According to sister's history she stated that she was hospitalized at this time for a potential stroke however did not have any residual deficits and was at her appropriate baseline mentation at this time. She was maintained on Tuesday dialysis schedule for her ESRD. 04/2025: At this time according to sister patient had presented with strokelike symptoms including confusion and weakness and presented with a fall where she hit her head. Outside hospital read of CT head was concerning for subacute hemorrhage as well as potential lytic bone lesions and transferred to [facility]. MRI showed findings concerning for subacute strokes and neurology was consulted CT and PET scans were performed. And CTA revealed multifocal irregular stenosis, severe, of bilateral anterior middle and posterior cerebral arteries concerning for QUALITY MANAGEMENT NURSE vasculitis or vasculopathy. Rheumatology was consulted at that time with lumbar puncture performed by neuroradiology and CSF studies were benign. PET scan showed increased foci in the brain concerning for metastatic lesions however these findings were discordant with the MRI and reviewed by neurosurgery who stated there was no appropriate area to pursue biopsy. PET scan also revealed concern for a uterine mass for which the SENIOR IT BUSINESS ANALYST team was consulted and attempted bedside endometrial biopsy however this was aborted due to resistance. Transvaginal ultrasound was performed and showed hyperechoic lesion from the right side of the uterus and gynecology team after reviewing these findings evaluated for outpatient follow-up. Patient was discharged to a skillednursing facility for follow-up of medical conditions with vascular neurology follow-up and to follow-up with her own breast oncologist. Patient presents here today after reported conversation with sister at outside hospital revealed new worsening altered mental status where previously the patient had been alert and oriented x 3 she was now alert and oriented x 0. The patient's sister alerted her senior living facility to bring her into the outside hospital and she was then transferred to this facility. According to patient's sister there were no reported systemic symptoms while she was at senior living facility including fevers, chills, weight loss, abdominal pain, or any other associated symptoms and at the primary reason there was concern was this altered mental status. In the emergency room vitals were stable and lab work was unremarkable except for elevated creatinine in the setting of ESRD. Home Medications: Medications[1] Adverse Drug Reactions: Allergies[2] Past Medical History: Past Medical History[3] Past Surgical History: Past Surgical History[4] Immunization History: Immunization History Administered Date(s) Administered ??? COVID PFIZER BIVALENT 12Y+ 30mcg/0.3ML 08/19/2022 ??? Covid Pfizer primary monovalent 12+ yr 0.3mL Purple cap 01/09/2021, 02/06/2021 ??? INFLUENZA VACCINE 2021 ??? INFLUENZA VACCINE, CELL CULTURE, QUADR. (FLUCELVAX QUADRIVALENT; 6MO+) (CCIIV4) 08/19/2022 ??? PNEUMOCOCCAL PCV20 CONJ VAC IM 04/17/2025 ??? TDAP (7yrs+) 04/28/2025 Social History: Social History[5] Family History: Family History[6] Patient Care Team: Monster Garza MD Patient Care Team: Monster Garza MD as PCP - General Objective Physical Exam BP 132/69 Pulse 75 Temp 98 ??F (36.7 ??C) (Oral) Resp 16 Ht 1.651 m (5' 5) Wt 78 kg (172lb) SpO2 100% BMI 28.62 kg/m?? GENERAL: NAD HEENT/NECK: White sclerae. Ext ears wnl. No oropharyngeal lesions. No palpable masses. CHEST/LUNGS: Normal work of breathing, CTAB. CARDIOVASCULAR: Regular rhythm, crisp S1/S2, no M/R/G. Ext WWP. No PEARL. ABDOMEN: S/ND/NT. SKIN/NAILS: No rashes on exposed skin. PSYCH: Alert, appropriately interactive. NEURO: Responds to commands and tracks around the room however alert and oriented x 0. Muscle strength over bilateral arms is 4 out of 5, left leg 4 out of 5, right leg 3 out of 5, MSK: No synovitis, dactylitis, or enthesitis. Labs: Reviewed, including those as noted below Results for orders placed or performed during the hospital encounter of 09/19/25 (from the past 14 weeks) BASIC METABOLIC PANEL (CALCIUM TOTAL) Result Value Ref Range BUN 43 (H) 7 - 26 mg/dL Creatinine 9.14 (H) 0.56 - 0.96 mg/dL Sodium 140 136 - 145 mmol/L Potassium 3.7 3.5 - 4.5 mmol/L Chloride 95 (L) 98 - 107 mmol/L CO2 29 22 - 29 mmol/L Glucose 69 (L) 70 - 99 mg/dL Calcium 10.7 (H) 8.4 - 10.2 mg/dL Anion Gap 16 6 - 16 BUN/Creatinine Ratio 5 (L) 7 - 23 Osmolality Calculated 299 (H) 275 - 295 mOsm/kg eGFR by CKD-EPI 4 (L) >=90 mL/min/1.73 m2 CBC W/O DIFFERENTIAL Result Value Ref Range WBC 8.8 4.0 - 10.7 x10E9/L RBC Count 4.01 3.90 - 5.20 x10E12/L Hemoglobin 11.4 (L) 11.9 - 15.8 g/dL Hematocrit 35.5 34.8 - 46.1 % MCV 88.5 80.0 - 98.0 fL MCH 28.4 26.7 - 33.6 pg MCHC 32.1 31.7 - 36.3 g/dL RDW-CV 14.9 (H) 11.3 - 14.8 % Platelet Count 312 150 - 420 x10E9/L MPV 10.5 7.8 - 11.4 fL TROPONIN-I HIGH SENSITIVE BASELINE + 1HR Result Value Ref Range Troponin I High Sensitive 13 <=14 ng/L LIPID PROFILE Result Value Ref Range Cholesterol Total 232 (H) <200 mg/dL HDL 65 >40 mg/dL LDL Calculated 148 (H) <100 mg/dL Triglycerides 95 <150 mg/dL HEMOGLOBIN A1C Result Value Ref Range Hemoglobin A1c 5.0 <=5.6 % Estimated Average Glucose 97 mg/dL COMPREHENSIVE METABOLIC PANEL Result Value Ref Range BUN 43 (H) 7 - 26 mg/dL Creatinine 9.14 (H) 0.56 - 0.96 mg/dL Sodium 140 136 - 145 mmol/L Potassium 3.7 3.5 - 4.5 mmol/L Chloride 95 (L) 98 - 107 mmol/L CO2 29 22 - 29 mmol/L Glucose 69 (L) 70 - 99 mg/dL Calcium 10.7 (H) 8.4 - 10.2 mg/dL Protein Total 7.0 6.0 - 8.3 g/dL Albumin 3.5 3.4 - 5.0 g/dL Bilirubin Total 0.5 0.2 - 1.2 mg/dL Alkaline Phosphatase 114 40 - 150 U/L ALT 13 5 - 55 U/L AST 14 5 - 34 U/L Anion Gap 16 6 - 16 BUN/Creatinine Ratio 5 (L) 7 - 23 Osmolality Calculated 299 (H) 275 - 295 mOsm/kg Albumin/Globulin Ratio 1.0 (L) 1.1 - 2.3 eGFR by CKD-EPI 4 (L) >=90 mL/min/1.73 m2 CBC W AUTO DIFFERENTIAL Result Value Ref Range WBC 8.8 4.0 - 10.7 x10E9/L RBC Count 4.01 3.90 - 5.20 x10E12/L Hemoglobin 11.4 (L) 11.9 - 15.8 g/dL Hematocrit 35.5 34.8 - 46.1 % MCV 88.5 80.0 - 98.0 fL MCH 28.4 26.7 - 33.6 pg MCHC 32.1 31.7 - 36.3 g/dL RDW-CV 14.9 (H) 11.3 - 14.8 % Platelet Count 312 150 - 420 x10E9/L MPV 10.5 7.8 - 11.4 fL Neutrophil % 55.8 41.0 - 74.0 % Lymphocyte % 29.5 17.0 - 47.0 % Monocyte % 10.7 3.0 - 11.0 % Eosinophil % 2.8 0.0 - 7.0 % Basophil % 0.9 0.0 - 1.6 % Immature Granulocytes % 0.3 0.0 - 1.0 % Neutrophil Absolute 4.91 1.60 - 7.50 x10E9/L Lymphocyte Absolute 2.60 1.00 - 4.40 x10E9/L Monocyte Absolute 0.94 0.15 - 1.00 x10E9/L Eosinophil Absolute 0.25 0.00 - 0.60 x10E9/L Basophil Absolute 0.08 0.00 - 0.13 x10E9/L MAGNESIUM BLOOD Result Value Ref Range Magnesium 2.2 1.6 - 2.6 mg/dL PHOSPHORUS BLOOD Result Value Ref Range Phosphorus 6.6 (H) 2.9 - 5.1 mg/dL PTH INTACT W/O CALCIUM Result Value Ref Range PTH Intact 1,836.5 (H) 8.0 - 77.0 pg/mL TROPONIN-I HIGH SENSITIVE REFLEX 1HOUR Result Value Ref Range Troponin I High Sensitive 13 <=14 ng/L Delta Troponin I HS 0 <6 ng/L GLUCOSE - POINT OF CARE Result Value Ref Range Glucose WB/POC 84 70 - 99 mg/dL Specimen Type Arterial/Capillary Latest Reference Range & Units 05/01/25 00:32 05/07/25 12:06 LEX IgG None Detected None Detected Myelin Basic Protein 0.00 - 5.50 ng/mL 55.00 (H) ANCA Pattern None Detected None Detected ANCA Titer <1:20 <1:20 Myeloperoxidase Antibody 0 - 19 AU/mL 0 Rheumatoid Factor Screen Negative Negative Rheumatoid Factor <30 IU/mL <15 Serine Proteinase 3 IgG 0 - 19 AU/mL 0 (H): Data is abnormally high Latest Reference Range & Units 05/07/25 12:06 Tube Number TUBE 4 Color CSF COLORLESS Appearance CSF CLEAR Nucleated Cells CSF <=5 x10E6/L 4 RBC CSF 0 - 5 x10E6/L 614 (H) Xanthochromia CSF ABSENT ABSENT Glucose,CSF-STAT 40 - 70 mg/dL 43 Albumin CSF 8.4 - 34.2 mg/dL 14.2 Gemmu-1-Nskqewck CSF 0.0 - 5.4 mg/dL 2.4 Beta-Globulin CSF 0.0 - 8.1 mg/dL 3.1 Gamma Globulin CSF 0.0 - 5.4 mg/dL 2.1 Alpha-1 Globulin CSF 0.0 - 3.1 mg/dL 1.3 Angiotensin-Converting Enzyme CSF 0.0 - 2.5 U/L 0.6 IgA CSF 0.0 - 0.7 mg/dL 0.2 Prealbumin CSF 0.0 - 3.1 mg/dL 1.1 Cryptococcus Antigen CSF Negative Negative Protein CSF 15.0 - 45.0 mg/dL 15 - 45 mg/dL 24.2 35 (H): Data is abnormally high Other Studies: IR Carotid Cerebral Angiogram Result Date: 09/20/2025 Impression: - Multiple alternating areas of moderate to severe stenosis affecting anterior and posterior circulation following a beading pattern. This could represent severe intracranial atherosclerosis or QUALITY MANAGEMENT NURSE vasculitis, recommend clinical correlation. > Dictated by Special Education Tutor Nickie Coles MD have personally reviewed and interpreted this examination/study. > Interpreting Provider: Omar Jack MD on 09/20/2025 3:[address] HEAD WO CONTRAST Result Date: 09/20/2025 IMPRESSION: 1.No CT evidence of acute hemorrhage, herniation, or large territorial infarct. 2.Please note CT is insensitive to small infarcts particularly in the posterior fossa, if there is continued clinical concern MRI can be obtained. 3.Encephalomalacia in the left shin radiata is new new since 04/30/2025. 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 > Dictated by Alberto David MD, (cardiac cath lab radiology technologist). > Dictated by Alberto David MD 09/19/2025 11:56 PM > Dictated by Special Education Tutor I, Tra Russell MD have personally reviewed and interpreted this examination/study. > InterpretingProvider: Tra Russell MD on 09/20/2025 12:15 AM MRI Angio Neck Wo Contrast Result Date: 09/19/2025 IMPRESSION: 1. 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 The superior aspect of the left intracranial vertebral artery also appears occluded. 2. Nonvisualization of an anterior left MCA M2 branch as well as attenuated appearance of the remaining left MCA vasculature beyond the M1-M2 bifurcation. 3. Given impression 1 and 2 above, interventional neurology consultation is recommended. 4. Moderate focal stenosis of the right intracranial vertebral artery. 5. No high-grade stenosis or proximalvessel occlusion in the neck. Impression 1-3 were sent to hospitalist on-call by Dr. Douglas via ARX at 09/19/2025 6:54 PM (central time). Referred By: Interpreted By: Micheal Douglas MD, 09/19/2025 6:42 PM MRI Angio Brain Art Bill Wo Cont Result Date: 09/19/2025 IMPRESSION: 1. 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 The superior aspect of the left intracranial vertebral artery also appears occluded. 2. Nonvisualization of an anterior left MCA M2 branch as well as attenuated appearance of the remaining left MCA vasculature beyond the M1-M2 bifurcation. 3. Given impression 1 and 2 above, interventional neurology consultation is recommended. 4. Moderate focal stenosis of the right intracranial vertebral artery. 5. No high-grade stenosis or proximalvessel occlusion in the neck. Impression 1-3 were sent to hospitalist on-call by Dr. Douglas via [employer] at 09/19/2025 6:54 PM (central time). Referred By: Interpreted By: Micheal Douglas MD, 09/19/2025 6:42 PM MRI Brain Wo Contrast Result Date: 09/18/2025 IMPRESSION: 1. Focal ovoid restricted diffusion within the subcortical white matter of the left frontal lobe that may represent an acute infarct. Suggestion of some cortical sparing which is somewhatatypical, therefore recommend MRI brain exam with contrast follow-up in 4-6 weeks unless symptoms warrant sooner characterization. 2. Mild chronic small vessel ischemic change. 3. 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 Ordered By: DALJIT VELAZCO Interpreted By: Jarod Vega MD, 09/18/2025 9:02 AM Findings delivered toDr. Esquivel via [employer] secure messaging at the time of dictation. CT Head Wo Contrast Result Date: 09/17/2025 IMPRESSION: 1. No acute intracranial findings. If there is persistent clinical concern for acute ischemia, brain MRI is more sensitive. 2. Chronic microvascular change and multifocal chronic infarct/encephalomalacia as above. Referred By: Interpreted By: Micheal Douglas MD, 09/17/2025 7:39 PM XR Chest 1Vw Portable Result Date: 09/17/2025 IMPRESSION: No acute findings. Ordered By: TRINIDAD MEI Interpreted By: Charbel Izquierdo MD, 09/17/2025 6:45 PM Assessment & Recommendations #. Concern for QUALITY MANAGEMENT NURSE vasculitis Differential: Severe atherosclerosis versus primary QUALITY MANAGEMENT NURSE vasculitis -This patient has risk factors for vasculopathies including longstanding history of diabetes, hypertension, end-stage renal disease requiring HD, hyperlipidemia. Because of this longstanding history of atherosclerosis with prior normal lumbar puncture the pretest probability for primary QUALITY MANAGEMENT NURSE vasculitis is low. She lacks the exam and history that would be concerning for a systemic vasculitis however the signs and symptoms of primary QUALITY MANAGEMENT NURSE vasculitis are nonspecific. Previously negative LEX, ANCA from 04/2025. A lumbar puncture at this admission would help in the guidance of disease as an elevated nucleated cell count and protein would help point to an inflammatory process but a normal lumbar puncture would also help rule out primary QUALITY MANAGEMENT NURSE vasculitis. SUMMARY OF RECOMMENDATIONS - Please obtain lumbar puncture when feasible Rheumatology will continue to follow. Please contact the rheumatology fellow on- call with questions. This patient was seen and staffed with attending Dr. Shea. Dk Garland MD Rheumatology Fellow [facility] [1] No current outpatient medications on file. [2] Allergies Allergen Reactions ??? Lactose GI Discomfort [3] Past Medical History: Diagnosis Date ??? Acute renal failure ??? Anemia ??? CKD (chronic kidney disease) ??? DM (diabetes mellitus), type 2 (HCC) ??? HTN (hypertension) [4] Past Surgical History: Procedure Laterality Date ??? ELECTROPHYSIOLOGIC STUDY N/A 05/10/2025 N/A; Loop Recorder Implant ??? ENDOMETRIAL BIOPSY 05/06/2025 [5] Social History Socioeconomic History ??? Marital status: Single Tobacco Use ??? Smoking status: Never ??? Smokeless tobacco: Never Vaping Use ??? Vaping status: Never Used Substance and Sexual Activity ??? Alcohol use: Not Currently ??? Drug use: Never [6] No family history on file. Cosigned by Daniel Shea MD at 09/21/2025 3:32 PM ANIMAL HUMANE AGENT SUPERVISOR AL HUMANE AGENT SUPERVISOR AL HUMANE AGENT SUPERVISOR Associated attestation - Daniel Shea MD - 09/21/2025 3:32 PM ANIMAL HUMANE AGENT SUPERVISOR Rheumatology Attending Attestation: I have seen and examined the patient with the fellow and I agree with the findings and plan of careas documented by the fellow. Definite extensive atherosclerotic disease, possible QUALITY MANAGEMENT NURSE vasculitis. CSF analysis is an appropriatenext diagnostic step. Recommend LP with CSF analysis including opening pressure, protein, glucose, cell count, flow cytometry, cytology. Today???s evaluation to inform management recommendations included review of other providers??? documentation, review of diagnostic studies, reviewing separately obtained history, performing a medically appropriate evaluation, communicating with other health caregivers non medical, documenting clinical information in the health record, independently interpreting results, counseling regarding the patient's medical problems and management plan, and care coordination. Time for these services on the date of encounter: 80+ minutes. Date of Service: 09/20/25. Daniel Shea MD, FACP, FACR Director, Rheumatology Fellowship Program Department of Internal Medicine [facility] * Cassie Boo, GERALDO/NIKO - 09/20/2025 12:02 PM CSTAssociated Order(s): IP CONSULT TO NUTRITIONAL SERV BRIEF SYNOPSIS: Nutrition Risk Identified and evaluation in progress Dietary Intake: Weight Change: Weight change Unintended weight change: Severe weight loss Weight Loss: > or equal to 2% x 1 week Fat Loss: Muscle Loss: Body mass index is 28.62 kg/m??. GI Concerns: None Nutrition Plan: Current diet order: NPO Recommendation to Physician: + advance diet to as appropriate per AUTOMOTIVE BRAKE SPECIALIST recs CLINICAL NUTRITION ASSESSMENT: RD consulted per stroke protocol. Pt with ischemic stroke. A&O x 2. HD catheter in place. Pt previously had consistent carb diet ordered with PO intake at 0% x [address] notes reoccurring hypoglycemic events. Pt to advance diet when able. Pt KUMAR in OR today at time of RD and AUTOMOTIVE BRAKE SPECIALIST visit. Unab\le to complete full assessment at this time. RD notes significant wt loss per chart. RD to complete assessment and education at f/u is appropriate. Labs reviewed: poor renal panel, elevated phos (6.6).RD will continue to monitor. Med/Surg History and Clinical Diagnoses: Gena Pierre is a 65-year-old female with past medical history of CVA, DM2, ESRD on HD, hyperparathyroidism who presents to the ED for the above. Patient unable to provide any history. When asked her name probably later. RN reports patient has been waxing and waning in her ability to communicate, she was able to state her name and when she does dialysis. Height: 165.1 cm (5' 5) BMI: Body mass index is 28.62 kg/m??. BMI Range: Overweight IBW/lb (Calculated) Female: 125 Recent Weights/Methods 04/28/2025 2018 04/29/2025 0250 05/06/2025 0924 06/20/2025 1016 08/07/2025 1046 09/20/2025 0800 Weight: -- 90.7 kg (200 lb) -- 73.5 kg (162 lb) 78 kg (172 lb) 78 kg (172 lb) Weight Method : Bed scale Bed scale Other (Comment) -- -- -- Unintentional weight change: Per EMR, pt has had a 14% wt loss x 1-2 weeks which would be considered significant. Unintended weight change: Severe weight loss Weight Loss: > or equal to 2% x 1 week PO INTAKE Current diet order: NPO Nutrition recommendation: alter/change nutrition order Food Allergies: Other (Comments) (lactose) Last Percent Meal Eaten (%): 0 % (09/20/25 0838) 48 hr PO INTAKE Percent Meal Eaten (%) Av % Min: 0 % Max: 0 % None Pain affecting intake: No Chewing/Swallowing: (NPO) GI Concerns: None Stools: COMMUNITY PHARMACIST Skin/Wound: radial puncture site Estimated Needs: KCAL: [id number] (25-30 kcal/kg ABW) Protein (g): 78-93 (1.0-1.2 g/kg ABW) Fluid (ml): 1 ml/kcal Needs based on: Kcal/kg- (Comment) (78 kg ABW) Recommended Access Route: PO Labs: Recent Labs Component Name 09/20/2541105/13/2571905/12/25 06 NA 140 140 131* 128* POTASSIUM 3.7 3.7 4.5 4.3 CO2 29 29 24 29 BUN 43* 43* 26 16 CREATININE 9.14* 9.14* 7.05* 5.41* GLUCOSE 69* 69* 65* 62* CALCIUM 10.7* 10.7* 7.7* 7.8* ALT 13 - - ALKPHOS 114 - - AST 14 - - EGFR 4* 4* 6* 8* Recent Labs Component Name 09/20/2541105/13/2571905/12/25622 PHOS 6.6* 3.2 3.3 Recent Labs Component Name 09/20/252 05/13/25 0720 05/12/25 0623 MAGNESIUM 2.2 1.9 1.8 Recent Labs Component Name 09/20/2541105/13/25 0720 05/12/25 0623 HGB 11.4* 11.4* 7.3* 7.3* HCT 35.5 35.5 22.6* 22.8* Recent Labs Component Name 09/20/2541104/29/25 0115 HGBA1C 5.0 4.5 No data found. MEDICATIONS FOR CURRENT ENCOUNTER: SCHEDULED MEDICATIONS: Or 0.9% NaCl injection 3 mL, Intracatheter, q8h carvedilol (Coreg) tablet 12.5 mg, Oral, BID WC [Transfer Hold] aspirin chew tablet 81 mg, Oral, QDAY [Transfer Hold] aspirin suppository 300 mg, Rectal, QDAY [Transfer Hold] atorvastatin (Lipitor) tablet 80 mg, Oral, AT BEDTIME [Transfer Hold] heparin injection 5,000 Units, Subcutaneous, q8h [Transfer Hold] insulin aspart (NovoLOG) pen 0-12 Units, Subcutaneous, TID WC [Transfer Hold] senna-docusate (Senokot-S) tablet 1 tablet, Oral, QDAY [Transfer Hold] ticagrelor (Brilinta) tablet 90 mg, Oral, BID [Transfer Hold] venlafaxine XR 24hr (Effexor XR) capsule 150 mg, Oral, QDAY WITH DINNER CONTINUOUS MEDICATIONS: 0.9% NaCl infusion, Intravenous, CONTINUOUS PRN heparinized saline 2 units/mL infusion, Other, CONTINUOUS PRN PRN MEDICATIONS: Or Or Or 0.9% NaCl infusion, Intravenous, CONTINUOUS PRN 0.9% NaCl injection 1-10 mL, Intracatheter, PRN dextrose IV 12.5 g, Intravenous, PRN dextrose IV 25 g, Intravenous, PRN fentaNYL (PF) (Sublimaze) injection, , Once PRN glucose (Diabetic Use) oral gel, Oral, PRN heparin 3,000 Units, nitroGLYCERIN 200 mcg/ml in dextrose 5 % 300 mcg, verapamil (Isoptin) 300 mcg 4.6 mL, , Once PRN heparinized saline 2 units/mL infusion, Other, CONTINUOUS PRN iopamidol (Isovue 300) 61 % contrast, , Once PRN lidocaine (Xylocaine) 1 % injection, Subcutaneous, Once PRN midazolam (Versed) injection, Intravenous, Once PRN [Transfer Hold] acetaminophen (Tylenol) tablet 650 mg, Oral, q6h PRN [Transfer Hold] hydrALAZINE (Apresoline) injection 10 mg, Intravenous, q20 min PRN [Transfer Hold] labetalol (Normodyne; Trandate) injection 10 mg, Intravenous, q15 min PRN [Transfer Hold] ondansetron (disintegrating) (Zofran ODT) tablet 4 mg, Oral, q6h PRN [Transfer Hold] ondansetron (Zofran) injection 4 mg, Intravenous, q6h PRN [Transfer Hold] polyethylene glycol 3350 (Miralax) packet 17 g, Oral, QDAY PRN Nutrition Diagnostic Statement: Inadequate protein-energy intake related to:: decreased ability to consume or tolerate adequate food and/or fluids due to illness as evidenced by:: estimated intake insufficient to meet requirements Nutrition Diagnostic Statement Progress: New diagnostic statement established Nutrition Intervention: Meals and snacks: Education needed: Cardiac Diet Education Provided: Prior to Discharge;Not appropriate (09/20/25 0800) Monitoring: GI, PO intake, WT, labs, medications Monitor per nutrition guidelines. Evaluation: Nutrition Goal: Total intake will meet estimated nutrient needs Nutrition Goal Timeframe: Throughout stay Nutrition Goal Progress: New goal established Cassie Boo MS, RD/RDN, LD [employer] [id number] AL HUMANE AGENT SUPERVISOR * Clara Lorenzo LMSW - 09/20/2025 7:48 AM CSTAssociated Order(s): IP CONSULT TO PHYSICAL MED AND REHAB [facility] Rehab has initiated an evaluation per consult order. Will follow for PT/OT evaluations for possible admission to acute rehab upon discharge. Thank you for the referral! 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 The patient presented with confusion, expressive aphasia and chronic left-sided weakness from prior stroke in 2024. In ED, blood pressure was 122/69 mmHg, labs were significant for serum sodium 140 mmol/L, potassium-3.7 mmol/L, CO2-29 mmol/L, BUN-43 mg/dL and creatinine- 9.40 mg/dL. CT head was negative for any evidence of acute hemorrhage, herniation or large territorial infarct. 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 Dialysis Center: [facility] Dialysis Days: MWF Date if last dialysis:09/18 Access: R-IJ Permcath Dialysis Duration: 3 Hours 30 Minutes Physicist [place]: Dr Colmenares The patient is consulted for maintenance hemodialysis. Review of Systems Unable to obtain as the patient is confused and disoriented. Past Medical History[1] Past Surgical History[2] Family History[3] Social History: Social History Socioeconomic History Marital status: Single Spouse name: Not on file Number of children: Not on file Years of education: Not on file Highest education level: Not on file Occupational History Not on file Tobacco Use Smoking status: Never Smokeless tobacco: Never Vaping Use Vaping status: Never Used Substance and Sexual Activity Alcohol use: Not Currently Drug use: Never Sexual activity: Not on file Other Topics Concern Not on file Social History Narrative Not on file Social Drivers of Health Financial Resource Strain: Low Risk (09/18/2025) Received from [facility] Overall Financial Resource Strain (CARDIA) How hard is it for you to pay for the very basics like food, housing, medical care, and heating?: Not hard at all Food Insecurity: No Food Insecurity (09/18/2025) Received from [facility] Hunger Vital Sign Within the past 12 months, you worried that your food would run out before you got the money to buymore.: Never true Within the past 12 months, the food you bought just didn't last and you didn't have money to get more.: Never true Transportation Needs: Patient Declined (09/18/2025) Received from [facility] PRAPARE - Transportation In the past 12 months, has lack of transportation kept you from medical appointments or from getting medications?: Patient declined In the past 12 months, has lack of transportation kept you from meetings, work, or from getting things needed for daily living?: Patient declined Stress: Patient Declined (09/18/2025) Received from [facility] [employer] - Occupational Stress Questionnaire Do you feel stress - tense, restless, nervous, or anxious, or unable to sleep at night because yourmind is troubled all the time - these days?: Patient declined Intimate Partner Violence: Not At Risk (09/18/2025) Received from [facility] Humiliation, Afraid, Rape, and Kick questionnaire Within the last year, have you been afraid of your partner or ex-partner?: No Within the last year, have you been humiliated or emotionally abused in other ways by your partner or ex-partner?: No Within the last year, have you been kicked, hit, slapped, or otherwise physically hurt by your partner or ex-partner?: No Within the last year, have you been raped or forced to have any kind of sexual activity by your partner or ex-partner?: No Housing Stability: Low Risk (09/18/2025) Received from [facility] Housing Stability Vital Sign In the last 12 months, was there a time when you were not able to pay the mortgage or rent on time?: No In the past 12 months, how many times have you moved where you were living?: 0 At any time in the past 12 months, were you homeless or living in a nursing home (including now)?: No Allergies: Allergies[4] Home Medications: Medications Ordered Prior to Encounter[5] Hospital Medications: Medications[6] Medications[7] Physical Exam: BP 131/66 (BP Location: Left arm, Patient Position: Lying) Pulse 85 Temp 98.1 ??F (36.7 ??C) (Oral) Resp 18 SpO2 100% Intake/Output Summary (Last 24 hours) at 09/20/2025 0832 Last data filed at 09/20/2025 0829 Gross per 24 hour Intake 0 ml Output 0 ml Net 0 ml Physical Exam Constitutional: Appearance: Normal appearance. Comments: Drowsy, arousable with verbal stimuli, disoriented Cardiovascular: Rate and Rhythm: Normal rate. Heart sounds: Normal heart sounds. Pulmonary: Effort: Pulmonary effort is normal. Breath sounds: Normal breath sounds. Abdominal: Palpations: Abdomen is soft. Musculoskeletal: Right lower leg: No edema. Left lower leg: No edema. Neurological: Mental Status: She is disoriented. Dialysis access: R-IJ Permcath LABS: Recent Labs Component Name 09/20/2541105/13/2571905/12/25 0623 NA 140 140 131* 128* POTASSIUM 3.7 3.7 4.5 4.3 CL 95* 95* 98 94* CO2 29 29 24 29 BUN 43* 43* 26 16 CREATININE 9.14* 9.14* 7.05* 5.41* Recent Labs Component Name 09/20/2541105/13/2571905/12/25 0623 CALCIUM 10.7* 10.7* 7.7* 7.8* PHOS 6.6* 3.2 3.3 ALB 3.5 2.1* 2.2* Recent Labs Component Name 09/20/2541104/29/2511404/29/25 0114 PTHINTACT 1,836.5* - - [id number] - - 17.8* - = values in this interval not displayed. Recent Labs Component Name 04/29/25114 HGBA1C 4.5 EAG 82 Recent Labs Component Name 09/20/2541105/13/2571905/12/25 0623 WBC 8.8 8.8 7.6 7.4 HGB 11.4* 11.4* 7.3* 7.3* Recent Labs Component Name 04/28/25 0940 IRON 99 TIBC 118* FERRITIN 1,497* IMAGING: MRI Angio Neck Wo Contrast Result Date: 09/19/2025 IMPRESSION: 1. 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 The superior aspect of the left intracranial vertebral artery also appears occluded. 2. Nonvisualization of an anterior left MCA M2 branch as well as attenuated appearance of the remaining left MCA vasculature beyond the M1-M2 bifurcation. 3. Given impression 1 and 2 above, interventional neurology consultation is recommended. 4. Moderate focal stenosis of the right intracranial vertebral artery. 5. No high-grade stenosis or proximalvessel occlusion in the neck. Impression 1-3 were sent to hospitalist on-call by Dr. Douglas via [employer] at 09/19/2025 6:54 PM (central time). Referred By: Interpreted By: Micheal Douglas MD, 09/19/2025 6:42 PM MRI Angio Brain Art Bill Wo Cont Result Date: 09/19/2025 IMPRESSION: 1. 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 The superior aspect of the left intracranial vertebral artery also appears occluded. 2. Nonvisualization of an anterior left MCA M2 branch as well as attenuated appearance of the remaining left MCA vasculature beyond the M1-M2 bifurcation. 3. Given impression 1 and 2 above, interventional neurology consultation is recommended. 4. Moderate focal stenosis of the right intracranial vertebral artery. 5. No high-grade stenosis or proximal vessel occlusion in the neck. Impression 1-3 were sent to hospitalist on-call by Dr. oDuglas via [employer] at 09/19/2025 6:54 PM (central time). Referred By: Interpreted By: Micheal Douglas MD, 09/19/2025 6:42 PM MRI Brain Wo Contrast Result Date: 09/18/2025 IMPRESSION: 1. Focal ovoid restricted diffusion within the subcortical white matter of the left frontal lobe that may represent an acute infarct. Suggestion of some cortical sparing which is somewhatatypical, therefore recommend MRI brain exam with contrast follow-up in 4-6 weeks unless symptoms warrant sooner characterization. 2. Mild chronic small vessel ischemic change. 3. 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 Ordered By: DALJIT Phelanally Signed By: Jarod Vega MD on 09/18/2025 9:06 AM Interpreted By: Jarod Vega MD, 09/18/2025 9:02 AM Findings delivered to [facility] via [employer] secure messaging at the time of dictation. CT Head Wo Contrast Result Date: 09/17/2025 IMPRESSION: 1. No acute intracranial findings. If there is persistent clinical concern for acute ischemia, brain MRI is more sensitive. 2. Chronic microvascular change and multifocal chronic infarct/encephalomalacia as above. Referred By: Interpreted By: Micheal Douglas MD, 09/17/2025 7:39 PM XR Chest 1Vw Portable Result Date: 09/17/2025 IMPRESSION: No acute findings. Ordered By: [facility] Interpreted By: Charbel Izquierdo MD, 09/17/2025 6:45 PM ASSESSMENT # ESRD on maintenance hemodialysis MWF -Access: R-IJ Permcath -Last HD on 09/18 -[id number] mmol/L -Electrolytes: Na-140 mmol/L, K-3.7 mmol/L -Volume Status: Euvolemic # Chronic kidney disease-mineral and bone disorder (CKD-MBD) -Ca-10.7 mg/dl, P-6.6 mg/dl -Alb-3.5 g/dl -PTH-1836.5 pg/ml -Vitamin D-17.8 ng/ml -On Sensipar 30 mg daily as outpatient # Anemia of chronic kidney disease -Hb-11.4 g/dl-at goal -Ferritin-1497 ng/ml, TSAT-84% -Transfuse if Hb < 7 g/dl -No need for MARCO or iron for now # Hypertension -BP-131/66 mmHg -Home medications: Carvedilol 12.5 mg twice daily -Monitor blood pressure, resume home antihypertensives and advance doses as necessary RECOMMENDATIONS -Please start renal vitamins -Please resume Sensipar 30 mg daily -Will hold off of dialysis today as the patient does not need urgent hemodialysis -Will continue to monitor while inpatient Patient will be seen and discussed with attending physician, Dr. Benson. Lalo Sen MD Nephrology Fellow [1] Past Medical History: Diagnosis Date Acute renal failure Anemia CKD (chronic kidney disease) DM (diabetes mellitus), type 2 (HCC) HTN (hypertension) [2] Past Surgical History: Procedure Laterality Date ELECTROPHYSIOLOGIC STUDY N/A 05/10/2025 N/A; Loop Recorder Implant ENDOMETRIAL BIOPSY 05/06/2025 [3] No family history on file. [4] Allergies Allergen Reactions Lactose GI Discomfort [5] No current facility-administered medications on file prior to encounter. Current Outpatient Medications on File Prior to Encounter Medication Sig Dispense Refill acetaminophen (Tylenol) 325 MG tablet Take 2 (two) tablets by mouth every 6 hours as needed Maximumallowable Acetaminophen amount = 4 Grams (4000 mg) / 24 hours. aspirin (Aspirin) 81 MG chew tablet Take 1 (one) tablet by mouth once daily (chew and swallow) atorvastatin (Lipitor) 40 MG tablet Take 1 (one) tablet by mouth at bedtime carvedilol (Coreg) 12.5 MG tablet Take 1 (one) tablet by mouth 2 times daily with morning and evening meal cinacalcet (Sensipar) 30 MG tablet Take 1 (one) tablet by mouth daily with breakfast clopidogrel (plaVIX) 75 MG tablet Take 1 (one) tablet by mouth once daily folic acid (Folvite) 1 MG tablet Take 1 (one) tablet by mouth once daily OneTouch Verio test strip Use 1 (one) strip 4 times daily venlafaxine XR 24hr (Effexor XR) 150 MG capsule Take 1 (one) capsule by mouth daily with dinner [6] 0.9% NaCl 3 mL Intracatheter q8h aspirin 81 mg Oral QDAY atorvastatin 80 mg Oral AT BEDTIME carvedilol 12.5 mg Oral BID WC clopidogrel 75 mg Oral QDAY heparin 5,000 Units Subcutaneous q8h insulin aspart 0-12 Units Subcutaneous TID WC senna-docusate 1 tablet Oral QDAY venlafaxine XR 24hr 150 mg Oral QDAY WITH DINNER [7] Cosigned by Sierra Benson MD at 09/20/2025 12:19 PM ANIMAL HUMANE AGENT SUPERVISOR AL HUMANE AGENT SUPERVISOR AL HUMANE AGENT SUPERVISOR Associated attestation - Sierra Benson MD - 09/20/2025 12:19 PM ANIMAL HUMANE AGENT SUPERVISOR The patient was seen and examined with the house staff. Please see further details in the house staff note. I have reviewed the house staff note and agree with its contents and plan of care in addition to what I note below: Patient is known end-stage kidney disease and on regular hemodialysis Tuesday schedule through a right IJ tunneled dialysis catheter, her last hemodialysis treatment was 09/18/2025 and she is here being evaluated for possibility of acute stroke. There is no urgent indication for hemodialysis today with a potassium of 3.7 CO2 of 29 and oxygenating well with euvolemia, we have planned provide hemodialysis tomorrow. Patient has multi other comorbid conditions including history of hypertension, type 2 diabetes mellitus, right breast cancer, compression fracture of T9, thyroid nodule, history of CVA. She does have hypercalcemia which could be tertiary hyperparathyroidism however other causes has devi ruled out. We will initiate patient on cinacalcet 60 mg daily whenever she is able to swallow. documented in this encounter Miscellaneous Notes * ACP (Advance Care Planning) - Kimberley Mukherjee MD - 09/20/2025 9:06 AM ANIMAL HUMANE AGENT SUPERVISOR Advance Care Planning Goals of Care A voluntary discussion was had with the power of family law attorney for health care regarding goals of care. Current active code status NO CPR(DNR) NO INTUBATION Discussion Discussed code status with patient's cousin Adry Smith who holds power of family law attorney-she states that patient has been fluctuating somewhat in her opinion regarding code status but the last time he Adry spoke with her she had stated that she would not want either CPR or intubation. Cosigned by Tae Fisher MD at 09/25/2025 10:04 AM ANIMAL HUMANE AGENT SUPERVISOR AL HUMANE AGENT SUPERVISOR AL HUMANE AGENT SUPERVISOR documented in this encounter Plan of Treatment Upcoming Encounters Date Type Department Care Team (Late st Contact Info) Description 10/31/2025 1:00 AM ANIMAL HUMANE AGENT SUPERVISOR Clinical Support [facility] - Cardiology [address], [address] [address] 11/21/2025 10:30 AM ANIMAL HUMANE AGENT SUPERVISOR Office Visit [facility] - Neurology [address] [facility] [address] [place] [address] Debi Carmen PA-C [address] [facility] [address] [place] [address] 12/05/2025 1:00 AM ANIMAL HUMANE AGENT SUPERVISOR Clinical Support [facility] - Cardiology [address], [address] [address] 01/09/2026 1:00 AM CDT Clinical Support [facility] - Cardiology [address] [facility], [address] [address] 02/13/2026 1:00 AM CDT Clinical Support [facility] - Cardiology [address] [facility], [address] [address] 03/20/2026 1:00 AM CDT Clinical Support [facility] - Cardiology [address] [facility], [address] [address] Scheduled Orders Name Type Priority Associated Diagnoses Order Schedule ECHO TRANSTHORACIC W BUBBLE STUDY Echocardiography Cupid Routine Ischemic stroke (HCC) Acute encephalopathy ONCE for 1 Occurrences starting 09/19/2025 until 09/19/2025 CYTOLOGY NON-SLIP CASTER PANEL (STL) Pathology Cytology STAT Ischemic stroke (HCC) ONCE for 1 Occurrences starting 09/22/2025 until 09/22/2025 FLOW CYTOMETRY BODY FLUID Pathology Cytology Routine Ischemic stroke (HCC) ONCE for 1 Occurrences starting 09/22/2025 until 09/22/2025 Scheduled Referrals Name Type Priority Associated Diagnoses Orde r Schedule Ref to ENT Otolaryngology - [facility] Outpatient Referral Routine Secondary hyperparathyroidism (HCC) 1 Occurrences starting 09/24/2025 until 09/24/2026 Ref to Nephrology - [facility] Outpatient Referral Routine Secondary hyperparathyroidism (HCC) 1 Occurrences starting 09/24/2025 until 09/24/2026 Ref to ENT Otolaryngology - [facility] Outpatient Referral Routine Secondary hyperparathyroidism (HCC) 1 Occurrences starting 09/30/2025 until 09/30/2026 documented as of this encounter Procedures Procedure Name Priority Date/Time Associated Diagnosis Comments GLUCOSE - POINT OF CARE Routine 09/30/2025 9:06 PM ANIMAL HUMANE AGENT SUPERVISOR CBC W/O DIFFERENTIAL Routine 09/30/2025 6:51 PM ANIMAL HUMANE AGENT SUPERVISOR BASIC METABOLIC PANEL (CALCIUM TOTAL) Routine 09/30/2025 6:51 PM ANIMAL HUMANE AGENT SUPERVISOR GLUCOSE - POINT OF CARE Routine 09/30/2025 5:12 PM ANIMAL HUMANE AGENT SUPERVISOR CBC W/O DIFFERENTIAL Routine 09/30/2025 4:10 PM ANIMAL HUMANE AGENT SUPERVISOR BASIC METABOLIC PANEL (CALCIUM TOTAL) Routine 09/30/2025 4:10 PM ANIMAL HUMANE AGENT SUPERVISOR GLUCOSE - POINT OF CARE Routine 09/30/2025 11:50 AM ANIMAL HUMANE AGENT SUPERVISOR GLUCOSE - POINT OF CARE Routine 09/30/2025 8:32 AM ANIMAL HUMANE AGENT SUPERVISOR GLUCOSE - POINT OF CARE Routine 09/29/2025 9:22 PM ANIMAL HUMANE AGENT SUPERVISOR GLUCOSE - POINT OF CARE Routine 09/29/2025 5:33 PM ANIMAL HUMANE AGENT SUPERVISOR GLUCOSE - POINT OF CARE Routine 09/29/2025 1:00 PM ANIMAL HUMANE AGENT SUPERVISOR GLUCOSE - POINT OF CARE Routine 09/28/2025 10:26 PM ANIMAL HUMANE AGENT SUPERVISOR CBC W/O DIFFERENTIAL Routine 09/28/2025 6:47 PM ANIMAL HUMANE AGENT SUPERVISOR BASIC METABOLIC PANEL (CALCIUM TOTAL) Routine 09/28/2025 6:47 PM ANIMAL HUMANE AGENT SUPERVISOR GLUCOSE - POINT OF CARE Routine 09/28/2025 4:47 PM ANIMAL HUMANE AGENT SUPERVISOR HEMODIALYSIS INPATIENT Routine 09/28/2025 12:17 PM ANIMAL HUMANE AGENT SUPERVISOR GLUCOSE - POINT OF CARE Routine 09/28/2025 12:06 PM ANIMAL HUMANE AGENT SUPERVISOR GLUCOSE - POINT OF CARE Routine 09/28/2025 8:07 AM ANIMAL HUMANE AGENT SUPERVISOR GLUCOSE - POINT OF CARE Routine 09/27/2025 9:14 PM ANIMAL HUMANE AGENT SUPERVISOR CBC W/O DIFFERENTIAL Routine 09/27/2025 6:28 PM ANIMAL HUMANE AGENT SUPERVISOR BASIC METABOLIC PANEL (CALCIUM TOTAL) Routine 09/27/2025 6:28 PM ANIMAL HUMANE AGENT SUPERVISOR GLUCOSE - POINT OF CARE Routine 09/27/2025 5:36 PM ANIMAL HUMANE AGENT SUPERVISOR GLUCOSE - POINT OF CARE Routine 09/27/2025 5:05 PM ANIMAL HUMANE AGENT SUPERVISOR GLUCOSE - POINT OF CARE Routine 09/27/2025 12:02 PM ANIMAL HUMANE AGENT SUPERVISOR GLUCOSE - POINT OF CARE Routine 09/26/2025 9:28 PM ANIMAL HUMANE AGENT SUPERVISOR CBC W/O DIFFERENTIAL Routine 09/26/2025 6:23 PM ANIMAL HUMANE AGENT SUPERVISOR BASIC METABOLIC PANEL (CALCIUM TOTAL) Routine 09/26/2025 6:23 PM ANIMAL HUMANE AGENT SUPERVISOR HEMODIALYSIS INPATIENT Routine 09/26/2025 4:23 PM ANIMAL HUMANE AGENT SUPERVISOR GLUCOSE - POINT OF CARE Routine 09/26/2025 4:09 PM ANIMAL HUMANE AGENT SUPERVISOR GLUCOSE - POINT OF CARE Routine 09/26/2025 12:02 PM ANIMAL HUMANE AGENT SUPERVISOR GLUCOSE - POINT OF CARE Routine 09/26/2025 8:11 AM ANIMAL HUMANE AGENT SUPERVISOR GLUCOSE - POINT OF CARE Routine 09/25/2025 9:39 PM ANIMAL HUMANE AGENT SUPERVISOR CBC W/O DIFFERENTIAL Routine 09/25/2025 6:49 PM ANIMAL HUMANE AGENT SUPERVISOR BASIC METABOLIC PANEL (CALCIUM TOTAL) Routine 09/25/2025 6:49 PM ANIMAL HUMANE AGENT SUPERVISOR GLUCOSE - POINT OF CARE Routine 09/25/2025 11:21 AM ANIMAL HUMANE AGENT SUPERVISOR EKG 12-LEAD Routine 09/25/2025 9:34 AM ANIMAL HUMANE AGENT SUPERVISOR Acute encephalopathy GLUCOSE - POINT OF CARE Routine 09/25/2025 7:33 AM ANIMAL HUMANE AGENT SUPERVISOR HEMODIALYSIS INPATIENT Routine 09/25/2025 5:11 AM ANIMAL HUMANE AGENT SUPERVISOR GLUCOSE - POINT OF CARE Routine 09/24/2025 9:06 PM ANIMAL HUMANE AGENT SUPERVISOR CBC W/O DIFFERENTIAL Routine 09/24/2025 6:37 PM ANIMAL HUMANE AGENT SUPERVISOR BASIC METABOLIC PANEL (CALCIUM TOTAL) Routine 09/24/2025 6:37 PM ANIMAL HUMANE AGENT SUPERVISOR GLUCOSE - POINT OF CARE Routine 09/24/2025 4:04 PM ANIMAL HUMANE AGENT SUPERVISOR GLUCOSE - POINT OF CARE Routine 09/24/2025 12:16 PM ANIMAL HUMANE AGENT SUPERVISOR GLUCOSE - POINT OF CARE Routine 09/24/2025 9:28 AM ANIMAL HUMANE AGENT SUPERVISOR CBC W/O DIFFERENTIAL Routine 09/24/2025 3:58 AM ANIMAL HUMANE AGENT SUPERVISOR BASIC METABOLIC PANEL (CALCIUM TOTAL) Routine 09/24/2025 3:58 AM ANIMAL HUMANE AGENT SUPERVISOR GLUCOSE - POINT OF CARE Routine 09/23/2025 8:29 PM ANIMAL HUMANE AGENT SUPERVISOR GLUCOSE - POINT OF CARE Routine 09/23/2025 4:23 PM ANIMAL HUMANE AGENT SUPERVISOR GLUCOSE - POINT OF CARE Routine 09/23/2025 12:31 PM ANIMAL HUMANE AGENT SUPERVISOR ERYTHROCYTE SEDIMENTATION RATE Routine 09/22/2025 11:39 PM ANIMAL HUMANE AGENT SUPERVISOR CBC W/O DIFFERENTIAL Routine 09/22/2025 11:39 PM ANIMAL HUMANE AGENT SUPERVISOR BASIC METABOLIC PANEL (CALCIUM TOTAL) Routine 09/22/2025 11:39 PM ANIMAL HUMANE AGENT SUPERVISOR GLUCOSE - POINT OF CARE Routine 09/22/2025 10:06 PM ANIMAL HUMANE AGENT SUPERVISOR GLUCOSE - POINT OF CARE Routine 09/22/2025 9:09 PM ANIMAL HUMANE AGENT SUPERVISOR HEMODIALYSIS INPATIENT Routine 09/22/2025 5:38 PM ANIMAL HUMANE AGENT SUPERVISOR GLUCOSE - POINT OF CARE Routine 09/22/2025 4:00 PM ANIMAL HUMANE AGENT SUPERVISOR GLUCOSE - POINT OF CARE Routine 09/22/2025 11:54 AM ANIMAL HUMANE AGENT SUPERVISOR GLUCOSE - POINT OF CARE Routine 09/22/2025 8:06 AM ANIMAL HUMANE AGENT SUPERVISOR CBC W/O DIFFERENTIAL Routine 09/22/2025 4:37 AM ANIMAL HUMANE AGENT SUPERVISOR BASIC METABOLIC PANEL (CALCIUM TOTAL) Routine 09/22/2025 4:37 AM ANIMAL HUMANE AGENT SUPERVISOR GLUCOSE - POINT OF CARE Routine 09/21/2025 8:34 PM ANIMAL HUMANE AGENT SUPERVISOR GLUCOSE - POINT OF CARE Routine 09/21/2025 12:23 PM ANIMAL HUMANE AGENT SUPERVISOR GLUCOSE - POINT OF CARE Routine 09/21/2025 7:46 AM ANIMAL HUMANE AGENT SUPERVISOR HEPATITIS B SURFACE ANTIBODY QUANT STAT 09/21/2025 6:27 AM ANIMAL HUMANE AGENT SUPERVISOR HEPATITIS B SURFACE ANTIGEN W RFLX CONFIRMATION STAT 09/21/2025 6:27 AM ANIMAL HUMANE AGENT SUPERVISOR ANCA VASCULITIS PANEL AM Draw 09/21/2025 4:36 AM ANIMAL HUMANE AGENT SUPERVISOR C-REACTIVE PROTEIN AM Draw 09/21/2025 4: 36 AM ANIMAL HUMANE AGENT SUPERVISOR LEX BLOOD SCREEN W/REFLEX TITER AM Draw 09/21/2025 4:36 AM ANIMAL HUMANE AGENT SUPERVISOR SS-A/SS-B (SJOGREN'S) ANTIBODY PANEL AM Draw 09/21/2025 4:36 AM ANIMAL HUMANE AGENT SUPERVISOR PTH RELATED PEPTIDE AM Draw 09/21/2025 4 :36 AM ANIMAL HUMANE AGENT SUPERVISOR VITAMIN D 1,25 DIHYDROXY AM Draw 09/21/2025 4:36 AM ANIMAL HUMANE AGENT SUPERVISOR VITAMIN D 25-HYDROXY AM Draw 09/21/2025 4:36 AM ANIMAL HUMANE AGENT SUPERVISOR BASIC METABOLIC PANEL (CALCIUM TOTAL) Routine 09/21/2025 4:36 AM ANIMAL HUMANE AGENT SUPERVISOR CALCIUM IONIZED WHOLE BLOOD AM Draw 09/21/2025 4:35 AM ANIMAL HUMANE AGENT SUPERVISOR XR ABDOMEN KUB PORTABLE STAT 09/20/2025 11:44 PM ANIMAL HUMANE AGENT SUPERVISOR Ischemic stroke (HCC) GLUCOSE - POINT OF CARE Routine 09/20/2025 11:06 PM ANIMAL HUMANE AGENT SUPERVISOR GLUCOSE - POINT OF CARE Routine 09/20/2025 9:07 PM ANIMAL HUMANE AGENT SUPERVISOR GLUCOSE - POINT OF CARE Routine 09/20/2025 6:24 PM ANIMAL HUMANE AGENT SUPERVISOR HEMODIALYSIS INPATIENT Routine 09/20/2025 4:36 PM ANIMAL HUMANE AGENT SUPERVISOR GLUCOSE - POINT OF CARE Routine 09/20/2025 4:21 PM ANIMAL HUMANE AGENT SUPERVISOR GLUCOSE - POINT OF CARE Routine 09/20/2025 3:51 PM ANIMAL HUMANE AGENT SUPERVISOR HEMODIALYSIS INPATIENT Routine 09/20/2025 2:56 PM ANIMAL HUMANE AGENT SUPERVISOR IR CAROTID CEREBRAL ANGIOGRAM STAT 09/20/2025 11:28 AM ANIMAL HUMANE AGENT SUPERVISOR Ischemic stroke (HCC) XR CHEST 1VW Routine 09/20/2025 9:10 AM ANIMAL HUMANE AGENT SUPERVISOR ESRD (end stage renal disease) (HCC) GLUCOSE - POINT OF CARE Routine 09/20/2025 8:09 AM ANIMAL HUMANE AGENT SUPERVISOR TROPONIN-I HIGH SENSITIVE REFLEX 1HOUR Timed 09/20/2025 5:42 AM ANIMAL HUMANE AGENT SUPERVISOR TROPONIN-I HIGH SENSITIVE BASELINE + 1HR STAT 09/20/2025 4:12 AM ANIMAL HUMANE AGENT SUPERVISOR PTH INTACT W/O CALCIUM STAT 09/20/2025 4:12 AM ANIMAL HUMANE AGENT SUPERVISOR HEMOGLOBIN A1C Routine 09/20/2025 4:12 AM ANIMAL HUMANE AGENT SUPERVISOR CBC W AUTO DIFFERENTIAL STAT 09/20/2025 4:12 AM ANIMAL HUMANE AGENT SUPERVISOR CBC W/O DIFFERENTIAL Routine 09/20/2025 4:12 AM ANIMAL HUMANE AGENT SUPERVISOR BASIC METABOLIC PANEL (CALCIUM TOTAL) Routine 09/20/2025 4:12 AM ANIMAL HUMANE AGENT SUPERVISOR COMPREHENSIVE METABOLIC PANEL STAT 09/20/2025 4:12 AM ANIMAL HUMANE AGENT SUPERVISOR PHOSPHORUS BLOOD STAT 09/20/2025 4:12 AM ANIMAL HUMANE AGENT SUPERVISOR MAGNESIUM BLOOD STAT 09/20/2025 4:12 AM ANIMAL HUMANE AGENT SUPERVISOR LIPID PROFILE Routine 09/20/2025 4:12 AM ANIMAL HUMANE AGENT SUPERVISOR CT HEAD WO CONTRAST STAT 09/19/2025 1 1:52 PM ANIMAL HUMANE AGENT SUPERVISOR Ischemic stroke (HCC) Acute encephalopathy documented in this encounter Results * (ABNORMAL) GLUCOSE - POINT OF CARE (09/30/2025 9:06 PM ANIMAL HUMANE AGENT SUPERVISOR) Glucose WB/POC 198(H) 70 - 99 mg/dL 09/30/2025 9:08 PM ANIMAL HUMANE AGENT SUPERVISOR [facility] Specimen Type Arterial/C apillary 09/30/2025 9:08 PM ANIMAL HUMANE AGENT SUPERVISOR [facility] Blood BLOOD SPECIMEN / Unknown 09/30/2025 9:06 PM ANIMAL HUMANE AGENT SUPERVISOR 09/30/2025 9:08 PM ANIMAL HUMANE AGENT SUPERVISOR us Cherelle Islas DO LAB - POINT OF CARE ORDERABL ES Final Result [address] [address], [facility] [phone] * (ABNORMAL) CBC W/O DIFFERENTIAL (09/30/2025 6:51 PM ANIMAL HUMANE AGENT SUPERVISOR) WBC 14.5(H) 4.0 - 10.7 x10E9/L 09/30/2025 8:01 PM [facility] RBC Count 4.77 3.90 - 5.20 x10E12/L 09/30/2025 8:01 PM [facility] Hemoglobin 13.8 11.9 - 15.8 g/dL 09/30/2025 8:01 PM [facility] Hematocrit 42.5 34.8 - 46.1 % 09/30/2025 8:01 PM [facility] MCV 89.1 80.0 - 98.0 fL 09/30/2025 8:01 PM [facility] MCH 28.9 26.7 - 33.6 pg 09/30/2025 8:01 PM [facility] MCHC 32.5 31.7 - 36.3 g/dL 09/30/2025 8:01 PM [facility] RDW-CV 15.1(H) 11.3 - 14.8 % 09/30/2025 8:01 PM [facility] Platelet Count 265 150 - 420 x10E9/L 09/30/2025 8:01 PM [facility] MPV 11.6(H) 7.8 - 11.4 fL 09/30/2025 8:01 PM [facility] Blood BLOOD SPECIMEN / Unknown Lab Venipuncture / Unknown 09/30/2025 6:51 PM ANIMAL HUMANE AGENT SUPERVISOR 09/30/2025 7:53 PM ANIMAL HUMANE AGENT SUPERVISOR us Columba Blanc MD LAB - HEMATOLOGY ORDERABLES Final Result [address] [address] [phone] * (ABNORMAL) BASIC METABOLIC PANEL (CALCIUM TOTAL) (09/30/2025 6:51 PM ANIMAL HUMANE AGENT SUPERVISOR) BUN 45(H) 7 - 26 mg/dL 09/30/2025 8:49 PM [facility] Creatinine 8.94(H) 0.56 - 0.96 mg/dL 09/30/2025 8:49 PM [facility] Sodium 136 136 - 145 mmol/L 09/30/2025 8:49 PM [facility] Potassium 4.5 3.5 - 4.5 mmol/L 09/30/2025 8:49 PM [facility] Chloride 97(L) 98 - 107 mmol/L 09/30/2025 8:49 PM [facility] CO2 19(L) 22 - 29 mmol/L 09/30/2025 8:49 PM [facility] Glucose 184(H) 70 - 99 mg/dL 09/30/2025 8:49 PM [facility] Calcium 11.1(H) 8.4 - 10.2 mg/dL 09/30/2025 8:49 PM [facility] Anion Gap 20(H) 6 - 16 09/30/2025 8:49 PM [facility] BUN/Creatinine Ratio 5(L) 7 - 23 09/30/2025 8:49 PM [facility] Osmolality Calculated 298(H) 275 - 295 mOsm/kg 09/30/2025 8:49 PM [facility] eGFR by CKD-EPI 4(L) >=90 mL/min/1.7 3 m2 09/30/2025 8:49 PM [facility] Comment:Estimated Glomerular Filtration Rate (eGFR) calculated using the CKD-EPI Creatinine Equation (2020), per the National Kidney Foundation and [place] [employer]ph[employer] recommendations. Blood BLOOD SPECIMEN / Unknown Lab Venipuncture / Unknown 09/30/2025 6:51 PM ANIMAL HUMANE AGENT SUPERVISOR 09/30/2025 7:[address] [facility] us Columba Blanc MD LAB - CHEMISTRY ORDERABLES F inal Result [address] [address], [facility] [phone] * (ABNORMAL) GLUCOSE - POINT OF CARE (09/30/2025 5:12 PM ANIMAL HUMANE AGENT SUPERVISOR) [facility] Glucose WB/POC 209(H) 70 - 99 mg/dL 09/30/2025 5:17 PM [facility] Specimen Type Arterial/C apillary 09/30/2025 5:17 PM [facility] Blood BLOOD SPECIMEN / Unknown 09/30/2025 5:12 PM ANIMAL HUMANE AGENT SUPERVISOR 09/30/2025 5:17 PM ANIMAL HUMANE AGENT SUPERVISOR Cherelle Islas DO LAB - POINT OF CARE ORDERABL ES Final Result [address] [address], [facility] [phone] * (ABNORMAL) CBC W/O DIFFERENTIAL (09/30/2025 4:10 PM ANIMAL HUMANE AGENT SUPERVISOR) [facility] WBC 10.2 4.0 - 10.7 x10E9/L 09/30/2025 4:59 PM [facility] RBC Count 4.78 3.90 - 5.20 x10E12/L 09/30/2025 4:59 PM [facility] Hemoglobin 13.9 11.9 - 15.8 g/dL 09/30/2025 4:59 PM [facility] Hematocrit 42.8 34.8 - 46.1 % 09/30/2025 4:59 PM [facility] MCV 89.5 80.0 - 98.0 fL 09/30/2025 4:59 PM [facility] MCH 29.1 26.7 - 33.6 pg 09/30/2025 4:59 PM [facility] MCHC 32.5 31.7 - 36.3 g/dL 09/30/2025 4:59 PM [facility] RDW-CV 15.2(H) 11.3 - 14.8 % 09/30/2025 4:59 PM [facility] Platelet Count 235 150 - 420 x10E9/L 09/30/2025 4:59 PM [facility] MPV 11.6(H) 7.8 - 11.4 fL 09/30/2025 4:59 PM [facility] Blood BLOOD SPECIMEN / Unknown Lab Venipuncture / Unknown 09/30/2025 4:10 PM ANIMAL HUMANE AGENT SUPERVISOR 09/30/2025 4:49 PM ANIMAL HUMANE AGENT SUPERVISOR Columba Blanc MD LAB - HEMATOLOGY ORDERABLES Final Result [facility] [address] [place] [address], [facility] [phone] * (ABNORMAL) BASIC METABOLIC PANEL (CALCIUM TOTAL) (09/30/2025 4:10 PM ANIMAL HUMANE AGENT SUPERVISOR) BUN 40(H) 7 - 26 mg/dL 09/30/2025 5:11 PM [facility] Creatinine 8.70(H) 0.56 - 0.96 mg/dL 09/30/2025 5:11 PM [facility] Sodium 134(L) 136 - 145 mmol/L 09/30/2025 5:11 PM [facility] Potassium 4.7(H) 3.5 - 4.5 mmol/L 09/30/2025 5:11 PM [facility] Chloride 97(L) 98 - 107 mmol/L 09/30/2025 5:11 PM [facility] CO2 20(L) 22 - 29 mmol/L 09/30/2025 5:11 PM [facility] Glucose 215(H) 70 - 99 mg/dL 09/30/2025 5:11 PM [facility] Calcium 11.2(H) 8.4 - 10.2 mg/dL 09/30/2025 5:11 PM [facility] Anion Gap 17(H) 6 - 16 09/30/2025 5:11 PM [facility] BUN/Creatinine Ratio 5(L) 7 - 23 09/30/2025 5:11 PM [facility] Osmolality Calculated 294 275 - 295 mOsm/kg 09/30/2025 5:11 PM [facility] eGFR by CKD-EPI 5(L) >=90 mL/min/1.7 3 m2 09/30/2025 5:11 PM [facility] Comment:Estimated Glomerular Filtration Rate (eGFR) calculated using the CKD-EPI Creatinine Equation (2020), per the National Kidney Foundation and [place] [employer]ph[employer] recommendations. Blood BLOOD SPECIMEN / Unknown Lab Venipuncture / Unknown 09/30/2025 4:10 PM ANIMAL HUMANE AGENT SUPERVISOR 09/30/2025 4:58 PM ANIMAL HUMANE AGENT SUPERVISOR Columba Blanc MD LAB - CHEMISTRY ORDERABLES F inal Result Performing Organization Address City/[facility]/ZIP Co de Phone Number [address] [address], [place] [phone] * (ABNORMAL) GLUCOSE - POINT OF CARE (09/30/2025 11:50 AM ANIMAL HUMANE AGENT SUPERVISOR) Glucose WB/POC 158(H) 70 - 99 mg/dL 09/30/2025 11:55 AM [facility] Specimen Type Arterial/C apillary 09/30/2025 11:55 AM [facility] Blood BLOOD SPECIMEN / Unknown 09/30/2025 11:50 AM [employer]PERVIS[employer] 09/30/2025 11:55 AM [employer]PERVISOR Cherelle Islas DO LAB - POINT OF CARE ORDERABL ES Final Result Performing Organization Address City/[facility]/ZIP Co de Phone Number [address] [address], [place] [phone] * (ABNORMAL) GLUCOSE - POINT OF CARE (09/30/2025 8:32 AM [employer] SUPERVIS[employer]) Glucose WB/POC 139(H) 70 - 99 mg/dL 09/30/2025 8:33 AM [employer] SUPERVISOR [facility] Specimen Type Arterial/C apillary 09/30/2025 8:33 AM [facility] Blood BLOOD SPECIMEN / Unknown 09/30/2025 8:32 AM [employer]PERVIS[employer] 09/30/2025 8:33 AM [employer] SUPERVISOR Cherelle Billadeau DO LAB - POINT OF CARE ORDERABL ES Final Result [address] [address], [place] [phone] * (ABNORMAL) GLUCOSE - POINT OF CARE (09/29/2025 9:22 PM [employer] SUPERVIS[employer]) Glucose WB/POC 123(H) 70 - 99 mg/dL 09/29/2025 9:27 PM [employer]PER[employer] [facility] Specimen Type Arterial/C apillary 09/29/2025 9:27 PM [employer]PER[employer] [facility] Blood BLOOD SPECIMEN / Unknown 09/29/2025 9:22 PM [employer] SUPERVISOR 09/29/2025 9:27 PM [employer] SUPERVISOR Cherelle Billadeau DO LAB - POINT OF CARE ORDERABL ES Final Result Performing Organization Address [facility]/ZIP Co de Phone Number [address] [address], [place] [phone] * (ABNORMAL) GLUCOSE - POINT OF CARE (09/29/2025 5:33 PM [employer] SUPERVISOR) Glucose WB/POC 115(H) 70 - 99 mg/dL 09/29/2025 5:40 PM [employer]PER[employer] [facility] Specimen Type Arterial/C apillary 09/29/2025 5:40 PM [employer]PER[employer] [facility] Blood BLOOD SPECIMEN / Unknown 09/29/2025 5:33 PM [employer] SUPERVISOR 09/29/2025 5:40 PM [employer] SUPERVISOR Cherelle Billadeau DO LAB - POINT OF CARE ORDERABL ES Final Result [address] [address], [place] [phone] * (ABNORMAL) GLUCOSE - POINT OF CARE (09/29/2025 1:00 PM [employer] SUPERVIS[employer]) Glucose WB/POC 149(H) 70 - 99 mg/dL 09/29/2025 1:11 PM [facility] Specimen Type Arterial/C apillary 09/29/2025 1:11 PM [facility] Blood BLOOD SPECIMEN / Unknown 09/29/2025 1:00 PM ANIMAL HUMANE AGENT SUPERVISOR 09/29/2025 1:11 PM ANIMAL HUMANE AGENT SUPERVISOR [facility] DO LAB - POINT OF CARE ORDERABL ES Final Result Performing Organization Address City/[facility]/ZIP Co de Phone Number [address] [address], [facility] [phone] * (ABNORMAL) GLUCOSE - POINT OF CARE (09/28/2025 10:26 PM ANIMAL HUMANE AGENT SUPERVISOR) Pathologist [facility] Glucose WB/POC 197(H) 70 - 99 mg/dL 09/28/2025 10:31 PM [facility] Specimen Type Arterial/C apillary 09/28/2025 10:31 PM [facility] Blood BLOOD SPECIMEN / Unknown 09/28/2025 10:26 PM ANIMAL HUMANE AGENT SUPERVISOR 09/28/2025 10:31 PM ANIMAL HUMANE AGENT SUPERVISOR [facility] Bill[facility] DO LAB - POINT OF CARE ORDERABL ES Final Result Performing Organization Address [facility]/ZIP Co de Phone Number [address] [address], [place] [phone] * (ABNORMAL) CBC W/O DIFFERENTIAL (09/28/2025 6:47 PM ANIMAL HUMANE AGENT SUPERVISOR) WBC 10.6 4.0 - 10.7 x10E9/L 09/28/2025 10:35 PM [facility] RBC Count 4.56 3.90 - 5.20 x10E12/L 09/28/2025 10:35 PM [facility] Hemoglobin 13.6 11.9 - 15.8 g/dL 09/28/2025 10:35 PM [facility] Hematocrit 42.1 34.8 - 46.1 % 09/28/2025 10:35 PM [facility] MCV 92.3 80.0 - 98.0 fL 09/28/2025 10:35 PM [facility] MCH 29.8 26.7 - 33.6 pg 09/28/2025 10:35 PM [facility] MCHC 32.3 31.7 - 36.3 g/dL 09/28/2025 10:35 PM [facility] RDW-CV 15.4(H) 11.3 - 14.8 % 09/28/2025 10:35 PM [facility] Platelet Count 220 150 - 420 x10E9/L 09/28/2025 10:35 PM [facility] MPV 11.4 7.8 - 11.4 fL 09/28/2025 10:35 PM [facility] Blood BLOOD SPECIMEN / Unknown Lab Venipuncture / Unknown 09/28/2025 6:47 PM ANIMAL HUMANE AGENT SUPERVISOR 09/28/2025 10:14 PM ANIMAL HUMANE AGENT SUPERVISOR us Columba Blanc MD LAB - HEMATOLOGY ORDERABLES Final Result Performing Organization Address City/State/[facility] Co de Phone Number [address] [address], [facility] [phone] * (ABNORMAL) BASIC METABOLIC PANEL (CALCIUM TOTAL) (09/28/2025 6:47 PM ANIMAL HUMANE AGENT SUPERVISOR) BUN 35(H) 7 - 26 mg/dL 09/28/2025 11:22 PM [facility] Creatinine 8.15(H) 0.56 - 0.96 mg/dL 09/28/2025 11:22 PM [facility] Comment:QNS for repeat testi ng Sodium 132(L) 136 - 145 mmol/L 09/28/2025 11:22 PM [facility] Potassium 5.1(H) 3.5 - 4.5 mmol/L 09/28/2025 11:22 PM [facility] Chloride 98 98 - 107 mmol/L 09/28/2025 11:22 PM [facility] CO2 13(L) 22 - 29 mmol/L 09/28/2025 11:22 PM [facility] Glucose 118(H) 70 - 99 mg/dL 09/28/2025 11:22 PM [facility] Calcium 10.1 8.4 - 10.2 mg/dL 09/28/2025 11:22 PM [facility] Anion Gap 21(H) 6 - 16 09/28/2025 11:22 PM [facility] BUN/Creatinine Ratio 4(L) 7 - 23 09/28/2025 11:22 PM [facility] Osmolality Calculated 283 275 - 295 mOsm/kg 09/28/2025 11:22 PM [facility] eGFR by CKD-EPI 5(L) >=90 mL/min/1.7 3 m2 09/28/2025 11:22 PM [facility] Comment:Estimated Glomerular Filtration Rate (eGFR) calculated using the CKD-EPI Creatinine Equation (2020), per the National Kidney Foundation and [place] [employer] Neph[employer] recommendations. Blood BLOOD SPECIMEN / Unknown Lab Venipuncture / Unknown 09/28/2025 6:47 PM ANIMAL HUMANE AGENT SUPERVISOR 09/28/2025 10:06 PM ANIMAL HUMANE AGENT SUPERVISOR Columba Blanc MD LAB - CHEMISTRY ORDERABLES F inal Result [address] [address], [place] [phone] * (ABNORMAL) GLUCOSE - POINT OF CARE (09/28/2025 4:47 PM ANIMAL HUMANE AGENT SUPERVISOR) Pathologist [facility] Glucose WB/POC 148(H) 70 - 99 mg/dL 09/28/2025 4:51 PM [facility] Specimen Type Arterial/C apillary 09/28/2025 4:51 PM [facility] Blood BLOOD SPECIMEN / Unknown 09/28/2025 4:47 PM ANIMAL HUMANE AGENT SUPERVISOR 09/28/2025 4:51 PM ANIMAL HUMANE AGENT SUPERVISOR Cherelle Islas DO LAB - POINT OF CARE ORDERABL ES Final Result [address] [address], [place] [phone] * (ABNORMAL) GLUCOSE - POINT OF CARE (09/28/2025 12:06 PM ANIMAL HUMANE AGENT SUPERVISOR) Glucose WB/POC 149(H) 70 - 99 mg/dL 09/28/2025 12:10 PM ANIMAL HUMANE AGENT SUPERVISOR [facility] Specimen Type Arterial/C apillary 09/28/2025 12:10 PM [facility] Blood BLOOD SPECIMEN / Unknown 09/28/2025 12:06 PM ANIMAL HUMANE AGENT SUPERVISOR 09/28/2025 12:10 PM ANIMAL HUMANE AGENT SUPERVISOR Cherelle Billadeau DO LAB - POINT OF CARE ORDERABL ES Final Result Performing Organization Address City/[facility]/ZIP Co de Phone Number [address] [address], [place] [phone] * (ABNORMAL) GLUCOSE - POINT OF CARE (09/28/2025 8:07 AM ANIMAL HUMANE AGENT SUPERVISOR) Glucose WB/POC 115(H) 70 - 99 mg/dL 09/28/2025 8:13 AM [facility] Specimen Type Arterial/C apillary 09/28/2025 8:13 AM [facility] Blood BLOOD SPECIMEN / Unknown 09/28/2025 8:07 AM ANIMAL HUMANE AGENT SUPERVISOR 09/28/2025 8:13 AM ANIMAL HUMANE AGENT SUPERVISOR Cherelleangelique Islas DO LAB - POINT OF CARE ORDERABL ES Final Result Performing Organization Address City/[facility]/ZIP Co de Phone Number [address] [address], [place] [phone] * (ABNORMAL) GLUCOSE - POINT OF CARE (09/27/2025 9:14 PM ANIMAL HUMANE AGENT SUPERVISOR) Glucose WB/POC 125(H) 70 - 99 mg/dL 09/27/2025 9:24 PM ANIMAL HUMANE AGENT SUPERVISOR [facility] Specimen Type Arterial/C apillary 09/27/2025 9:24 PM [facility] Blood BLOOD SPECIMEN / Unknown 09/27/2025 9:14 PM ANIMAL HUMANE AGENT SUPERVISOR 09/27/2025 9:24 PM ANIMAL HUMANE AGENT SUPERVISOR us Cherelle Islas DO LAB - POINT OF CARE ORDERABL ES Final Result Performing Organization Address City/[facility]/ZIP Co de Phone Number [phone] [place] [address], [facility] [phone] * (ABNORMAL) CBC W/O DIFFERENTIAL (09/27/2025 6:28 PM ANIMAL HUMANE AGENT SUPERVISOR) WBC 8.0 4.0 - 10.7 x10E9/L 09/27/2025 7:46 PM [facility] RBC Count 4.46 3.90 - 5.20 x10E12/L 09/27/2025 7:46 PM [facility] Hemoglobin 13.0 11.9 - 15.8 g/dL 09/27/2025 7:46 PM [facility] Hematocrit 40.6 34.8 - 46.1 % 09/27/2025 7:46 PM [facility] MCV 91.0 80.0 - 98.0 fL 09/27/2025 7:46 PM [facility] MCH 29.1 26.7 - 33.6 pg 09/27/2025 7:46 PM [facility] MCHC 32.0 31.7 - 36.3 g/dL 09/27/2025 7:46 PM [facility] RDW-CV 15.6(H) 11.3 - 14.8 % 09/27/2025 7:46 PM [facility] Platelet Count 217 150 - 420 x10E9/L 09/27/2025 7:46 PM [facility] MPV 10.8 7.8 - 11.4 fL 09/27/2025 7:46 PM [facility] Blood BLOOD SPECIMEN / Unknown Lab Venipuncture / Unknown 09/27/2025 6:28 PM ANIMAL HUMANE AGENT SUPERVISOR 09/27/2025 7:[address] [facility] Columba Blanc MD LAB - HEMATOLOGY ORDERABLES Final Result [address] [address], [facility] [phone] * (ABNORMAL) BASIC METABOLIC PANEL (CALCIUM TOTAL) (09/27/2025 6:28 PM ANIMAL HUMANE AGENT SUPERVISOR) BUN 15 7 - 26 mg/dL 09/27/2025 7:59 PM [facility] Creatinine 5.55(H) 0.56 - 0.96 mg/dL 09/27/2025 7:59 PM [facility] Sodium 134(L) 136 - 145 mmol/L 09/27/2025 7:59 PM [facility] Potassium 4.3 3.5 - 4.5 mmol/L 09/27/2025 7:59 PM [facility] Chloride 97(L) 98 - 107 mmol/L 09/27/2025 7:59 PM [facility] CO2 21(L) 22 - 29 mmol/L 09/27/2025 7:59 PM [facility] Glucose 134(H) 70 - 99 mg/dL 09/27/2025 7:59 PM [facility] Calcium 9.9 8.4 - 10.2 mg/dL 09/27/2025 7:59 PM [facility] Anion Gap 16 6 - 16 09/27/2025 7:59 PM [facility] BUN/Creatinine Ratio 3(L) 7 - 23 09/27/2025 7:59 PM [facility] Osmolality Calculated 281 275 - 295 mOsm/kg 09/27/2025 7:59 PM [facility] eGFR by CKD-EPI 8(L) >=90 mL/min/1.7 3 m2 09/27/2025 7:59 PM [facility] Comment:Estimated Glomerular Filtration Rate (eGFR) calculated using the CKD-EPI Creatinine Equation (2020), per the National Kidney Foundation and [place] [employer] Neph[employer] recommendations. Blood BLOOD SPECIMEN / Unknown Lab Venipuncture / Unknown 09/27/2025 6:28 PM ANIMAL HUMANE AGENT SUPERVISOR 09/27/2025 7:[address] [facility] us Columba Blanc MD LAB - CHEMISTRY ORDERABLES F inal Result [facility] [address] [place] [address], [facility] [phone] * GLUCOSE - POINT OF CARE (09/27/2025 5:36 PM ANIMAL HUMANE AGENT SUPERVISOR) Glucose WB/POC 99 70 - 99 mg/dL 09/27/2025 5:40 PM ANIMAL HUMANE AGENT SUPERVISOR [facility] Specimen Type Arterial/C apillary 09/27/2025 5:40 PM ANIMAL HUMANE AGENT SUPERVISOR [facility] Blood BLOOD SPECIMEN / Unknown 09/27/2025 5:36 PM ANIMAL HUMANE AGENT SUPERVISOR 09/27/2025 5:40 PM ANIMAL HUMANE AGENT SUPERVISOR [email or web address] DO LAB - POINT OF CARE ORDERABL ES Final Result [address] [address], [facility] [phone] * GLUCOSE - POINT OF CARE (09/27/2025 5:05 PM ANIMAL HUMANE AGENT SUPERVISOR) Glucose WB/POC 91 70 - 99 mg/dL 09/27/2025 5:06 PM [facility] Specimen Type Arterial/C apillary 09/27/2025 5:06 PM [facility] Blood BLOOD SPECIMEN / Unknown 09/27/2025 5:05 PM ANIMAL HUMANE AGENT SUPERVISOR 09/27/2025 5:06 PM ANIMAL HUMANE AGENT SUPERVISOR discoapiau DO LAB - POINT OF CARE ORDERABL ES Final Result [address] [address], [place] [phone] * (ABNORMAL) GLUCOSE - POINT OF CARE (09/27/2025 12:02 PM ANIMAL HUMANE AGENT SUPERVISOR) Glucose WB/POC 117(H) 70 - 99 mg/dL 09/27/2025 4:50 PM ANIMAL HUMANE AGENT SUPERVISOR [facility] Specimen Type Arterial/C apillary 09/27/2025 4:50 PM [facility] Blood BLOOD SPECIMEN / Unknown 09/27/2025 12:02 PM ANIMAL HUMANE AGENT SUPERVISOR 09/27/2025 4:50 PM ANIMAL HUMANE AGENT SUPERVISOR us Cherelle Billadeau DO LAB - POINT OF CARE ORDERABL ES Final Result [address] [address], [facility] [phone] * (ABNORMAL) GLUCOSE - POINT OF CARE (09/26/2025 9:28 PM ANIMAL HUMANE AGENT SUPERVISOR) Glucose WB/POC 119(H) 70 - 99 mg/dL 09/26/2025 9:32 PM [facility] Specimen Type Arterial/C apillary 09/26/2025 9:32 PM [facility] Blood BLOOD SPECIMEN / Unknown 09/26/2025 9:28 PM ANIMAL HUMANE AGENT SUPERVISOR 09/26/2025 9:32 PM ANIMAL HUMANE AGENT SUPERVISOR Cherelle Billadeau DO LAB - POINT OF CARE ORDERABL ES Final Result Performing Organization Address [facility]/ZIP Co de Phone Number [address] [address], [facility] [phone] * (ABNORMAL) CBC W/O DIFFERENTIAL (09/26/2025 6:23 PM ANIMAL HUMANE AGENT SUPERVISOR) WBC 8.2 4.0 - 10.7 x10E9/L 09/26/2025 8:24 PM [facility] RBC Count 4.14 3.90 - 5.20 x10E12/L 09/26/2025 8:24 PM [facility] Hemoglobin 12.0 11.9 - 15.8 g/dL 09/26/2025 8:24 PM [facility] Hematocrit 37.2 34.8 - 46.1 % 09/26/2025 8:24 PM [facility] MCV 89.9 80.0 - 98.0 fL 09/26/2025 8:24 PM [facility] MCH 29.0 26.7 - 33.6 pg 09/26/2025 8:24 PM [facility] MCHC 32.3 31.7 - 36.3 g/dL 09/26/2025 8:24 PM [facility] RDW-CV 15.7(H) 11.3 - 14.8 % 09/26/2025 8:24 PM [facility] Platelet Count 250 150 - 420 x10E9/L 09/26/2025 8:24 PM [facility] MPV 10.7 7.8 - 11.4 fL 09/26/2025 8:24 PM [facility] Blood BLOOD SPECIMEN / Unknown Lab Venipuncture / Unknown 09/26/2025 6:23 PM ANIMAL HUMANE AGENT SUPERVISOR 09/26/2025 7:27 PM ANIMAL HUMANE AGENT SUPERVISOR us Columba Blanc MD LAB - HEMATOLOGY ORDERABLES Final Result [facility] [address] [place] [address], [facility] [phone] * (ABNORMAL) BASIC METABOLIC PANEL (CALCIUM TOTAL) (09/26/2025 6:23 PM ANIMAL HUMANE AGENT SUPERVISOR) BUN 32(H) 7 - 26 mg/dL 09/26/2025 8:07 PM [facility] Creatinine 8.82(H) 0.56 - 0.96 mg/dL 09/26/2025 8:07 PM [facility] Sodium 138 136 - 145 mmol/L 09/26/2025 8:07 PM [facility] Potassium 4.2 3.5 - 4.5 mmol/L 09/26/2025 8:07 PM [facility] Chloride 99 98 - 107 mmol/L 09/26/2025 8:07 PM [facility] CO2 23 22 - 29 mmol/L 09/26/2025 8:07 PM [facility] Glucose 154(H) 70 - 99 mg/dL 09/26/2025 8:07 PM [facility] Calcium 9.9 8.4 - 10.2 mg/dL 09/26/2025 8:07 PM [facility] Anion Gap 16 6 - 16 09/26/2025 8:07 PM [facility] BUN/Creatinine Ratio 4(L) 7 - 23 09/26/2025 8:07 PM [facility] Osmolality Calculated 296(H) 275 - 295 mOsm/kg 09/26/2025 8:07 PM [facility] eGFR by CKD-EPI 5(L) >=90 mL/min/1.7 3 m2 09/26/2025 8:07 PM [facility] Comment:Estimated Glomerular Filtration Rate (eGFR) calculated using the CKD-EPI Creatinine Equation (2020), per the National Kidney Foundation and [place] [employer] Neph[employer] recommendations. Blood BLOOD SPECIMEN / Unknown Lab Venipuncture / Unknown 09/26/2025 6:23 PM ANIMAL HUMANE AGENT SUPERVISOR 09/26/2025 7:27 PM ANIMAL HUMANE AGENT SUPERVISOR Columba Blanc MD LAB - CHEMISTRY ORDERABLES F inal Result [address] [address], [place] [phone] * (ABNORMAL) GLUCOSE - POINT OF CARE (09/26/2025 4:09 PM ANIMAL HUMANE AGENT SUPERVISOR) Glucose WB/POC 146(H) 70 - 99 mg/dL 09/26/2025 4:14 PM [facility] Specimen Type Arterial/C apillary 09/26/2025 4:14 PM [facility] Blood BLOOD SPECIMEN / Unknown 09/26/2025 4:09 PM ANIMAL HUMANE AGENT SUPERVISOR 09/26/2025 4:14 PM ANIMAL HUMANE AGENT SUPERVISOR Cherelle Islsa DO LAB - POINT OF CARE ORDERABL ES Final Result [address] [address], [place] [phone] * (ABNORMAL) GLUCOSE - POINT OF CARE (09/26/2025 12:02 PM ANIMAL HUMANE AGENT SUPERVISOR) Glucose WB/POC 165(H) 70 - 99 mg/dL 09/26/2025 12:03 PM [facility] Specimen Type Arterial/C apillary 09/26/2025 12:03 PM [facility] Blood BLOOD SPECIMEN / Unknown 09/26/2025 12:02 PM ANIMAL HUMANE AGENT SUPERVISOR 09/26/2025 12:03 PM ANIMAL HUMANE AGENT SUPERVISOR Cherelle Billadeau DO LAB - POINT OF CARE ORDERABL ES Final Result Performing Organization Address City/[facility]/ZIP Co de Phone Number [address] [address], [place] [phone] * (ABNORMAL) GLUCOSE - POINT OF CARE (09/26/2025 8:11 AM ANIMAL HUMANE AGENT SUPERVISOR) Glucose WB/POC 105(H) 70 - 99 mg/dL 09/26/2025 8:13 AM ANIMAL HUMANE AGENT SUPERVISOR [facility] Specimen Type Arterial/C apillary 09/26/2025 8:13 AM ANIMAL HUMANE AGENT SUPERVISOR [facility] Blood BLOOD SPECIMEN / Unknown 09/26/2025 8:11 AM ANIMAL HUMANE AGENT SUPERVISOR 09/26/2025 8:13 AM ANIMAL HUMANE AGENT SUPERVISOR Cherelle Billadeau DO LAB - POINT OF CARE ORDERABL ES Final Result Performing Organization Address [facility]/ZIP Co de Phone Number [address] [address], [place] [phone] * (ABNORMAL) GLUCOSE - POINT OF CARE (09/25/2025 9:39 PM ANIMAL HUMANE AGENT SUPERVISOR) Glucose WB/POC 132(H) 70 - 99 mg/dL 09/25/2025 9:40 PM ANIMAL HUMANE AGENT SUPERVISOR [facility] Specimen Type Arterial/C apillary 09/25/2025 9:40 PM ANIMAL HUMANE AGENT SUPERVISOR [facility] Blood BLOOD SPECIMEN / Unknown 09/25/2025 9:39 PM ANIMAL HUMANE AGENT SUPERVISOR 09/25/2025 9:39 PM ANIMAL HUMANE AGENT SUPERVISOR Cherelle Billadeau DO LAB - POINT OF CARE ORDERABL ES Final Result Performing Organization Address City/[facility]/ZIP Co de Phone Number [address] [address], [place] [phone] * (ABNORMAL) CBC W/O DIFFERENTIAL (09/25/2025 6:49 PM ANIMAL HUMANE AGENT SUPERVISOR) WBC 11.4(H) 4.0 - 10.7 x10E9/L 09/25/2025 9:48 PM [facility] RBC Count 4.15 3.90 - 5.20 x10E12/L 09/25/2025 9:48 PM [facility] Hemoglobin 12.1 11.9 - 15.8 g/dL 09/25/2025 9:48 PM [facility] Hematocrit 37.8 34.8 - 46.1 % 09/25/2025 9:48 PM [facility] MCV 91.1 80.0 - 98.0 fL 09/25/2025 9:48 PM [facility] MCH 29.2 26.7 - 33.6 pg 09/25/2025 9:48 PM [facility] MCHC 32.0 31.7 - 36.3 g/dL 09/25/2025 9:48 PM [facility] RDW-CV 15.7(H) 11.3 - 14.8 % 09/25/2025 9:48 PM [facility] Platelet Count 252 150 - 420 x10E9/L 09/25/2025 9:48 PM [facility] MPV 10.5 7.8 - 11.4 fL 09/25/2025 9:48 PM [facility] Blood BLOOD SPECIMEN / Unknown Lab Venipuncture / Unknown 09/25/2025 6:49 PM ANIMAL HUMANE AGENT SUPERVISOR 09/25/2025 9:02 PM ANIMAL HUMANE AGENT SUPERVISOR Columba Blanc MD LAB - HEMATOLOGY ORDERABLES Final Result Performing Organization Address City/State/[facility] Co de Phone Number [facility] [address] [place] [address], [facility] [phone] * (ABNORMAL) BASIC METABOLIC PANEL (CALCIUM TOTAL) (09/25/2025 6:49 PM ANIMAL HUMANE AGENT SUPERVISOR) BUN 16 7 - 26 mg/dL 09/25/2025 9:49 PM [facility] Creatinine 5.50(H) 0.56 - 0.96 mg/dL 09/25/2025 9:49 PM [facility] Sodium 139 136 - 145 mmol/L 09/25/2025 9:49 PM [facility] Potassium 3.8 3.5 - 4.5 mmol/L 09/25/2025 9:49 PM [facility] Chloride 99 98 - 107 mmol/L 09/25/2025 9:49 PM [facility] CO2 25 22 - 29 mmol/L 09/25/2025 9:49 PM [facility] Glucose 101(H) 70 - 99 mg/dL 09/25/2025 9:49 PM [facility] Calcium 10.0 8.4 - 10.2 mg/dL 09/25/2025 9:49 PM [facility] Anion Gap 15 6 - 16 09/25/2025 9:49 PM [facility] BUN/Creatinine Ratio 3(L) 7 - 23 09/25/2025 9:49 PM [facility] Osmolality Calculated 289 275 - 295 mOsm/kg 09/25/2025 9:49 PM [facility] eGFR by CKD-EPI 8(L) >=90 mL/min/1.7 3 m2 09/25/2025 9:49 PM [facility] Comment:Estimated Glomerular Filtration Rate (eGFR) calculated using the CKD-EPI Creatinine Equation (2020), per the National Kidney Foundation and [place] [employer] Neph[employer] recommendations. Blood BLOOD SPECIMEN / Unknown Lab Venipuncture / Unknown 09/25/2025 6:49 PM ANIMAL HUMANE AGENT SUPERVISOR 09/25/2025 9:01 PM ANIMAL HUMANE AGENT SUPERVISOR Columba Blanc MD LAB - CHEMISTRY ORDERABLES F inal Result [facility] [address] [place] [address], [facility] [phone] * (ABNORMAL) GLUCOSE - POINT OF CARE (09/25/2025 11:21 AM ANIMAL HUMANE AGENT SUPERVISOR) Glucose WB/POC 160(H) 70 - 99 mg/dL 09/25/2025 11:26 AM [facility] Specimen Type Arterial/C apillary 09/25/2025 11:26 AM [facility] Blood BLOOD SPECIMEN / Unknown 09/25/2025 11:21 AM ANIMAL HUMANE AGENT SUPERVISOR 09/25/2025 11:25 AM ANIMAL HUMANE AGENT SUPERVISOR Cherelle Islas DO LAB - POINT OF CARE ORDERABL ES Final Result [facility] [address] [place] [address], [place] [phone] * EKG 12-Lead (09/25/2025 9:34 AM ANIMAL HUMANE AGENT SUPERVISOR) Ventricular Rate 93 BPM [facility] Atrial Rate 93 BPM [facility] P-R Interval 198 ms [facility] QRS Duration ms 78 ms [facility] Q-T Interval ms 350 ms [facility] QTC Calculation (Bezet) 435 ms [facility] Calculated P [place] 64 degrees SL MUSE Calculated R [place] 24 degrees [facility] M[facility] Calculated T [place] 48 degrees [facility] Interpretation EKG NORMAL SINUS RHYTHM LOW VOLTAGE QRS CANNOT RULE OUT INFERIOR INFARCT , AGE UNDETERMINED ABNORMAL ECG NO PREVIOUS ECGS AVAILABLE Confirmed by ARINA SINGH, THERESA SCHNEIDER ([id number]) on 09/29/2025 8:58:47 PM [facility] 09/25/2025 9:3 4 AM ANIMAL HUMANE AGENT SUPERVISOR 09/29/2025 8:58 PM ANIMAL HUMANE AGENT SUPERVISOR Cherelle Islas DO ECG ORDERABLES Edited Resul t - Final Performing Organization Address [facility] Co de Phone Number [facility] * (ABNORMAL) GLUCOSE - POINT OF CARE (09/25/2025 7:33 AM ANIMAL HUMANE AGENT SUPERVISOR) Glucose WB/POC 111(H) 70 - 99 mg/dL 09/25/2025 7:35 AM ANIMAL HUMANE AGENT SUPERVISOR [facility] Specimen Type Arterial/C apillary 09/25/2025 7:35 AM ANIMAL HUMANE AGENT SUPERVISOR [facility] Blood BLOOD SPECIMEN / Unknown 09/25/2025 7:33 AM ANIMAL HUMANE AGENT SUPERVISOR 09/25/2025 7:35 AM ANIMAL HUMANE AGENT SUPERVISOR Columba Blanc MD LAB - POINT OF CARE ORDERABL ES Final Result [address] [address], [facility] [phone] * (ABNORMAL) GLUCOSE - POINT OF CARE (09/24/2025 9:06 PM ANIMAL HUMANE AGENT SUPERVISOR) [facility] Glucose WB/POC 147(H) 70 - 99 mg/dL 09/24/2025 9:11 PM [facility] Specimen Type Arterial/C apillary 09/24/2025 9:11 PM [facility] Blood BLOOD SPECIMEN / Unknown 09/24/2025 9:06 PM [employer] SUPERVISOR 09/24/2025 9:10 PM ANIMAL H[employer] SUPERVISOR Columba Blanc MD LAB - POINT OF CARE ORDERABL ES Final Result [address] [address], [facility] [phone] * (ABNORMAL) CBC W/O DIFFERENTIAL (09/24/2025 6:37 PM ANIMAL HUMANE AGENT SUPERVISOR) [facility] WBC 9.3 4.0 - 10.7 x10E9/L 09/24/2025 7:35 PM [facility] RBC Count 4.20 3.90 - 5.20 x10E12/L 09/24/2025 7:35 PM [facility] Hemoglobin 12.2 11.9 - 15.8 g/dL 09/24/2025 7:35 PM [facility] Hematocrit 37.9 34.8 - 46.1 % 09/24/2025 7:35 PM [facility] MCV 90.2 80.0 - 98.0 fL 09/24/2025 7:35 PM [facility] MCH 29.0 26.7 - 33.6 pg 09/24/2025 7:35 PM [facility] MCHC 32.2 31.7 - 36.3 g/dL 09/24/2025 7:35 PM [facility] RDW-CV 15.9(H) 11.3 - 14.8 % 09/24/2025 7:35 PM [facility] Platelet Count 349 150 - 420 x10E9/L 09/24/2025 7:35 PM [facility] MPV 10.4 7.8 - 11.4 fL 09/24/2025 7:35 PM [facility] Blood BLOOD SPECIMEN / Unknown Lab Venipuncture / Unknown 09/24/2025 6:37 PM ANIM[employer] SUPERVISOR 09/24/2025 7:21 PM ANIMAL H[employer]ANE [employer] SUPERVISOR Columba Blanc MD LAB - HEMATOLOGY ORDERABLES Final Result [facility] [address] [place] [address], [facility] [phone] * (ABNORMAL) BASIC METABOLIC PANEL (CALCIUM TOTAL) (09/24/2025 6:37 PM ANIMAL HUMANE AGENT SUPERVISOR) BUN 29(H) 7 - 26 mg/dL 09/24/2025 7:55 PM [facility] Creatinine 8.57(H) 0.56 - 0.96 mg/dL 09/24/2025 7:55 PM [facility] Sodium 139 136 - 145 mmol/L 09/24/2025 7:55 PM [facility] Potassium 4.1 3.5 - 4.5 mmol/L 09/24/2025 7:55 PM [facility] Chloride 98 98 - 107 mmol/L 09/24/2025 7:55 PM [facility] CO2 26 22 - 29 mmol/L 09/24/2025 7:55 PM [facility] Glucose 131(H) 70 - 99 mg/dL 09/24/2025 7:55 PM [facility] Calcium 10.4(H) 8.4 - 10.2 mg/dL 09/24/2025 7:55 PM [facility] Anion Gap 15 6 - 16 09/24/2025 7:55 PM [facility] BUN/Creatinine Ratio 3(L) 7 - 23 09/24/2025 7:55 PM [facility] Osmolality Calculated 296(H) 275 - 295 mOsm/kg 09/24/2025 7:55 PM [facility] eGFR by CKD-EPI 5(L) >=90 mL/min/1.7 3 m2 09/24/2025 7:55 PM ANIMAL [employer] SUPERVISOR [facility] Comment:Estimated Glomerular Filtration Rate (eGFR) calculated using the CKD-EPI Creatinine Equation (2020), per the [employer] and [place] [employer] recommendations. Blood BLOOD SPECIMEN / Unknown Lab Venipuncture / Unknown 09/24/2025 6:37 PM ANIMAL H[employer]ENT SUPERVISOR 09/24/2025 7:24 PM ANIMAL H[employer]ANE AGENT SUPERVISOR Columba Blanc MD LAB - CHEMISTRY ORDERABLES F inal Result [address] [address], [place] [phone] * (ABNORMAL) GLUCOSE - POINT OF CARE (09/24/2025 4:04 PM ANIMAL HUMANE AGENT SUPERVISOR) Glucose WB/POC 132(H) 70 - 99 mg/dL 09/24/2025 4:05 PM ANIMAL HUMANE AGENT SUPERVISOR [facility] Specimen Type Arterial/C apillary 09/24/2025 4:05 PM ANIMAL HUMANE AGENT SUPERVISOR [facility] Blood BLOOD SPECIMEN / Unknown 09/24/2025 4:04 PM ANIMAL HUMANE AGENT SUPERVISOR 09/24/2025 4:05 PM ANIMAL HUMANE AGENT SUPERVISOR Columba Blanc MD LAB - POINT OF CARE ORDERABL ES Final Result Performing Organization Address City/[facility]/ZIP Co de Phone Number [address] [address], [place] [phone] * (ABNORMAL) GLUCOSE - POINT OF CARE (09/24/2025 12:16 PM ANIMAL HUMANE AGENT SUPERVISOR) Glucose WB/POC 218(H) 70 - 99 mg/dL 09/24/2025 12:25 PM ANIMAL HUMANE AGENT SUPERVISOR [facility] Specimen Type Arterial/C apillary 09/24/2025 12:25 PM ANIMAL HUMANE AGENT SUPERVISOR [facility] Blood BLOOD SPECIMEN / Unknown 09/24/2025 12:16 PM ANIMAL HUMANE AGENT SUPERVISOR 09/24/2025 12:25 PM ANIMAL HUMANE AGENT SUPERVISOR Columba Blanc MD LAB - POINT OF CARE ORDERABL ES Final Result Performing Organization Address [facility]/ZIP Co de Phone Number [address] [address], [facility] [phone] * (ABNORMAL) GLUCOSE - POINT OF CARE (09/24/2025 9:28 AM ANIMAL HUMANE AGENT SUPERVISOR) Pathologist [facility] Glucose WB/POC 116(H) 70 - 99 mg/dL 09/24/2025 9:29 AM [facility] Specimen Type Arterial/C apillary 09/24/2025 9:29 AM [facility] Blood BLOOD SPECIMEN / Unknown 09/24/2025 9:28 AM ANIMAL HUMANE AGENT SUPERVISOR 09/24/2025 9:[address] [facility] Columba Blanc MD LAB - POINT OF CARE ORDERABL ES Final Result Performing Organization Address [facility] Co de Phone Number [address] [address], [facility] [phone] * (ABNORMAL) CBC W/O DIFFERENTIAL (09/24/2025 3:58 AM ANIMAL HUMANE AGENT SUPERVISOR) [facility] WBC 9.7 4.0 - 10.7 x10E9/L 09/24/2025 5:23 AM [facility] RBC Count 4.18 3.90 - 5.20 x10E12/L 09/24/2025 5:23 AM [facility] Hemoglobin 12.1 11.9 - 15.8 g/dL 09/24/2025 5:23 AM [facility] Hematocrit 37.7 34.8 - 46.1 % 09/24/2025 5:23 AM [facility] MCV 90.2 80.0 - 98.0 fL 09/24/2025 5:23 AM [facility] MCH 28.9 26.7 - 33.6 pg 09/24/2025 5:23 AM [facility] MCHC 32.1 31.7 - 36.3 g/dL 09/24/2025 5:23 AM [facility] RDW-CV 15.7(H) 11.3 - 14.8 % 09/24/2025 5:23 AM [facility] Platelet Count 341 150 - 420 x10E9/L 09/24/2025 5:23 AM [facility] MPV 10.7 7.8 - 11.4 fL 09/24/2025 5:23 AM [facility] Blood BLOOD SPECIMEN / Unknown Lab Venipuncture / Unknown 09/24/2025 3:58 AM ANIMAL HUMANE AGENT SUPERVISOR 09/24/2025 5:02 AM ANIMAL HUMANE AGENT SUPERVISOR Columba Blanc MD LAB - HEMATOLOGY ORDERABLES Final Result [facility] [address] [place] [address], [facility] [phone] * (ABNORMAL) BASIC METABOLIC PANEL (CALCIUM TOTAL) (09/24/2025 3:[address] [facility]) BUN 20 7 - 26 mg/dL 09/24/2025 5:46 AM [facility] Creatinine 6.62(H) 0.56 - 0.96 mg/dL 09/24/2025 5:46 AM [facility] Sodium 137 136 - 145 mmol/L 09/24/2025 5:46 AM [facility] Potassium 4.0 3.5 - 4.5 mmol/L 09/24/2025 5:46 AM [facility] Chloride 99 98 - 107 mmol/L 09/24/2025 5:46 AM [facility] CO2 24 22 - 29 mmol/L 09/24/2025 5:46 AM [facility] Glucose 96 70 - 99 mg/dL 09/24/2025 5:46 AM [facility] Calcium 10.5(H) 8.4 - 10.2 mg/dL 09/24/2025 5:46 AM [facility] Anion Gap 14 6 - 16 09/24/2025 5:46 AM [facility] BUN/Creatinine Ratio 3(L) 7 - 23 09/24/2025 5:46 AM [facility] Osmolality Calculated 286 275 - 295 mOsm/kg 09/24/2025 5:46 AM [facility] eGFR by CKD-EPI 6(L) >=90 mL/min/1.7 3 m2 09/24/2025 5:46 AM ANIMAL HUMANE AGENT SUPERVISOR [facility] Comment:Estimated Glomerular Filtration Rate (eGFR) calculated using the CKD-EPI Creatinine Equation (2020), per the National Kidney Foundation and [place] [employer] Neph[employer] recommendations. Blood BLOOD SPECIMEN / Unknown Lab Venipuncture / Unknown 09/24/2025 3:58 AM ANIMAL HUMANE AGENT SUPERVISOR 09/24/2025 5:05 AM ANIMAL HUMANE AGENT SUPERVISOR Result [facility] Columba Blanc MD LAB - CHEMISTRY ORDERABLES F inal Result [address] [address], [place] [phone] * (ABNORMAL) GLUCOSE - POINT OF CARE (09/23/2025 8:29 PM ANIMAL HUMANE AGENT SUPERVISOR) Glucose WB/POC 107(H) 70 - 99 mg/dL 09/23/2025 8:41 PM [facility] Specimen Type Arterial/C apillary 09/23/2025 8:41 PM [facility] Blood BLOOD SPECIMEN / Unknown 09/23/2025 8:29 PM ANIMAL HUMANE AGENT SUPERVISOR 09/23/2025 8:41 PM ANIMAL HUMANE AGENT SUPERVISOR Result [facility] Columba Blanc MD LAB - POINT OF CARE ORDERABL ES Final Result Performing Organization Address City/[facility]/ZIP Co de Phone Number [address] [address], [place] [phone] * (ABNORMAL) GLUCOSE - POINT OF CARE (09/23/2025 4:23 PM ANIMAL HUMANE AGENT SUPERVISOR) Glucose WB/POC 113(H) 70 - 99 mg/dL 09/23/2025 4:28 PM ANIMAL HUMANE AGENT SUPERVISOR [facility] Specimen Type Arterial/C apillary 09/23/2025 4:28 PM [facility] Blood BLOOD SPECIMEN / Unknown 09/23/2025 4:23 PM ANIMAL HUMANE AGENT SUPERVISOR 09/23/2025 4:28 PM ANIMAL HUMANE AGENT SUPERVISOR Columba Blanc MD LAB - POINT OF CARE ORDERABL ES Final Result [address] [address], [facility] [phone] * GLUCOSE - POINT OF CARE (09/23/2025 12:31 PM ANIMAL HUMANE AGENT SUPERVISOR) Glucose WB/POC 89 70 - 99 mg/dL 09/23/2025 12:35 PM [facility] Specimen Type Arterial/C apillary 09/23/2025 12:35 PM [facility] Blood BLOOD SPECIMEN / Unknown 09/23/2025 12:31 PM ANIMAL HUMANE AGENT SUPERVISOR 09/23/2025 12:35 PM ANIMAL HUMANE AGENT SUPERVISOR Columba Blanc MD LAB - POINT OF CARE ORDERABL ES Final Result Performing Organization Address City/[facility]/ZIP Co de Phone Number [address] [address], [facility] [phone] * (ABNORMAL) CBC W/O DIFFERENTIAL (09/22/2025 11:39 PM ANIMAL HUMANE AGENT SUPERVISOR) WBC 14.1(H) 4.0 - 10.7 x10E9/L 09/23/2025 12:09 AM [facility] RBC Count 3.52(L) 3.90 - 5.20 x10E12/L 09/23/2025 12:09 AM [facility] Hemoglobin 10.2(L) 11.9 - 15.8 g/dL 09/23/2025 12:09 AM [facility] Hematocrit 32.0(L) 34.8 - 46.1 % 09/23/2025 12:09 AM [facility] MCV 90.9 80.0 - 98.0 fL 09/23/2025 12:09 AM [facility] MCH 29.0 26.7 - 33.6 pg 09/23/2025 12:09 AM [facility] MCHC 31.9 31.7 - 36.3 g/dL 09/23/2025 12:09 AM [facility] RDW-CV 15.5(H) 11.3 - 14.8 % 09/23/2025 12:09 AM [facility] Platelet Count 349 150 - 420 x10E9/L 09/23/2025 12:09 AM [facility] MPV 10.3 7.8 - 11.4 fL 09/23/2025 12:09 AM [facility] Blood BLOOD SPECIMEN / Unknown Lab Venipuncture / Unknown 09/22/2025 11:39 PM ANIMAL HUMANE AGENT SUPERVISOR 09/22/2025 11:54 PM ANIMAL HUMANE AGENT SUPERVISOR us Columba Blanc MD LAB - HEMATOLOGY ORDERABLES Final Result [facility] [address] [place] [address], [facility] [phone] * (ABNORMAL) BASIC METABOLIC PANEL (CALCIUM TOTAL) (09/22/2025 11:39 PM ANIMAL HUMANE AGENT SUPERVISOR) BUN 37(H) 7 - 26 mg/dL 09/23/2025 12:22 AM [facility] Creatinine 8.90(H) 0.56 - 0.96 mg/dL 09/23/2025 12:22 AM [facility] Sodium 136 136 - 145 mmol/L 09/23/2025 12:22 AM [facility] Potassium 3.9 3.5 - 4.5 mmol/L 09/23/2025 12:22 AM [facility] Chloride 97(L) 98 - 107 mmol/L 09/23/2025 12:22 AM [facility] CO2 24 22 - 29 mmol/L 09/23/2025 12:22 AM [facility] Glucose 139(H) 70 - 99 mg/dL 09/23/2025 12:22 AM [facility] Calcium 10.1 8.4 - 10.2 mg/dL 09/23/2025 12:22 AM [facility] Anion Gap 15 6 - 16 09/23/2025 12:22 AM [facility] BUN/Creatinine Ratio 4(L) 7 - 23 09/23/2025 12:22 AM [facility] Osmolality Calculated 293 275 - 295 mOsm/kg 09/23/2025 12:22 AM [facility] eGFR by CKD-EPI 5(L) >=90 mL/min/1.7 3 m2 09/23/2025 12:22 AM [facility] Comment:Estimated Glomerular Filtration Rate (eGFR) calculated using the CKD-EPI Creatinine Equation (2020), per the National Kidney Foundation and [place] [employer] Neph[employer] recommendations. Blood BLOOD SPECIMEN / Unknown Lab Venipuncture / Unknown 09/22/2025 11:39 PM ANIMAL HUMANE AGENT SUPERVISOR 09/22/2025 11:54 PM ANIMAL HUMANE AGENT SUPERVISOR Columba Blanc MD LAB - CHEMISTRY ORDERABLES F inal Result [address] [address], [place] [phone] * ERYTHROCYTE SEDIMENTATION RATE (09/22/2025 11:39 PM ANIMAL HUMANE AGENT SUPERVISOR) Erythrocyte Sedimentation Rate Westergren 18 0 - 30 MM/HR 09/23/2025 12:21 AM [facility] Blood BLOOD SPECIMEN / Unknown Lab Venipuncture / Unknown 09/22/2025 11:39 PM ANIMAL HUMANE AGENT SUPERVISOR 09/22/2025 11:54 PM ANIMAL HUMANE AGENT SUPERVISOR Result [facility] Columba Blanc MD LAB - HEMATOLOGY ORDERABLES Final Result Performing Organization Address City/[facility]/ZIP Co de Phone Number [address] [address], [place] [phone] * (ABNORMAL) GLUCOSE - POINT OF CARE (09/22/2025 10:06 PM ANIMAL HUMANE AGENT SUPERVISOR) Glucose WB/POC 200(H) 70 - 99 mg/dL 09/22/2025 10:11 PM [facility] Specimen Type Arterial/C apillary 09/22/2025 10:11 PM [facility] Blood BLOOD SPECIMEN / Unknown 09/22/2025 10:06 PM ANIMAL HUMANE AGENT SUPERVISOR 09/22/2025 10:11 PM ANIMAL HUMANE AGENT SUPERVISOR Columba Blanc MD LAB - POINT OF CARE ORDERABL ES Final Result [address] [address], [place] [phone] * (ABNORMAL) GLUCOSE - POINT OF CARE (09/22/2025 9:09 PM ANIMAL HUMANE AGENT SUPERVISOR) Glucose WB/POC 64(L) 70 - 99 mg/dL 09/22/2025 9:11 PM ANIMAL HUMANE AGENT SUPERVISOR [facility] Specimen Type Arterial/C apillary 09/22/2025 9:11 PM ANIMAL HUMANE AGENT SUPERVISOR [facility] Blood BLOOD SPECIMEN / Unknown 09/22/2025 9:09 PM ANIMAL HUMANE AGENT SUPERVISOR 09/22/2025 9:11 PM ANIMAL HUMANE AGENT SUPERVISOR Columba Blanc MD LAB - POINT OF CARE ORDERABL ES Final Result Performing Organization Address [facility]/ZIP Co de Phone Number [address] [address], [facility] [phone] * (ABNORMAL) GLUCOSE - POINT OF CARE (09/22/2025 4:00 PM ANIMAL HUMANE AGENT SUPERVISOR) Glucose WB/POC 235(H) 70 - 99 mg/dL 09/22/2025 4:04 PM ANIMAL HUMANE AGENT SUPERVISOR [facility] Specimen Type Arterial/C apillary 09/22/2025 4:04 PM [facility] Blood BLOOD SPECIMEN / Unknown 09/22/2025 4:00 PM ANIMAL HUMANE AGENT SUPERVISOR 09/22/2025 4:04 PM ANIMAL HUMANE AGENT SUPERVISOR Columba Blanc MD LAB - POINT OF CARE ORDERABL ES Final Result [address] [address], [place] [phone] * (ABNORMAL) GLUCOSE - POINT OF CARE (09/22/2025 11:54 AM ANIMAL HUMANE AGENT SUPERVISOR) Glucose WB/POC 125(H) 70 - 99 mg/dL 09/22/2025 11:59 AM ANIMAL HUMANE AGENT SUPERVISOR [facility] Specimen Type Arterial/C apillary 09/22/2025 11:59 AM ANIMAL HUMANE AGENT SUPERVISOR [facility] Blood BLOOD SPECIMEN / Unknown 09/22/2025 11:54 AM ANIMAL HUMANE AGENT SUPERVISOR 09/22/2025 11:59 AM ANIMAL HUMANE AGENT SUPERVISOR Columba Blanc MD LAB - POINT OF CARE ORDERABL ES Final Result Performing Organization Address City/[facility]/ZIP Co de Phone Number [address] [address], [place] [phone] * (ABNORMAL) GLUCOSE - POINT OF CARE (09/22/2025 8:06 AM ANIMAL HUMANE AGENT SUPERVISOR) Glucose WB/POC 114(H) 70 - 99 mg/dL 09/22/2025 8:08 AM [facility] Specimen Type Arterial/C apillary 09/22/2025 8:08 AM [facility] Blood BLOOD SPECIMEN / Unknown 09/22/2025 8:06 AM ANIMAL HUMANE AGENT SUPERVISOR 09/22/2025 8:08 AM ANIMAL HUMANE AGENT SUPERVISOR Columba Blanc MD LAB - POINT OF CARE ORDERABL ES Final Result Performing Organization Address City/[facility]/ZIP Co de Phone Number [address] [address], [facility] [phone] * (ABNORMAL) CBC W/O DIFFERENTIAL (09/22/2025 4:37 AM ANIMAL HUMANE AGENT SUPERVISOR) WBC 12.2(H) 4.0 - 10.7 x10E9/L 09/22/2025 4:57 AM [facility] RBC Count 4.05 3.90 - 5.20 x10E12/L 09/22/2025 4:57 AM [facility] Hemoglobin 11.5(L) 11.9 - 15.8 g/dL 09/22/2025 4:57 AM [facility] Hematocrit 36.1 34.8 - 46.1 % 09/22/2025 4:57 AM [facility] MCV 89.1 80.0 - 98.0 fL 09/22/2025 4:57 AM [facility] MCH 28.4 26.7 - 33.6 pg 09/22/2025 4:57 AM [facility] MCHC 31.9 31.7 - 36.3 g/dL 09/22/2025 4:57 AM [facility] RDW-CV 15.3(H) 11.3 - 14.8 % 09/22/2025 4:57 AM [facility] Platelet Count 349 150 - 420 x10E9/L 09/22/2025 4:57 AM [facility] MPV 9.9 7.8 - 11.4 fL 09/22/2025 4:57 AM [facility] Blood BLOOD SPECIMEN / Unknown Lab Venipuncture / Unknown 09/22/2025 4:[address] [facility] 09/22/2025 4:[address] [facility] us Tae Fisher MD LAB - HEMATOLOGY ORDERABLES Final Result Performing Organization Address City/State/[facility] Co de Phone Number [address] [address] [phone] * (ABNORMAL) BASIC METABOLIC PANEL (CALCIUM TOTAL) (09/22/2025 4:[address] [facility]) BUN 24 7 - 26 mg/dL 09/22/2025 5:25 AM [facility] Creatinine 6.87(H) 0.56 - 0.96 mg/dL 09/22/2025 5:25 AM [facility] Sodium 136 136 - 145 mmol/L 09/22/2025 5:25 AM [facility] Potassium 4.4 3.5 - 4.5 mmol/L 09/22/2025 5:25 AM [facility] Chloride 97(L) 98 - 107 mmol/L 09/22/2025 5:25 AM [facility] CO2 28 22 - 29 mmol/L 09/22/2025 5:25 AM [facility] Glucose 113(H) 70 - 99 mg/dL 09/22/2025 5:25 AM [facility] Calcium 11.7(H) 8.4 - 10.2 mg/dL 09/22/2025 5:25 AM [facility] Anion Gap 11 6 - 16 09/22/2025 5:25 AM [facility] BUN/Creatinine Ratio 3(L) 7 - 23 09/22/2025 5:25 AM [facility] Osmolality Calculated 287 275 - 295 mOsm/kg 09/22/2025 5:25 AM [facility] eGFR by CKD-EPI 6(L) >=90 mL/min/1.7 3 m2 09/22/2025 5:25 AM [facility] Comment:Estimated Glomerular Filtration Rate (eGFR) calculated using the CKD-EPI Creatinine Equation (2020), per the National Kidney Foundation and [place] [employer] Neph[employer] recommendations. Blood BLOOD SPECIMEN / Unknown Lab Venipuncture / Unknown 09/22/2025 4:37 AM ANIMAL HUMANE AGENT SUPERVISOR 09/22/2025 4:51 AM ANIMAL HUMANE AGENT SUPERVISOR Tae Fisher MD LAB - CHEMISTRY ORDERABLES F inal Result Performing Organization Address City/[facility]/ZIP Co de Phone Number [address] [address], [place] [phone] * (ABNORMAL) GLUCOSE - POINT OF CARE (09/21/2025 8:34 PM ANIMAL HUMANE AGENT SUPERVISOR) Glucose WB/POC 117(H) 70 - 99 mg/dL 09/21/2025 8:39 PM [facility] Specimen Type Arterial/C apillary 09/21/2025 8:39 PM [facility] Blood BLOOD SPECIMEN / Unknown 09/21/2025 8:34 PM ANIMAL HUMANE AGENT SUPERVISOR 09/21/2025 8:39 PM ANIMAL HUMANE AGENT SUPERVISOR us Columba Blanc MD LAB - POINT OF CARE ORDERABL ES Final Result [address] [address], [place] [phone] * (ABNORMAL) GLUCOSE - POINT OF CARE (09/21/2025 12:23 PM ANIMAL HUMANE AGENT SUPERVISOR) Glucose WB/POC 103(H) 70 - 99 mg/dL 09/21/2025 12:27 PM ANIMAL HUMANE AGENT SUPERVISOR [facility] Specimen Type Arterial/C apillary 09/21/2025 12:27 PM ANIMAL HUMANE AGENT SUPERVISOR [facility] Blood BLOOD SPECIMEN / Unknown 09/21/2025 12:23 PM ANIMAL HUMANE AGENT SUPERVISOR 09/21/2025 12:27 PM ANIMAL HUMANE AGENT SUPERVISOR Columba Blanc MD LAB - POINT OF CARE ORDERABL ES Final Result Performing Organization Address City/[facility]/ZIP Co de Phone Number [address] [address], [place] [phone] * GLUCOSE - POINT OF CARE (09/21/2025 7:46 AM ANIMAL HUMANE AGENT SUPERVISOR) Glucose WB/POC 98 70 - 99 mg/dL 09/21/2025 7:57 AM [facility] Specimen Type Arterial/C apillary 09/21/2025 7:57 AM [facility] Blood BLOOD SPECIMEN / Unknown 09/21/2025 7:46 AM ANIMAL HUMANE AGENT SUPERVISOR 09/21/2025 7:56 AM ANIMAL HUMANE AGENT SUPERVISOR Columba Blanc MD LAB - POINT OF CARE ORDERABL ES Final Result Performing Organization Address City/[facility]/ZIP Co de Phone Number [address] [address], [place] [phone] * (ABNORMAL) HEPATITIS B SURFACE ANTIBODY QUANT (09/21/2025 6:27 AM ANIMAL HUMANE AGENT SUPERVISOR) Hepatitis B Virus Surface Antibody Reactive( A) Non-react nancy 09/21/2025 7:58 AM [facility] Comment: > 12 mIU/mL Hepatitis B surface Antibody (HBsAb). Reactive for HBsAb - individual is considered immune to Hepatitis B Virus infection. Hepatitis B Surface Antibody Quantitative 29.9(H) <8.0 mIU/mL 09/21/2025 7:58 AM [facility] Comment: Hepatitis B Surface Antibody Numeric Result Interpretation: Nonreactive: <8.0 mIU/mL Indeterminate: 8.0 - 12.0 mIU/mL Reactive: >12.0 mIU/mL Blood BLOOD SPECIMEN / Unknown Lab Venipuncture / Unknown 09/21/2025 6:27 AM ANIMAL HUMANE AGENT SUPERVISOR 09/21/2025 6:35 AM ANIMAL HUMANE AGENT SUPERVISOR Narrative [facility] - 09/21/2025 7:58 AM ANIMAL HUMANE AGENT SUPERVISOR This assay should not be used for blood, plasma, or tissue donor screening. This assay is not recommended for neonates born to HBV-infected or suspected HBV-infected mothers. Sierra Benson MD LAB - SEROLOGY ORDERABLES Fin al Result Performing Organization Address City/[facility]/ZIP Co de Phone Number [address] [address], [facility] [phone] * HEPATITIS B SURFACE ANTIGEN W RFLX CONFIRMATION (09/21/2025 6:27 AM ANIMAL HUMANE AGENT SUPERVISOR) Pathologist [facility] Hepatitis B Virus Surface Antigen Non-reacti ve Non-reacti ve 09/21/2025 7:58 AM [facility] Blood BLOOD SPECIMEN / Unknown Lab Venipuncture / Unknown 09/21/2025 6:27 AM ANIMAL HUMANE AGENT SUPERVISOR 09/21/2025 6:35 AM ANIMAL HUMANE AGENT SUPERVISOR Sierra Benson MD LAB - CHEMISTRY ORDERABLES Fi nal Result Performing Organization Address [facility] Co de Phone Number [address] [address], [place] [phone] * (ABNORMAL) BASIC METABOLIC PANEL (CALCIUM TOTAL) (09/21/2025 4:36 AM ANIMAL HUMANE AGENT SUPERVISOR) [facility] BUN 51(H) 7 - 26 mg/dL 09/21/2025 5:54 AM [facility] Creatinine 11.29(H) 0.56 - 0.96 mg/dL 09/21/2025 5:54 AM [facility] Sodium 140 136 - 145 mmol/L 09/21/2025 5:54 AM [facility] Potassium 4.7(H) 3.5 - 4.5 mmol/L 09/21/2025 5:54 AM [facility] Chloride 96(L) 98 - 107 mmol/L 09/21/2025 5:54 AM [facility] CO2 27 22 - 29 mmol/L 09/21/2025 5:54 AM [facility] Glucose 68(L) 70 - 99 mg/dL 09/21/2025 5:54 AM [facility] Calcium 11.0(H) 8.4 - 10.2 mg/dL 09/21/2025 5:54 AM [facility] Anion Gap 17(H) 6 - 16 09/21/2025 5:54 AM [facility] BUN/Creatinine Ratio 5(L) 7 - 23 09/21/2025 5:54 AM [facility] Osmolality Calculated 302(H) 275 - 295 mOsm/kg 09/21/2025 5:54 AM [facility] eGFR by CKD-EPI 3(L) >=90 mL/min/1.7 3 m2 09/21/2025 5:54 AM [facility] Comment:Estimated Glomerular Filtration Rate (eGFR) calculated using the CKD-EPI Creatinine Equation (2020), per the National Kidney Foundation and [place] [employer] Neph[employer] recommendations. Blood BLOOD SPECIMEN / Unknown Lab Venipuncture / Unknown 09/21/2025 4:36 AM ANIMAL HUMANE AGENT SUPERVISOR 09/21/2025 4:[address] [facility] us Tae Fisher MD LAB - CHEMISTRY ORDERABLES F inal Result [facility] [address] [place] [address], [facility] [phone] * LEX BLOOD SCREEN W/REFLEX TITER (09/21/2025 4:36 AM ANIMAL HUMANE AGENT SUPERVISOR) LEX IgG None Detected None Detected 09/24/2025 6:[address] [facility] ([facility]) Comment: No Anti-Nuclear Antibodies (LEX) detected by ABHIJEET. No further testing will be performed. If suspicion of connective tissue disease is strong and LEX ABHIJEET is negative, consider testing for LEX by IFA ([id number]). INTERPRETIVE INFORMATION: Anti-Nuclear Antibodies (LEX), IgG by ABHIJEET Antinuclear Antibodies (LEX), IgG by ABHIJEET: LEX specimens are screened using enzyme-linked immunosorbent assay (ABHIJEET) methodology. All ABHIJEET results reported as Detected are further tested by indirect fluorescent assay (IFA) using HEp-2 substrate with an IgG-specific conjugate. The LEX ABHIJEET screen is designed to detect antibodies against dsDNA, histones, SS-A (Ro), SS-B (La), Newman, Newman/RHEUMATOLOGY NURSE, Scl-70, Erica-1, centromeric proteins, other antigens extracted from the HEp-2 cell nucleus. LEX ABHIJEET assays have been reported to have lower sensitivities than LEX IFA for systemic autoimmune rheumatic diseases (SARD). Negative results do not necessarily rule out SARD. Performed By: [facility] [address] [place] [address] Scrap Hooker: Joao Luis MD, PhD CLIA Number: [id number] Blood BLOOD SPECIMEN / Unknown Lab Venipuncture / Unknown 09/21/2025 4:36 AM ANIMAL HUMANE AGENT SUPERVISOR 09/21/2025 4:36 AM ANIMAL HUMANE AGENT SUPERVISOR Columba Blanc MD LAB - CHEMISTRY ORDERABLES F inal Result [facility] ([facility]) [address] [address], [facility] * SS-A/SS-B (SJOGREN'S) ANTIBODY PANEL (09/21/2025 4:36 AM ANIMAL HUMANE AGENT SUPERVISOR) Sjogren's Antibodies (SSA) <0.2 0.0 - 0.9 AI 09/23/2025 2:10 PM ANIMAL HUMANE AGENT SUPERVISOR [facility] ([facility]) Sjogren's Antibodies (SSB) <0.2 0.0 - 0.9 AI 09/23/2025 2:10 PM ANIMAL HUMANE AGENT SUPERVISOR [facility] ([facility]) Blood BLOOD SPECIMEN / Unknown Lab Venipuncture / Unknown 09/21/2025 4:36 AM ANIMAL HUMANE AGENT SUPERVISOR 09/21/2025 4:36 AM ANIMAL HUMANE AGENT SUPERVISOR Narrative [facility] ([facility]) - 09/23/2025 2:10 PM ANIMAL HUMANE AGENT SUPERVISOR Performed at: [address] [place] [id number] Talent Analyst: Charbel Gooden PhD, Phone: [phone] Columba Blanc MD LAB - CHEMISTRY ORDERABLES F inal Result [facility] ([facility]) [address] [place] [id number] * ANCA VASCULITIS PANEL (09/21/2025 4:36 AM ANIMAL HUMANE AGENT SUPERVISOR) Myeloperoxidase Antibody 0 0 - 19 AU/mL 09/25/2025 6:22 AM ANIMAL HUMANE AGENT SUPERVISOR [facility] ([facility]) Comment: INTERPRETIVE INFORMATION: Myeloperoxidase Abs, IgG 19 AU/mL or Less ......... Negative 20-25 AU/mL .............. Equivocal 26 AU/mL or Greater ...... Positive Approximately 90% of patients with a P-ANCA pattern by IFA have antibodies specific for MPO. Serine Proteinase 3 IgG 0 0 - 19 AU/mL 09/25/2025 6:[address] [facility] ([facility]) Comment: INTERPRETIVE INFORMATION: Serine Proteinase 3, IgG 19 AU/mL or Less ........ Negative 20-25 AU/mL ............. Equivocal 26 AU/mL or Greater ..... Positive Approximately 85% of patients with a C-ANCA pattern by IFA have antibodies specific for PR3. ANCA Titer IFA <1:20 <1:20 09/25/2025 6:[address] [facility] ([facility]) ANCA Pattern IFA None Detected None Detected 09/25/2025 6:[address] [facility] ([facility]) Comment: INTERPRETIVE INFORMATION: ANCA IFA Pattern Neutrophil Cytoplasmic Antibodies (C-ANCA = granular cytoplasmic staining, P-ANCA = perinuclear staining) are found in the serum of over 90 percent of patients with certain necrotizing systemic vasculitides, and usually in less than 5 percent of patients with collagen vascular disease or arthritis. Performed By: [facility] [address] [place] [id number] [employer]er: Joao Luis MD, PhD CLIA Number: [id number] Blood BLOOD SPECIMEN / Unknown Lab Venipuncture / Unknown 09/21/2025 4:36 AM ANIMAL HUMANE AGENT SUPERVISOR 09/21/2025 4:36 AM ANIMAL HUMANE AGENT SUPERVISOR us Columba Blanc MD LAB - CHEMISTRY ORDERABLES F inal Result [facility]) [address] [place] [id number], [facility] * (ABNORMAL) C-REACTIVE PROTEIN (09/21/2025 4:36 AM ANIMAL HUMANE AGENT SUPERVISOR) C-Reactive Protein 0.8(H) <=0.5 mg/dL 09/21/2025 5:54 AM ANIMAL HUMANE AGENT SUPERVISOR [facility] Blood BLOOD SPECIMEN / Unknown Lab Venipuncture / Unknown 09/21/2025 4:36 AM ANIMAL HUMANE AGENT SUPERVISOR 09/21/2025 4:36 AM ANIMAL HUMANE AGENT SUPERVISOR Result [facility] Columba Blanc MD LAB - CHEMISTRY ORDERABLES F inal Result Performing Organization Address [facility] Co de Phone Number [address] [phone], [facility] [phone] * (ABNORMAL) VITAMIN D 25-HYDROXY (09/21/2025 4:36 AM ANIMAL HUMANE AGENT SUPERVISOR) Vitamin D, 25 Hydroxy 19.9(L) 30.0 - 80.0 ng/mL 09/21/2025 6:09 AM ANIMAL HUMANE AGENT SUPERVISOR [facility] Comment: The recommendations for 25-Hydroxy Vitamin D clinical decision points are as follows: Deficient: <20.0 ng/mL Insufficient: 20.0 - 29.9 ng/mL Sufficient: 30.0 - 100.0 ng/mL Potential Toxicity: >100 ng/mL Reference: The Endocrine Society Clinical Practice Guidelines. 2011 If the 25-Hydroxy Vitamin D results are inconsitent with clinical evidence, it is recommended that follow-up testing using a method such as LC/MS/MS be performed to confirm the result. Blood BLOOD SPECIMEN / Unknown Lab Venipuncture / Unknown 09/21/2025 4:36 AM ANIMAL HUMANE AGENT SUPERVISOR 09/21/2025 4:36 AM ANIMAL HUMANE AGENT SUPERVISOR Result [facility] Columba Blanc MD LAB - CHEMISTRY ORDERABLES F inal Result [address] [place] [address] [phone] * (ABNORMAL) VITAMIN D 1,25 DIHYDROXY (09/21/2025 4:36 AM ANIMAL HUMANE AGENT SUPERVISOR) Vitamin D, 1,25 Dihydroxy 14.1(L) 19.9 - 79.3 pg/mL 09/23/2025 2:06 PM ANIMAL HUMANE AGENT SUPERVISOR [facility] ([facility]) Comment: INTERPRETIVE INFORMATION: Vitamin D, 1,25-Dihydroxy This test is primarily indicated during patient evaluation for hypercalcemia and renal failure. A normal result does not rule out Vitamin D deficiency. The recommended test for diagnosing Vitamin D deficiency is Vitamin D 25-hydroxy. Performed By: [facility] [address] [place] [address] Scrap Hooker: Joao Luis MD, PhD CLIA Number: [id number] Blood BLOOD SPECIMEN / Unknown Lab Venipuncture / Unknown 09/21/2025 4:36 AM ANIMAL HUMANE AGENT SUPERVISOR 09/21/2025 4:36 AM ANIMAL HUMANE AGENT SUPERVISOR Columba Blanc MD LAB - CHEMISTRY ORDERABLES F inal Result [facility]) [address] [place] [address] * (ABNORMAL) PTH RELATED PEPTIDE (09/21/2025 4:36 AM ANIMAL HUMANE AGENT SUPERVISOR) PTH Related Peptide 6.0(H) 0.0 - 3.4 pmol/L 09/29/2025 9:33 AM ANIMAL HUMANE AGENT SUPERVISOR [facility] ([facility]) Comment: INTERPRETIVE INFORMATION: Parathyroid Hormone-Related Peptide This test was developed and its performance characteristics determined by [facility]. It has not been cleared or approved by the [place] Food and Drug Administration. This test was performed in a CLIA certified laboratory and is intended for clinical purposes. Performed By: [facility] [address] [place] [address] Scrap Hooker: Joao Luis MD, PhD CLIA Number: [id number] Blood BLOOD SPECIMEN / Unknown Lab Venipuncture / Unknown 09/21/2025 4:36 AM ANIMAL HUMANE AGENT SUPERVISOR 09/21/2025 4:36 AM ANIMAL HUMANE AGENT SUPERVISOR Columba Blanc MD LAB - CHEMISTRY ORDERABLES F inal Result [facility] ([facility]) [address] * CALCIUM IONIZED WHOLE BLOOD (09/21/2025 4:35 AM ANIMAL HUMANE AGENT SUPERVISOR) Calcium Ionized 1.32 mmol/L 09/21/2025 5:13 AM ANIMAL HUMANE AGENT SUPERVISOR [facility] pH 7.38 7.35 - 7.45 pH 09/21/2025 5:13 AM ANIMAL HUMANE AGENT SUPERVISOR [facility] Ionized Calcium pH Adjusted 1.31 1.19 - 1.34 mmol/L 09/21/2025 5:13 AM ANIMAL HUMANE AGENT SUPERVISOR [facility] Blood BLOOD SPECIMEN / Unknown Lab Venipuncture / Unknown 09/21/2025 4:35 AM ANIMAL HUMANE AGENT SUPERVISOR 09/21/2025 4:35 AM ANIMAL HUMANE AGENT SUPERVISOR Columba Blanc MD LAB - CHEMISTRY ORDERABLES F inal Result [facility] [address] [place] [address], [facility] [phone] * XR Abdomen Kub Portable (09/20/2025 11:44 PM ANIMAL HUMANE AGENT SUPERVISOR) Anatomical Region Laterality Modality Abdomen Digital Radiogra phy 09/21/2025 11:5 7 PM ANIMAL HUMANE AGENT SUPERVISOR Impressions 09/21/2025 11:57 PM ANIMAL HUMANE AGENT SUPERVISOR Impression: Nasogastric tube is in the stomach. The visualized bowel gas pattern is normal. The visualized lung bases are clear. No displaced fracture. > Interpreting Provider: Venancio Varela MD on 09/21/2025 11:57 PM Narrative 09/21/2025 11:57 PM ANIMAL HUMANE AGENT SUPERVISOR PROCEDURE: XR ABDOMEN KUB PORTABLE, DATE/TIME OF EXAM: 09/20/2025 11:44 PM, LOCATION [facility] INDICATION: I63.9: Ischemic stroke (HCC) ADDITIONAL CLINICAL INFORMATION: Ordering Provider Reason For Exam: NGT placement Technologist Note: Additional: COMPARISON: None. Procedure Note Venancio Varela MD - 09/21/2025 PROCEDURE: XR ABDOMEN KUB PORTABLE, DATE/TIME OF EXAM: 1:44 PM, LOCATION [facility] INDICATION: I63.9: Ischemic stroke (HCC) ADDITIONAL CLINICAL INFORMATION: Ordering Provider Reason For Exam: NGT placement Technologist Note: Additional: COMPARISON: None. Impression: Nasogastric tube is in the stomach. The visualized bowel gas pattern is normal. The visualized lung bases are clear. No displaced fracture. > Interpreting Provider: Venancio Varela MD on 09/21/2025 11:57 PM Coulmba Blanc MD DIAGNOSTIC IMAGING ORDERABLE S Final Result * GLUCOSE - POINT OF CARE (09/20/2025 11:06 PM ANIMAL HUMANE AGENT SUPERVISOR) Glucose WB/POC 71 70 - 99 mg/dL 09/20/2025 11:10 PM ANIMAL HUMANE AGENT SUPERVISOR [facility] Specimen Type Arterial/C apillary 09/20/2025 11:10 PM ANIMAL HUMANE AGENT SUPERVISOR [facility] Blood BLOOD SPECIMEN / Unknown 09/20/2025 11:06 PM ANIMAL HUMANE AGENT SUPERVISOR 09/20/2025 11:10 PM ANIMAL HUMANE AGENT SUPERVISOR Result [facility] Colubma Blanc MD LAB - POINT OF CARE ORDERABL ES Final Result [address] [address], [facility] [phone] * (ABNORMAL) GLUCOSE - POINT OF CARE (09/20/2025 9:07 PM ANIMAL HUMANE AGENT SUPERVISOR) Glucose WB/POC 62(L) 70 - 99 mg/dL 09/20/2025 9:11 PM ANIMAL HUMANE AGENT SUPERVISOR [facility] Specimen Type Arterial/C apillary 09/20/2025 9:11 PM ANIMAL HUMANE AGENT SUPERVISOR [facility] Blood BLOOD SPECIMEN / Unknown 09/20/2025 9:07 PM ANIMAL HUMANE AGENT SUPERVISOR 09/20/2025 9:11 PM ANIMAL HUMANE AGENT SUPERVISOR Columba Blanc MD LAB - POINT OF CARE ORDERABL ES Final Result [address] [address], [place] [phone] * GLUCOSE - POINT OF CARE (09/20/2025 6:24 PM ANIMAL HUMANE AGENT SUPERVISOR) Glucose WB/POC 95 70 - 99 mg/dL 09/20/2025 6:25 PM ANIMAL HUMANE AGENT SUPERVISOR [facility] Specimen Type Arterial/C apillary 09/20/2025 6:25 PM ANIMAL HUMANE AGENT SUPERVISOR [facility] Blood BLOOD SPECIMEN / Unknown 09/20/2025 6:24 PM ANIMAL HUMANE AGENT SUPERVISOR 09/20/2025 6:25 PM ANIMAL HUMANE AGENT SUPERVISOR Columba Blanc MD LAB - POINT OF CARE ORDERABL ES Final Result Performing Organization Address [facility]/ZIP Co de Phone Number [address] [address], [place] [phone] * (ABNORMAL) GLUCOSE - POINT OF CARE (09/20/2025 4:21 PM ANIMAL HUMANE AGENT SUPERVISOR) Glucose WB/POC 133(H) 70 - 99 mg/dL 09/20/2025 4:26 PM ANIMAL HUMANE AGENT SUPERVISOR [facility] Specimen Type Arterial/C apillary 09/20/2025 4:26 PM ANIMAL HUMANE AGENT SUPERVISOR [facility] Blood BLOOD SPECIMEN / Unknown 09/20/2025 4:21 PM ANIMAL HUMANE AGENT SUPERVISOR 09/20/2025 4:26 PM ANIMAL HUMANE AGENT SUPERVISOR Columba Blanc MD LAB - POINT OF CARE ORDERABL ES Final Result [address] [address], [place] [phone] * (ABNORMAL) GLUCOSE - POINT OF CARE (09/20/2025 3:51 PM ANIMAL HUMANE AGENT SUPERVISOR) Glucose WB/POC 68(L) 70 - 99 mg/dL 09/20/2025 3:59 PM ANIMAL HUMANE AGENT SUPERVISOR [facility] Specimen Type Arterial/C apillary 09/20/2025 3:59 PM ANIMAL HUMANE AGENT SUPERVISOR [facility] Blood BLOOD SPECIMEN / Unknown 09/20/2025 3:51 PM ANIMAL HUMANE AGENT SUPERVISOR 09/20/2025 3:59 PM ANIMAL HUMANE AGENT SUPERVISOR us Columba Blanc MD LAB - POINT OF CARE ORDERABL ES Final Result [facility] [address] [place] [address], [facility] [phone] * IR Carotid Cerebral Angiogram (09/20/2025 11:28 AM ANIMAL HUMANE AGENT SUPERVISOR) Anatomical Region Laterality Modality Head X-Ray Angiograph y 09/20/2025 1:54 PM ANIMAL HUMANE AGENT SUPERVISOR Impressions 09/20/2025 3:49 PM ANIMAL HUMANE AGENT SUPERVISOR Impression: - Multiple alternating areas of moderate to severe stenosis affecting anterior and posterior circulation following a beading pattern. This could represent severe intracranial atherosclerosis or QUALITY MANAGEMENT NURSE vasculitis, recommend clinical correlation. > Dictated by Special Education Tutor I, Omar Jack MD have personally reviewed and interpreted this examination/study. > Interpreting Provider: Omar Jack MD on 09/20/2025 3:49 PM Narrative 09/20/2025 3:49 PM ANIMAL HUMANE AGENT SUPERVISOR DATE/TIME OF EXAM: 09/20/2025 10:00 AM Procedure: Diagnostic Catheter Cerebral Angiogram Comparison Study: Brain and neck MRA from 09/19/2025 History: 65 yo woman admitted for an acute infarct in left frontal lobe. CTA shows severe multiple areas of stenosis in anterior and posterior circulation. Plan cerebral angiogram for evaluation of severe intracranial vasculopathy. Manual Arts Therapy Teacher: Dr. Jack Casino Floorperson(s): Idris Blanc MD; Santo Hong MD. Vessels: Ultrasound Guided Access of Radial Artery Right Radial Artery Angiogram Left Vertebral Artery Angiogram: Cerebral Left Internal Carotid Artery Angiogram: Cerebral Left External Carotid Artery Angiogram: Cerebral Right Internal Carotid Artery Angiogram: Cerebral Right External Carotid Artery Angiogram: Cerebral Right Subclavian Artery Angiogram: Cerebral Anesthesia: I, Dr. Jack, was present for the entire duration of the procedure. Moderate sedation on this adult patient was ordered by the control tower radio operator, administered intravenously in my presence, and monitored by the procedure nurse as an independent trained observer who was present throughout the procedure. The following parameters were monitored: oxygen saturation, heart rate, blood pressure, and response to care. Intra-service sedation start time was 10:25 and end time was 11:20 during which I was present. Total physician intra-service sedation time was 55 minutes. For details on sedation patient evaluation, please review the evaluation in [facility]. For details on monitored clinical parameters during the intra-service sedation time, please review the procedure nurse documentation in [facility]. Procedural detail: The risks, benefits, and alternatives to procedure were discussed in detail with the patient and his/her family. These included but were not limited to the risk of blood loss, vessel injury, stroke, renal injury, and contrast allergy. The patient was brought to the biplane angiography suite where he/she underwent prep and drape procedures. Limited ultrasound of the right radial artery demonstrated a patent vessel. A roy scale image was documented. The right radial artery was accessed using a micropuncture needle. Following a series of exchanges, a 5 [place] 11 cm Glidesheath slender was placed in the radial artery. A radial angiogram was performed through the sheath. A spasmolytic cocktail containing 3000u heparin, 2.5mg verapamil, and 200mcg of nitroglycerin was administered. A 5 [place] Glidecath Rosas 2 diagnostic catheter along with a 0.035 Glidewire was navigated into the aortic arch. The catheter was used to select the brachiocephalic trunk followed by the right common carotid artery, then a roadmap was obtained with subsequent selection of right internal and external artery, and cerebral angiograms were obtained. The catheter was returned to the arch and used to select the left common carotid artery followed by the left internal carotid artery and a cerebral angiogram was obtained. The catheter was returned to the left common carotid artery and then used to select the left external carotid artery and a cerebral angiogram was obtained. The catheter then was returned to the arch and used to select the left vertebral artery which have a origin from the arch and a cerebral angiogram was obtained. The catheter was used to select the brachiocephalic trunk followed by the right subclavian artery and a cerebral angiogram was obtained. All catheters and sheaths were removed from the arterial system. Hemostasis was achieved using a Terumo radial band closure device. Hemostasis was immediate at the end of the closure procedure. The right radial artery pulse was palpable at the end of the closure procedure. The patient tolerated the procedure without immediate complications. She was returned to the recovery area in hemodynamically stable condition and neurologically unchanged. The estimated blood loss was less than 10 mL. A total of 20 minutes of fluoroscopic time and 130 ml of Isovue-300 contrast were utilized for the study. Findings: - Left Vertebral artery It reveals a distal V2 - V3 segments with normal course and caliber. The V4 segment has a proximal segment with normal course and caliber, but there is visualization of alternating areas of severe stenosis in distal segment of V4 segment. The left vertebral artery ends in PICA which also has alternating areas of moderate stenosis in its proximal segments, the distal segments have a normal course and caliber. - Left Internal Carotid Artery It reveals a normal course and caliber of the intracranial segments. There is visualization of a prominent caliber posterior communicating artery suggestive of a ELECTRIC RANGE SERVICER variant. The middle cerebral artery has a diffuse decrease caliber of its horizontal segment causing moderate stenosis, the superior and inferior division have some there is visualization of alternating areas of moderate and severe stenosis following a beading pattern. The anterior cerebral artery has a diffuse decrease caliber of its A1 segment causing moderate stenosis. Cortical branches of the A2 segments such as frontopolar, pericallosal, callosomarginal have alternating areas of moderate and severe stenosis following a beading pattern. The venous phase shows a normal drainage. - Left External Carotid Artery, cerebral angiogram. It reveals a normal course and caliber of the distal branches of middle meningeal artery, occipital and superficial temporal artery. - Right Internal Carotid Artery. It reveals a normal course and caliber of the intracranial segments. There is visualization of a prominent caliber posterior communicating artery suggestive of a ELECTRIC RANGE SERVICER variant. The middle cerebral artery has a normal course and caliber, the rest of the segments have alternating areas of moderate stenosis following a beading pattern. The anterior cerebral artery has a normal course and caliber of its A1 segment, the rest of its segments have alternating areas of moderate and severe stenosis following a beading pattern. The venous phase shows a normal drainage. - Right External Carotid Artery. It reveals a normal course and caliber of the distal branches of middle meningeal artery, occipital and superficial temporal artery. -Right Vertebral artery. It reveals a V4 segment with a distal moderate stenosis. There is not further visualization of the vertebrobasilar junction or basilar artery due due to contrast washout however we cant rule out severe stenosis or occlusion as a selective angiogram of the right vertebra; artery was ot performed. Procedure Note Omar Jack MD - 09/20/2025 DATE/TIME OF EXAM: 09/20/2025 10:00 AM Procedure: Diagnostic Catheter Cerebral Angiogram Comparison Study: Brain and neck MRA from 09/19/2025 History: 65 yo woman admitted for an acute infarct in left frontal lobe. CTAshows severe multiple areas of stenosis in anterior and posterior circulation. Plan cerebral angiogram for evaluation of severe intracranialvasculopathy. Manual Arts Therapy Teacher: Dr. Jack Casino Floorperson(s): Idris Blanc MD; Santo Hong MD. Vessels: Ultrasound Guided Access of Radial Artery Right Radial Artery Angiogram Left Vertebral Artery Angiogram: Cerebral Left Internal Carotid Artery Angiogram: Cerebral Left External Carotid Artery Angiogram: Cerebral Right Internal Carotid Artery Angiogram: Cerebral Right External Carotid Artery Angiogram: Cerebral Right Subclavian Artery Angiogram: Cerebral Anesthesia: I, Dr. Jack, was present for the entire duration of the procedure. Moderate sedation on this adult patient was ordered by the control tower radio operator, administered intravenously in my presence, and monitored by theprocedure nurse as an independent trained observer who was present throughout the procedure. The following parameters were monitored: oxygen saturation, heart rate, blood pressure, and response to care. Intra-service sedation start time was 10:25 and end time was 11:20 during which I was present. Total physician intra-service sedation time was 55 minutes. For detailson sedation patient evaluation, please review the evaluation in [facility]. For details on monitored clinical parameters during the intra-servicesedation time, please review the procedure nurse documentation in [facility]. Procedural detail: The risks, benefits, and alternatives to procedure were discussed indetail with the patient and his/her family. These included but were notlimited to the risk of blood loss, vessel injury, stroke, renal injury, and contrast allergy. The patient was brought to the biplane angiographysuite where he/she underwent prep and drape procedures. Limited ultrasound of the right radial artery demonstrated a patent vessel. A roy scale image was documented. The right radial artery was accessed using amicropuncture needle. Following a series of exchanges, a 5 [place] 11 cm Glidesheath slender was placed in the radial artery. A radial angiogram wasperformed through the sheath. A spasmolytic cocktail containing 3000u heparin,2.5mg verapamil, and 200mcg of nitroglycerin was administered. A 5 [place] Glidecath Rosas 2 diagnostic catheter along with a 0.035 Glidewire was navigated into the aortic arch. The catheter was used to select the brachiocephalic trunk followed bythe right common carotid artery, then a roadmap was obtained withsubsequent selection of right internal and external artery, and cerebralangiograms were obtained. The catheter was returned to the arch and used to select the left common carotid artery followed by the left internal carotidartery and a cerebral angiogram was obtained. The catheter was returned to the left common carotid artery and then used to select the left external carotid artery and a cerebral angiogram was obtained. The catheter thenwas returned to the arch and used to select the left vertebral artery which have a origin from the arch and a cerebral angiogram was obtained. The catheter was used to select the brachiocephalic trunk followed by theright subclavian artery and a cerebral angiogram was obtained. All catheters and sheaths were removed from the arterial system.Hemostasis was achieved using a Terumo radial band closure device. Hemostasis was immediate at the end of the closure procedure. The right radial artery pulse was palpable at the end of the closure procedure. The patient tolerated the procedure without immediate complications. She was returned to the recovery area in hemodynamically stable conditionand neurologically unchanged. The estimated blood loss was less than 10 mL. A total of 20 minutes of fluoroscopic time and 130 ml of Isovue-300 contrast were utilized for the study. Findings: - Left Vertebral artery It reveals a distal V2 - V3 segments with normal course and caliber. TheV4 segment has a proximal segment with normal course and caliber, but thereis visualization of alternating areas of severe stenosis in distal segmentof V4 segment. The left vertebral artery ends in PICA which also has alternating areas of moderate stenosis in its proximal segments, thedistal segments have a normal course and caliber. - Left Internal Carotid Artery It reveals a normal course and caliber of the intracranial segments.There is visualization of a prominent caliber posterior communicating artery suggestive of a ELECTRIC RANGE SERVICER variant. The middle cerebral artery has adiffuse decrease caliber of its horizontal segment causing moderate stenosis,the superior and inferior division have some there is visualization of alternating areas of moderate and severe stenosis following a beading pattern. The anterior cerebral artery has a diffuse decrease caliber of its A1 segment causing moderate stenosis. Cortical branches of the A2 segments such as frontopolar, pericallosal, callosomarginal have alternating areas of moderate and severe stenosis following a beading pattern. The venous phase shows a normal drainage. - Left External Carotid Artery, cerebral angiogram. It reveals a normal course and caliber of the distal branches of middle meningeal artery, occipital and superficial temporal artery. - Right Internal Carotid Artery. It reveals a normal course and caliber of the intracranial segments.There is visualization of a prominent caliber posterior communicating artery suggestive of a ELECTRIC RANGE SERVICER variant. The middle cerebral artery has anormal course and caliber, the rest of the segments have alternating areas of moderate stenosis following a beading pattern. The anterior cerebral artery has a normal course and caliber of its A1 segment, the rest ofits segments have alternating areas of moderate and severe stenosis followinga beading pattern. The venous phase shows a normal drainage. - Right External Carotid Artery. It reveals a normal course and caliber of the distal branches of middle meningeal artery, occipital and superficial temporal artery. -Right Vertebral artery. It reveals a V4 segment with a distal moderate stenosis. There is not further visualization of the vertebrobasilar junction or basilar arterydue due to contrast washout however we cant rule out severe stenosis or occlusion as a selective angiogram of the right vertebra; artery was ot performed. Impression: - Multiple alternating areas of moderate to severe stenosis affecting anterior and posterior circulation following a beading pattern. This could represent severe intracranial atherosclerosis or QUALITY MANAGEMENT NURSE vasculitis, recommend clinical correlation. > Dictated by Special Education Tutor I, Omar Jack MD have personally reviewed and interpreted this examination/study. > Interpreting Provider: Omar Jack MD on 09/20/2025 3:49 PM us Tae Fisher MD IR ORDERABLES Final Result * XR Chest 1Vw (09/20/2025 9:10 AM ANIMAL HUMANE AGENT SUPERVISOR) Anatomical Region Laterality Modality Chest Digital Radiogra phy 09/20/2025 9:24 AM ANIMAL HUMANE AGENT SUPERVISOR Narrative 09/20/2025 11:45 AM ANIMAL HUMANE AGENT SUPERVISOR PROCEDURE: XR CHEST 1VW, DATE/TIME OF EXAM: 09/20/2025 9:10 AM, LOCATION [facility] INDICATION: N18.6: ESRD (end stage renal disease) (HCC) ADDITIONAL CLINICAL INFORMATION: Ordering Provider Reason For Exam: check tunneled HD cather placement Technologist Note: Additional: COMPARISON: Chest radiograph 04/28/2025 FINDINGS/IMPRESSION: *Right chest wall tunneled hemodialysis catheter with tip terminating in the right atrium *A loop recorder is seen overlying the left lower chest/upper abdomen There is no focal consolidation, pleural effusion, or pneumothorax.Normal pulmonary vasculature.The cardiomediastinal silhouette is normal. There is no acute displaced fracture of the bony thorax. > Dictated by Vargas Bach M.D., (cardiac cath lab radiology technologist). > Dictated by Special Education Tutor IGhulam MD have personally reviewed and interpreted this examination/study. > Interpreting Provider: Ghulam Boykin MD on 09/20/2025 11:45 AM Procedure Note Ghulam Boykin MD - 09/20/2025 PROCEDURE: XR CHEST 1VW, DATE/TIME OF EXAM: 09/20/2025 9:10 AM, LOCATION [facility] INDICATION: N18.6: ESRD (end stage renal disease) ([facility]) ADDITIONAL CLINICAL INFORMATION: Ordering Provider Reason For Exam: check tunneled HD cather placement Technologist Note: Additional: COMPARISON: Chest radiograph 04/28/2025 FINDINGS/IMPRESSION: *Right chest wall tunneled hemodialysis catheter with tip terminating in the right atrium *A loop recorder is seen overlying the left lower chest/upper abdomen There is no focal consolidation, pleural effusion, orpneumothorax.Normal pulmonary vasculature.The cardiomediastinal silhouette is normal. Thereis no acute displaced fracture of the bony thorax. > Dictated by Vargas Bach M.D., (cardiac cath lab radiology technologist). > Dictated by Special Education Tutor Ghulam Coles MD have personally reviewed and interpreted this examination/study. > Interpreting Provider: Ghulam Boykin MD on 09/20/2025 11:45 AM Tae Fisher MD DIAGNOSTIC IMAGING ORDERABLE S Final Result * GLUCOSE - POINT OF CARE (09/20/2025 8:09 AM ANIMAL HUMANE AGENT SUPERVISOR) Glucose WB/POC 84 70 - 99 mg/dL 09/20/2025 8:19 AM ANIMAL HUMANE AGENT SUPERVISOR [facility] Specimen Type Arterial/C apillary 09/20/2025 8:19 AM [facility] Blood BLOOD SPECIMEN / Unknown 09/20/2025 8:09 AM ANIMAL HUMANE AGENT SUPERVISOR 09/20/2025 8:19 AM ANIMAL HUMANE AGENT SUPERVISOR us Tae Fisher MD LAB - POINT OF CARE ORDERABL ES Final Result Performing Organization Address City/[facility]/ZIP Co de Phone Number [address] [address], [place] [phone] * TROPONIN-I HIGH SENSITIVE REFLEX 1HOUR (09/20/2025 5:42 AM ANIMAL HUMANE AGENT SUPERVISOR) Troponin I High Sensitive 13 <=14 ng/L 09/20/2025 6:53 AM [facility] Delta Troponin I HS 0 <6 ng/L 09/20/2025 6:53 AM [facility] Blood BLOOD SPECIMEN / Unknown Lab Venipuncture / Unknown 09/20/2025 5:42 AM ANIMAL HUMANE AGENT SUPERVISOR 09/20/2025 6:10 AM ANIMAL HUMANE AGENT SUPERVISOR us Tae Fisher MD LAB - CHEMISTRY ORDERABLES F inal Result Performing Organization Address [facility] Co de Phone Number [address] [address], [place] [phone] * (ABNORMAL) PTH INTACT W/O CALCIUM (09/20/2025 4:12 AM ANIMAL HUMANE AGENT SUPERVISOR) PTH Intact 1,836.5(H) 8.0 - 77.0 pg/mL 09/20/2025 5:51 AM [facility] Blood BLOOD SPECIMEN / Unknown Lab Venipuncture / Unknown 09/20/2025 4:12 AM ANIMAL HUMANE AGENT SUPERVISOR 09/20/2025 4:47 AM ANIMAL HUMANE AGENT SUPERVISOR us Tae Fisher MD LAB - CHEMISTRY ORDERABLES F inal Result Performing Organization Address City/[facility]/ZIP Co de Phone Number [address] [address], [place] [phone] * (ABNORMAL) PHOSPHORUS BLOOD (09/20/2025 4:12 AM ANIMAL HUMANE AGENT SUPERVISOR) Pathologist [facility] Phosphorus 6.6(H) 2.9 - 5.1 mg/dL 09/20/2025 5:38 AM [facility] Blood BLOOD SPECIMEN / Unknown Lab Venipuncture / Unknown 09/20/2025 4:12 AM ANIMAL HUMANE AGENT SUPERVISOR 09/20/2025 5:10 AM ANIMAL HUMANE AGENT SUPERVISOR Tae Fisher MD LAB - CHEMISTRY ORDERABLES F inal Result [address] [address], [facility] [phone] * MAGNESIUM BLOOD (09/20/2025 4:12 AM ANIMAL HUMANE AGENT SUPERVISOR) Pathologist [facility] Magnesium 2.2 1.6 - 2.6 mg/dL 09/20/2025 5:44 AM [facility] Blood BLOOD SPECIMEN / Unknown Lab Venipuncture / Unknown 09/20/2025 4:12 AM ANIMAL HUMANE AGENT SUPERVISOR 09/20/2025 5:11 AM ANIMAL HUMANE AGENT SUPERVISOR Tae Fisher MD LAB - CHEMISTRY ORDERABLES F inal Result [address] [address], [facility] [phone] * (ABNORMAL) CBC W AUTO DIFFERENTIAL (09/20/2025 4:12 AM ANIMAL HUMANE AGENT SUPERVISOR) Pathologist [facility] WBC 8.8 4.0 - 10.7 x10E9/L 09/20/2025 5:20 AM [facility] RBC Count 4.01 3.90 - 5.20 x10E12/L 09/20/2025 5:20 AM [facility] Hemoglobin 11.4(L) 11.9 - 15.8 g/dL 09/20/2025 5:20 AM [facility] Hematocrit 35.5 34.8 - 46.1 % 09/20/2025 5:20 AM [facility] MCV 88.5 80.0 - 98.0 fL 09/20/2025 5:20 AM [facility] MCH 28.4 26.7 - 33.6 pg 09/20/2025 5:20 AM [facility] MCHC 32.1 31.7 - 36.3 g/dL 09/20/2025 5:20 AM [facility] RDW-CV 14.9(H) 11.3 - 14.8 % 09/20/2025 5:20 AM [facility] Platelet Count 312 150 - 420 x10E9/L 09/20/2025 5:20 AM [facility] MPV 10.5 7.8 - 11.4 fL 09/20/2025 5:20 AM [facility] Neutrophil % 55.8 41.0 - 74.0 % 09/20/2025 5:20 AM [facility] Lymphocyte % 29.5 17.0 - 47.0 % 09/20/2025 5:20 AM [facility] Monocyte % 10.7 3.0 - 11.0 % 09/20/2025 5:20 AM [facility] Eosinophil % 2.8 0.0 - 7.0 % 09/20/2025 5:20 AM [facility] Basophil % 0.9 0.0 - 1.6 % 09/20/2025 5:20 AM [facility] Immature Granulocytes % 0.3 0.0 - 1.0 % 09/20/2025 5:20 AM [facility] Neutrophil Absolute 4.91 1.60 - 7.50 x10E9/L 09/20/2025 5:20 AM [facility] Lymphocyte Absolute 2.60 1.00 - 4.40 x10E9/L 09/20/2025 5:20 AM [facility] Monocyte Absolute 0.94 0.15 - 1.00 x10E9/L 09/20/2025 5:20 AM [facility] Eosinophil Absolute 0.25 0.00 - 0.60 x10E9/L 09/20/2025 5:20 AM [facility] Basophil Absolute 0.08 0.00 - 0.13 x10E9/L 09/20/2025 5:20 AM [facility] Blood BLOOD SPECIMEN / Unknown Lab Venipuncture / Unknown 09/20/2025 4:[address] [facility] 09/20/2025 5:[address] [facility] us Tae Fisher MD LAB - HEMATOLOGY ORDERABLES Final Result Performing Organization Address [facility]/State/ZIP Co de Phone Number [facility] [address] [place] [phone] [phone] * (ABNORMAL) COMPREHENSIVE METABOLIC PANEL (09/20/2025 4:[address] [facility]) BUN 43(H) 7 - 26 mg/dL 09/20/2025 5:44 AM [facility] Creatinine 9.14(H) 0.56 - 0.96 mg/dL 09/20/2025 5:44 AM [facility] Sodium 140 136 - 145 mmol/L 09/20/2025 5:44 AM [facility] Potassium 3.7 3.5 - 4.5 mmol/L 09/20/2025 5:44 AM [facility] Chloride 95(L) 98 - 107 mmol/L 09/20/2025 5:44 AM [facility] CO2 29 22 - 29 mmol/L 09/20/2025 5:44 AM [facility] Glucose 69(L) 70 - 99 mg/dL 09/20/2025 5:44 AM [facility] Calcium 10.7(H) 8.4 - 10.2 mg/dL 09/20/2025 5:44 AM [facility] Protein Total 7.0 6.0 - 8.3 g/dL 09/20/2025 5:44 AM [facility] Albumin 3.5 3.4 - 5.0 g/dL 09/20/2025 5:44 AM [facility] Bilirubin Total 0.5 0.2 - 1.2 mg/dL 09/20/2025 5:44 AM [facility] Alkaline Phosphatase 114 40 - 150 U/L 09/20/2025 5:44 AM [facility] ALT 13 5 - 55 U/L 09/20/2025 5:44 AM [facility] AST 14 5 - 34 U/L 09/20/2025 5:44 AM [facility] Anion Gap 16 6 - 16 09/20/2025 5:44 AM [facility] BUN/Creatinine Ratio 5(L) 7 - 23 09/20/2025 5:44 AM [facility] Osmolality Calculated 299(H) 275 - 295 mOsm/kg 09/20/2025 5:44 AM [facility] Albumin/Globulin Ratio 1.0(L) 1.1 - 2.3 09/20/2025 5:44 AM [facility] eGFR by CKD-EPI 4(L) >=90 mL/min/1.7 3 m2 09/20/2025 5:44 AM [facility] Comment:Estimated Glomerular Filtration Rate (eGFR) calculated using the CKD-EPI Creatinine Equation (2020), per the National Kidney Foundation and [place] Society of Nephrology recommendations. Blood BLOOD SPECIMEN / Unknown Lab Venipuncture / Unknown 09/20/2025 4:12 AM ANIMAL HUMANE AGENT SUPERVISOR 09/20/2025 5:[address] [facility] us Tae Fisher MD LAB - CHEMISTRY ORDERABLES F inal Result [address] [address], [facility] [phone] * (ABNORMAL) CBC W/O DIFFERENTIAL (09/20/2025 4:[address] [facility]) WBC 8.8 4.0 - 10.7 x10E9/L 09/20/2025 5:20 AM [facility] RBC Count 4.01 3.90 - 5.20 x10E12/L 09/20/2025 5:20 AM [facility] Hemoglobin 11.4(L) 11.9 - 15.8 g/dL 09/20/2025 5:20 AM [facility] Hematocrit 35.5 34.8 - 46.1 % 09/20/2025 5:20 AM [facility] MCV 88.5 80.0 - 98.0 fL 09/20/2025 5:20 AM [facility] MCH 28.4 26.7 - 33.6 pg 09/20/2025 5:20 AM [facility] MCHC 32.1 31.7 - 36.3 g/dL 09/20/2025 5:20 AM [facility] RDW-CV 14.9(H) 11.3 - 14.8 % 09/20/2025 5:20 AM [facility] Platelet Count 312 150 - 420 x10E9/L 09/20/2025 5:20 AM [facility] MPV 10.5 7.8 - 11.4 fL 09/20/2025 5:20 AM [facility] Blood BLOOD SPECIMEN / Unknown Lab Venipuncture / Unknown 09/20/2025 4:12 AM ANIMAL HUMANE AGENT SUPERVISOR 09/20/2025 5:[address] [facility] us Tae Fisher MD LAB - HEMATOLOGY ORDERABLES Final Result Performing Organization Address City/State/[facility] Co de Phone Number [facility] [address] [place] [phone], [facility] [phone] * (ABNORMAL) BASIC METABOLIC PANEL (CALCIUM TOTAL) (09/20/2025 4:12 AM ANIMAL HUMANE AGENT SUPERVISOR) BUN 43(H) 7 - 26 mg/dL 09/20/2025 5:44 AM [facility] Creatinine 9.14(H) 0.56 - 0.96 mg/dL 09/20/2025 5:44 AM [facility] Sodium 140 136 - 145 mmol/L 09/20/2025 5:44 AM [facility] Potassium 3.7 3.5 - 4.5 mmol/L 09/20/2025 5:44 AM [facility] Chloride 95(L) 98 - 107 mmol/L 09/20/2025 5:44 AM [facility] CO2 29 22 - 29 mmol/L 09/20/2025 5:44 AM [facility] Glucose 69(L) 70 - 99 mg/dL 09/20/2025 5:44 AM [facility] Calcium 10.7(H) 8.4 - 10.2 mg/dL 09/20/2025 5:44 AM [facility] Anion Gap 16 6 - 16 09/20/2025 5:44 AM [facility] BUN/Creatinine Ratio 5(L) 7 - 23 09/20/2025 5:44 AM [facility] Osmolality Calculated 299(H) 275 - 295 mOsm/kg 09/20/2025 5:44 AM [facility] eGFR by CKD-EPI 4(L) >=90 mL/min/1.7 3 m2 09/20/2025 5:44 AM [facility] Comment: Estimated Glomerular Filtration Rate (eGFR) calculated using the CKD-EPI Creatinine Equation (2020), per the National Kidney Foundation and [place] [employer] Nephrology recommendations. Estimated Glomerular Filtration Rate (eGFR) calculated using the CKD-EPI Creatinine Equation (2020), per the National Kidney Foundation and [place] [employer] of Nephrology recommendations. Blood BLOOD SPECIMEN / Unknown Lab Venipuncture / Unknown 09/20/2025 4:[address] [facility] 09/20/2025 5:[address] [facility] us Tae Fisher MD LAB - CHEMISTRY ORDERABLES F inal Result [facility] [address] [place] [address], [facility] [phone] * HEMOGLOBIN A1C (09/20/2025 4:[address] [facility]) Hemoglobin A1c 5.0 <=5.6 % 09/20/2025 9:16 AM [facility] Estimated Average Glucose 97 mg/dL 09/20/2025 9:16 AM [facility] Comment: HbA1c Interpretation: Normal : < 5.7% Pre-diabetes: 5.7-6.4% Diabetes: Equal to or greater than 6.5% Test results diagnostic of diabetes should be repeated for confirmation. Treatment target values recommended by ADA and other clinical organizations should be used to evaluate metabolic control in patients. Reference: [place] [employer] Association, Standards of Care in Diabetes -2020 In patients 70 years and older consider HbA1c target range of 7.0-7.5% (Reference: Yo Steinberg et al. JAMDA. 2012) The Sebia assay for the measurement of HbA1c is a National Glycohemoglobin Standardization Program (NGSP) certified method. Blood BLOOD SPECIMEN / Unknown Lab Venipuncture / Unknown 09/20/2025 4:12 AM ANIMAL HUMANE AGENT SUPERVISOR 09/20/2025 5:[address] [facility] Tae Fisher MD LAB - CHEMISTRY ORDERABLES F inal Result Performing Organization Address [facility]/ZIP Co de Phone Number [address] [address], [place] [phone] * (ABNORMAL) LIPID PROFILE (09/20/2025 4:12 AM ANIMAL HUMANE AGENT SUPERVISOR) Cholesterol Total 232(H) <200 mg/dL 09/20/2025 5:44 AM [facility] HDL 65 >40 mg/dL 09/20/2025 5:44 AM [facility] Comment: ATP III Classification of HDL Cholesterol: <40 mg/dL: Considered a major risk factor. >60 mg/dL: Considered a negative risk factor. LDL Calculated 148(H) <100 mg/dL 09/20/2025 5:44 AM [facility] Comment: ATP III Classification of LDL Cholesterol: <100 mg/dL: Optimal 100 - 129 mg/dL: Near Optimal/Above Optimal 130 - 159 mg/dL: Borderline High 160 - 189 mg/dL: High >190 mg/dL: Very High LDL is calculated using the Friedewald equation. Triglycerides 95 <150 mg/dL 09/20/2025 5:44 AM [facility] Comment: ATP III Classification of Triglycerides: <150 mg/dL: Normal 150 - 199 mg/dL: Borderline High 200 - 400 mg/dL: High >500 mg/dL: Very High Blood BLOOD SPECIMEN / Unknown Lab Venipuncture / Unknown 09/20/2025 4:12 AM ANIMAL HUMANE AGENT SUPERVISOR 09/20/2025 5:[address] [facility] Tae Fisher MD LAB - CHEMISTRY ORDERABLES F inal Result Performing Organization Address City/[facility]/ZIP Co de Phone Number [address] [address], [place] [phone] * TROPONIN-I HIGH SENSITIVE BASELINE + 1HR (09/20/2025 4:12 AM ANIMAL HUMANE AGENT SUPERVISOR) Troponin I High Sensitive 13 <=14 ng/L 09/20/2025 5:48 AM ANIMAL HUMANE AGENT SUPERVISOR [facility] Blood BLOOD SPECIMEN / Unknown Lab Venipuncture / Unknown 09/20/2025 4:12 AM ANIMAL HUMANE AGENT SUPERVISOR 09/20/2025 5:11 AM ANIMAL HUMANE AGENT SUPERVISOR us Tae Fisher MD LAB - CHEMISTRY ORDERABLES F inal Result [facility] [address] [place] [address], [facility] [phone] * CT HEAD WO CONTRAST (09/19/2025 11:52 PM ANIMAL HUMANE AGENT SUPERVISOR) Anatomical Region Laterality Modality Head Computed Tomogra phy 09/19/2025 11:5 6 PM ANIMAL HUMANE AGENT SUPERVISOR Impressions 09/20/2025 12:15 AM ANIMAL HUMANE AGENT SUPERVISOR IMPRESSION: 1.No CT evidence of acute hemorrhage, herniation, or large territorial infarct. 2.Please note CT is insensitive to small infarcts particularly in the posterior fossa, if there is continued clinical concern MRI can be obtained. 3.Encephalomalacia in the left shin radiata is new new since 04/30/2025. 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 > Dictated by Alberto David MD, (cardiac cath lab radiology technologist). > Dictated by Alberto David MD 09/19/2025 11:56 PM > Dictated by Special Education Tutor I, Tra Russell MD have personally reviewed and interpreted this examination/study. > Interpreting Provider: Tra Russell MD on 09/20/2025 12:15 AM Narrative 09/20/2025 12:15 AM ANIMAL HUMANE AGENT SUPERVISOR PROCEDURE: CT HEAD WO CONTRAST, DATE/TIME OF EXAM: 09/19/2025 11:52 PM, LOCATION [facility] INDICATION: I63.9: Ischemic stroke (HCC) G93.40: Acute encephalopathy ADDITIONAL CLINICAL INFORMATION: Ordering Provider Reason For Exam: cva Technologist Note: Additional: TECHNIQUE: CT of the head was performed without contrast according to standard protocol. COMPARISON: CT head 04/30/2025 FINDINGS: No acute intracranial hemorrhage or intra- or extra-axial fluid collections are identified. There is mild cerebral volume loss with associated ex vacuo ventricular dilatation. The basal cisterns are patent. No mass effect or midline shift is seen. Chronic infarct in the right ELECTRIC RANGE SERVICER territory. Additional encephalomalacia in the left shin radiata appears new since 04/30/2025. The roy-white matter differentiation otherwise appears normal. Periventricular white matter hypoattenuation is a nonspecific finding that may be indicative of chronic small vessel ischemic disease. There is atherosclerotic calcification of the carotid siphons. The visualized portions of the orbits, paranasal sinuses, and mastoids appear normal. No acute calvarial fracture is identified. Procedure Note Tra Russell MD - 09/20/2025 PROCEDURE: CT HEAD WO CONTRAST, DATE/TIME OF EXAM: 09/19/2025 11:52PM, LOCATION [facility] INDICATION: I63.9: Ischemic stroke (HCC) G93.40: Acute encephalopathy ADDITIONAL CLINICAL INFORMATION: Ordering Provider Reason For Exam: cva Technologist Note: Additional: TECHNIQUE: CT of the head was performed without contrast according to standard protocol. COMPARISON: CT head 04/30/2025 FINDINGS: No acute intracranial hemorrhage or intra- or extra-axial fluidcollections are identified. There is mild cerebral volume loss with associated exvacuo ventricular dilatation. The basal cisterns are patent. No mass effect or midline shift is seen. Chronic infarct in the right ELECTRIC RANGE SERVICER territory. Additional encephalomalacia in the left shin radiata appears new since 04/30/2025. The roy-white matter differentiation otherwise appearsnormal. Periventricular white matter hypoattenuation is a nonspecific findingthat may be indicative of chronic small vessel ischemic disease. There is atherosclerotic calcification of the carotid siphons. The visualized portions of the orbits, paranasal sinuses, and mastoids appear normal. No acute calvarial fracture is identified. IMPRESSION: 1.No CT evidence of acute hemorrhage, herniation, or large territorial infarct. 2.Please note CT is insensitive to small infarcts particularly in the posterior fossa, if there is continued clinical concern MRI can be obtained. 3.Encephalomalacia in the left shin radiata is new new since04/30/2025. 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 > Dictated by Alberto David MD, (cardiac cath lab radiology technologist). > Dictated by Alberto David MD 09/19/2025 11:56 PM > Dictated by Special Education Tutor I, Tra Russell MD have personally reviewed and interpreted this examination/study. 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) Secondary hyperparathyroidism (HCC) Secondary hyperparathyroidism (of renal origin) ESRD (end stage renal disease) (HCC) End stage renal disease History of ischemic right MCA stroke Transient ischemic attack (TIA), and cerebral infarction without residual deficits Primary hypertension Unspecified essential hypertension Secondary hyperparathyroidism (HCC) Secondary hyperparathyroidism (of renal origin) Type 2 diabetes mellitus with unspecified complications (HCC) Hx of major depression Personal history of other mental disorder Severe protein-calorie malnutrition (HCC) Other severe protein-calorie malnutrition * Assessment & Plan Note - Cherelle Islas DO - 09/30/2025 5:55 PM ANIMAL HUMANE AGENT SUPERVISOR Associated Problem(s): Severe protein-calorie malnutrition (HCC) - Nutrition consulted and followed throughout admission AL HUMANE AGENT SUPERVISOR * Assessment & Plan Note - Cherelle Islas DO - 09/30/2025 1:23 PM ANIMAL HUMANE AGENT SUPERVISOR Associated Problem(s): History of ischemic right MCA stroke -Initially admitted to stroke team found to have ischemic stroke, continue aspirin 81mg, Brilinta 90 mg started this admission, Lipitor increased from 40 to 80 mg -PT OT recommending SNF AL HUMANE AGENT SUPERVISOR * Assessment & Plan Note - Cherelle Islas DO - 09/30/2025 1:23 PM ANIMAL HUMANE AGENT SUPERVISOR Associated Problem(s): Ischemic stroke (HCC) -Initially admitted to stroke team found to have ischemic stroke, continue aspirin 81mg, Brilinta 90 mg started this admission, Lipitor increased from 40 to 80 mg -PT OT recommending SNF AL HUMANE AGENT SUPERVISOR * Assessment & Plan Note - Cherelle Islas DO - 09/30/2025 1:23 PM ANIMAL HUMANE AGENT SUPERVISOR Associated Problem(s): ESRD (end stage renal disease) (HCC) -Nephrology following for maintenance dialysis AL HUMANE AGENT SUPERVISOR * Assessment & Plan Note - Cherelle Islas DO - 09/30/2025 1:23 PM ANIMAL HUMANE AGENT SUPERVISOR Associated Problem(s): Secondary hyperparathyroidism (HCC) -Nephrology following for maintenance dialysis AL HUMANE AGENT SUPERVISOR * Assessment & Plan Note - Cherelle Islas DO - 09/30/2025 1:23 PM ANIMAL HUMANE AGENT SUPERVISOR Associated Problem(s): Primary hypertension -Continue Coreg 25 mg twice daily AL HUMANE AGENT SUPERVISOR * Assessment & Plan Note - Cherelle Islas DO - 09/30/2025 1:23 PM ANIMAL HUMANE AGENT SUPERVISOR Associated Problem(s): Type 2 diabetes mellitus with unspecified complications (HCC) -A1c 4.5 -Discontinue Accu-Cheks and sliding scale insulin, will monitor glucose on daily labs AL HUMANE AGENT SUPERVISOR * Assessment & Plan Note - Cherelle Islas DO - 09/30/2025 1:23 PM ANIMAL HUMANE AGENT SUPERVISOR Associated Problem(s): Hx of major depression -Continue home Effexor AL HUMANE AGENT SUPERVISOR * Assessment & Plan Note - Cherelle Islas DO - 09/29/2025 7:58 AM ANIMAL HUMANE AGENT SUPERVISOR Associated Problem(s): History of ischemic right MCA stroke -Initially admitted to stroke team found to have ischemic stroke, continue aspirin 81mg, Brilinta 90 mg started this admission, Lipitor increased from 40 to 80 mg -PT OT recommending SNF AL HUMANE AGENT SUPERVISOR * Assessment & Plan Note - Cherelle Islas DO - 09/29/2025 7:58 AM ANIMAL HUMANE AGENT SUPERVISOR Associated Problem(s): Ischemic stroke (HCC) -Initially admitted to stroke team found to have ischemic stroke, continue aspirin 81mg, Brilinta 90 mg started this admission, Lipitor increased from 40 to 80 mg -PT OT recommending SNF AL HUMANE AGENT SUPERVISOR * Assessment & Plan Note - Cherelle Isals DO - 09/29/2025 7:58 AM ANIMAL HUMANE AGENT SUPERVISOR Associated Problem(s): ESRD (end stage renal disease) (HCC) -Nephrology following for maintenance dialysis AL HUMANE AGENT SUPERVISOR * Assessment & Plan Note - Cherelle Islas DO - 09/29/2025 7:58 AM ANIMAL HUMANE AGENT SUPERVISOR Associated Problem(s): Secondary hyperparathyroidism (HCC) -Nephrology following for maintenance dialysis AL HUMANE AGENT SUPERVISOR * Assessment & Plan Note - Cherelle Islas DO - 09/29/2025 7:58 AM ANIMAL HUMANE AGENT SUPERVISOR Associated Problem(s): Primary hypertension -Continue Coreg 25 mg twice daily AL HUMANE AGENT SUPERVISOR * Assessment & Plan Note - Cherelle Islas DO - 09/29/2025 7:58 AM ANIMAL HUMANE AGENT SUPERVISOR Associated Problem(s): Type 2 diabetes mellitus with unspecified complications (HCC) -A1c 4.5 -Discontinue Accu-Cheks and sliding scale insulin, will monitor glucose on daily labs AL HUMANE AGENT SUPERVISOR * Assessment & Plan Note - Cherelle Islas DO - 09/29/2025 7:58 AM ANIMAL HUMANE AGENT SUPERVISOR Associated Problem(s): Hx of major depression -Continue home Effexor AL HUMANE AGENT SUPERVISOR * Assessment & Plan Note - Cherelle Islas DO - 09/28/2025 10:59 AM ANIMAL HUMANE AGENT SUPERVISOR Associated Problem(s): History of ischemic right MCA stroke -Initially admitted to stroke team found to have ischemic stroke, continue aspirin 81mg, Brilinta 90 mg started this admission, Lipitor increased from 40 to 80 mg -PT OT recommending SNF AL HUMANE AGENT SUPERVISOR AL HUMANE AGENT SUPERVISOR * Assessment & Plan Note - Cherelle Islas DO - 09/28/2025 10:59 AM ANIMAL HUMANE AGENT SUPERVISOR Associated Problem(s): Ischemic stroke (HCC) -Initially admitted to stroke team found to have ischemic stroke, continue aspirin 81mg, Brilinta 90 mg started this admission, Lipitor increased from 40 to 80 mg -PT OT recommending SNF AL HUMANE AGENT SUPERVISOR AL HUMANE AGENT SUPERVISOR * Assessment & Plan Note - Cherelle Islas DO - 09/28/2025 10:59 AM ANIMAL HUMANE AGENT SUPERVISOR Associated Problem(s): ESRD (end stage renal disease) (HCC) -Nephrology following for maintenance dialysis AL HUMANE AGENT SUPERVISOR AL HUMANE AGENT SUPERVISOR * Assessment & Plan Note - Cherelle Islas DO - 09/28/2025 10:59 AM ANIMAL HUMANE AGENT SUPERVISOR Associated Problem(s): Secondary hyperparathyroidism (HCC) -Nephrology following for maintenance dialysis AL HUMANE AGENT SUPERVISOR AL HUMANE AGENT SUPERVISOR * Assessment & Plan Note - Cherelle Islas DO - 09/28/2025 10:59 AM ANIMAL HUMANE AGENT SUPERVISOR Associated Problem(s): Primary hypertension -Continue Coreg 25 mg twice daily AL HUMANE AGENT SUPERVISOR AL HUMANE AGENT SUPERVISOR * Assessment & Plan Note - Cherelle Islas DO - 09/28/2025 8:21 AM ANIMAL HUMANE AGENT SUPERVISOR Associated Problem(s): Type 2 diabetes mellitus with unspecified complications (HCC) -A1c 4.5 -Discontinue Accu-Cheks and sliding scale insulin, will monitor glucose on daily labs AL HUMANE AGENT SUPERVISOR * Assessment & Plan Note - Cherelle Islas DO - 09/28/2025 8:21 AM ANIMAL HUMANE AGENT SUPERVISOR Associated Problem(s): Hx of major depression -Continue home Effexor AL HUMANE AGENT SUPERVISOR * Assessment & Plan Note - Cherelle Islas DO - 09/27/2025 2:10 PM ANIMAL HUMANE AGENT SUPERVISOR Associated Problem(s): Hx of major depression -Continue home Effexor AL HUMANE AGENT SUPERVISOR * Assessment & Plan Note - Cherelle Islas DO - 09/27/2025 2:10 PM ANIMAL HUMANE AGENT SUPERVISOR Associated Problem(s): History of ischemic right MCA stroke - Initially admitted to stroke team found to have ischemic stroke, continue aspirin 81mg, Brilinta 90 mg started this admission, Lipitor increased from 40 to 80 mg -PT OT recommending SNF AL HUMANE AGENT SUPERVISOR * Assessment & Plan Note - Cherelle Islas DO - 09/27/2025 2:10 PM ANIMAL HUMANE AGENT SUPERVISOR Associated Problem(s): Ischemic stroke (HCC) - Initially admitted to stroke team found to have ischemic stroke, continue aspirin 81mg, Brilinta 90 mg started this admission, Lipitor increased from 40 to 80 mg -PT OT recommending SNF AL HUMANE AGENT SUPERVISOR * Assessment & Plan Note - Cherelle Islas DO - 09/27/2025 2:10 PM ANIMAL HUMANE AGENT SUPERVISOR Associated Problem(s): ESRD (end stage renal disease) (HCC) -Nephrology following for maintenance dialysis AL HUMANE AGENT SUPERVISOR * Assessment & Plan Note - Cherelle Islas DO - 09/27/2025 2:10 PM ANIMAL HUMANE AGENT SUPERVISOR Associated Problem(s): Secondary hyperparathyroidism (HCC) -Nephrology following for maintenance dialysis AL HUMANE AGENT SUPERVISOR * Assessment & Plan Note - Cherelle Islas DO - 09/27/2025 2:10 PM ANIMAL HUMANE AGENT SUPERVISOR Associated Problem(s): Primary hypertension - Continue Coreg 25 mg twice daily AL HUMANE AGENT SUPERVISOR * Assessment & Plan Note - Cherelle Islas DO - 09/27/2025 2:10 PM ANIMAL HUMANE AGENT SUPERVISOR Associated Problem(s): Type 2 diabetes mellitus with unspecified complications (HCC) -A1c 4.5 -Discontinue Accu-Cheks and sliding scale insulin, will monitor glucose on daily labs AL HUMANE AGENT SUPERVISOR * Assessment & Plan Note - Cherelle Islas DO - 09/26/2025 8:35 AM ANIMAL HUMANE AGENT SUPERVISOR Associated Problem(s): History of ischemic right MCA stroke - Initially admitted to stroke team found to have ischemic stroke, continue aspirin 81mg, Brilinta 90 mg started this admission, Lipitor increased from 40 to 80 mg -PT OT recommending SNF AL HUMANE AGENT SUPERVISOR * Assessment & Plan Note - Cherelle Islas DO - 09/26/2025 8:35 AM ANIMAL HUMANE AGENT SUPERVISOR Associated Problem(s): Ischemic stroke (HCC) - Initially admitted to stroke team found to have ischemic stroke, continue aspirin 81mg, Brilinta 90 mg started this admission, Lipitor increased from 40 to 80 mg -PT OT recommending SNF AL HUMANE AGENT SUPERVISOR * Assessment & Plan Note - Cherelle Islas DO - 09/26/2025 8:35 AM ANIMAL HUMANE AGENT SUPERVISOR Associated Problem(s): ESRD (end stage renal disease) (HCC) -Nephrology following for maintenance dialysis AL HUMANE AGENT SUPERVISOR * Assessment & Plan Note - Cherelle Islas DO - 09/26/2025 8:35 AM ANIMAL HUMANE AGENT SUPERVISOR Associated Problem(s): Secondary hyperparathyroidism (HCC) -Nephrology following for maintenance dialysis AL HUMANE AGENT SUPERVISOR * Assessment & Plan Note - Cherelle Islas DO - 09/26/2025 8:35 AM ANIMAL HUMANE AGENT SUPERVISOR Associated Problem(s): Primary hypertension - Continue Coreg 25 mg twice daily AL HUMANE AGENT SUPERVISOR * Assessment & Plan Note - Cherelle Islas DO - 09/26/2025 8:35 AM ANIMAL HUMANE AGENT SUPERVISOR Associated Problem(s): Type 2 diabetes mellitus with unspecified complications (HCC) -A1c 4.5 -Discontinue Accu-Cheks and sliding scale insulin, will monitor glucose on daily labs AL HUMANE AGENT SUPERVISOR * Assessment & Plan Note - Cherelle Islas DO - 09/26/2025 8:35 AM ANIMAL HUMANE AGENT SUPERVISOR Associated Problem(s): Hx of major depression -Continue home Effexor AL HUMANE AGENT SUPERVISOR * Assessment & Plan Note - Cherelle Islas DO - 09/25/2025 3:03 PM ANIMAL HUMANE AGENT SUPERVISOR Associated Problem(s): ESRD (end stage renal disease) (HCC) -Nephrology following for maintenance dialysis AL HUMANE AGENT SUPERVISOR AL HUMANE AGENT SUPERVISOR * Assessment & Plan Note - Cherelle Islas DO - 09/25/2025 3:03 PM ANIMAL HUMANE AGENT SUPERVISOR Associated Problem(s): Type 2 diabetes mellitus with unspecified complications (HCC) -A1c 4.5 -Discontinue Accu-Cheks and sliding scale insulin, will monitor glucose on daily labs AL HUMANE AGENT SUPERVISOR AL HUMANE AGENT SUPERVISOR * Assessment & Plan Note - Cherelle Islas DO - 09/25/2025 3:03 PM ANIMAL HUMANE AGENT SUPERVISOR Associated Problem(s): Ischemic stroke (HCC) - Initially admitted to stroke team found to have ischemic stroke, continue aspirin 81mg, Brilinta 90 mg started this admission, Lipitor increased from 40 to 80 mg -PT OT recommending SNF AL HUMANE AGENT SUPERVISOR AL HUMANE AGENT SUPERVISOR * Assessment & Plan Note - Cherelle Islas DO - 09/25/2025 3:03 PM ANIMAL HUMANE AGENT SUPERVISOR Associated Problem(s): History of ischemic right MCA stroke - Initially admitted to stroke team found to have ischemic stroke, continue aspirin 81mg, Brilinta 90 mg started this admission, Lipitor increased from 40 to 80 mg -PT OT recommending SNF AL HUMANE AGENT SUPERVISOR * Assessment & Plan Note - Cherelle Islas DO - 09/25/2025 3:03 PM ANIMAL HUMANE AGENT SUPERVISOR Associated Problem(s): Secondary hyperparathyroidism (HCC) -Nephrology following for maintenance dialysis AL HUMANE AGENT SUPERVISOR * Assessment & Plan Note - Cherelle Islas DO - 09/25/2025 3:03 PM ANIMAL HUMANE AGENT SUPERVISOR Associated Problem(s): Primary hypertension - Continue Coreg 25 mg twice daily AL HUMANE AGENT SUPERVISOR * Assessment & Plan Note - Cherelle Islas DO - 09/25/2025 3:03 PM ANIMAL HUMANE AGENT SUPERVISOR Associated Problem(s): Hx of major depression -Continue home Effexor AL HUMANE AGENT SUPERVISOR * Assessment & Plan Note - Velma Salcedo MD - 09/24/2025 5:48 PM ANIMAL HUMANE AGENT SUPERVISOR Associated Problem(s): History of ischemic right MCA stroke -see above AL HUMANE AGENT SUPERVISOR * Assessment & Plan Note - Velma Salcedo MD - 09/24/2025 5:48 PM ANIMAL HUMANE AGENT SUPERVISOR Associated Problem(s): Ischemic stroke (HCC) -see above AL HUMANE AGENT SUPERVISOR * Assessment & Plan Note - Velma Salcedo MD - 09/24/2025 5:48 PM ANIMAL HUMANE AGENT SUPERVISOR Associated Problem(s): Primary hypertension -see above AL HUMANE AGENT SUPERVISOR * Assessment & Plan Note - Velma Salcedo MD - 09/24/2025 5:48 PM ANIMAL HUMANE AGENT SUPERVISOR Associated Problem(s): ESRD (end stage renal disease) (HCC) ESRD on HD - hemodialysis catheter placement confirmed with CXR 09/20 - dialysis schedule MWF - last dialysis 09/21 Hyperparathyroidism - Vitamin D low (19.9) -DC'd vitamin D supplementation per nephrology due to hypercalcemia, nephrology recommending SestaMIBI scan -Started on send Salit 60 mg daily -Recommending ENT consult for possible 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 AL HUMANE AGENT SUPERVISOR * Assessment & Plan Note - Velma Salcedo MD - 09/24/2025 5:48 PM ANIMAL HUMANE AGENT SUPERVISOR Associated Problem(s): Secondary hyperparathyroidism (HCC) ESRD on HD - hemodialysis catheter placement confirmed with CXR 09/20 - dialysis schedule MWF - last dialysis 09/21 Hyperparathyroidism - Vitamin D low (19.9) -DC'd vitamin D supplementation per nephrology due to hypercalcemia, nephrology recommending SestaMIBI scan -Started on send Salit 60 mg daily -Recommending ENT consult for possible 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 AL HUMANE AGENT SUPERVISOR * Assessment & Plan Note - Velma Salcedo MD - 09/24/2025 5:48 PM ANIMAL HUMANE AGENT SUPERVISOR Associated Problem(s): Type 2 diabetes mellitus with unspecified complications (HCC) On SSI AL HUMANE AGENT SUPERVISOR * Assessment & Plan Note - Velma Salcedo MD - 09/24/2025 5:48 PM ANIMAL HUMANE AGENT SUPERVISOR Associated Problem(s): Hx of major depression -Continue home venlafaxine AL HUMANE AGENT SUPERVISOR * Assessment & Plan Note - Velma Salcedo MD - 09/23/2025 5:13 PM ANIMAL HUMANE AGENT SUPERVISOR Associated Problem(s): History of ischemic right MCA stroke -see above AL HUMANE AGENT SUPERVISOR * Assessment & Plan Note - Velma Salcedo MD - 09/23/2025 5:13 PM ANIMAL HUMANE AGENT SUPERVISOR Associated Problem(s): Ischemic stroke (HCC) -see above AL HUMANE AGENT SUPERVISOR * Assessment & Plan Note - Velma Salcedo MD - 09/23/2025 5:13 PM ANIMAL HUMANE AGENT SUPERVISOR Associated Problem(s): Primary hypertension -see above AL HUMANE AGENT SUPERVISOR * Assessment & Plan Note - Velma Salcedo MD - 09/23/2025 5:13 PM ANIMAL HUMANE AGENT SUPERVISOR Associated Problem(s): ESRD (end stage renal disease) (HCC) ESRD on HD - hemodialysis catheter placement confirmed with CXR 09/20 - dialysis schedule MWF - last dialysis 09/21 Hyperparathyroidism - Vitamin D low (19.9) -DC'd vitamin D supplementation per nephrology due to hypercalcemia, nephrology recommending SestaMIBI scan -Started on send Salit 60 mg daily -Recommending ENT consult for possible 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 AL HUMANE AGENT SUPERVISOR * Assessment & Plan Note - Velma Salcedo MD - 09/23/2025 5:13 PM ANIMAL HUMANE AGENT SUPERVISOR Associated Problem(s): Secondary hyperparathyroidism (HCC) ESRD on HD - hemodialysis catheter placement confirmed with CXR 09/20 - dialysis schedule MWF - last dialysis 09/21 Hyperparathyroidism - Vitamin D low (19.9) -DC'd vitamin D supplementation per nephrology due to hypercalcemia, nephrology recommending SestaMIBI scan -Started on send Salit 60 mg daily -Recommending ENT consult for possible 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 AL HUMANE AGENT SUPERVISOR * Assessment & Plan Note - Velma Salcedo MD - 09/23/2025 5:13 PM ANIMAL HUMANE AGENT SUPERVISOR Associated Problem(s): Type 2 diabetes mellitus with unspecified complications (HCC) On SSI AL HUMANE AGENT SUPERVISOR * Assessment & Plan Note - Velma Salcedo MD - 09/23/2025 5:13 PM ANIMAL HUMANE AGENT SUPERVISOR Associated Problem(s): Hx of major depression -Continue home venlafaxine AL HUMANE AGENT SUPERVISOR * Assessment & Plan Note - Kimberley Mukherjee MD - 09/22/2025 8:55 PM ANIMAL HUMANE AGENT SUPERVISOR Associated Problem(s): ESRD (end stage renal disease) (HCC) ESRD on HD - hemodialysis catheter placement confirmed with CXR 09/20 - dialysis schedule MWF - last dialysis 09/21 Hyperparathyroidism - Vitamin D low (19.9) -DC'd vitamin D supplementation per nephrology due to hypercalcemia, nephrology recommending SestaMIBI scan -Started on send Salit 60 mg daily -Recommending ENT consult for possible 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 AL HUMANE AGENT SUPERVISOR AL HUMANE AGENT SUPERVISOR * Assessment & Plan Note - Kimberley Mukherjee MD - 09/22/2025 8:55 PM ANIMAL HUMANE AGENT SUPERVISOR Associated Problem(s): Secondary hyperparathyroidism (HCC) ESRD on HD - hemodialysis catheter placement confirmed with CXR 09/20 - dialysis schedule MWF - last dialysis 09/21 Hyperparathyroidism - Vitamin D low (19.9) -DC'd vitamin D supplementation per nephrology due to hypercalcemia, nephrology recommending SestaMIBI scan -Started on send Salit 60 mg daily -Recommending ENT consult for possible 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 AL HUMANE AGENT SUPERVISOR AL HUMANE AGENT SUPERVISOR * Assessment & Plan Note - Kimberley Mukherjee MD - 09/22/2025 7:39 AM ANIMAL HUMANE AGENT SUPERVISOR Associated Problem(s): History of ischemic right MCA stroke -see above AL HUMANE AGENT SUPERVISOR * Assessment & Plan Note - Kimberley Mukherjee MD - 09/22/2025 7:39 AM ANIMAL HUMANE AGENT SUPERVISOR Associated Problem(s): Ischemic stroke (HCC) -see above AL HUMANE AGENT SUPERVISOR * Assessment & Plan Note - Kimberley Mukherjee MD - 09/22/2025 7:39 AM ANIMAL HUMANE AGENT SUPERVISOR Associated Problem(s): Primary hypertension -see above AL HUMANE AGENT SUPERVISOR * Assessment & Plan Note - Kimberley Mukherjee MD - 09/22/2025 7:39 AM ANIMAL HUMANE AGENT SUPERVISOR Associated Problem(s): Type 2 diabetes mellitus with unspecified complications (HCC) On SSI AL HUMANE AGENT SUPERVISOR * Assessment & Plan Note - Kimberley Mukherjee MD - 09/22/2025 7:39 AM ANIMAL HUMANE AGENT SUPERVISOR Associated Problem(s): Hx of major depression -Continue home venlafaxine AL HUMANE AGENT SUPERVISOR * Assessment & Plan Note - Kimberley Mukherjee MD - 09/21/2025 11:16 AM ANIMAL HUMANE AGENT SUPERVISOR Associated Problem(s): Hx of major depression -Continue home venlafaxine AL HUMANE AGENT SUPERVISOR AL HUMANE AGENT SUPERVISOR AL HUMANE AGENT SUPERVISOR * Assessment & Plan Note - Kimberley Mukherjee MD - 09/21/2025 9:54 AM ANIMAL HUMANE AGENT SUPERVISOR Associated Problem(s): History of ischemic right MCA stroke -see above AL HUMANE AGENT SUPERVISOR AL HUMANE AGENT SUPERVISOR AL HUMANE AGENT SUPERVISOR * Assessment & Plan Note - Kimberley Mukherjee MD - 09/21/2025 9:54 AM ANIMAL HUMANE AGENT SUPERVISOR Associated Problem(s): Ischemic stroke (HCC) -see above AL HUMANE AGENT SUPERVISOR AL HUMANE AGENT SUPERVISOR AL HUMANE AGENT SUPERVISOR * Assessment & Plan Note - Kimberley Mukherjee MD - 09/21/2025 9:54 AM ANIMAL HUMANE AGENT SUPERVISOR Associated Problem(s): Primary hypertension -see above AL HUMANE AGENT SUPERVISOR AL HUMANE AGENT SUPERVISOR AL HUMANE AGENT SUPERVISOR * Assessment & Plan Note - Kimberley Mukherjee MD - 09/21/2025 9:54 AM ANIMAL HUMANE AGENT SUPERVISOR Associated Problem(s): ESRD (end stage renal disease) (HCC) ESRD on HD - hemodialysis catheter placement confirmed with CXR 09/20 - dialysis schedule MWF - per nephrology no dialysis F 09/20 Hyperparathyroidism - Nephrology recommending PTHrp, Vitamin D, Ionized Calcium (ordered) - Vitamin D low (19.9) - supplement D3 5000 units AL HUMANE AGENT SUPERVISOR * Assessment & Plan Note - Kimberley Mukherjee MD - 09/21/2025 9:54 AM ANIMAL HUMANE AGENT SUPERVISOR Associated Problem(s): Secondary hyperparathyroidism (HCC) ESRD on HD - hemodialysis catheter placement confirmed with CXR 09/20 - dialysis schedule MWF - per nephrology no dialysis F 09/20 Hyperparathyroidism - Nephrology recommending PTHrp, Vitamin D, Ionized Calcium (ordered) - Vitamin D low (19.9) - supplement D3 5000 units AL HUMANE AGENT SUPERVISOR * Assessment & Plan Note - Kimberley Mukherjee MD - 09/21/2025 9:54 AM ANIMAL HUMANE AGENT SUPERVISOR Associated Problem(s): Type 2 diabetes mellitus with unspecified complications (HCC) On SSI AL HUMANE AGENT SUPERVISOR * Assessment & Plan Note - Kimberley Mukherjee MD - 09/20/2025 10:00 AM ANIMAL HUMANE AGENT SUPERVISOR Associated Problem(s): ESRD (end stage renal disease) (HCC) -HD per nephrology AL HUMANE AGENT SUPERVISOR AL HUMANE AGENT SUPERVISOR AL HUMANE AGENT SUPERVISOR * Assessment & Plan Note - Kimberley Mukherjee MD - 09/20/2025 10:00 AM ANIMAL HUMANE AGENT SUPERVISOR Associated Problem(s): Secondary hyperparathyroidism (HCC) -HD per nephrology AL HUMANE AGENT SUPERVISOR * Assessment & Plan Note - Nasreen Avendano - 09/20/2025 9:27 AM CSTAssociated Problem(s): History of ischemic right MCA stroke AL HUMANE AGENT SUPERVISOR * Assessment & Plan Note - Nasreen Avendano - 09/20/2025 9:27 AM CSTAssociated Problem(s): Ischemic stroke (HCC) AL HUMANE AGENT SUPERVISOR * Assessment & Plan Note - Nasreen Avendano - 09/20/2025 9:27 AM CSTAssociated Problem(s): Primary hypertension AL HUMANE AGENT SUPERVISOR * Assessment & Plan Note - Nasreen Avendano - 09/20/2025 9:27 AM CSTAssociated Problem(s): ESRD (end stage renal disease) (HCC) AL HUMANE AGENT SUPERVISOR * Assessment & Plan Note - Nasreen Avendano - 09/20/2025 9:27 AM CSTAssociated Problem(s): Type 2 diabetes mellitus with unspecified complications (HCC) AL HUMANE AGENT SUPERVISOR * Assessment & Plan Note - Kimberley Mukherjee MD - 09/20/2025 8:16 AM ANIMAL HUMANE AGENT SUPERVISOR Associated Problem(s): Type 2 diabetes mellitus with unspecified complications (HCC) On SSI AL HUMANE AGENT SUPERVISOR AL HUMANE AGENT SUPERVISOR * Assessment & Plan Note - Kimberley Mukherjee MD - 09/20/2025 8:16 AM ANIMAL HUMANE AGENT SUPERVISOR Associated Problem(s): Ischemic stroke (HCC) -see above AL HUMANE AGENT SUPERVISOR AL HUMANE AGENT SUPERVISOR * Assessment & Plan Note - Kimberley Mukherjee MD - 09/20/2025 8:16 AM ANIMAL HUMANE AGENT SUPERVISOR Associated Problem(s): History of ischemic right MCA stroke -see above AL HUMANE AGENT SUPERVISOR * Assessment & Plan Note - Kimberley Mukherjee MD - 09/20/2025 8:16 AM ANIMAL HUMANE AGENT SUPERVISOR Associated Problem(s): Primary hypertension -see above AL HUMANE AGENT SUPERVISOR * Assessment & Plan Note - Kimberley Mukherjee MD - 09/20/2025 8:16 AM ANIMAL HUMANE AGENT SUPERVISOR Associated Problem(s): Hx of major depression -Continue home venlafaxine AL HUMANE AGENT SUPERVISOR documented in this encounter Administered Medications Inactive Administered Medications - up to 3 most recent administrations Medication Order MAR Action Action Date Dose Rate Site 0.9% NaCl infusion Intravenous, CONTINUOUS PRN, Starting on Tue09/20/25 at 1107, Until Tue09/20/25 at 1355, Intra-op $ New Bag/Syringe 09/20/2025 11:07 AM ANIMAL HUMANE AGENT SUPERVISOR 500 mL 0.9% NaCl injection 1-10 mL 1-10 mL, Intracatheter, PRN, other, peripheral line flush, Starting on Sarah 09/19/25 at 2220, Until 09/30/25 at 2248, Flush peripheral IV catheter with 1-10 mL of normal saline before and after medications and prn to clear blood from the line or to verify patency. 0.9% NaCl injection 3 mL 3 mL, Intracatheter, EVERY 8 HOURS, First dose on Sarah 09/19/25 at 2300, Until Discontinued, Flush peripheral IV catheter with 3 mL of normal saline every 8 hours. $ Given 09/30/2025 4:59 PM ANIMAL HUMANE AGENT SUPERVISOR 3 mL $ Given 09/27/2025 5:56 AM ANIMAL HUMANE AGENT SUPERVISOR 3 mL $ Given 09/26/2025 9:40 PM ANIMAL HUMANE AGENT SUPERVISOR 3 mL acetaminophen (Tylenol) tablet 650 mg 650 mg, Oral, EVERY 6 HOURS PRN, mild pain, Starting on Sarah 09/19/25 at 2222, Until 09/30/25 at 2248, Patient preference for lesser PRN pain meds may be honored when the patient requests a less strong medication, a lower dose, or a less intrusive route of administration when the lesser drug, dose and route have been ordered for the patient. This patient request must be documented in the MAR. For example, if both oral and IV options are ordered for the same pain severity, give oral first unless patient cannot tolerate oral intake. aspirin chew tablet 81 mg 81 mg, Enteral Tube, DAILY, First dose (after last modification) on 09/21/25 at 0900, Until Discontinued $ Given 09/21/2025 8:13 AM ANIMAL HUMANE AGENT SUPERVISOR 81 mg NG Tube aspirin chew tablet 81 mg 81 mg, Oral, DAILY, First dose (after last modification) on 09/22/25 at 0900, Until Discontinued $ Given 09/30/2025 10:47 AM ANIMAL HUMANE AGENT SUPERVISOR 81 mg $ Given 09/29/2025 11:48 AM ANIMAL HUMANE AGENT SUPERVISOR 81 mg $ Given 09/28/2025 7:57 AM ANIMAL HUMANE AGENT SUPERVISOR 81 mg aspirin suppository 300 mg 300 mg, Rectal, DAILY, First dose on Tue09/20/25 at 0930, Until Discontinued $ Given 09/20/2025 2:49 PM ANIMAL HUMANE AGENT SUPERVISOR 300 mg Butto ck aspirin suppository 300 mg 300 mg, Rectal, DAILY, First dose (after last modification) on 09/22/25 at 0900, Until Discontinued atorvastatin (Lipitor) tablet 80 mg 80 mg, Oral, AT BEDTIME, First dose (after last modification) on 09/21/25 at 2100, Until Discontinued $ Given 09/30/2025 8:52 PM ANIMAL HUMANE AGENT SUPERVISOR 80 mg $ Given 09/29/2025 9:24 PM ANIMAL HUMANE AGENT SUPERVISOR 80 mg $ Given 09/28/2025 9:22 PM ANIMAL HUMANE AGENT SUPERVISOR 80 mg carvedilol (Coreg) tablet 12.5 mg 12.5 mg, Enteral Tube, 2 TIMES DAILY WITH MEALS, First dose (after last modification) on 09/21/25 at 0800, Until Discontinued, Take with food $ Given 09/21/2025 8:13 AM ANIMAL HUMANE AGENT SUPERVISOR 12.5 mg NG Tu be carvedilol (Coreg) tablet 25 mg 25 mg, Oral, 2 TIMES DAILY WITH MEALS, First dose (after last modification) on 09/21/25 at 1800, Until Discontinued, Take with food $ Given 09/30/2025 10:49 AM ANIMAL HUMANE AGENT SUPERVISOR 25 mg $ Given 09/29/2025 5:47 PM ANIMAL HUMANE AGENT SUPERVISOR 25 mg $ Given 09/28/2025 5:41 PM ANIMAL HUMANE AGENT SUPERVISOR 25 mg cinacalcet (Sensipar) tablet 60 mg 60 mg, Oral, DAILY, First dose on 09/22/25 at 1200, Until Discontinued, Do not crush, chew, or cut in half., Medication is restricted to nephrology. Has nephrology been consulted? YesIndications:Hypercalcemia,Secondary Hyperparathyroidism $ Given 09/23/2025 12:32 PM ANIMAL HUMANE AGENT SUPERVISOR 60 mg $ Given 09/22/2025 12:18 PM ANIMAL HUMANE AGENT SUPERVISOR 60 mg cinacalcet (Sensipar) tablet 60 mg 60 mg, Oral, DAILY, First dose (after last modification) on Tue09/25/25 at 0900, Until Discontinued, Do not crush, chew, or cut in half., Medication is restricted to nephrology. Has nephrology been consulted? YesIndications:Hypercalcemia,Secondary Hyperparathyroidism $ Given 09/30/2025 10:47 AM ANIMAL HUMANE AGENT SUPERVISOR 60 mg $ Given 09/29/2025 11:48 AM ANIMAL HUMANE AGENT SUPERVISOR 60 mg $ Given 09/28/2025 7:57 AM ANIMAL HUMANE AGENT SUPERVISOR 60 mg dextrose IV 12.5 g 12.5 g, Intravenous, PRN, other, Bedside Glucose less than 70 mg/dL -If NOT able to eat and/or NPO and with IV Access, Starting on Sarah 09/19/25 at 2250, Until 09/30/25 at 2248, If NOT able to eat and/or NPO and with IV Access: For Bedside Glucose 54-69 mg/dL give 12.5 g Dextrose IV STAT Re-check and Re-treat blood glucose EVERY 10-25 minutes until blood glucose GREATER than or equal to 80 mg/dl. NOTIFY PROVIDER OF HYPOGLYCEMIC EVENT. $ Given 09/20/2025 4:02 PM ANIMAL HUMANE AGENT SUPERVISOR 12.5 g dextrose IV 25 g 25 g, Intravenous, PRN, other, Bedside Glucose less than 70 mg/dL -If NOT able to eat and/or NPO and with IV Access, Starting on Sarah 09/19/25 at 2250, Until 09/30/25 at 2248, If NOT able to eat and/or NPO and with IV Access: For Bedside Glucose LESS than 54 mg/dl verify with a second Bedside Glucose (from a different site) and give 25 g Dextrose IV STAT Re-check and Re-treat blood glucose EVERY - 10-25 minutes until blood glucose GREATER than or equal to 80 mg/dl. - If repeat bedside glucose 54-79 give 12.5 g Dextrose IV STAT NOTIFY PROVIDER OF HYPOGLYCEMIC EVENT. diazePAM (Valium) injection 2.5 mg 2.5 mg, Intravenous, ONCE PRN, other, 30min before LP, 1 dose, Starting on 09/22/25 at 1032, Until 09/22/25 at 1215 $ Given 09/22/2025 12:15 PM ANIMAL HUMANE AGENT SUPERVISOR 2.5 mg fentaNYL (PF) (Sublimaze) injection ONCE PRN, Starting on Tue09/20/25 at 1025, Until Tue09/20/25 at 1355, Intra-op $ Given 09/20/2025 10:43 AM ANIMAL HUMANE AGENT SUPERVISOR 50 mcg $ Given 09/20/2025 10:25 AM ANIMAL HUMANE AGENT SUPERVISOR 50 mcg glucose (Diabetic Use) oral gel Oral, PRN, other, Bedside Glucose less than 70 mg/dL, Starting on Sarah 09/19/25 at 2250, Until Tue09/30/25 at 2248, If able to take oral medications: For Bedside Glucose 54 - 69 mg/dL Give 15 grams of oral carbohydrates - 1 glucose gel (see MAR) If patient refuses glucose gel, then offer: - 4 ounces of fruit juice OR - 4 ounces non-diet soda OR - 8 ounces of fat-free milk For Bedside Glucose LESS than 54 mg/dL verify with a second Bedside Glucose (from a different site) - If pt is symptomatic, do not delay treatment - If accuracy of the POC glucose is in question, confirm glucose with aSTAT laboratory test Give 30 grams of oral carbohydrates - 2 glucose gels (see MAR) If patient refuses glucose gel, then offer: - 8 ounces of fruit juice OR - 8 ounces non-diet soda OR - 16 ounces of fat-free milk Re-check and Re-treat blood glucose EVERY 10-25 minutes until blood glucose GREATER than or equal to 80 mg/dl. - If on recheck, bedside glucose 54-79 mg/dL - Give 15 grams of oral carbohydrates (see above for choices) NOTIFY PROVIDER OF HYPOGLYCEMIC EVENT. $ Given 09/22/2025 9:20 PM ANIMAL HUMANE AGENT SUPERVISOR 15 g heparin 3,000 Units, nitroGLYCERIN 200 mcg/ml in dextrose 5 % 300 mcg, verapamil (Isoptin) 300 mcg 4.6 mL ONCE PRN, Starting on Tue09/20/25 at 1030, Until Tue09/20/25 at 1355, Intra-op $ Given 09/20/2025 10:30 AM ANIMAL HUMANE AGENT SUPERVISOR 1 mL heparin injection 1,000 Units 1,000 Units, Intracatheter, POST-DIALYSIS MULTIPLE, Starting on Tue09/23/25 at 0914, Until Tue09/30/25 at 2248Indications:Dialysis Associated Renal Failure $ Given 09/29/2025 10:51 AM ANIMAL HUMANE AGENT SUPERVISOR 1,000 Units $ Given 09/27/2025 11:23 AM ANIMAL HUMANE AGENT SUPERVISOR 4,100 Units $ Given 09/23/2025 11:30 AM ANIMAL HUMANE AGENT SUPERVISOR 4,100 Units heparin injection 5,000 Units 5,000 Units, Subcutaneous, EVERY 8 HOURS, First dose on Tue09/20/25 at 0845, Until Discontinued $ Given 09/30/2025 4:59 PM ANIMAL HUMANE AGENT SUPERVISOR 5,000 Units Abd Left Lower Quadrant $ Given 09/30/2025 10:47 AM ANIMAL HUMANE AGENT SUPERVISOR 5,000 Units Abd Right Lower Quadrant $ Given 09/29/2025 9:24 PM ANIMAL HUMANE AGENT SUPERVISOR 5,000 Units A bdominal Tissue heparinized saline 2 units/mL infusion Other, CONTINUOUS PRN, Starting on Tue09/20/25 at 0949, Until Tue09/20/25 at 1355, Intra-op $ New Bag/Syringe 09/20/2025 9:49 AM ANIMAL HUMANE AGENT SUPERVISOR 1,500 mL insulin aspart (NovoLOG) pen 0-12 Units 0-12 Units, Subcutaneous, 3 TIMES DAILY WITH MEALS, First dose on Tue09/20/25 at 0800, Until Discontinued, Standard Dose: Correction Insulin Bedside glucose should be done within 30-60 minutes of correction insulin administration. BG (mg/dL) Corrective Action LESS than 70 follow Hypoglycemic guidelines, 70-140 NO Correction insulin, 141-180 GIVE 2 units of insulin, 181-220 GIVE 4 units of insulin, 221-260 GIVE 6 units of insulin, 261-300 GIVE 8 units of insulin, 301-350 GIVE 10 units of insulin Greater than 350 GIVE 12 units of insulin and notify physician., If the patient is NPO; DO NOT HOLD correction insulin If patient is eating meals and has orders for Mealtime insulin, combine and give at the same time. . WASTE DISPOSAL INSTRUCTIONS: Black Bin Disposal required. $ Given 09/25/2025 12:31 PM ANIMAL HUMANE AGENT SUPERVISOR 2 Units Abd Right Lower Quadrant $ Given 09/24/2025 12:40 PM ANIMAL HUMANE AGENT SUPERVISOR 4 Units A bdominal Tissue $ Given 09/22/2025 5:58 PM ANIMAL HUMANE AGENT SUPERVISOR 6 Units Ab d Left Lower Quadrant iopamidol (Isovue 300) 61 % contrast ONCE PRN, Starting on Tue09/20/25 at 0950, Until Tue09/20/25 at 1355, Intra-op $ Given 09/20/2025 11:00 AM ANIMAL HUMANE AGENT SUPERVISOR 100 mL $ Given 09/20/2025 9:50 AM ANIMAL HUMANE AGENT SUPERVISOR 130 mL lidocaine (Xylocaine) 1 % injection Subcutaneous, ONCE PRN, Starting on Tue09/20/25 at 1027, Until Tue09/20/25 at 1355, Intra-op $ Given 09/20/2025 10:27 AM ANIMAL HUMANE AGENT SUPERVISOR 8 mL Right Arm midazolam (Versed) injection Intravenous, ONCE PRN, Starting on Tue09/20/25 at 1043, Until Tue09/20/25 at 1355, Intra-op $ Given 09/20/2025 10:43 AM ANIMAL HUMANE AGENT SUPERVISOR 1 mg ondansetron (disintegrating) (Zofran ODT) tablet 4 mg 4 mg, Oral, EVERY 6 HOURS PRN, nausea/vomiting, Starting on Sarah 09/19/25 at 2222, Until Tue09/30/25 at 2248, Dissolved orally on tongue ondansetron (Zofran) injection 4 mg 4 mg, Intravenous, EVERY 6 HOURS PRN, nausea/vomiting, Starting on Sarah 09/19/25 at 2222, Until Tue09/30/25 at 2248, Administer IV if patient is NPO, actively vomiting, or unable to swallow. polyethylene glycol 3350 (Miralax) packet 17 g 17 g, Oral, DAILY PRN, constipation, Starting on Tue09/20/25 at 0811, Until Tue09/30/25 at 2248, 17 g dose: mix in 8 ounces of water, juice, soda, coffee or tea prior to administration. For bowel prep check for other instructions. senna-docusate (Senokot-S) tablet 1 tablet 1 tablet, Enteral Tube, DAILY, First dose (after last modification) on 09/21/25 at 0900, Until Discontinued $ Given 09/21/2025 8:13 AM ANIMAL HUMANE AGENT SUPERVISOR 1 tablet NG Tube senna-docusate (Senokot-S) tablet 1 tablet 1 tablet, Oral, DAILY, First dose (after last modification) on 09/22/25 at 0900, Until Discontinued $ Given 09/30/2025 10:47 AM ANIMAL HUMANE AGENT SUPERVISOR 1 tablet $ Given 09/29/2025 11:49 AM ANIMAL HUMANE AGENT SUPERVISOR 1 tablet $ Given 09/28/2025 7:57 AM ANIMAL HUMANE AGENT SUPERVISOR 1 tablet ticagrelor (Brilinta) tablet 90 mg 90 mg, Oral, 2 TIMES DAILY, First dose on 09/22/25 at 1315, Until Discontinued $ Given 09/30/2025 8:51 PM ANIMAL HUMANE AGENT SUPERVISOR 90 mg $ Given 09/30/2025 10:47 AM ANIMAL HUMANE AGENT SUPERVISOR 90 mg $ Given 09/29/2025 9:24 PM ANIMAL HUMANE AGENT SUPERVISOR 90 mg venlafaxine XR 24hr (Effexor XR) capsule 150 mg 150 mg, Oral, DAILY WITH DINNER, First dose (after last reorder) on 09/21/25 at 1800, Until Discontinued $ Given 09/30/2025 6:32 PM ANIMAL HUMANE AGENT SUPERVISOR 150 mg $ Given 09/29/2025 5:47 PM ANIMAL HUMANE AGENT SUPERVISOR 150 mg $ Given 09/28/2025 5:41 PM ANIMAL HUMANE AGENT SUPERVISOR 150 mg vitamin D3 (Cholecalciferol) tablet 5,000 Units 5,000 Units, Oral, DAILY, First dose (after last modification) on 09/22/25 at 0900, Until Discontinued, 5000 units = 125 mcg $ Given 09/22/2025 9:03 AM ANIMAL HUMANE AGENT SUPERVISOR 5,000 Units documented in this encounter Active and Recently Administered Medications Times are shown in ANIMAL HUMANE AGENT SUPERVISOR. Scheduled Medication Order 09/28/2025 09/29/2025 09/30/2025 0.9% NaCl injection 3 mL(Linked Group 1) 3 mL, Intracatheter, EVERY 8 HOURS, First dose on Sarah 09/19/25 at 2300, Until Discontinued, Flush peripheral IV catheter with 3 mL of normal saline every 8 hours. 0633 (Not Administered - Provider: Marlin Jeter RN - Reason: Patient sleeping)1314 (Not Administered - Provider: Lois Ruiz RN - Reason: Loss of Access)2147 (Not Administered - Provider: Gilmar Carr RN - Reason: Other) 0535 (Not Administered - Provider: Gilmar Carr RN - Reason: Other)1345 (Not Administered - Provider: Hillary Montalvo RN - Reason: Loss of Access)2123 (Not Administered - Provider: Queta Renee RN - Reason: Loss of Access) 0554 (Not Administered - Provider: Queta Renee RN - Reason: Loss of Access)1659 ($ Given - Provider: Estella Newsome RN) aspirin chew tablet 81 mg(Linked Group 2) 81 mg, Oral, DAILY, First dose (after last modification) on 09/22/25 at 0900, Until Discontinued 0757 ($ Given - Provider: Lois Ruiz RN) 1148 ($ Given - Provider: Hillary Montalvo RN - Comment: off unit) 1047 ($ Given - Provider: Estella Newsome, URBAN) aspirin suppository 300 mg(Linked Group 2) 300 mg, Rectal, DAILY, First dose (after last modification) on Tue09/22/25 at 0900, Until Discontinued 0757 (See Alternative - Provider: Lois Ruiz RN) 1148 (See Alternative - Provider: Hillary Montalvo RN) 1047 (See Alternative - Provider: Estella Newsome RN) atorvastatin (Lipitor) tablet 80 mg 80 mg, Oral, AT BEDTIME, First dose (after last modification) on Tue09/21/25 at 2100, Until Discontinued 2121 ($ Given - Provider: Gilmar Carr, URBAN) 2123 ($ Given - Provider: Queta Renee RN) 2051 ($ Given - Provider: Gilmar Carr, URBAN) carvedilol (Coreg) tablet 25 mg 25 mg, Oral, 2 TIMES DAILY WITH MEALS, First dose (after last modification) on Tue09/21/25 at 1800, Until Discontinued, Take with food 0757 ($ Given - Provider: Lois Ruiz RN)1741 ($ Given - Provider: Lois Ruiz RN) 1122 (Not Administered - Provider: Hillary Montalvo RN - Reason: Other - Comment: pt in dialysis held)1747 ($ Given - Provider: Hillary Montalvo RN) 1049 ($ Given - Provider: Estella Newsome RN)1832 (Not Administered - Provider: Estella Newsome RN - Reason: Patient Condition) cinacalcet (Sensipar) tablet 60 mg 60 mg, Oral, DAILY, First dose (after last modification) on Tue09/25/25 at 0900, Until Discontinued, Do not crush, chew, or cut in half., Medication is restricted to nephrology. Has nephrology been consulted? Yes 0757 ($ Given - Provider: Lois Ruiz RN) 1148 ($ Given - Provider: Hillary Montalvo RN - Comment: pt back from dialysis) 1047 ($ Given - Provider: Estella Newsome RN) heparin injection 1,000 Units 1,000 Units, Intracatheter, POST-DIALYSIS MULTIPLE, Starting on Tue09/23/25 at 0914, Until Tue09/30/25 at 2248 1051 ($ Given - Provider: Radha Bañuelos RN) heparin injection 5,000 Units 5,000 Units, Subcutaneous, EVERY 8 HOURS, First dose on Tue09/20/25 at 0845, Until Discontinued 0634 (Not Administered - Provider: Marlin Jeter RN - Reason: Refused-Patient)1321 ($ Given - Provider: Lois Ruiz RN)212 ($ Given - Provider: Gilmar Carr RN) 0533 ($ Given - Provider: Gilmar Carr RN)1345 ($ Given - Provider: Hillary Montalvo, URBAN)212 ($ Given - Provider: Queta Renee, URBAN) 104 ($ Given - Provider: Estella Newsome RN)165 ($ Given - Provider: Estella Newsome RN) senna-docusate (Senokot-S) tablet 1 tablet 1 tablet, Oral, DAILY, First dose (after last modification) on 09/22/25 at 0900, Until Discontinued 075 ($ Given - Provider: Lois Ruiz RN) 114 ($ Given - Provider: Hillary Montalvo, URBAN) 104 ($ Given - Provider: Estella Newsome, URBAN) ticagrelor (Brilinta) tablet 90 mg 90 mg, Oral, 2 TIMES DAILY, First dose on 09/22/25 at 1315, Until Discontinued 075 ($ Given - Provider: Lois Ruiz RN)2121 ($ Given - Provider: Gilmar Carr RN) 114 ($ Given - Provider: Hillary Montalvo, URBAN - Comment: pt back from dialysis)2123 ($ Given - Provider: Queta Renee, URBAN) 104 ($ Given - Provider: Estella Newsome, URBAN)2050 ($ Given - Provider: Gilmar Carr RN) venlafaxine XR 24hr (Effexor XR) capsule 150 mg 150 mg, Oral, DAILY WITH DINNER, First dose (after last reorder) on 09/21/25 at 1800, Until Discontinued 174 ($ Given - Provider: Lois Ruiz RN) 1747 ($ Given - Provider: Hillary Montalvo, RN) 1832 ($ Given - Provider: Estella Newsome, RN) PRN Medication Order 09/28/2025 09/29/2025 09/30/2025 0.9% NaCl injection 1-10 mL(Linked Group 1) 1-10 mL, Intracatheter, PRN, other, peripheral line flush, Starting on Sarah 09/19/25 at 2220, Until 09/30/25 at 2248, Flush peripheral IV catheter with 1-10 mL of normal saline before and after medications and prn to clear blood from the line or to verify patency. acetaminophen (Tylenol) tablet 650 mg 650 mg, Oral, EVERY 6 HOURS PRN, mild pain, Starting on Sarah 09/19/25 at 2222, Until 09/30/25 at 2248, Patient preference for lesser PRN pain meds may be honored when the patient requests a less strong medication, a lower dose, or a less intrusive route of administration when the lesser drug, dose and route have been ordered for the patient. This patient request must be documented in the MAR. For example, if both oral and IV options are ordered for the same pain severity, give oral first unless patient cannot tolerate oral intake. dextrose IV 12.5 g(Linked Group 3) 12.5 g, Intravenous, PRN, other, Bedside Glucose less than 70 mg/dL -If NOT able to eat and/or NPO and with IV Access, Starting on Sarah 09/19/25 at 2250, Until 09/30/25 at 2248, If NOT able to eat and/or NPO and with IV Access: For Bedside Glucose 54-69 mg/dL give 12.5 g Dextrose IV STAT Re-check and Re-treat blood glucose EVERY 10-25 minutes until blood glucose GREATER than or equal to 80 mg/dl. NOTIFY PROVIDER OF HYPOGLYCEMIC EVENT. dextrose IV 25 g(Linked Group 3) 25 g, Intravenous, PRN, other, Bedside Glucose less than 70 mg/dL -If NOT able to eat and/or NPO and with IV Access, Starting on Sarah 09/19/25 at 2250, Until Tue09/30/25 at 2248, If NOT able to eat and/or NPO and with IV Access: For Bedside Glucose LESS than 54 mg/dl verify with a second Bedside Glucose (from a different site) and give 25 g Dextrose IV STAT Re-check and Re-treat blood glucose EVERY - 10-25 minutes until blood glucose GREATER than or equal to 80 mg/dl. - If repeat bedside glucose 54-79 give 12.5 g Dextrose IV STAT NOTIFY PROVIDER OF HYPOGLYCEMIC EVENT. glucose (Diabetic Use) oral gel Oral, PRN, other, Bedside Glucose less than 70 mg/dL, Starting on Sarah 09/19/25 at 2250, Until Tue09/30/25 at 2248, If able to take oral medications: For Bedside Glucose 54 - 69 mg/dL Give 15 grams of oral carbohydrates - 1 glucose gel (see MAR) If patient refuses glucose gel, then offer: - 4 ounces of fruit juice OR - 4 ounces non-diet soda OR - 8 ounces of fat-free milk For Bedside Glucose LESS than 54 mg/dL verify with a second Bedside Glucose (from a different site) - If pt is symptomatic, do not delay treatment - If accuracy of the POC glucose is in question, confirm glucose with aSTAT laboratory test Give 30 grams of oral carbohydrates - 2 glucose gels (see MAR) If patient refuses glucose gel, then offer: - 8 ounces of fruit juice OR - 8 ounces non-diet soda OR - 16 ounces of fat-free milk Re-check and Re-treat blood glucose EVERY 10-25 minutes until blood glucose GREATER than or equal to 80 mg/dl. - If on recheck, bedside glucose 54-79 mg/dL - Give 15 grams of oral carbohydrates (see above for choices) NOTIFY PROVIDER OF HYPOGLYCEMIC EVENT. ondansetron (disintegrating) (Zofran ODT) tablet 4 mg(Linked Group 4) 4 mg, Oral, EVERY 6 HOURS PRN, nausea/vomiting, Starting on Sarah 09/19/25 at 2222, Until Tue09/30/25 at 2248, Dissolved orally on tongue ondansetron (Zofran) injection 4 mg(Linked Group 4) 4 mg, Intravenous, EVERY 6 HOURS PRN, nausea/vomiting, Starting on Sarah 09/19/25 at 2222, Until 09/30/25 at 2248, Administer IV if patient is NPO, actively vomiting, or unable to swallow. polyethylene glycol 3350 (Miralax) packet 17 g 17 g, Oral, DAILY PRN, constipation, Starting on Tue09/20/25 at 0811, Until Tue09/30/25 at 2248, 17 g dose: mix in 8 ounces of water, juice, soda, coffee or tea prior to administration. For bowel prep check for other instructions. Linked Groups Order Group 1: SALINE LOCK, INSERT AND MAINTAIN (CANCELED) Routine, CONTINUOUS, Starting on Tue09/19/25 at 2230, Until Specified, New collection And 0.9% NaCl injection 3 mLJump to med 3 mL, Intracatheter, EVERY 8 HOURS, First dose on Tue09/19/25 at 2300, Until Discontinued, Flush peripheral IV catheter with 3 mL of normal saline every 8 hours. And 0.9% NaCl injection 1-10 mLJump to med 1-10 mL, Intracatheter, PRN, other, peripheral line flush, Starting on Tue09/19/25 at 2220, Until Tue09/30/25 at 2248, Flush peripheral IV catheter with 1-10 mL of normal saline before and after medications and prn to clear blood from the line or to verify patency. Group 2: aspirin chew tablet 81 mgJump to med 81 mg, Oral, DAILY, First dose (after last modification) on Tue09/22/25 at 0900, Until Discontinued Or aspirin suppository 300 mgJump to med 300 mg, Rectal, DAILY, First dose (after last modification) on Tue09/22/25 at 0900, Until Discontinued Group 3: dextrose IV 12.5 gJump to med 12.5 g, Intravenous, PRN, other, Bedside Glucose less than 70 mg/dL -If NOT able to eat and/or NPO and with IV Access, Starting on Tue09/19/25 at 2250, Until Tue09/30/25 at 2248, If NOT able to eat and/or NPO and with IV Access: For Bedside Glucose 54-69 mg/dL give 12.5 g Dextrose IV STAT Re-check and Re-treat blood glucose EVERY 10-25 minutes until blood glucose GREATER than or equal to 80 mg/dl. NOTIFY PROVIDER OF HYPOGLYCEMIC EVENT. Or dextrose IV 25 gJump to med 25 g, Intravenous, PRN, other, Bedside Glucose less than 70 mg/dL -If NOT able to eat and/or NPO and with IV Access, Starting on 09/19/25 at 2250, Until Tue09/30/25 at 2248, If NOT able to eat and/or NPO and with IV Access: For Bedside Glucose LESS than 54 mg/dl verify with a second Bedside Glucose (from a different site) and give 25 g Dextrose IV STAT Re-check and Re-treat blood glucose EVERY - 10-25 minutes until blood glucose GREATER than or equal to 80 mg/dl. - If repeat bedside glucose 54- 79 give 12.5 g Dextrose IV STAT NOTIFY PROVIDER OF HYPOGLYCEMIC EVENT. Group 4: ondansetron (disintegrating) (Zofran ODT) tablet 4 mgJump to med 4 mg, Oral, EVERY 6 HOURS PRN, nausea/vomiting, Starting on Sarah 09/19/25 at 2222, Until Tue09/30/25 at 2248, Dissolved orally on tongue Or ondansetron (Zofran) injection 4 mgJump to med 4 mg, Intravenous, EVERY 6 HOURS PRN, nausea/vomiting, Starting on Sarah 09/19/25 at 2222, Until Tue09/30/25 at 2248, Administer IV if patient is NPO, actively vomiting, or unable to swallow. documented in this encounter Care Teams Clinical Mental Health Counselor Relationship Specialty Start Date End Date Monster Garza MD [address] [id number] PCP - General 12/30/20 documented as of this encounter
--- OUTSIDE RECORDS SUMMARY | 2025-09-19 22:05 | XMS_ITS | Encounter Summary ---
Author Organization [facility] Address [address] [place] [address] Care Team Providers Care Resolution Specialist Name Role Phone Monster Garza MD Primary Care Provider + Reason for Referral * Evaluate (Routine) - Open Specialty Diagnoses / Procedures Referred By Contact Referred To Contact ENT-Otolaryngology Diagnoses Secondary hyperparathyroidism (HCC) Cherelle Islas DO [address] [place] [address] Phone: tel:[phone] fax:[phone] [facility] [address] [place] [phone] Phone: tel: fax: Referral ID Status Reason Start Date Expiration Date V isits Requested Visits Authorized [id number] Open Specialty Services Required 09/30/2025 09/30/2026 1 1 TRICAL FOREMAN * Evaluate & Treat (Routine) - Closed Specialty Diagnoses / Procedures Referred By Rodrigo leon Referred To Contact Nephrology Diagnoses Secondary hyperparathyroidism (HCC) Columba Blanc MD [address] [place] [address] Phone: tel: fax: [facility] [address] [place] [address] Phone: tel: fax: Referral ID Status Reason Start Date Expiration Date V isits Requested Visits Authorized [id number] Closed Specialty Services Required 09/24/2025 09/24/2026 1 1 TRICAL FOREMAN * Evaluate (Routine) - Open Specialty Diagnoses / Procedures Referred By Contact Referred To Contact ENT-Otolaryngology Diagnoses Secondary hyperparathyroidism (HCC) Columba Blanc MD [address] [place] [address] Phone: tel:[phone] fax:[phone] [facility] - ENT [address] [place] [phone] Phone: tel: fax: Referral ID Status Reason Start Date Expiration Date V isits Requested Visits Authorized [id number] Open Specialty Services Required 09/24/2025 09/24/2026 1 1 TRICAL FOREMAN Reason for Visit * Auth/Cert Specialty Diagnoses / Procedures Referred By Contac t Referred To Contact Diagnoses ischemic stroke Referral ID Status Reason Start Date Expiration Date Visits Re quested Visits Authorized [id number] 1 1 Encounter Details Date Type Department Care Team (Latest Contact Info) Description 09/19/2025 10:05 PM ELECTRICAL FOREMAN - 09/30/2025 9:43 PM ELECTRICAL FOREMAN Hospital Encounter [facility] [address] [place] [phone] Tae Fisher MD [facility] [address] Columba Blanc MD [address] [place] [address] Cherelle Islas DO [address] [place] [address] Neurology Discharge Disposition: Group Home Facility Social History Tobacco Use Types Packs/Day [...] and heating? Not hard at all 04/30/2025 [facility] - Occupational Stress Questionnaire Answer Date Recorded [...] any time in the past 12 m [facility], were you homeless or living in a long term (including now)? No 04/30/2025 Comments Unknown Sex and Gender Information Value Date Recorded Sex Assigned at Not on file Legal Sex Female 9:52 AM CDT Gender Identity Not on file Sexual Orientation Not on file documented as of this encounter Last Filed Vital Signs Vital Sign Reading Time Taken Comments Blood Pressure 115/76 09/30/2025 8:48 PM ELECTRICAL FOREMAN Pulse 103 09/30/2025 8:48 PM ELECTRICAL FOREMAN Temperature 36.5 C (97.7 F) 09/30/2025 8:48 PM ELECTRICAL FOREMAN Respiratory Rate 16 09/30/2025 8:48 PM ELECTRICAL FOREMAN Oxygen Saturation 99% 09/30/2025 9:12 PM ELECTRICAL FOREMAN Inhaled Oxygen Concentration - - Weight 70 kg (154 lb 6.4 oz) 09/29/2025 11:05 AM ELECTRICAL FOREMAN Height 165.1 cm (5' 5) 09/20/2025 8:00 AM ELECTRICAL FOREMAN Body Mass Index 25.69 09/20/2025 8:00 AM ELECTRICAL FOREMAN documented in this encounter Functional Status * [...] from the original note were not included. [facility] Internal Medicine Discharge Summary Name: Gena Pierre [...] circulations, raising concern for intracranialatherosclerotic disease versus AIRCREWMAN vasculitis. Diagnostic cerebral angiogram showed multiple alternating areas of moderate to severe stenosis with a beading pattern in both anterior and posterior circulations. Rheumatology was consulted, and after multidisciplinary discussion and review of prior negative vasculitis workup, the etiology was determined to be most consistent with multifocal intracranial atherosclerosis rather than primary AIRCREWMAN vasculitis; repeat lumbar puncture was not pursued. [...] At discharge, she was [facility] a [facility] with a right IJ tunneled dialysis [...] 12:45 AM) Appointment with YULIYA SOTO at [facility] - Cardiology ([phone]) [facility] [address] November 21, 2025 10:30 AM (Arrive by 10:15 AM) Appointment with Debi Carmen at [facility] - Neurology ([phone]) [address] [facility] [address] December 05, 2025 1:00 AM (Arrive by 12:45 AM) Appointment with YULIYA SOTO at [facility] - Cardiology ([phone]) [id number] [facility] [address] January 09, 2026 1:00 AM (Arrive by 12:45 AM) Appointment with YULIYA SMITHLINK at [facility] - Cardiology ([phone]) [address] [facility] [facility] [address] February 13, 2026 1:00 AM (Arrive by 12:45 AM) Appointment with [facility] MARCO CARELINK at [facility] - Cardiology ([phone]) [address] [facility] [facility] [address] March 20, 2026 1:00 AM (Arrive by 12:45 AM) Appointment with [facility] MARCO CARELINK at [facility] Cardiology ([phone]) [address] [facility] [facility] [address] As directed Outpatient Referral: Ref to ENT Otolaryngology - [facility] As directed Outpatient Referral: Ref to Nephrology - [facility] Medication Updates: Plavix transition to [...] Emergency Contact: Adry Smith Mobile Relation: Cousin Appliance Counselor needed? No Secondary Emergency Contact: Alberta Pierre Mobile Relation: Sister Appliance Counselor needed? No Discharge Medications Allergies[1] Medication List [...] DATE/TIME OF EXAM: 09/20/2025 11:44 PM, LOCATION [facility] INDICATION: I63.9: Ischemic stroke (HCC) ADDITIONAL CLINICAL [...] angiogram for evaluation of severe intracranial vasculopathy. Vulcanized Fiber Unit Operator: Dr. Jack Floor Waxer(s): Idris Blanc MD; Santo Hong MD. Vessels: [...] this adult patient was ordered by the travograph operator, administered intravenously in my presence, and [...] patient evaluation, please review the evaluation in [facility]. For details on monitored clinical parameters during the intra-service sedation time, please review the procedure nurse documentation in [facility]. Procedural detail: The risks, benefits, and [...] Following a series of exchanges, a 5 Norwegian 11 cm Glidesheath slender was placed in the radial artery. A radial angiogram was performed through the sheath. Aspasmolytic cocktail containing 3000u heparin, 2.5mg verapamil, and 200mcg of nitroglycerin was admi nistered. A 5 Norwegian Glidecath Rosas 2 diagnostic catheter along with [...] arterial system. Hemostasis was achieved using a The Clearing radial band closure device. Hemostasis was immediate [...] caliber posterior communicating artery suggestive of a STAFF EDUCATOR variant. The middle cerebral artery has a [...] caliber posterior communicating artery suggestive of a STAFF EDUCATOR variant. The middle cerebral artery has a [...] This could represent severe intracranial atherosclerosis or AIRCREWMAN vasculitis, recommend clinical correlation. > Dictated by Piped Buttonhole Machine Operator I, MD Nickie have personally reviewed and interpreted this examination/study. > Interpreting Provider: Omar Jack MD on 09/20/2025 3:49 PM XR Chest 1Vw Result Date: 09/20/2025 PROCEDURE: XR CHEST 1VW, DATE/TIME OF EXAM: 09/20/2025 9:10 AM, LOCATION [facility] INDICATION: N18.6: ESRD (end stage renal disease) ([facility]) ADDITIONAL CLINICAL INFORMATION: OrderingProvider Reason For Exam: [...] thorax. > Dictated by Vargas Bach M.D., (resident engineer). > Dictated by Piped Buttonhole Machine Operator I, Ghulam Boykin MD have personally reviewed and interpreted this examination/study. > Interpreting Provider: Ghulam Boykin MD on 09/20/2025 11:[address] HEAD WO CONTRAST Result Date: 09/20/2025 PROCEDURE: CT HEAD WO CONTRAST, DATE/TIME OF EXAM: 09/19/2025 11:52 PM, LOCATION [facility] INDICATION: I63.9: Ischemic stroke ([facility]) G93.40: Acute encephalopathy ADDITIONAL CLINICALINFORMATION: Ordering Provider [...] is seen. Chronic infarct in the right STAFF EDUCATOR territo ry. Additional encephalomalacia in the left [...] is new new since 04/30/2025. Chronic right STAFF EDUCATOR territory infarct. > Dictated by Alberto Daivd MD, (resident engineer). > Dictated by Alberto David MD 09/19/2025 11:56 PM > Dictated by Piped Buttonhole Machine Operator I, Tra Russell MD have personally reviewed and interpreted this examination/study. > InterpretingProvider: Tra Russell MD on 09/20/2025 12:15 AM MRI Angio Neck Wo Contrast Result Date: 09/19/[address] [address] EXAMINATION: MRA head without contrast, MRA neck without contrast [id number] EXAM DATE/TIME: 09/19/2025 3:29 PM REASON FOR EXAM: stroke, altered mental status COMPARISON: Brain MRI 09/18/2025 TECHNIQUE: 3-D ihdu-kn-syofey imaging was obtained of the intracranial arterial vasculature without the use of contrast agent. Subsequent 3-D rotational MIP reconstructions of the anterior and posterior circulations are created on separate workstation for review. Additionally, 2D gjpm-rw-bsxajr imaging obtained of the cervical arterial vasculature. [...] to hospitalist on-call by Dr. Douglas via [employer] at 09/19/2025 6:54 PM (central time). Referred By: Interpreted By: Micheal Douglas MD, 09/19/2025 6:42 PM MRI Angio Brain Art Bill Wo Cont Result Date: 09/19/[address] [address] EXAMINATION: MRA head without contrast, MRA neck without contrast [id number] EXAM DATE/TIME: 09/19/2025 3:29 PM REASON FOR EXAM: stroke, altered mental status COMPARISON: Brain MRI 09/18/2025 TECHNIQUE: 3-D areb-qy-apuglo imaging was obtained of the intracranial arterial vasculature without the use of contrast agent. Subsequent 3-D rotational MIP reconstructions of the anterior and posterior circulations are created on separate workstation for review. Additionally, 2D ssxu-tg-jueaej imaging obtained of the cervical arterial vasculature. [...] to hospitalist on-call by Dr. Douglas via [employer] at 09/19/2025 6:54 PM (central time). Referred [...] for input(s): MOE HEATON in the last 47999 hours. Microbiology Results (Displays last 21 days [...] AM (Arrive by 12:45 AM) Appointment with [email or web address] CARELINK at [facility] - Cardiology ([phone]) [address] [address] November 21, 2025 10:30 AM (Arrive by 10:15 AM) Appointment with Debi Carmen at [facility] - Neurology ([phone]) [address] [facility] [address] December 05, 2025 1:00 AM (Arrive by 12:45 AM) Appointment with [email or web address] CARELINK at [facility] - Cardiology ([phone]) [address] [address] January 09, 2026 1:00 AM (Arrive by 12:45 AM) Appointment with [email or web address] CARELINK at [facility] - Cardiology ([phone]) [address] [address] February 13, 2026 1:00 AM (Arrive by 12:45 AM) Appointment with [facility] CARELINK at [facility] - Cardiology ([phone]) [address] [facility] [address] [facility] [address] March 20, 2026 1:00 AM (Arrive by 12:45 AM) Appointment with [facility] REVEAL CARELINK at [facility] - Cardiology ([phone]) [address] [facility] [address] [facility] [address] As directed Outpatient Referral: Ref to ENT Otolaryngology - [facility] As directed Outpatient Referral: Ref to Nephrology - [facility] Acute Ischemic Stroke Disease Education: An acute [...] resources on how to quit: https://smokefree.gov/ Email Cancercenter@health.[facility] for more information. Personalized smoking cessation consultations are available. [place] residents have access to free online support: https://quityes.org/?utm_source=[employer]_search -Traffic&utm_medium=paidmedia&utm_campaign=ExperiencedHelp&utm_content=flagship& utm_ term=il--&gad_source=5&gclid=JIY[id number] _BwE [facility] has a smoking cessation program: https://www.[facility].net/practice/[facility]/vqlzqwc-rrextxkqa-sexhrxt s/ [place] offering free ???quit kits:?? https://dss.mo.gov/mhd/participants/pages/quitsmoke.htm https://health.mo.gov/living/wellness/tobacco/smokingandtobacco/tobaccocontrol.p hp Follow up Plan The plan after discharge is to follow up in stroke clinic. You will be discharged to shelter facility Further Resources If you have any questions or concerns, please do not hesitate to call the [facility] Stroke Clinic phone number: [phone] Website: https://www.netTALK/[facility] Calendar[facility]/services/neurology/mwpfrk-qvyqlu-nlnzhbapb For more information regarding ischemic strokes, please find this website: https://www.stroke.org/en/about-stroke/apwzc-lb-lrdqeg/mybofhsr-inlips-jlnen I spent 45 minutes in addition to direct patient care summarizing this patient's hospital stay, reviewing and updating the inpatient problem list, reviewing discharge medications, instructions, discussing discharge care planand discharge follow up labs/studies/doctor visits with the patient and or POA/family. Cherelle Islas DO [facility] 09/30/2025 1:23 PM [1] Allergies Allergen Reactions ??? Lactose GI Discomfort TRICAL FOREMAN TRICAL FOREMAN documented in this encounter Discharge Instructions * Discharge Instructions* Cherelle Islas DO - 09/22/2025 9:11 PM ELECTRICAL FOREMAN NOTE TO FACILITY -Plavix stopped and transitioned to Brilinta for secondary prevention of further strokes -Amlodipine discontinued as it was not needed for blood pressure control -Please ensure patient has transportation to the below appointments if she still at your facility Future Appointments October 31, 2025 1:00 AM (Arrive by 12:45 AM) Appointment with [facility] CARELINK at [facility] - Cardiology ([phone]) [address] [facility] [address] [facility] [address] November 21, 2025 10:30 AM (Arrive by 10:15 AM) Appointment with Debi Carmen at [facility] - Neurology ([phone]) [address] [facility] [address] December 05, 2025 1:00 AM (Arrive by 12:45 AM) Appointment with [facility] RE[facility] CARELINK at [facility] - Cardiology ([phone]) [address] [facility], [facility] [address] [facility] [address] January 09, 2026 1:00 AM (Arrive by 12:45 AM) Appointment with [facility] RE[facility] CARELINK at [facility] - Cardiology ([phone]) [address] [facility], [facility] [address] [facility] [address] February 13, 2026 1:00 AM (Arrive by 12:45 AM) Appointment with [facility] RE[facility] CARELINK at [facility] - Cardiology ([phone]) [address] [facility], [facility] [address] [facility] [address] March 20, 2026 1:00 AM (Arrive by 12:45 AM) Appointment with [facility] CARELINK at [facility] - Cardiology ([phone]) [address] [facility], [facility] [address] [facility] [address] As directed Outpatient Referral: Ref to ENT Otolaryngology - [facility] As directed Outpatient Referral: Ref to Nephrology - [facility] Acute Ischemic Stroke Disease Education: An acute [...] resources on how to quit: https://smokefree.gov/ Email Cancercenter@health.[facility] for more information. Personalized smoking cessation consultations are available. [place] residents have access to free online support: https://quityes.org/?utm_source=[employer]_search -Traffic&utm_medium=paidmedia&utm_campaign=ExperiencedHelp&utm_content=flagship& utm_ term=il--&gad_source=5&gclid=TDDx[id number] _BwE [facility] in [facility] has a smoking cessation program: https://www.[facility].net/practice/[facility]/jexpgsw-focljfhgf-aigdnwm s/ [place] offering free ???quit kits:?? https://dss.mo.gov/mhd/participants/pages/quitsmoke.htm https://health.mo.gov/living/wellness/tobacco/smokingandtobacco/tobaccocontrol.p hp Follow up Plan The plan after discharge is to follow up in stroke clinic. You will be discharged to shelter facility Further Resources If you have any questions or concerns, please do not hesitate to call the [facility] Stroke Clinic phone number: [phone] Website: https://www.Newvem/Canary Calendarucare/services/neurology/yytxan-duftah-cqtctxmgw For more information regarding ischemic strokes, please find this website: https://www.stroke.org/en/about-stroke/ihidj-tf-prltfg/mibwtulc-lcekgz-deujo TRICAL FOREMAN TRICAL FOREMAN TRICAL FOREMAN TRICAL FOREMAN documented in this encounter Medications at Time [...] Care: Actual level of care at discharge: Longterm - Skilled Facility Facility Name: (include name of person confirming admission): [facility] - Confirmed by facility of admissions [facility] [phone] [place] Made Aware of Special Needs (if applicable): aws consultant Call Report to:[phone] Fax D/C Orders to:[phone] Transportation (company and number): [employer] [phone] Certificate of Medical Necessity rationale: FALL RISK, GAIT 0 FEET Date/time of transfer: 09/30/2025 3PM. Accepting MD and contact #: Daniel Completed and Signed [id number] (if applicable): N/A Family/Other Notified of Transfer (name/phone): Extended Emergency Contact Information Primary Emergency Contact: Adry Smith Mobile Relation: Cousin Appliance Counselor needed? No Secondary Emergency Contact: Alberta Pierre Mobile Relation: Sister Appliance Counselor needed? No Authorization Skilled Care: Authorization for Transportation: Verified Qualifying Stay(Skilled Only): YES Comments: SW met with pt at bedside to discuss dc planning. Pt choice is to go to [facility] for SNF. SW spoke to pt cousin (Adry Smith [phone]) regarding discharge planning. Both pt and family [...] dc. Name/Phone number: Bonnie MALGORZATA Marsh [phone] TRICAL FOREMAN * Marcus Casas - 09/30/2025 2:11 PM CST Patient Discharge Transportation Arrangements: To: [facility] Date: 09/30/2025 Time: 4:15PM Ambulance Co:[facility] Trip #: [id number] The Medical Necessity for Non-Emergent Ambulance Transportation form has been completed and is available to print with Facility Transfer paperwork. TRICAL FOREMAN * Cassie Boo RD/NIKO - 09/30/2025 12:11 PM CST BRIEF [...] Skin/Wound: radial puncture site Estimated Needs: KCAL: 2252-6062 (30-35 kcal/kg ABW) Protein (g): 94g (1.2 [...] stay Cassie Boo MS, RD/GERALDON, LD Ascom 8956 TRICAL FOREMAN * Aditi Chan SLP - 09/30/2025 10:51 AM CST [facility] Speech/Language Treatment Patient: Gena Pierre [facility] Record Number: [id number] Date of : 1960 Age: [age] year [...] use of strategies for improved expressive communication. Applied Biology Professor Goal(s): Patient to discharge to appropriate next level of inpatient care. If patient is discharged from the facility, this note serves as a discharge note if further speech therapy visits did not occur. TRICAL FOREMAN * Alicja Diaz - 09/30/2025 10:29 AM CST Updated progress notes sent to patient's Outpatient Hemodialysis Dialysis center. Alicja Diaz Kidney Navigator/ [facility] Ascom: [phone] Office: [phone] TRICAL FOREMAN * Kathy Sebastian MD - 09/30/2025 9:05 AM CST [facility] Nephrology Progress Note Brief Hospital Course: Gena [...] along with chronic infarct in the right STAFF EDUCATOR territory and encephalomalacia. INTERVAL HISTORY: - Patient seen on Nursing counter while on restraints. - Got HD session yesterday ( according to Holiday schedule) with UF of 1 L without any intra dialytic hypotension. - No acute event over last 24 hours. ASSESSMENT # ESRD on maintenance hemodialysis MWF -Access: R-IJ Permcath -Last HD on 09/29 -Yudk-iiqd-MB9-21 mmol/L -Electrolytes: Na-139 mmol/L, K-5.1 mmol/L -Volume [...] Jo-Ann Matias MD at 09/30/2025 2:36 PM ELECTRICAL FOREMAN TRICAL FOREMAN TRICAL FOREMAN Associated attestation - Jo-Ann Matias MD - 09/30/2025 2:36 PM ELECTRICAL FOREMAN I have seen and examined the patient [...] found in the flowsheet documentation) Outcome: Progressing TRICAL FOREMAN * Mike Rock MD - 09/29/2025 5:28 [...] XR 24hr (Effexor XR) capsule 150 mg TRICAL FOREMAN * Radha Bañuelos RN - 09/29/2025 12:07 [...] given: 1040 Report given to: Hillary DUGGAN TRICAL FOREMAN * Radha Bañuelos RN - 09/29/2025 8:54 [...] 09/23/25 CVC Caps changed:na PATIENT EDCUATION: yes TRICAL FOREMAN * Radha Bañuelos RN - 09/29/2025 8:53 AM CST Problem: Hemodynamic Status/Cardiac Output Goal: Patient has stable vital signs and fluid balance Outcome: Progressing Problem: Fluid and Electrolyte Imbalance Goal: Fluid and electrolyte balance are achieved/maintained Outcome: Progressing Problem: Infection Goal: Signs and symptoms of infections are decreased or avoided Outcome: Progressing TRICAL FOREMAN * Cherelle Islas DO - 09/29/2025 7:58 AM CST Images from the original note were not included. [facility] Internal Medicine Progress Note Name: Gena Pierre Room/Bed: [facility] : 1960 65 year old PCP: Monster [...] By: Cherelle Islas DO 09/29/2025 7:58 AM TRICAL FOREMAN * Hillary Montalvo RN - 09/29/2025 7:05 AM CST Pt left unit for dialysis 0705 Returned from dialysis 1125 TRICAL FOREMAN TRICAL FOREMAN * Gilmar Carr RN - 09/29/2025 2:00 [...] found in the flowsheet documentation) Outcome: Progressing TRICAL FOREMAN * Lois Ruiz RN - 09/28/2025 2:05 PM CST [...] Maintains hematologic stability Description: INTERVENTIONS: Outcome: Progressing TRICAL FOREMAN * Mike Rock MD - 09/28/2025 1:10 [...] XR 24hr (Effexor XR) capsule 150 mg TRICAL FOREMAN * Lacie Islase, DO - 09/28/2025 8:21 AM CST Images from the original note were not included. [facility] Internal Medicine Progress Note Name: Gena Pierre [...] By: Cherelle Islas DO 09/28/2025 8:21 AM TRICAL FOREMAN * Marlin Jeter RN - 09/28/2025 2:32 [...] agreement, if implemented Description: INTERVENTIONS Outcome: Progressing TRICAL FOREMAN * BentonBonnie romeroMALGORZATA - 09/27/2025 4:14 PM CST Social Work Progress Note Discharge Plan Disposition: [facility] Transportation: Transportation at discharge: Ambulance Anticipated Discharge Date: 09/30/2025 Contacts: Extended Emergency Contact Information Primary Emergency Contact: Adry Smith Mobile Relation: Cousin Appliance Counselor needed? No Secondary Emergency Contact: Alberta Pierre Mobile Relation: Sister Appliance Counselor needed? No Comments: Pt continues to have mitten restraints. SW spoke to [facility] patient service coordinator Dolores and pt's facility nurse nurse [phone] who stated they are unsure if they can admit pt with mittens or if there is a 24 hour restraint free policy. They stated they would call SW back once they has an answer from management. Per MDR, pt is appropriate for next level of care. Name/Phone number: Bonnie Marsh TIRE DUSTER [phone] TRICAL FOREMAN * Cherelle Islas DO - 09/27/2025 2:09 PM CST Images from the original note were not included. [facility] Internal Medicine Progress Note Name: Gena Pierre Room/Bed: [facility] : 1960 65 year old PCP: Monster [...] By: Cherelle Islas DO 09/27/2025 2:10 PM TRICAL FOREMAN * Renetta Croft RN - 09/27/2025 1:38 [...] Emergency Contact: Adry Smith Mobile Relation: Cousin Appliance Counselor needed? No Secondary Emergency Contact: Alberta Pierre Mobile Relation: Sister Appliance Counselor needed? No Transportation at Discharge: Ambulance: READMISSION RISK SCORE is 17.9 at 1:38 PM 09/27/2025.: Name: Renetta Croft RN TRICAL FOREMAN * Peace Randhawa RN - 09/27/2025 12:34 PM CST Talked to pt's sister Alberta and gave updates on pt's care and LTC referrals [facility] as the third option and I let Alberta know that I'll give those referrals to social work case manager. TRICAL FOREMAN * Ele Damon RN - 09/27/2025 11:20 [...] given: 1100 Report given to: Mariela DUGGAN TRICAL FOREMAN TRICAL FOREMAN * Alicja Diaz - 09/27/2025 10:57 AM CST Patient's OP HD clinic will be operating for the next 2 weeks on their holiday schedule. Patient's OP HD schedule will be adjusted. When discharging please be considerate. Lorraine Arcos Fri [place] Kidney Navigator Office:[phone] Ascom: [phone] TRICAL FOREMAN * Jennifer Catalan, PT - 09/27/2025 8:56 AM CST [facility] Department of Physical Medicine & Rehabilitation Progress Note Patient: Gena Pierre Med Record Number: [id number] Date of : 1960 Age: [age] year old 09/27/25 0800 Missed Visit Missed Visit Procedure Off Floor Patient off the floor Dialysis TRICAL FOREMAN * Ele Damon RN - 09/27/2025 7:45 [...] Caps changed:today post tx PATIENT EDCUATION: yes TRICAL FOREMAN * Ele Damon RN - 09/27/2025 7:43 AM CST Problem: Hemodynamic Status/Cardiac Output Goal: Patient has stable vital signs and fluid balance Outcome: Progressing Problem: Fluid and Electrolyte Imbalance Goal: Fluid and electrolyte balance are achieved/maintained Outcome: Progressing TRICAL FOREMAN * Caitlyn Gilbert RN - 09/27/2025 2:16 [...] found in the flowsheet documentation) Outcome: Progressing TRICAL FOREMAN * Yamel Huddleston SLP - 09/26/2025 3:33 PM CST [facility] Speech/Language Treatment Patient: Gena Pierre [facility] Record Number: [id number] Date of : 1960 Age: [age] year [...] use of strategies for improved expressive communication. Applied Biology Professor Goal(s): Patient to discharge to appropriate next level of inpatient care. If patient is discharged from the facility, this note serves as a discharge note if further speech therapy visits did not occur. TRICAL FOREMAN * Kathy Sebastian MD - 09/26/2025 11:20 AM CST [facility] Nephrology Progress Note Brief Hospital Course: Gena [...] along with chronic infarct in the right STAFF EDUCATOR territory and encephalomalacia. INTERVAL HISTORY: - Patient seen in room while on bed without any oxygen and taking breakfast. - Got HD session yesterday with UF of 600 ml due to intra dialytic hypotension. - No acute event over last 24 hours. ASSESSMENT # ESRD on maintenance hemodialysis [facility] -Access: R-IJ Permcath -Last HD on 09/25 -Sqch-[id number]-[id number] mmol/L -Electrolytes: Na-139 mmol/L, K-3.8 mmol/L -Volume [...] - Next HD on 09/27 according to [facility] schedule. Please refer to the initial nephrology [...] QDAY WITH DINNER [2] Cosigned by Mike Rokc MD at 09/27/2025 6:31 AM ELECTRICAL FOREMAN TRICAL FOREMAN TRICAL FOREMAN Associated attestation - Mike Rock MD - 09/27/2025 6:31 AM ELECTRICAL FOREMAN Nephrology Attending Physician I have seen and examined the patient with house-staff on round. I agree with the house-staff note. 09/26/2025 Mike Rock MD Division of Nephrology * Beatrice Thompson, GUI - 09/26/2025 8:40 AM CST [facility] Physical Medicine and Rehabilitation Occupational Therapy Progress Note Patient: Gena Pierre Med Record Number: [id number] Date of : 1960 Age: [age] year [...] (Comment) (Stand-step) Transfer Device: Gait belt (B OUTBOARD MOTOR MECHANIC) Functional Ambulation: Patient ambulated 3-4 steps to bedside chair with minimal assist x 2 using B OUTBOARD MOTOR MECHANIC. Balance: Balance Scales/Tests Used: Sitting: Static/Dynamic;Standing: Static/Dynamic [...] uses RUE to wash face. Patient declines [id number] to wash face using LUE.) Lower Body Dressing: Maximal Assistance (Requires demonstration and cueing throughout task to don alberto socks.) ACTIVITY TOLERANCE: Activity Tolerance: Requires rest breaks Modified Lagrange: Current Modified Lagrange Score: 5 AM-PAC 6 Clicks Daily Activity [...] to stand with standby assist (Updated, 09/26) Shelter Goal(s): Patient to discharge to appropriate next [...] fall mats in place, all lines/tubes intact. TRICAL FOREMAN * Cherelle Islas DO - 09/26/2025 8:35 AM CST Images from the original note were not included. [facility] Internal Medicine Progress Note Name: Gena Pierre [...] By: Cherelle Islas DO 09/26/2025 8:35 AM TRICAL FOREMAN * Pepito Garcia, [employer] GROUP LEADER - 09/26/2025 8:02 AM CST [facility] Physical Medicine and Rehabilitation Physical Therapy Progress Note Patient: Gena Pierre Med Record Number: [id number] Date of : 1960 Age: [age] year [...] the chair) Transfer Device: Gait belt (B OUTBOARD MOTOR MECHANIC) Gait: Weight Bearing Status: (no restrictions) Distance [...] bed mobility training, and transfer training Modified Lagrange: Current Modified Dona Score: 5 AM-PAC 6 [...] bed for 10 minutes with standby assist Applied Biology Professor Goal(s): Patient to discharge to appropriate next [...] white board, with fall mats in place. TRICAL FOREMAN * Caitlyn Gilbert RN - 09/26/2025 1:39 [...] agreement, if implemented Description: INTERVENTIONS Outcome: Progressing TRICAL FOREMAN * Jada Aguila RN - 09/25/2025 5:56 PM CST Hemodialysis Progress Note Duration: 3.5 hours Access: CVC Rt IJ Total UF volume: BVP:60.1 Medications administered: none Post-HD Treatment Note: Blood returned, CVC lines flushed and capped. Pt hypotensive during tx, Croze Cutter aware. Pt pulled off CVC dressing twice. Dressing changed again 1715 Primary nurse aware. Post-tx vitals: T:97.9 P:81 R:20 BP:99/61 SpO2:100% Report given to:Laz DUGGAN TRICAL FOREMAN * Bonnie Marsh MSW - 09/25/2025 4:05 PM CST Social Work Progress Note Discharge Plan Disposition: SNF Transportation: Transportation at discharge: Ambulance Anticipated Discharge Date: 09/28/2025 Contacts: Extended Emergency Contact Information Primary Emergency Contact: LuisAdry Mobile Relation: Cousin Appliance Counselor needed? No Secondary Emergency Contact: Alberta Pierre Mobile Relation: Sister Appliance Counselor needed? No Comments: Per MDR, pt is appropriate for next level of care. Restraints removed 09/25/2025. Pt has no accepting facilities at this time. SW sent update clinicals to pending referrals. Name/Phone number: MALGORZATA Almanza [phone] TRICAL FOREMAN * Mike Rock MD - 09/25/2025 2:30 [...] XR 24hr (Effexor XR) capsule 150 mg TRICAL FOREMAN * Aditi Chan SLP - 09/25/2025 1:45 PM CST [facility] Department of Physical Medicine & Rehabilitation Progress Note Patient: Gena Pierre Med Record Number: [id number] Date of : 1960 Age: [age] year old 09/25/25 1345 Missed Visit Missed Visit Procedure Off Floor Patient off the floor Dialysis Speech-Language Pathologist TRICAL FOREMAN * Jada Aguila RN - 09/25/2025 1:35 PM CST Problem: Hemodynamic Status/Cardiac Output Goal: Patient has stable vital signs and fluid balance Outcome: Progressing Problem: Fluid and Electrolyte Imbalance Goal: Fluid and electrolyte balance are achieved/maintained Outcome: Progressing Problem: Infection Goal: Signs and symptoms of infections are decreased or avoided Outcome: Progressing TRICAL FOREMAN * Dee Giraldo, PT - 09/25/2025 1:25 PM CST [facility] Department of Physical Medicine & Rehabilitation Progress Note Patient: Gena Pierre Med Record Number: [id number] Date of : 1960 Age: [age] year old 09/25/25 1325 Missed Visit Missed Visit Procedure Off Floor Patient off the floor Dialysis Pt approached for therapy session, however is off the floor at dialysis at this time. Will attempt back for therapy 09/26 as able. TRICAL FOREMAN * Cherelle Islas, - 09/25/2025 1:00 PM CST Images from the original note were not included. [facility] Internal Medicine Progress Note Name: Gena Pierre Room/Bed: [facility] : 1960 65 year old PCP: Monster [...] By: Cherelle Islas DO 09/25/2025 1:01 PM TRICAL FOREMAN * Gilmar Carr RN - 09/24/2025 9:25 [...] injury from restraints Description: INTERVENTIONS: Outcome: Progressing TRICAL FOREMAN * Velma Salcedo MD - 09/24/2025 5:45 PM CST Images from the original note were not included. [facility] Stroke Progress Note Gena Pierre Age: [age] [...] was performed and was concerning for possible AIRCREWMAN vasculitis- versus multifocal atherosclerosis. 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 Patient stable to [...] DATE/TIME OF EXAM: 09/19/2025 11:52 PM, LOCATION [facility] INDICATION: I63.9: Ischemic stroke (HCC) G93.40: Acute [...] is seen. Chronic infarct in the right STAFF EDUCATOR territory. Additional encephalomalacia in the left shin [...] is new new since 04/30/2025. Chronic right STAFF EDUCATOR territory infarct. > Dictated by Alberto David MD, (resident engineer). > Dictated by Alberto David MD 09/19/2025 11:56 PM > Dictated by Piped Buttonhole Machine Operator I, Tra Russell MD have personally reviewed [...] Brain MRI Brain Wo Contrast 09/18/2025 Narrative [facility] [address] [place], [place] [address] Examination: MRI BRAIN WO CON, 09/18/2025 7:41 [...] AM Findings delivered to Dr. Esquivel via [employer] secure messaging at the time of dictation. [...] caliber posterior communicating artery suggestive of a STAFF EDUCATOR variant. The middle cerebral artery has a [...] caliber posterior communicating artery suggestive of a STAFF EDUCATOR variant. The middle cerebral artery has a [...] This could represent severe intracranial atherosclerosis or AIRCREWMAN vasculitis, recommend clinical correlation. Cardiac: TTE/RADHA LVEF [...] 9:20 AM Patient Status: I/P Study Site: [facility] Primary Location: [facility] EStudy Info Technical Quality: Adequate Exam Type: ECHO RADHA COMPLETE Indications R55 - Syncope with abnormal neurologic examination R29.90 - Syncope with abnormal neurologic examination Contrast/Agitated Saline Contrast / Saline: Agitated Saline Amount: 10.00 ml Reaction to Contrast: no * A transesophageal echocardiogram is performed. Staff Referring Physician: Chintan Caro Ordering Provider: Chintan Caro Attending Physician: Chintan Caro Fellow: Mary Graham Search Marketing Specialist: Rachel Jordan Performing Physician: Maryann Roa MD Search Marketing Specialist: Mary Graham Complications * There were no [...] Albumin CSF 8.4 - 34.2 mg/dL 14.2 Rsvth-7-Vcnxdidm CSF 0.0 - 5.4 mg/dL 2.4 Beta-Globulin [...] LP is not needed to rule out AIRCREWMAN vasculitis. Stroke Type: Ischemic Stroke Mechanism: ICAD Plan Plan: Further workup : Stroke workup complete. Needs plan to remove restraints for 24 hours and to protect her HD catheterso that patient does not pull it and SNF transfer. Transfer to [facility] today Secondary stroke prevention: Aspirin 81mg Start Brilinta 90 mg Hyperlipidemia: Atorvastatin 80 mg (increased from home 40 mg) (LDL = 148) SBP goal (short term): < 220 To be achieved with: Labetalol 10 mg IV PRN (HR>70), Hydralazine 10 mg IV PRN (HR<70) SBP goal (long-term): <120 +/- 10 To be achieved with: Home Coreg 25 mg DVT PPX: Heparin Recovery Plan: Swallow Evaluation/Diet: DIET CARDIAC DIETARY NUTRITION SUPPLEMENTS PT/OT evaluation:PT Discharge Recommendations Recommended Transportation Method: Stretcher/Ambulance PT Discharge Recommendations: Patient would benefit from multidisciplinary therapy Placement: Pending discharge to SNF-family declining returning back to previous patient's previous prison facility as a did not think it [...] Columba Blanc MD at 09/25/2025 7:19 PM ELECTRICAL FOREMAN TRICAL FOREMAN TRICAL FOREMAN * Belle White MD - 09/24/2025 4:52 PM CST Patient seen and examined at bedside. Has aphasia present on admission. Tolerating diet,VSS, discussed with nursing, no active issues. Labs changed to PM. TRICAL FOREMAN * Zakia Perez, GERALDO/LD - 09/24/2025 10:38 [...] for reassessment. 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 Not appropriate for in depth interview. PO [...] admit. Med/Surg History and Clinical Diagnoses: Gena iPerre is a 65-year-old female with past medical [...] Skin/Wound: radial puncture site Estimated Needs: KCAL: 2772-4221 (30-35 kcal/kg ABW) Protein (g): 94g (1.2 [...] Cassie Boo MS, RD/RDN, LD Ascom [phone] TRICAL FOREMAN * Kathy Sebastian MD - 09/24/2025 10:17 AM CST [facility] Nephrology Progress Note Brief Hospital Course: Gena [...] along with chronic infarct in the right STAFF EDUCATOR territory and encephalomalacia. INTERVAL HISTORY: - Patient seen in room while on bed without any oxygen and while on restrains. - Got HD session yesterday with UF of 1L without any hypotension. - No acute event over last 24 hours. ASSESSMENT # ESRD on maintenance hemodialysis [facility] -Access: R-IJ Permcath -Last HD on 09/23 -[id number]-lneo-QB8-28 mmol/L -Electrolytes: Na-137 mmol/L, K-4.0 mmol/L -Volume [...] - Next HD on 09/25 according to [facility] schedule. Please refer to the initial nephrology [...] Mike Rock MD at 09/24/2025 7:35 PM ELECTRICAL FOREMAN TRICAL FOREMAN TRICAL FOREMAN Associated attestation - Mike Rock MD - 09/24/2025 7:35 PM ELECTRICAL FOREMAN Nephrology Attending Physician I have seen and [...] + Brillinta - high intensity statin - PT/OT/INSTRUCTOR TRAFFIC SAFETY eval - Dispo pending Problem List History [...] 09/24/258 09/22/25233809/22/25 0437 PLTCOUNT [id number] TRICAL FOREMAN * Velma Salcedo MD - 09/23/2025 5:03 PM CST Images from the original note were not included. [facility] Stroke Progress Note Gena Pierre Age: [age] [...] was performed and was concerning for possible AIRCREWMAN vasculitis- versus multifocal atherosclerosis. 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 Patient stable to [...] DATE/TIME OF EXAM: 09/19/2025 11:52 PM, LOCATION [facility] INDICATION: I63.9: Ischemic stroke (HCC) G93.40: Acute [...] is seen. Chronic infarct in the right STAFF EDUCATOR territory. Additional encephalomalacia in the left shin [...] is new new since 04/30/2025. Chronic right STAFF EDUCATOR territory infarct. > Dictated by Alberto David MD, (resident engineer). > Dictated by Alberto David MD 09/19/2025 11:56 PM > Dictated by Piped Buttonhole Machine Operator I, Tra Russell MD have personally reviewed [...] Brain MRI Brain Wo Contrast 09/18/2025 Narrative [facility] [address] [place], [place] [address] Examination: MRI BRAIN WO CON, 09/18/2025 7:41 [...] AM Findings delivered to Dr. Esquivel via [employer] secure messaging at the time of dictation. [...] caliber posterior communicating artery suggestive of a STAFF EDUCATOR variant. The middle cerebral artery has a [...] caliber posterior communicating artery suggestive of a STAFF EDUCATOR variant. The middle cerebral artery has a [...] This could represent severe intracranial atherosclerosis or AIRCREWMAN vasculitis, recommend clinical correlation. Cardiac: TTE/RADHA LVEF [...] 9:20 AM Patient Status: I/P Study Site: [facility] Primary Location: [facility] EStudy Info Technical Quality: Adequate Exam Type: ECHO RADHA COMPLETE Indications R55 - Syncope with abnormal neurologic examination R29.90 - Syncope with abnormal neurologic examination Contrast/Agitated Saline Contrast / Saline: Agitated Saline Amount: 10.00 ml Reaction to Contrast: no * A transesophageal echocardiogram is performed. Staff Referring Physician: Chintan Caro Ordering Provider: Chintan Caro Attending Physician: Chintan Caro Fellow: Mary Graham Search Marketing Specialist: Rachel Jordan Performing Physician: Maryann Roa MD Search Marketing Specialist: Mary Graham Complications * There were no [...] Albumin CSF 8.4 - 34.2 mg/dL 14.2 Amqcc-0-Eqialdka CSF 0.0 - 5.4 mg/dL 2.4 Beta-Globulin [...] LP is not needed to rule out AIRCREWMAN vasculitis. Stroke Type: Ischemic Stroke Mechanism: ICAD Plan Plan: Further workup : Stroke workup complete. Needs plan to remove restraints for 24 hours and to protect her HD catheterso that patient does not pull it and SNF transfer. Will plan on transferring to [facility] in the meantime Secondary stroke prevention: Aspirin 81mg Start Brilinta 90 mg Hyperlipidemia: Atorvastatin 80 mg (increased from home 40 mg) (LDL = 148) SBP goal (short term): < 220 To be achieved with: Labetalol 10 mg IV PRN (HR>70), Hydralazine 10 mg IV PRN (HR<70) SBP goal (long-term): <120 +/- 10 To be achieved with: Home Coreg 25 mg DVT PPX: Heparin Recovery Plan: Swallow Evaluation/Diet: DIET CARDIAC PT/OT evaluation:PT Discharge Recommendations Recommended Transportation Method: Stretcher/Ambulance PT Discharge Recommendations: Patient would benefit from multidisciplinary therapy Placement: Pending discharge to SNF-family declining returning back to previous patient's previous prison facility as a did not think it [...] Columba Blanc MD at 09/25/2025 7:19 PM ELECTRICAL FOREMAN TRICAL FOREMAN TRICAL FOREMAN TRICAL FOREMAN * Velma Salcedo MD - 09/23/2025 4:49 PM CST [facility] Transfer Checklist: Reasons for Transfer to [facility] Patient was awaiting SNF transfer however [...] etc): None Velma Salcedo MD Neurology Resident TRICAL FOREMAN * Danis Mckeon - 09/23/2025 3:12 PM CST introduced pastoral care to patient. Pt was minimally verbal, but indicated that she was doing okay. Catering Barista offered further pastoral care, pt said, That's all. That's all. Catering Barista assured patient that pastoral care is available 02/05. Danis Mckeon CPE Line Producer Ascom # [phone] On-call Ascom # [phone] TRICAL FOREMAN * Ann Lombardi SLP - 09/23/2025 2:03 PM CST [facility] Department of Physical Medicine & Rehabilitation Progress Note Patient: Gena Pierre Med Record Number: [id number] Date of : 1960 Age: [age] year old 09/23/25 1403 Missed Visit Missed Visit Refused (Pt orally defensive when presented with PO trials.) TRICAL FOREMAN * Radha Hansen RN - 09/23/2025 11:40 [...] infections are decreased or avoided Outcome: Progressing TRICAL FOREMAN * Alicja Diaz - 09/23/2025 10:29 AM CST Updated progress notes sent to patient's Outpatient Hemodialysis Dialysis center. 09/23/2025 2:17 PM Attempted to meet with patient in patient's room. Patient was only able to shake her head when asked if she understood me after introducing my self. Will try back at a later time Alicja Diaz Kidney Navigator/ [facility] Ascom: [phone] Office: [phone] TRICAL FOREMAN TRICAL FOREMAN * Tylor Covarrubias LCSW - 09/23/2025 9:03 AM CST New Facility Placement Referrals initiated: Continued Care and Services - Admitted Since 09/19/2025 Destination Service Provider Request Status Services Address Referrals Phone Referrals Fax Patient Preferred [facility] Longterm Pending - Request Sent Primary: Longterm [address] [address] [phone] -- [facility] Pending - Request Sent Primary: Longterm [address] [facility] [id number] -- [facility] Group Home Pending - Request Sent Primary: Group Home [address] [facility] [phone] -- Current Availability last updated by Dolores Emanuel on 04/18/2025 1151 All 120 beds are dual certified for Medicare and Medicaid. We take both short- term and long-term patients. Dialysis/Infusion Service Provider Request Status Services Address Referrals Phone Referrals Fax Patient Preferred [facility] Hemodialysis Accepted Primary: Hemodialysis [address] [facility] [address] -- SW met with patient at bedside to confirm that patient was previously with [facility] a LTC resident. SW discussed referrals being sent to other facilities pending determination. Planned DC to return to facility at discharge with family to eventually manage transition to a different LTC. PINA LVM with admissions at patients facility requesting a call back to discuss patients return. Social Work Brien Covarrubias, MPH, BACK FILLER OPERATOR P: [phone] TRICAL FOREMAN * Columba Blanc MD - 09/23/2025 7:33 [...] + Brillinta - high intensity statin - PT/OT/INSTRUCTOR TRAFFIC SAFETY eval - Dispo pending Problem List History [...] 09/20/25 0412 PLTCOUNT [id number] TRICAL FOREMAN * Radha Hansen RN - 09/23/2025 6:30 [...] [1] Allergies Allergen Reactions Lactose GI Discomfort TRICAL FOREMAN * Miller Olson RN - 09/23/2025 2:09 [...] ventilation and oxygenation Description: INTERVENTIONS: Outcome: Progressing TRICAL FOREMAN * Lidia Martinez RN - 09/22/2025 5:22 PM CST Care Coordination Progress Note Expected Discharge Date: 09/21/2025 Discharge Plan: LTC. Patient not medically ready for discharge. Pt family request referrals to be send [facility] per URBAN Price. Referral sent. Pt pending safe discharge plan. CM will continue to follow for any discharge needs. Continued Care and Services - Admitted Since 09/19/2025 Destination Service Provider Request Status Services Address Referrals Phone Referrals Fax Patient Preferred [facility] Longterm Pending - Request Sent Primary: Longterm [address] [facility] [address] [phone] -- [facility] Pending - Request Sent Primary: Longterm [address] [facility] [id number] -- Dialysis/Infusion Service Provider Request Status Services Address Referrals Phone Referrals Fax Patient Preferred [facility] Hemodialysis Accepted Primary: Hemodialysis [address] [facility] [phone] -- Family Support (Name and Phone): Extended Emergency Contact Information Primary Emergency Contact: Adry Smith Mobile Relation: Cousin Appliance Counselor needed? No Secondary Emergency Contact: Alberta Pierre Mobile Relation: Sister Appliance Counselor needed? No Transportation at Discharge: : READMISSION RISK SCORE is 17.8 at 5:24 PM 09/22/2025.: Lidia VALENZUELA, RN Weekend Domestic Violence Advocate TRICAL FOREMAN * Dk Bhardwaj MD - 09/22/2025 4:58 PM CST [facility] Rheumatology Consult Follow-up Interval History: Patient evaluated at bedside today with sister present. At the same time neurology was present and case was discussed. Alerted both neurology team as well as family at bedside that concern for primary AIRCREWMAN vasculitis was low. Patient this a.m. was [...] Albumin CSF 8.4 - 34.2 mg/dL 14.2 Fjqlu-3-Wxwuqsad CSF 0.0 - 5.4 mg/dL 2.4 Beta-Globulin [...] This could represent severe intracranial atherosclerosis or AIRCREWMAN vasculitis, recommend clinical correlation. > Dictated by Piped Buttonhole Machine Operator I, MD Nickie have personally reviewed and [...] is new new since 04/30/2025. Chronic right STAFF EDUCATOR territory infarct. > Dictated by Alberto David MD, (resident engineer). > Dictated by Alberto David MD 09/19/2025 11:56 PM > Dictated by Piped Buttonhole Machine Operator I, Tra Russell MD have personally reviewed [...] 9:02 AM Findings delivered toDr. Esquivel via Auto Load Logic secure messaging at the time of dictation. CT Head Wo Contrast Result Date: 09/17/2025 IMPRESSION: 1. No acute intracranial findings. If there is persistent clinical concern for acute ischemia, brain MRI is more sensitive. 2. Chronic microvascular change and multifocal chronic infarct/encephalomalacia as above. Referred By: Interpreted By: Micheal Douglas MD, 09/17/2025 7:39 PM Assessment: #. 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 Because of this longstanding historyof atherosclerosis with prior normal lumbar puncture the pretest probability for primary AIRCREWMAN vasculitis is low. Case discussed today with neurology that patient's presentation can be attributed to severe atherosclerosis and that lumbar puncture would not be needed to rule out primary AIRCREWMAN vasculitis. SUMMARY OF RECOMMENDATIONS - Presentation due to severe atherosclerosis Rheumatology will sign off. Please contact the rheumatology fellow on-call with questions. This patient was seen and staffed with attending Dr. Shea. Dk Garland MD Rheumatology Fellow [facility] [1] Current Facility-Administered Medications [...] Daniel Shea MD at 09/22/2025 9:44 PM ELECTRICAL FOREMAN TRICAL FOREMAN TRICAL FOREMAN Associated attestation - Daniel Shea MD - 09/22/2025 9:44 PM ELECTRICAL FOREMAN Rheumatology Attending Attestation: I have seen and [...] in ruling out primary angiitis of the AIRCREWMAN would require repeat LP with CSF analysis. After discussion with neurology team, given that our pretest probabilities for primary angiitis of the AIRCREWMAN are low, we decided that risk:benefit ratio for lumbar puncture at this time does not support the procedure. If CSF were to be obtained and concerning for AIRCREWMAN in flammation, the subsequent diagnostic study would [...] medically appropriate evaluation, communicating with other health point of care technician, documenting clinical information in the health record, independently interpreting results, counseling regarding the patient's medical problems and management plan, and care coordination. Time for these services on the date of encounter: 50+ minutes. Date of Service: 09/22/25. Daniel Shea MD, FACP, FACR Director, Rheumatology Fellowship Program Department of Internal Medicine [facility] * Milena Terry RN - 09/22/2025 3:52 PM CST CM at bedside for discharge planning. Met with patient and sister, Alberta, who is also her financially POA. Cousin, Adry, is not present but is patient's medical POA. Patient currently lives at [facility] but would like to live in LTC at [facility]. CM let them know we are able to put in referrals for this but when she is medically ready, she would need to go back to [facility] and family will need to follow up on the referral. Patient is not medically appropriate for the next level of care as she is restrained and has a mitten to the right hand. Referral placed to: [facility]. Milena Terry RN Weekend Care Coordination TRICAL FOREMAN * Kimberley Mukherjee MD - 09/22/2025 1:32 PM CST [facility] Transfer Checklist: Reasons for Transfer to [facility]: Pending Placement to Facility. Anticipating D/C [...] DSA was performed and was concerning forpossible AIRCREWMAN vasculitis-versus multifocal atherosclerosis. 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 Patient stable to [...] and/or family notified of potential transfer to [facility] [x] Patient added to [facility] Transfer List [x] Routine labs updated to 2199 [x] Any specialty specific discharge instructions (wound care, weight bearing status, follow up, etc...) have been typed into the After Visit Summary (AVS) Section of the discharge tab TRICAL FOREMAN * Kathy Sebastian MD - 09/22/2025 8:22 AM CST [facility] Progress Note Brief Hospital Course: Gena [...] along with chronic infarct in the right STAFF EDUCATOR territory and encephalomalacia. INTERVAL HISTORY: - Patient seen in room. - Got HD session yesterday with UF of 1L without any hypotension. - No acute event over last 24 hours. ASSESSMENT # ESRD on maintenance hemodialysis [facility] -Access: R-IJ Permcath -Last HD on 09/21 -Qsug-vinu-RB5-28 mmol/L -Electrolytes: Na-136 mmol/L, K-4.4 mmol/L -Volume [...] - Next HD on 09/23 according to [facility] schedule. Please refer to the initial nephrology [...] Sierra Benson MD at 09/22/2025 8:46 PM ELECTRICAL FOREMAN TRICAL FOREMAN TRICAL FOREMAN TRICAL FOREMAN TRICAL FOREMAN Associated attestation - Sierra Benson MD - 09/22/2025 8:46 PM ELECTRICAL FOREMAN The patient was seen and examined with [...] with switch to ASA + Brillinta - PT/OT/INSTRUCTOR TRAFFIC SAFETY eval - Dispo pending Problem List History [...] 09/22/2543609/20/2541105/13/25 0720 PLTCOUNT [id number] TRICAL FOREMAN TRICAL FOREMAN * Kimberley Mukherjee MD - 09/22/2025 7:28 AM CST Images from the original note were not included. [facility] Stroke Progress Note Gena Pierre Age: [age] [...] was performed and was concerning for possible AIRCREWMAN vasculitis- versus multifocal atherosclerosis. 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 Patient stable to [...] DATE/TIME OF EXAM: 09/19/2025 11:52 PM, LOCATION [facility] INDICATION: I63.9: Ischemic stroke (HCC) G93.40: Acute [...] is seen. Chronic infarct in the right STAFF EDUCATOR territory. Additional encephalomalacia in the left shin [...] is new new since 04/30/2025. Chronic right STAFF EDUCATOR territory infarct. > Dictated by Alberto David MD, (resident engineer). > Dictated by Alberto David MD 09/19/2025 11:56 PM > Dictated by Piped Buttonhole Machine Operator I, Tra Russell MD have personally reviewed [...] Brain MRI Brain Wo Contrast 09/18/2025 Narrative [facility] [address] [place], [place] [address] Examination: MRI BRAIN WO CON, 09/18/2025 7:41 [...] AM Findings delivered to Dr. Esquivel via Auto Load Logic secure messaging at the time of dictation. [...] caliber posterior communicating artery suggestive of a STAFF EDUCATOR variant. The middle cerebral artery has a [...] caliber posterior communicating artery suggestive of a STAFF EDUCATOR variant. The middle cerebral artery has a [...] This could represent severe intracranial atherosclerosis or AIRCREWMAN vasculitis, recommend clinical correlation. Cardiac: TTE/RADHA LVEF [...] 9:20 AM Patient Status: I/P Study Site: [facility] Primary Location: [facility] EStudy Info Technical Quality: Adequate Exam Type: ECHO RADHA COMPLETE Indications R55 - Syncope with abnormal neurologic examination R29.90 - Syncope with abnormal neurologic examination Contrast/Agitated Saline Contrast / Saline: Agitated Saline Amount: 10.00 ml Reaction to Contrast: no * A transesophageal echocardiogram is performed. Staff Referring Physician: Chintan Caro Ordering Provider: Chintan Caro Attending Physician: Chintan Caro Fellow: Mary Graham Search Marketing Specialist: Rachel Jordan Performing Physician: Maryann Roa MD Search Marketing Specialist: Mary Graham Complications * There were no [...] Albumin CSF 8.4 - 34.2 mg/dL 14.2 Ryuen-2-Ngioetkf CSF 0.0 - 5.4 mg/dL 2.4 Beta-Globulin [...] LP is not needed to rule out AIRCREWMAN vasculitis. Stroke Type: Ischemic Stroke Mechanism: Large Artery/flow failure vs Vasculitis Plan Plan: Further workup : Workup complete Secondary stroke prevention: Aspirin 81mg Start Brilinta 90 mg Hyperlipidemia: Atorvastatin 80 mg (increased from home 40 mg) (LDL = 148) SBP goal (short term): < 220 To be achieved with: Labetalol 10 mg IV PRN (HR>70), Hydralazine 10 mg IV PRN (HR<70) SBP goal (long-term): <120 +/- 10 To be achieved with: Home Coreg 25 mg DVT PPX: Heparin Recovery Plan: Swallow Evaluation/Diet: DIET CARDIAC PT/OT evaluation:PT Discharge Recommendations Recommended Transportation Method: Stretcher/Ambulance PT Discharge Recommendations: Patient would benefit from multidisciplinary therapy Placement: Pending discharge to SNF-family declining returning back to previous patient's previous prison facility as a did not think it [...] Written in collaboration with Nasreen Avendano, MS3 [facility] This note was dictated using speech recognition software. Minor errors in microelectronics engineer may be present. Please notify if questions arise. Kimberley Mukherjee MD Neurology Resident 09/22/2025 Cosigned by Columba Blanc MD at 09/23/2025 2:38 PM ELECTRICAL FOREMAN TRICAL FOREMAN TRICAL FOREMAN * Brooke Hong RN - 09/21/2025 7:30 [...] given: 1935 Report given to: Miller DUGGAN TRICAL FOREMAN * Sasha Villalba RN - 09/21/2025 4:26 PM CST Patient pulled out IV and tried to pull out dialysis line. New dressing placed and IV site bandaged. Patient placed in Bilateral mitts and wrist. Patient did not arrive to in restraints. URBAN Baez TRICAL FOREMAN * Sasha Villalba RN - 09/21/2025 3:33 [...] [1] Allergies Allergen Reactions Lactose GI Discomfort TRICAL FOREMAN * Sunni Robles RN - 09/21/2025 10:54 AM CST Present in room to find patients NG tube removed and L mitten lying in the bed. Stroke team notified and awaiting orders. TRICAL FOREMAN * Aditi Chan SLP - 09/21/2025 9:22 AM CST [facility] Physical Medicine and Rehabilitation Bedside Swallow Assessment Patient: Gena Pierre Med Record Number: [id number] Date of : 1960 Age: [age] year [...] (vs functional swallow overall) Education/Interventions: While performing INSTRUCTOR TRAFFIC SAFETY, Patient instructed in: results of swallow evaluation, [...] liquid consistencies without clinical signs of aspiration. Shelter Goal (s): Patient to discharge to appropriate [...] (diabetes mellitus), type 2 (HCC) HTN (hypertension) TRICAL FOREMAN * Columba Blanc MD - 09/21/2025 8:49 [...] resume DAPT with switch to Brillinta - PT/OT/INSTRUCTOR TRAFFIC SAFETY eval Problem List History of ischemic right [...] 05/12/25 0623 PLTCOUNT [id number] TRICAL FOREMAN TRICAL FOREMAN * Kimberley Mukherjee MD - 09/21/2025 8:33 AM CST Images from the original note were not included. [facility] Stroke Progress Note Gena Pierre Age: [age] [...] was performed and was concerning for possible AIRCREWMAN vasculitis- pending upcomming LP. Subjective (today) Overnight: [...] DATE/TIME OF EXAM: 09/19/2025 11:52 PM, LOCATION [facility] INDICATION: I63.9: Ischemic stroke (HCC) G93.40: Acute [...] is seen. Chronic infarct in the right STAFF EDUCATOR territory. Additional encephalomalacia in the left shin [...] is new new since 04/30/2025. Chronic right STAFF EDUCATOR territory infarct. > Dictated by Alberto David MD, (resident engineer). > Dictated by Alberto David MD 09/19/2025 11:56 PM > Dictated by Piped Buttonhole Machine Operator I, Tra Russell MD have personally reviewed [...] MRI Brain MRI Brain Wo Contrast 09/18/[address] [address] Examination: MRI BRAIN WO CON, 09/18/2025 7:41 [...] AM Findings delivered to Dr. Esquivel via Auto Load Logic secure messaging at the time of dictation. [...] caliber posterior communicating artery suggestive of a STAFF EDUCATOR variant. The middle cerebral artery has a [...] caliber posterior communicating artery suggestive of a STAFF EDUCATOR variant. The middle cerebral artery has a [...] This could represent severe intracranial atherosclerosis or AIRCREWMAN vasculitis, recommend clinical correlation. Cardiac: TTE/RADHA LVEF [...] 9:20 AM Patient Status: I/P Study Site: [facility] Primary Location: [facility] EStudy Info Technical Quality: Adequate Exam Type: ECHO RADHA COMPLETE Indications R55 - Syncope with abnormal neurologic examination R29.90 - Syncope with abnormal neurologic examination Contrast/Agitated Saline Contrast / Saline: Agitated Saline Amount: 10.00 ml Reaction to Contrast: no * A transesophageal echocardiogram is performed. Staff Referring Physician: Chintan Caro Ordering Provider: Chintan Caro Attending Physician: Chintan Caro Fellow: Mary Graham Search Marketing Specialist: Rachel Jordan Performing Physician: Maryann Roa MD Search Marketing Specialist: Mary Graham Complications * There were no [...] Albumin CSF 8.4 - 34.2 mg/dL 14.2 Wmoek-1-Rbkwcssu CSF 0.0 - 5.4 mg/dL 2.4 Beta-Globulin [...] 10 mg IV PRN (HR<70) SBP goal (ad terminal makeup operator): <120 +/- 10 To be achieved with: [...] Written in collaboration with Nasreen Avendano, MS3 [facility] This note was dictated using speech recognition software. Minor errors in microelectronics engineer may be present. Please notify if questions arise. Kimberley Mukherjee MD Neurology Resident 09/21/2025 Cosigned by Columba Blanc MD at 09/21/2025 1:37 PM ELECTRICAL FOREMAN TRICAL FOREMAN TRICAL FOREMAN TRICAL FOREMAN * Carla Vasquez RN - 09/21/2025 12:01 [...] Awaiting kub per order to check placement. TRICAL FOREMAN * Miller Olson RN - 09/20/2025 8:16 [...] from one surface to another Outcome: Progressing TRICAL FOREMAN * Alicja Diaz - 09/20/2025 3:06 PM CST I am aware of this patient's admission, I will be following this dialysis patient for any needs while an inpatient, and keeping their clinic informed of their progress while admitted. Records were forwarded to the clinic for their review. Spoke with Ravinder at [facility] and she was able to confirm patient's OP HD schedule Outpatient Clinic [facility] Days: MWF Time: 115pm Doctor: Dr Colmenares Alicja Diaz Kidney Navigator/ [facility] Ascom: [phone] Office: [phone] TRICAL FOREMAN * Tylor Covarrubias LCSW - 09/20/2025 1:34 PM CST Care Coordination Initial Assessment Expected Discharge Date: 09/21/2025 Expected Discharge Disposition: SNF vs return to LTC Transportation at Discharge: EMS Prior Level of Care: LTC in [facility] Comments: Lives with: n/a patient is a resident of a LTC facility. Physical Limitations: Patient transitioned from her home address in March following stroke. Home is a 3 story home which patient could no longer navigate following CVA deficits. Requires Assistance With: all ADLS [facility]acy: [facility] [address] [facility] [phone] READMISSION RISK SCORE is 15.5 at 4:01 PM 09/20/2025. Patient was in medical imaging when bedside visit was attempted. Patient sister Krysta was at bedside and SW provided sister with business card. PINA outreached listed contact Adry [phone] who completed assessment with PINA. Family requesting that patient return to facility at discharge unless patient requires an additional level of care prior to returning. Family Support (name and phone): Extended Emergency Contact Information Primary Emergency Contact: Adry Smith Mobile Relation: Cousin Appliance Counselor needed? No Patient or livestock sales representative requests care coordination reach out to family or caregiver listed above regarding discharge planning and at time of discharge? Yes Aluminum Siding Applicator Referral: No Will continue to follow. For any questions or needs please contact: Domestic Violence Advocate/Social Work Name/Phone number: Tylor Covarrubias LCSW TRICAL FOREMAN * Yamel Huddleston SLP - 09/20/2025 1:23 PM CST [facility] Department of Physical Medicine & Rehabilitation Speech Therapy Progress Note Patient: Gena Pierre Med Record Number: [id number] Date of : 1960 Age: [age] year old 09/20/25 1323 Missed Visit Missed Visit Procedure Off Floor (Pt in OR) TRICAL FOREMAN * Oneida Jonas RN - 09/20/2025 11:21 AM CST Interventional Radiology Nursing - End Procedure Note Sedation: Versed: 2 mg, Fentanyl: 100 mcg Sedation start time: 1025 hours Procedure start time: 1027 hours Procedure end time:1120 hours Additional drugs: Radial access cocktail (through intraarterial sheath): 3000 units Heparin, 2.5 mgVerapamil,300 mcg Nitroglycerin Contrast: 130 mL of Isovue-300 Fluoroscopy time: ____ min TRICAL FOREMAN * Yamel Huddleston SLP - 09/20/2025 10:12 AM CST [facility] Department of Physical Medicine & Rehabilitation Speech Therapy Progress Note Patient: Gena Pierre Med Record Number: [id number] Date of : 1960 Age: [age] year old 09/20/25 1012 Missed Visit Patient off the floor Medical Imaging TRICAL FOREMAN * Oneida Jonas RN - 09/20/2025 9:51 AM CST All medications and fluids verified prior to transfer to sterile field. Consent verified with RUPAL Nelson prior to start of procedure. TRICAL FOREMAN TRICAL FOREMAN * Nasreen Avendano - 09/20/2025 8:57 AM CST Images from the original note were not included. [facility] Stroke Progress Note Gena Pierre Age: [age] [...] DATE/TIME OF EXAM: 09/19/2025 11:52 PM, LOCATION [facility] INDICATION: I63.9: Ischemic stroke (HCC) G93.40: Acute [...] is seen. Chronic infarct in the right STAFF EDUCATOR territory. Additional encephalomalacia in the left shin [...] is new new since 04/30/2025. Chronic right STAFF EDUCATOR territory infarct. > Dictated by Alberto David MD, (resident engineer). > Dictated by Alberto David MD 09/19/2025 11:56 PM > Dictated by Piped Buttonhole Machine Operator I, Tra Russell MD have personally reviewed [...] Brain MRI Brain Wo Contrast 09/18/2025 Narrative [facility] [address] [place], [place] [address] Examination: MRI BRAIN WO CON, 09/18/2025 7:41 [...] AM Findings delivered to Dr. Esquivel via Auto Load Logic secure messaging at the time of dictation. [...] 9:20 AM Patient Status: I/P Study Site: [facility] Primary Location: [facility] EStudy Info Technical Quality: Adequate Exam Type: ECHO RADHA COMPLETE Indications R55 - Syncope with abnormal neurologic examination R29.90 - Syncope with abnormal neurologic examination Contrast/Agitated Saline Contrast / Saline: Agitated Saline Amount: 10.00 ml Reaction to Contrast: no * A transesophageal echocardiogram is performed. Staff Referring Physician: Chintan Caro Ordering Provider: Chintan Caro Attending Physician: Chintan Caro Fellow: Mary Graham Search Marketing Specialist: Rachel Jordan Performing Physician: Maryann Roa MD Search Marketing Specialist: Mary Graham Complications * There were no [...] 10 mg IV PRN (HR<70) SBP goal (long-term): <120 +/- 10 To be achieved with: [...] with Attending Physician, Dr. Jayashree Avendano, MS3 [facility] Cosigned by Columba Blanc MD at 09/23/2025 2:37 PM ELECTRICAL FOREMAN TRICAL FOREMAN TRICAL FOREMAN TRICAL FOREMAN TRICAL FOREMAN * Bethany Bundy, PT - 09/20/2025 8:40 AM CST [facility] Physical Medicine and Rehabilitation Physical Therapy Initial Evaluation Note Patient: Gena Pierre Med Record Number: [id number] Date of : 1960 Age: [age] year [...] monitoring of vitals, and cognitive stimulation Modified Lagrange: Current Modified Lagrange Score: 5 AM-PAC 6 Clicks Mobility Raw [...] bed for 10 minutes with standby assist Shelter Goal(s): Patient to discharge to appropriate next [...] (diabetes mellitus), type 2 (HCC) HTN (hypertension) TRICAL FOREMAN * Johnny Oscar - 09/20/2025 8:39 AM CST [facility] Physical Medicine and Rehabilitation Occupational Therapy Initial Evaluation Note Patient: Gena Pierre Med Record Number: [id number] Date of : 1960 Age: [age] year [...] Tolerates sitting less than 5 minutes Modified Lagrange: Current Modified Lagrange Score: 5 AM-PAC 6 Clicks Daily Activity [...] transfer sit to stand with maximal assist Shelter Goal(s): Patient to discharge to appropriate next [...] Sofie Mclean OT at 09/20/2025 3:14 PM ELECTRICAL FOREMAN TRICAL FOREMAN TRICAL FOREMAN * Kimberley Mukherjee MD - 09/20/2025 7:29 AM CST Images from the original note were not included. [facility] Stroke Progress Note Gena Pierre Age: [age] [...] Objective strength: Moves all 4 extremities against gravity-parts analyst strength is weak (but possibly confounded by [...] is seen. Chronic infarct in the right STAFF EDUCATOR territory. Additional encephalomalacia in the left shin [...] is new new since 04/30/2025. Chronic right STAFF EDUCATOR territory infarct. > Dictated by Alberto David MD, (resident engineer). > Interpreting Provider: Tra Russell MD on [...] large neck arteries, these findings may represent AIRCREWMAN vasculitis, vasculopathy or reversible cerebral vasoconstriction syndrome. Please correlate clinically. A conventional DSA catheter angiogram may be considered to further evaluate. MRI Brain MRI Brain Wo Contrast 09/18/2025 Narrative [facility] [address] [place], [place] [address] Examination: MRI BRAIN WO CON, 09/18/2025 7:41 [...] AM Findings delivered to Dr. Esquivel via Auto Load Logic secure messaging at the time of dictation. [...] 10 mg IV PRN (HR<70) SBP goal (long-term): <130/90 To be achieved with: Home Coreg [...] using speech recognition software. Minor errors in microelectronics engineer may be present. Please notify if questions arise. Kimberley Mukherjee MD Neurology Resident 09/20/2025 Cosigned by Tae Fisher MD at 09/25/2025 10:04 AM ELECTRICAL FOREMAN TRICAL FOREMAN TRICAL FOREMAN TRICAL FOREMAN TRICAL FOREMAN * Miller Olson RN - 09/20/2025 4:24 [...] within prescribed range Description: INTERVENTIONS: Outcome: Progressing TRICAL FOREMAN documented in this encounter H&P Notes * [...] Omar Jack MD at 09/20/2025 9:50 AM ELECTRICAL FOREMAN TRICAL FOREMAN TRICAL FOREMAN * Sahara Garcia MD - 09/19/2025 10:19 PM CST Images from the original note were not included. [facility] Stroke History and Physical Gena Pierre Age: [...] Medical history: Anxiety disorder, unspecified Breast cancer ([facility]) Right side mastectomy Chronic kidney disease, unspecified CVA (cerebral vascular accident) ([facility]) 2024 Dependence on renal dialysis Dysphagia Hypercalcemia Hyperparathyroidism, unspecified ([facility]) Type 2 diabetes mellitus without complications ([facility]) Past Surgical history: Past Surgical History[1] Current [...] on Admission: Present on Admission: Ischemic stroke ([facility]) ESRD (end stage renal disease) ([facility]) History of ischemic right MCA stroke Primary hypertension Secondary hyperparathyroidism ([facility]) Type 2 diabetes mellitus with unspecified complications ([facility]) MRI Angio Neck Wo Contrast Result Date: [...] to hospitalist on-call by Dr. Douglas via BuscoTurno at 09/19/2025 6:54 PM (central time). Referred [...] PM (central time). Referred By: Interpreted By: Michela Douglas MD, 09/19/2025 6:42 PM MRI Brain [...] 9:02 AM Findings delivered toDr. Esquivel via [employer] secure messaging at the time of dictation. [...] 10 mg q15m (if HR >60bpm) terminal clerk BP goal: Normotension SBP 120 +/- 10 mmHg ESRD On HD MWF HTN Continue coreg 12.5 BID Core Measures tnk administration: no Anti-thrombotic: asa plavix Statin: y DVT prophylaxis: scd Swallow Evaluation: pending PT/OT Evaluation: pending Smoking cessation; will investment counselor: pending Individual Modifiable Risk Factors Hypertension: yes Hyperlipidemia: yes Diabetes: yes Atrial Fibrillation: no Tobacco: no Sahara Garcia MD Neurology Resident. [facility]. [1] Past Surgical History: Procedure Laterality Date [...] Tae Fisher MD at 09/20/2025 9:26 AM ELECTRICAL FOREMAN TRICAL FOREMAN TRICAL FOREMAN Associated attestation - Tae Fisher MD - 09/20/2025 9:26 AM ELECTRICAL FOREMAN I have seen and examined the patient [...] 09/27/2025 Mike Rock MD Division of Nephrology TRICAL FOREMAN * Mike Rock MD - 09/23/2025 2:55 PM CST Procedure: Hemodialysis Indication: ESRD. This patient was seen and examined by me during dialysis today at 9:35am. BP 102/60, trace edema, no complaints. Tolerated UF 1L/d. Serum Ca improved from 11.7 to 10.1 by Cinacalcet 60mg once. Ok to reduce Cinacalcet to 30mg daily. Date of service: 09/23/2025 Mike Rock MD Division of Nephrology TRICAL FOREMAN * Sierra Benson MD - 09/21/2025 3:17 PM CST Procedure: Hemodialysis Indication: ESRD. This patient was seen and examined by me during dialysis today. 09/21/2025 Rt IJ TDC Alert but no meaningful communication . No UF Restrains 3 k bath , Qb 350 ml/min , Qd 700ml/min TRICAL FOREMAN documented in this encounter Consult Notes * Mary Oleary LCSW - 09/29/2025 2:45 PM CSTAssociated Order(s): IP CONSULT TO CASE MANAGEMENT FOR ABUSE No signs of abuse. Consult addressed by SW on 09-29-25. Mary Oleary LCSW, TIRE DUSTER Care Coordination Aluminum Siding Applicator TRICAL FOREMAN * Mary Oleary LCSW - 09/29/2025 2:37 PM CSTAssociated Order(s): IP CONSULT TO PLATE PREPARER Consult addressed. No abuse noted. Patient is from the [facility] and she is to return on disposition. Patient admitted on 09-19-25 and SW answering EASI consult placed on 09/28 and answered on 09-29. Per medical team which has seen and worked with patients, patient is aphasic.No suspected abuse noted. Mary Oleary LCSW, TIRE DUSTER Care Coordination Aluminum Siding Applicator TRICAL FOREMAN * Dk Bhardwaj MD - 09/20/2025 3:36 PM CSTAssociated Order(s): IP CONSULT TO RHEUMATOLOGY Rheumatology Inpatient Consultation Note Patient: Gena Pierre ( , 1960, 65 year old female) Encounter Date: 09/19/2025 Consult requested by: Dr. Blanc Primary service: Stroke Reason for Admission: AMS Reason for Consultation: AIRCREWMAN vasculitis Subjective History of Present Illness: Ms. Pierre is a 64 year old with past medical history of breast cancer, hypertension, diabetes who we were consulted for evaluation of potential AIRCREWMAN vasculitis. Patient is altered and minimally responsive [...] middle and posterior cerebral arteries concerning for AIRCREWMAN vasculitis or vasculopathy. Rheumatology was consulted at [...] for a uterine mass for which the [employer] team was consulted and attempted bedside endometrial [...] x 0. The patient's sister alerted her prison facility to bring her into the outside hospital and she was then transferred to this facility. According to patient's sister there were no reported systemic symptoms while she was at prison facility including fevers, chills, weight loss, abdominal [...] Immunization History: Immunization History Administered Date(s) Administered COVID PFIZER BIVALENT 12Y+ 30mcg/0.3ML 08/19/2022 Covid Pfizer primary monovalent 12+ yr 0.3mL Purple cap 01/09/2021, 02/06/2021 INFLUENZA VACCINE 2021 INFLUENZA VACCINE, CELL CULTURE, QUADR. (FLUCELVAX QUADRIVALENT; 6MO+) (CCIIV4) 08/19/2022 PNEUMOCOCCAL PCV20 CONJ VAC IM 04/17/2025 TDAP (7yrs+) 04/28/2025 Social History: Social History[5] [...] Albumin CSF 8.4 - 34.2 mg/dL 14.2 Jpoba-2-Ppxvpyat CSF 0.0 - 5.4 mg/dL 2.4 Beta-Globulin [...] This could represent severe intracranial atherosclerosis or AIRCREWMAN vasculitis, recommend clinical correlation. > Dictated by Piped Buttonhole Machine Operator I, MD Nickie have personally reviewed and [...] is new new since 04/30/2025. Chronic right STAFF EDUCATOR territory infarct. > Dictated by Alberto David MD, (resident engineer). > Dictated by Alberto David MD 09/19/2025 11:56 PM > Dictated by Piped Buttonhole Machine Operator I, Tra Russell MD have personally reviewed [...] to hospitalist on-call by Dr. Douglas via BuscoTurno at 09/19/2025 6:54 PM (central time). Referred [...] to hospitalist on-call by Dr. Douglas via Bus[employer] at 09/19/2025 6:54 PM (central time). Referred [...] 9:02 AM Findings delivered toDr. Esquivel via [employer] secure messaging at the time of dictation. [...] PM Assessment & Recommendations #. 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 Because of this longstanding history of atherosclerosis with prior normal lumbar puncture the pretest probability for primary AIRCREWMAN vasculitis is low. She lacks the exam and history that would be concerning for a systemic vasculitis however the signs and symptoms of primary AIRCREWMAN vasculitis are nonspecific. Previously negative LEX, ANCA from 04/2025. A lumbar puncture at this admission would help in the guidance of disease as an elevated nucleated cell count and protein would help point to an inflammatory process but a normal lumbar puncture would also help rule out primary AIRCREWMAN vasculitis. SUMMARY OF RECOMMENDATIONS - Please obtain lumbar puncture when feasible Rheumatology will continue to follow. Please contact the rheumatology fellow on- call with questions. This patient was seen and staffed with attending Dr. Shea. Dk Garland MD Rheumatology Fellow [facility] [1] No current outpatient medications on file. [2] Allergies Allergen Reactions Lactose GI Discomfort [3] Past Medical History: Diagnosis Date Acute renal failure Anemia CKD (chronic kidney disease) DM (diabetes mellitus), type 2 (HCC) HTN (hypertension) [4] Past Surgical History: Procedure Laterality Date ELECTROPHYSIOLOGIC STUDY N/A 05/10/2025 N/A; Loop Recorder Implant ENDOMETRIAL BIOPSY 05/06/2025 [5] Social History Socioeconomic History Marital status: Single Tobacco Use Smoking status: Never Smokeless tobacco: Never Vaping Use Vaping status: Never Used Substance and Sexual Activity Alcohol use: Not Currently Drug use: Never [6] No family history on file. Cosigned by Daniel Shea MD at 09/21/2025 3:32 PM ELECTRICAL FOREMAN TRICAL FOREMAN TRICAL FOREMAN Associated attestation - Daniel Shea MD - 09/21/2025 3:32 PM ELECTRICAL FOREMAN Rheumatology Attending Attestation: I have seen and examined the patient with the fellow and I agree with the findings and plan of careas documented by the fellow. 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 CSF analysis is an appropriatenext diagnostic step. Recommend LP with CSF analysis including opening pressure, protein, glucose, cell count, flow cytometry, cytology. Today???s evaluation to inform management recommendations included review of other providers??? documentation, review of diagnostic studies, reviewing separately obtained history, performing a medically appropriate evaluation, communicating with other health point of care technician, documenting clinical information in the health record, independently interpreting results, counseling regarding the patient's medical problems and management plan, and care coordination. Time for these services on the date of encounter: 80+ minutes. Date of Service: 09/20/25. Daniel Shea MD, FACP, FACR Director, Rheumatology Fellowship Program Department of Internal Medicine [facility] * Arshromanupur Cassie Idris, GERALDO/NIKO - 09/20/2025 12:02 PM CSTAssociated Order(s): [...] + advance diet to as appropriate per INSTRUCTOR TRAFFIC SAFETY recs CLINICAL NUTRITION ASSESSMENT: RD consulted per stroke protocol. Pt with ischemic stroke. A&O x 2. HD catheter in place. Pt previously had consistent carb diet ordered with PO intake at 0% x [address] notes reoccurring hypoglycemic events. Pt to advance diet when able. Pt KUMAR in OR today at time of RD and INSTRUCTOR TRAFFIC SAFETY visit. Unab\le to complete full assessment at this time. RD notes significant wt loss per chart. RD to complete assessment and education at f/u is appropriate. Labs reviewed: poor renal panel, elevated phos (6.6). RD will continue to monitor. Med/Surg History [...] Last Percent Meal Eaten (%): 0 % (09/20/25837) 48 hr PO INTAKE Percent Meal Eaten (%) Av % Min: 0 % Max: 0 % None Pain affecting intake: No Chewing/Swallowing: (NPO) GI Concerns: None Stools: [employer] GROUP LEADER Skin/Wound: radial puncture site Estimated Needs: KCAL: 1646-0369 (25-30 kcal/kg ABW) Protein (g): 78-93 (1.0-1.2 g/kg ABW) Fluid (ml): 1 ml/kcal Needs based on: Kcal/kg- (Comment) (78 kg ABW) Recommended Access Route: PO Labs: Recent Labs Component Name 09/20/2541105/13/2571905/12/25622 NA 140 140 131* 128* POTASSIUM 3.7 [...] 6.6* 3.2 3.3 Recent Labs Component Name 09/20/2541105/13/2571905/12/25622 MAGNESIUM 2.2 1.9 1.8 Recent Labs Component Name 09/20/2541105/13/2571905/12/25622 HGB 11.4* 11.4* 7.3* 7.3* HCT 35.5 35.5 22.6* 22.8* Recent Labs Component Name 09/20/25 0412 04/29/25 0115 HGBA1C 5.0 4.5 No data found. [...] Cassie Boo MS, RD/RDN, LD [employer] 4535 TRICAL FOREMAN * Clara Lorenzo LMSW - 09/20/2025 7:48 AM CSTAssociated Order(s): IP CONSULT TO PHYSICAL MED AND REHAB [facility] Rehab has initiated an evaluation per consult order. Will follow for PT/OT evaluations for possible admission to acute rehab upon discharge. Thank you for the referral! Clara Lorenzo LMSW AR Clinical Liaison [facility] TRICAL FOREMAN * Lalo Goins MD - 09/19/2025 11:07 PM CSTAssociated Order(s): IP CONSULT TO NEPHROLOGY [facility] Nephrology Consult Note Date of Admission: 09/19/2025 [...] along with chronic infarct in the right STAFF EDUCATOR territory and encephalomalacia. Dialysis Center: [facility] Dialysis Days: MWF Date if last dialysis:09/18 Access: R-IJ Permcath Dialysis Duration: 3 Hours 30 Minutes Croze Cutter: Dr Colmenares The patient is consulted for [...] Resource Strain: Low Risk (09/18/2025) Received from [facility] Overall Financial Resource Strain (CARDIA) How hard is it for you to pay for the very basics like food, housing, medical care, and heating?: Not hard at all Food Insecurity: No Food Insecurity (09/18/2025) Received from [facility] Hunger Vital Sign Within the past 12 months, you worried that your food would run out before you got the money to buymore.: Never true Within the past 12 months, the food you bought just didn't last and you didn't have money to get more.: Never true Transportation Needs: Patient Declined (09/18/2025) Received from [facility] PRAPARE - Transportation In the past 12 months, has lack of transportation kept you from medical appointments or from getting medications?: Patient declined In the past 12 months, has lack of transportation kept you from meetings, work, or from getting things needed for daily living?: Patient declined Stress: Patient Declined (09/18/2025) Received from [facility] [place] [place] [employer]ational [employer] - Occupational Stress Questionnaire Do you feel stress - tense, restless, nervous, or anxious, or unable to sleep at night because yourmind is troubled all the time - these days?: Patient declined Intimate Partner Violence: Not At Risk (09/18/2025) Received from [facility] Humiliation, Afraid, Rape, and Kick questionnaire Within [...] Housing Stability: Low Risk (09/18/2025) Received from [facility] Housing Stability Vital Sign In the last 12 months, was there a time when you were not able to pay the mortgage or rent on time?: No In the past 12 months, how many times have you moved where you were living?: 0 At any time in the past 12 months, were you homeless or living in a long term (including now)?: No Allergies: Allergies[4] Home Medications: [...] Permcath LABS: Recent Labs Component Name 09/20/2541105/13/2571905/12/25 06 NA [...] Name 09/20/2541104/29/2511404/29/25 0114 PTHINTACT 1,836.5* - - HPGA70RE - - 17.8* - = values in [...] 9:02 AM Findings delivered toDr. Esquivel via [employer] secure messaging at the time of dictation. [...] -Access: R-IJ Permcath -Last HD on 09/18 -Zmui-lwnz-[id number] mmol/L -Electrolytes: Na-140 mmol/L, K-3.7 mmol/L -Volume [...] Sierra Benson MD at 09/20/2025 12:19 PM ELECTRICAL FOREMAN TRICAL FOREMAN TRICAL FOREMAN Associated attestation - Sierra Benson MD - 09/20/2025 12:19 PM ELECTRICAL FOREMAN The patient was seen and examined with [...] Kimberley Mukherjee MD - 09/20/2025 9:06 AM ELECTRICAL FOREMAN Advance Care Planning Goals of Care A voluntary discussion was had with the power of underwriting consultant for health care regarding goals of care. Current active code status NO CPR(DNR) NO INTUBATION Discussion Discussed code status with patient's cousin Adry Smith who holds power of underwriting consultant-she states that patient has been fluctuating somewhat in her opinion regarding code status but the last time he Adry spoke with her she had stated that she would not want either CPR or intubation. Cosigned by Tae Fisher MD at 09/25/2025 10:04 AM ELECTRICAL FOREMAN TRICAL FOREMAN TRICAL FOREMAN documented in this encounter Plan of Treatment Upcoming Encounters Date Type Department Care Team (Late st Contact Info) Description 10/31/2025 1:00 AM ELECTRICAL FOREMAN Clinical Support [facility] - Cardiology [address] [facility], [facility] [address] [place] [address] 11/21/2025 10:30 AM ELECTRICAL FOREMAN Office Visit [facility] - Neurology [address] [place] [phone] Debi Carmen PA-C [address] [facility] [address] [place] [phone] 12/05/2025 1:00 AM ELECTRICAL FOREMAN Clinical Support [facility] - Cardiology [address] [address] 01/09/2026 1:00 AM CDT Clinical Support [facility] - Cardiology [address] [address] 02/13/2026 1:00 AM CDT Clinical Support [facility] - Cardiology [address] [facility], [address] [address] 03/20/2026 1:00 AM CDT Clinical Support [facility] - Cardiology [address] [facility], [address] [address] Scheduled Orders Name Type Priority Associated Diagnoses Order Schedule ECHO TRANSTHORACIC W BUBBLE STUDY Echocardiography Cupid Routine Ischemic stroke (HCC) Acute encephalopathy ONCE for 1 Occurrences starting 09/19/2025 until 09/19/2025 CYTOLOGY NON-JAVA APPLICATION ENGINEER PANEL (STL) Pathology Cytology STAT Ischemic stroke (HCC) ONCE for 1 Occurrences starting 09/22/2025 until 09/22/2025 FLOW CYTOMETRY BODY FLUID Pathology Cytology Routine Ischemic stroke (HCC) ONCE for 1 Occurrences starting 09/22/2025 until 09/22/2025 Scheduled Referrals Name Type Priority Associated Diagnoses Orde r Schedule Ref to ENT Otolaryngology - [facility] Outpatient Referral Routine Secondary hyperparathyroidism (HCC) 1 Occurrences starting 09/24/2025 until 09/24/2026 Ref to Nephrology - [facility] Outpatient Referral Routine Secondary hyperparathyroidism (HCC) 1 Occurrences starting 09/24/2025 until 09/24/2026 Ref to ENT Otolaryngology - [facility] Outpatient Referral Routine Secondary hyperparathyroidism (HCC) 1 Occurrences starting 09/30/2025 until 09/30/2026 documented as of this encounter Procedures Procedure Name Priority Date/Time Associated Diagnosis Comments GLUCOSE - POINT OF CARE Routine 09/30/2025 9:06 PM ELECTRICAL FOREMAN CBC W/O DIFFERENTIAL Routine 09/30/2025 6:51 PM ELECTRICAL FOREMAN BASIC METABOLIC PANEL (CALCIUM TOTAL) Routine 09/30/2025 6:51 PM ELECTRICAL FOREMAN GLUCOSE - POINT OF CARE Routine 09/30/2025 5:12 PM ELECTRICAL FOREMAN CBC W/O DIFFERENTIAL Routine 09/30/2025 4:10 PM ELECTRICAL FOREMAN BASIC METABOLIC PANEL (CALCIUM TOTAL) Routine 09/30/2025 4:10 PM ELECTRICAL FOREMAN GLUCOSE - POINT OF CARE Routine 09/30/2025 11:50 AM ELECTRICAL FOREMAN GLUCOSE - POINT OF CARE Routine 09/30/2025 8:32 AM ELECTRICAL FOREMAN GLUCOSE - POINT OF CARE Routine 09/29/2025 9:22 PM ELECTRICAL FOREMAN GLUCOSE - POINT OF CARE Routine 09/29/2025 5:33 PM ELECTRICAL FOREMAN GLUCOSE - POINT OF CARE Routine 09/29/2025 1:00 PM ELECTRICAL FOREMAN GLUCOSE - POINT OF CARE Routine 09/28/2025 10:26 PM ELECTRICAL FOREMAN CBC W/O DIFFERENTIAL Routine 09/28/2025 6:47 PM ELECTRICAL FOREMAN BASIC METABOLIC PANEL (CALCIUM TOTAL) Routine 09/28/2025 6:47 PM ELECTRICAL FOREMAN GLUCOSE - POINT OF CARE Routine 09/28/2025 4:47 PM ELECTRICAL FOREMAN HEMODIALYSIS INPATIENT Routine 09/28/2025 12:17 PM ELECTRICAL FOREMAN GLUCOSE - POINT OF CARE Routine 09/28/2025 12:06 PM ELECTRICAL FOREMAN GLUCOSE - POINT OF CARE Routine 09/28/2025 8:07 AM ELECTRICAL FOREMAN GLUCOSE - POINT OF CARE Routine 09/27/2025 9:14 PM ELECTRICAL FOREMAN CBC W/O DIFFERENTIAL Routine 09/27/2025 6:28 PM ELECTRICAL FOREMAN BASIC METABOLIC PANEL (CALCIUM TOTAL) Routine 09/27/2025 6:28 PM ELECTRICAL FOREMAN GLUCOSE - POINT OF CARE Routine 09/27/2025 5:36 PM ELECTRICAL FOREMAN GLUCOSE - POINT OF CARE Routine 09/27/2025 5:05 PM ELECTRICAL FOREMAN GLUCOSE - POINT OF CARE Routine 09/27/2025 12:02 PM ELECTRICAL FOREMAN GLUCOSE - POINT OF CARE Routine 09/26/2025 9:28 PM ELECTRICAL FOREMAN CBC W/O DIFFERENTIAL Routine 09/26/2025 6:23 PM ELECTRICAL FOREMAN BASIC METABOLIC PANEL (CALCIUM TOTAL) Routine 09/26/2025 6:23 PM ELECTRICAL FOREMAN HEMODIALYSIS INPATIENT Routine 09/26/2025 4:23 PM ELECTRICAL FOREMAN GLUCOSE - POINT OF CARE Routine 09/26/2025 4:09 PM ELECTRICAL FOREMAN GLUCOSE - POINT OF CARE Routine 09/26/2025 12:02 PM ELECTRICAL FOREMAN GLUCOSE - POINT OF CARE Routine 09/26/2025 8:11 AM ELECTRICAL FOREMAN GLUCOSE - POINT OF CARE Routine 09/25/2025 9:39 PM ELECTRICAL FOREMAN CBC W/O DIFFERENTIAL Routine 09/25/2025 6:49 PM ELECTRICAL FOREMAN BASIC METABOLIC PANEL (CALCIUM TOTAL) Routine 09/25/2025 6:49 PM ELECTRICAL FOREMAN GLUCOSE - POINT OF CARE Routine 09/25/2025 11:21 AM ELECTRICAL FOREMAN EKG 12-LEAD Routine 09/25/2025 9:34 AM ELECTRICAL FOREMAN Acute encephalopathy GLUCOSE - POINT OF CARE Routine 09/25/2025 7:33 AM ELECTRICAL FOREMAN HEMODIALYSIS INPATIENT Routine 09/25/2025 5:11 AM ELECTRICAL FOREMAN GLUCOSE - POINT OF CARE Routine 09/24/2025 9:06 PM ELECTRICAL FOREMAN CBC W/O DIFFERENTIAL Routine 09/24/2025 6:37 PM ELECTRICAL FOREMAN BASIC METABOLIC PANEL (CALCIUM TOTAL) Routine 09/24/2025 6:37 PM ELECTRICAL FOREMAN GLUCOSE - POINT OF CARE Routine 09/24/2025 4:04 PM ELECTRICAL FOREMAN GLUCOSE - POINT OF CARE Routine 09/24/2025 12:16 PM ELECTRICAL FOREMAN GLUCOSE - POINT OF CARE Routine 09/24/2025 9:28 AM ELECTRICAL FOREMAN CBC W/O DIFFERENTIAL Routine 09/24/2025 3:58 AM ELECTRICAL FOREMAN BASIC METABOLIC PANEL (CALCIUM TOTAL) Routine 09/24/2025 3:58 AM ELECTRICAL FOREMAN GLUCOSE - POINT OF CARE Routine 09/23/2025 8:29 PM ELECTRICAL FOREMAN GLUCOSE - POINT OF CARE Routine 09/23/2025 4:23 PM ELECTRICAL FOREMAN GLUCOSE - POINT OF CARE Routine 09/23/2025 12:31 PM ELECTRICAL FOREMAN ERYTHROCYTE SEDIMENTATION RATE Routine 09/22/2025 11:39 PM ELECTRICAL FOREMAN CBC W/O DIFFERENTIAL Routine 09/22/2025 11:39 PM ELECTRICAL FOREMAN BASIC METABOLIC PANEL (CALCIUM TOTAL) Routine 09/22/2025 11:39 PM ELECTRICAL FOREMAN GLUCOSE - POINT OF CARE Routine 09/22/2025 10:06 PM ELECTRICAL FOREMAN GLUCOSE - POINT OF CARE Routine 09/22/2025 9:09 PM ELECTRICAL FOREMAN HEMODIALYSIS INPATIENT Routine 09/22/2025 5:38 PM ELECTRICAL FOREMAN GLUCOSE - POINT OF CARE Routine 09/22/2025 4:00 PM ELECTRICAL FOREMAN GLUCOSE - POINT OF CARE Routine 09/22/2025 11:54 AM ELECTRICAL FOREMAN GLUCOSE - POINT OF CARE Routine 09/22/2025 8:06 AM ELECTRICAL FOREMAN CBC W/O DIFFERENTIAL Routine 09/22/2025 4:37 AM ELECTRICAL FOREMAN BASIC METABOLIC PANEL (CALCIUM TOTAL) Routine 09/22/2025 4:37 AM ELECTRICAL FOREMAN GLUCOSE - POINT OF CARE Routine 09/21/2025 8:34 PM ELECTRICAL FOREMAN GLUCOSE - POINT OF CARE Routine 09/21/2025 12:23 PM ELECTRICAL FOREMAN GLUCOSE - POINT OF CARE Routine 09/21/2025 7:46 AM ELECTRICAL FOREMAN HEPATITIS B SURFACE ANTIBODY QUANT STAT 09/21/2025 6:27 AM ELECTRICAL FOREMAN HEPATITIS B SURFACE ANTIGEN W RFLX CONFIRMATION STAT 09/21/2025 6:27 AM ELECTRICAL FOREMAN ANCA VASCULITIS PANEL AM Draw 09/21/2025 4:36 AM ELECTRICAL FOREMAN C-REACTIVE PROTEIN AM Draw 09/21/2025 4: 36 AM ELECTRICAL FOREMAN LEX BLOOD SCREEN W/REFLEX TITER AM Draw 09/21/2025 4:36 AM ELECTRICAL FOREMAN SS-A/SS-B (SJOGREN'S) ANTIBODY PANEL AM Draw 09/21/2025 4:36 AM ELECTRICAL FOREMAN PTH RELATED PEPTIDE AM Draw 09/21/2025 4 :36 AM ELECTRICAL FOREMAN VITAMIN D 1,25 DIHYDROXY AM Draw 09/21/2025 4:36 AM ELECTRICAL FOREMAN VITAMIN D 25-HYDROXY AM Draw 09/21/2025 4:36 AM ELECTRICAL FOREMAN BASIC METABOLIC PANEL (CALCIUM TOTAL) Routine 09/21/2025 4:36 AM ELECTRICAL FOREMAN CALCIUM IONIZED WHOLE BLOOD AM Draw 09/21/2025 4:35 AM ELECTRICAL FOREMAN XR ABDOMEN KUB PORTABLE STAT 09/20/2025 11:44 PM ELECTRICAL FOREMAN Ischemic stroke (HCC) GLUCOSE - POINT OF CARE Routine 09/20/2025 11:06 PM ELECTRICAL FOREMAN GLUCOSE - POINT OF CARE Routine 09/20/2025 9:07 PM ELECTRICAL FOREMAN GLUCOSE - POINT OF CARE Routine 09/20/2025 6:24 PM ELECTRICAL FOREMAN HEMODIALYSIS INPATIENT Routine 09/20/2025 4:36 PM ELECTRICAL FOREMAN GLUCOSE - POINT OF CARE Routine 09/20/2025 4:21 PM ELECTRICAL FOREMAN GLUCOSE - POINT OF CARE Routine 09/20/2025 3:51 PM ELECTRICAL FOREMAN HEMODIALYSIS INPATIENT Routine 09/20/2025 2:56 PM ELECTRICAL FOREMAN IR CAROTID CEREBRAL ANGIOGRAM STAT 09/20/2025 11:28 AM ELECTRICAL FOREMAN Ischemic stroke (HCC) XR CHEST 1VW Routine 09/20/2025 9:10 AM ELECTRICAL FOREMAN ESRD (end stage renal disease) (HCC) GLUCOSE - POINT OF CARE Routine 09/20/2025 8:09 AM ELECTRICAL FOREMAN TROPONIN-I HIGH SENSITIVE REFLEX 1HOUR Timed 09/20/2025 5:42 AM ELECTRICAL FOREMAN TROPONIN-I HIGH SENSITIVE BASELINE + 1HR STAT 09/20/2025 4:12 AM ELECTRICAL FOREMAN PTH INTACT W/O CALCIUM STAT 09/20/2025 4:12 AM ELECTRICAL FOREMAN HEMOGLOBIN A1C Routine 09/20/2025 4:12 AM ELECTRICAL FOREMAN CBC W AUTO DIFFERENTIAL STAT 09/20/2025 4:12 AM ELECTRICAL FOREMAN CBC W/O DIFFERENTIAL Routine 09/20/2025 4:12 AM ELECTRICAL FOREMAN BASIC METABOLIC PANEL (CALCIUM TOTAL) Routine 09/20/2025 4:12 AM ELECTRICAL FOREMAN COMPREHENSIVE METABOLIC PANEL STAT 09/20/2025 4:12 AM ELECTRICAL FOREMAN PHOSPHORUS BLOOD STAT 09/20/2025 4:12 AM ELECTRICAL FOREMAN MAGNESIUM BLOOD STAT 09/20/2025 4:12 AM ELECTRICAL FOREMAN LIPID PROFILE Routine 09/20/2025 4:[address] HEAD WO CONTRAST STAT 09/19/2025 1 1:52 PM ELECTRICAL FOREMAN Ischemic stroke (HCC) Acute encephalopathy documented in this encounter Results * (ABNORMAL) GLUCOSE - POINT OF CARE (09/30/2025 9:06 PM ELECTRICAL FOREMAN) Glucose WB/POC 198(H) 70 - 99 mg/dL 09/30/2025 9:08 PM ELECTRICAL FOREMAN [facility] [place] [facility] Specimen Type Arterial/C apillary 09/30/2025 9:08 PM [employer] [facility] Blood BLOOD SPECIMEN / Unknown 09/30/2025 9:06 PM [employer] 09/30/2025 9:08 PM [employer] us Cherelle Billval DO LAB - POINT OF CARE ORDERABL ES Final Result [facility] [address] [place] [address], [facility] [phone] * (ABNORMAL) CBC W/O DIFFERENTIAL (09/30/2025 6:51 PM [employer]) WBC 14.5(H) 4.0 - 10.7 x10E9/L 09/30/2025 8:01 PM [facility] RBC Count 4.77 3.90 - 5.20 x10E12/L 09/30/2025 8:01 PM [facility] Hemoglobin 13.8 11.9 - 15.8 g/dL 09/30/2025 8:01 PM [facility] Hematocrit 42.5 34.8 - 46.1 % 09/30/2025 8:01 PM [facility] MCV 89.1 80.0 - 98.0 fL 09/30/2025 8:01 PM [facility] MCH 28.9 26.7 - 33.6 pg 09/30/2025 8:01 PM [facility] MCHC 32.5 31.7 - 36.3 g/dL 09/30/2025 8:01 PM [facility] RDW-CV 15.1(H) 11.3 - 14.8 % 09/30/2025 8:01 PM [facility] Platelet Count 265 150 - 420 x10E9/L 09/30/2025 8:01 PM [facility] MPV 11.6(H) 7.8 - 11.4 fL 09/30/2025 8:01 PM [facility] Blood BLOOD SPECIMEN / Unknown Lab Venipuncture / Unknown 09/30/2025 6:51 PM [employer] 09/30/2025 7:53 PM [employer] us Columba Blanc MD LAB - HEMATOLOGY ORDERABLES Final Result [facility] [address] [place] [address], [facility] [phone] * (ABNORMAL) BASIC METABOLIC PANEL (CALCIUM TOTAL) (09/30/2025 6:51 PM [employer]) Pathologist [facility] BUN 45(H) 7 - 26 mg/dL 09/30/2025 8:49 PM [facility] Creatinine 8.94(H) 0.56 - 0.96 mg/dL 09/30/2025 8:49 PM [facility] Sodium 136 136 - 145 mmol/L 09/30/2025 8:49 PM [facility] Potassium 4.5 3.5 - 4.5 mmol/L 09/30/2025 8:49 PM [facility] Chloride 97(L) 98 - 107 mmol/L 09/30/2025 8:49 PM [facility] CO2 19(L) 22 - 29 mmol/L 09/30/2025 8:49 PM [facility] Glucose 184(H) 70 - 99 mg/dL 09/30/2025 8:49 PM [facility] Calcium 11.1(H) 8.4 - 10.2 mg/dL 09/30/2025 8:49 PM [facility] Anion Gap 20(H) 6 - 16 09/30/2025 8:49 PM [facility] BUN/Creatinine Ratio 5(L) 7 - 23 09/30/2025 8:49 PM [facility] Osmolality Calculated 298(H) 275 - 295 mOsm/kg 09/30/2025 8:49 PM [facility] eGFR by CKD-EPI 4(L) >=90 mL/min/1.7 3 m2 09/30/2025 8:49 PM [facility] Comment:Estimated Glomerular Filtration Rate (eGFR) calculated using the CKD-EPI Creatinine Equation (2020), per the National Kidney Foundation and [place] [employer] recommendations. Blood BLOOD SPECIMEN / Unknown Lab Venipuncture / Unknown 09/30/2025 6:51 PM [employer] 09/30/2025 7:36 PM [employer] us Columba Blanc MD LAB - CHEMISTRY ORDERABLES F inal Result [facility] [address] [place] [address], [facility] [phone] * (ABNORMAL) GLUCOSE - POINT OF CARE (09/30/2025 5:12 PM [employer]) [facility] Glucose WB/POC 209(H) 70 - 99 mg/dL 09/30/2025 5:17 PM [facility] Specimen Type Arterial/C apillary 09/30/2025 5:17 PM [facility] Blood BLOOD SPECIMEN / Unknown 09/30/2025 5:12 PM [employer] 09/30/2025 5:17 PM [employer] Cherelle Islas DO LAB - POINT OF CARE ORDERABL ES Final Result [facility] [address] [place] [address], [facility] [phone] * (ABNORMAL) CBC W/O DIFFERENTIAL (09/30/2025 4:10 PM [employer]) [facility] WBC 10.2 4.0 - 10.7 x10E9/L 09/30/2025 4:59 PM [facility] RBC Count 4.78 3.90 - 5.20 x10E12/L 09/30/2025 4:59 PM [facility] Hemoglobin 13.9 11.9 - 15.8 g/dL 09/30/2025 4:59 PM [facility] Hematocrit 42.8 34.8 - 46.1 % 09/30/2025 4:59 PM [facility] MCV 89.5 80.0 - 98.0 fL 09/30/2025 4:59 PM [facility] MCH 29.1 26.7 - 33.6 pg 09/30/2025 4:59 PM [facility] MCHC 32.5 31.7 - 36.3 g/dL 09/30/2025 4:59 PM [facility] RDW-CV 15.2(H) 11.3 - 14.8 % 09/30/2025 4:59 PM [facility] Platelet Count 235 150 - 420 x10E9/L 09/30/2025 4:59 PM [facility] MPV 11.6(H) 7.8 - 11.4 fL 09/30/2025 4:59 PM [facility] Blood BLOOD SPECIMEN / Unknown Lab Venipuncture / Unknown 09/30/2025 4:10 PM [employer] 09/30/2025 4:49 PM [employer] Columba Blanc MD LAB - HEMATOLOGY ORDERABLES Final Result [facility] [address] [place] [address], [facility] [phone] * (ABNORMAL) BASIC METABOLIC PANEL (CALCIUM TOTAL) (09/30/2025 4:10 PM [employer]) BUN 40(H) 7 - 26 mg/dL 09/30/2025 5:11 PM [facility] Creatinine 8.70(H) 0.56 - 0.96 mg/dL 09/30/2025 5:11 PM [facility] Sodium 134(L) 136 - 145 mmol/L 09/30/2025 5:11 PM [facility] Potassium 4.7(H) 3.5 - 4.5 mmol/L 09/30/2025 5:11 PM [facility] Chloride 97(L) 98 - 107 mmol/L 09/30/2025 5:11 PM [facility] CO2 20(L) 22 - 29 mmol/L 09/30/2025 5:11 PM [facility] Glucose 215(H) 70 - 99 mg/dL 09/30/2025 5:11 PM [facility] Calcium 11.2(H) 8.4 - 10.2 mg/dL 09/30/2025 5:11 PM [facility] Anion Gap 17(H) 6 - 16 09/30/2025 5:11 PM [facility] BUN/Creatinine Ratio 5(L) 7 - 23 09/30/2025 5:11 PM [facility] Osmolality Calculated 294 275 - 295 mOsm/kg 09/30/2025 5:11 PM [facility] eGFR by CKD-EPI 5(L) >=90 mL/min/1.7 3 m2 09/30/2025 5:11 PM [facility] Comment:Estimated Glomerular Filtration Rate (eGFR) calculated using the CKD-EPI Creatinine Equation (2020), per the National Kidney Foundation and [place] [employer] recommendations. Blood BLOOD SPECIMEN / Unknown Lab Venipuncture / Unknown 09/30/2025 4:10 PM [employer] 09/30/2025 4:58 PM [employer] Columba Blanc MD LAB - CHEMISTRY ORDERABLES F inal Result Performing Organization Address City/[facility]/ZIP Co de Phone Number [address] [address], [place] [phone] * (ABNORMAL) GLUCOSE - POINT OF CARE (09/30/2025 11:50 AM [employer]) Glucose WB/POC 158(H) 70 - 99 mg/dL 09/30/2025 11:55 AM [employer] [facility] Specimen Type Arterial/C apillary 09/30/2025 11:55 AM [employer] [facility] Blood BLOOD SPECIMEN / Unknown 09/30/2025 11:50 AM [employer] 09/30/2025 11:55 AM [employer] [facility] Bill[facility] DO LAB - POINT OF CARE ORDERABL ES Final Result Performing Organization Address [facility]/ZIP Co de Phone Number [address] [address], [place] [phone] * (ABNORMAL) GLUCOSE - POINT OF CARE (09/30/2025 8:32 AM [employer]) Glucose WB/POC 139(H) 70 - 99 mg/dL 09/30/2025 8:33 AM [employer] [facility] Specimen Type Arterial/C apillary 09/30/2025 8:33 AM [employer] [facility] Blood BLOOD SPECIMEN / Unknown 09/30/2025 8:32 AM [employer] 09/30/2025 8:33 AM [employer] Cherelle Billadeau DO LAB - POINT OF CARE ORDERABL ES Final Result Performing Organization Address City/[facility]/ZIP Co de Phone Number [address] [address], [place] [phone] * (ABNORMAL) GLUCOSE - POINT OF CARE (09/29/2025 9:22 PM [employer]) Glucose WB/POC 123(H) 70 - 99 mg/dL 09/29/2025 9:27 PM [employer] [facility] Specimen Type Arterial/C apillary 09/29/2025 9:27 PM [employer] [facility] Blood BLOOD SPECIMEN / Unknown 09/29/2025 9:22 PM [employer] 09/29/2025 9:27 PM [employer] [facility] DO LAB - POINT OF CARE ORDERABL ES Final Result [address] [address], [place] [phone] * (ABNORMAL) GLUCOSE - POINT OF CARE (09/29/2025 5:33 PM [employer]) Glucose WB/POC 115(H) 70 - 99 mg/dL 09/29/2025 5:40 PM [facility] Specimen Type Arterial/C apillary 09/29/2025 5:40 PM [facility] Blood BLOOD SPECIMEN / Unknown 09/29/2025 5:33 PM [employer] 09/29/2025 5:40 PM [employer] Cherelle Billade DO LAB - POINT OF CARE ORDERABL ES Final Result [address] [address], [place] [phone] * (ABNORMAL) GLUCOSE - POINT OF CARE (09/29/2025 1:00 PM [employer]) Glucose WB/POC 149(H) 70 - 99 mg/dL 09/29/2025 1:11 PM [employer] [facility] Specimen Type Arterial/C apillary 09/29/2025 1:11 PM [employer] [facility] Blood BLOOD SPECIMEN / Unknown 09/29/2025 1:00 PM [employer] 09/29/2025 1:11 PM [employer] Cherelle Billadeau DO LAB - POINT OF CARE ORDERABL ES Final Result Performing Organization Address [facility]/ZIP Co de Phone Number [address] [address], [facility] [phone] * (ABNORMAL) GLUCOSE - POINT OF CARE (09/28/2025 10:26 PM [employer]) [facility] Glucose WB/POC 197(H) 70 - 99 mg/dL 09/28/2025 10:31 PM [facility] Specimen Type Arterial/C apillary 09/28/2025 10:31 PM [facility] Blood BLOOD SPECIMEN / Unknown 09/28/2025 10:26 PM [employer] 09/28/2025 10:31 PM [employer] Cherelle Billadeau DO LAB - POINT OF CARE ORDERABL ES Final Result Performing Organization Address [facility] Co de Phone Number [address] [address], [facility] [phone] * (ABNORMAL) CBC W/O DIFFERENTIAL (09/28/2025 6:47 PM [employer]) [facility] WBC 10.6 4.0 - 10.7 x10E9/L 09/28/2025 10:35 PM [facility] RBC Count 4.56 3.90 - 5.20 x10E12/L 09/28/2025 10:35 PM [facility] Hemoglobin 13.6 11.9 - 15.8 g/dL 09/28/2025 10:35 PM [facility] Hematocrit 42.1 34.8 - 46.1 % 09/28/2025 10:35 PM [facility] MCV 92.3 80.0 - 98.0 fL 09/28/2025 10:35 PM [facility] MCH 29.8 26.7 - 33.6 pg 09/28/2025 10:35 PM [facility] MCHC 32.3 31.7 - 36.3 g/dL 09/28/2025 10:35 PM [facility] RDW-CV 15.4(H) 11.3 - 14.8 % 09/28/2025 10:35 PM [facility] Platelet Count 220 150 - 420 x10E9/L 09/28/2025 10:35 PM [facility] MPV 11.4 7.8 - 11.4 fL 09/28/2025 10:35 PM [facility] Blood BLOOD SPECIMEN / Unknown Lab Venipuncture / Unknown 09/28/2025 6:47 PM [employer] 09/28/2025 10:14 PM [employer] us Columba Blanc MD LAB - HEMATOLOGY ORDERABLES Final Result [facility] [address] [place] [address], [facility] [phone] * (ABNORMAL) BASIC METABOLIC PANEL (CALCIUM TOTAL) (09/28/2025 6:47 PM [employer]) BUN 35(H) 7 - 26 mg/dL 09/28/2025 11:22 PM [facility] Creatinine 8.15(H) 0.56 - 0.96 mg/dL 09/28/2025 11:22 PM [facility] Comment:QNS for repeat testi ng Sodium 132(L) 136 - 145 mmol/L 09/28/2025 11:22 PM [facility] Potassium 5.1(H) 3.5 - 4.5 mmol/L 09/28/2025 11:22 PM [facility] Chloride 98 98 - 107 mmol/L 09/28/2025 11:22 PM [facility] CO2 13(L) 22 - 29 mmol/L 09/28/2025 11:22 PM [facility] Glucose 118(H) 70 - 99 mg/dL 09/28/2025 11:22 PM [facility] Calcium 10.1 8.4 - 10.2 mg/dL 09/28/2025 11:22 PM [facility] Anion Gap 21(H) 6 - 16 09/28/2025 11:22 PM [facility] BUN/Creatinine Ratio 4(L) 7 - 23 09/28/2025 11:22 PM [facility] Osmolality Calculated 283 275 - 295 mOsm/kg 09/28/2025 11:22 PM [facility] eGFR by CKD-EPI 5(L) >=90 mL/min/1.7 3 m2 09/28/2025 11:22 PM [facility] Comment:Estimated Glomerular Filtration Rate (eGFR) calculated using the CKD-EPI Creatinine Equation (2020), per the National Kidney Foundation and [place] [employer] recommendations. Blood BLOOD SPECIMEN / Unknown Lab Venipuncture / Unknown 09/28/2025 6:47 PM [employer] 09/28/2025 10:06 PM [employer] Columba Blanc MD LAB - CHEMISTRY ORDERABLES F inal Result Performing Organization Address City/[facility]/ZIP Co de Phone Number [address] [address], [place] [phone] * (ABNORMAL) GLUCOSE - POINT OF CARE (09/28/2025 4:47 PM [employer]) Glucose WB/POC 148(H) 70 - 99 mg/dL 09/28/2025 4:51 PM [facility] Specimen Type Arterial/C apillary 09/28/2025 4:51 PM [facility] Blood BLOOD SPECIMEN / Unknown 09/28/2025 4:47 PM [employer] 09/28/2025 4:51 PM [employer] Cherelle Islas DO LAB - POINT OF CARE ORDERABL ES Final Result [address] [address], [place] [phone] * (ABNORMAL) GLUCOSE - POINT OF CARE (09/28/2025 12:06 PM [employer]) Glucose WB/POC 149(H) 70 - 99 mg/dL 09/28/2025 12:10 PM [employer] [facility] Specimen Type Arterial/C apillary 09/28/2025 12:10 PM [employer] [facility] Blood BLOOD SPECIMEN / Unknown 09/28/2025 12:06 PM [employer] 09/28/2025 12:10 PM [employer] Cherelle Billadeau DO LAB - POINT OF CARE ORDERABL ES Final Result Performing Organization Address City/[facility]/ZIP Co de Phone Number [address] [address], [place] [phone] * (ABNORMAL) GLUCOSE - POINT OF CARE (09/28/2025 8:07 AM [employer]) Glucose WB/POC 115(H) 70 - 99 mg/dL 09/28/2025 8:13 AM [facility] Specimen Type Arterial/C apillary 09/28/2025 8:13 AM [facility] Blood BLOOD SPECIMEN / Unknown 09/28/2025 8:07 AM [employer] 09/28/2025 8:13 AM [employer] [facility] - POINT OF CARE ORDERABL ES Final Result Performing Organization Address [facility]/ZIP Co de Phone Number [address] [address], [place] [phone] * (ABNORMAL) GLUCOSE - POINT OF CARE (09/27/2025 9:14 PM [employer]) Glucose WB/POC 125(H) 70 - 99 mg/dL 09/27/2025 9:24 PM [facility] Specimen Type Arterial/C apillary 09/27/2025 9:24 PM [employer] [facility] Blood BLOOD SPECIMEN / Unknown 09/27/2025 9:14 PM [employer] 09/27/2025 9:24 PM [employer] Cherelle Billade DO LAB - POINT OF CARE ORDERABL ES Final Result Performing Organization Address City/[facility]/ZIP Co de Phone Number [address] [address], [place] [phone] * (ABNORMAL) CBC W/O DIFFERENTIAL (09/27/2025 6:28 PM [employer]) WBC 8.0 4.0 - 10.7 x10E9/L 09/27/2025 7:46 PM [facility] RBC Count 4.46 3.90 - 5.20 x10E12/L 09/27/2025 7:46 PM [facility] Hemoglobin 13.0 11.9 - 15.8 g/dL 09/27/2025 7:46 PM [facility] Hematocrit 40.6 34.8 - 46.1 % 09/27/2025 7:46 PM [facility] MCV 91.0 80.0 - 98.0 fL 09/27/2025 7:46 PM [facility] MCH 29.1 26.7 - 33.6 pg 09/27/2025 7:46 PM [facility] MCHC 32.0 31.7 - 36.3 g/dL 09/27/2025 7:46 PM [facility] RDW-CV 15.6(H) 11.3 - 14.8 % 09/27/2025 7:46 PM [facility] Platelet Count 217 150 - 420 x10E9/L 09/27/2025 7:46 PM [facility] MPV 10.8 7.8 - 11.4 fL 09/27/2025 7:46 PM [facility] Blood BLOOD SPECIMEN / Unknown Lab Venipuncture / Unknown 09/27/2025 6:28 PM [employer] 09/27/2025 7:21 PM [facility] us Columba Blanc MD LAB - HEMATOLOGY ORDERABLES Final Result [facility] [address] [place] [address], [facility] [phone] * (ABNORMAL) BASIC METABOLIC PANEL (CALCIUM TOTAL) (09/27/2025 6:28 PM [employer]) Pathologist [facility] BUN 15 7 - 26 mg/dL 09/27/2025 7:59 PM [facility] Creatinine 5.55(H) 0.56 - 0.96 mg/dL 09/27/2025 7:59 PM [facility] Sodium 134(L) 136 - 145 mmol/L 09/27/2025 7:59 PM [facility] Potassium 4.3 3.5 - 4.5 mmol/L 09/27/2025 7:59 PM [facility] Chloride 97(L) 98 - 107 mmol/L 09/27/2025 7:59 PM [facility] CO2 21(L) 22 - 29 mmol/L 09/27/2025 7:59 PM [facility] Glucose 134(H) 70 - 99 mg/dL 09/27/2025 7:59 PM [facility] Calcium 9.9 8.4 - 10.2 mg/dL 09/27/2025 7:59 PM [facility] Anion Gap 16 6 - 16 09/27/2025 7:59 PM [facility] BUN/Creatinine Ratio 3(L) 7 - 23 09/27/2025 7:59 PM [facility] Osmolality Calculated 281 275 - 295 mOsm/kg 09/27/2025 7:59 PM [facility] eGFR by CKD-EPI 8(L) >=90 mL/min/1.7 3 m2 09/27/2025 7:59 PM [facility] Comment:Estimated Glomerular Filtration Rate (eGFR) calculated using the CKD-EPI Creatinine Equation (2020), per the National Kid[employer] Foundation and [place] [employer] recommendations. Blood BLOOD SPECIMEN / Unknown Lab Venipuncture / Unknown 09/27/2025 6:28 PM [employer] 09/27/2025 7:21 PM [employer] us Columba Blanc MD LAB - CHEMISTRY ORDERABLES F inal Result [facility] [address] [place] [address], [facility] [phone] * GLUCOSE - POINT OF CARE (09/27/2025 5:36 PM [employer]) Glucose WB/POC 99 70 - 99 mg/dL 09/27/2025 5:40 PM [facility] Specimen Type Arterial/C apillary 09/27/2025 5:40 PM [employer] [facility] Blood BLOOD SPECIMEN / Unknown 09/27/2025 5:36 PM [employer] 09/27/2025 5:40 PM [employer] Cherelle Billadeau DO LAB - POINT OF CARE ORDERABL ES Final Result [address] [address], [place] [phone] * GLUCOSE - POINT OF CARE (09/27/2025 5:05 PM [employer]) Glucose WB/POC 91 70 - 99 mg/dL 09/27/2025 5:06 PM [employer] [facility] Specimen Type Arterial/C apillary 09/27/2025 5:06 PM [employer] [facility] Blood BLOOD SPECIMEN / Unknown 09/27/2025 5:05 PM [employer] 09/27/2025 5:06 PM [employer] Welocalizeadeau DO LAB - POINT OF CARE ORDERABL ES Final Result Performing Organization Address City/[facility]/ZIP Co de Phone Number [address] [address], [place] [phone] * (ABNORMAL) GLUCOSE - POINT OF CARE (09/27/2025 12:02 PM [employer]) Glucose WB/POC 117(H) 70 - 99 mg/dL 09/27/2025 4:50 PM [employer] [facility] Specimen Type Arterial/C apillary 09/27/2025 4:50 PM [employer] [facility] Blood BLOOD SPECIMEN / Unknown 09/27/2025 12:02 PM [employer] 09/27/2025 4:50 PM [employer] Cherelle Billadeau DO LAB - POINT OF CARE ORDERABL ES Final Result [address] [address], [place] [phone] * (ABNORMAL) GLUCOSE - POINT OF CARE (09/26/2025 9:28 PM [employer]) Pathologist [facility] Glucose WB/POC 119(H) 70 - 99 mg/dL 09/26/2025 9:32 PM [facility] Specimen Type Arterial/C apillary 09/26/2025 9:32 PM [facility] Blood BLOOD SPECIMEN / Unknown 09/26/2025 9:28 PM [employer] 09/26/2025 9:32 PM [employer] us Cherelle Islas DO LAB - POINT OF CARE ORDERABL ES Final Result [facility] [address] [place] [id number], [facility] [phone] * (ABNORMAL) CBC W/O DIFFERENTIAL (09/26/2025 6:23 PM [employer]) [facility] WBC 8.2 4.0 - 10.7 x10E9/L 09/26/2025 8:24 PM [facility] RBC Count 4.14 3.90 - 5.20 x10E12/L 09/26/2025 8:24 PM [facility] Hemoglobin 12.0 11.9 - 15.8 g/dL 09/26/2025 8:24 PM [facility] Hematocrit 37.2 34.8 - 46.1 % 09/26/2025 8:24 PM [facility] MCV 89.9 80.0 - 98.0 fL 09/26/2025 8:24 PM [facility] MCH 29.0 26.7 - 33.6 pg 09/26/2025 8:24 PM [facility] MCHC 32.3 31.7 - 36.3 g/dL 09/26/2025 8:24 PM [facility] RDW-CV 15.7(H) 11.3 - 14.8 % 09/26/2025 8:24 PM [facility] Platelet Count 250 150 - 420 x10E9/L 09/26/2025 8:24 PM [facility] MPV 10.7 7.8 - 11.4 fL 09/26/2025 8:24 PM [facility] Blood BLOOD SPECIMEN / Unknown Lab Venipuncture / Unknown 09/26/2025 6:23 PM [employer] 09/26/2025 7:27 PM [employer] us Columba Blanc MD LAB - HEMATOLOGY ORDERABLES Final Result [facility] [address] [place] [address], [facility] [phone] * (ABNORMAL) BASIC METABOLIC PANEL (CALCIUM TOTAL) (09/26/2025 6:23 PM [employer]) BUN 32(H) 7 - 26 mg/dL 09/26/2025 8:07 PM [facility] Creatinine 8.82(H) 0.56 - 0.96 mg/dL 09/26/2025 8:07 PM [facility] Sodium 138 136 - 145 mmol/L 09/26/2025 8:07 PM [facility] Potassium 4.2 3.5 - 4.5 mmol/L 09/26/2025 8:07 PM [facility] Chloride 99 98 - 107 mmol/L 09/26/2025 8:07 PM [facility] CO2 23 22 - 29 mmol/L 09/26/2025 8:07 PM [facility] Glucose 154(H) 70 - 99 mg/dL 09/26/2025 8:07 PM [facility] Calcium 9.9 8.4 - 10.2 mg/dL 09/26/2025 8:07 PM [facility] Anion Gap 16 6 - 16 09/26/2025 8:07 PM [facility] BUN/Creatinine Ratio 4(L) 7 - 23 09/26/2025 8:07 PM [facility] Osmolality Calculated 296(H) 275 - 295 mOsm/kg 09/26/2025 8:07 PM [facility] eGFR by CKD-EPI 5(L) >=90 mL/min/1.7 3 m2 09/26/2025 8:07 PM [facility] Comment:Estimated Glomerular Filtration Rate (eGFR) calculated using the CKD-EPI Creatinine Equation (2020), per the [employer] and [place] [employer] recommendations. Blood BLOOD SPECIMEN / Unknown Lab Venipuncture / Unknown 09/26/2025 6:23 PM [employer] 09/26/2025 7:27 PM [employer] Columba Blanc MD LAB - CHEMISTRY ORDERABLES F inal Result [address] [address], [facility] [phone] * (ABNORMAL) GLUCOSE - POINT OF CARE (09/26/2025 4:09 PM [employer]) Glucose WB/POC 146(H) 70 - 99 mg/dL 09/26/2025 4:14 PM [employer] [facility] Specimen Type Arterial/C apillary 09/26/2025 4:14 PM [employer] [facility] Blood BLOOD SPECIMEN / Unknown 09/26/2025 4:09 PM [employer] 09/26/2025 4:14 PM [employer] Cherelle Billmirandaau DO LAB - POINT OF CARE ORDERABL ES Final Result Performing Organization Address [facility]/ZIP Co de Phone Number [address] [address], [facility] [phone] * (ABNORMAL) GLUCOSE - POINT OF CARE (09/26/2025 12:02 PM [employer]) Glucose WB/POC 165(H) 70 - 99 mg/dL 09/26/2025 12:03 PM [employer] [facility] Specimen Type Arterial/C apillary 09/26/2025 12:03 PM [employer] [facility] Blood BLOOD SPECIMEN / Unknown 09/26/2025 12:02 PM [employer] 09/26/2025 12:03 PM [employer] Cherelle Billadeau DO LAB - POINT OF CARE ORDERABL ES Final Result Performing Organization Address City/[facility]/ZIP Co de Phone Number [address] [address], [facility] [phone] * (ABNORMAL) GLUCOSE - POINT OF CARE (09/26/2025 8:11 AM [employer]) Pathologist [facility] Glucose WB/POC 105(H) 70 - 99 mg/dL 09/26/2025 8:13 AM [facility] Specimen Type Arterial/C apillary 09/26/2025 8:13 AM [employer] [facility] Blood BLOOD SPECIMEN / Unknown 09/26/2025 8:11 AM [employer] 09/26/2025 8:13 AM [employer] Cherelle Billade DO LAB - POINT OF CARE ORDERABL ES Final Result [address] [address], [facility] [phone] * (ABNORMAL) GLUCOSE - POINT OF CARE (09/25/2025 9:39 PM [employer]) [facility] Glucose WB/POC 132(H) 70 - 99 mg/dL 09/25/2025 9:40 PM [facility] Specimen Type Arterial/C apillary 09/25/2025 9:40 PM [facility] Blood BLOOD SPECIMEN / Unknown 09/25/2025 9:39 PM [employer] 09/25/2025 9:39 PM [employer] Cherelle Billadeau DO LAB - POINT OF CARE ORDERABL ES Final Result [address] [address], [facility] [phone] * (ABNORMAL) CBC W/O DIFFERENTIAL (09/25/2025 6:49 PM [employer]) [facility] WBC 11.4(H) 4.0 - 10.7 x10E9/L 09/25/2025 9:48 PM [facility] RBC Count 4.15 3.90 - 5.20 x10E12/L 09/25/2025 9:48 PM [facility] Hemoglobin 12.1 11.9 - 15.8 g/dL 09/25/2025 9:48 PM [facility] Hematocrit 37.8 34.8 - 46.1 % 09/25/2025 9:48 PM [facility] MCV 91.1 80.0 - 98.0 fL 09/25/2025 9:48 PM [facility] MCH 29.2 26.7 - 33.6 pg 09/25/2025 9:48 PM [facility] MCHC 32.0 31.7 - 36.3 g/dL 09/25/2025 9:48 PM [facility] RDW-CV 15.7(H) 11.3 - 14.8 % 09/25/2025 9:48 PM [facility] Platelet Count 252 150 - 420 x10E9/L 09/25/2025 9:48 PM [facility] MPV 10.5 7.8 - 11.4 fL 09/25/2025 9:48 PM [facility] Blood BLOOD SPECIMEN / Unknown Lab Venipuncture / Unknown 09/25/2025 6:49 PM [employer] 09/25/2025 9:02 PM [facility] Columba Blanc MD LAB - HEMATOLOGY ORDERABLES Final Result [facility] [address] [place] [address], [facility] [phone] * (ABNORMAL) BASIC METABOLIC PANEL (CALCIUM TOTAL) (09/25/2025 6:49 PM [employer]) BUN 16 7 - 26 mg/dL 09/25/2025 9:49 PM [facility] Creatinine 5.50(H) 0.56 - 0.96 mg/dL 09/25/2025 9:49 PM [facility] Sodium 139 136 - 145 mmol/L 09/25/2025 9:49 PM [facility] Potassium 3.8 3.5 - 4.5 mmol/L 09/25/2025 9:49 PM [facility] Chloride 99 98 - 107 mmol/L 09/25/2025 9:49 PM [facility] CO2 25 22 - 29 mmol/L 09/25/2025 9:49 PM [facility] Glucose 101(H) 70 - 99 mg/dL 09/25/2025 9:49 PM [facility] Calcium 10.0 8.4 - 10.2 mg/dL 09/25/2025 9:49 PM [facility] Anion Gap 15 6 - 16 09/25/2025 9:49 PM [facility] BUN/Creatinine Ratio 3(L) 7 - 23 09/25/2025 9:49 PM [facility] Osmolality Calculated 289 275 - 295 mOsm/kg 09/25/2025 9:49 PM [facility] eGFR by CKD-EPI 8(L) >=90 mL/min/1.7 3 m2 09/25/2025 9:49 PM [facility] Comment:Estimated Glomerular Filtration Rate (eGFR) calculated using the CKD-EPI Creatinine Equation (2020), per the National Kidney Foundation and [place] [employer] recommendations. Blood BLOOD SPECIMEN / Unknown Lab Venipuncture / Unknown 09/25/2025 6:49 PM [employer] 09/25/2025 9:01 PM [employer] Columba Blanc MD LAB - CHEMISTRY ORDERABLES F inal Result [facility] [address] [place] [address], [facility] [phone] * (ABNORMAL) GLUCOSE - POINT OF CARE (09/25/2025 11:21 AM [employer]) Glucose WB/POC 160(H) 70 - 99 mg/dL 09/25/2025 11:26 AM [facility] Specimen Type Arterial/C apillary 09/25/2025 11:26 AM [facility] Blood BLOOD SPECIMEN / Unknown 09/25/2025 11:21 AM [employer] 09/25/2025 11:25 AM [employer] us Cherelle Islas DO LAB - POINT OF CARE ORDERABL ES Final Result [facility] [address] [place] [address], [place] [phone] * EKG 12-Lead (09/25/2025 9:34 AM [employer]) [facility] Ventricular Rate 93 BPM [facility] MUSE Atrial Rate 93 BPM [facility] P-R Interval 198 ms [facility] QRS Duration ms 78 ms [facility] Q-T Interval ms 350 ms [facility] QTC Calculation (Bezet) 435 ms [facility] Calculated P [place] 64 degrees [facility] Calculated R [place] 24 degrees [facility] Calculated T [place] 48 degrees [facility] Interpretation EKG NORMAL SINUS RHYTHM LOW VOLTAGE QRS CANNOT RULE OUT INFERIOR INFARCT , AGE UNDETERMINED ABNORMAL ECG NO PREVIOUS ECGS AVAILABLE Confirmed by THERESA SANTA MD ([id number]) on 09/29/2025 8:58:47 PM [facility] 09/25/2025 9:34 AM [employer] 09/29/2025 8:58 PM [employer] Cherelle Islas DO ECG ORDERABLES Edited Resul t - Final Performing Organization Address City/[facility] Co de Phone Number [facility] * (ABNORMAL) GLUCOSE - POINT OF CARE (09/25/2025 7:33 AM [employer]) [facility] Glucose WB/POC 111(H) 70 - 99 mg/dL 09/25/2025 7:35 AM [employer] [facility] Specimen Type Arterial/C apillary 09/25/2025 7:35 AM [employer] [facility] Blood BLOOD SPECIMEN / Unknown 09/25/2025 7:33 AM [employer] 09/25/2025 7:35 AM [employer] Columba Blanc MD LAB - POINT OF CARE ORDERABL ES Final Result [facility] [address] [place] [address], [place] [phone] * (ABNORMAL) GLUCOSE - POINT OF CARE (09/24/2025 9:06 PM [employer]) [facility] Glucose WB/POC 147(H) 70 - 99 mg/dL 09/24/2025 9:11 PM [facility] Specimen Type Arterial/C apillary 09/24/2025 9:11 PM [facility] Blood BLOOD SPECIMEN / Unknown 09/24/2025 9:06 PM [employer] 09/24/2025 9:10 PM [employer] Columba Blanc MD LAB - POINT OF CARE ORDERABL ES Final Result [facility] [address] [place] [address], [facility] [phone] * (ABNORMAL) CBC W/O DIFFERENTIAL (09/24/2025 6:37 PM [employer]) [facility] WBC 9.3 4.0 - 10.7 x10E9/L 09/24/2025 7:35 PM [facility] RBC Count 4.20 3.90 - 5.20 x10E12/L 09/24/2025 7:35 PM [facility] Hemoglobin 12.2 11.9 - 15.8 g/dL 09/24/2025 7:35 PM [facility] Hematocrit 37.9 34.8 - 46.1 % 09/24/2025 7:35 PM [facility] MCV 90.2 80.0 - 98.0 fL 09/24/2025 7:35 PM [facility] MCH 29.0 26.7 - 33.6 pg 09/24/2025 7:35 PM [facility] MCHC 32.2 31.7 - 36.3 g/dL 09/24/2025 7:35 PM [facility] RDW-CV 15.9(H) 11.3 - 14.8 % 09/24/2025 7:35 PM [facility] Platelet Count 349 150 - 420 x10E9/L 09/24/2025 7:35 PM [facility] MPV 10.4 7.8 - 11.4 fL 09/24/2025 7:35 PM [facility] Blood BLOOD SPECIMEN / Unknown Lab Venipuncture / Unknown 09/24/2025 6:37 PM [employer] 09/24/2025 7:21 PM [employer] Columba Blanc MD LAB - HEMATOLOGY ORDERABLES Final Result [facility] [address] [place] [address], [facility] [phone] * (ABNORMAL) BASIC METABOLIC PANEL (CALCIUM TOTAL) (09/24/2025 6:37 PM [employer]) BUN 29(H) 7 - 26 mg/dL 09/24/2025 7:55 PM [facility] Creatinine 8.57(H) 0.56 - 0.96 mg/dL 09/24/2025 7:55 PM [facility] Sodium 139 136 - 145 mmol/L 09/24/2025 7:55 PM [facility] Potassium 4.1 3.5 - 4.5 mmol/L 09/24/2025 7:55 PM [facility] Chloride 98 98 - 107 mmol/L 09/24/2025 7:55 PM [facility] CO2 26 22 - 29 mmol/L 09/24/2025 7:55 PM [facility] Glucose 131(H) 70 - 99 mg/dL 09/24/2025 7:55 PM [facility] Calcium 10.4(H) 8.4 - 10.2 mg/dL 09/24/2025 7:55 PM [facility] Anion Gap 15 6 - 16 09/24/2025 7:55 PM [facility] BUN/Creatinine Ratio 3(L) 7 - 23 09/24/2025 7:55 PM [facility] Osmolality Calculated 296(H) 275 - 295 mOsm/kg 09/24/2025 7:55 PM [facility] eGFR by CKD-EPI 5(L) >=90 mL/min/1.7 3 m2 09/24/2025 7:55 PM [facility] Comment:Estimated Glomerular Filtration Rate (eGFR) calculated using the CKD-EPI Creatinine Equation (2020), per the National Kidney Foundation and [place] [employer] recommendations. Blood BLOOD SPECIMEN / Unknown Lab Venipuncture / Unknown 09/24/2025 6:37 PM [employer] 09/24/2025 7:24 PM [employer] Columba Blanc MD LAB - CHEMISTRY ORDERABLES F inal Result [address] [address], [place] [phone] * (ABNORMAL) GLUCOSE - POINT OF CARE (09/24/2025 4:04 PM [employer]) Glucose WB/POC 132(H) 70 - 99 mg/dL 09/24/2025 4:05 PM [employer] [facility] Specimen Type Arterial/C apillary 09/24/2025 4:05 PM [employer] [facility] Blood BLOOD SPECIMEN / Unknown 09/24/2025 4:04 PM [employer] 09/24/2025 4:05 PM [employer] Columba Blanc MD LAB - POINT OF CARE ORDERABL ES Final Result Performing Organization Address [facility]/ZIP Co de Phone Number [address] [address], [place] [phone] * (ABNORMAL) GLUCOSE - POINT OF CARE (09/24/2025 12:16 PM [employer]) Glucose WB/POC 218(H) 70 - 99 mg/dL 09/24/2025 12:25 PM [employer] [facility] Specimen Type Arterial/C apillary 09/24/2025 12:25 PM [employer] [facility] Blood BLOOD SPECIMEN / Unknown 09/24/2025 12:16 PM [employer] 09/24/2025 12:25 PM [employer] Columba Blanc MD LAB - POINT OF CARE ORDERABL ES Final Result Performing Organization Address City/[facility]/ZIP Co de Phone Number [address] [address], [place] [phone] * (ABNORMAL) GLUCOSE - POINT OF CARE (09/24/2025 9:28 AM [employer]) Glucose WB/POC 116(H) 70 - 99 mg/dL 09/24/2025 9:29 AM [facility] Specimen Type Arterial/C apillary 09/24/2025 9:29 AM [facility] Blood BLOOD SPECIMEN / Unknown 09/24/2025 9:28 AM [employer] 09/24/2025 9:29 AM [employer] us Columba Blanc MD LAB - POINT OF CARE ORDERABL ES Final Result [facility] [address] [place] [address], [facility] [phone] * (ABNORMAL) CBC W/O DIFFERENTIAL (09/24/2025 3:58 AM [employer]) WBC 9.7 4.0 - 10.7 x10E9/L 09/24/2025 5:23 AM [facility] RBC Count 4.18 3.90 - 5.20 x10E12/L 09/24/2025 5:23 AM [facility] Hemoglobin 12.1 11.9 - 15.8 g/dL 09/24/2025 5:23 AM [facility] Hematocrit 37.7 34.8 - 46.1 % 09/24/2025 5:23 AM [facility] MCV 90.2 80.0 - 98.0 fL 09/24/2025 5:23 AM [facility] MCH 28.9 26.7 - 33.6 pg 09/24/2025 5:23 AM [facility] MCHC 32.1 31.7 - 36.3 g/dL 09/24/2025 5:23 AM [facility] RDW-CV 15.7(H) 11.3 - 14.8 % 09/24/2025 5:23 AM [facility] Platelet Count 341 150 - 420 x10E9/L 09/24/2025 5:23 AM [facility] MPV 10.7 7.8 - 11.4 fL 09/24/2025 5:23 AM [facility] Blood BLOOD SPECIMEN / Unknown Lab Venipuncture / Unknown 09/24/2025 3:58 AM [employer] 09/24/2025 5:02 AM [facility] Columba Blanc MD LAB - HEMATOLOGY ORDERABLES Final Result [facility] [address] [place] [address], [facility] [phone] * (ABNORMAL) BASIC METABOLIC PANEL (CALCIUM TOTAL) (09/24/2025 3:58 AM [facility]) BUN 20 7 - 26 mg/dL 09/24/2025 5:46 AM [facility] Creatinine 6.62(H) 0.56 - 0.96 mg/dL 09/24/2025 5:46 AM [facility] Sodium 137 136 - 145 mmol/L 09/24/2025 5:46 AM [facility] Potassium 4.0 3.5 - 4.5 mmol/L 09/24/2025 5:46 AM [facility] Chloride 99 98 - 107 mmol/L 09/24/2025 5:46 AM [facility] CO2 24 22 - 29 mmol/L 09/24/2025 5:46 AM [facility] Glucose 96 70 - 99 mg/dL 09/24/2025 5:46 AM [facility] Calcium 10.5(H) 8.4 - 10.2 mg/dL 09/24/2025 5:46 AM [facility] Anion Gap 14 6 - 16 09/24/2025 5:46 AM [facility] BUN/Creatinine Ratio 3(L) 7 - 23 09/24/2025 5:46 AM [facility] Osmolality Calculated 286 275 - 295 mOsm/kg 09/24/2025 5:46 AM [facility] eGFR by CKD-EPI 6(L) >=90 mL/min/1.7 3 m2 09/24/2025 5:46 AM [facility] Comment:Estimated Glomerular Filtration Rate (eGFR) calculated using the CKD-EPI Creatinine Equation (2020), per the National Kidney Foundation and [place] [employer] recommendations. Blood BLOOD SPECIMEN / Unknown Lab Venipuncture / Unknown 09/24/2025 3:58 AM [employer] 09/24/2025 5:05 AM [employer] Columba Blanc MD LAB - CHEMISTRY ORDERABLES F inal Result Performing Organization Address City/[facility]/ZIP Co de Phone Number [address] [address], [place] [phone] * (ABNORMAL) GLUCOSE - POINT OF CARE (09/23/2025 8:29 PM [employer]) Glucose WB/POC 107(H) 70 - 99 mg/dL 09/23/2025 8:41 PM [employer] [facility] Specimen Type Arterial/C apillary 09/23/2025 8:41 PM [employer] [facility] Blood BLOOD SPECIMEN / Unknown 09/23/2025 8:29 PM [employer] 09/23/2025 8:41 PM [employer] Columba Blanc MD LAB - POINT OF CARE ORDERABL ES Final Result Performing Organization Address [facility]/ZIP Co de Phone Number [address] [address], [place] [phone] * (ABNORMAL) GLUCOSE - POINT OF CARE (09/23/2025 4:23 PM [employer]) Glucose WB/POC 113(H) 70 - 99 mg/dL 09/23/2025 4:28 PM [employer] [facility] Specimen Type Arterial/C apillary 09/23/2025 4:28 PM [employer] [facility] Blood BLOOD SPECIMEN / Unknown 09/23/2025 4:23 PM [employer] 09/23/2025 4:28 PM [employer] Columba Blanc MD LAB - POINT OF CARE ORDERABL ES Final Result Performing Organization Address City/[facility]/ZIP Co de Phone Number [address] [address], [place] [phone] * GLUCOSE - POINT OF CARE (09/23/2025 12:31 PM [employer]) Glucose WB/POC 89 70 - 99 mg/dL 09/23/2025 12:35 PM [facility] Specimen Type Arterial/C apillary 09/23/2025 12:35 PM [facility] Blood BLOOD SPECIMEN / Unknown 09/23/2025 12:31 PM [employer] 09/23/2025 12:35 PM [employer] us Columba Blanc MD LAB - POINT OF CARE ORDERABL ES Final Result [address] [address], [facility] [phone] * (ABNORMAL) CBC W/O DIFFERENTIAL (09/22/2025 11:39 PM [employer]) Pathologist [facility] WBC 14.1(H) 4.0 - 10.7 x10E9/L 09/23/2025 12:09 AM [facility] RBC Count 3.52(L) 3.90 - 5.20 x10E12/L 09/23/2025 12:09 AM [facility] Hemoglobin 10.2(L) 11.9 - 15.8 g/dL 09/23/2025 12:09 AM [facility] Hematocrit 32.0(L) 34.8 - 46.1 % 09/23/2025 12:09 AM [facility] MCV 90.9 80.0 - 98.0 fL 09/23/2025 12:09 AM [facility] MCH 29.0 26.7 - 33.6 pg 09/23/2025 12:09 AM [facility] MCHC 31.9 31.7 - 36.3 g/dL 09/23/2025 12:09 AM [facility] RDW-CV 15.5(H) 11.3 - 14.8 % 09/23/2025 12:09 AM [facility] Platelet Count 349 150 - 420 x10E9/L 09/23/2025 12:09 AM [facility] MPV 10.3 7.8 - 11.4 fL 09/23/2025 12:09 AM [facility] Blood BLOOD SPECIMEN / Unknown Lab Venipuncture / Unknown 09/22/2025 11:39 PM [employer] 09/22/2025 11:54 PM [employer] us Columba Blanc MD LAB - HEMATOLOGY ORDERABLES Final Result [facility] [address] [place] [address], [facility] [phone] * (ABNORMAL) BASIC METABOLIC PANEL (CALCIUM TOTAL) (09/22/2025 11:39 PM [employer]) BUN 37(H) 7 - 26 mg/dL 09/23/2025 12:22 AM [facility] Creatinine 8.90(H) 0.56 - 0.96 mg/dL 09/23/2025 12:22 AM [facility] Sodium 136 136 - 145 mmol/L 09/23/2025 12:22 AM [facility] Potassium 3.9 3.5 - 4.5 mmol/L 09/23/2025 12:22 AM [facility] Chloride 97(L) 98 - 107 mmol/L 09/23/2025 12:22 AM [facility] CO2 24 22 - 29 mmol/L 09/23/2025 12:22 AM [facility] Glucose 139(H) 70 - 99 mg/dL 09/23/2025 12:22 AM [facility] Calcium 10.1 8.4 - 10.2 mg/dL 09/23/2025 12:22 AM [facility] Anion Gap 15 6 - 16 09/23/2025 12:22 AM [facility] BUN/Creatinine Ratio 4(L) 7 - 23 09/23/2025 12:22 AM [facility] Osmolality Calculated 293 275 - 295 mOsm/kg 09/23/2025 12:22 AM [facility] eGFR by CKD-EPI 5(L) >=90 mL/min/1.7 3 m2 09/23/2025 12:22 AM [facility] Comment:Estimated Glomerular Filtration Rate (eGFR) calculated using the CKD-EPI Creatinine Equation (2020), per the National Kidney Foundation and [place] [employer] recommendations. Blood BLOOD SPECIMEN / Unknown Lab Venipuncture / Unknown 09/22/2025 11:39 PM [employer] 09/22/2025 11:54 PM [employer] Columba Blanc MD LAB - CHEMISTRY ORDERABLES F inal Result [address] [address], [place] [phone] * ERYTHROCYTE SEDIMENTATION RATE (09/22/2025 11:39 PM [employer]) Erythrocyte Sedimentation Rate Westergren 18 0 - 30 MM/HR 09/23/2025 12:21 AM [employer] [facility] Blood BLOOD SPECIMEN / Unknown Lab Venipuncture / Unknown 09/22/2025 11:39 PM [employer] 09/22/2025 11:54 PM [employer] Columba Blanc MD LAB - HEMATOLOGY ORDERABLES Final Result Performing Organization Address [facility]/ZIP Co de Phone Number [address] [address], [place] [phone] * (ABNORMAL) GLUCOSE - POINT OF CARE (09/22/2025 10:06 PM [employer]) Glucose WB/POC 200(H) 70 - 99 mg/dL 09/22/2025 10:11 PM [employer] [facility] Specimen Type Arterial/C apillary 09/22/2025 10:11 PM [employer] [facility] Blood BLOOD SPECIMEN / Unknown 09/22/2025 10:06 PM [employer] 09/22/2025 10:11 PM [employer] Columba Blanc MD LAB - POINT OF CARE ORDERABL ES Final Result Performing Organization Address City/[facility]/ZIP Co de Phone Number [address] [address], [place] [phone] * (ABNORMAL) GLUCOSE - POINT OF CARE (09/22/2025 9:09 PM [employer]) Glucose WB/POC 64(L) 70 - 99 mg/dL 09/22/2025 9:11 PM [employer] [facility] Specimen Type Arterial/C apillary 09/22/2025 9:11 PM [employer] [facility] Blood BLOOD SPECIMEN / Unknown 09/22/2025 9:09 PM [employer] 09/22/2025 9:11 PM [employer] Columba Blanc MD LAB - POINT OF CARE ORDERABL ES Final Result [address] [address], [place] [phone] * (ABNORMAL) GLUCOSE - POINT OF CARE (09/22/2025 4:00 PM [employer]) Glucose WB/POC 235(H) 70 - 99 mg/dL 09/22/2025 4:04 PM [facility] Specimen Type Arterial/C apillary 09/22/2025 4:04 PM [facility] Blood BLOOD SPECIMEN / Unknown 09/22/2025 4:00 PM [employer] 09/22/2025 4:04 PM [employer] Columba Blanc MD LAB - POINT OF CARE ORDERABL ES Final Result [address] [address], [place] [phone] * (ABNORMAL) GLUCOSE - POINT OF CARE (09/22/2025 11:54 AM [employer]) Glucose WB/POC 125(H) 70 - 99 mg/dL 09/22/2025 11:59 AM [employer] [facility] Specimen Type Arterial/C apillary 09/22/2025 11:59 AM [employer] [facility] Blood BLOOD SPECIMEN / Unknown 09/22/2025 11:54 AM [employer] 09/22/2025 11:59 AM [employer] Columba Blanc MD LAB - POINT OF CARE ORDERABL ES Final Result Performing Organization Address City/[facility]/ZIP Co de Phone Number [address] [address], [facility] [phone] * (ABNORMAL) GLUCOSE - POINT OF CARE (09/22/2025 8:06 AM [employer]) Glucose WB/POC 114(H) 70 - 99 mg/dL 09/22/2025 8:08 AM [facility] Specimen Type Arterial/C apillary 09/22/2025 8:08 AM [facility] Blood BLOOD SPECIMEN / Unknown 09/22/2025 8:06 AM [employer] 09/22/2025 8:08 AM [employer] Columba Blanc MD LAB - POINT OF CARE ORDERABL ES Final Result Performing Organization Address [facility]/ZIP Co de Phone Number [address] [address], [facility] [phone] * (ABNORMAL) CBC W/O DIFFERENTIAL (09/22/2025 4:37 AM [employer]) WBC 12.2(H) 4.0 - 10.7 x10E9/L 09/22/2025 4:57 AM [facility] RBC Count 4.05 3.90 - 5.20 x10E12/L 09/22/2025 4:57 AM [facility] Hemoglobin 11.5(L) 11.9 - 15.8 g/dL 09/22/2025 4:57 AM [facility] Hematocrit 36.1 34.8 - 46.1 % 09/22/2025 4:57 AM [facility] MCV 89.1 80.0 - 98.0 fL 09/22/2025 4:57 AM [facility] MCH 28.4 26.7 - 33.6 pg 09/22/2025 4:57 AM [facility] MCHC 31.9 31.7 - 36.3 g/dL 09/22/2025 4:57 AM [facility] RDW-CV 15.3(H) 11.3 - 14.8 % 09/22/2025 4:57 AM [facility] Platelet Count 349 150 - 420 x10E9/L 09/22/2025 4:57 AM [facility] MPV 9.9 7.8 - 11.4 fL 09/22/2025 4:57 AM [facility] Blood BLOOD SPECIMEN / Unknown Lab Venipuncture / Unknown 09/22/2025 4:37 AM ELECTRICAL FOREMAN 09/22/2025 4:50 AM [facility] us Tae Fisher MD LAB - HEMATOLOGY ORDERABLES Final Result [id number] [place] [address], [facility] [phone] * (ABNORMAL) BASIC METABOLIC PANEL (CALCIUM TOTAL) (09/22/2025 4:37 AM [facility]) BUN 24 7 - 26 mg/dL 09/22/2025 5:25 AM [facility] Creatinine 6.87(H) 0.56 - 0.96 mg/dL 09/22/2025 5:25 AM [facility] Sodium 136 136 - 145 mmol/L 09/22/2025 5:25 AM [facility] Potassium 4.4 3.5 - 4.5 mmol/L 09/22/2025 5:25 AM [facility] Chloride 97(L) 98 - 107 mmol/L 09/22/2025 5:25 AM [facility] CO2 28 22 - 29 mmol/L 09/22/2025 5:25 AM [facility] Glucose 113(H) 70 - 99 mg/dL 09/22/2025 5:25 AM [facility] Calcium 11.7(H) 8.4 - 10.2 mg/dL 09/22/2025 5:25 AM [facility] Anion Gap 11 6 - 16 09/22/2025 5:25 AM [facility] BUN/Creatinine Ratio 3(L) 7 - 23 09/22/2025 5:25 AM [facility] Osmolality Calculated 287 275 - 295 mOsm/kg 09/22/2025 5:25 AM [facility] eGFR by CKD-EPI 6(L) >=90 mL/min/1.7 3 m2 09/22/2025 5:25 AM [facility] Comment:Estimated Glomerular Filtration Rate (eGFR) calculated using the CKD-EPI Creatinine Equation (2020), per the National Kidney Foundation and [place] [employer] Neph[employer] recommendations. Blood BLOOD SPECIMEN / Unknown Lab Venipuncture / Unknown 09/22/2025 4:37 AM ELECTRICAL FOREMAN 09/22/2025 4:51 AM ELECTRICAL FOREMAN Tae Fisher MD LAB - CHEMISTRY ORDERABLES F inal Result Performing Organization Address City/[facility]/ZIP Co de Phone Number [address] [address], [place] [phone] * (ABNORMAL) GLUCOSE - POINT OF CARE (09/21/2025 8:34 PM ELECTRICAL FOREMAN) Glucose WB/POC 117(H) 70 - 99 mg/dL 09/21/2025 8:39 PM [facility] Specimen Type Arterial/C apillary 09/21/2025 8:39 PM [facility] Blood BLOOD SPECIMEN / Unknown 09/21/2025 8:34 PM ELECT[employer]ICAL FOREM[employer] 09/21/2025 8:39 PM ELECTRICAL FOREMAN Columba Blanc MD LAB - POINT OF CARE ORDERABL ES Final Result Performing Organization Address City/[facility]/ZIP Co de Phone Number [address] [address], [place] [phone] * (ABNORMAL) GLUCOSE - POINT OF CARE (09/21/2025 12:23 PM ELECTRICAL FOREM[employer]) Glucose WB/POC 103(H) 70 - 99 mg/dL 09/21/2025 12:27 PM ELECTRICAL FOREMAN [facility] Specimen Type Arterial/C apillary 09/21/2025 12:27 PM [facility] Blood BLOOD SPECIMEN / Unknown 09/21/2025 12:23 PM ELECTRICAL FOREMAN 09/21/2025 12:27 PM ELECTRICAL FOREMAN Columba Blanc MD LAB - POINT OF CARE ORDERABL ES Final Result Performing Organization Address City/[facility]/ZIP Co de Phone Number [address] [address], [place] [phone] * GLUCOSE - POINT OF CARE (09/21/2025 7:46 AM ELECTRICAL FOREMAN) Pathologist [facility] Glucose WB/POC 98 70 - 99 mg/dL 09/21/2025 7:57 AM ELECTRICAL FOREMAN [facility] Specimen Type Arterial/C apillary 09/21/2025 7:57 AM ELECTRICAL FOREMAN [facility] Blood BLOOD SPECIMEN / Unknown 09/21/2025 7:46 AM ELECTRICAL FOREMAN 09/21/2025 7:56 AM ELECTRICAL FOREMAN Columba Blanc MD LAB - POINT OF CARE ORDERABL ES Final Result Performing Organization Address City/[facility]/ZIP Co de Phone Number [address] [address], [place] [phone] * (ABNORMAL) HEPATITIS B SURFACE ANTIBODY QUANT (09/21/2025 6:27 AM ELECTRICAL FOREMAN) [facility] Hepatitis B Virus Surface Antibody Reactive( A) Non-react nancy 09/21/2025 7:58 AM [facility] Comment: > 12 mIU/mL Hepatitis B surface Antibody (HBsAb). Reactive for HBsAb - individual is considered immune to Hepatitis B Virus infection. Hepatitis B Surface Antibody Quantitative 29.9(H) <8.0 mIU/mL 09/21/2025 7:58 AM [facility] Comment: Hepatitis B Surface Antibody Numeric Result Interpretation: Nonreactive: <8.0 mIU/mL Indeterminate: 8.0 - 12.0 mIU/mL Reactive: >12.0 mIU/mL Blood BLOOD SPECIMEN / Unknown Lab Venipuncture / Unknown 09/21/2025 6:27 AM ELECTRICAL FOREMAN 09/21/2025 6:35 AM ELECTRICAL FOREMAN Narrative [facility] - 09/21/2025 7:58 AM ELECTRICAL FOREMAN This assay should not be used for blood, plasma, or tissue donor screening. This assay is not recommended for neonates born to HBV-infected or suspected HBV-infected mothers. Sierra Benson MD LAB - SEROLOGY ORDERABLES Fin al Result Performing Organization Address City/[facility]/ZIP Co de Phone Number [address] [address], [place] [phone] * HEPATITIS B SURFACE ANTIGEN W RFLX CONFIRMATION (09/21/2025 6:27 AM ELECTRICAL FOREMAN) [facility] Hepatitis B Virus Surface Antigen Non-reacti ve Non-reacti ve 09/21/2025 7:58 AM [facility] Blood BLOOD SPECIMEN / Unknown Lab Venipuncture / Unknown 09/21/2025 6:27 AM ELECTRICAL FOREMAN 09/21/2025 6:35 AM ELECTRICAL FOREMAN Sierra Benson MD LAB - CHEMISTRY ORDERABLES Fi nal Result Performing Organization Address [facility] Co de Phone Number [address] [address], [facility] [phone] * (ABNORMAL) BASIC METABOLIC PANEL (CALCIUM TOTAL) (09/21/2025 4:36 AM ELECTRICAL FOREMAN) [facility] BUN 51(H) 7 - 26 mg/dL 09/21/2025 5:54 AM [facility] Creatinine 11.29(H) 0.56 - 0.96 mg/dL 09/21/2025 5:54 AM [facility] Sodium 140 136 - 145 mmol/L 09/21/2025 5:54 AM [facility] Potassium 4.7(H) 3.5 - 4.5 mmol/L 09/21/2025 5:54 AM [facility] Chloride 96(L) 98 - 107 mmol/L 09/21/2025 5:54 AM [facility] CO2 27 22 - 29 mmol/L 09/21/2025 5:54 AM [facility] Glucose 68(L) 70 - 99 mg/dL 09/21/2025 5:54 AM [facility] Calcium 11.0(H) 8.4 - 10.2 mg/dL 09/21/2025 5:54 AM [facility] Anion Gap 17(H) 6 - 16 09/21/2025 5:54 AM [facility] BUN/Creatinine Ratio 5(L) 7 - 23 09/21/2025 5:54 AM [facility] Osmolality Calculated 302(H) 275 - 295 mOsm/kg 09/21/2025 5:54 AM [facility] eGFR by CKD-EPI 3(L) >=90 mL/min/1.7 3 m2 09/21/2025 5:54 AM [facility] Comment:Estimated Glomerular Filtration Rate (eGFR) calculated using the CKD-EPI Creatinine Equation (2020), per the National Kidney Foundation and [place] [employer] Nephrology recommendations. Blood BLOOD SPECIMEN / Unknown Lab Venipuncture / Unknown 09/21/2025 4:36 AM ELECTRICAL FOREMAN 09/21/2025 4:36 AM [facility] us Tae Fisher MD LAB - CHEMISTRY ORDERABLES F inal Result [facility] [address] [place] [address], [facility] [phone] * LEX BLOOD SCREEN W/REFLEX TITER (09/21/2025 4:36 AM ELECTRICAL FOREMAN) LEX IgG None Detected None Detected 09/24/2025 6:59 AM [facility] ([facility]) Comment: No Anti-Nuclear Antibodies (LEX) detected by ABHIJEET. No further testing will be performed. If suspicion of connective tissue disease is strong and LEX ABHIJEET is negative, consider testing for LEX by IFA ([id number]). INTERPRETIVE INFORMATION: Anti-Nuclear Antibodies (LEX), IgG by ABHIJEET Antinuclear Antibodies (LEX), IgG by ABHIJEET: LEX specimens are screened using enzyme-linked immunosorbent assay (ABHIJEET) methodology. All ABHIJEET results reported as Detected are further tested by indirect fluorescent assay (IFA) using HEp-2 substrate with an IgG-specific conjugate. The LEX ABHIJEET screen is designed to detect antibodies against dsDNA, histones, SS-A (Ro), SS-B (La), Newman, Newman/TITLE SUPERVISOR, Scl-70, Erica-1, centromeric proteins, other antigens extracted from the HEp-2 cell nucleus. LEX ABHIJEET assays have been reported to have lower sensitivities than LEX IFA for systemic autoimmune rheumatic diseases (SARD). Negative results do not necessarily rule out SARD. Performed By: [employer] [address] [place] [address] Curriculum Development Coordinator: Joao Luis MD, PhD CLIA Number: [id number] Blood BLOOD SPECIMEN / Unknown Lab Venipuncture / Unknown 09/21/2025 4:36 AM ELECTRICAL FOREMAN 09/21/2025 4:36 AM ELECTRICAL FOREMAN Columba Blanc MD LAB - CHEMISTRY ORDERABLES F inal Result Performing Organization Address [facility]/ZIP Co de Phone Number [facility] ([facility]) [address] [place] [address], [facility] * SS-A/SS-B (SJOGREN'S) ANTIBODY PANEL (09/21/2025 4:36 AM ELECTRICAL FOREMAN) Sjogren's Antibodies (SSA) <0.2 0.0 - 0.9 AI 09/23/2025 2:10 PM ELECTRICAL FOREMAN [facility] ([facility]) Sjogren's Antibodies (SSB) <0.2 0.0 - 0.9 AI 09/23/2025 2:10 PM ELECTRICAL FOREMAN [facility] ([facility]) Blood BLOOD SPECIMEN / Unknown Lab Venipuncture / Unknown 09/21/2025 4:36 AM ELECTRICAL FOREMAN 09/21/2025 4:36 AM ELECTRICAL FOREMAN Narrative [facility] ([facility]) - 09/23/2025 2:10 PM ELECTRICAL FOREMAN Performed at: 01 - [facility] [place] [address] [place], [place] [id number] Cabinetmaker Helper: Charbel Gooden PhD, Phone: [phone] Columba Blanc MD LAB - CHEMISTRY ORDERABLES F inal Result Performing Organization Address City/[facility]/ZIP Co de Phone Number [facility]) [address] [place] [address], [facility] * ANCA VASCULITIS PANEL (09/21/2025 4:36 AM ELECTRICAL FOREMAN) Myeloperoxidase Antibody 0 0 - 19 AU/mL 09/25/2025 6:22 AM [facility] ([facility]) Comment: INTERPRETIVE INFORMATION: Myeloperoxidase Abs, IgG 19 AU/mL or Less ......... Negative 20-25 AU/mL .............. Equivocal 26 AU/mL or Greater ...... Positive Approximately 90% of patients with a P-ANCA pattern by IFA have antibodies specific for MPO. Serine Proteinase 3 IgG 0 0 - 19 AU/mL 09/25/2025 6:22 AM [facility] ([facility]) Comment: INTERPRETIVE INFORMATION: Serine Proteinase 3, IgG 19 AU/mL or Less ........ Negative 20-25 AU/mL ............. Equivocal 26 AU/mL or Greater ..... Positive Approximately 85% of patients with a C-ANCA pattern by IFA have antibodies specific for PR3. ANCA Titer IFA <1:20 <1:20 09/25/2025 6:22 AM [facility] ([facility]) ANCA Pattern IFA None Detected None Detected 09/25/2025 6:22 AM [facility] [place] [employer] ([facility]) Comment: INTERPRETIVE INFORMATION: ANCA IFA Pattern Neutrophil Cytoplasmic Antibodies (C-ANCA = granular cytoplasmic staining, P-ANCA = perinuclear staining) are found in the serum of over 90 percent of patients with certain necrotizing systemic vasculitides, and usually in less than 5 percent of patients with collagen vascular disease or arthritis. Performed By: [employer] [address] [place] [address] Curriculum Development Coordinator: Joao Luis MD, PhD CLIA Number: [id number] Blood BLOOD SPECIMEN / Unknown Lab Venipuncture / Unknown 09/21/2025 4:36 AM ELECTRICAL FOREMAN 09/21/2025 4:36 AM [facility] Columba Blanc MD LAB - CHEMISTRY ORDERABLES F inal Result [employer] [facility]) [address] [place] [address] * (ABNORMAL) C-REACTIVE PROTEIN (09/21/2025 4:36 AM ELECTRICAL FOREMAN) C-Reactive Protein 0.8(H) <=0.5 mg/dL 09/21/2025 5:54 AM ELECTRICAL FOREMAN [facility] Blood BLOOD SPECIMEN / Unknown Lab Venipuncture / Unknown 09/21/2025 4:36 AM ELECTRICAL FOREMAN 09/21/2025 4:36 AM ELECTRICAL FOREMAN Columba Blanc MD LAB - CHEMISTRY ORDERABLES F inal Result Performing Organization Address [facility]/ZIP Co de Phone Number [address] [address], [facility] [phone] * (ABNORMAL) VITAMIN D 25-HYDROXY (09/21/2025 4:36 AM ELECTRICAL FOREMAN) [facility] Vitamin D, 25 Hydroxy 19.9(L) 30.0 - 80.0 ng/mL 09/21/2025 6:09 AM [facility] Comment: The recommendations for 25-Hydroxy Vitamin D [...] Lab Venipuncture / Unknown 09/21/2025 4:36 AM ELECTRICAL FOREMAN 09/21/2025 4:36 AM ELECTRICAL FOREMAN Columba Blanc MD LAB - CHEMISTRY ORDERABLES F inal Result Performing Organization Address [facility]/ZIP Co de Phone Number [address] [address], [place] [phone] * (ABNORMAL) VITAMIN D 1,25 DIHYDROXY (09/21/2025 4:36 AM ELECTRICAL FOREMAN) [facility] Vitamin D, 1,25 Dihydroxy 14.1(L) 19.9 - 79.3 pg/mL 09/23/2025 2:06 PM ELECTRICAL FOREMAN [facility] ([facility]) Comment: INTERPRETIVE INFORMATION: Vitamin D, 1,25-Dihydroxy This test is primarily indicated during patient evaluation for hypercalcemia and renal failure. A normal result does not rule out Vitamin D deficiency. The recommended test for diagnosing Vitamin D deficiency is Vitamin D 25-hydroxy. Performed By: [employer] [address] [place] [address] Curriculum Development Coordinator: Joao Luis MD, PhD CLIA Number: [id number] Blood BLOOD SPECIMEN / Unknown Lab Venipuncture / Unknown 09/21/2025 4:36 AM ELECTRICAL FOREMAN 09/21/2025 4:36 AM ELECTRICAL FOREMAN Columba Blanc MD LAB - CHEMISTRY ORDERABLES F inal Result Performing Organization Address [facility] de Phone Number [address] * (ABNORMAL) PTH RELATED PEPTIDE (09/21/2025 4:36 AM ELECTRICAL FOREMAN) [facility] PTH Related Peptide 6.0(H) 0.0 - 3.4 pmol/L 09/29/2025 9:33 AM ELECTRICAL FOREMAN [facility] ([facility]) Comment: INTERPRETIVE INFORMATION: Parathyroid Hormone-Related Peptide This test was developed and its performance characteristics determined by [employer]. It has not been cleared or approved by the US Food and Drug Administration. This test was performed in a CLIA certified laboratory and is intended for clinical purposes. Performed By: [employer] [address] [place] [address] Curriculum Development Coordinator: Joao Luis MD, PhD CLIA Number: [id number] Blood BLOOD SPECIMEN / Unknown Lab Venipuncture / Unknown 09/21/2025 4:36 AM ELECTRICAL FOREMAN 09/21/2025 4:36 AM ELECTRICAL FOREMAN Columba Blanc MD LAB - CHEMISTRY ORDERABLES F inal Result Performing Organization Address [facility] Co de Phone Number [facility]) [address] [place], [place] [address] * CALCIUM IONIZED WHOLE BLOOD (09/21/2025 4:35 AM ELECTRICAL FOREMAN) Calcium Ionized 1.32 mmol/L 09/21/2025 5:13 AM ELECTRICAL FOREMAN [facility] pH 7.38 7.35 - 7.45 pH 09/21/2025 5:13 AM ELECTRICAL FOREMAN [facility] Ionized Calcium pH Adjusted 1.31 1.19 - 1.34 mmol/L 09/21/2025 5:13 AM ELECTRICAL FOREMAN [facility] Blood BLOOD SPECIMEN / Unknown Lab Venipuncture / Unknown 09/21/2025 4:35 AM ELECTRICAL FOREMAN 09/21/2025 4:35 AM ELECTRICAL FOREMAN Columba Blanc MD LAB - CHEMISTRY ORDERABLES F inal Result [facility] [address] [place] [address], [facility] [phone] * XR Abdomen Kub Portable (09/20/2025 11:44 PM ELECTRICAL FOREMAN) Anatomical Region Laterality Modality Abdomen Digital Radiogra phy 09/21/2025 11:5 7 PM ELECTRICAL FOREMAN Impressions 09/21/2025 11:57 PM ELECTRICAL FOREMAN Impression: Nasogastric tube is in the stomach. The visualized bowel gas pattern is normal. The visualized lung bases are clear. No displaced fracture. > Interpreting Provider: Venancio Varela MD on 09/21/2025 11:57 PM Narrative 09/21/2025 11:57 PM ELECTRICAL FOREMAN PROCEDURE: XR ABDOMEN KUB PORTABLE, DATE/TIME OF EXAM: 09/20/2025 11:44 PM, LOCATION [facility] INDICATION: I63.9: Ischemic stroke (HCC) ADDITIONAL CLINICAL INFORMATION: Ordering Provider Reason For Exam: NGT placement Technologist Note: Additional: COMPARISON: None. Procedure Note Venancio Varela MD - 09/21/2025 PROCEDURE: XR ABDOMEN KUB PORTABLE, DATE/TIME OF EXAM: 1:44 PM, LOCATION [facility] INDICATION: I63.9: Ischemic stroke (HCC) ADDITIONAL CLINICAL INFORMATION: Ordering Provider Reason For Exam: NGT placement Technologist Note: Additional: COMPARISON: None. Impression: Nasogastric tube is in the stomach. The visualized bowel gas pattern is normal. The visualized lung bases are clear. No displaced fracture. > Interpreting Provider: Venancio Varela MD on 09/21/2025 11:57 PM Columba Blanc MD DIAGNOSTIC IMAGING ORDERABLE S Final Result * GLUCOSE - POINT OF CARE (09/20/2025 11:06 PM ELECTRICAL FOREMAN) Glucose WB/POC 71 70 - 99 mg/dL 09/20/2025 11:10 PM ELECTRICAL FOREMAN [facility] Specimen Type Arterial/C apillary 09/20/2025 11:10 PM ELECTRICAL FOREMAN [facility] Blood BLOOD SPECIMEN / Unknown 09/20/2025 11:06 PM ELECTRICAL FOREMAN 09/20/2025 11:10 PM ELECTRICAL FOREMAN Columba Blanc MD LAB - POINT OF CARE ORDERABL ES Final Result Performing Organization Address City/[facility]/ZIP Co de Phone Number [address] [address], [place] [phone] * (ABNORMAL) GLUCOSE - POINT OF CARE (09/20/2025 9:07 PM ELECTRICAL FOREMAN) [facility] Glucose WB/POC 62(L) 70 - 99 mg/dL 09/20/2025 9:11 PM ELECTRICAL FOREMAN [facility] Specimen Type Arterial/C apillary 09/20/2025 9:11 PM ELECTRICAL FOREMAN [facility] Blood BLOOD SPECIMEN / Unknown 09/20/2025 9:07 PM ELECTRICAL FOREMAN 09/20/2025 9:11 PM ELECTRICAL FOREMAN Columba Blanc MD LAB - POINT OF CARE ORDERABL ES Final Result [address] [address], [place] [phone] * GLUCOSE - POINT OF CARE (09/20/2025 6:24 PM ELECTRICAL FOREMAN) Glucose WB/POC 95 70 - 99 mg/dL 09/20/2025 6:25 PM ELECTRICAL FOREMAN [facility] Specimen Type Arterial/C apillary 09/20/2025 6:25 PM ELECTRICAL FOREMAN [facility] Blood BLOOD SPECIMEN / Unknown 09/20/2025 6:24 PM ELECTRICAL FOREMAN 09/20/2025 6:25 PM ELECTRICAL FOREMAN Columba Blanc MD LAB - POINT OF CARE ORDERABL ES Final Result [address] [address], [place] [phone] * (ABNORMAL) GLUCOSE - POINT OF CARE (09/20/2025 4:21 PM ELECTRICAL FOREMAN) Glucose WB/POC 133(H) 70 - 99 mg/dL 09/20/2025 4:26 PM ELECTRICAL FOREMAN [facility] Specimen Type Arterial/C apillary 09/20/2025 4:26 PM ELECTRICAL FOREMAN [facility] Blood BLOOD SPECIMEN / Unknown 09/20/2025 4:21 PM ELECTRICAL FOREMAN 09/20/2025 4:26 PM ELECTRICAL FOREMAN Columba Blanc MD LAB - POINT OF CARE ORDERABL ES Final Result Performing Organization Address City/[facility]/ZIP Co de Phone Number [address] [address], [place] [phone] * (ABNORMAL) GLUCOSE - POINT OF CARE (09/20/2025 3:51 PM ELECTRICAL FOREMAN) Glucose WB/POC 68(L) 70 - 99 mg/dL 09/20/2025 3:59 PM ELECTRICAL FOREMAN [facility] Specimen Type Arterial/C apillary 09/20/2025 3:59 PM ELECTRICAL FOREMAN [facility] Blood BLOOD SPECIMEN / Unknown 09/20/2025 3:51 PM ELECTRICAL FOREMAN 09/20/2025 3:59 PM ELECTRICAL FOREMAN Columba Blanc MD LAB - POINT OF CARE ORDERABL ES Final Result [facility] [address] [place] [address], [facility] [phone] * IR Carotid Cerebral Angiogram (09/20/2025 11:28 AM ELECTRICAL FOREMAN) Anatomical Region Laterality Modality Head X-Ray Angiograph y 09/20/2025 1:54 PM ELECTRICAL FOREMAN Impressions 09/20/2025 3:49 PM ELECTRICAL FOREMAN Impression: - Multiple alternating areas of moderate to severe stenosis affecting anterior and posterior circulation following a beading pattern. This could represent severe intracranial atherosclerosis or AIRCREWMAN vasculitis, recommend clinical correlation. > Dictated by Piped Buttonhole Machine Operator I, Omar Jack MD have personally reviewed and interpreted this examination/study. > Interpreting Provider: Omar Jack MD on 09/20/2025 3:49 PM Narrative 09/20/2025 3:49 PM ELECTRICAL FOREMAN DATE/TIME OF EXAM: 09/20/2025 10:00 AM Procedure: Diagnostic Catheter Cerebral Angiogram Comparison Study: Brain and neck MRA from 09/19/2025 History: 65 yo woman admitted for an acute infarct in left frontal lobe. CTA shows severe multiple areas of stenosis in anterior and posterior circulation. Plan cerebral angiogram for evaluation of severe intracranial vasculopathy. Vulcanized Fiber Unit Operator: Dr. Jack Floor Waxer(s): Idris Blanc MD; Santo Hong MD. Vessels: [...] this adult patient was ordered by the travograph operator, administered intravenously in my presence, and [...] patient evaluation, please review the evaluation in EPIC. For details on monitored clinical parameters during the intra-service sedation time, please review the procedure nurse documentation in EPIC. Procedural detail: The risks, benefits, and alternatives [...] Following a series of exchanges, a 5 Norwegian 11 cm Glidesheath slender was placed in the radial artery. A radial angiogram was performed through the sheath. A spasmolytic cocktail containing 3000u heparin, 2.5mg verapamil, and 200mcg of nitroglycerin was administered. A 5 Norwegian Glidecath Rosas 2 diagnostic catheter along with [...] caliber posterior communicating artery suggestive of a STAFF EDUCATOR variant. The middle cerebral artery has a [...] caliber posterior communicating artery suggestive of a STAFF EDUCATOR variant. The middle cerebral artery has a [...] cerebral angiogram for evaluation of severe intracranialvasculopathy. Vulcanized Fiber Unit Operator: Dr. Jack Floor Waxer(s): Idris Blanc MD; Santo Hong MD. Vessels: [...] this adult patient was ordered by the travograph operator, administered intravenously in my presence, and [...] patient evaluation, please review the evaluation in [facility]. For details on monitored clinical parameters during the intra-servicesedation time, please review the procedure nurse documentation in [facility]. Procedural detail: The risks, benefits, and [...] Following a series of exchanges, a 5 Norwegian 11 cm Glidesheath slender was placed in the radial artery. A radial angiogram wasperformed through the sheath. A spasmolytic cocktail containing 3000u heparin,2.5mg verapamil, and 200mcg of nitroglycerin was administered. A 5 Norwegian Glidecath Rosas 2 diagnostic catheter along with [...] the arterial system.Hemostasis was achieved using a The Clearing radial band closure device. Hemostasis was immediate [...] caliber posterior communicating artery suggestive of a STAFF EDUCATOR variant. The middle cerebral artery has adiffuse [...] caliber posterior communicating artery suggestive of a STAFF EDUCATOR variant. The middle cerebral artery has anormal [...] This could represent severe intracranial atherosclerosis or AIRCREWMAN vasculitis, recommend clinical correlation. > Dictated by Piped Buttonhole Machine Operator I, Omar Jack MD have personally reviewed and interpreted this examination/study. > Interpreting Provider: Omar Jack MD on 09/20/2025 3:49 PM us Tae Fisher MD IR ORDERABLES Final Result * XR Chest 1Vw (09/20/2025 9:10 AM ELECTRICAL FOREMAN) Anatomical Region Laterality Modality Chest Digital Radiogra phy 09/20/2025 9:24 AM ELECTRICAL FOREMAN Narrative 09/20/2025 11:45 AM ELECTRICAL FOREMAN PROCEDURE: XR CHEST 1VW, DATE/TIME OF EXAM: 09/20/2025 9:10 AM, LOCATION [facility] INDICATION: N18.6: ESRD (end stage renal disease) ([facility]) ADDITIONAL CLINICAL INFORMATION: Ordering Provider Reason For [...] thorax. > Dictated by Vargas Bach M.D., (resident engineer). > Dictated by Piped Buttonhole Machine Operator Ghulam Coles MD have personally reviewed and interpreted this examination/study. > Interpreting Provider: Ghulam Boykin MD on 09/20/2025 11:45 AM Procedure Note Ghulam Boykin MD - 09/20/2025 PROCEDURE: XR CHEST 1VW, DATE/TIME OF EXAM: 09/20/2025 9:10 AM, LOCATION [facility] INDICATION: N18.6: ESRD (end stage renal disease) ([facility]) ADDITIONAL CLINICAL INFORMATION: Ordering Provider Reason For [...] thorax. > Dictated by Vargas Bach M.D., (resident engineer). > Dictated by Piped Buttonhole Machine Operator Ghulam Coles MD have personally reviewed and interpreted this examination/study. > Interpreting Provider: Ghulam Boykin MD on 09/20/2025 11:45 AM Tae Fisher MD DIAGNOSTIC IMAGING ORDERABLE S Final Result * GLUCOSE - POINT OF CARE (09/20/2025 8:09 AM ELECTRICAL FOREMAN) Glucose WB/POC 84 70 - 99 mg/dL 09/20/2025 8:19 AM ELECTRICAL FOREMAN [facility] Specimen Type Arterial/C apillary 09/20/2025 8:19 AM ELECTRICAL FOREMAN [facility] Blood BLOOD SPECIMEN / Unknown 09/20/2025 8:09 AM ELECTRICAL FOREMAN 09/20/2025 8:19 AM ELECTRICAL FOREMAN us Tae Fisher MD LAB - POINT OF CARE ORDERABL ES Final Result Performing Organization Address City/[facility]/ZIP Co de Phone Number [address] [address], [place] [phone] * TROPONIN-I HIGH SENSITIVE REFLEX 1HOUR (09/20/2025 5:42 AM ELECTRICAL FOREMAN) Troponin I High Sensitive 13 <=14 ng/L 09/20/2025 6:53 AM ELECTRICAL FOREMAN [facility] [place] Troponin I HS 0 <6 ng/L 09/20/2025 6:53 AM ELECTRICAL FOREMAN [facility] Blood BLOOD SPECIMEN / Unknown Lab Venipuncture / Unknown 09/20/2025 5:42 AM ELECTRICAL FOREMAN 09/20/2025 6:10 AM ELECTRICAL FOREMAN us Tae Fisher MD LAB - CHEMISTRY ORDERABLES F inal Result Performing Organization Address City/[facility]/ZIP Co de Phone Number [address] [address], [place] [phone] * (ABNORMAL) PTH INTACT W/O CALCIUM (09/20/2025 4:12 AM ELECTRICAL FOREMAN) PTH Intact 1,836.5(H) 8.0 - 77.0 pg/mL 09/20/2025 5:51 AM [facility] Blood BLOOD SPECIMEN / Unknown Lab Venipuncture / Unknown 09/20/2025 4:12 AM ELECTRICAL FOREMAN 09/20/2025 4:47 AM ELECTRICAL FOREMAN us Tae Fisher MD LAB - CHEMISTRY ORDERABLES F inal Result [address] [address], [place] [phone] * (ABNORMAL) PHOSPHORUS BLOOD (09/20/2025 4:12 AM ELECTRICAL FOREMAN) Phosphorus 6.6(H) 2.9 - 5.1 mg/dL 09/20/2025 5:38 AM [facility] Blood BLOOD SPECIMEN / Unknown Lab Venipuncture / Unknown 09/20/2025 4:12 AM ELECTRICAL FOREMAN 09/20/2025 5:10 AM ELECTRICAL FOREMAN Tae Fisher MD LAB - CHEMISTRY ORDERABLES F inal Result Performing Organization Address City/[facility]/ZIP Co de Phone Number [address] [address], [facility] [phone] * MAGNESIUM BLOOD (09/20/2025 4:12 AM ELECTRICAL FOREMAN) Pathologist [facility] Magnesium 2.2 1.6 - 2.6 mg/dL 09/20/2025 5:44 AM [facility] Blood BLOOD SPECIMEN / Unknown Lab Venipuncture / Unknown 09/20/2025 4:12 AM ELECTRICAL FOREMAN 09/20/2025 5:11 AM ELECTRICAL FOREMAN Tae Fisher MD LAB - CHEMISTRY ORDERABLES F inal Result Performing Organization Address [facility]/ZIP Co de Phone Number [address] [address], [facility] [phone] * (ABNORMAL) CBC W AUTO DIFFERENTIAL (09/20/2025 4:12 AM ELECTRICAL FOREMAN) WBC 8.8 4.0 - 10.7 x10E9/L 09/20/2025 5:20 AM [facility] RBC Count 4.01 3.90 - 5.20 x10E12/L 09/20/2025 5:20 AM [facility] Hemoglobin 11.4(L) 11.9 - 15.8 g/dL 09/20/2025 5:20 AM [facility] Hematocrit 35.5 34.8 - 46.1 % 09/20/2025 5:20 AM [facility] MCV 88.5 80.0 - 98.0 fL 09/20/2025 5:20 AM [facility] MCH 28.4 26.7 - 33.6 pg 09/20/2025 5:20 AM [facility] MCHC 32.1 31.7 - 36.3 g/dL 09/20/2025 5:20 AM [facility] RDW-CV 14.9(H) 11.3 - 14.8 % 09/20/2025 5:20 AM [facility] Platelet Count 312 150 - 420 x10E9/L 09/20/2025 5:20 AM [facility] MPV 10.5 7.8 - 11.4 fL 09/20/2025 5:20 AM [facility] Neutrophil % 55.8 41.0 - 74.0 % 09/20/2025 5:20 AM [facility] Lymphocyte % 29.5 17.0 - 47.0 % 09/20/2025 5:20 AM [facility] Monocyte % 10.7 3.0 - 11.0 % 09/20/2025 5:20 AM [facility] Eosinophil % 2.8 0.0 - 7.0 % 09/20/2025 5:20 AM [facility] Basophil % 0.9 0.0 - 1.6 % 09/20/2025 5:20 AM [facility] Immature Granulocytes % 0.3 0.0 - 1.0 % 09/20/2025 5:20 AM [facility] Neutrophil Absolute 4.91 1.60 - 7.50 x10E9/L 09/20/2025 5:20 AM [facility] Lymphocyte Absolute 2.60 1.00 - 4.40 x10E9/L 09/20/2025 5:20 AM [facility] Monocyte Absolute 0.94 0.15 - 1.00 x10E9/L 09/20/2025 5:20 AM [facility] Eosinophil Absolute 0.25 0.00 - 0.60 x10E9/L 09/20/2025 5:20 AM [facility] Basophil Absolute 0.08 0.00 - 0.13 x10E9/L 09/20/2025 5:20 AM [facility] Blood BLOOD SPECIMEN / Unknown Lab Venipuncture / Unknown 09/20/2025 4:12 AM [facility] 09/20/2025 5:06 AM [facility] us Tae Fisher MD LAB - HEMATOLOGY ORDERABLES Final Result [facility] [address] [place] [address], [facility] [phone] * (ABNORMAL) COMPREHENSIVE METABOLIC PANEL (09/20/2025 4:12 AM [facility]) BUN 43(H) 7 - 26 mg/dL 09/20/2025 5:44 AM [facility] Creatinine 9.14(H) 0.56 - 0.96 mg/dL 09/20/2025 5:44 AM [facility] Sodium 140 136 - 145 mmol/L 09/20/2025 5:44 AM [facility] Potassium 3.7 3.5 - 4.5 mmol/L 09/20/2025 5:44 AM [facility] Chloride 95(L) 98 - 107 mmol/L 09/20/2025 5:44 AM [facility] CO2 29 22 - 29 mmol/L 09/20/2025 5:44 AM [facility] Glucose 69(L) 70 - 99 mg/dL 09/20/2025 5:44 AM [facility] Calcium 10.7(H) 8.4 - 10.2 mg/dL 09/20/2025 5:44 AM [facility] Protein Total 7.0 6.0 - 8.3 g/dL 09/20/2025 5:44 AM [facility] Albumin 3.5 3.4 - 5.0 g/dL 09/20/2025 5:44 AM [facility] Bilirubin Total 0.5 0.2 - 1.2 mg/dL 09/20/2025 5:44 AM [facility] Alkaline Phosphatase 114 40 - 150 U/L 09/20/2025 5:44 AM [facility] ALT 13 5 - 55 U/L 09/20/2025 5:44 AM [facility] AST 14 5 - 34 U/L 09/20/2025 5:44 AM [facility] Anion Gap 16 6 - 16 09/20/2025 5:44 AM [facility] BUN/Creatinine Ratio 5(L) 7 - 23 09/20/2025 5:44 AM [facility] Osmolality Calculated 299(H) 275 - 295 mOsm/kg 09/20/2025 5:44 AM [facility] Albumin/Globulin Ratio 1.0(L) 1.1 - 2.3 09/20/2025 5:44 AM [facility] eGFR by CKD-EPI 4(L) >=90 mL/min/1.7 3 m2 09/20/2025 5:44 AM [facility] Comment:Estimated Glomerular Filtration Rate (eGFR) calculated using the CKD-EPI Creatinine Equation (2020), per the National Kidney Foundation and [place] Society [employer] Neph[employer] recommendations. Blood BLOOD SPECIMEN / Unknown Lab Venipuncture / Unknown 09/20/2025 4:12 AM ELECTRICAL FOREMAN 09/20/2025 5:11 AM [facility] us Tae Fisher MD LAB - CHEMISTRY ORDERABLES F inal Result Performing Organization Address City/State/[facility] Co de Phone Number [address] [address] [phone] * (ABNORMAL) CBC W/O DIFFERENTIAL (09/20/2025 4:12 AM ELECTRICAL FOREMAN) WBC 8.8 4.0 - 10.7 x10E9/L 09/20/2025 5:20 AM [facility] RBC Count 4.01 3.90 - 5.20 x10E12/L 09/20/2025 5:20 AM [facility] Hemoglobin 11.4(L) 11.9 - 15.8 g/dL 09/20/2025 5:20 AM [facility] Hematocrit 35.5 34.8 - 46.1 % 09/20/2025 5:20 AM [facility] MCV 88.5 80.0 - 98.0 fL 09/20/2025 5:20 AM [facility] MCH 28.4 26.7 - 33.6 pg 09/20/2025 5:20 AM [facility] MCHC 32.1 31.7 - 36.3 g/dL 09/20/2025 5:20 AM [facility] RDW-CV 14.9(H) 11.3 - 14.8 % 09/20/2025 5:20 AM [facility] Platelet Count 312 150 - 420 x10E9/L 09/20/2025 5:20 AM [facility] MPV 10.5 7.8 - 11.4 fL 09/20/2025 5:20 AM [facility] Blood BLOOD SPECIMEN / Unknown Lab Venipuncture / Unknown 09/20/2025 4:12 AM ELECTRICAL FOREMAN 09/20/2025 5:06 AM [facility] us Tae Fisher MD LAB - HEMATOLOGY ORDERABLES Final Result [facility] [address] [place] [address], [facility] [phone] * (ABNORMAL) BASIC METABOLIC PANEL (CALCIUM TOTAL) (09/20/2025 4:12 AM ELECTRICAL FOREMAN) BUN 43(H) 7 - 26 mg/dL 09/20/2025 5:44 AM [facility] Creatinine 9.14(H) 0.56 - 0.96 mg/dL 09/20/2025 5:44 AM [facility] Sodium 140 136 - 145 mmol/L 09/20/2025 5:44 AM [facility] Potassium 3.7 3.5 - 4.5 mmol/L 09/20/2025 5:44 AM [facility] Chloride 95(L) 98 - 107 mmol/L 09/20/2025 5:44 AM [facility] CO2 29 22 - 29 mmol/L 09/20/2025 5:44 AM [facility] Glucose 69(L) 70 - 99 mg/dL 09/20/2025 5:44 AM [facility] Calcium 10.7(H) 8.4 - 10.2 mg/dL 09/20/2025 5:44 AM [facility] Anion Gap 16 6 - 16 09/20/2025 5:44 AM [facility] BUN/Creatinine Ratio 5(L) 7 - 23 09/20/2025 5:44 AM [facility] Osmolality Calculated 299(H) 275 - 295 mOsm/kg 09/20/2025 5:44 AM [facility] eGFR by CKD-EPI 4(L) >=90 mL/min/1.7 3 m2 09/20/2025 5:44 AM [facility] Comment: Estimated Glomerular Filtration Rate (eGFR) calculated using the CKD-EPI Creatinine Equation (2020), per the National Kidney Foundation and [place] [employer] Neph[employer] recommendations. Estimated Glomerular Filtration Rate (eGFR) calculated using the CKD-EPI Creatinine Equation (2020), per the National Kidney Foundation and [place] [employer] Neph[employer] recommendations. Blood BLOOD SPECIMEN / Unknown Lab Venipuncture / Unknown 09/20/2025 4:12 AM ELECTRICAL FOREMAN 09/20/2025 5:11 AM [facility] us Tae Fisher MD LAB - CHEMISTRY ORDERABLES F inal Result [facility] [address] [place] [address], [facility] [phone] * HEMOGLOBIN A1C (09/20/2025 4:12 AM [facility]) Hemoglobin A1c 5.0 <=5.6 % 09/20/2025 9:16 AM [facility] Estimated Average Glucose 97 mg/dL 09/20/2025 9:16 AM [facility] Comment: HbA1c Interpretation: Normal : < 5.7% Pre-diabetes: 5.7-6.4% Diabetes: Equal to or greater than 6.5% Test results diagnostic of diabetes should be repeated for confirmation. Treatment target values recommended by ADA and other clinical organizations should be used to evaluate metabolic control in patients. Reference: [place] [employer] Association, Standards of Care in Diabetes -2020 In patients 70 years and older consider HbA1c target range of 7.0-7.5% (Reference: Yo Steinberg et al. JAMDA. 2012) The Sebia assay for the measurement of HbA1c is a National Glycohemoglobin Standardization Program (NGSP) certified method. Blood BLOOD SPECIMEN / Unknown Lab Venipuncture / Unknown 09/20/2025 4:12 AM ELECTRICAL FOREMAN 09/20/2025 5:06 AM [facility] us Tae Fisher MD LAB - CHEMISTRY ORDERABLES F inal Result [facility] [address] [place] [address], [place] [phone] * (ABNORMAL) LIPID PROFILE (09/20/2025 4:12 AM ELECTRICAL FOREMAN) Cholesterol Total 232(H) <200 mg/dL 09/20/2025 5:44 AM [facility] HDL 65 >40 mg/dL 09/20/2025 5:44 AM [facility] Comment: ATP III Classification of HDL Cholesterol: <40 mg/dL: Considered a major risk factor. >60 mg/dL: Considered a negative risk factor. LDL Calculated 148(H) <100 mg/dL 09/20/2025 5:44 AM [facility] Comment: ATP III Classification of LDL Cholesterol: <100 mg/dL: Optimal 100 - 129 mg/dL: Near Optimal/Above Optimal 130 - 159 mg/dL: Borderline High 160 - 189 mg/dL: High >190 mg/dL: Very High LDL is calculated using the Friedewald equation. Triglycerides 95 <150 mg/dL 09/20/2025 5:44 AM [facility] Comment: ATP III Classification of Triglycerides: <150 mg/dL: Normal 150 - 199 mg/dL: Borderline High 200 - 400 mg/dL: High >500 mg/dL: Very High Blood BLOOD SPECIMEN / Unknown Lab Venipuncture / Unknown 09/20/2025 4:12 AM ELECTRICAL FOREMAN 09/20/2025 5:11 AM [facility] Tae Fisher MD LAB - CHEMISTRY ORDERABLES F inal Result [facility] [address] [place] [address], [place] [phone] * TROPONIN-I HIGH SENSITIVE BASELINE + 1HR (09/20/2025 4:12 AM ELECTRICAL FOREMAN) Troponin I High Sensitive 13 <=14 ng/L 09/20/2025 5:48 AM [facility] Blood BLOOD SPECIMEN / Unknown Lab Venipuncture / Unknown 09/20/2025 4:12 AM ELECTRICAL FOREMAN 09/20/2025 5:11 AM ELECTRICAL FOREMAN us Tae Fisher MD LAB - CHEMISTRY ORDERABLES F inal Result [facility] [address] [place] [address], [facility] [phone] * CT HEAD WO CONTRAST (09/19/2025 11:52 PM ELECTRICAL FOREMAN) Anatomical Region Laterality Modality Head Computed Tomogra phy 09/19/2025 11:5 6 PM ELECTRICAL FOREMAN Impressions 09/20/2025 12:15 AM ELECTRICAL FOREMAN IMPRESSION: 1.No CT evidence of acute hemorrhage, herniation, or large territorial infarct. 2.Please note CT is insensitive to small infarcts particularly in the posterior fossa, if there is continued clinical concern MRI can be obtained. 3.Encephalomalacia in the left shin radiata is new new since 04/30/2025. Chronic right STAFF EDUCATOR territory infarct. > Dictated by Alberto David MD, (resident engineer). > Dictated by Alberto David MD 09/19/2025 11:56 PM > Dictated by Piped Buttonhole Machine Operator I, Tra uRssell MD have personally reviewed and interpreted this examination/study. > Interpreting Provider: Tra Russell MD on 09/20/2025 12:15 AM Narrative 09/20/2025 12:15 AM ELECTRICAL FOREMAN PROCEDURE: CT HEAD WO CONTRAST, DATE/TIME OF EXAM: 09/19/2025 11:52 PM, LOCATION [facility] INDICATION: I63.9: Ischemic stroke (HCC) G93.40: Acute [...] is seen. Chronic infarct in the right STAFF EDUCATOR territory. Additional encephalomalacia in the left shin [...] CONTRAST, DATE/TIME OF EXAM: 09/19/2025 11:52PM, LOCATION [facility] INDICATION: I63.9: Ischemic stroke (HCC) G93.40: Acute [...] is seen. Chronic infarct in the right STAFF EDUCATOR territory. Additional encephalomalacia in the left shin [...] radiata is new new since04/30/2025. Chronic right STAFF EDUCATOR territory infarct. > Dictated by Alberto David MD, (resident engineer). > Dictated by Alberto David MD 09/19/2025 11:56 PM > Dictated by Piped Buttonhole Machine Operator I, Tra Russell MD have personally reviewed [...] Cherelle Islas DO - 09/30/2025 5:55 PM ELECTRICAL FOREMAN Associated Problem(s): Severe protein-calorie malnutrition (HCC) - Nutrition consulted and followed throughout admission TRICAL FOREMAN * Assessment & Plan Note - Cherelle Islas DO - 09/30/2025 1:23 PM ELECTRICAL FOREMAN Associated Problem(s): History of ischemic right MCA stroke -Initially admitted to stroke team found to have ischemic stroke, continue aspirin 81mg, Brilinta 90 mg started this admission, Lipitor increased from 40 to 80 mg -PT OT recommending SNF TRICAL FOREMAN * Assessment & Plan Note - Cherelle Islas DO - 09/30/2025 1:23 PM ELECTRICAL FOREMAN Associated Problem(s): Ischemic stroke (HCC) -Initially admitted to stroke team found to have ischemic stroke, continue aspirin 81mg, Brilinta 90 mg started this admission, Lipitor increased from 40 to 80 mg -PT OT recommending SNF TRICAL FOREMAN * Assessment & Plan Note - Cherelle Islas DO - 09/30/2025 1:23 PM ELECTRICAL FOREMAN Associated Problem(s): ESRD (end stage renal disease) (HCC) -Nephrology following for maintenance dialysis TRICAL FOREMAN * Assessment & Plan Note - Cherelle Islas DO - 09/30/2025 1:23 PM ELECTRICAL FOREMAN Associated Problem(s): Secondary hyperparathyroidism (HCC) -Nephrology following for maintenance dialysis TRICAL FOREMAN * Assessment & Plan Note - Cherelle Islas DO - 09/30/2025 1:23 PM ELECTRICAL FOREMAN Associated Problem(s): Primary hypertension -Continue Coreg 25 mg twice daily TRICAL FOREMAN * Assessment & Plan Note - Cherelle Islas DO - 09/30/2025 1:23 PM ELECTRICAL FOREMAN Associated Problem(s): Type 2 diabetes mellitus with unspecified complications (HCC) -A1c 4.5 -Discontinue Accu-Cheks and sliding scale insulin, will monitor glucose on daily labs TRICAL FOREMAN * Assessment & Plan Note - Cherelle Islas DO - 09/30/2025 1:23 PM ELECTRICAL FOREMAN Associated Problem(s): Hx of major depression -Continue home Effexor TRICAL FOREMAN * Assessment & Plan Note - Cherelle Islas DO - 09/29/2025 7:58 AM ELECTRICAL FOREMAN Associated Problem(s): History of ischemic right MCA stroke -Initially admitted to stroke team found to have ischemic stroke, continue aspirin 81mg, Brilinta 90 mg started this admission, Lipitor increased from 40 to 80 mg -PT OT recommending SNF TRICAL FOREMAN * Assessment & Plan Note - Cherelle Islas DO - 09/29/2025 7:58 AM ELECTRICAL FOREMAN Associated Problem(s): Ischemic stroke (HCC) -Initially admitted to stroke team found to have ischemic stroke, continue aspirin 81mg, Brilinta 90 mg started this admission, Lipitor increased from 40 to 80 mg -PT OT recommending SNF TRICAL FOREMAN * Assessment & Plan Note - Cherelle Islas DO - 09/29/2025 7:58 AM ELECTRICAL FOREMAN Associated Problem(s): ESRD (end stage renal disease) (HCC) -Nephrology following for maintenance dialysis TRICAL FOREMAN * Assessment & Plan Note - Cherelle Islas DO - 09/29/2025 7:58 AM ELECTRICAL FOREMAN Associated Problem(s): Secondary hyperparathyroidism (HCC) -Nephrology following for maintenance dialysis TRICAL FOREMAN * Assessment & Plan Note - Cherelle Islas DO - 09/29/2025 7:58 AM ELECTRICAL FOREMAN Associated Problem(s): Primary hypertension -Continue Coreg 25 mg twice daily TRICAL FOREMAN * Assessment & Plan Note - Cherelle Islas DO - 09/29/2025 7:58 AM ELECTRICAL FOREMAN Associated Problem(s): Type 2 diabetes mellitus with unspecified complications (HCC) -A1c 4.5 -Discontinue Accu-Cheks and sliding scale insulin, will monitor glucose on daily labs TRICAL FOREMAN * Assessment & Plan Note - Cherelle Islas DO - 09/29/2025 7:58 AM ELECTRICAL FOREMAN Associated Problem(s): Hx of major depression -Continue home Effexor TRICAL FOREMAN * Assessment & Plan Note - Cherelle Islsa DO - 09/28/2025 10:59 AM ELECTRICAL FOREMAN Associated Problem(s): History of ischemic right MCA stroke -Initially admitted to stroke team found to have ischemic stroke, continue aspirin 81mg, Brilinta 90 mg started this admission, Lipitor increased from 40 to 80 mg -PT OT recommending SNF TRICAL FOREMAN TRICAL FOREMAN * Assessment & Plan Note - Cherelle Islas DO - 09/28/2025 10:59 AM ELECTRICAL FOREMAN Associated Problem(s): Ischemic stroke (HCC) -Initially admitted to stroke team found to have ischemic stroke, continue aspirin 81mg, Brilinta 90 mg started this admission, Lipitor increased from 40 to 80 mg -PT OT recommending SNF TRICAL FOREMAN TRICAL FOREMAN * Assessment & Plan Note - Cherelle Islas DO - 09/28/2025 10:59 AM ELECTRICAL FOREMAN Associated Problem(s): ESRD (end stage renal disease) (HCC) -Nephrology following for maintenance dialysis TRICAL FOREMAN TRICAL FOREMAN * Assessment & Plan Note - Cherelle Islas DO - 09/28/2025 10:59 AM ELECTRICAL FOREMAN Associated Problem(s): Secondary hyperparathyroidism (HCC) -Nephrology following for maintenance dialysis TRICAL FOREMAN TRICAL FOREMAN * Assessment & Plan Note - Cherelle Islas DO - 09/28/2025 10:59 AM ELECTRICAL FOREMAN Associated Problem(s): Primary hypertension -Continue Coreg 25 mg twice daily TRICAL FOREMAN TRICAL FOREMAN * Assessment & Plan Note - Cherelle Islas DO - 09/28/2025 8:21 AM ELECTRICAL FOREMAN Associated Problem(s): Type 2 diabetes mellitus with unspecified complications (HCC) -A1c 4.5 -Discontinue Accu-Cheks and sliding scale insulin, will monitor glucose on daily labs TRICAL FOREMAN * Assessment & Plan Note - Cherelle Islas DO - 09/28/2025 8:21 AM ELECTRICAL FOREMAN Associated Problem(s): Hx of major depression -Continue home Effexor TRICAL FOREMAN * Assessment & Plan Note - Cherelle Islas DO - 09/27/2025 2:10 PM ELECTRICAL FOREMAN Associated Problem(s): Hx of major depression -Continue home Effexor TRICAL FOREMAN * Assessment & Plan Note - Cherelle Islas DO - 09/27/2025 2:10 PM ELECTRICAL FOREMAN Associated Problem(s): History of ischemic right MCA stroke - Initially admitted to stroke team found to have ischemic stroke, continue aspirin 81mg, Brilinta 90 mg started this admission, Lipitor increased from 40 to 80 mg -PT OT recommending SNF TRICAL FOREMAN * Assessment & Plan Note - Cherelle Islas DO - 09/27/2025 2:10 PM ELECTRICAL FOREMAN Associated Problem(s): Ischemic stroke (HCC) - Initially admitted to stroke team found to have ischemic stroke, continue aspirin 81mg, Brilinta 90 mg started this admission, Lipitor increased from 40 to 80 mg -PT OT recommending SNF TRICAL FOREMAN * Assessment & Plan Note - Cherelle Islas DO - 09/27/2025 2:10 PM ELECTRICAL FOREMAN Associated Problem(s): ESRD (end stage renal disease) (HCC) -Nephrology following for maintenance dialysis TRICAL FOREMAN * Assessment & Plan Note - Cherelle Islas DO - 09/27/2025 2:10 PM ELECTRICAL FOREMAN Associated Problem(s): Secondary hyperparathyroidism (HCC) -Nephrology following for maintenance dialysis TRICAL FOREMAN * Assessment & Plan Note - Cherelle Islas DO - 09/27/2025 2:10 PM ELECTRICAL FOREMAN Associated Problem(s): Primary hypertension - Continue Coreg 25 mg twice daily TRICAL FOREMAN * Assessment & Plan Note - Cherelle Islas DO - 09/27/2025 2:10 PM [employer]LECTRICAL FOREMAN Associated Problem(s): Type 2 diabetes mellitus with unspecified complications (HCC) -A1c 4.5 -Discontinue Accu-Cheks and sliding scale insulin, will monitor glucose on daily labs TRICAL FOREMAN * Assessment & Plan Note - Cherelle Islas DO - 09/26/2025 8:35 AM ELECTRICAL FOREMAN Associated Problem(s): History of ischemic right MCA stroke - Initially admitted to stroke team found to have ischemic stroke, continue aspirin 81mg, Brilinta 90 mg started this admission, Lipitor increased from 40 to 80 mg -PT OT recommending SNF TRICAL FOREMAN * Assessment & Plan Note - Cherelle Islas DO - 09/26/2025 8:35 AM ELECTRICAL FOREMAN Associated Problem(s): Ischemic stroke (HCC) - Initially admitted to stroke team found to have ischemic stroke, continue aspirin 81mg, Brilinta 90 mg started this admission, Lipitor increased from 40 to 80 mg -PT OT recommending SNF TRICAL FOREMAN * Assessment & Plan Note - Cherelle Islas DO - 09/26/2025 8:35 AM ELECTRICAL FOREMAN Associated Problem(s): ESRD (end stage renal disease) (HCC) -Nephrology following for maintenance dialysis TRICAL FOREMAN * Assessment & Plan Note - Cherelle Islas DO - 09/26/2025 8:35 AM ELECTRICAL FOREMAN Associated Problem(s): Secondary hyperparathyroidism (HCC) -Nephrology following for maintenance dialysis TRICAL FOREMAN * Assessment & Plan Note - Cherelle Islas DO - 09/26/2025 8:35 AM ELECTRICAL FOREMAN Associated Problem(s): Primary hypertension - Continue Coreg 25 mg twice daily TRICAL FOREMAN * Assessment & Plan Note - Cherelle Islas DO - 09/26/2025 8:35 AM ELECTRICAL [employer]EMAN Associated Problem(s): Type 2 diabetes mellitus with unspecified complications (HCC) -A1c 4.5 -Discontinue Accu-Cheks and sliding scale insulin, will monitor glucose on daily labs TRICAL FOREMAN * Assessment & Plan Note - Cherelle Islas DO - 09/26/2025 8:35 AM ELECTRICAL FOREMAN Associated Problem(s): Hx of major depression -Continue home Effexor TRICAL FOREMAN * Assessment & Plan Note - Cherelle Islas DO - 09/25/2025 3:03 PM ELECTRICAL [employer]EMAN Associated Problem(s): ESRD (end stage renal disease) (HCC) -Nephrology following for maintenance dialysis TRICAL FOREMAN TRICAL FOREMAN * Assessment & Plan Note - Cherelle Islas DO - 09/25/2025 3:03 PM ELECTRICAL [employer]EMAN Associated Problem(s): Type 2 diabetes mellitus with unspecified complications (HCC) -A1c 4.5 -Discontinue Accu-Cheks and sliding scale insulin, will monitor glucose on daily labs TRICAL FOREMAN TRICAL FOREMAN * Assessment & Plan Note - Cherelle Islas DO - 09/25/2025 3:03 PM ELECTRICAL [employer]EMAN Associated Problem(s): Ischemic stroke (HCC) - Initially admitted to stroke team found to have ischemic stroke, continue aspirin 81mg, Brilinta 90 mg started this admission, Lipitor increased from 40 to 80 mg -PT OT recommending SNF TRICAL FOREMAN TRICAL FOREMAN * Assessment & Plan Note - Cherelle Islas DO - 09/25/2025 3:03 PM ELECTRICAL [employer]EMAN Associated Problem(s): History of ischemic right MCA stroke - Initially admitted to stroke team found to have ischemic stroke, continue aspirin 81mg, Brilinta 90 mg started this admission, Lipitor increased from 40 to 80 mg -PT OT recommending SNF TRICAL FOREMAN * Assessment & Plan Note - Cherelle Isals DO - 09/25/2025 3:03 PM ELECTRICAL [employer]EMAN Associated Problem(s): Secondary hyperparathyroidism (HCC) -Nephrology following for maintenance dialysis TRICAL FOREMAN * Assessment & Plan Note - Cherelle Islas DO - 09/25/2025 3:03 PM ELECTRICAL FOREMAN Associated Problem(s): Primary hypertension - Continue Coreg 25 mg twice daily TRICAL FOREMAN * Assessment & Plan Note - Cherelle Islas DO - 09/25/2025 3:03 PM ELECTRICAL [employer]EMAN Associated Problem(s): Hx of major depression -Continue home Effexor TRICAL FOREMAN * Assessment & Plan Note - Velma Salcedo MD - 09/24/2025 5:48 PM ELECTRICAL FOREMAN Associated Problem(s): History of ischemic right MCA stroke -see above TRICAL FOREMAN * Assessment & Plan Note - Velma Salcedo MD - 09/24/2025 5:48 PM ELECTRICAL FOREMAN Associated Problem(s): Ischemic stroke (HCC) -see above TRICAL FOREMAN * Assessment & Plan Note - Velma Salcedo MD - 09/24/2025 5:48 PM ELECTRICAL FOREMAN Associated Problem(s): Primary hypertension -see above TRICAL FOREMAN * Assessment & Plan Note - Velma Salcedo MD - 09/24/2025 5:48 PM ELECTRICAL FOREMAN Associated Problem(s): ESRD (end stage renal disease) [...] 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 TRICAL FOREMAN * Assessment & Plan Note - Velma Salcedo MD - 09/24/2025 5:48 PM ELECTRICAL FOREMAN Associated Problem(s): Secondary hyperparathyroidism (HCC) ESRD on HD - hemodialysis catheter placement confirmed with CXR 09/20 - dialysis schedule MWF - last dialysis 09/21 Hyperparathyroidism - Vitamin D low (19.9) -DC'd vitamin D supplementation per nephrology due to hypercalcemia, nephrology recommending SestaMIBI scan -Started on send Salit 60 mg daily -Recommending ENT consult for possible 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 TRICAL FOREMAN * Assessment & Plan Note - Velma Salcedo MD - 09/24/2025 5:48 PM ELECTRICAL FOREMAN Associated Problem(s): Type 2 diabetes mellitus with unspecified complications (HCC) On SSI TRICAL FOREMAN * Assessment & Plan Note - Velma Salcedo MD - 09/24/2025 5:48 PM ELECTRICAL FOREMAN Associated Problem(s): Hx of major depression -Continue home venlafaxine TRICAL FOREMAN * Assessment & Plan Note - Velma Salcedo MD - 09/23/2025 5:13 PM ELECTRICAL FOREMAN Associated Problem(s): History of ischemic right MCA stroke -see above TRICAL FOREMAN * Assessment & Plan Note - Velma Salcedo MD - 09/23/2025 5:13 PM ELECTRICAL FOREMAN Associated Problem(s): Ischemic stroke (HCC) -see above TRICAL FOREMAN * Assessment & Plan Note - Velma Salcedo MD - 09/23/2025 5:13 PM ELECTRICAL FOREMAN Associated Problem(s): Primary hypertension -see above TRICAL FOREMAN * Assessment & Plan Note - Velma Salcedo MD - 09/23/2025 5:13 PM ELECTRICAL FOREMAN Associated Problem(s): ESRD (end stage renal disease) [...] 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 TRICAL FOREMAN * Assessment & Plan Note - Velma Salcedo MD - 09/23/2025 5:13 PM ELECTRICAL FOREMAN Associated Problem(s): Secondary hyperparathyroidism (HCC) ESRD on HD - hemodialysis catheter placement confirmed with CXR 09/20 - dialysis schedule MWF - last dialysis 09/21 Hyperparathyroidism - Vitamin D low (19.9) -DC'd vitamin D supplementation per nephrology due to hypercalcemia, nephrology recommending SestaMIBI scan -Started on send Salit 60 mg daily -Recommending ENT consult for possible 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 TRICAL FOREMAN * Assessment & Plan Note - Velma Salcedo MD - 09/23/2025 5:13 PM ELECTRICAL FOREMAN Associated Problem(s): Type 2 diabetes mellitus with unspecified complications (HCC) On SSI TRICAL FOREMAN * Assessment & Plan Note - Velma Salcedo MD - 09/23/2025 5:13 PM ELECTRICAL FOREMAN Associated Problem(s): Hx of major depression -Continue home venlafaxine TRICAL FOREMAN * Assessment & Plan Note - Kimberley Mukherjee MD - 09/22/2025 8:55 PM ELECTRICAL FOREMAN Associated Problem(s): ESRD (end stage renal disease) [...] 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 TRICAL FOREMAN TRICAL FOREMAN * Assessment & Plan Note - Kimberley Mukherjee MD - 09/22/2025 8:55 PM ELECTRICAL FOREMAN Associated Problem(s): Secondary hyperparathyroidism (HCC) ESRD on HD - hemodialysis catheter placement confirmed with CXR 09/20 - dialysis schedule MWF - last dialysis 09/21 Hyperparathyroidism - Vitamin D low (19.9) -DC'd vitamin D supplementation per nephrology due to hypercalcemia, nephrology recommending SestaMIBI scan -Started on send Salit 60 mg daily -Recommending ENT consult for possible 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 TRICAL FOREMAN TRICAL FOREMAN * Assessment & Plan Note - Kimberley Mukherjee MD - 09/22/2025 7:39 AM ELECTRICAL FOREMAN Associated Problem(s): History of ischemic right MCA stroke -see above TRICAL FOREMAN * Assessment & Plan Note - Kimberley Mukherjee MD - 09/22/2025 7:39 AM ELECTRICAL FOREMAN Associated Problem(s): Ischemic stroke (HCC) -see above TRICAL FOREMAN * Assessment & Plan Note - Kimberley Mukherjee MD - 09/22/2025 7:39 AM ELECTRICAL FOREMAN Associated Problem(s): Primary hypertension -see above TRICAL FOREMAN * Assessment & Plan Note - Kimberley Mukherjee MD - 09/22/2025 7:39 AM ELECTRICAL FOREMAN Associated Problem(s): Type 2 diabetes mellitus with unspecified complications (HCC) On SSI TRICAL FOREMAN * Assessment & Plan Note - Kimberley Mukherjee MD - 09/22/2025 7:39 AM ELECTRICAL FOREMAN Associated Problem(s): Hx of major depression -Continue home venlafaxine TRICAL FOREMAN * Assessment & Plan Note - Kimberley Mukherjee MD - 09/21/2025 11:16 AM ELECTRICAL FOREMAN Associated Problem(s): Hx of major depression -Continue home venlafaxine TRICAL FOREMAN TRICAL FOREMAN TRICAL FOREMAN * Assessment & Plan Note - Kimberley Mukherjee MD - 09/21/2025 9:54 AM ELECTRICAL FOREMAN Associated Problem(s): History of ischemic right MCA stroke -see above TRICAL FOREMAN TRICAL FOREMAN TRICAL FOREMAN * Assessment & Plan Note - Kimberley Mukherjee MD - 09/21/2025 9:54 AM ELECTRICAL FOREMAN Associated Problem(s): Ischemic stroke (HCC) -see above TRICAL FOREMAN TRICAL FOREMAN TRICAL FOREMAN * Assessment & Plan Note - Kimberley Mukherjee MD - 09/21/2025 9:54 AM ELECTRICAL FOREMAN Associated Problem(s): Primary hypertension -see above TRICAL FOREMAN TRICAL FOREMAN TRICAL FOREMAN * Assessment & Plan Note - Kimberley Mukherjee MD - 09/21/2025 9:54 AM ELECTRICAL FOREMAN Associated Problem(s): ESRD (end stage renal disease) (HCC) ESRD on HD - hemodialysis catheter placement confirmed with CXR 09/20 - dialysis schedule MWF - per nephrology no dialysis F 09/20 Hyperparathyroidism - Nephrology recommending PTHrp, Vitamin D, Ionized Calcium (ordered) - Vitamin D low (19.9) - supplement D3 5000 units TRICAL FOREMAN * Assessment & Plan Note - Kimberley Mukherjee MD - 09/21/2025 9:54 AM ELECTRICAL FOREMAN Associated Problem(s): Secondary hyperparathyroidism (HCC) ESRD on HD - hemodialysis catheter placement confirmed with CXR 09/20 - dialysis schedule MWF - per nephrology no dialysis F 09/20 Hyperparathyroidism - Nephrology recommending PTHrp, Vitamin D, Ionized Calcium (ordered) - Vitamin D low (19.9) - supplement D3 5000 units TRICAL FOREMAN * Assessment & Plan Note - Kimberley Mukherjee MD - 09/21/2025 9:54 AM ELECTRICAL FOREMAN Associated Problem(s): Type 2 diabetes mellitus with unspecified complications (HCC) On SSI TRICAL FOREMAN * Assessment & Plan Note - Kimberley Mukherjee MD - 09/20/2025 10:00 AM ELECTRICAL FOREMAN Associated Problem(s): ESRD (end stage renal disease) (HCC) -HD per nephrology TRICAL FOREMAN TRICAL FOREMAN TRICAL FOREMAN * Assessment & Plan Note - Kimberley Mukherjee MD - 09/20/2025 10:00 AM ELECTRICAL FOREMAN Associated Problem(s): Secondary hyperparathyroidism (HCC) -HD per nephrology TRICAL FOREMAN * Assessment & Plan Note - Nasreen Avendano - 09/20/2025 9:27 AM CSTAssociated Problem(s): History of ischemic right MCA stroke TRICAL FOREMAN * Assessment & Plan Note - Nasreen Avendano - 09/20/2025 9:27 AM CSTAssociated Problem(s): Ischemic stroke (HCC) TRICAL FOREMAN * Assessment & Plan Note - Nasreen Avendano - 09/20/2025 9:27 AM CSTAssociated Problem(s): Primary hypertension TRICAL FOREMAN * Assessment & Plan Note - Nasreen Avendano - 09/20/2025 9:27 AM CSTAssociated Problem(s): ESRD (end stage renal disease) (HCC) TRICAL FOREMAN * Assessment & Plan Note - Nasreen Avendano - 09/20/2025 9:27 AM CSTAssociated Problem(s): Type 2 diabetes mellitus with unspecified complications (HCC) TRICAL FOREMAN * Assessment & Plan Note - Kimberley Mukherjee MD - 09/20/2025 8:16 AM ELECTRICAL FOREMAN Associated Problem(s): Type 2 diabetes mellitus with unspecified complications (HCC) On SSI TRICAL FOREMAN TRICAL FOREMAN * Assessment & Plan Note - Kimberley Mukherjee MD - 09/20/2025 8:16 AM ELECTRICAL FOREMAN Associated Problem(s): Ischemic stroke (HCC) -see above TRICAL FOREMAN TRICAL FOREMAN * Assessment & Plan Note - Kimberley Mukherjee MD - 09/20/2025 8:16 AM ELECTRICAL FOREMAN Associated Problem(s): History of ischemic right MCA stroke -see above TRICAL FOREMAN * Assessment & Plan Note - Kimberley Mukherjee MD - 09/20/2025 8:16 AM ELECTRICAL FOREMAN Associated Problem(s): Primary hypertension -see above TRICAL FOREMAN * Assessment & Plan Note - Kimberley Mukherjee MD - 09/20/2025 8:16 AM ELECTRICAL FOREMAN Associated Problem(s): Hx of major depression -Continue home venlafaxine TRICAL FOREMAN documented in this encounter Administered Medications Inactive Administered Medications - up to 3 most recent administrations Medication Order MAR Action Action Date Dose Rate Site 0.9% NaCl infusion Intravenous, CONTINUOUS PRN, Starting on Tue09/20/25 at 1107, Until Tue09/20/25 at 1355, Intra-op $ New Bag/Syringe 09/20/2025 11:07 AM ELECTRICAL FOREMAN 500 mL 0.9% NaCl injection 1-10 mL [...] 8 hours. $ Given 09/30/2025 4:59 PM ELECTRICAL FOREMAN 3 mL $ Given 09/27/2025 5:56 AM ELECTRICAL FOREMAN 3 mL $ Given 09/26/2025 9:40 PM ELECTRICAL FOREMAN 3 mL acetaminophen (Tylenol) tablet 650 mg [...] Until Discontinued $ Given 09/21/2025 8:13 AM ELECTRICAL FOREMAN 81 mg NG Tube aspirin chew tablet 81 mg 81 mg, Oral, DAILY, First dose (after last modification) on Tue09/22/25 at 0900, Until Discontinued $ Given 09/30/2025 10:47 AM ELECTRICAL FOREMAN 81 mg $ Given 09/29/2025 11:48 AM ELECTRICAL FOREMAN 81 mg $ Given 09/28/2025 7:57 AM ELECTRICAL FOREMAN 81 mg aspirin suppository 300 mg 300 mg, Rectal, DAILY, First dose on Tue09/20/25 at 0930, Until Discontinued $ Given 09/20/2025 2:49 PM ELECTRICAL FOREMAN 300 mg Butto ck aspirin suppository 300 mg 300 mg, Rectal, DAILY, First dose (after last modification) on 09/22/25 at 0900, Until Discontinued atorvastatin (Lipitor) tablet 80 mg 80 mg, Oral, AT BEDTIME, First dose (after last modification) on 09/21/25 at 2100, Until Discontinued $ Given 09/30/2025 8:52 PM ELECTRICAL FOREMAN 80 mg $ Given 09/29/2025 9:24 PM ELECTRICAL FOREMAN 80 mg $ Given 09/28/2025 9:22 PM ELECTRICAL FOREMAN 80 mg carvedilol (Coreg) tablet 12.5 mg 12.5 mg, Enteral Tube, 2 TIMES DAILY WITH MEALS, First dose (after last modification) on 09/21/25 at 0800, Until Discontinued, Take with food $ Given 09/21/2025 8:13 AM ELECTRICAL FOREMAN 12.5 mg NG Tu be carvedilol (Coreg) tablet 25 mg 25 mg, Oral, 2 TIMES DAILY WITH MEALS, First dose (after last modification) on 09/21/25 at 1800, Until Discontinued, Take with food $ Given 09/30/2025 10:49 AM ELECTRICAL FOREMAN 25 mg $ Given 09/29/2025 5:47 PM ELECTRICAL FOREMAN 25 mg $ Given 09/28/2025 5:41 PM ELECTRICAL FOREMAN 25 mg cinacalcet (Sensipar) tablet 60 mg 60 mg, Oral, DAILY, First dose on 09/22/25 at 1200, Until Discontinued, Do not crush, chew, or cut in half., Medication is restricted to nephrology. Has nephrology been consulted? YesIndications:Hypercalcemia,Secondary Hyperparathyroidism $ Given 09/23/2025 12:32 PM ELECTRICAL FOREMAN 60 mg $ Given 09/22/2025 12:18 PM ELECTRICAL FOREMAN 60 mg cinacalcet (Sensipar) tablet 60 mg 60 mg, Oral, DAILY, First dose (after last modification) on Tue09/25/25 at 0900, Until Discontinued, Do not crush, chew, or cut in half., Medication is restricted to nephrology. Has nephrology been consulted? YesIndications:Hypercalcemia,Secondary Hyperparathyroidism $ Given 09/30/2025 10:47 AM ELECTRICAL FOREMAN 60 mg $ Given 09/29/2025 11:48 AM ELECTRICAL FOREMAN 60 mg $ Given 09/28/2025 7:57 AM ELECTRICAL FOREMAN 60 mg dextrose IV 12.5 g 12.5 [...] HYPOGLYCEMIC EVENT. $ Given 09/20/2025 4:02 PM ELECTRICAL FOREMAN 12.5 g dextrose IV 25 g 25 [...] 30min before LP, 1 dose, Starting on Tue09/22/25 at 1032, Until Tue09/22/25 at 1215 $ Given 09/22/2025 12:15 PM ELECTRICAL FOREMAN 2.5 mg fentaNYL (PF) (Sublimaze) injection ONCE PRN, Starting on Tue09/20/25 at 1025, Until Tue09/20/25 at 1355, Intra-op $ Given 09/20/2025 10:43 AM ELECTRICAL FOREMAN 50 mcg $ Given 09/20/2025 10:25 AM ELECTRICAL FOREMAN 50 mcg glucose (Diabetic Use) oral gel Oral, PRN, other, Bedside Glucose less than 70 mg/dL, Starting on [facility] 09/19/25 at 2250, Until Tue09/30/25 at 2248, [...] HYPOGLYCEMIC EVENT. $ Given 09/22/2025 9:20 PM ELECTRICAL FOREMAN 15 g heparin 3,000 Units, nitroGLYCERIN 200 mcg/ml in dextrose 5 % 300 mcg, verapamil (Isoptin) 300 mcg 4.6 mL ONCE PRN, Starting on Tue09/20/25 at 1030, Until Tue09/20/25 at 1355, Intra-op $ Given 09/20/2025 10:30 AM ELECTRICAL FOREMAN 1 mL heparin injection 1,000 Units 1,000 Units, Intracatheter, POST-DIALYSIS MULTIPLE, Starting on Tue09/23/25 at 0914, Until Tue09/30/25 at 2248Indications:Dialysis Associated Renal Failure $ Given 09/29/2025 10:51 AM ELECTRICAL FOREMAN 1,000 Units $ Given 09/27/2025 11:23 AM ELECTRICAL FOREMAN 4,100 Units $ Given 09/23/2025 11:30 AM ELECTRICAL FOREMAN 4,100 Units heparin injection 5,000 Units 5,000 Units, Subcutaneous, EVERY 8 HOURS, First dose on Tue09/20/25 at 0845, Until Discontinued $ Given 09/30/2025 4:59 PM ELECTRICAL FOREMAN 5,000 Units Abd Left Lower Quadrant $ Given 09/30/2025 10:47 AM ELECTRICAL FOREMAN 5,000 Units Abd Right Lower Quadrant $ Given 09/29/2025 9:24 PM ELECTRICAL FOREMAN 5,000 Units A bdominal Tissue heparinized saline 2 units/mL infusion Other, CONTINUOUS PRN, Starting on Tue09/20/25 at 0949, Until Tue09/20/25 at 1355, Intra-op $ New Bag/Syringe 09/20/2025 9:49 AM ELECTRICAL FOREMAN 1,500 mL insulin aspart (NovoLOG) pen 0-12 [...] Disposal required. $ Given 09/25/2025 12:31 PM ELECTRICAL FOREMAN 2 Units Abd Right Lower Quadrant $ Given 09/24/2025 12:40 PM ELECTRICAL FOREMAN 4 Units A bdominal Tissue $ Given 09/22/2025 5:58 PM ELECTRICAL FOREMAN 6 Units Ab d Left Lower Quadrant iopamidol (Isovue 300) 61 % contrast ONCE PRN, Starting on Tue09/20/25 at 0950, Until Tue09/20/25 at 1355, Intra-op $ Given 09/20/2025 11:00 AM ELECTRICAL FOREMAN 100 mL $ Given 09/20/2025 9:50 AM ELECTRICAL FOREMAN 130 mL lidocaine (Xylocaine) 1 % injection Subcutaneous, ONCE PRN, Starting on Tue09/20/25 at 1027, Until Tue09/20/25 at 1355, Intra-op $ Given 09/20/2025 10:27 AM ELECTRICAL FOREMAN 8 mL Right Arm midazolam (Versed) injection Intravenous, ONCE PRN, Starting on Tue09/20/25 at 1043, Until Tue09/20/25 at 1355, Intra-op $ Given 09/20/2025 10:43 AM ELECTRICAL FOREMAN 1 mg ondansetron (disintegrating) (Zofran ODT) tablet [...] Until Discontinued $ Given 09/21/2025 8:13 AM ELECTRICAL FOREMAN 1 tablet NG Tube senna-docusate (Senokot-S) tablet 1 tablet 1 tablet, Oral, DAILY, First dose (after last modification) on 09/22/25 at 0900, Until Discontinued $ Given 09/30/2025 10:47 AM ELECTRICAL FOREMAN 1 tablet $ Given 09/29/2025 11:49 AM ELECTRICAL FOREMAN 1 tablet $ Given 09/28/2025 7:57 AM ELECTRICAL FOREMAN 1 tablet ticagrelor (Brilinta) tablet 90 mg 90 mg, Oral, 2 TIMES DAILY, First dose on 09/22/25 at 1315, Until Discontinued $ Given 09/30/2025 8:51 PM ELECTRICAL FOREMAN 90 mg $ Given 09/30/2025 10:47 AM ELECTRICAL FOREMAN 90 mg $ Given 09/29/2025 9:24 PM ELECTRICAL FOREMAN 90 mg venlafaxine XR 24hr (Effexor XR) capsule 150 mg 150 mg, Oral, DAILY WITH DINNER, First dose (after last reorder) on 09/21/25 at 1800, Until Discontinued $ Given 09/30/2025 6:32 PM ELECTRICAL FOREMAN 150 mg $ Given 09/29/2025 5:47 PM ELECTRICAL FOREMAN 150 mg $ Given 09/28/2025 5:41 PM ELECTRICAL FOREMAN 150 mg vitamin D3 (Cholecalciferol) tablet 5,000 Units 5,000 Units, Oral, DAILY, First dose (after last modification) on 09/22/25 at 0900, Until Discontinued, 5000 units = 125 mcg $ Given 09/22/2025 9:03 AM ELECTRICAL FOREMAN 5,000 Units documented in this encounter Active and Recently Administered Medications Times are shown in ELECTRICAL FOREMAN. Scheduled Medication Order 09/28/2025 09/29/2025 09/30/2025 0.9% [...] unit) 1047 ($ Given - Provider: Estella Newsome RN) aspirin suppository 300 mg(Linked Group 2) 300 mg, Rectal, DAILY, First dose (after last modification) on 09/22/25 at 0900, Until Discontinued 0757 (See Alternative [...] Refused-Patient)1321 ($ Given - Provider: Lois Ruiz RN)2121 ($ Given - Provider: Gilmar Carr RN) 0533 ($ Given - Provider: Gilmar Carr RN)1345 ($ Given - Provider: Hillary Montalvo, URBAN)2123 ($ Given - Provider: Queta Renee RN) 1047 ($ Given - Provider: Estella Newsome RN)165 ($ Given - Provider: Estella Newsome RN) senna-docusate (Senokot-S) tablet 1 tablet 1 tablet, Oral, DAILY, First dose (after last modification) on 09/22/25 at 0900, Until Discontinued 075 ($ Given - Provider: Lois Ruiz RN) 1149 ($ Given - Provider: Hillary Montalvo RN) 104 ($ Given - Provider: Estella Newsome RN) ticagrelor (Brilinta) tablet 90 mg 90 mg, Oral, 2 TIMES DAILY, First dose on 09/22/25 at 1315, Until Discontinued 075 ($ Given - Provider: Lois Ruiz RN)2121 ($ Given - Provider: Gilmar Carr RN) 114 ($ Given - Provider: Hillary Montavlo RN - Comment: pt back from dialysis)2123 ($ Given - Provider: Queta Renee, URBAN) 1047 ($ Given - Provider: Estella Newsome RN)2050 ($ Given - Provider: Gilmar Carr RN) venlafaxine XR 24hr (Effexor XR) capsule 150 mg 150 mg, Oral, DAILY WITH DINNER, First dose (after last reorder) on 09/21/25 at 1800, Until Discontinued 1740 ($ Given - Provider: Lois Ruiz RN) 174 ($ Given - Provider: Hillary Montalvo, URBAN) 183 ($ Given - Provider: Estella Newsome RN) PRN Medication Order 09/28/2025 09/29/2025 09/30/2025 0.9% NaCl injection 1-10 mL(Linked Group 1) 1-10 mL, Intracatheter, PRN, other, peripheral line flush, Starting on [place] 09/19/25 at 2220, Until Tue09/30/25 at 2248, Flush peripheral IV catheter with 1-10 mL of normal saline before and after medications and prn to clear blood from the line or to verify patency. acetaminophen (Tylenol) tablet 650 mg 650 mg, Oral, EVERY 6 HOURS PRN, mild pain, Starting on [place] 09/19/25 at 2222, Until Tue09/30/25 at 2248, Patient preference for lesser PRN [...] AND MAINTAIN (CANCELED) Routine, CONTINUOUS, Starting on [place] 09/19/25 at 2230, Until Specified, New collection And [...] Starting on [place] 09/19/25 at 2220, Until Tue09/30/25 at 2248, Flush peripheral IV catheter with 1-10 mL of normal saline before and after medications and prn to clear blood from the line or to verify patency. Group 2: aspirin chew tablet 81 mgJump to med 81 mg, Oral, DAILY, First dose (after last modification) on [place] 09/22/25 at 0900, Until Discontinued Or aspirin suppository 300 mgJump to med 300 mg, Rectal, DAILY, First dose (after last modification) on [place] 09/22/25 at 0900, Until Discontinued Group 3: dextrose [...] 09/19/25 at 2222, Until 09/30/25 at 2248, Dissolved orally on tongue Or ondansetron (Zofran) injection 4 mgJump to med 4 mg, Intravenous, EVERY 6 HOURS PRN, nausea/vomiting, Starting on [place] 09/19/25 at 2222, Until 09/30/25 at 2248, Administer IV if patient is NPO, actively vomiting, or unable to swallow. documented in this encounter Care Teams Resolution Specialist Relationship Specialty Start Date End Date Monster Garza MD [address] [id number] PCP - General 12/30/20 documented as of this encounter
[2025-10-01] VITALS (19 sets, daily range): BP systolic 84–110; BP diastolic 54–70; PULSE 105–117; RESP 11–20; TEMP 36.6; O2SAT 97–100
--- NOTE | ~2025-10-01 | CT_ITS ---
CT HEAD NON-CONTRAST Clinical History: ams Comparison: 09/10/2025 Technique: Unenhanced axial images skull base to vertex Coronal, sagittal reformats CT images acquired with automatic exposure control for dose reduction DLP: 530 mGy-cm Findings: Chronic encephalomalacia left frontal and right parietal lobes. Chronic white matter microvascular ischemic changes. Sulci, ventricles: Unremarkable. No intracerebral hemorrhage. No evidence acute territorial infarct. No mass effect, midline shift. Bony calvarium intact. Visualized paranasal sinuses: Clear. Mastoid air cells: Clear. IMPRESSION: 1. No acute intracranial findings. Reviewed, dictated and finalized at location R. [employer] OPERATOR
--- NOTE | ~2025-10-01 | CT_ITS ---
EXAMINATION: CTA chest PE abdomen pel DATE: 10/02/2025 02:33 INDICATION: Sepsis. TECHNIQUE: Computed tomography angiography (CTA) of the chest was performed with 100 mL Omnipaque-350 intravenous contrast timed to evaluate the pulmonary arteries. Coronal maximum intensity projection 3D-reconstructions were created by the technologist. Computed tomography (CT) of the abdomen and pelvis was performed with intravenous contrast. Automated exposure control and iterative reconstruction technique were employed. The dose-length product was 1123.44 mGy-cm. COMPARISON: CT abdomen 07/21/2005 FINDINGS: CTA chest: There is no pneumonia or pleural effusion. The thyroid is enlarged. The heart size is normal. There are coronary artery calcifications. There is a small pericardial effusion. There is no pulmonary embolus. 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 CT abdomen and pelvis: The liver, gallbladder, spleen, pancreas, and adrenal glands are normal. There is moderate atrophy of the kidneys. There are fibroids in the uterus measuring up to 3.5 cm. There is diffuse colon wall thickening, consistent with colitis. The appendix is normal. There are no pathologically enlarged lymph nodes. There is no free intraperitoneal fluid. There are subcutaneous injection sites in anterior abdominal wall. There are erosions of the sacroiliac joints, consistent with secondary hyperparathyroidism. 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 IMPRESSION: 1. No pulmonary embolus. 2. Small pericardial effusion. 3. Pancolitis. Reviewed, dictated and finalized at location E. R GRINDER
--- NOTE | 2025-10-01 18:53 | ECG_ITS ---
Test Date: 2025-10-01 19:08:27 Measurements Intervals [place] Rate: 107 P: 60 SD: 179 QRS: 22 QRSD: 93 T: 149 QT: 338 QTc: 453 Interpretive Statements SINUS TACHYCARDIA ST-T WAVE ABNORMALITY IN ANTEROLAT/HIGH LAT LEADS- CONSIDER ISCHEMIA BASELINE ARTIFACT- I, III, AVL, V4 ABNORMAL ECG Compared to ECG 09/16/2025 15:00:36 Possible ischemia now present Sinus rhythm no longer present Electronically Signed On 10-01-2025 20:59:28 DROP CLIPPER by Chuck Nava D.O.
--- OUTSIDE RECORDS SUMMARY | 2025-10-01 21:21 | XMS_ITS | Clinical Summary ---
Author Organization [facility] Care Team Providers Care Dialysis Rn Name Role Phone Unavailable Primary Care Provider Unavailabl e Social History Tobacco Use Types Packs/Day Years Used Date Smoking Tobacco: Never Assessed Comments Unknown Sex and Gender Information Value Date Recorded Sex Assigned at Not on file Legal Sex Female 3:08 PM [employer] Gender Identity Not on file Sexual Orientation [...]
--- OUTSIDE RECORDS SUMMARY | 2025-10-01 21:21 | XMS_ITS | Clinical Summary ---
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 This disclosure is being madepursuant to the Care Everywhere program and may not contain all information available regarding this patient. Last updated 18.[facility] [employer] Allergies Active Allergy Reactions Criticality Noted Date Comments Lactose GI Discomfort Low 04/27/2025 Medications * Be aware that medications may not be up to date on this document. Alwaysverify current medications with the patient. OneTouch Verio test strip Use 1 (one) strip 4 times daily 04/28/20 23 Active acetaminophen (Tylenol) 325 MG tablet Take 2 (two) tablets by mouth every 6 hours as needed Maximum allowable Acetaminophen amount = 4 Grams (4000 mg) / 24 hours. 05/13/20 25 Active aspirin (Aspirin) 81 MG chew tablet Take 1 (one) tablet by mouth once daily (chew and swallow) 05/14/20 25 Active venlafaxine XR 24hr (Effexor XR) 150 MG capsule Take 1 (one) capsule by mouth daily with dinner 05/13/20 25 Active folic acid (Folvite) 1 MG tablet Take 1 (one) tablet by mouth once daily 05/14/20 Active atorvastatin (Lipitor) 80 MG tablet Take 1 (one) tablet by mouth at bedtime 09/23/20 Active carvedilol (Coreg) 25 MG tablet Take 1 (one) tablet by mouth 2 times daily with morning and evening meal 09/23/20 Active cinacalcet (Sensipar) 30 MG tablet Take 2 (two) tablets by mouth daily with breakfast 09/30/20 Active ticagrelor (Brilinta) 90 MG tablet Take 1 (one) tablet by mouth 2 times daily 09/30/20 Active atorvastatin (Lipitor) 40 MG tablet Take 1 (one) tablet by mouth at bedtime 05/13/20 25 2024 Discontinued(C linical Decision) carvedilol (Coreg) 12.5 MG tablet Take 1 (one) tablet by mouth 2 times daily with morning and evening meal 05/13/20 25 2024 Discontinued(C linical Decision) cinacalcet (Sensipar) 30 MG tablet Take 1 (one) tablet by mouth daily with breakfast 05/14/20 25 2024 Discontinued clopidogrel (plaVIX) 75 MG tablet Take 1 (one) tablet by mouth once daily 05/14/20 25 2024 Discontinued(C linical Decision) ticagrelor (Brilinta) 90 MG tablet Take 1 (one) tablet by mouth 2 times daily 90 tablet 3 3:37 PM SOFTWARE LEAD 09/23/20 25 2024 Discontinued amLODIPine (Norvasc) 2.5 MG tablet Take 1 (one) tablet by mouth once daily 2024 Discontinued(C linical Decision) Active Problems Problem Noted Date Diagnosed Date Severe protein-calorie malnutrition 09/30/2025 Assessment & Plan (09/30/2025 5:55 PM SOFTWARE LEAD): - Nutrition consulted and followed throughout admission Hx of major depression 09/20/2025 Assessment & Plan (09/30/2025 1:23 PM SOFTWARE LEAD): -Continue home Effexor Assessment & Plan (09/29/2025 7:58 AM SOFTWARE LEAD): -Continue home Effexor Assessment & Plan (09/28/2025 8:21 AM SOFTWARE LEAD): -Continue home Effexor Assessment & Plan (09/27/2025 2:10 PM SOFTWARE LEAD): -Continue home Effexor Assessment & Plan (09/26/2025 8:35 AM SOFTWARE LEAD): -Continue home Effexor Assessment & Plan (09/25/2025 3:03 PM SOFTWARE LEAD): -Continue home Effexor Assessment & Plan (09/24/2025 5:48 PM SOFTWARE LEAD): -Continue home venlafaxine Assessment & Plan (09/23/2025 5:13 PM SOFTWARE LEAD): -Continue home venlafaxine Assessment & Plan (09/22/2025 7:39 AM SOFTWARE LEAD): -Continue home venlafaxine Assessment & Plan (09/21/2025 11:16 AM SOFTWARE LEAD): -Continue home venlafaxine Assessment & Plan (09/20/2025 8:16 AM SOFTWARE LEAD): -Continue home venlafaxine Ischemic stroke 09/19/2025 Assessment & Plan (09/30/2025 1:23 PM SOFTWARE LEAD): -Initially admitted to stroke team found to have ischemic stroke, continue aspirin 81mg, Brilinta 90 mg started this admission, Lipitor increased from 40 to 80 mg -PT OT recommending SNF Assessment & Plan (09/29/2025 7:58 AM SOFTWARE LEAD): -Initially admitted to stroke team found to have ischemic stroke, continue aspirin 81mg, Brilinta 90 mg started this admission, Lipitor increased from 40 to 80 mg -PT OT recommending SNF Assessment & Plan (09/28/2025 10:59 AM SOFTWARE LEAD): -Initially admitted to stroke team found to have ischemic stroke, continue aspirin 81mg, Brilinta 90 mg started this admission, Lipitor increased from 40 to 80 mg -PT OT recommending SNF Assessment & Plan (09/27/2025 2:10 PM SOFTWARE LEAD): - Initially admitted to stroke team found to have ischemic stroke, continue aspirin 81mg, Brilinta 90 mg started this admission, Lipitor increased from 40 to 80 mg -PT OT recommending SNF Assessment & Plan (09/26/2025 8:35 AM SOFTWARE LEAD): - Initially admitted to stroke team found to have ischemic stroke, continue aspirin 81mg, Brilinta 90 mg started this admission, Lipitor increased from 40 to 80 mg -PT OT recommending SNF Assessment & Plan (09/25/2025 3:03 PM SOFTWARE LEAD): - Initially admitted to stroke team found to have ischemic stroke, continue aspirin 81mg, Brilinta 90 mg started this admission, Lipitor increased from 40 to 80 mg -PT OT recommending SNF Assessment & Plan (09/24/2025 5:48 PM SOFTWARE LEAD): -see above Assessment & Plan (09/23/2025 5:13 PM SOFTWARE LEAD): -see above Assessment & Plan (09/22/2025 7:39 AM SOFTWARE LEAD): -see above Assessment & Plan (09/21/2025 9:54 AM SOFTWARE LEAD): -see above Assessment & Plan (09/20/2025 9:27 AM SOFTWARE LEAD): Assessment & Plan (09/20/2025 8:16 AM SOFTWARE LEAD): -see above Secondary hyperparathyroidism 08/07/2025 Assessment & Plan (09/30/2025 1:23 PM SOFTWARE LEAD): -Nephrology following for maintenance dialysis Assessment & Plan (09/29/2025 7:58 AM SOFTWARE LEAD): -Nephrology following for maintenance dialysis Assessment & Plan (09/28/2025 10:59 AM SOFTWARE LEAD): -Nephrology following for maintenance dialysis Assessment & Plan (09/27/2025 2:10 PM SOFTWARE LEAD): -Nephrology following for maintenance dialysis Assessment & Plan (09/26/2025 8:35 AM SOFTWARE LEAD): -Nephrology following for maintenance dialysis Assessment & Plan (09/25/2025 3:03 PM SOFTWARE LEAD): -Nephrology following for maintenance dialysis Assessment & Plan (09/24/2025 5:48 PM SOFTWARE LEAD): ESRD on HD - hemodialysis catheter placement confirmed with CXR 09/20 - dialysis schedule MWF - last dialysis 09/21 Hyperparathyroidism - Vitamin D low (19.9) -DC'd vitamin D supplementation per nephrology due to hypercalcemia, nephrology recommending SestaMIBI scan -Started on send Salit 60 mg daily -Recommending ENT consult for possible 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 Assessment & Plan (09/23/2025 5:13 PM SOFTWARE LEAD): ESRD on HD - hemodialysis catheter placement confirmed with CXR 09/20 - dialysis schedule MWF - last dialysis 09/21 Hyperparathyroidism - Vitamin D low (19.9) -DC'd vitamin D supplementation per nephrology due to hypercalcemia, nephrology recommending SestaMIBI scan -Started on send Salit 60 mg daily -Recommending ENT consult for possible 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 Assessment & Plan (09/22/2025 8:55 PM SOFTWARE LEAD): ESRD on HD - hemodialysis catheter placement confirmed with CXR 09/20 - dialysis schedule MWF - last dialysis 09/21 Hyperparathyroidism - Vitamin D low (19.9) -DC'd vitamin D supplementation per nephrology due to hypercalcemia, nephrology recommending SestaMIBI scan -Started on send Salit 60 mg daily -Recommending ENT consult for possible 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 Assessment & Plan (09/21/2025 9:54 AM SOFTWARE LEAD): ESRD on HD - hemodialysis catheter placement confirmed with CXR 09/20 - dialysis schedule MWF - per nephrology no dialysis F 09/20 Hyperparathyroidism - Nephrology recommending PTHrp, Vitamin D, Ionized Calcium (ordered) - Vitamin D low (19.9) - supplement D3 5000 units Assessment & Plan (09/20/2025 10:00 AM SOFTWARE LEAD): -HD per nephrology Cerebrovascular accident (CV A) due to embolism [...] in right frontoparietal lobes (R MCA). Multiple ifjrs-on-mpjnfgcm small infarcts in left centrum semiovale and shin radiata (embolic pattern). CTA Head/Neck: Multifocal, severe intracranial arterial stenoses involving bilateral anterior, middle, posterior cerebral arteries and vertebrobasilar system. Concern for [place] vasculitis--LP and CSF studies not consistent; Rheumatology [...] in right frontoparietal lobes (R MCA). Multiple rtupm-oo-sfglxuxd small infarcts in left centrum semiovale and shin radiata (embolic pattern). CTA Head/Neck: Multifocal, severe intracranial arterial stenoses involving bilateral anterior, middle, posterior cerebral arteries and vertebrobasilar system. Concern for [place] vasculitis--LP and CSF studies not consistent; Rheumatology [...] in right frontoparietal lobes (R MCA). Multiple irsri-mr-bzzypsgz small infarcts in left centrum semiovale and shin radiata (embolic pattern). CTA Head/Neck: Multifocal, severe intracranial arterial stenoses involving bilateral anterior, middle, posterior cerebral arteries and vertebrobasilar system. Concern for [place] vasculitis--LP and CSF studies not consistent; Rheumatology [...] in right frontoparietal lobes (R MCA). Multiple oimph-vd-eizsbysx small infarcts in left centrum semiovale and shin radiata (embolic pattern). CTA Head/Neck: Multifocal, severe intracranial arterial stenoses involving bilateral anterior, middle, posterior cerebral arteries and vertebrobasilar system. Concern for [place] vasculitis--LP and CSF studies not consistent; Rheumatology [...] restricted diffusion concerning for acute infarction. -Multiple xmvkj-zv-senzyryj small infarcts scattered in the left centrum [...] entire basilar artery. There was concern for [place] vasculitis, however LP CSF studies are not [...] restricted diffusion concerning for acute infarction. -Multiple dqjxw-ph-xfcmrjiq small infarcts scattered in the left centrum [...] entire basilar artery. There was concern for [place] vasculitis, however LP CSF studies. Rheumatology evaluated [...] in right frontoparietal lobes (R MCA). Multiple pmchz-ri-txsxfqqq small infarcts in left centrum semiovale and shin radiata (embolic pattern). CTA Head/Neck: Multifocal, severe intracranial arterial stenoses involving bilateral anterior, middle, posterior cerebral arteries and vertebrobasilar system. Concern for [place] vasculitis--LP and CSF studies not consistent; Rheumatology [...] in right frontoparietal lobes (R MCA). Multiple nqgtj-tl-jabxbyfy small infarcts in left centrum semiovale and shin radiata (embolic pattern). CTA Head/Neck: Multifocal, severe intracranial arterial stenoses involving bilateral anterior, middle, posterior cerebral arteries and vertebrobasilar system. Concern for [place] vasculitis--LP and CSF studies not consistent; Rheumatology [...] in right frontoparietal lobes (R MCA). Multiple hzudq-pw-illjcqkp small infarcts in left centrum semiovale and shin radiata (embolic pattern). CTA Head/Neck: Multifocal, severe intracranial arterial stenoses involving bilateral anterior, middle, posterior cerebral arteries and vertebrobasilar system. Concern for [place] vasculitis--LP and CSF studies not consistent; Rheumatology [...] in right frontoparietal lobes (R MCA). Multiple khflr-of-mzhabitr small infarcts in left centrum semiovale and shin radiata (embolic pattern). CTA Head/Neck: Multifocal, severe intracranial arterial stenoses involving bilateral anterior, middle, posterior cerebral arteries and vertebrobasilar system. Concern for [place] vasculitis--LP and CSF studies not consistent; Rheumatology [...] restricted diffusion concerning for acute infarction. -Multiple yiwub-uy-ggqidwhp small infarcts scattered in the left centrum [...] entire basilar artery. There was concern for [place] vasculitis, however LP CSF studies are not [...] restricted diffusion concerning for acute infarction. -Multiple fuwbf-qp-jkeilehz small infarcts scattered in the left centrum [...] entire basilar artery. There was concern for [place] vasculitis, however LP CSF studies. Rheumatology evaluated [...] in right frontoparietal lobes (R MCA). Multiple ruwuu-wg-boebdiny small infarcts in left centrum semiovale and shin radiata (embolic pattern). CTA Head/Neck: Multifocal, severe intracranial arterial stenoses involving bilateral anterior, middle, posterior cerebral arteries and vertebrobasilar system. Concern for [place] vasculitis--LP and CSF studies not consistent; Rheumatology [...] in right frontoparietal lobes (R MCA). Multiple yztgz-jh-unfnwdgp small infarcts in left centrum semiovale and shin radiata (embolic pattern). CTA Head/Neck: Multifocal, severe intracranial arterial stenoses involving bilateral anterior, middle, posterior cerebral arteries and vertebrobasilar system. Concern for [place] vasculitis--LP and CSF studies not consistent; Rheumatology [...] in right frontoparietal lobes (R MCA). Multiple guyvr-at-uouiomqe small infarcts in left centrum semiovale and shin radiata (embolic pattern). CTA Head/Neck: Multifocal, severe intracranial arterial stenoses involving bilateral anterior, middle, posterior cerebral arteries and vertebrobasilar system. Concern for [place] vasculitis--LP and CSF studies not consistent; Rheumatology [...] in right frontoparietal lobes (R MCA). Multiple kehkd-ut-pvfdkvkp small infarcts in left centrum semiovale and shin radiata (embolic pattern). CTA Head/Neck: Multifocal, severe intracranial arterial stenoses involving bilateral anterior, middle, posterior cerebral arteries and vertebrobasilar system. Concern for [place] vasculitis--LP and CSF studies not consistent; Rheumatology [...] restricted diffusion concerning for acute infarction. -Multiple faumx-yi-gcqcwwfl small infarcts scattered in the left centrum [...] entire basilar artery. There was concern for [place] vasculitis, however LP CSF studies are not [...] restricted diffusion concerning for acute infarction. -Multiple iqdtc-nk-qnitbxpn small infarcts scattered in the left centrum [...] entire basilar artery. There was concern for [place] vasculitis, however LP CSF studies. Rheumatology evaluated [...] -Continue home cinacalcet -Start on vitamin D 67306 units q7 days for 6 weeks. -Sestamibi [...] -Continue home cinacalcet -Start on vitamin D 02140 units q7 days for 6 weeks. -Sestamibi [...] -Continue home cinacalcet -Start on vitamin D 68151 units q7 days for 6 weeks. -Sestamibi [...] -Continue home cinacalcet -Start on vitamin D 53052 units q7 days for 6 weeks. -Sestamibi [...] -Continue home cinacalcet -Start on vitamin D 74995 units q7 days for 6 weeks. -Sestamibi [...] -Continue home cinacalcet -Start on vitamin D 23454 units q7 days for 6 weeks. -Sestamibi [...] in right frontoparietal lobes (R MCA). Multiple sojti-bw-pwvfjqdv small infarcts in left centrum semiovale and shin radiata (embolic pattern). CTA Head/Neck: Multifocal, severe intracranial arterial stenoses involving bilateral anterior, middle, posterior cerebral arteries and vertebrobasilar system. Concern for [place] vasculitis--LP and CSF studies not consistent; Rheumatology [...] in right frontoparietal lobes (R MCA). Multiple xowkc-gh-nnuiwifp small infarcts in left centrum semiovale and shin radiata (embolic pattern). CTA Head/Neck: Multifocal, severe intracranial arterial stenoses involving bilateral anterior, middle, posterior cerebral arteries and vertebrobasilar system. Concern for [place] vasculitis--LP and CSF studies not consistent; Rheumatology [...] in right frontoparietal lobes (R MCA). Multiple yuyos-ld-usxzxfmp small infarcts in left centrum semiovale and shin radiata (embolic pattern). CTA Head/Neck: Multifocal, severe intracranial arterial stenoses involving bilateral anterior, middle, posterior cerebral arteries and vertebrobasilar system. Concern for [place] vasculitis--LP and CSF studies not consistent; Rheumatology [...] in right frontoparietal lobes (R MCA). Multiple daxft-ar-jjoimfom small infarcts in left centrum semiovale and shin radiata (embolic pattern). CTA Head/Neck: Multifocal, severe intracranial arterial stenoses involving bilateral anterior, middle, posterior cerebral arteries and vertebrobasilar system. Concern for [place] vasculitis--LP and CSF studies not consistent; Rheumatology [...] restricted diffusion concerning for acute infarction. -Multiple bjjla-eu-qtoeaxsd small infarcts scattered in the left centrum [...] entire basilar artery. There was concern for [place] vasculitis, however LP CSF studies are not [...] restricted diffusion concerning for acute infarction. -Multiple pxafo-jd-jhcjxhvb small infarcts scattered in the left centrum [...] entire basilar artery. There was concern for [place] vasculitis, however LP CSF studies. Rheumatology evaluated [...] restricted diffusion concerning for acute infarction. -Multiple rtlin-vl-xhzwnayf small infarcts scattered in the left centrum [...] and entire basilar artery. -Findings concerning for [place] vasculitis. Additional Studies / Interventions: TTE: EF 55%, no intracardiac shunt. LEX negative; ANCA <1:20, PR3 = 0, MPO = 0. LP performed by Neuroradiology on 05/07; CSF studies pending. NSGY consulted for possible brain mass--no discrete lesion on MRI; no indication for biopsy. Records requested from [facility]; no relevant data received. Plan: Resume [...] the entire basilar artery. Concern for potential [place] vasculitis. Plan: -Obtained records from [facility], no relevant materials were provided unfortunately. [...] the entire basilar artery. Concern for potential [place] vasculitis. Plan: -Obtained records from [facility], no relevant materials were provided unfortunately. [...] the entire basilar artery. Concern for potential [place] vasculitis. Plan: -Obtained records from [facility], no relevant materials were provided unfortunately. [...] the entire basilar artery. Concern for potential [place] vasculitis. Plan: -Obtained records from [facility], no relevant materials were provided unfortunately. [...] the entire basilar artery. Concern for potential [place] vasculitis. Plan: -Obtained records from [facility], no relevant materials were provided unfortunately. -Will have [facility] discussion with patient and POA [...] in right frontoparietal lobes (R MCA). Multiple drghn-cy-nluhesga small infarcts in left centrum semiovale and shin radiata (embolic pattern). CTA Head/Neck: Multifocal, severe intracranial arterial stenoses involving bilateral anterior, middle, posterior cerebral arteries and vertebrobasilar system. Concern for [place] vasculitis--LP and CSF studies not consistent; Rheumatology [...] in right frontoparietal lobes (R MCA). Multiple zzfil-ok-lyxcgogw small infarcts in left centrum semiovale and shin radiata (embolic pattern). CTA Head/Neck: Multifocal, severe intracranial arterial stenoses involving bilateral anterior, middle, posterior cerebral arteries and vertebrobasilar system. Concern for [place] vasculitis--LP and CSF studies not consistent; Rheumatology [...] in right frontoparietal lobes (R MCA). Multiple ukbzl-pd-bkusoqxh small infarcts in left centrum semiovale and shin radiata (embolic pattern). CTA Head/Neck: Multifocal, severe intracranial arterial stenoses involving bilateral anterior, middle, posterior cerebral arteries and vertebrobasilar system. Concern for [place] vasculitis--LP and CSF studies not consistent; Rheumatology [...] in right frontoparietal lobes (R MCA). Multiple pngeb-aa-vrgbbktd small infarcts in left centrum semiovale and shin radiata (embolic pattern). CTA Head/Neck: Multifocal, severe intracranial arterial stenoses involving bilateral anterior, middle, posterior cerebral arteries and vertebrobasilar system. Concern for [place] vasculitis--LP and CSF studies not consistent; Rheumatology [...] restricted diffusion concerning for acute infarction. -Multiple izxgb-jh-tlgedqok small infarcts scattered in the left centrum [...] entire basilar artery. There was concern for [place] vasculitis, however LP CSF studies are not [...] restricted diffusion concerning for acute infarction. -Multiple cgeyd-fg-kzonuebz small infarcts scattered in the left centrum [...] entire basilar artery. There was concern for [place] vasculitis, however LP CSF studies. Rheumatology evaluated [...] restricted diffusion concerning for acute infarction. -Multiple mrlpj-jh-kvmxrqgi small infarcts scattered in the left centrum [...] and entire basilar artery. -Findings concerning for [place] vasculitis. Additional Studies / Interventions: TTE: EF 55%, no intracardiac shunt. LEX negative; ANCA <1:20, PR3 = 0, MPO = 0. LP performed by Neuroradiology on 05/07; CSF studies pending. NSGY consulted for possible brain mass--no discrete lesion on MRI; no indication for biopsy. Records requested from [facility]; no relevant data received. Plan: Resume [...] the entire basilar artery. Concern for potential [place] vasculitis. Plan: -Obtained records from [facility], no relevant materials were provided unfortunately. [...] the entire basilar artery. Concern for potential [place] vasculitis. Plan: -Obtained records from [facility], no relevant materials were provided unfortunately. [...] the entire basilar artery. Concern for potential [place] vasculitis. Plan: -Obtained records from [facility], no relevant materials were provided unfortunately. [...] the entire basilar artery. Concern for potential [place] vasculitis. Plan: -Obtained records from [facility], no relevant materials were provided unfortunately. [...] the entire basilar artery. Concern for potential [place] vasculitis. Plan: -Obtained records from [facility], no relevant materials were provided unfortunately. [...] -Continue home cinacalcet -Start on vitamin D 17021 units q7 days for 6 weeks. Assessment [...] right MCA stroke 04/29/2025 Assessment & Plan (09/30/2025 1:23 PM SOFTWARE LEAD): -Initially admitted to stroke team found to have ischemic stroke, continue aspirin 81mg, Brilinta 90 mg started this admission, Lipitor increased from 40 to 80 mg -PT OT recommending SNF Assessment & Plan (09/29/2025 7:58 AM SOFTWARE LEAD): -Initially admitted to stroke team found to have ischemic stroke, continue aspirin 81mg, Brilinta 90 mg started this admission, Lipitor increased from 40 to 80 mg -PT OT recommending SNF Assessment & Plan (09/28/2025 10:59 AM SOFTWARE LEAD): -Initially admitted to stroke team found to have ischemic stroke, continue aspirin 81mg, Brilinta 90 mg started this admission, Lipitor increased from 40 to 80 mg -PT OT recommending SNF Assessment & Plan (09/27/2025 2:10 PM SOFTWARE LEAD): - Initially admitted to stroke team found to have ischemic stroke, continue aspirin 81mg, Brilinta 90 mg started this admission, Lipitor increased from 40 to 80 mg -PT OT recommending SNF Assessment & Plan (09/26/2025 8:35 AM SOFTWARE LEAD): - Initially admitted to stroke team found to have ischemic stroke, continue aspirin 81mg, Brilinta 90 mg started this admission, Lipitor increased from 40 to 80 mg -PT OT recommending SNF Assessment & Plan (09/25/2025 3:03 PM SOFTWARE LEAD): - Initially admitted to stroke team found to have ischemic stroke, continue aspirin 81mg, Brilinta 90 mg started this admission, Lipitor increased from 40 to 80 mg -PT OT recommending SNF Assessment & Plan (09/24/2025 5:48 PM SOFTWARE LEAD): -see above Assessment & Plan (09/23/2025 5:13 PM SOFTWARE LEAD): -see above Assessment & Plan (09/22/2025 7:39 AM SOFTWARE LEAD): -see above Assessment & Plan (09/21/2025 9:54 AM SOFTWARE LEAD): -see above Assessment & Plan (09/20/2025 9:27 AM SOFTWARE LEAD): Assessment & Plan (09/20/2025 8:16 AM SOFTWARE LEAD): -see above Assessment & Plan (05/07/2025 9:11 PM CDT): Encephalopathy / Stroke Workup to Date: Infectious/Metabolic: HIV negative, RPR negative, B12 and TSH within normal limits. MRI Brain (04/28/25): -Subacute infarction in the right frontoparietal lobes (R MCA territory) with some restricted diffusion concerning for acute infarction. -Multiple ybjfz-dj-uiyhljtu small infarcts scattered in the left centrum [...] and entire basilar artery. -Findings concerning for [place] vasculitis. Additional Studies / Interventions: TTE: EF 55%, no intracardiac shunt. LEX negative; ANCA <1:20, PR3 = 0, MPO = 0. LP performed by Neuroradiology on 05/07; CSF studies pending. NSGY consulted for possible brain mass--no discrete lesion on MRI; no indication for biopsy. Records requested from [facility]; no relevant data received. Plan: Resume [...] the entire basilar artery. Concern for potential [place] vasculitis. Plan: -Obtained records from [facility], no relevant materials were provided unfortunately. [...] the entire basilar artery. Concern for potential [place] vasculitis. Plan: -Obtained records from [facility], no relevant materials were provided unfortunately. [...] the entire basilar artery. Concern for potential [place] vasculitis. Plan: -Obtained records from [facility], no relevant materials were provided unfortunately. [...] the entire basilar artery. Concern for potential [place] vasculitis. Plan: -Obtained records from [facility], no relevant materials were provided unfortunately. -Will have [facility] discussion with patient and POA [...] the entire basilar artery. Concern for potential [place] vasculitis. Plan: -Obtained records from [facility], no relevant materials were provided unfortunately. -Will have [facility] discussion with patient and POA [...] Plan: -Will attempt to obtain records from [facility] to further clarify patient's breast cancer [...] -Continue home cinacalcet -Start on vitamin D 40042 units q7 days for 6 weeks. Assessment [...] restricted diffusion concerning for acute infarction. -Multiple [id number] small infarcts scattered in the left centrum [...] and entire basilar artery. -Findings concerning for [place] vasculitis. Additional Studies / Interventions: TTE: EF 55%, no intracardiac shunt. LEX negative; ANCA <1:20, PR3 = 0, MPO = 0. LP performed by Neuroradiology on 05/07; CSF studies pending. NSGY consulted for possible brain mass--no discrete lesion on MRI; no indication for biopsy. Records requested from [facility]; no relevant data received. Plan: Resume [...] the entire basilar artery. Concern for potential [place] vasculitis. Plan: -Obtained records from [facility], no relevant materials were provided unfortunately. [...] the entire basilar artery. Concern for potential [place] vasculitis. Plan: -Obtained records from [facility], no relevant materials were provided unfortunately. [...] the entire basilar artery. Concern for potential [place] vasculitis. Plan: -Obtained records from [facility], no relevant materials were provided unfortunately. [...] the entire basilar artery. Concern for potential [place] vasculitis. Plan: -Obtained records from [facility], no relevant materials were provided unfortunately. [...] the entire basilar artery. Concern for potential [place] vasculitis. Plan: -Obtained records from [facility], no relevant materials were provided unfortunately. -Will have [facility] discussion with patient and POA [...] -Continue home cinacalcet -Start on vitamin D 32698 units q7 days for 6 weeks. Assessment [...] -Continue home cinacalcet -Start on vitamin D 52499 units q7 days for 6 weeks. -Sestamibi [...] -Continue home cinacalcet -Start on vitamin D 64268 units q7 days for 6 weeks. -Sestamibi [...] -Continue home cinacalcet -Start on vitamin D 30401 units q7 days for 6 weeks. -Sestamibi [...] -Continue home cinacalcet -Start on vitamin D 06488 units q7 days for 6 weeks. -Sestamibi [...] -Continue home cinacalcet -Start on vitamin D 41717 units q7 days for 6 weeks. -Sestamibi [...] -Continue home cinacalcet -Start on vitamin D 58104 units q7 days for 6 weeks. -Sestamibi [...] -Continue home cinacalcet -Start on vitamin D 31071 units q7 days for 6 weeks. Assessment [...] -Continue home cinacalcet -Start on vitamin D 81266 units q7 days for 6 weeks. -Sestamibi [...] -Continue home cinacalcet -Start on vitamin D 87291 units q7 days for 6 weeks. -Sestamibi [...] -Continue home cinacalcet -Start on vitamin D 50992 units q7 days for 6 weeks. -Sestamibi [...] -Continue home cinacalcet -Start on vitamin D 14958 units q7 days for 6 weeks. -Sestamibi [...] -Continue home cinacalcet -Start on vitamin D 10749 units q7 days for 6 weeks. -Sestamibi [...] -Continue home cinacalcet -Start on vitamin D 38084 units q7 days for 6 weeks. -Sestamibi [...] -Continue home cinacalcet -Start on vitamin D 83713 units q7 days for 6 weeks. Assessment & Plan (04/29/2025 3:06 PM CDT): -Ordered further encephalopathy workup: HIV-neg, RPR-neg, B12, WNL, TSH WNL -MRI brain 7/20/25: shows subacute infarction of the R frontoparietal [...] stage renal disease) 04/29/2025 Assessment & Plan (09/30/2025 1:23 PM SOFTWARE LEAD): -Nephrology following for maintenance dialysis Assessment & Plan (09/29/2025 7:58 AM SOFTWARE LEAD): -Nephrology following for maintenance dialysis Assessment & Plan (09/28/2025 10:59 AM SOFTWARE LEAD): -Nephrology following for maintenance dialysis Assessment & Plan (09/27/2025 2:10 PM SOFTWARE LEAD): -Nephrology following for maintenance dialysis Assessment & Plan (09/26/2025 8:35 AM SOFTWARE LEAD): -Nephrology following for maintenance dialysis Assessment & Plan (09/25/2025 3:03 PM SOFTWARE LEAD): -Nephrology following for maintenance dialysis Assessment & Plan (09/24/2025 5:48 PM SOFTWARE LEAD): ESRD on HD - hemodialysis catheter placement confirmed with CXR 09/20 - dialysis schedule MWF - last dialysis 09/21 Hyperparathyroidism - Vitamin D low (19.9) -DC'd vitamin D supplementation per nephrology due to hypercalcemia, nephrology recommending SestaMIBI scan -Started on send Salit 60 mg daily -Recommending ENT consult for possible 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 Assessment & Plan (09/23/2025 5:13 PM SOFTWARE LEAD): ESRD on HD - hemodialysis catheter placement confirmed with CXR 09/20 - dialysis schedule MWF - last dialysis 09/21 Hyperparathyroidism - Vitamin D low (19.9) -DC'd vitamin D supplementation per nephrology due to hypercalcemia, nephrology recommending SestaMIBI scan -Started on send Salit 60 mg daily -Recommending ENT consult for possible 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 Assessment & Plan (09/22/2025 8:55 PM SOFTWARE LEAD): ESRD on HD - hemodialysis catheter placement confirmed with CXR 09/20 - dialysis schedule MWF - last dialysis 09/21 Hyperparathyroidism - Vitamin D low (19.9) -DC'd vitamin D supplementation per nephrology due to hypercalcemia, nephrology recommending SestaMIBI scan -Started on send Salit 60 mg daily -Recommending ENT consult for possible 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 Assessment & Plan (09/21/2025 9:54 AM SOFTWARE LEAD): ESRD on HD - hemodialysis catheter placement confirmed with CXR 09/20 - dialysis schedule MWF - per nephrology no dialysis F 09/20 Hyperparathyroidism - Nephrology recommending PTHrp, Vitamin D, Ionized Calcium (ordered) - Vitamin D low (19.9) - supplement D3 5000 units Assessment & Plan (09/20/2025 9:27 AM SOFTWARE LEAD): Assessment & Plan (09/20/2025 10:00 AM SOFTWARE LEAD): -HD per nephrology Assessment & Plan (05/13/2025 9:27 PM CDT): [...] Assessment & Plan (05/04/2025 1:17 PM CDT): [facility] Quick Recap - Optional: Managed by nephrology [...] Assessment & Plan (05/03/2025 11:14 AM CDT): [facility] Quick Recap - Optional: Managed by nephrology [...] Assessment & Plan (05/02/2025 1:40 PM CDT): [facility] Quick Recap - Optional: Managed by nephrology [...] Assessment & Plan (05/01/2025 2:51 PM CDT): [facility] Quick Recap - Optional: Managed by nephrology [...] Assessment & Plan (04/30/2025 11:34 AM CDT): [facility] Quick Recap - Optional: Managed by nephrology [...] Assessment & Plan (04/29/2025 3:05 PM CDT): [facility] Quick Recap - Optional: Managed by nephrology [...] Assessment & Plan (04/29/2025 2:52 PM CDT): [facility] Quick Recap - Optional: Managed by nephrology -Consulted nephro to resume HD MWF (last HD session Thursday 04/26 per rehab facility) >No urgent HD needs at this time -Hold home sodium bicarb 1300 mg BID given mild alkalosis that has developed -Continue home cinacalcet 30 mg daily -CTM daily RFP Primary hypertension 04/29/2025 Assessment & Plan (09/30/2025 1:23 PM SOFTWARE LEAD): -Continue Coreg 25 mg twice daily Assessment & Plan (09/29/2025 7:58 AM SOFTWARE LEAD): -Continue Coreg 25 mg twice daily Assessment & Plan (09/28/2025 10:59 AM SOFTWARE LEAD): -Continue Coreg 25 mg twice daily Assessment & Plan (09/27/2025 2:10 PM SOFTWARE LEAD): - Continue Coreg 25 mg twice daily Assessment & Plan (09/26/2025 8:35 AM SOFTWARE LEAD): - Continue Coreg 25 mg twice daily Assessment & Plan (09/25/2025 3:03 PM SOFTWARE LEAD): - Continue Coreg 25 mg twice daily Assessment & Plan (09/24/2025 5:48 PM SOFTWARE LEAD): -see above Assessment & Plan (09/23/2025 5:13 PM SOFTWARE LEAD): -see above Assessment & Plan (09/22/2025 7:39 AM SOFTWARE LEAD): -see above Assessment & Plan (09/21/2025 9:54 AM SOFTWARE LEAD): -see above Assessment & Plan (09/20/2025 9:27 AM SOFTWARE LEAD): Assessment & Plan (09/20/2025 8:16 AM SOFTWARE LEAD): -see above Assessment & Plan (05/13/2025 9:27 PM CDT): [...] unspecified compli cations 04/29/2025 Assessment & Plan (09/30/2025 1:23 PM SOFTWARE LEAD): -A1c 4.5 -Discontinue Accu-Cheks and sliding scale insulin, will monitor glucose on daily labs Assessment & Plan (09/29/2025 7:58 AM SOFTWARE LEAD): -A1c 4.5 -Discontinue Accu-Cheks and sliding scale insulin, will monitor glucose on daily labs Assessment & Plan (09/28/2025 8:21 AM SOFTWARE LEAD): -A1c 4.5 -Discontinue Accu-Cheks and sliding scale insulin, will monitor glucose on daily labs Assessment & Plan (09/27/2025 2:10 PM SOFTWARE LEAD): -A1c 4.5 -Discontinue Accu-Cheks and sliding scale insulin, will monitor glucose on daily labs Assessment & Plan (09/26/2025 8:35 AM SOFTWARE LEAD): -A1c 4.5 -Discontinue Accu-Cheks and sliding scale insulin, will monitor glucose on daily labs Assessment & Plan (09/25/2025 3:03 PM SOFTWARE LEAD): -A1c 4.5 -Discontinue Accu-Cheks and sliding scale insulin, will monitor glucose on daily labs Assessment & Plan (09/24/2025 5:48 PM SOFTWARE LEAD): On SSI Assessment & Plan (09/23/2025 5:13 PM SOFTWARE LEAD): On SSI Assessment & Plan (09/22/2025 7:39 AM SOFTWARE LEAD): On SSI Assessment & Plan (09/21/2025 9:54 AM SOFTWARE LEAD): On SSI Assessment & Plan (09/20/2025 9:27 AM SOFTWARE LEAD): Assessment & Plan (09/20/2025 8:16 AM SOFTWARE LEAD): On SSI Assessment & Plan (05/13/2025 9:27 PM CDT): [...] Encounters Date Type Department Care Team Description 09/19/2025 10:05 PM SOFTWARE LEAD - 09/30/2025 9:43 PM SOFTWARE LEAD Hospital Encounter [facility] [address] [place] [address] Tae Fisher MD Esechie, Aimalohi, MD Billadeau, Maggie, DO Neurology Discharge Disposition: Fdc Facility 09/03/2025 Telephone [facility] [address] [facility] [place] [address] Bethany Juarez Appointment 08/07/2025 10:15 AM CDT Office Visit [facility] [address] [place] [phone] Carlitos Hobson MD Secondary hyperparathyroidism (HCC) (Primary Dx) 08/07/2025 Telephone [facility] [address] [place] [phone] Carlitos Hobson MD Question 07/19/2025 Telephone [facility] [address] [place] [address] Chandrakant Marcum MD Referral from Last 3 Months Immunizations Immunization Administration Dates Next Due COVID PFIZER BIVALENT 12Y+ 30mcg/0.3ML Covid Pfizer primary monoval ent 12+ yr [...] and heating? Not hard at all 04/30/2025 [facility] [place] [facility] Occup[facility] ional [facility] - Occupational Stress [...] any time in the past [address] [facility], were you homeless or living in a skilled nursing (including now)? No 04/30/2025 Comments Unknown Sex and Gender Information Value Date Recorded Sex Assigned at Not on file Legal Sex Female 9:52 AM CDT Gender Identity Not on file Sexual Orientation Not on file Last Filed Vital Signs Vital Sign Reading Time Taken Comments Blood Pressure 115/76 09/30/2025 8:48 PM SOFTWARE LEAD Pulse 103 09/30/2025 8:48 PM SOFTWARE LEAD Temperature 36.5 C (97.7 F) 09/30/2025 8:48 PM SOFTWARE LEAD Respiratory Rate 16 09/30/2025 8:48 PM SOFTWARE LEAD Oxygen Saturation 99% 09/30/2025 9:12 PM SOFTWARE LEAD Inhaled Oxygen Concentration - - Weight 70 kg (154 lb 6.4 oz) 09/29/2025 11:05 AM SOFTWARE LEAD Height 165.1 cm (5' 5) 09/20/2025 8:00 AM SOFTWARE LEAD Body Mass Index 25.69 09/20/2025 8:00 AM SOFTWARE LEAD Plan of Treatment Upcoming Encounters Date Type Department Care Team (Late st Contact Info) Description 10/31/2025 1:00 AM SOFTWARE LEAD Clinical Support [facility] - Cardiology [address] [facility], [facility] [address] [place] [address] 11/21/2025 10:30 AM SOFTWARE LEAD Office Visit [facility] - Neurology [address] [facility] [place] [phone] Debi Carmen PA-C [address] [facility] [address] [place] [phone] 12/05/2025 1:00 AM SOFTWARE LEAD Clinical Support [facility]iology [address] [facility], [address] [address] 01/09/2026 1:00 AM CDT Clinical Support [facility] - Cardiology [address] [facility], [address] [address] 02/13/2026 1:00 AM CDT Clinical Support [facility] Cardiology [address] [facility], [address] [address] 03/20/2026 1:00 AM CDT Clinical Support [facility] - Cardiology [address] [facility], [address] [address] Health Maintenance Due Date Last Done Comments [...] DIABETES-FOOT EXAM WITH MONOFILAMENT 04/29/2025 COVID-19 VACCINE (2024-2 6 season) 2025 08/19/2022, 02/06/2021, 01/09/2021 INFLUENZA VACCINE (#1) 2025 , 2021 DIABETES-HGB A1C 03/21/2026 09/20/2025, 04/29/2025 DTAP/TDAP/TD VACCINES (2 - T d [...] this topic Medical Devices Implanted Type Area Dental Laboratory Technician Device Identifier Shelf Expiration Date Model / Serial / Lot Rcdr Crd Linq Ii Ins - [id number] Implanted:Qty: 1 on 05/10/2025 by Maryann Roa MD at [facility] [employer] [id number] 09/07/2026 [id number] / [id number] / [id number] Procedures Procedure Name Priority Date/Time Associated Diagnosis Comments GLUCOSE - POINT OF CARE Routine 09/30/2025 9:06 PM SOFTWARE LEAD CBC W/O DIFFERENTIAL Routine 09/30/2025 6:51 PM SOFTWARE LEAD BASIC METABOLIC PANEL (CALCIUM TOTAL) Routine 09/30/2025 6:51 PM SOFTWARE LEAD GLUCOSE - POINT OF CARE Routine 09/30/2025 5:12 PM SOFTWARE LEAD CBC W/O DIFFERENTIAL Routine 09/30/2025 4:10 PM SOFTWARE LEAD BASIC METABOLIC PANEL (CALCIUM TOTAL) Routine 09/30/2025 4:10 PM SOFTWARE LEAD GLUCOSE - POINT OF CARE Routine 09/30/2025 11:50 AM SOFTWARE LEAD GLUCOSE - POINT OF CARE Routine 09/30/2025 8:32 AM SOFTWARE LEAD GLUCOSE - POINT OF CARE Routine 09/29/2025 9:22 PM SOFTWARE LEAD GLUCOSE - POINT OF CARE Routine 09/29/2025 5:33 PM SOFTWARE LEAD GLUCOSE - POINT OF CARE Routine 09/29/2025 1:00 PM SOFTWARE LEAD GLUCOSE - POINT OF CARE Routine 09/28/2025 10:26 PM SOFTWARE LEAD CBC W/O DIFFERENTIAL Routine 09/28/2025 6:47 PM SOFTWARE LEAD BASIC METABOLIC PANEL (CALCIUM TOTAL) Routine 09/28/2025 6:47 PM SOFTWARE LEAD GLUCOSE - POINT OF CARE Routine 09/28/2025 4:47 PM SOFTWARE LEAD HEMODIALYSIS INPATIENT Routine 09/28/2025 12:17 PM SOFTWARE LEAD GLUCOSE - POINT OF CARE Routine 09/28/2025 12:06 PM SOFTWARE LEAD GLUCOSE - POINT OF CARE Routine 09/28/2025 8:07 AM SOFTWARE LEAD GLUCOSE - POINT OF CARE Routine 09/27/2025 9:14 PM SOFTWARE LEAD CBC W/O DIFFERENTIAL Routine 09/27/2025 6:28 PM SOFTWARE LEAD BASIC METABOLIC PANEL (CALCIUM TOTAL) Routine 09/27/2025 6:28 PM SOFTWARE LEAD GLUCOSE - POINT OF CARE Routine 09/27/2025 5:36 PM SOFTWARE LEAD GLUCOSE - POINT OF CARE Routine 09/27/2025 5:05 PM SOFTWARE LEAD GLUCOSE - POINT OF CARE Routine 09/27/2025 12:02 PM SOFTWARE LEAD GLUCOSE - POINT OF CARE Routine 09/26/2025 9:28 PM SOFTWARE LEAD CBC W/O DIFFERENTIAL Routine 09/26/2025 6:23 PM SOFTWARE LEAD BASIC METABOLIC PANEL (CALCIUM TOTAL) Routine 09/26/2025 6:23 PM SOFTWARE LEAD HEMODIALYSIS INPATIENT Routine 09/26/2025 4:23 PM SOFTWARE LEAD GLUCOSE - POINT OF CARE Routine 09/26/2025 4:09 PM SOFTWARE LEAD GLUCOSE - POINT OF CARE Routine 09/26/2025 12:02 PM SOFTWARE LEAD GLUCOSE - POINT OF CARE Routine 09/26/2025 8:11 AM SOFTWARE LEAD GLUCOSE - POINT OF CARE Routine 09/25/2025 9:39 PM SOFTWARE LEAD CBC W/O DIFFERENTIAL Routine 09/25/2025 6:49 PM SOFTWARE LEAD BASIC METABOLIC PANEL (CALCIUM TOTAL) Routine 09/25/2025 6:49 PM SOFTWARE LEAD GLUCOSE - POINT OF CARE Routine 09/25/2025 11:21 AM SOFTWARE LEAD EKG 12-LEAD Routine 09/25/2025 9:34 AM SOFTWARE LEAD Acute encephalopathy GLUCOSE - POINT OF CARE Routine 09/25/2025 7:33 AM SOFTWARE LEAD HEMODIALYSIS INPATIENT Routine 09/25/2025 5:11 AM SOFTWARE LEAD GLUCOSE - POINT OF CARE Routine 09/24/2025 9:06 PM SOFTWARE LEAD CBC W/O DIFFERENTIAL Routine 09/24/2025 6:37 PM SOFTWARE LEAD BASIC METABOLIC PANEL (CALCIUM TOTAL) Routine 09/24/2025 6:37 PM SOFTWARE LEAD GLUCOSE - POINT OF CARE Routine 09/24/2025 4:04 PM SOFTWARE LEAD GLUCOSE - POINT OF CARE Routine 09/24/2025 12:16 PM SOFTWARE LEAD GLUCOSE - POINT OF CARE Routine 09/24/2025 9:28 AM SOFTWARE LEAD CBC W/O DIFFERENTIAL Routine 09/24/2025 3:58 AM SOFTWARE LEAD BASIC METABOLIC PANEL (CALCIUM TOTAL) Routine 09/24/2025 3:58 AM SOFTWARE LEAD GLUCOSE - POINT OF CARE Routine 09/23/2025 8:29 PM SOFTWARE LEAD GLUCOSE - POINT OF CARE Routine 09/23/2025 4:23 PM SOFTWARE LEAD GLUCOSE - POINT OF CARE Routine 09/23/2025 12:31 PM SOFTWARE LEAD ERYTHROCYTE SEDIMENTATION RATE Routine 09/22/2025 11:39 PM SOFTWARE LEAD CBC W/O DIFFERENTIAL Routine 09/22/2025 11:39 PM SOFTWARE LEAD BASIC METABOLIC PANEL (CALCIUM TOTAL) Routine 09/22/2025 11:39 PM SOFTWARE LEAD GLUCOSE - POINT OF CARE Routine 09/22/2025 10:06 PM SOFTWARE LEAD GLUCOSE - POINT OF CARE Routine 09/22/2025 9:09 PM SOFTWARE LEAD HEMODIALYSIS INPATIENT Routine 09/22/2025 5:38 PM SOFTWARE LEAD GLUCOSE - POINT OF CARE Routine 09/22/2025 4:00 PM SOFTWARE LEAD GLUCOSE - POINT OF CARE Routine 09/22/2025 11:54 AM SOFTWARE LEAD GLUCOSE - POINT OF CARE Routine 09/22/2025 8:06 AM SOFTWARE LEAD CBC W/O DIFFERENTIAL Routine 09/22/2025 4:37 AM SOFTWARE LEAD BASIC METABOLIC PANEL (CALCIUM TOTAL) Routine 09/22/2025 4:37 AM SOFTWARE LEAD GLUCOSE - POINT OF CARE Routine 09/21/2025 8:34 PM SOFTWARE LEAD GLUCOSE - POINT OF CARE Routine 09/21/2025 12:23 PM SOFTWARE LEAD GLUCOSE - POINT OF CARE Routine 09/21/2025 7:46 AM SOFTWARE LEAD HEPATITIS B SURFACE ANTIBODY QUANT STAT 09/21/2025 6:27 AM SOFTWARE LEAD HEPATITIS B SURFACE ANTIGEN W RFLX CONFIRMATION STAT 09/21/2025 6:27 AM SOFTWARE LEAD LEX BLOOD SCREEN W/REFLEX TITER AM Draw 09/21/2025 4:36 AM SOFTWARE LEAD SS-A/SS-B (SJOGREN'S) ANTIBODY PANEL AM Draw 09/21/2025 4:36 AM SOFTWARE LEAD ANCA VASCULITIS PANEL AM Draw 09/21/2025 4:36 AM SOFTWARE LEAD C-REACTIVE PROTEIN AM Draw 09/21/2025 4: 36 AM SOFTWARE LEAD VITAMIN D 25-HYDROXY AM Draw 09/21/2025 4:36 AM SOFTWARE LEAD VITAMIN D 1,25 DIHYDROXY AM Draw 09/21/2025 4:36 AM SOFTWARE LEAD PTH RELATED PEPTIDE AM Draw 09/21/2025 4 :36 AM SOFTWARE LEAD BASIC METABOLIC PANEL (CALCIUM TOTAL) Routine 09/21/2025 4:36 AM SOFTWARE LEAD CALCIUM IONIZED WHOLE BLOOD AM Draw 09/21/2025 4:35 AM SOFTWARE LEAD XR ABDOMEN KUB PORTABLE STAT 09/20/2025 11:44 PM SOFTWARE LEAD Ischemic stroke (HCC) GLUCOSE - POINT OF CARE Routine 09/20/2025 11:06 PM SOFTWARE LEAD GLUCOSE - POINT OF CARE Routine 09/20/2025 9:07 PM SOFTWARE LEAD GLUCOSE - POINT OF CARE Routine 09/20/2025 6:24 PM SOFTWARE LEAD HEMODIALYSIS INPATIENT Routine 09/20/2025 4:36 PM SOFTWARE LEAD GLUCOSE - POINT OF CARE Routine 09/20/2025 4:21 PM SOFTWARE LEAD GLUCOSE - POINT OF CARE Routine 09/20/2025 3:51 PM SOFTWARE LEAD HEMODIALYSIS INPATIENT Routine 09/20/2025 2:56 PM SOFTWARE LEAD IR CAROTID CEREBRAL ANGIOGRAM STAT 09/20/2025 11:28 AM SOFTWARE LEAD Ischemic stroke (HCC) XR CHEST 1VW Routine 09/20/2025 9:10 AM SOFTWARE LEAD ESRD (end stage renal disease) (HCC) GLUCOSE - POINT OF CARE Routine 09/20/2025 8:09 AM SOFTWARE LEAD TROPONIN-I HIGH SENSITIVE REFLEX 1HOUR Timed 09/20/2025 5:42 AM SOFTWARE LEAD PTH INTACT W/O CALCIUM STAT 09/20/2025 4:12 AM SOFTWARE LEAD PHOSPHORUS BLOOD STAT 09/20/2025 4:12 AM SOFTWARE LEAD MAGNESIUM BLOOD STAT 09/20/2025 4:12 AM SOFTWARE LEAD CBC W AUTO DIFFERENTIAL STAT 09/20/2025 4:12 AM SOFTWARE LEAD COMPREHENSIVE METABOLIC PANEL STAT 09/20/2025 4:12 AM SOFTWARE LEAD HEMOGLOBIN A1C Routine 09/20/2025 4:12 AM SOFTWARE LEAD LIPID PROFILE Routine 09/20/2025 4:12 AM SOFTWARE LEAD TROPONIN-I HIGH SENSITIVE BASELINE + 1HR STAT 09/20/2025 4:12 AM SOFTWARE LEAD CBC W/O DIFFERENTIAL Routine 09/20/2025 4:12 AM SOFTWARE LEAD BASIC METABOLIC PANEL (CALCIUM TOTAL) Routine 09/20/2025 4:[address] HEAD WO CONTRAST STAT 09/19/2025 1 1:52 PM SOFTWARE LEAD Ischemic stroke (HCC) Acute encephalopathy PAP IMAGE-GUIDED W HPV+CT/NG+TRICH STAT 05/06/2025 3:32 PM CDT Vaginal bleeding Uterine mass HPV PANEL STAT 05/06/2025 3:32 PM CDT Vaginal bleeding Uterine mass HEPATITIS C AB SCREEN RFLX NAAT QUANT Routine 05/03/2025 4:28 PM CDT from Last 3 Months or Most Recently Relevant to Health Maintenance Results * (ABNORMAL) GLUCOSE - POINT OF CARE (09/30/2025 9:06 PM SOFTWARE LEAD) Only the most recent of43 resultswithin the time period is included. Pathologist [facility] Glucose WB/POC 198(H) 70 - 99 mg/dL 09/30/2025 9:08 PM SOFTWARE LEAD [facility] Specimen Type Arterial/C apillary 09/30/2025 9:08 PM SOFTWARE LEAD [facility] Blood BLOOD SPECIMEN / Unknown 09/30/2025 9:06 PM SOFTWARE LEAD 09/30/2025 9:08 PM SOFTWARE LEAD us Cherelle Billadeau DO LAB - POINT OF CARE ORDERABL ES Final Result [facility] [address] [address], [facility] [phone] * (ABNORMAL) CBC W/O DIFFERENTIAL (09/30/2025 6:51 PM SOFTWARE LEAD) Only the most recent of11 resultswithin the time period is included. Pathologist [facility] WBC 14.5(H) 4.0 - 10.7 x10E9/L 09/30/2025 8:01 PM [facility] RBC Count 4.77 3.90 - 5.20 x10E12/L 09/30/2025 8:01 PM [facility] Hemoglobin 13.8 11.9 - 15.8 g/dL 09/30/2025 8:01 PM [facility] Hematocrit 42.5 34.8 - 46.1 % 09/30/2025 8:01 PM [facility] MCV 89.1 80.0 - 98.0 fL 09/30/2025 8:01 PM [facility] MCH 28.9 26.7 - 33.6 pg 09/30/2025 8:01 PM [facility] MCHC 32.5 31.7 - 36.3 g/dL 09/30/2025 8:01 PM [facility] RDW-CV 15.1(H) 11.3 - 14.8 % 09/30/2025 8:01 PM [facility] Platelet Count 265 150 - 420 x10E9/L 09/30/2025 8:01 PM [facility] MPV 11.6(H) 7.8 - 11.4 fL 09/30/2025 8:01 PM [facility] Blood BLOOD SPECIMEN / Unknown Lab Venipuncture / Unknown 09/30/2025 6:51 PM SOFTWARE LEAD 09/30/2025 7:53 PM SOFTWARE LEAD Columba Blanc MD LAB - HEMATOLOGY ORDERABLES Final Result [facility] [address] [place] [address], [facility] [phone] * (ABNORMAL) BASIC METABOLIC PANEL (CALCIUM TOTAL) (09/30/2025 6:51 PM SOFTWARE LEAD) Only the most recent of12 resultswithin the time period is included. Pathologist [facility] BUN 45(H) 7 - 26 mg/dL 09/30/2025 8:49 PM [facility] Creatinine 8.94(H) 0.56 - 0.96 mg/dL 09/30/2025 8:49 PM [facility] Sodium 136 136 - 145 mmol/L 09/30/2025 8:49 PM [facility] Potassium 4.5 3.5 - 4.5 mmol/L 09/30/2025 8:49 PM [facility] Chloride 97(L) 98 - 107 mmol/L 09/30/2025 8:49 PM [facility] CO2 19(L) 22 - 29 mmol/L 09/30/2025 8:49 PM [facility] Glucose 184(H) 70 - 99 mg/dL 09/30/2025 8:49 PM [facility] Calcium 11.1(H) 8.4 - 10.2 mg/dL 09/30/2025 8:49 PM [facility] Anion Gap 20(H) 6 - 16 09/30/2025 8:49 PM [facility] BUN/Creatinine Ratio 5(L) 7 - 23 09/30/2025 8:49 PM [facility] Osmolality Calculated 298(H) 275 - 295 mOsm/kg 09/30/2025 8:49 PM [facility] eGFR by CKD-EPI 4(L) >=90 mL/min/1.7 3 m2 09/30/2025 8:49 PM [facility] Comment:Estimated Glomerular Filtration Rate (eGFR) calculated using the CKD-EPI Creatinine Equation (2020), per the National Kidney Foundation and [place] Society of Nephrology recommendations. Blood BLOOD SPECIMEN / Unknown Lab Venipuncture / Unknown 09/30/2025 6:51 PM SOFTWARE LEAD 09/30/2025 7:36 PM [facility] us Columba Blacn MD LAB - CHEMISTRY ORDERABLES F inal Result [facility] [address] [place] [address], [facility] [phone] * EKG 12-Lead (09/25/2025 9:34 AM [facility]) Ventricular Rate 93 BPM [facility] Atrial Rate 93 BPM [facility] P-R Interval 198 ms [facility] QRS Duration ms 78 ms [facility] Q-T Interval ms 350 ms [facility] QTC Calculation (Bezet) 435 ms [facility] Calculated P Slaughter 64 degrees [facility] Calculated R Slaughter 24 degrees [facility] Calculated T Slaughter 48 degrees [facility] Interpretation EKG NORMAL SINUS RHYTHM LOW VOLTAGE QRS CANNOT RULE OUT INFERIOR INFARCT , AGE UNDETERMINED ABNORMAL ECG NO PREVIOUS ECGS AVAILABLE Confirmed by ARINA SINGH, THERESA SCHNEIDER ([id number]) on 09/29/2025 8:58:47 PM [facility] MUSE 09/25/2025 9:34 AM SOFTWARE LEAD 09/29/2025 8:58 PM SOFTWARE LEAD Cherelle Islas DO ECG ORDERABLES Edited Resul t - Final [facility] * ERYTHROCYTE SEDIMENTATION RATE (09/22/2025 11:39 PM SOFTWARE LEAD) Pathologist [facility] Erythrocyte Sedimentation Rate Westergren 18 0 - 30 MM/HR 09/23/2025 12:21 AM [facility] Blood BLOOD SPECIMEN / Unknown Lab Venipuncture / Unknown 09/22/2025 11:39 PM SOFTWARE LEAD 09/22/2025 11:54 PM SOFTWARE LEAD Columba Blanc MD LAB - HEMATOLOGY ORDERABLES Final Result [address] [address], [facility] [phone] * (ABNORMAL) HEPATITIS B SURFACE ANTIBODY QUANT (09/21/2025 6:27 AM SOFTWARE LEAD) Hepatitis B Virus Surface Antibody Reactive( A) Non-react nancy 09/21/2025 7:58 AM [facility] Comment: > 12 mIU/mL Hepatitis B surface Antibody (HBsAb). Reactive for HBsAb - individual is considered immune to Hepatitis B Virus infection. Hepatitis B Surface Antibody Quantitative 29.9(H) <8.0 mIU/mL 09/21/2025 7:58 AM [facility] Comment: Hepatitis B Surface Antibody Numeric Result Interpretation: Nonreactive: <8.0 mIU/mL Indeterminate: 8.0 - 12.0 mIU/mL Reactive: >12.0 mIU/mL Blood BLOOD SPECIMEN / Unknown Lab Venipuncture / Unknown 09/21/2025 6:27 AM SOFTWARE LEAD 09/21/2025 6:35 AM SOFTWARE LEAD Narrative [facility] - 09/21/2025 7:58 AM SOFTWARE LEAD This assay should not be used for blood, plasma, or tissue donor screening. This assay is not recommended for neonates born to HBV-infected or suspected HBV-infected mothers. Sierra Benson MD LAB - SEROLOGY ORDERABLES Fin al Result Performing Organization Address City/[facility]/ZIP Co de Phone Number [address] [address], [facility] [phone] * HEPATITIS B SURFACE ANTIGEN W RFLX CONFIRMATION (09/21/2025 6:27 AM SOFTWARE LEAD) Pathologist [facility] Hepatitis B Virus Surface Antigen Non-reacti ve Non-reacti ve 09/21/2025 7:58 AM [facility] Blood BLOOD SPECIMEN / Unknown Lab Venipuncture / Unknown 09/21/2025 6:27 AM SOFTWARE LEAD 09/21/2025 6:35 AM SOFTWARE LEAD Sierra Benson MD LAB - CHEMISTRY ORDERABLES Fi nal Result Performing Organization Address [facility] Co de Phone Number [address] [address], [facility] [phone] * ANCA VASCULITIS PANEL (09/21/2025 4:36 AM SOFTWARE LEAD) Myeloperoxidase Antibody 0 0 - 19 AU/mL 09/25/2025 6:22 AM SOFTWARE LEAD [facility] ([facility]) Comment: INTERPRETIVE INFORMATION: Myeloperoxidase Abs, IgG 19 AU/mL or Less ......... Negative 20-25 AU/mL .............. Equivocal 26 AU/mL or Greater ...... Positive Approximately 90% of patients with a P-ANCA pattern by IFA have antibodies specific for MPO. Serine Proteinase 3 IgG 0 0 - 19 AU/mL 09/25/2025 6:22 AM SOFTWARE LEAD [facility] ([facility]) Comment: INTERPRETIVE INFORMATION: Serine Proteinase 3, IgG 19 AU/mL or Less ........ Negative 20-25 AU/mL ............. Equivocal 26 AU/mL or Greater ..... Positive Approximately 85% of patients with a C-ANCA pattern by IFA have antibodies specific for PR3. ANCA Titer IFA <1:20 <1:20 09/25/2025 6:22 AM SOFTWARE LEAD [facility] ([facility]) ANCA Pattern IFA None Detected None Detected 09/25/2025 6:22 AM SOFTWARE LEAD [facility]) Comment: INTERPRETIVE INFORMATION: ANCA IFA Pattern Neutrophil Cytoplasmic Antibodies (C-ANCA = granular cytoplasmic staining, P-ANCA = perinuclear staining) are found in the serum of over 90 percent of patients with certain necrotizing systemic vasculitides, and usually in less than 5 percent of patients with collagen vascular disease or arthritis. Performed By: [facility] [address] [place], [place] [id number] Bilingual Instructor: Joao Luis MD, PhD CLIA Number: [id number] Blood BLOOD SPECIMEN / Unknown Lab Venipuncture / Unknown 09/21/2025 4:36 AM SOFTWARE LEAD 09/21/2025 4:36 AM SOFTWARE LEAD Columba Blanc MD LAB - CHEMISTRY ORDERABLES F inal Result [facility]) [address] [place] [id number] [place] [address] * (ABNORMAL) C-REACTIVE PROTEIN (09/21/2025 4:36 AM SOFTWARE LEAD) C-Reactive Protein 0.8(H) <=0.5 mg/dL 09/21/2025 5:54 AM SOFTWARE LEAD [facility] Blood BLOOD SPECIMEN / Unknown Lab Venipuncture / Unknown 09/21/2025 4:36 AM SOFTWARE LEAD 09/21/2025 4:36 AM SOFTWARE LEAD Columba Blanc MD LAB - CHEMISTRY ORDERABLES F inal Result [facility] [address] [place] [address], [facility] [phone] * LEX BLOOD SCREEN W/REFLEX TITER (09/21/2025 4:36 AM SOFTWARE LEAD) LEX IgG None Detected None Detected 09/24/2025 6:59 AM SOFTWARE LEAD [facility] ([facility]) Comment: No Anti-Nuclear Antibodies (LEX) detected by ABHIJEET. No further testing will be performed. If suspicion of connective tissue disease is strong and LEX ABHIJEET is negative, consider testing for LEX by IFA ([id number]). INTERPRETIVE INFORMATION: Anti-Nuclear Antibodies (LEX), IgG by ABHIJEET Antinuclear Antibodies (LEX), IgG by ABHIJEET: LEX specimens are screened using enzyme-linked immunosorbent assay (ABHIJEET) methodology. All ABHIJEET results reported as Detected are further tested by indirect fluorescent assay (IFA) using HEp-2 substrate with an IgG-specific conjugate. The LEX ABHIJEET screen is designed to detect antibodies against dsDNA, histones, SS-A (Ro), SS-B (La), Newman, Newman/FENCE MAKER, Scl-70, Erica-1, centromeric proteins, other antigens extracted from the HEp-2 cell nucleus. LEX ABHIJEET assays have been reported to have lower sensitivities than LEX IFA for systemic autoimmune rheumatic diseases (SARD). Negative results do not necessarily rule out SARD. Performed By: [facility] [address] [place] [address] Bilingual Instructor: Joao Luis MD, PhD CLIA Number: [id number] Blood BLOOD SPECIMEN / Unknown Lab Venipuncture / Unknown 09/21/2025 4:36 AM SOFTWARE LEAD 09/21/2025 4:36 AM SOFTWARE LEAD Columba Blanc MD LAB - CHEMISTRY ORDERABLES F inal Result [facility]) [address] * SS-A/SS-B (SJOGREN'S) ANTIBODY PANEL (09/21/2025 4:36 AM SOFTWARE LEAD) Sjogren's Antibodies (SSA) <0.2 0.0 - 0.9 AI 09/23/2025 2:10 PM SOFTWARE LEAD [facility] ([facility]) Sjogren's Antibodies (SSB) <0.2 0.0 - 0.9 AI 09/23/2025 2:10 PM SOFTWARE LEAD [facility] ([facility]) Blood BLOOD SPECIMEN / Unknown Lab Venipuncture / Unknown 09/21/2025 4:36 AM SOFTWARE LEAD 09/21/2025 4:36 AM SOFTWARE LEAD Narrative [facility] ([facility]) - 09/23/2025 2:10 PM SOFTWARE LEAD Performed at: - [facility] [address] [place], [place] [id number] Quality Consultant: Charbel Gooden PhD, Phone: [phone] Columba Blanc MD LAB - CHEMISTRY ORDERABLES F inal Result Performing Organization Address [facility] Co de Phone Number [facility]) [address] [place] [address] * (ABNORMAL) PTH RELATED PEPTIDE (09/21/2025 4:36 AM SOFTWARE LEAD) [facility] Signature PTH Related Peptide 6.0(H) 0.0 - 3.4 pmol/L 09/29/2025 9:33 AM SOFTWARE LEAD [facility] ([facility]) Comment: INTERPRETIVE INFORMATION: Parathyroid Hormone-Related Peptide This test was developed and its performance characteristics determined by [facility]. It has not been cleared or approved by the US Food and Drug Administration. This test was performed in a CLIA certified laboratory and is intended for clinical purposes. Performed By: [facility] [address] [place] [id number] Bilingual Instructor: Joao Luis MD, PhD CLIA Number: [id number] Blood BLOOD SPECIMEN / Unknown Lab Venipuncture / Unknown 09/21/2025 4:36 AM SOFTWARE LEAD 09/21/2025 4:36 AM SOFTWARE LEAD Columba Blanc MD LAB - CHEMISTRY ORDERABLES F inal Result Performing Organization Address City/[facility] Co de Phone Number [facility]) [address] [place] [address] * (ABNORMAL) VITAMIN D 1,25 DIHYDROXY (09/21/2025 4:36 AM SOFTWARE LEAD) Vitamin D, 1,25 Dihydroxy 14.1(L) 19.9 - 79.3 pg/mL 09/23/2025 2:06 PM SOFTWARE LEAD [facility] ([facility]) Comment: INTERPRETIVE INFORMATION: Vitamin D, 1,25-Dihydroxy This test is primarily indicated during patient evaluation for hypercalcemia and renal failure. A normal result does not rule out Vitamin D deficiency. The recommended test for diagnosing Vitamin D deficiency is Vitamin D 25-hydroxy. Performed By: [place] [address] Bilingual Instructor: Joao Luis MD, PhD CLIA Number: [id number] Blood BLOOD SPECIMEN / Unknown Lab Venipuncture / Unknown 09/21/2025 4:36 AM SOFTWARE LEAD 09/21/2025 4:36 AM SOFTWARE LEAD Columba Blanc MD LAB - CHEMISTRY ORDERABLES F inal Result [facility]) [address] [place] [address] * (ABNORMAL) VITAMIN D 25-HYDROXY (09/21/2025 4:36 AM SOFTWARE LEAD) Vitamin D, 25 Hydroxy 19.9(L) 30.0 - 80.0 ng/mL 09/21/2025 6:09 AM SOFTWARE LEAD [facility] Comment: The recommendations for 25-Hydroxy Vitamin [...] Lab Venipuncture / Unknown 09/21/2025 4:36 AM SOFTWARE LEAD 09/21/2025 4:36 AM SOFTWARE LEAD Columba Blanc MD LAB - CHEMISTRY ORDERABLES F inal Result Performing Organization Address City/[facility]/ZIP Co de Phone Number [address] [address], [place] [phone] * CALCIUM IONIZED WHOLE BLOOD (09/21/2025 4:35 AM SOFTWARE LEAD) Calcium Ionized 1.32 mmol/L 09/21/2025 5:13 AM SOFTWARE LEAD [facility] pH 7.38 7.35 - 7.45 pH 09/21/2025 5:13 AM SOFTWARE LEAD [facility] Ionized Calcium pH Adjusted 1.31 1.19 - 1.34 mmol/L 09/21/2025 5:13 AM SOFTWARE LEAD [facility] Blood BLOOD SPECIMEN / Unknown Lab Venipuncture / Unknown 09/21/2025 4:35 AM SOFTWARE LEAD 09/21/2025 4:35 AM SOFTWARE LEAD Columba Blanc MD LAB - CHEMISTRY ORDERABLES F inal Result Performing Organization Address [facility] Co de Phone Number [address] [address], [place] [phone] * XR Abdomen Kub Portable (09/20/2025 11:44 PM SOFTWARE LEAD) Anatomical Region Laterality Modality Abdomen Digital Radiogra phy 09/21/2025 11:5 7 PM SOFTWARE LEAD Impressions 09/21/2025 11:57 PM SOFTWARE LEAD Impression: Nasogastric tube is in the stomach. The visualized bowel gas pattern is normal. The visualized lung bases are clear. No displaced fracture. > Interpreting Provider: Venancio Varela MD on 09/21/2025 11:57 PM Narrative 09/21/2025 11:57 PM SOFTWARE LEAD PROCEDURE: XR ABDOMEN KUB PORTABLE, DATE/TIME OF EXAM: 09/20/2025 11:44 PM, LOCATION [facility] INDICATION: I63.9: Ischemic stroke (HCC) ADDITIONAL CLINICAL INFORMATION: Ordering Provider Reason For Exam: NGT placement Technologist Note: Additional: COMPARISON: None. Procedure Note Venancio Varela MD - 09/21/2025 PROCEDURE: XR ABDOMEN KUB PORTABLE, DATE/TIME OF EXAM: 1:44 PM, LOCATION [facility] INDICATION: I63.9: Ischemic stroke (HCC) ADDITIONAL CLINICAL INFORMATION: Ordering Provider Reason For Exam: NGT placement Technologist Note: Additional: COMPARISON: None. Impression: Nasogastric tube is in the stomach. The visualized bowel gas pattern is normal. The visualized lung bases are clear. No displaced fracture. > Interpreting Provider: Venancio Varela MD on 09/21/2025 11:57 PM us Columba Blanc MD DIAGNOSTIC IMAGING ORDERABLE S Final Result * IR Carotid Cerebral Angiogram (09/20/2025 11:28 AM SOFTWARE LEAD) Anatomical Region Laterality Modality Head X-Ray Angiograph y 09/20/2025 1:54 PM SOFTWARE LEAD Impressions 09/20/2025 3:49 PM SOFTWARE LEAD Impression: - Multiple alternating areas of moderate to severe stenosis affecting anterior and posterior circulation following a beading pattern. This could represent severe intracranial atherosclerosis or [place] vasculitis, recommend clinical correlation. > Dictated by Therapist Occupational I, Omar Jack MD have personally reviewed and interpreted this examination/study. > Interpreting Provider: Omar Jack MD on 09/20/2025 3:49 PM Narrative 09/20/2025 3:49 PM SOFTWARE LEAD DATE/TIME OF EXAM: 09/20/2025 10:00 AM Procedure: Diagnostic Catheter Cerebral Angiogram Comparison Study: Brain and neck MRA from 09/19/2025 History: 65 yo woman admitted for an acute infarct in left frontal lobe. CTA shows severe multiple areas of stenosis in anterior and posterior circulation. Plan cerebral angiogram for evaluation of severe intracranial vasculopathy. Jewelry Drilling Machine Operator: Dr. Jack First Aid Director(s): Idris Blanc MD; Santo Hong MD. Vessels: [...] this adult patient was ordered by the mucking machine operator, administered intravenously in my presence, and [...] patient evaluation, please review the evaluation in [facility]. For details on monitored clinical parameters during the intra-service sedation time, please review the procedure nurse documentation in [facility]. Procedural detail: The risks, benefits, and [...] Following a series of exchanges, a 5 Fijian 11 cm Glidesheath slender was placed in the radial artery. A radial angiogram was performed through the sheath. A spasmolytic cocktail containing 3000u heparin, 2.5mg verapamil, and 200mcg of nitroglycerin was administered. A 5 Fijian Glidecath Rosas 2 diagnostic catheter along with [...] caliber posterior communicating artery suggestive of a DOCUMENT ANALYST variant. The middle cerebral artery has a [...] caliber posterior communicating artery suggestive of a DOCUMENT ANALYST variant. The middle cerebral artery has a [...] cerebral angiogram for evaluation of severe intracranialvasculopathy. Jewelry Drilling Machine Operator: Dr. Jack First Aid Director(s): Idris Blanc MD; Santo Hong MD. Vessels: [...] this adult patient was ordered by the mucking machine operator, administered intravenously in my presence, and [...] patient evaluation, please review the evaluation in [facility]. For details on monitored clinical parameters during the intra-servicesedation time, please review the procedure nurse documentation in [facility]. Procedural detail: The risks, benefits, and [...] Following a series of exchanges, a 5 Fijian 11 cm Glidesheath slender was placed in the radial artery. A radial angiogram wasperformed through the sheath. A spasmolytic cocktail containing 3000u heparin,2.5mg verapamil, and 200mcg of nitroglycerin was administered. A 5 Fijian Glidecath Rosas 2 diagnostic catheter along with [...] caliber posterior communicating artery suggestive of a DOCUMENT ANALYST variant. The middle cerebral artery has adiffuse [...] caliber posterior communicating artery suggestive of a DOCUMENT ANALYST variant. The middle cerebral artery has anormal [...] This could represent severe intracranial atherosclerosis or [place] vasculitis, recommend clinical correlation. > Dictated by Therapist Occupational I, Omar Jack MD have personally reviewed and interpreted this examination/study. > Interpreting Provider: Omar Jack MD on 09/20/2025 3:49 PM us Tae Fisher MD IR ORDERABLES Final Result * XR Chest 1Vw (09/20/2025 9:10 AM SOFTWARE LEAD) Anatomical Region Laterality Modality Chest Digital Radiogra phy 09/20/2025 9:24 AM SOFTWARE LEAD Narrative 09/20/2025 11:45 AM SOFTWARE LEAD PROCEDURE: XR CHEST 1VW, DATE/TIME OF EXAM: 09/20/2025 9:10 AM, LOCATION [facility] INDICATION: N18.6: ESRD (end stage renal disease) ([facility]) ADDITIONAL CLINICAL INFORMATION: Ordering Provider Reason For [...] thorax. > Dictated by Vargas Bach M.D., (enrollment services vice president). > Dictated by Therapist Occupational Ghulam Coles MD have personally reviewed and interpreted this examination/study. > Interpreting Provider: Ghulma Boykin MD on 09/20/2025 11:45 AM Procedure Note Ghulam Boykin MD - 09/20/2025 PROCEDURE: XR CHEST 1VW, DATE/TIME OF EXAM: 09/20/2025 9:10 AM, LOCATION [facility] INDICATION: N18.6: ESRD (end stage renal disease) ([facility]) ADDITIONAL CLINICAL INFORMATION: Ordering Provider Reason For [...] thorax. > Dictated by Vargas Bach M.D., (enrollment services vice president). > Dictated by Therapist Occupational Ghulam Coles MD have personally reviewed and interpreted this examination/study. > Interpreting Provider: Ghulam Boykin MD on 09/20/2025 11:45 AM us Tae Fisher MD DIAGNOSTIC IMAGING ORDERABLE S Final Result * TROPONIN-I HIGH SENSITIVE REFLEX 1HOUR (09/20/2025 5:42 AM SOFTWARE LEAD) Troponin I High Sensitive 13 <=14 ng/L 09/20/2025 6:53 AM SOFTWARE LEAD [facility] Delta Troponin I HS 0 <6 ng/L 09/20/2025 6:53 AM SOFTWARE LEAD [facility] Blood BLOOD SPECIMEN / Unknown Lab Venipuncture / Unknown 09/20/2025 5:42 AM SOFTWARE LEAD 09/20/2025 6:10 AM SOFTWARE LEAD us Tae Fisher MD LAB - CHEMISTRY ORDERABLES F inal Result [address] [address], [place] [phone] * TROPONIN-I HIGH SENSITIVE BASELINE + 1HR (09/20/2025 4:12 AM SOFTWARE LEAD) Pathologist [facility] Troponin I High Sensitive 13 <=14 ng/L 09/20/2025 5:48 AM SOFTWARE LEAD [facility] Blood BLOOD SPECIMEN / Unknown Lab Venipuncture / Unknown 09/20/2025 4:12 AM SOFTWARE LEAD 09/20/2025 5:11 AM SOFTWARE LEAD us Tae Fisher MD LAB - CHEMISTRY ORDERABLES F inal Result [address] [address], [place] [phone] * (ABNORMAL) PTH INTACT W/O CALCIUM (09/20/2025 4:12 AM SOFTWARE LEAD) PTH Intact 1,836.5(H) 8.0 - 77.0 pg/mL 09/20/2025 5:51 AM SOFTWARE LEAD [facility] Blood BLOOD SPECIMEN / Unknown Lab Venipuncture / Unknown 09/20/2025 4:12 AM SOFTWARE LEAD 09/20/2025 4:47 AM SOFTWARE LEAD Tae Fisher MD LAB - CHEMISTRY ORDERABLES F inal Result Performing Organization Address City/[facility]/ZIP Co de Phone Number [address] [address], [facility] [phone] * HEMOGLOBIN A1C (09/20/2025 4:12 AM SOFTWARE LEAD) Hemoglobin A1c 5.0 <=5.6 % 09/20/2025 9:16 AM [facility] Estimated Average Glucose 97 mg/dL 09/20/2025 9:16 AM [facility] Comment: HbA1c Interpretation: Normal : < 5.7% Pre-diabetes: 5.7-6.4% Diabetes: Equal to or greater than 6.5% Test results diagnostic of diabetes should be repeated for confirmation. Treatment target values recommended by ADA and other clinical organizations should be used to evaluate metabolic control in patients. Reference: [place] [employer], Standards of Care in Diabetes -2020 In patients 70 years and older consider HbA1c target range of 7.0-7.5% (Reference: Yo Steinberg et al. JAMDA. 2012) The Sebia assay for the measurement of HbA1c is a National Glycohemoglobin Standardization Program (NGSP) certified method. Blood BLOOD SPECIMEN / Unknown Lab Venipuncture / Unknown 09/20/2025 4:12 AM SOFTWARE LEAD 09/20/2025 5:06 AM SOFTWARE LEAD Tae Fisher MD LAB - CHEMISTRY ORDERABLES F inal Result Performing Organization Address City/[facility]/ZIP Co de Phone Number [address] [address], [facility] [phone] * (ABNORMAL) CBC W AUTO DIFFERENTIAL (09/20/2025 4:12 AM [facility] [facility] WBC 8.8 4.0 - 10.7 x10E9/L 09/20/2025 5:20 AM [facility] RBC Count 4.01 3.90 - 5.20 x10E12/L 09/20/2025 5:20 AM [facility] Hemoglobin 11.4(L) 11.9 - 15.8 g/dL 09/20/2025 5:20 AM [facility] Hematocrit 35.5 34.8 - 46.1 % 09/20/2025 5:20 AM [facility] MCV 88.5 80.0 - 98.0 fL 09/20/2025 5:20 AM [facility] MCH 28.4 26.7 - 33.6 pg 09/20/2025 5:20 AM [facility] MCHC 32.1 31.7 - 36.3 g/dL 09/20/2025 5:20 AM [facility] RDW-CV 14.9(H) 11.3 - 14.8 % 09/20/2025 5:20 AM [facility] Platelet Count 312 150 - 420 x10E9/L 09/20/2025 5:20 AM [facility] MPV 10.5 7.8 - 11.4 fL 09/20/2025 5:20 AM [facility] Neutrophil % 55.8 41.0 - 74.0 % 09/20/2025 5:20 AM [facility] Lymphocyte % 29.5 17.0 - 47.0 % 09/20/2025 5:20 AM [facility] Monocyte % 10.7 3.0 - 11.0 % 09/20/2025 5:20 AM [facility] Eosinophil % 2.8 0.0 - 7.0 % 09/20/2025 5:20 AM [facility] Basophil % 0.9 0.0 - 1.6 % 09/20/2025 5:20 AM [facility] Immature Granulocytes % 0.3 0.0 - 1.0 % 09/20/2025 5:20 AM [facility] Neutrophil Absolute 4.91 1.60 - 7.50 x10E9/L 09/20/2025 5:20 AM [facility] Lymphocyte Absolute 2.60 1.00 - 4.40 x10E9/L 09/20/2025 5:20 AM [facility] Monocyte Absolute 0.94 0.15 - 1.00 x10E9/L 09/20/2025 5:20 AM [facility] Eosinophil Absolute 0.25 0.00 - 0.60 x10E9/L 09/20/2025 5:20 AM [facility] Basophil Absolute 0.08 0.00 - 0.13 x10E9/L 09/20/2025 5:20 AM [facility] Blood BLOOD SPECIMEN / Unknown Lab Venipuncture / Unknown 09/20/2025 4:12 AM SOFTWARE LEAD 09/20/2025 5:06 AM [facility] us Tae Fisher MD LAB - HEMATOLOGY ORDERABLES Final Result [facility] [address] [place] [address], [facility] [phone] * (ABNORMAL) COMPREHENSIVE METABOLIC PANEL (09/20/2025 4:12 AM [facility]) BUN 43(H) 7 - 26 mg/dL 09/20/2025 5:44 AM [facility] Creatinine 9.14(H) 0.56 - 0.96 mg/dL 09/20/2025 5:44 AM [facility] Sodium 140 136 - 145 mmol/L 09/20/2025 5:44 AM [facility] Potassium 3.7 3.5 - 4.5 mmol/L 09/20/2025 5:44 AM [facility] Chloride 95(L) 98 - 107 mmol/L 09/20/2025 5:44 AM [facility] CO2 29 22 - 29 mmol/L 09/20/2025 5:44 AM [facility] Glucose 69(L) 70 - 99 mg/dL 09/20/2025 5:44 AM [facility] Calcium 10.7(H) 8.4 - 10.2 mg/dL 09/20/2025 5:44 AM [facility] Protein Total 7.0 6.0 - 8.3 g/dL 09/20/2025 5:44 AM [facility] Albumin 3.5 3.4 - 5.0 g/dL 09/20/2025 5:44 AM [facility] Bilirubin Total 0.5 0.2 - 1.2 mg/dL 09/20/2025 5:44 AM [facility] Alkaline Phosphatase 114 40 - 150 U/L 09/20/2025 5:44 AM [facility] ALT 13 5 - 55 U/L 09/20/2025 5:44 AM [facility] AST 14 5 - 34 U/L 09/20/2025 5:44 AM [facility] Anion Gap 16 6 - 16 09/20/2025 5:44 AM [facility] BUN/Creatinine Ratio 5(L) 7 - 23 09/20/2025 5:44 AM [facility] Osmolality Calculated 299(H) 275 - 295 mOsm/kg 09/20/2025 5:44 AM [facility] Albumin/Globulin Ratio 1.0(L) 1.1 - 2.3 09/20/2025 5:44 AM [facility] eGFR by CKD-EPI 4(L) >=90 mL/min/1.7 3 m2 09/20/2025 5:44 AM [facility] Comment:Estimated Glomerular Filtration Rate (eGFR) calculated using the CKD-EPI Creatinine Equation (2020), per the National Kidney Foundation and [place] [employer]ph[employer] recommendations. Blood BLOOD SPECIMEN / Unknown Lab Venipuncture / Unknown 09/20/2025 4:12 AM SOFTWARE LEAD 09/20/2025 5:11 AM SOFTWARE LEAD Tae Fisher MD LAB - CHEMISTRY ORDERABLES F inal Result Performing Organization Address City/[facility]/ZIP Co de Phone Number [address] [address], [facility] [phone] * (ABNORMAL) PHOSPHORUS BLOOD (09/20/2025 4:12 AM SOFTWARE LEAD) Phosphorus 6.6(H) 2.9 - 5.1 mg/dL 09/20/2025 5:38 AM [facility] Blood BLOOD SPECIMEN / Unknown Lab Venipuncture / Unknown 09/20/2025 4:12 AM SOFTWARE LEAD 09/20/2025 5:10 AM SOFTWARE [facility] Tae Fisher MD LAB - CHEMISTRY ORDERABLES F inal Result [address] [place] [address], [facility] [phone] * MAGNESIUM BLOOD (09/20/2025 4:12 AM SOFTWARE [facility]) Magnesium 2.2 1.6 - 2.6 mg/dL 09/20/2025 5:44 AM [facility] Blood BLOOD SPECIMEN / Unknown Lab Venipuncture / Unknown 09/20/2025 4:12 AM SOFTWARE LEAD 09/20/2025 5:11 AM SOFTWARE [facility] us Tae Fisher MD LAB - CHEMISTRY ORDERABLES F inal Result [address] [address], [facility] [phone] * (ABNORMAL) LIPID PROFILE (09/20/2025 4:12 AM SOFTWARE LEAD) Cholesterol Total 232(H) <200 mg/dL 09/20/2025 5:44 AM [facility] HDL 65 >40 mg/dL 09/20/2025 5:44 AM [facility] Comment: ATP III Classification of HDL Cholesterol: <40 mg/dL: Considered a major risk factor. >60 mg/dL: Considered a negative risk factor. LDL Calculated 148(H) <100 mg/dL 09/20/2025 5:44 AM [facility] Comment: ATP III Classification of LDL Cholesterol: <100 mg/dL: Optimal 100 - 129 mg/dL: Near Optimal/Above Optimal 130 - 159 mg/dL: Borderline High 160 - 189 mg/dL: High >190 mg/dL: Very High LDL is calculated using the Friedewald equation. Triglycerides 95 <150 mg/dL 09/20/2025 5:44 AM [facility] Comment: ATP III Classification of Triglycerides: <150 mg/dL: Normal 150 - 199 mg/dL: Borderline High 200 - 400 mg/dL: High >500 mg/dL: Very High Blood BLOOD SPECIMEN / Unknown Lab Venipuncture / Unknown 09/20/2025 4:12 AM SOFTWARE LEAD 09/20/2025 5:11 AM SOFTWARE [facility] us Tae Fisher MD LAB - CHEMISTRY ORDERABLES F inal Result [facility] [address] [place] [address], [facility] [phone] * CT HEAD WO CONTRAST (09/19/2025 11:52 PM SOFTWARE LEAD) Anatomical Region Laterality Modality Head Computed Tomogra phy 09/19/2025 11:5 6 PM SOFTWARE LEAD Impressions 09/20/2025 12:15 AM SOFTWARE LEAD IMPRESSION: 1.No CT evidence of acute hemorrhage, herniation, or large territorial infarct. 2.Please note CT is insensitive to small infarcts particularly in the posterior fossa, if there is continued clinical concern MRI can be obtained. 3.Encephalomalacia in the left shin radiata is new new since 04/30/2025. Chronic right DOCUMENT ANALYST territory infarct. > Dictated by Alberto David MD, (enrollment services vice president). > Dictated by Alberto David MD 09/19/2025 11:56 PM > Dictated by Therapist Occupational I, Tra Russell MD have personally reviewed and interpreted this examination/study. > Interpreting Provider: Tra Russell MD on 09/20/2025 12:15 AM Narrative 09/20/2025 12:15 AM SOFTWARE LEAD PROCEDURE: CT HEAD WO CONTRAST, DATE/TIME OF EXAM: 09/19/2025 11:52 PM, LOCATION [facility] INDICATION: I63.9: Ischemic stroke (HCC) G93.40: [...] is seen. Chronic infarct in the right DOCUMENT ANALYST territory. Additional encephalomalacia in the left shin [...] CONTRAST, DATE/TIME OF EXAM: 09/19/2025 11:52PM, LOCATION [facility] INDICATION: I63.9: Ischemic stroke (HCC) G93.40: [...] is seen. Chronic infarct in the right DOCUMENT ANALYST territory. Additional encephalomalacia in the left shin [...] radiata is new new since04/30/2025. Chronic right DOCUMENT ANALYST territory infarct. > Dictated by Alberto David MD, (enrollment services vice president). > Dictated by Alberto David MD 09/19/2025 11:56 PM > Dictated by Therapist Occupational I, Tra Russell MD have personally reviewed and interpreted this examination/study. > Interpreting Provider: Tra Russell MD on 09/20/2025 12:15 AM us Tae Fisher MD CT ORDERABLES Final Result * PAP IMAGE-GUIDED W HPV+CT/NG+TRICH (05/06/2025 3:32 PM CDT) Case Report Gynecologic Cytology Report Case: [id number] Authorizing Provider: Gary Carballo DO Collected: 05/06/2025 03:32 PM Ordering Location: [address] Received: 05/07/2025 12:40 PM First Screen: Amrit Patino CT(ASCP) Specimen: THINPREP - IMAGE GUIDED, Cervix 05/08/2025 11:10 AM CDT [facility] LMP post menopausal 11:10 AM CDT [facility] Menstrual Status Postmenopausal 04/11 11:10 AM CDT [facility] Specimen Adequacy Satisfactory for evaluation, endocervical/trans formation zone component present. 05/08/2025 11:10 AM [facility]T [facility] Categorization Negative for intraepithelial lesion or malignancy. 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 05/08/2025 11:10 AM CDT [facility] at 1110 CDT Other Inflammation present. 05/08/2025 11:10 AM CDT [facility] Pap Footnote The Pap Smear is a screening test. False positive and false negative results occur. Negative results do not preclude abnormalities, thus clinical correlation is required. This specimen was evaluated by the ThinPrep Imaging System along with an additional manual rescreening by a manager registration and/or pathologist. 05/08/2025 11:10 AM CDT [facility] Embedded Images 11:10 AM CDT [facility] Pathology/Cytolo gy PART OF UTERINE CERVIX / Unknown 05/06/2025 3:32 PM CDT 05/07/2025 12:40 PM CDT Gary Carballo DO LAB - PATHOLOGY/CYTOLOGY ORDERA BLES Final Result [facility] [address] [place], [place] [id number] [place] [address] * HPV PANEL (05/06/2025 3:32 PM CDT) Pathologist [facility] High Risk HPV 16 NEGATIVE NEGATIVE 05/08/2025 5:32 AM CDT [facility] High Risk HPV 18 NEGATIVE NEGATIVE 05/08/2025 5:32 AM CDT [facility] High Risk HPV Other NEGATIVE NEGATIVE 05/08/2025 5:32 AM CDT [facility] Pathology/Cytolo gy PART OF UTERINE CERVIX / Unknown 05/06/2025 3:32 PM CDT 05/07/2025 2:05 PM CDT Narrative [facility] - 05/08/2025 5:32 AM CDT This [...] 56, 58, 59, 66, 68) without differentiation. us Gary Carballo DO LAB - MICROBIOLOGY ORDERABLES F inal Result [facility] [address] [place], [place] [address], [facility] [phone] * HEPATITIS C AB SCREEN RFLX NAAT QUANT (05/03/2025 4:28 PM CDT) Pathologist [facility] Hepatitis C Antibody Non-react nancy Non-reac tive 05/03/2025 6:39 PM CDT [facility] Comment:Hepatitis C Antibody screen indicates no [...] 4:28 PM CDT 05/03/2025 5:45 PM CDT us Ayla Inman MD LAB - CHEMISTRY ORD ERABLES Final Result [facility] [address] [place] [address], [facility] [phone] from Last 3 Months or Most Recently Relevant to Health Maintenance Insurance MEDICARE Advance Directives * NO CPR(DNR) NO INTUBATION (Latest Code Status on File) Date Activated Date Inactivated Comments 09/20/2025 9:06 AM 09/30/2025 10:53 PM * Full Code Date Activated Date Inactivated Comments 09/19/2025 10:23 PM 09/20/2025 9:06 AM * LIMITED RESUSCITATION-PRIOR AND AFTER ARREST Date Activated Date Inactivated Comments 04/28/2025 6:24 AM 05/13/2025 6:07 PM Question Answer Comments Limited Resuscitation: No Chest Compress ionNo Intubation, No Invasive Ventilation Care Teams House 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
--- OUTSIDE RECORDS SUMMARY | 2025-10-01 21:21 | XMS_ITS | Clinical Summary ---
Author Organization [facility] Address [facility] [place] [address] Care Team Providers Care Criminalist Technician Name Role Phone Monster Garza MD Primary Care Provider [phone] Allergies Active Allergy Reactions Criticality Noted Date Comments Lactose GI Upset Low 04/27/2025 Niacin GI Upset 04/15/2023 Medications carvedilol (COREG) 12.5 MG tablet Take 1 tablet (12.5 mg total) by mouth 2 (two) times daily. Active aspirin 81 MG chewable tablet Chew 1 tablet (81 mg total) by mouth daily. Active amLODIPine (NORVASC) 2.5 MG tablet Take 1 tablet (2.5 mg total) by mouth daily. Active clopidogrel (PLAVIX) 75 MG tablet Take 1 tablet (75 mg total) by mouth daily. Active folic acid (FOLVITE) 1 MG tablet Take 1 tablet (1 mg total) by mouth daily. Active atorvastatin (LIPITOR) 40 MG tablet Take 1 tablet (40 mg total) by mouth nightly at bedtime. Active venlafaxine XR (EFFEXOR-XR) 150 MG 24 hr capsule Take 1 capsule (150 mg total) by mouth daily. Active bisacodyl (DULCOLAX) [address] 1 suppository (10 mg total) rectally daily as needed for Constipation. Active Active Problems Problem Noted Date Diagnosed Date Metabolic encephalopathy 09/18/2025 Acute cardioembolic stroke 09/18/2025 Encounters Date Type Department Care Team Description 09/17/2025 6:02 PM CARDIAC SPECIALIST - 09/19/2025 9:35 PM [facility] Hospital Encounter [facility] [place] [address] Dong Shannon, Daljit Junior, Sujata Remy MD Altered Mental Status Discharge Disposition: Transfer to Acute Care Hospital 09/17/2025 Travel from Last 3 Months Social History Tobacco Use Types Packs/Day Years Used Date Smoking Tobacco: Never Smokeless Tobacco: Never Tobacco Cessation:Counseling Given: Not Answered Alcohol Use Standard Drinks/Week Comments Never 0 (1 standard drink = 0.6 oz pur e alcohol) Humiliation, Afraid, Rape, and Kick questionnair e Answer Date Recorded Within the last year, have y ou been afraid of your partner or ex-partner? No 09/18/2025 Within the last year, have y ou been humiliated or emotionally abused in other ways by your partner or ex-partner? No Within the last year, have y ou been kicked, hit, slapped, or otherwise physically hurt by your partner or ex-partner? No 09/18/2025 Within the last year, have y ou been raped or forced to have any kind of sexual activity by your partner or ex-partner? No 09/18/2025 Social Connection and Isolation Panel Answer Date Recorded In a typical week, how many times do you talk on the phone with family, friends, or neighbors? Patient declined 09/18/2025 How often do you get togethe r with friends or relatives? Patient declined 09/18/2025 How often do you attend muslim or yazidism serv ices? Patient declined 09/18/2025 Do you belong to any clubs o r organizations such as muslim groups, unions, fraternal or athletic groups, or school groups? Patient declined 09/18/2025 How often do you attend meet ings of the clubs or organizations you belong to? Patient declined 09/18/2025 Are you , , di vorced, , never , or living with a partner? Patient declined 09/18/2025 AUDIT-C Answer Date Recorded Q1: How often do you have a drink containing alcohol? Never 09/18/2025 Q2: How many drinks containi ng alcohol do you have on a typical day when you are drinking? Patient does not drink Q3: How often do you have si x or more drinks on one occasion? Never 09/18/2025 Overall Financial Resource Strain (CARDIA) Answe r Date Recorded How hard is it for you to pa y for the very basics like food, housing, medical care, and heating? Not hard at all 09/18/2025 [facility] - Occupational Stress Questionnaire Answer Date Recorded Do you feel stress - tense, restless, nervous, or anxious, or unable to sleep at night because your mind is troubled all the time - these days? Patient declined 09/18/2025 Exercise Vital Sign Answer Date Recorde d On average, how many days pe r week do you engage in moderate to strenuous exercise (like a brisk walk)? 2 days 09/18/2025 On average, how many minutes do you engage in exercise at this level? 30 min 09/18/2025 Hunger Vital Sign Answer Date Recorded Within the past 12 months, y ou worried that your food would run out before you got the money to buy more. Never true 09/18/20 25 Within the past 12 months, t he food you bought just didn't last and you didn't have money to get more. Never true 09/18/2025 PRAPARE - Transportation Answer Date Re corded In the past 12 months, has l ack of transportation kept you from medical appointments or from getting medications? Patient declined 09/18/2025 In the past 12 months, has l ack of transportation kept you from meetings, work, or from getting things needed for daily living? Patient declined 09/18/2025 Housing Stability Vital Sign Answer Estiven e Recorded In the last 12 months, was t here a time when you were not able to pay the mortgage or rent on time? No 09/18/2025 In the past 12 months, how m any times have you moved where you were living? 0 09/18/2025 At any time in the past 12 m [facility], were you homeless or living in a assisted (including now)? No 09/18/2025 [id number] Health Literacy Answer Date Recor ded How often do you need to hav e someone help you when you read instructions, pamphlets, or other written material from your doctor or pharmacy? Never 09/18/2025 [facility] Utilities Answer Date Recorded In the past 12 months has e [place], gas, oil, or water [employer] threatened to shut off services in your home? Patient declined 09/18/2025 Comments Unknown Sex and Gender Information Value Date Recorded Sex Assigned at Female 09/17/2025 7:55 PM CARDIAC SPECIALIST Legal Sex Female 9:33 AM CARDIAC SPECIALIST Gender Identity Female 09/18/2025 7:05 AM CARDIAC SPECIALIST Sexual Orientation Straight 09/18/2025 7: 05 AM CARDIAC SPECIALIST Last Filed Vital Signs Vital Sign Reading Time Taken Comments Blood Pressure 121/69 09/19/2025 7:03 PM CARDIAC SPECIALIST Pulse 81 09/19/2025 7:03 PM CARDIAC SPECIALIST Temperature 36.2 C (97.2 F) 09/19/2025 7:03 PM CARDIAC SPECIALIST Respiratory Rate 18 09/19/2025 7:03 PM CARDIAC SPECIALIST Oxygen Saturation 99% 09/19/2025 7:03 PM CARDIAC SPECIALIST Inhaled Oxygen Concentration - - Weight 71.2 kg (156 lb 15.5 oz) 09/19/2025 3:55 AM CARDIAC SPECIALIST Height 165.1 cm (5' 5) 09/18/2025 12:3 6 AM CARDIAC SPECIALIST Body Mass Index 26.12 09/18/2025 12:36 AM CARDIAC SPECIALIST Plan of Treatment Health Maintenance Due Date Last Done Comments Colorectal Cancer Screening Colonoscopy (10 Years) 1959 Mammogram Screening 1999 Zoster Vaccines (1 of 2) 2009 RSV Immunization or 60+ Years (1 - Risk 60-74 years 1-dose series) 2019 Annual Medicare Wellness Visit 2024 Dexa Scan (General) 2024 COVID-19 Vaccine (4 - 2024-2 6 season) 2025 08/19/2022, 02/06/2021, 01/09/2021 Influenza Adult (#1) 2025 08/19/2022, 2021 DTaP, Tdap and Td Vaccines ( 2 - Td or Tdap) 04/28/2035 04/28/2025 Pneumococcal Vaccine: 50+ Years Completed 04/17/2025, 08/02/2023 Hepatitis C Completed 05/03/2025 Hepatitis A Vaccines Aged Out No long [...] on patient's age to complete this topic Procedures Procedure Name Priority Date/Time Associated Diagnosis Comments MRA NECK WO CON Today 09/19/2025 3:57 PM CARDIAC SPECIALIST MRA HEAD WO CON Today 09/19/2025 3:53 PM CARDIAC SPECIALIST EEG ROUTINE STAT 09/18/2025 10:03 PM CARDIAC SPECIALIST POCT GLUCOSE - DOCKED DEVICE Routine 09/18/2025 9:21 PM CARDIAC SPECIALIST POCT GLUCOSE - DOCKED DEVICE Routine 09/18/2025 1:54 PM CARDIAC SPECIALIST MRI BRAIN WO CON Today 09/18/2025 8:11 AM CARDIAC SPECIALIST HEPATITIS B SURFACE AG, EIA STAT 09/18/2025 7:23 AM CARDIAC SPECIALIST HEPATITIS B POST-VACCINE ANTIBODY STAT 09/18/2025 7:23 AM CARDIAC SPECIALIST RESPIRATORY PCR PANEL 2 STAT 09/18/2025 5:00 AM CARDIAC SPECIALIST DRUG SCREEN RAPID STAT 09/17/2025 11: 08 PM CARDIAC SPECIALIST URINALYSIS STAT 09/17/2025 11:08 PM CARDIAC SPECIALIST CULTURE, BACTERIA, BLOOD STAT 09/17/2025 8:45 PM CARDIAC SPECIALIST CULTURE, BACTERIA, BLOOD STAT 09/17/2025 8:45 PM CARDIAC SPECIALIST RESPIRATORY PCR PNL LIMITED STAT 09/17/2025 8:[address] HEAD WO CON STAT 09/17/2025 7:25 PM CARDIAC SPECIALIST ECG 12-LEAD Routine 09/17/2025 6:40 PM CARDIAC SPECIALIST AMMONIA STAT 09/17/2025 6:27 PM CARDIAC SPECIALIST ETHANOL STAT 09/17/2025 6:27 PM CARDIAC SPECIALIST MAGNESIUM STAT 09/17/2025 6:27 PM CARDIAC SPECIALIST LACTIC ACID W REFLEX (SEPSIS) STAT 09/17/2025 6:27 PM CARDIAC SPECIALIST TROPONIN, QUANT STAT 09/17/2025 6:27 PM CARDIAC SPECIALIST COMPREHENSIVE METABOLIC PANEL STAT 09/17/2025 6:27 PM CARDIAC SPECIALIST HC CBC AUTO W/AUTO DIFF STAT 09/17/2025 6:27 PM CARDIAC SPECIALIST XR CHEST PORTABLE STAT 09/17/2025 6:2 2 PM CARDIAC SPECIALIST POCT GLUCOSE - DOCKED DEVICE Routine 09/17/2025 5:57 PM CARDIAC SPECIALIST from Last 3 Months Results * MRA NECK WO CON (09/19/2025 3:57 PM CARDIAC SPECIALIST) Anatomical Region Laterality Modality Neck Magnetic Resonan ce 09/19/2025 6:42 PM CARDIAC SPECIALIST Impressions 09/19/2025 6:55 PM CARDIAC SPECIALIST IMPRESSION: 1. Near complete occlusion of the [...] to hospitalist on-call by Dr. Douglas via [employer] at 09/19/2025 6:54 PM (central time). Referred By: Interpreted By: Micheal Douglas MD, 09/19/2025 6:42 PM Narrative 09/19/2025 6:55 PM CARDIAC SPECIALIST [address] [address] EXAMINATION: MRA head without contrast, MRA neck without contrast [id number] EXAM DATE/TIME: 09/19/2025 3:29 PM REASON FOR EXAM: stroke, altered mental status COMPARISON: Brain MRI 09/18/2025 TECHNIQUE: 3-D nhxj-lx-edbltn imaging was obtained of the intracranial arterial vasculature without the use of contrast agent. Subsequent 3-D rotational MIP reconstructions of the anterior and posterior circulations are created on separate workstation for review. Additionally, 2D lrsa-fo-ekzxyu imaging obtained of the cervical arterial vasculature. Subsequent 3-D rotational MIP reconstructions of the left and right carotid circulations are created on separate workstation for review. No contrast utilized for this study. FINDINGS: Head: There [...] No high-grade stenosis or proximal vessel occlusion. Procedure Note Micheal Douglas MD - 09/19/[address] [address] EXAMINATION: MRA head without contrast, MRA neck without contrast [id number] EXAM DATE/TIME: 09/19/2025 3:29 PM REASON FOR EXAM: stroke, altered mental status COMPARISON: Brain MRI 09/18/2025 TECHNIQUE: 3-D nodb-xr-wzvimx imaging was obtained of the intracranialarterial vasculature without the use of contrast agent. Subsequent 3-Drotational MIP reconstructions of the anterior and posterior circulationsare created on separate workstation for review. Additionally, 2Hkuxt-pw-ielsto imaging obtained of the cervical arterial vasculature.Subsequent 3-D rotational MIP reconstructions of the left and rightcarotid circulations are created on separate workstation for review. Nocontrast utilized for this study. 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 The superioraspect of the intracranial left vertebral artery also appears occluded.Moderate focal stenosis of the right intracranial vertebral artery. There is nonvisualization of an anterior left MCA M2 branch. Remainingleft MCA vasculature beyond the M1-M2 bifurcation also appearsattenuated. No aneurysm is identified. Neck: No high-grade stenosis or proximal vessel occlusion. IMPRESSION: 1. 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 The superior aspect ofthe left intracranial vertebral artery also appears occluded. 2. Nonvisualization of an anterior left MCA M2 branch as well asattenuated appearance of the remaining left MCA vasculature beyond theM1-M2 bifurcation. 3. Given impression 1 and 2 above, interventional neurology consultationis recommended. 4. Moderate focal stenosis of the right intracranial vertebral artery. 5. No high-grade stenosis or proximal vessel occlusion in the neck. Impression 1-3 were sent to hospitalist on-call by Dr. Douglas via [employer] at 09/19/2025 6:54 PM (central time). Referred By: Interpreted By: Micheal Douglas MD, 09/19/2025 6:42 PM Jorge L Hall MD MRI Final Res ult * MRA HEAD WO CON (09/19/2025 3:53 PM CARDIAC SPECIALIST) Anatomical Region Laterality Modality Head Magnetic Resonan ce 09/19/2025 6:42 PM CARDIAC SPECIALIST Impressions 09/19/2025 6:55 PM CARDIAC SPECIALIST IMPRESSION: 1. Near complete occlusion of the [...] By: Micheal Douglas MD, 09/19/2025 6:42 PM Narrative 09/19/2025 6:55 PM CARDIAC SPECIALIST [address] [address] EXAMINATION: MRA head without contrast, MRA neck without contrast [id number] EXAM DATE/TIME: 09/19/2025 3:29 PM REASON FOR EXAM: stroke, altered mental status COMPARISON: Brain MRI 09/18/2025 TECHNIQUE: 3-D huqu-hp-awslyc imaging was obtained of the intracranial arterial vasculature without the use of contrast agent. Subsequent 3-D rotational MIP reconstructions of the anterior and posterior circulations are created on separate workstation for review. Additionally, 2D hyjh-xq-xncjli imaging obtained of the cervical arterial vasculature. Subsequent 3-D rotational MIP reconstructions of the left and right carotid circulations are created on separate workstation for review. No contrast utilized for this study. FINDINGS: Head: There [...] No high-grade stenosis or proximal vessel occlusion. Procedure Note Micheal Douglas MD - 09/19/[address] [address] EXAMINATION: MRA head without contrast, MRA neck without contrast [id number] EXAM DATE/TIME: 09/19/2025 3:29 PM REASON FOR EXAM: stroke, altered mental status COMPARISON: Brain MRI 09/18/2025 TECHNIQUE: 3-D dizy-al-guylei imaging was obtained of the intracranialarterial vasculature without the use of contrast agent. Subsequent 3-Drotational MIP reconstructions of the anterior and posterior circulationsare created on separate workstation for review. Additionally, 7Rfvgg-av-ewpyut imaging obtained of the cervical arterial vasculature.Subsequent 3-D rotational MIP reconstructions of the left and rightcarotid circulations are created on separate workstation for review. Nocontrast utilized for this study. 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 The superioraspect of the intracranial left vertebral artery also appears occluded.Moderate focal stenosis of the right intracranial vertebral artery. There is nonvisualization of an anterior left MCA M2 branch. Remainingleft MCA vasculature beyond the M1-M2 bifurcation also appearsattenuated. No aneurysm is identified. Neck: No high-grade stenosis or proximal vessel occlusion. IMPRESSION: 1. 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 The superior aspect ofthe left intracranial vertebral artery also appears occluded. 2. Nonvisualization of an anterior left MCA M2 branch as well asattenuated appearance of the remaining left MCA vasculature beyond theM1-M2 bifurcation. 3. Given impression 1 and 2 above, interventional neurology consultationis recommended. 4. Moderate focal stenosis of the right intracranial vertebral artery. 5. No high-grade stenosis or proximal vessel occlusion in the neck. Impression 1-3 were sent to hospitalist on-call by Dr. Douglas via [employer] at 09/19/2025 6:54 PM (central time). Referred By: Interpreted By: Micheal Douglas MD, 09/19/2025 6:42 PM us Jorge L Hall MD MRI Final Res ult * EEG (09/18/2025 10:03 PM CARDIAC SPECIALIST) Narrative [facility] - 09/18/2025 10:03 PM CARDIAC SPECIALIST Lonnie Mcgee MD 09/18/2025 10:29 PM Date study performed: 09/18/25 Procedure: Spot EEG Duration 20-40min study Indications: The indication of this EEG is for further seizure work up and rule out seizures. Details of Procedure: Conditions of Recording: This is a digital EEG performed using disc electrodes placed according to the International 10-20 system of electrode placement. Scalp to scalp and scalp to ear montages were used. Activation Procedures: Photic Stimulations Results: Maximum wakefulness was not tested by the retread technician, and therefore, no reliable posterior dominant rhythm (PDR) is available. Sleep phase was noted from the beginning of the study. Many motion artifacts, particularly over the left hemisphere, limit the evaluation. Amplitudes are within normal range and symmetric throughout. There is no significant asymmetry between the two hemispheres with regards to amplitudes, morphologies, or frequencies. Photic stimulation did not elicit abnormalities. No definite interictal epileptiform discharges or seizures were observed. None of the movements documented by the retread technician were associated with abnormal EEG. Impression: - Normal EEG in the sleep state - No epileptiform discharges or seizures were noted during this study Comments: If there is clinical suspicion for seizures, continue empiric treatment with a seizure medication. The absence of interictal epileptiform discharges does not exclude the possibility of a prior seizure or of the predisposition to future seizures. Lonnie Casillas MD Epileptologist Daljit Jean DO NEUROLOGY ORDERABLES Final R esult Performing Organization Address [facility] Co de Phone Number [facility] [address] [place] [address], [place] [phone] * POCT glucose (09/18/2025 9:21 PM CARDIAC SPECIALIST) Only the most recent of3 resultswithin the time period is included. [facility] Signature GLUCOSE POC 87 70 - 99 mg/dL 09/18/2025 9:23 PM CARDIAC SPECIALIST [facility] 09/18/2025 9:21 PM CARDIAC SPECIALIST Sujata Esquivel MD POCT ORDERABLES - DEVICE Fin al Result Performing Organization Address [facility] Co de Phone Number [facility] [address] [place] [address], [place] [phone] * MRI BRAIN WO CON (09/18/2025 8:11 AM CARDIAC SPECIALIST) Anatomical Region Laterality Modality Head Magnetic Resonan ce 09/18/2025 9:02 AM CARDIAC SPECIALIST Impressions 09/18/2025 9:06 AM CARDIAC SPECIALIST IMPRESSION: 1. Focal ovoid restricted diffusion within [...] the right parietal cortex. Ordered By: DALJIT JEAN Interpreted By: Jarod Vega MD, 09/18/2025 9:02 AM Findings delivered to Dr. Esquivel via [employer] at the time of dictation. Narrative 09/18/2025 9:06 AM CARDIAC SPECIALIST [address] [address] Examination: MRI BRAIN WO CON, 09/18/2025 7:41 [...] right mastoid air cells are well aerated. Procedure Note Gary, Jarod M, MD - 09/18/2025 [facility] [address] [place], [place] [address] Examination: MRI BRAIN WO CON, 09/18/2025 7:41 AM. Technique: Multiplanar multisequence magnetic resonance images of thebrain were obtained without intravenous contrast. Clinical history: AMS, hx CVA Comparison: CT head 09/17/2025 Findings: There is focal ovoid restricted diffusion within the subcortical whitematter of the left frontal lobe that may be represent an acute infarct.Suggestion of some cortical sparing which is somewhat atypical, thereforerecommend MRI brain exam with contrast follow-up in 4-6 weeks unlesssymptoms warrant sooner characterization. Curvilinear susceptibility alongthe cortical margin of the right parietal convexity as evidence forcortical laminar necrosis. Scattered subcortical and periventricular whitematter T2 FLAIR hyperintensities that are nonspecific but most commonlyseen in setting of chronic small vessel ischemic change. Sellar, callosal,pineal, and craniovertebral junction regions appear within normallimits. There is no extra-axial collection. Basal cisterns appear normal. Theproximal intracranial arterial flow voids have a normal appearance.Orbital contents appear normal. Paranasal sinuses are well aerated. Traceleft mastoid air cell fluid. The right mastoid air cells are well aerated. IMPRESSION: 1. Focal ovoid restricted diffusion within the subcortical white matterof the left frontal lobe that may represent an acute infarct. Suggestionof some cortical sparing which is somewhat atypical, therefore recommendMRI brain exam with contrast follow-up in 4-6 weeks unless symptomswarrant sooner characterization. 2. Mild chronic small vessel ischemic change. 3. 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 Ordered By: DALJIT JEAN Interpreted By: Jarod Vega MD, 09/18/2025 9:02 AM Findings delivered to Dr. Esquivel via [employer] messaging at the time of dictation. Daljit Jean DO MRI Final Result * HEPATITIS B SURFACE AG, EIA (09/18/2025 7:23 AM CARDIAC SPECIALIST) [facility] HEPATITIS B SURFACE AG NON-REACTI VE NON-REACTI VE 09/18/2025 8:20 AM CARDIAC SPECIALIST [facility] BLOOD VENOUS BLOOD SPECIMEN / Unknown 09/18/2025 7:23 AM CARDIAC SPECIALIST Dipti Montilla MD LABORATORY Final Result Performing Organization Address City/[facility]/ZIP Co de Phone Number [facility] [address] [place] [address], [place] [phone] * HEPATITIS B POST-VACCINE ANTIBODY (09/18/2025 7:23 AM CARDIAC SPECIALIST) [facility] HEP B SURFACE AB 70.85 mIU/mL 09/18/2025 8:41 AM CARDIAC SPECIALIST [facility] Comment: REFERENCE RANGE >=12.00 PATIENT DOES HAVE IMMUNITY TO HEPATITIS B VIRUS BLOOD VENOUS BLOOD SPECIMEN / Unknown 09/18/2025 7:23 AM CARDIAC SPECIALIST Dipti Montilla MD LABORATORY Final Result Performing Organization Address City/[facility] Co de Phone Number [facility] [address] [place] [address], [place] [phone] * RESPIRATORY PCR PANEL 2 (09/18/2025 5:00 AM CARDIAC SPECIALIST) [facility] ADENOVIRUS PCR (RESP) NOT DETECTED NOT DETECTED 09/18/2025 7:39 AM CARDIAC SPECIALIST [facility] CORONAVIRUS 229E PCR (RESP) NOT DETECTED NOT DETECTED 09/18/2025 7:39 AM CARDIAC SPECIALIST [facility] CORONAVIRUS HKU1 PCR (RESP) NOT DETECTED NOT DETECTED 09/18/2025 7:39 AM CARDIAC SPECIALIST [facility] CORONAVIRUS NL63 PCR (RESP) NOT DETECTED NOT DETECTED 09/18/2025 7:39 AM [facility] CORONAVIRUS OC43 PCR (RESP) NOT DETECTED NOT DETECTED 09/18/2025 7:39 AM [facility] METAPNEUMOVIRUS PCR (RESP) NOT DETECTED NOT DETECTED 09/18/2025 7:39 AM [facility] RHINOVIRUS/ENTEROV IRUS PCR (RESP) NOT DETECTED NOT DETECTED 09/18/2025 7:39 AM [facility] INFLUENZA A PCR (RESP) NOT DETECTED NOT DETECTED 09/18/2025 7:39 AM [facility] INFLUENZA B PCR (RESP) NOT DETECTED NOT DETECTED 09/18/2025 7:39 AM [facility] PARAINFLUENZA 1 PCR (RESP) NOT DETECTED NOT DETECTED 09/18/2025 7:39 AM [facility] PARAINFLUENZA 2 PCR (RESP) NOT DETECTED NOT DETECTED 09/18/2025 7:39 AM [facility] PARAINFLUENZA 3 PCR (RESP) NOT DETECTED NOT DETECTED 09/18/2025 7:39 AM [facility] PARAINFLUENZA 4 PCR (RESP) NOT DETECTED NOT DETECTED 09/18/2025 7:39 AM [facility] RSV PCR (RESP) NOT DETECTED NOT DETECTED 09/18/2025 7:39 AM [facility] B PARAPERTUSIS PCR (RESP) NOT DETECTED NOT DETECTED 09/18/2025 7:39 AM [facility] BORDETELLA PERTUSSIS PCR (RESP) NOT DETECTED NOT DETECTED 09/18/2025 7:39 AM [facility] CHLAMYDOPHILA PNEUMONIAE PCR (RESP) NOT DETECTED NOT DETECTED 09/18/2025 7:39 AM [facility] MYCOPLASMA PNEUMONIAE PCR (RESP) NOT DETECTED NOT DETECTED 09/18/2025 7:39 AM [facility] CORONAVIRUS SARS COV 2 PCR (RESP) NOT DETECTED NOT DETECTED 09/18/2025 7:39 AM [facility] SWAB NASOPHARYNGEAL STRUCTURE / Unknown 09/18/2025 5:00 AM CARDIAC SPECIALIST Daljit Jean DO MICROBIOLOGY - GENERAL ORDER BROOK Final Result [facility] [address] [place] [address], [place] [phone] * (ABNORMAL) URINALYSIS (09/17/2025 11:08 PM CARDIAC SPECIALIST) SPECIMEN TYPE URINE CLEAN CATCH 09/17/2025 11:08 PM [facility] COLOR (U) LIGHT YELLOW 09/17/2025 11:52 PM [facility] TRANSPARENCY CLEAR 09/17/2025 11:52 PM [facility] SPECIFIC GRAVITY (U) 1.014 1.001 - 1.030 09/17/2025 11:52 PM [facility] U PH 7.5 5.0 - 9.0 09/17/2025 11:52 PM [facility] LEUKOCYTES (U) NEGATIVE NEGATIVE 09/17/2025 11:52 PM [facility] NITRITES NEGATIVE NEGATIVE 09/17/2025 11:52 PM [facility] PROTEIN RANDOM (U) 200(H) <30 MG/DL 09/17/2025 11:52 PM [facility] GLUCOSE (U) NORMAL NORMAL MG/DL 09/17/2025 11:52 PM [facility] KETONES MG/DL (U) NEGATIVE NEGATIVE MG/DL 09/17/2025 11:52 PM CARDIAC SPECIALIST [facility] UROBILINOGEN NORMAL NORMAL MG/DL 09/17/2025 11:52 PM CARDIAC SPECIALIST [facility] BILIRUBIN (U) NEGATIVE NEGATIVE MG/DL 09/17/2025 11:52 PM [facility] BLOOD (U) NEGATIVE NEGATIVE 09/17/2025 11:52 PM CARDIAC SPECIALIST [facility] MUCUS RARE /LPF 09/17/2025 11:52 PM CARDIAC SPECIALIST [facility] HYALINE CASTS RARE /LPF 09/17/2025 11:52 PM CARDIAC SPECIALIST [facility] WBC/HPF 7(H) <6 /HPF 09/17/2025 11:52 PM [facility] RBC/HPF 1 <6 /HPF 09/17/2025 11:52 PM [facility] SQUAMOUS EPITHELIALS RARE /HPF 09/17/2025 11:52 PM [facility] URINE URINE SPECIMEN OBTAINED BY CLEAN CATCH PROCEDURE / Unknown 09/17/2025 11:08 PM CARDIAC SPECIALIST Sirena BURTON URINE ORDERABLES Final Result [facility] [address] [place] [address], [place] [phone] * DRUG SCREEN RAPID (09/17/2025 11:08 PM CARDIAC SPECIALIST) AMPHETAMINE (U) NEGATIVE NEGATIVE 12:00 AM CARDIAC SPECIALIST [facility] BARBITURATES SCREEN (U) NEGATIVE NEGATIVE 09/18/2025 12:00 AM CARDIAC SPECIALIST [facility] BENZODIAZEPINES SCREEN (U) NEGATIVE NEGATIVE 09/18/2025 12:00 AM CARDIAC SPECIALIST [facility] CANNABINOIDS SCREEN (U) NEGATIVE NEGATIVE 09/18/2025 12:00 AM [facility] COCAINE METABOLITES (U) NEGATIVE NEGATIVE 09/18/2025 12:00 AM [facility] METHADONE (U) NEGATIVE NEGATIVE 09/18/2025 12:00 AM [facility] OPIATE SCREEN (U) NEGATIVE NEGATIVE 025 12:00 AM CARDIAC SPECIALIST [facility] PHENCYCLIDINE PCP (U) NEGATIVE NEGATIVE 09/18/2025 12:00 AM [facility] Comment: NOTE: RESULTS OF THIS DRUG SCREEN SHOULD BE USED FOR MEDICAL PURPOSES ONLY AND NOT FOR LEGAL OR EMPLOYMENT PURPOSES. POSITIVE RESULTS ARE NOT CONFIRMED. MEDICATIONS CONTAINING EPHEDRINE MAY CAUSE FALSE POSITIVE AMPHETAMINE CALL [phone], LAB, TO REQUEST CONFIRMATION TESTING. IF CREATININE IS <40 mg/dL. RECOLLECTION IS SUGGESTED. AMPHETAMINE- 500 NG/ML BARBITURATE- 200 NG/ML BENZODIAZEPINES- 200 NG/ML THC- 50 NG/ML COCAINE- 150 NG/ML METHADONE- 300 NG/ML OPIATE- 300 MG/ML PCP- 25 NG/ML CREATININE (U) 103.0 28 - 217 MG/DL 09/18/2025 12:00 AM [facility] URINE URINE SPECIMEN OBTAINED BY CLEAN CATCH PROCEDURE / Unknown 09/17/2025 11:08 PM CARDIAC SPECIALIST Sirena BURTON URINE ORDERABLES Final Result [facility] [address] [place] [address], * CULTURE, BACTERIA, BLOOD (09/17/2025 8:45 PM CARDIAC SPECIALIST) Only the most recent of2 resultswithin the time period is included. SPEC DESCRIPTION BLOOD-VENOU S 09/17/2025 7:10 PM [facility] SPECIAL REQUESTS NO SPECIAL REQUEST 09/17/2025 7:10 PM CARDIAC SPECIALIST [facility] CULTURE RESULT NO GROWTH 5 DAYS 09/22/2025 10:29 PM CARDIAC SPECIALIST [facility] BLOOD VENOUS BLOOD SPECIMEN / Unknown 09/17/2025 8:45 PM CARDIAC SPECIALIST 09/17/2025 9:09 PM CARDIAC SPECIALIST us Dong Shannon DO MICROBIOLOGY - GENERAL ORDERAB LES Final Result [facility] [address] [place] [address], [place] [phone] * RESPIRATORY PCR PNL LIMITED (FLU A/FLU B/RSV/COVID) (09/17/2025 8:08 PM CARDIAC SPECIALIST) SPEC DESCRIPTION NASOPHARYNGEAL SWAB 09/17/2025 8:09 PM CARDIAC SPECIALIST [facility] CORONAVIRUS SARS COV 2 PCR (RESP) NEGATIVE NEGATIVE 09/17/2025 9:15 PM CARDIAC SPECIALIST [facility] INFLUENZA A PCR (RESP) NEGATIVE NEGATIVE 09/17/2025 9:15 PM CARDIAC SPECIALIST [facility] INFLUENZA B PCR (RESP) NEGATIVE NEGATIVE 09/17/2025 9:15 PM CARDIAC SPECIALIST [facility] RSV PCR (RESP) NEGATIVE NEGATIVE 09/17/2025 9:15 PM CARDIAC SPECIALIST [facility] SWAB NASOPHARYNGEAL STRUCTURE / Unknown 09/17/2025 8:08 PM CARDIAC SPECIALIST us Dong Shannon DO MICROBIOLOGY - GENERAL ORDERAB LES Final Result [facility] [address] [place] [address], [place] [phone] * CT HEAD WO CON (09/17/2025 7:25 PM CARDIAC SPECIALIST) Anatomical Region Laterality Modality Head Computed Tomogra phy 09/17/2025 7:39 PM CARDIAC SPECIALIST Impressions 09/17/2025 7:42 PM CARDIAC SPECIALIST IMPRESSION: 1. No acute intracranial findings. If there is persistent clinical concern for acute ischemia, brain MRI is more sensitive. 2. Chronic microvascular change and multifocal chronic infarct/encephalomalacia as above. Referred By: Interpreted By: Micheal Douglas MD, 09/17/2025 7:39 PM Narrative 09/17/2025 7:42 PM CARDIAC SPECIALIST [place] [id number] EXAMINATION: CT of the head EXAM DATE/TIME: 09/17/2025 7:12 PM REASON FOR EXAM: 65 years of age, Female, with confusion, altered mental status COMPARISON: No existing relevant imaging study available. TECHNIQUE: Axial CT images of the brain are obtained from skull base through vertex without the use of IV contrast agent. A dose lowering technique was used for this procedure, which may include, but is not limited to, dose reduction technique, automated exposure control, iterative reconstruction, ALARA (As Low As Reasonably Achievable), or Image Gently techniques. FINDINGS: Periventricular and subcortical white matter hypodensities [...] sinuses and mastoid air cells are clear. Procedure Note Micheal Douglas MD - 09/17/[address] [address] EXAMINATION: CT of the head EXAM DATE/TIME: 09/17/2025 7:12 PM REASON FOR EXAM: 65 years of age, Female, with confusion, altered mentalstatus COMPARISON: No existing relevant imaging study available. TECHNIQUE: Axial CT images of the brain are obtained from skull basethrough vertex without the use of IV contrast agent. A dose loweringtechnique was used for this procedure, which may include, but is notlimited to, dose reduction technique, automated exposure control,iterative reconstruction, ALARA (As Low As Reasonably Achievable), orImage Gently techniques. FINDINGS: Periventricular and subcortical white matter hypodensities are seen, whichlikely represent sequelae of chronic microvascular change. Chronic infarct/encephalomalacia in the right parietal lobe. Chronicinfarct/encephalomalacia in the left frontal lobe. No acute intracranial hemorrhage or CT evidence of acute-subacute, largeterritory infarct. There is no evidence of hydrocephalus, extraaxial fluid collection, masseffect or midline shift. There is no acute displaced calvarial fracture. Right maxillary sinus mucosal thickening, otherwise visualized paranasalsinuses and mastoid air cells are clear. IMPRESSION: 1. No acute intracranial findings. If there is persistent clinicalconcern for acute ischemia, brain MRI is more sensitive. 2. Chronic microvascular change and multifocal chronicinfarct/encephalomalacia as above. 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1960 Requested By: SIRENA MEI Order Number: [id number] Reading : See [place] Measurements Intervals [place] Rate: 103 P: 61 TN: 172 QRS: 16 QRSD: 98 T: 78 QT: 331 QTc: 434 Interpretive Statements SINUS TACHYCARDIA POSSIBLE ANTERIOR MYOCARDIAL INFARCTION , OF INDETERMINATE AGE [30 ms Q WAVE IN V3/V4, OR R < 0.2 mV IN V4] No previous ECG available for comparison Other ischemic changes, not STEMI Preliminary EKG Interpretation by Dong Shannon, IAC SPECIALIST Procedure Note See [place] MD - 09/18/[address] Test Date: 2025-09-17 Pat Name: GENA PIERRE Department: 41 Room: EXAM06 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: Female 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 : 1960 Requested By: SIRENA MEI Order Number: [id number] Reading JULIANE [place] Measurements Intervals [place] Rate: 103 P: 61 TN: 172 QRS: 16 QRSD: 98 T: 78 QT: 331 QTc: 434 Interpretive Statements SINUS TACHYCARDIA POSSIBLE ANTERIOR MYOCARDIAL INFARCTION , OF INDETERMINATE AGE [30 ms QWAVE IN V3/V4, OR R < 0.2 mV IN V4] No previous ECG available for comparison Other ischemic changes, not STEMI Preliminary EKG Interpretation by Dong Shannon DO IAC SPECIALIST us Sirena BURTON ECG ORDERABLES Final Result [facility] RAD * TROPONIN, QUANT (09/17/2025 6:27 PM CARDIAC SPECIALIST) TROPONIN I HIGH SENSITIVITY 14 <54 ng/L 09/17/2025 7:43 PM CARDIAC SPECIALIST [facility] Comment: HIGH DOSES OF BIOTIN, TROPONIN-SPECIFIC AUTOANTIBODIES, AND ANTIBODY THERAPY CONTAINING HAMA MAY INTERFERE WITH THIS TEST RESULT. CORRELATION TO CLINICAL HISTORY AND PRESENTATION RECOMMENDED. BLOOD VENOUS BLOOD SPECIMEN / Unknown 09/17/2025 6:27 PM CARDIAC SPECIALIST us Sirena BURTON LABORATORY Final Result [facility] [address] [place] [address], [place] [phone] * MAGNESIUM (09/17/2025 6:27 PM CARDIAC SPECIALIST) MAGNESIUM 2.4 1.8 - 2.4 MG/DL 09/17/2025 7:43 PM CARDIAC SPECIALIST [facility] BLOOD VENOUS BLOOD SPECIMEN / Unknown 09/17/2025 6:27 PM CARDIAC SPECIALIST us Sirena BURTON LABORATORY Final Result Performing Organization Address [facility] Co de Phone Number [facility] [address] [place] [address], [place] [phone] * ETHANOL (09/17/2025 6:27 PM CARDIAC SPECIALIST) ALCOHOL S/P/B <0.003 <0.003 G/DL 09/17/2025 7:43 PM CARDIAC SPECIALIST [facility] BLOOD VENOUS BLOOD SPECIMEN / Unknown 09/17/2025 6:27 PM CARDIAC SPECIALIST us Sirena BURTON LABORATORY Final Result Performing Organization Address City/[facility]/ZIP Co de Phone Number [facility] [address] [place] [address], [place] [phone] * (ABNORMAL) COMPREHENSIVE METABOLIC PANEL (09/17/2025 6:27 PM CARDIAC SPECIALIST) [facility] GLUCOSE 104(H) 70 - 99 MG/DL 09/17/2025 7:43 PM [facility] BUN 48(H) 7 - 18 MG/DL 09/17/2025 7:43 PM [facility] CREATININE S/P/B 9.88(HH) 0.55 - 1.02 MG/DL 09/17/2025 7:43 PM [facility] Comment: Critical Result(s) Called at: 19:42:09 on 09/17/2025 by: GILBERTO SIGALA to and read back by:SYLVAIN STUBBS SODIUM S/P/B 136 136 - 145 MMOL/L 09/17/2025 7:43 PM [facility] POTASSIUM S/P/B 4.7 3.5 - 5.1 MMOL/L 09/17/2025 7:43 PM [facility] CHLORIDE S/P/B 98 97 - 115 MMOL/L 09/17/2025 7:43 PM [facility] CO2 23.6 21 - 32 MMOL/L 09/17/2025 7:43 PM [facility] CALCIUM S/P/B 9.8 8.5 - 10.1 MG/DL 09/17/2025 7:43 PM [facility] BILIRUBIN TOTAL S/P/B 0.5 0.2 - 1.2 MG/DL 09/17/2025 7:43 PM [facility] Comment: THIS ASSAY IS NOT RECOMMENDED FOR PATIENTS UNDERGOING TREATMENT WITH ELTROMBOPAG DUE TO THE POTENTIAL FOR FALSELY ELEVATED RESULTS. TOTAL PROTEIN S/P/B 7.6 6.4 - 8.2 G/DL 09/17/2025 7:43 PM [facility] ALBUMIN S/P/B 3.3(L) 3.4 - 5.0 G/DL 09/17/2025 7:43 PM CARDIAC SPECIALIST [facility] AST 22 15 - 37 U/L 09/17/2025 7:43 PM [facility] ALT 22 14 - 55 U/L 09/17/2025 7:43 PM [facility] ALKALINE PHOSPHATASE S/P/B 149(H) 50 - 136 U/L 09/17/2025 7:43 PM [facility] ANION GAP 14.4(H) 2 - 10 MMOL/L 09/17/2025 7:43 PM [facility] BUN CREATININE RATIO 4.9(L) 6 - 26 09/17/2025 7:43 PM [facility] A/G RATIO 0.8(L) 1.0 - 2.0 RATIO 09/17/2025 7:43 PM [facility] GFR ESTIMATE 4(L) >90 ML/MIN/1.7 3 M2 09/17/2025 7:43 PM [facility] Comment: NOTE: eGFR is not calculated for patients <18 years of age or gender unknown. This is an estimated GFR calculation using the new CKD EPI creatinine equation without race and so does not require a correction factor for race. This estimated GFR should not be used for calculating drug doses. BLOOD VENOUS BLOOD SPECIMEN / Unknown 09/17/2025 6:27 PM CARDIAC SPECIALIST Sirena BURTON LABORATORY Final Result [facility] [address] [place] [address], * (ABNORMAL) CBC W/DIFF AUTOMATED (09/17/2025 6:27 PM CARDIAC SPECIALIST) WBC 13.70(H) 4.5 - 11.0 x10'3/uL 09/17/2025 6:47 PM [facility] RBC 4.19(L) 4.20 - 5.40 x10'6/uL 09/17/2025 6:47 PM [facility] HGB 12.3 12.0 - 16.0 G/DL 09/17/2025 6:47 PM [facility] HCT 37.9(L) 38.0 - 48.0 % 09/17/2025 6:47 PM [facility] MCV 90.5 81.0 - 99.0 FL 09/17/2025 6:47 PM [facility] MCH 29.4 27.0 - 31.0 PG 09/17/2025 6:47 PM [facility] MCHC 32.5 32.0 - 36.0 G/DL 09/17/2025 6:47 PM [facility] RDW 14.9(H) 11.5 - 14.5 % 09/17/2025 6:47 PM [facility] PLT 284 130 - 400 x10'3/uL 09/17/2025 6:47 PM [facility] MPV 10.5 9.3 - 12.2 FL 09/17/2025 6:47 PM [facility] DIFFERENTIAL TYPE AUTOMATED DIFFERENTIAL 09/17/2025 6:47 PM [facility] NEUTROPHILS % 73.3 % 09/17/2025 6:47 PM [facility] LYMPHOCYTES % 14.8 % 09/17/2025 6:47 PM [facility] MONOCYTES % 8.8 % 09/17/2025 6:47 PM [facility] EOSINOPHILS 2.2 % 09/17/2025 6:47 PM [facility] BASOPHILS 0.5 % 09/17/2025 6:47 PM CARDIAC SPECIALIST [facility] IMMATURE GRANS % 0.4 % 09/17/20 25 6:47 PM CARDIAC SPECIALIST [facility] ABS. NEUTROPHILS 10.04(H) 1.80 - 7.70 x10'3/uL 09/17/2025 6:47 PM CARDIAC SPECIALIST [facility] ABS. LYMPHOCYTES 2.03 1.00 - 4.80 x10'3/uL 09/17/2025 6:47 PM CARDIAC SPECIALIST [facility] ABS. MONOCYTES 1.21(H) 0.24 - 0.86 x10'3/uL 09/17/2025 6:47 PM CARDIAC SPECIALIST [facility] ABS. EOSINOPHILS 0.30 0.04 - 0.36 x10'3/uL 09/17/2025 6:47 PM CARDIAC SPECIALIST [facility] ABS. BASOPHILS 0.07 0.01 - 0.08 x10'3/uL 09/17/2025 6:47 PM CARDIAC SPECIALIST [facility] ABS. IMMATURE GRANULOCYTES 0.05 0.00 - 0.49 x10'3/uL 09/17/2025 6:47 PM CARDIAC SPECIALIST [facility] BLOOD VENOUS BLOOD SPECIMEN / Unknown 09/17/2025 6:27 PM CARDIAC SPECIALIST Sirena BURTON LABORATORY Final Result [facility] [address] [place] [address], * AMMONIA (09/17/2025 6:27 PM CARDIAC SPECIALIST) AMMONIA 17 11 - 32 UMOL/L 09/17/2025 7:04 PM CARDIAC SPECIALIST [facility] BLOOD VENOUS BLOOD SPECIMEN / Unknown 09/17/2025 6:27 PM CARDIAC SPECIALIST Sirena BURTON LABORATORY Final Result [facility] [address] [place] [address], [place] [phone] * LACTIC ACID W REFLEX (SEPSIS) (09/17/2025 6:27 PM CARDIAC SPECIALIST) LACTIC ACID VENOUS 1.1 0.4 - 2.0 MMOL/L 09/17/2025 7:10 PM CARDIAC SPECIALIST [facility] BLOOD VENOUS BLOOD SPECIMEN / Unknown 09/17/2025 6:27 PM CARDIAC SPECIALIST Sirena BURTON LABORATORY Final Result Performing Organization Address [facility]/ZIP Co de Phone Number [facility] [address] [place] [address], [place] [phone] * XR CHEST PORTABLE (09/17/2025 6:22 PM CARDIAC SPECIALIST) Anatomical Region Laterality Modality Chest Radiographic Meg ging 09/17/2025 6:45 PM CARDIAC SPECIALIST Impressions 09/17/2025 6:46 PM CARDIAC SPECIALIST IMPRESSION: No acute findings. 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 Pt reportedly has been alert and oriented x0 for approx two weeks. Pt's poa and cousin voices concern for a possible UTI due to confusion, but pt has not been tested at the rehab center. Pt reportedly had a stroke in March. Pt is a dialysis pt, receives treatment MWF. Blood glucose 104. Pt currently denies pain. Comparison: None available Technique: Single frontal upright view of the chest obtained. FINDINGS: No parenchymal consolidation. No discrete pneumothorax or large pleural effusion. Cardiomediastinal silhouette unchanged. Right jugular central venous catheter. Loop recorder device. Clips in the right axillary region. Procedure Note Charbel Izquierdo MD - 09/17/[address] [address] Examination: X-ray chest, 1 view Exam time: 09/17/2025 at 1811 hours Clinical history: Confusion.ED via POV from [facility] for rehab services, ccoaltered mental status. Pt reportedly has been alert and oriented x0 forapprox two weeks. Pt's poa and cousin voices concern for a possible UTIdue to confusion, but pt has not been tested at the rehab center. Ptreportedly had a stroke in March. Pt is a dialysis pt, receives treatment MWF. Blood glucose 104. Ptcurrently denies pain. Comparison: None available Technique: Single frontal upright view of the chest obtained. FINDINGS: No parenchymal consolidation. No discrete pneumothorax or large pleuraleffusion. Cardiomediastinal silhouette unchanged. Right jugular centralvenous catheter. Loop recorder device. Clips in the right axillaryregion. IMPRESSION: No acute findings. Ordered By: SIRENA MEI Interpreted By: Charbel Izquierdo MD, 09/17/2025 6:45 PM [facility] Final Result from Last 3 Months Insurance MEDICAID MEDICARE Advance Directives * Full Code (Latest Code Status on File) Date Activated Date Inactivated Comments 09/18/2025 3:46 AM 09/19/2025 11:52 PM Care Teams Criminalist Technician Relationship Specialty Start Date End Date Monster Garza MD [phone] [address] PCP - General FAMILY PRACTICE 11/01/23
--- OUTSIDE RECORDS SUMMARY | 2025-10-01 21:22 | XMS_ITS ---
Author Organization [facility] Address [address] [place] [address] Care Team Providers Care Senior Product Development Scientist Name Role Phone Monster Garza MD Primary Care Provider + Active Problems Problem Noted Date Diagnosed Date Severe protein-calorie malnutrition 09/30/2025 Assessment & Plan (09/30/2025 5:55 PM ADMISSIONS DIRECTOR): - Nutrition consulted and followed throughout admission Hx of major depression 09/20/2025 Assessment & Plan (09/30/2025 1:23 PM ADMISSIONS DIRECTOR): -Continue home Effexor Assessment & Plan (09/29/2025 7:58 AM ADMISSIONS DIRECTOR): -Continue home Effexor Assessment & Plan (09/28/2025 8:21 AM ADMISSIONS DIRECTOR): -Continue home Effexor Assessment & Plan (09/27/2025 2:10 PM ADMISSIONS DIRECTOR): -Continue home Effexor Assessment & Plan (09/26/2025 8:35 AM ADMISSIONS DIRECTOR): -Continue home Effexor Assessment & Plan (09/25/2025 3:03 PM ADMISSIONS DIRECTOR): -Continue home Effexor Assessment & Plan (09/24/2025 5:48 PM ADMISSIONS DIRECTOR): -Continue home venlafaxine Assessment & Plan (09/23/2025 5:13 PM ADMISSIONS DIRECTOR): -Continue home venlafaxine Assessment & Plan (09/22/2025 7:39 AM ADMISSIONS DIRECTOR): -Continue home venlafaxine Assessment & Plan (09/21/2025 11:16 AM ADMISSIONS DIRECTOR): -Continue home venlafaxine Assessment & Plan (09/20/2025 8:16 AM ADMISSIONS DIRECTOR): -Continue home venlafaxine Ischemic stroke 09/19/2025 Assessment & Plan (09/30/2025 1:23 PM ADMISSIONS DIRECTOR): -Initially admitted to stroke team found to have ischemic stroke, continue aspirin 81mg, Brilinta 90 mg started this admission, Lipitor increased from 40 to 80 mg -PT OT recommending SNF Assessment & Plan (09/29/2025 7:58 AM ADMISSIONS DIRECTOR): -Initially admitted to stroke team found to have ischemic stroke, continue aspirin 81mg, Brilinta 90 mg started this admission, Lipitor increased from 40 to 80 mg -PT OT recommending SNF Assessment & Plan (09/28/2025 10:59 AM ADMISSIONS DIRECTOR): -Initially admitted to stroke team found to have ischemic stroke, continue aspirin 81mg, Brilinta 90 mg started this admission, Lipitor increased from 40 to 80 mg -PT OT recommending SNF Assessment & Plan (09/27/2025 2:10 PM ADMISSIONS DIRECTOR): - Initially admitted to stroke team found to have ischemic stroke, continue aspirin 81mg, Brilinta 90 mg started this admission, Lipitor increased from 40 to 80 mg -PT OT recommending SNF Assessment & Plan (09/26/2025 8:35 AM ADMISSIONS DIRECTOR): - Initially admitted to stroke team found to have ischemic stroke, continue aspirin 81mg, Brilinta 90 mg started this admission, Lipitor increased from 40 to 80 mg -PT OT recommending SNF Assessment & Plan (09/25/2025 3:03 PM ADMISSIONS DIRECTOR): - Initially admitted to stroke team found to have ischemic stroke, continue aspirin 81mg, Brilinta 90 mg started this admission, Lipitor increased from 40 to 80 mg -PT OT recommending SNF Assessment & Plan (09/24/2025 5:48 PM ADMISSIONS DIRECTOR): -see above Assessment & Plan (09/23/2025 5:13 PM ADMISSIONS DIRECTOR): -see above Assessment & Plan (09/22/2025 7:39 AM ADMISSIONS DIRECTOR): -see above Assessment & Plan (09/21/2025 9:54 AM ADMISSIONS DIRECTOR): -see above Assessment & Plan (09/20/2025 9:27 AM ADMISSIONS DIRECTOR): Assessment & Plan (09/20/2025 8:16 AM ADMISSIONS DIRECTOR): -see above Secondary hyperparathyroidism 08/07/2025 Assessment & Plan (09/30/2025 1:23 PM ADMISSIONS DIRECTOR): -Nephrology following for maintenance dialysis Assessment & Plan (09/29/2025 7:58 AM ADMISSIONS DIRECTOR): -Nephrology following for maintenance dialysis Assessment & Plan (09/28/2025 10:59 AM ADMISSIONS DIRECTOR): -Nephrology following for maintenance dialysis Assessment & Plan (09/27/2025 2:10 PM ADMISSIONS DIRECTOR): -Nephrology following for maintenance dialysis Assessment & Plan (09/26/2025 8:35 AM ADMISSIONS DIRECTOR): -Nephrology following for maintenance dialysis Assessment & Plan (09/25/2025 3:03 PM ADMISSIONS DIRECTOR): -Nephrology following for maintenance dialysis Assessment & Plan (09/24/2025 5:48 PM ADMISSIONS DIRECTOR): ESRD on HD - hemodialysis catheter placement confirmed with CXR 09/20 - dialysis schedule MWF - last dialysis 09/21 Hyperparathyroidism - Vitamin D low (19.9) -DC'd vitamin D supplementation per nephrology due to hypercalcemia, nephrology recommending SestaMIBI scan -Started on send Salit 60 mg daily -Recommending ENT consult for possible 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 Assessment & Plan (09/23/2025 5:13 PM ADMISSIONS DIRECTOR): ESRD on HD - hemodialysis catheter placement confirmed with CXR 09/20 - dialysis schedule MWF - last dialysis 09/21 Hyperparathyroidism - Vitamin D low (19.9) -DC'd vitamin D supplementation per nephrology due to hypercalcemia, nephrology recommending SestaMIBI scan -Started on send Salit 60 mg daily -Recommending ENT consult for possible 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 Assessment & Plan (09/22/2025 8:55 PM ADMISSIONS DIRECTOR): ESRD on HD - hemodialysis catheter placement confirmed with CXR 09/20 - dialysis schedule MWF - last dialysis 09/21 Hyperparathyroidism - Vitamin D low (19.9) -DC'd vitamin D supplementation per nephrology due to hypercalcemia, nephrology recommending SestaMIBI scan -Started on send Salit 60 mg daily -Recommending ENT consult for possible 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 Assessment & Plan (09/21/2025 9:54 AM ADMISSIONS DIRECTOR): ESRD on HD - hemodialysis catheter placement confirmed with CXR 09/20 - dialysis schedule MWF - per nephrology no dialysis F 09/20 Hyperparathyroidism - Nephrology recommending PTHrp, Vitamin D, Ionized Calcium (ordered) - Vitamin D low (19.9) - supplement D3 5000 units Assessment & Plan (09/20/2025 10:00 AM ADMISSIONS DIRECTOR): -HD per nephrology Cerebrovascular accident (CV A) [...] in right frontoparietal lobes (R MCA). Multiple ivzpv-ph-qealvlej small infarcts in left centrum semiovale and shin radiata (embolic pattern). CTA Head/Neck: Multifocal, severe intracranial arterial stenoses involving bilateral anterior, middle, posterior cerebral arteries and vertebrobasilar system. Concern for MICROWAVE [employer]IO TECHNICIAN vasculitis--LP and CSF studies not consistent; Rheumatology [...] in right frontoparietal lobes (R MCA). Multiple yxxvj-ph-mrndnkpv small infarcts in left centrum semiovale and shin radiata (embolic pattern). CTA Head/Neck: Multifocal, severe intracranial arterial stenoses involving bilateral anterior, middle, posterior cerebral arteries and vertebrobasilar system. Concern for MICROWAVE [employer] TECHNICIAN vasculitis--LP and CSF studies not consistent; Rheumatology [...] in right frontoparietal lobes (R MCA). Multiple mozof-pf-cosjfnfx small infarcts in left centrum semiovale and shin radiata (embolic pattern). CTA Head/Neck: Multifocal, severe intracranial arterial stenoses involving bilateral anterior, middle, posterior cerebral arteries and vertebrobasilar system. Concern for MICROWAVE [employer] TECHNICIAN vasculitis--LP and CSF studies not consistent; Rheumatology [...] in right frontoparietal lobes (R MCA). Multiple xpqvg-vx-jbkbniyl small infarcts in left centrum semiovale and shin radiata (embolic pattern). CTA Head/Neck: Multifocal, severe intracranial arterial stenoses involving bilateral anterior, middle, posterior cerebral arteries and vertebrobasilar system. Concern for MI[employer]AVE [employer] TECHNICIAN vasculitis--LP and CSF studies not consistent; Rheumatology [...] restricted diffusion concerning for acute infarction. -Multiple mbpvp-aq-anmgrojv small infarcts scattered in the left centrum [...] entire basilar artery. There was concern for [employer]AVE [employer]ICIAN vasculitis, however LP CSF studies are not [...] restricted diffusion concerning for acute infarction. -Multiple nqudl-qt-jyupdneq small infarcts scattered in the left centrum [...] entire basilar artery. There was concern for [employer]ICIAN vasculitis, however LP CSF studies. Rheumatology evaluated [...] in right frontoparietal lobes (R MCA). Multiple bbvhy-eq-kojodogn small infarcts in left centrum semiovale and shin radiata (embolic pattern). CTA Head/Neck: Multifocal, severe intracranial arterial stenoses involving bilateral anterior, middle, posterior cerebral arteries and vertebrobasilar system. Concern for MI[employer]AVE [employer] TECHNICIAN vasculitis--LP and CSF studies not consistent; Rheumatology [...] in right frontoparietal lobes (R MCA). Multiple lcfzd-re-izrfjmfp small infarcts in left centrum semiovale and shin radiata (embolic pattern). CTA Head/Neck: Multifocal, severe intracranial arterial stenoses involving bilateral anterior, middle, posterior cerebral arteries and vertebrobasilar system. Concern for MI[employer]AVE [employer] TECHNICIAN vasculitis--LP and CSF studies not consistent; Rheumatology [...] in right frontoparietal lobes (R MCA). Multiple neity-hu-mwbvaons small infarcts in left centrum semiovale and shin radiata (embolic pattern). CTA Head/Neck: Multifocal, severe intracranial arterial stenoses involving bilateral anterior, middle, posterior cerebral arteries and vertebrobasilar system. Concern for MICR[employer]AVE [employer]IO TECHNICIAN vasculitis--LP and CSF studies not consistent; Rheumatology [...] in right frontoparietal lobes (R MCA). Multiple ohmnw-gu-sjtwbbgp small infarcts in left centrum semiovale and shin radiata (embolic pattern). CTA Head/Neck: Multifocal, severe intracranial arterial stenoses involving bilateral anterior, middle, posterior cerebral arteries and vertebrobasilar system. Concern for MI[employer]AVE [employer]CHNICIAN vasculitis--LP and CSF studies not consistent; Rheumatology [...] restricted diffusion concerning for acute infarction. -Multiple kqbqq-jy-piijalyw small infarcts scattered in the left centrum [...] entire basilar artery. There was concern for [employer]ICIAN vasculitis, however LP CSF studies are not [...] restricted diffusion concerning for acute infarction. -Multiple peozt-sn-wsiezckr small infarcts scattered in the left centrum [...] entire basilar artery. There was concern for MI[employer]AVE [employer]CH[employer]ICIAN vasculitis, however LP CSF studies. Rheumatology evaluated [...] in right frontoparietal lobes (R MCA). Multiple itedk-cu-ppmdkanb small infarcts in left centrum semiovale and shin radiata (embolic pattern). CTA Head/Neck: Multifocal, severe intracranial arterial stenoses involving bilateral anterior, middle, posterior cerebral arteries and vertebrobasilar system. Concern for MI[employer]AVE [employer] TECHNICIAN vasculitis--LP and CSF studies not consistent; Rheumatology [...] in right frontoparietal lobes (R MCA). Multiple obrks-ib-zcdqswid small infarcts in left centrum semiovale and shin radiata (embolic pattern). CTA Head/Neck: Multifocal, severe intracranial arterial stenoses involving bilateral anterior, middle, posterior cerebral arteries and vertebrobasilar system. Concern for MI[employer]AVE [employer] TECHNICIAN vasculitis--LP and CSF studies not consistent; Rheumatology [...] in right frontoparietal lobes (R MCA). Multiple yzile-ai-dbblrdef small infarcts in left centrum semiovale and shin radiata (embolic pattern). CTA Head/Neck: Multifocal, severe intracranial arterial stenoses involving bilateral anterior, middle, posterior cerebral arteries and vertebrobasilar system. Concern for MICROWAVE RADIO TECHNICIAN vasculitis--LP and CSF studies not consistent; Rheumatology [...] in right frontoparietal lobes (R MCA). Multiple yqmwy-nc-goremqwd small infarcts in left centrum semiovale and shin radiata (embolic pattern). CTA Head/Neck: Multifocal, severe intracranial arterial stenoses involving bilateral anterior, middle, posterior cerebral arteries and vertebrobasilar system. Concern for MI[employer]AVE [employer]CHNICIAN vasculitis--LP and CSF studies not consistent; Rheumatology [...] restricted diffusion concerning for acute infarction. -Multiple prbov-ge-ahbncvjh small infarcts scattered in the left centrum [...] entire basilar artery. There was concern for MI[employer]AVE [employer]ICIAN vasculitis, however LP CSF studies are not [...] restricted diffusion concerning for acute infarction. -Multiple xduyz-bo-bfnxcvff small infarcts scattered in the left centrum [...] entire basilar artery. There was concern for MI[employer]AVE [employer]NICIAN vasculitis, however LP CSF studies. Rheumatology evaluated [...] -Continue home cinacalcet -Start on vitamin D 13694 units q7 days for 6 weeks. -Sestamibi [...] -Continue home cinacalcet -Start on vitamin D 97747 units q7 days for 6 weeks. -Sestamibi [...] -Continue home cinacalcet -Start on vitamin D 59036 units q7 days for 6 weeks. -Sestamibi [...] -Continue home cinacalcet -Start on vitamin D 98772 units q7 days for 6 weeks. -Sestamibi [...] -Continue home cinacalcet -Start on vitamin D 26715 units q7 days for 6 weeks. -Sestamibi [...] -Continue home cinacalcet -Start on vitamin D 26496 units q7 days for 6 weeks. -Sestamibi [...] in right frontoparietal lobes (R MCA). Multiple sgolb-ft-vvozhvyp small infarcts in left centrum semiovale and shin radiata (embolic pattern). CTA Head/Neck: Multifocal, severe intracranial arterial stenoses involving bilateral anterior, middle, posterior cerebral arteries and vertebrobasilar system. Concern for MICROWAVE [employer]CHNICIAN vasculitis--LP and CSF studies not consistent; Rheumatology [...] in right frontoparietal lobes (R MCA). Multiple npdvz-dk-mqhrklhj small infarcts in left centrum semiovale and shin radiata (embolic pattern). CTA Head/Neck: Multifocal, severe intracranial arterial stenoses involving bilateral anterior, middle, posterior cerebral arteries and vertebrobasilar system. Concern for MI[employer]AVE [employer] TECHNICIAN vasculitis--LP and CSF studies not consistent; Rheumatology [...] in right frontoparietal lobes (R MCA). Multiple ynezt-yz-squdgiiu small infarcts in left centrum semiovale and shin radiata (embolic pattern). CTA Head/Neck: Multifocal, severe intracranial arterial stenoses involving bilateral anterior, middle, posterior cerebral arteries and vertebrobasilar system. Concern for MICR[employer]AVE [employer] TECHNICIAN vasculitis--LP and CSF studies not consistent; Rheumatology [...] in right frontoparietal lobes (R MCA). Multiple yaybr-zh-kptzrqnu small infarcts in left centrum semiovale and shin radiata (embolic pattern). CTA Head/Neck: Multifocal, severe intracranial arterial stenoses involving bilateral anterior, middle, posterior cerebral arteries and vertebrobasilar system. Concern for MI[employer]AVE [employer] TECHNICIAN vasculitis--LP and CSF studies not consistent; Rheumatology [...] restricted diffusion concerning for acute infarction. -Multiple oguoc-bz-fjfdflvr small infarcts scattered in the left centrum [...] entire basilar artery. There was concern for MI[employer]AVE [employer]NICIAN vasculitis, however LP CSF studies are not [...] restricted diffusion concerning for acute infarction. -Multiple mclqk-cv-tfqqwjyn small infarcts scattered in the left centrum [...] entire basilar artery. There was concern for MI[employer]AVE [employer]CHNICIAN vasculitis, however LP CSF studies. Rheumatology evaluated [...] restricted diffusion concerning for acute infarction. -Multiple oclnz-nd-zyuojkat small infarcts scattered in the left centrum [...] and entire basilar artery. 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 Additional Studies / Interventions: TTE: EF 55%, no intracardiac shunt. LEX negative; ANCA <1:20, PR3 = 0, MPO = 0. LP performed by Neuroradiology on 05/07; CSF studies pending. NSGY consulted for possible brain mass--no discrete lesion on MRI; no indication for biopsy. Records requested from [facility]; no relevant data received. Plan: Resume aspirin [...] the entire basilar artery. Concern for potential [employer]AVE [employer] TECHNICIAN vasculitis. Plan: -Obtained records from [facility], no relevant materials were provided unfortunately. -GOC [...] the entire basilar artery. Concern for potential [employer]AVE [employer] TECHNICIAN vasculitis. Plan: -Obtained records from [facility], no relevant materials were provided unfortunately. -GOC [...] the entire basilar artery. Concern for potential MICR[employer]AVE [employer] TECHNICIAN vasculitis. Plan: -Obtained records from [facility], no relevant materials were provided unfortunately. -GOC [...] the entire basilar artery. Concern for potential MICR[employer]AVE [employer] TECHNICIAN vasculitis. Plan: -Obtained records from [facility], no relevant materials were provided unfortunately. -Will have [facility] discussion with patient and POA this PM. [...] the entire basilar artery. Concern for potential MICR[employer]AVE [employer] TECHNICIAN vasculitis. Plan: -Obtained records from [facility], no relevant materials were provided unfortunately. -Will [...] Plan: -Will attempt to obtain records from [facility] to further clarify patient's breast cancer [...] in right frontoparietal lobes (R MCA). Multiple lwxrn-xy-srvauxdi small infarcts in left centrum semiovale and shin radiata (embolic pattern). CTA Head/Neck: Multifocal, severe intracranial arterial stenoses involving bilateral anterior, middle, posterior cerebral arteries and vertebrobasilar system. Concern for MI[employer]AVE [employer] TECHNICIAN vasculitis--LP and CSF studies not consistent; Rheumatology [...] in right frontoparietal lobes (R MCA). Multiple hnosm-ga-mxibtemg small infarcts in left centrum semiovale and shin radiata (embolic pattern). CTA Head/Neck: Multifocal, severe intracranial arterial stenoses involving bilateral anterior, middle, posterior cerebral arteries and vertebrobasilar system. Concern for MICROWAVE RAD[employer] TECHNICIAN vasculitis--LP and CSF studies not consistent; Rheumatology [...] in right frontoparietal lobes (R MCA). Multiple ayicq-fj-jgjlrwbf small infarcts in left centrum semiovale and shin radiata (embolic pattern). CTA Head/Neck: Multifocal, severe intracranial arterial stenoses involving bilateral anterior, middle, posterior cerebral arteries and vertebrobasilar system. Concern for MICROWAVE RAD[employer] TECHNICIAN vasculitis--LP and CSF studies not consistent; Rheumatology [...] in right frontoparietal lobes (R MCA). Multiple tuqpl-it-bhegmpxe small infarcts in left centrum semiovale and shin radiata (embolic pattern). CTA Head/Neck: Multifocal, severe intracranial arterial stenoses involving bilateral anterior, middle, posterior cerebral arteries and vertebrobasilar system. Concern for MICR[employer]AVE [employer] TECHNICIAN vasculitis--LP and CSF studies not consistent; Rheumatology [...] restricted diffusion concerning for acute infarction. -Multiple gfwwu-sx-aynrhgtq small infarcts scattered in the left centrum [...] entire basilar artery. There was concern for MI[employer]AVE [employer]ICIAN vasculitis, however LP CSF studies are not [...] restricted diffusion concerning for acute infarction. -Multiple oryvh-im-rpxinfgs small infarcts scattered in the left centrum [...] entire basilar artery. There was concern for MI[employer]AVE [employer]CHNICIAN vasculitis, however LP CSF studies. Rheumatology evaluated [...] restricted diffusion concerning for acute infarction. -Multiple tljvd-ek-jfoyiadh small infarcts scattered in the left centrum [...] and entire basilar artery. 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 Additional Studies / Interventions: TTE: EF 55%, no intracardiac shunt. LEX negative; ANCA <1:20, PR3 = 0, MPO = 0. LP performed by Neuroradiology on 05/07; CSF studies pending. NSGY consulted for possible brain mass--no discrete lesion on MRI; no indication for biopsy. Records requested from [facility]; no relevant data received. Plan: Resume aspirin [...] the entire basilar artery. Concern for potential MI[employer]AVE [employer] TECHNICIAN vasculitis. Plan: -Obtained records from [facility], no relevant materials were provided unfortunately. -GOC [...] the entire basilar artery. Concern for potential MICROWAVE RAD[employer] TECHNICIAN vasculitis. Plan: -Obtained records from [facility], no relevant materials were provided unfortunately. -GOC [...] the entire basilar artery. Concern for potential MICROWAVE RAD[employer] TECHNICIAN vasculitis. Plan: -Obtained records from [facility], no relevant materials were provided unfortunately. -GOC [...] the entire basilar artery. Concern for potential MICR[employer]AVE [employer] TECHNICIAN vasculitis. Plan: -Obtained records from [facility], no relevant materials were provided unfortunately. -Will [...] the entire basilar artery. Concern for potential MICR[employer]AVE [employer] TECHNICIAN vasculitis. Plan: -Obtained records from [facility], no relevant materials were provided unfortunately. -Will have [facility] discussion with patient and POA this PM. [...] -Continue home cinacalcet -Start on vitamin D 26056 units q7 days for 6 weeks. Assessment [...] ordered Will attempt to obtain records from [facility] to further clarify patient's breast cancer [...] 04/29/2025 Assessment & Plan (09/30/2025 1:23 PM ADMISSIONS DIRECTOR): -Initially admitted to stroke team found to have ischemic stroke, continue aspirin 81mg, Brilinta 90 mg started this admission, Lipitor increased from 40 to 80 mg -PT OT recommending SNF Assessment & Plan (09/29/2025 7:58 AM ADMISSIONS DIRECTOR): -Initially admitted to stroke team found to have ischemic stroke, continue aspirin 81mg, Brilinta 90 mg started this admission, Lipitor increased from 40 to 80 mg -PT OT recommending SNF Assessment & Plan (09/28/2025 10:59 AM ADMISSIONS DIRECTOR): -Initially admitted to stroke team found to have ischemic stroke, continue aspirin 81mg, Brilinta 90 mg started this admission, Lipitor increased from 40 to 80 mg -PT OT recommending SNF Assessment & Plan (09/27/2025 2:10 PM ADMISSIONS DIRECTOR): - Initially admitted to stroke team found to have ischemic stroke, continue aspirin 81mg, Brilinta 90 mg started this admission, Lipitor increased from 40 to 80 mg -PT OT recommending SNF Assessment & Plan (09/26/2025 8:35 AM ADMISSIONS DIRECTOR): - Initially admitted to stroke team found to have ischemic stroke, continue aspirin 81mg, Brilinta 90 mg started this admission, Lipitor increased from 40 to 80 mg -PT OT recommending SNF Assessment & Plan (09/25/2025 3:03 PM ADMISSIONS DIRECTOR): - Initially admitted to stroke team found to have ischemic stroke, continue aspirin 81mg, Brilinta 90 mg started this admission, Lipitor increased from 40 to 80 mg -PT OT recommending SNF Assessment & Plan (09/24/2025 5:48 PM ADMISSIONS DIRECTOR): -see above Assessment & Plan (09/23/2025 5:13 PM ADMISSIONS DIRECTOR): -see above Assessment & Plan (09/22/2025 7:39 AM ADMISSIONS DIRECTOR): -see above Assessment & Plan (09/21/2025 9:54 AM ADMISSIONS DIRECTOR): -see above Assessment & Plan (09/20/2025 9:27 AM ADMISSIONS DIRECTOR): Assessment & Plan (09/20/2025 8:16 AM ADMISSIONS DIRECTOR): -see above Assessment & Plan (05/07/2025 9:11 PM CDT): Encephalopathy / Stroke Workup to Date: Infectious/Metabolic: HIV negative, RPR negative, B12 and TSH within normal limits. MRI Brain (04/28/25): -Subacute infarction in the right frontoparietal lobes (R MCA territory) with some restricted diffusion concerning for acute infarction. -Multiple aylbj-za-qgngytbp small infarcts scattered in the left centrum [...] and entire basilar artery. 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 Additional Studies / Interventions: TTE: EF 55%, no intracardiac shunt. LEX negative; ANCA <1:20, PR3 = 0, MPO = 0. LP performed by Neuroradiology on 05/07; CSF studies pending. NSGY consulted for possible brain mass--no discrete lesion on MRI; no indication for biopsy. Records requested from [facility]; no relevant data received. Plan: Resume aspirin [...] the entire basilar artery. Concern for potential MICROWAVE RADIO TECHNICIAN vasculitis. Plan: -Obtained records from [facility], no relevant materials were provided unfortunately. -GOC [...] the entire basilar artery. Concern for potential [employer]CH[employer]ICIAN vasculitis. Plan: -Obtained records from [facility], no relevant materials were provided unfortunately. -GOC [...] the entire basilar artery. Concern for potential [employer] TECHNICIAN vasculitis. Plan: -Obtained records from [facility], no relevant materials were provided unfortunately. -GOC [...] the entire basilar artery. Concern for potential [employer]CR[employer] TECHNICIAN vasculitis. Plan: -Obtained records from [facility], no relevant materials were provided unfortunately. -Will [...] the entire basilar artery. Concern for potential [employer]CROWAVE [employer]IO TECHNICIAN vasculitis. Plan: -Obtained records from [facility], no relevant materials were provided unfortunately. -Will [...] -Continue home cinacalcet -Start on vitamin D 67432 units q7 days for 6 weeks. Assessment [...] restricted diffusion concerning for acute infarction. -Multiple gscnb-ec-gnrebtim small infarcts scattered in the left centrum [...] and entire basilar artery. 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 Additional Studies / Interventions: TTE: EF 55%, no intracardiac shunt. LEX negative; ANCA <1:20, PR3 = 0, MPO = 0. LP performed by Neuroradiology on 05/07; CSF studies pending. NSGY consulted for possible brain mass--no discrete lesion on MRI; no indication for biopsy. Records requested from [facility]; no relevant data received. Plan: Resume aspirin [...] the entire basilar artery. Concern for potential [employer]CR[employer]AVE [employer]IO TECHNICIAN vasculitis. Plan: -Obtained records from [facility], no relevant materials were provided unfortunately. -GOC [...] the entire basilar artery. Concern for potential [employer] TECHNICIAN vasculitis. Plan: -Obtained records from [facility], no relevant materials were provided unfortunately. -GOC [...] the entire basilar artery. Concern for potential [employer]CR[employer]AVE [employer]IO TECHNICIAN vasculitis. Plan: -Obtained records from [facility], no relevant materials were provided unfortunately. -GOC [...] the entire basilar artery. Concern for potential [employer]CR[employer]AVE [employer]IO TECHNICIAN vasculitis. Plan: -Obtained records from [facility], no relevant materials were provided unfortunately. -Will have [facility] discussion with patient and POA this PM. [...] the entire basilar artery. Concern for potential [employer]AVE [employer]IO TECHNICIAN vasculitis. Plan: -Obtained records from [facility], no relevant materials were provided unfortunately. -Will have [facility] discussion with patient and POA this PM. [...] -Continue home cinacalcet -Start on vitamin D 73588 units q7 days for 6 weeks. Assessment [...] -Continue home cinacalcet -Start on vitamin D 19351 units q7 days for 6 weeks. -Sestamibi [...] -Continue home cinacalcet -Start on vitamin D 75715 units q7 days for 6 weeks. -Sestamibi [...] -Continue home cinacalcet -Start on vitamin D 63471 units q7 days for 6 weeks. -Sestamibi [...] -Continue home cinacalcet -Start on vitamin D 36447 units q7 days for 6 weeks. -Sestamibi [...] -Continue home cinacalcet -Start on vitamin D 48214 units q7 days for 6 weeks. -Sestamibi [...] -Continue home cinacalcet -Start on vitamin D 89774 units q7 days for 6 weeks. -Sestamibi [...] -Continue home cinacalcet -Start on vitamin D 98014 units q7 days for 6 weeks. Assessment [...] -Continue home cinacalcet -Start on vitamin D 43236 units q7 days for 6 weeks. -Sestamibi [...] -Continue home cinacalcet -Start on vitamin D 80141 units q7 days for 6 weeks. -Sestamibi [...] -Continue home cinacalcet -Start on vitamin D 28390 units q7 days for 6 weeks. -Sestamibi [...] -Continue home cinacalcet -Start on vitamin D 87425 units q7 days for 6 weeks. -Sestamibi [...] -Continue home cinacalcet -Start on vitamin D 14050 units q7 days for 6 weeks. -Sestamibi [...] -Continue home cinacalcet -Start on vitamin D 49515 units q7 days for 6 weeks. -Sestamibi [...] -Continue home cinacalcet -Start on vitamin D 49499 units q7 days for 6 weeks. Assessment [...] 04/29/2025 Assessment & Plan (09/30/2025 1:23 PM ADMISSIONS DIRECTOR): -Nephrology following for maintenance dialysis Assessment & Plan (09/29/2025 7:58 AM ADMISSIONS DIRECTOR): -Nephrology following for maintenance dialysis Assessment & Plan (09/28/2025 10:59 AM ADMISSIONS DIRECTOR): -Nephrology following for maintenance dialysis Assessment & Plan (09/27/2025 2:10 PM ADMISSIONS DIRECTOR): -Nephrology following for maintenance dialysis Assessment & Plan (09/26/2025 8:35 AM ADMISSIONS DIRECTOR): -Nephrology following for maintenance dialysis Assessment & Plan (09/25/2025 3:03 PM ADMISSIONS DIRECTOR): -Nephrology following for maintenance dialysis Assessment & Plan (09/24/2025 5:48 PM ADMISSIONS DIRECTOR): ESRD on HD - hemodialysis catheter placement confirmed with CXR 09/20 - dialysis schedule MWF - last dialysis 09/21 Hyperparathyroidism - Vitamin D low (19.9) -DC'd vitamin D supplementation per nephrology due to hypercalcemia, nephrology recommending SestaMIBI scan -Started on send Salit 60 mg daily -Recommending ENT consult for possible 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 Assessment & Plan (09/23/2025 5:13 PM ADMISSIONS DIRECTOR): ESRD on HD - hemodialysis catheter placement confirmed with CXR 09/20 - dialysis schedule MWF - last dialysis 09/21 Hyperparathyroidism - Vitamin D low (19.9) -DC'd vitamin D supplementation per nephrology due to hypercalcemia, nephrology recommending SestaMIBI scan -Started on send Salit 60 mg daily -Recommending ENT consult for possible 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 Assessment & Plan (09/22/2025 8:55 PM ADMISSIONS DIRECTOR): ESRD on HD - hemodialysis catheter placement confirmed with CXR 09/20 - dialysis schedule MWF - last dialysis 09/21 Hyperparathyroidism - Vitamin D low (19.9) -DC'd vitamin D supplementation per nephrology due to hypercalcemia, nephrology recommending SestaMIBI scan -Started on send Salit 60 mg daily -Recommending ENT consult for possible 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 Assessment & Plan (09/21/2025 9:54 AM ADMISSIONS DIRECTOR): ESRD on HD - hemodialysis catheter placement confirmed with CXR 09/20 - dialysis schedule MWF - per nephrology no dialysis F 09/20 Hyperparathyroidism - Nephrology recommending PTHrp, Vitamin D, Ionized Calcium (ordered) - Vitamin D low (19.9) - supplement D3 5000 units Assessment & Plan (09/20/2025 9:27 AM ADMISSIONS DIRECTOR): Assessment & Plan (09/20/2025 10:00 AM ADMISSIONS DIRECTOR): -HD per nephrology Assessment & Plan (05/13/2025 [...] Assessment & Plan (05/03/2025 11:14 AM CDT): [facility] Quick Recap - Optional: Managed by nephrology -Consulted nephro to resume HD MWF (last HD session Thursday 04/26 per rehab facility) >No urgent HD needs at this time, plan on regular MWF time -Hold home sodium bicarb 1300 mg BID given mild alkalosis that has developed -Continue home cinacalcet 30 mg daily -CTM daily RFP -Access: [place] tunneled [place] Assessment & Plan (05/02/2025 1:40 PM CDT): [facility] Quick Recap - Optional: Managed by nephrology -Consulted nephro to resume HD MWF (last HD session Thursday 04/26 per rehab facility) >No urgent HD needs at this time, plan on regular MWF time -Hold home sodium bicarb 1300 mg BID given mild alkalosis that has developed -Continue home cinacalcet 30 mg daily -CTM daily RFP -Access: [facility] tunneled dialysis line Assessment & Plan (05/01/2025 2:51 PM CDT): [facility] Quick Recap - Optional: Managed by nephrology -Consulted nephro to resume HD MWF (last HD session Thursday 04/26 per rehab facility) >No urgent HD needs at this time, plan on regular MWF time -Hold home sodium bicarb 1300 mg BID given mild alkalosis that has developed -Continue home cinacalcet 30 mg daily -CTM daily RFP -Access: [place] [facility] Assessment & Plan (04/30/2025 11:34 AM CDT): [facility] Quick Recap - Optional: Managed by nephrology [...] Assessment & Plan (04/29/2025 3:05 PM CDT): [facility] Quick Recap - Optional: Managed by nephrology [...] Assessment & Plan (04/29/2025 2:52 PM CDT): [facility] Quick Recap - Optional: Managed by nephrology -Consulted nephro to resume HD MWF (last HD session Thursday 04/26 per rehab facility) >No urgent HD needs at this time -Hold home sodium bicarb 1300 mg BID given mild alkalosis that has developed -Continue home cinacalcet 30 mg daily -CTM daily RFP Primary hypertension 04/29/2025 Assessment & Plan (09/30/2025 1:23 PM ADMISSIONS DIRECTOR): -Continue Coreg 25 mg twice daily Assessment & Plan (09/29/2025 7:58 AM ADMISSIONS DIRECTOR): -Continue Coreg 25 mg twice daily Assessment & Plan (09/28/2025 10:59 AM ADMISSIONS DIRECTOR): -Continue Coreg 25 mg twice daily Assessment & Plan (09/27/2025 2:10 PM ADMISSIONS DIRECTOR): - Continue Coreg 25 mg twice daily Assessment & Plan (09/26/2025 8:35 AM ADMISSIONS DIRECTOR): - Continue Coreg 25 mg twice daily Assessment & Plan (09/25/2025 3:03 PM ADMISSIONS DIRECTOR): - Continue Coreg 25 mg twice daily Assessment & Plan (09/24/2025 5:48 PM ADMISSIONS DIRECTOR): -see above Assessment & Plan (09/23/2025 5:13 PM ADMISSIONS DIRECTOR): -see above Assessment & Plan (09/22/2025 7:39 AM ADMISSIONS DIRECTOR): -see above Assessment & Plan (09/21/2025 9:54 AM ADMISSIONS DIRECTOR): -see above Assessment & Plan (09/20/2025 9:27 AM ADMISSIONS DIRECTOR): Assessment & Plan (09/20/2025 8:16 AM ADMISSIONS DIRECTOR): -see above Assessment & Plan (05/13/2025 9:27 [...] 04/29/2025 Assessment & Plan (09/30/2025 1:23 PM ADMISSIONS DIRECTOR): -A1c 4.5 -Discontinue Accu-Cheks and sliding scale insulin, will monitor glucose on daily labs Assessment & Plan (09/29/2025 7:58 AM ADMISSIONS DIRECTOR): -A1c 4.5 -Discontinue Accu-Cheks and sliding scale insulin, will monitor glucose on daily labs Assessment & Plan (09/28/2025 8:21 AM ADMISSIONS DIRECTOR): -A1c 4.5 -Discontinue Accu-Cheks and sliding scale insulin, will monitor glucose on daily labs Assessment & Plan (09/27/2025 2:10 PM ADMISSIONS DIRECTOR): -A1c 4.5 -Discontinue Accu-Cheks and sliding scale insulin, will monitor glucose on daily labs Assessment & Plan (09/26/2025 8:35 AM ADMISSIONS DIRECTOR): -A1c 4.5 -Discontinue Accu-Cheks and sliding scale insulin, will monitor glucose on daily labs Assessment & Plan (09/25/2025 3:03 PM ADMISSIONS DIRECTOR): -A1c 4.5 -Discontinue Accu-Cheks and sliding scale insulin, will monitor glucose on daily labs Assessment & Plan (09/24/2025 5:48 PM ADMISSIONS DIRECTOR): On SSI Assessment & Plan (09/23/2025 5:13 PM ADMISSIONS DIRECTOR): On SSI Assessment & Plan (09/22/2025 7:39 AM ADMISSIONS DIRECTOR): On SSI Assessment & Plan (09/21/2025 9:54 AM ADMISSIONS DIRECTOR): On SSI Assessment & Plan (09/20/2025 9:27 AM ADMISSIONS DIRECTOR): Assessment & Plan (09/20/2025 8:16 AM ADMISSIONS DIRECTOR): On SSI Assessment & Plan (05/13/2025 9:27 [...]
--- OUTSIDE RECORDS SUMMARY | 2025-10-01 21:22 | XMS_ITS | Data Portability ---
Author Organization [place] - .[facility] [place], [facility] [place] Address [address] [place] [address] Assessment Encounter Date Assessment Date Assessment LastModified [...] By Organization Details Last Modified Time 06/01/2023 [id number] A healthy lifestyle: care instructions [email or web address] Not available 06/01/2023 12:20:18 GO TO ER [...] Address Organization Details Recorded Time Hypertensive disorder 24363625 Active 2022 COURTNEY Oakley - .[facility] 10:54:02 Hypercholestero lemia 92234825 Active 2022 RadhaCOURTNEY Vides - .[facility] 10:54:26 Diabetes mellitus 64433379 Active 2022 COURTNEY Oakley - .[facility] 10:55:12 Notes:hx of kidney failure Problem Notes None recorded. Procedures Surgical History Date Name Laterality Status Provider Name and Address Organization Details Recorded Time 023 Electrocardiogram ( EKG / ECG) completed Radha VALDEZ [facility] 06/01/2023 11:34:18 023 . Sent To ER completed Radha VALDEZ [facility] 06/01/2023 11:09:29 Imaging Results None recorded. Procedure [...] rate Body temperature Respiratory rate Oxygen saturation Body height Body mass index (BMI) Body weight Systolic And Diastolic Systolic And Diastolic Provider Name and Address Organization Details Last Updated DateTime 3 76 /min 97.8 [degF] 16 /min 99 % 166.37 cm 37.7 kg/m2 615051. 25 g 79/51 mm[Hg] 88/58 mm[Hg] Radha VALDEZ - .[facility] 3 11:05:20 Social History None recorded. Functional Status None recorded. Mental Status None recorded. Family History Nothing Reported. Medical History No medical history recorded. Gynecological HistoryNo gynecological history recorded. Obstetrics History GPAL:G 0 P 0 0 0 0 Past Encounters Encounter ID Performer Location Encounter Start Date Encounter Closed Date Diagnosis/Indication Diagnosis SNOMED-CT Code Diagnosis ICD10 Code Diagnosis IMO Codes Diagnosis Note [id number] [facility] [address] [place] [address] 06/01/2023 10:28:44 06/01/2023 11:36:20 Nausea and vomiting 42466410 R11.2 Low blood pressure 75673 003 I95.9 Health Concerns Section Related Observation LastModified by Organization Detai ls LastModified Time None Recorded Concern Status LastModified by Organization Details LastModified Time None Recorded Advance Directives Directive None Recorded Payers Insurance Date Sequence Insurance Name Policy Number Policy Doran Covered Member ID Doran Member ID Guarantor Name 07/15/2023 1 myaNUMBER (O) ILONEX Gena Pierre [id number] Gena Pierre Notes Date Note Type Note Provider Name and Address Organization Details Recorded Time 06/01/2023 text/html Vomiting (withou t diarrhea) - cmdReported by PatientHPIFor patient presents with, patient reportsvomiting (without diarrhea) which began __ (7 days ago). For menstrual history, patient reportsnot menstruating. For pertinent findings, patient reportsno fever,no sweats,no headache,no vomiting blood,no diarrhea,no bloody stool,no possible ingestion of tainted food,no recent travel,no sick contacts,no prior abdominal surgery,no dysuria,no flank pain,no chest pain, andno shortness of breath. For chronic conditions considered and addressed, patient reportsdm (diabetes mellitus)andhtn (hypertension). Syncope - cmdReported by PatientHPIFor patient presents for an episode of, patient reportssyncope which happened __ (3 days ago). For pertinent findings, patient reports(+) nausea/vomitingand(+) dizziness with standing upbut reportsno shortness of breath,no headache,no fever,no diarrhea, andno heavy menses. For chronic conditions considered and addressed, patient reportsdm (diabetes mellitus)andhtn (hypertension). 62 y/o female w/ pmhx of kidney [...] hx of heart attacks. COURTNEY Vazquez - .[facility] 06/01/2023 14:05:46 OBGyn Episode No OBEpisode recorded.
[2025-10-01 22:38] LABS: Hematocrit 42.2 % (37.0-47.0); Hemoglobin 13.5 g/dL (12.0-15.0); Immature Granulocyte Percent A 0.4 % (0-0.5); Lymphocytes Absolute Auto 1.78 K/mm3 (0.9-3.2); Mean Corpuscular HGB Conc 32.0 g/dl (32-36); Mean Corpuscular Hemoglobin 28.7 pg (26-34); Mean Corpuscular Volume 89.8 fl (80-100); Nucleated Red Blood Cells Absolute Auto 0.000 K/mm3 (0.0-0.012); Nucleated Red Blood Cells Perc 0.0 % (0.0-0.2); Platelet Count Result 245 k/mm3 (150-375); Red Blood Count 4.70 M/mm3 (4.2-5.4); White Blood Count 17.4 K/mm3 (4.5-10.0)
[2025-10-01 23:00] LABS: INR 1.0; Prothrombin Time 13.5 Seconds (11.1-14.7)
[2025-10-01 23:01] LABS: Partial Thromboplastin Time 29.8 Seconds (22.3-36.8)
[2025-10-01 23:11] LABS: Alanine Aminotransferase 20 U/L (6-35); Albumin Level 4.7 g/dL (3.5-5.1); Alkaline Phosphatase 163 U/L (38-126); Anion Gap 15 mmol/L (4-12); Aspartate Amino Transferase 37 U/L (14-36); Bilirubin,Total 0.8 mg/dL (0.2-1.3); Blood Urea Nitrogen 26 mg/dL (7-17); Calcium 10.0 mg/dL (8.4-10.2); Carbon Dioxide 24 mmol/L (22-30); Chloride 93 mmol/L (98-107); Estimated CRCL calculation 8 ml/min; Estimated Glomerular Filt Rate 7; Glucose 145 mg/dL (65-110); Potassium 4.7 mmol/L (3.4-5.0); Sodium 132 mmol/L (137-145); Total Protein 9.2 g/dL (6.3-8.2)
[2025-10-01 23:26] LABS: CRP 6.9 mg/dL (<1.0)
[2025-10-02] VITALS (56 sets, daily range): BP systolic 70–134; BP diastolic 48–79; PULSE 83–115; RESP 8–20; TEMP 36.2–36.9; O2SAT 97–100; BMI 25.0
[2025-10-02] MEDS: SODIUM CHLORIDE 0.9% IV 1,000 ML 999 ML IV CONT
[2025-10-02 01:42] LABS: Influenza A QL RT-PCR Negative (Negative); Influenza B QL RT-PCR Negative (Negative); RSV RNA, RT-PCR Negative (Negative); SARS-CoV-2 RNA PCR Negative (Negative)
--- NOTE | 2025-10-02 01:50 | PC.NURSE ---
This RN spoke with Yesy and updated about pts POC and status
[2025-10-02] MEDS: PIPERACILLIN/TAZOBACTAM SOD 3.375 GM in SODIUM CHLORIDE 0.9% IV 50 ML 100 ML IVPB (02:31)
--- NOTE | 2025-10-02 02:35 | ED.GENADULT ---
HPI - General Adult General Chief complaint: Altered Mental Status Stated complaint: altered LOC Time Seen by Provider: 10/01/25 21:11 History of Present Illness HPI narrative: 65-year-old female presenting via EMS for altered mental status according to EMS. Patient is alert and oriented x1 at baseline. Family states that the patient was brought in due to abnormal vital signs including a blood pressure of 70/40 and oxygen saturations at 77% after returning from dialysis. Patient has a significant medical history of a stroke after Thanksgiving resulting in her decrease in mental status. She was just released from [facility] yesterday back to [facility]. Orientation unable to be assessed as patient is not responsive to questions. Related Data Home Medications ?Medication ?Instructions ?Recorded ?Confirmed ?Last Taken ?Type atorvastatin 40 mg tablet 80 mg PO DAILY 10/02/25 10/02/25 Unknown History carvedilol 25 mg tablet (Coreg) 25 mg PO BID 10/02/25 10/02/25 Unknown History folic acid 1 mg tablet 1 mg PO DAILY 10/02/25 10/02/25 Unknown History ticagrelor 90 mg tablet 90 mg PO HS 10/02/25 10/02/25 Unknown History venlafaxine 150 mg 150 mg PO HS 10/02/25 10/02/25 Unknown History capsule,extended release 24 hr (Effexor XR) Allergies Allergy/AdvReac Type Severity Reaction Status Date / Time lactose AdvReac Mild Gastrointestinal Verified 10/02/25 13:21 Upset Review of Systems Review of Systems: All systems reviewed & are unremarkable except as noted in HPI and below PMFSH Past Medical History Medical History Fall Acute right arterial ischemic stroke, MCA (middle cerebral artery) Chronic kidney disease, stage 5 Cancer of right breast (2004) Status post chemotherapy and mastectomy. Diabetic peripheral neuropathy Obesity (BMI 30-39.9) Essential hypertension End-stage renal disease on hemodialysis Chronic kidney disease due to hypertension and diabetes with final insult kidneys with severe rhabdomyolysis March 2023. Vitamin D deficiency Type 2 diabetes mellitus Anemia Normal colonoscopy (07/2011) Primary hyperparathyroidism (11/2020) Vaginal polyp Depression Anxiety Surgical History Surgical History History of right mastectomy History of hysteroscopy (2021) Family History Family History Mother Family history of lung cancer Hypertension Grandparent Cerebrovascular accident Diabetes mellitus Hypertension Son Family history of cardiovascular disease Heart disease Hypertension Father Unknown family medical history Social History Social History Social History: Surrogate decision maker: Adry Smith (sister). Code status: Full code. Smoking packs per day: 0.5 Smoking cigarettes per day: 10.0 Years smoked: 20 Smoking pack-years: 10.00 Smoking status: Former smoker Second hand tobacco smoke exposure: Yes Alcohol intake: never Alcohol use details: Very seldom Substance use: never Substance use type: does not use Lack of Transportation: No Lack of Food: Never True Current Housing: I Have Housing Concerned About Future Housing: No Difficulty Paying Gas/Electric Bills: No Difficulty Paying for Meds: No Currently Unemployed: No Education: High School Diploma/GED Difficulty w/ Childcare or Family Care: No Additional living arrangements comments: Lives in [place]. Additional occupation/education comments: Retired. Sexual Orientation (if Verbalized by the Patient): Straight or Heterosexual Spiritual care concerns: No Agree to blood products: Yes Exam Narrative: GENERAL: No acute distress. HEAD: Normocephalic, atraumatic. EYES: PERRLA and EOMI. ENT: Nares clear, no rhinorrhea or epistaxis. Mucous membranes moist. Oropharynx without tonsillar hypertrophy exudate or other lesions. Bilateral TMs pearly roy non-bulging NECK: Supple. No adenopathy or masses. No carotid bruits or JVD CHEST: Clear to auscultation. No respiratory distress. No wheezes rales or rhonchi HEART: Tachycardic. Regular rhythm. No murmur heard. Normal peripheral pulses. ABDOMEN: Soft, nontender, nondistended, normal active bowel sounds. BACK: No abnormalities. Loose, mildly bloody stool present in depends. EXTREMITIES: Normal range of motion. No edema. SKIN: Warm, dry, no rash. NEURO: No focal deficits. Alert and oriented x3. PSYCH: Normal mood and affect Course Vital Signs Vital signs: Vital Signs Pulse Rate 106 H 10/01/25 18:31 Respiratory Rate 17 10/01/25 18:31 Blood Pressure 107/68 10/01/25 18:31 Pulse Oximetry 97 10/01/25 18:31 Temperature 97.2 F L 10/03/25 06:00 Pulse Rate 71 10/03/25 12:00 Respiratory Rate 16 10/03/25 06:00 Blood Pressure 96/58 L 10/03/25 06:00 Pulse Oximetry 100 10/03/25 06:00 Oxygen Delivery Room Air 10/03/25 08:00 [facility] Narrative Medical decision making narrative: 65-year-old female presenting via EMS for altered mental status according to EMS. Patient is alert and oriented x1 at baseline. Family states that the patient was brought in due to abnormal vital signs including a blood pressure of 70/40 and oxygen saturations at 77% after returning from dialysis. Patient has a significant medical history of a stroke after Thanksgiving resulting in her decrease in mental status. She was just released from [facility] yesterday back to [facility]. Orientation unable to be assessed as patient is not responsive to questions. Upon my initial assessment patient is tachycardic and hypotensive. Sepsis protocol initiated. Performed a full skin assessment, palpating all areas; no signs of pain/injury or abnormal lesions. Observed mildly bloody, loose stools in the patient's diaper. Hemoccult positive. Labs demonstrated leukocytosis of 17.4. Metabolic panel demonstrated minimal changes compared to patient's baseline. CRP 6.9. D-dimer 3.30. Flu COVID RSV negative. CT brain demonstrates no acute intracranial abnormalities. CTA chest abdomen pelvis demonstrates a small pericardial effusion and pancolitis. Discussed with hospitalist Dr. Weiner patient presentation and workup. Agrees with admission at this time; recommending starting Zosyn. Administered 1 L fluids. Patient is stable pending transfer upstairs. Differential Diagnosis Differential Diagnosis: Differential diagnostic considerations for altered mental status include overdose (intentional, accidental or recreational), alcohol intoxication, substance abuse, metabolic encephalopathies, traumatic injury, ICH, elevated ICP, sepsis, withdrawal syndromes, delirium, dementia, hypoglycemia, hyponatremia. Medical Records I have reviewed the following patient records and this information was taken into consideration when formulating the assessment and plan.: previous labs, previous ER visits, previous hospitalizations and previous clinic visits Lab Data [facility] Lab Attestation statement: I personally reviewed the patient's lab results. 10/03/25 06:00 10/03/25 06:00 Labs: Lab Results 10/01/25 10/01/25 10/01/25 Range/Units 18:32 22:26 22:56 WBC 17.4 H (4.5-10.0) K/mm3 RBC 4.70 (4.2-5.4) M/mm3 Hgb 13.5 (12.0-15.0) g/dL Hct 42.2 (37.0-47.0) % MCV 89.8 (80-100) fl MCH 28.7 (26-34) pg MCHC 32.0 (32-36) g/dl RDW 15.1 H (11.5-14.5) % Plt Count 245 (150-375) k/mm3 MPV 11.6 H (7.4-10.4) fl Immature Gran % (Auto) 0.4 (0-0.5) % Neut % (Auto) 77.6 H (45.5-73.1) % Lymph % (Auto) 10.2 L (18.3-44.2) % [place] % (Auto) 11.4 H (2.6-8.5) % Eos % (Auto) 0.1 (0-4.4) % Baso % (Auto) 0.3 (0.2-1.2) % Lymph # (Auto) 1.78 (0.9-3.2) K/mm3 [place] # (Auto) 2.0 H (0.1-0.6) K/mm3 Eos # (Auto) 0.0 (0-0.3) K/mm3 Baso # (Auto) 0.1 (0.0-0.1) K/mm3 Abs Immat Gran (auto) 0.07 H (0.00-0.031) K/mm3 Absolute Neuts (auto) 13.5 H (1.3-6.7) K/mm3 Absolute Nucleated RBC 0.000 (0.0-0.012) K/mm3 Nucleated RBC % 0.0 (0.0-0.2) % PT 13.5 (11.1-14.7) Seconds INR 1.0 APTT 29.8 (22.3-36.8) Seconds D-Dimer 3.30 H (<0.48) ug/mL Sodium 132 L (137-145) mmol/L Potassium 4.7 (3.4-5.0) mmol/L Chloride 93 L (98-107) mmol/L Carbon Dioxide 24 (22-30) mmol/L Anion Gap 15 H (4-12) mmol/L BUN 26 H (7-17) mg/dL Creatinine 5.87 H (0.7-1.0) mg/dL Estim Creat Clear Calc 8 ml/min Estimated GFR 7 L (59 - ) Glucose 145 H (65-110) mg/dL POC Capillary Glucose 219 H (65-105) mg/dl Lactic Acid (0.7-2.0) mmol/L Calcium 10.0 (8.4-10.2) mg/dL Total Bilirubin 0.8 (0.2-1.3) mg/dL AST 37 H (14-36) U/L ALT 20 (6-35) U/L Alkaline Phosphatase 163 H (38-126) U/L C-Reactive Protein 6.9 H (<1.0) mg/dL Total Protein 9.2 H (6.3-8.2) g/dL Albumin 4.7 (3.5-5.1) g/dL Nasal MRSA (PCR) (NOT DETECTE) Influenza A (RT-PCR) (Negative) Influenza B (RT-PCR) (Negative) RSV (RT-PCR) (Negative) SARS-CoV-2 RNA (RT-PCR) (Negative) 10/02/25 10/02/25 10/02/25 Range/Units 00:58 17:21 17:36 WBC (4.5-10.0) K/mm3 RBC (4.2-5.4) M/mm3 Hgb (12.0-15.0) g/dL Hct (37.0-47.0) % MCV (80-100) fl MCH (26-34) pg MCHC (32-36) g/dl RDW (11.5-14.5) % Plt Count (150-375) k/mm3 MPV (7.4-10.4) fl Immature Gran % (Auto) (0-0.5) % Neut % (Auto) (45.5-73.1) % Lymph % (Auto) (18.3-44.2) % [place] % (Auto) (2.6-8.5) % Eos % (Auto) (0-4.4) % Baso % (Auto) (0.2-1.2) % Lymph # (Auto) (0.9-3.2) K/mm3 [place] # (Auto) (0.1-0.6) K/mm3 Eos # (Auto) (0-0.3) K/mm3 Baso # (Auto) (0.0-0.1) K/mm3 Abs Immat Gran (auto) (0.00-0.031) K/mm3 Absolute Neuts (auto) (1.3-6.7) K/mm3 Absolute Nucleated RBC (0.0-0.012) K/mm3 Nucleated RBC % (0.0-0.2) % PT (11.1-14.7) Seconds INR APTT (22.3-36.8) Seconds D-Dimer (<0.48) ug/mL Sodium (137-145) mmol/L Potassium (3.4-5.0) mmol/L Chloride (98-107) mmol/L Carbon Dioxide (22-30) mmol/L Anion Gap (4-12) mmol/L BUN (7-17) mg/dL Creatinine (0.7-1.0) mg/dL Estim Creat Clear Calc ml/min Estimated GFR (59 - ) Glucose (65-110) mg/dL POC Capillary Glucose 90 (65-105) mg/dl Lactic Acid 1.8 (0.7-2.0) mmol/L Calcium (8.4-10.2) mg/dL Total Bilirubin (0.2-1.3) mg/dL AST (14-36) U/L ALT (6-35) U/L Alkaline Phosphatase (38-126) U/L C-Reactive Protein (<1.0) mg/dL Total Protein (6.3-8.2) g/dL Albumin (3.5-5.1) g/dL Nasal MRSA (PCR) Not detected (NOT DETECTE) Influenza A (RT-PCR) Negative (Negative) Influenza B (RT-PCR) Negative (Negative) RSV (RT-PCR) Negative (Negative) SARS-CoV-2 RNA (RT-PCR) Negative (Negative) Imaging Data Radiologist's impression: ITS Impressions Head CT 10/02/25 07:24 IMPRESSION: 1. No acute intracranial findings. Chest/Abdomen/Pelvis CTA 10/02/25 07:31 IMPRESSION: 1. No pulmonary embolus. 2. Small pericardial effusion. 3. Pancolitis. ECG Data EKG #1: ECG completion date: 10/01/25 ECG completion time: 19:08 tachycardia, sinus rhythm and no acute changes Discharge Plan Discharge Clinical Impression: Pancolitis, End-stage renal disease on hemodialysis Patient Disposition: Still a Patient Condition: Stable
--- NOTE | 2025-10-02 07:14 | PC.NURSE ---
Took report on patient at [phone]
--- NOTE | 2025-10-02 07:24 | PC.NURSE ---
EDP made aware of patients blood pressure of 87/63, see MAR for orders.
--- NOTE | 2025-10-02 07:33 | PC.NURSE ---
Called Dr. De La Paz at 0727 to report a low blood pressure. Dr De La Paz instructed to me to call Dr. El.
--- NOTE | 2025-10-02 07:35 | PC.NURSE ---
Called Dr El at [phone] and was informed he is not electronic maintenance supervisor at this time.
[2025-10-02] MEDS: SODIUM CHLORIDE 0.9% IV 500 ML 999 ML IV CONT (07:45)
--- NOTE | 2025-10-02 07:45 | PC.NURSE ---
EDP gave verbal order to run the normal saline at 250 mL/ hour for the 500 mL.
--- OUTSIDE RECORDS SUMMARY | 2025-10-02 08:37 | XMS_ITS | Clinical Summary ---
Author Organization [facility] Address [facility] [place] [address] Care Team Providers Care Glue Drier Operator Name Role Phone Monster Garza MD Primary Care Provider [phone] Allergies Active Allergy Reactions Criticality Noted Date [...] Department Care Team Description 09/17/2025 6:02 PM MOLYBDENUM STEAMER OPERATOR - 09/19/2025 9:35 PM [facility] Hospital Encounter [facility] [place] [address] Dong Shannon, Daljit Junior, Sujata Remy MD [...] declined 09/18/2025 How often do you attend rastafarian or confucianism serv ices? Patient declined 09/18/2025 Do you belong to any clubs o r organizations such as rastafarian groups, unions, fraternal or athletic groups, or [...] and heating? Not hard at all 09/18/2025 [facility] of Occupat ional [facility] - Occupational Stress Questionnaire Answer Date [...] were you homeless or living in a prison (including now)? No 09/18/2025 B1300 Health Literacy Answer Date Recor ded How often do you need to hav e someone help you when you read instructions, pamphlets, or other written material from your doctor or pharmacy? Never 09/18/2025 [facility] Utilities Answer Date Recorded In the past 12 months has e [employer], gas, oil, or water [employer] threatened to shut off services in your home? Patient declined 09/18/2025 Comments Unknown Sex and Gender Information Value Date Recorded Sex Assigned at Female 09/17/2025 7:55 PM MOLYBDENUM STEAMER OPERATOR Legal Sex Female 9:33 AM MOLYBDENUM STEAMER OPERATOR Gender Identity Female 09/18/2025 7:05 AM MOLYBDENUM STEAMER OPERATOR Sexual Orientation Straight 09/18/2025 7: 05 AM MOLYBDENUM STEAMER OPERATOR Last Filed Vital Signs Vital Sign Reading Time Taken Comments Blood Pressure 121/69 09/19/2025 7:03 PM MOLYBDENUM STEAMER OPERATOR Pulse 81 09/19/2025 7:03 PM MOLYBDENUM STEAMER OPERATOR Temperature 36.2 C (97.2 F) 09/19/2025 7:03 PM MOLYBDENUM STEAMER OPERATOR Respiratory Rate 18 09/19/2025 7:03 PM MOLYBDENUM STEAMER OPERATOR Oxygen Saturation 99% 09/19/2025 7:03 PM MOLYBDENUM STEAMER OPERATOR Inhaled Oxygen Concentration - - Weight 71.2 kg (156 lb 15.5 oz) 09/19/2025 3:55 AM MOLYBDENUM STEAMER OPERATOR Height 165.1 cm (5' 5) 09/18/2025 12:3 6 AM MOLYBDENUM STEAMER OPERATOR Body Mass Index 26.12 09/18/2025 12:36 AM MOLYBDENUM STEAMER OPERATOR Plan of Treatment Health Maintenance Due Date [...] NECK WO CON Today 09/19/2025 3:57 PM MOLYBDENUM STEAMER OPERATOR MRA HEAD WO CON Today 09/19/2025 3:53 PM MOLYBDENUM STEAMER OPERATOR EEG ROUTINE STAT 09/18/2025 10:03 PM MOLYBDENUM STEAMER OPERATOR POCT GLUCOSE - DOCKED DEVICE Routine 09/18/2025 9:21 PM MOLYBDENUM STEAMER OPERATOR POCT GLUCOSE - DOCKED DEVICE Routine 09/18/2025 1:54 PM MOLYBDENUM STEAMER OPERATOR MRI BRAIN WO CON Today 09/18/2025 8:11 AM MOLYBDENUM STEAMER OPERATOR HEPATITIS B SURFACE AG, EIA STAT 09/18/2025 7:23 AM MOLYBDENUM STEAMER OPERATOR HEPATITIS B POST-VACCINE ANTIBODY STAT 09/18/2025 7:23 AM MOLYBDENUM STEAMER OPERATOR RESPIRATORY PCR PANEL 2 STAT 09/18/2025 5:00 AM MOLYBDENUM STEAMER OPERATOR DRUG SCREEN RAPID STAT 09/17/2025 11: 08 PM MOLYBDENUM STEAMER OPERATOR URINALYSIS STAT 09/17/2025 11:08 PM MOLYBDENUM STEAMER OPERATOR CULTURE, BACTERIA, BLOOD STAT 09/17/2025 8:45 PM MOLYBDENUM STEAMER OPERATOR CULTURE, BACTERIA, BLOOD STAT 09/17/2025 8:45 PM MOLYBDENUM STEAMER OPERATOR RESPIRATORY PCR PNL LIMITED STAT 09/17/2025 8:08 PM MOLYBDENUM STEAMER OPERATOR CT HEAD WO CON STAT 09/17/2025 7:25 PM MOLYBDENUM STEAMER OPERATOR ECG 12-LEAD Routine 09/17/2025 6:40 PM MOLYBDENUM STEAMER OPERATOR AMMONIA STAT 09/17/2025 6:27 PM MOLYBDENUM STEAMER OPERATOR ETHANOL STAT 09/17/2025 6:27 PM MOLYBDENUM STEAMER OPERATOR MAGNESIUM STAT 09/17/2025 6:27 PM MOLYBDENUM STEAMER OPERATOR LACTIC ACID W REFLEX (SEPSIS) STAT 09/17/2025 6:27 PM MOLYBDENUM STEAMER OPERATOR TROPONIN, QUANT STAT 09/17/2025 6:27 PM MOLYBDENUM STEAMER OPERATOR COMPREHENSIVE METABOLIC PANEL STAT 09/17/2025 6:27 PM MOLYBDENUM STEAMER OPERATOR HC CBC AUTO W/AUTO DIFF STAT 09/17/2025 6:27 PM MOLYBDENUM STEAMER OPERATOR XR CHEST PORTABLE STAT 09/17/2025 6:2 2 PM MOLYBDENUM STEAMER OPERATOR POCT GLUCOSE - DOCKED DEVICE Routine 09/17/2025 5:57 PM MOLYBDENUM STEAMER OPERATOR from Last 3 Months Results * MRA NECK WO CON (09/19/2025 3:57 PM MOLYBDENUM STEAMER OPERATOR) Anatomical Region Laterality Modality Neck Magnetic Resonan ce 09/19/2025 6:42 PM MOLYBDENUM STEAMER OPERATOR Impressions 09/19/2025 6:55 PM MOLYBDENUM STEAMER OPERATOR IMPRESSION: 1. Near complete occlusion of the [...] to hospitalist on-call by Dr. Douglas via Kalion at 09/19/2025 6:54 PM (central time). Referred By: Interpreted By: Micheal Douglas MD, 09/19/2025 6:42 PM Narrative 09/19/2025 6:55 PM MOLYBDENUM STEAMER OPERATOR [address] [address] EXAMINATION: MRA head without contrast, MRA neck without contrast [id number] EXAM DATE/TIME: 09/19/2025 3:29 PM REASON FOR EXAM: stroke, altered mental status COMPARISON: Brain MRI 09/18/2025 TECHNIQUE: 3-D xovn-ah-hhxopk imaging was obtained of the intracranial arterial vasculature without the use of contrast agent. Subsequent 3-D rotational MIP reconstructions of the anterior and posterior circulations are created on separate workstation for review. Additionally, 2D uzik-se-lvzzpz imaging obtained of the cervical arterial vasculature. [...] Procedure Note Micheal Douglas MD - 09/19/[address] [address] EXAMINATION: MRA head without contrast, MRA neck without contrast [id number] EXAM DATE/TIME: 09/19/2025 3:29 PM REASON FOR EXAM: stroke, altered mental status COMPARISON: Brain MRI 09/18/2025 TECHNIQUE: 3-D kump-yr-souqch imaging was obtained of the intracranialarterial vasculature without the use of contrast agent. Subsequent 3-Drotational MIP reconstructions of the anterior and posterior circulationsare created on separate workstation for review. Additionally, 6Kdlhb-qb-abhvfk imaging obtained of the cervical arterial vasculature.Subsequent [...] to hospitalist on-call by Dr. Douglas via [employer] at 09/19/2025 6:54 PM (central time). Referred By: Interpreted By: Micheal Douglas MD, 09/19/2025 6:42 PM Jorge L Hall MD MRI Final Res ult * MRA HEAD WO CON (09/19/2025 3:53 PM MOLYBDENUM STEAMER OPERATOR) Anatomical Region Laterality Modality Head Magnetic Resonan ce 09/19/2025 6:42 PM MOLYBDENUM STEAMER OPERATOR Impressions 09/19/2025 6:55 PM MOLYBDENUM STEAMER OPERATOR IMPRESSION: 1. Near complete occlusion of the [...] 09/19/2025 6:42 PM Narrative 09/19/2025 6:55 PM MOLYBDENUM STEAMER OPERATOR [address] [address] EXAMINATION: MRA head without contrast, MRA neck without contrast [id number] EXAM DATE/TIME: 09/19/2025 3:29 PM REASON FOR EXAM: stroke, altered mental status COMPARISON: Brain MRI 09/18/2025 TECHNIQUE: 3-D gnvq-sg-kvkzvn imaging was obtained of the intracranial arterial vasculature without the use of contrast agent. Subsequent 3-D rotational MIP reconstructions of the anterior and posterior circulations are created on separate workstation for review. Additionally, 2D smyv-zc-sqxzcf imaging obtained of the cervical arterial vasculature. [...] Procedure Note Micheal Douglas MD - 09/19/[address] [address] EXAMINATION: MRA head without contrast, MRA neck without contrast [id number] EXAM DATE/TIME: 09/19/2025 3:29 PM REASON FOR EXAM: stroke, altered mental status COMPARISON: Brain MRI 09/18/2025 TECHNIQUE: 3-D jvri-ke-bfhdjg imaging was obtained of the intracranialarterial vasculature without the use of contrast agent. Subsequent 3-Drotational MIP reconstructions of the anterior and posterior circulationsare created on separate workstation for review. Additionally, [id number]-ja-vpnqej imaging obtained of the cervical arterial vasculature.Subsequent [...] to hospitalist on-call by Dr. Douglas via Qbix at 09/19/2025 6:54 PM (central time). Referred By: Interpreted By: Micheal Douglas MD, 09/19/2025 6:42 PM us Jorge L Hall MD MRI Final Res ult * EEG (09/18/2025 10:03 PM MOLYBDENUM STEAMER OPERATOR) Narrative [facility] - 09/18/2025 10:03 PM MOLYBDENUM STEAMER OPERATOR Lonnie Mcgee MD 09/18/2025 10:29 PM Date [...] Maximum wakefulness was not tested by the termite technician, and therefore, no reliable posterior dominant [...] None of the movements documented by the termite technician were associated with abnormal EEG. Impression: [...] ORDERABLES Final R esult Performing Organization Address [facility] Co de Phone Number [facility] [address] [place] [address], [place] [phone] * POCT glucose (09/18/2025 9:21 PM MOLYBDENUM STEAMER OPERATOR) Only the most recent of3 resultswithin the time period is included. [facility] Signature GLUCOSE POC 87 70 - 99 mg/dL 09/18/2025 9:23 PM MOLYBDENUM STEAMER OPERATOR [facility] 09/18/2025 9:21 PM MOLYBDENUM STEAMER OPERATOR Sujata Esquivel MD POCT ORDERABLES - DEVICE Fin al Result Performing Organization Address [facility] Co de Phone Number [facility] [address] [place] [address], [place] [phone] * MRI BRAIN WO CON (09/18/2025 8:11 AM MOLYBDENUM STEAMER OPERATOR) Anatomical Region Laterality Modality Head Magnetic Resonan ce 09/18/2025 9:02 AM MOLYBDENUM STEAMER OPERATOR Impressions 09/18/2025 9:06 AM MOLYBDENUM STEAMER OPERATOR IMPRESSION: 1. Focal ovoid restricted diffusion within [...] AM Findings delivered to Dr. Esquivel via [employer] secure messaging at the time of dictation. Narrative 09/18/2025 9:06 AM MOLYBDENUM STEAMER OPERATOR [address] [address] Examination: MRI BRAIN WO CON, 09/18/2025 7:41 [...] Note Gary, Jarod M, MD - 09/18/2025 [facility] [address] [place], [place] [address] Examination: MRI BRAIN WO CON, 09/18/2025 7:41 [...] AM Findings delivered to Dr. Esquivel via [employer] messaging at the time of dictation. Daljit Jean DO MRI Final Result * HEPATITIS B SURFACE AG, EIA (09/18/2025 7:23 AM MOLYBDENUM STEAMER OPERATOR) [facility] HEPATITIS B SURFACE AG NON-REACTI VE NON-REACTI VE 09/18/2025 8:20 AM MOLYBDENUM STEAMER OPERATOR [facility] BLOOD VENOUS BLOOD SPECIMEN / Unknown 09/18/2025 7:23 AM MOLYBDENUM STEAMER OPERATOR Dipti Montilla MD LABORATORY Final Result Performing Organization Address City/[facility]/ZIP Co de Phone Number [facility] [address] [place] [address], [place] [phone] * HEPATITIS B POST-VACCINE ANTIBODY (09/18/2025 7:23 AM MOLYBDENUM STEAMER OPERATOR) [facility] HEP B SURFACE AB 70.85 mIU/mL 09/18/2025 8:41 AM MOLYBDENUM STEAMER OPERATOR [facility] Comment: REFERENCE RANGE >=12.00 PATIENT DOES HAVE IMMUNITY TO HEPATITIS B VIRUS BLOOD VENOUS BLOOD SPECIMEN / Unknown 09/18/2025 7:23 AM MOLYBDENUM STEAMER OPERATOR Dipti Montilla MD LABORATORY Final Result Performing Organization Address City/[facility] Co de Phone Number [facility] [address] [place] [address], [place] [phone] * RESPIRATORY PCR PANEL 2 (09/18/2025 5:00 AM MOLYBDENUM STEAMER OPERATOR) [facility] ADENOVIRUS PCR (RESP) NOT DETECTED NOT DETECTED 09/18/2025 7:39 AM MOLYBDENUM STEAMER OPERATOR [facility] CORONAVIRUS 229E PCR (RESP) NOT DETECTED NOT DETECTED 09/18/2025 7:39 AM MOLYBDENUM STEAMER OPERATOR [facility] CORONAVIRUS HKU1 PCR (RESP) NOT DETECTED NOT DETECTED 09/18/2025 7:39 AM MOLYBDENUM STEAMER OPERATOR [facility] CORONAVIRUS NL63 PCR (RESP) NOT DETECTED NOT DETECTED 09/18/2025 7:39 AM [facility] CORONAVIRUS OC43 PCR (RESP) NOT DETECTED NOT DETECTED 09/18/2025 7:39 AM [facility] METAPNEUMOVIRUS PCR (RESP) NOT DETECTED NOT DETECTED 09/18/2025 7:39 AM [facility] RHINOVIRUS/ENTEROV IRUS PCR (RESP) NOT DETECTED NOT DETECTED 09/18/2025 7:39 AM [facility] INFLUENZA A PCR (RESP) NOT DETECTED NOT DETECTED 09/18/2025 7:39 AM [facility] INFLUENZA B PCR (RESP) NOT DETECTED NOT DETECTED 09/18/2025 7:39 AM [facility] PARAINFLUENZA 1 PCR (RESP) NOT DETECTED NOT DETECTED 09/18/2025 7:39 AM [facility] PARAINFLUENZA 2 PCR (RESP) NOT DETECTED NOT DETECTED 09/18/2025 7:39 AM [facility] PARAINFLUENZA 3 PCR (RESP) NOT DETECTED NOT DETECTED 09/18/2025 7:39 AM [facility] PARAINFLUENZA 4 PCR (RESP) NOT DETECTED NOT DETECTED 09/18/2025 7:39 AM [facility] RSV PCR (RESP) NOT DETECTED NOT DETECTED 09/18/2025 7:39 AM [facility] B PARAPERTUSIS PCR (RESP) NOT DETECTED NOT DETECTED 09/18/2025 7:39 AM [facility] BORDETELLA PERTUSSIS PCR (RESP) NOT DETECTED NOT DETECTED 09/18/2025 7:39 AM [facility] CHLAMYDOPHILA PNEUMONIAE PCR (RESP) NOT DETECTED NOT DETECTED 09/18/2025 7:39 AM [facility] MYCOPLASMA PNEUMONIAE PCR (RESP) NOT DETECTED NOT DETECTED 09/18/2025 7:39 AM [facility] CORONAVIRUS SARS COV 2 PCR (RESP) NOT DETECTED NOT DETECTED 09/18/2025 7:39 AM [facility] SWAB NASOPHARYNGEAL STRUCTURE / Unknown 09/18/2025 5:00 AM MOLYBDENUM STEAMER OPERATOR Daljit Jean DO MICROBIOLOGY - GENERAL ORDER BROOK Final Result [facility] [address] [place] [address], [place] [phone] * (ABNORMAL) URINALYSIS (09/17/2025 11:08 PM MOLYBDENUM STEAMER OPERATOR) SPECIMEN TYPE URINE CLEAN CATCH 09/17/2025 11:08 PM [facility] COLOR (U) LIGHT YELLOW 09/17/2025 11:52 PM [facility] TRANSPARENCY CLEAR 09/17/2025 11:52 PM [facility] SPECIFIC GRAVITY (U) 1.014 1.001 - 1.030 09/17/2025 11:52 PM [facility] U PH 7.5 5.0 - 9.0 09/17/2025 11:52 PM [facility] LEUKOCYTES (U) NEGATIVE NEGATIVE 09/17/2025 11:52 PM [facility] NITRITES NEGATIVE NEGATIVE 09/17/2025 11:52 PM [facility] PROTEIN RANDOM (U) 200(H) <30 MG/DL 09/17/2025 11:52 PM [facility] GLUCOSE (U) NORMAL NORMAL MG/DL 09/17/2025 11:52 PM [facility] KETONES MG/DL (U) NEGATIVE NEGATIVE MG/DL 09/17/2025 11:52 PM MOLYBDENUM STEAMER OPERATOR [facility] UROBILINOGEN NORMAL NORMAL MG/DL 09/17/2025 11:52 PM MOLYBDENUM STEAMER OPERATOR [facility] BILIRUBIN (U) NEGATIVE NEGATIVE MG/DL 09/17/2025 11:52 PM [facility] BLOOD (U) NEGATIVE NEGATIVE 09/17/2025 11:52 PM MOLYBDENUM STEAMER OPERATOR [facility] MUCUS RARE /LPF 09/17/2025 11:52 PM MOLYBDENUM STEAMER OPERATOR [facility] HYALINE CASTS RARE /LPF 09/17/2025 11:52 PM MOLYBDENUM STEAMER OPERATOR [facility] WBC/HPF 7(H) <6 /HPF 09/17/2025 11:52 PM [facility] RBC/HPF 1 <6 /HPF 09/17/2025 11:52 PM [facility] SQUAMOUS EPITHELIALS RARE /HPF 09/17/2025 11:52 PM [facility] URINE URINE SPECIMEN OBTAINED BY CLEAN CATCH PROCEDURE / Unknown 09/17/2025 11:08 PM MOLYBDENUM STEAMER OPERATOR Sirena BURTON URINE ORDERABLES Final Result [facility] [address] [place] [address], [place] [phone] * DRUG SCREEN RAPID (09/17/2025 11:08 PM MOLYBDENUM STEAMER OPERATOR) AMPHETAMINE (U) NEGATIVE NEGATIVE 12:00 AM MOLYBDENUM STEAMER OPERATOR [facility] BARBITURATES SCREEN (U) NEGATIVE NEGATIVE 09/18/2025 12:00 AM MOLYBDENUM STEAMER OPERATOR [facility] BENZODIAZEPINES SCREEN (U) NEGATIVE NEGATIVE 09/18/2025 12:00 AM MOLYBDENUM STEAMER OPERATOR [facility] CANNABINOIDS SCREEN (U) NEGATIVE NEGATIVE 09/18/2025 12:00 AM [facility] COCAINE METABOLITES (U) NEGATIVE NEGATIVE 09/18/2025 12:00 AM [facility] METHADONE (U) NEGATIVE NEGATIVE 09/18/2025 12:00 AM [facility] OPIATE SCREEN (U) NEGATIVE NEGATIVE 025 12:00 AM MOLYBDENUM STEAMER OPERATOR [facility] PHENCYCLIDINE PCP (U) NEGATIVE NEGATIVE 09/18/2025 12:00 AM [facility] Comment: NOTE: RESULTS OF THIS DRUG SCREEN SHOULD BE USED FOR MEDICAL PURPOSES ONLY AND NOT FOR LEGAL OR EMPLOYMENT PURPOSES. POSITIVE RESULTS ARE NOT CONFIRMED. MEDICATIONS CONTAINING EPHEDRINE MAY CAUSE FALSE POSITIVE AMPHETAMINE CALL [phone], LAB, TO REQUEST CONFIRMATION TESTING. IF CREATININE IS <40 mg/dL. RECOLLECTION IS SUGGESTED. AMPHETAMINE- 500 NG/ML BARBITURATE- 200 NG/ML BENZODIAZEPINES- 200 NG/ML THC- 50 NG/ML COCAINE- 150 NG/ML METHADONE- 300 NG/ML OPIATE- 300 MG/ML PCP- 25 NG/ML CREATININE (U) 103.0 28 - 217 MG/DL 09/18/2025 12:00 AM [facility] URINE URINE SPECIMEN OBTAINED BY CLEAN CATCH PROCEDURE / Unknown 09/17/2025 11:08 PM MOLYBDENUM STEAMER OPERATOR Sirena BURTON URINE ORDERABLES Final Result [facility] [address] [place] [address], * CULTURE, BACTERIA, BLOOD (09/17/2025 8:45 PM MOLYBDENUM STEAMER OPERATOR) Only the most recent of2 resultswithin the time period is included. SPEC DESCRIPTION BLOOD-VENOU S 09/17/2025 7:10 PM [facility] SPECIAL REQUESTS NO SPECIAL REQUEST 09/17/2025 7:10 PM MOLYBDENUM STEAMER OPERATOR [facility] CULTURE RESULT NO GROWTH 5 DAYS 09/22/2025 10:29 PM MOLYBDENUM STEAMER OPERATOR [facility] BLOOD VENOUS BLOOD SPECIMEN / Unknown 09/17/2025 8:45 PM MOLYBDENUM STEAMER OPERATOR 09/17/2025 9:09 PM MOLYBDENUM STEAMER OPERATOR us Dong Shannon DO MICROBIOLOGY - GENERAL ORDERAB LES Final Result [facility] [address] [place] [address], [place] [phone] * RESPIRATORY PCR PNL LIMITED (FLU A/FLU B/RSV/COVID) (09/17/2025 8:08 PM MOLYBDENUM STEAMER OPERATOR) SPEC DESCRIPTION NASOPHARYNGEAL SWAB 09/17/2025 8:09 PM MOLYBDENUM STEAMER OPERATOR [facility] CORONAVIRUS SARS COV 2 PCR (RESP) NEGATIVE NEGATIVE 09/17/2025 9:15 PM MOLYBDENUM STEAMER OPERATOR [facility] INFLUENZA A PCR (RESP) NEGATIVE NEGATIVE 09/17/2025 9:15 PM MOLYBDENUM STEAMER OPERATOR [facility] INFLUENZA B PCR (RESP) NEGATIVE NEGATIVE 09/17/2025 9:15 PM MOLYBDENUM STEAMER OPERATOR [facility] RSV PCR (RESP) NEGATIVE NEGATIVE 09/17/2025 9:15 PM MOLYBDENUM STEAMER OPERATOR [facility] SWAB NASOPHARYNGEAL STRUCTURE / Unknown 09/17/2025 8:08 PM MOLYBDENUM STEAMER OPERATOR us Dong Shannon DO MICROBIOLOGY - GENERAL ORDERAB LES Final Result [facility] [address] [place] [address], [place] [phone] * CT HEAD WO CON (09/17/2025 7:25 PM MOLYBDENUM STEAMER OPERATOR) Anatomical Region Laterality Modality Head Computed Tomogra phy 09/17/2025 7:39 PM MOLYBDENUM STEAMER OPERATOR Impressions 09/17/2025 7:42 PM MOLYBDENUM STEAMER OPERATOR IMPRESSION: 1. No acute intracranial findings. If there is persistent clinical concern for acute ischemia, brain MRI is more sensitive. 2. Chronic microvascular change and multifocal chronic infarct/encephalomalacia as above. Referred By: Interpreted By: Micheal Douglas MD, 09/17/2025 7:39 PM Narrative 09/17/2025 7:42 PM MOLYBDENUM STEAMER OPERATOR [place] [address] EXAMINATION: CT of the head EXAM DATE/TIME: [...] Procedure Note Micheal Douglas MD - 09/17/[address] [address] EXAMINATION: CT of the head EXAM DATE/TIME: [...] * ECG 12 lead (09/17/2025 6:40 PM MOLYBDENUM STEAMER OPERATOR) ECG QT 331 [facility] ECG QTC 434 [facility] 09/17/2025 6:40 PM MOLYBDENUM STEAMER OPERATOR Narrative [facility] - 09/18/2025 12:43 PM MOLYBDENUM STEAMER OPERATOR [facility] [address] Test Date: 2025-09-17 Pat Name: GENA PIERRE Department: 41 Room: EXAM06 Gender: Female Infant Childcare Provider: Rp : 1960 Requested By: SIRENA MEI Order Number: [id number] Reading : See [place] Measurements Intervals [place] Rate: 103 P: 61 [place]: 172 QRS: 16 QRSD: 98 T: 78 QT: 331 QTc: 434 Interpretive Statements SINUS TACHYCARDIA POSSIBLE ANTERIOR MYOCARDIAL INFARCTION , OF INDETERMINATE AGE [30 ms Q WAVE IN V3/V4, OR R < 0.2 mV IN V4] No previous ECG available for comparison Other ischemic changes, not STEMI Preliminary EKG Interpretation by Dong Shannon, BDENUM STEAMER OPERATOR Procedure Note See [place] MD - 09/18/[address] Test Date: 2025-09-17 Pat Name: GENA PIERRE Department: 41 Room: EXAM06 Gender: Female Infant Childcare Provider: John : 1960 Requested By: SIRENA MEI Order Number: [id number] Reading JULIANE [place] Measurements Intervals [place] Rate: 103 P: 61 [place]: 172 QRS: 16 QRSD: 98 T: 78 QT: 331 QTc: 434 Interpretive Statements SINUS TACHYCARDIA POSSIBLE ANTERIOR MYOCARDIAL INFARCTION , OF INDETERMINATE AGE [30 ms QWAVE IN V3/V4, OR R < 0.2 mV IN V4] No previous ECG available for comparison Other ischemic changes, not STEMI Preliminary EKG Interpretation by Dong Shannon DO BDENUM STEAMER OPERATOR us Sirena BURTON ECG ORDERABLES Final Result [facility] * TROPONIN, QUANT (09/17/2025 6:27 PM MOLYBDENUM STEAMER OPERATOR) TROPONIN I HIGH SENSITIVITY 14 <54 ng/L 09/17/2025 7:43 PM MOLYBDENUM STEAMER OPERATOR [facility] Comment: HIGH DOSES OF BIOTIN, TROPONIN-SPECIFIC AUTOANTIBODIES, AND ANTIBODY THERAPY CONTAINING HAMA MAY INTERFERE WITH THIS TEST RESULT. CORRELATION TO CLINICAL HISTORY AND PRESENTATION RECOMMENDED. BLOOD VENOUS BLOOD SPECIMEN / Unknown 09/17/2025 6:27 PM MOLYBDENUM STEAMER OPERATOR us Sirena BURTON LABORATORY Final Result [facility] [address] [place] [address], [place] [phone] * MAGNESIUM (09/17/2025 6:27 PM MOLYBDENUM STEAMER OPERATOR) MAGNESIUM 2.4 1.8 - 2.4 MG/DL 09/17/2025 7:43 PM MOLY[employer] STEAMER OPERATOR [facility] BLOOD VENOUS BLOOD SPECIMEN / Unknown 09/17/2025 6:27 PM [employer] STEAMER OPERATOR us [facility] Final Result Performing Organization Address [facility] Co de Phone Number [facility] [address] [place] [id number], [place] [phone] * ETHANOL (09/17/2025 6:27 PM M[employer] STEAMER OPERATOR) ALCOHOL S/P/B <0.003 <0.003 G/DL 09/17/2025 7:43 PM M[employer] STEAMER OPERATOR [facility] BLOOD VENOUS BLOOD SPECIMEN / Unknown 09/17/2025 6:27 PM M[employer] STEAMER OPERATOR us [facility] Final Result Performing Organization Address City/[facility]/ZIP Co de Phone Number [facility] [address] [place] [id number], [place] [phone] * (ABNORMAL) COMPREHENSIVE METABOLIC PANEL (09/17/2025 6:27 PM MOLY[employer] STEAMER OPERATOR) [facility] GLUCOSE 104(H) 70 - 99 MG/DL 09/17/2025 7:43 PM [facility] BUN 48(H) 7 - 18 MG/DL 09/17/2025 7:43 PM [facility] CREATININE S/P/B 9.88(HH) 0.55 - 1.02 MG/DL 09/17/2025 7:43 PM [facility] Comment: Critical Result(s) Called at: 19:42:09 on 09/17/2025 by: GILBERTO SIGALA to and read back by:SYLVAIN STUBBS SODIUM S/P/B 136 136 - 145 MMOL/L 09/17/2025 7:43 PM [facility] POTASSIUM S/P/B 4.7 3.5 - 5.1 MMOL/L 09/17/2025 7:43 PM [facility] CHLORIDE S/P/B 98 97 - 115 MMOL/L 09/17/2025 7:43 PM [facility] CO2 23.6 21 - 32 MMOL/L 09/17/2025 7:43 PM [facility] CALCIUM S/P/B 9.8 8.5 - 10.1 MG/DL 09/17/2025 7:43 PM [facility] BILIRUBIN TOTAL S/P/B 0.5 0.2 - 1.2 MG/DL 09/17/2025 7:43 PM [facility] Comment: THIS ASSAY IS NOT RECOMMENDED FOR PATIENTS UNDERGOING TREATMENT WITH ELTROMBOPAG DUE TO THE POTENTIAL FOR FALSELY ELEVATED RESULTS. TOTAL PROTEIN S/P/B 7.6 6.4 - 8.2 G/DL 09/17/2025 7:43 PM [facility] ALBUMIN S/P/B 3.3(L) 3.4 - 5.0 G/DL 09/17/2025 7:43 PM [employer]EN[employer] STEAMER OPERATOR [facility] AST 22 15 - 37 U/L 09/17/2025 7:43 PM [facility] ALT 22 14 - 55 U/L 09/17/2025 7:43 PM [facility] ALKALINE PHOSPHATASE S/P/B 149(H) 50 - 136 U/L 09/17/2025 7:43 PM [facility] ANION GAP 14.4(H) 2 - 10 MMOL/L 09/17/2025 7:43 PM [facility] BUN CREATININE RATIO 4.9(L) 6 - 26 09/17/2025 7:43 PM [facility] A/G RATIO 0.8(L) 1.0 - 2.0 RATIO 09/17/2025 7:43 PM [facility] GFR ESTIMATE 4(L) >90 ML/MIN/1.7 3 M2 09/17/2025 7:43 PM [facility] Comment: NOTE: eGFR is not calculated for patients <18 years of age or gender unknown. This is an estimated GFR calculation using the new CKD EPI creatinine equation without race and so does not require a correction factor for race. This estimated GFR should not be used for calculating drug doses. BLOOD VENOUS BLOOD SPECIMEN / Unknown 09/17/2025 6:27 PM [employer] STEAMER OPERATOR [facility] Final Result [facility] [address] [place] [address], * (ABNORMAL) CBC W/DIFF AUTOMATED (09/17/2025 6:27 PM M[employer] STEAMER OPERATOR) WBC 13.70(H) 4.5 - 11.0 x10'3/uL 09/17/2025 6:47 PM [facility] RBC 4.19(L) 4.20 - 5.40 x10'6/uL 09/17/2025 6:47 PM [facility] HGB 12.3 12.0 - 16.0 G/DL 09/17/2025 6:47 PM [facility] HCT 37.9(L) 38.0 - 48.0 % 09/17/2025 6:47 PM [facility] MCV 90.5 81.0 - 99.0 FL 09/17/2025 6:47 PM [facility] MCH 29.4 27.0 - 31.0 PG 09/17/2025 6:47 PM [facility] MCHC 32.5 32.0 - 36.0 G/DL 09/17/2025 6:47 PM [facility] RDW 14.9(H) 11.5 - 14.5 % 09/17/2025 6:47 PM [facility] PLT 284 130 - 400 x10'3/uL 09/17/2025 6:47 PM [facility] MPV 10.5 9.3 - 12.2 FL 09/17/2025 6:47 PM [facility] DIFFERENTIAL TYPE AUTOMATED DIFFERENTIAL 09/17/2025 6:47 PM [facility] NEUTROPHILS % 73.3 % 09/17/2025 6:47 PM [facility] LYMPHOCYTES % 14.8 % 09/17/2025 6:47 PM [facility] MONOCYTES % 8.8 % 09/17/2025 6:47 PM [facility] EOSINOPHILS 2.2 % 09/17/2025 6:47 PM [facility] BASOPHILS 0.5 % 09/17/2025 6:47 PM [employer] STEAMER OPERATOR [facility] IMMATURE GRANS % 0.4 % 09/17/20 25 6:47 PM [employer] STEAMER OPERATOR [facility] ABS. NEUTROPHILS 10.04(H) 1.80 - 7.70 x10'3/uL 09/17/2025 6:47 PM [employer] STEAMER OPERATOR [facility] ABS. LYMPHOCYTES 2.03 1.00 - 4.80 x10'3/uL 09/17/2025 6:47 PM [employer] STEAMER OPERATOR [facility] ABS. MONOCYTES 1.21(H) 0.24 - 0.86 x10'3/uL 09/17/2025 6:47 PM [employer] STEAMER OPERATOR [facility] ABS. EOSINOPHILS 0.30 0.04 - 0.36 x10'3/uL 09/17/2025 6:47 PM [employer] STEAMER OPERATOR [facility] ABS. BASOPHILS 0.07 0.01 - 0.08 x10'3/uL 09/17/2025 6:47 PM [employer] STEAMER OPERATOR [facility] ABS. IMMATURE GRANULOCYTES 0.05 0.00 - 0.49 x10'3/uL 09/17/2025 6:47 PM M[employer] STEAMER OPERATOR [facility] BLOOD VENOUS BLOOD SPECIMEN / Unknown 09/17/2025 6:27 PM [employer] STEAMER OPERATOR [facility] Final Result [facility] [address] [place] [address], * AMMONIA (09/17/2025 6:27 PM M[employer]YBDEN[employer] STEAMER OPERATOR) AMMONIA 17 11 - 32 UMOL/L 09/17/2025 7:04 PM [employer] STEAMER OPERATOR [facility] BLOOD VENOUS BLOOD SPECIMEN / Unknown 09/17/2025 6:27 PM [employer] STEAMER OPERATOR [facility] Final Result [facility] [address] [place] [address], [place] [phone] * LACTIC ACID W REFLEX (SEPSIS) (09/17/2025 6:27 PM MOLYBDENUM STEAMER OPERATOR) LACTIC ACID VENOUS 1.1 0.4 - 2.0 MMOL/L 09/17/2025 7:10 PM M[employer] STEAMER OPERATOR [facility] BLOOD VENOUS BLOOD SPECIMEN / Unknown 09/17/2025 6:27 PM [employer] STEAMER OPERATOR [facility] Final Result Performing Organization Address [facility]/ZIP Co de Phone Number [facility] [address] [place] [id number], [place] [phone] * XR CHEST PORTABLE (09/17/2025 6:22 PM MOLYBDENUM STEAMER OPERATOR) Anatomical Region Laterality Modality Chest Radiographic Meg ging 09/17/2025 6:45 PM [employer] STEAMER OPERATOR Impressions 09/17/2025 6:46 PM [employer] STEAMER OPERATOR IMPRESSION: No acute findings. 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 Pt reportedly has been [...] Procedure Note Charbel Izquierdo MD - 09/17/[address] [address] Examination: X-ray chest, 1 view Exam time: 09/17/2025 at 1811 hours Clinical history: Confusion.ED via POV from [facility] for rehab services, ccoaltered mental status. [...] 3:46 AM 09/19/2025 11:52 PM Care Teams Glue Drier Operator Relationship Specialty Start Date End Date Monster Garza MD [phone] [address] PCP - General FAMILY PRACTICE 11/01/23
--- OUTSIDE RECORDS SUMMARY | 2025-10-02 08:37 | XMS_ITS | Clinical Summary ---
Author Organization [facility] Address [address] [place] [address] Care Team Providers Care Life Enrichment Specialist Name Role Phone Monster Garza MD Primary Care Provider + Source Comments [facility],non-[facility] Affiliates and Associated Physician Practices is amultiple site organization consisting of ambulatory clinics and hospital sitesin [place], [place], [place] and [place]. This disclosure is being madepursuant to the Care Everywhere program and may not contain all information available regarding this patient. Last updated 18.[facility] Allergies Active Allergy Reactions Criticality Noted Date [...] times daily 90 tablet 3 3:37 PM SLITTER OPERATOR 09/23/20 25 2024 Discontinued amLODIPine (Norvasc) 2.5 MG tablet Take 1 (one) tablet by mouth once daily 2024 Discontinued(C linical Decision) Active Problems Problem Noted Date Diagnosed Date Severe protein-calorie malnutrition 09/30/2025 Assessment & Plan (09/30/2025 5:55 PM SLITTER OPERATOR): - Nutrition consulted and followed throughout admission Hx of major depression 09/20/2025 Assessment & Plan (09/30/2025 1:23 PM SLITTER OPERATOR): -Continue home Effexor Assessment & Plan (09/29/2025 7:58 AM SLITTER OPERATOR): -Continue home Effexor Assessment & Plan (09/28/2025 8:21 AM SLITTER OPERATOR): -Continue home Effexor Assessment & Plan (09/27/2025 2:10 PM SLITTER OPERATOR): -Continue home Effexor Assessment & Plan (09/26/2025 8:35 AM SLITTER OPERATOR): -Continue home Effexor Assessment & Plan (09/25/2025 3:03 PM SLITTER OPERATOR): -Continue home Effexor Assessment & Plan (09/24/2025 5:48 PM SLITTER OPERATOR): -Continue home venlafaxine Assessment & Plan (09/23/2025 5:13 PM SLITTER OPERATOR): -Continue home venlafaxine Assessment & Plan (09/22/2025 7:39 AM SLITTER OPERATOR): -Continue home venlafaxine Assessment & Plan (09/21/2025 11:16 AM SLITTER OPERATOR): -Continue home venlafaxine Assessment & Plan (09/20/2025 8:16 AM SLITTER OPERATOR): -Continue home venlafaxine Ischemic stroke 09/19/2025 Assessment & Plan (09/30/2025 1:23 PM SLITTER OPERATOR): -Initially admitted to stroke team found to have ischemic stroke, continue aspirin 81mg, Brilinta 90 mg started this admission, Lipitor increased from 40 to 80 mg -PT OT recommending SNF Assessment & Plan (09/29/2025 7:58 AM SLITTER OPERATOR): -Initially admitted to stroke team found to have ischemic stroke, continue aspirin 81mg, Brilinta 90 mg started this admission, Lipitor increased from 40 to 80 mg -PT OT recommending SNF Assessment & Plan (09/28/2025 10:59 AM SLITTER OPERATOR): -Initially admitted to stroke team found to have ischemic stroke, continue aspirin 81mg, Brilinta 90 mg started this admission, Lipitor increased from 40 to 80 mg -PT OT recommending SNF Assessment & Plan (09/27/2025 2:10 PM SLITTER OPERATOR): - Initially admitted to stroke team found to have ischemic stroke, continue aspirin 81mg, Brilinta 90 mg started this admission, Lipitor increased from 40 to 80 mg -PT OT recommending SNF Assessment & Plan (09/26/2025 8:35 AM SLITTER OPERATOR): - Initially admitted to stroke team found to have ischemic stroke, continue aspirin 81mg, Brilinta 90 mg started this admission, Lipitor increased from 40 to 80 mg -PT OT recommending SNF Assessment & Plan (09/25/2025 3:03 PM SLITTER OPERATOR): - Initially admitted to stroke team found to have ischemic stroke, continue aspirin 81mg, Brilinta 90 mg started this admission, Lipitor increased from 40 to 80 mg -PT OT recommending SNF Assessment & Plan (09/24/2025 5:48 PM SLITTER OPERATOR): -see above Assessment & Plan (09/23/2025 5:13 PM SLITTER OPERATOR): -see above Assessment & Plan (09/22/2025 7:39 AM SLITTER OPERATOR): -see above Assessment & Plan (09/21/2025 9:54 AM SLITTER OPERATOR): -see above Assessment & Plan (09/20/2025 9:27 AM SLITTER OPERATOR): Assessment & Plan (09/20/2025 8:16 AM SLITTER OPERATOR): -see above Secondary hyperparathyroidism 08/07/2025 Assessment & Plan (09/30/2025 1:23 PM SLITTER OPERATOR): -Nephrology following for maintenance dialysis Assessment & Plan (09/29/2025 7:58 AM SLITTER OPERATOR): -Nephrology following for maintenance dialysis Assessment & Plan (09/28/2025 10:59 AM SLITTER OPERATOR): -Nephrology following for maintenance dialysis Assessment & Plan (09/27/2025 2:10 PM SLITTER OPERATOR): -Nephrology following for maintenance dialysis Assessment & Plan (09/26/2025 8:35 AM SLITTER OPERATOR): -Nephrology following for maintenance dialysis Assessment & Plan (09/25/2025 3:03 PM SLITTER OPERATOR): -Nephrology following for maintenance dialysis Assessment & Plan (09/24/2025 5:48 PM SLITTER OPERATOR): ESRD on HD - hemodialysis catheter placement confirmed with CXR 09/20 - dialysis schedule MWF - last dialysis 09/21 Hyperparathyroidism - Vitamin D low (19.9) -DC'd vitamin D supplementation per nephrology due to hypercalcemia, nephrology recommending SestaMIBI scan -Started on send Salit 60 mg daily -Recommending ENT consult for possible 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 Assessment & Plan (09/23/2025 5:13 PM SLITTER OPERATOR): ESRD on HD - hemodialysis catheter placement confirmed with CXR 09/20 - dialysis schedule MWF - last dialysis 09/21 Hyperparathyroidism - Vitamin D low (19.9) -DC'd vitamin D supplementation per nephrology due to hypercalcemia, nephrology recommending SestaMIBI scan -Started on send Salit 60 mg daily -Recommending ENT consult for possible 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 Assessment & Plan (09/22/2025 8:55 PM SLITTER OPERATOR): ESRD on HD - hemodialysis catheter placement confirmed with CXR 09/20 - dialysis schedule MWF - last dialysis 09/21 Hyperparathyroidism - Vitamin D low (19.9) -DC'd vitamin D supplementation per nephrology due to hypercalcemia, nephrology recommending SestaMIBI scan -Started on send Salit 60 mg daily -Recommending ENT consult for possible 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 Assessment & Plan (09/21/2025 9:54 AM SLITTER OPERATOR): ESRD on HD - hemodialysis catheter placement confirmed with CXR 09/20 - dialysis schedule MWF - per nephrology no dialysis F 09/20 Hyperparathyroidism - Nephrology recommending PTHrp, Vitamin D, Ionized Calcium (ordered) - Vitamin D low (19.9) - supplement D3 5000 units Assessment & Plan (09/20/2025 10:00 AM SLITTER OPERATOR): -HD per nephrology Cerebrovascular accident (CV A) [...] in right frontoparietal lobes (R MCA). Multiple vsstp-xi-agczbxjs small infarcts in left centrum semiovale and shin radiata (embolic pattern). CTA Head/Neck: Multifocal, severe intracranial arterial stenoses involving bilateral anterior, middle, posterior cerebral arteries and vertebrobasilar system. Concern for REFRIGERATION SYSTEMS INSTALLER vasculitis--LP and CSF studies not consistent; Rheumatology [...] in right frontoparietal lobes (R MCA). Multiple nesob-qk-oecnpkgc small infarcts in left centrum semiovale and shin radiata (embolic pattern). CTA Head/Neck: Multifocal, severe intracranial arterial stenoses involving bilateral anterior, middle, posterior cerebral arteries and vertebrobasilar system. Concern for REFRIGERATION SYSTEMS INSTALLER vasculitis--LP and CSF studies not consistent; Rheumatology [...] in right frontoparietal lobes (R MCA). Multiple mvqac-pv-gulpshto small infarcts in left centrum semiovale and shin radiata (embolic pattern). CTA Head/Neck: Multifocal, severe intracranial arterial stenoses involving bilateral anterior, middle, posterior cerebral arteries and vertebrobasilar system. Concern for REFRIGERATION SYSTEMS INSTALLER vasculitis--LP and CSF studies not consistent; Rheumatology [...] in right frontoparietal lobes (R MCA). Multiple wsnyo-dj-sygyqsbu small infarcts in left centrum semiovale and shin radiata (embolic pattern). CTA Head/Neck: Multifocal, severe intracranial arterial stenoses involving bilateral anterior, middle, posterior cerebral arteries and vertebrobasilar system. Concern for REFRIGERATION SYSTEMS INSTALLER vasculitis--LP and CSF studies not consistent; Rheumatology [...] restricted diffusion concerning for acute infarction. -Multiple xcyik-pp-scvpxcpf small infarcts scattered in the left centrum [...] entire basilar artery. There was concern for REFRIGERATION SYSTEMS INSTALLER vasculitis, however LP CSF studies are not [...] restricted diffusion concerning for acute infarction. -Multiple cjvop-cr-qidjgcvx small infarcts scattered in the left centrum [...] entire basilar artery. There was concern for REFRIGERATION SYSTEMS INSTALLER vasculitis, however LP CSF studies. Rheumatology evaluated [...] in right frontoparietal lobes (R MCA). Multiple ckxsr-nv-okzviqel small infarcts in left centrum semiovale and shin radiata (embolic pattern). CTA Head/Neck: Multifocal, severe intracranial arterial stenoses involving bilateral anterior, middle, posterior cerebral arteries and vertebrobasilar system. Concern for REFRIGERATION SYSTEMS INSTALLER vasculitis--LP and CSF studies not consistent; Rheumatology [...] in right frontoparietal lobes (R MCA). Multiple yliff-dm-lcjwqsmp small infarcts in left centrum semiovale and shin radiata (embolic pattern). CTA Head/Neck: Multifocal, severe intracranial arterial stenoses involving bilateral anterior, middle, posterior cerebral arteries and vertebrobasilar system. Concern for REFRIGERATION SYSTEMS INSTALLER vasculitis--LP and CSF studies not consistent; Rheumatology [...] in right frontoparietal lobes (R MCA). Multiple vvhgq-pc-rxvgmqix small infarcts in left centrum semiovale and shin radiata (embolic pattern). CTA Head/Neck: Multifocal, severe intracranial arterial stenoses involving bilateral anterior, middle, posterior cerebral arteries and vertebrobasilar system. Concern for REFRIGERATION SYSTEMS INSTALLER vasculitis--LP and CSF studies not consistent; Rheumatology [...] in right frontoparietal lobes (R MCA). Multiple ckikv-wz-mvqtlxkc small infarcts in left centrum semiovale and shin radiata (embolic pattern). CTA Head/Neck: Multifocal, severe intracranial arterial stenoses involving bilateral anterior, middle, posterior cerebral arteries and vertebrobasilar system. Concern for REFRIGERATION SYSTEMS INSTALLER vasculitis--LP and CSF studies not consistent; Rheumatology [...] restricted diffusion concerning for acute infarction. -Multiple hyvvp-ba-brgbywvd small infarcts scattered in the left centrum [...] entire basilar artery. There was concern for REFRIGERATION SYSTEMS INSTALLER vasculitis, however LP CSF studies are not [...] restricted diffusion concerning for acute infarction. -Multiple bukfp-la-nhqvphya small infarcts scattered in the left centrum [...] entire basilar artery. There was concern for REFRIGERATION SYSTEMS INSTALLER vasculitis, however LP CSF studies. Rheumatology evaluated [...] in right frontoparietal lobes (R MCA). Multiple apruk-ug-udmfiols small infarcts in left centrum semiovale and shin radiata (embolic pattern). CTA Head/Neck: Multifocal, severe intracranial arterial stenoses involving bilateral anterior, middle, posterior cerebral arteries and vertebrobasilar system. Concern for REFRIGERATION SYSTEMS INSTALLER vasculitis--LP and CSF studies not consistent; Rheumatology [...] in right frontoparietal lobes (R MCA). Multiple zyotp-mi-tlzjpbzf small infarcts in left centrum semiovale and shin radiata (embolic pattern). CTA Head/Neck: Multifocal, severe intracranial arterial stenoses involving bilateral anterior, middle, posterior cerebral arteries and vertebrobasilar system. Concern for REFRIGERATION SYSTEMS INSTALLER vasculitis--LP and CSF studies not consistent; Rheumatology [...] in right frontoparietal lobes (R MCA). Multiple jspgn-kb-mwgqswgp small infarcts in left centrum semiovale and shin radiata (embolic pattern). CTA Head/Neck: Multifocal, severe intracranial arterial stenoses involving bilateral anterior, middle, posterior cerebral arteries and vertebrobasilar system. Concern for REFRIGERATION SYSTEMS INSTALLER vasculitis--LP and CSF studies not consistent; Rheumatology [...] in right frontoparietal lobes (R MCA). Multiple jzaxz-zi-ytosixrn small infarcts in left centrum semiovale and shin radiata (embolic pattern). CTA Head/Neck: Multifocal, severe intracranial arterial stenoses involving bilateral anterior, middle, posterior cerebral arteries and vertebrobasilar system. Concern for REFRIGERATION SYSTEMS INSTALLER vasculitis--LP and CSF studies not consistent; Rheumatology [...] restricted diffusion concerning for acute infarction. -Multiple lvywb-cu-xykikedh small infarcts scattered in the left centrum [...] entire basilar artery. There was concern for REFRIGERATION SYSTEMS INSTALLER vasculitis, however LP CSF studies are not [...] restricted diffusion concerning for acute infarction. -Multiple bhxiv-qh-mhjqbrpw small infarcts scattered in the left centrum [...] entire basilar artery. There was concern for REFRIGERATION SYSTEMS INSTALLER vasculitis, however LP CSF studies. Rheumatology evaluated [...] -Continue home cinacalcet -Start on vitamin D 31479 units q7 days for 6 weeks. -Sestamibi [...] -Continue home cinacalcet -Start on vitamin D 66301 units q7 days for 6 weeks. -Sestamibi [...] -Continue home cinacalcet -Start on vitamin D 60312 units q7 days for 6 weeks. -Sestamibi [...] -Continue home cinacalcet -Start on vitamin D 38796 units q7 days for 6 weeks. -Sestamibi [...] -Continue home cinacalcet -Start on vitamin D 17277 units q7 days for 6 weeks. -Sestamibi [...] -Continue home cinacalcet -Start on vitamin D 20930 units q7 days for 6 weeks. -Sestamibi [...] in right frontoparietal lobes (R MCA). Multiple cddoy-nk-opdtpdxh small infarcts in left centrum semiovale and shin radiata (embolic pattern). CTA Head/Neck: Multifocal, severe intracranial arterial stenoses involving bilateral anterior, middle, posterior cerebral arteries and vertebrobasilar system. Concern for REFRIGERATION SYSTEMS INSTALLER vasculitis--LP and CSF studies not consistent; Rheumatology [...] in right frontoparietal lobes (R MCA). Multiple gpoxv-ce-zvomrwjh small infarcts in left centrum semiovale and shin radiata (embolic pattern). CTA Head/Neck: Multifocal, severe intracranial arterial stenoses involving bilateral anterior, middle, posterior cerebral arteries and vertebrobasilar system. Concern for REFRIGERATION SYSTEMS INSTALLER vasculitis--LP and CSF studies not consistent; Rheumatology [...] in right frontoparietal lobes (R MCA). Multiple ouhzv-fs-lzbijytz small infarcts in left centrum semiovale and shin radiata (embolic pattern). CTA Head/Neck: Multifocal, severe intracranial arterial stenoses involving bilateral anterior, middle, posterior cerebral arteries and vertebrobasilar system. Concern for REFRIGERATION SYSTEMS INSTALLER vasculitis--LP and CSF studies not consistent; Rheumatology [...] in right frontoparietal lobes (R MCA). Multiple yrmws-sg-fvbeqldw small infarcts in left centrum semiovale and shin radiata (embolic pattern). CTA Head/Neck: Multifocal, severe intracranial arterial stenoses involving bilateral anterior, middle, posterior cerebral arteries and vertebrobasilar system. Concern for REFRIGERATION SYSTEMS INSTALLER vasculitis--LP and CSF studies not consistent; Rheumatology [...] restricted diffusion concerning for acute infarction. -Multiple ktvyt-na-qpdpthcg small infarcts scattered in the left centrum [...] entire basilar artery. There was concern for REFRIGERATION SYSTEMS INSTALLER vasculitis, however LP CSF studies are not [...] restricted diffusion concerning for acute infarction. -Multiple cescj-yx-pmkgpgcv small infarcts scattered in the left centrum [...] entire basilar artery. There was concern for REFRIGERATION SYSTEMS INSTALLER vasculitis, however LP CSF studies. Rheumatology evaluated [...] restricted diffusion concerning for acute infarction. -Multiple hdgpi-lw-lfslrldi small infarcts scattered in the left centrum [...] and entire basilar artery. 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 Additional Studies / Interventions: TTE: EF 55%, no intracardiac shunt. LEX negative; ANCA <1:20, PR3 = 0, MPO = 0. LP performed by Neuroradiology on 05/07; CSF studies pending. NSGY consulted for possible brain mass--no discrete lesion on MRI; no indication for biopsy. Records requested from [facility]; no relevant data received. 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 Plan: -Obtained records from [facility], no relevant materials were provided unfortunately. 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 Plan: -Obtained records from [facility], no relevant materials were provided unfortunately. 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 Plan: -Obtained records from [facility], no relevant materials were provided unfortunately. 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 Plan: -Obtained records from [facility], no relevant materials were provided unfortunately. 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 Plan: -Obtained records from [facility], no relevant materials were provided unfortunately. -Will have [facility] discussion with patient and POA this [...] in right frontoparietal lobes (R MCA). Multiple nvdzn-gq-yxfpprer small infarcts in left centrum semiovale and shin radiata (embolic pattern). CTA Head/Neck: Multifocal, severe intracranial arterial stenoses involving bilateral anterior, middle, posterior cerebral arteries and vertebrobasilar system. Concern for REFRIGERATION SYSTEMS INSTALLER vasculitis--LP and CSF studies not consistent; Rheumatology [...] in right frontoparietal lobes (R MCA). Multiple lmjbm-de-tedspnuu small infarcts in left centrum semiovale and shin radiata (embolic pattern). CTA Head/Neck: Multifocal, severe intracranial arterial stenoses involving bilateral anterior, middle, posterior cerebral arteries and vertebrobasilar system. Concern for REFRIGERATION SYSTEMS INSTALLER vasculitis--LP and CSF studies not consistent; Rheumatology [...] in right frontoparietal lobes (R MCA). Multiple ctwrd-xo-ogzpzair small infarcts in left centrum semiovale and shin radiata (embolic pattern). CTA Head/Neck: Multifocal, severe intracranial arterial stenoses involving bilateral anterior, middle, posterior cerebral arteries and vertebrobasilar system. Concern for REFRIGERATION SYSTEMS INSTALLER vasculitis--LP and CSF studies not consistent; Rheumatology [...] in right frontoparietal lobes (R MCA). Multiple ufioj-yw-lskdvgds small infarcts in left centrum semiovale and shin radiata (embolic pattern). CTA Head/Neck: Multifocal, severe intracranial arterial stenoses involving bilateral anterior, middle, posterior cerebral arteries and vertebrobasilar system. Concern for REFRIGERATION SYSTEMS INSTALLER vasculitis--LP and CSF studies not consistent; Rheumatology [...] restricted diffusion concerning for acute infarction. -Multiple hnnyh-zq-qfpnfnmv small infarcts scattered in the left centrum [...] entire basilar artery. There was concern for REFRIGERATION SYSTEMS INSTALLER vasculitis, however LP CSF studies are not [...] restricted diffusion concerning for acute infarction. -Multiple ksqof-ab-lfveorkj small infarcts scattered in the left centrum [...] entire basilar artery. There was concern for REFRIGERATION SYSTEMS INSTALLER vasculitis, however LP CSF studies. Rheumatology evaluated [...] restricted diffusion concerning for acute infarction. -Multiple nrfvy-mg-mktszjxg small infarcts scattered in the left centrum [...] and entire basilar artery. 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 Additional Studies / Interventions: TTE: EF 55%, no intracardiac shunt. LEX negative; ANCA <1:20, PR3 = 0, MPO = 0. LP performed by Neuroradiology on 05/07; CSF studies pending. NSGY consulted for possible brain mass--no discrete lesion on MRI; no indication for biopsy. Records requested from [facility]; no relevant data received. 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 Plan: -Obtained records from [facility], no relevant materials were provided unfortunately. 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 Plan: -Obtained records from [facility], no relevant materials were provided unfortunately. 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 Plan: -Obtained records from [facility], no relevant materials were provided unfortunately. 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 Plan: -Obtained records from [facility], no relevant materials were provided unfortunately. 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 Plan: -Obtained records from [facility], no relevant materials were provided unfortunately. [...] -Continue home cinacalcet -Start on vitamin D 83404 units q7 days for 6 weeks. Assessment [...] 04/29/2025 Assessment & Plan (09/30/2025 1:23 PM SLITTER OPERATOR): -Initially admitted to stroke team found to have ischemic stroke, continue aspirin 81mg, Brilinta 90 mg started this admission, Lipitor increased from 40 to 80 mg -PT OT recommending SNF Assessment & Plan (09/29/2025 7:58 AM SLITTER OPERATOR): -Initially admitted to stroke team found to have ischemic stroke, continue aspirin 81mg, Brilinta 90 mg started this admission, Lipitor increased from 40 to 80 mg -PT OT recommending SNF Assessment & Plan (09/28/2025 10:59 AM SLITTER OPERATOR): -Initially admitted to stroke team found to have ischemic stroke, continue aspirin 81mg, Brilinta 90 mg started this admission, Lipitor increased from 40 to 80 mg -PT OT recommending SNF Assessment & Plan (09/27/2025 2:10 PM SLITTER OPERATOR): - Initially admitted to stroke team found to have ischemic stroke, continue aspirin 81mg, Brilinta 90 mg started this admission, Lipitor increased from 40 to 80 mg -PT OT recommending SNF Assessment & Plan (09/26/2025 8:35 AM SLITTER OPERATOR): - Initially admitted to stroke team found to have ischemic stroke, continue aspirin 81mg, Brilinta 90 mg started this admission, Lipitor increased from 40 to 80 mg -PT OT recommending SNF Assessment & Plan (09/25/2025 3:03 PM SLITTER OPERATOR): - Initially admitted to stroke team found to have ischemic stroke, continue aspirin 81mg, Brilinta 90 mg started this admission, Lipitor increased from 40 to 80 mg -PT OT recommending SNF Assessment & Plan (09/24/2025 5:48 PM SLITTER OPERATOR): -see above Assessment & Plan (09/23/2025 5:13 PM SLITTER OPERATOR): -see above Assessment & Plan (09/22/2025 7:39 AM SLITTER OPERATOR): -see above Assessment & Plan (09/21/2025 9:54 AM SLITTER OPERATOR): -see above Assessment & Plan (09/20/2025 9:27 AM SLITTER OPERATOR): Assessment & Plan (09/20/2025 8:16 AM SLITTER OPERATOR): -see above Assessment & Plan (05/07/2025 9:11 PM CDT): Encephalopathy / Stroke Workup to Date: Infectious/Metabolic: HIV negative, RPR negative, B12 and TSH within normal limits. MRI Brain (04/28/25): -Subacute infarction in the right frontoparietal lobes (R MCA territory) with some restricted diffusion concerning for acute infarction. -Multiple tgzmw-rn-czveeyuo small infarcts scattered in the left centrum [...] and entire basilar artery. 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 Additional Studies / Interventions: TTE: EF 55%, no intracardiac shunt. LEX negative; ANCA <1:20, PR3 = 0, MPO = 0. LP performed by Neuroradiology on 05/07; CSF studies pending. NSGY consulted for possible brain mass--no discrete lesion on MRI; no indication for biopsy. Records requested from [facility]; no relevant data received. 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 Plan: -Obtained records from [facility], no relevant materials were provided unfortunately. 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 Plan: -Obtained records from [facility], no relevant materials were provided unfortunately. 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 Plan: -Obtained records from [facility], no relevant materials were provided unfortunately. 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 Plan: -Obtained records from [facility], no relevant materials were provided unfortunately. -Will have [facility] discussion with patient and POA this 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 Plan: -Obtained records from [facility], no relevant materials were provided unfortunately. -Will have [facility] discussion with patient and POA this [...] Plan: -Will attempt to obtain records from [facility] to further clarify patient's breast cancer [...] -Continue home cinacalcet -Start on vitamin D 21155 units q7 days for 6 weeks. Assessment [...] restricted diffusion concerning for acute infarction. -Multiple [id number] small infarcts scattered in the left centrum [...] and entire basilar artery. 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 Additional Studies / Interventions: TTE: EF 55%, no intracardiac shunt. LEX negative; ANCA <1:20, PR3 = 0, MPO = 0. LP performed by Neuroradiology on 05/07; CSF studies pending. NSGY consulted for possible brain mass--no discrete lesion on MRI; no indication for biopsy. Records requested from [facility]; no relevant data received. 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 Plan: -Obtained records from [facility], no relevant materials were provided unfortunately. 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 Plan: -Obtained records from [facility], no relevant materials were provided unfortunately. 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 Plan: -Obtained records from [facility], no relevant materials were provided unfortunately. 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 Plan: -Obtained records from [facility], no relevant materials were provided unfortunately. 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 Plan: -Obtained records from [facility], no relevant materials were provided unfortunately. -Will have [facility] discussion with patient and POA this [...] -Continue home cinacalcet -Start on vitamin D 16591 units q7 days for 6 weeks. Assessment [...] -Continue home cinacalcet -Start on vitamin D 20429 units q7 days for 6 weeks. -Sestamibi [...] -Continue home cinacalcet -Start on vitamin D 92962 units q7 days for 6 weeks. -Sestamibi [...] -Continue home cinacalcet -Start on vitamin D 47852 units q7 days for 6 weeks. -Sestamibi [...] -Continue home cinacalcet -Start on vitamin D 26876 units q7 days for 6 weeks. -Sestamibi [...] -Continue home cinacalcet -Start on vitamin D 49852 units q7 days for 6 weeks. -Sestamibi [...] -Continue home cinacalcet -Start on vitamin D 63914 units q7 days for 6 weeks. -Sestamibi [...] -Continue home cinacalcet -Start on vitamin D 45683 units q7 days for 6 weeks. Assessment [...] -Continue home cinacalcet -Start on vitamin D 48990 units q7 days for 6 weeks. -Sestamibi [...] -Continue home cinacalcet -Start on vitamin D 61900 units q7 days for 6 weeks. -Sestamibi [...] -Continue home cinacalcet -Start on vitamin D 22956 units q7 days for 6 weeks. -Sestamibi [...] -Continue home cinacalcet -Start on vitamin D 10431 units q7 days for 6 weeks. -Sestamibi [...] -Continue home cinacalcet -Start on vitamin D 70079 units q7 days for 6 weeks. -Sestamibi [...] -Continue home cinacalcet -Start on vitamin D 49596 units q7 days for 6 weeks. -Sestamibi [...] -Continue home cinacalcet -Start on vitamin D 46290 units q7 days for 6 weeks. Assessment [...] 04/29/2025 Assessment & Plan (09/30/2025 1:23 PM SLITTER OPERATOR): -Nephrology following for maintenance dialysis Assessment & Plan (09/29/2025 7:58 AM SLITTER OPERATOR): -Nephrology following for maintenance dialysis Assessment & Plan (09/28/2025 10:59 AM SLITTER OPERATOR): -Nephrology following for maintenance dialysis Assessment & Plan (09/27/2025 2:10 PM SLITTER OPERATOR): -Nephrology following for maintenance dialysis Assessment & Plan (09/26/2025 8:35 AM SLITTER OPERATOR): -Nephrology following for maintenance dialysis Assessment & Plan (09/25/2025 3:03 PM SLITTER OPERATOR): -Nephrology following for maintenance dialysis Assessment & Plan (09/24/2025 5:48 PM SLITTER OPERATOR): ESRD on HD - hemodialysis catheter placement confirmed with CXR 09/20 - dialysis schedule MWF - last dialysis 09/21 Hyperparathyroidism - Vitamin D low (19.9) -DC'd vitamin D supplementation per nephrology due to hypercalcemia, nephrology recommending SestaMIBI scan -Started on send Salit 60 mg daily -Recommending ENT consult for possible 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 Assessment & Plan (09/23/2025 5:13 PM SLITTER OPERATOR): ESRD on HD - hemodialysis catheter placement confirmed with CXR 09/20 - dialysis schedule MWF - last dialysis 09/21 Hyperparathyroidism - Vitamin D low (19.9) -DC'd vitamin D supplementation per nephrology due to hypercalcemia, nephrology recommending SestaMIBI scan -Started on send Salit 60 mg daily -Recommending ENT consult for possible 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 Assessment & Plan (09/22/2025 8:55 PM SLITTER OPERATOR): ESRD on HD - hemodialysis catheter placement confirmed with CXR 09/20 - dialysis schedule MWF - last dialysis 09/21 Hyperparathyroidism - Vitamin D low (19.9) -DC'd vitamin D supplementation per nephrology due to hypercalcemia, nephrology recommending SestaMIBI scan -Started on send Salit 60 mg daily -Recommending ENT consult for possible 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 Assessment & Plan (09/21/2025 9:54 AM SLITTER OPERATOR): ESRD on HD - hemodialysis catheter placement confirmed with CXR 09/20 - dialysis schedule MWF - per nephrology no dialysis F 09/20 Hyperparathyroidism - Nephrology recommending PTHrp, Vitamin D, Ionized Calcium (ordered) - Vitamin D low (19.9) - supplement D3 5000 units Assessment & Plan (09/20/2025 9:27 AM SLITTER OPERATOR): Assessment & Plan (09/20/2025 10:00 AM SLITTER OPERATOR): -HD per nephrology Assessment & Plan (05/13/2025 [...] Assessment & Plan (05/04/2025 1:17 PM CDT): [facility] Quick Recap - Optional: Managed [...] Assessment & Plan (05/03/2025 11:14 AM CDT): [facility] Quick Recap - Optional: Managed [...] Assessment & Plan (05/02/2025 1:40 PM CDT): [facility] Quick Recap - Optional: Managed [...] Assessment & Plan (05/01/2025 2:51 PM CDT): [facility] Quick Recap - Optional: Managed [...] Assessment & Plan (04/30/2025 11:34 AM CDT): [facility] Quick Recap - Optional: Managed [...] Assessment & Plan (04/29/2025 3:05 PM CDT): [facility] Quick Recap - Optional: Managed [...] Assessment & Plan (04/29/2025 2:52 PM CDT): [facility] Quick Recap - Optional: Managed by nephrology -Consulted nephro to resume HD MWF (last HD session Thursday 04/26 per rehab facility) >No urgent HD needs at this time -Hold home sodium bicarb 1300 mg BID given mild alkalosis that has developed -Continue home cinacalcet 30 mg daily -CTM daily RFP Primary hypertension 04/29/2025 Assessment & Plan (09/30/2025 1:23 PM SLITTER OPERATOR): -Continue Coreg 25 mg twice daily Assessment & Plan (09/29/2025 7:58 AM SLITTER OPERATOR): -Continue Coreg 25 mg twice daily Assessment & Plan (09/28/2025 10:59 AM SLITTER OPERATOR): -Continue Coreg 25 mg twice daily Assessment & Plan (09/27/2025 2:10 PM SLITTER OPERATOR): - Continue Coreg 25 mg twice daily Assessment & Plan (09/26/2025 8:35 AM SLITTER OPERATOR): - Continue Coreg 25 mg twice daily Assessment & Plan (09/25/2025 3:03 PM SLITTER OPERATOR): - Continue Coreg 25 mg twice daily Assessment & Plan (09/24/2025 5:48 PM SLITTER OPERATOR): -see above Assessment & Plan (09/23/2025 5:13 PM SLITTER OPERATOR): -see above Assessment & Plan (09/22/2025 7:39 AM SLITTER OPERATOR): -see above Assessment & Plan (09/21/2025 9:54 AM SLITTER OPERATOR): -see above Assessment & Plan (09/20/2025 9:27 AM SLITTER OPERATOR): Assessment & Plan (09/20/2025 8:16 AM SLITTER OPERATOR): -see above Assessment & Plan (05/13/2025 9:27 [...] 04/29/2025 Assessment & Plan (09/30/2025 1:23 PM SLITTER OPERATOR): -A1c 4.5 -Discontinue Accu-Cheks and sliding scale insulin, will monitor glucose on daily labs Assessment & Plan (09/29/2025 7:58 AM SLITTER OPERATOR): -A1c 4.5 -Discontinue Accu-Cheks and sliding scale insulin, will monitor glucose on daily labs Assessment & Plan (09/28/2025 8:21 AM SLITTER OPERATOR): -A1c 4.5 -Discontinue Accu-Cheks and sliding scale insulin, will monitor glucose on daily labs Assessment & Plan (09/27/2025 2:10 PM SLITTER OPERATOR): -A1c 4.5 -Discontinue Accu-Cheks and sliding scale insulin, will monitor glucose on daily labs Assessment & Plan (09/26/2025 8:35 AM SLITTER OPERATOR): -A1c 4.5 -Discontinue Accu-Cheks and sliding scale insulin, will monitor glucose on daily labs Assessment & Plan (09/25/2025 3:03 PM SLITTER OPERATOR): -A1c 4.5 -Discontinue Accu-Cheks and sliding scale insulin, will monitor glucose on daily labs Assessment & Plan (09/24/2025 5:48 PM SLITTER OPERATOR): On SSI Assessment & Plan (09/23/2025 5:13 PM SLITTER OPERATOR): On SSI Assessment & Plan (09/22/2025 7:39 AM SLITTER OPERATOR): On SSI Assessment & Plan (09/21/2025 9:54 AM SLITTER OPERATOR): On SSI Assessment & Plan (09/20/2025 9:27 AM SLITTER OPERATOR): Assessment & Plan (09/20/2025 8:16 AM SLITTER OPERATOR): On SSI Assessment & Plan (05/13/2025 9:27 [...] Department Care Team Description 09/19/2025 10:05 PM SLITTER OPERATOR - 09/30/2025 9:43 PM SLITTER OPERATOR Hospital Encounter [facility] [address] [place] [address] Tae Fisher MD Esechie, Aimalohi, MD Billadeau, Maggie, DO Neurology Discharge Disposition: Alf Facility 09/03/2025 Telephone [facility]ALUATION UNIT [address] [facility] [place] [address] Bethany Juarez Appointment 08/07/2025 10:15 AM CDT Office Visit [facility] - ENT [address] [place] [id number] Carlitos Hobson MD Secondary hyperparathyroidism (HCC) (Primary Dx) 08/07/2025 Telephone [facility] - [facility] [address] [place] [phone] Carlitos Hobson MD Question 07/19/2025 Telephone [facility] [address] [place] [address] Chandrakant Marcum MD Referral from [...] and heating? Not hard at all 04/30/2025 [facility] Occupat ional Health - Occupational Stress [...] any time in the past 12 [facility], were you homeless or living in a usp (including now)? No 04/30/2025 Comments Unknown Sex and Gender Information Value Date Recorded Sex Assigned at Not on file Legal Sex Female 9:52 AM CDT Gender Identity Not on file Sexual Orientation Not on file Last Filed Vital Signs Vital Sign Reading Time Taken Comments Blood Pressure 115/76 09/30/2025 8:48 PM SLITTER OPERATOR Pulse 103 09/30/2025 8:48 PM SLITTER OPERATOR Temperature 36.5 C (97.7 F) 09/30/2025 8:48 PM SLITTER OPERATOR Respiratory Rate 16 09/30/2025 8:48 PM SLITTER OPERATOR Oxygen Saturation 99% 09/30/2025 9:12 PM SLITTER OPERATOR Inhaled Oxygen Concentration - - Weight 70 kg (154 lb 6.4 oz) 09/29/2025 11:05 AM SLITTER OPERATOR Height 165.1 cm (5' 5) 09/20/2025 8:00 AM SLITTER OPERATOR Body Mass Index 25.69 09/20/2025 8:00 AM SLITTER OPERATOR Plan of Treatment Upcoming Encounters Date Type Department Care Team (Late st Contact Info) Description 10/31/2025 1:00 AM SLITTER OPERATOR Clinical Support [facility] - Cardiology [address] [facility], [facility] [address] [place] [address] 11/21/2025 10:30 AM SLITTER OPERATOR Office Visit [facility] - Neurology [address] [facility] [place] [phone] Debi Carmen PA-C [address] [facility] [address] [place] [phone] 12/05/2025 1:00 AM SLITTER OPERATOR Clinical Support [facility] - Cardiology [address] [facility], [address] [address] 01/09/2026 1:00 AM CDT Clinical Support [facility] - Cardiology [address] [facility], [address] [address] 02/13/2026 1:00 AM CDT Clinical Support [facility] - Cardiology [address] [facility], [address] [address] 03/20/2026 1:00 AM CDT Clinical Support [facility] - Cardiology [address] [facility], [address] [address] Health Maintenance Due Date Last Done Comments [...] this topic Medical Devices Implanted Type Area Apprentice Technician Device Identifier Shelf Expiration Date Model / Serial / Lot Rcdr Crd Linq Ii Ins - [id number] Implanted:Qty: 1 on 05/10/2025 by Maryann Roa MD at [facility] [employer] [id number] 09/07/2026 [id number] / [id number] / [id number] Procedures Procedure Name Priority Date/Time Associated Diagnosis Comments GLUCOSE - POINT OF CARE Routine 09/30/2025 9:06 PM SLITTER OPERATOR CBC W/O DIFFERENTIAL Routine 09/30/2025 6:51 PM SLITTER OPERATOR BASIC METABOLIC PANEL (CALCIUM TOTAL) Routine 09/30/2025 6:51 PM SLITTER OPERATOR GLUCOSE - POINT OF CARE Routine 09/30/2025 5:12 PM SLITTER OPERATOR CBC W/O DIFFERENTIAL Routine 09/30/2025 4:10 PM SLITTER OPERATOR BASIC METABOLIC PANEL (CALCIUM TOTAL) Routine 09/30/2025 4:10 PM SLITTER OPERATOR GLUCOSE - POINT OF CARE Routine 09/30/2025 11:50 AM SLITTER OPERATOR GLUCOSE - POINT OF CARE Routine 09/30/2025 8:32 AM SLITTER OPERATOR GLUCOSE - POINT OF CARE Routine 09/29/2025 9:22 PM SLITTER OPERATOR GLUCOSE - POINT OF CARE Routine 09/29/2025 5:33 PM SLITTER OPERATOR GLUCOSE - POINT OF CARE Routine 09/29/2025 1:00 PM SLITTER OPERATOR GLUCOSE - POINT OF CARE Routine 09/28/2025 10:26 PM SLITTER OPERATOR CBC W/O DIFFERENTIAL Routine 09/28/2025 6:47 PM SLITTER OPERATOR BASIC METABOLIC PANEL (CALCIUM TOTAL) Routine 09/28/2025 6:47 PM SLITTER OPERATOR GLUCOSE - POINT OF CARE Routine 09/28/2025 4:47 PM SLITTER OPERATOR HEMODIALYSIS INPATIENT Routine 09/28/2025 12:17 PM SLITTER OPERATOR GLUCOSE - POINT OF CARE Routine 09/28/2025 12:06 PM SLITTER OPERATOR GLUCOSE - POINT OF CARE Routine 09/28/2025 8:07 AM SLITTER OPERATOR GLUCOSE - POINT OF CARE Routine 09/27/2025 9:14 PM SLITTER OPERATOR CBC W/O DIFFERENTIAL Routine 09/27/2025 6:28 PM SLITTER OPERATOR BASIC METABOLIC PANEL (CALCIUM TOTAL) Routine 09/27/2025 6:28 PM SLITTER OPERATOR GLUCOSE - POINT OF CARE Routine 09/27/2025 5:36 PM SLITTER OPERATOR GLUCOSE - POINT OF CARE Routine 09/27/2025 5:05 PM SLITTER OPERATOR GLUCOSE - POINT OF CARE Routine 09/27/2025 12:02 PM SLITTER OPERATOR GLUCOSE - POINT OF CARE Routine 09/26/2025 9:28 PM SLITTER OPERATOR CBC W/O DIFFERENTIAL Routine 09/26/2025 6:23 PM SLITTER OPERATOR BASIC METABOLIC PANEL (CALCIUM TOTAL) Routine 09/26/2025 6:23 PM SLITTER OPERATOR HEMODIALYSIS INPATIENT Routine 09/26/2025 4:23 PM SLITTER OPERATOR GLUCOSE - POINT OF CARE Routine 09/26/2025 4:09 PM SLITTER OPERATOR GLUCOSE - POINT OF CARE Routine 09/26/2025 12:02 PM SLITTER OPERATOR GLUCOSE - POINT OF CARE Routine 09/26/2025 8:11 AM SLITTER OPERATOR GLUCOSE - POINT OF CARE Routine 09/25/2025 9:39 PM SLITTER OPERATOR CBC W/O DIFFERENTIAL Routine 09/25/2025 6:49 PM SLITTER OPERATOR BASIC METABOLIC PANEL (CALCIUM TOTAL) Routine 09/25/2025 6:49 PM SLITTER OPERATOR GLUCOSE - POINT OF CARE Routine 09/25/2025 11:21 AM SLITTER OPERATOR EKG 12-LEAD Routine 09/25/2025 9:34 AM SLITTER OPERATOR Acute encephalopathy GLUCOSE - POINT OF CARE Routine 09/25/2025 7:33 AM SLITTER OPERATOR HEMODIALYSIS INPATIENT Routine 09/25/2025 5:11 AM SLITTER OPERATOR GLUCOSE - POINT OF CARE Routine 09/24/2025 9:06 PM SLITTER OPERATOR CBC W/O DIFFERENTIAL Routine 09/24/2025 6:37 PM SLITTER OPERATOR BASIC METABOLIC PANEL (CALCIUM TOTAL) Routine 09/24/2025 6:37 PM SLITTER OPERATOR GLUCOSE - POINT OF CARE Routine 09/24/2025 4:04 PM SLITTER OPERATOR GLUCOSE - POINT OF CARE Routine 09/24/2025 12:16 PM SLITTER OPERATOR GLUCOSE - POINT OF CARE Routine 09/24/2025 9:28 AM SLITTER OPERATOR CBC W/O DIFFERENTIAL Routine 09/24/2025 3:58 AM SLITTER OPERATOR BASIC METABOLIC PANEL (CALCIUM TOTAL) Routine 09/24/2025 3:58 AM SLITTER OPERATOR GLUCOSE - POINT OF CARE Routine 09/23/2025 8:29 PM SLITTER OPERATOR GLUCOSE - POINT OF CARE Routine 09/23/2025 4:23 PM SLITTER OPERATOR GLUCOSE - POINT OF CARE Routine 09/23/2025 12:31 PM SLITTER OPERATOR ERYTHROCYTE SEDIMENTATION RATE Routine 09/22/2025 11:39 PM SLITTER OPERATOR CBC W/O DIFFERENTIAL Routine 09/22/2025 11:39 PM SLITTER OPERATOR BASIC METABOLIC PANEL (CALCIUM TOTAL) Routine 09/22/2025 11:39 PM SLITTER OPERATOR GLUCOSE - POINT OF CARE Routine 09/22/2025 10:06 PM SLITTER OPERATOR GLUCOSE - POINT OF CARE Routine 09/22/2025 9:09 PM SLITTER OPERATOR HEMODIALYSIS INPATIENT Routine 09/22/2025 5:38 PM SLITTER OPERATOR GLUCOSE - POINT OF CARE Routine 09/22/2025 4:00 PM SLITTER OPERATOR GLUCOSE - POINT OF CARE Routine 09/22/2025 11:54 AM SLITTER OPERATOR GLUCOSE - POINT OF CARE Routine 09/22/2025 8:06 AM SLITTER OPERATOR CBC W/O DIFFERENTIAL Routine 09/22/2025 4:37 AM SLITTER OPERATOR BASIC METABOLIC PANEL (CALCIUM TOTAL) Routine 09/22/2025 4:37 AM SLITTER OPERATOR GLUCOSE - POINT OF CARE Routine 09/21/2025 8:34 PM SLITTER OPERATOR GLUCOSE - POINT OF CARE Routine 09/21/2025 12:23 PM SLITTER OPERATOR GLUCOSE - POINT OF CARE Routine 09/21/2025 7:46 AM SLITTER OPERATOR HEPATITIS B SURFACE ANTIBODY QUANT STAT 09/21/2025 6:27 AM SLITTER OPERATOR HEPATITIS B SURFACE ANTIGEN W RFLX CONFIRMATION STAT 09/21/2025 6:27 AM SLITTER OPERATOR LEX BLOOD SCREEN W/REFLEX TITER AM Draw 09/21/2025 4:36 AM SLITTER OPERATOR SS-A/SS-B (SJOGREN'S) ANTIBODY PANEL AM Draw 09/21/2025 4:36 AM SLITTER OPERATOR ANCA VASCULITIS PANEL AM Draw 09/21/2025 4:36 AM SLITTER OPERATOR C-REACTIVE PROTEIN AM Draw 09/21/2025 4: 36 AM SLITTER OPERATOR VITAMIN D 25-HYDROXY AM Draw 09/21/2025 4:36 AM SLITTER OPERATOR VITAMIN D 1,25 DIHYDROXY AM Draw 09/21/2025 4:36 AM SLITTER OPERATOR PTH RELATED PEPTIDE AM Draw 09/21/2025 4 :36 AM SLITTER OPERATOR BASIC METABOLIC PANEL (CALCIUM TOTAL) Routine 09/21/2025 4:36 AM SLITTER OPERATOR CALCIUM IONIZED WHOLE BLOOD AM Draw 09/21/2025 4:35 AM SLITTER OPERATOR XR ABDOMEN KUB PORTABLE STAT 09/20/2025 11:44 PM SLITTER OPERATOR Ischemic stroke (HCC) GLUCOSE - POINT OF CARE Routine 09/20/2025 11:06 PM SLITTER OPERATOR GLUCOSE - POINT OF CARE Routine 09/20/2025 9:07 PM SLITTER OPERATOR GLUCOSE - POINT OF CARE Routine 09/20/2025 6:24 PM SLITTER OPERATOR HEMODIALYSIS INPATIENT Routine 09/20/2025 4:36 PM SLITTER OPERATOR GLUCOSE - POINT OF CARE Routine 09/20/2025 4:21 PM SLITTER OPERATOR GLUCOSE - POINT OF CARE Routine 09/20/2025 3:51 PM SLITTER OPERATOR HEMODIALYSIS INPATIENT Routine 09/20/2025 2:56 PM SLITTER OPERATOR IR CAROTID CEREBRAL ANGIOGRAM STAT 09/20/2025 11:28 AM SLITTER OPERATOR Ischemic stroke (HCC) XR CHEST 1VW Routine 09/20/2025 9:10 AM SLITTER OPERATOR ESRD (end stage renal disease) (HCC) GLUCOSE - POINT OF CARE Routine 09/20/2025 8:09 AM SLITTER OPERATOR TROPONIN-I HIGH SENSITIVE REFLEX 1HOUR Timed 09/20/2025 5:42 AM SLITTER OPERATOR PTH INTACT W/O CALCIUM STAT 09/20/2025 4:12 AM SLITTER OPERATOR PHOSPHORUS BLOOD STAT 09/20/2025 4:12 AM SLITTER OPERATOR MAGNESIUM BLOOD STAT 09/20/2025 4:12 AM SLITTER OPERATOR CBC W AUTO DIFFERENTIAL STAT 09/20/2025 4:12 AM SLITTER OPERATOR COMPREHENSIVE METABOLIC PANEL STAT 09/20/2025 4:12 AM SLITTER OPERATOR HEMOGLOBIN A1C Routine 09/20/2025 4:12 AM SLITTER OPERATOR LIPID PROFILE Routine 09/20/2025 4:12 AM SLITTER OPERATOR TROPONIN-I HIGH SENSITIVE BASELINE + 1HR STAT 09/20/2025 4:12 AM SLITTER OPERATOR CBC W/O DIFFERENTIAL Routine 09/20/2025 4:12 AM SLITTER OPERATOR BASIC METABOLIC PANEL (CALCIUM TOTAL) Routine 09/20/2025 4:[address] HEAD WO CONTRAST STAT 09/19/2025 1 1:52 PM SLITTER OPERATOR Ischemic stroke (HCC) Acute encephalopathy PAP IMAGE-GUIDED W HPV+CT/NG+TRICH STAT 05/06/2025 3:32 PM CDT Vaginal bleeding Uterine mass HPV PANEL STAT 05/06/2025 3:32 PM CDT Vaginal bleeding Uterine mass HEPATITIS C AB SCREEN RFLX NAAT QUANT Routine 05/03/2025 4:28 PM CDT from Last 3 Months or Most Recently Relevant to Health Maintenance Results * (ABNORMAL) GLUCOSE - POINT OF CARE (09/30/2025 9:06 PM SLITTER OPERATOR) Only the most recent of43 resultswithin the time period is included. Pathologist [facility] Glucose WB/POC 198(H) 70 - 99 mg/dL 09/30/2025 9:08 PM SLITTER OPERATOR [facility] Specimen Type Arterial/C apillary 09/30/2025 9:08 PM SLITTER OPERATOR [facility] Blood BLOOD SPECIMEN / Unknown 09/30/2025 9:06 PM SLITTER OPERATOR 09/30/2025 9:08 PM SLITTER OPERATOR us Cherelle Billadeau DO LAB - POINT OF CARE ORDERABL ES Final Result [facility] [address] [address], [facility] [phone] * (ABNORMAL) CBC W/O DIFFERENTIAL (09/30/2025 6:51 PM SLITTER OPERATOR) Only the most recent of11 resultswithin the time period is included. Pathologist [facility] WBC 14.5(H) 4.0 - 10.7 x10E9/L 09/30/2025 8:01 PM [facility] RBC Count 4.77 3.90 - 5.20 x10E12/L 09/30/2025 8:01 PM [facility] Hemoglobin 13.8 11.9 - 15.8 g/dL 09/30/2025 8:01 PM [facility] Hematocrit 42.5 34.8 - 46.1 % 09/30/2025 8:01 PM [facility] MCV 89.1 80.0 - 98.0 fL 09/30/2025 8:01 PM [facility] MCH 28.9 26.7 - 33.6 pg 09/30/2025 8:01 PM [facility] MCHC 32.5 31.7 - 36.3 g/dL 09/30/2025 8:01 PM [facility] RDW-CV 15.1(H) 11.3 - 14.8 % 09/30/2025 8:01 PM [facility] Platelet Count 265 150 - 420 x10E9/L 09/30/2025 8:01 PM [facility] MPV 11.6(H) 7.8 - 11.4 fL 09/30/2025 8:01 PM [facility] Blood BLOOD SPECIMEN / Unknown Lab Venipuncture / Unknown 09/30/2025 6:51 PM SLITTER OPERATOR 09/30/2025 7:53 PM SLITTER OPERATOR Columba Blnac MD LAB - HEMATOLOGY ORDERABLES Final Result [facility] [address] [place] [address], [facility] [phone] * (ABNORMAL) BASIC METABOLIC PANEL (CALCIUM TOTAL) (09/30/2025 6:51 PM SLITTER OPERATOR) Only the most recent of12 resultswithin the time period is included. Pathologist [facility] BUN 45(H) 7 - 26 mg/dL 09/30/2025 8:49 PM [facility] Creatinine 8.94(H) 0.56 - 0.96 mg/dL 09/30/2025 8:49 PM [facility] Sodium 136 136 - 145 mmol/L 09/30/2025 8:49 PM [facility] Potassium 4.5 3.5 - 4.5 mmol/L 09/30/2025 8:49 PM [facility] Chloride 97(L) 98 - 107 mmol/L 09/30/2025 8:49 PM [facility] CO2 19(L) 22 - 29 mmol/L 09/30/2025 8:49 PM [facility] Glucose 184(H) 70 - 99 mg/dL 09/30/2025 8:49 PM [facility] Calcium 11.1(H) 8.4 - 10.2 mg/dL 09/30/2025 8:49 PM [facility] Anion Gap 20(H) 6 - 16 09/30/2025 8:49 PM [facility] BUN/Creatinine Ratio 5(L) 7 - 23 09/30/2025 8:49 PM [facility] Osmolality Calculated 298(H) 275 - 295 mOsm/kg 09/30/2025 8:49 PM [facility] eGFR by CKD-EPI 4(L) >=90 mL/min/1.7 3 m2 09/30/2025 8:49 PM [facility] Comment:Estimated Glomerular Filtration Rate (eGFR) calculated using the CKD-EPI Creatinine Equation (2020), per the National Kidney Foundation and [place] Society of Nephrology recommendations. Blood BLOOD SPECIMEN / Unknown Lab Venipuncture / Unknown 09/30/2025 6:51 PM SLITTER OPERATOR 09/30/2025 7:36 PM [facility] us Columba Blanc MD LAB - CHEMISTRY ORDERABLES F inal Result [facility] [address] [place] [address], [facility] [phone] * EKG 12-Lead (09/25/2025 9:34 AM [facility]) Ventricular Rate 93 BPM [facility] MUSE Atrial Rate 93 BPM [facility] MUSE P-R Interval 198 ms [facility] MUSE QRS Duration ms 78 ms [facility] MUSE Q-T Interval ms 350 ms [facility] MUSE QTC Calculation (Bezet) 435 ms [facility] MUSE Calculated P [place] 64 degrees [facility] MUSE Calculated R [place] 24 degrees [facility] MUSE Calculated T [place] 48 degrees [facility] MUSE Interpretation EKG NORMAL SINUS RHYTHM LOW VOLTAGE QRS CANNOT RULE OUT INFERIOR INFARCT , AGE UNDETERMINED ABNORMAL ECG NO PREVIOUS ECGS AVAILABLE Confirmed by ARINA SINGH, THERESA SCHNEIDER ([id number]) on 09/29/2025 8:58:47 PM [facility] MUSE 09/25/2025 9:34 AM SLITTER OPERATOR 09/29/2025 8:58 PM SLITTER OPERATOR Cherelle Islas DO ECG ORDERABLES Edited Resul t - Final [facility] MUSE * ERYTHROCYTE SEDIMENTATION RATE (09/22/2025 11:39 PM SLITTER OPERATOR) Pathologist [facility] Erythrocyte Sedimentation Rate Westergren 18 0 - 30 MM/HR 09/23/2025 12:21 AM [facility] Blood BLOOD SPECIMEN / Unknown Lab Venipuncture / Unknown 09/22/2025 11:39 PM SLITTER OPERATOR 09/22/2025 11:54 PM SLITTER OPERATOR Columba Blanc MD LAB - HEMATOLOGY ORDERABLES Final Result [address] [address], [facility] [phone] * (ABNORMAL) HEPATITIS B SURFACE ANTIBODY QUANT (09/21/2025 6:27 AM SLITTER OPERATOR) Hepatitis B Virus Surface Antibody Reactive( A) Non-react nancy 09/21/2025 7:58 AM [facility] Comment: > 12 mIU/mL Hepatitis B surface Antibody (HBsAb). Reactive for HBsAb - individual is considered immune to Hepatitis B Virus infection. Hepatitis B Surface Antibody Quantitative 29.9(H) <8.0 mIU/mL 09/21/2025 7:58 AM [facility] Comment: Hepatitis B Surface Antibody Numeric Result Interpretation: Nonreactive: <8.0 mIU/mL Indeterminate: 8.0 - 12.0 mIU/mL Reactive: >12.0 mIU/mL Blood BLOOD SPECIMEN / Unknown Lab Venipuncture / Unknown 09/21/2025 6:27 AM SLITTER OPERATOR 09/21/2025 6:35 AM SLITTER OPERATOR Narrative [facility] - 09/21/2025 7:58 AM SLITTER OPERATOR This assay should not be used for blood, plasma, or tissue donor screening. This assay is not recommended for neonates born to HBV-infected or suspected HBV-infected mothers. Sierra Benson MD LAB - SEROLOGY ORDERABLES Fin al Result Performing Organization Address City/[facility]/ZIP Co de Phone Number [address] [address], [facility] [phone] * HEPATITIS B SURFACE ANTIGEN W RFLX CONFIRMATION (09/21/2025 6:27 AM SLITTER OPERATOR) Pathologist [facility] Hepatitis B Virus Surface Antigen Non-reacti ve Non-reacti ve 09/21/2025 7:58 AM [facility] Blood BLOOD SPECIMEN / Unknown Lab Venipuncture / Unknown 09/21/2025 6:27 AM SLITTER OPERATOR 09/21/2025 6:35 AM SLITTER OPERATOR Sierra Benson MD LAB - CHEMISTRY ORDERABLES Fi nal Result Performing Organization Address [facility] Co de Phone Number [address] [address], [facility] [phone] * ANCA VASCULITIS PANEL (09/21/2025 4:36 AM SLITTER OPERATOR) Myeloperoxidase Antibody 0 0 - 19 AU/mL 09/25/2025 6:22 AM SLITTER OPERATOR [employer] ([facility]) Comment: INTERPRETIVE INFORMATION: Myeloperoxidase Abs, IgG 19 AU/mL or Less ......... Negative 20-25 AU/mL .............. Equivocal 26 AU/mL or Greater ...... Positive Approximately 90% of patients with a P-ANCA pattern by IFA have antibodies specific for MPO. Serine Proteinase 3 IgG 0 0 - 19 AU/mL 09/25/2025 6:22 AM SLITTER OPERATOR [facility] ([facility]) Comment: INTERPRETIVE INFORMATION: Serine Proteinase 3, IgG 19 AU/mL or Less ........ Negative 20-25 AU/mL ............. Equivocal 26 AU/mL or Greater ..... Positive Approximately 85% of patients with a C-ANCA pattern by IFA have antibodies specific for PR3. ANCA Titer IFA <1:20 <1:20 09/25/2025 6:22 AM SLITTER OPERATOR [facility] ([facility]) ANCA Pattern IFA None Detected None Detected 09/25/2025 6:22 AM SLITTER OPERATOR [facility]) Comment: INTERPRETIVE INFORMATION: ANCA IFA Pattern Neutrophil Cytoplasmic Antibodies (C-ANCA = granular cytoplasmic staining, P-ANCA = perinuclear staining) are found in the serum of over 90 percent of patients with certain necrotizing systemic vasculitides, and usually in less than 5 percent of patients with collagen vascular disease or arthritis. Performed By: [email or web address] [address] [place], [place] [id number] Echocardiography Tech: Joao Luis MD, PhD CLIA Number: [id number] Blood BLOOD SPECIMEN / Unknown Lab Venipuncture / Unknown 09/21/2025 4:36 AM SLITTER OPERATOR 09/21/2025 4:36 AM SLITTER OPERATOR Columba Blanc MD LAB - CHEMISTRY ORDERABLES F inal Result [facility]) [address] [place] [id number] [place] [address] * (ABNORMAL) C-REACTIVE PROTEIN (09/21/2025 4:36 AM SLITTER OPERATOR) C-Reactive Protein 0.8(H) <=0.5 mg/dL 09/21/2025 5:54 AM SLITTER OPERATOR [facility] Blood BLOOD SPECIMEN / Unknown Lab Venipuncture / Unknown 09/21/2025 4:36 AM SLITTER OPERATOR 09/21/2025 4:36 AM SLITTER OPERATOR Columba Blanc MD LAB - CHEMISTRY ORDERABLES F inal Result [facility] [address] [place] [address], [facility] [phone] * LEX BLOOD SCREEN W/REFLEX TITER (09/21/2025 4:36 AM SLITTER OPERATOR) LEX IgG None Detected None Detected 09/24/2025 6:59 AM SLITTER OPERATOR [facility] [employer] ([facility]) Comment: No Anti-Nuclear Antibodies (LEX) detected by ABHIJEET. No further testing will be performed. If suspicion of connective tissue disease is strong and LEX ABHIJEET is negative, consider testing for LEX by IFA ([id number]). INTERPRETIVE INFORMATION: Anti-Nuclear Antibodies (LEX), IgG by ABHIJEET Antinuclear Antibodies (LEX), IgG by ABHIJEET: LEX specimens are screened using enzyme-linked immunosorbent assay (ABHIJEET) methodology. All ABHIJEET results reported as Detected are further tested by indirect fluorescent assay (IFA) using HEp-2 substrate with an IgG-specific conjugate. The LEX ABHIJEET screen is designed to detect antibodies against dsDNA, histones, SS-A (Ro), SS-B (La), Newman, Newman/HOME FURNISHINGS SALES REPRESENTATIVE, Scl-70, Erica-1, centromeric proteins, other antigens extracted from the HEp-2 cell nucleus. LEX ABHIJEET assays have been reported to have lower sensitivities than LEX IFA for systemic autoimmune rheumatic diseases (SARD). Negative results do not necessarily rule out SARD. Performed By: [facility] [address] [place] [address] Echocardiography Tech: Joao Luis MD, PhD CLIA Number: [id number] Blood BLOOD SPECIMEN / Unknown Lab Venipuncture / Unknown 09/21/2025 4:36 AM SLITTER OPERATOR 09/21/2025 4:36 AM SLITTER OPERATOR Columba Blanc MD LAB - CHEMISTRY ORDERABLES F inal Result [facility] [employer]) [address] * SS-A/SS-B (SJOGREN'S) ANTIBODY PANEL (09/21/2025 4:36 AM SLITTER OPERATOR) Sjogren's Antibodies (SSA) <0.2 0.0 - 0.9 AI 09/23/2025 2:10 PM SLITTER OPERATOR [facility] ([facility]) Sjogren's Antibodies (SSB) <0.2 0.0 - 0.9 AI 09/23/2025 2:10 PM SLITTER OPERATOR [facility] ([facility]) Blood BLOOD SPECIMEN / Unknown Lab Venipuncture / Unknown 09/21/2025 4:36 AM SLITTER OPERATOR 09/21/2025 4:36 AM SLITTER OPERATOR Narrative [facility] ([facility]) - 09/23/2025 2:10 PM SLITTER OPERATOR Performed at: - [facility] [address] [place], [place] [id number] Java Software: Charbel Gooden PhD, Phone: [phone] Columba Blanc MD LAB - CHEMISTRY ORDERABLES F inal Result Performing Organization Address [facility] Co de Phone Number [facility]) [address] [place] [address] * (ABNORMAL) PTH RELATED PEPTIDE (09/21/2025 4:36 AM SLITTER OPERATOR) [facility] Signature PTH Related Peptide 6.0(H) 0.0 - 3.4 pmol/L 09/29/2025 9:33 AM SLITTER OPERATOR [facility] ([facility]) Comment: INTERPRETIVE INFORMATION: Parathyroid Hormone-Related Peptide This test was developed and its performance characteristics determined by [facility]. It has not been cleared or approved by the US Food and Drug Administration. This test was performed in a CLIA certified laboratory and is intended for clinical purposes. Performed By: [facility] [address] [place] [id number] Echocardiography Tech: Joao Luis MD, PhD CLIA Number: [id number] Blood BLOOD SPECIMEN / Unknown Lab Venipuncture / Unknown 09/21/2025 4:36 AM SLITTER OPERATOR 09/21/2025 4:36 AM SLITTER OPERATOR Columba Blanc MD LAB - CHEMISTRY ORDERABLES F inal Result Performing Organization Address City/[facility] Co de Phone Number [facility]) [address] [place] [address] * (ABNORMAL) VITAMIN D 1,25 DIHYDROXY (09/21/2025 4:36 AM SLITTER OPERATOR) Vitamin D, 1,25 Dihydroxy 14.1(L) 19.9 - 79.3 pg/mL 09/23/2025 2:06 PM SLITTER OPERATOR [facility] ([facility]) Comment: INTERPRETIVE INFORMATION: Vitamin D, 1,25-Dihydroxy This test is primarily indicated during patient evaluation for hypercalcemia and renal failure. A normal result does not rule out Vitamin D deficiency. The recommended test for diagnosing Vitamin D deficiency is Vitamin D 25-hydroxy. Performed By: [place] [address] Echocardiography Tech: Joao Luis MD, PhD CLIA Number: [id number] Blood BLOOD SPECIMEN / Unknown Lab Venipuncture / Unknown 09/21/2025 4:36 AM SLITTER OPERATOR 09/21/2025 4:36 AM SLITTER OPERATOR Columba Blanc MD LAB - CHEMISTRY ORDERABLES F inal Result [facility]) [address] [place] [address] * (ABNORMAL) VITAMIN D 25-HYDROXY (09/21/2025 4:36 AM SLITTER OPERATOR) Vitamin D, 25 Hydroxy 19.9(L) 30.0 - 80.0 ng/mL 09/21/2025 6:09 AM SLITTER OPERATOR [facility] Comment: The recommendations for 25-Hydroxy [...] Lab Venipuncture / Unknown 09/21/2025 4:36 AM SLITTER OPERATOR 09/21/2025 4:36 AM SLITTER OPERATOR Columba Blanc MD LAB - CHEMISTRY ORDERABLES F inal Result Performing Organization Address City/[facility]/ZIP Co de Phone Number [address] [address], [place] [phone] * CALCIUM IONIZED WHOLE BLOOD (09/21/2025 4:35 AM SLITTER OPERATOR) Calcium Ionized 1.32 mmol/L 09/21/2025 5:13 AM SLITTER OPERATOR [facility] pH 7.38 7.35 - 7.45 pH 09/21/2025 5:13 AM SLITTER OPERATOR [facility] Ionized Calcium pH Adjusted 1.31 1.19 - 1.34 mmol/L 09/21/2025 5:13 AM SLITTER OPERATOR [facility] Blood BLOOD SPECIMEN / Unknown Lab Venipuncture / Unknown 09/21/2025 4:35 AM SLITTER OPERATOR 09/21/2025 4:35 AM SLITTER OPERATOR Columba Blanc MD LAB - CHEMISTRY ORDERABLES F inal Result Performing Organization Address [facility] Co de Phone Number [address] [address], [place] [phone] * XR Abdomen Kub Portable (09/20/2025 11:44 PM SLITTER OPERATOR) Anatomical Region Laterality Modality Abdomen Digital Radiogra phy 09/21/2025 11:5 7 PM SLITTER OPERATOR Impressions 09/21/2025 11:57 PM SLITTER OPERATOR Impression: Nasogastric tube is in the stomach. The visualized bowel gas pattern is normal. The visualized lung bases are clear. No displaced fracture. > Interpreting Provider: Venancio Varela MD on 09/21/2025 11:57 PM Narrative 09/21/2025 11:57 PM SLITTER OPERATOR PROCEDURE: XR ABDOMEN KUB PORTABLE, DATE/TIME OF EXAM: 09/20/2025 11:44 PM, LOCATION [facility] INDICATION: I63.9: Ischemic stroke (HCC) ADDITIONAL CLINICAL INFORMATION: Ordering Provider Reason For Exam: NGT placement Technologist Note: Additional: COMPARISON: None. Procedure Note Venancio Varela MD - 09/21/2025 PROCEDURE: XR ABDOMEN KUB PORTABLE, DATE/TIME OF EXAM: 1:44 PM, LOCATION [facility] INDICATION: I63.9: Ischemic stroke (HCC) ADDITIONAL CLINICAL [...] IR Carotid Cerebral Angiogram (09/20/2025 11:28 AM SLITTER OPERATOR) Anatomical Region Laterality Modality Head X-Ray Angiograph y 09/20/2025 1:54 PM SLITTER OPERATOR Impressions 09/20/2025 3:49 PM SLITTER OPERATOR Impression: - Multiple alternating areas of moderate to severe stenosis affecting anterior and posterior circulation following a beading pattern. This could represent severe intracranial atherosclerosis or REFRIGERATION SYSTEMS INSTALLER vasculitis, recommend clinical correlation. > Dictated by Electrical Continuity Inspector I, Omar Jack MD have personally reviewed and interpreted this examination/study. > Interpreting Provider: Omar Jack MD on 09/20/2025 3:49 PM Narrative 09/20/2025 3:49 PM SLITTER OPERATOR DATE/TIME OF EXAM: 09/20/2025 10:00 AM Procedure: Diagnostic Catheter Cerebral Angiogram Comparison Study: Brain and neck MRA from 09/19/2025 History: 65 yo woman admitted for an acute infarct in left frontal lobe. CTA shows severe multiple areas of stenosis in anterior and posterior circulation. Plan cerebral angiogram for evaluation of severe intracranial vasculopathy. Sales Training Coordinator: Dr. Jcak Telephone Clerks Supervisor(s): Idris Blanc MD; Santo Hong MD. Vessels: [...] this adult patient was ordered by the hand inserter operator, administered intravenously in my presence, and [...] patient evaluation, please review the evaluation in [facility]. For details on monitored clinical parameters during the intra-service sedation time, please review the procedure nurse documentation in [facility]. Procedural detail: The risks, benefits, and [...] Following a series of exchanges, a 5 [place] 11 cm Glidesheath slender was placed in the radial artery. A radial angiogram was performed through the sheath. A spasmolytic cocktail containing 3000u heparin, 2.5mg verapamil, and 200mcg of nitroglycerin was administered. A 5 [place] Glidecath Rosas 2 diagnostic catheter along with [...] caliber posterior communicating artery suggestive of a ASSISTANT CREDIT MANAGER variant. The middle cerebral artery has a [...] caliber posterior communicating artery suggestive of a ASSISTANT CREDIT MANAGER variant. The middle cerebral artery has a [...] cerebral angiogram for evaluation of severe intracranialvasculopathy. Sales Training Coordinator: Dr. Jack Telephone Clerks Supervisor(s): Idris Blanc MD; Santo Hong MD. Vessels: [...] this adult patient was ordered by the hand inserter operator, administered intravenously in my presence, and [...] patient evaluation, please review the evaluation in [facility]. For details on monitored clinical parameters during the intra-servicesedation time, please review the procedure nurse documentation in [facility]. Procedural detail: The risks, benefits, and [...] Following a series of exchanges, a 5 [place] 11 cm Glidesheath slender was placed in the radial artery. A radial angiogram wasperformed through the sheath. A spasmolytic cocktail containing 3000u heparin,2.5mg verapamil, and 200mcg of nitroglycerin was administered. A 5 [place] Glidecath Rosas 2 diagnostic catheter along with [...] caliber posterior communicating artery suggestive of a ASSISTANT CREDIT MANAGER variant. The middle cerebral artery has adiffuse [...] caliber posterior communicating artery suggestive of a ASSISTANT CREDIT MANAGER variant. The middle cerebral artery has anormal [...] This could represent severe intracranial atherosclerosis or REFRIGERATION SYSTEMS INSTALLER vasculitis, recommend clinical correlation. > Dictated by Electrical Continuity Inspector I, Omar Jack MD have personally reviewed and interpreted this examination/study. > Interpreting Provider: Omar Jack MD on 09/20/2025 3:49 PM us Tae Fisher MD IR ORDERABLES Final Result * XR Chest 1Vw (09/20/2025 9:10 AM SLITTER OPERATOR) Anatomical Region Laterality Modality Chest Digital Radiogra phy 09/20/2025 9:24 AM SLITTER OPERATOR Narrative 09/20/2025 11:45 AM SLITTER OPERATOR PROCEDURE: XR CHEST 1VW, DATE/TIME OF EXAM: 09/20/2025 9:10 AM, LOCATION [facility] INDICATION: N18.6: ESRD (end stage renal disease) ([facility]) ADDITIONAL CLINICAL INFORMATION: Ordering Provider Reason [...] thorax. > Dictated by Vargas Bach M.D., (residential supervisor). > Dictated by Electrical Continuity Inspector Ghulam Coles MD have personally reviewed and interpreted this examination/study. > Interpreting Provider: Ghulam Boykin MD on 09/20/2025 11:45 AM Procedure Note Ghulam Boykin MD - 09/20/2025 PROCEDURE: XR CHEST 1VW, DATE/TIME OF EXAM: 09/20/2025 9:10 AM, LOCATION [facility] INDICATION: N18.6: ESRD (end stage renal disease) ([facility]) ADDITIONAL CLINICAL INFORMATION: Ordering Provider Reason [...] thorax. > Dictated by Vargas Bach M.D., (residential supervisor). > Dictated by Electrical Continuity Inspector Ghulam Coles MD have personally reviewed and interpreted this examination/study. > Interpreting Provider: Ghulam Boykin MD on 09/20/2025 11:45 AM us Tae Fisher MD DIAGNOSTIC IMAGING ORDERABLE S Final Result * TROPONIN-I HIGH SENSITIVE REFLEX 1HOUR (09/20/2025 5:42 AM SLITTER OPERATOR) Troponin I High Sensitive 13 <=14 ng/L 09/20/2025 6:53 AM SLITTER OPERATOR [facility] Delta Troponin I HS 0 <6 ng/L 09/20/2025 6:53 AM SLITTER OPERATOR [facility] Blood BLOOD SPECIMEN / Unknown Lab Venipuncture / Unknown 09/20/2025 5:42 AM SLITTER OPERATOR 09/20/2025 6:10 AM SLITTER OPERATOR us Tae Fisher MD LAB - CHEMISTRY ORDERABLES F inal Result [address] [address], [place] [phone] * TROPONIN-I HIGH SENSITIVE BASELINE + 1HR (09/20/2025 4:12 AM SLITTER OPERATOR) Pathologist [facility] Troponin I High Sensitive 13 <=14 ng/L 09/20/2025 5:48 AM SLITTER OPERATOR [facility] Blood BLOOD SPECIMEN / Unknown Lab Venipuncture / Unknown 09/20/2025 4:12 AM SLITTER OPERATOR 09/20/2025 5:11 AM SLITTER OPERATOR us Tae Fisher MD LAB - CHEMISTRY ORDERABLES F inal Result [address] [address], [place] [phone] * (ABNORMAL) PTH INTACT W/O CALCIUM (09/20/2025 4:12 AM SLITTER OPERATOR) PTH Intact 1,836.5(H) 8.0 - 77.0 pg/mL 09/20/2025 5:51 AM SLITTER OPERATOR [facility] Blood BLOOD SPECIMEN / Unknown Lab Venipuncture / Unknown 09/20/2025 4:12 AM SLITTER OPERATOR 09/20/2025 4:47 AM SLITTER OPERATOR Tae Fisher MD LAB - CHEMISTRY ORDERABLES F inal Result Performing Organization Address City/[facility]/ZIP Co de Phone Number [address] [address], [facility] [phone] * HEMOGLOBIN A1C (09/20/2025 4:12 AM SLITTER OPERATOR) Hemoglobin A1c 5.0 <=5.6 % 09/20/2025 9:16 AM [facility] Estimated Average Glucose 97 mg/dL 09/20/2025 9:16 AM [facility] Comment: HbA1c Interpretation: Normal : < 5.7% Pre-diabetes: 5.7-6.4% Diabetes: Equal to or greater than 6.5% Test results diagnostic of diabetes should be repeated for confirmation. Treatment target values recommended by ADA and other clinical organizations should be used to evaluate metabolic control in patients. Reference: [place] Diabetes Association, Standards of Care in Diabetes -2020 In patients 70 years and older consider HbA1c target range of 7.0-7.5% (Reference: Yo Steinberg et al. JAMDA. 2012) The Sebia assay for the measurement of HbA1c is a National Glycohemoglobin Standardization Program (NGSP) certified method. Blood BLOOD SPECIMEN / Unknown Lab Venipuncture / Unknown 09/20/2025 4:12 AM SLITTER OPERATOR 09/20/2025 5:06 AM SLITTER OPERATOR Tae Fisher MD LAB - CHEMISTRY ORDERABLES F inal Result Performing Organization Address City/[facility]/ZIP Co de Phone Number [address] [address], [facility] [phone] * (ABNORMAL) CBC W AUTO DIFFERENTIAL (09/20/2025 4:12 AM [facility]) WBC 8.8 4.0 - 10.7 x10E9/L 09/20/2025 5:20 AM [facility] RBC Count 4.01 3.90 - 5.20 x10E12/L 09/20/2025 5:20 AM [facility] Hemoglobin 11.4(L) 11.9 - 15.8 g/dL 09/20/2025 5:20 AM [facility] Hematocrit 35.5 34.8 - 46.1 % 09/20/2025 5:20 AM [facility] MCV 88.5 80.0 - 98.0 fL 09/20/2025 5:20 AM [facility] MCH 28.4 26.7 - 33.6 pg 09/20/2025 5:20 AM [facility] MCHC 32.1 31.7 - 36.3 g/dL 09/20/2025 5:20 AM [facility] RDW-CV 14.9(H) 11.3 - 14.8 % 09/20/2025 5:20 AM [facility] Platelet Count 312 150 - 420 x10E9/L 09/20/2025 5:20 AM [facility] MPV 10.5 7.8 - 11.4 fL 09/20/2025 5:20 AM [facility] Neutrophil % 55.8 41.0 - 74.0 % 09/20/2025 5:20 AM [facility] Lymphocyte % 29.5 17.0 - 47.0 % 09/20/2025 5:20 AM [facility] Monocyte % 10.7 3.0 - 11.0 % 09/20/2025 5:20 AM [facility] Eosinophil % 2.8 0.0 - 7.0 % 09/20/2025 5:20 AM [facility] Basophil % 0.9 0.0 - 1.6 % 09/20/2025 5:20 AM [facility] Immature Granulocytes % 0.3 0.0 - 1.0 % 09/20/2025 5:20 AM [facility] Neutrophil Absolute 4.91 1.60 - 7.50 x10E9/L 09/20/2025 5:20 AM [facility] Lymphocyte Absolute 2.60 1.00 - 4.40 x10E9/L 09/20/2025 5:20 AM [facility] Monocyte Absolute 0.94 0.15 - 1.00 x10E9/L 09/20/2025 5:20 AM [facility] Eosinophil Absolute 0.25 0.00 - 0.60 x10E9/L 09/20/2025 5:20 AM [facility] Basophil Absolute 0.08 0.00 - 0.13 x10E9/L 09/20/2025 5:20 AM [facility] Blood BLOOD SPECIMEN / Unknown Lab Venipuncture / Unknown 09/20/2025 4:12 AM SLITTER OPERATOR 09/20/2025 5:06 AM [facility] us Tae Fisher MD LAB - HEMATOLOGY ORDERABLES Final Result [facility] [address] [place] [address], [facility] [phone] * (ABNORMAL) COMPREHENSIVE METABOLIC PANEL (09/20/2025 4:12 AM [facility]) BUN 43(H) 7 - 26 mg/dL 09/20/2025 5:44 AM [facility] Creatinine 9.14(H) 0.56 - 0.96 mg/dL 09/20/2025 5:44 AM [facility] Sodium 140 136 - 145 mmol/L 09/20/2025 5:44 AM [facility] Potassium 3.7 3.5 - 4.5 mmol/L 09/20/2025 5:44 AM [facility] Chloride 95(L) 98 - 107 mmol/L 09/20/2025 5:44 AM [facility] CO2 29 22 - 29 mmol/L 09/20/2025 5:44 AM [facility] Glucose 69(L) 70 - 99 mg/dL 09/20/2025 5:44 AM [facility] Calcium 10.7(H) 8.4 - 10.2 mg/dL 09/20/2025 5:44 AM [facility] Protein Total 7.0 6.0 - 8.3 g/dL 09/20/2025 5:44 AM [facility] Albumin 3.5 3.4 - 5.0 g/dL 09/20/2025 5:44 AM [facility] Bilirubin Total 0.5 0.2 - 1.2 mg/dL 09/20/2025 5:44 AM [facility] Alkaline Phosphatase 114 40 - 150 U/L 09/20/2025 5:44 AM [facility] ALT 13 5 - 55 U/L 09/20/2025 5:44 AM [facility] AST 14 5 - 34 U/L 09/20/2025 5:44 AM [facility] [facility] Anion Gap 16 6 - 16 09/20/2025 5:44 AM [facility] BUN/Creatinine Ratio 5(L) 7 - 23 09/20/2025 5:44 AM [facility] Osmolality Calculated 299(H) 275 - 295 mOsm/kg 09/20/2025 5:44 AM [facility] Albumin/Globulin Ratio 1.0(L) 1.1 - 2.3 09/20/2025 5:44 AM [facility] eGFR by CKD-EPI 4(L) >=90 mL/min/1.7 3 m2 09/20/2025 5:44 AM [facility] Comment:Estimated Glomerular Filtration Rate (eGFR) calculated using the CKD-EPI Creatinine Equation (2020), per the National Kidney Foundation and [place] Society of Nephrology recommendations. Blood BLOOD SPECIMEN / Unknown Lab Venipuncture / Unknown 09/20/2025 4:12 AM SLITTER OPERATOR 09/20/2025 5:11 AM SLITTER OPERATOR Tae Fisher MD LAB - CHEMISTRY ORDERABLES F inal Result Performing Organization Address City/[facility]/ZIP Co de Phone Number [address] [address], [facility] [phone] * (ABNORMAL) PHOSPHORUS BLOOD (09/20/2025 4:12 AM SLITTER OPERATOR) Phosphorus 6.6(H) 2.9 - 5.1 mg/dL 09/20/2025 5:38 AM [facility] Blood BLOOD SPECIMEN / Unknown Lab Venipuncture / Unknown 09/20/2025 4:12 AM SLITTER OPERATOR 09/20/2025 5:10 AM SLITTER OPERATOR Tae Fisher MD LAB - CHEMISTRY ORDERABLES F inal Result [address] [place] [address], [facility] [phone] * MAGNESIUM BLOOD (09/20/2025 4:12 AM SLITTER OPERATOR) Magnesium 2.2 1.6 - 2.6 mg/dL 09/20/2025 5:44 AM [facility] Blood BLOOD SPECIMEN / Unknown Lab Venipuncture / Unknown 09/20/2025 4:12 AM SLITTER OPERATOR 09/20/2025 5:11 AM SLITTER OPERATOR us Tae Fisher MD LAB - CHEMISTRY ORDERABLES F inal Result [address] [address], [facility] [phone] * (ABNORMAL) LIPID PROFILE (09/20/2025 4:12 AM SLITTER OPERATOR) Cholesterol Total 232(H) <200 mg/dL 09/20/2025 5:44 AM [facility] HDL 65 >40 mg/dL 09/20/2025 5:44 AM [facility] Comment: ATP III Classification of HDL Cholesterol: <40 mg/dL: Considered a major risk factor. >60 mg/dL: Considered a negative risk factor. LDL Calculated 148(H) <100 mg/dL 09/20/2025 5:44 AM [facility] Comment: ATP III Classification of LDL Cholesterol: <100 mg/dL: Optimal 100 - 129 mg/dL: Near Optimal/Above Optimal 130 - 159 mg/dL: Borderline High 160 - 189 mg/dL: High >190 mg/dL: Very High LDL is calculated using the Friedewald equation. Triglycerides 95 <150 mg/dL 09/20/2025 5:44 AM [facility] Comment: ATP III Classification of Triglycerides: <150 mg/dL: Normal 150 - 199 mg/dL: Borderline High 200 - 400 mg/dL: High >500 mg/dL: Very High Blood BLOOD SPECIMEN / Unknown Lab Venipuncture / Unknown 09/20/2025 4:12 AM SLITTER OPERATOR 09/20/2025 5:11 AM SLITTER OPERATOR us Tae Fisher MD LAB - CHEMISTRY ORDERABLES F inal Result [facility] [address] [place] [address], [facility] [phone] * CT HEAD WO CONTRAST (09/19/2025 11:52 PM SLITTER OPERATOR) Anatomical Region Laterality Modality Head Computed Tomogra phy 09/19/2025 11:5 6 PM SLITTER OPERATOR Impressions 09/20/2025 12:15 AM SLITTER OPERATOR IMPRESSION: 1.No CT evidence of acute hemorrhage, herniation, or large territorial infarct. 2.Please note CT is insensitive to small infarcts particularly in the posterior fossa, if there is continued clinical concern MRI can be obtained. 3.Encephalomalacia in the left shin radiata is new new since 04/30/2025. 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 > Dictated by Alberto David MD, (residential supervisor). > Dictated by Alberto David MD 09/19/2025 11:56 PM > Dictated by Electrical Continuity Inspector I, Tra Russell MD have personally reviewed and interpreted this examination/study. > Interpreting Provider: Tra Russell MD on 09/20/2025 12:15 AM Narrative 09/20/2025 12:15 AM SLITTER OPERATOR PROCEDURE: CT HEAD WO CONTRAST, DATE/TIME OF EXAM: 09/19/2025 11:52 PM, LOCATION [facility] INDICATION: I63.9: Ischemic stroke (HCC) G93.40: Acute [...] is seen. 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 Additional encephalomalacia in the left shin [...] CONTRAST, DATE/TIME OF EXAM: 09/19/2025 11:52PM, LOCATION [facility] INDICATION: I63.9: Ischemic stroke (HCC) G93.40: Acute [...] is seen. 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 Additional encephalomalacia in the left shin [...] radiata is new new since04/30/2025. 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 > Dictated by Alberto David MD, (residential supervisor). > Dictated by Alberto David MD 09/19/2025 11:56 PM > Dictated by Electrical Continuity Inspector I, Tra Russell MD have personally reviewed and interpreted this examination/study. > Interpreting Provider: Tra Russell MD on 09/20/2025 12:15 AM us Tae Fisher MD CT ORDERABLES Final Result * PAP IMAGE-GUIDED W HPV+CT/NG+TRICH (05/06/2025 3:32 PM CDT) Case Report Gynecologic Cytology Report Case: [id number] Authorizing Provider: Gary Carballo DO Collected: 05/06/2025 03:32 PM Ordering Location: [address] Received: 05/07/2025 12:40 PM First Screen: [...] 11:10 AM CDT [facility] Interpretation SOFTWARE IMPLEMENTATION SPECIALIST Negative for intraepithelial lesion or malignancy. 05/08/2025 [...] with an additional manual rescreening by a cloud services architect and/or pathologist. 05/08/2025 11:10 AM CDT [facility] Embedded Images 11:10 AM CDT [facility] Pathology/Cytolo gy PART OF UTERINE CERVIX / Unknown 05/06/2025 3:32 PM CDT 05/07/2025 12:40 PM CDT Gary Carballo DO LAB - PATHOLOGY/CYTOLOGY ORDERA BLES Final Result [facility] [address] [place], [place] [id number] [place] [address] * HPV PANEL (05/06/2025 3:32 PM CDT) Pathologist [facility] High Risk HPV 16 NEGATIVE NEGATIVE 05/08/2025 5:32 AM CDT [facility] High Risk HPV 18 NEGATIVE NEGATIVE 05/08/2025 5:32 AM CDT [facility] High Risk HPV Other NEGATIVE NEGATIVE 05/08/2025 5:32 AM CDT [facility] Pathology/Cytolo gy PART OF UTERINE CERVIX / [...] [facility] [address] [place], [place] [address], [facility] [phone] * HEPATITIS C AB SCREEN RFLX NAAT QUANT (05/03/2025 4:28 PM CDT) Pathologist [facility] Hepatitis C Antibody Non-react nancy Non-reac tive 05/03/2025 6:39 PM CDT [facility] Comment:Hepatitis C Antibody screen indicates [...] LAB - CHEMISTRY ORD ERABLES Final Result [facility] [address] [place] [address], [facility] [phone] from Last 3 Months or Most Recently [...] ionNo Intubation, No Invasive Ventilation Care Teams Life Enrichment Specialist Relationship Specialty Start Date End Date Monster Garza MD [address] [address] PCP - General 12/30/20
--- OUTSIDE RECORDS SUMMARY | 2025-10-02 08:37 | XMS_ITS | Clinical Summary ---
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
--- OUTSIDE RECORDS SUMMARY | 2025-10-02 08:37 | XMS_ITS | Clinical Summary ---
Author Organization [facility] [address] [place] [address] Care Team Providers Care Literacy Coordinator Name Role Phone Monster Garza MD Primary [...] limited to bleeding, infection, nerve injury, stroke, IA, communicated the patient with full understanding. She wished to proceed Encounters Date Type Department Care Team Description 2025 3:38 PM SHOVEL OILER - 2025 11:59 PM SHOVEL OILER Hospital Encounter [address] [address] Discharge Disposition: Discharge to home or self care 07/19/2025 Telephone [facility] [address] [facility] [address] [place] [address] [place] [address] Gurwinder Centeno MD PhD 07/18/2025 Telephone [facility] [address] [facility] [address] [place] [address] [place] [address] Gurwinder Centeno MD PhD from Last 3 [...] Diagnosis Comments EGFR Routine 2025 1:39 PM SHOVEL OILER DIFFERENTIAL AUTO Routine 2025 1:3 9 PM SHOVEL OILER CBC WITH AUTO DIFFERENTIAL Routine 2025 1:39 PM SHOVEL OILER COMPREHENSIVE METABOLIC PANEL Routine 2025 1:39 PM SHOVEL OILER from Last 3 Months Results * (ABNORMAL) eGFR (2025 1:39 PM SHOVEL OILER) [facility] Signature eGFR 4(L) >=60 mL/min/1. 73 [...] last reviewed 2021. Blood 2025 1:39 PM SHOVEL OILER 2025 4:54 PM SHOVEL OILER us Caitie Srinivasan Castro DO LAB BLOOD ORDERABLES F inal Result [facility] [address] Department [place] [address] * (ABNORMAL) Differential, auto (2025 1:39 PM SHOVEL OILER) Neutrophil abs 5.75 1.50 - 6.50 K/cumm Imm gran abs 0.03 0.00 - 0.10 K/cumm [facility] Lymphocyte abs 2.12 0.80 - 3.30 K/cumm [facility] Monocyte abs 0.90(H) 0.20 - 0.80 K/cumm [facility] Eosinophil abs 0.55(H) 0.00 - 0.50 K/cumm [facility] Basophil abs 0.08 0.00 - 0.10 K/cumm [facility] Neutrophil pct 61.1 % [facility] Comment: Interpretive Data Percent cell count reference ranges are not reported, since discordance with absolute values may lead to misinterpretation of CBC data. Current Interpretive Data was last revised on 2018. Imm gran pct 0.3 % [facility] Comment: Interpretive Data Percent cell count reference ranges are not reported, since discordance with absolute values may lead to misinterpretation of CBC data. Current Interpretive Data was last revised on 2018. Lymphocyte pct 22.5 % [facility] Comment: Interpretive Data Percent cell count reference ranges are not reported, since discordance with absolute values may lead to misinterpretation of CBC data. Current Interpretive Data was last revised on 2018. Monocyte pct 9.5 % [facility] Comment: Interpretive Data Percent cell count reference ranges are not reported, since discordance with absolute values may lead to misinterpretation of CBC data. Current Interpretive Data was last revised on 2018. Eosinophil pct 5.8 % [facility] Comment: Interpretive Data Percent cell count reference ranges are not reported, since discordance with absolute values may lead to misinterpretation of CBC data. Current Interpretive Data was last revised on 2018. Basophil pct 0.8 % [facility] Comment: Interpretive Data Percent cell count reference ranges are not reported, since discordance with absolute values may lead to misinterpretation of CBC data. Current Interpretive Data was last revised on 2018. Blood 2025 1:39 PM SHOVEL OILER 2025 4:54 PM SHOVEL OILER us Caitie Castro DO LAB BLOOD ORDERABLES F inal Result [facility] [address] Department [place] [address] * (ABNORMAL) CBC with auto differential (2025 1:39 PM SHOVEL OILER) WBC 9.43 3.80 - 9.90 K/cumm Hgb 12.2 11.9 - 15.5 g/dL [facility] Hct 39.6 35.6 - 45.5 % [facility] Plt 369 150 - 400 K/cumm [facility] MPV 10.0 9.1 - 12.3 fL [facility] RBC 4.24 3.90 - 5.20 M/cumm [facility] MCV 93.4 81.3 - 96.4 fL [facility] MCH 28.8 27.1 - 33.3 pg [facility] MCHC 30.8(L) 32.3 - 35.7 g/dL [facility] RDW CV 15.5(H) 11.1 - 14.9 % [facility] RDW SD 52.5(H) 35.7 - 48.1 fL [facility] NRBC abs 0.00 0.00 - 0.01 K/cumm [facility] Blood 2025 1:39 PM SHOVEL OILER 2025 4:54 PM SHOVEL OILER us Caitie Castro DO LAB BLOOD ORDERABLES F inal Result [facility] [address] [address] Department [place] [address] * (ABNORMAL) Comprehensive metabolic panel (2025 1:39 PM SHOVEL OILER) Sodium 141 135 - 145 mmol/L Potassium, pl 5.2(H) 3.3 - 4.9 mmol/L [facility] Chloride 95(L) 97 - 110 mmol/L [facility] CO2 25 22 - 32 mmol/L [facility] Anion gap 21(H) 2 - 15 mmol/L [facility] BUN 63(H) 6 - 25 mg/dL [facility] Creatinine 8.93(H) 0.60 - 1.10 mg/dL [facility] Glucose 94 70 - 199 mg/dL [facility] Comment: Interpretive Data Fasting glucose >/= 126 [...] Units/L [facility] Blood 2025 1:39 PM SHOVEL OILER 2025 4:54 PM SHOVEL OILER us Caitie Srinivasan Castro DO LAB BLOOD ORDERABLES F inal Result [facility] [address] [address] Department [place] [address] from Last 3 Months Insurance MEDICARE Care Teams Literacy Coordinator Relationship Specialty Start Date End Date Monster Garza MD PCP - General Family Medicine 12/16/23
--- OUTSIDE RECORDS SUMMARY | 2025-10-02 08:38 | XMS_ITS ---
Author Organization [facility] Address [address] [place] [address] Care Team Providers Care Information Systems Auditor Name Role Phone Monster Garza MD Primary Care Provider + Active Problems Problem Noted Date Diagnosed Date Severe protein-calorie malnutrition 09/30/2025 Assessment & Plan (09/30/2025 5:55 PM SERVICE DISPATCHER): - Nutrition consulted and followed throughout admission Hx of major depression 09/20/2025 Assessment & Plan (09/30/2025 1:23 PM SERVICE DISPATCHER): -Continue home Effexor Assessment & Plan (09/29/2025 7:58 AM SERVICE DISPATCHER): -Continue home Effexor Assessment & Plan (09/28/2025 8:21 AM SERVICE DISPATCHER): -Continue home Effexor Assessment & Plan (09/27/2025 2:10 PM SERVICE DISPATCHER): -Continue home Effexor Assessment & Plan (09/26/2025 8:35 AM SERVICE DISPATCHER): -Continue home Effexor Assessment & Plan (09/25/2025 3:03 PM SERVICE DISPATCHER): -Continue home Effexor Assessment & Plan (09/24/2025 5:48 PM SERVICE DISPATCHER): -Continue home venlafaxine Assessment & Plan (09/23/2025 5:13 PM SERVICE DISPATCHER): -Continue home venlafaxine Assessment & Plan (09/22/2025 7:39 AM SERVICE DISPATCHER): -Continue home venlafaxine Assessment & Plan (09/21/2025 11:16 AM SERVICE DISPATCHER): -Continue home venlafaxine Assessment & Plan (09/20/2025 8:16 AM SERVICE DISPATCHER): -Continue home venlafaxine Ischemic stroke 09/19/2025 Assessment & Plan (09/30/2025 1:23 PM SERVICE DISPATCHER): -Initially admitted to stroke team found to have ischemic stroke, continue aspirin 81mg, Brilinta 90 mg started this admission, Lipitor increased from 40 to 80 mg -PT OT recommending SNF Assessment & Plan (09/29/2025 7:58 AM SERVICE DISPATCHER): -Initially admitted to stroke team found to have ischemic stroke, continue aspirin 81mg, Brilinta 90 mg started this admission, Lipitor increased from 40 to 80 mg -PT OT recommending SNF Assessment & Plan (09/28/2025 10:59 AM SERVICE DISPATCHER): -Initially admitted to stroke team found to have ischemic stroke, continue aspirin 81mg, Brilinta 90 mg started this admission, Lipitor increased from 40 to 80 mg -PT OT recommending SNF Assessment & Plan (09/27/2025 2:10 PM SERVICE DISPATCHER): - Initially admitted to stroke team found to have ischemic stroke, continue aspirin 81mg, Brilinta 90 mg started this admission, Lipitor increased from 40 to 80 mg -PT OT recommending SNF Assessment & Plan (09/26/2025 8:35 AM SERVICE DISPATCHER): - Initially admitted to stroke team found to have ischemic stroke, continue aspirin 81mg, Brilinta 90 mg started this admission, Lipitor increased from 40 to 80 mg -PT OT recommending SNF Assessment & Plan (09/25/2025 3:03 PM SERVICE DISPATCHER): - Initially admitted to stroke team found to have ischemic stroke, continue aspirin 81mg, Brilinta 90 mg started this admission, Lipitor increased from 40 to 80 mg -PT OT recommending SNF Assessment & Plan (09/24/2025 5:48 PM SERVICE DISPATCHER): -see above Assessment & Plan (09/23/2025 5:13 PM SERVICE DISPATCHER): -see above Assessment & Plan (09/22/2025 7:39 AM SERVICE DISPATCHER): -see above Assessment & Plan (09/21/2025 9:54 AM SERVICE DISPATCHER): -see above Assessment & Plan (09/20/2025 9:27 AM SERVICE DISPATCHER): Assessment & Plan (09/20/2025 8:16 AM SERVICE DISPATCHER): -see above Secondary hyperparathyroidism 08/07/2025 Assessment & Plan (09/30/2025 1:23 PM SERVICE DISPATCHER): -Nephrology following for maintenance dialysis Assessment & Plan (09/29/2025 7:58 AM SERVICE DISPATCHER): -Nephrology following for maintenance dialysis Assessment & Plan (09/28/2025 10:59 AM SERVICE DISPATCHER): -Nephrology following for maintenance dialysis Assessment & Plan (09/27/2025 2:10 PM SERVICE DISPATCHER): -Nephrology following for maintenance dialysis Assessment & Plan (09/26/2025 8:35 AM SERVICE DISPATCHER): -Nephrology following for maintenance dialysis Assessment & Plan (09/25/2025 3:03 PM SERVICE DISPATCHER): -Nephrology following for maintenance dialysis Assessment & Plan (09/24/2025 5:48 PM SERVICE DISPATCHER): ESRD on HD - hemodialysis catheter placement confirmed with CXR 09/20 - dialysis schedule MWF - last dialysis 09/21 Hyperparathyroidism - Vitamin D low (19.9) -DC'd vitamin D supplementation per nephrology due to hypercalcemia, nephrology recommending SestaMIBI scan -Started on send Salit 60 mg daily -Recommending ENT consult for possible 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 Assessment & Plan (09/23/2025 5:13 PM SERVICE DISPATCHER): ESRD on HD - hemodialysis catheter placement confirmed with CXR 09/20 - dialysis schedule MWF - last dialysis 09/21 Hyperparathyroidism - Vitamin D low (19.9) -DC'd vitamin D supplementation per nephrology due to hypercalcemia, nephrology recommending SestaMIBI scan -Started on send Salit 60 mg daily -Recommending ENT consult for possible 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 Assessment & Plan (09/22/2025 8:55 PM SERVICE DISPATCHER): ESRD on HD - hemodialysis catheter placement confirmed with CXR 09/20 - dialysis schedule MWF - last dialysis 09/21 Hyperparathyroidism - Vitamin D low (19.9) -DC'd vitamin D supplementation per nephrology due to hypercalcemia, nephrology recommending SestaMIBI scan -Started on send Salit 60 mg daily -Recommending ENT consult for possible 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 Assessment & Plan (09/21/2025 9:54 AM SERVICE DISPATCHER): ESRD on HD - hemodialysis catheter placement confirmed with CXR 09/20 - dialysis schedule MWF - per nephrology no dialysis F 09/20 Hyperparathyroidism - Nephrology recommending PTHrp, Vitamin D, Ionized Calcium (ordered) - Vitamin D low (19.9) - supplement D3 5000 units Assessment & Plan (09/20/2025 10:00 AM SERVICE DISPATCHER): -HD per nephrology Cerebrovascular accident (CV A) [...] in right frontoparietal lobes (R MCA). Multiple taala-mf-wjmfkuhx small infarcts in left centrum semiovale and shin radiata (embolic pattern). CTA Head/Neck: Multifocal, severe intracranial arterial stenoses involving bilateral anterior, middle, posterior cerebral arteries and vertebrobasilar system. Concern for STRETCHING MACHINE TENDER FRAME vasculitis--LP and CSF studies not consistent; Rheumatology [...] in right frontoparietal lobes (R MCA). Multiple gztug-mr-ypwdwysv small infarcts in left centrum semiovale and shin radiata (embolic pattern). CTA Head/Neck: Multifocal, severe intracranial arterial stenoses involving bilateral anterior, middle, posterior cerebral arteries and vertebrobasilar system. Concern for STRETCHING MACHINE TENDER FRAME vasculitis--LP and CSF studies not consistent; Rheumatology [...] in right frontoparietal lobes (R MCA). Multiple lccvb-bp-kiotsukc small infarcts in left centrum semiovale and shin radiata (embolic pattern). CTA Head/Neck: Multifocal, severe intracranial arterial stenoses involving bilateral anterior, middle, posterior cerebral arteries and vertebrobasilar system. Concern for STRETCHING MACHINE TENDER FRAME vasculitis--LP and CSF studies not consistent; Rheumatology [...] in right frontoparietal lobes (R MCA). Multiple xxuwb-ut-vougkubh small infarcts in left centrum semiovale and shin radiata (embolic pattern). CTA Head/Neck: Multifocal, severe intracranial arterial stenoses involving bilateral anterior, middle, posterior cerebral arteries and vertebrobasilar system. Concern for STRETCHING MACHINE TENDER FRAME vasculitis--LP and CSF studies not consistent; Rheumatology [...] restricted diffusion concerning for acute infarction. -Multiple ixoea-vh-xifosgff small infarcts scattered in the left centrum [...] entire basilar artery. There was concern for STRETCHING MACHINE TENDER FRAME vasculitis, however LP CSF studies are not [...] restricted diffusion concerning for acute infarction. -Multiple qmhgo-lb-jpvfqiks small infarcts scattered in the left centrum [...] entire basilar artery. There was concern for STRETCHING MACHINE TENDER FRAME vasculitis, however LP CSF studies. Rheumatology evaluated [...] in right frontoparietal lobes (R MCA). Multiple axdzw-qv-vvabdfmt small infarcts in left centrum semiovale and shin radiata (embolic pattern). CTA Head/Neck: Multifocal, severe intracranial arterial stenoses involving bilateral anterior, middle, posterior cerebral arteries and vertebrobasilar system. Concern for STRETCHING MACHINE TENDER FRAME vasculitis--LP and CSF studies not consistent; Rheumatology [...] in right frontoparietal lobes (R MCA). Multiple krvoe-iz-njbpbnjv small infarcts in left centrum semiovale and shin radiata (embolic pattern). CTA Head/Neck: Multifocal, severe intracranial arterial stenoses involving bilateral anterior, middle, posterior cerebral arteries and vertebrobasilar system. Concern for STRETCHING MACHINE TENDER FRAME vasculitis--LP and CSF studies not consistent; Rheumatology [...] in right frontoparietal lobes (R MCA). Multiple swhum-nj-gdtzsupa small infarcts in left centrum semiovale and shin radiata (embolic pattern). CTA Head/Neck: Multifocal, severe intracranial arterial stenoses involving bilateral anterior, middle, posterior cerebral arteries and vertebrobasilar system. Concern for STRETCHING MACHINE TENDER FRAME vasculitis--LP and CSF studies not consistent; Rheumatology [...] in right frontoparietal lobes (R MCA). Multiple wtyah-km-avhcnytj small infarcts in left centrum semiovale and shin radiata (embolic pattern). CTA Head/Neck: Multifocal, severe intracranial arterial stenoses involving bilateral anterior, middle, posterior cerebral arteries and vertebrobasilar system. Concern for STRETCHING MACHINE TENDER FRAME vasculitis--LP and CSF studies not consistent; Rheumatology [...] restricted diffusion concerning for acute infarction. -Multiple yzeuh-ql-eyuxgatb small infarcts scattered in the left centrum [...] entire basilar artery. There was concern for STRETCHING MACHINE TENDER FRAME vasculitis, however LP CSF studies are not [...] restricted diffusion concerning for acute infarction. -Multiple tsehw-jq-lozbegsw small infarcts scattered in the left centrum [...] entire basilar artery. There was concern for STRETCHING MACHINE TENDER FRAME vasculitis, however LP CSF studies. Rheumatology evaluated [...] in right frontoparietal lobes (R MCA). Multiple zjxie-mz-twqijbhr small infarcts in left centrum semiovale and shin radiata (embolic pattern). CTA Head/Neck: Multifocal, severe intracranial arterial stenoses involving bilateral anterior, middle, posterior cerebral arteries and vertebrobasilar system. Concern for STRETCHING MACHINE TENDER FRAME vasculitis--LP and CSF studies not consistent; Rheumatology [...] in right frontoparietal lobes (R MCA). Multiple adxyz-ij-cqpoiotu small infarcts in left centrum semiovale and shin radiata (embolic pattern). CTA Head/Neck: Multifocal, severe intracranial arterial stenoses involving bilateral anterior, middle, posterior cerebral arteries and vertebrobasilar system. Concern for STRETCHING MACHINE TENDER FRAME vasculitis--LP and CSF studies not consistent; Rheumatology [...] in right frontoparietal lobes (R MCA). Multiple gagwi-xt-wcskmcow small infarcts in left centrum semiovale and shin radiata (embolic pattern). CTA Head/Neck: Multifocal, severe intracranial arterial stenoses involving bilateral anterior, middle, posterior cerebral arteries and vertebrobasilar system. Concern for STRETCHING MACHINE TENDER FRAME vasculitis--LP and CSF studies not consistent; Rheumatology [...] in right frontoparietal lobes (R MCA). Multiple awxaa-xr-qbehuhcx small infarcts in left centrum semiovale and shin radiata (embolic pattern). CTA Head/Neck: Multifocal, severe intracranial arterial stenoses involving bilateral anterior, middle, posterior cerebral arteries and vertebrobasilar system. Concern for STRETCHING MACHINE TENDER FRAME vasculitis--LP and CSF studies not consistent; Rheumatology [...] restricted diffusion concerning for acute infarction. -Multiple qufad-lo-ycpewjjb small infarcts scattered in the left centrum [...] entire basilar artery. There was concern for STRETCHING MACHINE TENDER FRAME vasculitis, however LP CSF studies are not [...] restricted diffusion concerning for acute infarction. -Multiple nuspe-kl-kqpmutoq small infarcts scattered in the left centrum [...] entire basilar artery. There was concern for STRETCHING MACHINE TENDER FRAME vasculitis, however LP CSF studies. Rheumatology evaluated [...] -Continue home cinacalcet -Start on vitamin D 11156 units q7 days for 6 weeks. -Sestamibi [...] -Continue home cinacalcet -Start on vitamin D 25389 units q7 days for 6 weeks. -Sestamibi [...] -Continue home cinacalcet -Start on vitamin D 84769 units q7 days for 6 weeks. -Sestamibi [...] -Continue home cinacalcet -Start on vitamin D 40932 units q7 days for 6 weeks. -Sestamibi [...] -Continue home cinacalcet -Start on vitamin D 53965 units q7 days for 6 weeks. -Sestamibi [...] -Continue home cinacalcet -Start on vitamin D 43482 units q7 days for 6 weeks. -Sestamibi [...] in right frontoparietal lobes (R MCA). Multiple ajudx-ia-svykzldf small infarcts in left centrum semiovale and shin radiata (embolic pattern). CTA Head/Neck: Multifocal, severe intracranial arterial stenoses involving bilateral anterior, middle, posterior cerebral arteries and vertebrobasilar system. Concern for STRETCHING MACHINE TENDER FRAME vasculitis--LP and CSF studies not consistent; Rheumatology [...] in right frontoparietal lobes (R MCA). Multiple bpybv-yl-xahwyuhw small infarcts in left centrum semiovale and shin radiata (embolic pattern). CTA Head/Neck: Multifocal, severe intracranial arterial stenoses involving bilateral anterior, middle, posterior cerebral arteries and vertebrobasilar system. Concern for STRETCHING MACHINE TENDER FRAME vasculitis--LP and CSF studies not consistent; Rheumatology [...] in right frontoparietal lobes (R MCA). Multiple nipzk-pe-lwdfuwqc small infarcts in left centrum semiovale and shin radiata (embolic pattern). CTA Head/Neck: Multifocal, severe intracranial arterial stenoses involving bilateral anterior, middle, posterior cerebral arteries and vertebrobasilar system. Concern for STRETCHING MACHINE TENDER FRAME vasculitis--LP and CSF studies not consistent; Rheumatology [...] in right frontoparietal lobes (R MCA). Multiple xrpif-rv-ukdstwub small infarcts in left centrum semiovale and shin radiata (embolic pattern). CTA Head/Neck: Multifocal, severe intracranial arterial stenoses involving bilateral anterior, middle, posterior cerebral arteries and vertebrobasilar system. Concern for STRETCHING MACHINE TENDER FRAME vasculitis--LP and CSF studies not consistent; Rheumatology [...] restricted diffusion concerning for acute infarction. -Multiple ylnvh-fk-jmosrwyk small infarcts scattered in the left centrum [...] entire basilar artery. There was concern for STRETCHING MACHINE TENDER FRAME vasculitis, however LP CSF studies are not [...] restricted diffusion concerning for acute infarction. -Multiple xzmao-ba-xypbvhvs small infarcts scattered in the left centrum [...] entire basilar artery. There was concern for STRETCHING MACHINE TENDER FRAME vasculitis, however LP CSF studies. Rheumatology evaluated [...] restricted diffusion concerning for acute infarction. -Multiple ubuie-gr-vziyvrgb small infarcts scattered in the left centrum [...] and entire basilar artery. 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 Additional Studies / Interventions: TTE: EF 55%, no intracardiac shunt. LEX negative; ANCA <1:20, PR3 = 0, MPO = 0. LP performed by Neuroradiology on 05/07; CSF studies pending. NSGY consulted for possible brain mass--no discrete lesion on MRI; no indication for biopsy. Records requested from [facility]; no relevant data received. Plan: [...] the entire basilar artery. 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 Plan: -Obtained records from [facility], no relevant materials were provided [...] the entire basilar artery. 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 Plan: -Obtained records from [facility], no relevant materials were provided [...] the entire basilar artery. 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 Plan: -Obtained records from [facility], no relevant materials were provided [...] the entire basilar artery. 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 Plan: -Obtained records from [facility], no relevant materials were provided unfortunately. -Will have [facility] discussion with patient and POA [...] the entire basilar artery. 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 Plan: -Obtained records from [facility], no relevant materials were provided [...] Plan: -Will attempt to obtain records from [facility] to further clarify patient's breast cancer [...] in right frontoparietal lobes (R MCA). Multiple kbwba-wy-eyiknfyg small infarcts in left centrum semiovale and shin radiata (embolic pattern). CTA Head/Neck: Multifocal, severe intracranial arterial stenoses involving bilateral anterior, middle, posterior cerebral arteries and vertebrobasilar system. Concern for STRETCHING MACHINE TENDER FRAME vasculitis--LP and CSF studies not consistent; Rheumatology [...] in right frontoparietal lobes (R MCA). Multiple wxrlg-af-zllrwkfg small infarcts in left centrum semiovale and shin radiata (embolic pattern). CTA Head/Neck: Multifocal, severe intracranial arterial stenoses involving bilateral anterior, middle, posterior cerebral arteries and vertebrobasilar system. Concern for STRETCHING MACHINE TENDER FRAME vasculitis--LP and CSF studies not consistent; Rheumatology [...] in right frontoparietal lobes (R MCA). Multiple yfvda-mq-hqrwfewk small infarcts in left centrum semiovale and shin radiata (embolic pattern). CTA Head/Neck: Multifocal, severe intracranial arterial stenoses involving bilateral anterior, middle, posterior cerebral arteries and vertebrobasilar system. Concern for STRETCHING MACHINE TENDER FRAME vasculitis--LP and CSF studies not consistent; Rheumatology [...] in right frontoparietal lobes (R MCA). Multiple afeeg-yo-yylyddmt small infarcts in left centrum semiovale and shin radiata (embolic pattern). CTA Head/Neck: Multifocal, severe intracranial arterial stenoses involving bilateral anterior, middle, posterior cerebral arteries and vertebrobasilar system. Concern for STRETCHING MACHINE TENDER FRAME vasculitis--LP and CSF studies not consistent; Rheumatology [...] restricted diffusion concerning for acute infarction. -Multiple kdnue-xf-tdyebtkf small infarcts scattered in the left centrum [...] entire basilar artery. There was concern for STRETCHING MACHINE TENDER FRAME vasculitis, however LP CSF studies are not [...] restricted diffusion concerning for acute infarction. -Multiple njbtm-np-ulanvuic small infarcts scattered in the left centrum [...] entire basilar artery. There was concern for STRETCHING MACHINE TENDER FRAME vasculitis, however LP CSF studies. Rheumatology evaluated [...] restricted diffusion concerning for acute infarction. -Multiple hsdpu-ew-ckdwfcwm small infarcts scattered in the left centrum [...] and entire basilar artery. 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 Additional Studies / Interventions: TTE: EF 55%, no intracardiac shunt. LEX negative; ANCA <1:20, PR3 = 0, MPO = 0. LP performed by Neuroradiology on 05/07; CSF studies pending. NSGY consulted for possible brain mass--no discrete lesion on MRI; no indication for biopsy. Records requested from [facility]; no relevant data received. Plan: [...] the entire basilar artery. 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 Plan: -Obtained records from [facility], no relevant materials were provided [...] the entire basilar artery. 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 Plan: -Obtained records from [facility], no relevant materials were provided [...] the entire basilar artery. 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 Plan: -Obtained records from [facility], no relevant materials were provided [...] the entire basilar artery. 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 Plan: -Obtained records from [facility], no relevant materials were provided [...] the entire basilar artery. 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 Plan: -Obtained records from [facility], no relevant materials were provided unfortunately. -Will have [facility] discussion with patient and POA [...] -Continue home cinacalcet -Start on vitamin D 80734 units q7 days for 6 weeks. Assessment [...] ordered Will attempt to obtain records from [facility] to further clarify patient's breast cancer [...] 04/29/2025 Assessment & Plan (09/30/2025 1:23 PM SERVICE DISPATCHER): -Initially admitted to stroke team found to have ischemic stroke, continue aspirin 81mg, Brilinta 90 mg started this admission, Lipitor increased from 40 to 80 mg -PT OT recommending SNF Assessment & Plan (09/29/2025 7:58 AM SERVICE DISPATCHER): -Initially admitted to stroke team found to have ischemic stroke, continue aspirin 81mg, Brilinta 90 mg started this admission, Lipitor increased from 40 to 80 mg -PT OT recommending SNF Assessment & Plan (09/28/2025 10:59 AM SERVICE DISPATCHER): -Initially admitted to stroke team found to have ischemic stroke, continue aspirin 81mg, Brilinta 90 mg started this admission, Lipitor increased from 40 to 80 mg -PT OT recommending SNF Assessment & Plan (09/27/2025 2:10 PM SERVICE DISPATCHER): - Initially admitted to stroke team found to have ischemic stroke, continue aspirin 81mg, Brilinta 90 mg started this admission, Lipitor increased from 40 to 80 mg -PT OT recommending SNF Assessment & Plan (09/26/2025 8:35 AM SERVICE DISPATCHER): - Initially admitted to stroke team found to have ischemic stroke, continue aspirin 81mg, Brilinta 90 mg started this admission, Lipitor increased from 40 to 80 mg -PT OT recommending SNF Assessment & Plan (09/25/2025 3:03 PM SERVICE DISPATCHER): - Initially admitted to stroke team found to have ischemic stroke, continue aspirin 81mg, Brilinta 90 mg started this admission, Lipitor increased from 40 to 80 mg -PT OT recommending SNF Assessment & Plan (09/24/2025 5:48 PM SERVICE DISPATCHER): -see above Assessment & Plan (09/23/2025 5:13 PM SERVICE DISPATCHER): -see above Assessment & Plan (09/22/2025 7:39 AM SERVICE DISPATCHER): -see above Assessment & Plan (09/21/2025 9:54 AM SERVICE DISPATCHER): -see above Assessment & Plan (09/20/2025 9:27 AM SERVICE DISPATCHER): Assessment & Plan (09/20/2025 8:16 AM SERVICE DISPATCHER): -see above Assessment & Plan (05/07/2025 9:11 PM CDT): Encephalopathy / Stroke Workup to Date: Infectious/Metabolic: HIV negative, RPR negative, B12 and TSH within normal limits. MRI Brain (04/28/25): -Subacute infarction in the right frontoparietal lobes (R MCA territory) with some restricted diffusion concerning for acute infarction. -Multiple mzboj-hy-cjvspndx small infarcts scattered in the left centrum [...] and entire basilar artery. 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 Additional Studies / Interventions: TTE: EF 55%, no intracardiac shunt. LEX negative; ANCA <1:20, PR3 = 0, MPO = 0. LP performed by Neuroradiology on 05/07; CSF studies pending. NSGY consulted for possible brain mass--no discrete lesion on MRI; no indication for biopsy. Records requested from [facility]; no relevant data received. Plan: [...] the entire basilar artery. 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 Plan: -Obtained records from [facility], no relevant materials were provided [...] the entire basilar artery. 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 Plan: -Obtained records from [facility], no relevant materials were provided [...] the entire basilar artery. 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 Plan: -Obtained records from [facility], no relevant materials were provided [...] the entire basilar artery. 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 Plan: -Obtained records from [facility], no relevant materials were provided [...] the entire basilar artery. 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 Plan: -Obtained records from [facility], no relevant materials were provided [...] -Continue home cinacalcet -Start on vitamin D 51175 units q7 days for 6 weeks. Assessment [...] restricted diffusion concerning for acute infarction. -Multiple [id number] small infarcts scattered in the left centrum [...] and entire basilar artery. 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 Additional Studies / Interventions: TTE: EF 55%, no intracardiac shunt. LEX negative; ANCA <1:20, PR3 = 0, MPO = 0. LP performed by Neuroradiology on 05/07; CSF studies pending. NSGY consulted for possible brain mass--no discrete lesion on MRI; no indication for biopsy. Records requested from [facility]; no relevant data received. Plan: [...] the entire basilar artery. 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 Plan: -Obtained records from [facility], no relevant materials were provided [...] the entire basilar artery. 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 Plan: -Obtained records from [facility], no relevant materials were provided [...] the entire basilar artery. 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 Plan: -Obtained records from [facility], no relevant materials were provided [...] the entire basilar artery. 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 Plan: -Obtained records from [facility], no relevant materials were provided unfortunately. -Will have [facility] discussion with patient and POA [...] the entire basilar artery. 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 Plan: -Obtained records from [facility], no relevant materials were provided unfortunately. -Will have [facility] discussion with patient and POA [...] -Continue home cinacalcet -Start on vitamin D 91050 units q7 days for 6 weeks. Assessment [...] -Continue home cinacalcet -Start on vitamin D 18091 units q7 days for 6 weeks. -Sestamibi [...] -Continue home cinacalcet -Start on vitamin D 84154 units q7 days for 6 weeks. -Sestamibi [...] -Continue home cinacalcet -Start on vitamin D 06207 units q7 days for 6 weeks. -Sestamibi [...] -Continue home cinacalcet -Start on vitamin D 70513 units q7 days for 6 weeks. -Sestamibi [...] -Continue home cinacalcet -Start on vitamin D 00964 units q7 days for 6 weeks. -Sestamibi [...] -Continue home cinacalcet -Start on vitamin D 33620 units q7 days for 6 weeks. -Sestamibi [...] -Continue home cinacalcet -Start on vitamin D 96896 units q7 days for 6 weeks. Assessment [...] -Continue home cinacalcet -Start on vitamin D 89267 units q7 days for 6 weeks. -Sestamibi [...] -Continue home cinacalcet -Start on vitamin D 05413 units q7 days for 6 weeks. -Sestamibi [...] -Continue home cinacalcet -Start on vitamin D 19144 units q7 days for 6 weeks. -Sestamibi [...] -Continue home cinacalcet -Start on vitamin D 02611 units q7 days for 6 weeks. -Sestamibi [...] -Continue home cinacalcet -Start on vitamin D 62153 units q7 days for 6 weeks. -Sestamibi [...] -Continue home cinacalcet -Start on vitamin D 80388 units q7 days for 6 weeks. -Sestamibi [...] -Continue home cinacalcet -Start on vitamin D 48870 units q7 days for 6 weeks. Assessment [...] 04/29/2025 Assessment & Plan (09/30/2025 1:23 PM SERVICE DISPATCHER): -Nephrology following for maintenance dialysis Assessment & Plan (09/29/2025 7:58 AM SERVICE DISPATCHER): -Nephrology following for maintenance dialysis Assessment & Plan (09/28/2025 10:59 AM SERVICE DISPATCHER): -Nephrology following for maintenance dialysis Assessment & Plan (09/27/2025 2:10 PM SERVICE DISPATCHER): -Nephrology following for maintenance dialysis Assessment & Plan (09/26/2025 8:35 AM SERVICE DISPATCHER): -Nephrology following for maintenance dialysis Assessment & Plan (09/25/2025 3:03 PM SERVICE DISPATCHER): -Nephrology following for maintenance dialysis Assessment & Plan (09/24/2025 5:48 PM SERVICE DISPATCHER): ESRD on HD - hemodialysis catheter placement confirmed with CXR 09/20 - dialysis schedule MWF - last dialysis 09/21 Hyperparathyroidism - Vitamin D low (19.9) -DC'd vitamin D supplementation per nephrology due to hypercalcemia, nephrology recommending SestaMIBI scan -Started on send Salit 60 mg daily -Recommending ENT consult for possible 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 Assessment & Plan (09/23/2025 5:13 PM SERVICE DISPATCHER): ESRD on HD - hemodialysis catheter placement confirmed with CXR 09/20 - dialysis schedule MWF - last dialysis 09/21 Hyperparathyroidism - Vitamin D low (19.9) -DC'd vitamin D supplementation per nephrology due to hypercalcemia, nephrology recommending SestaMIBI scan -Started on send Salit 60 mg daily -Recommending ENT consult for possible 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 Assessment & Plan (09/22/2025 8:55 PM SERVICE DISPATCHER): ESRD on HD - hemodialysis catheter placement confirmed with CXR 09/20 - dialysis schedule MWF - last dialysis 09/21 Hyperparathyroidism - Vitamin D low (19.9) -DC'd vitamin D supplementation per nephrology due to hypercalcemia, nephrology recommending SestaMIBI scan -Started on send Salit 60 mg daily -Recommending ENT consult for possible 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 Assessment & Plan (09/21/2025 9:54 AM SERVICE DISPATCHER): ESRD on HD - hemodialysis catheter placement confirmed with CXR 09/20 - dialysis schedule MWF - per nephrology no dialysis F 09/20 Hyperparathyroidism - Nephrology recommending PTHrp, Vitamin D, Ionized Calcium (ordered) - Vitamin D low (19.9) - supplement D3 5000 units Assessment & Plan (09/20/2025 9:27 AM SERVICE DISPATCHER): Assessment & Plan (09/20/2025 10:00 AM SERVICE DISPATCHER): -HD per nephrology Assessment & Plan (05/13/2025 [...] Assessment & Plan (05/03/2025 11:14 AM CDT): [facility] Quick Recap - Optional: Managed [...] Assessment & Plan (05/02/2025 1:40 PM CDT): [facility] Quick Recap - Optional: Managed by nephrology -Consulted nephro to resume HD MWF (last HD session Thursday 04/26 per rehab facility) >No urgent HD needs at this time, plan on regular MWF time -Hold home sodium bicarb 1300 mg BID given mild alkalosis that has developed -Continue home cinacalcet 30 mg daily -CTM daily RFP -Access: [facility] tunneled dialysis line Assessment & Plan (05/01/2025 2:51 PM CDT): [facility] Quick Recap - Optional: Managed [...] Assessment & Plan (04/30/2025 11:34 AM CDT): [facility] Quick Recap - Optional: Managed [...] Assessment & Plan (04/29/2025 3:05 PM CDT): [facility] Quick Recap - Optional: Managed [...] Assessment & Plan (04/29/2025 2:52 PM CDT): [facility] Quick Recap - Optional: Managed by nephrology -Consulted nephro to resume HD MWF (last HD session Thursday 04/26 per rehab facility) >No urgent HD needs at this time -Hold home sodium bicarb 1300 mg BID given mild alkalosis that has developed -Continue home cinacalcet 30 mg daily -CTM daily RFP Primary hypertension 04/29/2025 Assessment & Plan (09/30/2025 1:23 PM SERVICE DISPATCHER): -Continue Coreg 25 mg twice daily Assessment & Plan (09/29/2025 7:58 AM SERVICE DISPATCHER): -Continue Coreg 25 mg twice daily Assessment & Plan (09/28/2025 10:59 AM SERVICE DISPATCHER): -Continue Coreg 25 mg twice daily Assessment & Plan (09/27/2025 2:10 PM SERVICE DISPATCHER): - Continue Coreg 25 mg twice daily Assessment & Plan (09/26/2025 8:35 AM SERVICE DISPATCHER): - Continue Coreg 25 mg twice daily Assessment & Plan (09/25/2025 3:03 PM SERVICE DISPATCHER): - Continue Coreg 25 mg twice daily Assessment & Plan (09/24/2025 5:48 PM SERVICE DISPATCHER): -see above Assessment & Plan (09/23/2025 5:13 PM SERVICE DISPATCHER): -see above Assessment & Plan (09/22/2025 7:39 AM SERVICE DISPATCHER): -see above Assessment & Plan (09/21/2025 9:54 AM SERVICE DISPATCHER): -see above Assessment & Plan (09/20/2025 9:27 AM SERVICE DISPATCHER): Assessment & Plan (09/20/2025 8:16 AM SERVICE DISPATCHER): -see above Assessment & Plan (05/13/2025 9:27 [...] 04/29/2025 Assessment & Plan (09/30/2025 1:23 PM SERVICE DISPATCHER): -A1c 4.5 -Discontinue Accu-Cheks and sliding scale insulin, will monitor glucose on daily labs Assessment & Plan (09/29/2025 7:58 AM SERVICE DISPATCHER): -A1c 4.5 -Discontinue Accu-Cheks and sliding scale insulin, will monitor glucose on daily labs Assessment & Plan (09/28/2025 8:21 AM SERVICE DISPATCHER): -A1c 4.5 -Discontinue Accu-Cheks and sliding scale insulin, will monitor glucose on daily labs Assessment & Plan (09/27/2025 2:10 PM SERVICE DISPATCHER): -A1c 4.5 -Discontinue Accu-Cheks and sliding scale insulin, will monitor glucose on daily labs Assessment & Plan (09/26/2025 8:35 AM SERVICE DISPATCHER): -A1c 4.5 -Discontinue Accu-Cheks and sliding scale insulin, will monitor glucose on daily labs Assessment & Plan (09/25/2025 3:03 PM SERVICE DISPATCHER): -A1c 4.5 -Discontinue Accu-Cheks and sliding scale insulin, will monitor glucose on daily labs Assessment & Plan (09/24/2025 5:48 PM SERVICE DISPATCHER): On SSI Assessment & Plan (09/23/2025 5:13 PM SERVICE DISPATCHER): On SSI Assessment & Plan (09/22/2025 7:39 AM SERVICE DISPATCHER): On SSI Assessment & Plan (09/21/2025 9:54 AM SERVICE DISPATCHER): On SSI Assessment & Plan (09/20/2025 9:27 AM SERVICE DISPATCHER): Assessment & Plan (09/20/2025 8:16 AM SERVICE DISPATCHER): On SSI Assessment & Plan (05/13/2025 9:27 [...]
--- NOTE | 2025-10-02 08:41 | WPCEDHO ---
ED Hand Off Checklist All vitals saved: yes IV Site documented: yes All med administrations documented: yes Triage Note Triage Note Pt to ED via [facility] 10/01/25 18:33 from [facility] with c/o altered mental statues. Pt returned from Dialysis today and staff said that pt was out of it , pts baseline is A/oX1, presenting to A/Ox1 a this time. BS from EMS was 180. Pt had recent strokes within the past month while on Plavix & ASA, just returned to [facility] yesterday from [facility] and then went to [facility] today, and returned where staff said she was altered. Pt takes Brilinta as blood thinner. Allergies lactose Adverse Reaction (Mild, Verified 10/01/25 18:33) Gastrointestinal Upset Family History (Last Reviewed 04/27/25 @ 21:48 by See Verde, COPIER OPERATOR) Mother Family history of lung cancer Hypertension Grandparent Cerebrovascular accident Diabetes mellitus Hypertension Son Family history of cardiovascular disease Heart disease Hypertension Father Unknown family medical history Administered/Completed Medications Discontinued Medications Sodium Chloride (Normal Saline Iv) 1,000 mls @ 999 mls/hr IV CONT .Q1H1M STA Stop: 10/02/25 00:01 Last Infusion: 10/02/25 02:33 Dose: Infused Documented By: Admin: 10/02/25 00:00 Dose: 999 mls/hr Documented By: KATHLEEN Piperacillin Sod/Tazobactam (Sod 3.375 gm/ Sodium Chloride) 50 mls @ 100 mls/hr IVPB ONCE STA Stop: 10/02/25 02:55 Last Infusion: 10/02/25 03:03 Dose: Infused Documented By: Admin: 10/02/25 02:31 Dose: 100 mls/hr Documented By: KATHLEEN Piperacillin Sod/Tazobactam (Sod 3.375 gm/ Sodium Chloride) 50 mls @ 100 mls/hr IVPB Q6HR [facility] Last Admin: 10/02/25 08:35 Dose: Not Given Documented By: CRISTINA Non-Admin Reason: Order Discontinued Sodium Chloride (Normal Saline Iv) 500 mls @ 999 mls/hr IV CONT .Q31M STA Stop: 10/02/25 07:54 Last Admin: 10/02/25 07:45 Dose: 999 mls/hr Documented By: CRISTINA Carson 10/02/25 07:45 (created 10/02/25 08:40) Nurse Note by Verona Ward EDP gave verbal order to run the normal saline at 250 mL/ hour for the 500 mL. Initialized on 10/02/25 08:40 - END OF NOTE 10/02/25 07:35 Nurse Note by Verona Ward Called Dr El at 0731 and was informed he is not net front end developer at this time. Initialized on 10/02/25 07:35 - END OF NOTE 10/02/25 07:33 Nurse Note by Verona Ward Called Dr. De La Paz at 0727 to report a low blood pressure. Dr De La Paz instructed to me to call Dr. El. Initialized on 10/02/25 07:33 - END OF NOTE 10/02/25 07:24 (created 10/02/25 07:46) Nurse Note by Verona Ward EDP made aware of patients blood pressure of 87/63, see MAR for orders. Initialized on 10/02/25 07:46 - END OF NOTE 10/02/25 07:14 Nurse Note by Verona Ward Took report on patient at [id number] Initialized on 10/02/25 07:14 - END OF NOTE 10/02/25 01:50 Nurse Note by Meseret Guadalupe This RN spoke with Audrey valencia [facility] and updated about pts POC and status Initialized on 10/02/25 01:50 - END OF NOTE Interventions/Assessments IV / Saline Lock, Insert Start: 10/01/25 18:53 Freq: STAT Status: Active Protocol: Document 10/02/25 01:03 SAK (Rec: 10/02/25 01:03 SAK [id number]) IV Assessment Peripheral Access Left Antecubital IV Catheter Access Initiated IV Insertion Date 10/02/25 IV Insertion Time 01:03 Catheter Gauge 20 IV Insertion 1 Attempts Ultrasound Used for No Placement IV Site Assessment WNL IV Care and WNL Maintenance PA: Cardiovascular Assessment Start: 10/01/25 18:16 Freq: Status: Active Protocol: Document 10/01/25 19:54 TLB (Rec: 10/01/25 21:05 TLB [id number]) Cardiovascular Assessment Cardiovascular None Symptoms Skin Description Warm Jugular Vein None Distention PA: Neurological Assessment Start: 10/01/25 18:16 Freq: Status: Active Protocol: Document 10/01/25 19:54 TLB (Rec: 10/01/25 21:05 TLB [id number]) Neurological Assessment Level of Awake Consciousness Orientation Oriented to Person Ability to Maintain Impaired Balance PA: Respiratory Assessment Start: 10/01/25 18:16 Freq: Status: Active Protocol: Document 10/01/25 20:00 TLB (Rec: 10/01/25 22:37 TLB [id number]) Respiratory Assessment Symptoms None Effort Normal Pattern Regular Depth Normal Chest Expansion Symmetrical Adult Capillary Normal/Less than 2 Seconds Refill Last Vital Signs Temperature 98.4 F 10/02/25 08:31 Pulse Rate 104 H 10/02/25 08:31 Respiratory Rate 15 10/02/25 08:31 Pulse Oximetry 100 10/02/25 08:31 Blood Pressure 107/67 10/02/25 08:31 Blood Pressure Mean 77 10/02/25 08:31 Blood Pressure Position Sitting 10/01/25 18:33 Oxygen Delivery Room Air 10/01/25 18:33 Weight 73.5 kg 10/01/25 18:33 Last Result - Abnormals Only WBC 17.4 K/mm3 (4.5-10.0) H 10/01/25 22: RDW 15.1 % (11.5-14.5) H 10/01/25 22: MPV 11.6 fl (7.4-10.4) H 10/01/25 22: Neut % (Auto) 77.6 % (45.5-73.1) H 10/01/25 22: Lymph % (Auto) 10.2 % (18.3-44.2) L 10/01/25 22: [place] % (Auto) 11.4 % (2.6-8.5) H 10/01/25 22:26 [place] # (Auto) 2.0 K/mm3 (0.1-0.6) H 10/01/25 22:26 Abs Immat Gran (auto) 0.07 K/mm3 (0.00-0.031) H 10/01/25 22:26 Absolute Neuts (auto) 13.5 K/mm3 (1.3-6.7) H 10/01/25 22:26 D-Dimer 3.30 ug/mL (<0.48) H 10/01/25 22:56 Sodium 132 mmol/L (137-145) L 10/01/25 22:26 Chloride 93 mmol/L (98-107) L 10/01/25 22:26 Anion Gap 15 mmol/L (4-12) H 10/01/25 22:26 BUN 26 mg/dL (7-17) H 10/01/25 22:26 Creatinine 5.87 mg/dL (0.7-1.0) H 10/01/25 22:26 Estimated GFR 7 (59-) L 10/01/25 22:26 Glucose 145 mg/dL (65-110) H 10/01/25 22:26 POC Capillary Glucose 219 mg/dl (65-105) H 10/01/25 18:32 AST 37 U/L (14-36) H 10/01/25 22:26 Alkaline Phosphatase 163 U/L (38-126) H 10/01/25 22:26 C-Reactive Protein 6.9 mg/dL (<1.0) H 10/01/25 22:26 Total Protein 9.2 g/dL (6.3-8.2) H 10/01/25 22:26
--- NOTE | 2025-10-02 11:42 | PC.NURSE ---
This patient, Gena Pierre, was admitted to [address] [place] [address] Room 305-02 at 0930. Patient/family oriented to hospital policies and general routines including ID bracelet, bed and alarms, visiting hours, pain management, procedures, bathroom and other care routines, personal items, smoking policy, room service/diet, and visiting hours. Information on how to activate the Rapid Response Team has been discussed. Patient/Family are encouraged to report perceived risks to care and to ask questions if they do not understand what they are told or what they should do.
--- NOTE | 2025-10-02 12:08 | P.HP_ITS ---
H&P: HPI History of Present Illness Date/Time: 10/02/25 12:08 Chief Complaint: Mental status change Narrative: 65-year-old female presenting via EMS for altered mental status according to EMS. Patient is alert and oriented x1 at baseline. Family states that the patient was brought in due to abnormal vital signs including a blood pressure of 70/40 and oxygen saturations at 77% after returning from dialysis. Patient has a significant medical history of a stroke after Thanksgiving resulting in her decrease in mental status. In the ER patient was given IV fluid to stabilize of blood pressure. Patient was also started on IV antibiotics after blood culture were done. The patient was not transferred for further evaluation treatment. At present time patient lying comfortably in the bed. Patient is alert and awake. She was just released from [facility] yesterday back to [facility]. Orientation unable to be assessed as patient is not responsive to questions. Related Data Allergies [facility] Past Medical History Medical History Fall Acute right arterial ischemic stroke, MCA (middle cerebral artery) Chronic kidney disease, stage 5 Cancer of right breast (2004) Status post chemotherapy and mastectomy. Diabetic peripheral neuropathy Obesity (BMI 30-39.9) Essential hypertension End-stage renal disease on hemodialysis Chronic kidney disease due to hypertension and diabetes with final insult kidneys with severe rhabdomyolysis March 2023. Vitamin D deficiency Type 2 diabetes mellitus Anemia Normal colonoscopy (07/2011) Primary hyperparathyroidism (11/2020) Vaginal polyp Depression Anxiety Surgical History Surgical History History of right mastectomy History of hysteroscopy (2020) Family History Family History Mother Family history of lung cancer Hypertension Grandparent Cerebrovascular accident Diabetes mellitus Hypertension Son Family history of cardiovascular disease Heart disease Hypertension Father Unknown family medical history Social History Social History Social History: Surrogate decision maker: Adry Smith (sister). Code status: Full code. Smoking packs per day: 0.5 Smoking cigarettes per day: 10.0 Years smoked: 20 Smoking pack-years: 10.00 Smoking status: Former smoker Second hand tobacco smoke exposure: Yes Alcohol intake: never Alcohol use details: Very seldom Substance use: never Substance use type: does not use Lack of Transportation: No Lack of Food: Never True Current Housing: I Have Housing Concerned About Future Housing: No Difficulty Paying Gas/Electric Bills: No Difficulty Paying for Meds: No Currently Unemployed: No Education: High School Diploma/GED Difficulty w/ Childcare or Family Care: No Additional living arrangements comments: Lives in [place]. Additional occupation/education comments: Retired. Sexual Orientation (if Verbalized by the Patient): Straight or Heterosexual Spiritual care concerns: No Agree to blood products: Yes Meds Home Medications and Allergies Home Medications ?Medication ?Instructions ?Recorded ?Confirmed ?Type aspirin 81 mg tablet,delayed 81 mg PO QAM #30 tabs 03/0310/02/25 Rx release cinacalcet 30 mg tablet (Sensipar) 30 mg PO Q24H #30 t abs 04/13/25 10/02/25 Rx atorvastatin 40 mg tablet 80 mg PO DAILY 10/02/2509/10 History carvedilol 25 mg tablet (Coreg) 25 mg PO BID 10/02/25 10/02/25 History folic acid 1 mg tablet 1 mg PO DAILY 10/02/2510/02 History ticagrelor 90 mg tablet 90 mg PO HS 10/02/25 5 History venlafaxine 150 mg 150 mg PO HS 10/02/25 History capsule,extended release 24 hr (Effexor XR) Allergies Allergy/AdvReac Type Severity Reaction Status Date / Time lactose AdvReac Mild Gastrointestinal Verified 10/01/25 18:33 Upset Vital Signs Vital Signs - 24 hr 10/01/25 18:31 10/01/25 18:33 10/01/25 18:46 Temperature 36.6 C Pulse Rate 106 H 105 H 107 H Respiratory Rate 17 20 14 Blood Pressure 107/68 110/62 91/70 L Pulse Oximetry 97 97 98 Oxygen Delivery Room Air 10/01/25 19:01 10/01/25 19:16 10/01/25 20:00 Temperature Pulse Rate 108 H 109 H 108 H Respiratory Rate 14 12 14 Blood Pressure 105/67 100/70 Pulse Oximetry 99 100 Oxygen Delivery 10/01/25 20:15 10/01/25 21:00 10/01/25 22:28 Temperature Pulse Rate 108 H 107 H 107 H Respiratory Rate 14 13 13 Blood Pressure 99/70 L Pulse Oximetry 100 100 98 Oxygen Delivery 10/01/25 22:31 10/01/25 22:45 10/01/25 22:46 Temperature Pulse Rate 113 H 109 H 109 H Respiratory Rate 12 11 L 14 Blood Pressure 99/70 L 91/66 L Pulse Oximetry Oxygen Delivery 10/01/25 23:00 10/01/25 23:01 10/01/25 23:15 Temperature Pulse Rate 110 H 106 H 117 H Respiratory Rate 15 16 14 Blood Pressure 84/54 L 88/68 L Pulse Oximetry 100 100 Oxygen Delivery 10/01/25 23:16 10/01/25 23:30 10/01/25 23:31 Temperature Pulse Rate 112 H 109 H 109 H Respiratory Rate 18 17 Blood Pressure 103/68 Pulse Oximetry Oxygen Delivery 10/01/25 23:45 10/02/25 00:00 10/02/25 00:15 Temperature Pulse Rate 111 H 111 H 113 H Respiratory Rate 16 15 17 Blood Pressure Pulse Oximetry Oxygen Delivery 10/02/25 00:30 10/02/25 00:45 10/02/25 01:00 Temperature Pulse Rate 106 H 107 H 114 H Respiratory Rate 13 14 17 Blood Pressure Pulse Oximetry Oxygen Delivery 10/02/25 01:15 10/02/25 01:26 10/02/25 01:27 Temperature Pulse Rate 105 H 113 H 110 H Respiratory Rate 17 16 16 Blood Pressure 125/67 115/69 Pulse Oximetry 100 99 Oxygen Delivery 10/02/25 01:30 10/02/25 01:31 10/02/25 01:39 Temperature Pulse Rate 109 H 109 H 111 H Respiratory Rate 17 18 18 Blood Pressure 125/76 121/79 Pulse Oximetry 98 98 100 Oxygen Delivery 10/02/25 01:49 10/02/25 02:00 10/02/25 02:24 Temperature Pulse Rate 115 H 114 H 107 H Respiratory Rate 20 15 13 Blood Pressure Pulse Oximetry 97 98 98 Oxygen Delivery 10/02/25 02:25 10/02/25 02:30 10/02/25 02:31 Temperature Pulse Rate 110 H 110 H 110 H Respiratory Rate 8 L 16 16 Blood Pressure 124/55 L 134/75 Pulse Oximetry 100 97 Oxygen Delivery 10/02/25 02:45 10/02/25 02:46 10/02/25 02:47 Temperature Pulse Rate 110 H 109 H 109 H Respiratory Rate 17 17 17 Blood Pressure 108/61 Pulse Oximetry 100 99 98 Oxygen Delivery 10/02/25 03:00 10/02/25 03:01 10/02/25 03:15 Temperature Pulse Rate 108 H 108 H 107 H Respiratory Rate 15 17 19 Blood Pressure 112/60 Pulse Oximetry 100 99 98 Oxygen Delivery 10/02/25 03:16 10/02/25 03:30 10/02/25 03:31 Temperature Pulse Rate 106 H 105 H 105 H Respiratory Rate 15 18 17 Blood Pressure 108/62 109/65 Pulse Oximetry 99 98 98 Oxygen Delivery 10/02/25 03:45 10/02/25 03:46 10/02/25 04:00 Temperature Pulse Rate 105 H 104 H 106 H Respiratory Rate 15 16 19 Blood Pressure 101/63 Pulse Oximetry 97 99 99 Oxygen Delivery 10/02/25 04:01 10/02/25 04:15 10/02/25 04:16 Temperature Pulse Rate 107 H 109 H 105 H Respiratory Rate 15 17 15 Blood Pressure 120/65 116/69 Pulse Oximetry 98 99 Oxygen Delivery 10/02/25 04:30 10/02/25 04:31 10/02/25 04:45 Temperature Pulse Rate 108 H 109 H 104 H Respiratory Rate 16 16 18 Blood Pressure 84/59 L Pulse Oximetry 98 98 99 Oxygen Delivery 10/02/25 04:46 10/02/25 05:00 10/02/25 05:01 Temperature Pulse Rate 106 H 110 H 114 H Respiratory Rate 18 17 17 Blood Pressure 108/58 L 101/58 L Pulse Oximetry 98 98 98 Oxygen Delivery 10/02/25 05:15 10/02/25 05:16 10/02/25 05:30 Temperature Pulse Rate 109 H 113 H 110 H Respiratory Rate 17 17 16 Blood Pressure 88/61 L Pulse Oximetry 97 97 97 Oxygen Delivery 10/02/25 05:31 10/02/25 06:01 10/02/25 06:31 Temperature Pulse Rate 111 H 106 H 101 H Respiratory Rate 17 16 16 Blood Pressure 100/48 L 108/65 105/65 Pulse Oximetry 98 98 99 Oxygen Delivery 10/02/25 07:00 10/02/25 07:34 10/02/25 07:46 Temperature Pulse Rate 107 H 110 H 103 H Respiratory Rate 19 15 15 Blood Pressure 101/71 117/63 Pulse Oximetry 97 98 99 Oxygen Delivery 10/02/25 07:48 10/02/25 08:31 Temperature 36.9 C Pulse Rate 105 H 104 H Respiratory Rate 17 15 Blood Pressure 117/63 107/67 Pulse Oximetry 100 100 Oxygen Delivery Exam Narrative: GENERAL: No acute distress. HEAD: Normocephalic, atraumatic. EYES: PERRLA and EOMI. ENT: Nares clear, no rhinorrhea or epistaxis. Mucous membranes moist. Oropharynx without tonsillar hypertrophy exudate or other lesions. Bilateral TMs pearly roy non-bulging NECK: Supple. No adenopathy or masses. No carotid bruits or JVD CHEST: Clear to auscultation. No respiratory distress. No wheezes rales or rhonchi HEART: Tachycardic. Regular rhythm. No murmur heard. Normal peripheral pulses. ABDOMEN: Soft, nontender, nondistended, normal active bowel sounds. BACK: No abnormalities. Loose, mildly bloody stool present in depends. EXTREMITIES: Normal range of motion. No edema. SKIN: Warm, dry, no rash. NEURO: Alert and awake but refuses to answer to any questions PSYCH: Normal mood and affect Results Labs Labs: Short CBC 10/01/25 Range/Units 22:26 WBC 17.4 H (4.5-10.0) K/mm3 Hgb 13.5 (12.0-15.0) g/dL Hct 42.2 (37.0-47.0) % Plt Count 245 (150-375) k/mm3 BMP 10/01/25 22:26 Sodium 132 L Potassium 4.7 Chloride 93 L Carbon Dioxide 24 BUN 26 H Creatinine 5.87 H Glucose 145 H Calcium 10.0 Liver Function 10/01/25 Range/Units 22:26 Total Bilirubin 0.8 (0.2-1.3) mg/dL AST 37 H (14-36) U/L ALT 20 (6-35) U/L Alkaline Phosphatase 163 H (38-126) U/L Albumin 4.7 (3.5-5.1) g/dL Assessment and Plan Assessment and plan (1) UTI (urinary tract infection): Code(s): N39.0 - Urinary tract infection, site not specified Status: Acute Assessment and Plan: Blood and urine culture and IV antibiotic. (2) AMS (altered mental status): Code(s): R41.82 - Altered mental status, unspecified Status: Inactive Assessment and Plan: Most likely from urine tract infection. Will give IV antibiotics. Monitor closely. (3) End-stage renal disease on hemodialysis: Code(s): N18.6 - End stage renal disease; Z99.2 - Dependence on renal dialysis Status: Acute Assessment and Plan: Continue hemodialysis. (4) History of CVA (cerebrovascular accident): Code(s): Z86.73 - Personal history of transient ischemic attack (TIA), and cerebral infarction without residual deficits Status: Acute Assessment and Plan: Stable, continue current treatment Plan Patient is admitted with a full admission. Code status DNR. DVT prophylaxis heparin
[2025-10-02] MEDS: PIPERACILLIN/TAZOBACTAM SOD 2.25 GM in SODIUM CHLORIDE 0.9% IV 50 ML 100 ML IVPB ×2 (12:44→18:50)
[2025-10-02] MEDS: VANCOMYCIN 1,250 MG/NS 250 ML 1,250 MG/250 ML BAG 166.67 MG IVPB (13:18)
[2025-10-02] MEDS: ASPIRIN 81 MG ENTERIC TABLET PO (18:06)
[2025-10-02] MEDS: ATORVASTATIN 40 MG TABLET 80 MG PO (18:06)
[2025-10-02] MEDS: FOLIC ACID 1 MG TABLET PO (18:06)
[2025-10-02 19:01] LABS: MRSA (PCR) NOT DETECTED (NOT DETECTE)
[2025-10-02] MEDS: VENLAFAXINE HCL XR 75 MG CAP.ER.24H 150 MG PO (20:27)
[2025-10-02] MEDS: TICAGRELOR 90 MG TABLET PO (20:27)
[2025-10-02] MEDS: MIDODRINE HCL 10 MG TABLET PO (23:15)
[2025-10-02] MEDS: SODIUM CHLORIDE 0.9% IV 500 ML 250 ML IV CONT (23:16)
--- NOTE | 2025-10-02 23:23 | PC.NURSE ---
Patient AOX1 on RA noted with having BP : 78/50 VIA Manual.Patient seems to be lying on bed comfortably without any signs of discomfort. Dr. Weiner was notified and recommended to give Midodrine 10mg once and 500ml of Sodium chloride over 2 hrs. Order placed and midodrine given and IV bolus is running.Will continue to monitor her BP and endorse it accordingly.
[2025-10-03] VITALS (13 sets, daily range): BP systolic 84–112; BP diastolic 51–58; PULSE 71–90; RESP 12–16; TEMP 36.2–36.6; O2SAT 100
[2025-10-03] MEDS: PIPERACILLIN/TAZOBACTAM SOD 2.25 GM in SODIUM CHLORIDE 0.9% IV 50 ML 100 ML IVPB ×3 (02:23→23:38)
[2025-10-03 06:05] LABS: Hematocrit 35.0 % (37.0-47.0); Hemoglobin 10.9 g/dL (12.0-15.0); Immature Granulocyte Percent A 0.2 % (0-0.5); Lymphocytes Absolute Auto 1.55 K/mm3 (0.9-3.2); Mean Corpuscular HGB Conc 31.1 g/dl (32-36); Mean Corpuscular Hemoglobin 29.5 pg (26-34); Mean Corpuscular Volume 94.9 fl (80-100); Nucleated Red Blood Cells Absolute Auto 0.000 K/mm3 (0.0-0.012); Nucleated Red Blood Cells Perc 0.0 % (0.0-0.2); Platelet Count Result 225 k/mm3 (150-375); Red Blood Count 3.69 M/mm3 (4.2-5.4); White Blood Count 12.3 K/mm3 (4.5-10.0)
[2025-10-03 06:23] LABS: Alanine Aminotransferase 12 U/L (6-35); Albumin Level 3.4 g/dL (3.5-5.1); Alkaline Phosphatase 123 U/L (38-126); Anion Gap 11 mmol/L (4-12); Aspartate Amino Transferase 17 U/L (14-36); Bilirubin,Total 0.6 mg/dL (0.2-1.3); Blood Urea Nitrogen 38 mg/dL (7-17); Calcium 9.6 mg/dL (8.4-10.2); Carbon Dioxide 19 mmol/L (22-30); Chloride 102 mmol/L (98-107); Estimated CRCL calculation 5 ml/min; Estimated Glomerular Filt Rate 5; Glucose 94 mg/dL (65-110); Potassium 3.4 mmol/L (3.4-5.0); Sodium 132 mmol/L (137-145); Total Protein 6.6 g/dL (6.3-8.2)
[2025-10-03 07:05] LABS: Hepatitis B Surface Antigen Negative (Negative)
[2025-10-03 07:28] LABS: Hepatitis B Surface Anti Res Positive
[2025-10-03] MEDS: VANCOMYCIN 500 MG/NS 100 ML 500 MG/100 ML BAG 100 MG IVPB (09:28)
--- NOTE | 2025-10-03 09:35 | PM.IMPN2 ---
Assessment and Plan Assessment and Plan (1) UTI (urinary tract infection): Code(s): N39.0 - Urinary tract infection, site not specified Status: Acute Assessment and Plan: Blood and urine culture and IV antibiotic. (2) AMS (altered mental status): Code(s): R41.82 - Altered mental status, unspecified Status: Inactive Assessment and Plan: Most likely from urine tract infection. Will give IV antibiotics. Monitor closely. (3) End-stage renal disease on hemodialysis: Code(s): N18.6 - End stage renal disease; Z99.2 - Dependence on renal dialysis Status: Acute Assessment and Plan: Continue hemodialysis. (4) History of CVA (cerebrovascular accident): Code(s): Z86.73 - Personal history of transient ischemic attack (TIA), and cerebral infarction without residual deficits Status: Acute Assessment and Plan: Stable, continue current treatment Plan Patient is admitted with a full admission. Code status DNR. DVT prophylaxis heparin Subjective Date/time seen: 10/03/25 09:35 Interval history: Patient was seen during the morning rounds today. Feeling much better More awake and alert No sob or chest pain Review of Systems Review of Systems: All systems reviewed & are unremarkable except as noted in HPI and below (the history and physical exam.) Exam Narrative: GENERAL: No acute distress. HEAD: Normocephalic, atraumatic. EYES: PERRLA and EOMI. ENT: Nares clear, no rhinorrhea or epistaxis. Mucous membranes moist. Oropharynx without tonsillar hypertrophy exudate or other lesions. Bilateral TMs pearly roy non-bulging NECK: Supple. No adenopathy or masses. No carotid bruits or JVD CHEST: Clear to auscultation. No respiratory distress. No wheezes rales or rhonchi HEART: Tachycardic. Regular rhythm. No murmur heard. Normal peripheral pulses. ABDOMEN: Soft, nontender, nondistended, normal active bowel sounds. BACK: No abnormalities. Loose, mildly bloody stool present in depends. EXTREMITIES: Normal range of motion. No edema. SKIN: Warm, dry, no rash. NEURO: Alert and awake but refuses to answer to any questions PSYCH: Normal mood and affect Objective Data Vital Signs Vital Signs: Vital Signs - 24 hr 10/02/25 09:45 10/02/25 12:00 10/02/25 14:00 Temperature 36.2 C L Pulse Rate 103 H 106 H Respiratory Rate 14 Blood Pressure 116/66 Pulse Oximetry 100 Oxygen Delivery Room Air 10/02/25 16:00 10/02/25 18:01 10/02/25 20:00 Temperature Pulse Rate 100 100 86 Respiratory Rate Blood Pressure Pulse Oximetry Oxygen Delivery 10/02/25 20:45 10/02/25 21:34 10/02/25 22:03 Temperature 36.5 C Pulse Rate 83 Respiratory Rate 14 Blood Pressure 70/52 L 78/50 L Pulse Oximetry 100 Oxygen Delivery Room Air 10/03/25 00:00 10/03/25 00:49 10/03/25 01:24 Temperature 36.3 C L Pulse Rate 88 85 Respiratory Rate 12 Blood Pressure 84/58 L 92/56 L Pulse Oximetry 100 Oxygen Delivery 10/03/25 04:00 10/03/25 06:00 10/03/25 09:29 Temperature 36.2 C L Pulse Rate 79 82 82 Respiratory Rate 16 Blood Pressure 96/58 L Pulse Oximetry 100 Oxygen Delivery Intake/Output Intake/Output: Intake & Output 09/30/25 10/01/25 10/02/25 10/03/25 23:59 23:59 23:59 23:59 Intake Total 1650 50 Output Total 0 0 Balance 0 1650 50 Meds/Results Medications: Active Medications Generic Name Dose Route Start Last Admin Trade Name Freq PRN Reason Stop Dose Admin Aspirin 81 mg 10/02/25 12:25 10/03/25 09:30 Aspirin 81 Mg Enteric Tablet PO 81 mg QAM RAVI Administration Atorvastatin Calcium 80 mg 10/02/25 12:25 10/03/25 09:29 Atorvastatin 40 Mg Tablet PO 80 mg DAILY RAVI Administration Carvedilol 25 mg 10/02/25 17:00 10/03/25 09:29 Carvedilol 25 Mg Tablet PO 25 mg BIDWM RAVI Administration Cinacalcet 30 mg 10/02/25 12:20 10/03/25 09:29 Cinacalcet 30 Mg Tablet PO 30 mg QAM RAVI Administration Dextrose 12.5 gm 10/02/25 16:16 Dextrose 50% 25 Gm/50 Ml Syringe IV PUSH PRN PRN Hypoglycemia Protocol Folic Acid 1 mg 10/02/25 12:25 10/03/25 09:30 Folic Acid 1 Mg Tablet PO 1 mg DAILY RAVI Administration Glucagon 1 mg 12/24/25 16:16 Glucagon For Inj 1 Mg Vial IM PRN PRN Hypoglycemia Protocol Glucose 15 gm 10/02/25 16:16 Glucose Oral Gel 15 Gm Of Glucse In 37.5 Gm Tube PO PRN PRN Hypoglycemia Protocol Heparin Sodium (Porcine) 5,000 units 10/02/25 11:30 10/03/25 09:29 Heparin Sodium 5,000 Units/Ml Vial SUB-Q 5,000 units Q12HR RAVI Administration Piperacillin Sod/Tazobactam 50 mls @ 100 mls/hr 10/02/25 11:00 10/03/25 02:53 Sod 2.25 gm/ Sodium Chloride IVPB Infused Q8H RAVI Infusion Dextrose 1,000 mls @ 100 mls/hr 10/02/25 16:16 Dextrose 5% 1,000 Ml IVPB PRN PRN Hypoglycemia Protocol Vancomycin HCl 500 mg in 100 mls @ 100 mls/hr 10/03/25 09:00 10/03/25 09:28 Vancomycin 500 Mg/Ns 100 Ml IVPB 10/03/25 09:59 100 mls/hr ONCE ONE Administration Insulin Aspart 2 - 5 units 10/02/25 17:00 10/03/25 09:30 Insulin Aspart (*Bkc) 100 Units/Ml SUB-Q Not Given TIDWM RAVI Protocol Pantoprazole Sodium 20 mg 10/02/25 09:00 10/03/25 09:30 Pantoprazole Sod Sesquihydrate 20 Mg Tab PO 20 mg QAM RAVI Administration Ticagrelor 90 mg 10/02/25 21:00 10/02/25 20:27 Ticagrelor 90 Mg Tablet PO 90 mg HS RAVI Administration Vancomycin HCl 1 each 10/02/25 11:06 Vancomycin For Hemodialysis IVPB PRN PRN Vancomycin Protocol Venlafaxine HCl 150 mg 10/02/25 21:00 10/02/25 20:27 Venlafaxine Hcl Xr 75 Mg Cap.Er.24h PO 150 mg HS RAVI Administration Radiology Results: ITS Impressions Head CT 10/02/25 07:24 IMPRESSION: 1. No acute intracranial findings. Chest/Abdomen/Pelvis CTA 10/02/25 07:31 IMPRESSION: 1. No pulmonary embolus. 2. Small pericardial effusion. 3. Pancolitis. Labs Labs: Laboratory Results - last 24 hr 10/02/25 10/02/25 10/02/25 17:21 17:36 21:13 WBC RBC Hgb Hct MCV MCH MCHC RDW Plt Count MPV Immature Gran % (Auto) Neut % (Auto) Lymph % (Auto) [place] % (Auto) Eos % (Auto) Baso % (Auto) Lymph # (Auto) [place] # (Auto) Eos # (Auto) Baso # (Auto) Abs Immat Gran (auto) Absolute Neuts (auto) Absolute Nucleated RBC Nucleated RBC % Sodium Potassium Chloride Carbon Dioxide Anion Gap BUN Creatinine Estim Creat Clear Calc Estimated GFR Glucose POC Capillary Glucose 90 153 H Calcium Total Bilirubin AST ALT Alkaline Phosphatase Total Protein Albumin Nasal MRSA (PCR) Not detected Random Vancomycin Hep Bs Antigen Hep Bs Antibody 10/03/25 10/03/25 06:00 07:41 WBC 12.3 H RBC 3.69 L Hgb 10.9 L Hct 35.0 L MCV 94.9 D MCH 29.5 MCHC 31.1 L RDW 15.3 H Plt Count 225 MPV 11.4 H Immature Gran % (Auto) 0.2 Neut % (Auto) 71.1 Lymph % (Auto) 12.6 L [place] % (Auto) 13.4 H Eos % (Auto) 1.8 Baso % (Auto) 0.9 Lymph # (Auto) 1.55 [place] # (Auto) 1.7 H Eos # (Auto) 0.2 Baso # (Auto) 0.1 Abs Immat Gran (auto) 0.02 Absolute Neuts (auto) 8.8 H Absolute Nucleated RBC 0.000 Nucleated RBC % 0.0 Sodium 132 L Potassium 3.4 Chloride 102 Carbon Dioxide 19 L Anion Gap 11 BUN 38 H D Creatinine 8.81 H Estim Creat Clear Calc 5 Estimated GFR 5 L Glucose 94 POC Capillary Glucose 97 Calcium 9.6 Total Bilirubin 0.6 AST 17 ALT 12 Alkaline Phosphatase 123 Total Protein 6.6 Albumin 3.4 L Nasal MRSA (PCR) Random Vancomycin 15.7 Hep Bs Antigen Negative Hep Bs Antibody Positive
--- NOTE | 2025-10-03 12:47 | P.CONNP_ITS ---
Assessment and Plan Assessment and plan (1) End stage renal disease: Code(s): N18.6 - End stage renal disease Status: Chronic Assessment and Plan: * HD tomorrow * continue holiday (/) dialysis schedule of Tue//Tuesday this and next week * follow electrolytes, volume status, and clearance (2) Altered mental status: Code(s): R41.82 - Altered mental status, unspecified Status: Acute Assessment and Plan: * mild improvement noted * as noted per nursing facility * however, poor mentation noted since recent CVA earlier this month * due to infection (elevated WBC noted on admission) * follow culture data * admission CT scan with pancolitis * on antibiotics * follow trend of mentation (3) History of CVA (cerebrovascular accident): Code(s): Z86.73 - Personal history of transient ischemic attack (TIA), and cerebral infarction without residual deficits Status: Chronic Assessment and Plan: * as noted earlier this month * s/p hospitalization at [facility] and [facility] with imaging/hospital course noted: * head CT which showed chronic infarcts but no acute hemorrhage * MRI of the brain revealed a new left frontal subcortical infarct with evidence of chronic small vessel ischemic changes and prior right parietal infarct * MRI/MRA of the brain and neck demonstrated 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, occlusion of the superior left intracranial vertebral artery, and multifocal stenosis of the anterior and posterior circulations, raising concern for intracranial atherosclerotic disease * diagnostic cerebral angiogram showed multiple alternating areas of moderate to severe stenosis with a beading pattern in both anterior and posterior circulations representing multifocal intracranial atherosclerosis * likely playing a role with #2 * initiated on ticagrelor in addition to aspirin with high intensty statin therapy * continue supportive therapy (4) Anemia: Qualifiers: Anemia type: due to chronic kidney disease Chronic kidney disease stage: stage 5 (GFR < 15), not on chronic dialysis Qualified Code(s): N18.5 - Chronic kidney disease, stage 5; D63.1 - Anemia in chronic kidney disease Code(s): D64.9 - Anemia, unspecified Status: Acute Assessment and Plan: * due to ESRD * Epogen with dialysis * follow trend of H/H (5) Hypertension: Qualifiers: Hypertension type: secondary to other renal disorders Qualified Code(s): I15.1 - Hypertension secondary to other renal disorders; N28.89 - Other specified disorders of kidney and ureter Code(s): I10 - Essential (primary) hypertension Status: Chronic Assessment and Plan: * reasonable control at this time * follow trend of hemodynamics (6) Diabetes: Code(s): E11.9 - Type 2 diabetes mellitus without complications Status: Chronic Assessment and Plan: * follow accu-cheks * glycemic control per hospitalist Greater than 20 minutes was spent in detailed review of her electronic medical records including her recent hospitalization earlier this month at [facility] in [place] as well as at [facility] regarding her diagnosis and evaluation of her recent CVA/stroke and associated intervenetions/hospital course. I will continue to follow the patient with you while she remains hospitalized and make further recommendations as deemed necessary. Thank you for allowing me to participate in the care of this patient. L History of Present Illness Reason for Consult Consult date: 10/03/25 Reason for consult: end stage renal disease Chief Complaint Chief complaint: Colitis, Sepsis, Leukocytosis History of Present Illness Narrative: The patient is a 65-year-old female with a past medical history as outlined below who presented to [facility] Emergency Room from her nursing facility via EMS for altered mental status. Almost all the information that I have obtained is from review of the electronic medical record as well as discussion with the physician/nurses involved in the patient's care as the patient is unable to provide me with any history due to her mentation. According to the family, the patient had her dialysis treatment on 10/01 due to the / hol dialysis schedule and following that intervention, she had issues and problems with hypotension and hypoxia when she returned to her nursing facility. At baseline, she apparently is alert ordered x1 although review of her records would indicate that it has been fluctuating more recently given her recent CVA/stroke where she was initially hospitalized at [facility] in [address] [place] [address] and subsequently transferred to [facility] for further evaluation and therapy. She was apparently just discharged from [facility] back to her nursing facility a few days ago. In any case, given her previous abnormal vital signs coupled with her change in mentation, EMS was summoned to her nursing facility and transferred to the emergency room for further assessment. Workup and evaluation emergency room demonstrated the patient to be slightly hypotensive in the high 90 systolic range in association with mild tachycardia but no evidence of fever or hypoxia. Routine blood work demonstrated a white blood cell count of 17.4, hemoglobin 13.5, hematocrit 42.2, platelet count 245, sodium 132, potassium 4.7, bicarb 24, BUN 26, creatinine 5.87, glucose 145, calcium 10.0, total bilirubin 0.8, AST 37, ALT 20, alkaline phosphatase 163, albumin 4.7 with a lactic acid of 1.8 And a C-reactive protein of 6.9. Viral testing for influenza, RSV, and COVID were negative and no apparent urinalysis was done. CT scan of the head demonstrated no acute intracranial findings but her D-dimer was noted be elevated so a subsequent CTA of the chest/abdomen/pelvis was done which showed no pulmonary embolism, a small pericardial effusion, and agrawal colitis. After appropriate cultures were obtained, she was initiated on broad-spectrum antibiotic therapy and given a bolus of IV fluids which seem to improve her blood pressure as well. She was subsequently admitted to the hospital for further evaluation and therapy. Since her admission, her mentation has slightly improved. From my discussion with nursing, initially she would open her eyes when her name was called but did not respond verbally and seem to go back to sleep. However, today, she is able to slightly nod her head to yes/no questions but remains nonverbal. From review of her records, the patient initially presented to [facility] in [address] [place] [address] on 09/17/2025 with severe expressive and receptive aphasia, confusion, and chronic left-sided weakness. Initial workup included a non- contrast head CT which showed chronic infarcts but no acute hemorrhage and a MRI of the brain which revealed a new left frontal subcortical infarct with evidence of chronic small vessel ischemic changes and prior right parietal infarct. 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 She was subsequently transferred to [facility] on 09/19/25 for possible intervention. Diagnostic cerebral angiogram showed multiple alternating areas of moderate to severe stenosis with a beading pattern in both anterior and posterior circulations and this was felt to represent multifocal intracranial atherosclerosis. She was transitioned to ticagrelor in addition to aspirin. Atorvastatin was increased to high-intensity dosing. Blood pressure was managed with carvedilol, and amlodipine was discontinued due to adequate control. She was eventually discharged back to her nursing facility following this hospital course. Renal consultation was requested due to her end-stage renal disease. The patient normally dialyzes on a Tuesday, Tuesday, Tuesday dialysis schedule at [facility] dialysis under the care of Dr. Praful Colmenares. She was initiated on renal replacement therapy/dialysis approximately 6 months ago and has been doing relatively well from a dialysis perspective but she has had multiple issues and complications related to her neurological status given her most recent CVA/ stroke earlier this month as mentioned above. From a dialysis perspective, she usually does not have any significant fluid gains in between her dialysis treatments and her monthly labs show relative stability in her ESRD parameters. As already mentioned above, due to the holiday schedule, her last dialysis treatment was on 10/01 and she is due for dialysis again on 10/04. Currently, at the time my evaluation, she does not appear to be in any acute distress. Review of Systems 2 Review of Systems: As per HPI. COUNT INCLUDES THE [facility] Past Medical History Medical History Fall Acute right arterial ischemic stroke, MCA (middle cerebral artery) Chronic kidney disease, stage 5 Cancer of right breast (2004) Status post chemotherapy and mastectomy. Diabetic peripheral neuropathy Obesity (BMI 30-39.9) Essential hypertension End-stage renal disease on hemodialysis Chronic kidney disease due to hypertension and diabetes with final insult kidneys with severe rhabdomyolysis March 2023. Vitamin D deficiency Type 2 diabetes mellitus Anemia Normal colonoscopy (07/2011) Primary hyperparathyroidism (11/2020) Vaginal polyp Depression Anxiety Surgical History Surgical History History of right mastectomy History of hysteroscopy (2020) Family History Family History Mother Family history of lung cancer Hypertension Grandparent Cerebrovascular accident Diabetes mellitus Hypertension Son Family history of cardiovascular disease Heart disease Hypertension Father Unknown family medical history Social History Social History Social History: Surrogate decision maker: Adry Smith (sister). Code status: Full code. Smoking packs per day: 0.5 Smoking cigarettes per day: 10.0 Years smoked: 20 Smoking pack-years: 10.00 Smoking status: Former smoker Second hand tobacco smoke exposure: Yes Alcohol intake: never Alcohol use details: Very seldom Substance use: never Substance use type: does not use Lack of Transportation: No Lack of Food: Never True Current Housing: I Have Housing Concerned About Future Housing: No Difficulty Paying Gas/Electric Bills: No Difficulty Paying for Meds: No Currently Unemployed: No Education: High School Diploma/GED Difficulty w/ Childcare or Family Care: No Additional living arrangements comments: Lives in [place]. Additional occupation/education comments: Retired. Sexual Orientation (if Verbalized by the Patient): Straight or Heterosexual Spiritual care concerns: No Agree to blood products: Yes Meds Home Medications and Allergies Home Medications ?Medication ?Instructions ?Recorded ?Confirmed ?Type aspirin 81 mg tablet,delayed 81 mg PO QAM #30 tabs 03/0310/02/25 Rx release cinacalcet 30 mg tablet (Sensipar) 30 mg PO Q24H #30 t abs 04/13/25 10/02/25 Rx atorvastatin 40 mg tablet 80 mg PO DAILY 10/02/2509/10 History carvedilol 25 mg tablet (Coreg) 25 mg PO BID 10/02/25 10/02/25 History folic acid 1 mg tablet 1 mg PO DAILY 10/02/2510/02 History ticagrelor 90 mg tablet 90 mg PO HS 10/02/25 5 History venlafaxine 150 mg 150 mg PO HS 10/02/25 History capsule,extended release 24 hr (Effexor XR) Allergies Allergy/AdvReac Type Severity Reaction Status Date / Time lactose AdvReac Mild Gastrointestinal Verified 10/02/25 13:21 Upset Vital Signs Vital Signs Temp Pulse Resp BP Pulse Ox O2 Del Method 10/03/25 12:00 71 10/03/25 09:29 82 10/03/25 08:00 77 10/03/25 08:00 Room Air 10/03/25 06:00 97.2 F L 82 16 96/58 L 100 10/03/25 04:00 79 10/03/25 01:24 92/56 L 10/03/25 00:49 97.4 F L 85 12 84/58 L 100 10/03/25 00:00 88 10/02/25 22:03 78/50 L 10/02/25 21:34 97.7 F 83 14 70/52 L 100 10/02/25 20:45 Room Air 10/02/25 20:00 86 Exam 2 Narrative: GENERAL APPEARANCE: well developed well nourished female in no acute distress HEENT: normocephalic, atraumatic, normal conjunctiva and sclera, nares patient NECK: no lymphadenopathy, thyromegaly, or JVD MOUTH: normal lips, teeth, and gums CARDIOVASCULAR: RRR, normal S1 and S2, no rub RESPIRATORY: clear to auscultation bilaterally ABDOMEN: soft, nontender, nondistended, positive bowel sounds present EXTREMITIES: no evidence of cyanosis, clubbing, or edema NEUROLOGICAL: awake and nods head to yes/no questions; nonverbal Results Lab Results 10/04/25 04:53 10/04/25 04:53 Lab results: Most recent lab results Calcium 9.6 mg/dL (8.4-10.2) 10/03/25 06:00
--- NOTE | 2025-10-03 14:47 | PCPTNOTE ---
PT attempted eval, patient demo flat affect at first and wont speak. Refused and turned head when encouraged to get out of bed. per nursing report, pt also refused meds and meals. Will continue to monitor. RR, PT 14:00
--- NOTE | 2025-10-03 21:45 | PC.NURSE ---
Notified Dee Barnett regarding pt refusing to take PO medications. Educated pt on the reason she is taking Brilinta & Effexor, pt continued to spit out medications.
[2025-10-04] VITALS (28 sets, daily range): BP systolic 109–131; BP diastolic 58–75; PULSE 82–122; RESP 16–18; TEMP 36.4–37.6; O2SAT 94–100; BMI 25.6
[2025-10-04 05:33] LABS: Hematocrit 33.6 % (37.0-47.0); Hemoglobin 10.6 g/dL (12.0-15.0); Immature Granulocyte Percent A 0.3 % (0-0.5); Lymphocytes Absolute Auto 2.44 K/mm3 (0.9-3.2); Mean Corpuscular HGB Conc 31.5 g/dl (32-36); Mean Corpuscular Hemoglobin 29.0 pg (26-34); Mean Corpuscular Volume 92.1 fl (80-100); Nucleated Red Blood Cells Absolute Auto 0.000 K/mm3 (0.0-0.012); Nucleated Red Blood Cells Perc 0.0 % (0.0-0.2); Platelet Count Result 270 k/mm3 (150-375); Red Blood Count 3.65 M/mm3 (4.2-5.4); White Blood Count 11.2 K/mm3 (4.5-10.0)
[2025-10-04 05:55] LABS: Alanine Aminotransferase 11 U/L (6-35); Albumin Level 3.5 g/dL (3.5-5.1); Alkaline Phosphatase 126 U/L (38-126); Anion Gap 16 mmol/L (4-12); Aspartate Amino Transferase 23 U/L (14-36); Bilirubin,Total 0.5 mg/dL (0.2-1.3); Blood Urea Nitrogen 47 mg/dL (7-17); Calcium 9.8 mg/dL (8.4-10.2); Carbon Dioxide 20 mmol/L (22-30); Chloride 102 mmol/L (98-107); Estimated CRCL calculation 4 ml/min; Estimated Glomerular Filt Rate 4; Glucose 71 mg/dL (65-110); Magnesium 2.0 mg/dL (1.6-2.3); Potassium 3.6 mmol/L (3.4-5.0); Sodium 138 mmol/L (137-145); Total Protein 6.6 g/dL (6.3-8.2)
[2025-10-04] MEDS: PIPERACILLIN/TAZOBACTAM SOD 2.25 GM in SODIUM CHLORIDE 0.9% IV 50 ML 100 ML IVPB ×3 (06:39→22:49)
--- NOTE | 2025-10-04 08:52 | PC.NURSE ---
patient off floor to hemo dialysis
--- NOTE | 2025-10-04 08:56 | PCPTNOTE ---
Attempted PT evaluation, pt in dialysis. Will follow.
[2025-10-04] MEDS: EPOETIN ALFA-EPBX 4,000 UNITS/ML VIAL 4000 UNITS IV PUSH (09:54)
[2025-10-04] MEDS: SODIUM CHLORIDE 0.9% IV 1,000 ML 999 ML IV CONT (09:55)
--- NOTE | 2025-10-04 10:26 | P.PNNP_ITS ---
Progress Note: A&P Assessment and Plan (1) End stage renal disease: Code(s): N18.6 - End stage renal disease Status: Chronic Assessment and Plan: * HD today * continue holiday (/) dialysis schedule of Tue//Tuesday this and next week * follow electrolytes, volume status, and clearance (2) Altered mental status: Code(s): R41.82 - Altered mental status, unspecified Status: Acute Assessment and Plan: * mild improvement noted * as noted per nursing facility * however, poor mentation noted since recent CVA earlier this month * due to infection (elevated WBC noted on admission) * follow culture data - blood cultures negatie to date - UA/urine culture not done - ordered today * admission CT scan with pancolitis * on antibiotics * follow trend of mentation (3) History of CVA (cerebrovascular accident): Code(s): Z86.73 - Personal history of transient ischemic attack (TIA), and cerebral infarction without residual deficits Status: Chronic Assessment and Plan: * as noted earlier this month * s/p hospitalization at [facility] with imaging noted: * head CT which showed chronic infarcts but no acute hemorrhage * MRI of the brain revealed a new left frontal subcortical infarct with evidence of chronic small vessel ischemic changes and prior right parietal infarct * MRI/MRA of the brain and neck demonstrated 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, occlusion of the superior left intracranial vertebral artery, and multifocal stenosis of the anterior and posterior circulations, raising concern for intracranial atherosclerotic disease * diagnostic cerebral angiogram showed multiple alternating areas of moderate to severe stenosis with a beading pattern in both anterior and posterior circulations representing multifocal intracranial atherosclerosis * likely playing a role with #2 * on ticagrelor in addition to aspirin with high intensity statin therapy * continue supportive therapy (4) Anemia: Qualifiers: Anemia type: due to chronic kidney disease Chronic kidney disease stage: stage 5 (GFR < 15), not on chronic dialysis Qualified Code(s): N18.5 - Chronic kidney disease, stage 5; D63.1 - Anemia in chronic kidney disease Code(s): D64.9 - Anemia, unspecified Status: Acute Assessment and Plan: * due to ESRD * Epogen with dialysis * follow trend of H/H (5) Hypertension: Qualifiers: Hypertension type: secondary to other renal disorders Qualified Code(s): I15.1 - Hypertension secondary to other renal disorders; N28.89 - Other specified disorders of kidney and ureter Code(s): I10 - Essential (primary) hypertension Status: Chronic Assessment and Plan: * reasonable control at this time * follow trend of hemodynamics (6) Diabetes: Code(s): E11.9 - Type 2 diabetes mellitus without complications Status: Chronic Assessment and Plan: * follow accu-cheks * glycemic control per hospitalist Will continue to follow. L Subjective Date/time seen: 10/04/25 10:26 Interval history: Follow-up for end stage renal disease on hemodialysis. Tolerating dialysis treatment at the time of my visit (seen on HD at 10:15am); mentation slightly a bit better -- nods her head to yes/no questions but remains non-verbal; per nursing and HD nurse, keeps grabbing at HD catheter and removing dressings; otherwise, in no apparent distress when seen. Exam 2 Narrative: General: elderly but WD/WN female in NAD Heart: normal S1 and S2; no rub Lungs: clear to auscultation Abdomen: soft, nontender, nondistended, positive bowel sounds Extremities: no cyanosis or clubbing; no edema Skin: warm and dry Objective Data Vital Signs Vital Signs: Vital Signs Temp Pulse Resp BP Pulse Ox O2 Del Method 10/04/25 10:15 100 117/69 10/04/25 10:00 93 118/73 10/04/25 09:45 91 126/70 10/04/25 09:30 89 118/75 10/04/25 09:15 90 114/73 10/04/25 08:57 83 130/69 10/04/25 08:50 99.1 F 89 16 126/71 100 10/04/25 08:00 89 10/04/25 05:55 97.5 F L 87 16 114/61 100 10/04/25 04:00 82 10/04/25 00:00 83 10/03/25 21:23 97.5 F L 80 16 112/53 L 100 10/03/25 20:00 84 10/03/25 20:00 Room Air 10/03/25 18:14 90 10/03/25 16:00 90 Intake/Output Intake/Output: Intake & Output 12/2310/02/25 10/03/25 10/04/25 23:59 23:59 23:59 23:59 Intake Total 1650 50 218 Output Total 0 0 0 Balance 0 1650 50 218 Meds/Results Medications: Active Medications Generic Name Dose Route Start Last Admin Trade Name Freq PRN Reason Stop Dose Admin Aspirin 81 mg 10/02/25 12:25 10/04/25 13:39 Aspirin 81 Mg Enteric Tablet PO Not Given QAM RAVI Atorvastatin Calcium 80 mg 10/02/25 12:25 10/04/25 13:39 Atorvastatin 40 Mg Tablet PO Not Given DAILY RAVI Carvedilol 25 mg 10/02/25 17:00 10/04/25 13:38 Carvedilol 25 Mg Tablet PO Not Given BIDWM RAVI Cinacalcet 30 mg 10/02/25 12:20 10/04/25 13:39 Cinacalcet 30 Mg Tablet PO Not Given QAM RAVI Dextrose 12.5 gm 10/02/25 16:16 Dextrose 50% 25 Gm/50 Ml Syringe IV PUSH PRN PRN Hypoglycemia Protocol Epoetin Isac-epbx 4,000 units 10/04/25 18:00 10/04/25 09:54 Epoetin Isac-Epbx 4,000 Units/Ml Vial IV PUSH 10/04/25 18:01 4,000 units ONCE ONE Administration Folic Acid 1 mg 10/02/25 12:25 10/04/25 13:39 Folic Acid 1 Mg Tablet PO Not Given DAILY RAVI Glucagon 1 mg 10/02/25 16:16 Glucagon For Inj 1 Mg Vial IM PRN PRN Hypoglycemia Protocol Glucose 15 gm 10/02/25 16:16 Glucose Oral Gel 15 Gm Of Glucse In 37.5 Gm Tube PO PRN PRN Hypoglycemia Protocol Heparin Sodium (Porcine) 5,000 units 10/02/25 11:30 10/04/25 10:47 Heparin Sodium 5,000 Units/Ml Vial SUB-Q Not Given Q12HR RAVI Dextrose 1,000 mls @ 100 mls/hr 10/02/25 16:16 Dextrose 5% 1,000 Ml IVPB PRN PRN Hypoglycemia Protocol Piperacillin Sod/Tazobactam 50 mls @ 100 mls/hr 10/03/25 23:00 10/04/25 06:39 Sod 2.25 gm/ Sodium Chloride IVPB 100 mls/hr Q8H RAVI Administration Albumin Human 50 mls @ 999 mls/hr 10/04/25 01:23 Albutein IVPB 11/03/25 01:22 Q10M PRN HYPOTENSION Vancomycin HCl 500 mg in 100 mls @ 100 mls/hr 10/04/25 18:00 Vancomycin 500 Mg/Ns 100 Ml IVPB 10/04/25 18:59 ONCE ONE Insulin Aspart 2 - 5 units 10/02/25 17:00 10/04/25 13:41 Insulin Aspart (*Bkc) 100 Units/Ml SUB-Q Not Given TIDWM [facility] Protocol Pantoprazole Sodium 20 mg 10/02/25 09:00 10/04/25 13:39 Pantoprazole Sod Sesquihydrate 20 Mg Tab PO Not Given QAM [facility] Ticagrelor 90 mg 10/02/25 21:00 10/03/25 21:32 Ticagrelor 90 Mg Tablet PO Not Given HS [facility] Vancomycin HCl 1 each 10/02/25 11:06 Vancomycin For Hemodialysis IVPB PRN PRN Vancomycin Protocol Venlafaxine HCl 150 mg 10/02/25 21:00 10/03/25 21:32 Venlafaxine Hcl Xr 75 Mg Cap.Er.24h PO Not Given HS [facility] Radiology Results: ITS Impressions Head CT 10/02/25 07:24 IMPRESSION: 1. No acute intracranial findings. Chest/Abdomen/Pelvis CTA 10/02/25 07:31 IMPRESSION: 1. No pulmonary embolus. 2. Small pericardial effusion. 3. Pancolitis. Labs Labs: Laboratory Tests 10/04/25 04:53 10/04/25 04:53 Calcium 9.8 Phosphorus 5.9 H Magnesium 2.0 Total Bilirubin 0.5 AST 23 ALT 11 Alkaline Phosphatase 126 Total Protein 6.6 Albumin 3.5 Random Vancomycin 23.5 H Microbiology 10/02/25 00:58 Blood Blood Culture - Preliminary 10/02/25 00:58 Blood Blood Culture - Preliminary
--- NOTE | 2025-10-04 13:39 | P.PNIM_ITS ---
Assessment and Plan Assessment and Plan (1) UTI (urinary tract infection): Code(s): N39.0 - Urinary tract infection, site not specified Status: Acute Assessment and Plan: Blood and urine culture and IV antibiotic. Blood culture no growth to date. On vancomycin and Zosyn Leukocytosis improving No UA done showed no UTI will get straight cath to get a urine sample. (2) AMS (altered mental status): Code(s): R41.82 - Altered mental status, unspecified Status: Inactive Assessment and Plan: Most likely from urine tract infection. Continue to monitor behavioral issues. family reports recurrent stroke on dapt now. will get mri and consult neurology (3) End-stage renal disease on hemodialysis: Code(s): N18.6 - End stage renal disease; Z99.2 - Dependence on renal dialysis Status: Acute Assessment and Plan: Continue hemodialysis as scheduled. (4) History of CVA (cerebrovascular accident): Code(s): Z86.73 - Personal history of transient ischemic attack (TIA), and cerebral infarction without residual deficits Status: Chronic Assessment and Plan: Stable, continue current treatment Plan 65-year-old female brought via EMS for altered mental status. She is alert and oriented x1 at baseline. Patient had abnormal vital signs including blood pressure of 70/40 and oxygen saturation of 77% after returning from dialysis. She has significant medical history of stroke after Thanksgiving resulting in her decrease in mental status just released from [facility] to [facility]. CT head with no acute intracranial abnormality. CTA chest abdomen pelvis with small pericardial effusion and pancolitis. Started on IV Zosyn. Labs revealed leukocytosis of 17.4 hemoglobin of 10.9 platelet of 225. Metabolic panel demonstrated minimal changes compared to patient's baseline. D-dimer 3.3 CRP 6.9 flu COVID RSV was negative. Patient treated for pancolitis with IV Zosyn. Code status DNR. DVT prophylaxis heparin Subjective Date/time seen: 10/04/25 13:39 Interval history: No overnight events. Attempts to remove dialysis catheter per nursing staff. Patient remains confused. Underwent dialysis today. Review of Systems Review of Systems: All systems reviewed & are unremarkable except as noted in HPI and below (the history and physical exam.) Exam Narrative: GENERAL: No acute distress. HEAD: Normocephalic, atraumatic. EYES: PERRLA and EOMI. NECK: Supple. No adenopathy or masses. No carotid bruits or JVD CHEST: Clear to auscultation. No respiratory distress. No wheezes rales or rhonchi HEART: Regular rhythm. No murmur heard. Normal peripheral pulses. ABDOMEN: Soft, nontender, nondistended, normal active bowel sounds. BACK: No abnormalities. Loose, mildly bloody stool present in depends. EXTREMITIES: Normal range of motion. No edema. SKIN: Warm, dry, no rash. NEURO: Alert and awake PSYCH: Normal mood and affect Objective Data Vital Signs Vital Signs: Vital Signs - 24 hr 10/03/25 14:00 10/03/25 16:00 10/03/25 18:14 Temperature 97.8 F Pulse Rate 79 90 90 Respiratory Rate 12 Blood Pressure 93/51 L Pulse Oximetry 100 Oxygen Delivery 10/03/25 20:00 10/03/25 20:00 10/03/25 21:23 Temperature 97.5 F L Pulse Rate 84 80 Respiratory Rate 16 Blood Pressure 112/53 L Pulse Oximetry 100 Oxygen Delivery Room Air 10/04/25 00:00 10/04/25 04:00 10/04/25 05:55 Temperature 97.5 F L Pulse Rate 83 82 87 Respiratory Rate 16 Blood Pressure 114/61 Pulse Oximetry 100 Oxygen Delivery 10/04/25 08:00 10/04/25 08:50 10/04/25 08:57 Temperature 99.1 F Pulse Rate 89 89 83 Respiratory Rate 16 Blood Pressure 126/71 130/69 Pulse Oximetry 100 Oxygen Delivery 10/04/25 09:15 10/04/25 09:30 10/04/25 09:45 Temperature Pulse Rate 90 89 91 Respiratory Rate Blood Pressure 114/73 118/75 126/70 Pulse Oximetry Oxygen Delivery 10/04/25 10:00 10/04/25 10:15 10/04/25 10:30 Temperature Pulse Rate 93 100 99 Respiratory Rate Blood Pressure 118/73 117/69 114/69 Pulse Oximetry Oxygen Delivery 10/04/25 10:45 10/04/25 11:00 10/04/25 11:15 Temperature Pulse Rate 96 88 101 H Respiratory Rate Blood Pressure 126/72 127/74 121/71 Pulse Oximetry Oxygen Delivery 10/04/25 11:30 10/04/25 11:45 10/04/25 12:00 Temperature Pulse Rate 100 88 102 H Respiratory Rate Blood Pressure 109/73 126/70 115/71 Pulse Oximetry Oxygen Delivery 10/04/25 12:15 10/04/25 12:27 10/04/25 12:35 Temperature 99.3 F Pulse Rate 100 99 93 Respiratory Rate 16 Blood Pressure 122/75 116/71 131/72 Pulse Oximetry 99 Oxygen Delivery Intake/Output Intake/Output: Intake & Output 10/01/25 10/02/25 10/03/25 10/04/25 23:59 23:59 23:59 23:59 Intake Total 1650 50 218 Output Total 0 0 0 Balance 0 1650 50 218 Meds/Results Medications: Active Medications Generic Name Dose Route Start Last Admin Trade Name Freq PRN Reason Stop Dose Admin Aspirin 81 mg 10/02/25 12:25 10/03/25 11:50 Aspirin 81 Mg Enteric Tablet PO Not Given QAM [facility] Atorvastatin Calcium 80 mg 10/02/25 12:25 10/03/25 11:50 Atorvastatin 40 Mg Tablet PO Not Given DAILY RAVI Carvedilol 25 mg 10/02/25 17:00 10/03/25 18:14 Carvedilol 25 Mg Tablet PO Not Given BIDWM [facility] Cinacalcet 30 mg 10/02/25 12:20 10/03/25 11:51 Cinacalcet 30 Mg Tablet PO Not Given QAM [facility] Dextrose 12.5 gm 10/02/25 16:16 Dextrose 50% 25 Gm/50 Ml Syringe IV PUSH PRN PRN Hypoglycemia Protocol Epoetin Isac-epbx 4,000 units 10/04/25 18:00 10/04/25 09:54 Epoetin Isac-Epbx 4,000 Units/Ml Vial IV PUSH 10/04/25 18:01 4,000 units ONCE ONE Administration Folic Acid 1 mg 10/02/25 12:25 10/03/25 11:51 Folic Acid 1 Mg Tablet PO Not Given DAILY RAVI Glucagon 1 mg 10/02/25 16:16 Glucagon For Inj 1 Mg Vial IM PRN PRN Hypoglycemia Protocol Glucose 15 gm 10/02/25 16:16 Glucose Oral Gel 15 Gm Of Glucse In 37.5 Gm Tube PO PRN PRN Hypoglycemia Protocol Heparin Sodium (Porcine) 5,000 units 10/02/25 11:30 10/04/25 10:47 Heparin Sodium 5,000 Units/Ml Vial SUB-Q Not Given Q12HR RAVI Dextrose 1,000 mls @ 100 mls/hr 10/02/25 16:16 Dextrose 5% 1,000 Ml IVPB PRN PRN Hypoglycemia Protocol Piperacillin Sod/Tazobactam 50 mls @ 100 mls/hr 10/03/25 23:00 10/04/25 06:39 Sod 2.25 gm/ Sodium Chloride IVPB 100 mls/hr Q8H RAVI Administration Albumin Human 50 mls @ 999 mls/hr 10/04/25 01:23 Albutein IVPB 11/03/25 01:22 Q10M PRN HYPOTENSION Vancomycin HCl 500 mg in 100 mls @ 100 mls/hr 10/04/25 18:00 Vancomycin 500 Mg/Ns 100 Ml IVPB 10/04/25 18:59 ONCE ONE Insulin Aspart 2 - 5 units 10/02/25 17:00 10/04/25 10:46 Insulin Aspart (*Bkc) 100 Units/Ml SUB-Q Not Given TIDWM [facility] Protocol Pantoprazole Sodium 20 mg 10/02/25 09:00 10/03/25 11:51 Pantoprazole Sod Sesquihydrate 20 Mg Tab PO Not Given QAM [facility] Ticagrelor 90 mg 10/02/25 21:00 10/03/25 21:32 Ticagrelor 90 Mg Tablet PO Not Given HS [facility] Vancomycin HCl 1 each 10/02/25 11:06 Vancomycin For Hemodialysis IVPB PRN PRN Vancomycin Protocol Venlafaxine HCl 150 mg 10/02/25 21:00 10/03/25 21:32 Venlafaxine Hcl Xr 75 Mg Cap.Er.24h PO Not Given HS [facility] Radiology Results: ITS Impressions Head CT 10/02/25 07:24 IMPRESSION: 1. No acute intracranial findings. Chest/Abdomen/Pelvis CTA 10/02/25 07:31 IMPRESSION: 1. No pulmonary embolus. 2. Small pericardial effusion. 3. Pancolitis. Labs Labs: Laboratory Results - last 24 hr 10/03/25 10/03/25 10/04/25 16:48 19:23 04:53 WBC 11.2 H RBC 3.65 L Hgb 10.6 L Hct 33.6 L MCV 92.1 MCH 29.0 MCHC 31.5 L RDW 15.5 H Plt Count 270 MPV 11.3 H Immature Gran % (Auto) 0.3 Neut % (Auto) 58.3 Lymph % (Auto) 21.9 [place] % (Auto) 12.5 H Eos % (Auto) 5.9 H Baso % (Auto) 1.1 Lymph # (Auto) 2.44 [place] # (Auto) 1.4 H Eos # (Auto) 0.7 H Baso # (Auto) 0.1 Abs Immat Gran (auto) 0.03 Absolute Neuts (auto) 6.5 Absolute Nucleated RBC 0.000 Nucleated RBC % 0.0 Sodium 138 Potassium 3.6 Chloride 102 Carbon Dioxide 20 L Anion Gap 16 H BUN 47 H Creatinine 10.94 H Estim Creat Clear Calc 4 Estimated GFR 4 L Glucose 71 POC Capillary Glucose 95 101 Calcium 9.8 Phosphorus 5.9 H Magnesium 2.0 Total Bilirubin 0.5 AST 23 ALT 11 Alkaline Phosphatase 126 Total Protein 6.6 Albumin 3.5 Random Vancomycin 23.5 H 10/04/25 10/04/25 07:40 12:47 WBC RBC Hgb Hct MCV MCH MCHC RDW Plt Count MPV Immature Gran % (Auto) Neut % (Auto) Lymph % (Auto) [place] % (Auto) Eos % (Auto) Baso % (Auto) Lymph # (Auto) [place] # (Auto) Eos # (Auto) Baso # (Auto) Abs Immat Gran (auto) Absolute Neuts (auto) Absolute Nucleated RBC Nucleated RBC % Sodium Potassium Chloride Carbon Dioxide Anion Gap BUN Creatinine Estim Creat Clear Calc Estimated GFR Glucose POC Capillary Glucose 79 94 Calcium Phosphorus Magnesium Total Bilirubin AST ALT Alkaline Phosphatase Total Protein Albumin Random Vancomycin
--- NOTE | 2025-10-04 16:40 | PC.NURSE ---
st cath done but unable to collect but 5ml and lab only able to do urine culture and will not be able to do the urinalysis due to not enough urien. Patient is a dialysis patient and does not void much .
[2025-10-04] MEDS: VANCOMYCIN 500 MG/NS 100 ML 500 MG/100 ML BAG 100 MG IVPB (18:20)
[2025-10-04] MEDS: TICAGRELOR 90 MG TABLET PO (20:53)
[2025-10-04] MEDS: VENLAFAXINE HCL XR 75 MG CAP.ER.24H 150 MG PO (20:53)
[2025-10-05] VITALS (10 sets, daily range): BP systolic 100–111; BP diastolic 50–57; PULSE 78–90; RESP 16; TEMP 36.3; O2SAT 91–100
--- NOTE | 2025-10-05 00:31 | PC.NURSE ---
Resident AOX1 on RA was noted with having Temp:99.7f. Provider Kristina Guthrie was notified and she recommended to monitor as she is getting her antibiotics and her blood and Urine C/S were sent.Will continue to monitor and endorse it accordingly.
[2025-10-05 06:53] LABS: Hematocrit 32.3 % (37.0-47.0); Hemoglobin 10.3 g/dL (12.0-15.0); Immature Granulocyte Percent A 0.4 % (0-0.5); Lymphocytes Absolute Auto 2.45 K/mm3 (0.9-3.2); Mean Corpuscular HGB Conc 31.9 g/dl (32-36); Mean Corpuscular Hemoglobin 28.9 pg (26-34); Mean Corpuscular Volume 90.5 fl (80-100); Nucleated Red Blood Cells Absolute Auto 0.000 K/mm3 (0.0-0.012); Nucleated Red Blood Cells Perc 0.0 % (0.0-0.2); Platelet Count Result 279 k/mm3 (150-375); Red Blood Count 3.57 M/mm3 (4.2-5.4); White Blood Count 10.5 K/mm3 (4.5-10.0)
[2025-10-05 07:26] LABS: Alanine Aminotransferase 14 U/L (6-35); Albumin Level 3.4 g/dL (3.5-5.1); Alkaline Phosphatase 135 U/L (38-126); Anion Gap 7 mmol/L (4-12); Aspartate Amino Transferase 26 U/L (14-36); Bilirubin,Total 0.5 mg/dL (0.2-1.3); Blood Urea Nitrogen 24 mg/dL (7-17); Calcium 10.2 mg/dL (8.4-10.2); Carbon Dioxide 30 mmol/L (22-30); Chloride 98 mmol/L (98-107); Estimated CRCL calculation 7 ml/min; Estimated Glomerular Filt Rate 6; Glucose 90 mg/dL (65-110); Magnesium 2.0 mg/dL (1.6-2.3); Sodium 135 mmol/L (137-145); Total Protein 6.6 g/dL (6.3-8.2)
[2025-10-05 07:30] LABS: Potassium 2.8 mmol/L (3.4-5.0)
[2025-10-05] MEDS: ATORVASTATIN 40 MG TABLET 80 MG PO (08:26)
[2025-10-05] MEDS: FOLIC ACID 1 MG TABLET PO (08:26)
[2025-10-05] MEDS: PANTOPRAZOLE SOD SESQUIHYDRATE 20 MG TAB PO (08:27)
[2025-10-05] MEDS: CINACALCET 30 MG TABLET PO (08:28)
[2025-10-05] MEDS: ASPIRIN 81 MG ENTERIC TABLET PO (08:28)
--- NOTE | 2025-10-05 09:16 | PCPTNOTE ---
attempted PT eval, pt only able to answer in one word answers, A&Ox1 and wearing soft mittens restraints, declines PT eval, per care coordination note the family is considering hospice, will follow as appropriate
--- NOTE | 2025-10-05 11:45 | P.PNNP_ITS ---
Progress Note: A&P Assessment and Plan (1) End stage renal disease: Code(s): N18.6 - End stage renal disease Status: Chronic Assessment and Plan: * HD tomorrow * continue holiday (/) dialysis schedule of Tue//Tuesday this and next week * follow electrolytes, volume status, and clearance (2) Altered mental status: Code(s): R41.82 - Altered mental status, unspecified Status: Acute Assessment and Plan: * significant improvement noted * initially noted per nursing facility and in ER on admisison * due to infection? (elevated WBC noted on admission) * follow culture data - blood cultures negative to date - UA/urine culture not done - ordered yesterday * admission CT scan with pancolitis * on antibiotics * follow trend of mentation (3) History of CVA (cerebrovascular accident): Code(s): Z86.73 - Personal history of transient ischemic attack (TIA), and cerebral infarction without residual deficits Status: Chronic Assessment and Plan: * as noted earlier this month * s/p hospitalization at [facility] and [facility] with imaging noted: * head CT which showed chronic infarcts but no acute hemorrhage * MRI of the brain revealed a new left frontal subcortical infarct with evidence of chronic small vessel ischemic changes and prior right parietal infarct * MRI/MRA of the brain and neck demonstrated 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, occlusion of the superior left intracranial vertebral artery, and multifocal stenosis of the anterior and posterior circulations, raising concern for intracranial atherosclerotic disease * diagnostic cerebral angiogram showed multiple alternating areas of moderate to severe stenosis with a beading pattern in both anterior and posterior circulations representing multifocal intracranial atherosclerosis * likely playing a role with #2 * on ticagrelor in addition to aspirin with high intensity statin therapy * Neurology consulted * continue supportive therapy (4) Anemia: Qualifiers: Anemia type: due to chronic kidney disease Chronic kidney disease stage: stage 5 (GFR < 15), not on chronic dialysis Qualified Code(s): N18.5 - Chronic kidney disease, stage 5; D63.1 - Anemia in chronic kidney disease Code(s): D64.9 - Anemia, unspecified Status: Acute Assessment and Plan: * due to ESRD * Epogen with dialysis * follow trend of H/H (5) Hypertension: Qualifiers: Hypertension type: secondary to other renal disorders Qualified Code(s): I15.1 - Hypertension secondary to other renal disorders; N28.89 - Other specified disorders of kidney and ureter Code(s): I10 - Essential (primary) hypertension Status: Chronic Assessment and Plan: * reasonable control at this time * follow trend of hemodynamics (6) Diabetes: Code(s): E11.9 - Type 2 diabetes mellitus without complications Status: Chronic Assessment and Plan: * follow accu-cheks * glycemic control per hospitalist Will continue to follow. L Subjective Date/time seen: 10/05/25 11:45 Interval history: Follow-up for end stage renal disease on hemodialysis. Tolerated dialysis treatment yesterday without any issues or problems; mentation has significantly improved at the time of my visit -- she is more awake and conversive and eating lunch when seen; family at bedside and agree with the improvement in her mental status in comparison to admission; no apparent distress noted. Exam 2 Narrative: General: elderly but WD/WN female in NAD Heart: normal S1 and S2; no rub Lungs: clear to auscultation Abdomen: soft, nontender, nondistended, positive bowel sounds Extremities: no cyanosis or clubbing; no edema Skin: warm and intact Objective Data Vital Signs Vital Signs: Vital Signs Temp Pulse Resp BP Pulse Ox O2 Del Method 10/05/25 08:26 87 10/05/25 08:00 84 10/05/25 05:50 97.4 F L 84 16 108/57 L 100 10/05/25 04:00 81 10/05/25 00:00 90 10/04/25 23:32 99.7 F H 10/04/25 21:40 99.4 F 120 H 18 110/58 L 100 10/04/25 20:50 120 H 18 100 Room Air 10/04/25 20:00 118 H 10/04/25 17:36 122 H Intake/Output Intake/Output: Intake & Output 10/02/25 10/03/25 10/04/25 10/05/25 23:59 23:59 23:59 23:59 Intake Total 1650 50 1588 770 Output Total 0 5 Balance 1650 50 1583 770 Meds/Results Medications: Active Medications Generic Name Dose Route Start Last Admin Trade Name Freq PRN Reason Stop Dose Admin Aspirin 81 mg 10/02/25 12:25 10/05/25 08:28 Aspirin 81 Mg Enteric Tablet PO 81 mg QAM RAVI Administration Atorvastatin Calcium 80 mg 10/02/25 12:25 10/05/25 08:26 Atorvastatin 40 Mg Tablet PO 80 mg DAILY RAVI Administration Carvedilol 25 mg 10/02/25 17:00 10/05/25 16:25 Carvedilol 25 Mg Tablet PO 25 mg BIDWM RAVI Administration Cinacalcet 30 mg 10/02/25 12:20 10/05/25 08:28 Cinacalcet 30 Mg Tablet PO 30 mg QAM RAVI Administration Dextrose 12.5 gm 10/02/25 16:16 Dextrose 50% 25 Gm/50 Ml Syringe IV PUSH PRN PRN Hypoglycemia Protocol Folic Acid 1 mg 10/02/25 12:25 10/05/25 08:26 Folic Acid 1 Mg Tablet PO 1 mg DAILY RAVI Administration Glucagon 1 mg 10/02/25 16:16 Glucagon For Inj 1 Mg Vial IM PRN PRN Hypoglycemia Protocol Glucose 15 gm 10/02/25 16:16 Glucose Oral Gel 15 Gm Of Glucse In 37.5 Gm Tube PO PRN PRN Hypoglycemia Protocol Heparin Sodium (Porcine) 5,000 units 10/02/25 11:30 10/05/25 08:28 Heparin Sodium 5,000 Units/Ml Vial SUB-Q 5,000 units Q12HR RAVI Administration Dextrose 1,000 mls @ 100 mls/hr 10/02/25 16:16 Dextrose 5% 1,000 Ml IVPB PRN PRN Hypoglycemia Protocol Piperacillin Sod/Tazobactam 50 mls @ 100 mls/hr 10/03/25 23:00 10/05/25 12:21 Sod 2.25 gm/ Sodium Chloride IVPB Infused Q8H RAVI Infusion Albumin Human 50 mls @ 999 mls/hr 10/04/25 01:23 Albutein IVPB 11/03/25 01:22 Q10M PRN HYPOTENSION Insulin Aspart 2 - 5 units 10/02/25 17:00 10/05/25 12:08 Insulin Aspart (*Bkc) 100 Units/Ml SUB-Q Not Given TIDWM [facility] Protocol Pantoprazole Sodium 20 mg 10/02/25 09:00 10/05/25 08:27 Pantoprazole Sod Sesquihydrate 20 Mg Tab PO 20 mg QAM RAVI Administration Ticagrelor 90 mg 10/02/25 21:00 10/04/25 20:53 Ticagrelor 90 Mg Tablet PO 90 mg HS RAVI Administration Vancomycin HCl 1 each 10/02/25 11:06 Vancomycin For Hemodialysis IVPB PRN PRN Vancomycin Protocol Venlafaxine HCl 150 mg 10/02/25 21:00 10/04/25 20:53 Venlafaxine Hcl Xr 75 Mg Cap.Er.24h PO 150 mg HS RAVI Administration Radiology Results: ITS Impressions Head CT 10/02/25 07:24 IMPRESSION: 1. No acute intracranial findings. Chest/Abdomen/Pelvis CTA 10/02/25 07:31 IMPRESSION: 1. No pulmonary embolus. 2. Small pericardial effusion. 3. Pancolitis. Labs Labs: Laboratory Tests 10/05/25 05:41 10/05/25 05:41 Calcium 10.2 Magnesium 2.0 Total Bilirubin 0.5 AST 26 ALT 14 Alkaline Phosphatase 135 H Total Protein 6.6 Albumin 3.4 L Microbiology 10/02/25 00:58 Blood Blood Culture - Preliminary 10/02/25 00:58 Blood Blood Culture - Preliminary
[2025-10-05] MEDS: PIPERACILLIN/TAZOBACTAM SOD 2.25 GM in SODIUM CHLORIDE 0.9% IV 50 ML 100 ML IVPB ×2 (11:51→20:57)
[2025-10-05] MEDS: POTASSIUM CHLORIDE 20 MEQ ER TABLET 40 MEQ PO (11:51)
--- NOTE | 2025-10-05 14:08 | P.CONNEU_ITS ---
Assessment and Plan Assessment and plan (1) Left homonymous hemianopsia: Code(s): H53.462 - Homonymous bilateral field defects, left side Status: Acute Assessment and Plan: this was diagnosed in March 2025 due to infarct in the right parieto-occipital area. She has had MRI of the brain and MR angiograms done at [facility] earlier this month and was found to have significant intracranial disease and was transferred to [facility] where some adjustments were suggested in the medications from the point of view of stroke prevention. I noted that she is on aspirin 81 mg a day and Plavix 75 mg a day and atorvastatin 80 mg a day. (2) History of CVA (cerebrovascular accident): Code(s): Z86.73 - Personal history of transient ischemic attack (TIA), and cerebral infarction without residual deficits Status: Chronic (3) Type 2 diabetes mellitus with diabetic chronic kidney disease: Code(s): E11.22 - Type 2 diabetes mellitus with diabetic chronic kidney disease Status: Chronic (4) Metabolic encephalopathy: Code(s): G93.41 - Metabolic encephalopathy Status: Acute (5) End-stage renal disease on hemodialysis: Code(s): N18.6 - End stage renal disease; Z99.2 - Dependence on renal dialysis Status: Acute Plan The patient is on hemodialysis. She presented with hypotension and possibly underlying sepsis. This does pose the of watershed infarcts prep patient already has previous history of stroke and is high risk for the point of view of cerebrovascular disease. Currently she has perseveration and features that could be either metabolic in nature or she may have underlying another stroke. She was was worked up at a [facility] about 10 12 days ago and has had some further workup done at [facility]. She has had several workup done earlier this year. I will suggest to continue the antiplatelets and statins for now and address the problem of hypertension new problems and hypoxemia and sepsis to the best possible to reduce the risk of watershed infarcts which can occur in somebody with intercurrent disease as we know about her. An MRI of the brain has been ordered I shall be glad to review that. Consult date: 10/05/25 HPI: Gena Pierre is a 65 year old female With history of chronic kidney disease presented to the hospital with altered mental status. her blood pressure was 90/40 and oxygen saturation was 77% white cell count high at 17.2. The patient has been on dialysis for chronic kidney disease. Also history of diabetes mellitus. She has had a CVA earlier this year and I saw her in hospital on 04/04/2025 and noted that she had left homonymous hemianopsia. Her CT scan of brain has shown acute infarct in the right cerebral hemisphere in the parietal occipital region. The patient has been on aspirin, Plavix and Lipitor 80 mg a day. Recently she was hospitalized again at [facility] where she was transferred to [facility] in view of significant cerebrovascular disease. The consultation note from the new neurologist at [place] was available and was indeed helpful. 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 No intervention was done however medications were adjusted while she was in [facility]. According to the family members she does have a normal mental status when she is not sick. They are aware of the left homonymous hemianopsia which had explained to them in March 2025. She is also suspected of urinary tract infection. Today her blood pressure improved to 108/57. Review of Systems 2 Review of Systems: ROS unobtainable: Yes unobtainable due to mental status PMFSH Past Medical History Medical History (Updated 10/05/25 @ 14:14 by James Millan MD) Left homonymous hemianopsia Metabolic encephalopathy Fall Acute right arterial ischemic stroke, MCA (middle cerebral artery) Chronic kidney disease, stage 5 Cancer of right breast (2004) Status post chemotherapy and mastectomy. Diabetic peripheral neuropathy Obesity (BMI 30-39.9) Essential hypertension End-stage renal disease on hemodialysis Chronic kidney disease due to hypertension and diabetes with final insult kidneys with severe rhabdomyolysis March 2023. Vitamin D deficiency Type 2 diabetes mellitus Anemia Normal colonoscopy (07/2011) Primary hyperparathyroidism (11/2020) Vaginal polyp Depression Anxiety Surgical History Surgical History History of right mastectomy History of hysteroscopy (2020) Family History Family History Mother Family history of lung cancer Hypertension Grandparent Cerebrovascular accident Diabetes mellitus Hypertension Son Family history of cardiovascular disease Heart disease Hypertension Father Unknown family medical history Social History Social History Social History: Surrogate decision maker: Adry Smith (sister). Code status: Full code. Smoking packs per day: 0.5 Smoking cigarettes per day: 10.0 Years smoked: 20 Smoking pack-years: 10.00 Smoking status: Former smoker Second hand tobacco smoke exposure: Yes Alcohol intake: never Alcohol use details: Very seldom Substance use: never Substance use type: does not use Lack of Transportation: No Lack of Food: Never True Current Housing: I Have Housing Concerned About Future Housing: No Difficulty Paying Gas/Electric Bills: No Difficulty Paying for Meds: No Currently Unemployed: No Education: High School Diploma/GED Difficulty w/ Childcare or Family Care: No Additional living arrangements comments: Lives in [place]. Additional occupation/education comments: Retired. Sexual Orientation (if Verbalized by the Patient): Straight or Heterosexual Spiritual care concerns: No Agree to blood products: Yes Meds Home Medications and Allergies Home Medications ?Medication ?Instructions ?Recorded ?Confirmed ?Type aspirin 81 mg tablet,delayed 81 mg PO QAM #30 tabs 03/0310/02/25 Rx release cinacalcet 30 mg tablet (Sensipar) 30 mg PO Q24H #30 t abs 04/13/25 10/02/25 Rx atorvastatin 40 mg tablet 80 mg PO DAILY 10/02/2509/10 History carvedilol 25 mg tablet (Coreg) 25 mg PO BID 10/02/25 10/02/25 History folic acid 1 mg tablet 1 mg PO DAILY 10/02/2510/02 History ticagrelor 90 mg tablet 90 mg PO HS 10/02/25 5 History venlafaxine 150 mg 150 mg PO HS 10/02/25 History capsule,extended release 24 hr (Effexor XR) Allergies Allergy/AdvReac Type Severity Reaction Status Date / Time lactose AdvReac Mild Gastrointestinal Verified 10/02/25 13:21 Upset Vital Signs Vital Signs - 24 hr 10/04/25 16:00 10/04/25 17:36 10/04/25 20:00 Temperature Pulse Rate 112 H 122 H 118 H Respiratory Rate Blood Pressure Pulse Oximetry Oxygen Delivery 10/04/25 20:50 10/04/25 21:40 10/04/25 23:32 Temperature 99.4 F 99.7 F H Pulse Rate 120 H 120 H Respiratory Rate 18 18 Blood Pressure 110/58 L Pulse Oximetry 100 100 Oxygen Delivery Room Air 10/05/25 00:00 10/05/25 04:00 10/05/25 05:50 Temperature 97.4 F L Pulse Rate 90 81 84 Respiratory Rate 16 Blood Pressure 108/57 L Pulse Oximetry 100 Oxygen Delivery 10/05/25 08:00 10/05/25 08:26 Temperature Pulse Rate 84 87 Respiratory Rate Blood Pressure Pulse Oximetry Oxygen Delivery Exam 2 Narrative: Fully conscious alert however she is the not able to tell me the name of her family members 2 of them were present fairly close to her. She seems to have perseveration. No aphasia or dysarthria however she appears to be encephalopathic. No evidence for hallucinations or delusions noted. Examination head and neck shows no evidence of external trauma. No nuchal rigidity. No carotid bruit. Cranial nerves visual rodriguez could not be reliably examined. She probably still has left homonymous hemianopsia since he pays more attention to the things shown the right field of vision. Clear facial asymmetry. Tongue was midline. Other cranials are grossly normal. Motor system nearly normal strength in the left upper and lower limb. It was noted that she was thought to have manic mild weakness the left upper and lower limb on the previous examination done earlier this month at [facility]. Deep tendon reflexes did not show any significant asymmetry. No involuntary movements are seen. Sensations are grossly intact but she is unable to participate in a detailed sensory examination. Results Labs 10/05/25 05:41 10/05/25 05:41 Labs: Short CBC 10/05/25 Range/Units 05:41 WBC 10.5 H (4.5-10.0) K/mm3 Hgb 10.3 L (12.0-15.0) g/dL Hct 32.3 L (37.0-47.0) % Plt Count 279 (150-375) k/mm3 [facility] 10/05/25 05:41 Sodium 135 L Potassium 2.8 L* Chloride 98 Carbon Dioxide 30 BUN 24 H D Creatinine 6.56 H Glucose 90 Calcium 10.2 Liver Function 10/05/25 Range/Units 05:41 Total Bilirubin 0.5 (0.2-1.3) mg/dL AST 26 (14-36) U/L ALT 14 (6-35) U/L Alkaline Phosphatase 135 H (38-126) U/L Albumin 3.4 L (3.5-5.1) g/dL
--- NOTE | 2025-10-05 15:27 | PM.IMPN2 ---
Assessment and Plan Assessment and Plan (1) UTI (urinary tract infection): Code(s): N39.0 - Urinary tract infection, site not specified Status: Acute Assessment and Plan: Blood and urine culture and IV antibiotic. Blood culture no growth to date. On vancomycin and Zosyn Leukocytosis improving No UA done showed no UTI Straight cath to get urine sample obtained 10/04/2025 (2) AMS (altered mental status): Code(s): R41.82 - Altered mental status, unspecified Status: Inactive Assessment and Plan: Most likely from urine tract infection. Continue to monitor behavioral issues. family reports recurrent stroke on dapt now. will get mri and consult neurology Await MRI (3) End-stage renal disease on hemodialysis: Code(s): N18.6 - End stage renal disease; Z99.2 - Dependence on renal dialysis Status: Acute Assessment and Plan: Continue hemodialysis as scheduled. (4) History of CVA (cerebrovascular accident): Code(s): Z86.73 - Personal history of transient ischemic attack (TIA), and cerebral infarction without residual deficits Status: Chronic Assessment and Plan: Stable, continue current treatment Plan 65-year-old female brought via EMS for altered mental status. She is alert and oriented x1 at baseline. Patient had abnormal vital signs including blood pressure of 70/40 and oxygen saturation of 77% after returning from dialysis. She has significant medical history of stroke after Thanksgiving resulting in her decrease in mental status just released from [facility] to [facility]. CT head with no acute intracranial abnormality. CTA chest abdomen pelvis with small pericardial effusion and pancolitis. Started on IV Zosyn. Labs revealed leukocytosis of 17.4 hemoglobin of 10.9 platelet of 225. Metabolic panel demonstrated minimal changes compared to patient's baseline. D-dimer 3.3 CRP 6.9 flu COVID RSV was negative. Patient treated for pancolitis with IV Zosyn. Code status DNR. DVT prophylaxis heparin Subjective Date/time seen: 10/05/25 15:27 Interval history: No overnight events. Patient more awake and conversive today. Family at bedside. Discussed with them. Review of Systems Review of Systems: All systems reviewed & are unremarkable except as noted in HPI and below (the history and physical exam.) Exam Narrative: GENERAL: No acute distress. HEAD: Normocephalic, atraumatic. EYES: PERRLA and EOMI. NECK: Supple. No adenopathy or masses. No carotid bruits or JVD CHEST: Clear to auscultation. No respiratory distress. No wheezes rales or rhonchi HEART: Regular rhythm. No murmur heard. Normal peripheral pulses. ABDOMEN: Soft, nontender, nondistended, normal active bowel sounds. BACK: No abnormalities. EXTREMITIES: Normal range of motion. No edema. Left-sided weakness SKIN: Warm, dry, no rash. NEURO: Alert and awake PSYCH: Normal mood and affect Objective Data Vital Signs Vital Signs: Vital Signs - 24 hr 10/04/25 16:00 10/04/25 17:36 10/04/25 20:00 Temperature Pulse Rate 112 H 122 H 118 H Respiratory Rate Blood Pressure Pulse Oximetry Oxygen Delivery 10/04/25 20:50 10/04/25 21:40 10/04/25 23:32 Temperature 99.4 F 99.7 F H Pulse Rate 120 H 120 H Respiratory Rate 18 18 Blood Pressure 110/58 L Pulse Oximetry 100 100 Oxygen Delivery Room Air 10/05/25 00:00 10/05/25 04:00 10/05/25 05:50 Temperature 97.4 F L Pulse Rate 90 81 84 Respiratory Rate 16 Blood Pressure 108/57 L Pulse Oximetry 100 Oxygen Delivery 10/05/25 08:00 10/05/25 08:26 10/05/25 14:00 Temperature 97.4 F L Pulse Rate 84 87 86 Respiratory Rate 16 Blood Pressure 100/50 L Pulse Oximetry 91 Oxygen Delivery Intake/Output Intake/Output: Intake & Output 10/02/25 10/03/25 10/04/25 10/05/25 23:59 23:59 23:59 23:59 Intake Total 1650 50 1488 720 Output Total 0 5 Balance 1650 50 1483 720 Meds/Results Medications: Active Medications Generic Name Dose Route Start Last Admin Trade Name Freq PRN Reason Stop Dose Admin Aspirin 81 mg 10/02/25 12:25 10/05/25 08:28 Aspirin 81 Mg Enteric Tablet PO 81 mg QAM RAVI Administration Atorvastatin Calcium 80 mg 10/02/25 12:25 10/05/25 08:26 Atorvastatin 40 Mg Tablet PO 80 mg DAILY RAVI Administration Carvedilol 25 mg 10/02/25 17:00 10/05/25 08:26 Carvedilol 25 Mg Tablet PO 25 mg BIDWM RAVI Administration Cinacalcet 30 mg 10/02/25 12:20 10/05/25 08:28 Cinacalcet 30 Mg Tablet PO 30 mg QAM RAVI Administration Dextrose 12.5 gm 10/02/25 16:16 Dextrose 50% 25 Gm/50 Ml Syringe IV PUSH PRN PRN Hypoglycemia Protocol Folic Acid 1 mg 10/02/25 12:25 10/05/25 08:26 Folic Acid 1 Mg Tablet PO 1 mg DAILY RAVI Administration Glucagon 1 mg 10/02/25 16:16 Glucagon For Inj 1 Mg Vial IM PRN PRN Hypoglycemia Protocol Glucose 15 gm 10/02/25 16:16 Glucose Oral Gel 15 Gm Of Glucse In 37.5 Gm Tube PO PRN PRN Hypoglycemia Protocol Heparin Sodium (Porcine) 5,000 units 10/02/25 11:30 10/05/25 08:28 Heparin Sodium 5,000 Units/Ml Vial SUB-Q 5,000 units Q12HR RAVI Administration Dextrose 1,000 mls @ 100 mls/hr 10/02/25 16:16 Dextrose 5% 1,000 Ml IVPB PRN PRN Hypoglycemia Protocol Piperacillin Sod/Tazobactam 50 mls @ 100 mls/hr 10/03/25 23:00 10/05/25 11:51 Sod 2.25 gm/ Sodium Chloride IVPB 100 mls/hr Q8H RAVI Administration Albumin Human 50 mls @ 999 mls/hr 10/04/25 01:23 Albutein IVPB 11/03/25 01:22 Q10M PRN HYPOTENSION Insulin Aspart 2 - 5 units 10/02/25 17:00 10/05/25 12:08 Insulin Aspart (*Bkc) 100 Units/Ml SUB-Q Not Given TIDWM RAVI Protocol Pantoprazole Sodium 20 mg 10/02/25 09:00 10/05/25 08:27 Pantoprazole Sod Sesquihydrate 20 Mg Tab PO 20 mg QAM RAVI Administration Ticagrelor 90 mg 10/02/25 21:00 10/04/25 20:53 Ticagrelor 90 Mg Tablet PO 90 mg HS RAVI Administration Vancomycin HCl 1 each 10/02/25 11:06 Vancomycin For Hemodialysis IVPB PRN PRN Vancomycin Protocol Venlafaxine HCl 150 mg 10/02/25 21:00 10/04/25 20:53 Venlafaxine Hcl Xr 75 Mg Cap.Er.24h PO 150 mg HS RAVI Administration Radiology Results: ITS Impressions Head CT 10/02/25 07:24 IMPRESSION: 1. No acute intracranial findings. Chest/Abdomen/Pelvis CTA 10/02/25 07:31 IMPRESSION: 1. No pulmonary embolus. 2. Small pericardial effusion. 3. Pancolitis. Labs Labs: Laboratory Results - last 24 hr 10/04/25 10/04/25 10/05/25 16:42 20:07 05:41 WBC 10.5 H RBC 3.57 L Hgb 10.3 L Hct 32.3 L MCV 90.5 MCH 28.9 MCHC 31.9 L RDW 15.1 H Plt Count 279 MPV 11.5 H Immature Gran % (Auto) 0.4 Neut % (Auto) 56.2 Lymph % (Auto) 23.2 Wilkin % (Auto) 16.1 H Eos % (Auto) 3.3 Baso % (Auto) 0.8 Lymph # (Auto) 2.45 Wilkin # (Auto) 1.7 H Eos # (Auto) 0.4 H Baso # (Auto) 0.1 Abs Immat Gran (auto) 0.04 H Absolute Neuts (auto) 5.9 Absolute Nucleated RBC 0.000 Nucleated RBC % 0.0 Sodium 135 L Potassium 2.8 L* Chloride 98 Carbon Dioxide 30 Anion Gap 7 BUN 24 H D Creatinine 6.56 H Estim Creat Clear Calc 7 Estimated GFR 6 L Glucose 90 POC Capillary Glucose 90 206 H Calcium 10.2 Magnesium 2.0 Total Bilirubin 0.5 AST 26 ALT 14 Alkaline Phosphatase 135 H Total Protein 6.6 Albumin 3.4 L 10/05/25 10/05/25 07:42 11:55 WBC RBC Hgb Hct MCV MCH MCHC RDW Plt Count MPV Immature Gran % (Auto) Neut % (Auto) Lymph % (Auto) Wilkin % (Auto) Eos % (Auto) Baso % (Auto) Lymph # (Auto) Wilkin # (Auto) Eos # (Auto) Baso # (Auto) Abs Immat Gran (auto) Absolute Neuts (auto) Absolute Nucleated RBC Nucleated RBC % Sodium Potassium Chloride Carbon Dioxide Anion Gap BUN Creatinine Estim Creat Clear Calc Estimated GFR Glucose POC Capillary Glucose 100 139 H Calcium Magnesium Total Bilirubin AST ALT Alkaline Phosphatase Total Protein Albumin
[2025-10-05] MEDS: TICAGRELOR 90 MG TABLET PO (20:56)
[2025-10-05] MEDS: VENLAFAXINE HCL XR 75 MG CAP.ER.24H 150 MG PO (20:56)
[2025-10-06] VITALS (27 sets, daily range): BP systolic 94–131; BP diastolic 59–79; PULSE 62–75; RESP 16–18; TEMP 35.8–37; O2SAT 97–100
[2025-10-06] MEDS: PIPERACILLIN/TAZOBACTAM SOD 2.25 GM in SODIUM CHLORIDE 0.9% IV 50 ML 100 ML IVPB ×3 (05:12→23:48)
[2025-10-06 06:44] LABS: Hematocrit 33.8 % (37.0-47.0); Hemoglobin 10.5 g/dL (12.0-15.0); Immature Granulocyte Percent A 0.5 % (0-0.5); Lymphocytes Absolute Auto 2.67 K/mm3 (0.9-3.2); Mean Corpuscular HGB Conc 31.1 g/dl (32-36); Mean Corpuscular Hemoglobin 28.7 pg (26-34); Mean Corpuscular Volume 92.3 fl (80-100); Nucleated Red Blood Cells Absolute Auto 0.000 K/mm3 (0.0-0.012); Nucleated Red Blood Cells Perc 0.0 % (0.0-0.2); Platelet Count Result 273 k/mm3 (150-375); Red Blood Count 3.66 M/mm3 (4.2-5.4); White Blood Count 8.7 K/mm3 (4.5-10.0)
[2025-10-06 07:09] LABS: Alanine Aminotransferase 14 U/L (6-35); Albumin Level 3.4 g/dL (3.5-5.1); Alkaline Phosphatase 121 U/L (38-126); Anion Gap 8 mmol/L (4-12); Aspartate Amino Transferase 25 U/L (14-36); Bilirubin,Total 0.4 mg/dL (0.2-1.3); Blood Urea Nitrogen 28 mg/dL (7-17); Calcium 9.8 mg/dL (8.4-10.2); Carbon Dioxide 28 mmol/L (22-30); Chloride 100 mmol/L (98-107); Estimated CRCL calculation 5 ml/min; Estimated Glomerular Filt Rate 5; Glucose 81 mg/dL (65-110); Magnesium 2.0 mg/dL (1.6-2.3); Potassium 3.5 mmol/L (3.4-5.0); Sodium 136 mmol/L (137-145); Total Protein 6.4 g/dL (6.3-8.2)
--- NOTE | 2025-10-06 08:26 | PCPTNOTE ---
attempted PT eval, pt currently leaving for dialysis, will follow
--- NOTE | 2025-10-06 11:25 | P.PNNP_ITS ---
Progress Note: A&P Assessment and Plan (1) End stage renal disease: Code(s): N18.6 - End stage renal disease Status: Chronic Assessment and Plan: * HD today * continue holiday (/) dialysis schedule of Tue//Tuesday this and next week * follow electrolytes, volume status, and clearance (2) Altered mental status: Code(s): R41.82 - Altered mental status, unspecified Status: Acute Assessment and Plan: * improvement noted (but still confused) * initially noted at her nursing facility and in ER on admission * has a history of fluctuating to extremes... * due to infection? (elevated WBC noted on admission - has normalized) * follow culture data - blood cultures negative to date - urine culture negative * admission CT scan with pancolitis * on antibiotics * follow trend of mentation (3) History of CVA (cerebrovascular accident): Code(s): Z86.73 - Personal history of transient ischemic attack (TIA), and cerebral infarction without residual deficits Status: Chronic Assessment and Plan: * as noted earlier this month * s/p hospitalization at [facility] and [facility] with imaging noted: * head CT which showed chronic infarcts but no acute hemorrhage * MRI of the brain revealed a new left frontal subcortical infarct with evidence of chronic small vessel ischemic changes and prior right parietal infarct * MRI/MRA of the brain and neck demonstrated 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, occlusion of the superior left intracranial vertebral artery, and multifocal stenosis of the anterior and posterior circulations, raising concern for intracranial atherosclerotic disease * diagnostic cerebral angiogram showed multiple alternating areas of moderate to severe stenosis with a beading pattern in both anterior and posterior circulations representing multifocal intracranial atherosclerosis * likely playing a role with #2 * on ticagrelor in addition to aspirin with high intensity statin therapy * Neurology following * repeat MRI ordered * continue supportive therapy (4) Anemia: Qualifiers: Anemia type: due to chronic kidney disease Chronic kidney disease stage: stage 5 (GFR < 15), not on chronic dialysis Qualified Code(s): N18.5 - Chronic kidney disease, stage 5; D63.1 - Anemia in chronic kidney disease Code(s): D64.9 - Anemia, unspecified Status: Acute Assessment and Plan: * due to ESRD * Epogen with dialysis * follow trend of H/H (5) Hypertension: Qualifiers: Hypertension type: secondary to other renal disorders Qualified Code(s): I15.1 - Hypertension secondary to other renal disorders; N28.89 - Other specified disorders of kidney and ureter Code(s): I10 - Essential (primary) hypertension Status: Chronic Assessment and Plan: * reasonable control at this time * follow trend of hemodynamics (6) Diabetes: Code(s): E11.9 - Type 2 diabetes mellitus without complications Status: Chronic Assessment and Plan: * follow accu-cheks * glycemic control per hospitalist Will continue to follow. L Subjective Date/time seen: 10/06/25 11:25 Interval history: Follow-up for end stage renal disease on hemodialysis. Tolerating dialysis treatment at the time of my visit (seen on HD at 11:15am); mentation/confusion continues to fluctuate in general -- has mittens on due to pulling out IVs and attempted pulling at HD catheter; otherwise, appears in no apparent distress. Exam 2 Narrative: General: elderly but WD/WN female in NAD Heart: normal S1 and S2; no rub Lungs: clear to auscultation Abdomen: soft, nontender, nondistended, positive bowel sounds Extremities: no cyanosis or clubbing; no edema Skin: no rash Objective Data Vital Signs Vital Signs: Vital Signs Temp Pulse Resp BP Pulse Ox O2 Del Method 10/06/25 11:15 72 121/71 10/06/25 11:00 70 118/73 10/06/25 10:45 68 116/71 10/06/25 10:30 72 111/74 10/06/25 10:15 68 131/73 10/06/25 10:00 75 108/73 10/06/25 09:45 72 115/69 10/06/25 09:30 72 115/79 10/06/25 09:15 70 109/73 10/06/25 09:00 62 123/75 10/06/25 08:55 67 122/68 10/06/25 08:43 98.1 F 66 16 116/71 97 10/06/25 08:01 65 10/06/25 08:00 74 18 98 Room Air 10/06/25 06:00 97.4 F L 74 18 126/64 98 10/05/25 21:52 97.3 F L 78 16 111/55 L 100 10/05/25 16:25 82 10/05/25 16:00 83 Intake/Output Intake/Output: Intake & Output 10/03/25 10/04/25 10/05/25 10/06/25 23:59 23:59 23:59 23:59 Intake Total 50 1588 1060 290 Output Total 0 5 505 Balance 50 1583 1060 -215 Meds/Results Medications: Active Medications Generic Name Dose Route Start Last Admin Trade Name Freq PRN Reason Stop Dose Admin Aspirin 81 mg 10/02/25 12:25 10/06/25 13:19 Aspirin 81 Mg Enteric Tablet PO 81 mg QAM RAVI Administration Atorvastatin Calcium 80 mg 10/02/25 12:25 10/06/25 13:17 Atorvastatin 40 Mg Tablet PO 80 mg DAILY RAVI Administration Carvedilol 25 mg 10/02/25 17:00 10/06/25 13:19 Carvedilol 25 Mg Tablet PO 25 mg BIDWM RAVI Administration Cinacalcet 30 mg 10/02/25 12:20 10/06/25 13:20 Cinacalcet 30 Mg Tablet PO 30 mg QAM RAVI Administration Dextrose 12.5 gm 10/02/25 16:16 Dextrose 50% 25 Gm/50 Ml Syringe IV PUSH PRN PRN Hypoglycemia Protocol Epoetin Isac-epbx 4,000 units 10/06/25 18:00 10/06/25 11:44 Epoetin Isac-Epbx 4,000 Units/Ml Vial IV PUSH 10/06/25 18:01 4,000 units ONCE ONE Administration Folic Acid 1 mg 10/02/25 12:25 10/06/25 13:18 Folic Acid 1 Mg Tablet PO 1 mg DAILY RAVI Administration Glucagon 1 mg 10/02/25 16:16 Glucagon For Inj 1 Mg Vial IM PRN PRN Hypoglycemia Protocol Glucose 15 gm 10/02/25 16:16 Glucose Oral Gel 15 Gm Of Glucse In 37.5 Gm Tube PO PRN PRN Hypoglycemia Protocol Heparin Sodium (Porcine) 5,000 units 10/02/25 11:30 10/06/25 13:21 Heparin Sodium 5,000 Units/Ml Vial SUB-Q Not Given Q12HR RAVI Dextrose 1,000 mls @ 100 mls/hr 10/02/25 16:16 Dextrose 5% 1,000 Ml IVPB PRN PRN Hypoglycemia Protocol Piperacillin Sod/Tazobactam 50 mls @ 100 mls/hr 10/03/25 23:00 10/06/25 13:20 Sod 2.25 gm/ Sodium Chloride IVPB 100 mls/hr Q8H RAVI Administration Albumin Human 50 mls @ 999 mls/hr 10/04/25 01:23 Albutein IVPB 11/03/25 01:22 Q10M PRN HYPOTENSION Insulin Aspart 2 - 5 units 10/02/25 17:00 10/06/25 13:20 Insulin Aspart (*Bkc) 100 Units/Ml SUB-Q Not Given TIDWM [facility] Protocol Pantoprazole Sodium 20 mg 10/02/25 09:00 10/06/25 13:19 Pantoprazole Sod Sesquihydrate 20 Mg Tab PO 20 mg QAM RAVI Administration Ticagrelor 90 mg 10/02/25 21:00 10/05/25 20:56 Ticagrelor 90 Mg Tablet PO 90 mg HS RAVI Administration Venlafaxine HCl 150 mg 10/02/25 21:00 10/05/25 20:56 Venlafaxine Hcl Xr 75 Mg Cap.Er.24h PO 150 mg HS RAVI Administration Radiology Results: ITS Impressions Head CT 10/02/25 07:24 IMPRESSION: 1. No acute intracranial findings. Chest/Abdomen/Pelvis CTA 10/02/25 07:31 IMPRESSION: 1. No pulmonary embolus. 2. Small pericardial effusion. 3. Pancolitis. Labs Labs: Laboratory Tests 10/06/25 05:39 10/06/25 05:39 Calcium 9.8 Magnesium 2.0 Total Bilirubin 0.4 AST 25 ALT 14 Alkaline Phosphatase 121 Total Protein 6.4 Albumin 3.4 L Random Vancomycin 20.7 H Microbiology 10/04/25 16:23 Urine - Clean Catch Midstream Urine Culture - Final 10/02/25 00:58 Blood Blood Culture - Preliminary 10/02/25 00:58 Blood Blood Culture - Preliminary
[2025-10-06] MEDS: EPOETIN ALFA-EPBX 4,000 UNITS/ML VIAL 4000 UNITS IV PUSH (11:44)
[2025-10-06] MEDS: ATORVASTATIN 40 MG TABLET 80 MG PO (13:17)
[2025-10-06] MEDS: FOLIC ACID 1 MG TABLET PO (13:18)
--- NOTE | 2025-10-06 13:18 | P.PNIM_ITS ---
Assessment and Plan Assessment and Plan (1) UTI (urinary tract infection): Code(s): N39.0 - Urinary tract infection, site not specified Status: Acute Assessment and Plan: Blood and urine culture and IV antibiotic. Blood culture no growth to date. On vancomycin and Zosyn Leukocytosis improving No UA done showed no UTI Straight cath to get urine sample obtained 10/04/2025 culture came back with no growth Will stop the vancomycin (2) AMS (altered mental status): Code(s): R41.82 - Altered mental status, unspecified Status: Inactive Assessment and Plan: Most likely from urine tract infection. Continue to monitor behavioral issues. family reports recurrent stroke on dapt now. MRI ordered which is pending Neurology consulted (3) End-stage renal disease on hemodialysis: Code(s): N18.6 - End stage renal disease; Z99.2 - Dependence on renal dialysis Status: Acute Assessment and Plan: Continue hemodialysis as scheduled. (4) History of CVA (cerebrovascular accident): Code(s): Z86.73 - Personal history of transient ischemic attack (TIA), and cerebral infarction without residual deficits Status: Chronic Assessment and Plan: Stable, continue current treatment Plan 65-year-old female brought via EMS for altered mental status. She is alert and oriented x1 at baseline. Patient had abnormal vital signs including blood pressure of 70/40 and oxygen saturation of 77% after returning from dialysis. She has significant medical history of stroke after Thanksgiving resulting in her decrease in mental status just [facility] head with no acute intracranial abnormality. CTA chest abdomen pelvis with small pericardial effusion and pancolitis. Started on IV Zosyn. Labs revealed leukocytosis of 17.4 hemoglobin of 10.9 platelet of 225. Metabolic panel demonstrated minimal changes compared to patient's baseline. D-dimer 3.3 CRP 6.9 flu COVID RSV was negative. Patient treated for pancolitis with IV Zosyn. Code status DNR. DVT prophylaxis heparin Subjective Date/time seen: 10/06/25 13:18 Interval history: No overnight events. Patient seen during dialysis. Reports no new complaints. Still bit confused. Review of Systems Review of Systems: All systems reviewed & are unremarkable except as noted in HPI and below (the history and physical exam.) Exam Narrative: GENERAL: No acute distress. HEAD: Normocephalic, atraumatic. EYES: PERRLA and EOMI. NECK: Supple. No adenopathy or masses. No carotid bruits or JVD CHEST: Clear to auscultation. No respiratory distress. No wheezes rales or rhonchi HEART: Regular rhythm. No murmur heard. Normal peripheral pulses. ABDOMEN: Soft, nontender, nondistended, normal active bowel sounds. BACK: No abnormalities. EXTREMITIES: Normal range of motion. No edema. Left-sided weakness SKIN: Warm, dry, no rash. NEURO: Alert and awake remains confused PSYCH: Normal mood and affect Objective Data Vital Signs Vital Signs: Vital Signs - 24 hr 10/05/25 14:00 10/05/25 16:00 10/05/25 16:25 Temperature 97.4 F L Pulse Rate 86 83 82 Respiratory Rate 16 Blood Pressure 100/50 L Pulse Oximetry 91 Oxygen Delivery 10/05/25 21:52 10/06/25 06:00 10/06/25 08:00 Temperature 97.3 F L 97.4 F L Pulse Rate 78 74 74 Respiratory Rate 16 18 18 Blood Pressure 111/55 L 126/64 Pulse Oximetry 100 98 98 Oxygen Delivery Room Air 10/06/25 08:01 10/06/25 08:43 10/06/25 08:55 Temperature 98.1 F Pulse Rate 65 66 67 Respiratory Rate 16 Blood Pressure 116/71 122/68 Pulse Oximetry 97 Oxygen Delivery 10/06/25 09:00 10/06/25 09:15 10/06/25 09:30 Temperature Pulse Rate 62 70 72 Respiratory Rate Blood Pressure 123/75 109/73 115/79 Pulse Oximetry Oxygen Delivery 10/06/25 09:45 10/06/25 10:00 10/06/25 10:15 Temperature Pulse Rate 72 75 68 Respiratory Rate Blood Pressure 115/69 108/73 131/73 Pulse Oximetry Oxygen Delivery 10/06/25 10:30 10/06/25 10:45 10/06/25 11:00 Temperature Pulse Rate 72 68 70 Respiratory Rate Blood Pressure 111/74 116/71 118/73 Pulse Oximetry Oxygen Delivery 10/06/25 11:15 10/06/25 11:30 10/06/25 11:45 Temperature Pulse Rate 72 74 68 Respiratory Rate Blood Pressure 121/71 114/71 119/75 Pulse Oximetry Oxygen Delivery 10/06/25 12:00 10/06/25 12:05 10/06/25 12:15 Temperature Pulse Rate 69 69 75 Respiratory Rate Blood Pressure 118/73 94/75 L Pulse Oximetry Oxygen Delivery 10/06/25 12:26 10/06/25 12:33 Temperature 98.4 F Pulse Rate 68 67 Respiratory Rate 16 Blood Pressure 110/73 123/70 Pulse Oximetry 100 Oxygen Delivery Intake/Output Intake/Output: Intake & Output 10/03/25 10/04/25 10/05/25 10/06/25 23:59 23:59 23:59 23:59 Intake Total 50 1588 1060 240 Output Total 0 5 505 Balance 50 1583 1060 -265 Meds/Results Medications: Active Medications Generic Name Dose Route Start Last Admin Trade Name Freq PRN Reason Stop Dose Admin Aspirin 81 mg 10/02/25 12:25 10/05/25 08:28 Aspirin 81 Mg Enteric Tablet PO 81 mg QAM RAVI Administration Atorvastatin Calcium 80 mg 10/02/25 12:25 10/06/25 13:17 Atorvastatin 40 Mg Tablet PO 80 mg DAILY RAVI Administration Carvedilol 25 mg 10/02/25 17:00 10/05/25 16:25 Carvedilol 25 Mg Tablet PO 25 mg BIDWM RAVI Administration Cinacalcet 30 mg 10/02/25 12:20 10/05/25 08:28 Cinacalcet 30 Mg Tablet PO 30 mg QAM RAVI Administration Dextrose 12.5 gm 10/02/25 16:16 Dextrose 50% 25 Gm/50 Ml Syringe IV PUSH PRN PRN Hypoglycemia Protocol Epoetin Isac-epbx 4,000 units 10/06/25 18:00 10/06/25 11:44 Epoetin Isac-Epbx 4,000 Units/Ml Vial IV PUSH 10/06/25 18:01 4,000 units ONCE ONE Administration Folic Acid 1 mg 10/02/25 12:25 10/06/25 13:18 Folic Acid 1 Mg Tablet PO 1 mg DAILY RAVI Administration Glucagon 1 mg 10/02/25 16:16 Glucagon For Inj 1 Mg Vial IM PRN PRN Hypoglycemia Protocol Glucose 15 gm 10/02/25 16:16 Glucose Oral Gel 15 Gm Of Glucse In 37.5 Gm Tube PO PRN PRN Hypoglycemia Protocol Heparin Sodium (Porcine) 5,000 units 10/02/25 11:30 10/05/25 20:56 Heparin Sodium 5,000 Units/Ml Vial SUB-Q 5,000 units Q12HR RAVI Administration Dextrose 1,000 mls @ 100 mls/hr 10/02/25 16:16 Dextrose 5% 1,000 Ml IVPB PRN PRN Hypoglycemia Protocol Piperacillin Sod/Tazobactam 50 mls @ 100 mls/hr 10/03/25 23:00 10/06/25 05:12 Sod 2.25 gm/ Sodium Chloride IVPB 100 mls/hr Q8H RAVI Administration Albumin Human 50 mls @ 999 mls/hr 10/04/25 01:23 Albutein IVPB 11/03/25 01:22 Q10M PRN HYPOTENSION Vancomycin HCl 500 mg in 100 mls @ 100 mls/hr 10/06/25 16:00 Vancomycin 500 Mg/Ns 100 Ml IVPB 10/06/25 16:59 ONCE ONE Insulin Aspart 2 - 5 units 10/02/25 17:00 10/06/25 13:13 Insulin Aspart (*Bkc) 100 Units/Ml SUB-Q Not Given TIDWM RAVI Protocol Pantoprazole Sodium 20 mg 10/02/25 09:00 10/05/25 08:27 Pantoprazole Sod Sesquihydrate 20 Mg Tab PO 20 mg QAM RAVI Administration Ticagrelor 90 mg 10/02/25 21:00 10/05/25 20:56 Ticagrelor 90 Mg Tablet PO 90 mg HS RAVI Administration Vancomycin HCl 1 each 10/02/25 11:06 Vancomycin For Hemodialysis IVPB PRN PRN Vancomycin Protocol Venlafaxine HCl 150 mg 10/02/25 21:00 10/05/25 20:56 Venlafaxine Hcl Xr 75 Mg Cap.Er.24h PO 150 mg HS RAVI Administration Radiology Results: ITS Impressions Head CT 10/02/25 07:24 IMPRESSION: 1. No acute intracranial findings. Chest/Abdomen/Pelvis CTA 10/02/25 07:31 IMPRESSION: 1. No pulmonary embolus. 2. Small pericardial effusion. 3. Pancolitis. Labs Labs: Laboratory Results - last 24 hr 10/05/25 10/05/25 10/06/25 16:55 21:08 05:39 WBC 8.7 RBC 3.66 L Hgb 10.5 L Hct 33.8 L MCV 92.3 MCH 28.7 MCHC 31.1 L RDW 15.1 H Plt Count 273 MPV 11.2 H Immature Gran % (Auto) 0.5 Neut % (Auto) 43.6 L Lymph % (Auto) 30.9 [place] % (Auto) 13.8 H Eos % (Auto) 10.2 H Baso % (Auto) 1.0 Lymph # (Auto) 2.67 [place] # (Auto) 1.2 H Eos # (Auto) 0.9 H Baso # (Auto) 0.1 Abs Immat Gran (auto) 0.04 H Absolute Neuts (auto) 3.8 Absolute Nucleated RBC 0.000 Nucleated RBC % 0.0 Sodium 136 L Potassium 3.5 Chloride 100 Carbon Dioxide 28 Anion Gap 8 BUN 28 H Creatinine 8.77 H Estim Creat Clear Calc 5 Estimated GFR 5 L Glucose 81 POC Capillary Glucose 152 H 126 H Calcium 9.8 Magnesium 2.0 Total Bilirubin 0.4 AST 25 ALT 14 Alkaline Phosphatase 121 Total Protein 6.4 Albumin 3.4 L Random Vancomycin 20.7 H 10/06/25 07:41 WBC RBC Hgb Hct MCV MCH MCHC RDW Plt Count MPV Immature Gran % (Auto) Neut % (Auto) Lymph % (Auto) [place] % (Auto) Eos % (Auto) Baso % (Auto) Lymph # (Auto) [place] # (Auto) Eos # (Auto) Baso # (Auto) Abs Immat Gran (auto) Absolute Neuts (auto) Absolute Nucleated RBC Nucleated RBC % Sodium Potassium Chloride Carbon Dioxide Anion Gap BUN Creatinine Estim Creat Clear Calc Estimated GFR Glucose POC Capillary Glucose 85 Calcium Magnesium Total Bilirubin AST ALT Alkaline Phosphatase Total Protein Albumin Random Vancomycin
[2025-10-06] MEDS: ASPIRIN 81 MG ENTERIC TABLET PO (13:19)
[2025-10-06] MEDS: PANTOPRAZOLE SOD SESQUIHYDRATE 20 MG TAB PO (13:19)
[2025-10-06] MEDS: CINACALCET 30 MG TABLET PO (13:20)
--- NOTE | 2025-10-06 15:38 | PC.NURSE ---
Spoke with daughter Adry Smith, sibling, called to get help filling out MRI form, daughter requested not to have MRI done, voiced she is at her baseline , doinf MRI would not change her confusion, call placed to Dr. Manzano and updated
[2025-10-06] MEDS: VENLAFAXINE HCL XR 75 MG CAP.ER.24H 150 MG PO (21:25)
[2025-10-06] MEDS: TICAGRELOR 90 MG TABLET PO (21:25)
[2025-10-07] VITALS (11 sets, daily range): BP systolic 120–132; BP diastolic 66–70; PULSE 57–113; RESP 16–20; TEMP 36.1–36.4; O2SAT 98–100
[2025-10-07 06:07] LABS: Hematocrit 35.7 % (37.0-47.0); Hemoglobin 10.9 g/dL (12.0-15.0); Immature Granulocyte Percent A 0.6 % (0-0.5); Lymphocytes Absolute Auto 2.85 K/mm3 (0.9-3.2); Mean Corpuscular HGB Conc 30.5 g/dl (32-36); Mean Corpuscular Hemoglobin 29.1 pg (26-34); Mean Corpuscular Volume 95.5 fl (80-100); Nucleated Red Blood Cells Absolute Auto 0.000 K/mm3 (0.0-0.012); Nucleated Red Blood Cells Perc 0.0 % (0.0-0.2); Platelet Count Result 269 k/mm3 (150-375); Red Blood Count 3.74 M/mm3 (4.2-5.4); White Blood Count 9.1 K/mm3 (4.5-10.0)
[2025-10-07 06:22] LABS: Alanine Aminotransferase 16 U/L (6-35); Albumin Level 3.4 g/dL (3.5-5.1); Alkaline Phosphatase 126 U/L (38-126); Anion Gap 4 mmol/L (4-12); Aspartate Amino Transferase 27 U/L (14-36); Bilirubin,Total 0.4 mg/dL (0.2-1.3); Blood Urea Nitrogen 11 mg/dL (7-17); Calcium 9.9 mg/dL (8.4-10.2); Carbon Dioxide 28 mmol/L (22-30); Chloride 104 mmol/L (98-107); Estimated CRCL calculation 8 ml/min; Estimated Glomerular Filt Rate 8; Glucose 78 mg/dL (65-110); Magnesium 1.9 mg/dL (1.6-2.3); Potassium 4.0 mmol/L (3.4-5.0); Sodium 136 mmol/L (137-145); Total Protein 6.5 g/dL (6.3-8.2)
--- NOTE | 2025-10-07 08:35 | PCPTNOTE ---
Pt very confused and not able to follow formal commands to participate in skilled therapy. Pt likely functioning at baseline. Therapy orders discontinued at this time.
--- NOTE | 2025-10-07 10:07 | P.PNNP_ITS ---
Progress Note: A&P Assessment and Plan (1) End stage renal disease: Code(s): N18.6 - End stage renal disease Status: Chronic Assessment and Plan: * HD Tomorrow. * Volume status looks okay. * Potassium bicarbonate and BUN are all in good shape. (2) Altered mental status: Code(s): R41.82 - Altered mental status, unspecified Status: Acute Assessment and Plan: * improvement noted (but still confused) * initially noted at her nursing facility and in ER on admission * has a history of fluctuating to extremes... * due to infection? (elevated WBC noted on admission - has normalized) * follow culture data - blood cultures negative to date - urine culture negative * admission CT scan with pancolitis * on Zosyn and vancomycin * follow trend of mentation (3) History of CVA (cerebrovascular accident): Code(s): Z86.73 - Personal history of transient ischemic attack (TIA), and cerebral infarction without residual deficits Status: Chronic Assessment and Plan: * as noted earlier this month * s/p hospitalization at [facility] with imaging noted: * head CT which showed chronic infarcts but no acute hemorrhage * MRI of the brain revealed a new left frontal subcortical infarct with evidence of chronic small vessel ischemic changes and prior right parietal infarct * MRI/MRA of the brain and neck demonstrated 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, occlusion of the superior left intracranial vertebral artery, and multifocal stenosis of the anterior and posterior circulations, raising concern for intracranial atherosclerotic disease * diagnostic cerebral angiogram showed multiple alternating areas of moderate to severe stenosis with a beading pattern in both anterior and posterior circulations representing multifocal intracranial atherosclerosis * likely playing a role with #2 * on ticagrelor in addition to aspirin with high intensity statin therapy * Neurology following * repeat MRI ordered but not done yet * continue supportive therapy (4) Anemia: Qualifiers: Anemia type: due to chronic kidney disease Chronic kidney disease stage: stage 5 (GFR < 15), not on chronic dialysis Qualified Code(s): N18.5 - Chronic kidney disease, stage 5; D63.1 - Anemia in chronic kidney disease Code(s): D64.9 - Anemia, unspecified Status: Acute Assessment and Plan: * due to ESRD * Epogen with dialysis * follow trend of H/H (5) Hypertension: Qualifiers: Hypertension type: secondary to other renal disorders Qualified Code(s): I15.1 - Hypertension secondary to other renal disorders; N28.89 - Other specified disorders of kidney and ureter Code(s): I10 - Essential (primary) hypertension Status: Chronic Assessment and Plan: * systolic 94-130 * follow trend of hemodynamics (6) Diabetes: Code(s): E11.9 - Type 2 diabetes mellitus without complications Status: Chronic Assessment and Plan: * follow accu-cheks * glycemic control per hospitalist Will continue to follow. Subjective Date/time seen: 10/07/25 10:07 Interval history: patient resting comfortably in bed. Patient does not really interact very well. Repeats the question but does not answer the question. I did see her early and woke her up, though. Exam Narrative: General: elderly but WD/WN female in NAD Heart: normal S1 and S2; no rub Lungs: clear to auscultation Abdomen: soft, nontender, nondistended, positive bowel sounds Extremities: no cyanosis or clubbing; no edema Skin: no rash Objective Data Vital Signs Vital Signs: Vital Signs - 24 hr 10/06/25 10:15 10/06/25 10:30 10/06/25 10:45 Temperature Pulse Rate 68 72 68 Respiratory Rate Blood Pressure 131/73 111/74 116/71 Pulse Oximetry Oxygen Delivery 10/06/25 11:00 10/06/25 11:15 10/06/25 11:30 Temperature Pulse Rate 70 72 74 Respiratory Rate Blood Pressure 118/73 121/71 114/71 Pulse Oximetry Oxygen Delivery 10/06/25 11:45 10/06/25 12:00 10/06/25 12:05 Temperature Pulse Rate 68 69 69 Respiratory Rate Blood Pressure 119/75 118/73 Pulse Oximetry Oxygen Delivery 10/06/25 12:15 10/06/25 12:26 10/06/25 12:33 Temperature 98.4 F Pulse Rate 75 68 67 Respiratory Rate 16 Blood Pressure 94/75 L 110/73 123/70 Pulse Oximetry 100 Oxygen Delivery 10/06/25 14:00 10/06/25 16:01 10/06/25 20:00 Temperature 96.8 F L Pulse Rate 65 68 Respiratory Rate 16 Blood Pressure 111/60 Pulse Oximetry 100 Oxygen Delivery Room Air 10/06/25 20:00 10/06/25 21:55 10/07/25 00:00 Temperature 97.7 F Pulse Rate 67 63 65 Respiratory Rate 18 Blood Pressure 127/59 L Pulse Oximetry 100 Oxygen Delivery 10/07/25 04:00 10/07/25 06:00 Temperature 96.9 F L Pulse Rate 66 77 Respiratory Rate 20 Blood Pressure 120/66 Pulse Oximetry 100 Oxygen Delivery Intake/Output Intake/Output: Intake & Output 10/04/25 10/05/25 10/06/25 10/07/25 23:59 23:59 23:59 23:59 Intake Total 1588 1060 340 50 Output Total 5 510 Balance 1583 1060 -170 50 Meds/Results Medications: Active Medications Generic Name Dose Route Start Last Admin Trade Name Freq PRN Reason Stop Dose Admin Aspirin 81 mg 10/02/25 12:25 10/06/25 13:19 Aspirin 81 Mg Enteric Tablet PO 81 mg QAM RAVI Administration Atorvastatin Calcium 80 mg 10/02/25 12:25 10/06/25 13:17 Atorvastatin 40 Mg Tablet PO 80 mg DAILY RAVI Administration Carvedilol 25 mg 10/02/25 17:00 10/06/25 16:45 Carvedilol 25 Mg Tablet PO 25 mg BIDWM RAVI Administration Cinacalcet 30 mg 10/02/25 12:20 10/06/25 13:20 Cinacalcet 30 Mg Tablet PO 30 mg QAM RAVI Administration Dextrose 12.5 gm 10/02/25 16:16 Dextrose 50% 25 Gm/50 Ml Syringe IV PUSH PRN PRN Hypoglycemia Protocol Folic Acid 1 mg 10/02/25 12:25 10/06/25 13:18 Folic Acid 1 Mg Tablet PO 1 mg DAILY RAVI Administration Glucagon 1 mg 10/02/25 16:16 Glucagon For Inj 1 Mg Vial IM PRN PRN Hypoglycemia Protocol Glucose 15 gm 10/02/25 16:16 Glucose Oral Gel 15 Gm Of Glucse In 37.5 Gm Tube PO PRN PRN Hypoglycemia Protocol Heparin Sodium (Porcine) 5,000 units 10/02/25 11:30 10/06/25 21:25 Heparin Sodium 5,000 Units/Ml Vial SUB-Q 5,000 units Q12HR RAVI Administration Dextrose 1,000 mls @ 100 mls/hr 10/02/25 16:16 Dextrose 5% 1,000 Ml IVPB PRN PRN Hypoglycemia Protocol Albumin Human 50 mls @ 999 mls/hr 10/04/25 01:23 Albutein IVPB 11/03/25 01:22 Q10M PRN HYPOTENSION Piperacillin Sod/Tazobactam 50 mls @ 100 mls/hr 10/07/25 08:00 Sod 2.25 gm/ Sodium Chloride IVPB Q8H RAVI Insulin Aspart 2 - 5 units 10/02/25 17:00 10/07/25 08:42 Insulin Aspart (*Bkc) 100 Units/Ml SUB-Q Not Given TIDWM RAVI Protocol Pantoprazole Sodium 20 mg 10/02/25 09:00 10/06/25 13:19 Pantoprazole Sod Sesquihydrate 20 Mg Tab PO 20 mg QAM RAVI Administration Ticagrelor 90 mg 10/02/25 21:00 10/06/25 21:25 Ticagrelor 90 Mg Tablet PO 90 mg HS RAVI Administration Venlafaxine HCl 150 mg 10/02/25 21:00 10/06/25 21:25 Venlafaxine Hcl Xr 75 Mg Cap.Er.24h PO 150 mg HS RAVI Administration Radiology Results: ITS Impressions Head CT 10/02/25 07:24 IMPRESSION: 1. No acute intracranial findings. Chest/Abdomen/Pelvis CTA 10/02/25 07:31 IMPRESSION: 1. No pulmonary embolus. 2. Small pericardial effusion. 3. Pancolitis. Labs Labs: Laboratory Results - last 24 hr 10/06/25 10/06/25 10/07/25 16:54 22:58 05:16 WBC 9.1 RBC 3.74 L Hgb 10.9 L Hct 35.7 L MCV 95.5 MCH 29.1 MCHC 30.5 L RDW 15.1 H Plt Count 269 MPV 10.6 H Immature Gran % (Auto) 0.6 H Neut % (Auto) 41.6 L Lymph % (Auto) 31.5 [place] % (Auto) 14.6 H Eos % (Auto) 10.3 H Baso % (Auto) 1.4 H Lymph # (Auto) 2.85 [place] # (Auto) 1.3 H Eos # (Auto) 0.9 H Baso # (Auto) 0.1 Abs Immat Gran (auto) 0.05 H Absolute Neuts (auto) 3.8 Absolute Nucleated RBC 0.000 Nucleated RBC % 0.0 Sodium 136 L Potassium 4.0 Chloride 104 Carbon Dioxide 28 Anion Gap 4 BUN 11 D Creatinine 5.49 H Estim Creat Clear Calc 8 Estimated GFR 8 L Glucose 78 POC Capillary Glucose 93 78 Calcium 9.9 Magnesium 1.9 Total Bilirubin 0.4 AST 27 ALT 16 Alkaline Phosphatase 126 Total Protein 6.5 Albumin 3.4 L 10/07/25 07:43 WBC RBC Hgb Hct MCV MCH MCHC RDW Plt Count MPV Immature Gran % (Auto) Neut % (Auto) Lymph % (Auto) [place] % (Auto) Eos % (Auto) Baso % (Auto) Lymph # (Auto) [place] # (Auto) Eos # (Auto) Baso # (Auto) Abs Immat Gran (auto) Absolute Neuts (auto) Absolute Nucleated RBC Nucleated RBC % Sodium Potassium Chloride Carbon Dioxide Anion Gap BUN Creatinine Estim Creat Clear Calc Estimated GFR Glucose POC Capillary Glucose 84 Calcium Magnesium Total Bilirubin AST ALT Alkaline Phosphatase Total Protein Albumin
[2025-10-07] MEDS: PANTOPRAZOLE SOD SESQUIHYDRATE 20 MG TAB PO (10:14)
[2025-10-07] MEDS: ASPIRIN 81 MG ENTERIC TABLET PO (10:14)
[2025-10-07] MEDS: CINACALCET 30 MG TABLET PO (10:14)
[2025-10-07] MEDS: ATORVASTATIN 40 MG TABLET 80 MG PO (10:14)
[2025-10-07] MEDS: FOLIC ACID 1 MG TABLET PO (10:14)
[2025-10-07] MEDS: PIPERACILLIN/TAZOBACTAM SOD 2.25 GM in SODIUM CHLORIDE 0.9% IV 50 ML 100 ML IVPB ×3 (10:18→23:01)
--- NOTE | 2025-10-07 10:21 | PCNFU ---
Nutrition Follow-Up Complete: Moderate protein calorie malnutrition related to inadequate energy intake as evidenced by a -16% weight loss x 5 months, poor po intake for greater than 1 month. Goal:PO intake 50% or greater Pt slowly progressing towards goal Pt current nutrition is Regular, Nepro shakes BID. Nutrition recommendation: D/C nepro shakes as pt has a milk allergy Last recorded weight is 70.1 kg. Bowel Motility:+BM 10/06 Labs Reviewed: Hgb:10.9, HCT:35.7, Alb:3.4, Na:136, Cr:5.5 Meds Noted: protonix, folic acid, novolog Skin: WNL Additional Notes: Pt continues on a regular diet, intake improved to 25-75% at times. Noted a dairy allergy so unable to send Nepro shakes as pt is not able to clarify allergy. Encourage po intake. Agree with orders. Monitor intake, wt, labs. follow up in 3 days.
--- NOTE | 2025-10-07 14:52 | P.PNIM_ITS ---
Assessment and Plan Assessment and Plan (1) UTI (urinary tract infection): Code(s): N39.0 - Urinary tract infection, site not specified Status: Acute Assessment and Plan: Blood and urine culture and IV antibiotic. Blood culture no growth to date. On vancomycin and Zosyn Leukocytosis improving No UA done showed no UTI Straight cath to get urine sample obtained 10/04/2025 culture came back with no growth stopped vancomycin 10/06/2025. (2) AMS (altered mental status): Code(s): R41.82 - Altered mental status, unspecified Status: Inactive Assessment and Plan: Most likely from urine tract infection. Continue to monitor Possible behavioral issues. family reports recurrent stroke on dapt now. MRI ordered which is refused by family. Patient mostly at baseline per family Neurology consulted and appreciate their recommendations (3) End-stage renal disease on hemodialysis: Code(s): N18.6 - End stage renal disease; Z99.2 - Dependence on renal dialysis Status: Acute Assessment and Plan: Continue hemodialysis as scheduled. (4) History of CVA (cerebrovascular accident): Code(s): Z86.73 - Personal history of transient ischemic attack (TIA), and cerebral infarction without residual deficits Status: Chronic Assessment and Plan: Stable, continue current treatment Plan 65-year-old female brought via EMS for altered mental status. She is alert and oriented x1 at baseline. Patient had abnormal vital signs including blood pressure of 70/40 and oxygen saturation of 77% after returning from dialysis. She has significant medical history of stroke after Thanksgiving resulting in her decrease in mental status just released from [facility] [place] to [facility]. CT head with no acute intracranial abnormality. CTA chest abdomen pelvis with small pericardial effusion and pancolitis. Started on IV Zosyn. Labs revealed leukocytosis of 17.4 hemoglobin of 10.9 platelet of 225. Metabolic panel demon strated minimal changes compared to patient's baseline. D-dimer 3.3 CRP 6.9 flu COVID RSV was negative. Patient treated for pancolitis with IV Zosyn. Code status DNR. DVT prophylaxis heparin Subjective Date/time seen: 10/07/25 14:52 Interval history: No overnight events. MRI refused by family. States patient mostly at baseline. Patient is to picking on her dialysis catheter. Remains on restraints Review of Systems Review of Systems: All systems reviewed & are unremarkable except as noted in HPI and below (the history and physical exam.) Exam Narrative: GENERAL: No acute distress. HEAD: Normocephalic, atraumatic. EYES: PERRLA and EOMI. NECK: Supple. No adenopathy or masses. No carotid bruits or JVD CHEST: Clear to auscultation. No respiratory distress. No wheezes rales or rhonchi HEART: Regular rhythm. No murmur heard. Normal peripheral pulses. ABDOMEN: Soft, nontender, nondistended, normal active bowel sounds. BACK: No abnormalities. EXTREMITIES: Normal range of motion. No edema. Left-sided weakness SKIN: Warm, dry, no rash. NEURO: Alert and awake remains confused PSYCH: Normal mood and affect Objective Data Vital Signs Vital Signs: Vital Signs - 24 hr 10/06/25 16:01 10/06/25 20:00 10/06/25 20:00 Temperature Pulse Rate 68 67 Respiratory Rate Blood Pressure Pulse Oximetry Oxygen Delivery Room Air 10/06/25 21:55 10/07/25 00:00 10/07/25 04:00 Temperature 97.7 F Pulse Rate 63 65 66 Respiratory Rate 18 Blood Pressure 127/59 L Pulse Oximetry 100 Oxygen Delivery 10/07/25 06:00 10/07/25 08:00 10/07/25 08:00 Temperature 96.9 F L Pulse Rate 77 63 62 Respiratory Rate 20 Blood Pressure 120/66 Pulse Oximetry 100 99 Oxygen Delivery Room Air 10/07/25 10:13 10/07/25 12:00 10/07/25 14:00 Temperature 97.4 F L Pulse Rate 63 61 113 H Respiratory Rate 16 Blood Pressure 124/67 Pulse Oximetry 98 Oxygen Delivery Intake/Output Intake/Output: Intake & Output 10/04/25 10/05/25 10/06/25 10/07/25 23:59 23:59 23:59 23:59 Intake Total 1588 1060 340 100 Output Total 5 510 Balance 1583 1060 -170 100 Meds/Results Medications: Active Medications Generic Name Dose Route Start Last Admin Trade Name Freq PRN Reason Stop Dose Admin Aspirin 81 mg 10/02/25 12:25 10/07/25 10:14 Aspirin 81 Mg Enteric Tablet PO 81 mg QAM RAVI Administration Atorvastatin Calcium 80 mg 10/02/25 12:25 10/07/25 10:14 Atorvastatin 40 Mg Tablet PO 80 mg DAILY RAVI Administration Carvedilol 25 mg 10/02/25 17:00 10/07/25 10:13 Carvedilol 25 Mg Tablet PO 25 mg BIDWM RAVI Administration Cinacalcet 30 mg 10/02/25 12:20 10/07/25 10:14 Cinacalcet 30 Mg Tablet PO 30 mg QAM RAVI Administration Dextrose 12.5 gm 10/02/25 16:16 Dextrose 50% 25 Gm/50 Ml Syringe IV PUSH PRN PRN Hypoglycemia Protocol Folic Acid 1 mg 10/02/25 12:25 10/07/25 10:14 Folic Acid 1 Mg Tablet PO 1 mg DAILY RAVI Administration Glucagon 1 mg 10/02/25 16:16 Glucagon For Inj 1 Mg Vial IM PRN PRN Hypoglycemia Protocol Glucose 15 gm 10/02/25 16:16 Glucose Oral Gel 15 Gm Of Glucse In 37.5 Gm Tube PO PRN PRN Hypoglycemia Protocol Heparin Sodium (Porcine) 5,000 units 10/02/25 11:30 10/07/25 10:16 Heparin Sodium 5,000 Units/Ml Vial SUB-Q 5,000 units Q12HR RAVI Administration Dextrose 1,000 mls @ 100 mls/hr 10/02/25 16:16 Dextrose 5% 1,000 Ml IVPB PRN PRN Hypoglycemia Protocol Albumin Human 50 mls @ 999 mls/hr 10/04/25 01:23 Albutein IVPB 11/03/25 01:22 Q10M PRN HYPOTENSION Piperacillin Sod/Tazobactam 50 mls @ 100 mls/hr 10/07/25 08:00 10/07/25 10:48 Sod 2.25 gm/ Sodium Chloride IVPB Infused Q8H RAVI Infusion Albumin Human 50 mls @ 999 mls/hr 10/07/25 10:10 Albutein IVPB 10/08/25 10:09 Q10M PRN HYPOTENSION Insulin Aspart 2 - 5 units 10/02/25 17:00 10/07/25 12:27 Insulin Aspart (*Bkc) 100 Units/Ml SUB-Q Not Given TIDWM RAVI Protocol Pantoprazole Sodium 20 mg 10/02/25 09:00 10/07/25 10:14 Pantoprazole Sod Sesquihydrate 20 Mg Tab PO 20 mg QAM RAVI Administration Ticagrelor 90 mg 10/02/25 21:00 10/06/25 21:25 Ticagrelor 90 Mg Tablet PO 90 mg HS RAVI Administration Venlafaxine HCl 150 mg 10/02/25 21:00 10/06/25 21:25 Venlafaxine Hcl Xr 75 Mg Cap.Er.24h PO 150 mg HS RAVI Administration Radiology Results: ITS Impressions Head CT 10/02/25 07:24 IMPRESSION: 1. No acute intracranial findings. Chest/Abdomen/Pelvis CTA 10/02/25 07:31 IMPRESSION: 1. No pulmonary embolus. 2. Small pericardial effusion. 3. Pancolitis. Labs Labs: Laboratory Results - last 24 hr 10/06/25 10/06/25 10/07/25 16:54 22:58 05:16 WBC 9.1 RBC 3.74 L Hgb 10.9 L Hct 35.7 L MCV 95.5 MCH 29.1 MCHC 30.5 L RDW 15.1 H Plt Count 269 MPV 10.6 H Immature Gran % (Auto) 0.6 H Neut % (Auto) 41.6 L Lymph % (Auto) 31.5 Amelia % (Auto) 14.6 H Eos % (Auto) 10.3 H Baso % (Auto) 1.4 H Lymph # (Auto) 2.85 Amelia # (Auto) 1.3 H Eos # (Auto) 0.9 H Baso # (Auto) 0.1 Abs Immat Gran (auto) 0.05 H Absolute Neuts (auto) 3.8 Absolute Nucleated RBC 0.000 Nucleated RBC % 0.0 Sodium 136 L Potassium 4.0 Chloride 104 Carbon Dioxide 28 Anion Gap 4 BUN 11 D Creatinine 5.49 H Estim Creat Clear Calc 8 Estimated GFR 8 L Glucose 78 POC Capillary Glucose 93 78 Calcium 9.9 Magnesium 1.9 Total Bilirubin 0.4 AST 27 ALT 16 Alkaline Phosphatase 126 Total Protein 6.5 Albumin 3.4 L 10/07/25 10/07/25 07:43 11:25 WBC RBC Hgb Hct MCV MCH MCHC RDW Plt Count MPV Immature Gran % (Auto) Neut % (Auto) Lymph % (Auto) Amelia % (Auto) Eos % (Auto) Baso % (Auto) Lymph # (Auto) Amelia # (Auto) Eos # (Auto) Baso # (Auto) Abs Immat Gran (auto) Absolute Neuts (auto) Absolute Nucleated RBC Nucleated RBC % Sodium Potassium Chloride Carbon Dioxide Anion Gap BUN Creatinine Estim Creat Clear Calc Estimated GFR Glucose POC Capillary Glucose 84 111 H Calcium Magnesium Total Bilirubin AST ALT Alkaline Phosphatase Total Protein Albumin
[2025-10-07] MEDS: VENLAFAXINE HCL XR 75 MG CAP.ER.24H 150 MG PO (20:50)
[2025-10-07] MEDS: TICAGRELOR 90 MG TABLET PO (20:50)
[2025-10-08] VITALS (26 sets, daily range): BP systolic 97–145; BP diastolic 66–105; PULSE 58–107; RESP 12–20; TEMP 36–37.2; O2SAT 96–100
[2025-10-08 06:59] LABS: Hematocrit 39.2 % (37.0-47.0); Hemoglobin 11.8 g/dL (12.0-15.0); Mean Corpuscular HGB Conc 30.1 g/dl (32-36); Mean Corpuscular Hemoglobin 28.6 pg (26-34); Mean Corpuscular Volume 95.1 fl (80-100); Platelet Count Result 306 k/mm3 (150-375); Red Blood Count 4.12 M/mm3 (4.2-5.4); White Blood Count 7.1 K/mm3 (4.5-10.0)
[2025-10-08 07:09] LABS: Albumin Level 3.7 g/dL (3.5-5.1); Anion Gap 10 mmol/L (4-12); Blood Urea Nitrogen 16 mg/dL (7-17); Calcium 10.0 mg/dL (8.4-10.2); Carbon Dioxide 21 mmol/L (22-30); Chloride 105 mmol/L (98-107); Estimated CRCL calculation 6 ml/min; Estimated Glomerular Filt Rate 6; Glucose 70 mg/dL (65-110); Potassium 4.9 mmol/L (3.4-5.0); Sodium 136 mmol/L (137-145)
[2025-10-08] MEDS: ATORVASTATIN 40 MG TABLET 80 MG PO (10:35)
[2025-10-08] MEDS: FOLIC ACID 1 MG TABLET PO (10:35)
[2025-10-08] MEDS: ASPIRIN 81 MG ENTERIC TABLET PO (10:35)
[2025-10-08] MEDS: CINACALCET 30 MG TABLET PO (10:37)
[2025-10-08] MEDS: PANTOPRAZOLE SOD SESQUIHYDRATE 20 MG TAB PO (10:37)
--- NOTE | 2025-10-08 10:57 | P.CDI_ITS ---
CDI Query Clarification Request BMI: 25.3 Nutritional Diagnostic Statement: Please refer to the comprehensive nutrition assessment for further information. If you agree with diagnosis of Moderate protein calorie malnutrition related to inadequate energy intake as evidenced by a -16% weight loss x 5 months, poor po intake for greater than 1 month. Please specify severity if known: * Mild * Moderate * Severe * Other/Unknown <Meseret Rubin RN - Last Filed: 10/08/25 10:58> Provider Comments Moderate protein calorie malnutrition <Neftaly Manzano MD - Last Filed: 10/12/25 18:52>
[2025-10-08 11:04] LABS: Anion Gap 7 mmol/L (4-12); Blood Urea Nitrogen 16 mg/dL (7-17); Calcium 9.3 mg/dL (8.4-10.2); Carbon Dioxide 25 mmol/L (22-30); Chloride 102 mmol/L (98-107); Estimated CRCL calculation 6 ml/min; Estimated Glomerular Filt Rate 5; Glucose 256 mg/dL (65-110); Potassium 3.9 mmol/L (3.4-5.0); Sodium 134 mmol/L (137-145)
--- NOTE | 2025-10-08 11:06 | PC.NURSE ---
POC result of 169 was drawn directly from peripheral IV access once Vascular Acces RN inserted. POC result of 342 was also peripheral IV access blood draw. Bobby, primary RN, notified Hospitalist and left voicemail for Customer Loyalty Representative regarding fluctuating blood glucose results. See labs.
--- NOTE | 2025-10-08 14:58 | PCNEURO ---
Spoke with nurse about performing EEG. Patient is currently at dialysis (until after 5:00pm) and will have to be completed tomorrow 10/09.
--- NOTE | 2025-10-08 15:24 | P.PNNP_ITS ---
Progress Note: A&P Assessment and Plan (1) End stage renal disease: Code(s): N18.6 - End stage renal disease Status: Chronic Assessment and Plan: * HD underway * Volume status looks okay. removing some fluid on HD today * Potassium bicarbonate and BUN are all in good shape. (2) Altered mental status: Code(s): R41.82 - Altered mental status, unspecified Status: Acute Assessment and Plan: * improvement noted (but still confused) * initially noted at her nursing facility and in ER on admission * has a history of fluctuating to extremes... * due to infection? (elevated WBC noted on admission - has normalized) * follow culture data - blood cultures negative to date - urine culture negative * admission CT scan with pancolitis * on Zosyn and vancomycin * follow trend of mentation (3) History of CVA (cerebrovascular accident): Code(s): Z86.73 - Personal history of transient ischemic attack (TIA), and cerebral infarction without residual deficits Status: Chronic Assessment and Plan: * as noted earlier this month * s/p hospitalization at [facility] and [facility] with imaging noted: * head CT which showed chronic infarcts but no acute hemorrhage * MRI of the brain revealed a new left frontal subcortical infarct with evidence of chronic small vessel ischemic changes and prior right parietal infarct * MRI/MRA of the brain and neck demonstrated 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, occlusion of the superior left intracranial vertebral artery, and multifocal stenosis of the anterior and posterior circulations, raising concern for intracranial atherosclerotic disease * diagnostic cerebral angiogram showed multiple alternating areas of moderate to severe stenosis with a beading pattern in both anterior and posterior circulations representing multifocal intracranial atherosclerosis * likely playing a role with #2 * on ticagrelor in addition to aspirin with high intensity statin therapy * Neurology following * repeat MRI ordered but not done yet * continue supportive therapy (4) Anemia: Qualifiers: Anemia type: due to chronic kidney disease Chronic kidney disease stage: stage 5 (GFR < 15), not on chronic dialysis Qualified Code(s): N18.5 - Chronic kidney disease, stage 5; D63.1 - Anemia in chronic kidney disease Code(s): D64.9 - Anemia, unspecified Status: Acute Assessment and Plan: * due to ESRD * Epogen with dialysis * follow trend of H/H (5) Hypertension: Qualifiers: Hypertension type: secondary to other renal disorders Qualified Code(s): I15.1 - Hypertension secondary to other renal disorders; N28.89 - Other specified disorders of kidney and ureter Code(s): I10 - Essential (primary) hypertension Status: Chronic Assessment and Plan: * systolic 94-130 * follow trend of hemodynamics (6) Diabetes: Code(s): E11.9 - Type 2 diabetes mellitus without complications Status: Chronic Assessment and Plan: * follow accu-cheks * glycemic control per hospitalist Will continue to follow. Subjective Date/time seen: 10/08/25 15:24 Interval history: patient is alert. More interactive but still confused. on Hd ifeanyi it well. seen at 1:30pm Exam Narrative: General: elderly but WD/WN female in NAD Heart: normal S1 and S2; no rub Lungs: clear and symmetric Abdomen: soft, nontender, nondistended, positive bowel sounds Extremities: no edema Skin: no rash Objective Data Vital Signs Vital Signs: Vital Signs - 24 hr 10/07/25 16:00 10/07/25 16:38 10/07/25 20:00 Temperature Pulse Rate 58 L 66 62 Respiratory Rate Blood Pressure Pulse Oximetry 10/07/25 22:00 10/08/25 00:00 10/08/25 04:00 Temperature 97.6 F Pulse Rate 57 L 58 L 61 Respiratory Rate 16 Blood Pressure 132/70 Pulse Oximetry 100 10/08/25 06:00 10/08/25 07:57 10/08/25 12:00 Temperature 97.8 F Pulse Rate 60 60 80 Respiratory Rate 20 Blood Pressure 144/70 H Pulse Oximetry 99 10/08/25 13:28 10/08/25 13:38 10/08/25 13:45 Temperature 96.8 F L Pulse Rate 86 63 76 Respiratory Rate 16 Blood Pressure 115/97 H 145/78 H 132/105 H Pulse Oximetry 100 10/08/25 14:00 10/08/25 14:15 10/08/25 14:30 Temperature Pulse Rate 83 80 90 Respiratory Rate Blood Pressure 127/79 117/76 117/74 Pulse Oximetry 10/08/25 14:45 Temperature Pulse Rate 94 Respiratory Rate Blood Pressure 120/74 Pulse Oximetry Intake/Output Intake/Output: Intake & Output 10/05/25 10/06/25 10/07/25 10/08/25 23:59 23:59 23:59 23:59 Intake Total 1060 340 600 600 Output Total 510 0 Balance 1060 -170 600 600 Meds/Results Medications: Active Medications Generic Name Dose Route Start Last Admin Trade Name Freq PRN Reason Stop Dose Admin Aspirin 81 mg 10/02/25 12:25 10/08/25 10:35 Aspirin 81 Mg Enteric Tablet PO 81 mg QAM RAVI Administration Atorvastatin Calcium 80 mg 10/02/25 12:25 10/08/25 10:35 Atorvastatin 40 Mg Tablet PO 80 mg DAILY RAVI Administration Carvedilol 25 mg 10/02/25 17:00 10/08/25 10:39 Carvedilol 25 Mg Tablet PO 25 mg BIDWM RAVI Administration Cinacalcet 30 mg 10/02/25 12:20 10/08/25 10:37 Cinacalcet 30 Mg Tablet PO 30 mg QAM RAVI Administration Dextrose 12.5 gm 10/02/25 16:16 Dextrose 50% 25 Gm/50 Ml Syringe IV PUSH PRN PRN Hypoglycemia Protocol Folic Acid 1 mg 10/02/25 12:25 10/08/25 10:35 Folic Acid 1 Mg Tablet PO 1 mg DAILY RAVI Administration Glucagon 1 mg 10/02/25 16:16 Glucagon For Inj 1 Mg Vial IM PRN PRN Hypoglycemia Protocol Glucose 15 gm 10/02/25 16:16 Glucose Oral Gel 15 Gm Of Glucse In 37.5 Gm Tube PO PRN PRN Hypoglycemia Protocol Heparin Sodium (Porcine) 5,000 units 10/02/25 11:30 10/08/25 10:35 Heparin Sodium 5,000 Units/Ml Vial SUB-Q 5,000 units Q12HR RAVI Administration Dextrose 1,000 mls @ 100 mls/hr 10/02/25 16:16 Dextrose 5% 1,000 Ml IVPB PRN PRN Hypoglycemia Protocol Albumin Human 50 mls @ 999 mls/hr 10/04/25 01:23 Albutein IVPB 11/03/25 01:22 Q10M PRN HYPOTENSION Piperacillin Sod/Tazobactam 50 mls @ 100 mls/hr 10/07/25 08:00 10/07/25 23:01 Sod 2.25 gm/ Sodium Chloride IVPB 100 mls/hr Q8H RAVI Administration Insulin Aspart 2 - 5 units 10/02/25 17:00 10/08/25 13:34 Insulin Aspart (*Bkc) 100 Units/Ml SUB-Q Not Given TIDWM [facility] Protocol Pantoprazole Sodium 20 mg 10/02/25 09:00 10/08/25 10:37 Pantoprazole Sod Sesquihydrate 20 Mg Tab PO 20 mg QAM RAVI Administration Ticagrelor 90 mg 10/02/25 21:00 10/07/25 20:50 Ticagrelor 90 Mg Tablet PO 90 mg HS RAVI Administration Venlafaxine HCl 150 mg 10/02/25 21:00 10/07/25 20:50 Venlafaxine Hcl Xr 75 Mg Cap.Er.24h PO 150 mg HS RAVI Administration Radiology Results: ITS Impressions Head CT 10/02/25 07:24 IMPRESSION: 1. No acute intracranial findings. Chest/Abdomen/Pelvis CTA 10/02/25 07:31 IMPRESSION: 1. No pulmonary embolus. 2. Small pericardial effusion. 3. Pancolitis. Labs Labs: Laboratory Results - last 24 hr 10/07/25 10/07/25 10/08/25 16:37 21:47 06:28 WBC 7.1 RBC 4.12 L Hgb 11.8 L Hct 39.2 MCV 95.1 MCH 28.6 MCHC 30.1 L RDW 15.1 H Plt Count 306 MPV 10.7 H Sodium 136 L Potassium 4.9 Chloride 105 Carbon Dioxide 21 L Anion Gap 10 BUN 16 Creatinine 7.37 H Estim Creat Clear Calc 6 Estimated GFR 6 L Glucose 70 POC Capillary Glucose 76 103 Calcium 10.0 Phosphorus 5.0 H Albumin 3.7 10/08/25 10/08/25 10/08/25 07:31 08:18 08:46 WBC RBC Hgb Hct MCV MCH MCHC RDW Plt Count MPV Sodium Potassium Chloride Carbon Dioxide Anion Gap BUN Creatinine Estim Creat Clear Calc Estimated GFR Glucose POC Capillary Glucose 61 L 52 L* 169 H Calcium Phosphorus Albumin 10/08/25 10/08/25 10/08/25 09:06 09:11 10:29 WBC RBC Hgb Hct MCV MCH MCHC RDW Plt Count MPV Sodium 134 L Potassium 3.9 Chloride 102 Carbon Dioxide 25 Anion Gap 7 BUN 16 Creatinine 7.80 H Estim Creat Clear Calc 6 Estimated GFR 5 L Glucose 256 H POC Capillary Glucose 81 342 H Calcium 9.3 Phosphorus Albumin
--- NOTE | 2025-10-08 15:28 | P.PNIM_ITS ---
Assessment and Plan Assessment and Plan (1) UTI (urinary tract infection): Code(s): N39.0 - Urinary tract infection, site not specified Status: Acute Assessment and Plan: Blood and urine culture and IV antibiotic. Blood culture no growth to date. On vancomycin and Zosyn Leukocytosis improving No UA done showed no UTI Straight cath to get urine sample obtained 10/04/2025 culture came back with no growth stopped vancomycin 10/06/2025. (2) AMS (altered mental status): Code(s): R41.82 - Altered mental status, unspecified Status: Inactive Assessment and Plan: Most likely from urine tract infection. Continue to monitor Possible behavioral issues. family reports recurrent stroke on dapt now. MRI ordered which is refused by family. Patient mostly at baseline per family Neurology consulted and appreciate their recommendations EEG planned Discussed with Neurology (3) End-stage renal disease on hemodialysis: Code(s): N18.6 - End stage renal disease; Z99.2 - Dependence on renal dialysis Status: Acute Assessment and Plan: Continue hemodialysis as scheduled. (4) History of CVA (cerebrovascular accident): Code(s): Z86.73 - Personal history of transient ischemic attack (TIA), and cerebral infarction without residual deficits Status: Chronic Assessment and Plan: Stable, continue current treatment Plan 65-year-old female brought via EMS for altered mental status. She is alert and oriented x1 at baseline. Patient had abnormal vital signs including blood pressure of 70/40 and oxygen saturation of 77% after returning from dialysis. She has significant medical history of stroke after Thanksgiving resulting in her decrease in mental status just released from [facility] to [facility]. CT head with no acute intracranial abnormality. CTA chest abdomen pelvis with small pericardial effusion and pancolitis. Started on IV Zosyn. Labs revealed leukocytosis of 17.4 hemoglobin of 10.9 platelet of 225. Metabolic panel demonstrated minimal changes compared to patient's baseline. D-dimer 3.3 CRP 6.9 flu COVID RSV was negative. Patient treated for pancolitis with IV Zosyn. Was switched to oral Augmentin Code status DNR. DVT prophylaxis heparin Subjective Date/time seen: 10/08/25 15:28 Interval history: No overnight events. Patient remains confused. Getting dialysis this afternoon. Remains afebrile. Review of Systems Review of Systems: All systems reviewed & are unremarkable except as noted in HPI and below (the history and physical exam.) Exam Narrative: GENERAL: No acute distress. HEAD: Normocephalic, atraumatic. EYES: PERRLA and EOMI. NECK: Supple. No adenopathy or masses. No carotid bruits or JVD CHEST: Clear to auscultation. No respiratory distress. No wheezes rales or rhonchi HEART: Regular rhythm. No murmur heard. Normal peripheral pulses. ABDOMEN: Soft, nontender, nondistended, normal active bowel sounds. BACK: No abnormalities. EXTREMITIES: Normal range of motion. No edema. Left-sided weakness SKIN: Warm, dry, no rash. NEURO: Alert and awake remains confused PSYCH: Normal mood and affect Objective Data Vital Signs Vital Signs: Vital Signs - 24 hr 10/07/25 16:00 10/07/25 16:38 10/07/25 20:00 Temperature Pulse Rate 58 L 66 62 Respiratory Rate Blood Pressure Pulse Oximetry 10/07/25 22:00 10/08/25 00:00 10/08/25 04:00 Temperature 97.6 F Pulse Rate 57 L 58 L 61 Respiratory Rate 16 Blood Pressure 132/70 Pulse Oximetry 100 10/08/25 06:00 10/08/25 07:57 10/08/25 12:00 Temperature 97.8 F Pulse Rate 60 60 80 Respiratory Rate 20 Blood Pressure 144/70 H Pulse Oximetry 99 10/08/25 13:28 10/08/25 13:38 10/08/25 13:45 Temperature 96.8 F L Pulse Rate 86 63 76 Respiratory Rate 16 Blood Pressure 115/97 H 145/78 H 132/105 H Pulse Oximetry 100 10/08/25 14:00 10/08/25 14:15 10/08/25 14:30 Temperature Pulse Rate 83 80 90 Respiratory Rate Blood Pressure 127/79 117/76 117/74 Pulse Oximetry 10/08/25 14:45 Temperature Pulse Rate 94 Respiratory Rate Blood Pressure 120/74 Pulse Oximetry Intake/Output Intake/Output: Intake & Output 10/05/25 10/06/25 10/07/25 10/08/25 23:59 23:59 23:59 23:59 Intake Total 1060 340 600 600 Output Total 510 0 Balance 1060 -170 600 600 Meds/Results Medications: Active Medications Generic Name Dose Route Start Last Admin Trade Name Freq PRN Reason Stop Dose Admin Aspirin 81 mg 10/02/25 12:25 10/08/25 10:35 Aspirin 81 Mg Enteric Tablet PO 81 mg QAM RAVI Administration Atorvastatin Calcium 80 mg 10/02/25 12:25 10/08/25 10:35 Atorvastatin 40 Mg Tablet PO 80 mg DAILY RAVI Administration Carvedilol 25 mg 10/02/25 17:00 10/08/25 10:39 Carvedilol 25 Mg Tablet PO 25 mg BIDWM RAVI Administration Cinacalcet 30 mg 10/02/25 12:20 10/08/25 10:37 Cinacalcet 30 Mg Tablet PO 30 mg QAM RAVI Administration Dextrose 12.5 gm 10/02/25 16:16 Dextrose 50% 25 Gm/50 Ml Syringe IV PUSH PRN PRN Hypoglycemia Protocol Folic Acid 1 mg 10/02/25 12:25 10/08/25 10:35 Folic Acid 1 Mg Tablet PO 1 mg DAILY RAVI Administration Glucagon 1 mg 10/02/25 16:16 Glucagon For Inj 1 Mg Vial IM PRN PRN Hypoglycemia Protocol Glucose 15 gm 10/02/25 16:16 Glucose Oral Gel 15 Gm Of Glucse In 37.5 Gm Tube PO PRN PRN Hypoglycemia Protocol Heparin Sodium (Porcine) 5,000 units 10/02/25 11:30 10/08/25 10:35 Heparin Sodium 5,000 Units/Ml Vial SUB-Q 5,000 units Q12HR RAVI Administration Dextrose 1,000 mls @ 100 mls/hr 10/02/25 16:16 Dextrose 5% 1,000 Ml IVPB PRN PRN Hypoglycemia Protocol Albumin Human 50 mls @ 999 mls/hr 10/04/25 01:23 Albutein IVPB 11/03/25 01:22 Q10M PRN HYPOTENSION Piperacillin Sod/Tazobactam 50 mls @ 100 mls/hr 10/07/25 08:00 10/07/25 23:01 Sod 2.25 gm/ Sodium Chloride IVPB 100 mls/hr Q8H RAVI Administration Insulin Aspart 2 - 5 units 10/02/25 17:00 10/08/25 13:34 Insulin Aspart (*Bkc) 100 Units/Ml SUB-Q Not Given TIDWM RAVI Protocol Pantoprazole Sodium 20 mg 10/02/25 09:00 10/08/25 10:37 Pantoprazole Sod Sesquihydrate 20 Mg Tab PO 20 mg QAM RAVI Administration Ticagrelor 90 mg 10/02/25 21:00 10/07/25 20:50 Ticagrelor 90 Mg Tablet PO 90 mg HS RAVI Administration Venlafaxine HCl 150 mg 10/02/25 21:00 10/07/25 20:50 Venlafaxine Hcl Xr 75 Mg Cap.Er.24h PO 150 mg HS RAVI Administration Radiology Results: ITS Impressions Head CT 10/02/25 07:24 IMPRESSION: 1. No acute intracranial findings. Chest/Abdomen/Pelvis CTA 10/02/25 07:31 IMPRESSION: 1. No pulmonary embolus. 2. Small pericardial effusion. 3. Pancolitis. Labs Labs: Laboratory Results - last 24 hr 10/07/25 10/07/25 10/08/25 16:37 21:47 06:28 WBC 7.1 RBC 4.12 L Hgb 11.8 L Hct 39.2 MCV 95.1 MCH 28.6 MCHC 30.1 L RDW 15.1 H Plt Count 306 MPV 10.7 H Sodium 136 L Potassium 4.9 Chloride 105 Carbon Dioxide 21 L Anion Gap 10 BUN 16 Creatinine 7.37 H Estim Creat Clear Calc 6 Estimated GFR 6 L Glucose 70 POC Capillary Glucose 76 103 Calcium 10.0 Phosphorus 5.0 H Albumin 3.7 10/08/25 10/08/25 10/08/25 07:31 08:18 08:46 WBC RBC Hgb Hct MCV MCH MCHC RDW Plt Count MPV Sodium Potassium Chloride Carbon Dioxide Anion Gap BUN Creatinine Estim Creat Clear Calc Estimated GFR Glucose POC Capillary Glucose 61 L 52 L* 169 H Calcium Phosphorus Albumin 10/08/25 10/08/25 10/08/25 09:06 09:11 10:29 WBC RBC Hgb Hct MCV MCH MCHC RDW Plt Count MPV Sodium 134 L Potassium 3.9 Chloride 102 Carbon Dioxide 25 Anion Gap 7 BUN 16 Creatinine 7.80 H Estim Creat Clear Calc 6 Estimated GFR 5 L Glucose 256 H POC Capillary Glucose 81 342 H Calcium 9.3 Phosphorus Albumin
--- NOTE | 2025-10-08 16:30 | WPDNEUROPN ---
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 Exam significant for mild right-sided weakness and aphasia. I did contact her sister who states that the patient's exam has actually slightly improved since her hospitalization at the end of August which she had her most recent stroke. She is currently on optimal medical management on DAPT and statin. The family does not want to pursue any other images given slight improvement in mentation. They also do not think that it would plant changer which I do agree with. Will add a TSH RPR and ammonia evaluate for any metabolic encephalopathy Will also do an EEG to assess for subclinical seizure contributing to her mentation Subjective Date/time seen: 10/08/25 16:30 Interval history: HPI: Taken from initial consult note on 10/05 Gena Pierre is a 65 year old female With history of chronic kidney disease presented to the hospital with altered mental status. her blood pressure was 90/40 and oxygen saturation was 77% white cell count high at 17.2. The patient has been on dialysis for chronic kidney disease. Also history of diabetes mellitus. She has had a CVA earlier this year and I saw her in hospital on 04/04/2025 and noted that she had left homonymous hemianopsia. Her CT scan of brain has shown acute infarct in the right cerebral hemisphere in the parietal occipital region. The patient has been on aspirin, Plavix and Lipitor 80 mg a day. Recently she was hospitalized again at [facility] where she was transferred to [facility] in view of significant cerebrovascular disease. The consultation note from the new neurologist at [facility] was available and was indeed helpful. 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 No intervention was done however medications were adjusted while she was in [facility]. According to the family members she does have a normal mental status when she is not sick. They are aware of the left homonymous hemianopsia which had explained to them in March 2025. She is also suspected of urinary tract infection. Today her blood pressure improved to 108/57. 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 Since last seen. The patient remins the same. I did call her sister over the phone. He does state that she has been doing better in the past 3 days per minute patient remains the same since her stroke after Thanksgiving. In which she was hospitalized for. 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 Family does not want to pursue any further images. As they state that finding a new stroke wont chnage manegement Review of Systems Review of Systems: As per HPI all other are negative Exam Narrative: Neurological exam Mental status alert follows commands intermittently. Can nod head yes and no Cranial nerves which to threat bilaterally extraocular movements are intact no apparent facial asymmetry cranial nerves could not be evaluated due to the Muscle strength moves all 4 extremities spontaneously but not on command. Left more than right Reflexes plantar is upgoing on the right Const: General: no acute distress Eyes: EOM: EOMs intact bilaterally Objective Data Vital Signs Vital Signs: Vital Signs - 24 hr 10/07/25 16:38 10/07/25 20:00 10/07/25 22:00 Temperature 36.4 C Pulse Rate 66 62 57 L Respiratory Rate 16 Blood Pressure 132/70 Pulse Oximetry 100 Oxygen Delivery 10/08/25 00:00 10/08/25 04:00 10/08/25 06:00 Temperature 36.6 C Pulse Rate 58 L 61 60 Respiratory Rate 20 Blood Pressure 144/70 H Pulse Oximetry 99 Oxygen Delivery 10/08/25 07:57 10/08/25 08:00 10/08/25 12:00 Temperature Pulse Rate 60 80 Respiratory Rate Blood Pressure Pulse Oximetry Oxygen Delivery Room Air 10/08/25 13:28 10/08/25 13:38 10/08/25 13:45 Temperature 36.0 C L Pulse Rate 86 63 76 Respiratory Rate 16 Blood Pressure 115/97 H 145/78 H 132/105 H Pulse Oximetry 100 Oxygen Delivery 10/08/25 14:00 10/08/25 14:15 10/08/25 14:30 Temperature Pulse Rate 83 80 90 Respiratory Rate Blood Pressure 127/79 117/76 117/74 Pulse Oximetry Oxygen Delivery 10/08/25 14:45 10/08/25 15:00 10/08/25 15:15 Temperature Pulse Rate 94 89 90 Respiratory Rate Blood Pressure 120/74 112/72 98/66 L Pulse Oximetry Oxygen Delivery 10/08/25 15:30 10/08/25 15:45 10/08/25 16:00 Temperature Pulse Rate 79 86 87 Respiratory Rate Blood Pressure 122/74 115/74 110/74 Pulse Oximetry Oxygen Delivery Intake/Output Intake/Output: Intake & Output 10/05/25 10/06/25 10/07/25 10/08/25 23:59 23:59 23:59 23:59 Intake Total 1060 340 600 600 Output Total 510 5 Balance 1060 -170 600 595 Meds/Results Medications: Active Medications Generic Name Dose Route Start Last Admin Trade Name Freq PRN Reason Stop Dose Admin Amoxicillin/Clavulanate Potassium 1 tablet 10/09/25 09:00 Amoxicillin/Clavulanate K 500-125 Mg Tab PO DAILY RAVI Aspirin 81 mg 10/02/25 12:25 10/08/25 10:35 Aspirin 81 Mg Enteric Tablet PO 81 mg QAM RAVI Administration Atorvastatin Calcium 80 mg 10/02/25 12:25 10/08/25 10:35 Atorvastatin 40 Mg Tablet PO 80 mg DAILY RAVI Administration Carvedilol 25 mg 10/02/25 17:00 10/08/25 10:39 Carvedilol 25 Mg Tablet PO 25 mg BIDWM RAVI Administration Cinacalcet 30 mg 10/02/25 12:20 10/08/25 10:37 Cinacalcet 30 Mg Tablet PO 30 mg QAM RAVI Administration Dextrose 12.5 gm 10/02/25 16:16 Dextrose 50% 25 Gm/50 Ml Syringe IV PUSH PRN PRN Hypoglycemia Protocol Folic Acid 1 mg 10/02/25 12:25 10/08/25 10:35 Folic Acid 1 Mg Tablet PO 1 mg DAILY RAVI Administration Glucagon 1 mg 10/02/25 16:16 Glucagon For Inj 1 Mg Vial IM PRN PRN Hypoglycemia Protocol Glucose 15 gm 10/02/25 16:16 Glucose Oral Gel 15 Gm Of Glucse In 37.5 Gm Tube PO PRN PRN Hypoglycemia Protocol Heparin Sodium (Porcine) 5,000 units 10/02/25 11:30 10/08/25 10:35 Heparin Sodium 5,000 Units/Ml Vial SUB-Q 5,000 units Q12HR RAVI Administration Dextrose 1,000 mls @ 100 mls/hr 10/02/25 16:16 Dextrose 5% 1,000 Ml IVPB PRN PRN Hypoglycemia Protocol Albumin Human 50 mls @ 999 mls/hr 10/04/25 01:23 Albutein IVPB 11/03/25 01:22 Q10M PRN HYPOTENSION Insulin Aspart 2 - 5 units 10/02/25 17:00 10/08/25 13:34 Insulin Aspart (*Bkc) 100 Units/Ml SUB-Q Not Given TIDWM RAVI Protocol Pantoprazole Sodium 20 mg 10/02/25 09:00 10/08/25 10:37 Pantoprazole Sod Sesquihydrate 20 Mg Tab PO 20 mg QAM RAVI Administration Ticagrelor 90 mg 10/02/25 21:00 10/07/25 20:50 Ticagrelor 90 Mg Tablet PO 90 mg HS RAVI Administration Venlafaxine HCl 150 mg 10/02/25 21:00 10/07/25 20:50 Venlafaxine Hcl Xr 75 Mg Cap.Er.24h PO 150 mg HS RAVI Administration Radiology Results: ITS Impressions Head CT 10/02/25 07:24 IMPRESSION: 1. No acute intracranial findings. Chest/Abdomen/Pelvis CTA 10/02/25 07:31 IMPRESSION: 1. No pulmonary embolus. 2. Small pericardial effusion. 3. Pancolitis. Labs Labs: Laboratory Results - last 24 hr 10/07/25 10/07/25 10/08/25 16:37 21:47 06:28 WBC 7.1 RBC 4.12 L Hgb 11.8 L Hct 39.2 MCV 95.1 MCH 28.6 MCHC 30.1 L RDW 15.1 H Plt Count 306 MPV 10.7 H Sodium 136 L Potassium 4.9 Chloride 105 Carbon Dioxide 21 L Anion Gap 10 BUN 16 Creatinine 7.37 H Estim Creat Clear Calc 6 Estimated GFR 6 L Glucose 70 POC Capillary Glucose 76 103 Calcium 10.0 Phosphorus 5.0 H Albumin 3.7 10/08/25 10/08/25 10/08/25 07:31 08:18 08:46 WBC RBC Hgb Hct MCV MCH MCHC RDW Plt Count MPV Sodium Potassium Chloride Carbon Dioxide Anion Gap BUN Creatinine Estim Creat Clear Calc Estimated GFR Glucose POC Capillary Glucose 61 L 52 L* 169 H Calcium Phosphorus Albumin 10/08/25 10/08/25 10/08/25 09:06 09:11 10:29 WBC RBC Hgb Hct MCV MCH MCHC RDW Plt Count MPV Sodium 134 L Potassium 3.9 Chloride 102 Carbon Dioxide 25 Anion Gap 7 BUN 16 Creatinine 7.80 H Estim Creat Clear Calc 6 Estimated GFR 5 L Glucose 256 H POC Capillary Glucose 81 342 H Calcium 9.3 Phosphorus Albumin
[2025-10-08] MEDS: EPOETIN ALFA-EPBX 10,000 UNITS/ML VIAL 10000 UNITS IV PUSH (16:56)
[2025-10-08 20:29] LABS: Ammonia < 9 umol/L (9-30)
[2025-10-08 20:56] LABS: Syphilis IgG/IgM Antibody Non-Reactive (Nonreactive)
[2025-10-08] MEDS: VENLAFAXINE HCL XR 75 MG CAP.ER.24H 150 MG PO (21:14)
[2025-10-08] MEDS: TICAGRELOR 90 MG TABLET PO (21:15)
[2025-10-08 21:22] LABS: Thyroid Stimulating Hormone Reflex 2.170 uIU/mL (0.465-4.68)
[2025-10-09] VITALS (7 sets, daily range): BP systolic 110–111; BP diastolic 57; PULSE 78–98; RESP 16–18; TEMP 36.1; O2SAT 100
[2025-10-09] MEDS: FOLIC ACID 1 MG TABLET PO (09:09)
[2025-10-09] MEDS: ASPIRIN 81 MG ENTERIC TABLET PO (09:09)
[2025-10-09] MEDS: ATORVASTATIN 40 MG TABLET 80 MG PO (09:10)
--- NOTE | 2025-10-09 10:39 | PCNFU ---
Nutrition Follow-Up Complete: Moderate protein calorie malnutrition related to inadequate energy intake as evidenced by a -16% weight loss x 5 months, poor po intake for greater than 1 month. Goal: PO intake 50% or greater Patient will continue current goal. Pt current nutrition is Regular. Last recorded weight is 67.3 kg, down from 70 gm on admit. Bowel Motility: +BM reported 10/09 Labs Reviewed: No new labs to report. Meds Noted: Protonix, Folic Acid, NovoLog. Skin: WNL Additional Notes: Patient remains on a regular diet. Oral Intake 0-25% of meals. PO intake is encouraged. Dairy allergy noted. Agree with diet orders. Monitor intake, wt, labs. follow up in 3 days.
--- NOTE | 2025-10-09 12:02 | P.PNNP_ITS ---
Progress Note: A&P Assessment and Plan (1) End stage renal disease: Code(s): N18.6 - End stage renal disease Status: Chronic Assessment and Plan: * HD due on Tuesday * she did well yesterday * Volume status looks okay. removing some fluid on HD today * Potassium bicarbonate and BUN are all in good shape. (2) Altered mental status: Code(s): R41.82 - Altered mental status, unspecified Status: Acute Assessment and Plan: * improvement noted (but still not herself) * admission CT scan with pancolitis * due to infection? (elevated WBC noted on admission - has normalized) * blood cultures negative to date - urine culture negative * TSH and ammonia levels okay * on Zosyn and vancomycin * gradually improving (3) History of CVA (cerebrovascular accident): Code(s): Z86.73 - Personal history of transient ischemic attack (TIA), and cerebral infarction without residual deficits Status: Chronic Assessment and Plan: * as noted earlier this month * s/p hospitalization at [facility] and [facility] with imaging noted: * head CT which showed chronic infarcts but no acute hemorrhage * MRI of the brain revealed a new left frontal subcortical infarct with evidence of chronic small vessel ischemic changes and prior right parietal infarct * MRI/MRA of the brain and neck demonstrated 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, occlusion of the superior left intracranial vertebral artery, and multifocal stenosis of the anterior and posterior circulations, raising concern for intracranial atherosclerotic disease * diagnostic cerebral angiogram showed multiple alternating areas of moderate to severe stenosis with a beading pattern in both anterior and posterior circulations representing multifocal intracranial atherosclerosis * likely playing a role with #2 * on ticagrelor in addition to aspirin with high intensity statin therapy * Neurology following * repeat MRI ordered but not done yet * continue supportive therapy (4) Anemia: Qualifiers: Anemia type: due to chronic kidney disease Chronic kidney disease stage: stage 5 (GFR < 15), not on chronic dialysis Qualified Code(s): N18.5 - Chronic kidney disease, stage 5; D63.1 - Anemia in chronic kidney disease Code(s): D64.9 - Anemia, unspecified Status: Acute Assessment and Plan: * due to ESRD * Epogen with dialysis * follow trend of H/H (5) Hypertension: Qualifiers: Hypertension type: secondary to other renal disorders Qualified Code(s): I15.1 - Hypertension secondary to other renal disorders; N28.89 - Other specified disorders of kidney and ureter Code(s): I10 - Essential (primary) hypertension Status: Chronic Assessment and Plan: * systolic 97-120 * follow trend of hemodynamics (6) Diabetes: Code(s): E11.9 - Type 2 diabetes mellitus without complications Status: Chronic Assessment and Plan: * follow accu-cheks * glycemic control per hospitalist Will continue to follow. Subjective Date/time seen: 10/09/25 12:02 Interval history: patient is feeling better. More talkative. Not herself but getting better. Cousin in the room Exam Narrative: General: WD/WN female in NAD Heart: normal S1 and S2; no rub Lungs: clear and symmetric Abdomen: soft, nontender, nondistended, positive bowel sounds Extremities: no edema Skin: no rash Objective Data Vital Signs Vital Signs: Vital Signs - 24 hr 10/08/25 13:28 10/08/25 13:38 10/08/25 13:45 Temperature 96.8 F L Pulse Rate 86 63 76 Respiratory Rate 16 Blood Pressure 115/97 H 145/78 H 132/105 H Pulse Oximetry 100 Oxygen Delivery 10/08/25 14:00 10/08/25 14:15 10/08/25 14:30 Temperature Pulse Rate 83 80 90 Respiratory Rate Blood Pressure 127/79 117/76 117/74 Pulse Oximetry Oxygen Delivery 10/08/25 14:45 10/08/25 15:00 10/08/25 15:15 Temperature Pulse Rate 94 89 90 Respiratory Rate Blood Pressure 120/74 112/72 98/66 L Pulse Oximetry Oxygen Delivery 10/08/25 15:30 10/08/25 15:45 10/08/25 16:00 Temperature Pulse Rate 79 86 87 Respiratory Rate Blood Pressure 122/74 115/74 110/74 Pulse Oximetry Oxygen Delivery 10/08/25 16:00 10/08/25 16:15 10/08/25 16:30 Temperature Pulse Rate 91 102 H 98 Respiratory Rate Blood Pressure 107/70 101/67 Pulse Oximetry Oxygen Delivery 10/08/25 16:45 10/08/25 17:00 10/08/25 17:09 Temperature Pulse Rate 107 H 89 90 Respiratory Rate Blood Pressure 97/81 L 105/73 112/73 Pulse Oximetry Oxygen Delivery 10/08/25 17:13 10/08/25 20:00 10/08/25 20:00 Temperature 98.2 F Pulse Rate 78 94 Respiratory Rate 12 Blood Pressure 120/75 Pulse Oximetry Oxygen Delivery Room Air 10/08/25 20:35 10/09/25 00:00 10/09/25 04:00 Temperature 98.1 F Pulse Rate 95 98 95 Respiratory Rate 18 Blood Pressure 115/75 Pulse Oximetry 96 Oxygen Delivery 10/09/25 06:00 10/09/25 09:10 Temperature 97.0 F L Pulse Rate 92 92 Respiratory Rate 18 Blood Pressure 111/57 L Pulse Oximetry 100 Oxygen Delivery Intake/Output Intake/Output: Intake & Output 10/06/25 10/07/25 10/08/25 10/09/25 23:59 23:59 23:59 23:59 Intake Total 109 522 6133 60 Output Total 510 1005 0 Balance -170 600 285 60 Meds/Results Medications: Active Medications Generic Name Dose Route Start Last Admin Trade Name Freq PRN Reason Stop Dose Admin Amoxicillin/Clavulanate Potassium 1 tablet 10/09/25 09:00 10/09/25 09:09 Amoxicillin/Clavulanate K 500-125 Mg Tab PO 1 tablet DAILY RAVI Administration Aspirin 81 mg 10/02/25 12:25 10/09/25 09:09 Aspirin 81 Mg Enteric Tablet PO 81 mg QAM RAVI Administration Atorvastatin Calcium 80 mg 10/02/25 12:25 10/09/25 09:10 Atorvastatin 40 Mg Tablet PO 80 mg DAILY RAVI Administration Carvedilol 25 mg 10/02/25 17:00 10/09/25 09:10 Carvedilol 25 Mg Tablet PO 25 mg BIDWM RAVI Administration Cinacalcet 30 mg 10/02/25 12:20 10/09/25 09:21 Cinacalcet 30 Mg Tablet PO Not Given QAM RAVI Dextrose 12.5 gm 10/02/25 16:16 Dextrose 50% 25 Gm/50 Ml Syringe IV PUSH PRN PRN Hypoglycemia Protocol Folic Acid 1 mg 10/02/25 12:25 10/09/25 09:09 Folic Acid 1 Mg Tablet PO 1 mg DAILY RAVI Administration Glucagon 1 mg 10/02/25 16:16 Glucagon For Inj 1 Mg Vial IM PRN PRN Hypoglycemia Protocol Glucose 15 gm 10/02/25 16:16 Glucose Oral Gel 15 Gm Of Glucse In 37.5 Gm Tube PO PRN PRN Hypoglycemia Protocol Heparin Sodium (Porcine) 5,000 units 10/02/25 11:30 10/09/25 09:10 Heparin Sodium 5,000 Units/Ml Vial SUB-Q 5,000 units Q12HR RAVI Administration Dextrose 1,000 mls @ 100 mls/hr 10/02/25 16:16 Dextrose 5% 1,000 Ml IVPB PRN PRN Hypoglycemia Protocol Albumin Human 50 mls @ 999 mls/hr 10/04/25 01:23 Albutein IVPB 11/03/25 01:22 Q10M PRN HYPOTENSION Insulin Aspart 2 - 5 units 10/02/25 17:00 10/09/25 09:12 Insulin Aspart (*Bkc) 100 Units/Ml SUB-Q Not Given TIDWM RAVI Protocol Pantoprazole Sodium 20 mg 10/02/25 09:00 10/09/25 09:22 Pantoprazole Sod Sesquihydrate 20 Mg Tab PO Not Given QAM RAVI Ticagrelor 90 mg 10/02/25 21:00 10/08/25 21:15 Ticagrelor 90 Mg Tablet PO 90 mg HS RAVI Administration Venlafaxine HCl 150 mg 10/02/25 21:00 10/08/25 21:14 Venlafaxine Hcl Xr 75 Mg Cap.Er.24h PO 150 mg HS RAVI Administration Radiology Results: ITS Impressions Head CT 10/02/25 07:24 IMPRESSION: 1. No acute intracranial findings. Chest/Abdomen/Pelvis CTA 10/02/25 07:31 IMPRESSION: 1. No pulmonary embolus. 2. Small pericardial effusion. 3. Pancolitis. Labs Labs: Laboratory Results - last 24 hr 10/08/25 10/08/25 10/08/25 16:46 20:08 20:39 POC Capillary Glucose 80 125 H Ammonia < 9 L TSH (Reflex) 2.170 Syphilis IgG/IgM Ab Non-reactive 10/09/25 10/09/25 07:36 11:30 POC Capillary Glucose 104 134 H Ammonia TSH (Reflex) Syphilis IgG/IgM Ab
[2025-10-09 14:20] LABS: Hematocrit 37.5 % (37.0-47.0); Hemoglobin 11.7 g/dL (12.0-15.0); Mean Corpuscular HGB Conc 31.2 g/dl (32-36); Mean Corpuscular Hemoglobin 28.7 pg (26-34); Mean Corpuscular Volume 92.1 fl (80-100); Platelet Count Result 281 k/mm3 (150-375); Red Blood Count 4.07 M/mm3 (4.2-5.4); White Blood Count 7.8 K/mm3 (4.5-10.0)
[2025-10-09 14:39] LABS: Alanine Aminotransferase 23 U/L (6-35); Albumin Level 3.6 g/dL (3.5-5.1); Alkaline Phosphatase 129 U/L (38-126); Anion Gap 5 mmol/L (4-12); Aspartate Amino Transferase 41 U/L (14-36); Bilirubin,Total 0.6 mg/dL (0.2-1.3); Blood Urea Nitrogen 11 mg/dL (7-17); Calcium 11.0 mg/dL (8.4-10.2); Carbon Dioxide 33 mmol/L (22-30); Chloride 98 mmol/L (98-107); Estimated CRCL calculation 7 ml/min; Estimated Glomerular Filt Rate 7; Glucose 144 mg/dL (65-110); Magnesium 2.0 mg/dL (1.6-2.3); Potassium 4.1 mmol/L (3.4-5.0); Sodium 136 mmol/L (137-145); Total Protein 6.8 g/dL (6.3-8.2)
--- NOTE | 2025-10-09 15:20 | P.DS_ITS ---
DS: Admitting Diagnosis Discharge Date 10/09/2025 Admitting Diagnosis Altered mental status/CVA/agrawal colitis/ESRD DS: Discharge Diagnosis Discharge Diagnosis (1) End stage renal disease: Code(s): N18.6 - End stage renal disease Status: Chronic (2) Altered mental status: Code(s): R41.82 - Altered mental status, unspecified Status: Acute (3) History of CVA (cerebrovascular accident): Code(s): Z86.73 - Personal history of transient ischemic attack (TIA), and cerebral infarction without residual deficits Status: Chronic (4) Anemia: Qualifiers: Anemia type: due to chronic kidney disease Chronic kidney disease stage: stage 5 (GFR < 15), not on chronic dialysis Qualified Code(s): N18.5 - Chronic kidney disease, stage 5; D63.1 - Anemia in chronic kidney disease Code(s): D64.9 - Anemia, unspecified Status: Acute (5) Hypertension: Qualifiers: Hypertension type: secondary to other renal disorders Qualified Code(s): I15.1 - Hypertension secondary to other renal disorders; N28.89 - Other specified disorders of kidney and ureter Code(s): I10 - Essential (primary) hypertension Status: Chronic (6) Diabetes: Code(s): E11.9 - Type 2 diabetes mellitus without complications Status: Chronic DS: Summary Hospital Course Reason for hospitalization: * Altered mental status, multifactorial (metabolic encephalopathy, infection, recent CVA) * Pancolitis * End-stage renal disease on hemodialysis * 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 77%) after dialysis. Baseline mental status is A&O x1. Initial evaluation revealed?leukocytosis (WBC 17.4)?and CTA chest/abdomen/pelvis showing?pancolitis?and a small pericardial effusion. CT head showed?no acute intracranial process. She was treated empirically with?IV vancomycin and Zosyn?after blood cultures. Cultures ultimately remained negative; urine culture showed no growth. Vancomycin was discontinued, and antibiotics were transitioned to?oral Augmentin?for pancolitis. Neurology was consulted for AMS in the setting of recent posterior circulation stroke and severe intracranial atherosclerotic disease. Mental status gradually improved but did not return fully to baseline. Family declined further neuroimaging and EEG, stating it would not tire changer aircraft. Metabolic workup including TSH, ammonia, and RPR was unremarkable. Nephrology followed throughout admission. The patient tolerated hemodialysis without complication, with stable volume and electrolyte status. Given overall clinical trajectory and significant cerebrovascular disease,?family discussed goals of care, including possible hospice consideration. Patient was provided order at discharge for EEG outpatient if they preferred to pursue. Hospice information provided and can be discussed at patient SNF. Patient was continued on ST/PT/OT at discharge for further rehabilitation needs. Status at Discharge Functional status at discharge: bed bound Overall status at discharge: patient is progressing back to baseline Time Spent with Patient Time attestation: Total time spent providing and/or coordinating discharge services: Time spent: Greater than 30 minutes Exam Narrative: GENERAL: No acute distress. HEAD: Normocephalic, atraumatic. EYES: PERRLA and EOMI. NECK: Supple. No adenopathy or masses. No carotid bruits or JVD CHEST: Clear to auscultation. No respiratory distress. No wheezes rales or rhonchi HEART: Regular rhythm. No murmur heard. Normal peripheral pulses. ABDOMEN: Soft, nontender, nondistended, normal active bowel sounds. BACK: No abnormalities. EXTREMITIES: Normal range of motion. No edema. Left-sided weakness SKIN: Warm, dry, no rash. NEURO: Alert and awake answered questions but withdrawn and quiet PSYCH: Normal mood and affect DS: Data Data Completed and Pending Labs on day of discharge: Labs from last 24 hours 10/09/25 10/09/25 10/09/25 14:13 11:30 07:36 WBC 7.8 RBC 4.07 L Hgb 11.7 L Hct 37.5 MCV 92.1 MCH 28.7 MCHC 31.2 L RDW 15.5 H Plt Count 281 MPV 10.0 Sodium 136 L Potassium 4.1 Chloride 98 Carbon Dioxide 33 H Anion Gap 5 BUN 11 D Creatinine 6.36 H Estim Creat Clear Calc 7 Estimated GFR 7 L Glucose 144 H POC Capillary Glucose 134 H 104 Calcium 11.0 H Magnesium 2.0 Total Bilirubin 0.6 AST 41 H ALT 23 Alkaline Phosphatase 129 H Ammonia Total Protein 6.8 Albumin 3.6 TSH (Reflex) Syphilis IgG/IgM Ab 10/08/25 10/08/25 10/08/25 20:39 20:08 16:46 WBC RBC Hgb Hct MCV MCH MCHC RDW Plt Count MPV Sodium Potassium Chloride Carbon Dioxide Anion Gap BUN Creatinine Estim Creat Clear Calc Estimated GFR Glucose POC Capillary Glucose 125 H 80 Calcium Magnesium Total Bilirubin AST ALT Alkaline Phosphatase Ammonia < 9 L Total Protein Albumin TSH (Reflex) 2.170 Syphilis IgG/IgM Ab Non-reactive Imaging Radiologist's impression: Radiology Results: ITS Impressions Head CT 10/02/25 07:24 IMPRESSION: 1. No acute intracranial findings. Chest/Abdomen/Pelvis CTA 10/02/25 07:31 IMPRESSION: 1. No pulmonary embolus. 2. Small pericardial effusion. 3. Pancolitis. Discharge Plan Discharge Attending physician on discharge: William Ocampo Consulting providers: James Millan; Shirley Brambila; Chuck Nava; William Ocampo; Neftaly Manzano; Praful Colmenares; Aura Feliciano; dAam Simmons; Joao Layne V. Discharging Clinician: Kathryn Cardenas Anticipated Discharge Date/Time: 10/09/25 14:04 Patient Disposition: NH Nursing Home/Asst Living Activity: as tolerated Diet: renal Discharge Instructions: 1). Likely secondary to CVA * MRI of the brain revealed a new left frontal subcortical infarct with evidence of chronic small vessel ischemic changes and prior right parietal infarct * Continue Atorvastatin and Brilinta * Please continue with speech therapy will need assistance with feedings and medications crushed * follow-up with Neurology outpatient if you would like to pursue EEG for evaluation of Seizures 2). ESRD * Plan for Dialysis Tuesday due to Holiday. * Monitor electrolytes and fluid intake * Renal diet * Follow-up with nephrology as scheduled 3) May set-up [facility] at patient facility who can assist in this process. How can you care for yourself at home? ? Keep track of any new symptoms or changes in your symptoms. ? Rest until you feel better. ? Be safe with medicines. Take your medicines exactly as prescribed. Call your doctor if you think you are having a problem with your medicine. ? Do not drive after taking a prescription pain medicine. ? Ensure to follow-up with primary care physician as indicated and provide updated medication list provided to you at discharge. When should you call for help? Call 911 anytime you think you may need emergency care. For example, call if: ? You passed out (lost consciousness). Call your doctor now or seek immediate medical care if: ? You have new symptoms like fever, difficulty breathing, Chest pain, vomiting, or rash. ? You have new or different pain. ? You are confused and are having trouble thinking clearly. ? Your symptoms are getting worse. Watch closely for changes in your health, and be sure to contact your doctor if: ? You do not get better as expected. Patient Instructions: Antibiotic Form Patient Language: Bahamian Stand Alone Forms: General Discharge Information, Residential Discharge Follow-up/Referrals: Monster Garza MD [Primary Care Provider, Family Practice] - 3 Weeks Discharge Medications: New amoxicillin-pot clavulanate [Augmentin] 500-125 mg Tablet 1 tablet PO DAILY Qty: 9 0RF Continued aspirin 81 mg Tablet,Delayed Release (Dr/Ec) 81 mg PO QAM Qty: 30 0RF cinacalcet [Sensipar] 30 mg Tablet 30 mg PO Q24H Qty: 30 0RF venlafaxine [Effexor XR] 150 mg capsule,extended release 24hr 150 mg PO HS folic acid 1 mg tablet 1 mg PO DAILY carvedilol [Coreg] 25 mg tablet 25 mg PO BID Rx Instructions: must administer with a meal/food ticagrelor 90 mg tablet 90 mg PO HS atorvastatin 40 mg Tablet 80 mg PO DAILY Other Ambulatory Orders: EEG (Routine) Timeframe: 1 Month Location: Determined by Patient Ordered By: Kathryn Cardenas Date of admission: 10/02/25 17:43 Primary Care Provider: Monster Garza Admitting Provider: Merle Weiner Attending physician on admission: Kathryn Cardenas Condition: Stable Quality VTE Prophylaxis VTE prophylaxis: pharmacologic ordered - Patient's previous records reviewed on admission -ER notes reviewed in detail on admission -discussed all findings and current treatment plan with patient/Family/POA -Consultations reviewed for recommendations -Patient's disposition for safe discharge discussed with correctional case manager -radiology imaging, EKG and test results I have personally reviewed and interpreted unless otherwise specified Dictation performed by [employer] direct speech recognition software, therefore salesperson wigs variants and typographical errors may occur. Hospitalist MIPS Heart Failure (Exclusion) Patient has history of Heart Transplant or Left Ventricular Assistive Device?: No IF YES, STOP HERE Heart Failure (Qualifier) Patient has current or prior documentation of LVEF less than or equal to 40%, or mod/servere depressed LVSF?: No IF NO, STOP HERE
== END 2025-10-09 19:30 | DRG 56 ==
LOC: ANHED 21:19 → ANH3MEDSUR 10-02 08:33
PROVIDERS: Emergency Medicine; Internal Medicine; Internal Medicine Nephrology; Psychiatry & Neurology Neurology; Admitting Provider Internal Medicine; PCP Family Medicine Adolescent Medicine; Visit Provider Nurse Practitioner Family
DX: I69.318 Other symptoms and signs involving cognitive functions following cerebral infarction (principal); G93.41 Metabolic encephalopathy; N18.6 End stage renal disease; I12.0 Hypertensive chronic kidney disease with stage 5 chronic kidney disease or end stage renal disease; E44.0 Moderate protein-calorie malnutrition; I69.351 Hemiplegia and hemiparesis following cerebral infarction affecting right dominant side; I67.2 Cerebral atherosclerosis; I69.320 Aphasia following cerebral infarction; I69.391 Dysphagia following cerebral infarction; K52.9 Noninfective gastroenteritis and colitis, unspecified; E11.42 Type 2 diabetes mellitus with diabetic polyneuropathy; E11.22 Type 2 diabetes mellitus with diabetic chronic kidney disease; D63.1 Anemia in chronic kidney disease; E21.0 Primary hyperparathyroidism; R09.02 Hypoxemia; H53.462 Homonymous bilateral field defects, left side; Z20.822 Contact with and (suspected) exposure to COVID-19; Z66 Do not resuscitate; Z99.2 Dependence on renal dialysis; Z85.3 Personal history of malignant neoplasm of breast; Z79.82 Long term (current) use of aspirin; Z79.02 Long term (current) use of antithrombotics/antiplatelets; Z68.24 Body mass index [BMI] 24.0-24.9, adult
CPT/HCPCS: 36415; 70450; 71275; 74177; 80048; 80053; 80069; 80202; 82140; 82948; 83605; 83735; 84100; 84443; 85025; 85027; 85380; 85610; 85730; 86140; 86593; 86706; 87040; 87086; 87340; 87637; 87641; 93005; 96361; 96365; 96366; 99285; A9270; G0257; G0378; J1644; J2543; J3373; J7030; J7040; Q5105; Q9967